=== PATIENT | male | born 1945 | race Caucasian/White ===

== ENCOUNTER → 2016-07-28 | Outpatient (CLI) | payer OTHER, MEDICARE ==
[~2016-07-28] MED LIST: ASPCH81X PO; CLX20 PO; CLX40 PO; INSUINJ4 SQ; ISOS120T5 PO; NTRGSL/4 UT; NVLGI/PEN SQ; OXYC1TAB3 PO; PANT40TA PO; PROP10TA7 PO; PRVC40 PO; RANI300T PO; TOPI100T34 PO
[2016-07-28 14:03] LABS: BLOOD UREA NITROGEN 23 mg/dl (7-18); BUN/CREATININE RATIO 14.1 (10-20)
== END | disposition home or self-care (01) ==
LOC: C.LAB1850 12:08
PROVIDERS: ATTEND Urology
DX: N20.0 Calculus of kidney (principal)

== ENCOUNTER → 2016-08-09 | Outpatient (CLI) | payer OTHER, MEDICARE ==
[~2016-08-09] MED LIST changes: +OPTIRAY 300 IV PRN
--- NOTE | 2016-08-09 14:38 | DIAGNOSTIC IMAGING REPORT ---
IVP CLINICAL HISTORY: Right ureteral calculus. COMPARISON STUDY: CT of the abdomen and pelvis January 16, 2016, IVP February 28, 2016 and KUB June 08, 2016. TECHNIQUE: A production consultant KUB was initially obtained. An IVP was then performed following intravenous injection 100 cc of Optiray 300. FINDINGS: No urinary calculi are identified on the production consultant KUB. There are prostatic calcifications. Both nephrograms are symmetric. There is no hydronephrosis or hydroureter. The left ureter is well-opacified and no abnormalities are identified. The mid to distal right ureter is suboptimally opacified but no upstream dilatation is present. No upper tract filling defects are identified. There is no significant post void residual. IMPRESSION: 1. No urinary calculi identified. 2. No hydronephrosis or hydroureter. 3. Suboptimal opacification of the mid to distal right ureter but no upstream dilatation. Electronically signed by: Barber Finnegan M.D. 08/09/2016 2:36 PM Dictated Date/Time: 08/09/2016 2:33 PM
== END | disposition home or self-care (01) ==
LOC: C.RAD 12:12
PROVIDERS: ATTEND Urology
DX: N20.1 Calculus of ureter (principal)

== ENCOUNTER → 2016-09-19 | Outpatient (CLI) | payer OTHER, MEDICARE ==
[~2016-09-19] MED LIST changes: -OPTIRAY 300 IV PRN
[2016-09-19 10:27] LABS: BASO % 0.4 %; BASO ABS # 0.03 K/uL (0-0.2); COMPLETE YES; EOS % 4.9 %; HEMATOCRIT 46.1 % (42-52); IG% 1.1 %; LYMPH % 19.8 %; LYMPH ABS # 1.49 K/uL (1.2-3.4); MEAN CELL VOLUME 93.1 fL (80-100); MEAN CORPUSCULAR HEMOGLOBIN 32.3 pg (25-34); MEAN CORPUSCULAR HGB CONC 34.7 g/dl (32-36); MEAN PLATELET VOLUME 10.9 fL (7.4-10.4); MONO % 7.6 %; NEUT % 66.2 %; PLATELET COUNT 190 K/uL (130-400); RED BLOOD COUNT 4.95 M/uL (4.7-6.1); WHITE BLOOD COUNT 7.53 K/uL (4.8-10.8)
[2016-09-19 10:39] LABS: ALT/SGPT 26 U/L (12-78); AST/SGOT 12 U/L (15-37); BLOOD UREA NITROGEN 18 mg/dl (7-18); BUN/CREATININE RATIO 11.4 (10-20); CALCIUM 8.7 mg/dl (8.5-10.1); CARBON DIOXIDE 24 mmol/L (21-32); CHLORIDE 108 mmol/L (98-107); CHOLESTEROL 143 mg/dl (0-200); GLUCOSE 150 mg/dl (70-99); SODIUM 140 mmol/L (136-145); TRIGLYCERIDES 170 mg/dl (0-150); VERY LOW DENSITY LIPOPROT CALC 34 mg/dl
[2016-09-19 10:41] LABS: CHOLESTEROL/HDL RATIO 4.2; HDL CHOLESTEROL 34 mg/dl; LDL CHOLESTEROL CALCULATED 75 mg/dl
[2016-09-19 10:44] LABS: ESTIMATED AVERAGE GLUCOSE 151 mg/dl; HA1C FLAG Normal (Normal)
[2016-09-19 11:06] LABS: RATIO 14.2 mcg/mg (0-30.0)
== END | disposition home or self-care (01) ==
LOC: C.LAB1850 09:01
PROVIDERS: ATTEND Internal Medicine
DX: N18.3 Chronic kidney disease, stage 3 (moderate) (principal); E78.5 Hyperlipidemia, unspecified; E11.21 Type 2 diabetes mellitus with diabetic nephropathy

== ENCOUNTER → 2017-01-02 | Outpatient (CLI) | payer OTHER, MEDICARE ==
[2017-01-02 14:52] LABS: ESTIMATED AVERAGE GLUCOSE 157 mg/dl; HA1C FLAG Normal (Normal)
== END | disposition home or self-care (01) ==
LOC: C.LAB1850 13:44
PROVIDERS: ATTEND Nurse Practitioner Adult Health
DX: E11.49 Type 2 diabetes mellitus with other diabetic neurological complication (principal)

== ENCOUNTER → 2017-05-22 | Outpatient (CLI) | payer OTHER, MEDICARE ==
--- NOTE | 2017-05-22 12:05 | DIAGNOSTIC IMAGING REPORT ---
KUB HISTORY: Follow-up study in a patient with history of ureteral calculus N20.1 Ureteral calculus, [id number] COMPARISON: IVP 08/09/2016, KUB 06/08/2017. FINDINGS: The bowel gas pattern is non-obstructive. There is no organomegaly. The renal shadows are partially obscured by bowel gas. No nephrolithiasis or ureteral calculi identified. No pneumoperitoneum or pneumatosis. No fracture. There are degenerative changes of the spine and hips. IMPRESSION: 1. No definite nephrolithiasis or ureteral calculi identified. 2. Nonobstructive bowel gas pattern. Electronically signed by: Adria Pan M.D. 05/22/2017 12:04 PM Dictated Date/Time: 05/22/2017 12:03 PM
[2017-05-22 12:28] LABS: HEMATOCRIT 52.2 % (42-52); MEAN CELL VOLUME 95.3 fL (80-100); MEAN CORPUSCULAR HEMOGLOBIN 32.1 pg (25-34); MEAN CORPUSCULAR HGB CONC 33.7 g/dl (32-36); MEAN PLATELET VOLUME 11.1 fL (7.4-10.4); PLATELET COUNT 205 K/uL (130-400); RED BLOOD COUNT 5.48 M/uL (4.7-6.1); WHITE BLOOD COUNT 7.04 K/uL (4.8-10.8)
[2017-05-22 12:43] LABS: ESTIMATED AVERAGE GLUCOSE 151 mg/dl; HA1C FLAG Normal (Normal)
[2017-05-22 13:51] LABS: ALT/SGPT 35 U/L (12-78); BLOOD UREA NITROGEN 29 mg/dl (7-18); BUN/CREATININE RATIO 17.5 (10-20); CARBON DIOXIDE 24 mmol/L (21-32); CHLORIDE 110 mmol/L (98-107); CHOLESTEROL 142 mg/dl (0-200); CREATININE 1.63 mg/dl (0.60-1.40); GLUCOSE 188 mg/dl (70-99); POTASSIUM 4.3 mmol/L (3.5-5.1); SODIUM 140 mmol/L (136-145)
[2017-05-22 13:57] LABS: ALKALINE PHOSPHATASE 95 U/L (45-117); AST/SGOT 21 U/L (15-37); CHOLESTEROL/HDL RATIO 4.9; HDL CHOLESTEROL 29 mg/dl; LDL CHOLESTEROL CALCULATED 40 mg/dl; TRIGLYCERIDES 364 mg/dl (0-150); VERY LOW DENSITY LIPOPROT CALC 73 mg/dl
== END | disposition home or self-care (01) ==
LOC: C.RAD1850 11:21
PROVIDERS: ATTEND Urology
DX: N20.1 Calculus of ureter (principal); E11.49 Type 2 diabetes mellitus with other diabetic neurological complication; E11.21 Type 2 diabetes mellitus with diabetic nephropathy; N18.3 Chronic kidney disease, stage 3 (moderate); Z79.4 Long term (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

== ENCOUNTER → 2017-10-22 | Outpatient (CLI) | payer OTHER, MEDICARE ==
[2017-10-22 12:08] LABS: HEMATOCRIT 48.4 % (42-52); HEMOGLOBIN 16.9 g/dL (14.0-18.0); MEAN CELL VOLUME 93.3 fL (80-100); MEAN CORPUSCULAR HEMOGLOBIN 32.6 pg (25-34); MEAN CORPUSCULAR HGB CONC 34.9 g/dl (32-36); MEAN PLATELET VOLUME 10.8 fL (7.4-10.4); PLATELET COUNT 205 K/uL (130-400); RED CELL DISTRIBUTION WIDTH CV 13.1 % (11.5-14.5); RED CELL DISTRIBUTION WIDTH SD 44.7 fL (36.4-46.3); WHITE BLOOD COUNT 7.49 K/uL (4.8-10.8)
[2017-10-22 12:30] LABS: AST/SGOT 29 U/L (15-37); BLOOD UREA NITROGEN 20 mg/dl (7-18); CALCIUM 8.7 mg/dl (8.5-10.1); CARBON DIOXIDE 27 mmol/L (21-32); CREATININE 1.64 mg/dl (0.60-1.40); GLUCOSE 159 mg/dl (70-99); SODIUM 142 mmol/L (136-145)
[2017-10-22 12:33] LABS: ALT/SGPT 39 U/L (12-78); CHOLESTEROL 142 mg/dl (0-200); LDL CHOLESTEROL CALCULATED 66 mg/dl
== END | disposition home or self-care (01) ==
LOC: C.LAB1850 11:18
PROVIDERS: ATTEND Internal Medicine
DX: E55.9 Vitamin D deficiency, unspecified (principal); E11.49 Type 2 diabetes mellitus with other diabetic neurological complication; E78.5 Hyperlipidemia, unspecified; N18.3 Chronic kidney disease, stage 3 (moderate)

== ENCOUNTER 2017-12-22 17:32 | Observation (INO) | payer OTHER, MEDICARE ==
[2017-12-22] VITALS (7 sets, daily range): BP systolic 115–145; BP diastolic 60–79; PULSE 57–63; TEMP 36.1–36.3; O2SAT 95–96; Ht 175.3 cm; Wt 87.5 kg
[~2017-12-22] VITALS: Ht 175.3 cm; Wt 87.5 kg
[~2017-12-22 17:32] MED LIST changes: +OXYC-737 PO; -OXYC1TAB3 PO
[2017-12-22] MEDS ORDERED: SODIUM CHLORIDE 0.9% 1000ML 1,000 ML IV SCH (17:45)
[2017-12-22] MEDS ORDERED: ERGO500037 PO (17:57)
[2017-12-22] MEDS ORDERED: INSDGIPEN SC (17:57)
--- NOTE | 2017-12-22 17:58 | DIAGNOSTIC IMAGING REPORT ---
CT SCAN OF THE BRAIN WITHOUT IV CONTRAST CLINICAL HISTORY: Strokelike symptoms. COMPARISON STUDY: CT of the brain dated 03/09/2014. TECHNIQUE: Unenhanced axial CT scan of the brain is performed from the vertex to the skull base. A dose lowering technique was utilized adhering to the principles of ALARA. FINDINGS: Brain parenchyma: There are age-related involutional changes noting mild subcortical and periventricular microangiopathic change. There is no hemorrhage, mass effect, or evidence of acute territorial ischemia by CT criteria. Peraza-white matter is preserved. No extra-axial fluid collection is seen. Ventricles, sulci, cisterns: Prominent secondary to involutional change. Intracranial vasculature: There is atherosclerotic calcification of the cavernous carotid and vertebral arteries. Calvarium: Unremarkable. Sinuses and mastoids: There is evidence of previous paranasal sinus surgery. The visualized paranasal sinuses are clear. The mastoid air cells are well pneumatized. Orbits: The bony orbits are grossly intact. IMPRESSION: There is no hemorrhage, mass effect, or evidence of acute territorial ischemia by CT criteria. Electronically signed by: Jonny Zambrano M.D. 12/22/2017 5:57 PM Dictated Date/Time: 12/22/2017 5:55 PM
[2017-12-22] MEDS ORDERED: OPTIRAY 320 IV PRN (18:00)
[2017-12-22 18:03] LABS: ISTAT CREATININE 1.4 mg/dl (0.6-1.3); ISTAT IONIZED CALCIUM 1.21 mmol/l (1.12-1.32); ISTAT POTASSIUM 4.3 mEq/L (3.3-5.0)
--- NOTE | 2017-12-22 18:15 | DIAGNOSTIC IMAGING REPORT ---
CT ANGIOGRAM OF THE BRAIN; CT ANGIOGRAM OF THE NECK CLINICAL HISTORY: Strokelike symptoms. COMPARISON STUDY: Unenhanced CT of the brain dated 12/22/2017. Carotid artery ultrasound dated 01/07/2008. TECHNIQUE: Following the IV administration of 120 of Optiray 320, CT angiogram of the head and neck was performed from the aortic arch to the vertex. Images are reviewed in the axial, sagittal, and coronal planes. 3-D MIPS images are created and assessed. IV contrast was administered without complication. All measurements were calculated based on NASCET criteria. A dose lowering technique was utilized adhering to the principles of ALARA. FINDINGS: Brain parenchyma: There are age-related involutional changes noting mild subcortical and periventricular microangiopathic disease. There is no hemorrhage, mass effect, or evidence of acute territorial ischemia by CT criteria. There is no evidence of enhancing mass lesion on the angiogram phase images. The ventricles, sulci, and cisterns are prominent second or to involutional change. Peraza-white matter differentiation is preserved. No extra-axial fluid collection is seen. Thoracic aorta: There is mild atherosclerotic calcification of the thoracic aorta. Visualized portions of the thoracic aorta are normal in caliber. The aortic arch demonstrates standard 3-vessel anatomy. Right carotid arterial system: The right common carotid artery is widely patent, as are the right internal and external carotid arteries. Atherosclerotic calcification is noted in the carotid bulb. Left carotid arterial system: The left common carotid artery is widely patent, as are the left internal and external carotid arteries. Mild atherosclerotic calcification is noted in the carotid bulb. Vertebral arteries: The vertebral arteries are widely patent and codominant. Subclavian arteries: Widely patent bilaterally. Intracranial vasculature: There is mild atherosclerotic calcification of the cavernous carotid arteries. The internal carotid arteries are patent at the skull base, as are the anterior and middle cerebral arteries bilaterally. The vertebrobasilar system and posterior cerebral arteries are widely patent. The vertebral arteries are codominant. There is no aneurysm, high-grade stenosis, or focal vessel cut off seen throughout the intracranial circulation. Jugular veins: Patent bilaterally. Dural sinuses: Patent. Lung apices: Costophrenic granulomas are noted in the upper lobes. There are calcified mediastinal and hilar lymph nodes. Soft tissues: The visualized pharyngeal soft tissues are normal in appearance noting angiographic phase technique. The oropharyngeal airway appears widely patent. The salivary and thyroid glands are normal in appearance. No cervical lymphadenopathy is seen. Skeletal structures: The Skeletal structures are osteopenic. The calvarium is normal in appearance. The cervical spine appears intact noting multilevel spondylosis. Orbits: The bony orbits are intact. Orbital contents are normal in appearance. Sinuses and mastoids: There is evidence of previous paranasal sinus surgery. The paranasal sinuses are clear. The mastoid air cells are well pneumatized. IMPRESSION: 1. There is no hemorrhage, mass effect, or evidence of acute territorial ischemia by CT criteria. 2. Unremarkable CT angiogram of the brain. 3. Unremarkable CT angiogram of the neck. Electronically signed by: Jonny Zambrano M.D. 12/22/2017 6:14 PM Dictated Date/Time: 12/22/2017 6:03 PM
[2017-12-22 18:23] LABS: BASO % 0.4 %; BASO ABS # 0.03 K/uL (0-0.2); EOS % 4.1 %; EOS ABS # 0.28 K/uL (0-0.5); HEMATOCRIT 47.2 % (42-52); HEMOGLOBIN 16.3 g/dL (14.0-18.0); IG# 0.09 K/uL (0.00-0.02); LYMPH % 17.2 %; LYMPH ABS # 1.18 K/uL (1.2-3.4); MEAN CELL VOLUME 94.2 fL (80-100); MEAN CORPUSCULAR HEMOGLOBIN 32.5 pg (25-34); MEAN CORPUSCULAR HGB CONC 34.5 g/dl (32-36); MEAN PLATELET VOLUME 11.2 fL (7.4-10.4); MONO % 7.9 %; MONO ABS # 0.54 K/uL (0.11-0.59); NEUT % 69.1 %; NEUT ABS # 4.75 K/uL (1.4-6.5); PLATELET COUNT 190 K/uL (130-400); RED CELL DISTRIBUTION WIDTH CV 13.1 % (11.5-14.5); RED CELL DISTRIBUTION WIDTH SD 44.8 fL (36.4-46.3); WHITE BLOOD COUNT 6.87 K/uL (4.8-10.8)
--- NOTE | 2017-12-22 18:25 | DIAGNOSTIC IMAGING REPORT ---
CT ANGIOGRAM OF THE CHEST COMBO CLINICAL HISTORY: Dizziness. COMPARISON STUDY: Chest x-ray dated 01/19/2016. Chest CT dated 11/11/2010. TECHNIQUE: Before and following the IV administration of 120 cc of Optiray 320, CT angiogram of the chest was performed from the thoracic inlet to the upper abdomen utilizing the dissection protocol. Images are reviewed in the axial, sagittal, and coronal planes. 3-D MIPS images are created and assessed. IV contrast was administered without complication. A dose lowering technique was utilized adhering to the principles of ALARA. The examination is degraded by motion artifact. The examination is also degraded by streak artifact from the arms which could not be elevated above the chest. CT DOSE: 2572.34 mGy.cm FINDINGS: Thyroid: Imaged portions of the thyroid gland are normal in size and attenuation. Thoracic aorta: No intramural hematoma is seen on the unenhanced series. There is mild atherosclerotic calcification of the thoracic aorta, which is normal in caliber and demonstrates standard 3-vessel arch anatomy. No dissection is seen. The arch vessels are widely patent. Pulmonary vasculature: The pulmonary trunk is normal in caliber. There are no filling defects identified in the main, lobar, or segmental pulmonary arteries to indicate pulmonary embolus. Heart: The heart is enlarged and there is trace pericardial fluid. The coronary arteries are densely calcified. Lungs and pleural spaces: Evaluation of lung parenchyma is degraded by motion artifact. No airspace consolidation or pleural effusion is seen. There are numerous scattered calcified granulomas. Dependent atelectasis is observed. The trachea and central airways are clear. There is a 7 mm pulmonary nodule at the left lung base seen on image #216. This is unchanged dating back to 2010 and of doubtful significance. Mediastinum: There is no mediastinal lymphadenopathy. Calcification containing mediastinal nodes are identified. Mariana: There are calcified hilar nodes. No hilar adenopathy is seen. Axillae: There is no axillary lymphadenopathy. Upper abdomen: There is a small hiatal hernia. Numerous calcified splenic granulomas are noted. Calcified hepatic granulomas are also seen. Skeletal structures: The skeletal structures are osteopenic. No lytic or blastic bony lesions are seen. IMPRESSION: 1. Streak and motion compromised examination. 2. There is no aneurysm or dissection identified involving the thoracic aorta. 3. There is no evidence of pulmonary embolus in the main, lobar, or segmental pulmonary arteries. 4. There is no airspace consolidation or pleural effusion. 5. Cardiomegaly. 6. Additional findings as above. Electronically signed by: Jonny Zambrano M.D. 12/22/2017 6:23 PM Dictated Date/Time: 12/22/2017 6:14 PM
[2017-12-22 18:34] LABS: PTT PATIENT 24.5 SECONDS (21.0-31.0)
[2017-12-22 18:40] LABS: BLOOD UREA NITROGEN 20 mg/dl (7-18); CALCIUM 8.3 mg/dl (8.5-10.1); CARBON DIOXIDE 25 mmol/L (21-32); CKMB < 1.0 ng/ml (0.5-3.6); CREATININE 1.53 mg/dl (0.60-1.40); GLUCOSE 156 mg/dl (70-99); POTASSIUM 4.2 mmol/L (3.5-5.1); SODIUM 139 mmol/L (136-145)
[2017-12-22] MEDS ORDERED: PROCHLORPERAZINE 5 MG/ML 2 ML VIAL IV STA (19:06)
[2017-12-22] MEDS ORDERED: DiphenhydrAMINE HCL 50 MG/ML VIAL IV STA (19:06)
[2017-12-22] MEDS ORDERED: PHARMACIST DISCHARGE MED REC CONSULT PRN (19:30)
--- NOTE | 2017-12-22 19:36 | History and Physical ---
History & Physical Date & Time of Service: Dec 22, 2017 at 19:20 Chief Complaint: Dizzy/Lightheaded Primary Care Physician: Fox Moran M.D. History of Present Illness 72 y/o M Hx CAD, CVA, complex migraines, DM II, HTN, HPL, CKD III. He developed acute onset of a headache, L weakness/numbness, and L CP. He states he can develop acute weakness with a migraine. He also states, however, that in 2010 he had similar acute symptoms and was subsequently diagnosed with an IA and a CVA. His L sided weakness is more pronounced in his LLE, numbness to light touch is apparent. CP is focal and limited to the L upper chest. He denies SOB, N/V or diaphoresis. His headache is described as L sided, sharp and severe. CT angiography of the head and neck do not reveal any acute abnormalities. A dissection study was normal, and EKG morphology is unchanged. While we do have documentation of single branch vessel occlusion on a cath in 2009, current imaging does not support a history of a CVA. Past Medical/Surgical History 1) HTN 2) HPL 3) CVA - reported - more likely a TIA in 2009 4) DM II 5) CKD III - baseline creatinine approximately 1.8 6) Complex migraines 7) Colonic polyps 8) GERD 9) CAD - IA 2009 - cath indicated occlusive branch vessel disease, diffuse nonocclusive disease including 50% LAD stenosis. 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 drink Smoking Status: Never Smoker Drug Use: none Marital Status: Housing status: lives with family Occupational Status: retired Immunizations History of Influenza Vaccine: No Influenza Vaccine Date: Apr 17, 2007 History of Tetanus Vaccine?: Unknown Tetanus Immunization Date: November 11, 2008 History of Pneumococcal: Yes Pneumococcal Date: Nov 17, 2011 History of Hepatitis B Vaccine: Unknown Hepatitis Immunization Date: November 12, 2003 Allergies Coded Allergies: Morphine (Verified Adverse Reaction, Severe, "STOPS MY HEART", 12/22/17) Trazodone (Verified Adverse Reaction, Intermediate, GI UPSET, 12/22/17) Diazepam (Verified Adverse Reaction, Mild, HALLUCINATES, 12/22/17) Propoxyphene (Verified Adverse Reaction, Mild, DRUG INTOLERANCE, 12/22/17) Home Medications Scheduled Aspirin (Aspirin Chewable), 81 MG PO 3XWK Citalopram (Citalopram Hydrobromide), 40 MG PO 4XWK Citalopram (Citalopram Hydrobromide), 20 MG PO 3XWK Ergocalciferol (Vitamin D 05430 Unit), 50,000 UNIT PO WK Insulin Aspart (Novolog Flexpen), Unknown Dose SQ BIDM Insulin Glargine (Lantus Solostar), 35 UNITS SC QAM Isosorbide Mononitrate (Imdur Ext Rel), 120 MG PO QAM Nitroglycerin (Nitrostat), 0.4 MG UT PRN Pantoprazole Sodium (Protonix), 40 MG PO QAM Pravastatin Sod (Pravastatin Sodium), 40 MG PO HS Propranolol (Inderal), 10 MG PO BID Ranitidine Hcl (Zantac), 300 MG PO HS Topiramate (Topamax), 100 MG PO BID Review of Systems Constitutional: No fever, No chills, No sweats Eyes: No worsening of vision ENT: No hearing loss, No unusual epistaxis, No nasal symptoms Respiratory: No cough, No wheezing Cardiovascular: + chest pain, No orthopnea, No PND Abdomen: No pain, No nausea, No vomiting Musculoskeletal: No joint pain Genitourinary - Male: No hematuria Neurologic: + weakness (L sided weakness and numbness - more pronounced in LLE - no slurred speech reported), No memory loss Psychiatric: No depression symptoms Endocrine: No fatigue Hematologic / Lymphatic: No abnormal bleeding/bruising Integumentary: No rash Allergic / Immunologic: No environmental allergies Physical Exam Vital Signs Date Time Temp Pulse Resp B/P (MAP) Pulse Ox O2 Delivery O2 Flow Rate FiO2 12/22/17 18:43 58 12 106/69 94 Room Air 12/22/17 18:30 59 12 121/74 97 Room Air 12/22/17 18:17 60 14 128/79 96 12/22/17 18:08 60 12 119/74 94 Room Air 12/22/17 17:50 61 12/22/17 17:47 97 Room Air 12/22/17 17:42 36.4 61 18 115/85 97 Room Air General Appearance: + obese Head: normocephalic Eyes: + pertinent finding (May have mild L ptosis - no significant facial droop ) ENT: normal ENT inspection, hearing grossly normal Neck: supple, no JVD Respiratory/Chest: chest non-tender, lungs clear, normal breath sounds Cardiovascular: regular rate, rhythm, no edema, no gallop Abdomen/GI: normal bowel sounds, non tender, soft Back: normal inspection, no CVA tenderness Extremities/Musculoskelatal: normal inspection, no calf tenderness, normal capillary refill Neurologic/Psych: + pertinent finding (May have mild L ptosis - no significant facial droop - there is a slight L drift and LE strength is significanly impared proximally and distally compared to the R - His coordination on the R is inpaired - both heal/souza, finger/nose - there is numbness to light touch on the L which is more pronounced distally. The pt is fully oriented and his speech is clear. ) Skin: normal color, warm/dry Diagnostics Laboratory Results Results Past 24 Hours Test 12/22/17 17:05 12/22/17 17:42 12/22/17 17:45 12/22/17 18:01 Range/Units White Blood Count 6.87 4.8-10.8 K/uL Red Blood Count 5.01 4.7-6.1 M/uL Hemoglobin 16.3 14.0-18.0 g/dL Hematocrit 47.2 42-52 % Mean Corpuscular Volume 94.2 80-100 fL Mean Corpuscular Hemoglobin 32.5 25-34 pg Mean Corpuscular Hemoglobin Concent 34.5 32-36 g/dl Platelet Count 190 130-400 K/uL Mean Platelet Volume 11.2 7.4-10.4 fL Neutrophils (%) (Auto) 69.1 % Lymphocytes (%) (Auto) 17.2 % Monocytes (%) (Auto) 7.9 % Eosinophils (%) (Auto) 4.1 % Basophils (%) (Auto) 0.4 % Neutrophils # (Auto) 4.75 1.4-6.5 K/uL Lymphocytes # (Auto) 1.18 1.2-3.4 K/uL Monocytes # (Auto) 0.54 0.11-0.59 K/uL Eosinophils # (Auto) 0.28 0-0.5 K/uL Basophils # (Auto) 0.03 0-0.2 K/uL RDW Standard Deviation 44.8 36.4-46.3 fL RDW Coefficient of Variation 13.1 11.5-14.5 % Immature Granulocyte % (Auto) 1.3 % Immature Granulocyte # (Auto) 0.09 0.00-0.02 K/uL Prothrombin Time 10.3 9.0-12.0 SECONDS Prothromb Time International Ratio 1.0 0.9-1.1 Activated Partial Thromboplast Time 24.5 21.0-31.0 SECONDS Partial Thromboplastin Ratio 0.9 Sodium Level 139 136-145 mmol/L Potassium Level 4.2 3.5-5.1 mmol/L Chloride Level 108 98-107 mmol/L Carbon Dioxide Level 25 21-32 mmol/L Anion Gap 6.0 14.0 16-25 mmol/L Blood Urea Nitrogen 20 7-18 mg/dl Creatinine 1.53 0.60-1.40 mg/dl Est Creatinine Clear Calc Drug Dose 51.5 ml/min Estimated GFR () 52.3 Estimated GFR (Non- 45.1 BUN/Creatinine Ratio 13.1 10-20 Random Glucose 156 70-99 mg/dl Calcium Level 8.3 8.5-10.1 mg/dl Magnesium Level 2.2 1.8-2.4 mg/dl Total Creatine Kinase 47 39-308 U/L Creatine Kinase MB < 1.0 0.5-3.6 ng/ml Creatine Kinase MB Ratio 0-3.0 Troponin I < 0.015 0-0.045 ng/ml Bedside Hemoglobin 16.0 14.0-18.0 g/dl Bedside Hematocrit 47 42-52 % Bedside Sodium 140 135-144 mEq/L Bedside Potassium 4.3 3.3-5.0 mEq/L Bedside Chloride 105 101-112 mEq/L Bedside Total CO2 26 24-31 mEq/l Bedside Blood Urea Nitrogen 21 7-18 mg/dl Bedside Creatinine 1.4 0.6-1.3 mg/dl Bedside Glucose (other) 158 70-99 mg/dl Bedside Ionized Calcium (Kellie) 1.21 1.12-1.32 mmol/l Bedside Troponin I < 0.030 0-0.045 ng/ml Ethyl Alcohol mg/dL < 3.0 0-3 mg/dl Test 12/22/17 18:03 Range/Units Bedside Glucose 145 70-99 mg/dl Diagnostic Radiology CT angiography of the head and neck do not reveal any acute abnormalities. A dissection study was normal as well. EKG Sinus, L axis, Inferior Q wvs and inversions which are not new Impression Assessment and Plan 72 y/o M Hx CAD, CVA, complex migraines, DM II, HTN, HPL, CKD III. He developed acute onset of a headache, L weakness/numbness, and L CP. He states he can develop acute weakness with a migraine. He also states, however, that in 2010 he had similar acute symptoms and was subsequently diagnosed with an IA and a CVA. His L sided weakness is more pronounced in his LLE, numbness to light touch is apparent. CP is focal and limited to the L upper chest. He denies SOB, N/V or diaphoresis. His headache is described as L sided, sharp and severe. 1) L deficits which persist - headache which persists - no evidence of evolving CVA or previous CVA on imaging so that this more likely represent a complex migraine. We will treat his pain and will consider steroid administration. He received Benadryl in the ER. He is assigned to telemetry with neurochecks. We have increased his ASA to 325 and increased his Statin dose. A neurology consult is pending as is an MRI for AM. 2) CP, CAD - serial enzymes requested. Cont ASA and a Statin. Will consider full-dose anticoagulation with a trop elevation. There are no acute EKG changes on admission and CP has been focal and persistent. 3) DM II - placed on a SS 4) CKD III - creat is at or below baseline Full code - Heparin prophylaxis Total time for this admit including review of labs, meds, imaging, records - discussion with pt and ER attending - 40 min Resuscitation Status VTE Prophylaxis Will order VTE Prophylaxis: Yes
[2017-12-22] MEDS ORDERED: NITROGLYCERIN 0.4 MG SL PER TAB CHARGE SL PRN (19:45)
[2017-12-22] MEDS ORDERED: ACETAMINOPHEN 325 MG TAB PO PRN (19:45)
[2017-12-22] MEDS ORDERED: MAGNESIUM HYDROXIDE SUSP 30 ML UDC PO PRN (19:45)
[2017-12-22] MEDS ORDERED: ONDANSETRON INJ 2 MG/ML 2 ML VIAL IV PRN (19:45)
[2017-12-22] MEDS ORDERED: ALUMINUM/MAGNESIUM/SIMETH (MAALOX MAX) 30 ML UDC PO PRN (19:45)
[2017-12-22] MEDS ORDERED: POLYETHYLENE (MIRALAX) 17 GM PACK PO PRN (19:45)
[2017-12-22] MEDS ORDERED: TRAMADOL HCL 50 MG TAB PO STA (20:14)
--- NOTE | 2017-12-22 20:22 | EMERGENCY ROOM VISIT NOTE ---
History Report prepared by Ceci: Alfredo Quiroz Under the Supervision of: Dr. Richard Stokes First contact with patient: 17:36 Chief Complaint: DIZZY Stated Complaint: DIZZY/LIGHTHEADED History of Present Illness The patient is a 72 year old male who presents to the Emergency Room with complaints of persistent left sided numbness that began at 1600. The patient states that he was sitting in the yard playing with a puppy around 1600. He reports that he stood up then suddenly became lightheaded and "everything became fuzzy". The patient states he did not fall or lose consciousness. He reports that he managed to walk into the house when he developed left sided chest pain. The patient states that it feels as if someone hit him in the chest. He notes he has been experiencing pain with breathing. The patient states that it feels as if "my head is in a clamp". He states that the whole left side of his body is numb. He denies any headache or lower extremity pain. Per nursing, the patient was given 0.4 mg of Nitroglycerin and 324 mg of Aspirin. Per patient's report, he had similar symptoms in 2006 when he had a complex migraine. The patient reports he was hospitalized for his symptoms due to a stroke and myocardial infarction. The patient reports a history of diabetes. He reports that he does take a blood thinner. The patient denies a current history of alcohol or tobacco use. Source of History: patient Onset: 1600 Position: other (left side of body) Quality: numbness Timing: other (persistent) Modifying Factors (Relieving): other (Nitroglycerin, Aspirin) Associated Symptoms: + chest pain, No LOC, No headache Note: Associated symptoms: "head feels like in a clamp", lightheaded, pain with breathing Denies: lower extremity pain Review of Systems See HPI for pertinent positives and negatives. A total of ten systems were reviewed and were otherwise negative. Past Medical & Surgical Medical Problems: (1) Benign essential hypertension (2) Coronary artery disease (3) Diabetes mellitus type 2 (4) Gastroesophageal reflux disease (5) Migraines, neuralgic (6) Neurological deficit present Family History Diabetes mellitus FH: cancer FH: heart disease Social History Smoking Status: Former Smoker Alcohol Use: occasionally Drug Use: none Marital Status: Occupation Status: retired Current/Historical Medications Scheduled Aspirin (Aspirin Chewable), 81 MG PO 3XWK Citalopram (Citalopram Hydrobromide), 40 MG PO 4XWK Citalopram (Citalopram Hydrobromide), 20 MG PO 3XWK Ergocalciferol (Vitamin D 04723 Unit), 50,000 UNIT PO WK Insulin Aspart (Novolog Flexpen), Unknown Dose SQ BIDM Insulin Glargine (Lantus Solostar), 35 UNITS SC QAM Isosorbide Mononitrate (Imdur Ext Rel), 120 MG PO QAM Nitroglycerin (Nitrostat), 0.4 MG UT PRN Pantoprazole Sodium (Protonix), 40 MG PO QAM Pravastatin Sod (Pravastatin Sodium), 40 MG PO HS Propranolol (Inderal), 10 MG PO BID Ranitidine Hcl (Zantac), 300 MG PO HS Topiramate (Topamax), 100 MG PO BID Allergies Coded Allergies: Morphine (Verified Adverse Reaction, Severe, "STOPS MY HEART", 12/22/17) Trazodone (Verified Adverse Reaction, Intermediate, GI UPSET, 12/22/17) Diazepam (Verified Adverse Reaction, Mild, HALLUCINATES, 12/22/17) Propoxyphene (Verified Adverse Reaction, Mild, DRUG INTOLERANCE, 12/22/17) Physical Exam Vital Signs Date Time Temp Pulse Resp B/P (MAP) Pulse Ox O2 Delivery O2 Flow Rate FiO2 12/22/17 19:53 60 18 116/79 94 Room Air 12/22/17 19:41 61 12/22/17 18:43 58 12 106/69 94 Room Air 12/22/17 18:30 59 12 121/74 97 Room Air 12/22/17 18:17 60 14 128/79 96 12/22/17 18:08 60 12 119/74 94 Room Air 12/22/17 17:50 61 12/22/17 17:47 97 Room Air 12/22/17 17:42 36.4 61 18 115/85 97 Room Air Physical Exam GENERAL: Awake, alert, well appearing, no distress HENT: Normocephalic, atraumatic. TM's normal. Oropharynx unremarkable. EYES: PERRL. EOMI. Normal conjunctiva. Sclera non-icteric. NECK: Supple. No nuchal rigidity. FROM. No bruit. RESPIRATORY: Breath sounds equal. No wheezes. No rhonchi. Normal respiratory effort. CARDIAC: Normal rate. Regular rhythm. Left chest wall tenderness appreciated. No JVD. GI: Soft, non distended. No tenderness to palpation. No rebound or guarding. No masses. RECTAL: Deferred. MUSCULOSKELETAL: Unremarkable. No edema. No discoloration. Gross motor strength symmetric. NEURO: No facial droop. No tongue deviation. Patient did report some left sided entire face numbness compared to the right. Normal sensorium. 4/5 weakness of left lower extremity. Speech normal. No pronator drift. SKIN: No rash or jaundice noted. LYMPH: No adenopathy. Medical Decision & Procedures ER Provider Diagnostic Interpretation: Radiology results as stated below per my review and radiologist interpretation: CT SCAN OF THE BRAIN WITHOUT IV CONTRAST CLINICAL HISTORY: Strokelike symptoms. COMPARISON STUDY: CT of the brain dated 03/09/2014. TECHNIQUE: Unenhanced axial CT scan of the brain is performed from the vertex to the skull base. A dose lowering technique was utilized adhering to the principles of ALARA. FINDINGS: Brain parenchyma: There are age-related involutional changes noting mild subcortical and periventricular microangiopathic change. There is no hemorrhage, mass effect, or evidence of acute territorial ischemia by CT criteria. Peraza-white matter is preserved. No extra-axial fluid collection is seen. Ventricles, sulci, cisterns: Prominent secondary to involutional change. Intracranial vasculature: There is atherosclerotic calcification of the cavernous carotid and vertebral arteries. Calvarium: Unremarkable. Sinuses and mastoids: There is evidence of previous paranasal sinus surgery. The visualized paranasal sinuses are clear. The mastoid air cells are well pneumatized. Orbits: The bony orbits are grossly intact. IMPRESSION: There is no hemorrhage, mass effect, or evidence of acute territorial ischemia by CT criteria. Electronically signed by: Jonny Zambrano M.D. 12/22/2017 5:57 PM Dictated Date/Time: 12/22/2017 5:[address] ANGIOGRAM OF THE CHEST COMBO CLINICAL HISTORY: Dizziness. COMPARISON STUDY: Chest x-ray dated 01/19/2016. Chest CT dated 11/11/2010. TECHNIQUE: Before and following the IV administration of 120 cc of Optiray 320, CT angiogram of the chest was performed from the thoracic inlet to the upper abdomen utilizing the dissection protocol. Images are reviewed in the axial, sagittal, and coronal planes. 3-D MIPS images are created and assessed. IV contrast was administered without complication. A dose lowering technique was utilized adhering to the principles of ALARA. The examination is degraded by motion artifact. The examination is also degraded by streak artifact from the arms which could not be elevated above the chest. CT DOSE: 2572.34 mGy.cm FINDINGS: Thyroid: Imaged portions of the thyroid gland are normal in size and attenuation. Thoracic aorta: No intramural hematoma is seen on the unenhanced series. There is mild atherosclerotic calcification of the thoracic aorta, which is normal in caliber and demonstrates standard 3-vessel arch anatomy. No dissection is seen. The arch vessels are widely patent. Pulmonary vasculature: The pulmonary trunk is normal in caliber. There are no filling defects identified in the main, lobar, or segmental pulmonary arteries to indicate pulmonary embolus. Heart: The heart is enlarged and there is trace pericardial fluid. The coronary arteries are densely calcified. Lungs and pleural spaces: Evaluation of lung parenchyma is degraded by motion artifact. No airspace consolidation or pleural effusion is seen. There are numerous scattered calcified granulomas. Dependent atelectasis is observed. The trachea and central airways are clear. There is a 7 mm pulmonary nodule at the left lung base seen on image #216. This is unchanged dating back to 2011 and of doubtful significance. Mediastinum: There is no mediastinal lymphadenopathy. Calcification containing mediastinal nodes are identified. Mariana: There are calcified hilar nodes. No hilar adenopathy is seen. Axillae: There is no axillary lymphadenopathy. Upper abdomen: There is a small hiatal hernia. Numerous calcified splenic granulomas are noted. Calcified hepatic granulomas are also seen. Skeletal structures: The skeletal structures are osteopenic. No lytic or blastic bony lesions are seen. IMPRESSION: 1. Streak and motion compromised examination. 2. There is no aneurysm or dissection identified involving the thoracic aorta. 3. There is no evidence of pulmonary embolus in the main, lobar, or segmental pulmonary arteries. 4. There is no airspace consolidation or pleural effusion. 5. Cardiomegaly. 6. Additional findings as above. Electronically signed by: Jonny Zambrano M.D. 12/22/2017 6:23 PM Dictated Date/Time: 12/22/2017 6:[address] ANGIOGRAM OF THE BRAIN; CT ANGIOGRAM OF THE NECK CLINICAL HISTORY: Strokelike symptoms. COMPARISON STUDY: Unenhanced CT of the brain dated 12/22/2017. Carotid artery ultrasound dated 01/07/2008. TECHNIQUE: Following the IV administration of 120 of Optiray 320, CT angiogram of the head and neck was performed from the aortic arch to the vertex. Images are reviewed in the axial, sagittal, and coronal planes. 3-D MIPS images are created and assessed. IV contrast was administered without complication. All measurements were calculated based on NASCET criteria. A dose lowering technique was utilized adhering to the principles of ALARA. FINDINGS: Brain parenchyma: There are age-related involutional changes noting mild subcortical and periventricular microangiopathic disease. There is no hemorrhage, mass effect, or evidence of acute territorial ischemia by CT criteria. There is no evidence of enhancing mass lesion on the angiogram phase images. The ventricles, sulci, and cisterns are prominent second or to involutional change. Peraza-white matter differentiation is preserved. No extra-axial fluid collection is seen. Thoracic aorta: There is mild atherosclerotic calcification of the thoracic aorta. Visualized portions of the thoracic aorta are normal in caliber. The aortic arch demonstrates standard 3-vessel anatomy. Right carotid arterial system: The right common carotid artery is widely patent, as are the right internal and external carotid arteries. Atherosclerotic calcification is noted in the carotid bulb. Left carotid arterial system: The left common carotid artery is widely patent, as are the left internal and external carotid arteries. Mild atherosclerotic calcification is noted in the carotid bulb. Vertebral arteries: The vertebral arteries are widely patent and codominant. Subclavian arteries: Widely patent bilaterally. Intracranial vasculature: There is mild atherosclerotic calcification of the cavernous carotid arteries. The internal carotid arteries are patent at the skull base, as are the anterior and middle cerebral arteries bilaterally. The vertebrobasilar system and posterior cerebral arteries are widely patent. The vertebral arteries are codominant. There is no aneurysm, high-grade stenosis, or focal vessel cut off seen throughout the intracranial circulation. Jugular veins: Patent bilaterally. Dural sinuses: Patent. Lung apices: Costophrenic granulomas are noted in the upper lobes. There are calcified mediastinal and hilar lymph nodes. Soft tissues: The visualized pharyngeal soft tissues are normal in appearance noting angiographic phase technique. The oropharyngeal airway appears widely patent. The salivary and thyroid glands are normal in appearance. No cervical lymphadenopathy is seen. Skeletal structures: The Skeletal structures are osteopenic. The calvarium is normal in appearance. The cervical spine appears intact noting multilevel spondylosis. Orbits: The bony orbits are intact. Orbital contents are normal in appearance. Sinuses and mastoids: There is evidence of previous paranasal sinus surgery. The paranasal sinuses are clear. The mastoid air cells are well pneumatized. IMPRESSION: 1. There is no hemorrhage, mass effect, or evidence of acute territorial ischemia by CT criteria. 2. Unremarkable CT angiogram of the brain. 3. Unremarkable CT angiogram of the neck. Electronically signed by: Jonny Zambrano M.D. 12/22/2017 6:14 PM Dictated Date/Time: 12/22/2017 6:[address] ANGIOGRAM OF THE BRAIN; CT ANGIOGRAM OF THE NECK CLINICAL HISTORY: Strokelike symptoms. COMPARISON STUDY: Unenhanced CT of the brain dated 12/22/2017. Carotid artery ultrasound dated 01/07/2008. TECHNIQUE: Following the IV administration of 120 of Optiray 320, CT angiogram of the head and neck was performed from the aortic arch to the vertex. Images are reviewed in the axial, sagittal, and coronal planes. 3-D MIPS images are created and assessed. IV contrast was administered without complication. All measurements were calculated based on NASCET criteria. A dose lowering technique was utilized adhering to the principles of ALARA. FINDINGS: Brain parenchyma: There are age-related involutional changes noting mild subcortical and periventricular microangiopathic disease. There is no hemorrhage, mass effect, or evidence of acute territorial ischemia by CT criteria. There is no evidence of enhancing mass lesion on the angiogram phase images. The ventricles, sulci, and cisterns are prominent second or to involutional change. Peraza-white matter differentiation is preserved. No extra-axial fluid collection is seen. Thoracic aorta: There is mild atherosclerotic calcification of the thoracic aorta. Visualized portions of the thoracic aorta are normal in caliber. The aortic arch demonstrates standard 3-vessel anatomy. Right carotid arterial system: The right common carotid artery is widely patent, as are the right internal and external carotid arteries. Atherosclerotic calcification is noted in the carotid bulb. Left carotid arterial system: The left common carotid artery is widely patent, as are the left internal and external carotid arteries. Mild atherosclerotic calcification is noted in the carotid bulb. Vertebral arteries: The vertebral arteries are widely patent and codominant. Subclavian arteries: Widely patent bilaterally. Intracranial vasculature: There is mild atherosclerotic calcification of the cavernous carotid arteries. The internal carotid arteries are patent at the skull base, as are the anterior and middle cerebral arteries bilaterally. The vertebrobasilar system and posterior cerebral arteries are widely patent. The vertebral arteries are codominant. There is no aneurysm, high-grade stenosis, or focal vessel cut off seen throughout the intracranial circulation. Jugular veins: Patent bilaterally. Dural sinuses: Patent. Lung apices: Costophrenic granulomas are noted in the upper lobes. There are calcified mediastinal and hilar lymph nodes. Soft tissues: The visualized pharyngeal soft tissues are normal in appearance noting angiographic phase technique. The oropharyngeal airway appears widely patent. The salivary and thyroid glands are normal in appearance. No cervical lymphadenopathy is seen. Skeletal structures: The Skeletal structures are osteopenic. The calvarium is normal in appearance. The cervical spine appears intact noting multilevel spondylosis. Orbits: The bony orbits are intact. Orbital contents are normal in appearance. Sinuses and mastoids: There is evidence of previous paranasal sinus surgery. The paranasal sinuses are clear. The mastoid air cells are well pneumatized. IMPRESSION: 1. There is no hemorrhage, mass effect, or evidence of acute territorial ischemia by CT criteria. 2. Unremarkable CT angiogram of the brain. 3. Unremarkable CT angiogram of the neck. Electronically signed by: Jonny Zambrano M.D. 12/22/2017 6:14 PM Dictated Date/Time: 12/22/2017 6:03 PM Laboratory Results 12/22/17 17:05 Red Blood Count 5.01, Mean Corpuscular Volume 94.2, Mean Corpuscular Hemoglobin 32.5, Mean Corpuscular Hemoglobin Concent 34.5, Mean Platelet Volume 11.2, Neutrophils (%) (Auto) 69.1, Lymphocytes (%) (Auto) 17.2, Monocytes (%) (Auto) 7.9, Eosinophils (%) (Auto) 4.1, Basophils (%) (Auto) 0.4, Neutrophils # (Auto) 4.75, Lymphocytes # (Auto) 1.18, Monocytes # (Auto) 0.54, Eosinophils # (Auto) 0.28, Basophils # (Auto) 0.03 7/7/18 17:05 Test 12/22/17 17:05 12/22/17 17:42 12/22/17 17:45 12/22/17 18:01 White Blood Count 6.87 K/uL (4.8-10.8) Red Blood Count 5.01 M/uL (4.7-6.1) Hemoglobin 16.3 g/dL (14.0-18.0) Hematocrit 47.2 % (42-52) Mean Corpuscular Volume 94.2 fL (80-100) Mean Corpuscular Hemoglobin 32.5 pg (25-34) Mean Corpuscular Hemoglobin Concent 34.5 g/dl (32-36) Platelet Count 190 K/uL (130-400) Mean Platelet Volume 11.2 fL (7.4-10.4) Neutrophils (%) (Auto) 69.1 % Lymphocytes (%) (Auto) 17.2 % Monocytes (%) (Auto) 7.9 % Eosinophils (%) (Auto) 4.1 % Basophils (%) (Auto) 0.4 % Neutrophils # (Auto) 4.75 K/uL (1.4-6.5) Lymphocytes # (Auto) 1.18 K/uL (1.2-3.4) Monocytes # (Auto) 0.54 K/uL (0.11-0.59) Eosinophils # (Auto) 0.28 K/uL (0-0.5) Basophils # (Auto) 0.03 K/uL (0-0.2) RDW Standard Deviation 44.8 fL (36.4-46.3) RDW Coefficient of Variation 13.1 % (11.5-14.5) Immature Granulocyte % (Auto) 1.3 % Immature Granulocyte # (Auto) 0.09 K/uL (0.00-0.02) Prothrombin Time 10.3 SECONDS (9.0-12.0) Prothromb Time International Ratio 1.0 (0.9-1.1) Activated Partial Thromboplast Time 24.5 SECONDS (21.0-31.0) Partial Thromboplastin Ratio 0.9 Est Creatinine Clear Calc Drug Dose 51.5 ml/min Estimated GFR () 52.3 Estimated GFR (Non- 45.1 BUN/Creatinine Ratio 13.1 (10-20) Calcium Level 8.3 mg/dl (8.5-10.1) Magnesium Level 2.2 mg/dl (1.8-2.4) Total Creatine Kinase 47 U/L (39-308) Creatine Kinase MB < 1.0 ng/ml (0.5-3.6) Creatine Kinase MB Ratio (0-3.0) Troponin I < 0.015 ng/ml (0-0.045) Bedside Hemoglobin 16.0 g/dl (14.0-18.0) Bedside Hematocrit 47 % (42-52) Bedside Sodium 140 mEq/L (135-144) Bedside Potassium 4.3 mEq/L (3.3-5.0) Bedside Chloride 105 mEq/L (101-112) Bedside Total CO2 26 mEq/l (24-31) Anion Gap 14.0 mmol/L (16-25) Bedside Blood Urea Nitrogen 21 mg/dl (7-18) Bedside Creatinine 1.4 mg/dl (0.6-1.3) Bedside Glucose (other) 158 mg/dl (70-99) Bedside Ionized Calcium (Kellie) 1.21 mmol/l (1.12-1.32) Bedside Troponin I < 0.030 ng/ml (0-0.045) Ethyl Alcohol mg/dL < 3.0 mg/dl (0-3) Test 12/22/17 18:03 Bedside Glucose 145 mg/dl (70-99) Laboratory results reviewed by me Medications Administered Medications (Trade) Dose Ordered Sig/Jocelyn Route Start Time Stop Time Status Last Admin Dose Admin Sodium Chloride 1,000 ml @ 50 mls/hr Q20H IV 12/22/17 17:45 01/21/18 17:44 12/22/17 17:45 50 MLS/HR Prochlorperazine Edisylate (Compazine Inj) 10 mg NOW STAT IV 12/22/17 19:06 12/22/17 19:07 DC 12/22/17 19:35 10 MG Diphenhydramine HCl (Benadryl Inj) 25 mg NOW STAT IV 12/22/17 19:06 12/22/17 19:07 DC 12/22/17 19:36 25 MG ECG Per My Interpretation Indication: chest pain Rate (beats per minute): 60 Rhythm: normal sinus Findings: T-wave inversion (nonspecific in Lead III), left axis deviation, other (No acutes STS elevation) Comparison ECG Date: 01/19/16 Change: no significant change ED Course 1736: The patient was evaluated in room B10. A complete history and physical exam was performed. 1744: Ordered Sodium Chloride 1000 ml @ 50 mls/hr IV. 1814: I reevaluated the patient and he is experiencing similar symptom. Hi is in the room now who reports his symptoms started at 1559. His blood pressure was low. 1857: I discussed the patients case with Dr. Ortega, [facility]. He recommends an MRI and admission. He reports the patient should follow up in the morning. 1902: I updated the patient and on the results and MRI. I discussed the treatment plan, which he agrees to. The patient will be further evaluated. 1904: I discussed the patients case with Dr. Schuster, [facility] Hospitalist. She understands the patients condition and agrees to accept the patient. The patient will be evaluated for further management and care. Medical Decision stroke, TIA, complex migraine, acute coronary syndrome, aortic dissection, chest wall injury, or other possible metabolic or infectious etiologies. EKG and troponin shows no acute ischemic changes. Reproducible with left-sided chest wall tenderness. CT angiogram of the chest did not reveal acute fractures or PE or dissection. No evidence of acute pneumonia. Believe is likely musculoskeletal in nature. Patient does endorse some head pressure symptoms with questionably onset between 3 and 4:00 with some left-sided numbness. Stroke alert. CT and CT angiogram of the head and neck and chest without acute findings. Tele-stroke completed. NIH of 1-2 for some slight left -sided numbness and slight weakness of the left lower leg. Review of records appears he had a similar presentation including with chest pain about 11 years ago and is. Will admit for MRI to exclude occult stroke as he is little bit dizzy and fluid rehydrate him. We will give him comes into Benadryl to see if this helps his head pressure situation and resolve some of the symptoms. Believe also admission for serial troponins is also reasonable given his age and risk factors. He is alert and talking without significant deficits and the time course is somewhat fuzzy as to his last known well, in consultation with neurology do not feel TPA as clinically indicated. Medication Reconcilliation Current Medication List: was personally reviewed by me Blood Pressure Screening Patient's blood pressure: Normal blood pressure Consults Time Called: 1858 Consulting Physician: Dr. Ortega, [facility] Returned Call: 1857 I discussed the patients case with Dr. Ortega, [facility]. He recommends an MRI and admission. He reports the patient should follow up in the morning. Additional Consults: Time Called: 1904 Consulted Physician: Dr. Schuster, [facility] Hospitalist Returned Call: 1904 Additional Comments: 1904: I discussed the patients case with Dr. Schuster, [facility] Hospitalist. She understands the patients condition and agrees to accept the patient. The patient will be evaluated for further management and care. Impression Primary Impression: Complicated migraine Additional Impressions: Left sided numbness Chest pain Scribe Attestation The scribe's documentation has been prepared under my direction and personally reviewed by me in its entirety. I confirm that the note above accurately reflects all work, treatment, procedures, and medical decision making performed by me. Departure Information Dispostion Being Evaluated By Hospitalist Referrals Fox Moran M.D. (PCP) Patient Instructions My [facility] Stroke History Time Last Known Well 15:59 Stroke t-PA Criteria Reviewed Does NOT meet criteria for t-PA Reason t-PA Not Given Treatment not indicated Problem Qualifiers Additional Impressions: Chest pain Chest pain type: unspecified Qualified Codes: R07.9 - Chest pain, unspecified
[2017-12-22] MEDS: PROPRANOLOL HCL 10 MG TAB PO SCH (20:56)
[2017-12-22] MEDS: TOPIRAMATE 100 MG TAB PO SCH (20:56)
[2017-12-22] MEDS: INSULIN ASPART 100 UNITS/ML 3 ML PEN SC SCH (20:57)
[2017-12-22] MEDS ORDERED: ATORVASTATIN 40 MG TAB PO SCH (21:00)
[2017-12-22] MEDS ORDERED: RANITIDINE HCL 150 MG TAB PO SCH (21:00)
[2017-12-22] MEDS: HEPARIN SOD 5000 UNIT/0.5 ML CARP SQ SCH (21:07)
[2017-12-22] MEDS ORDERED: IV FLUIDS COMPLETED PRN (22:45)
[2017-12-23 00:15] VITALS: BP 116/66; PULSE 62; TEMP 36.3; O2SAT 96
[2017-12-23 01:15] VITALS: BP 117/71; PULSE 59; TEMP 36.3; O2SAT 96
[2017-12-23 03:31] VITALS: BP 110/70; PULSE 53; TEMP 36.5; O2SAT 95
[2017-12-23 04:00] VITALS: O2SAT 95
[2017-12-23 05:42] LABS: BASO % 0.5 %; BASO ABS # 0.03 K/uL (0-0.2); EOS % 4.3 %; EOS ABS # 0.24 K/uL (0-0.5); HEMATOCRIT 43.8 % (42-52); HEMOGLOBIN 14.9 g/dL (14.0-18.0); IG# 0.06 K/uL (0.00-0.02); LYMPH ABS # 1.62 K/uL (1.2-3.4); MEAN CELL VOLUME 94.6 fL (80-100); MEAN CORPUSCULAR HEMOGLOBIN 32.2 pg (25-34); MEAN PLATELET VOLUME 10.8 fL (7.4-10.4); MONO % 7.3 %; MONO ABS # 0.41 K/uL (0.11-0.59); NEUT % 57.8 %; NEUT ABS # 3.23 K/uL (1.4-6.5); PLATELET COUNT 137 K/uL (130-400); RED CELL DISTRIBUTION WIDTH CV 13.3 % (11.5-14.5); RED CELL DISTRIBUTION WIDTH SD 45.6 fL (36.4-46.3); WHITE BLOOD COUNT 5.59 K/uL (4.8-10.8)
[2017-12-23] MEDS: HEPARIN SOD 5000 UNIT/0.5 ML CARP SQ SCH (06:02)
[2017-12-23 06:12] LABS: CALCIUM 7.8 mg/dl (8.5-10.1); CREATININE 1.41 mg/dl (0.60-1.40); POTASSIUM 3.8 mmol/L (3.5-5.1)
[2017-12-23] MEDS: INSULIN ASPART 100 UNITS/ML 3 ML PEN SC SCH ×2 (07:00→12:03)
[2017-12-23 08:00] VITALS: BP_SYST 128; BP_SYST 132; BP_DIAS 76; BP_DIAS 77; PULSE 54; PULSE 56; TEMP 36.5; O2SAT 97; O2SAT 98
[2017-12-23] MEDS: TOPIRAMATE 100 MG TAB PO SCH (08:03)
[2017-12-23] MEDS: PROPRANOLOL HCL 10 MG TAB PO SCH (08:04)
[2017-12-23] MEDS ORDERED: INSULIN GLARGINE SOLOSTAR 100 UNITS/ML 3 ML PEN SC SCH (09:00)
[2017-12-23] MEDS ORDERED: ASPIRIN 325 MG ECTAB PO SCH (09:00)
[2017-12-23] MEDS ORDERED: CITALOPRAM 20 MG TAB PO SCH (09:00)
[2017-12-23] MEDS ORDERED: PANTOprazole SOD 40 MG TAB PO SCH (09:00)
--- NOTE | 2017-12-23 09:23 | Neurology Consultation ---
Neurology Consultation Date of Consultation: Dec 23, 2017. Attending Physician: Sarmad Camarillo M.D. Primary Care Physician: Fox Moran M.D. Reason for Consultation: Patient is a 72-year-old, who was asked to see the request of Dr. Camarillo, for neurologic consultation regarding episode of acute onset left-sided weakness and numbness associated with chest pain, headache, and breathing difficulties History of Present Illness Source: patient, caregiver, clinic records, hospital records I 1st saw this patient sometime around 2003, for unusual migraine headaches associated with other symptomatology. Patient has had multiple neurologic testing over the years as far back as 1998 including normal EEGs and MRIs for episodes of weakness, vision problems, gait disturbance, dizziness, and headaches. In 2006 he was hospitalized 5 times for these spells in each time we saw him, EEGs and MRIs were unremarkable. MR angiography of the head neck were unremarkable as well. He was on 81 milligram aspirin tablet and was on propranolol 10 milligrams twice a day for essential tremor which helped. 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 Over the years, he has had a nice response to topiramate, essentially resolving his headaches. He has not had any type of headache or "spell" in probably 4 or 5 years and I have not seen him since November 16, 2014. Patient was sitting playing with puppy around 1600 hours on December 22 feeling well. He stood up immediately was lightheaded and vertiginous with some fuzzy thinking. There was some nausea but no vomiting. He tried to walk back into the house and noticed that his gait was off balance. He said out a noted left chest pain of a sharp nature and pain with breathing. The whole left side of his body was numb and felt weak. This included face arm and leg. He had a significant pressure sensation in his by temporal head region that felt like a clamp. He was thinking fairly well and recalls all events. He arrived in the emergency room on December 22 at 1742 hours with temperature 36.4 , pulse of 61 and regular, respiratory rate 18, blood pressure 115/85, and O2 saturation 97 percent. On exam he was awake and alert. There was subjective left-sided numbness and perhaps some mild left lower extremity weakness. And NIH stroke scale was listed as 1 or 2 and he was not a tPA candidate after consultation with tele stroke [facility] CT scan of the head was unremarkable CT of the chest showed some cardiomegaly but no evidence of pulmonary emboli or other anomaly CT angiography of the head neck were completely normal without significant stenosis or vessel anomaly. CBC was unremarkable Chem profile showed an elevated BUN and creatinine an elevated triglyceride. Urinalysis was unremarkable Overnight, he had no dysrhythmia. He is in sinus rhythm with an occasional PVC. This morning he is much improved and has no headache or dizziness. He has no vision issues. His left hand still feels somewhat cold but he does not have the numbness of the face arm or leg this morning that he did yesterday. He may be a little bit weak in the left leg he wondered but his arm feels good. Past Medical/Surgical History Medical Problems: (1) Chest pain Status: Acute (2) Complicated migraine Status: Acute (3) Left sided numbness Status: Acute History of complicated migraines, refractory to multiple medications but significant relief with topiramate Type 2 diabetes on insulin Hypertension Gastroesophageal reflux disease Essential tremor, controlled on low-dose propranolol Generalized anxiety disorder, currently controlled on citalopram History of renal stones post lithotripsy and a right renal stent Previous lumbar spine surgery Left ankle surgery Right knee surgery Palatopharyngoplasty with diagnosis of mild obstructive sleep apnea History of previous sinus surgery Tonsillectomy Family History Mother had a history of migraine headaches, heart disease, and dementia. Father had a history of diabetes and prostate cancer. Social History Patient quit cigarette smoking 2 years ago. Prior to this he was a pack per day smoker. Patient quit alcohol use 2 years ago was well. He was a social drinker prior to this. He worked for 30 years in a [employer], but retired on disability in the early secondary to toxin exposure Smoking Status: Former smoker Smokeless Tobacco Use: No Alcohol Use: none Drug Use: none Marital Status: Housing Status: lives with family Occupation Status: retired, disabled Allergies Coded Allergies: Morphine (Verified Adverse Reaction, Severe, "STOPS MY HEART", 12/22/17) Trazodone (Verified Adverse Reaction, Intermediate, GI UPSET, 12/22/17) Diazepam (Verified Adverse Reaction, Mild, HALLUCINATES, 12/22/17) Propoxyphene (Verified Adverse Reaction, Mild, DRUG INTOLERANCE, 12/22/17) Current Inpatient Medications Current Inpatient Medications Medications (Trade) Dose Ordered Sig/Jocelyn Route Start Time Stop Time Status Last Admin Dose Admin Ioversol (Optiray 320) 100 ml UD PRN IV 12/22/17 18:00 12/26/17 17:59 Citalopram Hydrobromide (celeXA TAB) 20 mg DAILY PO 12/23/17 09:00 01/22/18 08:59 Insulin Glargine (Lantus Solostar Pen) 35 units QAM SC 12/23/17 09:00 01/22/18 08:59 Pantoprazole Sodium (Protonix Tab) 40 mg QAM PO 12/23/17 09:00 01/22/18 08:59 Propranolol HCl (Inderal Tab) 10 mg BID PO 12/22/17 21:00 01/21/18 20:59 12/22/17 20:56 10 MG Topiramate (Topamax Tab) 100 mg BID PO 12/22/17 21:00 01/21/18 20:59 12/22/17 20:56 100 MG Ranitidine HCl (zANTac TAB) 300 mg HS PO 12/22/17 21:00 01/21/18 20:59 12/22/17 20:57 300 MG Aspirin (Ecotrin Tab) 325 mg QAM PO 12/23/17 09:00 01/22/18 08:59 Atorvastatin Calcium (Lipitor Tab) 40 mg HS PO 12/22/17 21:00 01/21/18 20:59 12/22/17 20:56 40 MG Insulin Aspart (novoLOG ASPART) SLIDING SCALE G... ACHS SC 12/22/17 21:00 01/21/18 20:59 Miscellaneous Information (Pharmacist Discharge Med Rec Consult) 1 ea UD PRN N/A 12/22/17 19:30 01/21/18 19:29 Heparin Sodium (Porcine) (Heparin Sq 5000 Unit/0.5ml) 5,000 unit Q8 SQ 12/22/17 22:00 01/21/18 21:59 12/23/17 06:02 5,000 UNIT Acetaminophen (Tylenol Tab) 650 mg Q4H PRN PO 12/22/17 19:45 01/21/18 19:44 Al Hydrox/Mg Hydrox/Simethicone (Maalox Max Susp) 15 ml Q4H PRN PO 12/22/17 19:45 01/21/18 19:44 Magnesium Hydroxide (Milk Of Magnesia Susp) 30 ml Q12H PRN PO 12/22/17 19:45 01/21/18 19:44 Ondansetron HCl (Zofran Inj) 4 mg Q6H PRN IV 12/22/17 19:45 01/21/18 19:44 Nitroglycerin (Nitrostat Tab) 0.4 mg UD PRN SL 12/22/17 19:45 01/21/18 19:44 Polyethylene (Miralax Powder Packet) 17 gm DAILY PRN PO 12/22/17 19:45 01/21/18 19:44 Miscellaneous (Iv Fluids Completed) 1 ea PRN PRN N/A 12/22/17 22:45 12/22/18 22:44 12/22/17 22:52 1 EA Review of Systems Constitutional: + weakness, + fatigue, No fever Eyes: No worsening of vision, No diplopia ENT: No hearing loss, No trouble swallowing Respiratory: No cough, No shortness of breath Cardiovascular: No chest pain, No palpitations Abdomen: No pain, No nausea Musculoskeletal: No joint pain, No muscle pain Genitourinary - Male: No dysuria, No urinary incontinence Neurologic: + weakness, + numbness/tingling, + balance problems, No memory loss , No vertigo Psychiatric: No depression symptoms, No anxiety Endocrine: + fatigue Hematologic / Lymphatic: No abnormal bleeding/bruising Integumentary: No rash Allergic / Immunologic: No hives Physical Exam Vital Signs (Past 24 Hrs): Date Time Temp Pulse Resp B/P (MAP) Pulse Ox O2 Delivery O2 Flow Rate FiO2 12/23/17 04:00 95 Room Air 12/23/17 03:31 36.5 53 18 110/70 (83) 95 Room Air 12/23/17 01:15 36.3 59 16 117/71 (86) 96 Room Air 12/23/17 00:15 36.3 62 16 116/66 (83) 96 Room Air 12/22/17 23:59 96 Room Air 12/22/17 23:15 36.3 58 16 131/72 (91) 96 Room Air 12/22/17 22:15 36.1 63 18 128/60 (82) 95 Room Air 12/22/17 21:15 36.1 63 18 145/66 (92) 95 Room Air 12/22/17 21:00 36.1 58 18 115/79 (91) 95 Room Air 12/22/17 20:45 36.1 59 18 132/79 (96) 95 Room Air 12/22/17 20:30 36.1 57 18 119/75 (90) 95 Room Air 12/22/17 20:30 36.1 57 18 119/75 95 Room Air 12/22/17 20:25 63 18 109/74 95 12/22/17 19:53 60 18 116/79 94 Room Air 12/22/17 19:41 61 12/22/17 18:43 58 12 106/69 94 Room Air 12/22/17 18:30 59 12 121/74 97 Room Air 12/22/17 18:17 60 14 128/79 96 12/22/17 18:08 60 12 119/74 94 Room Air 12/22/17 17:50 61 12/22/17 17:47 97 Room Air 12/22/17 17:42 36.4 61 18 115/85 97 Room Air Patient is right-handed. The patient is awake and alert. Speech is normal without aphasia or dysarthria. Mentation and thought processes are intact with full orientation and normal fund of knowledge. Mood and affect are normal and appropriate. Appearance and grooming are normal. Long and short-term memory are intact. The discs are sharp with positive venous pulsations. There are no exudates, hemorrhages, or blood vessel changes seen. Pupils are 4mm bilaterally and reactive to light. Extraocular eye muscles are intact without nystagmus. Visual acuity and visual leo seem normal grossly to confrontation. There are no deficits to sensation of the face bilaterally. Corneal reflexes are positive bilaterally. Facial strength and symmetry is normal bilaterally. Hearing seems intact grossly to voice and finger rub. Palate moves well without asymmetry. There is normal sternocleidomastoid and trapezius strength bilaterally. Tongue is midline with good strength bilaterally. Neck is with full range of motion without discomfort. There are no cervical bruits. There are no cranial or ocular bruits. Heart is without murmur. Cervical spine is mildly tender to palpation at the left occipital cervical junction. There is no abnormal mass or palpable lesion. Thoracic and lumbar spine are nontender to palpation. Stance is slightly wide-based and he loses his balance when he put his feet together. It particularly deteriorates with his eyes closed. With his eyes open he can walk some and has a cautious gait. He is not vertiginous. With outstretched arms there is no drift. There are no resting, postural, or action tremors. There is no ataxia with [id number] testing. There is good facility in the hands. There are no abnormal involuntary movements noted. Motor strength is 5/5 diffusely in the arms bilaterally including deltoids, biceps, brachioradialis, wrist flexors and extensors, regional forester, and intrinsic hand muscles. Motor strength is 5/5 diffusely in the legs bilaterally including hip flexors, quadriceps, hamstring, gastrocnemius, tibialis anterior, tibialis posterior, and peroneii muscles bilaterally. He does have some mild giveaway weakness of the left lower extremity but initial strength is quite normal and symmetrical. Toe extensors are normal and there is good bulk in the extensor digitorum brevis muscle bilaterally. The limbs have good tone without rigidity or spasticity, and there is no atrophy noted. Muscle bulk is normal, there is no tenderness, no myotonia noted to percussion, and no fasciculations seen. Sensory examination decreased in the feet bilaterally. Otherwise he has no deficits to sensation in the limbs. Reflexes are 0/4 in the biceps, triceps, brachioradialis, quadriceps, and Achilles tendons bilaterally. Toes are downgoing with plantar stimulation bilaterally. Peripheral pulses are present and of normal quality distally in all four limbs. There is no peripheral edema noted. Laboratory Results Past 24 Hours: 12/23/17 05:21 Red Blood Count 4.63, Mean Corpuscular Volume 94.6, Mean Corpuscular Hemoglobin 32.2, Mean Corpuscular Hemoglobin Concent 34.0, Mean Platelet Volume 10.8, Neutrophils (%) (Auto) 57.8, Lymphocytes (%) (Auto) 29.0, Monocytes (%) (Auto) 7.3, Eosinophils (%) (Auto) 4.3, Basophils (%) (Auto) 0.5, Neutrophils # (Auto) 3.23, Lymphocytes # (Auto) 1.62, Monocytes # (Auto) 0.41, Eosinophils # (Auto) 0.24, Basophils # (Auto) 0.03 12/23/17 05:21 Test 12/22/17 17:05 12/22/17 17:42 12/22/17 18:01 12/22/17 20:52 Prothrombin Time 10.3 SECONDS (9.0-12.0) Prothromb Time International Ratio 1.0 (0.9-1.1) Activated Partial Thromboplast Time 24.5 SECONDS (21.0-31.0) Partial Thromboplastin Ratio 0.9 Magnesium Level 2.2 mg/dl (1.8-2.4) Total Creatine Kinase 47 U/L (39-308) Creatine Kinase MB < 1.0 ng/ml (0.5-3.6) Creatine Kinase MB Ratio (0-3.0) Bedside Hemoglobin 16.0 g/dl (14.0-18.0) Bedside Hematocrit 47 % (42-52) Bedside Sodium 140 mEq/L (135-144) Bedside Potassium 4.3 mEq/L (3.3-5.0) Bedside Chloride 105 mEq/L (101-112) Bedside Total CO2 26 mEq/l (24-31) Bedside Blood Urea Nitrogen 21 mg/dl (7-18) Bedside Creatinine 1.4 mg/dl (0.6-1.3) Bedside Glucose (other) 158 mg/dl (70-99) Bedside Ionized Calcium (Kellie) 1.21 mmol/l (1.12-1.32) Bedside Troponin I < 0.030 ng/ml (0-0.045) Ethyl Alcohol mg/dL < 3.0 mg/dl (0-3) Bedside Glucose 118 mg/dl (70-99) Test 12/22/17 22:20 12/23/17 05:21 Urine Color YELLOW Urine Appearance CLEAR (CLEAR) Urine pH 5.0 (4.5-7.5) Urine Specific [place] 1.041 (1.000-1.030) Urine Protein NEG (NEG) Urine Glucose (UA) NEG (NEG) Urine Ketones NEG (NEG) Urine Occult Blood NEG (NEG) Urine Nitrite NEG (NEG) Urine Bilirubin NEG (NEG) Urine Urobilinogen NEG (NEG) Urine Leukocyte Esterase NEG (NEG) White Blood Count 5.59 K/uL (4.8-10.8) Red Blood Count 4.63 M/uL (4.7-6.1) Hemoglobin 14.9 g/dL (14.0-18.0) Hematocrit 43.8 % (42-52) Mean Corpuscular Volume 94.6 fL (80-100) Mean Corpuscular Hemoglobin 32.2 pg (25-34) Mean Corpuscular Hemoglobin Concent 34.0 g/dl (32-36) Platelet Count 137 K/uL (130-400) Mean Platelet Volume 10.8 fL (7.4-10.4) Neutrophils (%) (Auto) 57.8 % Lymphocytes (%) (Auto) 29.0 % Monocytes (%) (Auto) 7.3 % Eosinophils (%) (Auto) 4.3 % Basophils (%) (Auto) 0.5 % Neutrophils # (Auto) 3.23 K/uL (1.4-6.5) Lymphocytes # (Auto) 1.62 K/uL (1.2-3.4) Monocytes # (Auto) 0.41 K/uL (0.11-0.59) Eosinophils # (Auto) 0.24 K/uL (0-0.5) Basophils # (Auto) 0.03 K/uL (0-0.2) RDW Standard Deviation 45.6 fL (36.4-46.3) RDW Coefficient of Variation 13.3 % (11.5-14.5) Immature Granulocyte % (Auto) 1.1 % Immature Granulocyte # (Auto) 0.06 K/uL (0.00-0.02) Anion Gap 4.0 mmol/L (3-11) Est Creatinine Clear Calc Drug Dose 52.6 ml/min Estimated GFR () 57.7 Estimated GFR (Non- 49.8 BUN/Creatinine Ratio 12.6 (10-20) Calcium Level 7.8 mg/dl (8.5-10.1) Troponin I < 0.015 ng/ml (0-0.045) Triglycerides Level 284 mg/dl (0-150) Cholesterol Level 113 mg/dl (0-200) HDL Cholesterol 23 mg/dl LDL Cholesterol, Calculated 33 mg/dl VLDL Cholesterol, Calculated 57 mg/dl Cholesterol/HDL Ratio 4.[address] ANGIOGRAM OF THE BRAIN; CT ANGIOGRAM OF THE NECK CLINICAL HISTORY: Strokelike symptoms. COMPARISON STUDY: Unenhanced CT of the brain dated 12/22/2017. Carotid artery ultrasound dated 01/07/2008. TECHNIQUE: Following the IV administration of 120 of Optiray 320, CT angiogram of the head and neck was performed from the aortic arch to the vertex. Images are reviewed in the axial, sagittal, and coronal planes. 3-D MIPS images are created and assessed. IV contrast was administered without complication. All measurements were calculated based on NASCET criteria. A dose lowering technique was utilized adhering to the principles of ALARA. FINDINGS: Brain parenchyma: There are age-related involutional changes noting mild subcortical and periventricular microangiopathic disease. There is no hemorrhage, mass effect, or evidence of acute territorial ischemia by CT criteria. There is no evidence of enhancing mass lesion on the angiogram phase images. The ventricles, sulci, and cisterns are prominent second or to involutional change. [place]-white matter differentiation is preserved. No extra-axial fluid collection is seen. Thoracic aorta: There is mild atherosclerotic calcification of the thoracic aorta. Visualized portions of the thoracic aorta are normal in caliber. The aortic arch demonstrates standard 3-vessel anatomy. Right carotid arterial system: The right common carotid artery is widely patent, as are the right internal and external carotid arteries. Atherosclerotic calcification is noted in the carotid bulb. Left carotid arterial system: The left common carotid artery is widely patent, as are the left internal and external carotid arteries. Mild atherosclerotic calcification is noted in the carotid bulb. Vertebral arteries: The vertebral arteries are widely patent and codominant. Subclavian arteries: Widely patent bilaterally. Intracranial vasculature: There is mild atherosclerotic calcification of the cavernous carotid arteries. The internal carotid arteries are patent at the skull base, as are the anterior and middle cerebral arteries bilaterally. The vertebrobasilar system and posterior cerebral arteries are widely patent. The vertebral arteries are codominant. There is no aneurysm, high-grade stenosis, or focal vessel cut off seen throughout the intracranial circulation. Jugular veins: Patent bilaterally. Dural sinuses: Patent. Lung apices: Costophrenic granulomas are noted in the upper lobes. There are calcified mediastinal and hilar lymph nodes. Soft tissues: The visualized pharyngeal soft tissues are normal in appearance noting angiographic phase technique. The oropharyngeal airway appears widely patent. The salivary and thyroid glands are normal in appearance. No cervical lymphadenopathy is seen. Skeletal structures: The Skeletal structures are osteopenic. The calvarium is normal in appearance. The cervical spine appears intact noting multilevel spondylosis. Orbits: The bony orbits are intact. Orbital contents are normal in appearance. Sinuses and mastoids: There is evidence of previous paranasal sinus surgery. The paranasal sinuses are clear. The mastoid air cells are well pneumatized. IMPRESSION: 1. There is no hemorrhage, mass effect, or evidence of acute territorial ischemia by CT criteria. 2. Unremarkable CT angiogram of the brain. 3. Unremarkable CT angiogram of the neck. Electronically signed by: Jonny Zambrano M.D. 12/22/2017 6:14 PM Impression 1. Acute episode December 22 of vertigo, chest pain, left-sided numbness, left- sided weakness, and bilateral pressure pain. His symptoms have essentially resolved this morning and he has no object if neurologic deficits on examination. He has no meningeal signs or encephalopathy. He feels his left leg is a little bit weak but I think this is giveaway weakness and not pathologic. Etiology of this episode is likely a combination of some dehydration as lightheadedness/vertigo with standing followed by some anxiety giving chest pain and perhaps a complicated migraine. I cannot entirely exclude a very small CVA an MRI is pending. Over the years, the patient had multiple episodes like this with extensive evaluations and no pathology. He has been doing very well for the last 4-5 years however. 2. Complicated migraines These have been quite controlled on topiramate. 3. Essential tremor He is on low-dose propranolol which helps his blood pressure is well. He does not have any evidence of essential tremor on examination today. In the past, anxiety with Dr. vizcaino as well. 4. Generalized anxiety disorder He has been doing very well with this over the last several years and his current dose of citalopram helps considerably. 5. Polyneuropathy involving predominantly sensory fibers This polyneuropathy is likely due to diabetes. This results in a gait disturbance from sensory ataxia. 6. Recent history of renal stones. Although topiramate can resulted in "bringing out" renal stones in susceptible patients, it does not cause renal stones. He is doing very well on topiramate and is stable with this problem Plan 1. MRI of the brain is pending. 2. Continue topiramate, 81 milligram aspirin, propranolol, and citalopram at the current doses. Overall, I spent a total of 80 minutes with this case including records review, review of films, direct examination the patient at bedside, and discussion with the patient and his clinical care team, including Dr. Schuster, regarding differential diagnosis and treatment options.
--- NOTE | 2017-12-23 10:28 | DIAGNOSTIC IMAGING REPORT ---
MRI OF THE BRAIN WITHOUT CONTRAST CLINICAL HISTORY: Stroke COMPARISON STUDY: Head CT dated 12/22/2017, MRI the brain dated 04/10/2014 FINDINGS: Sagittal T1, axial diffusion, proton density and T2 weighted axial, coronal FLAIR, and axial T1-weighted images were acquired. No intra or extra-axial mass lesions are visualized Axial diffusion-weighted images reveal no evidence of acute or subacute infarction. There is no evidence of ventricular dilatation. Proton density T2-weighted and FLAIR images reveal scattered foci of increased T2 signal within the white matter, likely on a small vessel basis. There are no abnormal flow voids. IMPRESSION: 1. No significant change from the prior March 2014 study. No acute findings 2. No evidence of intracranial mass 3. No evidence of acute or subacute infarction Electronically signed by: Carlos Salazar M.D. 12/23/2017 10:27 AM Dictated Date/Time: 12/23/2017 10:23 AM
--- NOTE | 2017-12-23 11:35 | Discharge Instructions ---
Discharge Instructions Date of Service Dec 23, 2017. Admission Reason for Admission: Migraines,Neurological Deficit Present Discharge Discharge Diagnosis / Problem: Complex migraine Discharge Goals Goal(s): Improve disease control, Diagnostic testing, Therapeutic intervention Activity Recommendations Activity Limitations: as noted below Exercise/Sports Limitations: gradually increase as tolerated Shower/Bathe: no limitations . Instructions / Follow-Up Instructions / Follow-Up You were admitted for chest pain and left sided weakness/numbness that was all most likely from a complex migraine. You did not have a heart attack or a stroke found on any of your testing. Please follow up with Dr. Bañuelos of Neurology, and with your PCP within 1-2 weeks. Current Hospital Diet Patient's current hospital diet: AHA Diet (Heart Healthy), Diabetes Type 2 Diet Discharge Diet Recommended Diet: AHA Diet (Heart Healthy), Diabetes Type 2 Diet Procedures Procedures Performed: CTA Head and neck CT Head MRI Brain CT Dissection chest Pending Studies Studies pending at discharge: no Laboratory Results Hemoglobin A1c Test 12/22/17 17:05 Range/Units Lipid Panel Test 12/23/17 05:21 Range/Units Triglycerides Level 284 H 0-150 mg/dl Cholesterol Level 113 0-200 mg/dl HDL Cholesterol 23 mg/dl Cholesterol/HDL Ratio 4.9 LDL Cholesterol, Calculated 33 mg/dl Medical Emergencies . Who to Call and When: Medical Emergencies: If at any time you feel your situation is an emergency, please call 911 immediately. . Non-Emergent Contact Non-Emergency issues call your: Primary Care Provider, Neurologist Call Non-Emergent contact if: you have a fever, your pain is not controlled, your pain is worsening, your pain is unusual for you, your pain is concerning you, you have any medication questions . . "Provider Documentation" section prepared by Lillian Schuster. .
--- NOTE | 2017-12-23 11:47 | Discharge Summary ---
Discharge Summary Date of Service Dec 23, 2017. Discharge Summary Admission Date: Dec 22, 2017 at 19:35 Discharge Date: Dec 23, 2017 Discharge Disposition: Home Principal Diagnosis: Complex migraine Problems/Secondary Diagnoses: History of complicated migraines, refractory to multiple medications but significant relief with topiramate Type 2 diabetes on insulin Hypertension Dyslipidemia Gastroesophageal reflux disease Essential tremor, controlled on low-dose propranolol Generalized anxiety disorder, currently controlled on citalopram History of renal stones post lithotripsy and a right renal stent Previous lumbar spine surgery Left ankle surgery Right knee surgery Palatopharyngoplasty with diagnosis of mild obstructive sleep apnea History of previous sinus surgery Tonsillectomy CKD III GERD CAD - [place] 2010 - cath indicated occlusive branch vessel disease, diffuse nonocclusive disease including 50% LAD stenosis. Immunizations: Have You Had Influenza Vaccine: No Influenza Vaccine Date: Apr 17, 2007 History of Tetanus Vaccine?: Unknown Tetanus Immunization Date: November 11, 2008 History of Pneumococcal: Yes Pneumococcal Date: Nov 17, 2011 History of Hepatitis B Vaccine: Unknown Hepatitis Immunization Date: November 12, 2003 Procedures: CTA Head and neck CT Head MRI Brain CT Dissection chest Consultations: Neurology Medication Reconciliation Continued Medications: Aspirin (Aspirin Chewable) 81 Mg Chew 81 MG PO 3XWK, TAB Sunday AM Citalopram (Citalopram Hydrobromide) 40 Mg Tab 40 MG PO 4XWK EVEN DAYS-AM Citalopram (Citalopram Hydrobromide) 20 Mg Tab 20 MG PO 3XWK ODD DAYS-PM Ergocalciferol (Vitamin D 35549 Unit) 50,000 Unit Cap 41875 UNIT PO WK, CAP TAKES ON SUNDAYS. Insulin Aspart (Novolog Flexpen) 100 Units/Ml Inj Unknown Dose SQ BIDM SLIDING SCALE 20-30 UNITS WITH MEALS, TOTAL 60 UNITS DAILY. Insulin Glargine (Lantus Solostar) 100 Unit/Ml Inj 35 UNITS SC QAM, PEN Isosorbide Mononitrate (Imdur Ext Rel) 120 Mg Tab 120 MG PO QAM, TAB Nitroglycerin (Nitrostat) 0.4 Mg Tab 0.4 MG UT PRN, BTL Pantoprazole Sodium (Protonix) 40 Mg Tab 40 MG PO QAM Pravastatin Sod (Pravastatin Sodium) 40 Mg Tab 40 MG PO HS Propranolol (Inderal) 10 Mg Tab 10 MG PO BID Ranitidine Hcl (Zantac) 300 Mg Tab 300 MG PO HS, TAB Topiramate (Topamax) 100 Mg Tab 100 MG PO BID, TAB Discharge Exam Pt feeling completely back to baseline. No headache, no dizziness, no weakness or numbness. No further chest pain, no SOB. Telemetry with SB in the 50s and NSR Review of Systems: Constitutional: No problem reported Eyes: No problem reported ENT: No problem reported Respiratory: No problem reported Cardiovascular: No problem reported Abdomen: No problem reported Musculoskeletal: No problem reported Genitourinary - Male: No problem reported Neurologic: No problem reported Psychiatric: No problem reported Endocrine: No problem reported Hematologic / Lymphatic: No problem reported Integumentary: No problem reported Physical Exam: General Appearance: WD/WN, no apparent distress Eyes: normal inspection, EOMI, sclerae normal ENT: hearing grossly normal, pharynx normal Neck: supple, trachea midline Respiratory/Chest: lungs clear, normal breath sounds, no respiratory distress, no accessory muscle use Cardiovascular: regular rate, rhythm, no edema, no gallop, no JVD, no murmur , normal peripheral pulses Abdomen / GI: normal bowel sounds, non tender, soft, no organomegaly Extremities: normal inspection, no calf tenderness, normal capillary refill , no pedal edema, normal range of motion Neurologic/Psychiatric: 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 He developed acute onset of a headache, L weakness/numbness, and L CP. He states he can develop acute weakness with a migraine. He also states, however, that in 2010 he had similar acute symptoms and was subsequently diagnosed with an KS and a CVA. His L sided weakness is more pronounced in his LLE, numbness to light touch is apparent. CP is focal and limited to the L upper chest. He denies SOB, N/V or diaphoresis. His headache is described as L sided, sharp and severe. 1) Left sided deficits/Headache-all studies negative on neuro and vascular imaging of the head/neck. All symptoms resolved. Seen by Neurology and most likely a complex migraine as per his previous history -continue all same home meds -recommend f/u with Neuro as outpt -continue on Topamax for prophylaxis, continue pravastatin, ASA as before 2) CP, CAD - serial troponins negative x 3. No events on telemetry. There are no acute EKG changes on admission and CP has been focal and persistent. All resolved when headache and neuro deficits resolved. Likely related to migraine vs anxiety as per Neuro Cont ASA and a Statin. 3) DM II -stable, HgbA1C pending at time of dc but was very well controlled 6 months ago as outpt -continue home basal bolus insulin 4) CKD III - creat is at or below baseline at 1.4 -avoid nephrotoxins,renally dose meds 5) Essential tremor-stable -continue propranolol Gastroesophageal reflux [id number] -continue Zantac Generalized anxiety disorder, currently controlled on citalopram Stable for dc to home, PT/OT evals cleared for dc to home Total Time Spent: Greater than 30 minutes This includes examination of the patient, discharge planning, medication reconciliation, and communication with other providers. Discharge Instructions Please refer to the electronic Patient Visit Report (Discharge Instructions) for additional information. Follow-Up with PCP and Neuro within 1-2 weeks Additional Copies To Fox Moran M.D.; Cony Bañuelos M.D.
[2017-12-23 11:49] VITALS: BP 131/72; PULSE 69; TEMP 36.5; O2SAT 96
[2017-12-24 06:16] LABS: HEMOGLOBIN A1C 7.5 % (4.5-5.6)
== END 2017-12-23 12:45 | disposition home or self-care (01) ==
LOC: EDBD 17:32 → C.EDB 17:33 → C.2T 19:35 → ENRESERV 19:53
PROVIDERS: ADMIT Internal Medicine; ATTEND Internal Medicine
DX: G43.809 Other migraine, not intractable, without status migrainosus (principal); E11.9 Type 2 diabetes mellitus without complications; Z79.4 Long term (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; I12.9 Hypertensive chronic kidney disease with stage 1 through stage 4 chronic kidney disease, or unspecified chronic kidney disease; E78.5 Hyperlipidemia, unspecified; K21.9 Gastro-esophageal reflux disease without esophagitis; G25.0 Essential tremor; F41.1 Generalized anxiety disorder; G47.33 Obstructive sleep apnea (adult) (pediatric); N18.3 Chronic kidney disease, stage 3 (moderate); I25.10 Atherosclerotic heart disease of native coronary artery without angina pectoris; I25.2 Old myocardial infarction; Z79.82 Long term (current) use of aspirin; Z79.899 Other long term (current) drug therapy

== ENCOUNTER 2018-01-29 19:54 | Emergency (ER) | payer OTHER, MEDICARE ==
[~2018-01-29] VITALS: Ht 175.3 cm; Wt 100.3 kg
[~2018-01-29 19:54] MED LIST changes: +ERGO500037 PO; +INSDGIPEN SC; -INSUINJ4 SQ; -OXYC-737 PO
[2018-01-29 19:56] VITALS: TEMP 36.7; Ht 175.3 cm; Wt 100.3 kg
[2018-01-29] MEDS ORDERED: LIDOCAINE 1% BUFFERED INJ 20 ML VIAL INFIL STA (20:07)
[2018-01-29] MEDS ORDERED: LIDOCAINE 1% BUFFERED INJ 20 ML VIAL ONE (20:09)
--- NOTE | 2018-01-29 20:37 | EMERGENCY ROOM VISIT NOTE ---
ED Visit Note First contact with patient: 19:59 Chief Complaint: "Left foot and toe pain". History of Present Illness: This patient is a 72-year-old male who presents to the Emergency Department via private vehicle accompanied by for evaluation of their left second toe nail injury, noting that he has a history of poor toenails and this one became stuck in the sock and was ripped upward. He notes that at times he will just rip them off but was recommended by family doctor to come here for evaluation. He notes he is diabetic. He rates the pain currently is a 10/10. He believes his tetanus is not up-to-date. Medications: As noted below Allergies: As noted below PMH: Diabetes SHx: Patient lives locally. ROS: All pertinent positive and negative review of systems are appropriately documented in the History of Present Illness. Physical Exam: VITAL SIGNS - Vital signs and nursing notes were reviewed. Stable. Afebrile. GENERAL -72-year-old male appearing his stated age who is in no acute distress. Communicates well with provider and answers questions appropriately. SKIN -overlying the patient's left second toe there is evidence of a nearly completely unroofed/avulsed toenail that is being held on by the proximalmost portion of the nail. It appears that this nail became detached from most of the nailbed quite some time ago. There is no bleeding. No laceration. The nail is quite thickened, and is dark and yellow. No drainage. No surrounding erythema or edema. Good capillary refill. He is able to move the digit appropriately. ED Course: Patient was seen and evaluated by myself. Patient requested I remove the toenail. I informed him that I could remove the toenail, or try to repair the toenail or remove the toenail and place a synthetic cover over it until it heals. He asks that I simply remove the toenail and put a dressing on the toe. I believe this is reasonable. He has diabetes therefore want to decrease infection risk. Risk versus benefit was discussed. Decision was made to perform a digital block at the base of the left second toe. This was with 3 cc 1% buffered lidocaine without epinephrine. Excellent anesthetization achieved. I then was able to remove with sharp debridement the remainder of the nail at the proximal most aspect. I did leave the cuticle and remaining small portion. I did not disrupt the skin. I will note that the toenail was almost completely removed before I began. I then was able to clean the region with normal saline and Betadine and dressed with a bacitracin bulky dressing. He is to follow with the family doctor for recheck in a few days or return with worsening. He was educated upon risk of infection. We discussed benefit versus risk of initiating antibiotics at this time and decided to refrain and track his clinical course with the family doctor. He was educated upon management, educated upon worrisome symptoms which to return, updated on his tetanus, had questions answered prior to discharge, and was discharged home in good condition. Medication list reviewed. Blood pressure found to be elevated likely secondary to situation. Problem List Medical Problems: (1) Benign essential hypertension Status: Chronic (2) Coronary artery disease Status: Chronic (3) Diabetes mellitus type 2 Status: Chronic (4) Gastroesophageal reflux disease Status: Chronic Current/Historical Medications Scheduled Aspirin (Aspirin Chewable), 81 MG PO 3XWK Citalopram (Citalopram Hydrobromide), 40 MG PO 4XWK Citalopram (Citalopram Hydrobromide), 20 MG PO 3XWK Ergocalciferol (Vitamin D 31275 Unit), 50,000 UNIT PO WK Insulin Aspart (Novolog Flexpen), Unknown Dose SQ BIDM Insulin Glargine (Lantus Solostar), 35 UNITS SC QAM Isosorbide Mononitrate (Imdur Ext Rel), 120 MG PO QAM Nitroglycerin (Nitrostat), 0.4 MG UT PRN Pantoprazole Sodium (Protonix), 40 MG PO QAM Pravastatin Sod (Pravastatin Sodium), 40 MG PO HS Propranolol (Inderal), 10 MG PO BID Ranitidine Hcl (Zantac), 300 MG PO HS Topiramate (Topamax), 100 MG PO BID Allergies Coded Allergies: Morphine (Verified Adverse Reaction, Severe, "STOPS MY HEART", 12/22/17) Trazodone (Verified Adverse Reaction, Intermediate, GI UPSET, 12/22/17) Diazepam (Verified Adverse Reaction, Mild, HALLUCINATES, 12/22/17) Propoxyphene (Verified Adverse Reaction, Mild, DRUG INTOLERANCE, 12/22/17) Vital Signs Date Time Temp Pulse Resp B/P (MAP) Pulse Ox O2 Delivery O2 Flow Rate FiO2 01/29/18 21:00 77 18 112/73 95 Room Air 01/29/18 19:56 36.7 93 20 121/80 95 Room Air Medications Administered Medications (Trade) Dose Ordered Sig/Jocelyn Route Start Time Stop Time Status Last Admin Dose Admin Diphtheria/ Pertussis/Tetanus Vacc (Adacel Inj) 0.5 ml ONCE ONCE IM. 01/29/18 20:45 01/29/18 20:46 DC 01/29/18 20:56 0.5 ML Departure Information Impression Primary Impression: Nail avulsion, toe Dispostion Home / Self-Care Condition GOOD Referrals Pro,Fox Frey M.D. (PCP) Patient Instructions My [facility] Additional Instructions You were seen in the emergency department for an injury to your toenail. Proper wound care is essential for adequate wound healing and infection prevention. You can shower and clean the wound with soap and water. Do not scour over the wound, pat dry with a towel. Do not submerse the wound (i.e. bathe or dish wash) for 7 days. You can use an antibiotic ointment with a dressing over the wound Look for signs of infection of the wound including: increased pain, swelling, foul discharge, streaking, or increased temperature. If any of these are noticed you should return to the Emergency Department for further assessment and treatment. Please follow-up with your family doctor to recheck the wound in a few days to ensure it is healing well or return here if it looks infected as we discussed or any new/concerning symptoms. Return to the emergency department if your symptoms worsen despite treatment course outlined above.
[2018-01-29] MEDS ORDERED: DIPHTHERIA/TETANUS/PERTUSSIS 0.5 ML SYR/VIAL IM. ONE (20:45)
[2018-01-29 21:00] VITALS: BP 112/73; PULSE 77; O2SAT 95
== END 2018-01-29 21:00 | disposition home or self-care (01) ==
LOC: C.EDB 19:55 → C.EDD 21:00
DX: S91.205A Unspecified open wound of left lesser toe(s) with damage to nail, initial encounter (principal); X58.XXXA Exposure to other specified factors, initial encounter; E11.9 Type 2 diabetes mellitus without complications; I25.10 Atherosclerotic heart disease of native coronary artery without angina pectoris; I10 Essential (primary) hypertension; Z79.4 Long term (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; Z79.899 Other long term (current) drug therapy; Z88.8 Allergy status to other drugs, medicaments and biological substances

== ENCOUNTER 2018-10-19 16:34 | Inpatient (IN) ==
[2018-10-19] MEDS ORDERED: ONDANSETRON INJ 2 MG/ML 2 ML VIAL IV STA (16:49)
[2018-10-19] MEDS ORDERED: ACETAMINOPHEN 1,000 MG/100 ML VIAL IV STA (16:49)
[2018-10-19] MEDS ORDERED: SODIUM CHLORIDE 0.9% 500 ML IV SCH (17:00)
--- NOTE | 2018-10-19 17:07 | Emergency Department Note ---
Entered by Damon Bernardo acting as a scribe for Jonny El MD History of Present Illness General Chief complaint: Cardiac Assessment Stated complaint: CHEST PAIN Time Seen by Provider: 10/19/18 16:38 Source: patient and EMS History of Present Illness Onset (ago): hour(s) 2 Location: head and chest Pain Consistency: + other (persistent chest and head pain) Quality: + other (episode of near-syncope followed by chest and head pain) Associated symptoms: + chest pain, + diaphoresis, + shortness of breath and + other (nausea); no syncope Treatments prior to arrival: aspirin The patient is a 73 year old male who presents to the Emergency Room for a car diac assessment. The patient states that two hours ago while lifting bags of grass he developed dizziness, shortness of breath, clamminess, nausea, diaphoresis, and quivering in the legs. He states that he felt like he was going to pass out but did not actually lose consciousness, and he did not have chest pain at that time. Afterward he then developed left-sided pain in the chest, head, neck, and shoulder. Family called the ambulance, and the patient was then given four aspirin but no nitroglycerin. The patient states that he still has the left-sided chest and head pain, but he otherwise feels improvement of his symptoms. He denies abdominal pain. He reports a history of heart attack and angina. He is supposed to take nitro at home, but he ran out several months ago and never refilled his prescription. The patient also has a history of CVA, diabetes, and smoking per EMS. Home Medications Home Medications Medication Instructions Recorded Confirmed Type aspirin 81 mg PO 3XWK 05/17/18 10/19/18 History citalopram 20 mg PO 3XWK 05/17/18 10/19/18 History citalopram 40 mg PO 4XWK 05/17/18 10/19/18 History isosorbide mononitrate 120 mg PO QAM 05/17/18 10/19/18 History pantoprazole 40 mg PO QAM 05/17/18 10/19/18 History pravastatin 40 mg PO QPM 05/17/18 10/19/18 History propranolol 10 mg PO BID 05/17/18 10/19/18 History ranitidine HCl 300 mg PO HS 05/17/18 10/19/18 History topiramate [Topamax] 100 mg PO BID 05/17/18 10/19/18 History Lantus U-100 Insulin 35 unit SUBCUT HS 07/17/18 10/19/18 History insulin lispro [Humalog KwikPen 20 - 30 unit SUBCUT AC 07/17/18 10/19/18 History Insulin] Allergies Allergy/AdvReac Type Severity Reaction Status Date / Time morphine AdvReac Severe "STOPS MY Verified 10/19/18 17:38 HEART" trazodone AdvReac Intermediate GI UPSET Verified 10/19/18 17:38 diazepam AdvReac Mild HALLUCINATE Verified 10/19/18 17:38 S propoxyphene AdvReac Mild DRUG Verified 10/19/18 17:38 INTOLERANCE Past Med/Surg History Medical History Kidney stone on right side (Acute) Migraines, neuralgic Neurological deficit present Diabetes mellitus, type 2 History of colon polyps Hyperlipidemia Hypertension Myocardial Infarction 2004--follows with Dr. Mejia Osteoarthritis Surgical History History of arthroscopy of left knee History of cardiac cath x3-4, last 2014 History of carpal tunnel release of both wrists History of colonoscopy History of heart artery stent x1--1998 History of lithotripsy x2 History of lumbar discectomy x2 History of open reduction and internal fixation (ORIF) procedure left ankle--hardware in place History of right cataract extraction History of tonsillectomy and adenoidectomy Status post uvulopalatopharyngoplasty Family History Father Family history of diabetes mellitus Family hx of colon cancer Other No family history of adverse response to anesthesia Social History Preferred Language: Pashto Communication Ability: Effective Beliefs That Will Affect Care: None marital status: Current Living Situation: Spouse Feels Safe at Home: Yes Smoking Status: Former smoker Second Hand Exposure: No Hx Alcohol Use: No Hx Substance Use: No Review of Systems See HPI for pertinent positives & negatives. and A total of 10 systems reviewed and were otherwise negative Physical Exam Vital Signs Vital Signs - 24 hr 10/19/18 16:36 10/19/18 16:50 10/19/18 17:03 Temperature 36.8 C Temperature Source Oral Sepsis Recent Fever Within 48 Hours No Sepsis Action Taken by Nursing No Action Required Pulse Rate - Lying Pulse Rate - Sitting Pulse Rate - Standing Pulse Rate 76 62 Pulse Rate from SpO2 Sensor 63 Pulse Rhythm Regular Pulse Strength Normal Respiratory Rate 18 12 Respiratory Effort / Characteristics Non-Labored Spontaneous Respiratory Depth Normal Respiratory Pattern Regular Blood Pressure - Lying Blood Pressure - Sitting Blood Pressure- Standing Blood Pressure 103/67 98/67 L Blood Pressure Mean 79 77 Blood Pressure Position Lying Pulse Oximetry 96 96 93 Oxygen Delivery Method Room Air Room Air 10/19/18 17:43 10/19/18 18:01 10/19/18 18:31 Temperature Temperature Source Sepsis Recent Fever Within 48 Hours Sepsis Action Taken by Nursing Pulse Rate - Lying Pulse Rate - Sitting Pulse Rate - Standing Pulse Rate 60 55 L 59 L Pulse Rate from SpO2 Sensor 63 Pulse Rhythm Pulse Strength Respiratory Rate 14 18 17 Respiratory Effort / Characteristics Respiratory Depth Respiratory Pattern Blood Pressure - Lying Blood Pressure - Sitting Blood Pressure- Standing Blood Pressure 97/65 L 104/57 L 100/61 Blood Pressure Mean 75 72 74 Blood Pressure Position Pulse Oximetry 94 Oxygen Delivery Method 10/19/18 19:01 10/19/18 19:36 10/19/18 19:40 Temperature Temperature Source Sepsis Recent Fever Within 48 Hours Sepsis Action Taken by Nursing Pulse Rate - Lying 53 L Pulse Rate - Sitting 56 L Pulse Rate - Standing 62 Pulse Rate 55 L 53 L Pulse Rate from SpO2 Sensor 54 L Pulse Rhythm Pulse Strength Respiratory Rate 16 13 Respiratory Effort / Characteristics Respiratory Depth Respiratory Pattern Blood Pressure - Lying 96/61 L Blood Pressure - Sitting 92/58 L Blood Pressure- Standing 91/57 L Blood Pressure 100/68 91/57 L Blood Pressure Mean 78 68 Blood Pressure Position Pulse Oximetry 95 Oxygen Delivery Method 10/19/18 20:00 10/19/18 20:01 10/19/18 20:31 Temperature Temperature Source Sepsis Recent Fever Within 48 Hours Sepsis Action Taken by Nursing Pulse Rate - Lying Pulse Rate - Sitting Pulse Rate - Standing Pulse Rate 52 L 51 L 52 L Pulse Rate from SpO2 Sensor Pulse Rhythm Pulse Strength Respiratory Rate 16 11 L 18 Respiratory Effort / Characteristics Respiratory Depth Respiratory Pattern Blood Pressure - Lying Blood Pressure - Sitting Blood Pressure- Standing Blood Pressure 106/62 101/65 Blood Pressure Mean 76 77 Blood Pressure Position Pulse Oximetry Oxygen Delivery Method GENERAL: Patient is in no acute distress. HEENT: No acute trauma, normocephalic atraumatic, mucous membranes moist, no nasal congestion, no scleral icterus. NECK: Tenderness along the left posterior neck musculature and left trapezius. No stridor, no adenopathy, no meningismus, trachea is midline. LUNGS: Clear to auscultation bilaterally, no wheeze, no rhonchi, breath sounds equal. HEART: Without murmurs gallops or rubs, regular rate and rhythm. CHEST: Tenderness to the left anterior chest wall, no rash. ABDOMEN: Soft, nontender, bowel sounds positive, no hernias, no peritonitis. EXTREMITIES: No cyanosis or edema, full range of motion of all the joints without pain or difficulty, no signs for acute trauma. NEUROLOGIC: Oriented x 3, no acute motor or sensory deficits, no focal weakness. SKIN: No rash, no jaundice, no diaphoresis. Course 1641: The patient was evaluated in room B12B. A complete history and physical examination were performed. 1832: I updated the patient on results. He states that he is doing well. 1942: Orthostatic vital signs were negative. 1955: I checked on the patient. His blood pressure is still low despite administration of fluids, and he still feels dizzy. The patients blood pressure is not usually low per medical records. 2009: Dr. Damian [facility] Hospitalist was notified of the patient. The patient will be reevaluated for hospitalization. 2100: The hospitalist is currently in the room evaluating the patient. Administered Medications Discontinued Medications Acetaminophen (Ofirmev) 1,000 mg in 100 mls @ 400 mls/hr IV NOW STA Stop: 10/19/18 17:03 Last Infusion: 10/19/18 17:59 Dose: 0 mls/hr Documented by: [id number] Admin: 10/19/18 17:43 Dose: 400 mls/hr Documented by: [id number] Sodium Chloride (Nss) 500 mls @ 999 mls/hr IV .Q31M NIKOLAI Stop: 10/19/18 17:30 Last Infusion: 10/19/18 18:12 Dose: 0 mls/hr Documented by: [id number] Admin: 10/19/18 17:43 Dose: 999 mls/hr Documented by: [id number] Sodium Chloride (Nss 1000ml) 500 mls @ 999 mls/hr IV .Q31M ONE Stop: 10/19/18 18:27 Last Infusion: 10/19/18 18:12 Dose: 0 mls/hr Documented by: [id number] Admin: 10/19/18 17:59 Dose: 999 mls/hr Documented by: [id number] Sodium Chloride (Nss 1000ml) 500 mls @ 999 mls/hr IV .Q31M ONE Stop: 10/19/18 19:05 Last Infusion: 10/19/18 19:21 Dose: 0 mls/hr Documented by: [id number] Admin: 10/19/18 18:46 Dose: 999 mls/hr Documented by: [id number] Ondansetron HCl (Zofran) 4 mg IV NOW STA Stop: 10/19/18 16:50 Last Admin: 10/19/18 17:43 Dose: 4 mg Documented by: [id number] Medical Decision Making Differential Diagnosis Differential diagnosis: angina, NM, dysrhythmia, musculoskeletal pain, orthostasis, over-exertion, anemia, electrolyte imbalance, intracranial bleeding Medical Records Attestation: I reviewed the patient's medical records. Home Medications Current Medication List: was personally reviewed by me Laboratory Data Attestation: I reviewed the patient's lab results. Result diagrams: 10/19/18 17:01 10/19/18 17:01 Lab Results 10/19/18 10/19/18 10/19/18 Range/Units 17:01 17:01 17:06 WBC 7.67 (4.8-10.8) K/uL RBC 4.59 L (4.7-6.1) M/uL Hgb 15.7 (14.0-18.0) g/dL Hct 42.9 (42-52) % MCV 93.5 (80-100) fL MCH 34.2 H (25-34) pg MCHC 36.6 H (32-36) g/dL RDW Std Deviation 43.8 (36.4-46.3) fL RDW Coeff of Gissel 12.9 (11.5-14.5) % Plt Count 171 (130-400) K/uL MPV 10.5 H (7.4-10.4) fL Immature Gran % (Auto) 1.2 % Neut % (Auto) 69.2 % Lymph % (Auto) 17.9 % [place] % (Auto) 8.3 % Eos % (Auto) 2.9 % Baso % (Auto) 0.5 % Immature Gran # (Auto) 0.09 H (0.00-0.02) K/uL Neut # (Auto) 5.31 (1.4-6.5) K/uL Lymph # (Auto) 1.37 (1.2-3.4) K/uL [place] # (Auto) 0.64 H (0.11-0.59) K/uL Eos # (Auto) 0.22 (0-0.5) K/uL Baso # (Auto) 0.04 (0-0.2) K/uL Sodium 139 (136-145) mmol/L Potassium 4.2 (3.5-5.1) mmol/L Chloride 110 H (98-107) mmol/L Carbon Dioxide 25 (21-32) mmol/L Anion Gap 4.0 (3-11) BUN 17 (7-18) mg/dl Creatinine 1.83 H (0.6-1.4) mg/dl Est Cr Clr Drug Dosing 42.4 ml/min Est GFR ( Amer) 41.8 Est GFR (Non-Af Amer) 36.1 BUN/Creatinine Ratio 9.4 L (10-20) Glucose 121 H (70-99) mg/dl Calcium 8.7 (8.5-10.1) mg/dl Magnesium 2.2 (1.8-2.4) mg/dl Total Bilirubin 0.6 (0.2-1) mg/dl AST 34 (15-37) U/L ALT 44 (12-78) U/L Alkaline Phosphatase 77 (45-117) U/L POC Troponin I < 0.03 (0-0.045) ng/ml Total Protein 6.4 (6.4-8.2) gm/dl Albumin 3.3 L (3.4-5.0) gm/dl Globulin 3.1 (2.5-4.0) gm/dl Albumin/Globulin Ratio 1.1 (0.9-2) Lipase 87 (73-393) U/L Urine Color Urine Appearance (Clear) Urine pH (4.5-7.5) Ur Specific [place] (1.000-1.030) Urine Protein (Negative) Urine Glucose (UA) (Negative) Urine Ketones (Negative) Urine Blood (Negative) Urine Nitrite (Negative) Urine Bilirubin (Negative) Urine Urobilinogen (Negative) Ur Leukocyte Esterase (Negative) Urine WBC (Auto) (0-5) /hpf Urine RBC (Auto) (0-4) /hpf U Hyaline Cast (Auto) (0-5) /lpf U Epithel Cells (Auto) (0-5) /lpf Urine Bacteria (Auto) (Negative) Urine Crystals Calcium Oxalate Crystal (None Prsent) 10/19/18 10/19/18 Range/Units 19:10 20:09 WBC (4.8-10.8) K/uL RBC (4.7-6.1) M/uL Hgb (14.0-18.0) g/dL Hct (42-52) % MCV (80-100) fL MCH (25-34) pg MCHC (32-36) g/dL RDW Std Deviation (36.4-46.3) fL RDW Coeff of Gissel (11.5-14.5) % Plt Count (130-400) K/uL MPV (7.4-10.4) fL Immature Gran % (Auto) % Neut % (Auto) % Lymph % (Auto) % [place] % (Auto) % Eos % (Auto) % Baso % (Auto) % Immature Gran # (Auto) (0.00-0.02) K/uL Neut # (Auto) (1.4-6.5) K/uL Lymph # (Auto) (1.2-3.4) K/uL [place] # (Auto) (0.11-0.59) K/uL Eos # (Auto) (0-0.5) K/uL Baso # (Auto) (0-0.2) K/uL Sodium (136-145) mmol/L Potassium (3.5-5.1) mmol/L Chloride (98-107) mmol/L Carbon Dioxide (21-32) mmol/L Anion Gap (3-11) BUN (7-18) mg/dl Creatinine (0.6-1.4) mg/dl Est Cr Clr Drug Dosing ml/min Est GFR ( Amer) Est GFR (Non-Af Amer) BUN/Creatinine Ratio (10-20) Glucose (70-99) mg/dl Calcium (8.5-10.1) mg/dl Magnesium (1.8-2.4) mg/dl Total Bilirubin (0.2-1) mg/dl AST (15-37) U/L ALT (12-78) U/L Alkaline Phosphatase (45-117) U/L POC Troponin I < 0.03 (0-0.045) ng/ml Total Protein (6.4-8.2) gm/dl Albumin (3.4-5.0) gm/dl Globulin (2.5-4.0) gm/dl Albumin/Globulin Ratio (0.9-2) Lipase (73-393) U/L Urine Color Dark Yellow Urine Appearance Cloudy A (Clear) Urine pH 5.0 (4.5-7.5) Ur Specific [place] 1.031 H (1.000-1.030) Urine Protein Trace H (Negative) Urine Glucose (UA) Negative (Negative) Urine Ketones Trace H (Negative) Urine Blood Negative (Negative) Urine Nitrite Negative (Negative) Urine Bilirubin Negative (Negative) Urine Urobilinogen Negative (Negative) Ur Leukocyte Esterase Negative (Negative) Urine WBC (Auto) 1-5 (0-5) /hpf Urine RBC (Auto) 5-10 H (0-4) /hpf U Hyaline Cast (Auto) >30 H (0-5) /lpf U Epithel Cells (Auto) >30 H (0-5) /lpf Urine Bacteria (Auto) 1+ H (Negative) Urine Crystals Not Reportable Calcium Oxalate Crystal Present A (None Prsent) Imaging Data Radiologist's Impression: Radiology results as stated below per my review and the radiologist's interpre tation: XR chest 1V portable CLINICAL HISTORY: Chest Pain COMPARISON STUDY: Chest CT May 17, 2018. FINDINGS: Lung volumes are normal. There is no pneumothorax or pleural effusion. There is no consolidation or evidence for pulmonary edema. Cardiac size is normal. Mediastinal contours are normal. Appearance of the chest is unchanged. IMPRESSION: No acute cardiopulmonary findings. Electronically signed by: Barber Finnegan M.D. 10/19/2018 5:[address] OF THE HEAD WITHOUT CONTRAST CLINICAL HISTORY: Left-sided headache. COMPARISON STUDY: Head CT December 22, 2017. MRI of the brain December 23, 2017. CT DOSE: 614.27 mGy.cm TECHNIQUE: Helical axial images of the head were obtained without IV contrast. Automated exposure control was utilized for the study. A dose lowering technique was utilized adhering to the principles of ALARA. FINDINGS: No acute intracranial hemorrhage, midline shift or mass effect is present. Ventricular system is normal. Basilar cisterns are patent. There are no extra-axial collections. [place]aza-white differentiation is maintained. Mild white matter hypodensity suggests small vessel disease. There are no findings to suggest acute dural sinus thrombosis or acute territorial infarct. The appearance of the brain is unchanged. There are no significant calvarial abnormalities. Postoperative findings within the sinuses are noted. Sinuses are clear. IMPRESSION: No acute intracranial findings. Electronically signed by: Barber Finnegan M.D. 10/19/2018 5:43 PM ECG Data Attestation: I personally reviewed and interpreted this ECG as follows: Indication: chest pain Rate (beats per minute): 59 Rhythm: sinus bradycardia Findings: + other (old inferior and possible old lateral infarcts) and + nonspecific-ST abn Comparison ECG Date: from (05/17/18) Change: no significant change Blood Pressure Blood Pressure Findings: Low blood pressure Blood Pressure Disposition: further management by hospitalist [facility] Narrative There is no leukocytosis or concerning anemia. Renal panel testing does show some acute on chronic renal insufficiency with a creatinine of 1.8. Glucose was 121. No findings of hepatitis or pancreatitis. EKG shows a sinus bradycardia, no acute ischemia. Cardiac enzyme testing x2 is not consistent with acute cardiac injury. Chest film does not show mediastinal widening, pneumonia or pneumothorax. Brain CT shows no acute bleed or mass-effect. Urinalysis result is pending. The patient received IV Tylenol, IV Zofran and IV saline. He received 1.5 L of saline. Orthostatic vital signs were performed. The patient's blood pressure was in the 90s systolic-this was after the saline hydration. He was not truly orthostatic though, his blood pressure remained low in the lying, seated and standing positions. He felt quite dizzy. I reviewed his old records and his blood pressure is not typically this low. At this point, the cause for the hypotension is unclear but I do think this is what caused his near syncopal spell at home. As he is persistently hypotensive despite fluids, I do think a hospital stay is warranted. With regard to the left chest and neck pain, this does seem reproducible and I suspect is likely musculoskeletal. I spoke to the patient and special education case manager. The on-call hospitalist was consulted. Impression & Plan Hypotension, Near syncope, Precordial chest pain, Dizziness, JUANCARLOS (acute kidney injury) Discharge Plan Visit Data Chief Complaint: Cardiac Assessment Stated Complaint: CHEST PAIN ED Provider: Jonny El Discharge Problem: Hypotension, Near syncope, Precordial chest pain, Dizziness, JUANCARLOS (acute kidney injury) Patient Disposition: Being Evaluated by Hospitalist Forms Stand Alone Forms: My [facility] Prescriptions Prescriptions: No Action Lantus U-100 Insulin 100 unit/mL Solution 35 unit SUBCUT HS RF: 0 insulin lispro [Humalog KwikPen Insulin] 100 unit/mL Insulin Pen 20 - 30 unit SUBCUT AC RF: 0 ranitidine HCl 300 mg Tablet 300 mg PO HS RF: 0 topiramate [Topamax] 100 mg Tablet 100 mg PO BID RF: 0 pantoprazole 40 mg Tablet,Delayed Release (Dr/Ec) 40 mg PO QAM RF: 0 isosorbide mononitrate 120 mg Tablet Extended Release 24 Hr 120 mg PO QAM RF: 0 citalopram 20 mg Tablet 20 mg PO 3XWK RF: 0 citalopram 40 mg Tablet 40 mg PO 4XWK RF: 0 pravastatin 40 mg Tablet 40 mg PO QPM RF: 0 aspirin 81 mg Tablet,Chewable 81 mg PO 3XWK RF: 0 propranolol 10 mg Tablet 10 mg PO BID RF: 0 Referrals Referrals: Fox Moran MD [Primary Care Provider] - Discharge Problem: Hypotension Qualifiers: Hypotension type: unspecified hypotension type Qualified Code(s): I95.9 - Hypotension, unspecified The scribe's documentation has been prepared under my direction and personally reviewed by me in its entirety. I confirm that the note above accurately reflects all work, treatment, procedures, and medical decision making performed by me.
[2018-10-19 17:13] LABS: Basophils # (auto) 0.04 K/uL (0-0.2); Basophils % (auto) 0.5 %; Eosinophils # (auto) 0.22 K/uL (0-0.5); Eosinophils % (auto) 2.9 %; Hematocrit (blood only) 42.9 % (42-52); Hemoglobin 15.7 g/dL (14.0-18.0); Immature Granulocytes # (auto) 0.09 K/uL (0.00-0.02); Immature Granulocytes % (auto) 1.2 %; Lymphocytes # (auto) 1.37 K/uL (1.2-3.4); Lymphocytes % (auto) 17.9 %; Mean Corpuscular Hgb Conc 36.6 g/dL (32-36); Mean Corpuscular Volume 93.5 fL (80-100); Mean Platelet Volume 10.5 fL (7.4-10.4); Monocytes # (auto) 0.64 K/uL (0.11-0.59); Monocytes % (auto) 8.3 %; Neutrophils # (auto) 5.31 K/uL (1.4-6.5); Neutrophils % (auto) 69.2 %; Platelet Count 171 K/uL (130-400); RDW Coefficient of Variation 12.9 % (11.5-14.5); RDW Standard Deviation 43.8 fL (36.4-46.3); Red Blood Count 4.59 M/uL (4.7-6.1); White Blood Count 7.67 K/uL (4.8-10.8)
[2018-10-19 17:31] LABS: Albumin Level 3.3 gm/dl (3.4-5.0); BUN Creatinine Ratio 9.4 (10-20); Calcium 8.7 mg/dl (8.5-10.1); Creatinine Clr Calc Pharmacy 42.4 ml/min; Est GFR (African American) 41.8; Est GFR (Non-African American) 36.1; Magnesium 2.2 mg/dl (1.8-2.4); Potassium 4.2 mmol/L (3.5-5.1)
[2018-10-19 17:33] LABS: Albumin Globulin Ratio 1.1 (0.9-2); Bilirubin,Total 0.6 mg/dl (0.2-1); Globulin 3.1 gm/dl (2.5-4.0); Total Protein 6.4 gm/dl (6.4-8.2)
--- NOTE | 2018-10-19 17:36 | XRay Report ---
XR chest 1V portable CLINICAL HISTORY: Chest Pain COMPARISON STUDY: Chest CT May 17, 2018. FINDINGS: Lung volumes are normal. There is no pneumothorax or pleural effusion. There is no consolid ation or evidence for pulmonary edema. Cardiac size is normal. Mediastinal contours are normal. Appea isaiah of the chest is unchanged. IMPRESSION: No acute cardiopulmonary findings. Electronically signed by: Barber Finnegan M.D. 10/19/2018 5:35 PM
--- NOTE | 2018-10-19 17:44 | CT Scan Report ---
CT OF THE HEAD WITHOUT CONTRAST CLINICAL HISTORY: Left-sided headache. COMPARISON STUDY: Head CT December 22, 2017. MRI of the brain December 23, 2017. CT DOSE: 614.27 mGy.cm TECHNIQUE: Helical axial images of the head were obtained without IV contrast. Automated exposure con trol was utilized for the study. A dose lowering technique was utilized adhering to the principles o f ALARA. FINDINGS: No acute intracranial hemorrhage, midline shift or mass effect is present. Ventricular syst em is normal. Basilar cisterns are patent. There are no extra-axial collections. Peraza-white different iation is maintained. Mild white matter hypodensity suggests small vessel disease. There are no findi ngs to suggest acute dural sinus thrombosis or acute territorial infarct. The appearance of the brain is unchanged. There are no significant calvarial abnormalities. Postoperative findings within the si nuses are noted. Sinuses are clear. IMPRESSION: No acute intracranial findings. Electronically signed by: Barber Finnegan M.D. 10/19/2018 5:43 PM
[2018-10-19] MEDS ORDERED: SODIUM CHLORIDE 0.9% 1000ML 500 ML IV ONE ×2 (17:57→18:35)
[2018-10-19 20:28] LABS: Appearance Urine Cloudy (Clear); Blood Urine Negative (Negative); Color Urine Dark Yellow; Epithelial Cell Urine Auto >30 /lpf (0-5); Glucose Urine UA Negative (Negative); Ketones Urine Trace (Negative); Leukocyte Esterase Urine Negative (Negative); Nitrite Urine Negative (Negative); Protein Urine Trace (Negative); Specific Gravity Urine 1.031 (1.000-1.030); Urobilinogen Urine Negative (Negative)
[2018-10-19 20:34] LABS: Bilirubin Urine Negative (Negative); Ictotest Urine Negative (Negative)
[2018-10-19 20:41] LABS: Calcium Oxalate Crystals Urine Present (None Prsent); Cast Urine Automated >30 /lpf (0-5)
[2018-10-19 20:42] LABS: Bacteria Urine Automated 1+ (Negative)
--- NOTE | 2018-10-19 21:54 | History & Physical Report ---
Date of Service October 19, 2018 Assessment & Plan (1) Chest pain: 73-year-old male was admitted on 19 Oct 2018 for chest pain earlier on day of admission. Chest pain: Patient notes crushing, stabbing, pressure-like chest pain beginning around 4 PM on day of admission. Multiple cardiac risk factors including prior SD. Here, says his chest pain improved after IV Tylenol. Pain control options limited by his relative hypotension and JUANCARLOS. TnI negative at 1706 and 1910. Portable chest x-ray noted no acute cardiopulmonary findings. HEART score around 5. Somewhat reassuring he has had this level of pain without EKG or TnI changes thus far. - In the ED patient received IV Tylenol and Zofran. - Will check another TnI and EKG serially. Ordered Lidoderm patch and continued Tylenol prn for pain. - Will check a CT chest non-con to evaluate for other intra-thoracic sources of chest pain given he has not yet chest pain-free. - Consult cardiology. Near-syncope, hypotension: Symptoms began with feeling of near syncope. Never any LOC reported. On arrival had some relative hypotension with systolic in the 90s. EKG with sinus bradycardia, rate 59, with Q waves in lead II. CT of head without contrast noted no acute intracranial findings. - In the ED was treated with two liters NS IVF. - We will continue on some IVF. - Will hold his propranolol and imdur. Acute on chronic renal insufficiency: Admit Cr 1.83, BUN17. Recent comparisons around Cr 1.5. Patient does not note recent V/D or overt volume loss. Does apparently have a history of kidney and prostate issues to include previous kidney stones. Mild left CVA ttp, though patient has chronic back pain as well. UA positive for blood and multiple epithelial cells, negative for WBCs. Urine culture pending. No noted fever or infectious symptoms. - We will hold off on any antibiotics for now. Ongoing medical issues: - Hypertension, hyperlipidemia: Continue home pravastatin, aspirin. --- Held his home propranolol and imdur for hypotension. - Diabetes type 2: At home is on Lantus 35 units nightly plus lispro. Last A1c in record was 8.0 in Jun 2018. --- On insulin sliding scale here. - Diabetic neuropathy: It is unclear if he is also on citalopram for this versus anxiety. - Migraines: Continue home Topamax. - GERD: Continue home pantoprazole and ranitidine. - CVA: Reported previous CVA in 2005, again more recently, both with left-sided weakness. Code status: After discussion with patient as well as /daughter in the room, patient wishes to be DO NOT RESUSCITATE. Diet: Heart healthy, diabetes type 2. N.p.o. at midnight. DVT prophy: Heparin q12h. PT/OT: Deferred. Disbo: Admit to telemetry. (2) Near syncope: (3) Acute on chronic renal insufficiency: (4) Hypotension: (5) Hypertension: (6) Hyperlipidemia: (7) Diabetes: (8) Diabetic neuropathy: (9) Migraines: (10) GERD (gastroesophageal reflux disease): (11) History of CVA (cerebrovascular accident): History of Present Illness Primary Care Provider: Fox Moran MD 73-year-old male presents to the emergency department complaining of initially lightheadedness/presyncope and then later chest pain. - Patient says around 3 PM on day of admission he was lifting bags of grass when he developed dizziness, shortness of breath, nausea, diaphoresis, and "quivering" in his legs. No LOC at that time or subsequently. - Then around 4 PM patient says he developed the acute onset of left-sided chest pressure, stabbing, crushing pain, 10 out of 10 pain scale, that radiated into his neck, left arm, and head. He says he has a previous history of at least 3 MIs and this pain felt like prior MIs. He says normally he would have taken nitroglycerin but that he ran out 2 months ago. EMS was called and patient received 4 baby aspirin. - Presently in the emergency department, patient was noted to have some relative hypotension. He says that this is new for him. He says that after administration of IV Tylenol his chest pain is gone down to a 6 out of 10. He denies any current shortness of breath, nausea, or diaphoresis. Regarding possible morphine use, he says that it once previously "stopped my heart" and thus he has an allergy. - On review of other findings as far in the past medical history, patient says he has a history of migraine headaches. He says his current headache on the left side of his head as well as behind his eye feels like his chronic migraines. He says the current weakness in his left arm and leg is no different than his chronic symptoms since onset of this chest pain. - He says he has a history of his right kidney being "messed up" to include previous kidney stones but he does not elaborate. He says he has seen Dr. Aparicio and Dr. Hobbs for this in the past but details are not clear. He apparently has had lithotripsy and a urinary stent placed previously. At present, he says that he has had some left-sided back pain for about two weeks but just thought it was more like his chronic back pain. He says this does not feel like a previous kidney stone. He also notes about four days of increased urinary frequency, his urine appearing darker than normal, and that it is a lit tle harder to urinate. He denies any dysuria, fevers, vomiting, or general feeling of illness. - Patient says his java jsf developer is Dr. Mejia and was last seen a couple months ago. --- Past medical history includes hypertension, hyperlipidemia, diabetes type 2, diabetic neuropathy, SD in 2004 and subsequently, migraines, right-sided kidney stone, osteoarthritis, CVA x2 with left-sided weakness, potentially prostate issues. --- Past surgical history includes single cardiac stent, left knee arthroscopy, carpal tunnel release, lithotripsy, lumbar discectomy, ORIF left ankle, tonsillectomy and adenoidectomy, UPPP. --- Social history includes having smoked on and off his entire life, quitting most recently 2015, with a perhaps 21-[id number]-veim history. Says that he used to drink alcohol heavily daily but quit about 3 years ago. Presently lives with his at home. Allergies Allergy/AdvReac Type Severity Reaction Status Date / Time morphine AdvReac Severe "STOPS MY Verified 10/19/18 17:38 HEART" trazodone AdvReac Intermediate GI UPSET Verified 10/19/18 17:38 diazepam AdvReac Mild HALLUCINATE Verified 10/19/18 17:38 S propoxyphene AdvReac Mild DRUG Verified 10/19/18 17:38 INTOLERANCE Home Medications Home Medications Medication Instructions Recorded Confirmed Type aspirin 81 mg PO 3XWK 05/17/18 10/19/18 History citalopram 20 mg PO 3XWK 05/17/18 10/19/18 History citalopram 40 mg PO 4XWK 05/17/18 10/19/18 History isosorbide mononitrate 120 mg PO QAM 05/17/18 10/19/18 History pantoprazole 40 mg PO QAM 05/17/18 10/19/18 History pravastatin 40 mg PO QPM 05/17/18 10/19/18 History propranolol 10 mg PO BID 05/17/18 10/19/18 History ranitidine HCl 300 mg PO HS 05/17/18 10/19/18 History topiramate [Topamax] 100 mg PO BID 05/17/18 10/19/18 History Lantus U-100 Insulin 35 unit SUBCUT HS 07/17/18 10/19/18 History insulin lispro [Humalog KwikPen 20 - 30 unit SUBCUT AC 07/17/18 10/19/18 History Insulin] diclofenac sodium [Voltaren] 2 gm TOP QID #100 gm 10/20/18 Rx Past Med/Surg History Medical History Kidney stone on right side (Acute) Migraines, neuralgic Neurological deficit present Diabetes mellitus, type 2 History of colon polyps Hyperlipidemia Hypertension Myocardial Infarction 2004--follows with Dr. Mejia Neuropathy Osteoarthritis Surgical History History of arthroscopy of left knee History of cardiac cath x3-4, last 2014 History of carpal tunnel release of both wrists History of colonoscopy History of heart artery stent x1--1998 History of lithotripsy x2 History of lumbar discectomy x2 History of open reduction and internal fixation (ORIF) procedure left ankle--hardware in place History of right cataract extraction History of tonsillectomy and adenoidectomy Status post uvulopalatopharyngoplasty Family History Father Family history of diabetes mellitus Family hx of colon cancer Other No family history of adverse response to anesthesia Social History Preferred Language: Sinhala Communication Ability: Effective Leasing Associate Required: No Beliefs That Will Affect Care: None marital status: Current Living Situation: Spouse Feels Safe at Home: Yes Safety Concerns: Feels Safe At This Time Smoking Status: Former smoker Do You Dip or Chew Tobacco: No Smoking End Date: 2015 Second Hand Exposure: No Hx Alcohol Use: No Hx Substance Use: No Review of Systems Review of Systems: Constitutional: Denies fevers, chills, focal weakness Eyes: Denies any visual loss or diplopia ENT: Denies any ear/nose/throat pain or difficulty speaking or swallowing Respiratory: Denies any dyspnea, cough, hemoptysis Cardiovascular: Positive chest pain. Denies feeling of edema Gastrointestinal: Denies any abdominal pain, vomiting/diarrhea Musculoskeletal: Denies any acute extremity pains, myalgias. Positive chronic left-sided weakness. Skin: Denies any known acute rashes or lesions Neuro: Positive headache. Denies any acute focal weakness or numbness, or diff iculties with speech or swallow. Psych: Denies any recent depression or anxiety Endocrine: Denies any heat or cold intolerance. Hematologic: Denies any easy bleeding or bruising Physical Exam Physical Exam: GENERAL: Awake, alert, well-appearing, speaking easily in full sentences, in no acute distress HENT: Normocephalic, atraumatic. Oropharynx unremarkable. EYES: Normal conjunctiva. Sclera non-icteric. NECK: Inspection normal. Non-tender. Supple and full ROM. No nuchal rigidity. CARDIAC: +S1S2 regular bradycardia, no murmurs. RESPIRATORY: Clear to auscultation. No wheezes or rales. Normal respiratory effort. GI: +BS, soft, non-distended. No tenderness to palpation. No rebound or guardi ng. EXTREMITIES: No pedal edema or calf tenderness. Moving all extremities naturally and easily. NEURO: Patient states he has decreased but intact sensation throughout his left arm and left leg, unchanged from chronic feeling. Strength 5-/5 in LUE and LLE. Strength 5/5 on right. Results & Data Vital Signs (Past 12 Hours) Vital Signs Temp Pulse Resp BP Pulse Ox 10/19/18 21:31 53 L 17 112/64 95 10/19/18 21:01 53 L 20 94/57 L 10/19/18 20:31 52 L 18 101/65 10/19/18 20:01 51 L 11 L 106/62 10/19/18 20:00 52 L 16 10/19/18 19:40 53 L 13 91/57 L 95 10/19/18 19:01 55 L 16 100/68 10/19/18 18:31 59 L 17 100/61 10/19/18 18:01 55 L 18 104/57 L 10/19/18 17:43 60 14 97/65 L 94 10/19/18 17:03 62 12 98/67 L 93 10/19/18 16:50 96 10/19/18 16:36 36.8 C 76 18 103/67 96 Laboratory Results 10/19/18 10/19/18 10/19/18 Range/Units 20:09 19:10 17:06 WBC (4.8-10.8) K/uL RBC (4.7-6.1) M/uL Hgb (14.0-18.0) g/dL Hct (42-52) % MCV (80-100) fL MCH (25-34) pg MCHC (32-36) g/dL RDW Std Deviation (36.4-46.3) fL RDW Coeff of Gissel (11.5-14.5) % Plt Count (130-400) K/uL MPV (7.4-10.4) fL Immature Gran % (Auto) % Neut % (Auto) % Lymph % (Auto) % Wilcox % (Auto) % Eos % (Auto) % Baso % (Auto) % Immature Gran # (Auto) (0.00-0.02) K/uL Neut # (Auto) (1.4-6.5) K/uL Lymph # (Auto) (1.2-3.4) K/uL Wilcox # (Auto) (0.11-0.59) K/uL Eos # (Auto) (0-0.5) K/uL Baso # (Auto) (0-0.2) K/uL Sodium (136-145) mmol/L Potassium (3.5-5.1) mmol/L Chloride (98-107) mmol/L Carbon Dioxide (21-32) mmol/L Anion Gap (3-11) BUN (7-18) mg/dl Creatinine (0.6-1.4) mg/dl Est Cr Clr Drug Dosing ml/min Est GFR ( Amer) Est GFR (Non-Af Amer) BUN/Creatinine Ratio (10-20) Glucose (70-99) mg/dl Calcium (8.5-10.1) mg/dl Magnesium (1.8-2.4) mg/dl Total Bilirubin (0.2-1) mg/dl AST (15-37) U/L ALT (12-78) U/L Alkaline Phosphatase (45-117) U/L POC Troponin I < 0.03 < 0.03 (0-0.045) ng/ml Total Protein (6.4-8.2) gm/dl Albumin (3.4-5.0) gm/dl Globulin (2.5-4.0) gm/dl Albumin/Globulin Ratio (0.9-2) Lipase (73-393) U/L Urine Color Dark Yellow Urine Appearance Cloudy A (Clear) Urine pH 5.0 (4.5-7.5) Ur Specific Gibbon 1.031 H (1.000-1.030) Urine Protein Trace H (Negative) Urine Glucose (UA) Negative (Negative) Urine Ketones Trace H (Negative) Urine Blood Negative (Negative) Urine Nitrite Negative (Negative) Urine Bilirubin Negative (Negative) Urine Urobilinogen Negative (Negative) Ur Leukocyte Esterase Negative (Negative) Urine WBC (Auto) 1-5 (0-5) /hpf Urine RBC (Auto) 5-10 H (0-4) /hpf U Hyaline Cast (Auto) >30 H (0-5) /lpf U Epithel Cells (Auto) >30 H (0-5) /lpf Urine Bacteria (Auto) 1+ H (Negative) Urine Crystals Not Reportable Calcium Oxalate Crystal Present A (None Prsent) 10/19/18 10/19/18 Range/Units 17:01 17:01 WBC 7.67 (4.8-10.8) K/uL RBC 4.59 L (4.7-6.1) M/uL Hgb 15.7 (14.0-18.0) g/dL Hct 42.9 (42-52) % MCV 93.5 (80-100) fL MCH 34.2 H (25-34) pg MCHC 36.6 H (32-36) g/dL RDW Std Deviation 43.8 (36.4-46.3) fL RDW Coeff of Gissel 12.9 (11.5-14.5) % Plt Count 171 (130-400) K/uL MPV 10.5 H (7.4-10.4) fL Immature Gran % (Auto) 1.2 % Neut % (Auto) 69.2 % Lymph % (Auto) 17.9 % Wilcox % (Auto) 8.3 % Eos % (Auto) 2.9 % Baso % (Auto) 0.5 % Immature Gran # (Auto) 0.09 H (0.00-0.02) K/uL Neut # (Auto) 5.31 (1.4-6.5) K/uL Lymph # (Auto) 1.37 (1.2-3.4) K/uL Wilcox # (Auto) 0.64 H (0.11-0.59) K/uL Eos # (Auto) 0.22 (0-0.5) K/uL Baso # (Auto) 0.04 (0-0.2) K/uL Sodium 139 (136-145) mmol/L Potassium 4.2 (3.5-5.1) mmol/L Chloride 110 H (98-107) mmol/L Carbon Dioxide 25 (21-32) mmol/L Anion Gap 4.0 (3-11) BUN 17 (7-18) mg/dl Creatinine 1.83 H (0.6-1.4) mg/dl Est Cr Clr Drug Dosing 42.4 ml/min Est GFR ( Amer) 41.8 Est GFR (Non-Af Amer) 36.1 BUN/Creatinine Ratio 9.4 L (10-20) Glucose 121 H (70-99) mg/dl Calcium 8.7 (8.5-10.1) mg/dl Magnesium 2.2 (1.8-2.4) mg/dl Total Bilirubin 0.6 (0.2-1) mg/dl AST 34 (15-37) U/L ALT 44 (12-78) U/L Alkaline Phosphatase 77 (45-117) U/L POC Troponin I (0-0.045) ng/ml Total Protein 6.4 (6.4-8.2) gm/dl Albumin 3.3 L (3.4-5.0) gm/dl Globulin 3.1 (2.5-4.0) gm/dl Albumin/Globulin Ratio 1.1 (0.9-2) Lipase 87 (73-393) U/L Urine Color Urine Appearance (Clear) Urine pH (4.5-7.5) Ur Specific Gibbon (1.000-1.030) Urine Protein (Negative) Urine Glucose (UA) (Negative) Urine Ketones (Negative) Urine Blood (Negative) Urine Nitrite (Negative) Urine Bilirubin (Negative) Urine Urobilinogen (Negative) Ur Leukocyte Esterase (Negative) Urine WBC (Auto) (0-5) /hpf Urine RBC (Auto) (0-4) /hpf U Hyaline Cast (Auto) (0-5) /lpf U Epithel Cells (Auto) (0-5) /lpf Urine Bacteria (Auto) (Negative) Urine Crystals Calcium Oxalate Crystal (None Prsent) Medications Administered Discontinued Medications Acetaminophen (Ofirmev) 1,000 mg in 100 mls @ 400 mls/hr IV NOW STA Stop: 10/19/18 17:03 Last Infusion: 10/19/18 17:59 Dose: 0 mls/hr Documented by: [id number] Admin: 10/19/18 17:43 Dose: 400 mls/hr Documented by: [id number] Sodium Chloride (Nss) 500 mls @ 999 mls/hr IV .Q31M NIKOLAI Stop: 10/19/18 17:30 Last Infusion: 10/19/18 18:12 Dose: 0 mls/hr Documented by: [id number] Admin: 10/19/18 17:43 Dose: 999 mls/hr Documented by: [id number] Sodium Chloride (Nss 1000ml) 500 mls @ 999 mls/hr IV .Q31M ONE Stop: 10/19/18 18:27 Last Infusion: 10/19/18 18:12 Dose: 0 mls/hr Documented by: [id number] Admin: 10/19/18 17:59 Dose: 999 mls/hr Documented by: [id number] Sodium Chloride (Nss 1000ml) 500 mls @ 999 mls/hr IV .Q31M ONE Stop: 10/19/18 19:05 Last Infusion: 10/19/18 19:21 Dose: 0 mls/hr Documented by: [id number] Admin: 10/19/18 18:46 Dose: 999 mls/hr Documented by: [id number] Ondansetron HCl (Zofran) 4 mg IV NOW STA Stop: 10/19/18 16:50 Last Admin: 10/19/18 17:43 Dose: 4 mg Documented by: [id number] Code Status & VTE Plan Code Status DO NOT RESUSCITATE VTE Prophylaxis Plan VTE Prophylaxis will be ordered: Yes Supervising Physician Co-Signing Physician Notes Attending addendum: I have physically seen this patient, have supervised the medical residents activities, and agree with the H&P unless as otherwise noted. Assessment and Plan: Chest pain/CAD/history of SD/relative hypotension- The patient will be admitted to telemetry for serial cardiac enzymes, serial EKG's, cardiac rhythm monitoring and a 2-D echocardiogram with Dopplers. Part of his pain is reproducible, and he reports that he has had prior fractures in the past. Will order CT of chest without contrast to further assess. Consult cardiology. Near syncope/transient hypotension- Negative cardiac and neurologic work-up at this point with negative CT head without contrast. Received 2 L normal saline IV fluid thus far in ED. Continue rehydration with normal saline. Hold propranolol and Imdur for now. Acute kidney injury on chronic kidney disease- Creatinine 1.83 upon admission with baseline 1.5. Rehydrate as noted above. Follow urine culture and sensitivity. Repeat laboratories in a.m. Remainder of orders and notations as noted. Resident Activity Tracking Resident Involvement: Resident Care Provided Care Provided: Adult Hospital Medicine (1) Hypotension Hypotension type: unspecified hypotension type Qualified Code(s): I95.9 - Hypotension, unspecified
--- NOTE | 2018-10-19 22:14 | CT Scan Report ---
CT OF THE CHEST WITHOUT IV CONTRAST CLINICAL HISTORY: ongoing CP, eval for vascular source. Has JUNACARLOS. COMPARISON STUDY: Chest CT May 17, 2018. Chest radiograph performed earlier today. CT DOSE: 729.30 mGy.cm TECHNIQUE: Axial images of the chest were obtained without IV contrast. Images were reviewed in the axial, sagittal, and coronal planes. IV contrast was not administered for this examination. Automat ed exposure control was utilized for the study. A dose lowering technique was utilized adhering to [facility] principles of ALARA. FINDINGS: Extensive coronary artery calcification is noted. There is mild cardiomegaly. No pericardi al effusion is noted. No enlarged axillary, mediastinal or hilar lymph nodes are present. There is no pneumomediastinum. Calcified thoracic lymph nodes indicate a previous granulomatous process. Central airways are patent. There are few calcified granulomas within the lungs. There is no consolidation. No pneumothorax or pleural effusion is noted. No acute rib or thoracic spine fracture is identified. There are calcified granulomas within the liver and spleen. There is probable fatty infiltration of [facility] liver. IMPRESSION: 1. No acute findings within the chest on unenhanced exam. 2. Mild cardiomegaly. Extensive coronary artery calcification. Electronically signed by: Barber Finnegan M.D. 10/19/2018 10:12 PM
--- NOTE | 2018-10-19 23:08 | CT Scan Report ---
CT OF THE ABDOMEN AND PELVIS WITHOUT CONTRAST CLINICAL HISTORY: Abdominal pain. COMPARISON STUDY: CT of the abdomen and pelvis May 17, 2018. TECHNIQUE: Axial images of the abdomen and pelvis were obtained without IV contrast. Images were revi ewed in the axial, sagittal, and coronal planes. Automated exposure control was utilized for the juno dy. A dose lowering technique was utilized adhering to the principles of ALARA. FINDINGS: Fatty infiltration of the liver is noted. There is no biliary or pancreatic ductal dilatati on. There is no peripancreatic or pericholecystic infiltration. There are calcified granulomas within the liver and spleen. The adrenal glands are unremarkable. A few punctate bilateral renal calculi ar e noted. There are no ureteral calculi. There is no hydronephrosis or hydroureter. No pneumatosis, fr ee air or portal venous gas is present. There is no evidence for a bowel obstruction. The appendix is unremarkable. There is no ascites or lymphadenopathy. There are fat-containing bilateral inguinal he rnias. No suspicious osseous lesions are noted. IMPRESSION: 1. Punctate bilateral intrarenal calculi. No ureteral calculi or hydronephrosis. 2. No acute process within the abdomen or pelvis on unenhanced exam. 3. Fatty liver. Electronically signed by: Barber Finnegan M.D. 10/19/2018 11:06 PM
[2018-10-19] MEDS ORDERED: CARBOHYDRATES FOR HYPOGLYCEMIA PO PRN (23:19)
[2018-10-19] MEDS ORDERED: ACETAMINOPHEN 1,000 MG/100 ML VIAL IV PRN (23:19)
[2018-10-19] MEDS ORDERED: GLUCAGON FOR INJ 1 MG VIAL SQ PRN (23:19)
[2018-10-19] MEDS ORDERED: ONDANSETRON INJ 2 MG/ML 2 ML VIAL IV PRN (23:19)
[2018-10-19] MEDS ORDERED: GLUCOSE 40% GEL 15 GM TUBE PO PRN (23:19)
[2018-10-19] MEDS ORDERED: DEXTROSE 50% 50 ML SYRINGE IV PRN (23:19)
[2018-10-19] MEDS ORDERED: GLUCOSE 10 TABS/TUBE PO PRN (23:19)
[2018-10-20] MEDS: LACTATED RINGER'S 1,000 ML IV SCH ×2 (00:18→08:06)
[2018-10-20 05:46] LABS: Basophils # (auto) 0.03 K/uL (0-0.2); Basophils % (auto) 0.6 %; Eosinophils # (auto) 0.15 K/uL (0-0.5); Eosinophils % (auto) 2.9 %; Hematocrit (blood only) 41.5 % (42-52); Immature Granulocytes # (auto) 0.04 K/uL (0.00-0.02); Immature Granulocytes % (auto) 0.8 %; Lymphocytes # (auto) 1.43 K/uL (1.2-3.4); Lymphocytes % (auto) 27.7 %; Mean Corpuscular Hgb Conc 36.1 g/dL (32-36); Mean Corpuscular Volume 92.8 fL (80-100); Mean Platelet Volume 10.4 fL (7.4-10.4); Monocytes # (auto) 0.46 K/uL (0.11-0.59); Monocytes % (auto) 8.9 %; Neutrophils # (auto) 3.06 K/uL (1.4-6.5); Neutrophils % (auto) 59.1 %; Platelet Count 127 K/uL (130-400); RDW Coefficient of Variation 13.1 % (11.5-14.5); RDW Standard Deviation 44.6 fL (36.4-46.3); Red Blood Count 4.47 M/uL (4.7-6.1); White Blood Count 5.17 K/uL (4.8-10.8)
[2018-10-20 06:00] LABS: Prothrombin Time 10.5 Seconds (9.0-12.0)
[2018-10-20 06:14] LABS: BUN Creatinine Ratio 13.7 (10-20); Calcium 8.2 mg/dl (8.5-10.1); Creatinine Clr Calc Pharmacy 60.1 ml/min; Est GFR (African American) 63.8; Potassium 4.2 mmol/L (3.5-5.1)
[2018-10-20] MEDS ORDERED: LIDOCAINE 5% 1 PATCH TD SCH ×2 (08:15→09:00)
[2018-10-20] MEDS: INSULIN ASPART 100 UNITS/ML 3 ML PEN SC SCH ×2 (08:17→12:33)
[2018-10-20] MEDS ORDERED: ACETAMINOPHEN 500 MG TAB PO ONE (08:30)
[2018-10-20] MEDS ORDERED: HEPARIN SOD 5,000 UNIT/0.5 ML VIAL SQ SCH (09:00)
[2018-10-20] MEDS ORDERED: PANTOprazole 40 MG TAB PO SCH (09:00)
[2018-10-20] MEDS ORDERED: CITALOPRAM 40 MG TAB PO SCH (09:00)
[2018-10-20] MEDS ORDERED: TOPIRAMATE 100 MG TAB PO SCH (09:00)
--- NOTE | 2018-10-20 13:02 | Discharge Summary ---
Date of Service October 20, 2018 Admission HPI Per Admitting Provider 73-year-old male presents to the emergency department complaining of initially lightheadedness/presyncope and then later chest pain. - Patient says around 3 PM on day of admission he was lifting bags of grass when he developed dizziness, shortness of breath, nausea, diaphoresis, and "quivering" in his legs. No LOC at that time or subsequently. - Then around 4 PM patient says he developed the acute onset of left-sided chest pressure, stabbing, crushing pain, 10 out of 10 pain scale, that radiated into his neck, left arm, and head. He says he has a previous history of at least 3 MIs and this pain felt like prior MIs. He says normally he would have taken nitroglycerin but that he ran out 2 months ago. EMS was called and patient received 4 baby aspirin. - Presently in the emergency department, patient was noted to have some relative hypotension. He says that this is new for him. He says that after administration of IV Tylenol his chest pain is gone down to a 6 out of 10. He denies any current shortness of breath, nausea, or diaphoresis. Regarding possible morphine use, he says that it once previously "stopped my heart" and thus he has an allergy. - On review of other findings as far in the past medical history, patient says he has a history of migraine headaches. He says his current headache on the left side of his head as well as behind his eye feels like his chronic migraines. He says the current weakness in his left arm and leg is no different than his chronic symptoms since onset of this chest pain. - He says he has a history of his right kidney being "messed up" to include previous kidney stones but he does not elaborate. He says he has seen Dr. Aparicio and Dr. Hobbs for this in the past but details are not clear. He apparently has had lithotripsy and a urinary stent placed previously. At present, he says that he has had some left-sided back pain for about two weeks but just thought it was more like his chronic back pain. He says this does not feel like a previous kidney stone. He also notes about four days of increased urinary frequency, his urine appearing darker than normal, and that it is a little harder to urinate. He denies any dysuria, fevers, vomiting, or general feeling of illness. - Patient says his civil designer is Dr. Mejia and was last seen a couple months ago. --- Past medical history includes hypertension, hyperlipidemia, diabetes type 2, diabetic neuropathy, [place] in 2004 and subsequently, migraines, right-sided kidney stone, osteoarthritis, CVA x2 with left-sided weakness, potentially prostate issues. --- Past surgical history includes single cardiac stent, left knee arthroscopy, carpal tunnel release, lithotripsy, lumbar discectomy, ORIF left ankle, tonsillectomy and adenoidectomy, UPPP. --- Social history includes having smoked on and off his entire life, quitting most recently 2015, with a perhaps [id number] history. Says that he used to drink alcohol heavily daily but quit about 3 years ago. Presently lives with his at home. Principal Diagnosis pectoralis muscle spasm, headache, JUANCARLOS prerenal Discharge Exam Vitals noted as above and within normal limits GENERAL: Awake, alert to person, place, and time, nontoxic-appearing, in no distress HENT: Normocephalic, atraumatic. Mucus membranes appear moist. EYES: Normal conjunctiva. Sclera non-icteric. EOMI. NECK: Supple. Full range of motion. No JVD RESPIRATORY: Clear to auscultation. Normal work of breathing. CARDIAC: Regular rate, normal rhythm. Extremities warm and well perfused, 2+ radial pulses bilaterally; 2+ posterior tibialis pulses bilaterally. CHEST: reproducible tenderness to palpation along left 2nd and 3rd rib at about the mid clavicular line. ABDOMEN: Soft, non-distended. No tenderness to palpation in all four quadrants. No rebound or guarding. No masses. Bowel sounds are normal. LOWER EXTREMITIES: Inspection of calves reveal equal size bilaterally. They are non-tender. No edema. No discoloration. NEURO: No focal gross focal motor deficits noted. Sensation in tact. CN II-XII grossly in tact. SKIN: Rash not present. No jaundice noted. Significant lesions not present. PSYCH: Appropriate mood and affect. Cooperative. Exam as done by Miryam Hurtado MD, Director Athletic. Discharge Data Allergies Allergy/AdvReac Type Severity Reaction Status Date / Time morphine AdvReac Severe "STOPS MY Verified 10/19/18 17:38 HEART" trazodone AdvReac Intermediate GI UPSET Verified 10/19/18 17:38 diazepam AdvReac Mild HALLUCINATE Verified 10/19/18 17:38 S propoxyphene AdvReac Mild DRUG Verified 10/19/18 17:38 INTOLERANCE Consultations 10/19/18 20:03 ED Decision to Admit Stat Ordered Studies 10/19/18 CT abd pelvis wo con Routine 10/19/18 16:49 CT head/brain wo con Stat 10/19/18 21:34 CT chest wo con Stat Hospital Course (1) Chest pain: 73-year-old male was admitted on 19 Oct 2018 for chest pain crushing, stabbing, pressure-like chest pain beginning around 4 PM on day of admission. Chest pain secondary to musculoskeletal (pectoralis minor) spasm -with multiple cardiac risk factors including prior [place], work up included cardiopulmonary etiology rule out. Portable chest x-ray and chest CT (w/o con) n oted no acute cardiopulmonary findings. HEART score around 5. No EKG changes. TnI negative x3. NSR on telemetry. -improved with IV Tylenol. -given reproducibility, recent h/o exertion, given stretching exercises for his pectoralis minor muscle as well as voltaren gel (or lido patches if gel too costly) to be used PRN. Near-syncope, hypotension: -On arrival had some relative hypotension with systolic in the 90s. CT of head without contrast noted no acute intracranial findings. -in the setting of JUANCARLOS, likely a prerenal cause, which both kidney function and symptoms improved with IV hydration in the hospital. -held propranolol and imdur while in hospital, to resume on discharge -recommend better hydration at home, at least 60 ounces water per day. Acute on chronic renal insufficiency: -Admit Cr 1.83, BUN17. Recent comparisons around Cr 1.5. - UA positive for blood and multiple epithelial cells, negative for WBCs. Urine culture NGTD. No noted fever or infectious symptoms. 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 Ongoing medical issues: - Hypertension, hyperlipidemia: Continue home pravastatin, aspirin, propranolol and imdur. - Diabetes type 2: At home is on Lantus 35 units nightly plus lispro. Last A1c in record was 8.0 in Jun 2018. - Diabetic neuropathy: It is unclear if he is also on citalopram for this versus anxiety. - Migraines: Continue home Topamax. - GERD: Continue home pantoprazole and ranitidine. - CVA: Reported previous CVA in 2004, again more recently, both with left-sided weakness. (2) Near syncope: (3) Acute on chronic renal insufficiency: (4) Hypotension: (5) Hypertension: (6) Hyperlipidemia: (7) Diabetes: (8) Diabetic neuropathy: (9) Migraines: (10) GERD (gastroesophageal reflux disease): (11) History of CVA (cerebrovascular accident): Total Time Total Time Spent Total Time Spent (In Minutes): < 30 Discharge Plan Discharge Items Patient Disposition: Home - Self-Care Reason For Visit: CHEST PAIN, PRE-SYNCOPE, RENAL INSUFFICIENCY Discharge Diagnosis: CHEST WALL PAIN, H/O LEFT RIB FRACTURE, JUANCARLOS Condition: Good Discharge Goals: Decrease discomfort, Improve function, Improve nutritional status and Learn about illness Activity: Per 'Additional Instructions' section Bathing: No limitations Exercise/Sports: Gradually increase as tolerated Non-emergency contact: Primary Care Provider Call non-emergency contact if: you have any medication questions, your pain is not controlled and your pain is concerning for you Follow-up/Referrals: ProFox MD [Primary Care Provider] - Diet: Carb Consistent or DM2 and Heart Healthy Addtl Provider Instructions: You were admitted due to acute chest pain, that lingered over the left side of your chest. You also had a severe headache. Work up of your condition included imaging (CAT scans) of your head, chest and abdomen and pelvis -- no abnormalities were found, so there is low risk of you having chest pain due to cardiac/pulmonary/kidney or other major organs. You mentioned that you had broken your left sided rib months ago -- your pain is located over this rib, and when I press down on that area, your pain is reproduced/and worsens. Rib pain can take a long time to resolve -- I suspect you've had a small amount of acute inflammation (maybe due to more lifting recently) that has exacerbated this area. Tylenol, transdermal lidocaine patch and heat in this area are good pain control options. Regarding your kidney function, you did have a slight increase in your creatinine. This has improved immensely with just IV fluids, you were likely dehydrated, which could also explain your feeling like you were going to pass out prior to admission -- please be sure to hydrate properly everyday. Based on your weight, please try to drink at least 70-80 ounces of WATER per day (coffee, tea etc do not count). Please follow up with your PCP in 1-2 weeks from discharge so they can monitor your ongoing progress. If your pain returns and is not improved with heat, tylenol or lidocaine patch, please return to the ER, or if you are concerned. Be well A Bryant BARRERA. Prescriptions: New diclofenac sodium [Voltaren] 1 % gel 2 gm TOP QID Qty: 100 RF: 0 Continued Lantus U-100 Insulin 100 unit/mL Solution 35 unit SUBCUT HS RF: 0 insulin lispro [Humalog KwikPen Insulin] 100 unit/mL Insulin Pen 20 - 30 unit SUBCUT AC RF: 0 ranitidine HCl 300 mg Tablet 300 mg PO HS RF: 0 topiramate [Topamax] 100 mg Tablet 100 mg PO BID RF: 0 pantoprazole 40 mg Tablet,Delayed Release (Dr/Ec) 40 mg PO QAM RF: 0 isosorbide mononitrate 120 mg Tablet Extended Release 24 Hr 120 mg PO QAM RF: 0 citalopram 20 mg Tablet 20 mg PO 3XWK RF: 0 citalopram 40 mg Tablet 40 mg PO 4XWK RF: 0 pravastatin 40 mg Tablet 40 mg PO QPM RF: 0 aspirin 81 mg Tablet,Chewable 81 mg PO 3XWK RF: 0 propranolol 10 mg Tablet 10 mg PO BID RF: 0 Stand-Alone Forms: [facility] Discharge Orders: Discharge Order (Routine); Ordered 10/20/18 Ordered By: Miryam Hurtado Admission Data Admit Date/Time: 10/19/18 22:05 Attending Provider: Clifton Alejandre Admit Provider: Adria Samson Primary Care Provider: Fox Moran Other Providers: Bryan Damian Service: Telemetry Other Interventions: Discharge Summary Assessment (RN) Last Done: 10/20/18 16:29 Pending Studies at Discharge: No DC Date/Time DO NOT enter until pt leaves facility: 10/20/18 16:52 Supervising Physician Co-Signing Physician Notes I personally examined the patient and verified all schultz points of history and exam, discussed case, and agree with decision making with Dr Hurtado. Left upper chest pain, worse with movement and highly reproducible. Present for days upon days. Unremitting, never 0. Cardiac enzymes negative. Vitals noted, in general he is pleasant no distress. HEENT normal cephalic atraumatic mucous membranes moist. Breathing is unlabored no accessory muscle use. Musculoskeletal/osteopathic structural exam shows exquisite and quite reproducible tenderness in his left upper chest wall in the region of pectoralis minor. Post isometric relaxation OMT was done for multiple repetitions with improvement in range of motion. Patient tolerated this well, and I instructed the on how to be able to Perform this at home. Chest paingiven the duration of unremitting for days and days with negative cardiac enzymes, it cannot be cardiac ischemia in etiology. Furthermore, it examines highly consistent with musculoskeletal. Most likely it is intercostal/pectoralis minor pain relating indirectly to his rib fractures and probably most proximally to lifting bags of grass. Stable for home. Voltaren gel to the painful area. Somatic dysfunction rib cageOMT as above, taught how to do this at home. Elevated creatinine/low blood pressure/near syncopeall appears to have been volume depletion related. He notes drinking so little that often his urine is quite dark. We encouraged him to drink more fluids throughout the day setting of a goal of 60 ounces, which seems to be significantly more than he normally takes in. Resident Activity Tracking Resident Involvement: Resident Care Provided Care Provided: Adult Hospital Medicine
[2018-10-20] MEDS ORDERED: PRAVASTATIN SOD 40 MG TAB PO SCH (21:00)
[2018-10-21] MEDS ORDERED: ASPIRIN 81 MG CHEW PO SCH (09:00)
[2018-10-21] MEDS ORDERED: CITALOPRAM 20 MG TAB PO SCH (09:00)
== END 2018-10-20 16:52 | disposition home or self-care (01) | DRG 313 ==
LOC: ED 16:34 → 2S 22:05 → SUATTDRO 22:05 → 2S 22:30

== ENCOUNTER 2019-04-21 08:21 | Inpatient (IN) ==
--- NOTE | 2019-04-21 09:58 | XRay Report ---
XR chest 1V portable CLINICAL HISTORY: Atypical chest pain COMPARISON STUDY: 10/30/2018 FINDINGS: The heart is borderline enlarged. There is no failure. There is no focal pulmonary consolid ation. There are no pleural effusions.[ IMPRESSION: No active disease in the chest. Electronically signed by: Carlos Salazar M.D. 04/21/2019 9:56 AM
--- NOTE | 2019-04-21 10:06 | XRay Report ---
XR tibia fibula LT 2V, XR tibia fibula RT 2V HISTORY: 74 years-old Male BLE swelling, cellulitis acute pain and swelling of the bilateral lower e xtremities COMPARISON: Left ankle radiographs 01/14/2019 TECHNIQUE: 2 views of the bilateral tibia and fibula FINDINGS: LEFT: Mild degenerative changes of the knee. No fractures with ORIF changes of the medial and lateral malle siri. No evidence of hardware complication. Marginal spurring with joint space narrowing of the tibiot alar joint. Possible intra-articular loose bodies of the anterior joint recess. No acute fracture or dislocation. Peripheral arterial calcifications are noted. Mild to moderate soft tissue prominence of the lower leg and ankle. No opaque foreign body. RIGHT: Mild to moderate soft tissue prominence of the lower leg and ankle. Degenerative changes of the ankle and knee. Arterial calcifications are noted. There is no acute fracture, dislocation or opaque forei gn body. IMPRESSION: 1. Mild to moderate bilateral soft tissue swelling. 2. No acute fracture or dislocation. The above report was generated using voice recognition software. It may contain grammatical, syntax o r spelling errors. Electronically signed by: Adria Pan M.D. 04/21/2019 10:04 AM
[2019-04-21 10:13] LABS: Basophils # (auto) 0.02 K/uL (0-0.2); Basophils % (auto) 0.4 %; Eosinophils # (auto) 0.09 K/uL (0-0.5); Eosinophils % (auto) 1.7 %; Hematocrit (blood only) 48.6 % (42-52); Hemoglobin 16.5 g/dL (14.0-18.0); Immature Granulocytes # (auto) 0.04 K/uL (0.00-0.02); Immature Granulocytes % (auto) 0.7 %; Lymphocytes # (auto) 0.97 K/uL (1.2-3.4); Lymphocytes % (auto) 18.1 %; Mean Corpuscular Hemoglobin 33.1 pg (25-34); Mean Corpuscular Volume 97.4 fL (80-100); Mean Platelet Volume 10.9 fL (7.4-10.4); Monocytes # (auto) 0.46 K/uL (0.11-0.59); Monocytes % (auto) 8.6 %; Neutrophils # (auto) 3.79 K/uL (1.4-6.5); Neutrophils % (auto) 70.5 %; Platelet Count 178 K/uL (130-400); RDW Coefficient of Variation 13.2 % (11.5-14.5); Red Blood Count 4.99 M/uL (4.7-6.1); White Blood Count 5.37 K/uL (4.8-10.8)
[2019-04-21 10:24] LABS: Partial Thromboplastin Ratio 0.9; Partial Thromboplastin Time 24.2 Seconds (21.0-31.0); Prothrombin Time 10.3 Seconds (9.0-12.0)
[2019-04-21 10:29] LABS: Alanine Aminotransferase 49 U/L (12-78); Albumin Level 3.8 gm/dl (3.4-5.0); Aspartate Aminotransferase 33 U/L (15-37); BUN Creatinine Ratio 14.8 (10-20); Blood Urea Nitrogen 21 mg/dl (7-18); Calcium 9.7 mg/dl (8.5-10.1); Carbon Dioxide 25 mmol/L (21-32); Chloride 108 mmol/L (98-107); Creatinine Clr Calc Pharmacy 53.4 ml/min; Est GFR (African American) 56.4; Est GFR (Non-African American) 48.7; Glucose 149 mg/dl (70-99); Potassium 4.4 mmol/L (3.5-5.1); Sodium 139 mmol/L (136-145)
[2019-04-21 10:34] LABS: Alkaline Phosphatase 92 U/L (45-117); Bilirubin,Total 0.6 mg/dl (0.2-1); Creatine Kinase 145 U/L (39-308); Creatine Kinase MB 3.9 ng/ml (0.5-3.6); Globulin 3.9 gm/dl (2.5-4.0); NT Pro B Type Natriuretic Pept 169 pg/ml (0-900); Total Protein 7.7 gm/dl (6.4-8.2); Troponin I < 0.015 ng/ml (0-0.045)
--- NOTE | 2019-04-21 10:55 | Emergency Department Note ---
ED Visit Note I have seen and examined this patient with Ector Danielle and generally agree with the treatment plan as discussed. Patient presents with a what appears to be a cellulitis. He is going to go for an ultrasound. On my physical examination the patient has bilateral cellulitis. As the patient was receiving his Dalvance he began complaining of chest pain. He was therefore given nitroglycerin which resulted in the chest pain getting worse. He was then given Dilaudid for his pain. This resulted in the patient having a reaction to the Dilaudid. The patient became disoriented and confused. He was therefore given Narcan for the Dilaudid. This resulted in immediate improvement in the patient's symptoms. He was sent for CAT scan of the head and neck and was discussed with the hospitalist service who agreed to admit the patient. .
--- NOTE | 2019-04-21 11:42 | Ultrasound Report ---
BILATERAL LOWER EXTREMITY VENOUS DOPPLER HISTORY: Acute pain and swelling of the bilateral lower extremities BLE swelling COMPARISON STUDY: Duplex venous Doppler study 06/01/2010 FINDINGS: There is normal compressibility, flow, and augmentation within the bilateral lower extremit y deep venous systems. Lower extremity edema noted. IMPRESSION: No DVT within the right or left lower extremity. Electronically signed by: Adria Pan M.D. 04/21/2019 11:41 AM
[2019-04-21] MEDS ORDERED: DALBAVANCIN IV ONE (12:59)
[2019-04-21] MEDS ORDERED: DEXTROSE 5% IV ONE (12:59)
[2019-04-21] MEDS ORDERED: ASPIRIN CHEW 324 MG PO STA (14:23)
[2019-04-21] MEDS ORDERED: NITROGLYCERIN SL 0.4 MG/TAB TAB SL STA (14:23)
[2019-04-21] MEDS ORDERED: NITROGLYCERIN SL 0.4 MG/TAB TAB SL PRN ×2 (14:24→18:49)
[2019-04-21] MEDS ORDERED: HYDROmorphone INJ 0.5 MG/0.5 ML SYR IV STA (14:41)
[2019-04-21] MEDS ORDERED: ONDANSETRON INJ 2 MG/ML 2 ML VIAL IV STA (14:41)
[2019-04-21] MEDS ORDERED: NITROGLYCERIN 2% OINTMENT 30GM TUBE EXT STA (14:44)
[2019-04-21] MEDS ORDERED: FAMOTIDINE 20 MG TAB PO ONE (14:50)
[2019-04-21] MEDS ORDERED: SUCRALFATE 1 GM TAB PO STA (14:50)
[2019-04-21] MEDS ORDERED: GI COCKTAIL ED USE PO ONE ×2 (14:50→17:14)
[2019-04-21] MEDS ORDERED: NALOXONE HCL 0.4 MG/1 ML VIAL/CARP IV STA (15:00)
[2019-04-21] MEDS ORDERED: NALOXONE HCL 0.4 MG/1 ML VIAL/CARP ONE (15:01)
[2019-04-21] MEDS ORDERED: OPTIRAY 320 125ml IV PRN (15:37)
--- NOTE | 2019-04-21 15:43 | CT Scan Report ---
CT head/brain wo con CLINICAL HISTORY: 74 years-old Male with Pt word aphasia. Acute strokelike symptoms TECHNIQUE: Multiple axial CT images of the head were obtained without contrast. A dose lowering tech nique was utilized adhering to the principles of ALARA. COMPARISON: CTA head neck of same day, CT head 10/19/2018. FINDINGS: No acute intracranial hemorrhage, midline shift, intracranial mass, hydrocephalus, territorial ischem ia or abnormal extra-axial collection. Mild age-related involutional changes. Mild patchy white matte r hypodensities suggest chronic microvascular ischemic disease. Cerebral vascular calcifications are noted. The calvarium is intact. Prior bilateral cataract repair. The paranasal sinuses, mastoid air cells, a nd middle ear cavities are clear. IMPRESSION: No acute intracranial abnormality. The above report was generated using voice recognition software. It may contain grammatical, syntax o r spelling errors. Electronically signed by: Adria Pan M.D. 04/21/2019 3:42 PM
--- NOTE | 2019-04-21 15:51 | CT Scan Report ---
CT angio neck with con, CT angio head w con CLINICAL HISTORY: 74 years-old Male with Pt c/o word aphasia. Acute strokelike symptoms COMPARISON STUDY: Head CT of same day, CTA head and neck 12/22/2017 TECHNIQUE: Following the IV administration of 119 mL of Optiray 320, CT angiogram of the head and nec k was performed from the aortic arch to the skull apex. Images are reviewed in the axial, sagittal, a nd coronal planes. 3-D MIPS images are created and assessed. IV contrast was administered without com plication. All measurements were calculated based on NASCET criteria. A dose lowering technique was utilized adhering to the principles of ALARA. CT DOSE: 1272.13 mGy.cm FINDINGS: The imaged pulmonary arterial tree is unremarkable. Three-vessel morphology of the aortic arch. Paten cy of the imaged bilateral subclavian arteries. Bilateral common carotid arteries are also widely pat ent. Mixed plaque of the bilateral carotid bulbs results in less than 50% luminal narrowing bilateral ly. Patent bilateral internal carotid arteries. Calcified plaque of the cavernous and supraclinoid se gments without high-grade stenosis. The bilateral middle and anterior cerebral arteries are patent an d appear unremarkable. Mixed plaque at the origin of the left vertebral artery results in approximate ly 50% luminal narrowing. Vertebral arteries appear to be codominant. The basilar artery is patent an d unremarkable. origin of the right posterior cerebral artery. Bilateral posterior cerebral art eries are widely patent and unremarkable. Cerebral venous sinuses are also patent. Calcified hilar lymph nodes compatible with prior granulomatous disease. No pneumothorax. The lung ap ices are generally clear. Mild bilateral bronchial wall thickening. Soft tissues of the head and neck are within normal limits. There is no abnormal intra-axial enhancement. Degenerative changes of the spine. IMPRESSION:Unremarkable CTA of the head and neck without aneurysm, dissection, high-grade stenosis or proximal branch occlusion. The above report was generated using voice recognition software. It may contain grammatical, syntax o r spelling errors. Electronically signed by: Adria Pan M.D. 04/21/2019 3:50 PM
--- NOTE | 2019-04-21 16:39 | History & Physical Report ---
Date of Service April 21, 2019 Assessment & Plan (1) Chest pain: Patient with severe left sided chest pain, stabbing in nature. Non- exertional, non-pleuritic. It is very reproducible on exam with palpation of the sternum and rib compression. Suspect musculoskeletal etiology. Troponin x 2 negative, EKG with no acute ischemic changes, unchanged from prior study. However, patient with known CAD as well as HTN, DM, HLP and CKD. -Observation to medical floor with telemetry -Troponin q 8 hours x 2 sets -Continue ASA 81mg - will change to daily -Continue Imdur -Continue Pravastatin -Continue Propranolol -Ofirmev PRN -Continue Voltaren gel Present on Admission?: Yes (2) Bilateral cellulitis of lower leg: Patient with cellulitis of RLE, area warm, red and tender with some scabbed lesions. No drainage/crepitus/bullae or lymphangitic streaking. He was administered Dalvance in the ER -Continue to monitor for systemic infection Present on Admission?: Yes (3) CAD in [place] artery: With CP as above, however, do not strongly suspect cardiac etiology at this time. -Continue ASA, Pravastatin, Propranolol, Imdur -Nitro as needed Present on Admission?: Yes (4) Diabetes mellitus, type 2: Blood sugar presently 112. Last A1C in December = 8.4. Patient typically takes 20 - 30 units of glargine in the AM and 50-65 units of glargine in the evening. -Lantus 20u qAM and 30u qHS for now -ISS with CF of 15 and CR of 5. -Adjust insulin as needed, goal blood sugar 100 - 140 -Carb Consistent diet as tolerated Present on Admission?: Yes (5) GERD (gastroesophageal reflux disease): Chronic -Continue Ranitidine, Protonix -Maalox as needed Present on Admission?: Yes (6) Hyperlipidemia: Chronic -Continue Pravastatin Present on Admission?: Yes (7) Hypertension: Blood pressure mildly elevated at present -Continue home medications, Imdur, Propranolol -Continue to monitor Present on Admission?: Yes (8) Migraines: Presently well controlled. No BAILEY -Continue Topamax -Continue to monitor Present on Admission?: Yes (9) Stage III chronic kidney disease: BUN and Cr are near baseline -Avoid nephrotoxic agents -Renal dosing where appropriate -BMP in AM F/E/N - Heplock. Monitor electrolytes and replete as needed. AHA/CC diet as tolerated Ppx - Heparin for DVT ppx Code - DNR per discussion with patient Dispo - Observation to medical floor with telemetry History of Present Illness Chief Complaint: chest pain Primary Care Provider: Fox Moran MD Tian Blanchard is a 74yo C male with multiple medical problems, HTN/HLP/CAD with PA in 2004 s/p stent, CKD presenting with cellulitis. He woke this AM with redness, swelling and inflammation of his bilateral LE, R > L. He called Dr. Moran and was instructed to come into the ER. He was administered Dalvance and was being prepared for discharged home when he acutely developed severe left sided chest pain, stabbing in nature, 10/10 in severity with radiation to his jaw and shoulders, associated diaphoresis and SOB. He was administered Dilaudid then became unresponsive therefore was administered Narcan with improvement. Then he developed numbness and tingling in his legs bilaterally. A CT head and CTA Head/Neck was obtained which was negative. Still complaining of left sided chest discomfort, non-pleuritic, +positional and worse with movement. Leg tingling has resolved. ER course: Sucralfate, Zofran, Nitro, Narcan, Maalox, ASA, Dilaudid, Pepcid, Dalvance Allergies Allergy/AdvReac Type Severity Reaction Status Date / Time morphine AdvReac Severe "STOPS MY Verified 04/21/19 10:08 HEART" hydromorphone [From Dilaudid] AdvReac Intermediate unresponsiv Verified 04/21/19 21:53 eness trazodone AdvReac Intermediate GI UPSET Verified 04/21/19 10:08 diazepam AdvReac Mild HALLUCINATE Verified 04/21/19 10:08 S propoxyphene AdvReac Mild DRUG Verified 04/21/19 10:08 INTOLERANCE Home Medications Home Medications Medication Instructions Recorded Confirmed Type pantoprazole 40 mg PO QAM 05/17/18 04/21/19 History ranitidine HCl 300 mg PO HS 05/17/18 04/21/19 History topiramate [Topamax] 100 mg PO BID 05/17/18 04/21/19 History diclofenac sodium [Voltaren] 2 gm TOP QID #100 gm 10/20/18 04/21/19 Rx pen needle, diabetic 31 gauge x #30 ea 12/03/18 04/21/19 Rx 5/16" isosorbide mononitrate ER 120 mg 120 mg PO QAM #90 tab 01/08/19 04/21/19 Rx tablet,extended release 24 hr aspirin 81 mg chewable tablet 81 mg PO MOWEFR 02/05/19 04/21/19 History blood sugar diagnostic strips #400 ea 02/05/19 04/21/19 Rx citalopram 20 mg tablet 20 mg PO MOWEFR tab 02/05/19 04/21/19 History insulin glargine (U-100) 100 65 units SQ HS #60 ml 02/05/19 04/21/19 Rx unit/mL (3 mL) subcutaneous pen insulin lispro (U- 100) 100 5 - 35 units SUBCUT AC ml 02/05/19 04/21/19 History unit/mL subcutaneous pen nitroglycerin 0.4 mg sublingual 0.4 mg SL Q5M PRN #1 tab 02/05/19 04/21/19 History tablet clindamycin 1 % lotion 1 appln TOP .COMPLEX #60 ml 03/11/19 04/21/19 Rx propranolol 10 mg tablet 10 mg PO BID #180 tab 03/25/19 04/21/19 Rx mupirocin 2 % topical ointment 1 appln TOP BID #22 gm 04/04/19 04/21/19 Rx citalopram 40 mg PO SUTUTHSA 04/21/19 04/21/19 History pravastatin 40 mg PO HS 04/21/19 04/21/19 History Past Med/Surg History Medical History Myocardial Infarction (Resolved) 2004--follows with Dr. Mejia Hyperlipidemia (Chronic) Hypertension (Chronic) Diabetes mellitus, type 2 (Chronic) Osteoarthritis (Chronic) History of colon polyps (Chronic) Neuropathy (Chronic) Esophageal reflux (Chronic) Benign colonic polyp (Chronic) CAD in [place] artery (Chronic) Cognitive disorder (Chronic) Conversion disorder (Resolved) Diabetic peripheral neuropathy (Chronic) History of tobacco use (Resolved) Nephrolithiasis (Resolved) Raynauds phenomenon (Chronic) Stage III chronic kidney disease (Chronic) Tubular adenoma of colon (Resolved) Vitamin D deficiency (Chronic) Migraines, neuralgic (Chronic) Atypical chest pain (Resolved) Controlled type 2 diabetes mellitus with neurologic complication, with long-term current use of insulin (Resolved) Dyslipidemia (Resolved) Kidney stone on right side (Resolved) Neurological deficit present (Resolved) Wound of left foot (Resolved) Surgical History History of cardiac cath (Resolved) x3-4, last 2014 History of heart artery stent (Resolved) x1--1999 History of right cataract extraction (Resolved) Status post uvulopalatopharyngoplasty (Resolved) History of tonsillectomy and adenoidectomy (Resolved) History of colonoscopy (Resolved) History of lithotripsy (Resolved) x2 History of arthroscopy of left knee (Resolved) History of open reduction and internal fixation (ORIF) procedure (Resolved) left ankle--hardware in place History of carpal tunnel release of both wrists (Resolved) History of lumbar discectomy (Resolved) x2 Family History Father Family history of diabetes mellitus Family hx of colon cancer Other No family history of adverse response to anesthesia Social History Preferred Language: Vietnamese Communication Ability: Effective Brake Lining Maker Required: No Beliefs That Will Affect Care: None marital status: Current Living Situation: Spouse Other Information That Helps Us Care for You: No Feels Safe at Home: Yes Safety Concerns: Feels Safe At This Time Smoking Status: Never smoker Second Hand Exposure: No ; Hx Alcohol Use: No Hx Substance Use: No Review of Systems Review of Systems: All systems reviewed & are unremarkable except as noted in HPI & below +SOB +weight loss +fevers/chills last night +cough Denies abdominal pain, nausea/vomiting/diarrhea or constipation Physical Exam Physical Exam: General: patient resting comfortably, NAD, non-toxic in appearance, AA&O x 4 Skin: warm, dry, redness of bilateral LE, R > L with healing lesions on souza, no crepitus/bullae/lymphangitic streaking HEENT: NC/AT, PERRL, EOMI, anicteric sclera, conjunctiva without injection, external ear normal to inspection and nontender, nares patent, moist mucus membranes, dentition intact, no oropharyngeal lesions, neck supple, trachea midline, no LAD, no thyromegaly, no JVD Heart: +S1/S2, regular, no m/r/g, +CW tenderness reproducible Lungs: equal air entry bilaterally, no rales/rhonchi/wheezes Abd: +BS, soft, NT/ND, no masses/organomegaly/ascites Ext: warm, 2+ pulses in UE/LE bilaterally, no clubbing/cyanosis or edema Neuro: nonfocal, patient AA&O x 4, speech intact, no facial droop, moving all extremities on command with equal strength 5/5 Results & Data Vital Signs (Past 12 Hours) Vital Signs Temp Pulse Resp BP BP Pulse Ox 04/21/19 15:00 18 161/91 H 96 04/21/19 10:30 64 23 150/94 H 96 04/21/19 10:21 63 14 145/92 H 98 04/21/19 08:31 36.6 C 74 18 149/83 H 98 Laboratory Results Lab Results 04/21/19 04/21/19 04/21/19 Range/Units 10:00 10:00 10:00 WBC 5.37 (4.8-10.8) K/uL RBC 4.99 (4.7-6.1) M/uL Hgb 16.5 (14.0-18.0) g/dL Hct 48.6 (42-52) % MCV 97.4 (80-100) fL MCH 33.1 (25-34) pg MCHC 34.0 (32-36) g/dL RDW Std Deviation 47.0 H (36.4-46.3) fL RDW Coeff of Gissel 13.2 (11.5-14.5) % Plt Count 178 (130-400) K/uL MPV 10.9 H (7.4-10.4) fL Immature Gran % (Auto) 0.7 % Neut % (Auto) 70.5 % Lymph % (Auto) 18.1 % [place] % (Auto) 8.6 % Eos % (Auto) 1.7 % Baso % (Auto) 0.4 % Immature Gran # (Auto) 0.04 H (0.00-0.02) K/uL Neut # (Auto) 3.79 (1.4-6.5) K/uL Lymph # (Auto) 0.97 L (1.2-3.4) K/uL [place] # (Auto) 0.46 (0.11-0.59) K/uL Eos # (Auto) 0.09 (0-0.5) K/uL Baso # (Auto) 0.02 (0-0.2) K/uL ESR 21 H (0-14) mm/hr PT (9.0-12.0) Seconds INR (0.9-1.1) APTT (21.0-31.0) Seconds PTT Ratio Sodium 139 (136-145) mmol/L Potassium 4.4 (3.5-5.1) mmol/L Chloride 108 H (98-107) mmol/L Carbon Dioxide 25 (21-32) mmol/L Anion Gap 5.0 (3-11) BUN 21 H (7-18) mg/dl Creatinine 1.42 H (0.6-1.4) mg/dl Est Cr Clr Drug Dosing 53.4 ml/min Est GFR ( Amer) 56.4 Est GFR (Non-Af Amer) 48.7 BUN/Creatinine Ratio 14.8 (10-20) Glucose 149 H (70-99) mg/dl POC Glucose (70-99) POC Lactic Acid Kavon (0.90-1.70) mmol/L Calcium 9.7 (8.5-10.1) mg/dl Total Bilirubin 0.6 (0.2-1) mg/dl AST 33 (15-37) U/L ALT 49 (12-78) U/L Alkaline Phosphatase 92 (45-117) U/L Total Creatine Kinase 145 (39-308) U/L CK-MB (CK-2) 3.9 H (0.5-3.6) ng/ml CK/CKMB % Calc 2.7 (0-3.0) Troponin I < 0.015 (0-0.045) ng/ml NT-Pro-B Natriuret Pep 169 (0-900) pg/ml Total Protein 7.7 (6.4-8.2) gm/dl Albumin 3.8 (3.4-5.0) gm/dl Globulin 3.9 (2.5-4.0) gm/dl Albumin/Globulin Ratio 1.0 (0.9-2) 04/21/19 04/21/19 04/21/19 Range/Units 10:00 10:05 14:11 WBC (4.8-10.8) K/uL RBC (4.7-6.1) M/uL Hgb (14.0-18.0) g/dL Hct (42-52) % MCV (80-100) fL MCH (25-34) pg MCHC (32-36) g/dL RDW Std Deviation (36.4-46.3) fL RDW Coeff of Gissel (11.5-14.5) % Plt Count (130-400) K/uL MPV (7.4-10.4) fL Immature Gran % (Auto) % Neut % (Auto) % Lymph % (Auto) % [place] % (Auto) % Eos % (Auto) % Baso % (Auto) % Immature Gran # (Auto) (0.00-0.02) K/uL Neut # (Auto) (1.4-6.5) K/uL Lymph # (Auto) (1.2-3.4) K/uL [place] # (Auto) (0.11-0.59) K/uL Eos # (Auto) (0-0.5) K/uL Baso # (Auto) (0-0.2) K/uL ESR (0-14) mm/hr PT 10.3 (9.0-12.0) Seconds INR 1.0 (0.9-1.1) APTT 24.2 (21.0-31.0) Seconds PTT Ratio 0.9 Sodium (136-145) mmol/L Potassium (3.5-5.1) mmol/L Chloride (98-107) mmol/L Carbon Dioxide (21-32) mmol/L Anion Gap (3-11) BUN (7-18) mg/dl Creatinine (0.6-1.4) mg/dl Est Cr Clr Drug Dosing ml/min Est GFR ( Amer) Est GFR (Non-Af Amer) BUN/Creatinine Ratio (10-20) Glucose (70-99) mg/dl POC Glucose (70-99) POC Lactic Acid Kavon 1.64 (0.90-1.70) mmol/L Calcium (8.5-10.1) mg/dl Total Bilirubin (0.2-1) mg/dl AST (15-37) U/L ALT (12-78) U/L Alkaline Phosphatase (45-117) U/L Total Creatine Kinase (39-308) U/L CK-MB (CK-2) (0.5-3.6) ng/ml CK/CKMB % Calc (0-3.0) Troponin I < 0.015 (0-0.045) ng/ml NT-Pro-B Natriuret Pep (0-900) pg/ml Total Protein (6.4-8.2) gm/dl Albumin (3.4-5.0) gm/dl Globulin (2.5-4.0) gm/dl Albumin/Globulin Ratio (0.9-2) 04/21/19 04/21/19 04/21/19 Range/Units 15:59 19:04 20:19 WBC (4.8-10.8) K/uL RBC (4.7-6.1) M/uL Hgb (14.0-18.0) g/dL Hct (42-52) % MCV (80-100) fL MCH (25-34) pg MCHC (32-36) g/dL RDW Std Deviation (36.4-46.3) fL RDW Coeff of Gissel (11.5-14.5) % Plt Count (130-400) K/uL MPV (7.4-10.4) fL Immature Gran % (Auto) % Neut % (Auto) % Lymph % (Auto) % [place] % (Auto) % Eos % (Auto) % Baso % (Auto) % Immature Gran # (Auto) (0.00-0.02) K/uL Neut # (Auto) (1.4-6.5) K/uL Lymph # (Auto) (1.2-3.4) K/uL [place] # (Auto) (0.11-0.59) K/uL Eos # (Auto) (0-0.5) K/uL Baso # (Auto) (0-0.2) K/uL ESR (0-14) mm/hr PT (9.0-12.0) Seconds INR (0.9-1.1) APTT (21.0-31.0) Seconds PTT Ratio Sodium (136-145) mmol/L Potassium (3.5-5.1) mmol/L Chloride (98-107) mmol/L Carbon Dioxide (21-32) mmol/L Anion Gap (3-11) BUN (7-18) mg/dl Creatinine (0.6-1.4) mg/dl Est Cr Clr Drug Dosing ml/min Est GFR ( Amer) Est GFR (Non-Af Amer) BUN/Creatinine Ratio (10-20) Glucose (70-99) mg/dl POC Glucose 112 H 126 H 155 H (70-99) POC Lactic Acid Kavon (0.90-1.70) mmol/L Calcium (8.5-10.1) mg/dl Total Bilirubin (0.2-1) mg/dl AST (15-37) U/L ALT (12-78) U/L Alkaline Phosphatase (45-117) U/L Total Creatine Kinase (39-308) U/L CK-MB (CK-2) (0.5-3.6) ng/ml CK/CKMB % Calc (0-3.0) Troponin I (0-0.045) ng/ml NT-Pro-B Natriuret Pep (0-900) pg/ml Total Protein (6.4-8.2) gm/dl Albumin (3.4-5.0) gm/dl Globulin (2.5-4.0) gm/dl Albumin/Globulin Ratio (0.9-2) Diagnostic Findings See formal reports under diagnostic imaging. In summary: Head/Neck CTA - Unremarkable CTA of head and neck without aneurysm, dissection, high-grade stenosis or proximal branch occlusion CT head - no acute intracranial abnormality Venous doppler - no DVT in right or left lower extremity Tibia/Fibula - mild to moderate bilateral soft tissue swelling, no fracture or dislocation CXR - NAD ECG Additional Comments: The study shows NSR at 61bpm, left axis deviation, RK=712, QRS=84, RPq=610, old ischemic changes suggestive of inferior infarct, no acute ischemic changes Code Status & VTE Plan Code Status DNR PG Care Time/CCT Total # of Minutes Spent Total Time Spent with Patient: Total time spent is greater than 50% in coordination of care (as documented) at patient's floor/unit and/or counseling patient: (1) Diabetes mellitus, type 2 Diabetes mellitus complication detail: with polyneuropathy Diabetes mellitus complication status: with neurologic complications Diabetes mellitus [place] insulin use: with [facility] use Qualified Code(s): E11.42 - Type 2 diabetes mellitus with diabetic polyneuropathy; Z79.4 - [facility] (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 (2) Hyperlipidemia Hyperlipidemia type: unspecified Qualified Code(s): E78.5 - Hyperlipidemia, unspecified (3) GERD (gastroesophageal reflux disease) Esophagitis presence: esophagitis presence not specified Qualified Code(s): K21.9 - Gastro-esophageal reflux disease without esophagitis (4) Chest pain Chest pain type: other chest pain Qualified Code(s): R07.89 - Other chest pain; R07.8 - Other chest pain (5) Hypertension Hypertension type: essential hypertension Qualified Code(s): I10 - Essential (primary) hypertension
--- NOTE | 2019-04-21 16:59 | Emergency Department Note ---
History of Present Illness General Chief complaint: Foot Injury/Pain Stated complaint: BOTH FEET INFLAMED Time Seen by Provider: 04/21/19 08:52 History of Present Illness Maximum Pain Intensity: 10 74-year-old male who presents to emergency department with complaint of bilateral leg and foot swelling, and redness of the leg. The patient is concerned that he has cellulitis. The patient reports that he did have a fever last night, and reports that the leg started to swell 2 to 3 days ago, and turned red this morning. The patient reports that he did recently fall and injured his legs. He denied any significant pain with ambulation. The patient is diabetic. He denies any prior history of leg wounds that required referral to a wound clinic. The patient rates his leg discomfort a 3 out of 10. Home Medications Home Medications Medication Instructions Recorded Confirmed Type pantoprazole 40 mg PO QAM 05/17/18 04/21/19 History ranitidine HCl 300 mg PO HS 05/17/18 04/21/19 History topiramate [Topamax] 100 mg PO BID 05/17/18 04/21/19 History diclofenac sodium [Voltaren] 2 gm TOP QID #100 gm 10/20/18 04/21/19 Rx pen needle, diabetic 31 gauge x #30 ea 12/03/18 04/21/19 Rx 5/16" isosorbide mononitrate ER 120 mg 120 mg PO QAM #90 tab 01/08/19 04/21/19 Rx tablet,extended release 24 hr aspirin 81 mg chewable tablet 81 mg PO MOWEFR 02/05/19 04/21/19 History blood sugar diagnostic strips #400 ea 02/05/19 04/21/19 Rx citalopram 20 mg tablet 20 mg PO MOWEFR tab 02/05/19 04/21/19 History insulin glargine (U-100) 100 65 units SQ HS #60 ml 02/05/19 04/21/19 Rx unit/mL (3 mL) subcutaneous pen insulin lispro (U- 100) 100 5 - 35 units SUBCUT AC ml 02/05/19 04/21/19 History unit/mL subcutaneous pen nitroglycerin 0.4 mg sublingual 0.4 mg SL Q5M PRN #1 tab 02/05/19 04/21/19 History tablet clindamycin 1 % lotion 1 appln TOP .COMPLEX #60 ml 03/11/19 04/21/19 Rx propranolol 10 mg tablet 10 mg PO BID #180 tab 03/25/19 04/21/19 Rx mupirocin 2 % topical ointment 1 appln TOP BID #22 gm 04/04/19 04/21/19 Rx citalopram 40 mg PO SUTUTHSA 04/21/19 04/21/19 History pravastatin 40 mg PO HS 04/21/19 04/21/19 History Allergies Allergy/AdvReac Type Severity Reaction Status Date / Time morphine AdvReac Severe "STOPS MY Verified 04/21/19 10:08 HEART" trazodone AdvReac Intermediate GI UPSET Verified 04/21/19 10:08 diazepam AdvReac Mild HALLUCINATE Verified 04/21/19 10:08 S propoxyphene AdvReac Mild DRUG Verified 04/21/19 10:08 INTOLERANCE Past Med/Surg History Medical History Myocardial Infarction (Resolved) 2004--follows with Dr. Mejia Hyperlipidemia (Chronic) Hypertension (Chronic) Diabetes mellitus, type 2 (Chronic) Osteoarthritis (Chronic) History of colon polyps (Chronic) Neuropathy (Chronic) Esophageal reflux (Chronic) Benign colonic polyp (Chronic) CAD in [place] artery (Chronic) Cognitive disorder (Chronic) Conversion disorder (Resolved) Diabetic peripheral neuropathy (Chronic) History of tobacco use (Resolved) Nephrolithiasis (Resolved) Raynauds phenomenon (Chronic) Stage III chronic kidney disease (Chronic) Tubular adenoma of colon (Resolved) Vitamin D deficiency (Chronic) Migraines, neuralgic (Chronic) Atypical chest pain (Resolved) Controlled type 2 diabetes mellitus with neurologic complication, with long-term current use of insulin (Resolved) Dyslipidemia (Resolved) Kidney stone on right side (Resolved) Neurological deficit present (Resolved) Wound of left foot (Resolved) Surgical History History of cardiac cath (Resolved) x3-4, last 2014 History of heart artery stent (Resolved) x1--1998 History of right cataract extraction (Resolved) Status post uvulopalatopharyngoplasty (Resolved) History of tonsillectomy and adenoidectomy (Resolved) History of colonoscopy (Resolved) History of lithotripsy (Resolved) x2 History of arthroscopy of left knee (Resolved) History of open reduction and internal fixation (ORIF) procedure (Resolved) left ankle--hardware in place History of carpal tunnel release of both wrists (Resolved) History of lumbar discectomy (Resolved) x2 Family History Father Family history of diabetes mellitus Family hx of colon cancer Other No family history of adverse response to anesthesia Social History Preferred Language: Lebanese 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 Beliefs That Will Affect Care: None marital status: Current Living Situation: Spouse Other Information That Helps Us Care for You: No Feels Safe at Home: Yes Safety Concerns: Feels Safe At This Time Smoking Status: Never smoker Second Hand Exposure: No ; Hx Alcohol Use: No Hx Substance Use: No Review of Systems 10 system review was performed and was negative except for pertinent positives and negatives as indicated in history of present illness Physical Exam Vital Signs Vital Signs - 24 hr 04/21/19 08:31 04/21/19 10:21 04/21/19 10:30 Temperature 36.6 C Temperature Source Oral Sepsis Recent Fever Within 48 Hours No Sepsis New/Unexplained Change in Mental Status No Sepsis Action Taken by Nursing No Action Required Pulse Rate 74 63 64 Pulse Rate from SpO2 Sensor 63 64 Respiratory Rate 18 14 23 Respiratory Effort / Characteristics Non-Labored Respiratory Depth Normal Respiratory Pattern Blood Pressure 149/83 H 145/92 H 150/94 H Blood Pressure [Right Arm] Blood Pressure Mean 105 109 112 Blood Pressure Mean [Right Arm] Blood Pressure Position [Right Arm] Pulse Oximetry 98 98 96 Oxygen Delivery Method Room Air 04/21/19 11:16 04/21/19 11:30 04/21/19 12:00 Temperature Temperature Source Sepsis Recent Fever Within 48 Hours Sepsis New/Unexplained Change in Mental Status Sepsis Action Taken by Nursing Pulse Rate 63 63 66 Pulse Rate from SpO2 Sensor 62 63 65 Respiratory Rate 24 17 14 Respiratory Effort / Characteristics Respiratory Depth Respiratory Pattern Blood Pressure 152/95 H 152/88 H 140/89 Blood Pressure [Right Arm] Blood Pressure Mean 114 109 106 Blood Pressure Mean [Right Arm] Blood Pressure Position [Right Arm] Pulse Oximetry 98 95 97 Oxygen Delivery Method 04/21/19 12:30 04/21/19 12:31 04/21/19 13:00 Temperature Temperature Source Sepsis Recent Fever Within 48 Hours Sepsis New/Unexplained Change in Mental Status Sepsis Action Taken by Nursing Pulse Rate 68 70 70 Pulse Rate from SpO2 Sensor 68 70 71 Respiratory Rate 18 18 23 Respiratory Effort / Characteristics Respiratory Depth Respiratory Pattern Blood Pressure 155/100 H 161/100 H Blood Pressure [Right Arm] Blood Pressure Mean 118 120 Blood Pressure Mean [Right Arm] Blood Pressure Position [Right Arm] Pulse Oximetry 97 97 98 Oxygen Delivery Method 04/21/19 13:01 04/21/19 13:30 04/21/19 13:31 Temperature Temperature Source Sepsis Recent Fever Within 48 Hours Sepsis New/Unexplained Change in Mental Status Sepsis Action Taken by Nursing Pulse Rate 70 64 64 Pulse Rate from SpO2 Sensor 69 65 63 Respiratory Rate 24 18 22 Respiratory Effort / Characteristics Respiratory Depth Respiratory Pattern Blood Pressure 146/83 H Blood Pressure [Right Arm] Blood Pressure Mean 104 Blood Pressure Mean [Right Arm] Blood Pressure Position [Right Arm] Pulse Oximetry 98 98 99 Oxygen Delivery Method 04/21/19 13:56 04/21/19 14:00 04/21/19 14:30 Temperature Temperature Source Sepsis Recent Fever Within 48 Hours Sepsis New/Unexplained Change in Mental Status Sepsis Action Taken by Nursing Pulse Rate 63 66 62 Pulse Rate from SpO2 Sensor 67 65 62 Respiratory Rate 17 15 13 Respiratory Effort / Characteristics Respiratory Depth Respiratory Pattern Blood Pressure 146/83 H 158/107 H 158/98 H Blood Pressure [Right Arm] Blood Pressure Mean 104 124 118 Blood Pressure Mean [Right Arm] Blood Pressure Position [Right Arm] Pulse Oximetry 98 99 98 Oxygen Delivery Method 04/21/19 14:40 04/21/19 14:50 04/21/19 15:00 Temperature Temperature Source Sepsis Recent Fever Within 48 Hours Sepsis New/Unexplained Change in Mental Status Sepsis Action Taken by Nursing Pulse Rate 65 71 72 Pulse Rate from SpO2 Sensor 65 72 71 Respiratory Rate 17 17 19 Respiratory Effort / Characteristics Non-Labored Spontaneous Respiratory Depth Normal Respiratory Pattern Regular Blood Pressure 149/94 H 141/93 H 162/101 H Blood Pressure [Right Arm] 161/91 H Blood Pressure Mean 112 109 121 Blood Pressure Mean [Right Arm] 114 Blood Pressure Position [Right Arm] Lying Pulse Oximetry 95 95 96 Oxygen Delivery Method Room Air 04/21/19 15:03 04/21/19 15:39 04/21/19 15:55 Temperature Temperature Source Sepsis Recent Fever Within 48 Hours Sepsis New/Unexplained Change in Mental Status Sepsis Action Taken by Nursing Pulse Rate 74 70 63 Pulse Rate from SpO2 Sensor 76 70 64 Respiratory Rate 29 H 20 16 Respiratory Effort / Characteristics Respiratory Depth Respiratory Pattern Blood Pressure 161/91 H 137/87 Blood Pressure [Right Arm] Blood Pressure Mean 114 103 Blood Pressure Mean [Right Arm] Blood Pressure Position [Right Arm] Pulse Oximetry 94 98 98 Oxygen Delivery Method 04/21/19 15:59 04/21/19 16:00 04/21/19 16:30 Temperature Temperature Source Sepsis Recent Fever Within 48 Hours Sepsis New/Unexplained Change in Mental Status Sepsis Action Taken by Nursing Pulse Rate 65 64 73 Pulse Rate from SpO2 Sensor 65 64 70 Respiratory Rate 22 16 15 Respiratory Effort / Characteristics Respiratory Depth Respiratory Pattern Blood Pressure 147/91 H 144/85 H 149/97 H Blood Pressure [Right Arm] Blood Pressure Mean 109 104 114 Blood Pressure Mean [Right Arm] Blood Pressure Position [Right Arm] Pulse Oximetry 97 98 95 Oxygen Delivery Method CONSTITUTIONAL: Healthy and well nourished. Alert and oriented X 3. Patient does not appear in any acute distress. HEENT: Normocephalic, atraumatic. Pupils equal, round and reactive. NECK: Full active range of motion without discomfort. LYMPHATICS: No cervical chain adenopathy. RESPIRATORY: Clear to auscultation bilaterally with no wheezing, crackles, rhonchi or stridor. CARDIOVASCULAR: Regular rate and rhythm with no murmurs, rubs or gallops. GASTROINTESTINAL: Bowel sounds present in all quadrants. Soft and nontender to palpation. MUSCULOSKELETAL: Examination shows bilateral lower extremity edema and shiny skin. 2+ pitting edema is appreciated bilaterally. The patient has evidence for abrasions to both anterior legs with surrounding erythema that extends onto the remainder of the anterior leg. Pedal pulses are intact.. INTEGUMENTARY: No rash or other significant dermatologic conditions noted. HEMATOLOGIC: No ecchymosis or petechiae. PSYCHIATRIC: Positive affect. NEUROLOGIC: No focal neurologic deficits noted. Lower extremities are grossly sensory intact. Course Patient history and physical exam were performed. Nurse's notes were reviewed. Vital signs initially were reviewed. Patient is afebrile. He is mildly hypertensive. Given the patient's significant prior medical history, I did recommend establishing an IV and checking some lab work. I also recommended x- rays and ultrasound studies of the lower extremities as well. The patient was in agreement. IV access was established, and labs were drawn. The patient refused any analgesics on initial exam. Labs were reviewed to show no white count, but bandemia and left shift are noted. CMP was otherwise grossly normal with a mildly elevated creatinine of 1.42. He is noted that the patient has historically mildly elevated. Creatinine clearance was normal. X-rays of bilateral lower extremities were normal. Venous ultrasound of the bilateral lower extremities did not show any DVTs. The case was further discussed with Dr. Gee, ED attending physician, who also evaluated the patient, and agrees that the patient would be a candidate for dalbavancin IV antibiotics, and return to the emergency department 48 hours for recheck. In order was placed for dalbavancin. Shortly after antibiotic was started, the patient started to complain of chest discomfort. I was busy with another patient, therefore the nurse contacted Dr. Gee for further reevaluation. The patient was ordered p.o. aspirin and nitroglycerin. An in itial ECG was performed on his initial presentation, showing a normal sinus rhythm. Repeat ECG at the time of his onset of chest discomfort did not show any acute changes from the prior ECG. With progressively worsening pain, the patient was ordered IV Dilaudid by Dr. Gee. The patient then became hypoxic. The patient was then administered IV Narcan. The patient was also administered a GI cocktail, Pepcid and sucralfate as well. Dr. Gee did discuss the case further with Dr. Amisha Ramos, [facility] hospitalist for further reevaluation. Please see her dictation for further treatment and final disposition. Administered Medications Discontinued Medications Al Hydrox/Mg Hydrox/Simethicone () 1 dose PO ONE ONE Stop: 04/21/19 14:51 Last Admin: 04/21/19 17:18 Dose: 1 dose Documented by: [id number] Al Hydrox/Mg Hydrox/Simethicone () Confirm Administered Dose 1 dose PO .STK-MED ONE Stop: 04/21/19 17:15 Last Admin: 04/21/19 17:25 Dose: Not Given Documented by: [id number] Aspirin (Aspirin) 324 mg PO NOW STA Stop: 04/21/19 14:24 Last Admin: 04/21/19 14:34 Dose: 324 mg Documented by: [id number] Famotidine (Pepcid) 20 mg PO NOW ONE Stop: 04/21/19 14:51 Last Admin: 04/21/19 17:17 Dose: 20 mg Documented by: [id number] Famotidine (Pepcid) Confirm Administered Dose 20 mg .ROUTE .STK-MED ONE Stop: 04/21/19 17:15 Last Admin: 04/21/19 17:25 Dose: Not Given Documented by: [id number] Hydromorphone HCl (Dilaudid) 0.5 mg IV NOW STA Stop: 04/21/19 14:42 Last Admin: 04/21/19 14:45 Dose: 0.5 mg Documented by: [id number] Dalbavancin 1,500 mg/ Dextrose 325 mls @ 650 mls/hr IV NOW ONE Stop: 04/21/19 13:28 Last Infusion: 04/21/19 14:35 Dose: 0 mls/hr Documented by: [id number] Admin: 04/21/19 14:11 Dose: 650 mls/hr Documented by: [id number] Ioversol (Optiray 320 125ml) 119 ml IV ONCE PRN PRN Reason: Interaction Checking Stop: 04/25/19 15:36 Last Admin: 04/21/19 15:37 Dose: 119 ml Documented by: [id number] Naloxone HCl (Narcan) 0.4 mg IV NOW STA Stop: 04/21/19 15:01 Last Admin: 04/21/19 15:05 Dose: 0.4 mg Documented by: [id number] Naloxone HCl (Narcan) Confirm Administered Dose 0.4 mg .ROUTE .STK-MED ONE Stop: 04/21/19 15:02 Last Admin: 04/21/19 17:24 Dose: Not Given Documented by: [id number] Nitroglycerin (Nitrostat) 0.4 mg SL NOW STA Stop: 04/21/19 14:24 Last Admin: 04/21/19 14:34 Dose: 0.4 mg Documented by: [id number] Nitroglycerin (Nitrostat) 0.4 mg SL PRN PRN PRN Reason: Chest Pain Stop: 05/21/19 14:23 Last Admin: 04/21/19 14:42 Dose: 0.4 mg Documented by: [id number] Nitroglycerin (Nitro-Bid 2%) 1 inch EXT NOW STA Stop: 04/21/19 14:45 Last Admin: 04/21/19 17:18 Dose: 1 inch Documented by: [id number] Nitroglycerin (Nitro-Bid 2%) Confirm Administered Dose 18 inch .ROUTE .STK-MED ONE Stop: 04/21/19 17:16 Last Admin: 04/21/19 17:25 Dose: Not Given Documented by: [id number] Ondansetron HCl (Zofran) 4 mg IV NOW STA Stop: 04/21/19 14:42 Last Admin: 04/21/19 17:18 Dose: 4 mg Documented by: [id number] Ondansetron HCl (Zofran) Confirm Administered Dose 4 mg .ROUTE .STK-MED ONE Stop: 04/21/19 17:15 Last Admin: 04/21/19 17:25 Dose: Not Given Documented by: [id number] Sucralfate (Carafate Tab) 1 gm PO NOW STA Stop: 04/21/19 14:51 Last Admin: 04/21/19 17:18 Dose: 1 gm Documented by: [id number] Sucralfate (Carafate Tab) Confirm Administered Dose 1 gm .ROUTE .STK-MED ONE Stop: 04/21/19 17:15 Last Admin: 04/21/19 17:24 Dose: Not Given Documented by: [id number] Medical Decision Making Medical Records Attestation: I reviewed the patient's medical records. Home Medications Current Medication List: was personally reviewed by me Laboratory Data Attestation: I reviewed the patient's lab results. Result diagrams: 04/21/19 10:00 04/21/19 10:00 Lab Results 04/21/19 04/21/19 04/21/19 Range/Units 10:00 10:00 10:00 WBC 5.37 (4.8-10.8) K/uL RBC 4.99 (4.7-6.1) M/uL Hgb 16.5 (14.0-18.0) g/dL Hct 48.6 (42-52) % MCV 97.4 (80-100) fL MCH 33.1 (25-34) pg MCHC 34.0 (32-36) g/dL RDW Std Deviation 47.0 H (36.4-46.3) fL RDW Coeff of Gissel 13.2 (11.5-14.5) % Plt Count 178 (130-400) K/uL MPV 10.9 H (7.4-10.4) fL Immature Gran % (Auto) 0.7 % Neut % (Auto) 70.5 % Lymph % (Auto) 18.1 % [place] % (Auto) 8.6 % Eos % (Auto) 1.7 % Baso % (Auto) 0.4 % Immature Gran # (Auto) 0.04 H (0.00-0.02) K/uL Neut # (Auto) 3.79 (1.4-6.5) K/uL Lymph # (Auto) 0.97 L (1.2-3.4) K/uL [place] # (Auto) 0.46 (0.11-0.59) K/uL Eos # (Auto) 0.09 (0-0.5) K/uL Baso # (Auto) 0.02 (0-0.2) K/uL ESR 21 H (0-14) mm/hr PT (9.0-12.0) Seconds INR (0.9-1.1) APTT (21.0-31.0) Seconds PTT Ratio Sodium 139 (136-145) mmol/L Potassium 4.4 (3.5-5.1) mmol/L Chloride 108 H (98-107) mmol/L Carbon Dioxide 25 (21-32) mmol/L Anion Gap 5.0 (3-11) BUN 21 H (7-18) mg/dl Creatinine 1.42 H (0.6-1.4) mg/dl Est Cr Clr Drug Dosing 53.4 ml/min Est GFR ( Amer) 56.4 Est GFR (Non-Af Amer) 48.7 BUN/Creatinine Ratio 14.8 (10-20) Glucose 149 H (70-99) mg/dl POC Glucose (70-99) POC Lactic Acid Kavon (0.90-1.70) mmol/L Calcium 9.7 (8.5-10.1) mg/dl Total Bilirubin 0.6 (0.2-1) mg/dl AST 33 (15-37) U/L ALT 49 (12-78) U/L Alkaline Phosphatase 92 (45-117) U/L Total Creatine Kinase 145 (39-308) U/L CK-MB (CK-2) 3.9 H (0.5-3.6) ng/ml CK/CKMB % Calc 2.7 (0-3.0) Troponin I < 0.015 (0-0.045) ng/ml NT-Pro-B Natriuret Pep 169 (0-900) pg/ml Total Protein 7.7 (6.4-8.2) gm/dl Albumin 3.8 (3.4-5.0) gm/dl Globulin 3.9 (2.5-4.0) gm/dl Albumin/Globulin Ratio 1.0 (0.9-2) 04/21/19 04/21/19 04/21/19 Range/Units 10:00 10:05 14:11 WBC (4.8-10.8) K/uL RBC (4.7-6.1) M/uL Hgb (14.0-18.0) g/dL Hct (42-52) % MCV (80-100) fL MCH (25-34) pg MCHC (32-36) g/dL RDW Std Deviation (36.4-46.3) fL RDW Coeff of Gissel (11.5-14.5) % Plt Count (130-400) K/uL MPV (7.4-10.4) fL Immature Gran % (Auto) % Neut % (Auto) % Lymph % (Auto) % [place] % (Auto) % Eos % (Auto) % Baso % (Auto) % Immature Gran # (Auto) (0.00-0.02) K/uL Neut # (Auto) (1.4-6.5) K/uL Lymph # (Auto) (1.2-3.4) K/uL [place] # (Auto) (0.11-0.59) K/uL Eos # (Auto) (0-0.5) K/uL Baso # (Auto) (0-0.2) K/uL ESR (0-14) mm/hr PT 10.3 (9.0-12.0) Seconds INR 1.0 (0.9-1.1) APTT 24.2 (21.0-31.0) Seconds PTT Ratio 0.9 Sodium (136-145) mmol/L Potassium (3.5-5.1) mmol/L Chloride (98-107) mmol/L Carbon Dioxide (21-32) mmol/L Anion Gap (3-11) BUN (7-18) mg/dl Creatinine (0.6-1.4) mg/dl Est Cr Clr Drug Dosing ml/min Est GFR ( Amer) Est GFR (Non-Af Amer) BUN/Creatinine Ratio (10-20) Glucose (70-99) mg/dl POC Glucose (70-99) POC Lactic Acid Kavon 1.64 (0.90-1.70) mmol/L Calcium (8.5-10.1) mg/dl Total Bilirubin (0.2-1) mg/dl AST (15-37) U/L ALT (12-78) U/L Alkaline Phosphatase (45-117) U/L Total Creatine Kinase (39-308) U/L CK-MB (CK-2) (0.5-3.6) ng/ml CK/CKMB % Calc (0-3.0) Troponin I < 0.015 (0-0.045) ng/ml NT-Pro-B Natriuret Pep (0-900) pg/ml Total Protein (6.4-8.2) gm/dl Albumin (3.4-5.0) gm/dl Globulin (2.5-4.0) gm/dl Albumin/Globulin Ratio (0.9-2) 04/21/19 Range/Units 15:59 WBC (4.8-10.8) K/uL RBC (4.7-6.1) M/uL Hgb (14.0-18.0) g/dL Hct (42-52) % MCV (80-100) fL MCH (25-34) pg MCHC (32-36) g/dL RDW Std Deviation (36.4-46.3) fL RDW Coeff of Gissel (11.5-14.5) % Plt Count (130-400) K/uL MPV (7.4-10.4) fL Immature Gran % (Auto) % Neut % (Auto) % Lymph % (Auto) % [place] % (Auto) % Eos % (Auto) % Baso % (Auto) % Immature Gran # (Auto) (0.00-0.02) K/uL Neut # (Auto) (1.4-6.5) K/uL Lymph # (Auto) (1.2-3.4) K/uL [place] # (Auto) (0.11-0.59) K/uL Eos # (Auto) (0-0.5) K/uL Baso # (Auto) (0-0.2) K/uL ESR (0-14) mm/hr PT (9.0-12.0) Seconds INR (0.9-1.1) APTT (21.0-31.0) Seconds PTT Ratio Sodium (136-145) mmol/L Potassium (3.5-5.1) mmol/L Chloride (98-107) mmol/L Carbon Dioxide (21-32) mmol/L Anion Gap (3-11) BUN (7-18) mg/dl Creatinine (0.6-1.4) mg/dl Est Cr Clr Drug Dosing ml/min Est GFR ( Amer) Est GFR (Non-Af Amer) BUN/Creatinine Ratio (10-20) Glucose (70-99) mg/dl POC Glucose 112 H (70-99) POC Lactic Acid Kavon (0.90-1.70) mmol/L Calcium (8.5-10.1) mg/dl Total Bilirubin (0.2-1) mg/dl AST (15-37) U/L ALT (12-78) U/L Alkaline Phosphatase (45-117) U/L Total Creatine Kinase (39-308) U/L CK-MB (CK-2) (0.5-3.6) ng/ml CK/CKMB % Calc (0-3.0) Troponin I (0-0.045) ng/ml NT-Pro-B Natriuret Pep (0-900) pg/ml Total Protein (6.4-8.2) gm/dl Albumin (3.4-5.0) gm/dl Globulin (2.5-4.0) gm/dl Albumin/Globulin Ratio (0.9-2) Imaging Data Attestation: I personally reviewed and interpreted this imaging study as follows: My Impression: My interpretation of bilateral leg x-rays does not show any obvious fractures, bony lesions/lysis or radiopaque foreign bodies. Venous ultrasound of bilateral lower extremities are negative for deep vein thrombosis. A portable chest x-ray on initial evaluation did not show any consolidations, pneumothorax or cardiac prominence. Radiologist reports were reviewed. Radiologist's Impression: XR tibia fibula LT 2V, XR tibia fibula RT 2V HISTORY: 74 years-old Male BLE swelling, cellulitis acute pain and swelling of the bilateral lower extremities COMPARISON: Left ankle radiographs 01/14/2019 TECHNIQUE: 2 views of the bilateral tibia and fibula FINDINGS: LEFT: Mild degenerative changes of the knee. No fractures with ORIF changes of the medial and lateral malleoli. No evidence of hardware complication. Marginal spurring with joint space narrowing of the tibiotalar joint. Possible intra- articular loose bodies of the anterior joint recess. No acute fracture or dislocation. Peripheral arterial calcifications are noted. Mild to moderate soft tissue prominence of the lower leg and ankle. No opaque foreign body. RIGHT: Mild to moderate soft tissue prominence of the lower leg and ankle. Degenerative changes of the ankle and knee. Arterial calcifications are noted. There is no acute fracture, dislocation or opaque foreign body. IMPRESSION: 1. Mild to moderate bilateral soft tissue swelling. 2. No acute fracture or dislocation. BILATERAL LOWER EXTREMITY VENOUS DOPPLER HISTORY: Acute pain and swelling of the bilateral lower extremities BLE swelling COMPARISON STUDY: Duplex venous Doppler study 06/01/2010 FINDINGS: There is normal compressibility, flow, and augmentation within the bilateral lower extremity deep venous systems. Lower extremity edema noted. IMPRESSION: No DVT within the right or left lower extremity. XR chest 1V portable CLINICAL HISTORY: Atypical chest pain COMPARISON STUDY: 10/30/2018 FINDINGS: The heart is borderline enlarged. There is no failure. There is no focal pulmonary consolidation. There are no pleural effusions.[ IMPRESSION: No active disease in the chest. ECG Data Attestation: I personally reviewed and interpreted this ECG as follows: Indication: other (Bilateral lower extremity edema) Rate (beats per minute): 61 Rhythm: normal sinus Findings: + left axis deviation Comparison ECG Date: from (10/20/2018) Change: no significant change Additional Comments: Initial ECG did not show any ST elevation or other significant conduction abnormalities. Repeat ECG after onset of chest discomfort again showed a normal sinus rhythm of [address] elevations, Q waves, PVCs or other conduction abnormalities. Blood Pressure Blood Pressure Findings: Elevated blood pressure Blood Pressure Disposition: further management by hospitalist CALEB Blunt Patient presents to emergency department with history and clinical exam findings concerning for bilateral lower extremity cellulitis. Imaging of the lower extremities did not show evidence for DVTs or other bony abnormalities. The patient was being administered IV dalbavancin to hopefully avoid admission, when the patient started to experience chest discomfort. Dyspepsia was consider ed, however given the patient's prior history of myocardial infarction and coronary artery disease, it was felt that the patient warranted further observation for serial ECG and cardiac isoenzymes. I do not suspect sepsis. The patient is normotensive and afebrile. The patient's initial ECG was un remarkable, and a portable chest x-ray did not show evidence for heart failure or consolidations. 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
[2019-04-21] MEDS ORDERED: FAMOTIDINE 20 MG TAB ONE (17:14)
[2019-04-21] MEDS ORDERED: ONDANSETRON INJ 2 MG/ML 2 ML VIAL ONE (17:14)
[2019-04-21] MEDS ORDERED: SUCRALFATE 1 GM TAB ONE (17:14)
[2019-04-21] MEDS ORDERED: NITROGLYCERIN 2% OINTMENT 30GM TUBE ONE (17:15)
[2019-04-21] MEDS ORDERED: GLUCAGON FOR INJ 1 MG VIAL SQ PRN (18:49)
[2019-04-21] MEDS ORDERED: CARBOHYDRATES FOR HYPOGLYCEMIA PO PRN (18:49)
[2019-04-21] MEDS ORDERED: ALUMINUM/MAGNESIUM SUSP 30 ML UDC PO PRN (18:49)
[2019-04-21] MEDS ORDERED: GLUCOSE 10 TABS/TUBE PO PRN (18:49)
[2019-04-21] MEDS ORDERED: ACETAMINOPHEN 1,000 MG/100 ML VIAL IV PRN (18:49)
[2019-04-21] MEDS ORDERED: GLUCOSE 40% GEL 15 GM TUBE PO PRN (18:49)
[2019-04-21] MEDS ORDERED: DEXTROSE 50% 50 ML SYRINGE IV PRN (18:49)
[2019-04-21] MEDS: INSULIN ASPART 100 UNITS/ML 3 ML PEN SC SCH ×2 (19:30→20:40)
[2019-04-21] MEDS: PROPRANOLOL HCL 10 MG TAB PO SCH (20:19)
[2019-04-21] MEDS: PRAVASTATIN SOD 40 MG TAB PO SCH (20:20)
[2019-04-21] MEDS: INSULIN GLARGINE SOLOSTAR 100 UNITS/ML 3 ML PEN SQ SCH (20:28)
[2019-04-21] MEDS: HEPARIN SOD 5,000 UNIT/0.5 ML VIAL SQ SCH (20:29)
[2019-04-21] MEDS: DICLOFENAC SOD 1% GEL 100 GM TUBE EXT SCH (20:29)
[2019-04-21] MEDS: MUPIROCIN 2% OINT 22 GM TUBE TOP SCH (20:30)
[2019-04-21] MEDS: TOPIRAMATE 100 MG TAB PO SCH (21:40)
[2019-04-21 22:43] LABS: Magnesium 2.1 mg/dl (1.8-2.4); Troponin I < 0.015 ng/ml (0-0.045)
[2019-04-22] MEDS: HEPARIN SOD 5,000 UNIT/0.5 ML VIAL SQ SCH ×3 (06:03→20:30)
[2019-04-22 07:02] LABS: Basophils # (auto) 0.01 K/uL (0-0.2); Basophils % (auto) 0.2 %; Eosinophils # (auto) 0.12 K/uL (0-0.5); Eosinophils % (auto) 2.4 %; Hematocrit (blood only) 44.3 % (42-52); Hemoglobin 14.9 g/dL (14.0-18.0); Immature Granulocytes # (auto) 0.03 K/uL (0.00-0.02); Immature Granulocytes % (auto) 0.6 %; Lymphocytes # (auto) 0.91 K/uL (1.2-3.4); Lymphocytes % (auto) 18.5 %; Mean Corpuscular Hemoglobin 32.5 pg (25-34); Mean Corpuscular Hgb Conc 33.6 g/dL (32-36); Mean Corpuscular Volume 96.7 fL (80-100); Mean Platelet Volume 10.7 fL (7.4-10.4); Monocytes # (auto) 0.41 K/uL (0.11-0.59); Monocytes % (auto) 8.4 %; Neutrophils # (auto) 3.43 K/uL (1.4-6.5); Neutrophils % (auto) 69.9 %; Platelet Count 178 K/uL (130-400); RDW Coefficient of Variation 13.1 % (11.5-14.5); RDW Standard Deviation 46.7 fL (36.4-46.3); Red Blood Count 4.58 M/uL (4.7-6.1); White Blood Count 4.91 K/uL (4.8-10.8)
[2019-04-22 07:33] LABS: BUN Creatinine Ratio 12.8 (10-20); Blood Urea Nitrogen 18 mg/dl (7-18); Calcium 8.7 mg/dl (8.5-10.1); Carbon Dioxide 23 mmol/L (21-32); Chloride 108 mmol/L (98-107); Est GFR (African American) 58.4; Est GFR (Non-African American) 50.4; Glucose 136 mg/dl (70-99); Potassium 3.8 mmol/L (3.5-5.1); Sodium 137 mmol/L (136-145)
[2019-04-22 07:37] LABS: Troponin I < 0.015 ng/ml (0-0.045)
[2019-04-22] MEDS: TOPIRAMATE 100 MG TAB PO SCH ×2 (07:41→20:25)
[2019-04-22] MEDS: ISOSORBIDE MONO EXTENDED REL 60 MG TABCR PO SCH (07:41)
[2019-04-22] MEDS: PANTOprazole 40 MG TAB PO SCH (07:41)
[2019-04-22] MEDS: PROPRANOLOL HCL 10 MG TAB PO SCH ×2 (07:41→20:26)
[2019-04-22] MEDS: ASPIRIN 81 MG CHEW PO SCH (07:41)
[2019-04-22] MEDS: MUPIROCIN 2% OINT 22 GM TUBE TOP SCH ×2 (07:42→20:29)
[2019-04-22] MEDS: DICLOFENAC SOD 1% GEL 100 GM TUBE EXT SCH ×4 (07:42→20:29)
[2019-04-22] MEDS: INSULIN ASPART 100 UNITS/ML 3 ML PEN SC SCH ×4 (07:45→20:29)
[2019-04-22] MEDS: INSULIN GLARGINE SOLOSTAR 100 UNITS/ML 3 ML PEN SC SCH (07:45)
[2019-04-22] MEDS ORDERED: CITALOPRAM 40 MG TAB PO SCH (09:00)
[2019-04-22] MEDS ORDERED: OPTIRAY 320 125ml IV PRN (10:13)
--- NOTE | 2019-04-22 10:46 | CT Scan Report ---
CT angio chest PE protocol CLINICAL HISTORY: 74 years-old Male presenting with chest pain and shortness of breath, clinical conc soco for pulmonary embolus. TECHNIQUE: Multidetector CT angiography of the chest was performed after administration of intravenou s contrast. 3-D volumetric and/or maximum intensity projection (MIP) images were subsequently reconst ructed for review. IV contrast: 120 mL of Optiray 320. One or more dose lowering techniques were used consistent with the principles of ALARA (as low as reasonably achievable), including automatic expos ure control, mA or kV adjustment to individual patient size, and/or use of iterative reconstruction. COMPARISON: Noncontrast CT chest from 10/19/2018. CT DOSE (mGy.cm): The estimated cumulative dose is 523.94 mGycm. FINDINGS: R D Manager topogram: Unremarkable. Pulmonary vasculature: The study is adequate for assessment of the pulmonary vascular tree. No filling defect within the pul monary arteries to suggest embolus. Main pulmonary artery is not enlarged. No flattening of the inter ventricular septum. No intracardiac filling defect. No reflux of contrast into the hepatic veins. Remaining chest: Soft tissues: Normal thyroid and thoracic inlet. Gynecomastia. No axillary, supraclavicular, mediasti nal, or hilar lymphadenopathy. Atherosclerosis of the aorta. Tortuosity of the branch vessels may sug gest chronic hypertension. Normal heart size. Coronary artery and aortic valve calcification. No bessie cardial or pleural effusion. Small pleural nodule, which is partially calcified and may contain fat n oted at the paramediastinal right posterior costophrenic sulcus, possibly old fat necrosis. Punctate calcifications in the splenic parenchyma suggesting history of granulomatous disease. Trace sliding t ype hiatal hernia. Lungs and airways: No pneumothorax. Central airways patent. Pulmonary arteries are mildly enlarged re lative to adjacent bronchi. Trace interlobular septal thickening. Minimal dependent changes likely at electasis. Musculoskeletal: Degenerative changes of the spine. IMPRESSION: 1. No evidence of pulmonary embolus. 2. Mild volume overload may be present. No jonathan pulmonary edema. No focal infiltrate to suggest pne umonia. Electronically signed by: David Kwong M.D. 04/22/2019 10:45 AM
[2019-04-22] MEDS ORDERED: ACETAMINOPHEN 500 MG TAB PO PRN (15:52)
--- NOTE | 2019-04-22 15:54 | Hospitalist Progress Note ---
Date of Service April 22, 2019 Assessment & Plan (1) Chest pain: Patient with severe left sided chest pain, stabbing in nature. Non- exertional, non-pleuritic. It is very reproducible on exam with palpation. 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 No drainage/crepitus/bullae or lymphangitic streaking. 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 Patient typically takes 20 - 30 units of glargine in the AM and 50-65 units of glargine in the evening. -Lantus 20u qAM and 30u qHS for now -ISS with CF of 15 and CR of 5. -Adjust insulin as needed, goal blood sugar 100 - 140 -Carb Consistent diet as tolerated (5) GERD (gastroesophageal reflux disease): Chronic, with trace sliding hiatal hernia noted on chest CT -Continue Ranitidine, Protonix -Maalox as needed (6) Hyperlipidemia: Chronic -Continue Pravastatin (7) Hypertension: Blood pressure controlled -Continue home medications, Imdur, Propranolol -Continue to monitor (8) Migraines: Presently well controlled. No BAILEY but does have a history of complex migraines -Continue Topamax for prophylaxis -Continue to monitor (9) Stage III chronic kidney disease: BUN and Cr are near baseline -Avoid nephrotoxic agents -Renal dosing where appropriate -BMP in AM (10) Abdominal pain, left upper quadrant: As above (11) Nephrolithiasis: Noted incidentally on the left but nonobstructing (12) Asymptomatic cholelithiasis: Noted on CT scan but not causing symptoms -Consider elective cholecystectomy as an outpatient (13) DVT prophylaxis: Ppx - Heparin for DVT ppx Code - DNR per discussion with patient Dispo -continued stay for continued chest pain management and treatment and observation for cellulitis of the leg Subjective Patient reports continued constant but waxing and waning stabbing pains in the left chest wall that radiated up to the left neck and all the way down into the left upper quadrant. No position makes it better or worse, he has not had any associated shortness of breath or cough. No change in bowel habits. He reports occasional bright red blood per rectum but had a colonoscopy earlier this year that showed hemorrhoids. He reports a 15 pound weight loss in the last 2 weeks despite eating his usual amount. He has had issues with an eczematous dermatitis as per dermatology records with multiple lesions all over his body that he scratches at. He has been treated with antibiotics topically for this. Review of the record also shows a long history of recurrent left-sided chest pain along at times with weakness on the left side thought to be secondary to complex migraines. Telemetry with dermal sinus rhythm with rates in the 60s to 80s Remains afebrile Review of Systems Review of Systems: All systems reviewed & are unremarkable except as noted in HPI & below Physical Exam Constitutional: WD/WN, vitals as above Eyes: + anicteric sclerae and EOM intact bilaterally ENMT: external ear and nose normal, oropharynx normal Neck: trachea midline, no thyromegaly Respiratory: normal respiratory effort, lungs clear to auscultation Cardiovascular: RRR, no murmur, no edema Chest (Breasts): normal inspection/palpation of breasts Chest: normal inspection of chest Breast: + abnormal palpation of breast (Exquisite tenderness to palpation over the left-sided chest wall, no masses or skin findings) Gastrointestinal (Abdomen): Inspection/Auscultation: abdomen normal to inspection and normal bowel sounds; abdomen not distended Percussion/Palpation: + abdomen tender (Positive tenderness to palpation with minimal palpation in the left upper quadrant, no masses) and abdomen soft; no guarding, abdomen not rigid and no hepatosplenomegaly Musculoskeletal: Extremities: extremities normal to inspection; no cyanosis and no clubbing Skin: + lesion (Multiple small some open less than 1 cm superficial wounds wit h no drainage or surrounding erythema) and + wound (Bilateral lower extremities with large scabs on anterior tibia with surrounding erythema and pitting edema especially on the right leg which apparently is improved from previous) Neurologic: moves all extremities and awake; no focal motor deficits Psychiatric: A+Ox3, euthymic affect Genitourinary: no testicular masses, no penis abnormality Results & Data Vital Signs (Past 12 Hours) Vital Signs Temp Pulse Pulse Resp BP Pulse Ox 04/22/19 15:34 59 L 04/22/19 14:59 36.6 C 68 20 106/67 97 04/22/19 11:08 36.6 C 63 18 104/62 96 04/22/19 08:00 67 04/22/19 06:54 36.3 C L 65 20 133/80 97 Laboratory Results 04/22/19 04/22/19 04/22/19 Range/Units 20:12 16:10 11:17 WBC (4.8-10.8) K/uL RBC (4.7-6.1) M/uL Hgb (14.0-18.0) g/dL Hct (42-52) % MCV (80-100) fL MCH (25-34) pg MCHC (32-36) g/dL RDW Std Deviation (36.4-46.3) fL RDW Coeff of Gissel (11.5-14.5) % Plt Count (130-400) K/uL MPV (7.4-10.4) fL Immature Gran % (Auto) % Neut % (Auto) % Lymph % (Auto) % [place] % (Auto) % Eos % (Auto) % Baso % (Auto) % Immature Gran # (Auto) (0.00-0.02) K/uL Neut # (Auto) (1.4-6.5) K/uL Lymph # (Auto) (1.2-3.4) K/uL [place] # (Auto) (0.11-0.59) K/uL Eos # (Auto) (0-0.5) K/uL Baso # (Auto) (0-0.2) K/uL Sodium (136-145) mmol/L Potassium (3.5-5.1) mmol/L Chloride (98-107) mmol/L Carbon Dioxide (21-32) mmol/L Anion Gap (3-11) BUN (7-18) mg/dl Creatinine (0.6-1.4) mg/dl Est Cr Clr Drug Dosing ml/min Est GFR ( Amer) Est GFR (Non-Af Amer) BUN/Creatinine Ratio (10-20) Glucose (70-99) mg/dl POC Glucose 140 H 95 142 H (70-99) Calcium (8.5-10.1) mg/dl Troponin I (0-0.045) ng/ml 04/22/19 04/22/19 04/22/19 Range/Units 07:20 06:26 06:26 WBC 4.91 (4.8-10.8) K/uL RBC 4.58 L (4.7-6.1) M/uL Hgb 14.9 (14.0-18.0) g/dL Hct 44.3 (42-52) % MCV 96.7 (80-100) fL MCH 32.5 (25-34) pg MCHC 33.6 (32-36) g/dL RDW Std Deviation 46.7 H (36.4-46.3) fL RDW Coeff of Gissel 13.1 (11.5-14.5) % Plt Count 178 (130-400) K/uL MPV 10.7 H (7.4-10.4) fL Immature Gran % (Auto) 0.6 % Neut % (Auto) 69.9 % Lymph % (Auto) 18.5 % [place] % (Auto) 8.4 % Eos % (Auto) 2.4 % Baso % (Auto) 0.2 % Immature Gran # (Auto) 0.03 H (0.00-0.02) K/uL Neut # (Auto) 3.43 (1.4-6.5) K/uL Lymph # (Auto) 0.91 L (1.2-3.4) K/uL [place] # (Auto) 0.41 (0.11-0.59) K/uL Eos # (Auto) 0.12 (0-0.5) K/uL Baso # (Auto) 0.01 (0-0.2) K/uL Sodium 137 (136-145) mmol/L Potassium 3.8 (3.5-5.1) mmol/L Chloride 108 H (98-107) mmol/L Carbon Dioxide 23 (21-32) mmol/L Anion Gap 6.0 (3-11) BUN 18 (7-18) mg/dl Creatinine 1.38 (0.6-1.4) mg/dl Est Cr Clr Drug Dosing 55.0 ml/min Est GFR ( Amer) 58.4 Est GFR (Non-Af Amer) 50.4 BUN/Creatinine Ratio 12.8 (10-20) Glucose 136 H (70-99) mg/dl POC Glucose 122 H (70-99) Calcium 8.7 (8.5-10.1) mg/dl Troponin I < 0.015 (0-0.045) ng/ml Diagnostic Findings IMPRESSION: Sliding hiatal hernia 1. No evidence of pulmonary embolus. 2. Mild volume overload may be present. No jonathan pulmonary edema. No focal infiltrate to suggest pneumonia. CT abdomen/pelvis: IMPRESSION: 1. There are no acute infectious or inflammatory findings in the abdomen or pelvis. 2. Left-sided nephrolithiasis. 3. Suspect cholelithiasis. PG Care Time/CCT Total # of Minutes Spent Total Time Spent with Patient: Total time spent is greater than 50% in coordination of care (as documented) at patient's floor/unit and/or counseling patient: (1) Diabetes mellitus, type 2 Diabetes mellitus complication detail: with polyneuropathy Diabetes mellitus complication status: with neurologic complications Diabetes mellitus oil heaterman insulin use: with senior living use Qualified Code(s): E11.42 - Type 2 diabetes mellitus with diabetic polyneuropathy; Z79.4 - USP (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 (2) Hyperlipidemia Hyperlipidemia type: unspecified Qualified Code(s): E78.5 - Hyperlipidemia, unspecified (3) GERD (gastroesophageal reflux disease) Esophagitis presence: esophagitis presence not specified Qualified Code(s): K21.9 - Gastro-esophageal reflux disease without esophagitis (4) Chest pain Chest pain type: other chest pain Qualified Code(s): R07.89 - Other chest pain; R07.8 - Other chest pain (5) Hypertension Hypertension type: essential hypertension Qualified Code(s): I10 - Essential (primary) hypertension
[2019-04-22] MEDS: LIDOCAINE 5% 1 PATCH TD SCH (17:03)
[2019-04-22] MEDS ORDERED: IOVERSOL 100ml IV PRN (18:55)
--- NOTE | 2019-04-22 20:12 | CT Scan Report ---
CT SCAN OF THE ABDOMEN AND PELVIS WITH IV CONTRAST CLINICAL HISTORY: Left upper quadrant abdominal pain. Weight loss. COMPARISON STUDY: Abdominal CT dated 10/19/2018. TECHNIQUE: Following the IV administration of 94 cc of Optiray 320, CT scan of the abdomen and pelvi s is performed from the lung bases to the proximal femora. Images are reviewed in the axial, sagittal , and coronal planes. IV contrast was administered without complication. A dose lowering technique wa s utilized adhering to the principles of ALARA. CT DOSE: 1248.49 mGy.cm FINDINGS: Lung bases: The heart is top normal in size and without pericardial effusion. The coronary arteries a re densely calcified. A 9 mm peripherally calcified nodule at the right lung base is unchanged. There is dependent atelectasis. No airspace consolidation or pleural effusion is identified. There is a sm all hiatal hernia. Liver: The contrast-enhanced liver is normal in size, contour, and attenuation. There is no intrahepa tic biliary ductal dilatation. The hepatic veins and portal veins are patent. There are scattered scott cified hepatic granulomas. Gallbladder: Small gallstones are suspected. There is no CT evidence of cholecystitis. Spleen: Normal in size and attenuation. There are calcified splenic granulomas. Pancreas: Moderately atrophic and grossly unremarkable. Adrenal glands: Unremarkable. Kidneys: The contrast enhanced kidneys demonstrate cortical atrophy and are without hydronephrosis. T he kidneys enhance symmetrically. Excreted contrast is present within the renal collecting system greg aterally. There is a 3 mm nonobstructing left renal calculus. Abdominal vasculature: The abdominal aorta is normal in course and caliber noting moderate atheroscle rotic calcification. Bowel: There is no bowel obstruction. Enteric contrast reaches the distal small bowel. There are scat tered colonic diverticula without CT evidence of acute diverticulitis. The appendix is well-visualiz ed and normal. Peritoneum: There is no intraperitoneal free air or abdominal ascites. There is a fat-containing umbi lical hernia. Lymphadenopathy: None. Pelvic viscera: The prostate gland is mildly enlarged and heterogeneous. There is median lobe hypertr ophy. The bladder wall is thickened and trabeculated indicating chronic outlet obstruction. The bladd er is filled with excreted IV contrast. Skeletal structures: The skeletal structures are osteopenic. There is mild lumbosacral spondylosis. N o lytic or blastic lesions are seen. IMPRESSION: 1. There are no acute infectious or inflammatory findings in the abdomen or pelvis. 2. Left-sided nephrolithiasis. 3. Suspect cholelithiasis. 4. Additional findings as above. Electronically signed by: Jonny Zambrano M.D. 04/22/2019 8:10 PM
[2019-04-22] MEDS: PRAVASTATIN SOD 40 MG TAB PO SCH (20:25)
[2019-04-22] MEDS: INSULIN GLARGINE SOLOSTAR 100 UNITS/ML 3 ML PEN SQ SCH (20:29)
[2019-04-23] MEDS: HEPARIN SOD 5,000 UNIT/0.5 ML VIAL SQ SCH ×2 (05:47→12:47)
[2019-04-23] MEDS: PANTOprazole 40 MG TAB PO SCH (08:17)
[2019-04-23] MEDS: ISOSORBIDE MONO EXTENDED REL 60 MG TABCR PO SCH (08:17)
[2019-04-23] MEDS: PROPRANOLOL HCL 10 MG TAB PO SCH (08:17)
[2019-04-23] MEDS: TOPIRAMATE 100 MG TAB PO SCH (08:17)
[2019-04-23] MEDS: ASPIRIN 81 MG CHEW PO SCH (08:18)
[2019-04-23] MEDS: DICLOFENAC SOD 1% GEL 100 GM TUBE EXT SCH ×2 (08:19→12:46)
[2019-04-23] MEDS: LIDOCAINE 5% 1 PATCH TD SCH (08:19)
[2019-04-23] MEDS: MUPIROCIN 2% OINT 22 GM TUBE TOP SCH (08:22)
[2019-04-23] MEDS: INSULIN GLARGINE SOLOSTAR 100 UNITS/ML 3 ML PEN SC SCH (08:24)
[2019-04-23] MEDS: INSULIN ASPART 100 UNITS/ML 3 ML PEN SC SCH ×2 (08:25→12:48)
[2019-04-23] MEDS ORDERED: CITALOPRAM 20 MG TAB PO SCH (09:00)
--- NOTE | 2019-04-23 15:21 | Discharge Summary ---
Date of Service April 23, 2019 Admission HPI Per Admitting Provider Tian Blanchard is a 74yo C male with multiple medical problems, HTN/HLP/CAD with DC in 2005 s/p stent, CKD presenting with cellulitis. He woke this AM with redness, swelling and inflammation of his bilateral LE, R > L. He called Dr. Moran and was instructed to come into the ER. He was administered Dalvance and was being prepared for discharged home when he acutely developed severe left sided chest pain, stabbing in nature, 10/10 in severity with radiation to his jaw and shoulders, associated diaphoresis and SOB. He was administered Dilaudid then became unresponsive therefore was administered Narcan with improvement. Then he developed numbness and tingling in his legs bilaterally. A CT head and CTA Head/Neck was obtained which was negative. Still complaining of left sided chest discomfort, non-pleuritic, +positional and worse with movement. Leg tingling has resolved. ER course: Sucralfate, Zofran, Nitro, Narcan, Maalox, ASA, Dilaudid, Pepcid, Dalvance Discharge Exam Constitutional WD/WN, vitals as above Eyes + anicteric sclerae and EOM intact bilaterally ENMT external ear and nose normal, oropharynx normal Neck trachea midline, no thyromegaly Respiratory normal respiratory effort, lungs clear to auscultation Cardiovascular RRR, no murmur, no edema Chest (Breasts) normal inspection/palpation of breasts Chest: normal inspection of chest Breast: + abnormal palpation of breast (Exquisite tenderness to palpation over the left-sided chest wall, no masses or skin findings) Gastrointestinal (Abdomen) Inspection/Auscultation: abdomen normal to inspection and normal bowel sounds; abdomen not distended Percussion/Palpation: + abdomen tender (Positive tenderness to palpation with minimal palpation in the left upper quadrant, no masses) and abdomen soft; no guarding, abdomen not rigid and no hepatosplenomegaly Musculoskeletal Extremities: extremities normal to inspection; no cyanosis and no clubbing Skin + lesion (Multiple small some open less than 1 cm superficial wounds with no drainage or surrounding erythema) and + wound (Bilateral lower extremities with large scabs on anterior tibia with surrounding erythema and pitting edema especially on the right leg which apparently is improved from previous) Neurologic moves all extremities and awake; no focal motor deficits Psychiatric A+Ox3, euthymic affect Genitourinary no testicular masses, no penis abnormality Discharge Data Allergies Allergy/AdvReac Type Severity Reaction Status Date / Time morphine AdvReac Severe "STOPS MY Verified 04/21/19 10:08 HEART" hydromorphone [From Dilaudid] AdvReac Intermediate unresponsiv Verified 04/21/19 21:53 eness trazodone AdvReac Intermediate GI UPSET Verified 04/21/19 10:08 diazepam AdvReac Mild HALLUCINATE Verified 04/21/19 10:08 S propoxyphene AdvReac Mild DRUG Verified 04/21/19 10:08 INTOLERANCE Consultations 04/21/19 14:30 ED Decision to Admit Stat Ordered Studies 04/21/19 09:32 US venous doppler LE BI Stat 04/21/19 15:07 CT angio head w con Stat CT angio neck with con Stat CT head/brain wo con Stat 04/22/19 09:07 CT angio chest PE protocol Urgent 04/22/19 15:53 CT abd pelvis oral and IV con Routine Hospital Course (1) Chest pain: Patient with severe left sided chest pain, stabbing in nature. Non- exertional, non-pleuritic. It is very reproducible on exam with palpation. 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 No drainage/crepitus/bullae or lymphangitic streaking. 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 Patient typically takes 20 - 30 units of glargine in the AM and 50-65 units of glargine in the evening. -Lantus 20u qAM and 30u qHS for now -ISS with CF of 15 and CR of 5. -Adjust insulin as needed, goal blood sugar 100 - 140 -Carb Consistent diet as tolerated (5) GERD (gastroesophageal reflux disease): Chronic, with trace sliding hiatal hernia noted on chest CT -Continue Ranitidine, Protonix -Maalox as needed (6) Hyperlipidemia: Chronic -Continue Pravastatin (7) Hypertension: Blood pressure controlled -Continue home medications, Imdur, Propranolol -Continue to monitor (8) Migraines: Presently well controlled. No BAILEY but does have a history of complex migraines -Continue Topamax for prophylaxis -Continue to monitor (9) Stage III chronic kidney disease: BUN and Cr are near baseline -Avoid nephrotoxic agents -Renal dosing where appropriate -BMP in AM (10) Abdominal pain, left upper quadrant: As above (11) Nephrolithiasis: Noted incidentally on the left but nonobstructing (12) Asymptomatic cholelithiasis: Noted on CT scan but not causing symptoms -Consider elective cholecystectomy as an outpatient (13) DVT prophylaxis: Ppx - Heparin for DVT ppx Code - DNR per discussion with patient Dispo -continued stay for continued chest pain management and treatment and observation for cellulitis of the leg Discharge Plan Discharge Items Patient Disposition: Home - Self-Care Reason For Visit: CHEST PAIN Discharge Diagnosis: Musculoskeletal chest pain, leg cellulitis Condition on Discharge: Good Goals: You have been hospitalized for an acute medical problem. During your stay at [facility], we have made an effort to correct the problem that brought you to the hospital while keeping you as comfortable as possible. Medications were used to bring your condition under control and your discharge instructions will include directions for any medications you should take after leaving the hospital. Please make sure you see your Primary Care Provider as part of your follow up plan. Activity: As commented below Lifting: Gradually increase as tolerated Bathing: No limitations Exercise/Sports: Gradually increase as tolerated Non-emergency contact: Primary Care Provider Call non-emergency contact if: you have any medication questions, your symptoms worsen, your pain is not controlled, your pain is worsening, your pain is unusual for you, your pain is concerning for you, you have a fever, your temperature is above 101, your wound has increased redness, your wound has increased drainage and your wound pain has increased Follow-up/Referrals: Fox Moran MD [Primary Care Provider] - 04/28/19 11:00 am (Please, follow up at Dr. Moran's office with his associate, Heather CARTWRIGHT, on SundayApril 28 at 11:00 am. *If you need to change this appointment, call the office at [phone].) Diet: Carb Consistent or DM2 and Heart Healthy Addtl Attending Provider Instructions: Please finish out the course of antibiotics as prescribed--> start taking the keflex on 04/24/19. You can use the lidocaine patch on the left chest for pain as needed. You can also take tylenol as needed for pain. Your weight loss may be coming from being on Topamax and some of it is fluid/water loss now that your legs aren't swollen as much. We will get you an appointment with Dr. Bartholomew to discuss whether or not you need an upper endoscopy (EGD) to look at your stomach. You already received some of your insulin this morning, so please ONLY TAKE Lantus 40 UNITS tonight, then START YOUR USUAL DOSE of 65 UNITS starting tomorrow evening. Please follow up with your PCP on Sunday as scheduled for you. Pending Studies at Discharge: Yes (Final blood culture result-no growth to date) Stand-Alone Forms: My [facility] Medications and DC Order Prescriptions: New acetaminophen [Tylenol Extra Strength] 500 mg Tablet 1,000 mg PO Q8H PRN (Reason: pain) Qty: 30 RF: 0 lidocaine 5 % Adhesive Patch,Medicated 1 patch transdermal QAM Qty: 15 RF: 0 cephalexin [Keflex] 500 mg capsule 500 mg PO TID 7 Days Qty: 21 RF: 0 Continued isosorbide mononitrate 120 mg tablet extended release 24 hr 120 mg PO QAM Qty: 90 RF: 3 propranolol 10 mg tablet 10 mg PO BID Qty: 180 RF: 2 clindamycin phosphate 1 % lotion 1 appln TOP .COMPLEX Qty: 60 RF: 1 mupirocin 2 % ointment 1 appln TOP BID Qty: 22 RF: 0 pen needle, diabetic [BD Ultra-Fine Short Pen Needle] 31 gauge x 5/16" needle .ROUTE .MEDSUPPLY Qty: 30 RF: 0 insulin lispro [Humalog KwikPen Insulin] 100 unit/mL insulin pen 5 - 35 units SUBCUT AC RF: 0 Lantus Solostar U-100 Insulin 100 unit/mL (3 mL) insulin pen 65 units SQ HS Qty: 60 RF: 3 OneTouch Ultra Blue Test Strip strip .ROUTE .MEDSUPPLY Qty: 400 RF: 3 nitroglycerin 0.4 mg tablet, sublingual 0.4 mg SL Q5M PRN (Reason: chest pain) Qty: 1 RF: 0 ranitidine HCl 300 mg Tablet 300 mg PO HS RF: 0 topiramate [Topamax] 100 mg Tablet 100 mg PO BID RF: 0 pantoprazole 40 mg Tablet,Delayed Release (Dr/Ec) 40 mg PO QAM RF: 0 aspirin 81 mg tablet,chewable 81 mg PO MOWEFR RF: 0 citalopram 20 mg tablet 20 mg PO MOWEFR RF: 0 diclofenac sodium [Voltaren] 1 % gel 2 gm TOP QID Qty: 100 RF: 0 citalopram 40 mg tablet 40 mg PO SUTUTHSA RF: 0 pravastatin 40 mg tablet 40 mg PO HS RF: 0 Discharge Orders: Discharge Order (Routine); Ordered 04/23/19 Ordered By: Lillian Schuster Admission Data Admit Date/Time: 04/22/19 15:45 Attending Provider: Lillian Schuster Admit Provider: Amisha Ramos Primary Care Provider: oFx Moran Other Providers: Amisha Ramos
== END 2019-04-23 16:25 | disposition home or self-care (01) | DRG 603 ==
LOC: 2W 08:21 → ED 08:21 → SUATTDRO 16:34 → 2W 18:53

== ENCOUNTER 2019-05-14 12:12 | Inpatient (IN) ==
[2019-05-14] MEDS ORDERED: ACETAMINOPHEN 1,000 MG/100 ML VIAL IV STA (12:36)
[2019-05-14] MEDS ORDERED: SODIUM CHLORIDE 0.9% 500 ML IV ONE (12:36)
[2019-05-14] MEDS ORDERED: PROCHLORPERAZINE 1 ML IV ONE (12:36)
[2019-05-14 13:28] LABS: Partial Thromboplastin Ratio 0.9; Partial Thromboplastin Time 23.9 Seconds (21.0-31.0); Prothrombin Time 10.4 Seconds (9.0-12.0)
[2019-05-14 13:33] LABS: Alanine Aminotransferase 28 U/L (12-78); Albumin Level 3.1 gm/dl (3.4-5.0); Aspartate Aminotransferase 22 U/L (15-37); BUN Creatinine Ratio 16.3 (10-20); Bilirubin Direct 0.1 mg/dl (0-0.2); Blood Urea Nitrogen 25 mg/dl (7-18); Calcium 8.9 mg/dl (8.5-10.1); Carbon Dioxide 21 mmol/L (21-32); Chloride 111 mmol/L (98-107); Creatinine Clr Calc Pharmacy 50.9 ml/min; Est GFR (African American) 51.5; Est GFR (Non-African American) 44.5; Glucose 63 mg/dl (70-99); Magnesium 2.1 mg/dl (1.8-2.4); Potassium 3.7 mmol/L (3.5-5.1); Sodium 142 mmol/L (136-145)
[2019-05-14 13:38] LABS: Albumin Globulin Ratio 0.9 (0.9-2); Alkaline Phosphatase 89 U/L (45-117); Bilirubin,Total 0.3 mg/dl (0.2-1); Globulin 3.5 gm/dl (2.5-4.0); NT Pro B Type Natriuretic Pept 103 pg/ml (0-900); Phosphorus 3.3 mg/dl (2.5-4.9); Total Protein 6.6 gm/dl (6.4-8.2); Troponin I < 0.015 ng/ml (0-0.045)
--- NOTE | 2019-05-14 13:38 | XRay Report ---
XR chest 1V portable CLINICAL HISTORY: 74 years-old Male presenting with Sepsis. TECHNIQUE: Portable upright AP view of the chest was obtained. COMPARISON: 04/21/[address] chest from 05/10/2019. FINDINGS: Atherosclerosis of the aortic arch. Cardiac silhouette top normal in size. Mildly low lung volumes wi th hypoventilatory changes. No focal opacity. No large effusion or pneumothorax. Degenerative changes of the thoracic spine. Upper abdomen normal. IMPRESSION: 1. Mildly low lung volumes with hypoventilatory changes. No convincing evidence of acute cardiac pul monary disease. Electronically signed by: David Kwong M.D. 05/14/2019 1:36 PM
[2019-05-14 13:40] LABS: Basophils # (auto) 0.02 K/uL (0-0.2); Basophils % (auto) 0.3 %; Eosinophils # (auto) 0.14 K/uL (0-0.5); Eosinophils % (auto) 2.2 %; Hemoglobin 13.9 g/dL (14.0-18.0); Immature Granulocytes # (auto) 0.04 K/uL (0.00-0.02); Immature Granulocytes % (auto) 0.6 %; Lymphocytes # (auto) 1.29 K/uL (1.2-3.4); Mean Corpuscular Hemoglobin 32.9 pg (25-34); Mean Corpuscular Hgb Conc 33.9 g/dL (32-36); Mean Corpuscular Volume 97.2 fL (80-100); Mean Platelet Volume 10.4 fL (7.4-10.4); Monocytes # (auto) 0.58 K/uL (0.11-0.59); Neutrophils # (auto) 4.37 K/uL (1.4-6.5); Neutrophils % (auto) 67.9 %; Platelet Count 203 K/uL (130-400); RDW Coefficient of Variation 13.4 % (11.5-14.5); RDW Standard Deviation 47.4 fL (36.4-46.3); Red Blood Count 4.22 M/uL (4.7-6.1); White Blood Count 6.44 K/uL (4.8-10.8)
--- NOTE | 2019-05-14 13:44 | CT Scan Report ---
CT head/brain wo con CLINICAL HISTORY: 74 years-old Male presenting with Headache double vision, dizziness. TECHNIQUE: Multidetector CT imaging of the head was performed without the use of intravenous contrast . IV contrast: None. One or more dose lowering techniques were used consistent with the principles of ALARA (as low as reasonably achievable), including automatic exposure control, mA or kV adjustment t o individual patient size, and/or use of iterative reconstruction. COMPARISON: 05/10/2019. CT DOSE (mGy.cm): The estimated cumulative dose is 614.27 mGy.cm. FINDINGS: Standard Machine Stitcher topogram: Unremarkable. Ventricles and sulci normal in size. No hemorrhage. Brain parenchyma normal in appearance with preser carlos wilkinson-white differentiation. No acute territorial infarct. No mass effect or midline shift. No ext ra-axial fluid collection. Paranasal sinuses and mastoid air cells clear. Calvarium intact. Intracran ial atherosclerosis noted. IMPRESSION: 1. No acute intracranial abnormality. Electronically signed by: David Kwong M.D. 05/14/2019 1:43 PM
[2019-05-14 14:10] LABS: Lyme Ab IgG w/WB Rflx Negative (Negative)
--- NOTE | 2019-05-14 14:10 | Ultrasound Report ---
US venous doppler LE bilateral CLINICAL HISTORY: BLE swelling COMPARISON STUDY: 04/21/2019 FINDINGS: Real-time and color flow Doppler imaging were performed. Flow was seen within the femoral, popliteal and calf veins with no intraluminal thrombus demonstrated. The saphenous vein is patent. IMPRESSION: No evidence of lower extremity DVT. Electronically signed by: Carlos Salazar M.D. 05/14/2019 2:09 PM
[2019-05-14 14:13] LABS: Lyme Ab IgM w/WB Rflx Negative (Negative)
[2019-05-14 15:06] LABS: Appearance Urine Clear (Clear); Bilirubin Urine Negative (Negative); Blood Urine Negative (Negative); Color Urine Yellow; Glucose Urine UA Negative (Negative); Ketones Urine Negative (Negative); Leukocyte Esterase Urine Negative (Negative); Nitrite Urine Negative (Negative); Protein Urine Negative (Negative); Specific Gravity Urine 1.021 (1.000-1.030); Urobilinogen Urine Negative (Negative)
--- NOTE | 2019-05-14 18:49 | History & Physical Report ---
Date of Service May 14, 2019 Assessment & Plan (1) Generalized weakness: - This may be multifactorial between orthopedic issues/glucose issues/migraine - Seems to have RLE weakness which he states is new - is known to have complex migraines which this likely favors - however given the new prevalence of these will R/O CVA as he does report a CVA in the past - Full neurological assessment difficult as LUE in cast and his orthopedic issues - Stroke R/O - Head CT negative - obtain MRI - Stroke scale; PT/OT - Again likely this is recurrence of his complex migraines - If MRI would suggest new CVA then would consult neurology - but likely could benefit from outpatient F/U if no CVA is found to address complex migraines (2) Headache, migraine: - It appears this is likely the underlying culprit; in addition it seems this may be the cause of the CP - Was well controlled previously but migraines becoming more prevalent - possible triggers are his labile sugars as he states he has been in the 300s then down in the 60s vs other causes - Continue Topamax 100 mg BID; he was previously on a triptan which he says this worked and it might be worth prescribing this until he F/U with neurology - Tylenol PRN (3) Chest pain: - Reports sternal/L sided CP that is worse with inspiration and stabbing- like but also feels pressure "bear-hugging" sensation - states this is how is normal angina feels but states this is happening more frequently and avoids his NTG due to headaches -- Per a previous note it appears that this CP sometimes correlates with his migraines - which have been more prevalent as well - Monitor on telemetry and trend serial enzymes - Will obtain echocardiogram to assess EF/wall motion abnormalities - may be playing a role in his lower extremity edema vs this simply being venous insufficiency (4) Cellulitis: - Continue Keflex - it appears he had coag-neg staph on previous cultures and F/U with Dermatology - No leukocytosis/fever - likely this is more venous insufficiency/swelling related - Can use Rocephin daily while in the hospital to see if any changes are obvious but may benefit from maybe a couple days of Lasix vs Compression stockings (5) Coronary artery disease with hx of myocardial infarct w/o hx of CABG: - Follows with Dr. Mejia - Continue ASA 81 mg MWF, Imdur 120 mg daily, Pravastatin 40 mg daily, Propranolol 10 mg BID (more for tremor and some BP control) (6) Hypertension: - Treatment as above (7) Diabetes mellitus, type 2: - A1c in AM - was 8.4 in January - Reports glucose of 300+ at home but was 63 in the ED - Will use Lantus 20 units daily and SSI until BSGs can be trended (8) Stage III chronic kidney disease: - At baseline - Avoid nephrotoxins/renal dosing as appropriate History of Present Illness Chief Complaint: Chest Pain; Headache/Blurry Vision Primary Care Provider: Fox Moran MD Mr. Blanchard is a 74 y/o male with PMHx of CAD/VT, T2DM, HLD, GERD, HTN, CKD III, and Recurrent Skin Infection/Cellulitis who presents to the ED from his PCP for chest pain, headache/blurred vision, and worsening redness of legs. Patient reports he has a H/O complex migraines that have been controlled for many years and followed with Dr. Bañuelos. He has noticed these are becoming more prevalent. He does report a headache that started today with associated blurred vision. The headache is improving but the blurred vision remains but is not worsening. He has his L arm in a cast and has chronic lower extremity orthopedic issues so full neurological assessment is difficult. Does appear to have some weakness of the RLE in comparison to the LLE. Patient reports this is not normal for him and agrees that it feels weaker. He also has had difficulty getting some of his words out but denies abnormal speech. However, during my assessment a few words would come out wrong and his daughter would correct him. He also reports having worsening CP that is similar to his angina but reports this is becoming more prevalent. He states his common angina is a sharp pain in the mid-chest and normally deep inspiration exacerbates this. He states he does not take his NTG typically as it causes such severe headaches for him. Pain is rather atypical and happens randomly regardless of activity. Per a previous note, it appears that it may be related to his complex migraines. In regards to his legs, he has been on Keflex for a suspected cellulitis. He reports his legs have been improving on Keflex but over the past couple days it has been worsening. It appears his legs are more edematous then baseline but does have scabs and mild redness. I discussed with the patient this supports more of a venous insufficiency/fluid issue rather than infection. He does state he does have swelling when he is on his feet and it improves with elevation. 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 He states he was on diuretics in the past but does not take them currently. He is afebrile and without leukocytosis. He also reports multiple falls recently. This seems likely due to his orthopedic issues and reports this is improving with injections and outpatient PT. Reports his knees buckling intermittently and follows with orthopedics. Did sustain a fall approx. 3 weeks ago resulting in L wrist fx. Allergies Allergy/AdvReac Type Severity Reaction Status Date / Time morphine AdvReac Severe "STOPS MY Verified 05/14/19 13:24 HEART" hydromorphone [From Dilaudid] AdvReac Intermediate unresponsiv Verified 05/14/19 13:24 eness trazodone AdvReac Intermediate GI UPSET Verified 05/14/19 13:24 diazepam AdvReac Mild HALLUCINATE Verified 05/14/19 13:24 S propoxyphene AdvReac Mild DRUG Verified 05/14/19 13:24 INTOLERANCE Home Medications Home Medications Medication Instructions Recorded Confirmed Type topiramate [Topamax] 100 mg PO BID 05/17/18 05/14/19 History diclofenac sodium [Voltaren] 2 gm TOP QID #100 gm 10/20/18 05/14/19 Rx pen needle, diabetic 31 gauge x #30 ea 12/03/18 05/14/19 Rx /" isosorbide mononitrate 120 mg 120 mg PO QAM #90 tab 01/08/19 05/14/19 Rx tablet,extended release 24 hr aspirin 81 mg chewable tablet 81 mg PO MOWEFR 02/05/19 05/14/19 History citalopram 20 mg tablet 20 mg PO MOWEFR tab 02/05/19 05/14/19 History insulin glargine 100 unit/mL (3 65 units SQ HS #60 ml 02/05/19 05/14/19 Rx mL) subcutaneous pen insulin lispro 100) 100 unit/mL 5 - 35 units SUBCUT AC ml 02/05/19 05/14/19 History subcutaneous pen nitroglycerin 0.4 mg sublingual 0.4 mg SL Q5M PRN #1 tab 02/05/19 05/14/19 History tablet clindamycin phosphate 1 % lotion 1 appln TOP .COMPLEX #60 ml 03/11/19 05/14/19 Rx propranolol 10 mg tablet 10 mg PO BID #180 tab 03/25/19 05/14/19 Rx citalopram 40 mg PO SUTUTHSA 04/21/19 05/14/19 History pravastatin 40 mg PO HS 04/21/19 05/14/19 History acetaminophen [Tylenol Extra 1,000 mg PO Q8H PRN #30 tab 04/23/19 05/14/19 Rx Strength] pantoprazole 40 mg tablet,delayed 40 mg PO QAM #90 tab 04/25/19 05/14/19 Rx release mupirocin 2 % topical ointment 1 appln TOP BID #22 gm 05/01/19 05/14/19 Rx cephalexin 500 mg capsule 500 mg PO TID #90 cap 05/07/19 05/14/19 Rx erythromycin 1 applic OPB HS 05/10/19 05/14/19 History ranitidine HCl 300 mg tablet 300 mg PO HS #90 tab 05/12/19 05/14/19 Rx Past Med/Surg History Medical History Atypical chest pain (Resolved) Benign colonic polyp (Chronic) CAD in [place] artery (Chronic) Cellulitis Chronic kidney disease (CKD) (Acute) Cognitive disorder (Chronic) Controlled type 2 diabetes mellitus with neurologic complication, with long-term current use of insulin (Resolved) Conversion disorder (Resolved) Diabetes mellitus, type 2 (Chronic) Diabetic peripheral neuropathy (Chronic) Dyslipidemia (Resolved) Esophageal reflux (Chronic) History of colon polyps (Chronic) History of tobacco use (Resolved) Hyperlipidemia (Chronic) Hypertension (Chronic) Kidney stone on right side (Resolved) Migraines, neuralgic (Chronic) Myocardial Infarction (Resolved) 2004--follows with Dr. Mejia Nephrolithiasis (Resolved) Neurological deficit present (Resolved) Neuropathy (Chronic) Osteoarthritis (Chronic) Raynauds phenomenon (Chronic) Stage III chronic kidney disease (Chronic) Tubular adenoma of colon (Resolved) Vitamin D deficiency (Chronic) Wound of left foot (Resolved) Surgical History History of arthroscopy of left knee (Resolved) History of cardiac cath (Resolved) x3-4, last 2014 History of carpal tunnel release of both wrists (Resolved) History of colonoscopy (Resolved) History of heart artery stent (Resolved) x1--1999 History of lithotripsy (Resolved) x2 History of lumbar discectomy (Resolved) x2 History of open reduction and internal fixation (ORIF) procedure (Resolved) left ankle--hardware in place History of right cataract extraction (Resolved) History of tonsillectomy and adenoidectomy (Resolved) Status post uvulopalatopharyngoplasty (Resolved) Family History Father Family history of diabetes mellitus Family hx of colon cancer Other No family history of adverse response to anesthesia Social History Preferred Language: Cuban Communication Ability: Effective Rn Registry Required: No Beliefs That Will Affect Care: None marital status: Current Living Situation: Spouse Feels Safe at Home: Yes Safety Concerns: Feels Safe At This Time Smoking Status: Former smoker Second Hand Exposure: No ; Hx Alcohol Use: No Hx Substance Use: No Review of Systems Constitutional: + fatigue; no fever and no chills Eyes: + diplopia Ear, Nose, Mouth, Throat: no nasal congestion, no sore throat and no hoarseness Respiratory: + pain on inspiration and + wheezing; no cough and no dyspnea Cardiovascular: + chest pain, + chest pain at rest and + edema; no palpitations and no lightheadedness Gastrointestinal: no abdominal pain, no nausea, no vomiting, no constipation and no diarrhea/loose stools Genitourinary: no dysuria Integumentary: + rash (chronic; intermittent) Neurologic: + falls, + localized weakness (RLE), + headache(s) and + abnormal speech (difficulty getting some words out) Physical Exam Constitutional: WD/WN, vitals as above Eyes: + anicteric sclerae; no conjunctival abnormality ENMT: Ears: no hearing impairment Neck: trachea midline Respiratory: normal respiratory effort, lungs clear to auscultation Cardiovascular: Rate/Rhythm: regular rate and regular rhythm Heart Sounds: no murmur Vessels: no JVD Extremities: + edema (b/l lower extremities - 1- 2+) Gastrointestinal (Abdomen): Inspection/Auscultation: normal bowel sounds Percussion/Palpation: abdomen soft; abdomen nontender Musculoskeletal: Head/Neck/Chest: normocephalic and head atraumatic Skin: scattered small petechial-like rash with some that are more scab-like; some smyth/venous changes of b/l lower extremities. mild pink coloration to legs with 2+ edema Neurologic: Speech / Cognition: normal speech (largely normal but occassion wrong words would come out during speech) Cranial Nerves: PERRL, tongue midline and normal hearing due to casting of RUE and orthopedics issues it is tough to do a full exam; does appear to have more weakness of RLE compared to LLE which patient reports is new and not typical of his orthopedic issues Psychiatric: A+Ox3, euthymic affect Results & Data Vital Signs (Past 12 Hours) Vital Signs Temp Pulse Resp BP Pulse Ox 05/14/19 18:00 56 L 14 140/80 99 05/14/19 17:30 64 19 98 05/14/19 17:00 67 27 H 132/76 99 05/14/19 16:38 60 18 133/75 98 05/14/19 16:37 61 19 05/14/19 16:00 63 14 120/82 05/14/19 15:31 67 17 05/14/19 15:30 69 20 132/83 05/14/19 15:01 73 19 05/14/19 15:00 67 17 133/74 05/14/19 14:31 68 15 98 05/14/19 14:30 68 15 131/72 98 05/14/19 14:12 74 20 115/70 97 05/14/19 13:09 96 05/14/19 13:00 67 26 H 97 05/14/19 12:30 69 17 05/14/19 12:29 37.7 C H 76 20 132/71 97 05/14/19 12:21 72 22 98 05/14/19 12:15 71 19 132/71 98 Supervising Physician Co-Signing Physician Notes Patient seen and examined with Marisa DICKSON. I agree with their exam findings, review of systems, assessment and plan. I personally reviewed the lab work and imaging as well. patient presenting with several complaints, specifically headache, weakness, chest pain. - Chest pain: will observe on telemetry, cycle troponin, check echocardiogram to rule out ACS - Headache: most likely complex migraine, on Propranolol for prophylaxis, topamax BID - Cellulitis: convert Keflex to Rocephin for time being for full details see the full H&P PG Care Time/CCT Total # of Minutes Spent Total Time Spent with Patient: Total time spent is greater than 50% in coordination of care (as documented) at patient's floor/unit and/or counseling patient: (1) Diabetes mellitus, type 2 Diabetes mellitus complication detail: with polyneuropathy Diabetes mellitus complication status: with neurologic complications Diabetes mellitus long term care social worker insulin use: with long term care social worker use Qualified Code(s): E11.42 - Type 2 diabetes mellitus with diabetic polyneuropathy; Z79.4 - long term acute care registered nurse (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 (2) Headache, migraine Intractability: not intractable Migraine type: unspecified Status migrainosus presence: without status migrainosus Qualified Code(s): G43.909 - Migraine, unspecified, not intractable, without status migrainosus (3) Chest pain Chest pain type: unspecified Qualified Code(s): R07.9 - Chest pain, un specified
[2019-05-14] MEDS ORDERED: DEXTROSE 50% 50 ML SYRINGE IV PRN (19:15)
[2019-05-14] MEDS ORDERED: GLUCOSE 10 TABS/TUBE PO PRN (19:15)
[2019-05-14] MEDS ORDERED: CARBOHYDRATES FOR HYPOGLYCEMIA PO PRN (19:15)
[2019-05-14] MEDS ORDERED: GLUCAGON FOR INJ 1 MG VIAL SQ PRN (19:15)
[2019-05-14] MEDS ORDERED: PHARMACIST DISCHARGE MED REC CONSULT PRN (19:15)
[2019-05-14] MEDS ORDERED: NON-FORMULARY MEDICATION (Clindamycin Phosphate 1 APPLN) TOP SCH (19:15)
[2019-05-14] MEDS ORDERED: POLYETHYLENE (MIRALAX) 17 GM PACK PO PRN (19:15)
[2019-05-14] MEDS ORDERED: GLUCOSE 40% GEL 15 GM TUBE PO PRN (19:15)
[2019-05-14] MEDS ORDERED: MAGNESIUM HYDROXIDE SUSP 30 ML UDC PO PRN (19:15)
[2019-05-14] MEDS ORDERED: ALUMINUM/MAGNESIUM SUSP 30 ML UDC PO PRN (19:15)
[2019-05-14] MEDS ORDERED: cefTRIAXone SODIUM 1,000 MG in DEXTROSE 5% 50 ML IV SCH (20:00)
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
[2019-05-14] MEDS: cefTRIAXone SODIUM 2,000 MG in DEXTROSE 5% 50 ML IV SCH (20:56)
[2019-05-14] MEDS: MUPIROCIN 2% OINT 22 GM TUBE EXT SCH (20:57)
[2019-05-14] MEDS: ERYTHROMYCIN OP OINT 5 MG/GM 3.5 GM TUBE OPB SCH (20:57)
[2019-05-14] MEDS: PROPRANOLOL HCL 10 MG TAB PO SCH (20:58)
[2019-05-14] MEDS: PRAVASTATIN SOD 40 MG TAB PO SCH (20:59)
[2019-05-14] MEDS: TOPIRAMATE 100 MG TAB PO SCH (20:59)
[2019-05-14] MEDS: DICLOFENAC SOD 1% GEL 100 GM TUBE EXT SCH (21:00)
[2019-05-14] MEDS ORDERED: cephALEXin 500 MG CAP PO SCH (21:00)
[2019-05-14] MEDS: INSULIN ASPART 100 UNITS/ML 3 ML PEN SC SCH (22:39)
[2019-05-15] MEDS: ACETAMINOPHEN 500 MG TAB PO PRN (06:05)
[2019-05-15 07:04] LABS: Basophils # (auto) 0.03 K/uL (0-0.2); Basophils % (auto) 0.5 %; Eosinophils # (auto) 0.09 K/uL (0-0.5); Eosinophils % (auto) 1.6 %; Hematocrit (blood only) 43.2 % (42-52); Hemoglobin 14.6 g/dL (14.0-18.0); Immature Granulocytes # (auto) 0.02 K/uL (0.00-0.02); Immature Granulocytes % (auto) 0.4 %; Lymphocytes # (auto) 0.99 K/uL (1.2-3.4); Lymphocytes % (auto) 18.1 %; Mean Corpuscular Hemoglobin 32.7 pg (25-34); Mean Corpuscular Hgb Conc 33.8 g/dL (32-36); Mean Corpuscular Volume 96.9 fL (80-100); Mean Platelet Volume 10.3 fL (7.4-10.4); Monocytes # (auto) 0.48 K/uL (0.11-0.59); Monocytes % (auto) 8.8 %; Neutrophils # (auto) 3.86 K/uL (1.4-6.5); Neutrophils % (auto) 70.6 %; Platelet Count 165 K/uL (130-400); RDW Coefficient of Variation 13.3 % (11.5-14.5); RDW Standard Deviation 46.8 fL (36.4-46.3); Red Blood Count 4.46 M/uL (4.7-6.1); White Blood Count 5.47 K/uL (4.8-10.8)
[2019-05-15 07:51] LABS: BUN Creatinine Ratio 14.8 (10-20); Calcium 8.8 mg/dl (8.5-10.1); Creatinine Clr Calc Pharmacy 60.3 ml/min; Est GFR (African American) 65.8; Est GFR (Non-African American) 56.8
[2019-05-15] MEDS: DICLOFENAC SOD 1% GEL 100 GM TUBE EXT SCH ×4 (08:45→20:51)
[2019-05-15] MEDS: MUPIROCIN 2% OINT 22 GM TUBE EXT SCH ×2 (08:46→20:51)
[2019-05-15] MEDS: ISOSORBIDE MONO EXTENDED REL 60 MG TABCR PO SCH (08:46)
[2019-05-15] MEDS: TOPIRAMATE 100 MG TAB PO SCH ×2 (08:46→20:53)
[2019-05-15] MEDS: PANTOprazole 40 MG TAB PO SCH (08:46)
[2019-05-15] MEDS: PROPRANOLOL HCL 10 MG TAB PO SCH ×2 (08:46→20:52)
[2019-05-15] MEDS: CITALOPRAM 40 MG TAB PO SCH (08:47)
[2019-05-15] MEDS: INSULIN GLARGINE SOLOSTAR 100 UNITS/ML 3 ML PEN SC SCH (08:47)
[2019-05-15] MEDS: INSULIN ASPART 100 UNITS/ML 3 ML PEN SC SCH ×4 (08:48→20:54)
[2019-05-15] MEDS ORDERED: PERFLUTREN LIPID MICROSPHERE (DEFINITY) IV ONE (09:10)
--- NOTE | 2019-05-15 11:30 | Hospitalist Progress Note ---
Date of Service May 15, 2019 Assessment & Plan (1) Headache, migraine: - May be contributing to chest pain and weakness. - Migraines are more prevalent over the last few weeks. - Continue Topamax 100 mg BID; also previously on Triptan. (2) Chest pain: - C/o 9/10 chest pain, has been occurring for the last few weeks but increased over the last few days. - In SR 70's on monitor; Trop negative x 2. - Echo showed mild LVH, otherwise negative for acute changes. - Will consult cardiology due to h/o CAD and symptoms c/w angina. (3) Cellulitis: - Previous culture +coag neg Staph; on Keflex as outpatient. - Continue Ceftriaxone as inpatient -- has had improvement in LE erythema. - VIPUL hose for compression -- edema also improving. (4) Coronary artery disease with hx of myocardial infarct w/o hx of CABG: - Follows with Dr. Mejia; consulting cardiology as noted above. - Continue ASA 81 mg MWF, Imdur 120 mg daily, Pravastatin 40 mg daily, Propranol ol 10 mg BID (for tremor and BP control) (5) Hypertension: - Continue Imdur & Propanolol as prescribed. (6) Diabetes mellitus, type 2: - Hgb A1C is pending. - BG was +300 at home, now improved. - Continue Lantus 20 units daily with SSI coverage. (7) Stage III chronic kidney disease: - Renally dose all meds. - Creatinine was above baseline on admission, now improving. - Trend BMP daily. Dispo: PCU/tele for evaluation of chest pain and rule out CVA. Discharge pending cardiology evaluation and completion of MRI. Subjective Pt. c/o chest pain this morning, rated as a 9/10. Pain is constant, located in sternal area. He states chest pain has been intermittent over the last few days, mostly with exertion. Chest pain is now present at rest. Radiates to left shoulder and jaw. Has associated SOB, denies nausea/vomiting. He has a headache -- has been a constant issue over the last few weeks. Follows with neurology for migraines. Has lower extremity weakness that led to fall -- MRI pending to rule out stroke. Will consult cardiology for evaluation. Review of Systems Review of Systems: All systems reviewed & are unremarkable except as noted in HPI & below Constitutional: + fatigue, + weakness and + anorexia; no fever and no chills Respiratory: + dyspnea and + dyspnea on exertion; no cough and no wheezing Cardiovascular: + chest pain, + chest pain at rest, + chest pain with activity and + radiating jaw, neck or arm pain; no palpitations and no edema Gastrointestinal: no abdominal pain, no nausea and no constipation Genitourinary: no difficulty urinating Musculoskeletal: no back pain and no joint pain Integumentary: no non-healing lesions Neurologic: + unsteadiness, + falls and + generalized weakness Physical Exam Physical Exam: General: Resting comfortably HEENT: NC/AT; PERRLA with EOMI; [place] conjunctiva, MMM. No erythema of posterior pharynx Neck: Supple and nontender Cardiac: RRR Lungs: CTA bilaterally Abdomen: Bowel normoactive X 4; Nontender to palpation Extremities: Warm. No edema present Neuro: No focal weakness Skin: No erythema, edema or open wounds noted on bilat LE. Results & Data Vital Signs (Past 12 Hours) Vital Signs Temp Pulse Resp BP Pulse Ox 05/15/19 11:15 36.4 C L 65 18 153/97 H 97 05/15/19 07:21 36.5 C 75 19 147/86 H 97 05/15/19 03:52 36.5 C 67 19 140/88 96 05/14/19 23:35 36.5 C 84 19 157/86 H 96 Laboratory Results 05/15/19 05/15/19 05/15/19 Range/Units 09:56 07:19 06:46 WBC (4.8-10.8) K/uL RBC (4.7-6.1) M/uL Hgb (14.0-18.0) g/dL Hct (42-52) % MCV (80-100) fL MCH (25-34) pg MCHC (32-36) g/dL RDW Std Deviation (36.4-46.3) fL RDW Coeff of Gissel (11.5-14.5) % Plt Count (130-400) K/uL MPV (7.4-10.4) fL Immature Gran % (Auto) % Neut % (Auto) % Lymph % (Auto) % [place] % (Auto) % Eos % (Auto) % Baso % (Auto) % Immature Gran # (Auto) (0.00-0.02) K/uL Neut # (Auto) (1.4-6.5) K/uL Lymph # (Auto) (1.2-3.4) K/uL [place] # (Auto) (0.11-0.59) K/uL Eos # (Auto) (0-0.5) K/uL Baso # (Auto) (0-0.2) K/uL PT (9.0-12.0) Seconds INR (0.9-1.1) APTT (21.0-31.0) Seconds PTT Ratio Sodium (136-145) mmol/L Potassium 3.9 (3.5-5.1) mmol/L Chloride (98-107) mmol/L Carbon Dioxide (21-32) mmol/L Anion Gap (3-11) BUN (7-18) mg/dl Creatinine (0.6-1.4) mg/dl Est Cr Clr Drug Dosing ml/min Est GFR ( Amer) Est GFR (Non-Af Amer) BUN/Creatinine Ratio (10-20) Glucose (70-99) mg/dl POC Glucose 119 H (70-99) Estimat Average Glucose Hemoglobin A1c Lactate (0.4-2.0) mmol/L Calcium (8.5-10.1) mg/dl Phosphorus (2.5-4.9) mg/dl Magnesium (1.8-2.4) mg/dl Total Bilirubin (0.2-1) mg/dl Direct Bilirubin (0-0.2) mg/dl AST (15-37) U/L ALT (12-78) U/L Alkaline Phosphatase (45-117) U/L Troponin I < 0.015 (0-0.045) ng/ml NT-Pro-B Natriuret Pep (0-900) pg/ml Total Protein (6.4-8.2) gm/dl Albumin (3.4-5.0) gm/dl Globulin (2.5-4.0) gm/dl Albumin/Globulin Ratio (0.9-2) Triglycerides (0-150) mg/dl Cholesterol (0-200) mg/dl LDL Cholesterol, Calc mg/dl VLDL Cholesterol, Calc mg/dl HDL Cholesterol mg/dl Cholesterol/HDL Ratio Urine Color Urine Appearance (Clear) Urine pH (4.5-7.5) Ur Specific [place] (1.000-1.030) Urine Protein (Negative) Urine Glucose (UA) (Negative) Urine Ketones (Negative) Urine Blood (Negative) Urine Nitrite (Negative) Urine Bilirubin (Negative) Urine Urobilinogen (Negative) Ur Leukocyte Esterase (Negative) Anaplasma Smear A. phagocytophilum DNA Lyme Disease IgG Ab (Negative) Lyme Disease IgM Ab (Negative) Rickettsia IgG Ab Rickettsia IgM Ab 05/15/19 05/15/19 05/15/19 Range/Units 06:46 06:46 06:46 WBC 5.47 (4.8-10.8) K/uL RBC 4.46 L (4.7-6.1) M/uL Hgb 14.6 (14.0-18.0) g/dL Hct 43.2 (42-52) % MCV 96.9 (80-100) fL MCH 32.7 (25-34) pg MCHC 33.8 (32-36) g/dL RDW Std Deviation 46.8 H (36.4-46.3) fL RDW Coeff of Gissel 13.3 (11.5-14.5) % Plt Count 165 (130-400) K/uL MPV 10.3 (7.4-10.4) fL Immature Gran % (Auto) 0.4 % Neut % (Auto) 70.6 % Lymph % (Auto) 18.1 % [place] % (Auto) 8.8 % Eos % (Auto) 1.6 % Baso % (Auto) 0.5 % Immature Gran # (Auto) 0.02 (0.00-0.02) K/uL Neut # (Auto) 3.86 (1.4-6.5) K/uL Lymph # (Auto) 0.99 L (1.2-3.4) K/uL [place] # (Auto) 0.48 (0.11-0.59) K/uL Eos # (Auto) 0.09 (0-0.5) K/uL Baso # (Auto) 0.03 (0-0.2) K/uL PT (9.0-12.0) Seconds INR (0.9-1.1) APTT (21.0-31.0) Seconds PTT Ratio Sodium 138 (136-145) mmol/L Potassium (3.5-5.1) mmol/L Chloride 110 H (98-107) mmol/L Carbon Dioxide 21 (21-32) mmol/L Anion Gap 7.0 (3-11) BUN 19 H (7-18) mg/dl Creatinine 1.25 (0.6-1.4) mg/dl Est Cr Clr Drug Dosing 60.3 ml/min Est GFR ( Amer) 65.8 Est GFR (Non-Af Amer) 56.8 BUN/Creatinine Ratio 14.8 (10-20) Glucose 124 H (70-99) mg/dl POC Glucose (70-99) Estimat Average Glucose Pending Hemoglobin A1c Pending Lactate (0.4-2.0) mmol/L Calcium 8.8 (8.5-10.1) mg/dl Phosphorus (2.5-4.9) mg/dl Magnesium (1.8-2.4) mg/dl Total Bilirubin (0.2-1) mg/dl Direct Bilirubin (0-0.2) mg/dl AST (15-37) U/L ALT (12-78) U/L Alkaline Phosphatase (45-117) U/L Troponin I (0-0.045) ng/ml NT-Pro-B Natriuret Pep (0-900) pg/ml Total Protein (6.4-8.2) gm/dl Albumin (3.4-5.0) gm/dl Globulin (2.5-4.0) gm/dl Albumin/Globulin Ratio (0.9-2) Triglycerides 146 (0-150) mg/dl Cholesterol 161 (0-200) mg/dl LDL Cholesterol, Calc 89 mg/dl VLDL Cholesterol, Calc 29 mg/dl HDL Cholesterol 43 mg/dl Cholesterol/HDL Ratio 4 Urine Color Urine Appearance (Clear) Urine pH (4.5-7.5) Ur Specific [place] (1.000-1.030) Urine Protein (Negative) Urine Glucose (UA) (Negative) Urine Ketones (Negative) Urine Blood (Negative) Urine Nitrite (Negative) Urine Bilirubin (Negative) Urine Urobilinogen (Negative) Ur Leukocyte Esterase (Negative) Anaplasma Smear A. phagocytophilum DNA Lyme Disease IgG Ab (Negative) Lyme Disease IgM Ab (Negative) Rickettsia IgG Ab Rickettsia IgM Ab 05/14/19 05/14/19 05/14/19 Range/Units 20:51 14:47 13:17 WBC (4.8-10.8) K/uL RBC (4.7-6.1) M/uL Hgb (14.0-18.0) g/dL Hct (42-52) % MCV (80-100) fL MCH (25-34) pg MCHC (32-36) g/dL RDW Std Deviation (36.4-46.3) fL RDW Coeff of Gissel (11.5-14.5) % Plt Count (130-400) K/uL MPV (7.4-10.4) fL Immature Gran % (Auto) % Neut % (Auto) % Lymph % (Auto) % [place] % (Auto) % Eos % (Auto) % Baso % (Auto) % Immature Gran # (Auto) (0.00-0.02) K/uL Neut # (Auto) (1.4-6.5) K/uL Lymph # (Auto) (1.2-3.4) K/uL [place] # (Auto) (0.11-0.59) K/uL Eos # (Auto) (0-0.5) K/uL Baso # (Auto) (0-0.2) K/uL PT (9.0-12.0) Seconds INR (0.9-1.1) APTT (21.0-31.0) Seconds PTT Ratio Sodium (136-145) mmol/L Potassium (3.5-5.1) mmol/L Chloride (98-107) mmol/L Carbon Dioxide (21-32) mmol/L Anion Gap (3-11) BUN (7-18) mg/dl Creatinine (0.6-1.4) mg/dl Est Cr Clr Drug Dosing ml/min Est GFR ( Amer) Est GFR (Non-Af Amer) BUN/Creatinine Ratio (10-20) Glucose (70-99) mg/dl POC Glucose 89 (70-99) Estimat Average Glucose Hemoglobin A1c Lactate 1.4 (0.4-2.0) mmol/L Calcium (8.5-10.1) mg/dl Phosphorus (2.5-4.9) mg/dl Magnesium (1.8-2.4) mg/dl Total Bilirubin (0.2-1) mg/dl Direct Bilirubin (0-0.2) mg/dl AST (15-37) U/L ALT (12-78) U/L Alkaline Phosphatase (45-117) U/L Troponin I (0-0.045) ng/ml NT-Pro-B Natriuret Pep (0-900) pg/ml Total Protein (6.4-8.2) gm/dl Albumin (3.4-5.0) gm/dl Globulin (2.5-4.0) gm/dl Albumin/Globulin Ratio (0.9-2) Triglycerides (0-150) mg/dl Cholesterol (0-200) mg/dl LDL Cholesterol, Calc mg/dl VLDL Cholesterol, Calc mg/dl HDL Cholesterol mg/dl Cholesterol/HDL Ratio Urine Color Yellow Urine Appearance Clear (Clear) Urine pH 7.0 (4.5-7.5) Ur Specific [place] 1.021 (1.000-1.030) Urine Protein Negative (Negative) Urine Glucose (UA) Negative (Negative) Urine Ketones Negative (Negative) Urine Blood Negative (Negative) Urine Nitrite Negative (Negative) Urine Bilirubin Negative (Negative) Urine Urobilinogen Negative (Negative) Ur Leukocyte Esterase Negative (Negative) Anaplasma Smear A. phagocytophilum DNA Lyme Disease IgG Ab (Negative) Lyme Disease IgM Ab (Negative) Rickettsia IgG Ab Rickettsia IgM Ab 05/14/19 05/14/19 05/14/19 Range/Units 13:00 13:00 13:00 WBC (4.8-10.8) K/uL RBC (4.7-6.1) M/uL Hgb (14.0-18.0) g/dL Hct (42-52) % MCV (80-100) fL MCH (25-34) pg MCHC (32-36) g/dL RDW Std Deviation (36.4-46.3) fL RDW Coeff of Gissel (11.5-14.5) % Plt Count (130-400) K/uL MPV (7.4-10.4) fL Immature Gran % (Auto) % Neut % (Auto) % Lymph % (Auto) % [place] % (Auto) % Eos % (Auto) % Baso % (Auto) % Immature Gran # (Auto) (0.00-0.02) K/uL Neut # (Auto) (1.4-6.5) K/uL Lymph # (Auto) (1.2-3.4) K/uL [place] # (Auto) (0.11-0.59) K/uL Eos # (Auto) (0-0.5) K/uL Baso # (Auto) (0-0.2) K/uL PT 10.4 (9.0-12.0) Seconds INR 1.0 (0.9-1.1) APTT 23.9 (21.0-31.0) Seconds PTT Ratio 0.9 Sodium 142 (136-145) mmol/L Potassium 3.7 (3.5-5.1) mmol/L Chloride 111 H (98-107) mmol/L Carbon Dioxide 21 (21-32) mmol/L Anion Gap 10.0 (3-11) BUN 25 H (7-18) mg/dl Creatinine 1.53 H (0.6-1.4) mg/dl Est Cr Clr Drug Dosing 50.9 ml/min Est GFR ( Amer) 51.5 Est GFR (Non-Af Amer) 44.5 BUN/Creatinine Ratio 16.3 (10-20) Glucose 63 L (70-99) mg/dl POC Glucose (70-99) Estimat Average Glucose Hemoglobin A1c Lactate (0.4-2.0) mmol/L Calcium 8.9 (8.5-10.1) mg/dl Phosphorus 3.3 (2.5-4.9) mg/dl Magnesium 2.1 (1.8-2.4) mg/dl Total Bilirubin 0.3 (0.2-1) mg/dl Direct Bilirubin 0.1 (0-0.2) mg/dl AST 22 (15-37) U/L ALT 28 (12-78) U/L Alkaline Phosphatase 89 (45-117) U/L Troponin I < 0.015 (0-0.045) ng/ml NT-Pro-B Natriuret Pep 103 (0-900) pg/ml Total Protein 6.6 (6.4-8.2) gm/dl Albumin 3.1 L (3.4-5.0) gm/dl Globulin 3.5 (2.5-4.0) gm/dl Albumin/Globulin Ratio 0.9 (0.9-2) Triglycerides (0-150) mg/dl Cholesterol (0-200) mg/dl LDL Cholesterol, Calc mg/dl VLDL Cholesterol, Calc mg/dl HDL Cholesterol mg/dl Cholesterol/HDL Ratio Urine Color Urine Appearance (Clear) Urine pH (4.5-7.5) Ur Specific [place] (1.000-1.030) Urine Protein (Negative) Urine Glucose (UA) (Negative) Urine Ketones (Negative) Urine Blood (Negative) Urine Nitrite (Negative) Urine Bilirubin (Negative) Urine Urobilinogen (Negative) Ur Leukocyte Esterase (Negative) Anaplasma Smear A. phagocytophilum DNA Lyme Disease IgG Ab Negative (Negative) Lyme Disease IgM Ab Negative (Negative) Rickettsia IgG Ab Rickettsia IgM Ab 05/14/19 05/14/19 Range/Units 13:00 13:00 WBC 6.44 (4.8-10.8) K/uL RBC 4.22 L (4.7-6.1) M/uL Hgb 13.9 L (14.0-18.0) g/dL Hct 41.0 L (42-52) % MCV 97.2 (80-100) fL MCH 32.9 (25-34) pg MCHC 33.9 (32-36) g/dL RDW Std Deviation 47.4 H (36.4-46.3) fL RDW Coeff of Gissel 13.4 (11.5-14.5) % Plt Count 203 (130-400) K/uL MPV 10.4 (7.4-10.4) fL Immature Gran % (Auto) 0.6 % Neut % (Auto) 67.9 % Lymph % (Auto) 20.0 % [place] % (Auto) 9.0 % Eos % (Auto) 2.2 % Baso % (Auto) 0.3 % Immature Gran # (Auto) 0.04 H (0.00-0.02) K/uL Neut # (Auto) 4.37 (1.4-6.5) K/uL Lymph # (Auto) 1.29 (1.2-3.4) K/uL [place] # (Auto) 0.58 (0.11-0.59) K/uL Eos # (Auto) 0.14 (0-0.5) K/uL Baso # (Auto) 0.02 (0-0.2) K/uL PT (9.0-12.0) Seconds INR (0.9-1.1) APTT (21.0-31.0) Seconds PTT Ratio Sodium (136-145) mmol/L Potassium (3.5-5.1) mmol/L Chloride (98-107) mmol/L Carbon Dioxide (21-32) mmol/L Anion Gap (3-11) BUN (7-18) mg/dl Creatinine (0.6-1.4) mg/dl Est Cr Clr Drug Dosing ml/min Est GFR ( Amer) Est GFR (Non-Af Amer) BUN/Creatinine Ratio (10-20) Glucose (70-99) mg/dl POC Glucose (70-99) Estimat Average Glucose Hemoglobin A1c Lactate (0.4-2.0) mmol/L Calcium (8.5-10.1) mg/dl Phosphorus (2.5-4.9) mg/dl Magnesium (1.8-2.4) mg/dl Total Bilirubin (0.2-1) mg/dl Direct Bilirubin (0-0.2) mg/dl AST (15-37) U/L ALT (12-78) U/L Alkaline Phosphatase (45-117) U/L Troponin I (0-0.045) ng/ml NT-Pro-B Natriuret Pep (0-900) pg/ml Total Protein (6.4-8.2) gm/dl Albumin (3.4-5.0) gm/dl Globulin (2.5-4.0) gm/dl Albumin/Globulin Ratio (0.9-2) Triglycerides (0-150) mg/dl Cholesterol (0-200) mg/dl LDL Cholesterol, Calc mg/dl VLDL Cholesterol, Calc mg/dl HDL Cholesterol mg/dl Cholesterol/HDL Ratio Urine Color Urine Appearance (Clear) Urine pH (4.5-7.5) Ur Specific [place] (1.000-1.030) Urine Protein (Negative) Urine Glucose (UA) (Negative) Urine Ketones (Negative) Urine Blood (Negative) Urine Nitrite (Negative) Urine Bilirubin (Negative) Urine Urobilinogen (Negative) Ur Leukocyte Esterase (Negative) Anaplasma Smear See Comment A. phagocytophilum DNA Pending Lyme Disease IgG Ab (Negative) Lyme Disease IgM Ab (Negative) Rickettsia IgG Ab Pending Rickettsia IgM Ab Pending PG Care Time/CCT Total # of Minutes Spent Total Time Spent with Patient: Total time spent is greater than 50% in coordination of care (as documented) at patient's floor/unit and/or counseling patient: (1) Diabetes mellitus, type 2 Diabetes mellitus complication detail: with polyneuropathy Diabetes mellitus complication status: with neurologic complications Diabetes mellitus intermediate project manager insulin use: with intermediate project manager use Qualified Code(s): E11.42 - Type 2 diabetes mellitus with diabetic polyneuropathy; 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
--- NOTE | 2019-05-15 16:28 | XRay Report ---
XR orbits for MRI CLINICAL HISTORY: 74 years-old Male presenting with For MRI, possible metal in eyes.. TECHNIQUE: 3 views of the orbits were obtained. COMPARISON: CT head from 05/14/2019. FINDINGS: No radiopaque intraorbital foreign body. Bony orbits grossly intact. Paranasal sinuses grossly clear. Visualized portion of the calvarium intact. IMPRESSION: No intraorbital metallic foreign body to preclude MRI exam. Electronically signed by: David Kwong M.D. 05/15/2019 4:27 PM
[2019-05-15] MEDS ORDERED: GADOBUTROL 30ML VIAL IV PRN (16:59)
--- NOTE | 2019-05-15 17:28 | Magnetic Resonance Report ---
MR brain wo/w con CLINICAL HISTORY: 74 years-old Male presenting with headache, dizziness, double vision, history of [facility] ro[facility] and heart attack. TECHNIQUE: Multisequence, multiplanar MR imaging of the brain was performed before and after the admi nistration of intravenous contrast. IV contrast: 9.5 mL of Gadavist. COMPARISON: 12/23/[address] head from the previous day. FINDINGS: Localizer images: Unremarkable. Bone marrow signal intensity within the calvarium within normal limits. Normal midline sagittal structures. Proportional ventricular and sulcal prominence, likely age-relate d parenchymal volume loss. No mass effect or midline shift. No restricted diffusion or hemorrhage. Mi ld T-2/flair hyperintensity within the periventricular and subcortical white matter likely age-relate d change or early chronic small vessel ischemic change. No abnormal parenchymal enhancement. No extra-axial fluid collection. T2 skull base flow voids preserved. Bilateral [place] lenses are abse nt. IMPRESSION: 1. No acute intracranial pathology. No abnormal enhancement. Electronically signed by: David Kwong M.D. 05/15/2019 5:26 PM
[2019-05-15] MEDS: ERYTHROMYCIN OP OINT 5 MG/GM 3.5 GM TUBE OPB SCH (20:51)
[2019-05-15] MEDS: HEPARIN SOD 5,000 UNIT/0.5 ML VIAL SQ SCH (20:53)
[2019-05-15] MEDS: PRAVASTATIN SOD 40 MG TAB PO SCH (20:54)
[2019-05-15] MEDS: cefTRIAXone SODIUM 2,000 MG in DEXTROSE 5% 50 ML IV SCH (21:05)
[2019-05-16 06:23] LABS: Basophils # (auto) 0.02 K/uL (0-0.2); Basophils % (auto) 0.3 %; Eosinophils # (auto) 0.19 K/uL (0-0.5); Eosinophils % (auto) 2.4 %; Hematocrit (blood only) 50.4 % (42-52); Hemoglobin 17.3 g/dL (14.0-18.0); Immature Granulocytes # (auto) 0.05 K/uL (0.00-0.02); Immature Granulocytes % (auto) 0.6 %; Lymphocytes % (auto) 17.9 %; Mean Corpuscular Hemoglobin 33.3 pg (25-34); Mean Corpuscular Hgb Conc 34.3 g/dL (32-36); Mean Corpuscular Volume 96.9 fL (80-100); Monocytes # (auto) 0.57 K/uL (0.11-0.59); Monocytes % (auto) 7.3 %; Neutrophils # (auto) 5.58 K/uL (1.4-6.5); Neutrophils % (auto) 71.5 %; Platelet Count 247 K/uL (130-400); RDW Coefficient of Variation 13.4 % (11.5-14.5); RDW Standard Deviation 47.1 fL (36.4-46.3); White Blood Count 7.81 K/uL (4.8-10.8)
[2019-05-16 06:55] LABS: BUN Creatinine Ratio 11.8 (10-20); Calcium 9.4 mg/dl (8.5-10.1); Creatinine Clr Calc Pharmacy 50.4 ml/min; Est GFR (African American) 53.6; Est GFR (Non-African American) 46.3; Potassium 3.9 mmol/L (3.5-5.1)
[2019-05-16 07:28] LABS: Estimated Average Glucose 140 mg/dl; Hemoglobin A1C 6.5 % (4.5-5.6)
[2019-05-16] MEDS: INSULIN ASPART 100 UNITS/ML 3 ML PEN SC SCH ×4 (07:56→20:30)
[2019-05-16] MEDS: ASPIRIN 81 MG CHEW PO SCH (07:57)
[2019-05-16] MEDS: MUPIROCIN 2% OINT 22 GM TUBE EXT SCH ×2 (07:57→20:33)
[2019-05-16] MEDS: CITALOPRAM 20 MG TAB PO SCH (07:58)
[2019-05-16] MEDS: HEPARIN SOD 5,000 UNIT/0.5 ML VIAL SQ SCH ×2 (07:58→20:32)
[2019-05-16] MEDS: ISOSORBIDE MONO EXTENDED REL 60 MG TABCR PO SCH (08:00)
[2019-05-16] MEDS: PROPRANOLOL HCL 10 MG TAB PO SCH ×2 (08:00→20:32)
[2019-05-16] MEDS: TOPIRAMATE 100 MG TAB PO SCH ×2 (08:01→20:32)
[2019-05-16] MEDS: DICLOFENAC SOD 1% GEL 100 GM TUBE EXT SCH ×4 (08:01→20:33)
[2019-05-16] MEDS: PANTOprazole 40 MG TAB PO SCH (08:01)
[2019-05-16] MEDS: INSULIN GLARGINE SOLOSTAR 100 UNITS/ML 3 ML PEN SC SCH (08:45)
[2019-05-16] MEDS ORDERED: OPTIRAY 320 125ml IV PRN (10:15)
--- NOTE | 2019-05-16 10:26 | CT Scan Report ---
CT ANGIOGRAM OF THE CHEST CLINICAL HISTORY: Dyspnea. COMPARISON STUDY: Chest CT scans dated 05/10/2019 and 11/11/2010. TECHNIQUE: Following the IV administration of 118 cc of Optiray 320, CT angiogram of the chest was pe rformed from the upper abdomen to the thoracic inlet utilizing the pulmonary embolus protocol. Images are reviewed in the axial, sagittal, and coronal planes. 3-D MIPS images are created and assessed. I V contrast was administered without complication. A dose lowering technique was utilized adhering to the principles of ALARA. The examination is degraded by motion artifact. CT DOSE: 812.89 mGy.cm FINDINGS: Thyroid: Imaged portions of the thyroid gland are normal in size and attenuation. Thoracic aorta: There is mild atherosclerotic calcification of the thoracic aorta, which is normal in caliber and demonstrates standard 3-vessel arch anatomy. No dissection is seen. Pulmonary vasculature: The pulmonary trunk is normal in caliber. There are no filling defects identif ied in main, lobar, or proximal segmental pulmonary branches to suggest pulmonary embolus. Evaluation of the peripheral branches is degraded by motion artifact. Heart: The heart is large and without pericardial effusion. The coronary arteries are densely calcifi ed. Lungs and pleural spaces: Evaluation of the lung parenchyma is degraded by motion artifact. There is no airspace consolidation, pleural effusion, or pneumothorax. Mild atelectasis is noted at the lung b ases. The trachea and central airways are clear. Scattered calcified granulomas are observed. A 10 mm peripherally calcified nodule at the right lung base seen on image #86 has been present dating back to 2011 and is of doubtful significance. Mediastinum: There is no mediastinal lymphadenopathy. [place]: There are calcified hilar nodes. No hilar adenopathy is seen. Axillae: There is no axillary lymphadenopathy. Upper abdomen: There is a small hiatal hernia. Numerous calcified granulomas are present in the splee n. There are small calcified gallstones. Skeletal structures: The skeletal structures are osteopenic. The bony thorax is intact. Mild degenera tive changes noted in the thoracic spine. No lytic or blastic lesions are identified. IMPRESSION: 1. There is no evidence of pulmonary embolus in the main, lobar, or segmental pulmonary arteries. 2. Cardiomegaly. 3. There is no airspace consolidation or pleural effusion. 4. Cholelithiasis. Electronically signed by: Jonny Zambrano M.D. 05/16/2019 10:25 AM
[2019-05-16] MEDS: SODIUM CHLORIDE 0.9% 1000ML 1,000 ML IV SCH ×2 (10:33→17:40)
--- NOTE | 2019-05-16 11:42 | Cardiology Consultation ---
Date of Consultation May 16, 2019 Assessment & Plan (1) Left-sided chest pain: He is describing 2 types of chest discomfort. He has a sharp left-sided stabbing momentary discomfort which sounds pleuritic, that is being evaluated and he just had his CT scan with results pending. That could demonstrate for me and does not sound cardiac. He has another type of chest discomfort which is long-standing, exertional and sounds more cardiac in nature. This is described as a heaviness in his chest which resolves with rest. It occurred with minimal activity today suggesting that this may be crescendo angina. I discussed possible catheterization with him. As noted below I do not think I would do a stress test, however catheterization may be reasonable. We probably should not do another dye load immediately and I have tentatively planned this for May 19. (2) Coronary artery disease with hx of myocardial infarct w/o hx of CABG: He has known coronary artery disease, it did not require intervention or surgery in the past but that was 9 years ago. He now describes exertional chest discomfort which may be crescendo (unstable) and occurred with minimal activity today. We could do a stress test to evaluate it, however his stress test in the past has been abnormal and that may not be helpful. Since we know he has coronary artery disease I think it would be reasonable to consider catheterization in the setting of possible unstable angina, but he has not had an infarction (his enzymes are negative). His electrocardiogram is little unusual for not having a significant wall motion abnormality but it has not changed. (3) Edema of both legs: He has pretibial pitting edema, he tells me that this is much better than before. He was currently receiving IV hydration for his CAT scan dye, he may need a little more diuresis but he may also need another dye load for catheterization. I have not altered his fluids or diuretic. History of Present Illness Reason for Consultation: Chest discomfort Attending Physician: Suresh Kimbrough, DO History of Present Illness This is a 74-year-old gentleman who follows in the office with Dr. Mejia. He has a history of hyperlipidemia, prior smoking, diabetes mellitus, hypertension, chronic kidney disease and coronary artery disease but also has noncardiac chest discomfort. He has been maintained on statin therapy (although not high dose but with good cholesterol control) and aspirin, I believe his last catheterization was in 2009 where he had second diagonal stenosis with some collateralization but no other occlusive disease. He has had several presentat ions for chest discomfort which has been felt to be noncardiac. He does however have chronic stable exertional angina and higher levels of activity. He has been in the emergency room over the last several months for multiple different things, he presented May 14, 2019 with complaints of generalized weakness and headache, and also atypical chest discomfort. Echocardiography shows no left ventricular dysfunction or wall motion abnormalities, electrocardiography is not normal with a suggestion of an old inferior and a lateral myocardial infarction however this is not a recent finding and troponins have been negative this admission, as they were April 21 and April 22, October 20 all this year and December 2017. I do not see a recent stress test, there was a nuclear stress test done in February 2010 which was abnormal. The chest discomfort he presented with sounds pleuritic, he describes a sharp left-sided anterior chest discomfort which occurs with taking a breath, when I examined him he had this discomfort when taking a breath and he could also demonstrate it by taking a breath. It is momentary and does not sound cardiac. He was however taken for a gentle walk by physical therapy and they noted that he had some substernal chest heaviness with this amount of exertion, which was minimal. He describes that to me as well. That could potentially be ischemic. He notes that he still has peripheral edema although it is improving. He has no other complaints at the moment. Allergies Allergy/AdvReac Type Severity Reaction Status Date / Time morphine AdvReac Severe "STOPS MY Verified 05/14/19 13:24 HEART" hydromorphone [From Dilaudid] AdvReac Intermediate unresponsiv Verified 05/14/19 13:24 eness trazodone AdvReac Intermediate GI UPSET Verified 05/14/19 13:24 diazepam AdvReac Mild HALLUCINATE Verified 05/14/19 13:24 S propoxyphene AdvReac Mild DRUG Verified 05/14/19 13:24 INTOLERANCE Home Medications Home Medications Medication Instructions Recorded Confirmed Type topiramate [Topamax] 100 mg PO BID 05/17/18 05/14/19 History diclofenac sodium [Voltaren] 2 gm TOP QID #100 gm 10/20/18 05/14/19 Rx pen needle, diabetic 31 gauge x #30 ea 12/03/18 05/14/19 Rx 5/16" isosorbide mononitrate 120 mg 120 mg PO QAM #90 tab 01/08/19 05/14/19 Rx tablet,extended release 24 hr aspirin 81 mg chewable tablet 81 mg PO MOWEFR 02/05/19 05/14/19 History citalopram 20 mg tablet 20 mg PO MOWEFR tab 02/05/19 05/14/19 History insulin glargine 100 unit/mL (3 65 units SQ HS #60 ml 02/05/19 05/14/19 Rx mL) subcutaneous pen insulin lispro 100) 100 unit/mL 5 - 35 units SUBCUT AC ml 02/05/19 05/14/19 History subcutaneous pen nitroglycerin 0.4 mg sublingual 0.4 mg SL Q5M PRN #1 tab 02/05/19 05/14/19 History tablet clindamycin phosphate 1 % lotion 1 appln TOP .COMPLEX #60 ml 03/11/19 05/14/19 Rx propranolol 10 mg tablet 10 mg PO BID #180 tab 03/25/19 05/14/19 Rx citalopram 40 mg PO SUTUTHSA 04/21/19 05/14/19 History pravastatin 40 mg PO HS 04/21/19 05/14/19 History acetaminophen [Tylenol Extra 1,000 mg PO Q8H PRN #30 tab 04/23/19 05/14/19 Rx Strength] pantoprazole 40 mg tablet,delayed 40 mg PO QAM #90 tab 04/25/19 05/14/19 Rx release mupirocin 2 % topical ointment 1 appln TOP BID #22 gm 05/01/19 05/14/19 Rx cephalexin 500 mg capsule 500 mg PO TID #90 cap 05/07/19 05/14/19 Rx erythromycin 1 applic OPB HS 05/10/19 05/14/19 History ranitidine HCl 300 mg tablet 300 mg PO HS #90 tab 05/12/19 05/14/19 Rx Patient History Medical History Atypical chest pain (Resolved) Benign colonic polyp (Chronic) CAD in [place] artery (Chronic) Cellulitis Chronic kidney disease (CKD) (Acute) Cognitive disorder (Chronic) Controlled type 2 diabetes mellitus with neurologic complication, with long-term current use of insulin (Resolved) Conversion disorder (Resolved) Diabetes mellitus, type 2 (Chronic) Diabetic peripheral neuropathy (Chronic) Dyslipidemia (Resolved) Esophageal reflux (Chronic) History of colon polyps (Chronic) History of tobacco use (Resolved) Hyperlipidemia (Chronic) Hypertension (Chronic) Kidney stone on right side (Resolved) Migraines, neuralgic (Chronic) Myocardial Infarction (Resolved) 2004--follows with Dr. Mejia Nephrolithiasis (Resolved) Neurological deficit present (Resolved) Neuropathy (Chronic) Osteoarthritis (Chronic) Raynauds phenomenon (Chronic) Stage III chronic kidney disease (Chronic) Tubular adenoma of colon (Resolved) Vitamin D deficiency (Chronic) Wound of left foot (Resolved) Surgical History History of arthroscopy of left knee (Resolved) History of cardiac cath (Resolved) x3-4, last 2014 History of carpal tunnel release of both wrists (Resolved) History of colonoscopy (Resolved) History of heart artery stent (Resolved) x1--1998 History of lithotripsy (Resolved) x2 History of lumbar discectomy (Resolved) x2 History of open reduction and internal fixation (ORIF) procedure (Resolved) left ankle--hardware in place History of right cataract extraction (Resolved) History of tonsillectomy and adenoidectomy (Resolved) Status post uvulopalatopharyngoplasty (Resolved) Family History Father Family history of diabetes mellitus Family hx of colon cancer Other No family history of adverse response to anesthesia Social History Preferred Language: [place]ian Communication Ability: Effective Rn Allergy Required: No Beliefs That Will Affect Care: None marital status: Current Living Situation: Spouse Feels Safe at Home: Yes Safety Concerns: Feels Safe At This Time Smoking Status: Former smoker Second Hand Exposure: No ; Hx Alcohol Use: No Hx Substance Use: No Review of Systems Review of Systems: All systems reviewed & are unremarkable except as noted in HPI & below Physical Exam Physical Exam: Constitutional: Alert, cooperative and in no distress. HEENT: Unremarkable Neck: No jugular venous distention, carotid pulses are normal and equal bilaterally without bruits. Pulmonary: Clear to auscultation bilaterally. He does seem to get sharp left- sided chest discomfort with deep inspiration. Cardiac: Regular rhythm with no murmur, gallop or rub. Abdomen: Soft, nontender with normal bowel sounds. Extremities: +1 bilateral pretibial pitting edema. Distal pulses intact. Neurologic: No focal findings. Gait is steady. Skin: No rash, ecchymoses or petechiae. Results & Data Vital Signs (Past 12 Hours) Vital Signs Temp Pulse Resp BP Pulse Ox 05/16/19 11:24 36.4 C L 66 20 138/87 98 05/16/19 07:54 36.4 C L 75 18 139/99 97 05/16/19 02:59 36.5 C 75 16 139/89 96 Laboratory Results Abnormal lab results 05/15/19 05/15/19 05/15/19 Range/Units 06:46 17:24 20:31 RDW Std Deviation (36.4-46.3) fL MPV (7.4-10.4) fL Immature Gran # (Auto) (0.00-0.02) K/uL Chloride (98-107) mmol/L Carbon Dioxide (21-32) mmol/L Creatinine (0.6-1.4) mg/dl Glucose (70-99) mg/dl POC Glucose 125 H 184 H (70-99) Hemoglobin A1c 6.5 H (4.5-5.6) % 05/16/19 05/16/19 05/16/19 Range/Units 05:57 05:57 11:25 RDW Std Deviation 47.1 H (36.4-46.3) fL MPV 11.0 H (7.4-10.4) fL Immature Gran # (Auto) 0.05 H (0.00-0.02) K/uL Chloride 108 H (98-107) mmol/L Carbon Dioxide 20 L (21-32) mmol/L Creatinine 1.48 H (0.6-1.4) mg/dl Glucose 192 H (70-99) mg/dl POC Glucose 152 H (70-99) Hemoglobin A1c (4.5-5.6) % Diagnostic Findings ECG: Several electrocardiograms are available for review, these show a probable old inferior and a probable old lateral infarction, although these are not seen on his echocardiogram. They are unchanged from prior electrocardiograms. Telemetry: Sinus rhythm, no significant arrhythmia. PG Care Time/CCT Total # of Minutes Spent Total Time Spent with Patient: Total time spent is greater than 50% in coordination of care (as documented) at patient's floor/unit and/or counseling patient:
--- NOTE | 2019-05-16 13:14 | Hospitalist Progress Note ---
Date of Service May 16, 2019 Assessment & Plan (1) Chest pain: - C/o left sided chest pain with radiation to left shoulder/jaw, has been occurring for the last few weeks but increased prior to admission. - Pt. reported a h/o PE in 1988 and DVT in 1989 and 1998; he describes left sided pleuritic pain -- CT PE was negative. - Also has chronic anginal symptoms over the last few weeks concerning for cardiac source in setting of CAD. - Sinus rhythm on monitor; Trop negative x 2. - Echo showed mild LVH, otherwise negative for acute changes. - Consulted cardiology, stress test would not be beneficial and is not available during the holiday weekend. He will need to remain inpatient over weekend, plan for cardiac cath on SundayMay 19. (2) Cellulitis: - Previous culture +coag neg Staph; on Keflex as outpatient. - Continue Ceftriaxone as inpatient -- LE erythema is now improving, can likely d/c IV abx after 5 day course due to recent Keflex. - Currently receiving IV fluids @ 150 cc/hr due to IV contrast for CT scan, monitor for increased edema -- may require diuresis. (3) Headache, migraine: - May be contributing to chest pain and weakness. - Migraines are more prevalent over the last few weeks. - Continue Topamax 100 mg BID; also previously on Triptan. - Head MRI was negative during this admission; f/u with neurology for management. (4) Coronary artery disease with hx of myocardial infarct w/o hx of CABG: - Follows with Dr. Mejia; consulting cardiology, plan for cardiac cath on SundayMay 19. - Continue ASA 81 mg MWF, Imdur 120 mg daily, Pravastatin 40 mg daily, Propranolol 10 mg BID (for tremor and BP control) (5) Hypertension: - Continue Imdur & Propanolol as prescribed. (6) Diabetes mellitus, type 2: - Hgb A1C is 6.5. - BG was +300 at home, now well controlled. - Continue Lantus 20 units daily (received 1/2 dose this AM due to NPO status) with SSI coverage. (7) Stage III chronic kidney disease: - Renally dose all meds. - Creatinine is at baseline ~1.4-1.5. - Receiving IV fluids to avoid contrast induced JUANCARLOS - monitor renal function closely over next 48 hours. Will also need hydration prior to cardiac cath on Sunday. Dispo: Plan for cardiac cath on SundayMay 19. Downgrade to med/surg with tele over the weekend. Subjective Pt. c/o left sided pleuritic chest pain, increased with inspiration. He also has chronic persistent left sided chest pain with radiation to left shoulder. Trop neg x 2, EKG with no significant changes. Stress test cannot be completed today due to holiday. CT PE was negative. Per cardiology, stress test would not be beneficial and he will require cardiac cath on Sunday. Plan to remain inpatient over weekend with procedure on May 19. Review of Systems Review of Systems: All systems reviewed & are unremarkable except as noted in HPI & below Constitutional: no fever, no chills, no fatigue, no weakness and no anorexia Respiratory: + dyspnea and + dyspnea on exertion; no cough and no wheezing Cardiovascular: + chest pain, + chest pain at rest, + chest pain with activity, + radiating jaw, neck or arm pain and + edema; no palpitations Gastrointestinal: no abdominal pain, no nausea and no constipation Genitourinary: no difficulty urinating Musculoskeletal: no back pain and no joint pain Integumentary: no non-healing lesions Physical Exam Physical Exam: General: Resting comfortably, no acute distress HEENT: NC/AT; PERRLA with EOMI; Vandiver conjunctiva, MMM. No erythema of posterior pharynx Neck: Supple and nontender Cardiac: RRR Lungs: on room air; CTA bilaterally. Does have significant left sided chest pain with breathing during auscultation. Abdomen: Bowel normoactive X 4; Nontender to palpation Extremities: Warm. No edema present Neuro: No focal weakness Skin: No erythema, edema or open wounds on bilat LE. Results & Data Vital Signs (Past 12 Hours) Vital Signs Temp Pulse Resp BP Pulse Ox 05/16/19 11:24 36.4 C L 66 20 138/87 98 05/16/19 07:54 36.4 C L 75 18 139/99 97 05/16/19 02:59 36.5 C 75 16 139/89 96 Laboratory Results 05/16/19 05/16/19 05/16/19 Range/Units 11:25 05:57 05:57 WBC 7.81 (4.8-10.8) K/uL RBC 5.20 (4.7-6.1) M/uL Hgb 17.3 (14.0-18.0) g/dL Hct 50.4 (42-52) % MCV 96.9 (80-100) fL MCH 33.3 (25-34) pg MCHC 34.3 (32-36) g/dL RDW Std Deviation 47.1 H (36.4-46.3) fL RDW Coeff of Gissel 13.4 (11.5-14.5) % Plt Count 247 (130-400) K/uL MPV 11.0 H (7.4-10.4) fL Immature Gran % (Auto) 0.6 % Neut % (Auto) 71.5 % Lymph % (Auto) 17.9 % Potter % (Auto) 7.3 % Eos % (Auto) 2.4 % Baso % (Auto) 0.3 % Immature Gran # (Auto) 0.05 H (0.00-0.02) K/uL Neut # (Auto) 5.58 (1.4-6.5) K/uL Lymph # (Auto) 1.40 (1.2-3.4) K/uL Potter # (Auto) 0.57 (0.11-0.59) K/uL Eos # (Auto) 0.19 (0-0.5) K/uL Baso # (Auto) 0.02 (0-0.2) K/uL Sodium 137 (136-145) mmol/L Potassium 3.9 (3.5-5.1) mmol/L Chloride 108 H (98-107) mmol/L Carbon Dioxide 20 L (21-32) mmol/L Anion Gap 9.0 (3-11) BUN 18 (7-18) mg/dl Creatinine 1.48 H (0.6-1.4) mg/dl Est Cr Clr Drug Dosing 50.4 ml/min Est GFR ( Amer) 53.6 Est GFR (Non-Af Amer) 46.3 BUN/Creatinine Ratio 11.8 (10-20) Glucose 192 H (70-99) mg/dl POC Glucose 152 H (70-99) Estimat Average Glucose mg/dl Hemoglobin A1c (4.5-5.6) % Calcium 9.4 (8.5-10.1) mg/dl 05/15/19 05/15/19 05/15/19 Range/Units 20:31 17:24 06:46 WBC (4.8-10.8) K/uL RBC (4.7-6.1) M/uL Hgb (14.0-18.0) g/dL Hct (42-52) % MCV (80-100) fL MCH (25-34) pg MCHC (32-36) g/dL RDW Std Deviation (36.4-46.3) fL RDW Coeff of Gissel (11.5-14.5) % Plt Count (130-400) K/uL MPV (7.4-10.4) fL Immature Gran % (Auto) % Neut % (Auto) % Lymph % (Auto) % Potter % (Auto) % Eos % (Auto) % Baso % (Auto) % Immature Gran # (Auto) (0.00-0.02) K/uL Neut # (Auto) (1.4-6.5) K/uL Lymph # (Auto) (1.2-3.4) K/uL Potter # (Auto) (0.11-0.59) K/uL Eos # (Auto) (0-0.5) K/uL Baso # (Auto) (0-0.2) K/uL Sodium (136-145) mmol/L Potassium (3.5-5.1) mmol/L Chloride (98-107) mmol/L Carbon Dioxide (21-32) mmol/L Anion Gap (3-11) BUN (7-18) mg/dl Creatinine (0.6-1.4) mg/dl Est Cr Clr Drug Dosing ml/min Est GFR ( Amer) Est GFR (Non-Af Amer) BUN/Creatinine Ratio (10-20) Glucose (70-99) mg/dl POC Glucose 184 H 125 H (70-99) Estimat Average Glucose 140 mg/dl Hemoglobin A1c 6.5 H (4.5-5.6) % Calcium (8.5-10.1) mg/dl PG Care Time/CCT Total # of Minutes Spent Total Time Spent with Patient: Total time spent is greater than 50% in coordination of care (as documented) at patient's floor/unit and/or counseling patient: (1) Diabetes mellitus, type 2 Diabetes mellitus complication detail: with polyneuropathy Diabetes mellitus complication status: with neurologic complications 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
[2019-05-16] MEDS: ACETAMINOPHEN 500 MG TAB PO PRN (17:58)
[2019-05-16] MEDS: cefTRIAXone SODIUM 2,000 MG in DEXTROSE 5% 50 ML IV SCH (20:29)
[2019-05-16] MEDS: ERYTHROMYCIN OP OINT 5 MG/GM 3.5 GM TUBE OPB SCH (20:31)
[2019-05-16] MEDS: PRAVASTATIN SOD 40 MG TAB PO SCH (20:33)
[2019-05-17] MEDS: ACETAMINOPHEN 500 MG TAB PO PRN (03:21)
[2019-05-17 05:58] LABS: Basophils # (auto) 0.03 K/uL (0-0.2); Basophils % (auto) 0.6 %; Eosinophils # (auto) 0.12 K/uL (0-0.5); Eosinophils % (auto) 2.5 %; Hematocrit (blood only) 45.1 % (42-52); Hemoglobin 15.2 g/dL (14.0-18.0); Immature Granulocytes # (auto) 0.03 K/uL (0.00-0.02); Immature Granulocytes % (auto) 0.6 %; Lymphocytes # (auto) 0.96 K/uL (1.2-3.4); Lymphocytes % (auto) 19.7 %; Mean Corpuscular Hemoglobin 32.6 pg (25-34); Mean Corpuscular Hgb Conc 33.7 g/dL (32-36); Mean Corpuscular Volume 96.8 fL (80-100); Mean Platelet Volume 10.6 fL (7.4-10.4); Monocytes # (auto) 0.43 K/uL (0.11-0.59); Monocytes % (auto) 8.8 %; Neutrophils % (auto) 67.8 %; Platelet Count 164 K/uL (130-400); RDW Coefficient of Variation 13.3 % (11.5-14.5); RDW Standard Deviation 46.9 fL (36.4-46.3); Red Blood Count 4.66 M/uL (4.7-6.1); White Blood Count 4.87 K/uL (4.8-10.8)
[2019-05-17 06:34] LABS: BUN Creatinine Ratio 14.5 (10-20); Calcium 8.9 mg/dl (8.5-10.1); Creatinine Clr Calc Pharmacy 55.5 ml/min; Est GFR (African American) 60.5; Est GFR (Non-African American) 52.2
[2019-05-17] MEDS: PROPRANOLOL HCL 10 MG TAB PO SCH ×2 (08:04→20:21)
[2019-05-17] MEDS: ISOSORBIDE MONO EXTENDED REL 60 MG TABCR PO SCH (08:05)
[2019-05-17] MEDS: CITALOPRAM 40 MG TAB PO SCH (08:05)
[2019-05-17] MEDS: TOPIRAMATE 100 MG TAB PO SCH ×2 (08:05→20:22)
[2019-05-17] MEDS: INSULIN GLARGINE SOLOSTAR 100 UNITS/ML 3 ML PEN SC SCH (08:06)
[2019-05-17] MEDS: PANTOprazole 40 MG TAB PO SCH (08:06)
[2019-05-17] MEDS: HEPARIN SOD 5,000 UNIT/0.5 ML VIAL SQ SCH ×2 (08:07→20:23)
[2019-05-17] MEDS: MUPIROCIN 2% OINT 22 GM TUBE EXT SCH ×2 (08:08→20:20)
[2019-05-17] MEDS: DICLOFENAC SOD 1% GEL 100 GM TUBE EXT SCH ×4 (08:12→20:25)
[2019-05-17] MEDS: INSULIN ASPART 100 UNITS/ML 3 ML PEN SC SCH ×4 (08:12→20:24)
--- NOTE | 2019-05-17 14:49 | Hospitalist Progress Note ---
Date of Service May 17, 2019 Assessment & Plan (1) Chest pain: - C/O L sided chest pain with radiation to left shoulder/jaw, has been occurring for the last few weeks but increased prior to admission; has chronic anginal symptoms over the last few weeks concerning for cardiac source in setting on known CAD -- Also experiencing CP with deep inspiration/pleuritic pain - Pt. reported a H/O PE in 1988 and DVT in 1989 and 1998; he describes left sided pleuritic pain -- CT PE was negative. - Sinus rhythm on monitor; Trop negative x 2. - Echo showed mild LVH, otherwise negative for acute changes. - Cardiology consulted - planning on cardiac cath on Sunday (2) Cellulitis: - Previous culture +coag neg Staph; on Keflex as outpatient. - Continue Ceftriaxone as inpatient -- LE erythema is now improving, can likely d/c IV abx after 5 day course due to recent Keflex. - Given fluids initially due to IV contrast for CT scan, monitor for increased edema but at this time seems to be improving (3) Headache, migraine: - May be contributing to chest pain and weakness. - Migraines are more prevalent over the last few weeks. - Continue Topamax 100 mg BID; also previously on Triptan - will await cath before adding this medication for PRN use - Head MRI was negative during this admission; F/U with neurology as outpatient for management. (4) Coronary artery disease with hx of myocardial infarct w/o hx of CABG: - Follows with Dr. Mejia; Plan for cardiac cath on SundayMay 19. - Continue ASA 81 mg MWF, Imdur 120 mg daily, Pravastatin 40 mg daily, Propranolol 10 mg BID (for tremor and BP control) (5) Hypertension: - Continue Imdur & Propanolol as prescribed (6) Diabetes mellitus, type 2: - Hgb A1C is 6.5. - BG was +300 at home, now well controlled. - Continue Lantus 20 units daily with SSI coverage. (7) Stage III chronic kidney disease: - Creatinine is at baseline ~1.4-1.5; renally dose all meds - Received IV fluids to avoid contrast induced JUANCARLOS - monitor renal function closely over next 24 hours. Will also need hydration prior to cardiac cath on Sunday. Dispo: Plan for cardiac cath on SundayMay 19 Subjective Reports doing overall well. Still has inspiratory chest pain intermittently. Awaiting heart catheterization on Sunday. Reports his legs are less painful/swollen/red today. Still with intermittent headaches but no neurological symptoms with it. Tolerating diet without issue. Sinus on monitor. Verbalizes no new complaints Review of Systems Constitutional: no fever and no chills Eyes: no diplopia Respiratory: + pain on inspiration; no cough, no dyspnea and no wheezing Cardiovascular: + chest pain, + chest pain at rest, + chest pain with activity, + radiating jaw, neck or arm pain and + edema (improving in b/l lower legs); no palpitations Gastrointestinal: no abdominal pain, no nausea, no vomiting, no constipation and no diarrhea/loose stools Genitourinary: no dysuria Integumentary: no rash Physical Exam Constitutional: WD/WN, vitals as above Eyes: + anicteric sclerae; no conjunctival abnormality ENMT: Ears: no hearing impairment Neck: trachea midline Respiratory: normal respiratory effort, lungs clear to auscultation Cardiovascular: Rate/Rhythm: regular rate and regular rhythm Heart Sounds: no murmur Vessels: no JVD Extremities: + edema (trace) Gastrointestinal (Abdomen): Inspection/Auscultation: normal bowel sounds Percussion/Palpation: abdomen soft; abdomen nontender Musculoskeletal: Head/Neck/Chest: normocephalic and head atraumatic Skin: scattered scabbed lesions on legs; mild chronic sm[place]th of b/l lower extremities Neurologic: Speech / Cognition: normal speech Cranial Nerves: normal hearing Psychiatric: A+Ox3, euthymic affect Results & Data Vital Signs (Past 12 Hours) Vital Signs Temp Pulse Pulse Resp BP Pulse Ox 05/17/19 07:24 70 05/17/19 07:12 36.7 C 67 18 160/90 H 96 05/17/19 03:18 36.6 C 65 15 150/83 H 97 PG Care Time/CCT Total # of Minutes Spent Total Time Spent with Patient: Total time spent is greater than 50% in coordination of care (as documented) at patient's floor/unit and/or counseling patient: (1) Chest pain Chest pain type: unspecified Qualified Code(s): R07.9 - Chest pain, unspecified (2) Headache, migraine Intractability: not intractable Migraine type: unspecified Status migrainosus presence: without status migrainosus Qualified Code(s): G43.909 - Migraine, unspecified, not intractable, without status migrainosus (3) Diabetes mellitus, type 2 Diabetes mellitus alf insulin use: with terminal worker use Diabetes mellitus complication status: with neurologic complications Diabetes mellitus complication detail: with polyneuropathy Qualified Code(s): E11.42 - Type 2 diabetes mellitus with diabetic polyneuropathy; 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
[2019-05-17] MEDS: NITROGLYCERIN SL 0.4 MG/TAB TAB SL PRN (19:12)
[2019-05-17] MEDS: cefTRIAXone SODIUM 2,000 MG in DEXTROSE 5% 50 ML IV SCH (20:17)
[2019-05-17] MEDS: ERYTHROMYCIN OP OINT 5 MG/GM 3.5 GM TUBE OPB SCH (20:19)
[2019-05-17] MEDS: PRAVASTATIN SOD 40 MG TAB PO SCH (20:22)
[2019-05-18] MEDS: ACETAMINOPHEN 500 MG TAB PO PRN (01:00)
[2019-05-18] MEDS ORDERED: CALAMINE/PRAMOXINE LOTION 180 APPLN/180 ML BTL EXT PRN (02:44)
[2019-05-18] MEDS: PROPRANOLOL HCL 10 MG TAB PO SCH ×2 (07:53→20:13)
[2019-05-18] MEDS: CITALOPRAM 40 MG TAB PO SCH (07:53)
[2019-05-18] MEDS: PANTOprazole 40 MG TAB PO SCH (07:53)
[2019-05-18] MEDS: ISOSORBIDE MONO EXTENDED REL 60 MG TABCR PO SCH (07:54)
[2019-05-18] MEDS: TOPIRAMATE 100 MG TAB PO SCH ×2 (07:54→20:13)
[2019-05-18] MEDS: INSULIN GLARGINE SOLOSTAR 100 UNITS/ML 3 ML PEN SC SCH (07:55)
[2019-05-18] MEDS: HEPARIN SOD 5,000 UNIT/0.5 ML VIAL SQ SCH ×2 (07:56→20:13)
[2019-05-18] MEDS: MUPIROCIN 2% OINT 22 GM TUBE EXT SCH ×2 (07:56→20:10)
[2019-05-18] MEDS: INSULIN ASPART 100 UNITS/ML 3 ML PEN SC SCH ×4 (07:57→20:13)
[2019-05-18] MEDS: DICLOFENAC SOD 1% GEL 100 GM TUBE EXT SCH ×4 (07:57→20:10)
--- NOTE | 2019-05-18 12:36 | Cardiology Progress Note ---
Date of Service May 18, 2019 Assessment & Plan (1) Left-sided chest pain: He is describing 2 types of chest discomfort. He has a sharp left-sided stabbing momentary discomfort which sounds pleuritic, this seems to have resolved here in the hospital. That he could demonstrate for me when he first came in and does not sound cardiac. He has another type of chest discomfort which is long-standing, exertional and sounds more cardiac in nature. This is described as a heaviness in his chest which resolves with rest. It occurred with minimal activity several days ago while walking in the hallway suggesting that this may be crescendo angina. I discussed possible catheterization with him. As noted below I do not think I would do a stress test, however catheterization may be reasonable. I have tentatively planned this for May 19. (2) Coronary artery disease with hx of myocardial infarct w/o hx of CABG: He has known coronary artery disease, it did not require intervention or surgery in the past but that was 9 years ago. He now describes exertional chest discomfort which may be crescendo (unstable) and occurred with minimal activity during ambulation in the hallway. We could do a stress test to evaluate it, however his stress test in the past has been abnormal and that may not be helpful as well as potentially being dangerous if this is unstable angina. Since we know he has coronary artery disease I think it would be reasonable to do a cardiac catheterization in the setting of possible unstable angina, but he has not had an infarction (his enzymes are negative). His electrocardiogram suggesting inferior and lateral myocardial infarctions is little unusual for not having a significant wall motion abnormality on echocardiography but it has not changed. (3) Edema of both legs: He has pretibial edema, however it is significantly improved this admission and he has lost weight which is probably from fluid. Right now he has a little edema but not a lot. Subjective He is feeling well, he has had no further chest discomfort of any type. Physical Exam Physical Exam: Constitutional: Alert, cooperative and in no distress. Pulmonary: Clear to auscultation bilaterally. Cardiac: Regular rhythm with no murmur, gallop or rub. Abdomen: Soft, nontender with normal bowel sounds. Extremities: +1 bilateral pretibial edema. Skin: No rash, ecchymoses or petechiae. Results & Data Vital Signs (Past 12 Hours) Vital Signs Temp Pulse Pulse Resp BP Pulse Ox 05/18/19 11:49 36.7 C 80 18 151/93 H 94 05/18/19 07:24 69 05/18/19 07:09 36.5 C 76 18 156/90 H 95 05/18/19 03:11 37 C 71 18 154/89 H 97 Laboratory Results Abnormal lab results 05/17/19 05/17/19 05/18/19 Range/Units 16:08 20:01 07:42 POC Glucose 131 H 157 H 150 H (70-99) 05/18/19 Range/Units 11:34 POC Glucose 175 H (70-99) Diagnostic Findings Telemetry: Sinus rhythm, rate 6070 with PVCs. PG Care Time/CCT Total # of Minutes Spent Total Time Spent with Patient: Total time spent is greater than 50% in coordination of care (as documented) at patient's floor/unit and/or counseling patient:
[2019-05-18] MEDS ORDERED: SODIUM CHLORIDE 0.9% 1000ML 1,000 ML IV SCH (13:00)
--- NOTE | 2019-05-18 13:22 | Hospitalist Progress Note ---
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 - Sinus rhythm on monitor; Trop negative x 2. - Echo showed mild LVH, otherwise negative for acute changes. 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 -Not truly convinced this was an ongoing cellulitis but did improve with IV Rocephin -at the same time, edema on admission is now improved and likely the cause of the mild redness -Intermittently uses topical creams and tea tree oil which seems to help the lesions per his report -Patient also has chronic issues with intermittent pustule-like lesions that rupture and scab over -he reports they prominently affect his face and neck as well as the upper chest and the back --It is hard to say if he is scratching at these lesions or if they are simply rupturing and scabbing/plaquing over -He gives a unique explanation of the cause of his skin condition -reports it is related to chemical exposures from a previous job -However, given the appearance and his other symptoms I am curious about possible autoimmune skin lesions -they seem rather superficial which may support a pemphigus foliaceus but does intermittently describe some irritation in the eyes which may fit with pemphigus vulgaris however this is typically more involved than the superficial skin; no other mucous membranes seem to be affected and no visible issues with the eyes so I do question possible foliaceus? These types of skin eruptions do tend to be idiopathic versus drug- induced which cephalosporins may be contributing to it -given afebrile, no leukocytosis, and resolution of redness of bilateral extremities will hold further Rocephin at this time -Check ESR and CRP in the morning; more specific testing may be best decided upon if referral to rheumatology is warranted which can be obtained as an outpatient -Given his ongoing issues with inflammation, pleuritic pains, etc. an autoimmune component may be contributing? (3) Headache, migraine: - May be contributing to chest pain and weakness. - Migraines are more prevalent over the last few weeks. - Continue Topamax 100 mg BID; also previously on Triptan -given his cardiac history avoidance of triptan's might be the best - Head MRI was negative during this admission; F/U with neurology as outpatient for management. (4) Coronary artery disease with hx of myocardial infarct w/o hx of CABG: - Follows with Dr. Mejia; Plan for cardiac cath on SundayMay 19. - Continue ASA 81 mg MWF, Imdur 120 mg daily, Pravastatin 40 mg daily, Propranolol 10 mg BID (for tremor and BP control) (5) Hypertension: - Continue Imdur & Propanolol as prescribed (6) Diabetes mellitus, type 2: - Hgb A1C is 6.5. - BG was +300 at home, now well controlled. - Continue Lantus 20 units daily with SSI coverage. (7) Stage III chronic kidney disease: - Creatinine is at baseline ~1.4-1.5; renally dose all meds - Received IV fluids to avoid contrast induced JUANCARLOS - monitor renal function closely over next 24 hours. Will also need hydration prior to cardiac cath on Sunday. Dispo: Plan for cardiac cath on SundayMay 19; consider rheumatology referral as outpatient; should have neurology follow-up for better migraine management Subjective Patient reports overall feeling well today. However he notices more eruptions of his chronic skin lesions today. His explanation for these issues are unique but may be better explained by autoimmune conditions. He states he was exposed to chemicals during his job in the past. However given his pleuritic chest pain and what seems to be a pro-inflammatory issue, inflammatory conditions may be a culprit. 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 Patient also notes that his eruptions seem to have worsened overnight. It is uncertain, however question possible autoimmune condition such as pemphigus foliaceus which his lesions can give a similar appearance. It appears these events can be triggered by medication such as cephalosporins. Will check ESR/CRP however for more thorough testing may need a referral to rheumatology. Review of Systems Constitutional: no fever and no chills Eyes: no worsening vision Respiratory: + pain on inspiration; no cough, no dyspnea and no wheezing Cardiovascular: + chest pain (Intermittent -more prevalent is pleuritic pain instead of pressure-like pain) and + edema (improving in b/l lower legs); no palpitations Gastrointestinal: no abdominal pain, no nausea, no vomiting, no constipation and no diarrhea/loose stools Genitourinary: no dysuria Integumentary: + sores Neurologic: + unsteadiness, + falls and + generalized weakness Physical Exam Constitutional: WD/WN, vitals as above Eyes: + anicteric sclerae; no conjunctival abnormality ENMT: Ears: no hearing impairment Neck: trachea midline Respiratory: normal respiratory effort, lungs clear to auscultation Cardiovascular: Rate/Rhythm: regular rate and regular rhythm Heart Sounds: no murmur Vessels: no JVD Extremities: + edema (trace) Gastrointestinal (Abdomen): Inspection/Auscultation: normal bowel sounds Percussion/Palpation: abdomen soft; abdomen nontender Musculoskeletal: Head/Neck/Chest: normocephalic and head atraumatic Neurologic: Speech / Cognition: normal speech Cranial Nerves: normal hearing Psychiatric: A+Ox3, euthymic affect Results & Data Vital Signs (Past 12 Hours) Vital Signs Temp Pulse Pulse Resp BP Pulse Ox 05/18/19 11:49 36.7 C 80 18 151/93 H 94 05/18/19 07:24 69 05/18/19 07:09 36.5 C 76 18 156/90 H 95 05/18/19 03:11 37 C 71 18 154/89 H 97 PG Care Time/CCT Total # of Minutes Spent Total Time Spent with Patient: Total time spent is greater than 50% in coordination of care (as documented) at patient's floor/unit and/or counseling patient: (1) Diabetes mellitus, type 2 Diabetes mellitus complication detail: with polyneuropathy Diabetes mellitus complication status: with neurologic complications Diabetes mellitus 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
[2019-05-18] MEDS: ERYTHROMYCIN OP OINT 5 MG/GM 3.5 GM TUBE OPB SCH (20:12)
[2019-05-18] MEDS: PRAVASTATIN SOD 40 MG TAB PO SCH (20:12)
[2019-05-19] MEDS: SODIUM CHLORIDE 0.9% 1000ML 1,000 ML IV SCH ×2 (00:05→12:49)
[2019-05-19] MEDS ORDERED: Nursing to Pharmacy Communication ONE ×2 (05:05→15:06)
[2019-05-19] MEDS: INSULIN ASPART 100 UNITS/ML 3 ML PEN SC SCH ×2 (05:52→13:41)
[2019-05-19 07:45] LABS: Hematocrit (blood only) 47.4 % (42-52); Hemoglobin 16.3 g/dL (14.0-18.0); Mean Corpuscular Hemoglobin 33.6 pg (25-34); Mean Corpuscular Hgb Conc 34.4 g/dL (32-36); Mean Corpuscular Volume 97.7 fL (80-100); Mean Platelet Volume 10.9 fL (7.4-10.4); Platelet Count 177 K/uL (130-400); RDW Coefficient of Variation 13.2 % (11.5-14.5); RDW Standard Deviation 47.1 fL (36.4-46.3); Red Blood Count 4.85 M/uL (4.7-6.1); White Blood Count 5.37 K/uL (4.8-10.8)
[2019-05-19 08:19] LABS: BUN Creatinine Ratio 17.5 (10-20); C Reactive Protein 0.34 mg/dl (0-0.29); Calcium 9.2 mg/dl (8.5-10.1); Creatinine Clr Calc Pharmacy 51.3 ml/min; Est GFR (African American) 55.4; Est GFR (Non-African American) 47.8; Potassium 3.9 mmol/L (3.5-5.1)
[2019-05-19] MEDS: CITALOPRAM 20 MG TAB PO SCH (09:28)
[2019-05-19] MEDS: ASPIRIN 81 MG CHEW PO SCH (09:28)
[2019-05-19] MEDS: ISOSORBIDE MONO EXTENDED REL 60 MG TABCR PO SCH (09:29)
[2019-05-19] MEDS: PROPRANOLOL HCL 10 MG TAB PO SCH (09:30)
[2019-05-19] MEDS: TOPIRAMATE 100 MG TAB PO SCH (09:31)
[2019-05-19] MEDS: PANTOprazole 40 MG TAB PO SCH (09:31)
[2019-05-19] MEDS: HEPARIN SOD 5,000 UNIT/0.5 ML VIAL SQ SCH (09:35)
[2019-05-19] MEDS ORDERED: NiCARDipine HCL INJ 2.5 MG/ML 10 ML AMP ONE (10:00)
[2019-05-19] MEDS ORDERED: HEPARIN (PORCINE) 1000 UNIT/ML 10 ML (CATH LAB USE ONLY) ONE (10:00)
[2019-05-19] MEDS ORDERED: MIDAZOLAM HCL 1 MG/ML 2ML VIAL ONE (10:01)
[2019-05-19] MEDS ORDERED: fentaNYL citrate 100 MCG/2 ML VIAL ONE (10:01)
[2019-05-19] MEDS ORDERED: NITROGLYCERIN/D5W 100MCG/ML 20ML SYR ONE (10:02)
--- NOTE | 2019-05-19 10:17 | Pre Anesthesia Assessment ---
Date of Service May 19, 2019 Pre Sedation Assessment Vital Signs Temp Pulse Pulse Resp BP Pulse Ox 05/19/19 07:08 36.6 C 73 74 14 150/95 H 96 05/19/19 03:02 36.8 C 70 18 129/80 97 05/19/19 00:00 79 05/18/19 23:22 36.9 C 76 18 129/84 96 05/18/19 19:29 36.8 C 95 H 20 137/81 94 05/18/19 16:31 91 H 05/18/19 15:01 36.8 C 90 18 136/82 95 05/18/19 11:49 36.7 C 80 18 151/93 H 94 Cardiovascular + regular rate Respiratory + respiratory effort normal Pre-Sedation Airway Assessment Smoking Status: Former smoker Hx Sleep Apnea: No Hx Difficult Intubation: No Short, Thick Neck: No Thyromental Distance: > or= 3.5 Finger Breadths Oral Cavity: + WNL Mallampati Class: I ASA: ASA3 NPO Status Date of Last Intake of Fluids: 05/18/19 Time of Last Intake of Fluids: 19:00 Date of Last Intake of Solid Food: 05/18/19 Time of Last Intake of Solid Foods: 19:00 Procedure Planning Contraindications for Sedation: none Current Medications Reviewed: Yes Notes The planned sedation has been discussed with the patient. Informed Consent was obtained. I have identified the patient, determined the appropriateness of sedation and have assessed the patient immediately prior to the procedure. All medicine(s) and interventions are by my order.
[2019-05-19] MEDS: DICLOFENAC SOD 1% GEL 100 GM TUBE EXT SCH ×2 (10:38→13:41)
--- NOTE | 2019-05-19 10:57 | Post Anesthesia Assessment ---
Date of Service May 19, 2019 Post Sedation Assessment Vital Signs Temp Pulse Pulse Resp BP BP Pulse Ox 05/19/19 10:49 36.3 C L 83 20 139/69 97 05/19/19 07:08 36.6 C 73 74 14 150/95 H 96 05/19/19 03:02 36.8 C 70 18 129/80 97 05/19/19 00:00 79 05/18/19 23:22 36.9 C 76 18 129/84 96 05/18/19 19:29 36.8 C 95 H 20 137/81 94 05/18/19 16:31 91 H 05/18/19 15:01 36.8 C 90 18 136/82 95 05/18/19 11:49 36.7 C 80 18 151/93 H 94 Recovery Score Activity: Moves 4 extremities Respiration: Deep Breath/Cough Circulation: +/-20% PreAnes Value Consciousness: Fully Awake Oxygen Saturation: > 92% On Room Air Discharge Sedation Level of Care: Fast Track Phase II Post Sedation Plan On clinical assessment, the patient appears to have tolerated the sedation without complications. Patient is recovering as anticipated. Patient will continue to be monitored by nursing and may be discharged when sedation discharge criteria are met per below protocol. Upon Completions of procedure up to 15 minutes continue every 5 minute vital signs and the P.A.R. score; then discharge to a Phase I or Fast Track to Phase II per the following guidelines: * Discharge Patient to appropriate Phase II area if PAR is 8 or greater or return to pre- procedure baseline. The post - procedure orders will be as directed. * If PAR score is less than 8 or not return to pre-procedure baseline then patient will follow Phase I monitoring till PAR is reached for Phase II. The Phase I may be done in procedure room or may call to secure a Phase I area. * If naloxone or flumazenil are used for reversal, hold in Phase I for continued monitoring from when last reversal dose was given for a minimum of 60 minutes or longer pending the nurse and/or physician discretion of patient condition before discharge to Phase II. Please call the Sedation Physician to re-evaluate and complete post-note for discharge to Phase II area. Do NOT discharge from procedure sedation or Phase 1 until post- sedation evaluation note is complete by procedure /sedation MD Sedation Discharge Instructions to be given to the patient at discharge to home.
--- NOTE | 2019-05-19 10:57 | Post Operative Brief Note ---
Cardiology Brief Post Op Date of Surgery May 19, 2019 Pre & Post Diagnosis Operation Date: 05/19/19 12:00 <No data on this case meets the specified criteria> Procedure LHC, coronaries Manager Mall Wai Gill MD Marking Devices Assembler none Estimated Blood Loss 7 Findings See Below Diffuse disease with significant mid-LAD, diagonal, OM1 and RCA stenosis. Normal LVEDP Complications none Disposition Accompanied Patient To Recovery: No Disposition: PCU Overlapping Procedure I was immediately available: during the entire case.
[2019-05-19] MEDS ORDERED: SODIUM CHLORIDE 0.9% 1000ML 1,000 ML IV SCH (11:00)
[2019-05-19] MEDS: MUPIROCIN 2% OINT 22 GM TUBE EXT SCH (12:27)
[2019-05-19] MEDS: INSULIN GLARGINE SOLOSTAR 100 UNITS/ML 3 ML PEN SC SCH (12:30)
[2019-05-19] MEDS: NITROGLYCERIN SL 0.4 MG/TAB TAB SL PRN (13:50)
--- NOTE | 2019-05-19 15:46 | Discharge Summary ---
Date of Service date of admission - May 14, 2019 date of discharge - May 19, 2019 Admission HPI Per Admitting Provider Mr. Blanchard is a 74 y/o male with PMHx of CAD/AL in 1998, T2DM, HLD, GERD, HTN, CKD III, and Recurrent Skin Infection/Cellulitis who presents to the ED from his PCP for chest pain, headache/blurred vision, and worsening redness of legs. Patient reports he has a H/O complex migraines that have been controlled for many years and followed with Dr. Bañuelos. He has noticed these are becoming more prevalent. He does report a headache that started today with associated blurred vision. The headache is improving but the blurred vision remains but is not worsening. He has his L arm in a cast and has chronic lower extremity orthopedic issues so full neurological assessment is difficult. Does appear to have some weakness of the RLE in comparison to the LLE. Patient reports this is not normal for him and agrees that it feels weaker. He also has had difficulty getting some of his words out but denies abnormal speech. However, during my assessment a few words would come out wrong and his daughter would correct him. He also reports having worsening CP that is similar to his angina but reports this is becoming more prevalent. He states his common angina is a sharp pain in the mid-chest and normally deep inspiration exacerbates this. He states he does not take his NTG typically as it causes such severe headaches for him. Pain is rather atypical and happens randomly regardless of activity. Per a previous note, it appears that it may be related to his complex migraines. In regards to his legs, he has been on Keflex for a suspected cellulitis. He reports his legs have been improving on Keflex but over the past couple days it has been worsening. It appears his legs are more edematous then baseline but does have scabs and mild redness. I discussed with the patient this supports more of a venous insufficiency/fluid issue rather than infection. He does state he does have swelling when he is on his feet and it improves with elevation. 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 He states he was on diuretics in the past but does not take them currently. He is afebrile and without leukocytosis. He also reports multiple falls recently. This seems likely due to his orthopedic issues and reports this is improving with injections and outpatient PT. Reports his knees buckling intermittently and follows with orthopedics. Did sustain a fall approx. 3 weeks ago resulting in L wrist fx. This was treated nonoperatively. Principal Diagnosis chest pain, 2nd to stable angina; s/p cardiac catheterization with triple-vessel CAD discovered Discharge Exam Constitutional well developed, well nourished and average body habitus; no acute distress ENMT external ear and nose normal, oropharynx normal Respiratory normal respiratory effort, lungs clear to auscultation Cardiovascular Rate/Rhythm: regular rate and regular rhythm Heart Sounds: normal S1, normal S2 and + murmur (1/6 LLSB) Vessels: posterior tibial pulses present and dorsalis pedis pulses present; no JVD Extremities: + edema (trace b/l ) Gastrointestinal (Abdomen) normal bowel sounds, soft, nontender, no hepatosplenomegaly Musculoskeletal left arm in splint; cap refill < 2 sec all fingers Skin right wrist - no hematoma; radial pulse 2+; multiple open ulcerations on legs, 1 on face, etc Psychiatric A+Ox3, euthymic affect Discharge Data Allergies Allergy/AdvReac Type Severity Reaction Status Date / Time morphine AdvReac Severe "STOPS MY Verified 05/14/19 13:24 HEART" hydromorphone [From Dilaudid] AdvReac Intermediate unresponsiv Verified 05/14/19 13:24 eness trazodone AdvReac Intermediate GI UPSET Verified 05/14/19 13:24 diazepam AdvReac Mild HALLUCINATE Verified 05/14/19 13:24 S propoxyphene AdvReac Mild DRUG Verified 05/14/19 13:24 INTOLERANCE Consultations cardiology - [facility] (Pastor Gill MD) Procedures Performed Operation Date: 05/19/19 12:00 Actual Procedures p Cath, Left with Cors and Vent - Tyshawn Gill MD s Cineradiography w/Routine Exam - Tyshawn Gill MD Official report pending but prelim report with -- 70% RCA lesion; 70% mid-LAD lesion; 90% OM1 lesion; 70-80% 2nd diagonal. Ordered Studies 1. dopplers b/l legs negative for DVT. 2. CT head negative. 3. MRI brain - negative. 4. CTA chest - IMPRESSION: 1. There is no evidence of pulmonary embolus in the main, lobar, or segmental pulmonary arteries. 2. Cardiomegaly. 3. There is no airspace consolidation or pleural effusion. 4. Cholelithiasis. 5. echocardiogram - * mild LVH * mild MR * grade 1 diastolic dysfunction * EF 50-55% * no wall motion abnormalities Hospital Course (1) Chest pain: Chest pain was felt to be cardiac in nature. Fortunately he did rule out for AL with negative serial troponins. Telemetry was stable while here. 2D echocardiogram showed low-normal EF but otherwise was normal. Underwent elective heart catheterization on 05/19/[address] Wai Gill revealing triple-vessel CAD. CT surgery was contacted at [facility] for consideration of operative intervention of the discovered triple-vessel CAD. Dr Julián Marrero graciously accepted the patient in transfer for ongoing care. (2) Coronary artery disease with hx of myocardial infarct w/o hx of CABG: See "chest pain" above. Had acute AL in 1998 s/p angioplasty at that time. Remains on ASA 81 mg daily, Imdur 120 mg daily, Pravastatin 40 mg daily, Propranolol 10 mg BID (for tremor and BP control). LDL was 89 on lipid profile. (3) Cellulitis: Remains on keflex for chronic issues with intermittent pustule-like lesions that rupture and scab over -he reports they prominently affect his face and neck as well as the upper chest and the back along with legs. 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 He had stable ulcerative/pustule like lesions on his legs while here. (4) Headache, migraine: Continue Topamax 100 mg BID for prophylaxis. He had been having multiple headaches each week leading up to this admission thus had CT head and MRI brain - both negative. (5) Hypertension: Continue Imdur & Propanolol (6) Diabetes mellitus, type 2: Hgb A1C is 6.5. Continue Lantus and novolog (7) Stage III chronic kidney disease: Creatinine is at baseline ~1.4-1.5 Total Time Total Time Spent Total Time Spent (In Minutes): 35 Total Time Includes: Examination of the Patient, Discharge Planning, Medication Reconciliation and Communication With Other Providers Discharge Plan Discharge Items Patient Disposition: Transfer Acute Care Hospital Reason For Visit: CHEST PAIN Discharge Diagnosis: Chest pain due to stable angina. Troponins negative. s/p cardiac catheterization with triple-vessel coronary disease. Activity: Per Instructions section Non-emergency contact: Primary Care Provider, Surgeon and Cloth Printer Call non-emergency contact if: you have any medication questions and your symptoms worsen Follow-up/Referrals: Fox Moran MD [Primary Care Provider] - 05/21/19 2:30 pm (Please, follow up at Dr. Moran's office with his associate, Allison Gonzalez PA-C, on SundayMay 21 at 2:30 pm. *If you need to change this appointment, call the office at [phone].) Diet: Carb Consistent or DM2 and Heart Healthy Addtl Attending Provider Instructions: Post-heart cath instructions: ACTIVITY RECOMMENDATIONS: It is common to feel weak and fatigue for a few days. * Do not drive or operate any motorized equipment for the next three days. * Limit stair usage (2 or 3 trips a day only) for the next three days. * Do not lift anything heavier than 10 pounds for the next three days with the RIGHT arm/hand. * Do not engage in vigorous exercise or any sports for the next five days. * You may shower the day after your procedure, but do not immerse the area for three days. Cleanse the site gently with soap and water. SPECIAL CARE INSTRUCTIONS: * You may replace the pressure dressing or band-aid the morning after the procedure. * After your procedure, it is normal to have a small bruise or small lump at the site. Examine your site daily for any change in the bruise or lump, redness, swelling, drainage or numbness. Notify your doctor if any change. BLEEDING: * If there is a small amount of bleeding at the site, lie down and apply firm pressure with a clean cloth for ten minutes. When the bleeding stops, lie quietly keeping the procedure limb straight for six hours. Notify your doctor as soon as possible. * If the bleeding does not stop after ten minutes or if there is a large amount of bleeding or spurting, call 911 immediately. Continue to lie down and hold firm pressure until help arrives. SKIN IRRITATION: * You may experience some redness and/or swelling in the area where radiation was administered. If any skin irritation occurs, please contact your family physician. Pending Studies at Discharge: No Stand-Alone Forms: My [facility] Skilled Items Patient informed of condition?: Yes DNR: No Discharge Level of Care: Other Communicable Disease: No Discharge Prognosis: Stable Lines: Peripheral IV Urinary Catheter: No Medications and DC Order Prescriptions: Continued isosorbide mononitrate 120 mg tablet extended release 24 hr 120 mg PO QAM Qty: 90 RF: 3 propranolol 10 mg tablet 10 mg PO BID Qty: 180 RF: 2 pantoprazole 40 mg tablet,delayed release (DR/EC) 40 mg PO QAM Qty: 90 RF: 1 mupirocin 2 % ointment 1 appln TOP BID Qty: 22 RF: 0 ranitidine HCl 300 mg tablet 300 mg PO HS Qty: 90 RF: 3 clindamycin phosphate 1 % lotion 1 appln TOP .COMPLEX Qty: 60 RF: 1 (DME) pen needle, diabetic [BD Ultra-Fine Short Pen Needle] 31 gauge x 5/16" needle See Dose Instructions .ROUTE .MEDSUPPLY Qty: 30 RF: 0 cephalexin [Keflex] 500 mg capsule 500 mg PO TID Qty: 90 RF: 0 insulin lispro [Humalog KwikPen Insulin] 100 unit/mL insulin pen 5 - 35 units SUBCUT AC RF: 0 Lantus Solostar U-100 Insulin 100 unit/mL (3 mL) insulin pen 65 units SQ HS Qty: 60 RF: 3 nitroglycerin 0.4 mg tablet, sublingual 0.4 mg SL Q5M PRN (Reason: chest pain) Qty: 1 RF: 0 topiramate [Topamax] 100 mg Tablet 100 mg PO BID RF: 0 citalopram 20 mg tablet 20 mg PO MOWEFR RF: 0 diclofenac sodium [Voltaren] 1 % gel 2 gm TOP QID Qty: 100 RF: 0 citalopram 40 mg tablet 40 mg PO SUTUTHSA RF: 0 pravastatin 40 mg tablet 40 mg PO HS RF: 0 acetaminophen [Tylenol Extra Strength] 500 mg Tablet 1,000 mg PO Q8H PRN (Reason: pain) Qty: 30 RF: 0 erythromycin 5 mg/gram (0.5 %) ointment 1 applic OPB HS RF: 0 Changed aspirin 81 mg tablet,chewable 81 mg PO DAILY Qty: 0 RF: 0 Discharge Orders: Discharge Order (Routine); Ordered 05/19/19 Ordered By: Wil Arreola Admission Data Admit Date/Time: 05/14/19 17:48 Attending Provider: Wil Arreola Admit Provider: Suresh Kimbrough Primary Care Provider: Fox Moran. Other Providers: Chuck Garnett ; Julián Rivera
--- NOTE | 2019-05-19 16:29 | Cardiac Catheterization ---
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 Cardiac Status Clinical evaluation leading to the procedure CAD Presenation: Unstable angina Diagnostic Physicians Name: Wai Gill MD Closure Device Recommendations: CABG Cardiac Cath Procedure Full Procedure Date May 19, 2019 Pre-Procedure Diagnosis Pre-Procedure Diagnosis: Angina AUC Score AUC Score: 7 Post-Procedure Diagnosis Post-Procedure Diagnosis: Severe CAD Procedure(s) Performed Procedure(s) Performed: Coronary Angiography and Left Heart Cath Primary Care Physician Wai Gill MD Timber Supervisor(s) None Estimated Blood Loss Estimated Blood Loss: 7cc Medication(s) Medication(s): Fentanyl, Heparin, Lidocaine 1%, Nicardipine, Nitroglycerin and Versed Summary of Findings Equipment used: 5 Korean Picher 4, 5 Korean JL 3.5 Coronary angiography: Left main: The left main coronary artery was normal in size and caliber. It bifurcated normally into the left anterior descending left circumflex arteries. No significant disease in this vessel Left anterior descending: Left anterior descending was a calcified vessel in its proximal portion. It produced a very small high OM/ramus intermedius branch, another small diagonal branch and a medium sized third diagonal branch. The third diagonal branch had a approximately 90% stenosis at its ostium. There was several additional diminutive diagonal branches prior to the transapical portion of the vessel. There were luminal irregularities throughout the remainder of the vessel. Left circumflex: Left circumflex was a nondominant vessel. It produced a large first OM system with a 80% lesion in its midportion. The ongoing AV groove vessel produced a smaller second OM branch with a long 70% stenosis in its proximal portion. Right coronary artery: The right coronary artery was a dominant vessel. It had luminal irregularities throughout its course. There is a complex stenotic lesion in its midportion prior to the takeoff of the PDA and PL branches. This lesion had a semi-acute appearance and in some views appear to compromise lumen approximately 70%. The ongoing PDA and PL branches had nonobstructive disease. Hemodynamics Rest Ao:: 89/51 mmHg Final Ao: 111/65 mmHg LV: 106/2 mmHg with left ventricular end-diastolic pressure of 7 mmHg Recommendations Recommendations: CABG Radiation Exposure (mGy) q Contrast (mls) 60 cc Procedural Complication(s) None Disposition PCU I attest to the content of the Intraoperative Record and any orders documented therein. Any exceptions are noted below. [facility] Card Cath Procedure Codes Cardiac Catheterization Procedure 1: Cardiovascular Cath Procedures: 41780 Coronaries and LHC (+/-LV) PG Care Time/CCT Total # of Minutes Spent Total Time Spent with Patient: Total time spent is greater than 50% in coordination of care (as documented) at patient's floor/unit and/or counseling patient:
[2019-05-19] MEDS ORDERED: INSULIN ASPART 100 UNITS/ML 3 ML PEN SC SCH (16:30)
[2019-05-21 09:30] LABS: RMSF IgG Ab Not Detected; RMSF IgM Ab Not Detected
== END 2019-05-19 16:32 | disposition short-term general hospital (02) | DRG 287 ==
LOC: ED 12:12 → 2E 17:48 → SUATTDRO 17:48 → 2E 18:30 → 2N 05-16 13:26 → 1E 05-19 11:52

== ENCOUNTER 2019-06-05 10:28 | Inpatient (IN) ==
[2019-06-05 11:37] LABS: Basophils # (auto) 0.01 K/uL (0-0.2); Basophils % (auto) 0.2 %; Eosinophils # (auto) 0.24 K/uL (0-0.5); Eosinophils % (auto) 3.6 %; Hematocrit (blood only) 32.8 % (42-52); Hemoglobin 10.8 g/dL (14.0-18.0); Immature Granulocytes % (auto) 1.5 %; Lymphocytes # (auto) 0.26 K/uL (1.2-3.4); Lymphocytes % (auto) 3.9 %; Mean Corpuscular Hemoglobin 32.3 pg (25-34); Mean Corpuscular Hgb Conc 32.9 g/dL (32-36); Mean Corpuscular Volume 98.2 fL (80-100); Mean Platelet Volume 9.3 fL (7.4-10.4); Monocytes # (auto) 0.54 K/uL (0.11-0.59); Monocytes % (auto) 8.1 %; Neutrophils # (auto) 5.51 K/uL (1.4-6.5); Neutrophils % (auto) 82.7 %; Platelet Count 266 K/uL (130-400); RDW Coefficient of Variation 14.4 % (11.5-14.5); RDW Standard Deviation 50.9 fL (36.4-46.3); Red Blood Count 3.34 M/uL (4.7-6.1); White Blood Count 6.66 K/uL (4.8-10.8)
--- NOTE | 2019-06-05 11:42 | XRay Report ---
XR chest 1V portable HISTORY: 74 years-old Male SOB acute shortness of breath COMPARISON: Chest radiograph 05/30/2019 TECHNIQUE: Portable AP view of the chest FINDINGS: Cardiac silhouette is enlarged, unchanged. Prior median sternotomy with findings suggestive of CABG. Small left pleural effusion with persistent ill-defined left lung base airspace opacities, slightly i mproved from comparison. No pneumothorax or overt pulmonary edema. The right lung is clear. Degenerat cristopher changes of the shoulders and spine. IMPRESSION: 1. Cardiomegaly without overt pulmonary edema. 2. Small left pleural effusion with persistent left lung base opacities, slightly improved from og rison. Findings are suggestive of atelectasis or pneumonia. ACT 112: Negative or not required by law. The above report was generated using voice recognition software. It may contain grammatical, syntax o r spelling errors. Electronically signed by: Adria Pan M.D. 06/05/2019 11:41 AM
[2019-06-05 11:50] LABS: INR 1.1 (0.9-1.1); Partial Thromboplastin Time 27.6 Seconds (21.0-31.0); Prothrombin Time 11.4 Seconds (9.0-12.0)
[2019-06-05 11:54] LABS: Albumin Level 3.2 gm/dl (3.4-5.0); BUN Creatinine Ratio 17.1 (10-20); Creatinine Clr Calc Pharmacy 44.3 ml/min; Est GFR (Non-African American) 39.7; Magnesium 2.3 mg/dl (1.8-2.4); Potassium 4.6 mmol/L (3.5-5.1)
[2019-06-05 11:59] LABS: Albumin Globulin Ratio 0.9 (0.9-2); Bilirubin,Total 0.5 mg/dl (0.2-1); Globulin 3.7 gm/dl (2.5-4.0); Total Protein 6.9 gm/dl (6.4-8.2); Troponin I 0.017 ng/ml (0-0.045)
--- NOTE | 2019-06-05 13:15 | Ultrasound Report ---
BILATERAL LOWER EXTREMITY VENOUS DOPPLER HISTORY: Acute pain and swelling of the bilateral lower extremities swelling COMPARISON STUDY: Doppler study 05/30/2019 FINDINGS: There is normal compressibility, flow, and augmentation within the bilateral lower extremit y deep venous systems. Superficial venous thrombosis of the left greater saphenous vein is redemonstr ated extending within 1.0 cm to the saphenofemoral junction. The superficial venous thrombosis is yessi g segment and occlusive extending for a length of greater than 5 cm within the thigh. Mild subcutaneo us edema of the lower extremities, left greater than right. IMPRESSION: 1. No sonographic evidence of deep venous thrombosis. 2. Long segment occlusive superficial venous thrombosis of the left greater saphenous vein appears un changed. ACT 112: Negative or not required by law. Electronically signed by: Adria Pan M.D. 06/05/2019 1:14 PM
[2019-06-05] MEDS ORDERED: FUROSEMIDE 40 MG/4 ML VIAL IV STA (14:09)
--- NOTE | 2019-06-05 14:36 | Emergency Department Note ---
Entered by Wyatt Liao acting as a scribe for History of Present Illness General Chief complaint: Cough Stated complaint: SWELLING, OBTAINING FLUID, REF BY Time Seen by Provider: 06/05/19 11:11 Source: patient History of Present Illness Provider complaint: Cough Onset (ago): day(s) (Couple of days) Location: chest Pain Consistency: + constant Maximum Pain Intensity: 8 Current Pain Intensity: 8 Relieved By: + none Associated symptoms: + chest pain and + shortness of breath The patient is a 74 year old male who presents to the Emergency Room with complaints of a constant productive cough that started a couple of days ago. The patient states he has been coughing up a yellow colored mucous. He adds that he has been short of breath as well. With the cough and breathing difficulty, he has some pleuritic chest pain that he rates an 8/10. The patient reports that he had a quadruple bypass done on 05/23 in [place] and was hospitalized for a week. The patient notes that he was seen by his PCP today and was sent here for bloody rhinorrhea, however the nursing note states that the PCP is concerned for fluid overload. The patient states that he is on a water pill. Per the patient's , for the past couple of days the patient has been having trouble remembering things such as people's names. He also has had intermittent speech impairments. Additionally, the patient is on antibiotics for a recent cellulitis of the left distal leg. The patient also has a cast on his left forearm from a recent fall. The patient adds that he has a post-op follow up appointment tomorrow in [place]. The patient has no history of DVT but has had two strokes. Home Medications Home Medications Medication Instructions Recorded Confirmed Type diclofenac sodium [Voltaren] 2 gm TOP QID #100 gm 10/20/18 06/05/19 Rx pen needle, diabetic 31 gauge x #30 ea 12/03/18 06/04/19 Rx /16" aspirin 81 mg chewable tablet 81 mg PO Q OTHER DAY 02/05/19 06/05/19 History citalopram 20 mg tablet 20 mg PO MOWEFR tab 02/05/19 06/05/19 History nitroglycerin 0.4 mg sublingual 0.4 mg SL Q5M PRN #1 tab 02/05/19 06/05/19 History tablet citalopram [Celexa] 40 mg PO SUTUTHSA 04/21/19 06/05/19 History ranitidine HCl 300 mg tablet 300 mg PO HS #90 tab 05/12/19 06/05/19 Rx furosemide 20 mg tablet 20 mg PO BID #30 tab 05/30/19 06/05/19 Rx melatonin 5 mg PO HS PRN 05/30/19 06/05/19 History metoprolol tartrate 75 mg tablet 75 mg PO BID #60 tab 05/30/19 06/05/19 Rx acetaminophen [Tylenol Extra 1,000 mg PO Q8H PRN 06/05/19 06/05/19 History Strength] atorvastatin [Lipitor] 80 mg PO QAM 06/05/19 06/05/19 History insulin glargine 100 unit/mL (3 40 - 65 units SQ HS ml MDD 65 06/05/19 06/05/19 History mL) subcutaneous pen units insulin lispro 100) 100 unit/mL 20 - 40 units SUBCUT AC ml 06/05/19 06/05/19 History subcutaneous pen isosorbide mononitrate 120 mg PO DAILY 06/05/19 06/05/19 History mupirocin [Centany] 1 appln TOP BID 06/05/19 06/05/19 History pantoprazole [Protonix] 40 mg PO QAM 06/05/19 06/05/19 History polyethylene glycol 3350 [Miralax] 17 gm PO QAM 06/05/19 06/05/19 History potassium chloride [K-Tab] 20 meq PO QAM 06/05/19 06/05/19 History sennosides-docusate sodium [Senna 1 tab PO QAM 06/05/19 06/05/19 History with Docusate Sodium] topiramate [Topamax] 100 mg PO BID 06/05/19 06/05/19 History tramadol [Ultram] 50 mg PO Q6H PRN 06/05/19 06/05/19 History Allergies Allergy/AdvReac Type Severity Reaction Status Date / Time morphine AdvReac Severe "STOPS MY Verified 06/05/19 12:16 HEART" hydromorphone [From Dilaudid] AdvReac Intermediate unresponsiv Verified 06/05/19 12:16 eness trazodone AdvReac Intermediate GI UPSET Verified 06/05/19 12:16 diazepam AdvReac Mild HALLUCINATE Verified 06/05/19 12:16 S propoxyphene AdvReac Mild DRUG Verified 06/05/19 12:16 INTOLERANCE Past Med/Surg History Medical History Atypical chest pain (Resolved) Benign colonic polyp (Chronic) CAD in [place] artery (Chronic) Cellulitis Chronic kidney disease (CKD) (Acute) Cognitive disorder (Chronic) Controlled type 2 diabetes mellitus with neurologic complication, with long-term current use of insulin (Resolved) Conversion disorder (Resolved) Diabetes mellitus, type 2 Diabetic peripheral neuropathy (Chronic) Dyslipidemia (Resolved) Esophageal reflux (Chronic) History of colon polyps (Chronic) History of tobacco use (Resolved) Hyperlipidemia (Chronic) Hypertension (Chronic) Kidney stone on right side (Resolved) Migraines, neuralgic (Chronic) Myocardial Infarction (Resolved) 2004--follows with Dr. Mejia Nephrolithiasis (Resolved) Neurological deficit present (Resolved) Neuropathy (Chronic) Osteoarthritis (Chronic) Raynauds phenomenon (Chronic) Stage III chronic kidney disease Tubular adenoma of colon (Resolved) Vitamin D deficiency (Chronic) Wound of left foot (Resolved) Surgical History History of arthroscopy of left knee (Resolved) History of cardiac cath (Resolved) x3-4, last 2014 History of carpal tunnel release of both wrists (Resolved) History of colonoscopy (Resolved) History of heart artery stent (Resolved) x1--1998 History of lithotripsy (Resolved) x2 History of lumbar discectomy (Resolved) x2 History of open reduction and internal fixation (ORIF) procedure (Resolved) left ankle--hardware in place History of right cataract extraction (Resolved) History of tonsillectomy and adenoidectomy (Resolved) Status post uvulopalatopharyngoplasty (Resolved) Family History Father Family history of diabetes mellitus Family hx of colon cancer Other No family history of adverse response to anesthesia Social History Preferred Language: Chinese Communication Ability: Effective Histology Technologist Required: No Beliefs That Will Affect Care: None marital status: Current Living Situation: Spouse Feels Safe at Home: Yes Smoking Status: Former smoker Second Hand Exposure: No ; Hx Alcohol Use: No Hx Substance Use: No Review of Systems See HPI for pertinent positives & negatives. and A total of 10 systems reviewed and were otherwise negative Physical Exam Vital Signs Vital Signs - 24 hr 06/05/19 10:39 06/05/19 11:00 06/05/19 11:46 Temperature 36.7 C Temperature Source Oral Pulse Rate 78 72 Pulse Rate [Apical] 78 Pulse Rate from SpO2 Sensor Pulse Rhythm Regular Pulse Rhythm [Apical] Regular Pulse Strength [Apical] Normal Respiratory Rate 16 18 18 Respiratory Effort / Characteristics Non-Labored Spontaneous Respiratory Depth Normal Respiratory Pattern Regular Blood Pressure 100/61 Blood Pressure [Left Arm] 105/56 L Blood Pressure Mean 74 Blood Pressure Mean [Left Arm] 72 Blood Pressure Position [Left Arm] Lying Pulse Oximetry 99 99 99 Oxygen Delivery Method Room Air Room Air Room Air Sepsis Recent Fever Within 48 Hours No Sepsis New/Unexplained Change in Mental Status No Sepsis Action Taken by Nursing No Action Required 06/05/19 12:56 06/05/19 12:57 06/05/19 12:58 Temperature Temperature Source Pulse Rate 71 71 Pulse Rate [Apical] 71 Pulse Rate from SpO2 Sensor 71 72 Pulse Rhythm Pulse Rhythm [Apical] Regular Pulse Strength [Apical] Normal Respiratory Rate 22 18 18 Respiratory Effort / Characteristics Non-Labored Spontaneous Respiratory Depth Normal Respiratory Pattern Regular Blood Pressure 107/62 Blood Pressure [Left Arm] 107/62 Blood Pressure Mean 71 Blood Pressure Mean [Left Arm] 77 Blood Pressure Position [Left Arm] Lying Pulse Oximetry 97 98 97 Oxygen Delivery Method Room Air Sepsis Recent Fever Within 48 Hours Sepsis New/Unexplained Change in Mental Status Sepsis Action Taken by Nursing 06/05/19 13:00 06/05/19 13:01 06/05/19 13:15 Temperature Temperature Source Pulse Rate 72 73 73 Pulse Rate [Apical] Pulse Rate from SpO2 Sensor 72 73 73 Pulse Rhythm Pulse Rhythm [Apical] Pulse Strength [Apical] Respiratory Rate 23 19 19 Respiratory Effort / Characteristics Respiratory Depth Respiratory Pattern Blood Pressure 100/60 Blood Pressure [Left Arm] Blood Pressure Mean 77 Blood Pressure Mean [Left Arm] Blood Pressure Position [Left Arm] Pulse Oximetry 95 96 96 Oxygen Delivery Method Sepsis Recent Fever Within 48 Hours Sepsis New/Unexplained Change in Mental Status Sepsis Action Taken by Nursing 06/05/19 13:30 06/05/19 13:31 06/05/19 13:45 Temperature Temperature Source Pulse Rate 74 74 77 Pulse Rate [Apical] Pulse Rate from SpO2 Sensor 74 74 76 Pulse Rhythm Pulse Rhythm [Apical] Pulse Strength [Apical] Respiratory Rate 22 18 19 Respiratory Effort / Characteristics Respiratory Depth Respiratory Pattern Blood Pressure 113/64 Blood Pressure [Left Arm] Blood Pressure Mean 78 Blood Pressure Mean [Left Arm] Blood Pressure Position [Left Arm] Pulse Oximetry 98 97 99 Oxygen Delivery Method Sepsis Recent Fever Within 48 Hours Sepsis New/Unexplained Change in Mental Status Sepsis Action Taken by Nursing 06/05/19 14:00 06/05/19 14:01 06/05/19 14:15 Temperature Temperature Source Pulse Rate 73 74 73 Pulse Rate [Apical] Pulse Rate from SpO2 Sensor 72 74 73 Pulse Rhythm Pulse Rhythm [Apical] Pulse Strength [Apical] Respiratory Rate 19 18 19 Respiratory Effort / Characteristics Respiratory Depth Respiratory Pattern Blood Pressure 99/59 L Blood Pressure [Left Arm] Blood Pressure Mean 73 Blood Pressure Mean [Left Arm] Blood Pressure Position [Left Arm] Pulse Oximetry 100 98 99 Oxygen Delivery Method Sepsis Recent Fever Within 48 Hours Sepsis New/Unexplained Change in Mental Status Sepsis Action Taken by Nursing 06/05/19 14:17 06/05/19 14:30 Temperature Temperature Source Pulse Rate 74 Pulse Rate [Apical] Pulse Rate from SpO2 Sensor 75 78 Pulse Rhythm Pulse Rhythm [Apical] Pulse Strength [Apical] Respiratory Rate 20 20 Respiratory Effort / Characteristics Respiratory Depth Respiratory Pattern Blood Pressure 96/58 L Blood Pressure [Left Arm] Blood Pressure Mean 66 Blood Pressure Mean [Left Arm] Blood Pressure Position [Left Arm] Pulse Oximetry 99 95 Oxygen Delivery Method Sepsis Recent Fever Within 48 Hours Sepsis New/Unexplained Change in Mental Status Sepsis Action Taken by Nursing GENERAL: Patient is in no acute distress. HEENT: No acute trauma, normocephalic atraumatic, mucous membranes moist, no n valerio congestion, no scleral icterus. NECK: No stridor, no adenopathy, no meningismus, trachea is midline. LUNGS: Clear to auscultation bilaterally, no wheeze, no rhonchi, breath sounds equal. HEART: Without murmurs gallops or rubs, regular rate and rhythm. ABDOMEN: Soft, nontender, bowel sounds positive, no hernias, no peritonitis. EXTREMITIES: Moderate edema to the bilateral lower extremities. Subtle erythema to the left lower extremity near the ankle. Healing surgical wounds to the left leg consistent with recent bypass surgery. Bruising to the left leg noted. Cast noted on left wrist. NEUROLOGIC: Oriented x 3, no acute motor or sensory deficits, no focal weakness. SKIN: No rash, no jaundice, no diaphoresis. Course Course 1112: Past medical records reviewed. The patient was evaluated in room A11B, and a complete history and physical examination were performed. 1355: I spoke to Dr. Nicole Frost Cardiology about the patient's case. He stated the patient can either get a dose of diuretic here and follow up tomorrow or he can be admitted and receive the diuretic overnight. 1358: I reevaluated the patient and updated him on results. We also discussed the treatment plan and he would like to stay. 1408: I spoke to Dr. Tamir Frost [facility] Hospitalist about the patient's case and she agreed to accept the patient for further evaluation. Consultations Consultation #1: I spoke to Dr. Nicole Manrique about the patient's case. He stated the patient can either get a dose of diuretic here and follow up tomorrow or he can be admitted and receive the diuretic overnight. Time: 13:55 Consultation #2: I spoke to Dr. Tamir Frost [facility] Hospitalist about the patient's c ase and she agreed to accept the patient for further evaluation. Time: 14:08 Administered Medications Discontinued Medications Furosemide (Lasix) 40 mg IV NOW STA Stop: 06/05/19 14:10 Last Admin: 06/05/19 14:16 Dose: 40 mg Documented by: [id number] Medical Decision Making Differential Diagnosis Differential Diagnosis includes: CHF, fluid build up, pulmonary edema, DVT, pneumonia, bronchitis, anemia, and electrolyte imbalance, amongst others. Medical Records Attestation: I reviewed the patient's medical records. Home Medications Current Medication List: was personally reviewed by me Laboratory Data Attestation: I reviewed the patient's lab results. Result diagrams: 06/05/19 11:24 06/05/19 11:24 Lab Results 06/05/19 06/05/19 06/05/19 Range/Units 11:24 11:24 11:24 WBC 6.66 (4.8-10.8) K/uL RBC 3.34 L (4.7-6.1) M/uL Hgb 10.8 L (14.0-18.0) g/dL Hct 32.8 L (42-52) % MCV 98.2 (80-100) fL MCH 32.3 (25-34) pg MCHC 32.9 (32-36) g/dL RDW Std Deviation 50.9 H (36.4-46.3) fL RDW Coeff of Gissel 14.4 (11.5-14.5) % Plt Count 266 (130-400) K/uL MPV 9.3 (7.4-10.4) fL Immature Gran % (Auto) 1.5 % Neut % (Auto) 82.7 % Lymph % (Auto) 3.9 % Leslie % (Auto) 8.1 % Eos % (Auto) 3.6 % Baso % (Auto) 0.2 % Immature Gran # (Auto) 0.10 H (0.00-0.02) K/uL Neut # (Auto) 5.51 (1.4-6.5) K/uL Lymph # (Auto) 0.26 L (1.2-3.4) K/uL Leslie # (Auto) 0.54 (0.11-0.59) K/uL Eos # (Auto) 0.24 (0-0.5) K/uL Baso # (Auto) 0.01 (0-0.2) K/uL PT 11.4 (9.0-12.0) Seconds INR 1.1 (0.9-1.1) APTT 27.6 (21.0-31.0) Seconds PTT Ratio 1.0 Sodium 137 (136-145) mmol/L Potassium 4.6 (3.5-5.1) mmol/L Chloride 109 H (98-107) mmol/L Carbon Dioxide 21 (21-32) mmol/L Anion Gap 7.0 (3-11) BUN 29 H (7-18) mg/dl Creatinine 1.68 H (0.6-1.4) mg/dl Est Cr Clr Drug Dosing 44.3 ml/min Est GFR ( Amer) 46.0 Est GFR (Non-Af Amer) 39.7 BUN/Creatinine Ratio 17.1 (10-20) Glucose 121 H (70-99) mg/dl Calcium 9.0 (8.5-10.1) mg/dl Magnesium 2.3 (1.8-2.4) mg/dl Total Bilirubin 0.5 (0.2-1) mg/dl AST 24 (15-37) U/L ALT 38 (12-78) U/L Alkaline Phosphatase 139 H (45-117) U/L Troponin I 0.017 (0-0.045) ng/ml NT-Pro-B Natriuret Pep 1741 H (0-900) pg/ml Total Protein 6.9 (6.4-8.2) gm/dl Albumin 3.2 L (3.4-5.0) gm/dl Globulin 3.7 (2.5-4.0) gm/dl Albumin/Globulin Ratio 0.9 (0.9-2) Imaging Data Radiologist's Impression: Radiology results as stated below per my review and the radiologist's interpretation: XR chest 1V portable HISTORY: 74 years-old Male SOB acute shortness of breath COMPARISON: Chest radiograph 05/30/2019 TECHNIQUE: Portable AP view of the chest FINDINGS: Cardiac silhouette is enlarged, unchanged. Prior median sternotomy with findings suggestive of CABG. Small left pleural effusion with persistent ill-defined left lung base airspace opacities, slightly improved from comparison. No pneumothorax or overt pulmonary edema. The right lung is clear. Degenerative changes of the shoulders and spine. IMPRESSION: 1. Cardiomegaly without overt pulmonary edema. 2. Small left pleural effusion with persistent left lung base opacities, slightly improved from comparison. Findings are suggestive of atelectasis or pneumonia. ACT 112: Negative or not required by law. The above report was generated using voice recognition software. It may contain grammatical, syntax or spelling errors. Electronically signed by: Adria Pan M.D. 06/05/2019 11:41 AM BILATERAL LOWER EXTREMITY VENOUS DOPPLER HISTORY: Acute pain and swelling of the bilateral lower extremities swelling COMPARISON STUDY: Doppler study 05/30/2019 FINDINGS: There is normal compressibility, flow, and augmentation within the bilateral lower extremity deep venous systems. Superficial venous thrombosis of the left greater saphenous vein is redemonstrated extending within 1.0 cm to the saphenofemoral junction. The superficial venous thrombosis is long segment and occlusive extending for a length of greater than 5 cm within the thigh. Mild subcutaneous edema of the lower extremities, left greater than right. IMPRESSION: 1. No sonographic evidence of deep venous thrombosis. 2. Long segment occlusive superficial venous thrombosis of the left greater saphenous vein appears unchanged. ACT 112: Negative or not required by law. Electronically signed by: Adria Pan M.D. 06/05/2019 1:14 PM ECG Data Attestation: I personally reviewed and interpreted this ECG as follows: Indication: + SOB/dyspnea Rate (beats per minute): 72 Rhythm: + normal sinus ECG Intervals/blocks: + Normal QT-c (462) ECG ST segments: no ST elevation ECG Findings: + Other (Old inferior infarct); no PVCs Blood Pressure Blood Pressure Findings: Low blood pressure Blood Pressure Disposition: further management by hospitalist MDM Narrative There is no leukocytosis. The patient is somewhat anemic, he has been anemic lately. No significant electrolyte abnormality. There is some renal insufficiency but this appears baseline looking back at previous testing. No coagulopathy. No worrisome liver enzyme elevation. EKG shows a sinus rhythm, no acute ischemia. Cardiac enzyme testing x1 does not show any evidence for acute cardiac injury. BNP is elevated consistent with fluid overload. Chest film does not show pneumonia or concerning CHF. Bilateral lower extremity ultrasound does not show any evidence for acute DVT, a left saphenous vein clot was seen which was felt stable. The patient was given IV Lasix 40 mg. I spoke to the patient, I did speak with the patient's cardiology service. The patient is going to be hospitalized for diuresis. His BNP is higher than it was the last time he was here, he is more fluid overloaded, he is coughing and short of breath. He just had CABG surgery x4 about 2 weeks ago. I did speak to the patient at length, I spoke with case management. The on-call hospitalist was consulted. Impression & Plan SOB (shortness of breath), Cough, Fluid overload, Pedal edema, Status post coronary artery bypass graft Discharge Plan Visit Data Chief Complaint: Cough Stated Complaint: SWELLING, OBTAINING FLUID, REF BY DR ISSA Provider: Jonny El Discharge Problem: SOB (shortness of breath), Cough, Fluid overload, Pedal edema, Status post coronary artery bypass graft Patient Disposition: Being Evaluated by Hospitalist Forms Stand Alone Forms: My [facility] Communication Science Prescriptions Prescriptions: No Action ranitidine HCl 300 mg tablet 300 mg PO HS Qty: 90 RF: 3 insulin lispro [Humalog KwikPen Insulin] 100 unit/mL insulin pen 20 - 40 units SUBCUT AC RF: 0 Lanminda Solitarioostar U-100 Insulin 100 unit/mL (3 mL) insulin pen 40 - 65 units SQ HS MDD 65 units RF: 0 metoprolol tartrate 75 mg tablet 75 mg PO BID Qty: 60 RF: 2 furosemide [Lasix] 20 mg tablet 20 mg PO BID Qty: 30 RF: 2 (DME) pen needle, diabetic [BD Ultra-Fine Short Pen Needle] 31 gauge x 5/16" needle See Dose Instructions .ROUTE .MEDSUPPLY Qty: 30 RF: 0 nitroglycerin [Nitrostat] 0.4 mg tablet, sublingual 0.4 mg SL Q5M PRN (Reason: Chest Pain) Qty: 1 RF: 0 aspirin 81 mg tablet,chewable 81 mg PO Q OTHER DAY RF: 0 citalopram [Celexa] 20 mg tablet 20 mg PO MOWEFR RF: 0 diclofenac sodium [Voltaren] 1 % gel 2 gm TOP QID Qty: 100 RF: 0 melatonin 5 mg capsule 5 mg PO HS PRN (Reason: Insomnia) RF: 0 citalopram [Celexa] 40 mg tablet 40 mg PO SUTUTHSA RF: 0 atorvastatin [Lipitor] 80 mg tablet 80 mg PO QAM RF: 0 sennosides-docusate sodium [Senna with Docusate Sodium] 8.6-50 mg tablet 1 tab PO QAM RF: 0 tramadol [Ultram] 50 mg tablet 50 mg PO Q6H PRN (Reason: pain) RF: 0 acetaminophen [Tylenol Extra Strength] 500 mg tablet 1,000 mg PO Q8H PRN (Reason: Pain) RF: 0 pantoprazole [Protonix] 40 mg tablet,delayed release (DR/EC) 40 mg PO QAM RF: 0 mupirocin [Centany] 2 % ointment 1 appln TOP BID RF: 0 polyethylene glycol 3350 [Miralax] 17 gram/dose powder 17 gm PO QAM RF: 0 topiramate [Topamax] 100 mg tablet 100 mg PO BID RF: 0 potassium chloride [K-Tab] 20 mEq tablet extended release 20 meq PO QAM RF: 0 isosorbide mononitrate 120 mg tablet extended release 24 hr 120 mg PO DAILY RF: 0 Referrals Referrals: Fox Moran MD [Primary Care Provider] - Discharge Problem: Fluid overload Qualifiers: Hypervolemia type: unspecified Qualified Code(s): E87.70 - Fluid overload, unspecified The scribe's documentation has been prepared under my direction and personally reviewed by me in its entirety. I confirm that the note above accurately reflects all work, treatment, procedures, and medical decision making performed by me.
[2019-06-05] MEDS ORDERED: POLYETHYLENE (MIRALAX) 17 GM PACK PO PRN (16:57)
[2019-06-05] MEDS ORDERED: MAGNESIUM HYDROXIDE SUSP 30 ML UDC PO PRN (16:57)
[2019-06-05] MEDS ORDERED: GLUCOSE 10 TABS/TUBE PO PRN (16:57)
[2019-06-05] MEDS ORDERED: NON-FORMULARY MEDICATION (Melatonin 5 MG) PO PRN (16:57)
[2019-06-05] MEDS ORDERED: NITROGLYCERIN SL 0.4 MG/TAB TAB SL PRN (16:57)
[2019-06-05] MEDS ORDERED: GLUCOSE 40% GEL 15 GM TUBE PO PRN (16:57)
[2019-06-05] MEDS ORDERED: GLUCAGON FOR INJ 1 MG VIAL SQ PRN (16:57)
[2019-06-05] MEDS ORDERED: TRAMADOL HCL 50 MG TABLET PO PRN (16:57)
[2019-06-05] MEDS ORDERED: CARBOHYDRATES FOR HYPOGLYCEMIA PO PRN (16:57)
[2019-06-05] MEDS ORDERED: ALUMINUM/MAGNESIUM SUSP 30 ML UDC PO PRN (16:57)
[2019-06-05] MEDS ORDERED: DEXTROSE 50% 50 ML SYRINGE IV PRN (16:57)
[2019-06-05] MEDS ORDERED: ACETAMINOPHEN 325 MG TAB PO PRN (16:57)
[2019-06-05] MEDS ORDERED: ONDANSETRON INJ 2 MG/ML 2 ML VIAL IV PRN (16:57)
[2019-06-05] MEDS ORDERED: PHARMACY GLYCEMIC MGMT CONSULT PRN (17:23)
--- NOTE | 2019-06-05 18:03 | History & Physical Report ---
Date of Service June 05, 2019 Assessment & Plan (1) Acute congestive heart failure: Admit to PCU on telemetry Vital signs every 4 hours Daily weight, strict in and out Low-sodium diet, free p.o. fluid restriction to 1200 mils daily Furosemide 20 mg IV twice daily Replenish electrolytes PRN DVT prophylaxis Heparin 5000 units every 12 hours Patient is a full code (2) Pneumonia: Empirically started ceftriaxone 2 g IV daily and doxycycline 100 mg IVtwice daily to cover for possible pneumonia. Procalcitonin pending. If procalcitonin normal would discontinue antibiotics. Sputum culture pending. Present on Admission?: Yes (3) Status post coronary artery bypass graft: Continue observing. Inform [facility] that patient is hospitalized and cannot attend the appointment tomorrow. No issues at this time. Present on Admission?: Yes (4) Distal radius fracture, left: Continue sling . No issues to address at this time. Follow-up with his Ortho. Present on Admission?: Yes (5) Chronic kidney disease (CKD): Avoid nephrotoxic agents. Monitor closely creatinine and GFR. Pantoprazole on hold due to possible nephrotoxicity Present on Admission?: Yes (6) Diabetes mellitus: Glycemic control per pharmacy. Accu-Cheks before meals and at bedtime. Give only two thirds of home dose of insulin since patient is in the hospital and prone to hypoglycemia. Present on Admission?: Yes (7) GERD (gastroesophageal reflux disease): Famotidine 20 mg IV daily. Present on Admission?: Yes (8) Hyperlipidemia: Continue home dose of atorvastatin 80 mg p.o. every morning. Lipid panel pending. Present on Admission?: Yes (9) Hypertension: Blood pressure is at the lower side. Continue potassium chloride 20 mg p.o. every morning, metoprolol tartrate 75 mg p.o. twice daily, aspirin 81 mg p.o. daily. Hold isosorbide mononitrate 120 mg p.o. daily while patient blood pressure is below 120/80. Present on Admission?: Yes History of Present Illness Chief Complaint: Swelling of the lower extremities Primary Care Provider: Fox Moran MD Patient is a 74 years old male with past medical history chronic renal insufficiency stage III, hypertension, hyperlipidemia, diabetes mellitus type 2, diabetic neuropathy, GERD, Raynaud's phenomenon, cognitive disorder, myocardial infarction, who presents to do emergency room s/p a quadruple bypass done in his left lower extremities on May 23 at [facility] where he was hospitalized for 1 week. Patient went to see his PCP and for nosebleed however his PCP was concerned about fluid overload and swelling of his lower extremities. Patient reports that he is short of breath and cough up greenish sputum. Recently patient was on antibiotics for cellulitis of the left distal extremity. Patient has a cast on his left arm from a recent fall. Patient reports that his follow-up appointment at [facility] is tomorrow. Patient does not have history of DVT but had 2 strokes. Labs are reviewed: WBC 6.66, hemoglobin 10.8, hematocrit 32.8, platelets 266, PT 11.4, INR 1.1, APTT 27.6. Sodium 137, potassium 4.6, chloride 109, BUN 29, creatinine 1.68, GFR 39.7, magnesium 2.3, AST 24, ALT 38, troponin elevated 0.0 49, the second troponin 0 0.017, BNP 1741, albumin 3.2. TSH pending. Venous Doppler negative for deep venous thrombosis. Long segment of occlusive superficial venous thrombosis of the left greater saphenous vein appears unchanged. Patient is not on blood thinner for superficial thrombosis. Chest x-rays: Cardiomegaly without overt pulmonary edema, small left pleural effusion with posterior left lung base opacities. Slightly improved from comparison. Findings are suggestive of atelectasis or pneumonia. Decision was made to admit patient to PCU on telemetry for acute CHF exacerbation, elevated troponin, rule out possible pneumonia. Procalcitonin pending. Allergies Allergy/AdvReac Type Severity Reaction Status Date / Time morphine AdvReac Severe "STOPS MY Verified 06/05/19 12:16 HEART" hydromorphone [From Dilaudid] AdvReac Intermediate unresponsiv Verified 06/05/19 12:16 eness trazodone AdvReac Intermediate GI UPSET Verified 06/05/19 12:16 diazepam AdvReac Mild HALLUCINATE Verified 06/05/19 12:16 S propoxyphene AdvReac Mild DRUG Verified 06/05/19 12:16 INTOLERANCE Home Medications Home Medications Medication Instructions Recorded Confirmed Type diclofenac sodium [Voltaren] 2 gm TOP QID #100 gm 10/20/18 06/05/19 Rx pen needle, diabetic 31 gauge x #30 ea 12/03/18 06/04/19 Rx 5/16" aspirin 81 mg chewable tablet 81 mg PO Q OTHER DAY 02/05/19 06/05/19 History citalopram 20 mg tablet 20 mg PO MOWEFR tab 02/05/19 06/05/19 History nitroglycerin 0.4 mg sublingual 0.4 mg SL Q5M PRN #1 tab 02/05/19 06/05/19 His tory tablet citalopram [Celexa] 40 mg PO SUTUTHSA 04/21/19 06/05/19 History ranitidine HCl 300 mg tablet 300 mg PO HS #90 tab 05/12/19 06/05/19 Rx furosemide 20 mg tablet 20 mg PO BID #30 tab 05/30/19 06/05/19 Rx melatonin 5 mg PO HS PRN 05/30/19 06/05/19 History metoprolol tartrate 75 mg tablet 75 mg PO BID #60 tab 05/30/19 06/05/19 Rx acetaminophen [Tylenol Extra 1,000 mg PO Q8H PRN 06/05/19 06/05/19 History Strength] atorvastatin [Lipitor] 80 mg PO QAM 06/05/19 06/05/19 History insulin glargine 100 unit/mL (3 40 - 65 units SQ HS ml MDD 65 06/05/19 06/05/19 History mL) subcutaneous pen units insulin lispro 100) 100 unit/mL 20 - 40 units SUBCUT AC ml 06/05/19 06/05/19 History subcutaneous pen isosorbide mononitrate 120 mg PO DAILY 06/05/19 06/05/19 History mupirocin [Centany] 1 appln TOP BID 06/05/19 06/05/19 History pantoprazole [Protonix] 40 mg PO QAM 06/05/19 06/05/19 History polyethylene glycol 3350 [Miralax] 17 gm PO QAM 06/05/19 06/05/19 History potassium chloride [K-Tab] 20 meq PO QAM 06/05/19 06/05/19 History sennosides-docusate sodium [Senna 1 tab PO QAM 06/05/19 06/05/19 History with Docusate Sodium] topiramate [Topamax] 100 mg PO BID 06/05/19 06/05/19 History tramadol [Ultram] 50 mg PO Q6H PRN 06/05/19 06/05/19 History Past Med/Surg History Medical History Atypical chest pain (Resolved) Benign colonic polyp (Chronic) CAD in [place] artery (Chronic) Cellulitis Chronic kidney disease (CKD) (Acute) Cognitive disorder (Chronic) Controlled type 2 diabetes mellitus with neurologic complication, with long-term current use of insulin (Resolved) Conversion disorder (Resolved) Diabetes mellitus, type 2 Diabetic peripheral neuropathy (Chronic) Dyslipidemia (Resolved) Esophageal reflux (Chronic) History of colon polyps (Chronic) History of tobacco use (Resolved) Hyperlipidemia (Chronic) Hypertension (Chronic) Kidney stone on right side (Resolved) Migraines, neuralgic (Chronic) Myocardial Infarction (Resolved) 2004--follows with Dr. Mejia Nephrolithiasis (Resolved) Neurological deficit present (Resolved) Neuropathy (Chronic) Osteoarthritis (Chronic) Raynauds phenomenon (Chronic) Stage III chronic kidney disease Tubular adenoma of colon (Resolved) Vitamin D deficiency (Chronic) Wound of left foot (Resolved) Surgical History History of arthroscopy of left knee (Resolved) History of cardiac cath (Resolved) x3-4, last 2014 History of carpal tunnel release of both wrists (Resolved) History of colonoscopy (Resolved) History of heart artery stent (Resolved) x1--1999 History of lithotripsy (Resolved) x2 History of lumbar discectomy (Resolved) x2 History of open reduction and internal fixation (ORIF) procedure (Resolved) left ankle--hardware in place History of right cataract extraction (Resolved) History of tonsillectomy and adenoidectomy (Resolved) Status post uvulopalatopharyngoplasty (Resolved) Family History Father Family history of diabetes mellitus Family hx of colon cancer Other No family history of adverse response to anesthesia Social History Preferred Language: American Communication Ability: Effective Lottery Clerk Required: No Beliefs That Will Affect Care: None marital status: Current Living Situation: Spouse Other Information That Helps Us Care for You: No Feels Safe at Home: Yes Safety Concerns: Feels Safe At This Time Smoking Status: Former smoker Second Hand Exposure: No ; Hx Alcohol Use: No Hx Substance Use: No Review of Systems Review of Systems: All systems reviewed & are unremarkable except as noted in HPI & below Physical Exam Constitutional: WD/WN, vitals as above well developed and + obese Eyes: PERRL, conjunctivae normal, anicteric sclerae ENMT: external ear and nose normal, oropharynx normal Neck: trachea midline, no thyromegaly Respiratory: Auscultation: + crackles and + wheezes Cardiovascular: Rate/Rhythm: regular rate and regular rhythm Heart Sounds: normal S1, normal S2 and + murmur Palpation: + palpable S3 Vessels: + JVD and dorsalis pedis pulses present Extremities: + pedal edema Gastrointestinal (Abdomen): normal bowel sounds, soft, nontender, no hepatosplenomegaly Musculoskeletal: no cyanosis or clubbing, extremities motor strength 5/5 Skin: no rashes, warm and dry Neurologic: patellar DTR's 2+ bilat, sensation intact Psychiatric: A+Ox3, euthymic affect Lymphatic: no cervical or axillary lymphadenopathy Results & Data Vital Signs (Past 12 Hours) Vital Signs Temp Pulse Pulse Pulse Resp BP BP 06/05/19 17:29 36.5 C 80 120 H 20 06/05/19 16:00 78 18 111/61 06/05/19 15:30 77 24 134/66 06/05/19 15:02 77 19 104/61 06/05/19 14:30 20 06/05/19 14:17 74 20 96/58 L 06/05/19 14:15 73 19 06/05/19 14:01 74 18 06/05/19 14:00 73 19 99/59 L 06/05/19 13:45 77 19 06/05/19 13:31 74 18 06/05/19 13:30 74 22 113/64 06/05/19 13:15 73 19 06/05/19 13:01 73 19 06/05/19 13:00 72 23 100/60 06/05/19 12:58 71 18 06/05/19 12:57 71 18 107/62 06/05/19 12:56 71 22 107/62 06/05/19 11:46 78 18 105/56 L 06/05/19 11:00 72 18 06/05/19 10:39 36.7 C 78 16 100/61 BP Pulse Ox 06/05/19 17:29 120/68 97 06/05/19 16:00 99 06/05/19 15:30 98 06/05/19 15:02 97 06/05/19 14:30 95 06/05/19 14:17 99 06/05/19 14:15 99 06/05/19 14:01 98 06/05/19 14:00 100 06/05/19 13:45 99 06/05/19 13:31 97 06/05/19 13:30 98 06/05/19 13:15 96 06/05/19 13:01 96 06/05/19 13:00 95 06/05/19 12:58 97 06/05/19 12:57 98 06/05/19 12:56 97 06/05/19 11:46 99 06/05/19 11:00 99 06/05/19 10:39 99 Code Status & VTE Plan Code Status Full code VTE Prophylaxis Plan VTE Prophylaxis will be ordered: Yes PG Care Time/CCT Total # of Minutes Spent Total Time Spent with Patient: Total time spent is greater than 50% in coordination of care (as documented) at patient's floor/unit and/or counseling patient: (1) GERD (gastroesophageal reflux disease) Esophagitis presence: esophagitis presence not specified Qualified Code(s): K21.9 - Gastro-esophageal reflux disease without esophagitis
[2019-06-05] MEDS: FUROSEMIDE 20 MG in SYRINGE 0 ML IV SCH (18:25)
[2019-06-05] MEDS: cefTRIAXone SODIUM 2,000 MG in DEXTROSE 5% 50 ML IV SCH (18:25)
[2019-06-05] MEDS: DICLOFENAC SOD 1% GEL 100 GM TUBE EXT SCH ×2 (18:26→20:38)
[2019-06-05] MEDS: INSULIN ASPART 100 UNITS/ML 3 ML PEN SC SCH ×2 (18:28→20:37)
[2019-06-05] MEDS: DOXYCYCLINE HYCLATE 100 MG in DEXTROSE 5% 100 ML IV SCH (19:51)
[2019-06-05] MEDS: MUPIROCIN 2% OINT 22 GM TUBE TOP SCH (20:36)
[2019-06-05] MEDS: INSULIN GLARGINE SOLOSTAR 100 UNITS/ML 3 ML PEN SC SCH (20:36)
[2019-06-05] MEDS: HEPARIN SOD 5,000 UNIT/0.5 ML VIAL SQ SCH (20:36)
[2019-06-05] MEDS: METOPROLOL TARTRATE 25 MG TAB PO SCH (20:37)
[2019-06-05] MEDS: TOPIRAMATE 100 MG TAB PO SCH (20:37)
[2019-06-06 06:27] LABS: Basophils # (auto) 0.01 K/uL (0-0.2); Basophils % (auto) 0.1 %; Eosinophils % (auto) 4.4 %; Hemoglobin 12.1 g/dL (14.0-18.0); Immature Granulocytes # (auto) 0.08 K/uL (0.00-0.02); Immature Granulocytes % (auto) 1.2 %; Lymphocytes # (auto) 0.28 K/uL (1.2-3.4); Lymphocytes % (auto) 4.1 %; Mean Corpuscular Hemoglobin 32.4 pg (25-34); Mean Corpuscular Hgb Conc 32.7 g/dL (32-36); Mean Corpuscular Volume 98.9 fL (80-100); Mean Platelet Volume 10.1 fL (7.4-10.4); Monocytes # (auto) 0.53 K/uL (0.11-0.59); Monocytes % (auto) 7.8 %; Neutrophils # (auto) 5.63 K/uL (1.4-6.5); Neutrophils % (auto) 82.4 %; Platelet Count 333 K/uL (130-400); RDW Coefficient of Variation 14.3 % (11.5-14.5); RDW Standard Deviation 50.7 fL (36.4-46.3); Red Blood Count 3.74 M/uL (4.7-6.1); White Blood Count 6.83 K/uL (4.8-10.8)
[2019-06-06 06:50] LABS: Albumin Level 3.3 gm/dl (3.4-5.0); BUN Creatinine Ratio 15.2 (10-20); Calcium 8.9 mg/dl (8.5-10.1); Creatinine Clr Calc Pharmacy 39.4 ml/min; Est GFR (African American) 40.7; Est GFR (Non-African American) 35.1; Potassium 4.1 mmol/L (3.5-5.1)
[2019-06-06 06:54] LABS: Albumin Globulin Ratio 0.8 (0.9-2); Bilirubin,Total 0.6 mg/dl (0.2-1); Globulin 4.2 gm/dl (2.5-4.0); Total Protein 7.5 gm/dl (6.4-8.2)
[2019-06-06] MEDS: DOXYCYCLINE HYCLATE 100 MG in DEXTROSE 5% 100 ML IV SCH ×2 (07:32→20:22)
[2019-06-06] MEDS: ATORVASTATIN 40 MG TAB PO SCH (08:02)
[2019-06-06] MEDS: METOPROLOL TARTRATE 25 MG TAB PO SCH ×2 (08:02→20:21)
[2019-06-06] MEDS: DOCUSATE SODIUM/SENNA 50/8.6MG TAB PO SCH (08:02)
[2019-06-06] MEDS: MUPIROCIN 2% OINT 22 GM TUBE TOP SCH ×2 (08:02→20:22)
[2019-06-06] MEDS: ASPIRIN 81 MG ECTAB PO SCH (08:03)
[2019-06-06] MEDS: HEPARIN SOD 5,000 UNIT/0.5 ML VIAL SQ SCH ×2 (08:03→20:22)
[2019-06-06] MEDS: CITALOPRAM 20 MG TAB PO SCH (08:03)
[2019-06-06] MEDS: FUROSEMIDE 20 MG in SYRINGE 0 ML IV SCH ×2 (08:03→16:48)
[2019-06-06] MEDS: POTASSIUM CHLORIDE 20 MEQ TABCR PO SCH (08:03)
[2019-06-06] MEDS: TOPIRAMATE 100 MG TAB PO SCH ×2 (08:04→20:22)
[2019-06-06] MEDS: DICLOFENAC SOD 1% GEL 100 GM TUBE EXT SCH ×4 (08:04→20:22)
[2019-06-06] MEDS: POLYETHYLENE (MIRALAX) 17 GM PACK PO SCH (08:04)
[2019-06-06] MEDS: INSULIN ASPART 100 UNITS/ML 3 ML PEN SC SCH ×4 (08:16→20:24)
--- NOTE | 2019-06-06 08:28 | Pharmacy Report ---
Pharmacy Glycemic Short Note 2 - Date of Service June 06, 2019 - Glycemic Short BSG Results (Last 24 hours): 06/05/19 06/05/19 06/05/19 11:24 17:53 20:13 Glucose 121 H POC Glucose 153 H 211 H 06/06/19 06/06/19 06:00 07:33 Glucose 158 H POC Glucose 152 H OUTPATIENT ANTIDIABETIC REGIMEN (per patient report): * Lantus 40-65 units Q HS * Novolog 10-15 units with meals * A1c = 6.5% 05/15/19 ASSESSMENT: * Type 2 diabetic admitted for ADHF * Patient was recently admitted to [facility] late last month, BSGs and insulin doses from that admission reviewed * Patient was only requiring ~20 units of Lantus per day with minimal Novolog at mealtimes and this led to BSGs mostly less than 200. Pt reported eating well during that hospitalization. * Upon questioning the patient about his home regimen, it sounds as though he often has hypoglycemic episodes in the night. Will give less Lantus inpatient vs outpt * Novolog doses will also be scaled back as his total daily insulin requirements are likely 40-50 units/day vs reported outpt regimen which provides closer to 100+ units per day PLAN FOR INPATIENT GLYCEMIC CONTROL: * Basal insulin * Lantus SQ HS * 20 units if BSG less than 140 * 30 units if BSG 140 or greater * Bolus insulin * NovoLog per scale ACHS or Q6hrs while NPO * Goal Range: Low 120 mg/dL - High 160 mg/dL * Correction Factor: 30 mg/dL/unit * Nutritional / Prandial insulin per carb ratio of 1 unit per 10 grams CHO consumed PLAN FOR DISCHARGE: * out-pt regimen may be too aggressive given pt's reports of hypoglycemic episodes in the night and erratic BSG pattern (frequent highs and lows). this will require close f/u with PCP (Dr Moran) for insulin regimen adjustment. it sounds as though his basal dose should be reduced on discharge.
[2019-06-06] MEDS ORDERED: FAMOTIDINE 20 MG in SYRINGE 3 ML IV SCH (09:00)
--- NOTE | 2019-06-06 11:25 | Cardiology Consultation ---
Date of Consultation June 06, 2019 Assessment & Plan (1) Fluid overload: Patient presented with lower extremity edema, shortness of breath, and productive cough. His Pro-BNP is elevated >2,000, and he does have lower extremity edema on examination today, although no appreciable JVD. CXR showed small left pleural effusion with left lung opacities, but no jonathan pulmonary edema. He is currently being treated with antibiotic therapy for pneumonia as well as IV Lasix for volume overload. He is down about 1 L since admission, and he has noted symptomatic improvement overall. Recommend continuing IV diuretic therapy, and continuing to monitor renal function closely as his creatinine is trending upward. It may also be prudent to have Nephrology get involved as well given his chronic kidney disease. Will also obtain an echocardiogram to further evaluate his LV systolic function and rule out a pericardial effusion. (2) CAD in [place] artery: He recently underwent CABG x3 on 05/24/19. His mild troponin elevation on 05/30/19 appears to be a normal post-op finding, and fortunately, his troponin is now trending downward. ECGs have showed no acute ischemic changes, and patient is not experiencing angina. Continue current therapy including aspirin and high intensity statin. Echo ordered as noted above. (3) Hyperlipidemia: Continue high intensity statin therapy. Patient discussed with Dr. Rivera who will also be in to see the patient later today. Supervising Physician Co-Signing Physician Notes Patient seen and examined. Agree with Desirae. He is feeling better today after initial diuresis but still has some fluid and still has a productive cough. Review of his echocardiogram myself shows no significant effusion and good left ventricular function, formal report pending. I would recommend continued diuresis, if his renal function worsens I would involve nephrology as he does need to have ongoing diuresis. History of Present Illness History of Present Illness Mr. Blanchard is a 74-year-old male with a past medical history significant for insulin dependent diabetes mellitus, dyslipidemia, hypertension, chronic kidney disease, esophageal reflux, migraine headaches, and coronary artery disease s/p CABG x3 (KAUR-LAD, SVG-OM, SVG-PDA) on 05/24/19 at [facility] who was admitted yesterday with lower extremity edema, shortness of breath, and productive cough. Patient's recent course has been complicated. He was admitted to [facility] in late April with chest pain, generalized weakness, and headache. He was found to have multivessel CAD and was subsequently transferred to [facility] [place] revascularization. He underwent CABG x3 by Dr. Raphael and was admitted in [place] for a total of 6 days. The day after discharge, he presented to the ED at [facility] with left lower extremity swelling and warmth. Venous duplex showed no DVT. No further intervention was recommended at that time as he was already taking Keflex. He was then evaluated in the ED at [facility] for the same complaint, and it was felt that there could possibly be an infection of his vein harvest site, and it was recommended by CT surgery that his Keflex be switched to Bactrim. 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 He has also been seen by orthopedics for care of a left distal radius fracture for which he has a cast in place. More recently, he was seen in his PCP's office yesterday and at that time admitted to shortness of breath, productive cough, and edema. Due to concern for fluid retention, he was referred to the ED. He states that the shortness of breath began around the time that he underwent bypass surgery. He noted shortness of breath even while at rest, but it was worsened with lying flat and ambulating. He also developed a cough with white sputum production. He has continued to note swelling of his left lower extremity. He has been treated with antibiotic therapy for pneumonia as well as IV Lasix for fluid retention. With these interventions, he has noted an improvement in his breathing. He reports musculoskeletal discomfort around the area of his sternotomy incision. He denies angina. He reports chronic orthostatic lightheadedness symptoms. He denies any recent syncope or presyncope. He reports episodes of tachy-palpitations lasting 10-15 minutes, which occur 2-3x daily. This has been an ongoing complaint over the last several years and his symptoms do not appear to have ever been correlated with an arrhythmia. Allergies Allergy/AdvReac Type Severity Reaction Status Date / Time morphine AdvReac Severe "STOPS MY Verified 06/05/19 12:16 HEART" hydromorphone [From Dilaudid] AdvReac Intermediate unresponsiv Verified 06/05/19 12:16 eness trazodone AdvReac Intermediate GI UPSET Verified 06/05/19 12:16 diazepam AdvReac Mild HALLUCINATE Verified 06/05/19 12:16 S propoxyphene AdvReac Mild DRUG Verified 06/05/19 12:16 INTOLERANCE Home Medications Home Medications Medication Instructions Recorded Confirmed Type diclofenac sodium [Voltaren] 2 gm TOP QID #100 gm 10/20/18 06/05/19 Rx pen needle, diabetic 31 gauge x #30 ea 12/03/18 06/04/19 Rx /" aspirin 81 mg chewable tablet 81 mg PO Q OTHER DAY 02/05/19 06/05/19 History citalopram 20 mg tablet 20 mg PO MOWEFR tab 02/05/19 06/05/19 History nitroglycerin 0.4 mg sublingual 0.4 mg SL Q5M PRN #1 tab 02/05/19 06/05/19 History tablet citalopram [Celexa] 40 mg PO SUTUTHSA 04/21/19 06/05/19 History ranitidine HCl 300 mg tablet 300 mg PO HS #90 tab 05/12/19 06/05/19 Rx furosemide 20 mg tablet 20 mg PO BID #30 tab 05/30/19 06/05/19 Rx melatonin 5 mg PO HS PRN 05/30/19 06/05/19 History metoprolol tartrate 75 mg tablet 75 mg PO BID #60 tab 05/30/19 06/05/19 Rx acetaminophen [Tylenol Extra 1,000 mg PO Q8H PRN 06/05/19 06/05/19 History Strength] atorvastatin [Lipitor] 80 mg PO QAM 06/05/19 06/05/19 History insulin glargine 100 unit/mL (3 40 - 65 units SQ HS ml MDD 65 06/05/19 06/05/19 History mL) subcutaneous pen units insulin lispro 100) 100 unit/mL 20 - 40 units SUBCUT AC ml 06/05/19 06/05/19 History subcutaneous pen isosorbide mononitrate 120 mg PO DAILY 06/05/19 06/05/19 History mupirocin [Centany] 1 appln TOP BID 06/05/19 06/05/19 History pantoprazole [Protonix] 40 mg PO QAM 06/05/19 06/05/19 History polyethylene glycol 3350 [Miralax] 17 gm PO QAM 06/05/19 06/05/19 History potassium chloride [K-Tab] 20 meq PO QAM 06/05/19 06/05/19 History sennosides-docusate sodium [Senna 1 tab PO QAM 06/05/19 06/05/19 History with Docusate Sodium] topiramate [Topamax] 100 mg PO BID 06/05/19 06/05/19 History tramadol [Ultram] 50 mg PO Q6H PRN 06/05/19 06/05/19 History Patient History Medical History Atypical chest pain (Resolved) Benign colonic polyp (Chronic) CAD in [place] artery (Chronic) Cellulitis Chronic kidney disease (CKD) (Acute) Cognitive disorder (Chronic) Controlled type 2 diabetes mellitus with neurologic complication, with long-term current use of insulin (Resolved) Conversion disorder (Resolved) Diabetes mellitus, type 2 Diabetic peripheral neuropathy (Chronic) Dyslipidemia (Resolved) Esophageal reflux (Chronic) History of colon polyps (Chronic) History of tobacco use (Resolved) Hyperlipidemia (Chronic) Hypertension (Chronic) Kidney stone on right side (Resolved) Migraines, neuralgic (Chronic) Myocardial Infarction (Resolved) 2004--follows with Dr. Mejia Nephrolithiasis (Resolved) Neurological deficit present (Resolved) Neuropathy (Chronic) Osteoarthritis (Chronic) Raynauds phenomenon (Chronic) Stage III chronic kidney disease Tubular adenoma of colon (Resolved) Vitamin D deficiency (Chronic) Wound of left foot (Resolved) Surgical History History of arthroscopy of left knee (Resolved) History of cardiac cath (Resolved) x3-4, last 2014 History of carpal tunnel release of both wrists (Resolved) History of colonoscopy (Resolved) History of heart artery stent (Resolved) x1--1998 History of lithotripsy (Resolved) x2 History of lumbar discectomy (Resolved) x2 History of open reduction and internal fixation (ORIF) procedure (Resolved) left ankle--hardware in place History of right cataract extraction (Resolved) History of tonsillectomy and adenoidectomy (Resolved) Status post uvulopalatopharyngoplasty (Resolved) Family History Father Family history of diabetes mellitus Family hx of colon cancer Other No family history of adverse response to anesthesia Social History Preferred Language: Sammarinese Communication Ability: Effective Interventional Radiology Tech Required: No Beliefs That Will Affect Care: None marital status: Current Living Situation: Spouse Other Information That Helps Us Care for You: No Feels Safe at Home: Yes Safety Concerns: Feels Safe At This Time Smoking Status: Former smoker Second Hand Exposure: No ; Hx Alcohol Use: No Hx Substance Use: No Physical Exam Physical Exam: Constitutional: Alert, oriented, in no acute distress HEENT: Head is atraumatic and normocephalic. EOMs intact. Sclera non-icteric. Face is symmetric. No perioral cyanosis. Mucous membranes moist Neck: Supple, no JVD Chest: Well healing sternotomy incision Pulmonary: Normal respiratory effort, clear to auscultation throughout Cardiac: Regular rate and rhythm, normal S1 and S2, no gallops, no rubs, no murmurs Extremities: 1-2+ lower extremity edema, L>R. No clubbing or cyanosis. Pulses intact Abdomen: Normal bowel sounds, soft, non-tender, no abdominal masses palpated Skin: Chronic venous stasis skin changes of lower extremities. Scattered scabbed lesions on legs. Ecchymosis of the left thigh. Well healing vein harvest incisions of left leg Neurological: Oriented to person, place, and time Results & Data Vital Signs (Past 12 Hours) Vital Signs Temp Pulse Pulse Resp BP BP Pulse Ox 06/06/19 08:00 96 H 06/06/19 06:42 98.8 F 81 22 98/61 L 97 06/06/19 04:53 98.1 F 75 20 111/66 96 06/06/19 00:52 96 H 06/05/19 23:57 99.0 F 94 H 24 123/69 97 Laboratory Results Laboratory Results WBC 6.83 K/uL (4.8-10.8) 06/06/19 06:00 RBC 3.74 M/uL (4.7-6.1) L 06/06/19 06:00 Hgb 12.1 g/dL (14.0-18.0) L 06/06/19 06:00 Hct 37.0 % (42-52) L 06/06/19 06:00 MCV 98.9 fL (80-100) 06/06/19 06:00 MCH 32.4 pg (25-34) 06/06/19 06:00 MCHC 32.7 g/dL (32-36) 06/06/19 06:00 RDW Std Deviation 50.7 fL (36.4-46.3) H 06/06/19 06:00 RDW Coeff of Gissel 14.3 % (11.5-14.5) 06/06/19 06:00 Plt Count 333 K/uL (130-400) 06/06/19 06:00 MPV 10.1 fL (7.4-10.4) 06/06/19 06:00 Immature Gran % (Auto) 1.2 % 06/06/19 06:00 Neut % (Auto) 82.4 % 06/06/19 06:00 Lymph % (Auto) 4.1 % 06/06/19 06:00 Hood % (Auto) 7.8 % 06/06/19 06:00 Eos % (Auto) 4.4 % 06/06/19 06:00 Baso % (Auto) 0.1 % 06/06/19 06:00 Immature Gran # (Auto) 0.08 K/uL (0.00-0.02) H 06/06/19 06:00 Neut # (Auto) 5.63 K/uL (1.4-6.5) 06/06/19 06:00 Lymph # (Auto) 0.28 K/uL (1.2-3.4) L 06/06/19 06:00 Hood # (Auto) 0.53 K/uL (0.11-0.59) 06/06/19 06:00 Eos # (Auto) 0.30 K/uL (0-0.5) 06/06/19 06:00 Baso # (Auto) 0.01 K/uL (0-0.2) 06/06/19 06:00 PT 11.4 Seconds (9.0-12.0) 06/05/19 11:24 INR 1.1 (0.9-1.1) 06/05/19 11:24 APTT 27.6 Seconds (21.0-31.0) 06/05/19 11:24 PTT Ratio 1.0 06/05/19 11:24 Sodium 135 mmol/L (136-145) L 06/06/19 06:00 Potassium 4.1 mmol/L (3.5-5.1) 06/06/19 06:00 Chloride 106 mmol/L (98-107) 06/06/19 06:00 Carbon Dioxide 22 mmol/L (21-32) 06/06/19 06:00 Anion Gap 7.0 (3-11) 06/06/19 06:00 BUN 28 mg/dl (7-18) H 06/06/19 06:00 Creatinine 1.86 mg/dl (0.6-1.4) H 06/06/19 06:00 Est Cr Clr Drug Dosing 39.4 ml/min 06/06/19 06:00 Est GFR ( Amer) 40.7 06/06/19 06:00 Est GFR (Non-Af Amer) 35.1 06/06/19 06:00 BUN/Creatinine Ratio 15.2 (10-20) 06/06/19 06:00 Glucose 158 mg/dl (70-99) H 06/06/19 06:00 POC Glucose 155 (70-99) H 06/06/19 11:21 Calcium 8.9 mg/dl (8.5-10.1) 06/06/19 06:00 Magnesium 2.3 mg/dl (1.8-2.4) 06/05/19 11:24 Total Bilirubin 0.6 mg/dl (0.2-1) 06/06/19 06:00 AST 22 U/L (15-37) 06/06/19 06:00 ALT 35 U/L (12-78) 06/06/19 06:00 Alkaline Phosphatase 146 U/L (45-117) H 06/06/19 06:00 Troponin I 0.017 ng/ml (0-0.045) 06/05/19 11:24 NT-Pro-B Natriuret Pep 2490 pg/ml (0-900) H 06/06/19 06:00 Total Protein 7.5 gm/dl (6.4-8.2) 06/06/19 06:00 Albumin 3.3 gm/dl (3.4-5.0) L 06/06/19 06:00 Globulin 4.2 gm/dl (2.5-4.0) H 06/06/19 06:00 Albumin/Globulin Ratio 0.8 (0.9-2) L 06/06/19 06:00 Triglycerides 98 mg/dl (0-150) 06/06/19 06:00 Cholesterol 96 mg/dl (0-200) 06/06/19 06:00 LDL Cholesterol, Calc 36 mg/dl 06/06/19 06:00 VLDL Cholesterol, Calc 20 mg/dl 06/06/19 06:00 HDL Cholesterol 40 mg/dl 06/06/19 06:00 Cholesterol/HDL Ratio 2 06/06/19 06:00 Procalcitonin 0.28 ng/ml (0-0.5) 06/05/19 18:42 TSH 1.030 uIu/ml (0.300-4.500) 06/05/19 11:24 Diagnostic Findings ECGs: Normal sinus rhythm. Left axis deviation. Inferior infarct. No acute ST-T wave abnormality. CXR: 1. Cardiomegaly without overt pulmonary edema. 2. Small left pleural effusion with persistent left lung base opacities, slightly improved from comparison. Findings are suggestive of atelectasis or pneumonia. PG Care Time/CCT Total # of Minutes Spent Total Time Spent with Patient: Total time spent is greater than 50% in coordination of care (as documented) at patient's floor/unit and/or counseling patient: (1) Fluid overload Hypervolemia type: unspecified Qualified Code(s): E87.70 - Fluid overload, unspecified
--- NOTE | 2019-06-06 14:14 | XRay Report ---
XR chest 2V PA/lateral CLINICAL HISTORY: ?pneumonia vs CHF COMPARISON STUDY: Chest CT May 16, 2019 and chest radiograph June 05, 2019. FINDINGS: Median sternotomy wires are noted as well as mediastinal surgical clips. Moderate cardiomeg estephanie is unchanged. Interstitial thickening and left basilar opacities have slightly improved although this could be due to differences in technique. There is a small left pleural effusion. There is no pn eumothorax. IMPRESSION: 1. Interval improvement in left basilar opacities and resolution of interstitial thickening. 2. Small left pleural effusion. ACT 112: Negative or not required by law. Electronically signed by: Barber Finnegan M.D. 06/06/2019 2:13 PM
[2019-06-06] MEDS: cefTRIAXone SODIUM 2,000 MG in DEXTROSE 5% 50 ML IV SCH (17:42)
[2019-06-06] MEDS: INSULIN GLARGINE SOLOSTAR 100 UNITS/ML 3 ML PEN SC SCH (20:23)
--- NOTE | 2019-06-06 20:52 | Hospitalist Progress Note ---
Date of Service June 06, 2019 Assessment & Plan (1) Acute congestive heart failure: Patient feels better today following diuresis. Echo with preserved EF thus likely acute diastolic CHF. Cont diuresis with lasix 20mg BID. Repeat labs in am. Plan to recheck cxr today to assess infiltrates; if they are improved overnight this would argue for CHF rather than pneumonia. (2) Pneumonia: Question of. Cont ceftriaxone 2 g IV daily and doxycycline 100 mg BID. Repeat cxr today. Depending on results could consider d/c of abx. (3) Status post coronary artery bypass graft: 4-vessel at [facility] within the last few weeks. Cont BB, asa, statin, etc. No ischemic symptoms at this time. Echo w/o wall motion abnormalities. (4) Distal radius fracture, left: Continue splint. Ortho f/u post-d/c. (5) Chronic kidney disease (CKD): stage 3 BMP in am for stability (6) Diabetes mellitus: Pharmacy managing - appreciate their assistance control very satisfactory (7) GERD (gastroesophageal reflux disease): Famotidine 20 mg daily convert to PO formulation today (8) Hyperlipidemia: Continue home dose of atorvastatin 80 mg p.o. every morning. (9) Hypertension: BPs mildly low at times. Imdur is on hold. If BPs are stable overnight consider resuming the imdur. (10) DVT prophylaxis: heparin BID Subjective patient feeling better today. states he was developing chest congestion, cough, dyspnea, and sputum production just prior to discharge from [place] following his CABG. Then, 2 nights ago on Sunday, his breathing got much worse. +orthopnea +PND cough is productive of purulent sputum. tele overnight wnl. Review of Systems Constitutional: no fever, no chills and no anorexia Respiratory: + cough, + chest congestion and + dyspnea on exertion; no hemoptysis and no wheezing Cardiovascular: + chest pain (mild soreness over midline sternal scar ) Gastrointestinal: no abdominal pain, no nausea, no vomiting, no constipation and no diarrhea/loose stools Physical Exam Constitutional: well developed and well nourished; no acute distress ENMT: external ear and nose normal, oropharynx normal Respiratory: normal respiratory effort, lungs clear to auscultation Auscultation: no crackles and no wheezes Cardiovascular: Rate/Rhythm: regular rate and regular rhythm Heart Sounds: normal S1 and normal S2; no murmur Vessels: posterior tibial pulses present and dorsalis pedis pulses present; no JVD Extremities: + edema (left leg - 1/2+; right leg - trace-1+) Gastrointestinal (Abdomen): normal bowel sounds, soft, nontender, no hepatosplenomegaly Musculoskeletal: left arm in splint Skin: ecchymoses proximal left thigh; generalized edema entire left leg; vein harvest sites with heeling scabs; hyperpigmentation of distal left leg and ankle; no cellulitis present midline sternal scar present - well healed Psychiatric: A+Ox3, euthymic affect Results & Data Vital Signs (Past 12 Hours) Vital Signs Temp Pulse Pulse Resp BP Pulse Ox 06/06/19 19:13 36.4 C L 81 18 135/71 100 06/06/19 15:11 36.8 C 73 18 100/60 99 06/06/19 11:25 36.9 C 70 19 117/72 100 Laboratory Results Laboratory Results - last 24 hr 06/06/19 06/06/19 06/06/19 06:00 06:00 07:33 WBC 6.83 RBC 3.74 L Hgb 12.1 L Hct 37.0 L MCV 98.9 MCH 32.4 MCHC 32.7 RDW Std Deviation 50.7 H RDW Coeff of Gissel 14.3 Plt Count 333 MPV 10.1 Immature Gran % (Auto) 1.2 Neut % (Auto) 82.4 Lymph % (Auto) 4.1 Dickson % (Auto) 7.8 Eos % (Auto) 4.4 Baso % (Auto) 0.1 Immature Gran # (Auto) 0.08 H Neut # (Auto) 5.63 Lymph # (Auto) 0.28 L Dickson # (Auto) 0.53 Eos # (Auto) 0.30 Baso # (Auto) 0.01 Sodium 135 L Potassium 4.1 Chloride 106 Carbon Dioxide 22 Anion Gap 7.0 BUN 28 H Creatinine 1.86 H Est Cr Clr Drug Dosing 39.4 Est GFR ( Amer) 40.7 Est GFR (Non-Af Amer) 35.1 BUN/Creatinine Ratio 15.2 Glucose 158 H POC Glucose 152 H Calcium 8.9 Total Bilirubin 0.6 AST 22 ALT 35 Alkaline Phosphatase 146 H NT-Pro-B Natriuret Pep 2490 H Total Protein 7.5 Albumin 3.3 L Globulin 4.2 H Albumin/Globulin Ratio 0.8 L Triglycerides 98 Cholesterol 96 LDL Cholesterol, Calc 36 VLDL Cholesterol, Calc 20 HDL Cholesterol 40 Cholesterol/HDL Ratio 2 06/06/19 06/06/19 06/06/19 11:21 16:15 20:22 WBC RBC Hgb Hct MCV MCH MCHC RDW Std Deviation RDW Coeff of Gissel Plt Count MPV Immature Gran % (Auto) Neut % (Auto) Lymph % (Auto) Dickson % (Auto) Eos % (Auto) Baso % (Auto) Immature Gran # (Auto) Neut # (Auto) Lymph # (Auto) Dickson # (Auto) Eos # (Auto) Baso # (Auto) Sodium Potassium Chloride Carbon Dioxide Anion Gap BUN Creatinine Est Cr Clr Drug Dosing Est GFR ( Amer) Est GFR (Non-Af Amer) BUN/Creatinine Ratio Glucose POC Glucose 155 H 172 H 154 H Calcium Total Bilirubin AST ALT Alkaline Phosphatase NT-Pro-B Natriuret Pep Total Protein Albumin Globulin Albumin/Globulin Ratio Triglycerides Cholesterol LDL Cholesterol, Calc VLDL Cholesterol, Calc HDL Cholesterol Cholesterol/HDL Ratio PG Care Time/CCT Total # of Minutes Spent Total Time Spent with Patient: Total time spent is greater than 50% in coordination of care (as documented) at patient's floor/unit and/or counseling p atient: (1) Acute congestive heart failure Heart failure type: diastolic Qualified Code(s): I50.31 - Acute diastolic (congestive) heart failure (2) Pneumonia Pneumonia type: due to unspecified organism (3) GERD (gastroesophageal reflux disease) Esophagitis presence: esophagitis presence not specified Qualified Code(s): K21.9 - Gastro-esophageal reflux disease without esophagitis
[2019-06-07 07:56] LABS: BUN Creatinine Ratio 22.4 (10-20); Calcium 8.5 mg/dl (8.5-10.1); Creatinine Clr Calc Pharmacy 50.1 ml/min; Est GFR (African American) 54.5
[2019-06-07] MEDS: INSULIN ASPART 100 UNITS/ML 3 ML PEN SC SCH ×5 (08:06→20:57)
[2019-06-07] MEDS: HEPARIN SOD 5,000 UNIT/0.5 ML VIAL SQ SCH ×2 (08:07→20:17)
[2019-06-07] MEDS: TOPIRAMATE 100 MG TAB PO SCH ×2 (08:10→20:19)
[2019-06-07] MEDS: ATORVASTATIN 40 MG TAB PO SCH (08:10)
[2019-06-07] MEDS: METOPROLOL TARTRATE 25 MG TAB PO SCH ×2 (08:10→20:15)
[2019-06-07] MEDS: CITALOPRAM 40 MG TAB PO SCH (08:10)
[2019-06-07] MEDS: FAMOTIDINE 20 MG TAB PO SCH (08:11)
[2019-06-07] MEDS: DOCUSATE SODIUM/SENNA 50/8.6MG TAB PO SCH (08:11)
[2019-06-07] MEDS: POTASSIUM CHLORIDE 20 MEQ TABCR PO SCH (08:11)
[2019-06-07] MEDS: DICLOFENAC SOD 1% GEL 100 GM TUBE EXT SCH ×4 (08:12→20:17)
[2019-06-07] MEDS: POLYETHYLENE (MIRALAX) 17 GM PACK PO SCH (08:12)
[2019-06-07] MEDS: FUROSEMIDE 20 MG in SYRINGE 0 ML IV SCH ×2 (08:12→17:26)
[2019-06-07] MEDS: MUPIROCIN 2% OINT 22 GM TUBE TOP SCH ×2 (08:13→20:18)
[2019-06-07] MEDS: DOXYCYCLINE HYCLATE 100 MG in DEXTROSE 5% 100 ML IV SCH (08:31)
[2019-06-07] MEDS ORDERED: SODIUM CHLORIDE 0.65% NA SOLN 45 ML (OCEAN) PRN (12:35)
--- NOTE | 2019-06-07 12:35 | Hospitalist Progress Note ---
Date of Service June 07, 2019 Assessment & Plan (1) Acute congestive heart failure: Improving. BUN/Cr stable. Exam stable/improved. Cont lasix 20mg IV BID. Repeat labs am. Echo with preserved EF thus likely acute diastolic CHF. (2) Pneumonia: Question of. Suspect that his presenting pulmonary symptoms were most c/w CHF/volume overload rather than pneumonia. Could have bronchitis. STOP rocephin. STOP IV doxy. Change to PO doxy. Complete 7 days in total. (3) Status post coronary artery bypass [place] [facility] [place] Cont BB, asa, statin, etc. No ischemic symptoms at this time. Echo w/o wall motion abnormalities. (4) Distal radius fracture, left: Continue splint. Ortho f/u post-d/c. (5) Chronic kidney disease (CKD): stage 3 BMP continues to remain stable (6) Diabetes mellitus: Pharmacy managing - appreciate their assistance control adequate (7) GERD (gastroesophageal reflux disease): cont Famotidine 20 mg daily (8) Hyperlipidemia: Continue atorvastatin 80 mg daily (9) Hypertension: BPs stable resume imdur albeit at lower dose (10) Epistaxis: due to dry air, use of aspirin, etc bactroban ointment to both nares BID nasal saline drops prn (11) Rash: drug reaction? due to chronic skin condition for which he sees gypsum roofer? (but this rash does not look like eczema) he believes that the rash is his chronic rash he has previously received prednisone in past for his rashes will give prednisone 30mg x 1 and re-eval tomorrow (12) DVT prophylaxis: heparin BID nosebleed is very mild thus continue heparin PT, OT evals progressing Subjective patient sitting in chair by bedside. just finished eating lunch; ate 100% of breakfast AND lunch. continues with cough with sputum production. continues to blame this on "chemical exposure" years ago from occupational exposure. he had a nose bleed this am from both nostrils. bleeding has stopped. tele overnight wnl. he now has a new rash. this started overnight. not pruritic. covers the neck and chest only. he attributes it to his chemical exposure from years ago. does not think it is drug reaction to his antibiotics. his legs/arms are not affected by this new rash. 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 Review of Systems Constitutional: + fatigue; no fever, no chills and no anorexia Respiratory: + cough and + sputum production; no dyspnea and no hemoptysis Cardiovascular: no chest pain and no orthopnea Gastrointestinal: no abdominal pain, no nausea and no vomiting Physical Exam Constitutional: well developed and well nourished; no acute distress ENMT: Nose: + nare abnormality (dried blood (scant) b/l); no external nose ab normality Mouth: no oral mucosal abnormality and oral mucous membranes not dry Respiratory: normal respiratory effort, lungs clear to auscultation Auscultation: no crackles and no wheezes Cardiovascular: Rate/Rhythm: regular rate and regular rhythm Heart Sounds: normal S1 and normal S2; no murmur Vessels: posterior tibial pulses present and dorsalis pedis pulses present; no JVD Extremities: + edema (none on right; 1+ left) Gastrointestinal (Abdomen): normal bowel sounds, soft, nontender, no hepatosplenomegaly Skin: erythematous macularpapular rash on lower neck and chest; other areas spared; a few ulcerative skin lesions on neck and legs Psychiatric: A+Ox3, euthymic affect Results & Data Vital Signs (Past 12 Hours) Vital Signs Temp Pulse Resp BP Pulse Ox 06/07/19 06:53 36.6 C 79 22 114/72 96 06/07/19 03:32 36.8 C 76 22 116/69 97 Laboratory Results Laboratory Results - last 24 hr 06/06/19 06/06/19 06/07/19 16:15 20:22 07:00 Sodium 135 L Potassium 4.0 Chloride 105 Carbon Dioxide 22 Anion Gap 8.0 BUN 33 H Creatinine 1.46 H D Est Cr Clr Drug Dosing 50.1 Est GFR ( Amer) 54.5 Est GFR (Non-Af Amer) 47.0 BUN/Creatinine Ratio 22.4 H Glucose 133 H POC Glucose 172 H 154 H Calcium 8.5 Specimen Hemolysis 06/07/19 06/07/19 07:43 11:32 Sodium Potassium Chloride Carbon Dioxide Anion Gap BUN Creatinine Est Cr Clr Drug Dosing Est GFR ( Amer) Est GFR (Non-Af Amer) BUN/Creatinine Ratio Glucose POC Glucose 147 H 162 H Calcium Specimen Hemolysis PG Care Time/CCT Total # of Minutes Spent Total Time Spent with Patient: Total time spent is greater than 50% in coordination of care (as documented) at patient's floor/unit and/or counseling patient: (1) Acute congestive heart failure Heart failure type: diastolic Qualified Code(s): I50.31 - Acute diastolic (congestive) heart failure (2) GERD (gastroesophageal reflux disease) Esophagitis presence: esophagitis presence not specified Qualified Code(s): K21.9 - Gastro-esophageal reflux disease without esophagitis (3) Pneumonia Pneumonia type: due to unspecified organism
[2019-06-07] MEDS: MUPIROCIN 2% OINT 22 GM TUBE EXT SCH ×2 (15:15→20:18)
[2019-06-07] MEDS ORDERED: predniSONE 10 MG TABLET PO ONE (18:56)
[2019-06-07] MEDS ORDERED: INSULIN GLARGINE SOLOSTAR 100 UNITS/ML 3 ML PEN SC ONE (19:15)
[2019-06-07] MEDS: guaiFENesin 600 MG TABCR PO SCH (20:16)
[2019-06-07] MEDS: DOXYCYCLINE HYCLATE 100 MG CAP PO SCH (20:17)
[2019-06-08] MEDS: INSULIN ASPART 100 UNITS/ML 3 ML PEN SC SCH ×6 (00:42→21:37)
[2019-06-08 06:22] LABS: BUN Creatinine Ratio 24.7 (10-20); Calcium 9.2 mg/dl (8.5-10.1); Creatinine Clr Calc Pharmacy 53.4 ml/min; Est GFR (African American) 58.9; Est GFR (Non-African American) 50.8; Potassium 4.5 mmol/L (3.5-5.1)
[2019-06-08] MEDS: HEPARIN SOD 5,000 UNIT/0.5 ML VIAL SQ SCH ×2 (08:24→21:38)
[2019-06-08] MEDS: DOXYCYCLINE HYCLATE 100 MG CAP PO SCH ×2 (08:30→21:36)
[2019-06-08] MEDS: POTASSIUM CHLORIDE 20 MEQ TABCR PO SCH (08:31)
[2019-06-08] MEDS: FAMOTIDINE 20 MG TAB PO SCH (08:31)
[2019-06-08] MEDS: TOPIRAMATE 100 MG TAB PO SCH ×2 (08:31→21:36)
[2019-06-08] MEDS: ASPIRIN 81 MG ECTAB PO SCH (08:31)
[2019-06-08] MEDS: ATORVASTATIN 40 MG TAB PO SCH (08:32)
[2019-06-08] MEDS: DOCUSATE SODIUM/SENNA 50/8.6MG TAB PO SCH (08:32)
[2019-06-08] MEDS: METOPROLOL TARTRATE 25 MG TAB PO SCH ×2 (08:32→21:35)
[2019-06-08] MEDS: CITALOPRAM 40 MG TAB PO SCH (08:32)
[2019-06-08] MEDS: POLYETHYLENE (MIRALAX) 17 GM PACK PO SCH (08:33)
[2019-06-08] MEDS: MUPIROCIN 2% OINT 22 GM TUBE TOP SCH ×2 (08:33→21:38)
[2019-06-08] MEDS: DICLOFENAC SOD 1% GEL 100 GM TUBE EXT SCH ×4 (08:33→21:38)
[2019-06-08] MEDS: guaiFENesin 600 MG TABCR PO SCH ×2 (08:33→21:35)
[2019-06-08] MEDS: FUROSEMIDE 20 MG in SYRINGE 0 ML IV SCH ×2 (08:33→17:07)
[2019-06-08] MEDS: MUPIROCIN 2% OINT 22 GM TUBE EXT SCH ×2 (08:34→21:38)
--- NOTE | 2019-06-08 14:57 | Pharmacy Report ---
Glycemic Control Progress Note - Date of Service June 08, 2019 - Scope Glycemic Pharmacist consulted for glycemic control to write orders per [facility] inpatient glycemic control protocol. - Objective Accuchecks BSG(last 24 hours):: 06/07/19 06/07/19 06/08/19 16:21 20:23 00:10 Glucose POC Glucose 114 H 141 H 192 H 06/08/19 06/08/19 06/08/19 04:02 05:33 07:37 Glucose 178 H POC Glucose 175 H 187 H 06/08/19 11:12 Glucose POC Glucose 178 H - Recent Pertinent Medications The patient is currently receiving: * Basal insulin: Lantus 50 units X 1 * Correctional Insulin: Novolog Correction per scale ACHS Goal Range: Low 120 mg/dL - High 160 mg/dL Correction Factor: 30 mg/dL/unit * Prandial insulin: Per carb ratio of 1 unit per 10 grams CHO consumed - Outpatient Anti-Diabetic Meds Lantus 40-65 units HS plus Humalog 10-15 units AC - Assessment & Plan ASSESSMENT: * See progress note from 06/06/19 for more background info, in short: * Pt receiving SQ basal bolus insulin regimen for hyperglycemia secondary to baseline DM (outpatient regimen on hold). Received one dose of 30 mg of prednisone yesterday evening. * Patient is currently receiving an average of 68 units of insulin per day * 50 units of basal insulin * 18 units of prandial/correctional insulin * BSGs ranging 114 - 192 mg/dl over the past 24hrs * Changes needed to insulin regimen: * AM Fasting BSG = 187 mg/dl. This is above goal range for patient based on inpatient targets and co-morbidities. Fasting blood sugar is a little higher since patient received steroids yesterday. Continue previous regimen as expect effects from prednisone to wear off. * Post-prandial BSGs are in range therefore no changes needed to CF/CR. * Total daily dose = ~50 units. PLAN FOR INPATIENT GLYCEMIC CONTROL: * Continuing Lantus 30 units SQ HS (20 units if blood sugar under 140 mg/dL) * Continuing correction factor to of 30 mg/dl/unit * Continuing carb ratio of 1 unit per 10 grams CHO consumed * Continuing goal range of Low 110 mg/dL - High 140 mg/dL RECOMMENDATIONS FOR DISCHARGE: * Patient has experienced low blood sugars at home. Recommend reducing dosing * Consider Lantus 30 units nightly with Novolog 5 units at meals. * Please note that the plan above was derived based on current level of insulin resistance and hospital stress. These recommendations are appropriate for in patient admission only. Plan of care upon discharge will need to be reassessed to avoid potential outpatient hypo/hyperglycemia. Thank you.
--- NOTE | 2019-06-08 16:47 | Hospitalist Progress Note ---
Date of Service June 08, 2019 Assessment & Plan (1) Acute congestive heart failure: Improving. Suspect we are near euvolemia. will give IV lasix again later this afternoon then can likely go to PO lasix in am. BUN/Cr stable. Exam stable/improved. Repeat labs am. Echo with preserved EF thus likely acute diastolic CHF. (2) Pneumonia: Question of. Suspect that his presenting pulmonary symptoms were most c/w CHF/volume overload rather than pneumonia. Could have bronchitis. CXR was not entirely c/w pneumonia. Remains on PO doxy. Complete 7 days in total. Today is day #4 of abx. (3) Status post coronary artery bypass graft: 4-vessel at [facility] [place] within the last few weeks. Cont BB, asa, statin, etc. No ischemic symptoms at this time. Chest "pressure" complaint today has been present for many years per patient and is more consistent with musculoskeletal chest wall pain (was reproducible on exam). Echo w/o wall motion abnormalities. (4) Distal radius fracture, left: Continue splint. Ortho f/u post-d/c. (5) Chronic kidney disease (CKD): stage 3 BMP shows ongoing improved Cr each day BMP in am (6) Diabetes mellitus: Pharmacy managing - appreciate their assistance control is excellent (7) GERD (gastroesophageal reflux disease): cont Famotidine 20 mg daily (8) Hyperlipidemia: Continue atorvastatin 80 mg daily (9) Hypertension: BPs stable/controlled resume imdur today at 1/2 his previous dose since BPs have been low-normal (10) Epistaxis: due to dry air, use of aspirin, etc bactroban ointment to both nares BID nasal saline drops prn has not recurred (11) Rash: improved today s/p prednisone x 1 on 06/07 etiology uncertain. patient convinced the rash was due to "prior chemical castillo" however, the rash was not present earlier this week could have been drug reaction but uncertain follows with dermatology; their notes suggest he has a chronic eczema condition either way the rash is improved today follow (12) DVT prophylaxis: heparin BID PT, OT evals completed - cleared for home anticipate d/c home on 06/09 Subjective patient w/o any new complaints. rash on upper chest is improved. still coughing but during my bedside rounds he had no significant cough. no further nose bleeding. no dyspnea. reports a chest pressure on the left chest that has been present "for years." denies substernal chest pain. LE edema is improved. did well with PT today. tele stable overnight. eating well. Review of Systems Constitutional: no fever, no chills, no fatigue and no anorexia Respiratory: + cough and + sputum production; no dyspnea, no dyspnea on exertion and no hemoptysis Cardiovascular: as per Subjective / HPI and + edema; no radiating jaw, neck or arm pain Gastrointestinal: no abdominal pain Physical Exam Constitutional: well developed and well nourished; no acute distress ENMT: external ear and nose normal, oropharynx normal Nose: no external nose abnormality Respiratory: normal respiratory effort, lungs clear to auscultation Auscultation: no crackles and no wheezes Cardiovascular: Rate/Rhythm: regular rate and regular rhythm Heart Sounds: normal S1 and normal S2; no murmur Vessels: posterior tibial pulses present and dorsalis pedis pulses present; no JVD Extremities: + edema (trace right; 1+ left) Gastrointestinal (Abdomen): normal bowel sounds, soft, nontender, no hepatosplenomegaly Skin: venous stasis changes left leg from midcalf down to ankle/foot; ecchymoses left anterior thigh evolving; prior vein harvest sites on left leg clean; no cellulitis LLE any location; diffuse erythematous rash previously seen on upper chest is now resolved; sternal scar in midline is clean and w/o cellulitis. Psychiatric: A+Ox3, euthymic affect Results & Data Vital Signs (Past 12 Hours) Vital Signs Temp Pulse Pulse Pulse Resp BP Pulse Ox 06/08/19 15:24 36.3 C L 72 18 112/69 99 06/08/19 11:13 36.8 C 69 22 120/77 100 06/08/19 08:00 72 06/08/19 06:48 36.4 C L 80 22 125/73 98 Laboratory Results Laboratory Results - last 24 hr 06/07/19 06/08/19 06/08/19 20:23 00:10 04:02 Sodium Potassium Chloride Carbon Dioxide Anion Gap BUN Creatinine Est Cr Clr Drug Dosing Est GFR ( Amer) Est GFR (Non-Af Amer) BUN/Creatinine Ratio Glucose POC Glucose 141 H 192 H 175 H Calcium 06/08/19 06/08/19 06/08/19 05:33 07:37 11:12 Sodium 135 L Potassium 4.5 Chloride 106 Carbon Dioxide 19 L Anion Gap 10.0 BUN 34 H Creatinine 1.37 Est Cr Clr Drug Dosing 53.4 Est GFR ( Amer) 58.9 Est GFR (Non-Af Amer) 50.8 BUN/Creatinine Ratio 24.7 H Glucose 178 H POC Glucose 187 H 178 H Calcium 9.2 06/08/19 16:16 Sodium Potassium Chloride Carbon Dioxide Anion Gap BUN Creatinine Est Cr Clr Drug Dosing Est GFR ( Amer) Est GFR (Non-Af Amer) BUN/Creatinine Ratio Glucose POC Glucose 146 H Calcium PG Care Time/CCT Total # of Minutes Spent Total Time Spent with Patient: Total time spent is greater than 50% in coordination of care (as documented) at patient's floor/unit and/or counseling patient: (1) Acute congestive heart failure Heart failure type: diastolic Qualified Code(s): I50.31 - Acute diastolic (congestive) heart failure (2) Pneumonia Pneumonia type: due to unspecified organism Laterality: unspecified laterality Lung location: unspecified part of lung Qualified Code(s): J18.9 - Pneumonia, unspecified organism (3) Distal radius fracture, left Encounter type: subsequent encounter Fracture type: closed Fracture morphology: other fracture Fracture healing: with routine healing Qualified Code(s): S52.592D - Other fractures of lower end of left radius, subsequent encounter for closed fracture with routine healing (4) Chronic kidney disease (CKD) Chronic kidney disease stage: stage 3 (moderate) Qualified Code(s): N18.3 - Chronic kidney disease, stage 3 (moderate) (5) Diabetes mellitus Diabetes mellitus type: type 2 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 Diabetes mellitus complication status: with kidney complications Chronic kidney disease stage: stage 3 (moderate) Diabetes mellitus complication detail: with chronic kidney disease Qualified Code(s): E11.22 - Type 2 diabetes mellitus with diabetic chronic kidney disease; N18.3 - Chronic kidney disease, stage 3 (moderate); Z79.4 - 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
[2019-06-08] MEDS: ISOSORBIDE MONO EXTENDED REL 60 MG TABCR PO SCH (17:18)
[2019-06-08] MEDS: INSULIN GLARGINE SOLOSTAR 100 UNITS/ML 3 ML PEN SC SCH (21:37)
[2019-06-09] MEDS: INSULIN ASPART 100 UNITS/ML 3 ML PEN SC SCH ×4 (07:48→20:49)
[2019-06-09] MEDS: HEPARIN SOD 5,000 UNIT/0.5 ML VIAL SQ SCH ×2 (07:50→20:31)
[2019-06-09] MEDS: FUROSEMIDE 20 MG in SYRINGE 0 ML IV SCH ×2 (08:26→17:10)
[2019-06-09] MEDS: TOPIRAMATE 100 MG TAB PO SCH ×2 (08:27→20:30)
[2019-06-09] MEDS: ATORVASTATIN 40 MG TAB PO SCH (08:27)
[2019-06-09] MEDS: POTASSIUM CHLORIDE 20 MEQ TABCR PO SCH (08:27)
[2019-06-09] MEDS: FAMOTIDINE 20 MG TAB PO SCH (08:28)
[2019-06-09] MEDS: CITALOPRAM 20 MG TAB PO SCH (08:28)
[2019-06-09] MEDS: ISOSORBIDE MONO EXTENDED REL 60 MG TABCR PO SCH (08:28)
[2019-06-09] MEDS: DOXYCYCLINE HYCLATE 100 MG CAP PO SCH ×2 (08:28→20:30)
[2019-06-09] MEDS: METOPROLOL TARTRATE 25 MG TAB PO SCH ×2 (08:29→20:29)
[2019-06-09] MEDS: guaiFENesin 600 MG TABCR PO SCH ×2 (08:29→20:28)
[2019-06-09] MEDS: POLYETHYLENE (MIRALAX) 17 GM PACK PO SCH (08:29)
[2019-06-09] MEDS: DOCUSATE SODIUM/SENNA 50/8.6MG TAB PO SCH (08:29)
[2019-06-09] MEDS: MUPIROCIN 2% OINT 22 GM TUBE TOP SCH ×2 (08:30→20:31)
[2019-06-09] MEDS: DICLOFENAC SOD 1% GEL 100 GM TUBE EXT SCH ×4 (08:30→20:32)
[2019-06-09] MEDS: MUPIROCIN 2% OINT 22 GM TUBE EXT SCH ×2 (08:30→20:31)
--- NOTE | 2019-06-09 10:49 | Cardiology Progress Note ---
Date of Service June 09, 2019 Assessment & Plan (1) Fluid overload: He presented with evidence of fluid overload since surgery. That has improved substantially with diuresis. His weight is down somewhere around 5 kg which is consistent with him feeling much better. His kidney function has improved, normalizing as of yesterday. I believe from my standpoint that he is stable for discharge. (2) CAD in [place] artery: He recently underwent CABG x3 on 05/24/19. There is no evidence of this being an ischemic event, his echocardiogram June 06, 2019 showed good left ventricular function and no pericardial effusion. I would not pursue further ischemic evaluation. (3) Hyperlipidemia: He should remain on statin therapy for his coronary artery disease, preferably the maximal tolerated dose, he seems to be doing well on atorvastatin 80 mg daily and should continue it. Subjective He tells me he is feeling well today and he is not having any trouble with shortness of breath and feels that his peripheral edema has improved substantially. He still talks about his prior chemical exposure many many years ago which he blames on his current medical condition. Physical Exam Physical Exam: Constitutional: Alert, cooperative and in no distress. Pulmonary: Clear to auscultation bilaterally. Cardiac: Regular rhythm with no murmur, gallop or rub. Abdomen: Soft, nontender with normal bowel sounds. Extremities: Trace bilateral pretibial edema. Skin: No rash, ecchymoses or petechiae. Results & Data Vital Signs (Past 12 Hours) Vital Signs Temp Pulse Resp BP BP Pulse Ox 06/09/19 07:52 36.7 C 84 22 110/65 96 06/09/19 05:02 37 C 71 22 104/62 97 06/08/19 23:11 36.4 C L 75 18 105/59 L 98 Laboratory Results Intake and Output 06/08/19 06/09/19 06/09/19 22:59 06:59 14:59 Intake Total 600 / 1160 Output Total 550 / 550 Balance 600 / 610 -550 / 610 Intake: Oral 600 / 1160 Output: Urine 550 / 550 Other: Weight 89.2 kg Diagnostic Findings Telemetry: Sinus rhythm rate 70-80, no significant arrhythmia PG Care Time/CCT Total # of Minutes Spent Total Time Spent with Patient: Total time spent is greater than 50% in coordination of care (as documented) at patient's floor/unit and/or counseling patient: (1) Fluid overload Hypervolemia type: unspecified Qualified Code(s): E87.70 - Fluid overload, unspecified (2) Hyperlipidemia Hyperlipidemia type: mixed hyperlipidemia Qualified Code(s): E78.2 - Mixed h yperlipidemia
--- NOTE | 2019-06-09 14:46 | Psychiatric Consultation ---
Date of Consultation June 09, 2019 Impression / Recommendations Impression 74-year-old male admitted medically on 06/05/19 after presenting to the ED with multiple stated medical concerns: productive cough, SOB, chest pain, epistaxis, and concern for fluid overload. Pt has been treated medically for CHF exacerbation. Psychiatric consultation was requested to evaluate patient for "paranoid, delusional thoughts." Case discussed with consulting hospitalist. Collateral was also obtained from patient's , who states the patient has been preoccupied with the belief that he had chemical exposure which is manifesting as sores all over his body, seeping out his hair follicles, and causing his cough. Pt is A&Ox4, though does open verbalize concern that his chemical exposure will eventually lead to his demise if a "water quality analyst" is not able to meet with him. At this point, based on available information, would diagnose patient with delusional disorder, though etiology remains uncertain. Pt has no reported history of similar behaviors, and these beliefs are suspected to have begun 2 months ago. It is reported that patient does not have a history of other psychiatric treatment. He is reportedly taking citalopram as prescribed by his post tensioning ironworker and has been on this medication for several years. As etiology of delusional disorder is unknown, it is not clearly indicated that antipsychotic medications be initiated - therefore no scheduled medication recommendations to provide at this time. Even so, patient is adamantly denying willingness to begin any new medications. Would certainly recommend further psychiatric evaluation/follow-up on an outpatient basis, though patient has also made it clear he is not interested in these services either. As patient is not reporting any SI or other acute safety concerns, an involuntary inpatient psychiatric admission is not indicated. We will provide with outline of recommendations above, as well as offer her information regarding crisis services should concern arise for patient's safety outside of the hospital setting. Dr. Caitlin Robles was directly involved in review and discussion of the patient's case and participated in medical decision making regarding treatment recommendations. Psych History Identifying Data 74-year-old male admitted medically on 06/05/19 after presenting to the ED with various medical concerns: SOB, chest pain, productive cough, epistaxis, and concern for fluid overload. Pt is being treated medically for CHF, pneumonia, and treatment s/p coronary artery bypass graft. Psychiatric consultation was requested to evaluate patient for "paranoid, delusional thoughts" - believing chemical exposure is to blame for numerous medical complaints. Patient is being treated medically for acute CHF. Patient was actually being considered for discharge today; however, had verbalized concern with taking patient home due to what she believes to be delusional beliefs the patient has been verb alizing. Psychiatric consultation was requested to evaluate patient for "paranoid, delusional thoughts". Patient is cooperative with psychiatric evaluation, and this provider is accompanied by psychiatric nurse liaison. Patient informs us that he was admitted due to concerns for cellulitis of his leg, after grafts were use to complete a quadruple bypass the beginning of May. Shortly after patient explained the reason for his admission, he began to verbalize concern over various sores and rashes. Patient states "I got into some chemical quite a few years ago. It was Juan David, that developed chemical on his workers. Patient verbalizes several different chemicals, which he believes he was exposed to, and that it is now leaving his body, causing his current medical issues. Patient states the rashes are related to the chemical seeping out of his pores. He also believes the chemical is seeping through hair follicles, making his hair grow more quickly. Patient states that this chemical exposure occurred prior to 2004, when he states he retired. Patient's concern is increased, as he states his brother 1.5 years ago due to exposure to agent orange. Patient denies any significant mood concerns, and denies history of anxiety and depression. He does admit to having difficulty falling asleep and maintaining sleep. Patient states "I am good if I get an hour." He denies change in appetite; however, states that he is losing 4 pounds a day for the past month. When asked about the presence of auditory or visual hallucinations, patient does admit to seeing "7 angels" as he falls asleep. Patient states that the visions of angels have been occurring for the past 6 months, and only occur in the evening. Patient believes that the presence of the angels is related to the fact that he "was already in [facility]." The patient states that in 1998 he had on the operation table, and for "2-1/2 hours I watched people operate on me. I watched the people tell my family that I had . I even went to [facility]." Patient continues to share his experience, stating that he spoke with his father while in [facility], who told him "Tian, you cannot stay. Go back and tell the story." Patient states he is also been to [place]. But could not stay there, as "the devil told me 'you'll steal all of my girlfriends'." Patient denies paranoia, and any safety concerns. He does admit to increased frustration with his and daughter, stating "they are the crazy ones, they are the depressed once." For the duration of the evaluation, patient continues to verbalize frustrations with "psychiatrists and things like that." Patient denies willingness to consider medications to assist with sleep or thoughts, as he does not believe that there are any current issues. Patient denies suicidal ideation, stating "the Lord has got me, he can take me when it is time." Patient does admit to a history of excessive alcohol use for several decades. He states that for several years he had been consuming 1/5 of whiskey and a case of beer each day. Patient states that he has not consumed that amount in over 3 years, seemingly implying that he has been sober for that time. Patient states that his citalopram was prescribed by a post tensioning ironworker, but he is unclear of the reason for this. He continues to deny any needs or concerns at this time, aside from finding a water quality analyst to speak to about his chemical exposures. Chief Complaint "Well, I had the cellulitis of my leg here. They did a quadruple bypass on May 24, then my leg swelled up and now I have the cellulitis." History of Present Illness Tian Blanchard is a 74-year-old male admitted medically on 06/05/19 after presenting to the ED with various medical complains. Past Psychiatric History Previous Psych History: Psychiatric history is unclear, as patient and deny significant history of depression, anxiety, or thought disorder. It is reported patient was prescribed citalopram several years ago by his post tensioning ironworker. Previous Psych Admissions: Denies History of Previous Suicide Attempt: No Allergies Allergy/AdvReac Type Severity Reaction Status Date / Time morphine AdvReac Severe "STOPS MY Verified 06/05/19 12:16 HEART" hydromorphone [From Dilaudid] AdvReac Intermediate unresponsiv Verified 06/05/19 12:16 eness trazodone AdvReac Intermediate GI UPSET Verified 06/05/19 12:16 diazepam AdvReac Mild HALLUCINATE Verified 06/05/19 12:16 S propoxyphene AdvReac Mild DRUG Verified 06/05/19 12:16 INTOLERANCE Home Medications Home Medications Medication Instructions Recorded Confirmed Type diclofenac sodium [Voltaren] 2 gm TOP QID #100 gm 10/20/18 06/05/19 Rx pen needle, diabetic 31 gauge x #30 ea 12/03/18 06/04/19 Rx 5/" aspirin 81 mg chewable tablet 81 mg PO Q OTHER DAY 02/05/19 06/05/19 History citalopram 20 mg tablet 20 mg PO MOWEFR tab 02/05/19 06/05/19 History nitroglycerin 0.4 mg sublingual 0.4 mg SL Q5M PRN #1 tab 02/05/19 06/05/19 History tablet citalopram [Celexa] 40 mg PO SUTUTHSA 04/21/19 06/05/19 History ranitidine HCl 300 mg tablet 300 mg PO HS #90 tab 05/12/19 06/05/19 Rx furosemide 20 mg tablet 20 mg PO BID #30 tab 05/30/19 06/05/19 Rx melatonin 5 mg PO HS PRN 05/30/19 06/05/19 History metoprolol tartrate 75 mg tablet 75 mg PO BID #60 tab 05/30/19 06/05/19 Rx acetaminophen [Tylenol Extra 1,000 mg PO Q8H PRN 06/05/19 06/05/19 History Strength] atorvastatin [Lipitor] 80 mg PO QAM 06/05/19 06/05/19 History insulin glargine 100 unit/mL (3 40 - 65 units SQ HS ml MDD 65 06/05/19 06/05/19 History mL) subcutaneous pen units insulin lispro 100) 100 unit/mL 20 - 40 units SUBCUT AC ml 06/05/19 06/05/19 History subcutaneous pen isosorbide mononitrate 120 mg PO DAILY 06/05/19 06/05/19 History mupirocin [Centany] 1 appln TOP BID 06/05/19 06/05/19 History pantoprazole [Protonix] 40 mg PO QAM 06/05/19 06/05/19 History polyethylene glycol 3350 [Miralax] 17 gm PO QAM 06/05/19 06/05/19 History potassium chloride [K-Tab] 20 meq PO QAM 06/05/19 06/05/19 History sennosides-docusate sodium [Senna 1 tab PO QAM 06/05/19 06/05/19 History with Docusate Sodium] topiramate [Topamax] 100 mg PO BID 06/05/19 06/05/19 History tramadol [Ultram] 50 mg PO Q6H PRN 06/05/19 06/05/19 History Family History Pt denies known family history of psychiatric conditions Substance Abuse History Denies significant alcohol use in the past 3 years. Reports previous consumption of a 5th of whiskey and a case of beer daily. Pt denies history of formal substance abuse treatment. Personal History Living Arrangements: Home (with ) Patient History Medical History Atypical chest pain (Resolved) Benign colonic polyp (Chronic) CAD in [place] artery (Chronic) Cellulitis Chronic kidney disease (CKD) (Acute) Cognitive disorder (Chronic) Controlled type 2 diabetes mellitus with neurologic complication, with long-term current use of insulin (Resolved) Conversion disorder (Resolved) Diabetes mellitus, type 2 Diabetic peripheral neuropathy (Chronic) Dyslipidemia (Resolved) Esophageal reflux (Chronic) History of colon polyps (Chronic) History of tobacco use (Resolved) Hyperlipidemia (Chronic) Hypertension (Chronic) Kidney stone on right side (Resolved) Migraines, neuralgic (Chronic) Myocardial Infarction (Resolved) 2004--follows with Dr. Mejia Nephrolithiasis (Resolved) Neurological deficit present (Resolved) Neuropathy (Chronic) Osteoarthritis (Chronic) Raynauds phenomenon (Chronic) Stage III chronic kidney disease Tubular adenoma of colon (Resolved) Vitamin D deficiency (Chronic) Wound of left foot (Resolved) Surgical History History of arthroscopy of left knee (Resolved) History of cardiac cath (Resolved) x3-4, last 2014 History of carpal tunnel release of both wrists (Resolved) History of colonoscopy (Resolved) History of heart artery stent (Resolved) x1--1999 History of lithotripsy (Resolved) x2 History of lumbar discectomy (Resolved) x2 History of open reduction and internal fixation (ORIF) procedure (Resolved) left ankle--hardware in place History of right cataract extraction (Resolved) History of tonsillectomy and adenoidectomy (Resolved) Status post uvulopalatopharyngoplasty (Resolved) Family History Father Family history of diabetes mellitus Family hx of colon cancer Other No family history of adverse response to anesthesia Social History Preferred Language: Belarusian Communication Ability: Effective Bandsaw Operator Required: No marital status: Current Living Situation: Spouse Feels Safe at Home: Yes Smoking Status: Former smoker Second Hand Exposure: No ; Hx Alcohol Use: No Hx Substance Use: No Physical Exam Psychiatric: Orientation: alert, oriented x 3 and cooperative (though demonstrates generalized irritability at times) Apperance: appropriately dressed, appropriately groomed and appeared stated age Eye Contact: good eye contact Motor Behavior: no abnormal motor movements (observed while sitting upright in bedside chair) Speech: normal rate/rhythm/volume of speech (irritable tone, expressive speech though not pressured/rapid) Affect: + irritable affect (intermittently, related to times he is verbalizing frustrations ) and mood congruent with affect Mood: no depressed mood and no anxious mood "I'm still think sharply and I'm not depressed" Thought Process: goal directed thought process and + circumstantial thought process; + thought process not linear or logical Thought Content: + preoccupation (with reports of chemical exposure ) and + delusions (reporting previous chemical exposure causing current medical concerns); no hopelessness Suicidal Thoughts: denies suicidal thoughts and denies suicidal intent Homicidal Thoughts: denies homicidal thoughts Hallucinations: no auditory hallucinations and no visual hallucinations Pt does verbalize seeing "seven angels coming for me" when he is sleeping at night - unclear if related to dream state, hypnagogic hallucinations, or true visual hallucinations Cognition: attention grossly intact and language grossly intact Insight: + impaired insight Judgement: + impaired judgement Vital Signs (Past 24 Hours): Last Vital Signs Temp 36.6 C 06/09/19 11:30 Pulse 72 06/09/19 11:30 Resp 18 06/09/19 11:30 BP 151/68 H 06/09/19 11:30 Pulse Ox 99 06/09/19 11:30 Review of Systems Constitutional: reports generalized pain Cardiovascular: reports chest pain Respiratory: reports shortness of breath Gastrointestinal: denied Neurological: denied Psychiatric: denies symptoms other than stated above Total of at least 10 systems reviewed, pertinent positives as above and in HPI. Results & Data Medications Administered Acetaminophen (Tylenol) 650 mg PO Q4H PRN PRN Reason: Pain or Fever Stop: 07/05/19 16:56 Last Admin: 06/05/19 20:49 Dose: 650 mg Documented by: [id number] Aspirin (Ecotrin Ectab) 81 mg PO Q2D [facility] Stop: 07/06/19 08:59 Last Admin: 06/08/19 08:31 Dose: 81 mg Documented by: [id number] Admin: 06/06/19 08:03 Dose: 81 mg Documented by: [id number] Atorvastatin Calcium (Lipitor) 80 mg PO QAM [facility] Stop: 07/06/19 08:59 Last Admin: 06/09/19 08:27 Dose: 80 mg Documented by: [id number] Admin: 06/08/19 08:32 Dose: 80 mg Documented by: [id number] Admin: 06/07/19 08:10 Dose: 80 mg Documented by: [id number] Admin: 06/06/19 08:02 Dose: 80 mg Documented by: [id number] Citalopram Hydrobromide (Celexa) 20 mg PO MoWeFr@0900 [facility] Stop: 07/06/19 08:59 Last Admin: 06/09/19 08:28 Dose: 20 mg Documented by: [id number] Admin: 06/06/19 08:03 Dose: 20 mg Documented by: [id number] Citalopram Hydrobromide (Celexa) 40 mg PO SuTuThSa@0900 [facility] Stop: 07/07/19 08:59 Last Admin: 06/08/19 08:32 Dose: 40 mg Documented by: [id number] Admin: 06/07/19 08:10 Dose: 40 mg Documented by: [id number] Diclofenac Sodium (Voltaren 1% Top) 2 gm EXT QID [facility] Stop: 07/05/19 16:59 Last Admin: 06/09/19 14:06 Dose: Not Given Documented by: [id number] Admin: 06/09/19 08:30 Dose: 2 gm Documented by: [id number] Admin: 06/08/19 21:38 Dose: Not Given Documented by: [id number] Admin: 06/08/19 17:11 Dose: Not Given Documented by: [id number] Admin: 06/08/19 12:00 Dose: Not Given Documented by: [id number] Admin: 06/08/19 08:33 Dose: 2 gm Documented by: [id number] Admin: 06/07/19 20:17 Dose: 2 gm Documented by: [id number] Admin: 06/07/19 17:26 Dose: 2 gm Documented by: [id number] Admin: 06/07/19 12:07 Dose: Not Given Documented by: [id number] Admin: 06/07/19 08:12 Dose: 2 gm Documented by: [id number] Admin: 06/06/19 20:22 Dose: 2 gm Documented by: [id number] Admin: 06/06/19 16:49 Dose: Not Given Documented by: [id number] Admin: 06/06/19 11:46 Dose: Not Given Documented by: [id number] Admin: 06/06/19 08:04 Dose: 2 gm Documented by: [id number] Admin: 06/05/19 20:38 Dose: 2 gm Documented by: [id number] Admin: 06/05/19 18:26 Dose: 2 gm Documented by: [id number] Doxycycline Hyclate (Vibramycin) 100 mg PO BID [facility] Stop: 06/12/19 20:59 Last Admin: 06/09/19 08:28 Dose: 100 mg Documented by: [id number] Admin: 06/08/19 21:36 Dose: 100 mg Documented by: [id number] Admin: 06/08/19 08:30 Dose: 100 mg Documented by: [id number] Admin: 06/07/19 20:17 Dose: 100 mg Documented by: [id number] Famotidine (Pepcid) 20 mg PO QAM [facility] Stop: 07/07/19 08:59 Last Admin: 06/09/19 08:28 Dose: 20 mg Documented by: [id number] Admin: 06/08/19 08:31 Dose: 20 mg Documented by: [id number] Admin: 06/07/19 08:11 Dose: 20 mg Documented by: [id number] Guaifenesin (Mucinex) 1,200 mg PO Q12 [facility] Stop: 07/07/19 20:59 Last Admin: 06/09/19 08:29 Dose: 1,200 mg Documented by: [id number] Admin: 06/08/19 21:35 Dose: 1,200 mg Documented by: [id number] Admin: 06/08/19 08:33 Dose: 1,200 mg Documented by: [id number] Admin: 06/07/19 20:16 Dose: 1,200 mg Documented by: [id number] Heparin Sodium (Porcine) (Heparin Sodium (Porcine)) 5,000 units SQ Q12 [facility] Stop: 07/05/19 20:59 Last Admin: 06/09/19 07:50 Dose: 5,000 units Documented by: [id number] Cosigned by: [id number] Admin: 06/08/19 21:38 Dose: 5,000 units Documented by: [id number] Cosigned by: [id number] Admin: 06/08/19 08:24 Dose: 5,000 units Documented by: [id number] Cosigned by: [id number] Admin: 06/07/19 20:17 Dose: 5,000 units Documented by: [id number] Cosigned by: [id number] Admin: 06/07/19 08:07 Dose: 5,000 units Documented by: [id number] Cosigned by: [id number] Admin: 06/06/19 20:22 Dose: 5,000 units Documented by: [id number] Cosigned by: [id number] Admin: 06/06/19 08:03 Dose: 5,000 units Documented by: [id number] Cosigned by: [id number] Admin: 06/05/19 20:36 Dose: 5,000 units Documented by: [id number] Cosigned by: [id number] Furosemide 20 mg/ Syringe 2 mls @ 4 mls/min IV BID17 [facility] Stop: 07/05/19 18:29 Last Admin: 06/09/19 08:26 Dose: 4 mls/min Documented by: [id number] Admin: 06/08/19 17:07 Dose: 4 mls/min Documented by: [id number] Admin: 06/08/19 08:33 Dose: 4 mls/min Documented by: [id number] Admin: 06/07/19 17:26 Dose: 4 mls/min Documented by: [id number] Admin: 06/07/19 08:12 Dose: 4 mls/min Documented by: [id number] Admin: 06/06/19 16:48 Dose: 4 mls/min Documented by: [id number] Admin: 06/06/19 08:03 Dose: 4 mls/min Documented by: [id number] Admin: 06/05/19 18:25 Dose: 4 mls/min Documented by: [id number] Insulin Aspart (Novolog Flexpen) 0 units SC ACHS [facility] Stop: 07/05/19 17:44 Last Admin: 06/09/19 11:43 Dose: 7 units Documented by: [id number] Cosigned by: [id number] Admin: 06/09/19 07:48 Dose: 6 units Documented by: [id number] Cosigned by: [id number] Admin: 06/08/19 21:37 Dose: 2 units Documented by: [id number] Cosigned by: [id number] Admin: 06/08/19 17:07 Dose: 7 units Documented by: [id number] Cosigned by: [id number] Admin: 06/08/19 11:57 Dose: 9 units Documented by: [id number] Cosigned by: [id number] Admin: 06/08/19 08:24 Dose: 7 units Documented by: [id number] Cosigned by: [id number] Admin: 06/07/19 20:57 Dose: Not Given Documented by: [id number] Cosigned by: [id number] Admin: 06/07/19 17:25 Dose: 6 units Documented by: [id number] Cosigned by: [id number] Admin: 06/07/19 12:03 Dose: 6 units Documented by: [id number] Cosigned by: [id number] Admin: 06/07/19 08:06 Dose: 5 units Documented by: [id number] Cosigned by: [id number] Admin: 06/06/19 20:24 Dose: 2 units Documented by: [id number] Cosigned by: [id number] Admin: 06/06/19 16:48 Dose: 5 units Documented by: [id number] Cosigned by: [id number] Admin: 06/06/19 11:47 Dose: 4 units Documented by: [id number] Cosigned by: [id number] Admin: 06/06/19 08:16 Dose: 11 units Documented by: [id number] Cosigned by: [id number] Admin: 06/05/19 20:37 Dose: 3 units Documented by: [id number] Cosigned by: [id number] Admin: 06/05/19 18:28 Dose: 3 units Documented by: [id number] Cosigned by: [id number] Insulin Glargine (Lantus Solostar Pen) 0 units SC HS [facility]; Protocol Stop: 07/05/19 20:59 Last Admin: 06/08/19 21:37 Dose: 30 units Documented by: [id number] Cosigned by: [id number] Admin: 06/06/19 20:23 Dose: 30 units Documented by: [id number] Cosigned by: [id number] Admin: 06/05/19 20:36 Dose: 40 units Documented by: [id number] Cosigned by: [id number] Isosorbide Mononitrate (Imdur Extended Rel) 60 mg PO QAM [facility] Stop: 07/08/19 16:59 Last Admin: 06/09/19 08:28 Dose: 60 mg Documented by: [id number] Admin: 06/08/19 17:18 Dose: 60 mg Documented by: [id number] Metoprolol Tartrate (Lopressor) 75 mg PO BID [facility] Stop: 07/05/19 20:59 Last Admin: 06/09/19 08:29 Dose: 75 mg Documented by: [id number] Admin: 06/08/19 21:35 Dose: 75 mg Documented by: [id number] Admin: 06/08/19 08:32 Dose: 75 mg Documented by: [id number] Admin: 06/07/19 20:15 Dose: 75 mg Documented by: [id number] Admin: 06/07/19 08:10 Dose: 75 mg Documented by: [id number] Admin: 06/06/19 20:21 Dose: 75 mg Documented by: [id number] Admin: 06/06/19 08:02 Dose: 75 mg Documented by: [id number] Admin: 06/05/19 20:37 Dose: 75 mg Documented by: [id number] Mupirocin (Bactroban 2%) 1 appln TOP BID [facility] Stop: 07/05/19 20:59 Last Admin: 06/09/19 08:30 Dose: 1 appln Documented by: [id number] Admin: 06/08/19 21:38 Dose: 1 appln Documented by: [id number] Admin: 06/08/19 08:33 Dose: 1 appln Documented by: [id number] Admin: 06/07/19 20:18 Dose: 1 appln Documented by: [id number] Admin: 06/07/19 08:13 Dose: 1 appln Documented by: [id number] Admin: 06/06/19 20:22 Dose: 1 appln Documented by: [id number] Admin: 06/06/19 08:02 Dose: 1 appln Documented by: [id number] Admin: 06/05/19 20:36 Dose: 1 appln Documented by: [id number] Mupirocin (Bactroban 2%) 1 appln EXT BID [facility] Stop: 07/07/19 12:44 Last Admin: 06/09/19 08:30 Dose: 1 appln Documented by: [id number] Admin: 06/08/19 21:38 Dose: 1 appln Documented by: [id number] Admin: 06/08/19 08:34 Dose: 1 appln Documented by: [id number] Admin: 06/07/19 20:18 Dose: 1 appln Documented by: [id number] Admin: 06/07/19 15:15 Dose: 1 appln Documented by: [id number] Polyethylene Glycol (Miralax Powder Packet) 17 gm PO QAM [facility] Stop: 07/06/19 08:59 Last Admin: 06/09/19 08:29 Dose: Not Given Documented by: [id number] Admin: 06/08/19 08:33 Dose: Not Given Documented by: [id number] Admin: 06/07/19 08:12 Dose: Not Given Documented by: [id number] Admin: 06/06/19 08:04 Dose: 17 gm Documented by: [id number] Potassium Chloride (Klor-Con M20) 20 meq PO QAM [facility] Stop: 07/06/19 08:59 Last Admin: 06/09/19 08:27 Dose: 20 meq Documented by: [id number] Admin: 06/08/19 08:31 Dose: 20 meq Documented by: [id number] Admin: 06/07/19 08:11 Dose: 20 meq Documented by: [id number] Admin: 06/06/19 08:03 Dose: 20 meq Documented by: [id number] Senna/Docusate Sodium (Senokot S) 1 tab PO QAM [facility] Stop: 07/06/19 08:59 Last Admin: 06/09/19 08:29 Dose: 1 tab Documented by: [id number] Admin: 06/08/19 08:32 Dose: 1 tab Documented by: [id number] Admin: 06/07/19 08:11 Dose: 1 tab Documented by: [id number] Admin: 06/06/19 08:02 Dose: 1 tab Documented by: [id number] Sodium Chloride ([place] Nasal) 2 sprays NA Q1H PRN PRN Reason: nasal dryness Stop: 07/07/19 12:34 Last Admin: 06/07/19 15:17 Dose: 2 sprays Documented by: [id number] Topiramate (Topamax) 100 mg PO BID [facility] Stop: 07/05/19 20:59 Last Admin: 06/09/19 08:27 Dose: 100 mg Documented by: [id number] Admin: 06/08/19 21:36 Dose: 100 mg Documented by: [id number] Admin: 06/08/19 08:31 Dose: 100 mg Documented by: [id number] Admin: 06/07/19 20:19 Dose: 100 mg Documented by: [id number] Admin: 06/07/19 08:10 Dose: 100 mg Documented by: [id number] Admin: 06/06/19 20:22 Dose: 100 mg Documented by: [id number] Admin: 06/06/19 08:04 Dose: 100 mg Documented by: [id number] Admin: 06/05/19 20:37 Dose: 100 mg Documented by: [id number] Coding Level of Care Code 12227 U Intl Hosp Care Lvl 3
--- NOTE | 2019-06-09 16:12 | Hospitalist Progress Note ---
Date of Service June 09, 2019 Assessment & Plan (1) Acute congestive heart failure: Acute component RESOLVED will change back to Lasix 20mg PO BID starting tomorrow morning has follow up arranged with CHF clinic with Shaina DICKSON BUN/Cr stable. Exam stable/improved. Weight down 10-11 lbs Echo with preserved EF thus likely acute diastolic CHF. 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 Suspect that his presenting pulmonary symptoms were most c/w CHF/volume overload rather than pneumonia. Could have bronchitis. CXR was not entirely c/w pneumonia. Remains on PO doxy. Complete 7 days in total. Today is day #5 of abx. will need a few more doses on discharge tomorrow (4) Status post coronary artery bypass graft: 4-vessel at [facility] within the last few weeks. Cont BB, asa, statin, etc. No ischemic symptoms at this time. Chest "pressure" complaint has been present for many years per patient and is more consistent with musculoskeletal chest wall pain (was reproducible on exam). Echo w/o wall motion abnormalities. (5) Distal radius fracture, left: Continue splint. Ortho f/u post-d/c. (6) Chronic kidney disease (CKD): stage 3 BMP shows Cr is stable (7) Diabetes mellitus: Pharmacy managing - appreciate their assistance control is excellent (8) GERD (gastroesophageal reflux disease): cont Famotidine 20 mg daily (9) Hyperlipidemia: Continue atorvastatin 80 mg daily (10) Hypertension: BPs stable/controlled resume imdur today at 1/2 his previous dose since BPs have been low-normal (11) Epistaxis: due to dry air, use of aspirin, etc bactroban ointment to both nares BID nasal saline drops prn has not recurred (12) Rash: improved today s/p prednisone x 1 on 06/07 etiology uncertain. patient convinced the rash was due to "prior chemical castillo" however, the rash was not present earlier this week could have been drug reaction but uncertain follows with dermatology; their notes suggest he has a chronic eczema condition either way the rash is improved for two days follow (13) DVT prophylaxis: heparin BID PT, OT evals completed - cleared for home anticipate d/c home on 06/10 Subjective patient is breathing well today, diuresed about 10 lbs of fluid off, heart failure resolved discussed with Dr. Rivera and Shaina Kumar PA, okay with discharge from their perspective discussed with his , she has concerns about his mental status the prior 4 weeks she said it started prior to his CABG 3 weeks ago he is fixated, obsessed with the idea that chemicals are causing him problems on my visit all he wanted to discuss was exposure to chemicals for 30 years working for [employer] he says that the chemicals are killing him he feels them coming out of his skin, they are in his lungs, in his stool discussed that he has not worked for many years so he would not have any chemicals in his system he said that he wants to see a "chemical doctor" while here, explained that we do not have toxicologists he described a lesion on his neck that is leaking chemicals his says that he will shave his neck hair and have her get a magnifying glass to look for chemicals and hairs growing back he is exhibiting paranoid, delusional thoughts, obsessed with this, cannot focus on true issue which is his heart will ask psychiatry to see the patient to see if they can offer any medication recommendations, further treatment? appreciate psychiatry consult, patient likely has delusional disorder, however, no indication for treatment and patient unwilling to take new medications will try to discharge tomorrow Review of Systems Review of Systems: All systems reviewed & are unremarkable except as noted in HPI & below Respiratory: no cough, no dyspnea and no dyspnea on exertion Cardiovascular: no chest pain and no edema Gastrointestinal: no abdominal pain, no nausea, no vomiting, no constipation and no diarrhea/loose stools Psychiatric: + irritability, + anxiety, + difficulty concentrating and + paranoia; no hallucinations and no substance abuse Physical Exam Constitutional: WD/WN, vitals as above Eyes: PERRL, conjunctivae normal, anicteric sclerae ENMT: external ear and nose normal, oropharynx normal Neck: trachea midline, no thyromegaly Respiratory: normal respiratory effort, lungs clear to auscultation Cardiovascular: RRR, no murmur, no edema Gastrointestinal (Abdomen): normal bowel sounds, soft, nontender, no hepatosplenomegaly Musculoskeletal: no cyanosis or clubbing, extremities motor strength 5/5 Skin: no rashes, warm and dry Neurologic: patellar DTR's 2+ bilat, sensation intact and PERRL, EOMI, accommodation nl, no face palsy, no dysarthria Psychiatric: Orientation: alert and oriented x 3 Apperance: appropriately dressed Eye Contact: good eye contact Motor Behavior: steady gait and station Affect: + labile affect Mood: + irritable mood Thought Content: + obsessions (obsessed with chemicals), + paranoid (convinced chemicals are killing him, conspiracy) and + delusions Hallucinations: no auditory hallucinations and no visual hallucinations Lymphatic: no cervical or axillary lymphadenopathy Results & Data Vital Signs (Past 12 Hours) Vital Signs Temp Pulse Pulse Resp BP BP Pulse Ox 06/09/19 15:39 36.9 C 74 18 122/68 97 06/09/19 11:30 36.6 C 72 18 151/68 H 99 06/09/19 07:52 36.7 C 84 22 110/65 96 06/09/19 07:00 76 06/09/19 05:02 37 C 71 22 104/62 97 Laboratory Results Laboratory Results - last 24 hr 06/08/19 06/08/19 06/09/19 16:16 20:40 07:35 POC Glucose 146 H 194 H 146 H 06/09/19 11:24 POC Glucose 130 H Medications Administered Current Inpatient Medications Acetaminophen (Tylenol) 650 mg PO Q4H PRN PRN Reason: Pain or Fever Stop: 07/05/19 16:56 Last Admin: 06/05/19 20:49 Dose: 650 mg Documented by: Al Hydrox/Mg Hydrox/Simethicone (Maalox) 15 ml PO Q4H PRN PRN Reason: Dyspepsia Stop: 07/05/19 16:56 Aspirin (Ecotrin Ectab) 81 mg PO Q2D [facility] Stop: 07/06/19 08:59 Last Admin: 06/08/19 08:31 Dose: 81 mg Documented by: Atorvastatin Calcium (Lipitor) 80 mg PO QAM [facility] Stop: 07/06/19 08:59 Last Admin: 06/09/19 08:27 Dose: 80 mg Documented by: Citalopram Hydrobromide (Celexa) 20 mg PO MoWeFr@0900 [facility] Stop: 07/06/19 08:59 Last Admin: 06/09/19 08:28 Dose: 20 mg Documented by: Citalopram Hydrobromide (Celexa) 40 mg PO SuTuThSa@0900 [facility] Stop: 07/07/19 08:59 Last Admin: 06/08/19 08:32 Dose: 40 mg Documented by: Dextrose (Dextrose 50%) 25 - 50 ml IV UD PRN; Protocol PRN Reason: Hypoglycemia Protocol Stop: 07/05/19 16:56 Diclofenac Sodium (Voltaren 1% Top) 2 gm EXT QID [facility] Stop: 07/05/19 16:59 Last Admin: 06/09/19 14:06 Dose: Not Given Documented by: Doxycycline Hyclate (Vibramycin) 100 mg PO BID [facility] Stop: 06/12/19 20:59 Last Admin: 06/09/19 08:28 Dose: 100 mg Documented by: Famotidine (Pepcid) 20 mg PO QAM [facility] Stop: 07/07/19 08:59 Last Admin: 06/09/19 08:28 Dose: 20 mg Documented by: Glucagon (Glucagen) 1 mg SQ UD PRN; Protocol PRN Reason: Hypoglycemia Protocol Stop: 07/05/19 16:56 Glucose (Dex4 Glucose) 4 - 8 tabs PO UD PRN; Protocol PRN Reason: Hypoglycemia Protocol Stop: 07/05/19 16:56 Glucose (Glucose 40%) 15 - 30 gm PO UD PRN; Protocol PRN Reason: Hypoglycemia Protocol Stop: 07/05/19 16:56 Guaifenesin (Mucinex) 1,200 mg PO Q12 [facility] Stop: 07/07/19 20:59 Last Admin: 06/09/19 08:29 Dose: 1,200 mg Documented by: Heparin Sodium (Porcine) (Heparin Sodium (Porcine)) 5,000 units SQ Q12 [facility] Stop: 07/05/19 20:59 Last Admin: 06/09/19 07:50 Dose: 5,000 units Documented by: Furosemide 20 mg/ Syringe 2 mls @ 4 mls/min IV BID17 [facility] Stop: 07/05/19 18:29 Last Admin: 06/09/19 08:26 Dose: 4 mls/min Documented by: Insulin Aspart (Novolog Flexpen) 0 units SC ACHS [facility] Stop: 07/05/19 17:44 Last Admin: 06/09/19 11:43 Dose: 7 units Documented by: Insulin Glargine (Lantus Solostar Pen) 0 units SC HS [facility]; Protocol Stop: 07/05/19 20:59 Last Admin: 06/08/19 21:37 Dose: 30 units Documented by: Isosorbide Mononitrate (Imdur Extended Rel) 60 mg PO QAM [facility] Stop: 07/08/19 16:59 Last Admin: 06/09/19 08:28 Dose: 60 mg Documented by: Magnesium Hydroxide (Milk Of Magnesia) 30 ml PO Q12H PRN PRN Reason: Constipation Stop: 07/05/19 16:56 Metoprolol Tartrate (Lopressor) 75 mg PO BID [facility] Stop: 07/05/19 20:59 Last Admin: 06/09/19 08:29 Dose: 75 mg Documented by: Miscellaneous (Carbohydrates For Hypoglycemia) 15 - 30 gm PO UD PRN PRN Reason: Hypoglycemia Protocol Stop: 07/05/19 16:56 Miscellaneous Information (Consult Glycemic Management Pharmacy) 1 ea N/A UD PRN; Protocol PRN Reason: Consult Stop: 07/05/19 17:22 Mupirocin (Bactroban 2%) 1 appln TOP BID [facility] Stop: 07/05/19 20:59 Last Admin: 06/09/19 08:30 Dose: 1 appln Documented by: Mupirocin (Bactroban 2%) 1 appln EXT BID [facility] Stop: 07/07/19 12:44 Last Admin: 06/09/19 08:30 Dose: 1 appln Documented by: Nitroglycerin (Nitrostat) 0.4 mg SL Q5M PRN PRN Reason: Chest Pain Stop: 01/18/20 16:56 Ondansetron HCl (Zofran) 4 mg IV Q6H PRN PRN Reason: Nausea Stop: 07/05/19 16:56 Polyethylene Glycol (Miralax Powder Packet) 17 gm PO QAM [facility] Stop: 07/06/19 08:59 Last Admin: 06/09/19 08:29 Dose: Not Given Documented by: Polyethylene Glycol (Miralax Powder Packet) 17 gm PO DAILY PRN PRN Reason: Constipation Stop: 07/05/19 16:56 Potassium Chloride (Klor-Con M20) 20 meq PO QAM [facility] Stop: 07/06/19 08:59 Last Admin: 06/09/19 08:27 Dose: 20 meq Documented by: Senna/Docusate Sodium (Senokot S) 1 tab PO QAM [facility] Stop: 07/06/19 08:59 Last Admin: 06/09/19 08:29 Dose: 1 tab Documented by: Sodium Chloride ([place] Nasal) 2 sprays NA Q1H PRN PRN Reason: nasal dryness Stop: 07/07/19 12:34 Last Admin: 06/07/19 15:17 Dose: 2 sprays Documented by: Topiramate (Topamax) 100 mg PO BID [facility] Stop: 07/05/19 20:59 Last Admin: 06/09/19 08:27 Dose: 100 mg Documented by: Tramadol HCl (Ultram) 50 mg PO Q6H PRN PRN Reason: pain Stop: 07/05/19 16:56 PG Care Time/CCT Total # of Minutes Spent Total Time Spent with Patient: Total time spent is greater than 50% in coordination of care (as documented) at patient's floor/unit and/or counseling patient: (1) Diabetes mellitus Chronic kidney disease stage: stage 3 (moderate) Diabetes mellitus complication detail: with chronic kidney disease Diabetes mellitus complication status: with kidney complications Diabetes mellitus rn long term care insulin use: with assisted use Diabetes mellitus type: type 2 Qualified Code(s): E11.22 - Type 2 diabetes mellitus with diabetic chronic kidney disease; N18.3 - Chronic kidney disease, stage 3 (moderate); 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 (2) Acute congestive heart failure Heart failure type: diastolic Qualified Code(s): I50.31 - Acute diastolic (congestive) heart failure (3) Distal radius fracture, left Encounter type: subsequent encounter Fracture healing: with routine healing Fracture morphology: other fracture Fracture type: closed Qualified Code(s): S52.592D - Other fractures of lower end of left radius, subsequent encounter for closed fracture with routine healing (4) Hyperlipidemia Hyperlipidemia type: mixed hyperlipidemia Qualified Code(s): E78.2 - Mixed hyperlipidemia (5) Chronic kidney disease (CKD) Chronic kidney disease stage: stage 3 (moderate) Qualified Code(s): N18.3 - Chronic kidney disease, stage 3 (moderate) (6) GERD (gastroesophageal reflux disease) Esophagitis presence: esophagitis presence not specified Qualified Code(s): K21.9 - Gastro-esophageal reflux disease without esophagitis (7) Hypertension Hypertension type: essential hypertension Qualified Code(s): I10 - Essential (primary) hypertension (8) Pneumonia Laterality: unspecified laterality Lung location: unspecified part of lung Pneumonia type: due to unspecified organism Qualified Code(s): J18.9 - Pneumonia, unspecified organism
[2019-06-09] MEDS: INSULIN GLARGINE SOLOSTAR 100 UNITS/ML 3 ML PEN SC SCH (20:47)
[2019-06-10] MEDS: METOPROLOL TARTRATE 25 MG TAB PO SCH (08:06)
[2019-06-10] MEDS: MUPIROCIN 2% OINT 22 GM TUBE EXT SCH (08:06)
[2019-06-10] MEDS: MUPIROCIN 2% OINT 22 GM TUBE TOP SCH (08:06)
[2019-06-10] MEDS: FAMOTIDINE 20 MG TAB PO SCH (08:06)
[2019-06-10] MEDS: POLYETHYLENE (MIRALAX) 17 GM PACK PO SCH (08:07)
[2019-06-10] MEDS: POTASSIUM CHLORIDE 20 MEQ TABCR PO SCH (08:07)
[2019-06-10] MEDS: DOCUSATE SODIUM/SENNA 50/8.6MG TAB PO SCH (08:07)
[2019-06-10] MEDS: DOXYCYCLINE HYCLATE 100 MG CAP PO SCH (08:07)
[2019-06-10] MEDS: guaiFENesin 600 MG TABCR PO SCH (08:07)
[2019-06-10] MEDS: CITALOPRAM 40 MG TAB PO SCH (08:07)
[2019-06-10] MEDS: TOPIRAMATE 100 MG TAB PO SCH (08:07)
[2019-06-10] MEDS: ATORVASTATIN 40 MG TAB PO SCH (08:07)
[2019-06-10] MEDS: ASPIRIN 81 MG ECTAB PO SCH (08:07)
[2019-06-10] MEDS: HEPARIN SOD 5,000 UNIT/0.5 ML VIAL SQ SCH (08:08)
[2019-06-10] MEDS: ISOSORBIDE MONO EXTENDED REL 60 MG TABCR PO SCH (08:08)
[2019-06-10] MEDS: DICLOFENAC SOD 1% GEL 100 GM TUBE EXT SCH ×2 (08:08→14:31)
[2019-06-10] MEDS: INSULIN ASPART 100 UNITS/ML 3 ML PEN SC SCH ×2 (08:08→12:46)
[2019-06-10] MEDS ORDERED: FUROSEMIDE 20 MG TAB PO SCH (09:00)
--- NOTE | 2019-06-15 21:30 | Discharge Summary ---
Date of Service June 10, 2019 Admission HPI Per Admitting Provider Tian Blanchard is a 74-year-old male admitted medically on 06/05/19 after presenting to the ED with various medical complains. Principal Diagnosis Acute CHF Discharge Exam Constitutional: WD/WN, vitals as above, no acute distress, cooperative Eyes: EOM intact bilaterally; no conjunctival abnormality ENMT: external ear and nose normal, oropharynx normal Neck: trachea midline, no thyromegaly + abnormal visual inspection (Wound on posterior neck) Respiratory: normal respiratory effort, lungs clear to auscultation no respiratory distress Cardiovascular: Rate/Rhythm: regular rhythm and + tachycardic Heart Sounds: normal S1 and normal S2 Extremities: + edema (1+ up to knee) Gastrointestinal (Abdomen): Inspection/Auscultation: abdomen normal to inspection; abdomen not distended Musculoskeletal: no cyanosis or clubbing, extremities motor strength 5/5 Skin: no rashes, warm and dry Neurologic: moves all extremities and awake Psychiatric: Orientation: alert, oriented to person and cooperative Discharge Data Allergies Allergy/AdvReac Type Severity Reaction Status Date / Time morphine AdvReac Severe "STOPS MY Verified 06/14/19 08:08 HEART" hydromorphone [From Dilaudid] AdvReac Intermediate unresponsiv Verified 06/14/19 08:08 eness trazodone AdvReac Intermediate GI UPSET Verified 06/14/19 08:08 diazepam AdvReac Mild HALLUCINATE Verified 06/14/19 08:08 S propoxyphene AdvReac Mild DRUG Verified 06/14/19 08:08 INTOLERANCE Consultations 06/05/19 14:09 ED Decision to Admit Stat 06/05/19 16:57 Consult Cardiology Routine 06/09/19 11:42 Consult Psychiatry Routine Ordered Studies 06/05/19 11:19 US venous doppler LE BI Stat Hospital Course (1) Acute congestive heart failure: Acute component RESOLVED will change back to Lasix 20mg PO BID at discarge has follow up arranged with CHF clinic with Shaina DICKSON BUN/Cr stable. Exam stable/improved. Weight down 10-11 lbs Echo with preserved EF thus likely acute diastolic CHF. 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 speaks of various people he knows who have from cancer related to the chemicals paranoid, says that the companies know, it is a conspiracy he says he is filled with the chemicals, leaking out of wound in his neck, they are in his lungs, stool discussed with him that we do not have any type of landcare facilitator, rare specialty that he would need to seek out at tertiary care appreciate psychiatric consultation, has delusional disorder no indication that he is a harm to himself or others, no indication for scheduled anti-psychotics at this time also, patient unwilling to take new medications and also unlikely to follow up with outpatient psychiatry his was updated over phone (3) Pneumonia: Question of. Suspect that his presenting pulmonary symptoms were most c/w CHF/volume overload rather than pneumonia. Could have bronchitis. CXR was not entirely c/w pneumonia. Remains on PO doxy. Complete 7 days in total. Today is day #5 of abx. will need a few more doses on discharge (4) Status post coronary artery bypass graft: 4-vessel at [facility] within the last few weeks. Cont BB, asa, statin, etc. No ischemic symptoms at this time. Chest "pressure" complaint has been present for many years per patient and is more consistent with musculoskeletal chest wall pain (was reproducible on exam). Echo w/o wall motion abnormalities. (5) Distal radius fracture, left: Continue splint. Ortho f/u post-d/c. (6) Chronic kidney disease (CKD): stage 3 BMP shows Cr is stable (7) Diabetes mellitus: Pharmacy managing - appreciate their assistance control is excellent (8) GERD (gastroesophageal reflux disease): cont Famotidine 20 mg daily (9) Hyperlipidemia: Continue atorvastatin 80 mg daily (10) Hypertension: BPs stable/controlled resume imdur today at 1/2 his previous dose since BPs have been low-normal (11) Epistaxis: due to dry air, use of aspirin, etc bactroban ointment to both nares BID nasal saline drops prn has not recurred (12) Rash: improved today s/p prednisone x 1 on 06/07 etiology uncertain. patient convinced the rash was due to "prior chemical castillo" however, the rash was not present earlier this week could have been drug reaction but uncertain follows with dermatology; their notes suggest he has a chronic eczema condition either way the rash is improved for two days follow (13) DVT prophylaxis: heparin BID PT, OT evals completed - cleared for home Total Time Total Time Spent Total Time Spent (In Minutes): 35 Total Time Includes: Examination of the Patient, Discharge Planning and Medication Reconciliation Discharge Plan Discharge Items Patient Disposition: Home - Home Health Services Reason For Visit: ACUTE CHF EXACERBATION,ELEVATED TROPONIN Discharge Diagnosis: Acute CHF exacerbation, elevated troponin Activity: Resume your previous activity Non-emergency contact: Primary Care Provider Call non-emergency contact if: you have any medication questions Follow-up/Referrals: Fox Moran MD [Primary Care Provider] - 06/16/19 2:30 pm (Please, follow up at Dr. Moran's office with his associate, Allison Gonzalez PA-C, on SundayJune 16 at 2:30 pm. *If you need to change this appointment, call the office at [phone].) Shaina Kumar PA-C [Physician Information Systems Analyst] - 06/19/19 10:30 am (Congestive Heart Failure Program Appointment Information Early follow up is essential to managing your heart failure. An appointment has been scheduled for you with the [facility] Heart Failure Program within 7 days of discharge. Anticipate this visit to be 30-60 minutes long. Please expect a tire service supervisor phone call from one of our nurses approximately 48 hours from discharge. They will also be placing an order for lab work to be completed 1-2 days prior to your heart failure follow up appointment. Please be sure to have this done so we can go over the results when you come in. Office Location The cardiology office building is located in front of the hospital at [address] Bring the following with you to your follow-up doctor appointments: Please bring your daily weight log any discharge paperwork all of your medication bottles with you to this visit. ) Diet: Carb Consistent or DM2, Heart Healthy and Low Sodium (2gm) Fluids: 1200ml (5 cups) Addtl Attending Provider Instructions: You have been hospitalized for an acute medical problem. During your stay at [facility], we have made an effort to correct the problem that brought you to the hospital while keeping you as comfortable as possible. Medications were used to bring your condition under control and your discharge instructions will include directions for any medications you should take after leaving the hospital. Please make sure you see your Primary Care Provider as part of your follow up plan. Addtl Package Wrapper Provider Instructions: Call your Primary Care doctor if any of the following symptoms or problems start or get worse: * Shortness of breath or difficulty breathing * Wake up at night short of breath * Chest pain * Cough * Swelling of your hands, feet, or legs * More fatigued or tired with your normal activity * Palpitations - sudden fast heart beats WEIGHT * Weigh yourself every morning after using the bathroom. * Use the same scale. * Wear the same amount of clothing. * Write your weight down on a chart. * Call your Primary Care doctor if you gain more than 2-3 pounds in 1-2 days. MEDICATIONS * Use this discharge instruction sheet for medication instructions. * Take your medications at the time your doctor ordered. * Do not skip a dose of your medicines. * If you miss a dose of medicine, take it as soon as possible, but DO NOT DOUBLE A DOSE. * Read your medicine information when you get home. * Know all of the side effects of your medicine. If in doubt, ask your pharmacist * Call your Primary Care doctor's office if you have any side effects. * Be sure all of your doctors know what medicine and herbs you take (including cold, flu, and herbal medicine). Take the following with you to your follow-up doctor appointments: * Weight Chart * Medication List * List of questions Do not drink excessive alcohol, beer or wine. Pending Studies at Discharge: No Stand-Alone Forms: My [facility] [employer], Smoking Cessation Medications and DC Order Prescriptions: Continued ranitidine HCl 300 mg tablet 300 mg PO HS Qty: 90 RF: 3 insulin lispro [Humalog KwikPen Insulin] 100 unit/mL insulin pen 20 - 40 units SUBCUT AC RF: 0 Lantus Solostar U-100 Insulin 100 unit/mL (3 mL) insulin pen 40 - 65 units SQ HS MDD 65 units RF: 0 metoprolol tartrate 75 mg tablet 75 mg PO BID Qty: 60 RF: 2 (DME) pen needle, diabetic [BD Ultra-Fine Short Pen Needle] 31 gauge x 5/16" needle See Dose Instructions .ROUTE .MEDSUPPLY Qty: 30 RF: 0 nitroglycerin [Nitrostat] 0.4 mg tablet, sublingual 0.4 mg SL Q5M PRN (Reason: Chest Pain) Qty: 1 RF: 0 aspirin 81 mg tablet,chewable 81 mg PO Q OTHER DAY RF: 0 citalopram [Celexa] 20 mg tablet 20 mg PO MOWEFR RF: 0 diclofenac sodium [Voltaren] 1 % gel 2 gm TOP QID Qty: 100 RF: 0 melatonin 5 mg capsule 5 mg PO HS PRN (Reason: Insomnia) RF: 0 sennosides-docusate sodium [Senna with Docusate Sodium] 8.6-50 mg tablet 1 tab PO QAM RF: 0 tramadol [Ultram] 50 mg tablet 50 mg PO Q6H PRN (Reason: pain) RF: 0 acetaminophen [Tylenol Extra Strength] 500 mg tablet 1,000 mg PO Q8H PRN (Reason: Pain) RF: 0 pantoprazole [Protonix] 40 mg tablet,delayed release (DR/EC) 40 mg PO QAM RF: 0 mupirocin [Centany] 2 % ointment 1 appln TOP BID RF: 0 polyethylene glycol 3350 [Miralax] 17 gram/dose powder 17 gm PO QAM RF: 0 topiramate [Topamax] 100 mg tablet 100 mg PO BID RF: 0 Discontinued isosorbide mononitrate 120 mg tablet extended release 24 hr 120 mg PO DAILY RF: 0 No Action isosorbide mononitrate 60 mg tablet extended release 24 hr 60 mg PO QAM Qty: 90 RF: 3 atorvastatin [Lipitor] 80 mg tablet 80 mg PO QAM Qty: 90 RF: 3 citalopram [Celexa] 40 mg tablet 40 mg PO SUTUTHSA Qty: 90 RF: 3 furosemide [Lasix] 20 mg tablet 20 mg PO BID Qty: 90 RF: 3 potassium chloride [K-Tab] 20 mEq tablet extended release 20 meq PO QAM Qty: 90 RF: 3 pantoprazole 40 mg Tablet,Delayed Release (Dr/Ec) 40 mg PO DAILY RF: 0 Discharge Orders: Discharge Order (Routine); Ordered 06/10/19 Ordered By: Sid Ruiz/Other Patient Handouts: Heart Failure, Diabetes Heart Disease, Heart Failure Warning Signs, Diabetes Healthy Meals Admission Data Admit Date/Time: 06/05/19 15:40 Attending Provider: Sid No Admit Provider: Chuck Garnett Primary Care Provider: Fox Moran Other Providers: Chuck Garnett ; Julián Rivera ; [facility],Home [facility] ; Caitlin Robles Other Interventions: Discharge Summary Assessment (RN) Last Done: 06/10/19 17:02 DC Date/Time DO NOT enter until pt leaves facility: 06/10/19 17:44
== END 2019-06-10 17:44 | disposition home health service (06) | DRG 291 ==
LOC: ED 10:28 → SUATTDRO 15:40 → 2S 15:40

== ENCOUNTER 2019-06-14 07:36 | Inpatient (IN) ==
[2019-06-14] MEDS ORDERED: ASPIRIN CHEW 324 MG PO STA (07:51)
--- NOTE | 2019-06-14 08:23 | XRay Report ---
XR chest 1V portable CLINICAL HISTORY: Chest Pain COMPARISON STUDY: Chest CT May 16, 2019. Chest radiograph June 06, 2019. FINDINGS: Median sternotomy wires and clips from bypass grafting are noted. There is moderate cardiom egaly without evidence for pulmonary edema. Minimal left basilar opacity favors atelectasis. There is no consolidation to suggest pneumonia. Patient is mildly rotated. IMPRESSION: No acute cardiopulmonary findings. ACT 112: Negative or not required by law. Electronically signed by: Barber Finnegan M.D. 06/14/2019 8:21 AM
[2019-06-14 08:36] LABS: Basophils # (auto) 0.01 K/uL (0-0.2); Basophils % (auto) 0.1 %; Eosinophils # (auto) 0.05 K/uL (0-0.5); Eosinophils % (auto) 0.7 %; Hematocrit (blood only) 35.8 % (42-52); Hemoglobin 11.9 g/dL (14.0-18.0); Immature Granulocytes # (auto) 0.07 K/uL (0.00-0.02); Lymphocytes # (auto) 0.15 K/uL (1.2-3.4); Lymphocytes % (auto) 2.1 %; Mean Corpuscular Hemoglobin 32.2 pg (25-34); Mean Corpuscular Hgb Conc 33.2 g/dL (32-36); Mean Corpuscular Volume 96.8 fL (80-100); Monocytes # (auto) 0.18 K/uL (0.11-0.59); Monocytes % (auto) 2.5 %; Neutrophils # (auto) 6.78 K/uL (1.4-6.5); Neutrophils % (auto) 93.6 %; Platelet Count 202 K/uL (130-400); RDW Coefficient of Variation 14.4 % (11.5-14.5); RDW Standard Deviation 50.8 fL (36.4-46.3); White Blood Count 7.24 K/uL (4.8-10.8)
[2019-06-14 08:47] LABS: INR 1.1 (0.9-1.1); Partial Thromboplastin Ratio 0.9; Partial Thromboplastin Time 23.1 Seconds (21.0-31.0); Prothrombin Time 10.9 Seconds (9.0-12.0)
[2019-06-14 08:54] LABS: Alanine Aminotransferase 44 U/L (12-78); Albumin Level 3.2 gm/dl (3.4-5.0); Aspartate Aminotransferase 26 U/L (15-37); BUN Creatinine Ratio 16.4 (10-20); Blood Urea Nitrogen 24 mg/dl (7-18); Calcium 8.7 mg/dl (8.5-10.1); Carbon Dioxide 20 mmol/L (21-32); Chloride 106 mmol/L (98-107); Creatinine Clr Calc Pharmacy 50.8 ml/min; Est GFR (African American) 54.1; Est GFR (Non-African American) 46.7; Glucose 194 mg/dl (70-99); Lipase 120 U/L (73-393); Potassium 3.9 mmol/L (3.5-5.1); Sodium 136 mmol/L (136-145)
--- NOTE | 2019-06-14 08:55 | CT Scan Report ---
CT OF THE HEAD WITHOUT CONTRAST CLINICAL HISTORY: Headache. COMPARISON STUDY: Head CT T May 14, 2019. MRI of the brain May 15, 2019. CT DOSE: 537.48 mGy.cm TECHNIQUE: Helical axial images of the head were obtained without IV contrast. Automated exposure con trol was utilized for the study. A dose lowering technique was utilized adhering to the principles o f ALARA. FINDINGS: No acute intracranial hemorrhage, midline shift or mass effect is present. The ventricular system is unremarkable. The basilar cisterns are patent. No extra-axial collections are present. Ther e are no findings to suggest acute dural sinus thrombosis or acute territorial infarct. No significan t calvarial abnormalities are present. Postoperative findings within the sinuses are noted. There is no evidence for sinusitis by CT. IMPRESSION: No acute intracranial findings. ACT 112: Negative or not required by law. Electronically signed by: Barber Finnegan M.D. 06/14/2019 8:53 AM
[2019-06-14 08:59] LABS: Albumin Globulin Ratio 0.9 (0.9-2); Alkaline Phosphatase 150 U/L (45-117); Bilirubin,Total 0.9 mg/dl (0.2-1); Globulin 3.6 gm/dl (2.5-4.0); Total Protein 6.8 gm/dl (6.4-8.2); Troponin I < 0.015 ng/ml (0-0.045)
[2019-06-14] MEDS ORDERED: SODIUM CHLORIDE 0.9% 1000ML 500 ML IV ONE (09:07)
[2019-06-14] MEDS ORDERED: cefTRIAXone SODIUM 1,000 MG/50 ML BAG IV STA (09:16)
[2019-06-14 09:40] LABS: Appearance Urine Clear (Clear); Bilirubin Urine Negative (Negative); Blood Urine Negative (Negative); Color Urine Yellow; Glucose Urine UA Negative (Negative); Ketones Urine Negative (Negative); Leukocyte Esterase Urine Negative (Negative); Nitrite Urine Negative (Negative); Protein Urine Negative (Negative); Specific Gravity Urine 1.018 (1.000-1.030); Urobilinogen Urine Negative (Negative)
[2019-06-14] MEDS ORDERED: GLUCAGON FOR INJ 1 MG VIAL SQ PRN (11:21)
[2019-06-14] MEDS ORDERED: ONDANSETRON INJ 2 MG/ML 2 ML VIAL IV PRN (11:21)
[2019-06-14] MEDS ORDERED: CARBOHYDRATES FOR HYPOGLYCEMIA PO PRN (11:21)
[2019-06-14] MEDS ORDERED: DEXTROSE 50% 50 ML SYRINGE IV PRN (11:21)
[2019-06-14] MEDS ORDERED: GLUCOSE 10 TABS/TUBE PO PRN (11:21)
[2019-06-14] MEDS ORDERED: GLUCOSE 40% GEL 15 GM TUBE PO PRN (11:21)
[2019-06-14] MEDS ORDERED: PHARMACY GLYCEMIC MGMT CONSULT PRN (12:02)
[2019-06-14] MEDS: CITALOPRAM 40 MG TAB PO SCH (12:27)
--- NOTE | 2019-06-14 13:25 | Emergency Department Note ---
Entered by Antoinette Adler acting as a scribe for History of Present Illness General Chief complaint: Headache Stated complaint: Head caving in, Bugs coming out lungs Time Seen by Provider: 06/14/19 07:38 Source: patient History of Present Illness Onset (ago): hour(s) 5 Location: head Severity: similar to prior episodes Pain Consistency: + other (persistent) Quality: + other (feels like his "whole head is caving in") Associated symptoms: + chest pain, + cough, + shortness of breath and + other (positive feels like "lungs are caving in"; positive feels like "head is shrinking"; positive "coughing up bugs") The patient is a 74 year old male who presents to the Emergency Room with complaints of a persistent headache that began at 0300 this morning, approximately 5 hours prior to arrival. The patient states that he feels like his "whole head is caving in" and states that it feels as though his "head is shrinking". The patient reports chest pain and shortness of breath during this time. He states that it feels like his "lungs are caving in". The patient states that he "got into chemicals" and since that time has been "coughing stuff out" of his lungs that "is alive and looks like bugs". The patient states that his chest pain and shortness of breath are similar to his prior heart attack. The patient denies abdominal pain and urinary symptoms. The patient states that he was just seen in the ED 4 days ago for left leg cellulitis. He reports that he had a quadruple bypass approximately 3 weeks ago. Home Medications Home Medications Medication Instructions Recorded Confirmed Type diclofenac sodium [Voltaren] 2 gm TOP QID #100 gm 10/20/18 06/14/19 Rx pen needle, diabetic 31 gauge x #30 ea 12/03/18 06/14/19 Rx 5/16" aspirin 81 mg chewable tablet 81 mg PO Q OTHER DAY 02/05/19 06/14/19 History citalopram 20 mg tablet 20 mg PO MOWEFR tab 02/05/19 06/14/19 History nitroglycerin 0.4 mg sublingual 0.4 mg SL Q5M PRN #1 tab 02/05/19 06/14/19 History tablet ranitidine HCl 300 mg tablet 300 mg PO HS #90 tab 05/12/19 06/14/19 Rx melatonin 5 mg PO HS PRN 05/30/19 06/14/19 History metoprolol tartrate 75 mg tablet 75 mg PO BID #60 tab 05/30/19 06/14/19 Rx acetaminophen [Tylenol Extra 1,000 mg PO Q8H PRN 06/05/19 06/14/19 History Strength] insulin glargine 100 unit/mL (3 40 - 65 units SQ HS ml MDD 65 06/05/19 06/14/19 History mL) subcutaneous pen units insulin lispro 100) 100 unit/mL 20 - 40 units SUBCUT AC ml 06/05/19 06/14/19 History subcutaneous pen mupirocin [Centany] 1 appln TOP BID 06/05/19 06/14/19 History pantoprazole [Protonix] 40 mg PO QAM 06/05/19 06/14/19 History polyethylene glycol 3350 [Miralax] 17 gm PO QAM 06/05/19 06/14/19 History sennosides-docusate sodium [Senna 1 tab PO QAM 06/05/19 06/14/19 History with Docusate Sodium] topiramate [Topamax] 100 mg PO BID 06/05/19 06/14/19 History tramadol [Ultram] 50 mg PO Q6H PRN 06/05/19 06/14/19 History atorvastatin 80 mg tablet 80 mg PO QAM #90 tab 06/12/19 06/14/19 Rx citalopram 40 mg tablet 40 mg PO SUTUTHSA #90 tab 06/12/19 06/14/19 Rx furosemide 20 mg tablet 20 mg PO BID #90 tab 06/12/19 06/14/19 Rx isosorbide mononitrate 60 mg 60 mg PO QAM #90 tab 06/12/19 06/14/19 Rx tablet,extended release 24 hr potassium chloride 20 mEq 20 meq PO QAM #90 tab 06/12/19 06/14/19 Rx tablet,extended release pantoprazole 40 mg PO DAILY 06/14/19 06/14/19 History Allergies Allergy/AdvReac Type Severity Reaction Status Date / Time morphine AdvReac Severe "STOPS MY Verified 06/14/19 08:08 HEART" hydromorphone [From Dilaudid] AdvReac Intermediate unresponsiv Verified 06/14/19 08:08 eness trazodone AdvReac Intermediate GI UPSET Verified 06/14/19 08:08 diazepam AdvReac Mild HALLUCINATE Verified 06/14/19 08:08 S propoxyphene AdvReac Mild DRUG Verified 06/14/19 08:08 INTOLERANCE Past Med/Surg History Medical History Atypical chest pain (Resolved) Benign colonic polyp (Chronic) CAD in [place] artery (Chronic) Cellulitis Chronic kidney disease (CKD) (Acute) Cognitive disorder (Chronic) Controlled type 2 diabetes mellitus with neurologic complication, with long-term current use of insulin (Resolved) Conversion disorder (Resolved) Diabetes mellitus, type 2 Diabetic peripheral neuropathy (Chronic) Dyslipidemia (Resolved) Esophageal reflux (Chronic) History of colon polyps (Chronic) History of tobacco use (Resolved) Hyperlipidemia (Chronic) Hypertension (Chronic) Kidney stone on right side (Resolved) Migraines, neuralgic (Chronic) Myocardial Infarction (Resolved) 2004--follows with Dr. Mejia Nephrolithiasis (Resolved) Neurological deficit present (Resolved) Neuropathy (Chronic) Osteoarthritis (Chronic) Raynauds phenomenon (Chronic) Stage III chronic kidney disease Tubular adenoma of colon (Resolved) Vitamin D deficiency (Chronic) Wound of left foot (Resolved) Surgical History History of arthroscopy of left knee (Resolved) History of cardiac cath (Resolved) x3-4, last 2014 History of carpal tunnel release of both wrists (Resolved) History of colonoscopy (Resolved) History of heart artery stent (Resolved) x1--1999 History of lithotripsy (Resolved) x2 History of lumbar discectomy (Resolved) x2 History of open reduction and internal fixation (ORIF) procedure (Resolved) left ankle--hardware in place History of right cataract extraction (Resolved) History of tonsillectomy and adenoidectomy (Resolved) Status post uvulopalatopharyngoplasty (Resolved) Family History Father Family history of diabetes mellitus Family hx of colon cancer Other No family history of adverse response to anesthesia Social History Preferred Language: Korean Communication Ability: Effective Communication Ability Comment: 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 ; Do You Dip or Chew Tobacco: No ; Smoking End Date: 3 years ago (3 PPD prior to that). ; Second Hand Exposure: No ; Tobacco Cessation Education Requested by Patient: No Hx Alcohol Use: Yes Alcohol type: other Hx Substance Use: No Review of Systems See HPI for pertinent positives & negatives. and A total of 10 systems reviewed and were otherwise negative Physical Exam Vital Signs Vital Signs - 24 hr 06/14/19 07:40 06/14/19 07:56 06/14/19 09:00 Temperature 37.0 C Temperature Source Oral Pulse Rate 117 H Pulse Rate from SpO2 Sensor 134 H Respiratory Rate 20 Respiratory Effort / Characteristics Non-Labored Respiratory Depth Normal Blood Pressure 115/67 Blood Pressure Mean 83 Blood Pressure Position Sitting Pulse Oximetry 97 97 97 Oxygen Delivery Method Room Air Room Air Oxygen Flow Rate 0 Sepsis Recent Fever Within 48 Hours No Sepsis New/Unexplained Change in Mental Status No Sepsis Action Taken by Nursing No Action Required 06/14/19 09:05 06/14/19 09:30 06/14/19 10:00 Temperature Temperature Source Pulse Rate 135 H 136 H 135 H Pulse Rate from SpO2 Sensor 136 H 135 H Respiratory Rate 26 H 26 H 22 Respiratory Effort / Characteristics Respiratory Depth Blood Pressure 113/70 104/66 124/68 Blood Pressure Mean 75 68 85 Blood Pressure Position Pulse Oximetry 98 99 Oxygen Delivery Method Oxygen Flow Rate Sepsis Recent Fever Within 48 Hours Sepsis New/Unexplained Change in Mental Status Sepsis Action Taken by Nursing GENERAL: Sitting up in bed, delusional but answering questions appropriately, no n-toxic. EYE EXAM: normal conjunctiva OROPHARYNX: no exudate, no erythema, lips, buccal mucosa, and tongue normal and mucous membranes are moist NECK: supple, no nuchal rigidity, no adenopathy, non-tender CHEST: Midline incision well healed with 2 scabs over incision in subxiphoid LUNGS: Clear to auscultation. Normal chest wall mechanics HEART: no murmurs, S1 normal and S2 normal ABDOMEN: abdomen soft, non-tender, normo-active bowel sounds, no masses, no rebound or guarding. BACK: Back is symmetrical on inspection and there is no deformity, no midline tenderness, no CVA tenderness. SKIN: no rashes and no bruising UPPER EXTREMITIES: Upper extremities are grossly normal, with the exception of a forearm cast in place on the right upper extremity. LOWER EXTREMITIES: Redness and tenderness tracking up the left lower extremity. Bilateral edema to the lower extremities. NEURO EXAM: Oriented to person, place, and time, cranial nerves II-XII grossly intact, normal speech, no gross weakness of arms, no gross weakness of legs. PSYCH: Oriented but delusional and believes he is coughing up bugs. Denies SI and HI. Course Course ED COURSE: Vital signs were reviewed and showed tachycardia. The patients medical record was reviewed The above diagnostic studies were performed and reviewed. ED treatments and interventions as stated above. 0746: The patient was evaluated in room A11B. A complete history and physical examination was performed. 0843: I updated the patient. His has not arrived yet. 0853: I discussed the case with the patient's . She states that she does not believe she can take care of the patient anymore at home. She states that she believes he is a danger to himself and to her. The patient's states that the patient called EMS this morning because he felt as though his head was caving in and had chest pain. 0921: Upon reevaluation, the patient is resting comfortably. I discussed my findings with the patient and his family and they understand and agree with the treatment plan. Based on the patients age, coexisting illnesses, exam and lab findings the decision to treat as an inpatient was made. The patient remained stable while under my care. 0925: The patient will be evaluated for further management. I discussed the case with Dr. Aparicio[facility] Hospitalist who accepts the patient for further evaluation. Administered Medications Citalopram Hydrobromide (Celexa) 40 mg PO Raquel@0900 [facility] Stop: 07/14/19 11:20 Last Admin: 06/14/19 12:27 Dose: 40 mg Documented by: [id number] Discontinued Medications Aspirin (Aspirin) 324 mg PO NOW STA Stop: 06/14/19 07:52 Last Admin: 06/14/19 09:04 Dose: 324 mg Documented by: [id number] Sodium Chloride (Nss 1000ml) 500 mls @ 999 mls/hr IV .Q31M ONE Stop: 06/14/19 09:37 Last Infusion: 06/14/19 09:41 Dose: 0 mls/hr Documented by: [id number] Admin: 06/14/19 09:10 Dose: 999 mls/hr Documented by: [id number] Ceftriaxone Sodium (Rocephin) 1,000 mg in 50 mls @ 100 mls/hr IV NOW STA Stop: 06/14/19 09:45 Last Infusion: 06/14/19 10:00 Dose: 0 mls/hr Documented by: [id number] Admin: 06/14/19 09:30 Dose: 100 mls/hr Documented by: [id number] Medical Decision Making Differential Diagnosis Differential Diagnosis includes but is not limited to headache, tension headache, cluster headache, migraine, subarachnoid hemorrhage, meningitis, mass, central venous thrombus, concussion, trauma and epidural/subdural hemorrhage, acute coronary syndrome, myocardial infarction, pericarditis, pulmonary embolus, aortic dissection, pneumonia, pneumothorax, musculoskeletal, shingles, esophageal. Medical Records Attestation: I reviewed the patient's medical records. Home Medications Current Medication List: was personally reviewed by me Laboratory Data Attestation: I reviewed the patient's lab results. Result diagrams: 06/14/19 08:19 06/14/19 08:19 Lab Results 06/14/19 06/14/19 06/14/19 Range/Units 08:19 08:19 08:19 WBC 7.24 (4.8-10.8) K/uL RBC 3.70 L (4.7-6.1) M/uL Hgb 11.9 L (14.0-18.0) g/dL Hct 35.8 L (42-52) % MCV 96.8 (80-100) fL MCH 32.2 (25-34) pg MCHC 33.2 (32-36) g/dL RDW Std Deviation 50.8 H (36.4-46.3) fL RDW Coeff of [place]iss[place] 14.4 (11.5-14.5) % Plt Count 202 (130-400) K/uL MPV 10.0 (7.4-10.4) fL Immature Gran % (Auto) 1.0 % Neut % (Auto) 93.6 % Lymph % (Auto) 2.1 % [place] % (Auto) 2.5 % Eos % (Auto) 0.7 % Baso % (Auto) 0.1 % Immature Gran # (Auto) 0.07 H (0.00-0.02) K/uL Neut # (Auto) 6.78 H (1.4-6.5) K/uL Lymph # (Auto) 0.15 L (1.2-3.4) K/uL [place] # (Auto) 0.18 (0.11-0.59) K/uL Eos # (Auto) 0.05 (0-0.5) K/uL Baso # (Auto) 0.01 (0-0.2) K/uL PT 10.9 (9.0-12.0) Seconds INR 1.1 (0.9-1.1) APTT 23.1 (21.0-31.0) Seconds PTT Ratio 0.9 Sodium 136 (136-145) mmol/L Potassium 3.9 (3.5-5.1) mmol/L Chloride 106 (98-107) mmol/L Carbon Dioxide 20 L (21-32) mmol/L Anion Gap 10.0 (3-11) BUN 24 H (7-18) mg/dl Creatinine 1.47 H (0.6-1.4) mg/dl Est Cr Clr Drug Dosing 50.8 ml/min Est GFR ( Amer) 54.1 Est GFR (Non-Af Amer) 46.7 BUN/Creatinine Ratio 16.4 (10-20) Glucose 194 H (70-99) mg/dl Calcium 8.7 (8.5-10.1) mg/dl Total Bilirubin 0.9 (0.2-1) mg/dl AST 26 (15-37) U/L ALT 44 (12-78) U/L Alkaline Phosphatase 150 H (45-117) U/L Troponin I < 0.015 (0-0.045) ng/ml Total Protein 6.8 (6.4-8.2) gm/dl Albumin 3.2 L (3.4-5.0) gm/dl Globulin 3.6 (2.5-4.0) gm/dl Albumin/Globulin Ratio 0.9 (0.9-2) Lipase 120 (73-393) U/L Urine Color Urine Appearance (Clear) Urine pH (4.5-7.5) Ur Specific [place] (1.000-1.030) Urine Protein (Negative) Urine Glucose (UA) (Negative) Urine Ketones (Negative) Urine Blood (Negative) Urine Nitrite (Negative) Urine Bilirubin (Negative) Urine Urobilinogen (Negative) Ur Leukocyte Esterase (Negative) Hepatitis C Ab Screen (Neg) 06/14/19 06/14/19 Range/Units 08:19 09:30 WBC (4.8-10.8) K/uL RBC (4.7-6.1) M/uL Hgb (14.0-18.0) g/dL Hct (42-52) % MCV (80-100) fL MCH (25-34) pg MCHC (32-36) g/dL RDW Std Deviation (36.4-46.3) fL RDW Coeff of [place]iss[place] (11.5-14.5) % Plt Count (130-400) K/uL MPV (7.4-10.4) fL Immature Gran % (Auto) % Neut % (Auto) % Lymph % (Auto) % [place] % (Auto) % Eos % (Auto) % Baso % (Auto) % Immature Gran # (Auto) (0.00-0.02) K/uL Neut # (Auto) (1.4-6.5) K/uL Lymph # (Auto) (1.2-3.4) K/uL [place] # (Auto) (0.11-0.59) K/uL Eos # (Auto) (0-0.5) K/uL Baso # (Auto) (0-0.2) K/uL PT (9.0-12.0) Seconds INR (0.9-1.1) APTT (21.0-31.0) Seconds PTT Ratio Sodium (136-145) mmol/L Potassium (3.5-5.1) mmol/L Chloride (98-107) mmol/L Carbon Dioxide (21-32) mmol/L Anion Gap (3-11) BUN (7-18) mg/dl Creatinine (0.6-1.4) mg/dl Est Cr Clr Drug Dosing ml/min Est GFR ( Amer) Est GFR (Non-Af Amer) BUN/Creatinine Ratio (10-20) Glucose (70-99) mg/dl Calcium (8.5-10.1) mg/dl Total Bilirubin (0.2-1) mg/dl AST (15-37) U/L ALT (12-78) U/L Alkaline Phosphatase (45-117) U/L Troponin I (0-0.045) ng/ml Total Protein (6.4-8.2) gm/dl Albumin (3.4-5.0) gm/dl Globulin (2.5-4.0) gm/dl Albumin/Globulin Ratio (0.9-2) Lipase (73-393) U/L Urine Color Yellow Urine Appearance Clear (Clear) Urine pH 5.0 (4.5-7.5) Ur Specific [place] 1.018 (1.000-1.030) Urine Protein Negative (Negative) Urine Glucose (UA) Negative (Negative) Urine Ketones Negative (Negative) Urine Blood Negative (Negative) Urine Nitrite Negative (Negative) Urine Bilirubin Negative (Negative) Urine Urobilinogen Negative (Negative) Ur Leukocyte Esterase Negative (Negative) Hepatitis C Ab Screen Neg (Neg) Imaging Data Radiologist's Impression: Radiology results as stated below per my review and the radiologist's interpretation: XR chest 1V portable CLINICAL HISTORY: Chest Pain COMPARISON STUDY: Chest CT May 16, 2019. Chest radiograph June 06, 2019. FINDINGS: Median sternotomy wires and clips from bypass grafting are noted. There is moderate cardiomegaly without evidence for pulmonary edema. Minimal left basilar opacity favors atelectasis. There is no consolidation to suggest pneumonia. Patient is mildly rotated. IMPRESSION: No acute cardiopulmonary findings. ACT 112: Negative or not required by law. Electronically signed by: Barber Finnegan M.D. 06/14/2019 8:[address] OF THE HEAD WITHOUT CONTRAST CLINICAL HISTORY: Headache. COMPARISON STUDY: Head CT T May 14, 2019. MRI of the brain May 15, 2019. CT DOSE: 537.48 mGy.cm TECHNIQUE: Helical axial images of the head were obtained without IV contrast. Automated exposure control was utilized for the study. A dose lowering technique was utilized adhering to the principles of ALARA. FINDINGS: No acute intracranial hemorrhage, midline shift or mass effect is present. The ventricular system is unremarkable. The basilar cisterns are patent. No extra-axial collections are present. There are no findings to suggest acute dural sinus thrombosis or acute territorial infarct. No significant calvarial abnormalities are present. Postoperative findings within the sinuses are noted. There is no evidence for sinusitis by CT. IMPRESSION: No acute intracranial findings. ACT 112: Negative or not required by law. Electronically signed by: Barber Finnegan M.D. 06/14/2019 8:53 AM ECG Data Attestation: I personally reviewed and interpreted this ECG as follows: Indication: + chest pain Rate (beats per minute): 115 Rhythm: + sinus tachycardia ECG Intervals/blocks: + Right Bundle branch block ECG [place]: + Left axis deviation ECG ST segments: + T-wave inversions (septal) ECG Findings: + Q waves (inferior) Comparison ECG Date: from (06/06/19) Change: the following changes noted (RBBB and T wave inversion new; inferior Q waves and left axis deviation old) Blood Pressure Blood Pressure Findings: Normal blood pressure MDM Narrative Patient is a 74-year-old male who presents the ER from home who was recently admitted and discharged around [place]. Patient also had a CABG x3 in early May per review of the chart. He is oriented to person place or time but is clearly delusional. He is complaining of a headache and chest pain. who did not want to go in the room notes that she can no longer take care of him at home as he has become more more aggressive. IV was established blood work was obtained. Labs show no significant leukocytosis but a mild anemia at 11.9 thousand. INR was unremarkable. BMP with a creatinine 1.47. Glucose was slightly elevated. LFTs bilirubin and troponin lipase were unremarkable. UA was negative. He notes his chest pain is similar to his previous heart attack although it was clearly reproducible on exam. He was slightly tachycardic. He was given a small bolus of IV fluids. Heart rate did trend down. He did have erythema of the left lower extremity which was tender. Do question if this tachycardia is persistent secondary to an infectious process versus mild d ehydration due to the recent diuresis. Family was updated and patient was updated. Discussed with the hospitalist for observation. Impression & Plan Chest pain, Delusional disorder, Headache, Tachycardia, Cellulitis Discharge Plan Visit Data *Final* Discharge Date/Time: 06/14/19 10:58 Chief Complaint: Headache Stated Complaint: Head caving in, Bugs coming out lungs ED Provider: Clifton Ho Discharge Problem: Chest pain, Delusional disorder, Headache, Tachycardia, Cellulitis Patient Disposition: Admitted As Inpatient Discharge Instructions Interventions: ED Discharge Assessment Last Done: 06/14/19 10:58 Discharge Problem: Chest pain Qualifiers: Chest pain type: unspecified Qualified Code(s): R07.9 - Chest pain, unspecified Headache Qualifiers: Headache type: unspecified Headache chronicity pattern: acute headache Intractability: not intractable Qualified Code(s): R51 - Headache Cellulitis Qualifiers: Site of cellulitis: unspecified site Qualified Code(s): L03.90 - Cellulitis, un specified The scribe's documentation has been prepared under my direction and personally reviewed by me in its entirety. I confirm that the note above accurately reflects all work, treatment, procedures, and medical decision making performed by me.
[2019-06-14] MEDS: ACETAMINOPHEN 325 MG TAB PO PRN ×2 (13:49→22:08)
--- NOTE | 2019-06-14 13:49 | Ultrasound Report ---
BILATERAL LOWER EXTREMITY VENOUS DOPPLER CLINICAL HISTORY: LE swelling; prior SVT; tachycardia COMPARISON STUDY: Bilateral lower extremity venous Doppler ultrasound June 05, 2019. TECHNIQUE: Sonography of the deep venous system of the bilateral lower extremities was performed. Co mpression and augmentation were evaluated. FINDINGS: The bilateral common femoral, superficial femoral and popliteal veins were compressible. A ugmentation was normal. Flow was shown within the deep calf vessels. Long segment occlusive superfici al thrombus within the left greater saphenous vein is unchanged since prior exam of June 05, 2019 . IMPRESSION: 1. No evidence of deep venous thrombus within the bilateral lower extremities. 2. No change in long segment occlusive superficial thrombus within the left greater saphenous vein si nce prior ultrasound. ACT 112: Negative or not required by law. Electronically signed by: Barber Finnegan M.D. 06/14/2019 1:48 PM
--- NOTE | 2019-06-14 13:49 | History & Physical Report ---
Date of Service June 14, 2019 Assessment & Plan (1) Tachycardia: EKG shows sinus tachycardia. Ddx includes agitation (very concerned about this chemical exposure), dehydration (per family, urine is dark), infection, and PE. Other causes such as hyperthyroid have been checked recently. Chance this is a sinus re-entry arrythmia given the recent CABG. - Reassurance for agitation - Psych consult - Given 500 mL of IV fluids in the ED. Holding diuretic at present. - BNP - Blood culture; hold abx for no source of infection at this time. - Dopplers for LE DVTs; consider CTA. (2) Diastolic CHF: Recently admitted for diastolic CHF exacerbation. Echo on 06/06/2019 was difficult study, but showed EF 65-70% with normal valves. - Volume status hard to determine -> LE edema; however, no rales on exam, no JVD, and CXR looks clear. - Cardiology consulted - Hold fluids & diuretic at this time. (3) Delusional disorder: As per HPI, has been ongoing and worsening since February. - Will get MRI brain if we are able. - Psych reconsulted - Patient's does not feel safe at home with him at this time. (4) CAD in [place] artery: S/p CABG at [facility] on 05/23/2019. - Continue ASA, statin, Imdur, beta-beto (5) Hypertension: BP stable at 120/75. - Continue beta-beto as above (6) Diabetes: A1c was 6.5% in 04/2019. High insulin resistance with high doses of long- acting and short-acting insulins. - Glycemic pharmacists to assist (7) Chronic kidney disease (CKD): Baseline Cr ranges from 1.4 - 1.8. - Presently at baseline with Cr of 1.5. - Monitor Cr (8) Migraines, neuralgic: Reported a headache to the ED provider, but to me he just says his head "is shrinking." Head CT on 06/14 was without significant findings. - Continue topiramate presumably for migraines (9) DVT prophylaxis: Heparin 5000 units SQ Q12h History of Present Illness Primary Care Provider: Fox Moran MD 74yo M w/ hx of CAD s/p CABG on 05/23/2019 at [facility] who presents with delusional disorder. He was admitted to the hospital from 06/05/2019 to 06/09/20 19 with CHF exacerbation. His family reports that he has been taking his Lasix as prescribed; however, he has had less and less urine output per his family. As importantly, they report that he has had increasing delusions since February of this year. Per family, this has never been an issue. In , he was holding down a job and was totally functional. In March, they started noting delusions, and they report it has been getting worse since that time. In the ED, his reported that she no longer feels safe at home. He perseverates on these delusions and if he feels she is contradicting him in any fashion, he will snap at her. This is the main reason they have brought him to the Emergency Department. They deny any inciting event such as a car accident, concussion, emotional trauma, or other event that could have triggered this issue. Allergies Allergy/AdvReac Type Severity Reaction Status Date / Time morphine AdvReac Severe "STOPS MY Verified 06/14/19 08:08 HEART" hydromorphone [From Dilaudid] AdvReac Intermediate unresponsiv Verified 06/14/19 08:08 eness trazodone AdvReac Intermediate GI UPSET Verified 06/14/19 08:08 diazepam AdvReac Mild HALLUCINATE Verified 06/14/19 08:08 S propoxyphene AdvReac Mild DRUG Verified 06/14/19 08:08 INTOLERANCE Home Medications Home Medications Medication Instructions Recorded Confirmed Type diclofenac sodium [Voltaren] 2 gm TOP QID #100 gm 10/20/18 06/14/19 Rx pen needle, diabetic 31 gauge x #30 ea 12/03/18 06/14/19 Rx 5/16" aspirin 81 mg chewable tablet 81 mg PO Q OTHER DAY 02/05/19 06/14/19 History citalopram 20 mg tablet 20 mg PO MOWEFR tab 02/05/19 06/14/19 History nitroglycerin 0.4 mg sublingual 0.4 mg SL Q5M PRN #1 tab 02/05/19 06/14/19 History tablet ranitidine HCl 300 mg tablet 300 mg PO HS #90 tab 05/12/19 06/14/19 Rx melatonin 5 mg PO HS PRN 05/30/19 06/14/19 History metoprolol tartrate 75 mg tablet 75 mg PO BID #60 tab 05/30/19 06/14/19 Rx acetaminophen [Tylenol Extra 1,000 mg PO Q8H PRN 06/05/19 06/14/19 History Strength] insulin glargine 100 unit/mL (3 40 - 65 units SQ HS ml MDD 65 06/05/19 06/14/19 History mL) subcutaneous pen units insulin lispro 100) 100 unit/mL 20 - 40 units SUBCUT AC ml 06/05/19 06/14/19 History subcutaneous pen mupirocin [Centany] 1 appln TOP BID 06/05/19 06/14/19 History pantoprazole [Protonix] 40 mg PO QAM 06/05/19 06/14/19 History polyethylene glycol 3350 [Miralax] 17 gm PO QAM 06/05/19 06/14/19 History sennosides-docusate sodium [Senna 1 tab PO QAM 06/05/19 06/14/19 History with Docusate Sodium] topiramate [Topamax] 100 mg PO BID 06/05/19 06/14/19 History tramadol [Ultram] 50 mg PO Q6H PRN 06/05/19 06/14/19 History atorvastatin 80 mg tablet 80 mg PO QAM #90 tab 06/12/19 06/14/19 Rx citalopram 40 mg tablet 40 mg PO SUTUTHSA #90 tab 06/12/19 06/14/19 Rx furosemide 20 mg tablet 20 mg PO BID #90 tab 06/12/19 06/14/19 Rx isosorbide mononitrate 60 mg 60 mg PO QAM #90 tab 06/12/19 06/14/19 Rx tablet,extended release 24 hr potassium chloride 20 mEq 20 meq PO QAM #90 tab 06/12/19 06/14/19 Rx tablet,extended release pantoprazole 40 mg PO DAILY 06/14/19 06/14/19 History Past Med/Surg History Medical History Atypical chest pain (Resolved) Benign colonic polyp (Chronic) CAD in [place] artery (Chronic) Cellulitis Chronic kidney disease (CKD) (Acute) Cognitive disorder (Chronic) Controlled type 2 diabetes mellitus with neurologic complication, with long-term current use of insulin (Resolved) Conversion disorder (Resolved) Diabetes mellitus, type 2 Diabetic peripheral neuropathy (Chronic) Dyslipidemia (Resolved) Esophageal reflux (Chronic) History of colon polyps (Chronic) History of tobacco use (Resolved) Hyperlipidemia (Chronic) Hypertension (Chronic) Kidney stone on right side (Resolved) Migraines, neuralgic (Chronic) Myocardial Infarction (Resolved) 2004--follows with Dr. Mejia Nephrolithiasis (Resolved) Neurological deficit present (Resolved) Neuropathy (Chronic) Osteoarthritis (Chronic) Raynauds phenomenon (Chronic) Stage III chronic kidney disease Tubular adenoma of colon (Resolved) Vitamin D deficiency (Chronic) Wound of left foot (Resolved) Surgical History History of arthroscopy of left knee (Resolved) History of cardiac cath (Resolved) x3-4, last 2014 History of carpal tunnel release of both wrists (Resolved) History of colonoscopy (Resolved) History of heart artery stent (Resolved) x1--1999 History of lithotripsy (Resolved) x2 History of lumbar discectomy (Resolved) x2 History of open reduction and internal fixation (ORIF) procedure (Resolved) left ankle--hardware in place History of right cataract extraction (Resolved) History of tonsillectomy and adenoidectomy (Resolved) Status post uvulopalatopharyngoplasty (Resolved) Family History Father Family history of diabetes mellitus Family hx of colon cancer Other No family history of adverse response to anesthesia Social History Preferred Language: Egyptian Communication Ability: Effective Communication Ability Comment: Patient with confusion. Book Sewer Required: No Beliefs That Will Affect Care: None marital status: Current Living Situation: Spouse Other Information That Helps Us Care for You: No Feels Safe at Home: Yes Safety Concerns: Feels Safe At This Time Smoking Status: Current every day smoker Tobacco Type: cigarettes and cigars ; Cigarettes Per Day: [place] since 7 years old. ; Do You Dip or Chew Tobacco: No ; Smoking End Date: 3 years ago (3 PPD prior to that). ; Second Hand Exposure: No ; Tobacco Cessation Education Requested by Patient: No Hx Alcohol Use: Yes Alcohol type: other Hx Substance Use: No Review of Systems Review of Systems: All systems reviewed & are unremarkable except as noted in HPI & below Physical Exam Constitutional: WD/WN, vitals as above + acute distress and cooperative Eyes: EOM intact bilaterally; no conjunctival abnormality ENMT: external ear and nose normal, oropharynx normal Neck: trachea midline, no thyromegaly + abnormal visual inspection (Wound on posterior neck) Respiratory: normal respiratory effort, lungs clear to auscultation no respiratory distress Cardiovascular: Rate/Rhythm: regular rhythm and + tachycardic Heart Sounds: normal S1 and normal S2 Extremities: + edema (1+ up to knee) Gastrointestinal (Abdomen): Inspection/Auscultation: abdomen normal to inspection; abdomen not distended Musculoskeletal: no cyanosis or clubbing, extremities motor strength 5/5 Skin: no rashes, warm and dry Neurologic: moves all extremities and awake Psychiatric: Orientation: alert, oriented to person and cooperative Results & Data Vital Signs (Past 12 Hours) Vital Signs Temp Pulse Pulse Resp BP BP Pulse Ox 06/14/19 13:02 119 H 06/14/19 11:24 37.2 C 117 H 20 116/74 99 06/14/19 10:30 135 H 23 109/67 98 06/14/19 10:00 135 H 22 124/68 99 06/14/19 09:30 136 H 26 H 104/66 06/14/19 09:05 135 H 26 H 113/70 98 06/14/19 09:00 97 06/14/19 07:56 97 06/14/19 07:40 37.0 C 117 H 20 115/67 97 Code Status & VTE Plan VTE Prophylaxis Plan VTE Prophylaxis will be ordered: Yes PG Care Time/CCT Total # of Minutes Spent Total Time Spent with Patient: Total time spent is greater than 50% in coordination of care (as documented) at patient's floor/unit and/or counseling patient: (1) Hypertension Hypertension type: essential hypertension Qualified Code(s): I10 - Essential (primary) hypertension (2) Chronic kidney disease (CKD) Chronic kidney disease stage: stage 3 (moderate) Qualified Code(s): N18.3 - Chronic kidney disease, stage 3 (moderate)
--- NOTE | 2019-06-14 13:52 | Pharmacy Report ---
Pharmacy Glycemic Short Note 2 - Date of Service June 14, 2019 - Glycemic Short BSG Results (Last 24 hours): 06/14/19 06/14/19 08:19 11:24 Glucose 194 H POC Glucose 146 H OUTPATIENT ANTIDIABETIC REGIMEN: * Lantus 40-65 units SQ qHS * Novolog 20-40 units with meals * A1c = 6.5% 05/15/19 ASSESSMENT: * 74 yr old T2DM male known to the glycemic service from admission earlier this month. During previous stay he required 52-68 units per day. * BSG of 146 mg/dL at this time of consultation. Patient last took home insulin on 06/13. * No significant obvious risk factors for insulin resistance such as infection or steroid use, therefore I will base doses on what worked in the recent past. PLAN FOR INPATIENT GLYCEMIC CONTROL: * Basal insulin * Lantus 35-40 units SQ qHS * 35 units for BSG < 180, 40 units for BSG of 180 or more * Bolus insulin * NovoLog per scale ACHS or Q6hrs while NPO * Goal Range: Low 110 mg/dL - High 140 mg/dL * Correction Factor: 30 mg/dL/unit * Nutritional / Prandial insulin per carb ratio of 1 unit per 10 grams CHO consumed PLAN FOR DISCHARGE: *
[2019-06-14] MEDS: INSULIN ASPART 100 UNITS/ML 3 ML PEN SC SCH ×3 (14:04→22:11)
[2019-06-14] MEDS ORDERED: NORMOSOL-R 500 ML IV ONE (15:17)
[2019-06-14] MEDS ORDERED: PIPERACILL/TAZOBAC CONSULT ACTIVE PRN (15:21)
[2019-06-14] MEDS ORDERED: VANCOMYCIN CONSULT ACTIVE PRN (15:21)
[2019-06-14] MEDS ORDERED: PIPERACILLIN/TAZOBACTAM 4.5 GM in DEXTROSE 5% 100 ML IV ONE (16:00)
[2019-06-14] MEDS ORDERED: VANCOMYCIN HCL 2,500 MG in SODIUM CHLORIDE 0.9% 500 ML IV SCH (16:00)
--- NOTE | 2019-06-14 16:05 | Pharmacy Report ---
Pharmacy Abx Initial Consult - Date of Service June 14, 2019 - Pharmacy Dosing Scope Date of Consult: 06/14/19 Consultation requested by: Dr. Apaircio Pharmacy is consulted to initiate VANCOMYCIN/ZOSYN IV dosing therapy, order appropriate labs and adjust drug dose/frequency. - Subjective The patient is a 74 year old M admitted on 06/14/19 10:16. - Objective Height: 5 ft 9 in Weight: 97.2 kg Vital Signs (Past 12hrs): Vital Signs Temp Pulse Pulse Resp BP BP Pulse Ox 06/14/19 15:38 37.1 C 106 H 18 102/64 93 06/14/19 15:13 37.7 C H 06/14/19 13:49 38.4 C H 06/14/19 13:02 119 H 06/14/19 11:24 37.2 C 117 H 20 116/74 99 06/14/19 10:30 135 H 23 109/67 98 06/14/19 10:00 135 H 22 124/68 99 06/14/19 09:30 136 H 26 H 104/66 06/14/19 09:05 135 H 26 H 113/70 98 06/14/19 09:00 97 06/14/19 07:56 97 06/14/19 07:40 37.0 C 117 H 20 115/67 97 Lab Results (24hrs): Laboratory Tests (24 Hours) 06/14/19 06/14/19 08:19 08:19 WBC 7.24 Neut # (Auto) 6.78 H Creatinine 1.47 H Est Cr Clr Drug Dosing 50.8 Micro Results: 06/14/19 14:32 Aerobic Blood Culture - Pending Blood Anaerobic Blood Culture - Pending 06/14/19 14:17 Aerobic Blood Culture - Pending Blood Anaerobic Blood Culture - Pending - Risk Factors for Resistance * Hospitalization for 48 hours or more within the past 90 days (06/05-06/09) - Assessment & Plan Assessment 74 year old M ordered VANCOMYCIN/ZOSYN empirically. Initially, abx therapy was not warranted, however patient then spiked a consistent fever, so VANC/ZOSYN now ordered empirically. Plan Vancomycin IV * Estimated PK Parameters: Vd 0.7 L/kg, J Carlos 0.046 hr-1, t1/2 ~15 hr * Loading dose: 2500mg (25 mg/kg) * Maintenance dose: 1500mg IV (15 mg/kg) every 18 hours * Goal trough level for empiric therapy : 15 to 18 mcg/mL * Trough level will be ordered if therapy is continued past 48 hours. Piperacillin/tazobactam * 4.5g bolus administered over 30 minutes, then 3.375g IV extended infusion every 8 hours for CrCl greater than 20 mL/min. Pharmacy will continue to follow and will adjust dose/frequency as necessary. Thank you.
[2019-06-14 16:10] LABS: Influenza A virus by PCR Neg for Influ A (Neg); Influenza B virus by PCR Neg for Influ B (Neg)
[2019-06-14 21:54] LABS: Appearance Urine Clear (Clear); Bilirubin Urine Negative (Negative); Blood Urine Negative (Negative); Color Urine Yellow; Glucose Urine UA Negative (Negative); Ketones Urine Negative (Negative); Leukocyte Esterase Urine Negative (Negative); Nitrite Urine Negative (Negative); Protein Urine Negative (Negative); Urobilinogen Urine Negative (Negative); pH Urine 5.5 (4.5-7.5)
[2019-06-14] MEDS: TOPIRAMATE 100 MG TAB PO SCH (22:08)
[2019-06-14] MEDS: METOPROLOL TARTRATE 25 MG TAB PO SCH (22:09)
[2019-06-14] MEDS: INSULIN GLARGINE SOLOSTAR 100 UNITS/ML 3 ML PEN SC SCH (22:10)
--- NOTE | 2019-06-14 22:11 | Magnetic Resonance Report ---
MRI OF THE BRAIN WITHOUT CONTRAST CLINICAL HISTORY: Altered mental status. COMPARISON STUDY: MRI of the brain May 15, 2019. Head CT performed earlier today. TECHNIQUE: Utilizing a 1.5 Katlyn magnet and dedicated coil, multiplanar, multiecho imaging of the bra in was performed without IV contrast. FINDINGS: There is a punctate focus of increased signal intensity within the periventricular right pa rietal lobe on axial image 16 of 48. This is not hypointense on the ADC map. A corresponding 3 mm foc us is noted on the T2-weighted sequences which is new since MRI of May 15, 2019. The ventricular system is stable. Basilar cisterns are patent. There is moderate atrophy. Mild white matter T2 hyper intense foci suggest small vessel disease. There is no extra axial collection. The basilar cisterns a re patent. No acute intracranial hemorrhage, midline shift or mass effect is present. Calvarial signa l is normal. IMPRESSION: 1. Punctate 3 mm periventricular T2 hyperintense focus within the right parietal lobe. This is new si nce MRI of May 15, 2019. This suggests a tiny subacute infarct. No mass effect. No hemorrhage. 2. Otherwise, unchanged appearance of the brain with moderate atrophy and mild small vessel disease. ACT 112: Negative or not required by law. Electronically signed by: Barber Finnegan M.D. 06/14/2019 10:10 PM
[2019-06-14] MEDS: PIPERACILLIN/TAZOBACTAM 3.375 GM in DEXTROSE 5% 100 ML IV SCH (22:12)
[2019-06-14] MEDS: HEPARIN SOD 5,000 UNIT/0.5 ML VIAL SQ SCH (22:15)
[2019-06-15] MEDS: PIPERACILLIN/TAZOBACTAM 3.375 GM in DEXTROSE 5% 100 ML IV SCH ×3 (05:51→22:22)
[2019-06-15 07:33] LABS: Hematocrit (blood only) 32.3 % (42-52); Hemoglobin 10.3 g/dL (14.0-18.0); Mean Corpuscular Hgb Conc 31.9 g/dL (32-36); Mean Corpuscular Volume 100.3 fL (80-100); Mean Platelet Volume 9.8 fL (7.4-10.4); Platelet Count 168 K/uL (130-400); RDW Coefficient of Variation 14.4 % (11.5-14.5); RDW Standard Deviation 52.6 fL (36.4-46.3); Red Blood Count 3.22 M/uL (4.7-6.1); White Blood Count 4.78 K/uL (4.8-10.8)
[2019-06-15 07:49] LABS: BUN Creatinine Ratio 14.9 (10-20); Calcium 8.1 mg/dl (8.5-10.1); Creatinine Clr Calc Pharmacy 51.8 ml/min; Est GFR (African American) 56.4; Est GFR (Non-African American) 48.7; Phosphorus 2.8 mg/dl (2.5-4.9); Potassium 3.8 mmol/L (3.5-5.1)
[2019-06-15] MEDS: INSULIN ASPART 100 UNITS/ML 3 ML PEN SC SCH ×4 (08:08→21:45)
[2019-06-15] MEDS: HEPARIN SOD 5,000 UNIT/0.5 ML VIAL SQ SCH ×2 (08:09→21:44)
[2019-06-15] MEDS: CITALOPRAM 40 MG TAB PO SCH (08:10)
[2019-06-15] MEDS: ASPIRIN 81 MG ECTAB PO SCH (08:10)
[2019-06-15] MEDS: PANTOprazole 40 MG TAB PO SCH (08:10)
[2019-06-15] MEDS: METOPROLOL TARTRATE 25 MG TAB PO SCH ×2 (08:10→22:23)
[2019-06-15] MEDS: TOPIRAMATE 100 MG TAB PO SCH ×2 (08:10→21:43)
[2019-06-15] MEDS: ATORVASTATIN 40 MG TAB PO SCH (08:11)
[2019-06-15] MEDS: ISOSORBIDE MONO EXTENDED REL 60 MG TABCR PO SCH (08:11)
[2019-06-15] MEDS: TRAMADOL HCL 50 MG TABLET PO PRN (08:21)
--- NOTE | 2019-06-15 08:21 | Cardiology Progress Note ---
Date of Service June 15, 2019 Assessment & Plan (1) Fluid overload: He presented initially to the office and then to the hospital with evidence of fluid overload following surgery. That had improved substantially with diuresis. His weight is now up somewhat and I believe he needs diuresis. (2) CAD in [place] artery: He recently underwent CABG x3 on 05/24/19. There is no evidence of this being an ischemic event, his echocardiogram June 06, 2019 showed good left ventricular function and no pericardial effusion. I would not pursue further ischemic evaluation. (3) Hyperlipidemia: He should remain on statin therapy for his coronary artery disease, preferably the maximal tolerated dose, he seems to be doing well on atorvastatin 80 mg daily and should continue it. (4) Tachycardia: He was tachycardic on arrival, it appears to be sinus tachycardia and it has gradually improved and now his heart rate is in the 70s to 80s. I believe it is a sinus tachycardia, probably from anxiety. I do not believe he is an abnormal rhythm. Subjective Patient does not make a lot of sense, he continues to be delusional. His history is therefore suspect. At the moment he is not having cardiovascular complaints. Physical Exam Physical Exam: Constitutional: Alert, cooperative and in no distress. Pulmonary: Clear to auscultation bilaterally. Cardiac: Regular rhythm with no murmur, gallop or rub. Abdomen: Soft, nontender with normal bowel sounds. Extremities: +1 bilateral pretibial edema. Skin: No rash, ecchymoses or petechiae. Results & Data Vital Signs (Past 12 Hours) Vital Signs Temp Pulse Pulse Resp BP BP Pulse Ox 06/15/19 07:58 73 06/15/19 06:58 36.6 C 82 19 116/71 98 06/15/19 03:58 37.1 C 76 20 99/63 L 98 06/15/19 00:08 37.2 C 86 18 93/57 L 96 06/15/19 00:00 121 H Diagnostic Findings Cardiac Enzymes 06/14/19 Range/Units 08: AST 26 (15-37) U/L Troponin I < 0.015 (0-0.045) ng/ml Coagulation 06/14/19 Range/Units 08:19 PT 10.9 (9.0-12.0) Seconds APTT 23.1 (21.0-31.0) Seconds CBC 06/14/19 06/15/19 Range/Units 08:19 07:08 WBC 7.24 4.78 L (4.8-10.8) K/uL RBC 3.70 L 3.22 L (4.7-6.1) M/uL Hgb 11.9 L 10.3 L (14.0-18.0) g/dL Hct 35.8 L 32.3 L (42-52) % Plt Count 202 168 (130-400) K/uL Neut # (Auto) 6.78 H (1.4-6.5) K/uL Lymph # (Auto) 0.15 L (1.2-3.4) K/uL [place] # (Auto) 0.18 (0.11-0.59) K/uL Eos # (Auto) 0.05 (0-0.5) K/uL Baso # (Auto) 0.01 (0-0.2) K/uL Comprehensive Metabolic Panel 06/14/19 06/15/19 Range/Units 08:19 07:08 Sodium 136 140 (136-145) mmol/L Potassium 3.9 3.8 (3.5-5.1) mmol/L Chloride 106 109 H (98-107) mmol/L Carbon Dioxide 20 L 25 (21-32) mmol/L BUN 24 H 21 H (7-18) mg/dl Creatinine 1.47 H 1.42 H (0.6-1.4) mg/dl Glucose 194 H 132 H (70-99) mg/dl Calcium 8.7 8.1 L (8.5-10.1) mg/dl AST 26 (15-37) U/L ALT 44 (12-78) U/L Alkaline Phosphatase 150 H (45-117) U/L Total Protein 6.8 (6.4-8.2) gm/dl Albumin 3.2 L (3.4-5.0) gm/dl Intake and Output 06/14/19 06/15/19 06/15/19 22:59 06:59 14:59 Intake Total 1410 / 2415 215 / 2415 Output Total 400 / 1400 1000 / 1400 Balance 1010 / 1015 -785 / 1015 Intake: IV 1170 / 1835 115 / 1835 Normosol-R 500 ml @ 500 mls/hr 500 / 500 IV .Q1H ONE Rx#:[id number] Zosyn 3.375 gm In D5 100 ml @ 115 / 115 28.75 mls/hr IV Q8H NIKOLAI Rx#: [id number] Zosyn 4.5 gm In D5 100 ml @ 200 120 / 120 mls/hr IV 1600 ONE Rx#: [id number] Vancomycin HCl 2,500 mg In Nss 550 / 550 500 ml @ 200 mls/hr IV 1600 NIKOLAI Rx#:[id number] Oral 240 / 480 Tube Feeding 100 / 100 Output: Urine 400 / 1400 1000 / 1400 Other: Weight 91.7 kg PG Care Time/CCT Total # of Minutes Spent Total Time Spent with Patient: Total time spent is greater than 50% in coordination of care (as documented) at patient's floor/unit and/or counseling patient: (1) Fluid overload Hypervolemia type: unspecified Qualified Code(s): E87.70 - Fluid overload, unspecified (2) Hyperlipidemia Hyperlipidemia type: mixed hyperlipidemia Qualified Code(s): E78.2 - Mixed hyperlipidemia
[2019-06-15] MEDS: VANCOMYCIN HCL 1,500 MG in SODIUM CHLORIDE 0.9% 500 ML IV SCH (10:03)
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
[2019-06-15 13:53] LABS: Folate (Folic Acid) 4.16 ng/ml (>5.38)
[2019-06-15 15:03] LABS: Lyme Ab IgG w/WB Rflx Negative (Negative); Lyme Ab IgM w/WB Rflx Negative (Negative)
--- NOTE | 2019-06-15 15:36 | Hospitalist Progress Note ---
Date of Service June 15, 2019 Assessment & Plan (1) Delusional disorder: As per HPI, began abruptly in late February and worsening since. MRI brain on 06/14 shows new punctate lesion on the left parietal lobe. - Psych reconsulted - Would like to start risperidone - Had long discussion with [facility] (Julián Evans) with several thoughts: 1) This could be from his right parietal lobe infarct. He felt parietal lobe infarcts can cause complex somatic issues like this. 2) Could be complex partial seizures. Will get EEG. Mostly likely this area will not be seen on EEG, but if there are spikes from this area, it would point strongly to seizures contributing. Topamax will lessen the utility, but I do not want to hold a chronic medication. 3) Will get lumbar puncture given he had a fever on presentation. 4) Starting tomorrow, will start risperidone. Holding tonight for EEG tomorrow. (2) Sepsis: On presentation, he seemed to be in sepsis. He had tachycardia and fever. Started on abx and given gentle fluids. Source is unclear. He has diffuse redness on his skin, but he also has a history of eczematous dermatitis and is followed by dermatology. He has undergone multiple rounds of antibiotics with waxing and waning course. In the ED, he was told it was cellulitis, but I am not sure I agree with this. However, the legs do appear less red and warm today. CXR was clear. Urinalysis was clean. - Will get lumbar puncture tomorrow as above. Patient and family in agreement with this. - Continue abx for 48 hours (there is an auto-dropoff on the abx) - Monitor blood cultures from 06/14 (3) Diastolic CHF: Recently admitted for diastolic CHF exacerbation. Echo on 06/06/2019 was difficult study, but showed EF 65-70% with normal valves. - Volume status hard to determine -> LE edema; however, no rales on exam, no JVD, and CXR looks clear. - Cardiology consulted - Feel he needs diuresis. - Started gentle diuresis on 06/15 (4) CAD in [place] artery: S/p CABG at [facility] on 05/23/2019. - Continue ASA, statin, Imdur, beta-beto (5) Hypertension: BP stable at 120/75. - Continue beta-beto as above (6) Diabetes: A1c was 6.5% in 04/2019. High insulin resistance with high doses of long- acting and short-acting insulins. - Glycemic pharmacists to assist (7) Chronic kidney disease (CKD): Baseline Cr ranges from 1.4 - 1.8. - Presently at baseline with Cr of 1.4. - Monitor Cr (8) Migraines, neuralgic: Reported a headache to the ED provider, but to me he just says his head "is shrinking." Head CT on 06/14 was without significant findings. - Continue topiramate presumably for migraines (9) DVT prophylaxis: Heparin 5000 units SQ Q12h Subjective Reports continued parasites coming out of his body. Reports he is coughing them up and they fight. Cannot really comment on other symptoms. Review of Systems Review of Systems: Unobtainable due to mental health condition Physical Exam Constitutional: WD/WN, vitals as above + acute distress and cooperative Eyes: EOM intact bilaterally; no conjunctival abnormality ENMT: external ear and nose normal, oropharynx normal Neck: trachea midline, no thyromegaly + abnormal visual inspection (Wound on posterior neck) Respiratory: normal respiratory effort, lungs clear to auscultation no respiratory distress Cardiovascular: Rate/Rhythm: regular rhythm and + tachycardic Heart Sounds: normal S1 and normal S2 Extremities: + edema (1+ up to knee) Gastrointestinal (Abdomen): Inspection/Auscultation: abdomen normal to inspection; abdomen not distended Musculoskeletal: no cyanosis or clubbing, extremities motor strength 5/5 Skin: no rashes, warm and dry Neurologic: moves all extremities and awake Psychiatric: Orientation: alert, oriented to person and cooperative Speech: + pressured speech Affect: + anxious affect and + irritable affect Mood: + anxious mood Thought Process: + tangential thought process and + perseveration Results & Data Vital Signs (Past 12 Hours) Vital Signs Temp Pulse Pulse Resp BP BP Pulse Ox 06/15/19 15:15 75 06/15/19 11:44 36.2 C L 71 20 100/64 06/15/19 07:58 73 06/15/19 06:58 36.6 C 82 19 116/71 98 06/15/19 03:58 37.1 C 76 20 99/63 L 98 PG Care Time/CCT Total # of Minutes Spent Total Time Spent with Patient: Total time spent is greater than 50% in coordination of care (as documented) at patient's floor/unit and/or counseling patient: (1) Chronic kidney disease (CKD) Chronic kidney disease stage: stage 3 (moderate) Qualified Code(s): N18.3 - Chronic kidney disease, stage 3 (moderate) (2) Hypertension Hypertension type: essential hypertension Qualified Code(s): I10 - Essential (primary) hypertension
--- NOTE | 2019-06-15 16:11 | Ultrasound Report ---
US carotid doppler BI CLINICAL HISTORY: 74 years-old Male with Stroke. Acute strokelike symptoms COMPARISON: Brain MRI 06/14/2019 TECHNIQUE: Multiple real time sonographic images of the carotid bifurcations were obtained assessing wilkinson scale, color Doppler and spectral wave form appearance FINDINGS: Blood pressure on the right measures 100/64 and on the left measures 93/57. RIGHT CAROTID: The peak systolic velocity within the right ICA [id number] cm/sec. The end diasto lic velocity measured 38.1 cm/sec. The ICA to CCA ratio measured 1.2 which correlates with a stenosi s of 0-50%. LEFT CAROTID: The peak systolic velocity within the left ICA [id number] cm/sec. The end diastoli c velocity measured 33.3 cm/sec. The ICA to CCA ratio measured 1.3 which correlates with a stenosis o f 50-69%. There is normal antegrade vertebral flow bilaterally. Moderate mixed plaque of the bilateral carotid bulbs. IMPRESSION: 1. Moderate mixed plaque of the bilateral carotid bulbs with mildly elevated peak systolic velocitie s within the left ICA correlating with 50-69% stenosis. 2. Normal antegrade vertebral flow bilaterally. ACT 112: Negative or not required by law. The above report was generated using voice recognition software. It may contain grammatical, syntax o r spelling errors. Electronically signed by: Adria Pan M.D. 06/15/2019 4:10 PM
[2019-06-15] MEDS: FUROSEMIDE 20 MG in SYRINGE 0 ML IV SCH (17:05)
[2019-06-15] MEDS: CYANOCOBALAMIN 500 MCG TABLET (VITAMIN B-12) PO SCH (17:05)
[2019-06-15] MEDS: FOLIC ACID 1 MG TAB PO SCH (17:06)
[2019-06-15] MEDS ORDERED: risperiDONE 0.5 MG TABLET PO SCH (21:00)
[2019-06-15] MEDS: INSULIN GLARGINE SOLOSTAR 100 UNITS/ML 3 ML PEN SC SCH (21:43)
[2019-06-16] MEDS: VANCOMYCIN HCL 1,500 MG in SODIUM CHLORIDE 0.9% 500 ML IV SCH (04:24)
[2019-06-16] MEDS: PIPERACILLIN/TAZOBACTAM 3.375 GM in DEXTROSE 5% 100 ML IV SCH ×2 (06:10→13:56)
[2019-06-16 07:25] LABS: Hematocrit (blood only) 29.8 % (42-52); Hemoglobin 9.7 g/dL (14.0-18.0); Mean Corpuscular Hemoglobin 31.9 pg (25-34); Mean Corpuscular Hgb Conc 32.6 g/dL (32-36); Platelet Count 159 K/uL (130-400); RDW Coefficient of Variation 14.4 % (11.5-14.5); RDW Standard Deviation 51.5 fL (36.4-46.3); Red Blood Count 3.04 M/uL (4.7-6.1); White Blood Count 3.65 K/uL (4.8-10.8)
[2019-06-16 07:59] LABS: BUN Creatinine Ratio 14.6 (10-20); Calcium 8.1 mg/dl (8.5-10.1); Creatinine Clr Calc Pharmacy 53.9 ml/min; Est GFR (African American) 56.9; Est GFR (Non-African American) 49.1; Potassium 3.6 mmol/L (3.5-5.1)
[2019-06-16] MEDS: HEPARIN SOD 5,000 UNIT/0.5 ML VIAL SQ SCH ×2 (08:02→20:42)
[2019-06-16] MEDS: ASPIRIN 81 MG ECTAB PO SCH (08:03)
[2019-06-16] MEDS: INSULIN ASPART 100 UNITS/ML 3 ML PEN SC SCH ×4 (08:38→20:45)
[2019-06-16] MEDS: ISOSORBIDE MONO EXTENDED REL 60 MG TABCR PO SCH (08:39)
[2019-06-16] MEDS: ATORVASTATIN 40 MG TAB PO SCH (08:39)
[2019-06-16] MEDS: CITALOPRAM 20 MG TAB PO SCH (08:39)
[2019-06-16] MEDS: METOPROLOL TARTRATE 25 MG TAB PO SCH ×2 (08:39→20:44)
[2019-06-16] MEDS: PANTOprazole 40 MG TAB PO SCH (08:40)
[2019-06-16] MEDS: CYANOCOBALAMIN 500 MCG TABLET (VITAMIN B-12) PO SCH (08:40)
[2019-06-16] MEDS: FUROSEMIDE 20 MG in SYRINGE 0 ML IV SCH (08:40)
[2019-06-16] MEDS: TOPIRAMATE 100 MG TAB PO SCH ×2 (08:40→20:45)
[2019-06-16] MEDS: FOLIC ACID 1 MG TAB PO SCH (08:41)
[2019-06-16] MEDS: TRAMADOL HCL 50 MG TABLET PO PRN (08:46)
--- NOTE | 2019-06-16 08:53 | Electroencephalogram ---
EEG Procedure Note Date of Service June 16, 2019 Start / End Times Start Time: 751 End Time: [address] Aparicio History 74-year-old with history of acute delusions and confusion as well as a history of stroke, question seizure activity Home Medication List Home Medications Medication Instructions Recorded Confirmed Type diclofenac sodium [Voltaren] 2 gm TOP QID #100 gm 10/20/18 06/14/19 Rx pen needle, diabetic 31 gauge x #30 ea 12/03/18 06/14/19 Rx 5/16" aspirin 81 mg chewable tablet 81 mg PO Q OTHER DAY 02/05/19 06/14/19 History citalopram 20 mg tablet 20 mg PO MOWEFR tab 02/05/19 06/14/19 History nitroglycerin 0.4 mg sublingual 0.4 mg SL Q5M PRN #1 tab 02/05/19 06/14/19 History tablet ranitidine HCl 300 mg tablet 300 mg PO HS #90 tab 05/12/19 06/14/19 Rx melatonin 5 mg PO HS PRN 05/30/19 06/14/19 History metoprolol tartrate 75 mg tablet 75 mg PO BID #60 tab 05/30/19 06/14/19 Rx acetaminophen [Tylenol Extra 1,000 mg PO Q8H PRN 06/05/19 06/14/19 History Strength] insulin glargine 100 unit/mL (3 40 - 65 units SQ HS ml MDD 65 06/05/19 06/14/19 History mL) subcutaneous pen units insulin lispro 100) 100 unit/mL 20 - 40 units SUBCUT AC ml 06/05/19 06/14/19 History subcutaneous pen mupirocin [Centany] 1 appln TOP BID 06/05/19 06/14/19 History pantoprazole [Protonix] 40 mg PO QAM 06/05/19 06/14/19 History polyethylene glycol 3350 [Miralax] 17 gm PO QAM 06/05/19 06/14/19 History sennosides-docusate sodium [Senna 1 tab PO QAM 06/05/19 06/14/19 History with Docusate Sodium] topiramate [Topamax] 100 mg PO BID 06/05/19 06/14/19 History tramadol [Ultram] 50 mg PO Q6H PRN 06/05/19 06/14/19 History atorvastatin 80 mg tablet 80 mg PO QAM #90 tab 06/12/19 06/14/19 Rx citalopram 40 mg tablet 40 mg PO SUTUTHSA #90 tab 06/12/19 06/14/19 Rx furosemide 20 mg tablet 20 mg PO BID #90 tab 06/12/19 06/14/19 Rx isosorbide mononitrate 60 mg 60 mg PO QAM #90 tab 06/12/19 06/14/19 Rx tablet,extended release 24 hr potassium chloride 20 mEq 20 meq PO QAM #90 tab 06/12/19 06/14/19 Rx tablet,extended release pantoprazole 40 mg PO DAILY 06/14/19 06/14/19 History Inpatient Medication List Acetaminophen (Tylenol) 650 mg PO Q4H PRN PRN Reason: pain/fever Stop: 07/14/19 11:20 Last Admin: 06/14/19 22:08 Dose: 650 mg Documented by: [id number] Admin: 06/14/19 13:49 Dose: 650 mg Documented by: [id number] Aspirin (Ecotrin Ectab) 81 mg PO DAILY [facility] Stop: 07/15/19 08:59 Last Admin: 06/16/19 08:03 Dose: Not Given Documented by: [id number] Admin: 06/15/19 08:10 Dose: 81 mg Documented by: [id number] Atorvastatin [facility] Stop: 07/15/19 08:59 Last Admin: 06/16/19 08:39 Dose: 80 mg Documented by: [id number] Admin: 06/15/19 08:11 Dose: 80 mg Documented by: [id number] Citalopram Hydrobromide (Celexa) [facility] Stop: 07/16/19 08:59 Last Admin: 06/16/19 08:39 Dose: 20 mg Documented by: [id number] Cyanocobalamin (Vitamin B-12) 500 mcg PO QAM [facility] Stop: 07/15/19 16:59 Last Admin: 06/16/19 08:40 Dose: 500 mcg Documented by: [id number] Admin: 06/15/19 17:05 Dose: 500 mcg Documented by: [id number] Folic Acid (Folvite) 1 mg PO QAM [facility] Stop: 01/28/20 16:59 Last Admin: 06/16/19 08:41 Dose: 1 mg Documented by: [id number] Admin: 06/15/19 17:06 Dose: 1 mg Documented by: [id number] Heparin Sodium (Porcine) (Heparin Sodium (Porcine)) 5,000 units SQ Q12 [facility]IKOLAI Stop: 07/14/19 20:59 Last Admin: 06/16/19 08:02 Dose: Not Given Documented by: [id number] Admin: 06/15/19 21:44 Dose: 5,000 units Documented by: [id number] Cosigned by: [id number] Admin: 06/15/19 08:09 Dose: 5,000 units Documented by: [id number] Cosigned by: [id number] Admin: 06/14/19 22:15 Dose: 5,000 units Documented by: [id number] Cosigned by: [id number] Piperacillin Sod/Tazobactam (Sod 3.375 gm/ Dextrose) 115 mls @ 28.75 mls/hr IV Q8H NIKOLAI; Protocol Stop: 06/16/19 21:59 Last Admin: 06/16/19 06:10 Dose: 28.8 mls/hr Documented by: [id number] Infusion: 06/16/19 03:37 Dose: 0 mls/hr Documented by: [id number] Admin: 06/15/19 22:22 Dose: 28.8 mls/hr Documented by: [id number] Infusion: 06/15/19 17:42 Dose: 0 mls/hr Documented by: [id number] Admin: 06/15/19 13:17 Dose: 28.8 mls/hr Documented by: [id number] Infusion: 06/15/19 09:55 Dose: 0 mls/hr Documented by: [id number] Admin: 06/15/19 05:51 Dose: 28.8 mls/hr Documented by: [id number] Infusion: 06/15/19 02:16 Dose: 0 mls/hr Documented by: [id number] Admin: 06/14/19 22:12 Dose: 28.8 mls/hr Documented by: [id number] Vancomycin HCl 1,500 mg/ (Sodium Chloride) 530 mls @ 200 mls/hr IV Q18H NIKOLAI Stop: 06/16/19 15:59 Last Infusion: 06/16/19 07:08 Dose: 0 mls/hr Documented by: [id number] Admin: 06/16/19 04:24 Dose: 200 mls/hr Documented by: [id number] Infusion: 06/15/19 12:45 Dose: 0 mls/hr Documented by: [id number] Admin: 06/15/19 10:03 Dose: 200 mls/hr Documented by: [id number] Furosemide 20 mg/ Syringe 2 mls @ 4 mls/min IV DAILY [facility] Stop: 07/15/19 16:59 Last Admin: 06/16/19 08:40 Dose: 4 mls/min Documented by: [id number] Admin: 06/15/19 17:05 Dose: 4 mls/min Documented by: [id number] Insulin Aspart (Novolog Flexpen) 0 units SC ACHS NIKOLAI Stop: 07/14/19 12:59 Last Admin: 06/16/19 08:38 Dose: 7 units Documented by: [id number] Cosigned by: [id number] Admin: 06/15/19 21:45 Dose: Not Given Documented by: [id number] Cosigned by: [id number] Admin: 06/15/19 17:04 Dose: 9 units Documented by: [id number] Cosigned by: [id number] Admin: 06/15/19 11:45 Dose: 8 units Documented by: [id number] Cosigned by: [id number] Admin: 06/15/19 08:08 Dose: 7 units Documented by: [id number] Cosigned by: [id number] Admin: 06/14/19 22:11 Dose: 2 units Documented by: [id number] Cosigned by: [id number] Admin: 06/14/19 17:11 Dose: 5 units Documented by: [id number] Cosigned by: [id number] Admin: 06/14/19 14:04 Dose: 4 units Documented by: [id number] Cosigned by: [id number] Insulin Glargine (Lantus Solostar Pen) 0 units SC HS NIKOLAI; Protocol Stop: 07/14/19 20:59 Last Admin: 06/15/19 21:43 Dose: 35 units Documented by: [id number] Cosigned by: [id number] Admin: 06/14/19 22:10 Dose: 35 units Documented by: [id number] Cosigned by: [id number] Isosorbide Mononitrate (Imdur Extended Rel) 60 mg PO QAM NIKOLAI Stop: 07/15/19 08:59 Last Admin: 06/16/19 08:39 Dose: 60 mg Documented by: [id number] Admin: 06/15/19 08:11 Dose: 60 mg Documented by: [id number] Metoprolol Tartrate (Lopressor) 75 mg PO BID [facility] Stop: 07/14/19 20:59 Last Admin: 06/16/19 08:39 Dose: 75 mg Documented by: [id number] Admin: 06/15/19 22:23 Dose: Not Given Documented by: [id number] Admin: 06/15/19 08:10 Dose: 75 mg Documented by: [id number] Admin: 06/14/19 22:09 Dose: 75 mg Documented by: [id number] Pantoprazole Sodium (Protonix) 40 mg PO QAM NIKOLAI Stop: 07/15/19 08:59 Last Admin: 06/16/19 08:40 Dose: 40 mg Documented by: [id number] Admin: 06/15/19 08:10 Dose: 40 mg Documented by: [id number] Topiramate (Topamax) 100 mg PO BID [facility] Stop: 07/14/19 20:59 Last Admin: 06/16/19 08:40 Dose: 100 mg Documented by: [id number] Admin: 06/15/19 21:43 Dose: 100 mg Documented by: [id number] Admin: 06/15/19 08:10 Dose: 100 mg Documented by: [id number] Admin: 06/14/19 22:08 Dose: 100 mg Documented by: [id number] Tramadol HCl (Ultram) 50 mg PO Q6H PRN PRN Reason: pain Stop: 07/14/19 11:20 Last Admin: 06/15/19 08:21 Dose: 50 mg Documented by: [id number] Discontinued Medications Aspirin (Aspirin) 324 mg PO NOW STA Stop: 06/14/19 07:52 Last Admin: 06/14/19 09:04 Dose: 324 mg Documented by: [id number] Citalopram Hydrobromide (Celexa) 40 mg PO [id number]@0900 [facility] Stop: 07/14/19 11:20 Last Admin: 06/15/19 08:10 Dose: 40 mg Documented by: [id number] Admin: 06/14/19 12:27 Dose: 40 mg Documented by: [id number] Sodium Chloride (Nss 1000ml) 500 mls @ 999 mls/hr IV .Q31M ONE Stop: 06/14/19 09:37 Last Infusion: 06/14/19 09:41 Dose: 0 mls/hr Documented by: [id number] Admin: 06/14/19 09:10 Dose: 999 mls/hr Documented by: [id number] Ceftriaxone Sodium (Rocephin) 1,000 mg in 50 mls @ 100 mls/hr IV NOW STA Stop: 06/14/19 09:45 Last Infusion: 06/14/19 10:00 Dose: 0 mls/hr Documented by: [id number] Admin: 06/14/19 09:30 Dose: 100 mls/hr Documented by: [id number] Parenteral Electrolytes (Normosol-R) 500 mls @ 500 mls/hr IV .Q1H ONE Stop: 06/14/19 16:16 Last Infusion: 06/14/19 17:32 Dose: 0 mls/hr Documented by: [id number] Admin: 06/14/19 16:26 Dose: 500 mls/hr Documented by: [id number] Piperacillin Sod/Tazobactam (Sod 4.5 gm/ Dextrose) 120 mls @ 200 mls/hr IV 1600 ONE; Protocol Stop: 06/14/19 16:35 Last Infusion: 06/14/19 17:07 Dose: 0 mls/hr Documented by: [id number] Admin: 06/14/19 16:25 Dose: 200 mls/hr Documented by: [id number] Vancomycin HCl 2,500 mg/ (Sodium Chloride) 550 mls @ 200 mls/hr IV 1600 NIKOLAI Stop: 06/14/19 18:44 Last Infusion: 06/14/19 21:33 Dose: 0 mls/hr Documented by: [id number] Admin: 06/14/19 16:26 Dose: 200 mls/hr Documented by: [id number] Description This is a 21 electrode EEG with a single channel dedicated to limited EKG. The electrodes were placed in accordance with the International 10-20 system. Interpretation The predominant background activity consists of an irregular 9 Hz activity, of up to 40 mV in amplitude,seen symmetrically distributed over the posterior head regions bilaterally. This activity attenuates with eye-opening and other alerting procedures. Photic stimulation was performed and elicited no change in the background activity and no abnormal responses were seen. Hyperventilation was not performed. A significant amount of muscle and movement/eye blink artifact activity contaminated the recording , hindering interpretation from time to time. Patient was really not cooperative and kept his eyes open the majority of the recording. Throughout the recording, no focal abnormalities, abnormal slow activity, or potentially epileptogenic discharges are seen. The patient did not entered the drowsy state or deeper sleep stages. In summary, this EEG was unremarkable during wakefulness, however, he was not cooperative and this was a suboptimal study due to his inability to keep his eyes closed. No focal abnormalities, potentially epileptogenic discharges, or abnormal slow activity otherwise was seen. Clinical Correlation The abscence of potentially epileptogenic activity does not exclude a seizure disorder, since interictally, EEGs can be normal. Clinical correlation is required. [facility] EEG Procedure Codes Indication for Procedure (1) Delusional disorder: (2) Cognitive disorder: (3) Seizure-like activity: Neurology Neurology: [id number] EEG include record awake & drowsy
[2019-06-16] MEDS ORDERED: CITALOPRAM 20 MG TAB PO SCH (09:00)
--- NOTE | 2019-06-16 09:28 | Pharmacy Report ---
Pharmacy Glycemic Short Note 2 - Date of Service June 16, 2019 - Glycemic Short BSG Results (Last 24 hours): 06/15/19 06/15/19 06/15/19 11:41 16:24 20:15 Glucose POC Glucose 173 H 128 H 128 H 06/16/19 06/16/19 06:51 07:30 Glucose 95 POC Glucose 104 H OUTPATIENT ANTIDIABETIC REGIMEN: * Lantus 40-65 units SQ qHS * Novolog 20-40 units with meals * A1c = 6.5% 05/15/19 ASSESSMENT: * BSGs over the previous 24hrs have been reasonable: [phone]/dL. He requires 45-60 units while admitted. Vanco/Zosyn continue. Diet continue. Risperdal is a new start, although not as disruptive to the endocrine system as clozapine/olanzapine, it still can confer insulin resistance. PLAN FOR INPATIENT GLYCEMIC CONTROL: * Basal insulin - greatly reduced dose as compared to outpt Rx * Lantus 35-40 units SQ qHS * 35 units for BSG < 180, 40 units for BSG of 180 or more * Bolus insulin * NovoLog per scale ACHS or Q6hrs while NPO * Goal Range: Low 110 mg/dL - High 140 mg/dL * Correction Factor: 30 mg/dL/unit * Nutritional / Prandial insulin per carb ratio of 1 unit per 8 grams CHO consumed
--- NOTE | 2019-06-16 10:47 | Fluoroscopy Report ---
FLUOROSCOPIC GUIDED LUMBAR PUNCTURE ATTEMPT CLINICAL HISTORY: Fever. Change in mental status. PROCEDURE: The risks, benefits, and alternatives to the procedure were discussed with the patient who voiced understanding. Written informed consent was obtained. The patient was placed prone on the flu oroscopy table. The lower back was prepped and draped in the usual sterile fashion. 1% lidocaine was used for local anesthesia. Fluoroscopic-guided lumbar puncture was attempted at the L3-L4, L4-L5, an d L5-S1 interlaminar spaces utilizing both 20 and 22-gauge needles. The lumbar puncture attempt was u nsuccessful, and discontinued at the patient's request. A single spot image was saved. The patient to lerated the procedure well. There were no immediate complications. The [facility] was [facility] for further observation. Fluoroscopy time: 1.1 minutes. IMPRESSION: Fluoroscopic guided lumbar puncture was attempted and unsuccessful. There were no immedia te complications. ACT 112: Negative or not required by law. Electronically signed by: Jonny Zambrano M.D. 06/16/2019 10:45 AM
--- NOTE | 2019-06-16 18:04 | Hospitalist Progress Note ---
Date of Service June 16, 2019 Assessment & Plan (1) Delusional disorder: As per HPI, began abruptly in late February and worsening since. MRI brain on 06/14 shows new punctate lesion on the left parietal lobe. Appreciate psych consultation, patient is now on risperidone at night. Will have to monitor for improvement in patient's delusional behavior. (2) Sepsis: On presentation, he seemed to be in sepsis. He had tachycardia and fever. Started on abx and given gentle fluids. Source is unclear. He has diffuse redness on his skin, but he also has a history of eczematous dermatitis and is followed by dermatology. He has undergone multiple rounds of antibiotics with waxing and waning course. In the ED, he was told it was cellulitis, but I am not sure I agree with this. However, the legs do appear less red and warm today. CXR was clear. Urinalysis was clean. -Patient has been afebrile. As they could not identify possible source of infection, the antibiotics were discontinued. Patient is remained afebrile. Of note, LP was attempted multiple times but they were not able to obtain CSF. EEG was also performed which was essentially unremarkable. (3) Diastolic CHF: Recently admitted for diastolic CHF exacerbation. Echo on 06/06/2019 was difficult study, but showed EF 65-70% with normal valves. - Volume status hard to determine -> LE edema; however, no rales on exam, no JVD, and CXR looks clear. - Cardiology consulted - Feel he needs diuresis. - Started gentle diuresis on 06/15, on Lasix 20 mg IV daily. Positive fluid balance, will increase to 40 mg daily. (4) CAD in [place] artery: S/p CABG at [place] on 05/23/2019. - Continue ASA, statin, Imdur, beta-beto (5) Hypertension: BP stable at 120/75. - Continue beta-beto as above (6) Diabetes: A1c was 6.5% in 04/2019. High insulin resistance with high doses of long- acting and short-acting insulins. - Glycemic pharmacists to assist (7) Chronic kidney disease (CKD): Baseline Cr ranges from 1.4 - 1.8. - Presently at baseline with Cr of 1.4. - Monitor Cr while on diuresis (8) Migraines, neuralgic: Reported a headache to the ED provider, but to me he just says his head "is shrinking." Head CT on 06/14 was without significant findings. - Continue topiramate presumably for migraines (9) DVT prophylaxis: Heparin 5000 units SQ Q12h Subjective Patient seen and examined. He seems to be alert and oriented. However, we did have a somewhat bizarre conversation as he feels that he is "covered in worms". He asked me to wear gloves when I entered the room so I would not get the worms on me. Physical Exam Constitutional: cooperative; no acute distress Neck: trachea midline, no thyromegaly Respiratory: normal respiratory effort Auscultation: lungs clear to auscultation bilaterally; no crackles, no rales, no rhonchi and no wheezes Cardiovascular: Rate/Rhythm: regular rate and regular rhythm Heart Sounds: normal S1, normal S2 and + murmur Gastrointestinal (Abdomen): Inspection/Auscultation: abdomen normal to inspection Percussion/Palpation: abdomen soft; abdomen nontender, no guarding, abdomen not rigid and no hepatosplenomegaly Skin: Mild erythema of the bilateral lower extremities, more consistent with chronic venous stasis. No erythema. No open areas. Patient did identify wound on his right great toe that he also felt was infested, it appeared to be clean with a Band-Aid in place which I did not disturb. Results & Data Vital Signs (Past 12 Hours) Vital Signs Temp Pulse Pulse Resp BP Pulse Ox 06/16/19 16:00 36.8 C 90 18 121/68 95 06/16/19 15:07 69 06/16/19 11:37 37.0 C 89 16 111/69 98 06/16/19 07:54 36.8 C 84 18 122/62 96 06/16/19 07:29 79 PG Care Time/CCT Total # of Minutes Spent Total Time Spent with Patient: Total time spent is greater than 50% in coordination of care (as documented) at patient's floor/unit and/or counseling patient: (1) Hypertension Hypertension type: essential hypertension Qualified Code(s): I10 - Essential (primary) hypertension (2) Chronic kidney disease (CKD) Chronic kidney disease stage: stage 3 (moderate) Qualified Code(s): N18.3 - Chronic kidney disease, stage 3 (moderate)
[2019-06-16] MEDS: INSULIN GLARGINE SOLOSTAR 100 UNITS/ML 3 ML PEN SC SCH (20:43)
[2019-06-16] MEDS ORDERED: risperiDONE 0.5 MG TABLET PO SCH (21:00)
[2019-06-16 23:11] LABS: Rapid Plasma Reagin Nonreactive (Nonreactive)
[2019-06-17 07:44] LABS: Basophils # (auto) 0.02 K/uL (0-0.2); Basophils % (auto) 0.6 %; Eosinophils # (auto) 0.23 K/uL (0-0.5); Eosinophils % (auto) 6.7 %; Hemoglobin 10.4 g/dL (14.0-18.0); Immature Granulocytes # (auto) 0.03 K/uL (0.00-0.02); Immature Granulocytes % (auto) 0.9 %; Lymphocytes # (auto) 0.56 K/uL (1.2-3.4); Lymphocytes % (auto) 16.3 %; Mean Corpuscular Hemoglobin 31.2 pg (25-34); Mean Corpuscular Hgb Conc 31.5 g/dL (32-36); Mean Corpuscular Volume 99.1 fL (80-100); Mean Platelet Volume 9.5 fL (7.4-10.4); Monocytes # (auto) 0.33 K/uL (0.11-0.59); Monocytes % (auto) 9.6 %; Neutrophils # (auto) 2.26 K/uL (1.4-6.5); Neutrophils % (auto) 65.9 %; Platelet Count 168 K/uL (130-400); RDW Coefficient of Variation 14.2 % (11.5-14.5); RDW Standard Deviation 51.7 fL (36.4-46.3); Red Blood Count 3.33 M/uL (4.7-6.1); White Blood Count 3.43 K/uL (4.8-10.8)
[2019-06-17] MEDS: INSULIN ASPART 100 UNITS/ML 3 ML PEN SC SCH ×4 (08:20→21:20)
[2019-06-17] MEDS: FUROSEMIDE 40 MG in SYRINGE 0 ML IV SCH (08:21)
[2019-06-17] MEDS: FOLIC ACID 1 MG TAB PO SCH (08:21)
[2019-06-17] MEDS: ASPIRIN 81 MG ECTAB PO SCH (08:22)
[2019-06-17] MEDS: CITALOPRAM 20 MG TAB PO SCH (08:22)
[2019-06-17] MEDS: METOPROLOL TARTRATE 25 MG TAB PO SCH ×2 (08:22→21:20)
[2019-06-17] MEDS: PANTOprazole 40 MG TAB PO SCH (08:22)
[2019-06-17] MEDS: CYANOCOBALAMIN 500 MCG TABLET (VITAMIN B-12) PO SCH (08:22)
[2019-06-17] MEDS: ISOSORBIDE MONO EXTENDED REL 60 MG TABCR PO SCH (08:22)
[2019-06-17] MEDS: ATORVASTATIN 40 MG TAB PO SCH (08:22)
[2019-06-17] MEDS: HEPARIN SOD 5,000 UNIT/0.5 ML VIAL SQ SCH ×2 (08:22→21:18)
[2019-06-17] MEDS: TOPIRAMATE 100 MG TAB PO SCH ×2 (08:22→21:19)
--- NOTE | 2019-06-17 08:45 | Pharmacy Report ---
Pharmacy Glycemic Short Note 2 - Date of Service June 17, 2019 - Glycemic Short BSG Results (Last 24 hours): 06/16/19 06/16/19 06/16/19 11:25 16:26 20:17 POC Glucose 181 H 125 H 211 H 06/17/19 07:40 POC Glucose 95 OUTPATIENT ANTIDIABETIC REGIMEN: * Lantus 40-65 units SQ qHS * Novolog 20-40 units with meals * A1c = 6.5% 05/15/19 ASSESSMENT: * BSGs over the previous 24hrs have been reasonable: 416-700-488-211-95mg/dL. He requires 45-65u/D units while admitted, basal heavy. Vanco/Zosyn d/c'd yesterday after discussion w/ attending. Diet continues. Risperdal is a new start, although not as disruptive to the endocrine system as clozapine/olanzapine, it still can confer insulin resistance. PLAN FOR INPATIENT GLYCEMIC CONTROL: * Basal insulin - reduced dose as compared to outpt Rx * Lantus 35-40 units SQ qHS * 35 units for BSG < 180, 40 units for BSG of 180 or more * Bolus insulin * NovoLog per scale ACHS or Q6hrs while NPO * Goal Range: Low 110 mg/dL - High 140 mg/dL * Correction Factor: 30 mg/dL/unit * Nutritional / Prandial insulin per carb ratio of 1 unit per 8 grams CHO consumed
[2019-06-17 09:13] LABS: BUN Creatinine Ratio 15.9 (10-20); Calcium 8.3 mg/dl (8.5-10.1); Creatinine Clr Calc Pharmacy 61.8 ml/min; Est GFR (African American) 67.1; Est GFR (Non-African American) 57.9; Magnesium 2.3 mg/dl (1.8-2.4); Potassium 3.7 mmol/L (3.5-5.1)
--- NOTE | 2019-06-17 09:46 | Cardiology Progress Note ---
Date of Service June 17, 2019 Assessment & Plan (1) Hallucination: He seems to have visual hallucinations with descriptions of worms and bugs coming out of his skin. 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 I therefore did not draw a lead level although if he has never had one that might be something worth doing, I doubt that relates to this however. (2) Fluid overload: He presented initially to the office and then to the hospital with evidence of fluid overload following surgery. That had improved substantially with diuresis. His weight is now up, his creatinine is down but I am worried that he may go back into heart failure if we leave him fluid overloaded. I would err on the side of keeping him a little bit leather drier than he currently is but I will leave that up to the primary service. (3) CAD in [place] artery: He recently underwent CABG x3 on 05/24/19. There is no evidence of this being an ischemic event, his echocardiogram June 06, 2019 showed good left ventricular function and no pericardial effusion. I would not pursue further ischemic evaluation. (4) Hyperlipidemia: He should remain on statin therapy for his coronary artery disease, preferably the maximal tolerated dose, he seems to be doing well on atorvastatin 80 mg daily and should continue it. (5) Tachycardia: He was tachycardic on arrival, it appears to be sinus tachycardia and it has gradually improved and now his heart rate is generally well controlled. I believe it was a sinus tachycardia, probably from anxiety. I do not believe he has had an abnormal rhythm here. Subjective He is in good spirits, he continues to have a delusion/hallucination about bugs and worms and his prior exposure to toxins. No cardiovascular symptoms. Physical Exam Physical Exam: Constitutional: Alert, cooperative and in no distress. Pulmonary: Clear to auscultation bilaterally. Cardiac: Regular rhythm with no murmur, gallop or rub. Abdomen: Soft, nontender with normal bowel sounds. Extremities: +1 bilateral pretibial edema. Skin: No rash, ecchymoses or petechiae. Results & Data Vital Signs (Past 12 Hours) Vital Signs Temp Pulse Pulse Resp BP BP Pulse Ox 06/17/19 08:00 36.5 C 66 22 110/62 96 06/17/19 07:48 67 06/17/19 05:21 36.5 C 66 108/63 99 06/17/19 00:14 36.5 C 63 16 101/63 98 06/17/19 00:00 61 Laboratory Results CBC 06/17/19 Range/Units 07:29 WBC 3.43 L (4.8-10.8) K/uL RBC 3.33 L (4.7-6.1) M/uL Hgb 10.4 L (14.0-18.0) g/dL Hct 33.0 L (42-52) % Plt Count 168 (130-400) K/uL Neut # (Auto) 2.26 (1.4-6.5) K/uL Lymph # (Auto) 0.56 L (1.2-3.4) K/uL Young # (Auto) 0.33 (0.11-0.59) K/uL Eos # (Auto) 0.23 (0-0.5) K/uL Baso # (Auto) 0.02 (0-0.2) K/uL Comprehensive Metabolic Panel 06/17/19 Range/Units 07:29 Sodium 139 (136-145) mmol/L Potassium 3.7 (3.5-5.1) mmol/L Chloride 111 H (98-107) mmol/L Carbon Dioxide 22 (21-32) mmol/L BUN 20 H (7-18) mg/dl Creatinine 1.23 (0.6-1.4) mg/dl Glucose 93 (70-99) mg/dl Calcium 8.3 L (8.5-10.1) mg/dl Intake and Output 06/16/19 06/17/19 06/17/19 22:59 06:59 14:59 Intake Total 402.72 / 1397.72 Output Total 600 / 1600 1000 / 1600 Balance -197.28 / -202.28 -1000 / -202.28 Intake: IV 102.72 / 747.72 Zosyn 3.375 gm In D5 100 ml @ 102.72 / 217.72 28.75 mls/hr IV Q8H [facility] Rx#: [id number] Oral 300 / 650 Output: Urine 600 / 1600 1000 / 1600 Other: Weight 98.1 kg Diagnostic Findings Telemetry: Sinus rhythm, no significant arrhythmia PG Care Time/CCT Total # of Minutes Spent Total Time Spent with Patient: Total time spent is greater than 50% in coordination of care (as documented) at patient's floor/unit and/or counseling patient: (1) Fluid overload Hypervolemia type: unspecified Qualified Code(s): E87.70 - Fluid overload, unspecified (2) Hyperlipidemia Hyperlipidemia type: mixed hyperlipidemia Qualified Code(s): E78.2 - Mixed hyperlipidemia
[2019-06-17] MEDS: CYANOCOBALAMIN 1000 MCG/ML VIAL IM SCH (11:53)
--- NOTE | 2019-06-17 12:02 | Psychiatric Progress Note ---
Date of Service June 17, 2019 Impression / Recommendations Impression Per initial psychiatric consultation (06/15/19) - This is an interesting gentleman with recent onset of delusions primarily somatic (parasitosis) as well as some paranoid ideation. This occurs in the setting of multiple medical morbidities including recent quad bypass and evidence of cerebrovascular disease and history of stroke. He also has a history of heavy longstanding alcohol use but not active. At this time he appears to be demonstrating symptoms of a delusional disorder, primarily somatic type. This can present at any age however may also be related to underlying brain pathology such as progression of cerebrovascular disease. Most recent neuroimaging reviewed as per HPI suggests progression of disease burden of cerebrovascular disease. Consider possibility of historical chemical/heavy metal exposure and work-up for such. B vitamin levels pending. Thyroid normal earlier this month. He does not appear delirious. Unfortunately delusional disorders can sometimes be fairly refractory to pharmacotherapy and often take weeks to months to improve rather than days to weeks once antipsychotic treatment is initiated. In the absence of an obvious acute safety concern I am not certain that inpatient hospitalization would provide much additional benefit however we will continue to expand database and consider his recent behavior at home with his before making an ultimate determination about disposition. He does sound to have an underlying longstanding temper which may predispose him to behavioral dyscontrol and again he did appear somewhat disinhibited on interview today. (1) Delusional disorder: 06/15 -For somatic delusions of parasitosis, will initiate Risperdal 0.5 mg p.o. nightly. Atypical antipsychotic treatment accepted by patient following discussion of common risks and benefits for help with his concerning somatic complaint of parasites being extruded from his body. He demonstrated limited to absent insight about the illogical nature of this however he can appreciate that the experience is upsetting and asks for treatment -Patient does have a prior diagnosis of both diabetes and dyslipidemia and he is obese. He will require ongoing metabolic monitoring on the antipsychotic -For first instance of delusional disorder I would recommend treatment with antipsychotic to remission of symptoms and then maintain the antipsychotic for 6 months to 1 year before attempting to withdraw to reduce risk for relapse. If he does well with the Risperdal this ultimately should be tapered back off if his symptoms come to full remission -In effort to reduce level of activation, will reduce Celexa from alternating dose of 40 mg and 20mg to simply 20mg daily. Watch mood trend on reduced ssri. Alternative antidepressant treatment options could certainly be considered in the setting of advanced age and cardiac disease however this would be more appropriately addressed in the outpatient setting -I do recommend outpatient psychiatric follow-up and we will attempt to facilitate referral if not already done -As above, I presently do not appreciate suicidal or homicidal ideation or other acute safety concern based on available information that would necessitate psychiatric hospitalization for safety however we will defer the ultimate decision about disposition pending discussion with patient's with whom he lives. 06/17 - Pt continues to verbalize delusional thought content - feeling that there are worms crawling out of him, and that his skin is disintegrating from history of chemical exposure. He continues to lack insight as to the reality of his situation, and continues to request a toxicology consultation. 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 Consider neurology consultation if behavior continues to be unchanged - As delusional beliefs are ongoing, and patient is denying concerns related to initiation of risperidone, would suggest titration of risperidone to 1mg qHS starting this evening. Can consideration further titration based on response and tolerance but would trial this dose for several days and observe for response. - Will continue to follow, family receiving updates on our involvement as requested Risk Factors Assessment Male: Yes : Yes Health Problems: Yes Substance Use Disorders: No Previous Attempt: No Previous Psychiatric Hospitalization: No Hopelessness: No Smoker: No Protective Factors Assessment : Yes Responsible for Young Children: No Interval History Chief Complaint "I'd feel a lot better if these gosh lopez worms would stay out of me." Review of Systems Notes Constitutional: continues to believe worms are crawling out of his skin, causing skin sores Cardiovascular: denied Respiratory: denied Gastrointestinal: reports he was "throwing up worms" early this morning Neurological: denied Psychiatric: denies symptoms other than stated above Total of at least 10 systems reviewed, pertinent positives as above and in HPI. Subjective Subjective Patient's case was reviewed and discussed during morning report with psychiatric nurse liaison and supervising psychiatrist. Patient was seen initially on psychiatric consult service on 06/15/2019, and low-dose risperidone was recommended to begin at 0.5 mg nightly. Initiation of this medication was held according to primary team, as patient was scheduled for additional testing and there was question of medication initiation skewing results. Patient did receive his first dose of the medication last evening, and is therefore seen for follow-up today. Patient continues to experience the presence of worms crawling out of his skin. He verbalizes to this provider "I do feel a lot better if these gosh lopez worms would stay out of me." Patient informs this provider that he was "throwing these warms up" early this morning, patient reports around 01:00. He continues to point out to this provider a long arm hair, and a particular spot on the back of his neck where hair is growing more quickly. Patient continues to believe that all of these concerns are related to a history of chemical exposure in the past. He continues to verbalize desire to talk to a gaming host for appropriate treatment. Patient is now stating that the chemicals are "disintegrating my skin, the only thing that causes that is cancer. I want to talk to a cancer doctor to." Patient was asked about his comfort here in the hospital, and he denies significant increase in anxiety or any muscle stiffness. Patient is not verbalizing any concerns that seem to be related to initiation of risperidone. Patient does state that he has a history of difficulty sleeping, but did not experience any significant concerns last evening. Patient was informed we will continue to follow along with his treatment and make recommendations while he is here in the hospital. Patient states "I need these worms gone before discharge, I will and even think about going home until they are not here anymore." Physical Exam Psychiatric Orientation: alert, oriented x 3 and cooperative Apperance: appropriately dressed (in hospital gown) and + disheveled (wilkinson hair appearing clean, but unkempt today) cast applied to left forearm Eye Contact: good eye contact Motor Behavior: no abnormal motor movements (observed while sitting in bedside chair) Speech: normal rate/rhythm/volume of speech (loud volume, speech is not pressured but pt is somewhat hyperverbal) Affect: + labile affect (somewhat-appearing euthymic at times, but also visible frustrated at times) Mood: no depressed mood Thought Process: goal directed thought process and + perseveration (on somatic/delusional complaints "worms on my body" and chemical exposure) Thought Content: + paranoid and + delusions Suicidal Thoughts: denies suicidal thoughts and denies suicidal intent Homicidal Thoughts: denies homicidal thoughts Hallucinations: + visual hallucinations and + tactile hallucinations; no auditory hallucinations Pt stating he can both see and feel the worms crawling on his skin. Cognition: attention grossly intact and language grossly intact Insight: + impaired insight Judgement: + limited judgement Vital Signs (Past 24 Hours) Last Vital Signs Temp 36.5 C 06/17/19 08:00 Pulse 66 06/17/19 08:00 Resp 22 06/17/19 08:00 BP 110/62 06/17/19 08:00 Pulse Ox 96 06/17/19 08:00 Results & Data Laboratory Results Laboratory Results - last 24 hr 06/15/19 06/16/19 06/16/19 12:51 16:26 20:17 WBC RBC Hgb Hct MCV MCH MCHC RDW Std Deviation RDW Coeff of Gissel Plt Count MPV Immature Gran % (Auto) Neut % (Auto) Lymph % (Auto) Hancock % (Auto) Eos % (Auto) Baso % (Auto) Immature Gran # (Auto) Neut # (Auto) Lymph # (Auto) Hancock # (Auto) Eos # (Auto) Baso # (Auto) Sodium Potassium Chloride Carbon Dioxide Anion Gap BUN Creatinine Est Cr Clr Drug Dosing Est GFR ( Amer) Est GFR (Non-Af Amer) BUN/Creatinine Ratio Glucose POC Glucose 125 H 211 H Calcium Magnesium RPR Nonreactive 06/17/19 06/17/19 06/17/19 07:29 07:29 07:40 WBC 3.43 L RBC 3.33 L Hgb 10.4 L Hct 33.0 L MCV 99.1 MCH 31.2 MCHC 31.5 L RDW Std Deviation 51.7 H RDW Coeff of Gissel 14.2 Plt Count 168 MPV 9.5 Immature Gran % (Auto) 0.9 Neut % (Auto) 65.9 Lymph % (Auto) 16.3 Hancock % (Auto) 9.6 Eos % (Auto) 6.7 Baso % (Auto) 0.6 Immature Gran # (Auto) 0.03 H Neut # (Auto) 2.26 Lymph # (Auto) 0.56 L Hancock # (Auto) 0.33 Eos # (Auto) 0.23 Baso # (Auto) 0.02 Sodium 139 Potassium 3.7 Chloride 111 H Carbon Dioxide 22 Anion Gap 6.0 BUN 20 H Creatinine 1.23 Est Cr Clr Drug Dosing 61.8 Est GFR ( Amer) 67.1 Est GFR (Non-Af Amer) 57.9 BUN/Creatinine Ratio 15.9 Glucose 93 POC Glucose 95 Calcium 8.3 L Magnesium 2.3 RPR 06/17/19 11:30 WBC RBC Hgb Hct MCV MCH MCHC RDW Std Deviation RDW Coeff of Gissel Plt Count MPV Immature Gran % (Auto) Neut % (Auto) Lymph % (Auto) Hancock % (Auto) Eos % (Auto) Baso % (Auto) Immature Gran # (Auto) Neut # (Auto) Lymph # (Auto) Hancock # (Auto) Eos # (Auto) Baso # (Auto) Sodium Potassium Chloride Carbon Dioxide Anion Gap BUN Creatinine Est Cr Clr Drug Dosing Est GFR ( Amer) Est GFR (Non-Af Amer) BUN/Creatinine Ratio Glucose POC Glucose 115 H Calcium Magnesium RPR Current Inpatient Medications Current Inpatient Medications: Current Inpatient Medications Acetaminophen (Tylenol) 650 mg PO Q4H PRN PRN Reason: pain/fever Stop: 07/14/19 11:20 Last Admin: 06/14/19 22:08 Dose: 650 mg Documented by: Aspirin (Ecotrin Ectab) 81 mg PO DAILY [facility] Stop: 07/15/19 08:59 Last Admin: 06/17/19 08:22 Dose: 81 mg Documented by: Atorvastatin Calcium (Lipitor) 80 mg PO QAM [facility] Stop: 07/15/19 08:59 Last Admin: 06/17/19 08:22 Dose: 80 mg Documented by: Citalopram Hydrobromide (Celexa) 20 mg PO QAM [facility] Stop: 07/16/19 08:59 Last Admin: 06/17/19 08:22 Dose: 20 mg Documented by: Cyanocobalamin (Vitamin B-12) 1,000 mcg IM DAILY [facility] Stop: 07/17/19 09:59 Last Admin: 06/17/19 11:53 Dose: 1,000 mcg Documented by: Dextrose (Dextrose 50%) 25 - 50 ml IV UD PRN; Protocol PRN Reason: Hypoglycemia Protocol Stop: 07/14/19 11:20 Folic Acid (Folvite) 1 mg PO QAM [facility] Stop: 07/15/19 16:59 Last Admin: 06/17/19 08:21 Dose: 1 mg Documented by: Glucagon (Glucagen) 1 mg SQ UD PRN; Protocol PRN Reason: Hypoglycemia Protocol Stop: 07/14/19 11:20 Glucose (Dex4 Glucose) 4 - 8 tabs PO UD PRN; Protocol PRN Reason: Hypoglycemia Protocol Stop: 07/14/19 11:20 Glucose (Glucose 40%) 15 - 30 gm PO UD PRN; Protocol PRN Reason: Hypoglycemia Protocol Stop: 07/14/19 11:20 Heparin Sodium (Porcine) (Heparin Sodium (Porcine)) 5,000 units SQ Q12 [facility] Stop: 07/14/19 20:59 Last Admin: 06/17/19 08:22 Dose: 5,000 units Documented by: Furosemide 40 mg/ Syringe 4 mls @ 4 mls/min IV DAILY [facility] Stop: 07/17/19 08:59 Last Admin: 06/17/19 08:21 Dose: 4 mls/min Documented by: Insulin Aspart (Novolog Flexpen) 0 units SC ACHS [facility] Stop: 07/14/19 12:59 Last Admin: 06/17/19 11:54 Dose: 4 units Documented by: Insulin Glargine (Lantus Solostar Pen) 0 units SC HS [facility]; Protocol Stop: 07/14/19 20:59 Last Admin: 06/16/19 20:43 Dose: 40 units Documented by: Isosorbide [facility]onitrate (Imdur Extended Rel) [facility]: 07/15/19 08:59 Last Admin: 06/17/19 08:22 Dose: 60 mg Documented by: Metoprolol Tartrate (Lopressor) 75 mg PO BID [facility] Stop: 07/14/19 20:59 Last Admin: 06/17/19 08:22 Dose: 75 mg Documented by: Miscellaneous (Carbohydrates For Hypoglycemia) 15 - 30 gm PO UD PRN PRN Reason: Hypoglycemia Protocol Stop: 07/14/19 11:20 Miscellaneous Information (Consult Glycemic Management Pharmacy) 1 ea N/A UD PRN; Protocol PRN Reason: Consult Stop: 07/14/19 12:01 Ondansetron HCl (Zofran) 4 mg IV Q4H PRN PRN Reason: Nausea Stop: 07/14/19 11:20 Pantoprazole Sodium (Protonix) 40 mg PO QAM [facility] Stop: 07/15/19 08:59 Last Admin: 06/17/19 08:22 Dose: 40 mg Documented by: Risperidone (Risperdal) 0.5 mg PO HS [facility] Stop: 07/16/19 20:59 Last Admin: 06/16/19 20:45 Dose: 0.5 mg Documented by: Topiramate (Topamax) 100 mg PO BID [facility] Stop: 07/14/19 20:59 Last Admin: 06/17/19 08:22 Dose: 100 mg Documented by: Tramadol HCl (Ultram) 50 mg PO Q6H PRN PRN Reason: pain Stop: 07/14/19 11:20 Last Admin: 06/16/19 08:46 Dose: 50 mg Documented by:
[2019-06-17 12:17] LABS: Anti Nuclear Antibody Screen NEGATIVE (NEGATIVE)
--- NOTE | 2019-06-17 17:40 | CT Scan Report ---
CT head/brain wo con CLINICAL HISTORY: 74 years-old Male with can't move any extremity/weakness. Acute strokelike symptom s TECHNIQUE: Multiple axial CT images of the head were obtained without contrast. A dose lowering tech nique was utilized adhering to the principles of ALARA. CT DOSE: 1142.05 mGy.cm COMPARISON: Head CT and brain MRI 06/14/2019. FINDINGS: Motion degraded exam No acute intracranial hemorrhage, midline shift, intracranial mass, hydrocephalu s, territorial ischemia or abnormal extra-axial collection. Age-related involutional changes. Mild pa tchy white matter hypodensities suggest chronic microvascular ischemic disease. Cerebral vascular scott cifications are noted. The calvarium is intact. Thinning of the bilateral optic lenses. The paranasal sinuses, mastoid air c ells, and middle ear cavities are clear. IMPRESSION: Motion degraded exam without acute intracranial abnormality identified. ACT 112: Negative or not required by law. The above report was generated using voice recognition software. It may contain grammatical, syntax o r spelling errors. Electronically signed by: Adria Pan M.D. 06/17/2019 5:39 PM
--- NOTE | 2019-06-17 17:52 | CT Scan Report ---
CT cervical spine wo con CLINICAL HISTORY: 74 years-old Male with can't move arms or legs; eval fracture,etc. acute neck inju ry COMPARISON: Head CT of same day, CT cervical spine 05/10/2019 TECHNIQUE: Multiple axial CT images of the cervical spine were obtained without contrast. A dose low ering technique was utilized adhering to the principles of ALARA. FINDINGS: Demineralized appearance of the bones. Convex left curvature of the cervical spine. Severe multilevel facet arthrosis with mostly mild multilevel disc space narrowing, spondylitic spurring and posterior disc osteophyte complex formations, most pronounced at C3-C4. Evaluation of the central canal and ne uroforamina is better evaluated by MRI. Multilevel foraminal narrowing is noted. No definite high-gra de central canal stenosis. No acute cervical spine fracture or subluxation identified. Lung apices are clear. No pneumothorax. There is no prevertebral soft tissue swelling identified. Andrey cified plaque of the carotid bulbs. Soft tissues are unremarkable. Mastoid air cells and middle ear c avities are clear. IMPRESSION: No acute cervical spine fracture or subluxation. ACT 112: Negative or not required by law. The above report was generated using voice recognition software. It may contain grammatical, syntax o r spelling errors. Electronically signed by: Adria Pan M.D. 06/17/2019 5:50 PM
--- NOTE | 2019-06-17 17:53 | XRay Report ---
XR chest 1V portable HISTORY: 74 years-old Male stroke alert; eval for acute process acute strokelike symptoms COMPARISON: Chest radiograph 06/06/2019 TECHNIQUE: Portable AP view of the chest FINDINGS: Cardiac silhouette is enlarged, unchanged. Prior median sternotomy and CABG. Mild bibasilar opacities , left greater than right with mild blunting of the left costophrenic angle. Findings are suggestive of probable atelectasis. No pneumothorax, large pleural effusion or overt pulmonary edema. Mild hypoi nflation. Degenerative changes of the shoulders and spine. IMPRESSION: Cardiomegaly without acute process. ACT 112: Negative or not required by law. The above report was generated using voice recognition software. It may contain grammatical, syntax o r spelling errors. Electronically signed by: Adria Pan M.D. 06/17/2019 5:51 PM
[2019-06-17 18:07] LABS: Hematocrit (blood only) 36.2 % (42-52); Hemoglobin 11.8 g/dL (14.0-18.0); Mean Corpuscular Hemoglobin 32.3 pg (25-34); Mean Corpuscular Hgb Conc 32.6 g/dL (32-36); Mean Corpuscular Volume 99.2 fL (80-100); Mean Platelet Volume 9.3 fL (7.4-10.4); Platelet Count 207 K/uL (130-400); RDW Coefficient of Variation 14.1 % (11.5-14.5); RDW Standard Deviation 50.9 fL (36.4-46.3); Red Blood Count 3.65 M/uL (4.7-6.1); White Blood Count 4.15 K/uL (4.8-10.8)
[2019-06-17 18:16] LABS: INR 1.1 (0.9-1.1); Prothrombin Time 10.8 Seconds (9.0-12.0)
[2019-06-17 18:23] LABS: BUN Creatinine Ratio 16.5 (10-20); Blood Urea Nitrogen 22 mg/dl (7-18); Calcium 8.7 mg/dl (8.5-10.1); Carbon Dioxide 23 mmol/L (21-32); Chloride 107 mmol/L (98-107); Est GFR (African American) 62.2; Est GFR (Non-African American) 53.6; Glucose 109 mg/dl (70-99); Potassium 3.9 mmol/L (3.5-5.1); Sodium 140 mmol/L (136-145)
[2019-06-17 18:34] LABS: Troponin I < 0.015 ng/ml (0-0.045)
--- NOTE | 2019-06-17 19:47 | Hospitalist Progress Note ---
Date of Service June 17, 2019 Assessment & Plan (1) Spell of generalized weakness: this afternoon's spell lasted about 1 hour. he was flaccid in all 4 extremities. no facial droop. speech was clear. STAT head CT w/o ICH or stroke. CT cervical spine without cord lesion. I spoke with telestroke at [place] - acute stroke event highly unlikely. Would need to have a "locked in" syndrome stroke event or bihemispheric cerebral event - both of which are not common. About 60 minutes into the event the symptoms fully resolved. There was nothing to suggest seizure activity. Checked prolactin level - was normal. Other labs and EKG were wnl. Would not characterize this as TIA. 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 To be complete will check CTA head/neck. If negative would not pursue additional work-up. (2) Acute on chronic diastolic (congestive) heart failure: cont IV diuresis. weights are very confusing. during his recent pre-[facility] stay he was down to 88kg. now he is at 98.1kg. he does not look like he has 20 additional pounds of fluid retention. O2 sats are wnl. continue diuresis until BUN and Cr rise. (3) Delusional disorder: appreciate psych consult/recs. spoke with and son- both confirm that he had told the stories of his occupational chemical exposure for many years but this became more prominent in Feb/Mar. he now has sever visual hallucinations with bugs/worms. cont risperdal. in some circumstances vit B12 def can cause psychosis/mental status changes. thus, replace IM while here and change to PO at d/c. awaiting B1 level - has h/o alcoholism (quit 3 years ago) - thiamine 200mg IV BID in meantime. 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 (4) CAD in [place] artery: s/p 4-vessel CABG [facility] [place] 05/2019. cont asa, statin, BB, imdur, lasix. no ischemic symptoms. (5) Diabetes mellitus: control excellent cont current meds (6) GERD (gastroesophageal reflux disease): cont PPI (7) Hyperlipidemia: cont statin (8) Hypertension: controlled cont current meds (9) Fever: had fever at time of admission blood cx's neg attempts at LP were not successful recent Lyme's and anaplasmosis testing were negative cxr w/o pneumonia has no cellulitis on exam etiology?? 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 Subjective multiple visits to pt's bedside today. first - shortly after lunch. pt sitting in chair comfortably. had no complaints. talked incessantly about bugs and worms "crawling out of his skin." he asked me if I could see them on the floor. reported severe pruritis. then, about 5pm, nursing staff called me that patient stated he couldn't move his arms or legs b/l. upon my arrival he was sitting in the chair by the bedside. speech was clear. his eyes were closed. he stated over and over "I just can't move them" (his arms/legs). apparently his installation supervisor had visited him ~430pm and at the conclusion of that visit his son showed up for a visit. apparently Mr Blanchard and his son had not seen each other in 4 years. when the son arrived Mr Blanchard started crying and then told his son "I don't think I'm going to make it - I'm dying." he then told his son he couldn't move his arms/legs. during this 5pm visit I could not get the patient to move any arm or leg. he talked during most of the visit then stopped talking and wouldn't follow any commands. vitals were stable. BSG was normal (>70). patient taken for STAT head CT and cervical spine CT. both negative for acute findings. I spoke with the stroke neurologist at [facility]. Video conferencing was deferred since an exam could not be performed. Shortly after hanging up phone with Mary I went back to the pt's bedside. He was now moving all 4 limbs. He then woke up and started crying saying "it was the Lord that just saved me!" Review of Systems Constitutional: no fever, no chills and no body aches Respiratory: + cough and + sputum production; no dyspnea Cardiovascular: no chest pain, no orthopnea and no paroxysmal nocturnal dyspnea Gastrointestinal: no abdominal pain and no nausea Physical Exam Constitutional: no acute distress and no altered mental status (a/o to person, place, time and recent events ) documented exam was from first visit earlier today ENMT: external ear and nose normal, oropharynx normal Respiratory: normal respiratory effort, lungs clear to auscultation Auscultation: + diminished lung sounds (bases) Cardiovascular: Rate/Rhythm: regular rate and regular rhythm Heart Sounds: normal S1 and normal S2; no murmur Vessels: posterior tibial pulses present and dorsalis pedis pulses present; no JVD Extremities: + edema (trace right; 1-2+ on left) Gastrointestinal (Abdomen): normal bowel sounds, soft, nontender, no hepatosplenomegaly Skin: resolving ecchymoses left thigh; previous vein harvest sites on left leg clean; stasis changes b/l legs (worse Left) Neurologic: exam from first visit -- strength 5/5 x 4 exts; no facial droop; speech clear Psychiatric: Orientation: alert and oriented x 3 Thought Content: + delusions Results & Data Vital Signs (Past 12 Hours) Vital Signs Temp Pulse Pulse Resp BP Pulse Ox 06/17/19 14:58 36.6 C 62 18 106/62 97 06/17/19 12:00 36.9 C 72 20 121/69 95 06/17/19 08:00 36.5 C 66 22 110/62 96 06/17/19 07:48 67 Laboratory Results Laboratory Results - last 24 hr 06/15/19 06/15/19 06/16/19 12:51 12:51 20:17 WBC RBC Hgb Hct MCV MCH MCHC RDW Std Deviation RDW Coeff of Gissel Plt Count MPV Immature Gran % (Auto) Neut % (Auto) Lymph % (Auto) [place] % (Auto) Eos % (Auto) Baso % (Auto) Immature Gran # (Auto) Neut # (Auto) Lymph # (Auto) [place] # (Auto) Eos # (Auto) Baso # (Auto) PT INR Sodium Potassium Chloride Carbon Dioxide Anion Gap BUN Creatinine Est Cr Clr Drug Dosing Est GFR ( Amer) Est GFR (Non-Af Amer) BUN/Creatinine Ratio Glucose POC Glucose 211 H Calcium Phosphorus Magnesium Troponin I Prolactin RAÚL Screen NEGATIVE RPR Nonreactive 06/17/19 06/17/19 06/17/19 07:29 07:29 07:40 WBC 3.43 L RBC 3.33 L Hgb 10.4 L Hct 33.0 L MCV 99.1 MCH 31.2 MCHC 31.5 L RDW Std Deviation 51.7 H RDW Coeff of Gissel 14.2 Plt Count 168 MPV 9.5 Immature Gran % (Auto) 0.9 Neut % (Auto) 65.9 Lymph % (Auto) 16.3 [place] % (Auto) 9.6 Eos % (Auto) 6.7 Baso % (Auto) 0.6 Immature Gran # (Auto) 0.03 H Neut # (Auto) 2.26 Lymph # (Auto) 0.56 L [place] # (Auto) 0.33 Eos # (Auto) 0.23 Baso # (Auto) 0.02 PT INR Sodium 139 Potassium 3.7 Chloride 111 H Carbon Dioxide 22 Anion Gap 6.0 BUN 20 H Creatinine 1.23 Est Cr Clr Drug Dosing 61.8 Est GFR ( Amer) 67.1 Est GFR (Non-Af Amer) 57.9 BUN/Creatinine Ratio 15.9 Glucose 93 POC Glucose 95 Calcium 8.3 L Phosphorus Magnesium 2.3 Troponin I Prolactin RAÚL Screen RPR 06/17/19 06/17/19 06/17/19 11:30 16:28 17:36 WBC RBC Hgb Hct MCV MCH MCHC RDW Std Deviation RDW Coeff of Gissel Plt Count MPV Immature Gran % (Auto) Neut % (Auto) Lymph % (Auto) [place] % (Auto) Eos % (Auto) Baso % (Auto) Immature Gran # (Auto) Neut # (Auto) Lymph # (Auto) [place] # (Auto) Eos # (Auto) Baso # (Auto) PT INR Sodium Potassium Chloride Carbon Dioxide Anion Gap BUN Creatinine Est Cr Clr Drug Dosing Est GFR ( Amer) Est GFR (Non-Af Amer) BUN/Creatinine Ratio Glucose POC Glucose 115 H 98 107 H Calcium Phosphorus Magnesium Troponin I Prolactin RAÚL Screen RPR 06/17/19 06/17/19 06/17/19 18:00 18:01 18:01 WBC 4.15 L RBC 3.65 L Hgb 11.8 L Hct 36.2 L MCV 99.2 MCH 32.3 MCHC 32.6 RDW Std Deviation 50.9 H RDW Coeff of Gissel 14.1 Plt Count 207 MPV 9.3 Immature Gran % (Auto) Neut % (Auto) Lymph % (Auto) [place] % (Auto) Eos % (Auto) Baso % (Auto) Immature Gran # (Auto) Neut # (Auto) Lymph # (Auto) [place] # (Auto) Eos # (Auto) Baso # (Auto) PT 10.8 INR 1.1 Sodium Potassium Chloride Carbon Dioxide Anion Gap BUN Creatinine Est Cr Clr Drug Dosing Est GFR ( Amer) Est GFR (Non-Af Amer) BUN/Creatinine Ratio Glucose POC Glucose Calcium Phosphorus Magnesium Troponin I Prolactin 11.33 RAÚL Screen RPR 06/17/19 18:01 WBC RBC Hgb Hct MCV MCH MCHC RDW Std Deviation RDW Coeff of Gissel Plt Count MPV Immature Gran % (Auto) Neut % (Auto) Lymph % (Auto) [place] % (Auto) Eos % (Auto) Baso % (Auto) Immature Gran # (Auto) Neut # (Auto) Lymph # (Auto) [place] # (Auto) Eos # (Auto) Baso # (Auto) PT INR Sodium 140 Potassium 3.9 Chloride 107 Carbon Dioxide 23 Anion Gap 10.0 BUN 22 H Creatinine 1.31 Est Cr Clr Drug Dosing 58.0 Est GFR ( Amer) 62.2 Est GFR (Non-Af Amer) 53.6 BUN/Creatinine Ratio 16.5 Glucose 109 H POC Glucose Calcium 8.7 Phosphorus 4.0 Magnesium Troponin I < 0.015 Prolactin RAÚL Screen RPR PG Care Time/CCT Total # of Minutes Spent Total Time Spent with Patient: Total time spent is greater than 50% in coordination of care (as documented) at patient's floor/unit and/or counseling patient: Prolonged Care Time Prolonged Care Time: Yes 120 minutes modifier #25 -- first hour, prolonged service. modifier #25 -- each additional hour. (1) Diabetes mellitus Chronic kidney disease stage: stage 3 (moderate) Diabetes mellitus complication detail: with chronic kidney disease Diabetes mellitus complication status: with kidney complications Diabetes mellitus termite control representative insulin use: with long-term use Diabetes mellitus type: type 2 Qualified Code(s): E11.22 - Type 2 diabetes mellitus with diabetic chronic kidney disease; N18.3 - Chronic kidney disease, stage 3 (moderate); Z79.4 - FDC (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 (2) GERD (gastroesophageal reflux disease) Esophagitis presence: esophagitis presence not specified Qualified Code(s): K21.9 - Gastro-esophageal reflux disease without esophagitis (3) Hyperlipidemia Hyperlipidemia type: mixed hyperlipidemia Qualified Code(s): E78.2 - Mixed hyperlipidemia (4) Hypertension Hypertension type: essential hypertension Qualified Code(s): I10 - Essential (primary) hypertension (5) Fever Fever type: due to other condition Qualified Code(s): R50.81 - Fever presenting with conditions classified elsewhere
[2019-06-17] MEDS: INSULIN GLARGINE SOLOSTAR 100 UNITS/ML 3 ML PEN SC SCH (21:21)
[2019-06-17] MEDS: THIAMINE HCL 200 MG in SODIUM CHLORIDE 0.9% 50 ML IV SCH (21:51)
[2019-06-17] MEDS: risperiDONE 1 MG TABLET PO SCH (21:51)
[2019-06-18] MEDS ORDERED: OPTIRAY 320 125ml IV PRN (00:27)
[2019-06-18 07:26] LABS: BUN Creatinine Ratio 18.6 (10-20); Calcium 8.6 mg/dl (8.5-10.1); Est GFR (African American) 63.3; Est GFR (Non-African American) 54.6
--- NOTE | 2019-06-18 07:41 | CT Scan Report ---
CT ANGIOGRAM OF THE BRAIN; CT ANGIOGRAM OF THE NECK CLINICAL HISTORY: Stroke. COMPARISON STUDY: CT angiogram of the head and neck dated 04/21/2019. CT of the brain dated 9. MRI of the brain dated 06/14/2019. TECHNIQUE: Following the IV administration of 117 of Optiray 320, CT angiogram of the head and neck w as performed from the aortic arch to the vertex. Images are reviewed in the axial, sagittal, and aria nal planes. 3-D MIPS images are created and assessed. IV contrast was administered without complicati on. All measurements were calculated based on NASCET criteria. A dose lowering technique was utilize d adhering to the principles of ALARA. CT DOSE: 587.26 mGy.cm FINDINGS: Brain parenchyma: There is mild age-related involutional change. There is no hemorrhage, mass effect, or evidence of acute territorial ischemia by CT criteria. There is no evidence of enhancing mass les ion on the angiogram phase images. The ventricles, sulci, and cisterns are prominent secondary to inv olutional change. [place]-white matter differentiation is preserved. No extra-axial fluid collection is seen. Thoracic aorta: There is mild atherosclerotic calcification of the thoracic aorta. Visualized portion s of the thoracic aorta are normal in caliber. The aortic arch demonstrates standard 3-vessel anatomy . Right carotid arterial system: The right common carotid artery is widely patent, as are the right int ernal and external carotid arteries. Mild plaque is noted in the carotid bulb. Left carotid arterial system: The left common carotid artery is widely patent, as are the left sales management intern al and external carotid arteries. Mild plaque is noted in the carotid bulb. Vertebral arteries: Subclavian arteries: Widely patent bilaterally. Intracranial vasculature: There is origin of the right posterior cerebral artery. Atherosclerot ic calcification is noted in the carotid bulbs. The internal carotid arteries are patent at the skull base, as are the anterior and middle cerebral arteries bilaterally. The vertebrobasilar system and p osterior cerebral arteries are widely patent. The vertebral arteries are codominant. There is no aneu rysm, high-grade stenosis, or focal vessel cut off seen throughout the intracranial circulation. Jugular veins: Widely patent bilaterally. Dural sinuses: Patent. Lung apices: The patient is status post midline sternotomy. A calcified granuloma is noted at the lef t apex. There is a small left pleural effusion. The visualized upper lobe lung parenchyma is otherwis e clear. Soft tissues: The visualized pharyngeal soft tissues are normal in appearance noting angiographic pha se technique. The oropharyngeal airway appears widely patent. The salivary and thyroid glands are nor mal in appearance. No cervical lymphadenopathy is seen. Skeletal structures: The skeletal structures are osteopenic. The calvarium appears intact. The cervic al spine is maintained noting multilevel spondylosis. No lytic or blastic lesion is seen. Orbits: The bony orbits are intact. Orbital contents are normal in appearance noting bilateral ocular lens implants. Sinuses and mastoids: The paranasal sinuses are clear. The mastoid air cells are well pneumatized. IMPRESSION: 1. There is no hemorrhage, mass effect, or evidence of acute territorial ischemia by CT criteria noti ng angiographic phase technique. 2. Unremarkable CT angiogram of the brain. No significant change from 04/21/2019. 3. Unremarkable CT angiogram of the neck. No significant change from 04/21/2019. 4. Small left pleural effusion. ACT 112: Negative or not required by law. Electronically signed by: Jonny Zambrano M.D. 06/18/2019 7:39 AM
[2019-06-18] MEDS: ASPIRIN 81 MG ECTAB PO SCH (08:17)
[2019-06-18] MEDS: ISOSORBIDE MONO EXTENDED REL 60 MG TABCR PO SCH (08:17)
[2019-06-18] MEDS: CITALOPRAM 20 MG TAB PO SCH (08:17)
[2019-06-18] MEDS: METOPROLOL TARTRATE 25 MG TAB PO SCH ×2 (08:17→20:02)
[2019-06-18] MEDS: PANTOprazole 40 MG TAB PO SCH (08:17)
[2019-06-18] MEDS: ATORVASTATIN 40 MG TAB PO SCH (08:17)
[2019-06-18] MEDS: TOPIRAMATE 100 MG TAB PO SCH ×2 (08:17→20:01)
[2019-06-18] MEDS: FUROSEMIDE 40 MG in SYRINGE 0 ML IV SCH (08:18)
[2019-06-18] MEDS: HEPARIN SOD 5,000 UNIT/0.5 ML VIAL SQ SCH ×2 (08:18→20:02)
[2019-06-18] MEDS: FOLIC ACID 1 MG TAB PO SCH (08:18)
[2019-06-18] MEDS: INSULIN ASPART 100 UNITS/ML 3 ML PEN SC SCH ×4 (08:20→20:04)
[2019-06-18] MEDS: CYANOCOBALAMIN 1000 MCG/ML VIAL IM SCH (08:35)
[2019-06-18] MEDS: THIAMINE HCL 200 MG in SODIUM CHLORIDE 0.9% 50 ML IV SCH ×2 (08:35→20:14)
--- NOTE | 2019-06-18 14:47 | Hospitalist Progress Note ---
Date of Service June 18, 2019 Assessment & Plan (1) Spell of generalized weakness: The afternoon's spell lasted about 1 hour. he was flaccid in all 4 extremities. no facial droop. speech was clear. STAT head CT w/o ICH or stroke. CT cervical spine without cord lesion. - CTA normal; unchanged from 04/2019. - No further episodes. (2) Acute on chronic diastolic (congestive) heart failure: cont IV diuresis. weights are very confusing. during his recent pre-[place] stay he was down to 88kg. now he is at 98.1kg. he does not look like he has 20 additional pounds of fluid retention. O2 sats are wnl. continue diuresis until BUN and Cr rise. - Stable today. (3) Delusional disorder: appreciate psych consult/recs. spoke with and son- both confirm that he had told the stories of his occupa tional chemical exposure for many years but this became more prominent in Feb/Mar. he now has sever visual hallucinations with bugs/worms. cont risperdal. in some circumstances vit B12 def can cause psychosis/mental status changes. thus, replace IM while here and change to PO at d/c. awaiting B1 level - has h/o alcoholism (quit 3 years ago) - thiamine 200mg IV BID in meantime. 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 = No change today. (4) CAD in [place] artery: s/p 4-vessel CABG [facility] [place] 05/2019. cont asa, statin, BB, imdur, lasix. no ischemic symptoms. (5) Diabetes mellitus: control excellent cont current meds (6) GERD (gastroesophageal reflux disease): cont PPI (7) Hyperlipidemia: cont statin (8) Hypertension: controlled cont current meds (9) Fever: had fever at time of admission blood cx's neg attempts at LP were not successful recent Lyme's and anaplasmosis testing were negative cxr w/o pneumonia has no cellulitis on exam etiology?? 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 The patient perseverates on his toxic exposures, and the worms coming out of his skin. He asks me to wear a glove on my hand before shaking his hand due to the worms. Review of Systems Review of Systems: Unobtainable due to mental health condition Physical Exam Constitutional: WD/WN, vitals as above + acute distress and cooperative Eyes: EOM intact bilaterally; no conjunctival abnormality ENMT: external ear and nose normal, oropharynx normal Neck: trachea midline, no thyromegaly + abnormal visual inspection (Wound on posterior neck) Respiratory: normal respiratory effort, lungs clear to auscultation no respiratory distress Cardiovascular: Rate/Rhythm: regular rhythm and + tachycardic Heart Sounds: normal S1 and normal S2 Extremities: + edema (1+ up to knee) Gastrointestinal (Abdomen): Inspection/Auscultation: abdomen normal to inspection; abdomen not distended Musculoskeletal: no cyanosis or clubbing, extremities motor strength 5/5 Skin: no rashes, warm and dry Neurologic: moves all extremities and awake Psychiatric: Orientation: alert, oriented to person and cooperative Speech: + pressured speech Affect: + anxious affect and + irritable affect Mood: + anxious mood Thought Process: + tangential thought process and + perseveration Results & Data Vital Signs (Past 12 Hours) Vital Signs Temp Pulse Resp BP Pulse Ox 06/18/19 11:31 36.4 C L 74 18 111/66 98 06/18/19 07:39 36.7 C 68 18 113/68 97 06/18/19 03:59 36.6 C 65 106/67 97 PG Care Time/CCT Total # of Minutes Spent Total Time Spent with Patient: Total time spent is greater than 50% in coordination of care (as documented) at patient's floor/unit and/or counseling patient: (1) Diabetes mellitus Chronic kidney disease stage: stage 3 (moderate) Diabetes mellitus compl ication detail: with chronic kidney disease Diabetes mellitus complication status: with kidney complications Diabetes mellitus chcf insulin use: with chcf use Diabetes mellitus type: type 2 Qualified Code(s): E11.22 - Type 2 diabetes mellitus with diabetic chronic kidney disease; N18.3 - Chronic kidney disease, stage 3 (moderate); Z79.4 - long term care pharmacist (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 (2) GERD (gastroesophageal reflux disease) Esophagitis presence: esophagitis presence not specified Qualified Code(s): K21.9 - Gastro-esophageal reflux disease without esophagitis (3) Hyperlipidemia Hyperlipidemia type: mixed hyperlipidemia Qualified Code(s): E78.2 - Mixed hyperlipidemia (4) Hypertension Hypertension type: essential hypertension Qualified Code(s): I10 - Essential (primary) hypertension (5) Fever Fever type: due to other condition Qualified Code(s): R50.81 - Fever presenting with conditions classified elsewhere
[2019-06-18] MEDS: risperiDONE 1 MG TABLET PO SCH (20:01)
[2019-06-18] MEDS: INSULIN GLARGINE SOLOSTAR 100 UNITS/ML 3 ML PEN SC SCH (20:02)
--- NOTE | 2019-06-19 07:56 | Pharmacy Report ---
Pharmacy Glycemic Short Note 2 - Date of Service June 19, 2019 - Glycemic Short BSG Results (Last 24 hours): 06/18/19 06/18/19 06/18/19 11:44 16:45 20:00 POC Glucose 164 H 121 H 162 H 06/19/19 07:40 POC Glucose 111 H OUTPATIENT ANTIDIABETIC REGIMEN: * Lantus 40-65 units SQ qHS - reports having low blood sugars on these doses at home * Novolog 10-15 units with meals * A1c = 6.5% 05/15/19 ASSESSMENT: 06/19/18 * Patient is currently receiving an average of 57 units of insulin per day * 35 units of basal insulin * 22 units of prandial/correctional insulin * BSGs ranging 111- 164 over the past 24hrs * No upcoming anticipating changes, no changes needed in inpatient regimen at this time 06/17/19 * BSGs over the previous 24hrs have been reasonable: [phone]/dL. He requires 45-65u/D units while admitted, basal heavy. Vanco/Zosyn d/c'd yesterday after discussion w/ attending. Diet continues. Risperdal is a new start, although not as disruptive to the endocrine system as clozapine/ olanzapine, it still can confer insulin resistance. PLAN FOR INPATIENT GLYCEMIC CONTROL: * Basal insulin - reduced dose as compared to outpt Rx * Lantus 35-40 units SQ qHS * 35 units for BSG < 180, 40 units for BSG of 180 or more * Bolus insulin * NovoLog per scale ACHS or Q6hrs while NPO * Goal Range: Low 110 mg/dL - High 140 mg/dL * Correction Factor: 30 mg/dL/unit * Nutritional / Prandial insulin per carb ratio of 1 unit per 8 grams CHO consumed DISCHARGE RECOMMENDATIONS: * A1c 6.5%, but patient reports hypoglycemia on home dose of Lantus * Recommend changing Lantus to 35 units HS on discharge, continue Novolog as directed
[2019-06-19 07:59] LABS: Hematocrit (blood only) 35.3 % (42-52); Hemoglobin 11.3 g/dL (14.0-18.0); Mean Corpuscular Hemoglobin 31.8 pg (25-34); Mean Corpuscular Volume 99.4 fL (80-100); Mean Platelet Volume 9.8 fL (7.4-10.4); Platelet Count 167 K/uL (130-400); RDW Coefficient of Variation 14.2 % (11.5-14.5); RDW Standard Deviation 50.8 fL (36.4-46.3); Red Blood Count 3.55 M/uL (4.7-6.1); White Blood Count 3.36 K/uL (4.8-10.8)
[2019-06-19 08:28] LABS: BUN Creatinine Ratio 17.8 (10-20); Calcium 8.5 mg/dl (8.5-10.1); Creatinine Clr Calc Pharmacy 55.2 ml/min; Est GFR (African American) 61.6; Est GFR (Non-African American) 53.1; Magnesium 2.3 mg/dl (1.8-2.4); Potassium 3.8 mmol/L (3.5-5.1)
[2019-06-19 08:37] LABS: Phosphorus 3.4 mg/dl (2.5-4.9)
[2019-06-19] MEDS: ISOSORBIDE MONO EXTENDED REL 60 MG TABCR PO SCH (09:06)
[2019-06-19] MEDS: FUROSEMIDE 40 MG in SYRINGE 0 ML IV SCH (09:06)
[2019-06-19] MEDS: ATORVASTATIN 40 MG TAB PO SCH (09:06)
[2019-06-19] MEDS: METOPROLOL TARTRATE 25 MG TAB PO SCH ×2 (09:06→21:16)
[2019-06-19] MEDS: PANTOprazole 40 MG TAB PO SCH (09:07)
[2019-06-19] MEDS: CITALOPRAM 20 MG TAB PO SCH (09:07)
[2019-06-19] MEDS: FOLIC ACID 1 MG TAB PO SCH (09:07)
[2019-06-19] MEDS: HEPARIN SOD 5,000 UNIT/0.5 ML VIAL SQ SCH ×2 (09:07→21:10)
[2019-06-19] MEDS: TOPIRAMATE 100 MG TAB PO SCH ×2 (09:07→21:50)
[2019-06-19] MEDS: ASPIRIN 81 MG ECTAB PO SCH (09:07)
[2019-06-19] MEDS: CYANOCOBALAMIN 1000 MCG/ML VIAL IM SCH (09:08)
[2019-06-19] MEDS: INSULIN ASPART 100 UNITS/ML 3 ML PEN SC SCH ×4 (09:09→21:09)
[2019-06-19] MEDS: THIAMINE HCL 200 MG in SODIUM CHLORIDE 0.9% 50 ML IV SCH ×2 (09:19→21:09)
[2019-06-19] MEDS: INSULIN GLARGINE SOLOSTAR 100 UNITS/ML 3 ML PEN SC SCH (21:10)
[2019-06-19] MEDS: LIDOCAINE 5% 1 PATCH TD SCH (21:14)
[2019-06-19] MEDS: ACETAMINOPHEN 500 MG TAB PO SCH (21:15)
[2019-06-19] MEDS: risperiDONE 1 MG TABLET PO SCH (21:16)
--- NOTE | 2019-06-19 21:44 | Hospitalist Progress Note ---
Date of Service June 19, 2019 Assessment & Plan (1) Chest pain: atypical. constant in nature. repeat EKG today w/o ischemic changes. muscle? due to sternal incision? try lidoderm patches with k-pad heat. check sed rate / crp in am -- but doubt pericarditis. recent echo w/o pericardial effusion. will check troponin with am labs. if this persists -- consider CTA chest as he is at risk of VTE. (2) Spell of generalized weakness: flaccid weakness of all 4 limbs several days ago. lasted 1 hour then resolved on own. CTA head/neck and CT head all negative. prolactin normal (doubt seizure). doubt syncope (was speaking during the event). this event happened in midst of stressful conversations with and his son. conversion reaction suspected. no events since. (3) Acute on chronic diastolic (congestive) heart failure: cont IV diuresis. BMP wnl today. continue diuresis until BUN and Cr rise. (4) Delusional disorder: appreciate psych consult/recs. ongoing issue. spoke with and son- both confirm that he had told the stories of his occupational chemical exposure for many years but this became more prominent in Sep/Mar. he now has sever visual hallucinations with bugs/worms. cont risperdal but will add AM dose of 0.5mg tomorrow AM. in some circumstances vit B12 def can cause psychosis/mental status changes. thus, replace IM while here and change to PO at d/c. awaiting B1 level - has h/o alcoholism (quit 3 years ago) - thiamine 200mg IV BID in meantime. 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 Repeat head CT 2 days ago wnl. (5) CAD in [place] artery: [place] 4[place] [facility] [place] cont asa, statin, BB, imdur, lasix. see "chest pain" above. (6) Diabetes mellitus: control excellent cont current meds (7) GERD (gastroesophageal reflux disease): cont PPI (8) Hyperlipidemia: cont statin (9) Hypertension: controlled cont current meds (10) Fever: had fever at time of admission blood cx's neg attempts at LP were not successful recent Lyme's and anaplasmosis testing were negative cxr w/o pneumonia has no cellulitis on exam resolved w/o intervention cont to monitor for recurrence (11) B12 deficiency: replace parenterally while hospitalized then revert to PO at d/c also w/ folate def - replace 1mg po daily x 30 days (12) History of alcoholism: heavy - case beer each day up until 3 years ago replace B1 while awaiting level 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 pruritis (chronic complaint). skin lesion on right neck "where the worms came out." worried his "sternal incision is gonna get infected with worms." also complains of "constant" chest discomfort on left. not worsened by laying down. not worse w/ activity. ?pleuritic. tele stable overnight; NSR. Review of Systems Constitutional: no fever and no chills Respiratory: + cough; no dyspnea and no dyspnea on exertion Cardiovascular: as per Subjective / HPI and + edema; no orthopnea and no paroxysmal nocturnal dyspnea Gastrointestinal: no abdominal pain, no nausea, no vomiting, no constipation and no diarrhea/loose stools Physical Exam Constitutional: no acute distress and no altered mental status (a/o to person, place, time and recent events ) ENMT: external ear and nose normal, oropharynx normal Respiratory: normal respiratory effort, lungs clear to auscultation Auscultation: + diminished lung sounds (bases) Cardiovascular: Rate/Rhythm: regular rate and regular rhythm Heart Sounds: normal S1 and normal S2; no murmur Vessels: posterior tibial pulses present and dorsalis pedis pulses present; no JVD Extremities: + edema (trace right; 1+ on left) Gastrointestinal (Abdomen): normal bowel sounds, soft, nontender, no hepatosplenomegaly Skin: ulcerated skin lesion right neck - acute/chronic Psychiatric: Orientation: alert and oriented x 3 Thought Content: + delusions Results & Data Vital Signs (Past 12 Hours) Vital Signs Temp Pulse Pulse Resp BP Pulse Ox 06/19/19 20:00 36.8 C 79 20 124/74 98 06/19/19 15:30 74 06/19/19 15:04 37.0 C 70 20 119/74 97 06/19/19 13:14 65 06/19/19 12:00 36.8 C 74 18 95/59 L 93 Laboratory Results Laboratory Results - last 24 hr 06/19/19 06/19/19 06/19/19 07:40 07:41 07:41 WBC 3.36 L RBC 3.55 L Hgb 11.3 L Hct 35.3 L MCV 99.4 MCH 31.8 MCHC 32.0 RDW Std Deviation 50.8 H RDW Coeff of Gissel 14.2 Plt Count 167 MPV 9.8 Sodium 141 Potassium 3.8 Chloride 112 H Carbon Dioxide 22 Anion Gap 7.0 BUN 24 H Creatinine 1.32 Est Cr Clr Drug Dosing 55.2 Est GFR ( Amer) 61.6 Est GFR (Non-Af Amer) 53.1 BUN/Creatinine Ratio 17.8 Glucose 107 H POC Glucose 111 H Calcium 8.5 Phosphorus 3.4 Magnesium 2.3 06/19/19 06/19/19 06/19/19 11:21 16:19 20:24 WBC RBC Hgb Hct MCV MCH MCHC RDW Std Deviation RDW Coeff of Gissel Plt Count MPV Sodium Potassium Chloride Carbon Dioxide Anion Gap BUN Creatinine Est Cr Clr Drug Dosing Est GFR ( Amer) Est GFR (Non-Af Amer) BUN/Creatinine Ratio Glucose POC Glucose 186 H 131 H 139 H Calcium Phosphorus Magnesium PG Care Time/CCT Total # of Minutes Spent Total Time Spent with Patient: Total time spent is greater than 50% in coordination of care (as documented) at patient's floor/unit and/or counseling patient: (1) Fever Fever type: due to other condition Qualified Code(s): R50.81 - Fever presenting with conditions classified elsewhere (2) Diabetes mellitus Chronic kidney disease stage: stage 3 (moderate) Diabetes mellitus complicat ion detail: with chronic kidney disease Diabetes mellitus complication status: with kidney complications Diabetes mellitus exterminator helper insulin use: with [facility] use Diabetes mellitus type: type 2 Qualified Code(s): E11.22 - Type 2 diabetes mellitus with diabetic chronic kidney disease; N18.3 - Chronic kidney disease, stage 3 (moderate); Z79.4 - exterminator helper (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 (3) Hyperlipidemia Hyperlipidemia type: mixed hyperlipidemia Qualified Code(s): E78.2 - Mixed hyperlipidemia (4) GERD (gastroesophageal reflux disease) Esophagitis presence: esophagitis presence not specified Qualified Code(s): K21.9 - Gastro-esophageal reflux disease without esophagitis (5) Hypertension Hypertension type: essential hypertension Qualified Code(s): I10 - Essential (primary) hypertension (6) Chest pain Chest pain type: unspecified Qualified Code(s): R07.9 - Chest pain, unspecified
[2019-06-20 07:17] LABS: BUN Creatinine Ratio 19.8 (10-20); Calcium 8.5 mg/dl (8.5-10.1); Creatinine Clr Calc Pharmacy 52.3 ml/min; Est GFR (African American) 58.9; Est GFR (Non-African American) 50.8; Potassium 3.8 mmol/L (3.5-5.1)
[2019-06-20 07:18] LABS: C Reactive Protein 0.74 mg/dl (0-0.29)
[2019-06-20] MEDS: ATORVASTATIN 40 MG TAB PO SCH (07:55)
[2019-06-20] MEDS: ASPIRIN 81 MG ECTAB PO SCH (07:55)
[2019-06-20] MEDS: FUROSEMIDE 40 MG in SYRINGE 0 ML IV SCH (07:55)
[2019-06-20] MEDS: TOPIRAMATE 100 MG TAB PO SCH ×2 (07:55→20:48)
[2019-06-20] MEDS: FOLIC ACID 1 MG TAB PO SCH (07:55)
[2019-06-20] MEDS: PANTOprazole 40 MG TAB PO SCH (07:55)
[2019-06-20] MEDS: ISOSORBIDE MONO EXTENDED REL 60 MG TABCR PO SCH (07:56)
[2019-06-20] MEDS: HEPARIN SOD 5,000 UNIT/0.5 ML VIAL SQ SCH ×2 (07:56→20:43)
[2019-06-20] MEDS: METOPROLOL TARTRATE 25 MG TAB PO SCH ×2 (07:56→20:47)
[2019-06-20] MEDS: CITALOPRAM 20 MG TAB PO SCH (07:56)
[2019-06-20] MEDS: CYANOCOBALAMIN 1000 MCG/ML VIAL IM SCH (07:57)
[2019-06-20] MEDS: ACETAMINOPHEN 500 MG TAB PO SCH ×3 (08:02→20:49)
[2019-06-20] MEDS: INSULIN ASPART 100 UNITS/ML 3 ML PEN SC SCH ×4 (08:05→20:41)
--- NOTE | 2019-06-20 08:14 | Electrocardiogram Report ---
Test Reason : Blood Pressure : / mmHG Vent. Rate : 066 BPM Atrial Rate : 066 BPM P-R Int : 172 ms QRS Dur : 086 ms QT Int : 406 ms P-R-T Axes : 048 -35 016 degrees QTc Int : 425 ms Normal sinus rhythm Left axis deviation Inferior infarct (cited on or before 19-JAN-2016) Abnormal ECG When compared with ECG of 17-JUN-2019 17:41, ST no longer elevated in Inferior leads Confirmed by Wai Gill ([id number]) on 06/19/2019 5:41:58 PM Referred By: REFERRED SELF Confirmed By:Jaydon Gill
[2019-06-20] MEDS: THIAMINE HCL 200 MG in SODIUM CHLORIDE 0.9% 50 ML IV SCH (09:07)
[2019-06-20] MEDS: risperiDONE ODT 0.5 MG SOLTAB PO SCH (09:07)
[2019-06-20] MEDS: INSULIN GLARGINE SOLOSTAR 100 UNITS/ML 3 ML PEN SC SCH (20:42)
[2019-06-20] MEDS: FEXOFENADINE 60 MG TAB PO SCH (20:45)
[2019-06-20] MEDS: THIAMINE HCL 100 MG TAB PO SCH (20:45)
[2019-06-20] MEDS: TRIAMCINOLONE ACET 0.1% OINT 15 GM TUBE EXT SCH (20:46)
[2019-06-20] MEDS: LIDOCAINE 5% 1 PATCH TD SCH (20:46)
[2019-06-20] MEDS: risperiDONE 1 MG TABLET PO SCH (20:49)
--- NOTE | 2019-06-20 22:41 | Hospitalist Progress Note ---
Date of Service June 20, 2019 Assessment & Plan (1) Chest pain: has c/o chest discomfort - usually it is constant - multiple times this admission. numerous troponins and EKGS checked - wnl. troponin 0 today. echo this admission wnl. suspect musculoskeletal - perhaps from sternal scar?? treat symptoms. (2) Delusional disorder: appreciate psych consult/recs. ongoing issue. spoke with and son- both confirm that he had told the stories of his occupational chemical exposure for many years but this became more prominent in Feb/Mar. he now has sever visual hallucinations with bugs/worms. cont risperdal -- 1mg HS; adding 0.5mg qam today; titrate as needed. in some circumstances vit B12 def can cause psychosis/mental status changes. thus, replace IM while here and change to PO after tomorrow's dose (tomorrow is 5th dose of parenteral B12). awaiting B1 level - has h/o alcoholism (quit 3 years ago) - thiamine 200mg BID in meantime. change to PO today. 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 Repeat head CT 3 days ago wnl. (3) Spell of generalized weakness: flaccid weakness of all 4 limbs several days ago. lasted 1 hour then resolved on own. CTA head/neck and CT head all negative. CT c-spine negative. prolactin normal (doubt seizure). doubt syncope (was speaking during the event). this event happened in midst of stressful conversations with and his son. conversion reaction suspected. no events since. family states he had similar episode at home just prior to admission. was crying during the spell much like here. (4) Acute on chronic diastolic (congestive) heart failure: cont IV diuresis. BMP wnl today. appears to be near euvolemia. would stop IV lasix after tomorrow AM's dose. (5) CAD in [place] artery: s/p 4-vessel CABG [facility] [place]. cont asa, statin, BB, imdur, lasix. see "chest pain" above. (6) Diabetes mellitus: control excellent with current meds (7) GERD (gastroesophageal reflux disease): cont PPI (8) Hyperlipidemia: cont statin (9) Hypertension: controlled no change in meds (10) Fever: had fever at time of admission blood cx's neg attempts at LP were not successful even under Fluro guidance recent Lyme's and anaplasmosis testing were negative cxr w/o pneumonia has no cellulitis on exam resolved w/o intervention no fevers since (11) B12 deficiency: replace parenterally 1 more day then change to PO also w/ folate def - replace 1mg po daily x 30 days (12) History of alcoholism: heavy - case beer each day up until 3 years ago replace B1 while awaiting level 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 we discussed current issues and that the main problem now is the visual hallucinations/delusions. went over plausible causes. family does want him home but they are concerned about angry outbursts, etc. we discussed options including assisted living level of care post-d/c. during bedside rounds pt's only complaint is that of ongoing pruritic rash and "worms come out of my skin." he continues to "pick them off" and throw them in the garbage. tele stable overnight. Review of Systems Constitutional: no fever, no chills and no anorexia Respiratory: + cough; no dyspnea and no dyspnea on exertion Cardiovascular: no orthopnea, no paroxysmal nocturnal dyspnea and no edema Gastrointestinal: no abdominal pain, no nausea, no vomiting, no constipation and no diarrhea/loose stools Physical Exam Constitutional: well developed and well nourished; no acute distress and no altered mental status ENMT: external ear and nose normal, oropharynx normal Respiratory: normal respiratory effort, lungs clear to auscultation Cardiovascular: Rate/Rhythm: regular rate and regular rhythm Heart Sounds: normal S1, normal S2 and + murmur (1/6 LLSB) Vessels: posterior tibial pulses present and dorsalis pedis pulses present; no JVD Extremities: + edema (none right; < 1+ on left) Gastrointestinal (Abdomen): normal bowel sounds, soft, nontender, no hepatosplenomegaly Skin: scattered areas of erythematous rash in various locations; occasional ulceration (one behind right ear, etc) Psychiatric: Orientation: alert and oriented x 3 Thought Content: + delusions Results & Data Vital Signs (Past 12 Hours) Vital Signs Temp Pulse Pulse Resp BP Pulse Ox 06/20/19 19:00 36.6 C 77 18 111/70 98 06/20/19 16:00 73 06/20/19 15:59 36.9 C 80 18 124/76 96 06/20/19 12:00 36.3 C L 66 18 110/68 98 Laboratory Results Laboratory Results - last 24 hr 06/20/19 06/20/19 06/20/19 06:25 06:25 06:25 ESR 39 H Sodium 140 Potassium 3.8 Chloride 112 H Carbon Dioxide 22 Anion Gap 6.0 BUN 27 H Creatinine 1.37 Est Cr Clr Drug Dosing 52.3 Est GFR ( Amer) 58.9 Est GFR (Non-Af Amer) 50.8 BUN/Creatinine Ratio 19.8 Glucose 117 H POC Glucose Calcium 8.5 Troponin I < 0.015 C-Reactive Protein 0.74 H 06/20/19 06/20/19 06/20/19 07:14 11:19 16:09 ESR Sodium Potassium Chloride Carbon Dioxide Anion Gap BUN Creatinine Est Cr Clr Drug Dosing Est GFR ( Amer) Est GFR (Non-Af Amer) BUN/Creatinine Ratio Glucose POC Glucose 114 H 107 H 117 H Calcium Troponin I C-Reactive Protein 06/20/19 20:35 ESR Sodium Potassium Chloride Carbon Dioxide Anion Gap BUN Creatinine Est Cr Clr Drug Dosing Est GFR ( Amer) Est GFR (Non-Af Amer) BUN/Creatinine Ratio Glucose POC Glucose 153 H Calcium Troponin I C-Reactive Protein PG Care Time/CCT Total # of Minutes Spent Total Time Spent with Patient: Total time spent is greater than 50% in coordination of care (as documented) at patient's floor/unit and/or counseling patient: (1) Chest pain Chest pain type: unspecified Qualified Code(s): R07.9 - Chest pain, unspecified (2) Diabetes mellitus Chronic kidney disease stage: stage 3 (moderate) Diabetes mellitus complication detail: with chronic kidney disease Diabetes mellitus complication status: with kidney complications Diabetes mellitus fdc 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 Diabetes mellitus type: type 2 Qualified Code(s): E11.22 - Type 2 diabetes mellitus with diabetic chronic kidney disease; N18.3 - Chronic kidney disease, stage 3 (moderate); Z79.4 - correction (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 (3) GERD (gastroesophageal reflux disease) Esophagitis presence: esophagitis presence not specified Qualified Code(s): K21.9 - Gastro-esophageal reflux disease without esophagitis (4) Hyperlipidemia Hyperlipidemia type: mixed hyperlipidemia Qualified Code(s): E78.2 - Mixed hyperlipidemia (5) Hypertension Hypertension type: essential hypertension Qualified Code(s): I10 - Essential (primary) hypertension (6) Fever Fever type: due to other condition Qualified Code(s): R50.81 - Fever presenting with conditions classified elsewhere
[2019-06-21 07:08] LABS: BUN Creatinine Ratio 22.4 (10-20); Calcium 8.8 mg/dl (8.5-10.1); Creatinine Clr Calc Pharmacy 56.5 ml/min; Est GFR (African American) 64.5; Est GFR (Non-African American) 55.7; Potassium 3.9 mmol/L (3.5-5.1)
--- NOTE | 2019-06-21 07:20 | Electrocardiogram Report ---
Test Reason : Blood Pressure : / mmHG Vent. Rate : 075 BPM Atrial Rate : 075 BPM P-R Int : 156 ms QRS Dur : 088 ms QT Int : 412 ms P-R-T Axes : 045 -40 024 degrees QTc Int : 460 ms Normal sinus rhythm Left axis deviation Inferior infarct (cited on or before 19-JAN-2016) Poor R wave progression, consider anterior OK vs. lead placement vs. LVH Abnormal ECG Confirmed by Wai Gill ([id number]) on 06/21/2019 7:20:03 AM Referred By: REFERRED SELF Confirmed By:Jaydon Gill
[2019-06-21] MEDS: PANTOprazole 40 MG TAB PO SCH (08:47)
[2019-06-21] MEDS: THIAMINE HCL 100 MG TAB PO SCH ×2 (08:47→20:16)
[2019-06-21] MEDS: ACETAMINOPHEN 500 MG TAB PO SCH ×3 (08:47→20:19)
[2019-06-21] MEDS: risperiDONE ODT 0.5 MG SOLTAB PO SCH (08:47)
[2019-06-21] MEDS: ASPIRIN 81 MG ECTAB PO SCH (08:48)
[2019-06-21] MEDS: METOPROLOL TARTRATE 25 MG TAB PO SCH ×2 (08:48→20:15)
[2019-06-21] MEDS: ATORVASTATIN 40 MG TAB PO SCH (08:48)
[2019-06-21] MEDS: ISOSORBIDE MONO EXTENDED REL 60 MG TABCR PO SCH (08:48)
[2019-06-21] MEDS: FOLIC ACID 1 MG TAB PO SCH (08:48)
[2019-06-21] MEDS: CITALOPRAM 20 MG TAB PO SCH (08:48)
[2019-06-21] MEDS: TRIAMCINOLONE ACET 0.1% OINT 15 GM TUBE EXT SCH ×3 (08:48→20:21)
[2019-06-21] MEDS: FEXOFENADINE 60 MG TAB PO SCH ×2 (08:48→20:17)
[2019-06-21] MEDS: HEPARIN SOD 5,000 UNIT/0.5 ML VIAL SQ SCH ×2 (08:49→20:20)
[2019-06-21] MEDS: INSULIN ASPART 100 UNITS/ML 3 ML PEN SC SCH ×4 (08:49→20:23)
[2019-06-21] MEDS: TOPIRAMATE 100 MG TAB PO SCH ×2 (08:50→20:17)
[2019-06-21] MEDS: CYANOCOBALAMIN 1000 MCG/ML VIAL IM SCH (08:51)
[2019-06-21] MEDS: FUROSEMIDE 40 MG in SYRINGE 0 ML IV SCH (08:57)
--- NOTE | 2019-06-21 12:04 | Pharmacy Report ---
Pharmacy Glycemic Short Note 2 - Date of Service June 21, 2019 - Glycemic Short BSG Results (Last 24 hours): 06/20/19 06/20/19 06/21/19 16:09 20:35 06:15 Glucose 105 H POC Glucose 117 H 153 H 06/21/19 06/21/19 07:01 11:39 Glucose POC Glucose 98 141 H OUTPATIENT ANTIDIABETIC REGIMEN: * Lantus 40-65 units SQ qHS - reports having low blood sugars on these doses at home * Novolog 10-15 units with meals * A1c = 6.5% 05/15/19 ASSESSMENT: 06/19/18 * Patient is currently receiving an average of 55 units of insulin per day * 35 units of basal insulin * 20 units of prandial/correctional insulin * BSGs ranging 98- 153 over the past 24hrs * Anticipating insulin regimen will need decreased for the next 24hrs d/t : * AM Fasting BSG = 98 mg/dl, this is slightly below goal for inpatient targe ts, will decrease basal insulin slightly. * Total daily dose = basal heavy, need to evenly re-distribute regimen 50%:50% basal:prandial to prevent hypo/hyperglycemia * Post-prandial BSGs are in range, no changes needed to CF/CR PLAN FOR INPATIENT GLYCEMIC CONTROL: * Basal insulin - reduced dose as compared to outpt Rx. Reduce further for this evening * Lantus 30-35 units SQ qHS * BSG below 140 mg/dl --> give 30 units * BSG 140 mg/dl or above --> give 35 units * Bolus insulin: no changes * NovoLog per scale ACHS or Q6hrs while NPO * Goal Range: Low 110 mg/dL - High 140 mg/dL * Correction Factor: 30 mg/dL/unit * Nutritional / Prandial insulin per carb ratio of 1 unit per 8 grams CHO consumed DISCHARGE RECOMMENDATIONS: * A1c 6.5%, A1c appears to be excellent, but patient reports hypoglycemia on home dose of Lantus * Recommend changing Lantus to 30-35 units HS on discharge, continue Novolog as directed
--- NOTE | 2019-06-21 12:11 | Psychiatric Progress Note ---
Date of Service June 21, 2019 Impression / Recommendations Impression as per initial consult but would add that in addition to his ongoing parasitosis/chemical exposure delusion he appears to be manic with hyperverbal, flirted with me, affect inappropriate to situation, ongoing delusions, some response to Risperdal. Would benefit from inpatient hospitalization for likely bipolar disorder as contributing factor, certainly can't exclude personality change due to frontotemporal dementia. Likely self-medicated for years. Patient is agreeable to sign a 201 and I explained locked unit/procedure. Liaison to notify family to ensure supportive when medically cleared. Risperdal increased yesterday per Kailey. Risk Factors Assessment Male: Yes : Yes Health Problems: Yes Substance Use Disorders: No Previous Attempt: No Previous Psychiatric Hospitalization: No Hopelessness: No Smoker: No Protective Factors Assessment : Yes Responsible for Young Children: No Interval History Chief Complaint "You're an jocelyn, the halo is above and you gotta help me with these worms". Review of Systems Notes unable to obtain due to short attention span and expansiveness Subjective Subjective Patient was seen & assessed and interval progress reviewed with nursing and Dr. Bonner. Patient has a history of ETOH use in past and at least 1 inpatient hospitalization for for a nonspecific ?manic or psychotic episode following a medical hospitalization (though can't exclude withdraw). He is tolerating Risperdal well but family reportedly concerned about managing him at home given ongoing preoccupation with worms. Physical Exam Psychiatric Orientation: alert and oriented to place overly bright, expansive Eye Contact: good eye contact Motor Behavior: no abnormal motor movements Speech: + pressured speech Affect: + elated affect Mood: + anxious mood Thought Process: + circumstantial thought process Thought Content: + delusions (parasitosis) Suicidal Thoughts: denies suicidal thoughts Homicidal Thoughts: denies homicidal thoughts Hallucinations: + tactile hallucinations; no auditory hallucinations and no visual hallucinations showed me 2 small pieces of his dressing that he were convinced were bugs that "worked their way out" Cognition: language grossly intact; + remote memory not intact Insight: + poor insight Judgement: + poor judgement Vital Signs (Past 24 Hours) Last Vital Signs Temp 36.5 C 06/21/19 06:56 Pulse 69 06/21/19 06:56 Resp 20 06/21/19 06:56 BP 125/81 06/21/19 06:56 Pulse Ox 98 06/21/19 06:56 Results & Data Laboratory Results Laboratory Results - last 24 hr 06/15/19 06/20/19 06/20/19 07:08 16:09 20:35 Sodium Potassium Chloride Carbon Dioxide Anion Gap BUN Creatinine Est Cr Clr Drug Dosing Est GFR ( Amer) Est GFR (Non-Af Amer) BUN/Creatinine Ratio Glucose POC Glucose 117 H 153 H Calcium Vitamin B1 6 L 06/21/19 06/21/19 06/21/19 06:15 07:01 11:39 Sodium 140 Potassium 3.9 Chloride 113 H Carbon Dioxide 21 Anion Gap 6.0 BUN 29 H Creatinine 1.27 Est Cr Clr Drug Dosing 56.5 Est GFR ( Amer) 64.5 Est GFR (Non-Af Amer) 55.7 BUN/Creatinine Ratio 22.4 H Glucose 105 H POC Glucose 98 141 H Calcium 8.8 Vitamin B1 Current Inpatient Medications Current Inpatient Medications: Current Inpatient Medications Acetaminophen (Tylenol) 1,000 mg PO TID [facility] Stop: 07/19/19 20:59 Last Admin: 06/21/19 08:47 Dose: 1,000 mg Documented by: Aspirin (Ecotrin Ectab) 81 mg PO DAILY [facility] Stop: 07/15/19 08:59 Last Admin: 06/21/19 08:48 Dose: 81 mg Documented by: Atorvastatin Calcium (Lipitor) 80 mg PO QAM [facility] Stop: 07/15/19 08:59 Last Admin: 06/21/19 08:48 Dose: 80 mg Documented by: Citalopram Hydrobromide (Celexa) 20 mg PO QAM [facility] Stop: 07/16/19 08:59 Last Admin: 06/21/19 08:48 Dose: 20 mg Documented by: Cyanocobalamin (Vitamin B-12) 1,000 mcg IM DAILY [facility] Stop: 07/17/19 09:59 Last Admin: 06/21/19 08:51 Dose: 1,000 mcg Documented by: Dextrose (Dextrose 50%) 25 - 50 ml IV UD PRN; Protocol PRN Reason: Hypoglycemia Protocol Stop: 07/14/19 11:20 Fexofenadine HCl (Nikky) 60 mg PO BID [facility] Stop: 07/20/19 20:59 Last Admin: 06/21/19 08:48 Dose: 60 mg Documented by: Folic Acid (Folvite) 1 mg PO QAM [facility] Stop: 07/15/19 16:59 Last Admin: 06/21/19 08:48 Dose: 1 mg Documented by: Glucagon (Glucagen) 1 mg SQ UD PRN; Protocol PRN Reason: Hypoglycemia Protocol Stop: 07/14/19 11:20 Glucose (Dex4 Glucose) 4 - 8 tabs PO UD PRN; Protocol PRN Reason: Hypoglycemia Protocol Stop: 07/14/19 11:20 Glucose (Glucose 40%) 15 - 30 gm PO UD PRN; Protocol PRN Reason: Hypoglycemia Protocol Stop: 07/14/19 11:20 Heparin Sodium (Porcine) (Heparin Sodium (Porcine)) 5,000 units SQ Q12 [facility] Stop: 07/14/19 20:59 Last Admin: 06/21/19 08:49 Dose: 5,000 units Documented by: Furosemide 40 mg/ Syringe 4 mls @ 4 mls/min IV DAILY [facility] Stop: 07/17/19 08:59 Last Admin: 06/21/19 08:57 Dose: 4 mls/min Documented by: Insulin Aspart (Novolog Flexpen) 0 units SC ACHS [facility] Stop: 07/14/19 12:59 Last Admin: 06/21/19 11:59 Dose: 6 units Documented by: Insulin Glargine (Lantus Solostar Pen) 0 units SC HS [facility]; Protocol Stop: 07/14/19 20:59 Last Admin: 06/20/19 20:42 Dose: 35 units Documented by: Ioversol (Optiray 320 125ml) 117 ml IV ONCE PRN PRN Reason: Interaction Checking Stop: 06/22/19 00:26 Last Admin: 06/18/19 00:28 Dose: 117 ml Documented by: Isosorbide Mononitrate (Imdur Extended Rel) 60 mg PO QAM [facility] Stop: 07/15/19 08:59 Last Admin: 06/21/19 08:48 Dose: 60 mg Documented by: Lidocaine (Lidoderm 5%) 3 patch TD QPM [facility] Stop: 07/19/19 18:59 Last Admin: 06/20/19 20:46 Dose: 3 patch Documented by: Metoprolol Tartrate (Lopressor) 75 mg PO BID [facility] Stop: 07/14/19 20:59 Last Admin: 06/21/19 08:48 Dose: 75 mg Documented by: Miscellaneous (Carbohydrates For Hypoglycemia) 15 - 30 gm PO UD PRN PRN Reason: Hypoglycemia Protocol Stop: 07/14/19 11:20 Miscellaneous (Remove Lidoderm Patch) 1 ea N/A DAILY@0900 [facility] Stop: 07/20/19 08:59 Last Admin: 06/21/19 08:50 Dose: 1 ea Documented by: Miscellaneous Information (Consult Glycemic Management Pharmacy) 1 ea N/A UD PRN; Protocol PRN Reason: Consult Stop: 07/14/19 12:01 Ondansetron HCl (Zofran) 4 mg IV Q4H PRN PRN Reason: Nausea Stop: 07/14/19 11:20 Pantoprazole Sodium (Protonix) 40 mg PO QAM [facility] Stop: 07/15/19 08:59 Last Admin: 06/21/19 08:47 Dose: 40 mg Documented by: Risperidone (Risperdal) 1 mg PO HS [facility] Stop: 07/17/19 20:59 Last Admin: 06/20/19 20:49 Dose: 1 mg Documented by: Risperidone (Risperdal M) 0.5 mg PO QAM [facility] Stop: 07/20/19 08:59 Last Admin: 06/21/19 08:47 Dose: 0.5 mg Documented by: Thiamine HCl (Vitamin B-1) 200 mg PO BID [facility] Stop: 07/20/19 20:59 Last Admin: 06/21/19 08:47 Dose: 200 mg Documented by: Topiramate (Topamax) 100 mg PO BID [facility] Stop: 07/14/19 20:59 Last Admin: 06/21/19 08:50 Dose: 100 mg Documented by: Tramadol HCl (Ultram) 50 mg PO Q6H PRN PRN Reason: pain Stop: 07/14/19 11:20 Last Admin: 06/16/19 08:46 Dose: 50 mg Documented by: Triamcinolone Acetonide (Kenalog 0.1%) 1 appln EXT TID [facility] Stop: 07/20/19 20:59 Last Admin: 06/21/19 08:48 Dose: 1 appln Documented by:
--- NOTE | 2019-06-21 18:05 | Discharge Summary ---
Date of Service date of admission - June 14, 2019 date of discharge - June 21, 2019 Admission HPI Per Admitting Provider 74yo M w/ hx of CAD s/p CABG on 05/23/2019 at [facility] who presents with delusional disorder. He was admitted to the hospital from 06/05/2019 to 06/09/2019 with CHF exacerbation. His family reports that he has been taking his Lasix as prescribed; however, he has had less and less urine output per his family. As importantly, they report that he has had increasing delusions since February of this year. Per family, this has never been an issue. In , he was holding down a job and was totally functional. In March, they started noting delusions, and they report it has been getting worse since that time. In the ED, his reported that she no longer feels safe at home. He perseverates on these delusions and if he feels she is contradicting him in any fashion, he will snap at her. This is the main reason they have brought him to the Emergency Department. They deny any inciting event such as a car accident, concussion, emotional trauma, or other event that could have triggered this issue. Principal Diagnosis delusions/hallucinations; psychotic disorder Discharge Exam Constitutional well developed and well nourished; no acute distress and no altered mental status ENMT external ear and nose normal, oropharynx normal Respiratory normal respiratory effort, lungs clear to auscultation Auscultation: + diminished lung sounds (bases) Cardiovascular Rate/Rhythm: regular rate and regular rhythm Heart Sounds: normal S1, normal S2 and + murmur (1/6 LLSB) Vessels: posterior tibial pulses present and dorsalis pedis pulses present; no JVD Extremities: + edema (trace b/l) Gastrointestinal (Abdomen) normal bowel sounds, soft, nontender, no hepatosplenomegaly Psychiatric Orientation: alert and oriented x 3 Thought Content: + delusions Hallucinations: + visual hallucinations and + tactile hallucinations Discharge Data Allergies Allergy/AdvReac Type Severity Reaction Status Date / Time morphine AdvReac Severe "STOPS MY Verified 06/14/19 08:08 HEART" hydromorphone [From Dilaudid] AdvReac Intermediate unresponsiv Verified 06/14/19 08:08 eness trazodone AdvReac Intermediate GI UPSET Verified 06/14/19 08:08 diazepam AdvReac Mild HALLUCINATE Verified 06/14/19 08:08 S propoxyphene AdvReac Mild DRUG Verified 06/14/19 08:08 INTOLERANCE Consultations Cardiology Psychiatry PT, OT Ordered Studies 06/14/19 07:51 CT head/brain wo con Stat 06/14/19 11:21 US venous doppler LE BI Stat 06/14/19 20:54 MR brain wo con Stat 06/15/19 12:36 US carotid doppler BI Routine 06/16/19 11:00 FL lumbar puncture diagnostic Routine 06/17/19 17:01 CT cervical spine wo con Stat CT head/brain wo con Stat 06/17/19 19:54 CT angio head w con Routine CT angio neck with con Routine EEG - no seizure activity Hospital Course (1) Chest pain: The patient complained of chest discomfort multiple times throughout this hospital stay. He reported that it was usually constant and that the "worms" were inside his lungs causing such. Numerous troponins were checked and all were negative. Numerous EKGS were checked and were found to be unchanged from prior tracings. Sed rate and crp were normal making pericarditis highly unlikely. He had normal O2 sats and no complaints of dyspnea making PE unlikely. Echo on 06/06/19 showed preserved EF with normal wall motion. Suspect musculoskeletal etiology -- perhaps from sternal scar from recent CABG? (2) Delusional disorder: This was a persistent problem the entire hospitalization. Independent conversations with his and son both confirmed that the stories of his occupational chemical exposure years ago is true but his preoccupation with those events became more prominent in Feb/Mar of 2018. Further, he now has severe visual and tactile hallucinations with bugs/worms on his skin, coming out from his nose and lungs/sputum, seeing the bugs/worms on the floor, etc. He was seen in consult by psychiatry who initiated risperdal. This was titrated to 1mg HS and 0.5mg qam. Work-up for these psychotic symptoms included MRI brain, labs, etc. 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 B12 level was low. B1 level was sent but was pending at time of discharge. In some circumstances vitamin B12 def can cause psychosis/mental status changes. Thus, he received 5 doses of parenteral B12 during this hospital stay and will transition to 1000mcg of oral B12 upon transfer to [facility]. We were awaiting B1 level. Has h/o alcoholism (quit 3 years ago) and thus we provided thiamine 200mg BID IV initially then changed to PO formulation. He should continue on thiamine upon transfer to mental health. Since the patient's psychosis did not improve with risperdal, and given the severity of his symptoms, psychiatry felt he should be hospitalized in the mental health unit after medical clearance. Thus, on 06/21/2019, he transferred to the mental health unit at [facility] for ongoing psychiatric treatment. (3) Spell of generalized weakness: On 06/17/19 the patient developed flaccid weakness of all 4 limbs while sitting in the chair next to his bed. Symptoms lasted 1 hour then resolved on own. This event occurred in the setting of a stressful conversation with his breastfeeding peer counselor and subsequently his son. In fact, the flaccid limbs started when his son walked into his room. Apparently Mr Blanchard and his son had not seen each other in 4+ years. CTA head/neck and CT head all negative. CT c-spine also negative. prolactin was normal (doubt seizure). doubt syncope (he was speaking during the first portion of the event - he kept saying "I can't move my legs or arms"). At the conclusion of the event the patient randomly began to move his arms/legs again. As his strength normalized he began to cry stating "Brendon helped me!" Some form of conversion reaction was suspected. No additional events occurred for the remainder of his medical stay. Family states he had a similar episode at home just prior to admission. The family remembers that he was crying during the spell at home much like the one witnessed here. (4) Acute on chronic diastolic (congestive) heart failure: Received IV diuresis for most of his stay. BUN and Cr remained stable during diuresis. He was euvolemic at discharge. While in the mental health unit recommend daily weights, 1800cc of fluid restriction, salt restriction, and lasix 40mg daily. The lasix dose can be adjusted based on labs and clinical/volume status. (5) CAD in [place] artery: s/p 4-vessel CABG [facility] 05/2019. cont asa, statin, BB, imdur, lasix. see "chest pain" above. (6) Diabetes mellitus: control excellent with basal-bolus insulin regimen while hospitalized (7) GERD (gastroesophageal reflux disease): cont PPI (8) Hyperlipidemia: cont statin (9) Hypertension: controlled no change in meds while here (10) Fever: had fever at time of admission blood cx's were negative attempts at LP were not successful even under Fluro guidance recent Lyme's and anaplasmosis testing were negative cxr w/o pneumonia had no cellulitis on exam resolved w/o intervention no fevers since the early part of his stay the exact etiology of the fever was uncertain (11) B12 deficiency: B12 level was 219. In light of psychiatric symptoms he was replaced parenterally for 5 days while here. At discharge to mental [facility] recommend 1000mcg PO daily of B12. He should take this for about 12 months. He was also found to have folate deficiency - replace 1mg po daily x 30 days. (12) History of alcoholism: heavy - drank case beer each day up until 3 years ago. placed on vitamin B1 supplementation while awaiting level. 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 (13) Chronic kidney disease, stage 3a: Cr stable/baseline while here discharge Cr was 1.27 (14) DVT prophylaxis: heparin SC while hospitalized (15) Chronic pruritic rash in adult: Patient has seen dermatology as outpatient - records indicate his rash is likely an eczema-type rash. Patient is certain it is due to prior occupational chemical exposure but highly unlikely. He has received anti-histamines and topical steroids for the rash(es). Total Time Total Time Spent Total Time Spent (In Minutes): 45 Total Time Includes: Examination of the Patient, Discharge Planning, Medication Reconciliation and Communication With Other Providers Discharge Plan Discharge Items Patient Disposition: Transfer Behavioral Health Fac Reason For Visit: TACHYCARDIA,DELUSIONS,ACUTE/CHRONIC CHF Discharge Diagnosis: 1. delusions/hallucinations 2. acute/chronic diastolic CHF Activity: Resume your previous activity Non-emergency contact: Primary Care Provider and Substance Abuse Therapist Call non-emergency contact if: you have any medication questions, your symptoms worsen and you have a fever Follow-up/Referrals: Fox Moran MD [Primary Care Provider] - Diet: Carb Consistent or DM2 and Heart Healthy Fluids: 1800ml (7 cups) Addtl Attending Provider Instructions: 1. While in mental health unit - check blood sugars before meals and at bedtime. 2. AM of 06/22/2019 - check BMP. Pending Studies at Discharge: No Stand-Alone Forms: My [facility] Medications and DC Order Prescriptions: New fexofenadine 60 mg Tablet 60 mg PO BID Qty: 60 RF: 0 thiamine HCl (vitamin B1) [Vitamin B-1] 100 mg Tablet 200 mg PO BID Qty: 120 RF: 0 aspirin [Ecotrin Low Strength] 81 mg Tablet,Delayed Release (Dr/Ec) 81 mg PO DAILY Qty: 30 RF: 0 triamcinolone acetonide 0.1 % Ointment 1 applic EXT TID 7 Days Qty: 30 RF: 0 folic acid 1 mg Tablet 1 mg PO QAM Qty: 30 RF: 0 cyanocobalamin (vitamin B-12) 1,000 mcg capsule 1,000 mcg PO DAILY Qty: 30 RF: 11 Continued isosorbide mononitrate 60 mg tablet extended release 24 hr 60 mg PO QAM Qty: 90 RF: 3 atorvastatin [Lipitor] 80 mg tablet 80 mg PO QAM Qty: 90 RF: 3 potassium chloride [K-Tab] 20 mEq tablet extended release 20 meq PO QAM Qty: 90 RF: 3 metoprolol tartrate 75 mg tablet 75 mg PO BID Qty: 60 RF: 2 (DME) pen needle, diabetic [BD Ultra-Fine Short Pen Needle] 31 gauge x 5/16" needle See Dose Instructions .ROUTE .MEDSUPPLY Qty: 30 RF: 0 nitroglycerin [Nitrostat] 0.4 mg tablet, sublingual 0.4 mg SL Q5M PRN (Reason: Chest Pain) Qty: 1 RF: 0 sennosides-docusate sodium [Senna with Docusate Sodium] 8.6-50 mg tablet 1 tab PO QAM RF: 0 tramadol [Ultram] 50 mg tablet 50 mg PO Q6H PRN (Reason: pain) RF: 0 acetaminophen [Tylenol Extra Strength] 500 mg tablet 1,000 mg PO Q8H PRN (Reason: Pain) RF: 0 polyethylene glycol 3350 [Miralax] 17 gram/dose powder 17 gm PO QAM RF: 0 topiramate [Topamax] 100 mg tablet 100 mg PO BID RF: 0 pantoprazole 40 mg Tablet,Delayed Release (Dr/Ec) 40 mg PO DAILY RF: 0 Discontinued insulin lispro [Humalog KwikPen Insulin] 100 unit/mL insulin pen 20 - 40 units SUBCUT AC RF: 0 Lantus Solostar U-100 Insulin 100 unit/mL (3 mL) insulin pen 40 - 65 units SQ HS MDD 65 units RF: 0 citalopram [Celexa] 40 mg tablet 40 mg PO SUTUTHSA Qty: 90 RF: 3 furosemide [Lasix] 20 mg tablet 20 mg PO BID Qty: 90 RF: 3 aspirin 81 mg tablet,chewable 81 mg PO Q OTHER DAY RF: 0 citalopram [Celexa] 20 mg tablet 20 mg PO MOWEFR RF: 0 diclofenac sodium [Voltaren] 1 % gel 2 gm TOP QID Qty: 100 RF: 0 mupirocin [Centany] 2 % ointment 1 appln TOP BID RF: 0 No Action famotidine 40 mg Tablet 40 mg PO QAM 1 Days Qty: 1 RF: 0 risperidone 1 mg Tablet,Disintegrating 1 mg PO BID Qty: 1 RF: 0 Lantus Solostar U-100 Insulin 100 unit/mL (3 mL) Insulin Pen 0 unit subcut HS 1 Days Qty: 1 RF: 0 Discharge Orders: Discharge Order (Routine); Ordered 06/21/19 Ordered By: Wil Arreola Admission Data Admit Date/Time: 06/14/19 10:16 Attending Provider: Wil Arreola Admit Provider: Xavier Aparicio Primary Care Provider: Fox Moran Other Providers: Xavier Aparicio ; Julián Rivera ; Caitlin Robles ; [facility] ; Casandra Jackson [facility] ; [place] Other Interventions: Discharge Summary Assessment (RN) Last Done: 06/21/19 21:25 DC Date/Time DO NOT enter until pt leaves facility: 06/21/19 21:50
[2019-06-21] MEDS: risperiDONE 1 MG TABLET PO SCH (20:16)
[2019-06-21] MEDS: LIDOCAINE 5% 1 PATCH TD SCH (20:21)
[2019-06-21] MEDS: INSULIN GLARGINE SOLOSTAR 100 UNITS/ML 3 ML PEN SC SCH (20:22)
--- NOTE | 2019-06-26 12:38 | Coding Query ---
SEPSIS To promote full compliance with coding requirements relating to patient care, physician participation is requested in all cases of production assembly supervisor uncertainty. Please assist us with the question(s) below: In responding to this query, please exercise your independent professional judgement. The fact that a question is asked does not imply that any particular answer is desired or expected. We appreciate your clarification on this issue. Throughout the medical record, you have clearly documented a localized infection and your patient has clinical evidence of a generalized sepsis or severe sepsis. The term urosepsis is a nonspecific entity and is coded as an UTI. If the patient has sepsis, severe sepsis, from an urinary source or some other source, please clarify in your response below. The medical record reflects the following clinical findings: 06/16 progress note " at present seems to be in tachycardia and fever. Started on IV antibiotis and fluids. Source unclear". Thanks for your help!!! Antoni Almonte [facility] ____ ( )Bacteremia (Nonspecific laboratory finding of bacteria in the blood) Specify Organism ( ) Present on Admission ( ) Not present on admission ( ) Unable to clinically determine ( ) Septicemia (Systemic disease associated with the presence of pathogenic microorganisms in the blood): Specify Organism ( ) Present on Admission ( ) Not present on admission ( ) Unable to clinically determine ( ) Sepsis Specify Organism Specify Associated Condition/Diagnosis ( ) Present on Admission ( ) Not present on admission ( ) Unable to clinically determine ( ) Severe Sepsis (Sepsis associated with acute organ dysfunction) Specify Organism Specify Associated Condition/Diagnosis ( ) Present on Admission ( Not present on admission ( ) Unable to clinically determine ( ) Septic Shock (Severe sepsis with acute circulatory failure, unexplained by other causes) ( ) Present on Admission ( ) Not present on admission ( ) Unable to clinically determine (xx ) Other, patient has: SIRS (systemic inflammatory response syndrome) -- cause of SIRS was never found. AMANDA
== END 2019-06-21 21:50 | DRG 308 ==
LOC: ED 07:36 → 2S 10:16 → SUATTDRO 10:16 → 2S 10:58

== ENCOUNTER 2019-06-21 20:10 | Inpatient (IN) ==
[2019-06-21] MEDS ORDERED: ACETAMINOPHEN 325 MG TAB PO PRN (21:05)
[2019-06-21] MEDS ORDERED: BISMUTH SUBSALICYLATE PER ML OMNICELL CHARGE PO PRN (21:05)
[2019-06-21] MEDS ORDERED: MAGNESIUM HYDROXIDE SUSP 30 ML UDC PO PRN (21:05)
[2019-06-21] MEDS ORDERED: SODIUM CHLORIDE 0.65% NA SOLN 45 ML (OCEAN) PRN (21:05)
[2019-06-21] MEDS ORDERED: ALUMINUM/MAGNESIUM SUSP 30 ML UDC PO PRN (21:05)
[2019-06-21] MEDS ORDERED: NON-FORMULARY MEDICATION (Melatonin 5 MG) PO PRN (21:07)
[2019-06-21] MEDS ORDERED: ACETAMINOPHEN 500 MG TAB PO PRN (21:07)
[2019-06-21] MEDS ORDERED: NITROGLYCERIN SL 0.4 MG/TAB TAB SL PRN (21:07)
[2019-06-21] MEDS ORDERED: TRAMADOL HCL 50 MG TABLET PO PRN (21:13)
[2019-06-21] MEDS ORDERED: [UNRECOGNIZED DRUG - OTHER] SCH (21:15)
[2019-06-21] MEDS ORDERED: ASPIRIN 81 MG CHEW PO SCH (21:15)
[2019-06-21] MEDS ORDERED: PATIENT'S HEIGHT AND/OR WEIGHT NEEDED SCH (21:45)
[2019-06-21] MEDS ORDERED: PHARMACY GLYCEMIC MGMT CONSULT PRN (21:59)
[2019-06-21] MEDS ORDERED: risperiDONE 1 MG TABLET PO SCH (22:00)
[2019-06-21] MEDS ORDERED: INSULIN GLARGINE SOLOSTAR 100 UNITS/ML 3 ML PEN SQ SCH (22:00)
[2019-06-22] MEDS ORDERED: GLUCOSE 40% GEL 15 GM TUBE PO PRN (00:15)
[2019-06-22] MEDS ORDERED: DEXTROSE 50% 50 ML SYRINGE IV PRN (00:15)
[2019-06-22] MEDS ORDERED: GLUCOSE 10 TABS/TUBE PO PRN (00:15)
[2019-06-22] MEDS ORDERED: GLUCAGON FOR INJ 1 MG VIAL IM PRN (00:15)
[2019-06-22] MEDS ORDERED: CARBOHYDRATES FOR HYPOGLYCEMIA PO PRN (00:15)
[2019-06-22 06:46] VITALS: TEMP 98.6
[2019-06-22] MEDS: FEXOFENADINE 60 MG TAB PO SCH ×2 (08:31→21:08)
[2019-06-22] MEDS: ISOSORBIDE MONO EXTENDED REL 60 MG TABCR PO SCH (08:32)
[2019-06-22] MEDS: FOLIC ACID 1 MG TAB PO SCH (08:32)
[2019-06-22] MEDS: ASPIRIN 81 MG ECTAB PO SCH (08:32)
[2019-06-22] MEDS: POTASSIUM CHLORIDE 20 MEQ TABCR PO SCH (08:33)
[2019-06-22] MEDS: METOPROLOL TARTRATE 25 MG TAB PO SCH ×2 (08:34→21:04)
[2019-06-22] MEDS: ATORVASTATIN 40 MG TAB PO SCH (08:34)
[2019-06-22] MEDS: PANTOprazole 40 MG TAB PO SCH (08:35)
[2019-06-22] MEDS: FAMOTIDINE 40 MG TABLET PO SCH (08:35)
[2019-06-22] MEDS: DOCUSATE SODIUM/SENNA 50/8.6MG TAB PO SCH (08:36)
[2019-06-22] MEDS: TOPIRAMATE 100 MG TAB PO SCH ×2 (08:37→21:10)
[2019-06-22] MEDS: CYANOCOBALAMIN 500 MCG TABLET (VITAMIN B-12) PO SCH (08:37)
[2019-06-22] MEDS: THIAMINE HCL 100 MG TAB PO SCH ×2 (08:37→21:10)
[2019-06-22] MEDS: POLYETHYLENE (MIRALAX) 17 GM PACK PO SCH (08:38)
[2019-06-22] MEDS: TRIAMCINOLONE ACET 0.1% OINT 15 GM TUBE EXT SCH ×3 (08:45→21:08)
[2019-06-22] MEDS: INSULIN ASPART 100 UNITS/ML 3 ML PEN SQ SCH ×4 (08:49→21:51)
[2019-06-22] MEDS ORDERED: risperiDONE ODT 0.5 MG SOLTAB PO SCH (09:00)
[2019-06-22] MEDS ORDERED: DICLOFENAC SOD 1% GEL 100 GM TUBE EXT SCH (09:00)
[2019-06-22] MEDS ORDERED: MUPIROCIN 2% OINT 22 GM TUBE TOP SCH (09:00)
[2019-06-22] MEDS ORDERED: FUROSEMIDE 20 MG TAB PO SCH (09:00)
[2019-06-22] MEDS ORDERED: FUROSEMIDE 40 MG TAB PO SCH (09:00)
--- NOTE | 2019-06-22 10:19 | Pharmacy Report ---
Pharmacy Glycemic Short Note 2 - Date of Service June 22, 2019 - Glycemic Short BSG Results (Last 24 hours): 06/22/19 08:21 POC Glucose 112 H OUTPATIENT ANTIDIABETIC REGIMEN: * Lantus 40-65 units SQ qHS - reports having low blood sugars on these doses at home * Novolog 10-15 units with meals * A1c = 6.5% 05/15/19 ASSESSMENT: 06/19/19 - 06/20/19: Pt received ~55 units of insulin * BSGs ranging 107 - 186 mg/dl * 35 units of basal insulin {Lantus} * ~20 units of bolus insulin {NovoLog} * No changes made to regimen on these days 06/21/19: Pt received 48 units of insulin * BSGs ranging 98 - 144 mg/dl * 30 units of basal insulin {Lantus} * 18 units of bolus insulin {NovoLog} * Basal insulin decreased this day for "low" {for inpatient targets} AM fasting BSG of 98 mg/dl. 06/22/19: Pt transferred from medical to [facility]. Pharmacy consult continued. * AM fasting BSG in goal range at 112 mg/dl this morning with reduced basal insulin dosing from 06/21/19 * Post-prandial BSGs in goal range. No change needed to CF/CR * No changes needed to regimen today. PLAN FOR INPATIENT GLYCEMIC CONTROL: * Basal insulin - reduced dose as compared to outpt Rx. Continue current inpatient dosing * Lantus 25-30 units SQ qHS * BSG below 140 mg/dl --> give 25 units * BSG 140 mg/dl or above --> give 30 units * Bolus insulin: no changes * NovoLog per scale ACHS or Q6hrs while NPO * Goal Range: Low 110 mg/dL - High 140 mg/dL * Correction Factor: 30 mg/dL/unit * Nutritional / Prandial insulin per carb ratio of 1 unit per 8 grams CHO consumed DISCHARGE RECOMMENDATIONS: * A1c 6.5%, A1c appears to be excellent, but patient reports hypoglycemia on home dose of Lantus * Recommend changing Lantus to 25-30 units HS on discharge, continue Novolog as directed
[2019-06-22] MEDS ORDERED: risperiDONE ODT 0.5 MG SOLTAB PO ONE (10:58)
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
--- NOTE | 2019-06-22 17:58 | Consultation ---
Date of Consultation June 22, 2019 Assessment & Plan (1) Psychotic disorder: Now admitted to MHU. On risperdal; management per psychiatry. Uncertain if B12 / B1 deficiency could be contributing to symptoms. Replace with 1000mcg B12 orally and thiamine 200mg BID. Previous RPR negative. Previous TSH wnl. (2) CAD in [place] artery: s/p CABG 05/2019 - [facility]. Continue asa, statin, lasix, imdur, beta beto. (3) Status post coronary artery bypass graft: (4) Chest pain: Patient has frequent complaints of left-sided chest discomfort. It is often constant. No pleuritic component to it. During previous admission to medical floor he had multiple troponins, echo, EKGs, etc -- all stable/normal. He blames the pain on the "worm" infestation he has. Could be pain related to his sternal incision. Follow carefully. (5) Stage III chronic kidney disease: Baseline Cr 1.2-1.3. BMP in am. (6) Hyperlipidemia: cont statin (7) Hypertension: controlled cont home meds (8) Chronic diastolic CHF (congestive heart failure): compensated cont beta beto cont lasix 40mg qam daily weights AHA diet (9) History of CVA (cerebrovascular accident): cont asa for secondary prevention during previous admission had MRI showing punctate stroke in the left parietal region it was not felt to be contributing to his psychosis (10) Esophageal reflux: cont protonix daily (11) Vitamin B12 deficiency: s/p 5 doses of IM B12 during prior medical admission. now on 1000mcg daily of oral B12. (12) Thiamine deficiency: B1 level very low. thiamine 200mg BID x 1 month. (13) Nose irritation: nasal saline spray prn Thank you for this consult. The medical team will follow with you. History of Present Illness Requesting Physician: Dr Leigh Vaz Reason for Consultation: medical management of CAD, other chronic medical problems Attending Physician: Leigh Vaz MD History of Present Illness 74yo male - well known to me from multiple medical admissions - with CAD s/p 4-vessel CABG at [facility] in early May, T2DM, prior h/o heavy tobacco and alcohol use up until 3 years ago, CKD stage 3, and chronic diastolic CHF -- who was transferred to the MHU yesterday for ongoing delusions & hallucinations. He was hospitalized from 06/14 to 06/21 for acute/chronic diastolic CHF as well as worsening hallucinations. During an earlier stay in May the patient had consistently told a story of occupational chemical exposure years ago which is now triggering skin rashes. His family has confirmed that indeed he had this exposure years ago. However, over the last month, he has become focused on the presence of worms and bugs on his skin, in his lungs, and also seeing them on the floor/metzger/etc. He was started on risperdal for these psychotic symptoms during the previous medical admission however the delusions/hallucinations persisted and thus he was admitted to the MHU yesterday. Of note - during the previous stay vitamin B12 deficiency and folate deficiency were found. He received 5 days of parenteral B12. Today his vitamin B1 level returned and he is also deficient on such. Allergies Allergy/AdvReac Type Severity Reaction Status Date / Time morphine AdvReac Severe "STOPS MY Verified 06/14/19 08:08 HEART" hydromorphone [From Dilaudid] AdvReac Intermediate unresponsiv Verified 06/14/19 08:08 eness trazodone AdvReac Intermediate GI UPSET Verified 06/14/19 08:08 diazepam AdvReac Mild HALLUCINATE Verified 06/14/19 08:08 S propoxyphene AdvReac Mild DRUG Verified 06/14/19 08:08 INTOLERANCE Home Medications Home Medications Medication Instructions Recorded Confirmed Type pen needle, diabetic 31 gauge x #30 ea 12/03/18 06/14/19 Rx 5/16" nitroglycerin 0.4 mg sublingual 0.4 mg SL Q5M PRN #1 tab 02/05/19 06/14/19 History tablet ranitidine HCl 300 mg tablet 300 mg PO HS #90 tab 05/12/19 06/14/19 Rx melatonin 5 mg PO HS PRN 05/30/19 06/14/19 History metoprolol tartrate 75 mg tablet 75 mg PO BID #60 tab 05/30/19 06/14/19 Rx acetaminophen [Tylenol Extra 1,000 mg PO Q8H PRN 06/05/19 06/14/19 History Strength] pantoprazole [Protonix] 40 mg PO QAM 06/05/19 06/14/19 History polyethylene glycol 3350 [Miralax] 17 gm PO QAM 06/05/19 06/14/19 History sennosides-docusate sodium [Senna 1 tab PO QAM 06/05/19 06/14/19 History with Docusate Sodium] topiramate [Topamax] 100 mg PO BID 06/05/19 06/14/19 History tramadol [Ultram] 50 mg PO Q6H PRN 06/05/19 06/14/19 History atorvastatin 80 mg tablet 80 mg PO QAM #90 tab 06/12/19 06/14/19 Rx isosorbide mononitrate 60 mg 60 mg PO QAM #90 tab 06/12/19 06/14/19 Rx tablet,extended release 24 hr potassium chloride 20 mEq 20 meq PO QAM #90 tab 06/12/19 06/14/19 Rx tablet,extended release pantoprazole 40 mg PO DAILY 06/14/19 06/14/19 History Lantus Solostar U-100 Insulin 35 units SQ HS #0 ml MDD 65 units 06/21/19 06/14/19 Rx aspirin [Ecotrin Low Strength] 81 mg PO DAILY #30 tab 06/21/19 Rx citalopram [Celexa] 20 mg PO QAM #0 tab 06/21/19 06/14/19 Rx cyanocobalamin (vitamin B-12) 1,000 mcg PO DAILY #30 cap 06/21/19 Rx fexofenadine 60 mg PO BID #60 tab 06/21/19 Rx folic acid 1 mg PO QAM #30 tab 06/21/19 Rx furosemide [Lasix] 40 mg PO QAM #90 tab 06/21/19 06/14/19 Rx insulin lispro [Humalog KwikPen 1 units SUBCUT ACHS #5 pen 06/21/19 06/14/19 Rx Insulin] risperidone 0.5 mg PO QAM 30 Days #30 tab 06/21/19 Rx risperidone 1 mg PO HS #30 tab 06/21/19 Rx thiamine HCl (vitamin B1) [Vitamin 200 mg PO BID #120 tab 06/21/19 Rx B-1] triamcinolone acetonide 1 applic EXT TID 7 Days #30 gm 06/21/19 Rx Patient History Medical History Atypical chest pain (Resolved) Benign colonic polyp (Chronic) CAD in [place] artery Cellulitis Cognitive disorder (Chronic) Controlled type 2 diabetes mellitus with neurologic complication, with long-term current use of insulin (Resolved) Conversion disorder (Resolved) Diabetes mellitus, type 2 Diabetic peripheral neuropathy (Chronic) Dyslipidemia (Resolved) Esophageal reflux (Chronic) History of colon polyps (Chronic) History of tobacco use (Resolved) Hyperlipidemia (Chronic) Hypertension Kidney stone on right side (Resolved) Migraines, neuralgic Myocardial Infarction (Resolved) 2004--follows with Dr. Mejia Nephrolithiasis (Resolved) Neurological deficit present (Resolved) Neuropathy (Chronic) Osteoarthritis (Chronic) Raynauds phenomenon (Chronic) Stage III chronic kidney disease Tubular adenoma of colon (Resolved) Vitamin D deficiency (Chronic) Wound of left foot (Resolved) Surgical History History of arthroscopy of left knee (Resolved) History of cardiac cath (Resolved) x3-4, last 2014 History of carpal tunnel release of both wrists (Resolved) History of colonoscopy (Resolved) History of heart artery stent (Resolved) x1--1999 History of lithotripsy (Resolved) x2 History of lumbar discectomy (Resolved) x2 History of open reduction and internal fixation (ORIF) procedure (Resolved) left ankle--hardware in place History of right cataract extraction (Resolved) History of tonsillectomy and adenoidectomy (Resolved) 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[facility] - 05/2019 Status post uvulopalatopharyngoplasty (Resolved) Family History Father Family history of diabetes mellitus Family hx of colon cancer Other No family history of adverse response to anesthesia Social History (Updated 06/22/19 @ 19:23 by Wil Arreola) Preferred Language: Serbian Communication Ability: Effective Visual Impairment: No Limitations Torch Straightener Required: No Beliefs That Will Affect Care: None marital status: marital status details: 3 children Current Living Situation: Spouse current occupational status: retired other: worked -[employer]); 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 ; Second Hand Exposure: No ; Hx Alcohol Use: Yes Alcohol type: beer Alcohol type Comment: heavy use until age 71; case beer/day at times Hx Substance Use: No Review of Systems Constitutional: no fever, no chills, no fatigue and no anorexia Ear, Nose, Mouth, Throat: + epistaxis (mild) Respiratory: + cough; no dyspnea on exertion and no wheezing Cardiovascular: Additional Comments: patient always c/o "chest pain" / tightness over the left breast he has complained about this for many days work-ups have been negative despite such he walked 36 laps around the MHU today (1 mile) Gastrointestinal: no abdominal pain, no nausea, no vomiting, no constipation and no diarrhea/loose stools Genitourinary: no difficulty urinating Musculoskeletal: no joint pain Integumentary: + rash and + non-healing lesions Neurologic: no localized weakness Psychiatric: as per Subjective / HPI Endocrine: no fatigue, no polydipsia, no polyphagia and no polyuria Physical Exam Constitutional: well developed and well nourished; no acute distress and no altered mental status Eyes: PERRL ENMT: Nose: + nare abnormality (old, dried blood present) Mouth: no oral mucosal abnormality Neck: trachea midline, no thyromegaly Respiratory: normal respiratory effort, lungs clear to auscultation Cardiovascular: Rate/Rhythm: regular rate and regular rhythm Heart Sounds: normal S1, normal S2 and + murmur (1/6 LSB) Vessels: posterior tibial pulses present and dorsalis pedis pulses present; no JVD Extremities: + edema (trace b/l ) Gastrointestinal (Abdomen): normal bowel sounds, soft, nontender, no hepatosplenomegaly Skin: scattered ulcers - 1 behind right ear; another on left leg; erythematous papule/scab forehead Neurologic: patellar DTR's 2+ bilat, sensation intact moves all extremities; no focal motor deficits Psychiatric: Orientation: alert and oriented x 3 Eye Contact: good eye contact Thought Process: + thought process not linear or logical Thought Content: + preoccupation and + delusions Lymphatic: no cervical lymphadenopathy Results & Data Vital Signs (Past 12 Hours) Vital Signs Temp Pulse Resp BP 06/22/19 06:45 93 H 101/69 06/22/19 06:44 37 C 91 H 20 116/77 Laboratory Results Laboratory Results - last 24 hr 06/22/19 06/22/19 06/22/19 08:21 12:30 17:21 POC Glucose 112 H 143 H 118 H Diagnostic Findings vitamin B1 level - 6 (low) PG Care Time/CCT Total # of Minutes Spent Total Time Spent with Patient: Total time spent is greater than 50% in coordination of care (as documented) at patient's floor/unit and/or counseling patient: (1) Hyperlipidemia Hyperlipidemia type: unspecified Qualified Code(s): E78.5 - Hyperlipidemia, unspecified (2) Psychotic disorder Psychosis type: other Qualified Code(s): F28 - Other psychotic disorder not due to a substance or known physiological condition (3) Esophageal reflux Esophagitis presence: esophagitis presence not specified Qualified Code(s): K21.9 - Gastro-esophageal reflux disease without esophagitis (4) Chest pain Chest pain type: unspecified Qualified Code(s): R07.9 - Chest pain, unspecified (5) Hypertension Hypertension type: essential hypertension Qualified Code(s): I10 - Essential (primary) hypertension
[2019-06-22] MEDS: RISPERIDONE ODT 1MG PO SCH (21:11)
[2019-06-22] MEDS ORDERED: INSULIN GLARGINE SOLOSTAR 100 UNITS/ML 3 ML PEN SQ SCH (22:00)
[2019-06-23 08:05] LABS: Calcium 9.1 mg/dl (8.5-10.1); Creatinine Clr Calc Pharmacy 43.7 ml/min; Est GFR (Non-African American) 40.6
[2019-06-23] MEDS: POLYETHYLENE (MIRALAX) 17 GM PACK PO SCH (09:00)
[2019-06-23] MEDS: POTASSIUM CHLORIDE 20 MEQ TABCR PO SCH (09:00)
[2019-06-23] MEDS: ATORVASTATIN 40 MG TAB PO SCH (09:00)
[2019-06-23] MEDS: ISOSORBIDE MONO EXTENDED REL 60 MG TABCR PO SCH (09:00)
[2019-06-23] MEDS: METOPROLOL TARTRATE 25 MG TAB PO SCH (09:00)
[2019-06-23] MEDS: FOLIC ACID 1 MG TAB PO SCH (09:00)
[2019-06-23] MEDS: CYANOCOBALAMIN 500 MCG TABLET (VITAMIN B-12) PO SCH (09:01)
[2019-06-23] MEDS: THIAMINE HCL 100 MG TAB PO SCH (09:02)
[2019-06-23] MEDS: FAMOTIDINE 40 MG TABLET PO SCH (09:02)
[2019-06-23] MEDS: TOPIRAMATE 100 MG TAB PO SCH (09:02)
[2019-06-23] MEDS: RISPERIDONE ODT 1MG PO SCH (09:03)
[2019-06-23] MEDS: ASPIRIN 81 MG ECTAB PO SCH (09:03)
[2019-06-23] MEDS: PANTOprazole 40 MG TAB PO SCH (09:03)
[2019-06-23] MEDS: FEXOFENADINE 60 MG TAB PO SCH (09:03)
[2019-06-23] MEDS: DOCUSATE SODIUM/SENNA 50/8.6MG TAB PO SCH (09:03)
[2019-06-23] MEDS: TRIAMCINOLONE ACET 0.1% OINT 15 GM TUBE EXT SCH (09:04)
[2019-06-23] MEDS: INSULIN ASPART 100 UNITS/ML 3 ML PEN SQ SCH (09:07)
[2019-06-23 09:15] LABS: Basophils # (auto) 0.09 K/uL (0-0.2); Basophils % (auto) 1.2 %; Eosinophils # (auto) 0.14 K/uL (0-0.5); Eosinophils % (auto) 1.8 %; Hematocrit (blood only) 43.2 % (42-52); Hemoglobin 13.8 g/dL (14.0-18.0); Immature Granulocytes % (auto) 1.3 %; Lymphocytes # (auto) 1.45 K/uL (1.2-3.4); Lymphocytes % (auto) 18.6 %; Mean Corpuscular Hemoglobin 32.3 pg (25-34); Mean Corpuscular Hgb Conc 31.9 g/dL (32-36); Mean Corpuscular Volume 101.2 fL (80-100); Mean Platelet Volume 10.6 fL (7.4-10.4); Monocytes # (auto) 0.74 K/uL (0.11-0.59); Monocytes % (auto) 9.5 %; Neutrophils # (auto) 5.28 K/uL (1.4-6.5); Neutrophils % (auto) 67.6 %; Platelet Count 258 K/uL (130-400); RDW Coefficient of Variation 14.6 % (11.5-14.5); RDW Standard Deviation 53.1 fL (36.4-46.3); Red Blood Count 4.27 M/uL (4.7-6.1)
--- NOTE | 2019-06-23 10:50 | Psychiatric Progress Note ---
Date of Service June 23, 2019 Impression / Recommendations Impression 74 yo male with a history extensive ETOH use until 3 years ago, presented with delusional parasitosis but on further monitoring disorganized thoughts/grandiosity. He has 1 prior hospitalization that sounds consistent with a psychotic episode, likely self medicated periods of ho with EToh vs now additional cognitive issues related to cardiac status and prior EToh use. He appears less manic since last dose of Celexa 06/21. His psychosis is most likely related to an underlying bipolar disorder and he has had partial response to Risperdal. (1) Psychotic disorder: 06/22--The patient was admitted to the [facility] ([facility] health unit) on q15 min checks (behavioral with suicide precautions) for safety. The patient will participate in group, recreational, and milieu therapies and will be offered additional individual and family sessions as clinically appropriate. Risks/benefits/alternatives reviewed re: Risperdal and risks in elderly. He is currently pleased with the medication and agrees to increase to 1 mg BID. Confirmed that metabolic labs were drawn during medical admit 06/06/10 so UTD. 06/23--ongoing improvement, more redirectible around delusions, ho appears to be resolving, main concern is ability to tolerate family involvement in care as he is currently stating he won't return home. SW exploring options for personal care. (2) Status post coronary artery bypass graft: medicine consult with Dr. Bonner (3) Diabetic neuropathy: pharmacy consult for glycemic control, qac/hs blood checks (4) Code status needs review: patient was DNR/DNI on the medical floor. He voices that he continues to want this. I do believe he understands despite his psychosis. It is well documented during other admissions that he is DNR/DNI. He is not suicidal and staff will confirm his wishes as well during family meeting. (5) Congestive heart failure (CHF): 06/23--labs this am per Dr. Bonner, faith mendez, daily weights Inventory Assets Strengths: supportive family Needs: ongoing mood stabilization and reality focus Risk Factors Assessment Male: Yes : Yes Do You Have Access To A Gun?: No (patient not reliable, will confirm with family) Health Problems: Yes Substance Use Disorders: No Previous Attempt: No Previous Psychiatric Hospitalization: No Protective Factors Assessment : Yes Employed: No Supportive Family: Yes Interval History Chief Complaint "I don't know why my won't talk about the bugs". Review of Systems Sleep Information Total Hours of Sleep: 4.25 Sleep Comments: pt on q-15 minute checks Meal Information Percent Meal Consumed - Breakfast: 100 Percent Meal Consumed - Dinner: 100 Subjective Subjective Patient was seen & assessed and interval progress reviewed with treatment team. Has been religiously preoccupied in group and poor insight into appropriateness of some of his marital comments in the group setting. No agitation and perseverations have been redirectible. He continues to tell staff he has bugs and is pulling them out of his body but there is no evidence that he is picking at his healing excoriations. Very talkative but less pressured in interactions and cooperative with medications/labs. Dr. Bonner following. Physical Exam Psychiatric Orientation: alert Apperance: appropriately groomed Eye Contact: good eye contact Motor Behavior: steady gait and station and no abnormal motor movements Speech: normal rate/rhythm/volume of speech Affect: euthymic affect Mood: + anxious mood Thought Process: + perseveration Thought Content: + delusions; not paranoid Suicidal Thoughts: denies suicidal thoughts Homicidal Thoughts: denies homicidal thoughts Hallucinations: + visual hallucinations; no auditory hallucinations Cognition: attention grossly intact and language grossly intact Estimated Intelligence: consistent with education level Insight: + poor insight Judgement: + poor judgement Vital Signs (Past 24 Hours) Last Vital Signs Temp 37 C 06/23/19 06:59 Pulse 96 H 06/23/19 07:00 Resp 20 06/23/19 06:59 BP 89/59 L 06/23/19 07:00 A physical exam was performed on the medical floor by Dr. Bonner for the purposes of medical clearance. I accept that physical as correct and adequate for the purposes of the inpatient physical exam. Results & Data Laboratory Results Laboratory Results - last 24 hr 06/22/19 06/22/19 06/22/19 12:30 17:21 21:00 WBC RBC Hgb Hct MCV MCH MCHC RDW Std Deviation RDW Coeff of Gissel Plt Count MPV Immature Gran % (Auto) Neut % (Auto) Lymph % (Auto) [facility] % (Auto) Eos % (Auto) Baso % (Auto) Immature Gran # (Auto) Neut # (Auto) Lymph # (Auto) [facility] # (Auto) Eos # (Auto) Baso # (Auto) Sodium Potassium Chloride Carbon Dioxide Anion Gap BUN Creatinine Est Cr Clr Drug Dosing Est GFR ( Amer) Est GFR (Non-Af Amer) BUN/Creatinine Ratio Glucose POC Glucose 143 H 118 H 184 H Calcium 06/23/19 06/23/19 06/23/19 07:17 07:18 08:29 WBC 7.80 RBC 4.27 L Hgb 13.8 L Hct 43.2 MCV 101.2 H MCH 32.3 MCHC 31.9 L RDW Std Deviation 53.1 H RDW Coeff of Gissel 14.6 H Plt Count 258 MPV 10.6 H Immature Gran % (Auto) 1.3 Neut % (Auto) 67.6 Lymph % (Auto) 18.6 [facility] % (Auto) 9.5 Eos % (Auto) 1.8 Baso % (Auto) 1.2 Immature Gran # (Auto) 0.10 H Neut # (Auto) 5.28 Lymph # (Auto) 1.45 [facility] # (Auto) 0.74 H Eos # (Auto) 0.14 Baso # (Auto) 0.09 Sodium 138 Potassium 4.0 Chloride 108 H Carbon Dioxide 22 Anion Gap 8.0 BUN 38 H Creatinine 1.65 H Est Cr Clr Drug Dosing 43.7 Est GFR ( Amer) 47.0 Est GFR (Non-Af Amer) 40.6 BUN/Creatinine Ratio 23.0 H Glucose 168 H POC Glucose 160 H Calcium 9.1 Current Inpatient Medications Current Inpatient Medications: Current Inpatient Medications Acetaminophen (Tylenol) 1,000 mg PO Q8H PRN PRN Reason: Pain Stop: 07/21/19 21:06 Al Hydrox/Mg Hydrox/Simethicone (Maalox) 30 ml PO Q4H PRN PRN Reason: GI Upset Stop: 07/21/19 21:04 Aspirin (Ecotrin Ectab) 81 mg PO DAILY [facility] Stop: 07/22/19 08:59 Last Admin: 06/23/19 09:03 Dose: 81 mg Documented by: Atorvastatin Calcium (Lipitor) 80 mg PO QAM [facility] Stop: 07/22/19 08:59 Last Admin: 06/23/19 09:00 Dose: 80 mg Documented by: Bismuth Subsalicylate (Kaopectate) 15 ml PO PRN PRN PRN Reason: Loose Stool Stop: 07/21/19 21:04 Cyanocobalamin (Vitamin B-12) 1,000 mcg PO DAILY [facility] Stop: 07/22/19 08:59 Last Admin: 06/23/19 09:01 Dose: 1,000 mcg Documented by: Dextrose (Dextrose 50%) 25 - 50 ml IV UD PRN; Protocol PRN Reason: Hypoglycemia Protocol Stop: 07/22/19 00:14 Famotidine (Pepcid) 40 mg PO [facility] Stop: 07/22/19 08:59 Last Admin: 06/23/19 09:02 Dose: 40 mg Documented by: Fexofenadine HCl (Nikky) 60 mg PO BID [facility] Stop: 07/22/19 08:59 Last Admin: 06/23/19 09:03 Dose: 60 mg Documented by: Folic Acid (Folvite) 1 mg PO [facility] Stop: 07/22/19 08:59 Last Admin: 06/23/19 09:00 Dose: 1 mg Documented by: Furosemide (Lasix) 40 mg PO [facility] Stop: 07/22/19 08:59 Last Admin: 06/22/19 08:34 Dose: 40 mg Documented by: Glucagon (Glucagen) 1 mg IM UD PRN; Protocol PRN Reason: Hypoglycemia Protocol Stop: 07/22/19 00:14 Glucose (Glucose 40%) 15 - 30 gm PO UD PRN; Protocol PRN Reason: Hypoglycemia Protocol Stop: 07/22/19 00:14 Glucose (Dex4 Glucose) 4 - 8 tabs PO UD PRN; Protocol PRN Reason: Hypoglycemia Protocol Stop: 07/22/19 00:14 Insulin Aspart (Novolog Flexpen) 0 units SQ ACHS [facility]; Protocol Stop: 07/22/19 07:59 Last Admin: 06/23/19 09:07 Dose: 11 units Documented by: Insulin Glargine (Lantus Solostar Pen) 0 units SQ HS [facility]; Protocol Stop: 07/21/19 21:59 Last Admin: 06/22/19 21:47 Dose: 30 units Documented by: Isosorbide Mononitrate (Imdur Extended Rel) 60 mg PO [facility] Stop: 07/22/19 08:59 Last Admin: 06/23/19 09:00 Dose: 60 mg Documented by: Magnesium Hydroxide (Milk Of Magnesia) 30 ml PO DAILY PRN PRN Reason: Constipation Stop: 07/21/19 21:04 Metoprolol Tartrate (Lopressor) 75 mg PO BID [facility] Stop: 07/22/19 08:59 Last Admin: 06/23/19 09:00 Dose: 75 mg Documented by: Miscellaneous (Carbohydrates For Hypoglycemia) 15 - 30 gm PO UD PRN PRN Reason: Hypoglycemia Treatment Stop: 07/22/19 00:14 Miscellaneous Information (Consult Glycemic Management Pharmacy) 1 ea N/A UD PRN PRN Reason: Consult Stop: 07/21/19 21:58 Nitroglycerin (Nitrostat) 0.4 mg SL Q5M PRN PRN Reason: Chest Pain Stop: 07/21/19 21:06 Pantoprazole Sodium (Protonix) 40 mg PO DAILY [facility] Stop: 07/22/19 08:59 Last Admin: 06/23/19 09:03 Dose: 40 mg Documented by: Polyethylene Glycol (Miralax Powder Packet) 17 gm PO QAM [facility] Stop: 07/22/19 08:59 Last Admin: 06/23/19 09:00 Dose: 17 gm Documented by: Potassium Chloride (Klor-Con M20) 20 meq PO QAM [facility] Stop: 07/22/19 08:59 Last Admin: 06/23/19 09:00 Dose: 20 meq Documented by: Risperidone (Risperdal M) 1 mg PO BID [facility] Stop: 07/22/19 20:59 Last Admin: 06/23/19 09:03 Dose: 1 mg Documented by: Senna/Docusate Sodium (Senokot S) 1 tab PO QAM [facility] Stop: 07/22/19 08:59 Last Admin: 06/23/19 09:03 Dose: 1 tab Documented by: Sodium Chloride (Blairs Nasal) 1 - 2 sprays NA PRN PRN PRN Reason: Nasal Dryness/Congestion Stop: 07/21/19 21:04 Thiamine HCl (Vitamin B-1) 200 mg PO BID [facility] Stop: 07/22/19 08:59 Last Admin: 06/23/19 09:02 Dose: 200 mg Documented by: Topiramate (Topamax) 100 mg PO BID [facility] Stop: 07/22/19 08:59 Last Admin: 06/23/19 09:02 Dose: 100 mg Documented by: Tramadol HCl (Ultram) 50 mg PO Q6H PRN PRN Reason: pain Stop: 07/21/19 21:12 Triamcinolone Acetonide (Kenalog 0.1%) 1 appln EXT TID NIKOLAI Stop: 07/22/19 08:59 Last Admin: 06/23/19 09:04 Dose: 1 appln Documented by: Post Discharge Appointments Primary Care Physician Name Of Family Doctor: DOUG Perez (1) Psychotic disorder Psychosis type: other Qualified Code(s): F28 - Other psychotic disorder not due to a substance or known physiological condition
[2019-06-23] MEDS ORDERED: LACTATED RINGER'S 1,000 ML IV ONE (12:42)
[2019-06-23 13:05] LABS: Basophils # (auto) 0.02 K/uL (0-0.2); Basophils % (auto) 0.4 %; Eosinophils # (auto) 0.05 K/uL (0-0.5); Eosinophils % (auto) 1.1 %; Hematocrit (blood only) 35.1 % (42-52); Hemoglobin 11.4 g/dL (14.0-18.0); Immature Granulocytes # (auto) 0.04 K/uL (0.00-0.02); Immature Granulocytes % (auto) 0.8 %; Lymphocytes # (auto) 0.89 K/uL (1.2-3.4); Lymphocytes % (auto) 18.7 %; Mean Corpuscular Hemoglobin 31.6 pg (25-34); Mean Corpuscular Volume 97.2 fL (80-100); Mean Platelet Volume 9.8 fL (7.4-10.4); Monocytes # (auto) 0.54 K/uL (0.11-0.59); Monocytes % (auto) 11.3 %; Neutrophils # (auto) 3.22 K/uL (1.4-6.5); Neutrophils % (auto) 67.7 %; Platelet Count 186 K/uL (130-400); RDW Coefficient of Variation 14.5 % (11.5-14.5); RDW Standard Deviation 51.4 fL (36.4-46.3); Red Blood Count 3.61 M/uL (4.7-6.1); White Blood Count 4.76 K/uL (4.8-10.8)
[2019-06-23 13:07] LABS: Mean Corpuscular Hgb Conc 32.5 g/dL (32-36)
[2019-06-23 13:10] VITALS: BP 101/63; PULSE 79
[2019-06-23 13:22] LABS: BUN Creatinine Ratio 26.7 (10-20); Blood Urea Nitrogen 41 mg/dl (7-18); Calcium 8.9 mg/dl (8.5-10.1); Carbon Dioxide 22 mmol/L (21-32); Chloride 111 mmol/L (98-107); Creatinine Clr Calc Pharmacy 46.9 ml/min; Est GFR (African American) 51.1; Est GFR (Non-African American) 44.1; Glucose 79 mg/dl (70-99); Potassium 4.4 mmol/L (3.5-5.1); Sodium 138 mmol/L (136-145)
[2019-06-23 13:27] LABS: Alanine Aminotransferase 37 U/L (12-78); Albumin Globulin Ratio 0.8 (0.9-2); Alkaline Phosphatase 111 U/L (45-117); Aspartate Aminotransferase 23 U/L (15-37); Bilirubin,Total 0.4 mg/dl (0.2-1); Globulin 3.6 gm/dl (2.5-4.0); Total Protein 6.6 gm/dl (6.4-8.2); Troponin I < 0.015 ng/ml (0-0.045)
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
== END 2019-06-23 13:40 | disposition short-term general hospital (02) | DRG 885 ==
LOC: 3S 21:50

== ENCOUNTER 2019-06-23 13:10 | Inpatient (IN) ==
[2019-06-23] MEDS ORDERED: ACETAMINOPHEN 325 MG TAB PO PRN (13:55)
[2019-06-23] MEDS ORDERED: MULTI-VITAMIN INFUSION 10 ML, THIAMINE HCL 100 MG, FOLIC ACID 1 MG in SODIUM CHLORIDE 0... IV ONE (14:30)
--- NOTE | 2019-06-23 15:50 | Magnetic Resonance Report ---
MR cervical spine wo con HISTORY: Peripheral neuropathy. Pain. left side numbness TECHNIQUE: Multiplanar multisequence MRI of the cervical spine was performed without the use of contr ast. COMPARISON STUDY: 01/08/2008 FINDINGS: Normal signal characteristics of the vertebral bodies. Mild degenerative disc changes throu ghout. Normal signal characteristics of the cervical cord. C2-C3: Minimal osteophytic narrowing left neural foramina. No evidence of disc herniation. C3-C4: Mild broad-based bulging disc. This is slightly diminished in prominence of the prior study. C 4-C5: Mild osteophytic narrowing of the neural foramina unchanged. Moderate osteophytic narrowing of the right and to a lesser extent left neural foramina. This is similar as compared to the prior study . C5-C6: Osteophytic narrowing of the right and to a lesser extent left neural foramina slightly progre ssive from the prior study. C6-C7: Significant osteophytic narrowing of the left and to a lesser extent right neural foramina. Th is is minimally progressive from the prior study. C7-T1: Mild central disc herniation. This is in contact with but showed no significant deformity of t he cervical cord. This is mildly progressive from the prior study. IMPRESSION: 1. Moderate to rather significant osteophytic narrowing of the bulk of the neural foramina bilaterall y. 2. All findings are slightly progressive and/or stable compared to the prior exam. 3. Interval development of a mild broad-based disc herniation C6-C7 showing contact with but no defor mity of the cervical cord. ACT 112: Negative or not required by law. The above report was generated using voice recognition software. It may contain grammatical, syntax or spelling errors. Electronically signed by: Davy Hamm M.D. 06/23/2019 3:48 PM
--- NOTE | 2019-06-23 16:00 | CT Scan Report ---
CT abd pelvis wo con CT DOSE: 833.85 mGy.cm HISTORY: Flank pain left flank pain TECHNIQUE: Multiaxial CT images of the abdomen and pelvis were performed without contrast. A dose lo wering technique was utilized adhering to the principles of ALARA. COMPARISON STUDY: None. FINDINGS: Lung bases are grossly clear. Interval development of small pericardial effusion. Maximum t hickness is 1.1 cm. Liver spleen and pancreas appear unremarkable. Kidneys negative for hydronephrosis. Small nonobstruct ing left renal cortical calcification. Bowel pattern overall is again is unremarkable. There is a moderate amount of fecal material througho ut the colon as well as rectum. There are no obstructive characteristics. Bladder is midline. IMPRESSION: 1. No acute process in the abdomen or pelvis. 2. Nonobstructive urinary tract. 3. Moderate increase in colonic fecal load suggesting a component of fecal stasis. 4. Small pericardial effusion ACT 112: Negative or not required by law. The above report was generated using voice recognition software. It may contain grammatical, syntax or spelling errors. Electronically signed by: Davy Hamm M.D. 06/23/2019 3:59 PM
[2019-06-23] MEDS ORDERED: CARBOHYDRATES FOR HYPOGLYCEMIA PO PRN (17:45)
[2019-06-23] MEDS ORDERED: DEXTROSE 50% 50 ML SYRINGE IV PRN (17:45)
[2019-06-23] MEDS ORDERED: GLUCOSE 10 TABS/TUBE PO PRN (17:45)
[2019-06-23] MEDS ORDERED: GLUCOSE 40% GEL 15 GM TUBE PO PRN (17:45)
[2019-06-23] MEDS ORDERED: GLUCAGON FOR INJ 1 MG VIAL IM PRN (17:45)
--- NOTE | 2019-06-23 19:04 | History & Physical Report ---
Date of Service June 23, 2019 Assessment & Plan (1) Conversion disorder: Likely cause for fainting episode / Similar episode during previous admission with loss of control over all four limbs that resolved in about an hour. CTA head and neck, CT head all negative, CT spine was negative for acute. MRI brain 06/14 with Punctate 3 mm periventricular T2 hyperintense focus within the right parietal lobe indicating a tiny subacute infarct - unlikely to have been a factor. Patient does have some foraminal narrowing and a bulging disk on MRI cervical spine without deformity of spine - will consult ortho Ammonia was wnl, troponin was wnl - will recheck EKG unremarkable Consulted neurology - no further workup beyond MRI of C spine Psych consulted (2) Psychotic disorder: Management per psychiatry (3) Chronic diastolic CHF (congestive heart failure): Held furosemide for JUANCARLOS today - resume tomorrow if resolved held isosorbide for hypotension Continue metoprolol (4) Vitamin B12 deficiency: Continue supplementation (5) Stage III chronic kidney disease: avoid nephrotoxins where possible CMP am (6) CAD in [place] artery: Continue ASA, isosorbide held for hyptotension, continue statin, metoprolol (7) Thiamine deficiency: Continue supplementation (8) Hyperlipidemia: Continue statin (9) Diabetic peripheral neuropathy: (10) Hypertension: Isosorbide held for hypotension, continue metoprolol (11) JUANCARLOS (acute kidney injury): Improving from this morning - Creat 1.6 Hypotensive, labs with apparent dehydration Held furosemide - 1L LR bolus and then banana bag Careful with fluid balance he does not become overloaded (12) Diabetes mellitus, type 2: consult glycemic pharmacist (13) Alcohol abuse: thiamine supplementation Last drink was prior to last admission so out of window for withdrawal DVT proph: SCD History of Present Illness Per H&P 06/14 - 74yo M w/ hx of CAD s/p CABG on 05/23/2019 at [facility] who presents with delusional disorder. He was admitted to the hospital from 06/05/2019 to 06/09/2019 with CHF exacerbation. His family reports that he has been taking his Lasix as prescribed; however, he has had less and less urine output per his family. As importantly, they report that he has had increasing delusions since February of this year. Per family, this has never been an issue. In , he was holding down a job and was totally functional. In March, they started noting delusions, and they report it has been getting worse since that time. In the ED, his reported that she no longer feels safe at home. He perseverates on these delusions and if he feels she is contradicting him in any fashion, he will snap at her. This is the main reason they have brought him to the Emergency Department. They deny any inciting event such as a car accident, concussion, emotional trauma, or other event that could have triggered this issue. Today 06/23 patient was seen in consult on BHU. He began to complain of left side numbness. He felt he was having a stroke. He also complained of left chest pain, left flank pain, and loss of vision left side. As we talked his reports of his symptoms became increasingly more acute until he said he was unable to move at all including to lay down. His eyes then rolled back and he fell over on the bed. A code purple was called. Patient maintained a SR and pulse. He had normal BP and VS during this episode. No loss of control of bowel or bladder. He was then transferred to PCU and readmitted to the hospital. Upon reassessment later in the afternoon he was awake and alert, reporting that he had had a stroke and went to [facility]. He was in no distress but continued to complain of left sided numbness and that his "kidney hurt" on the left side. Primary Care Provider: Fox Moran MD Allergies Allergy/AdvReac Type Severity Reaction Status Date / Time morphine AdvReac Severe "STOPS MY Verified 06/14/19 08:08 HEART" hydromorphone [From Dilaudid] AdvReac Intermediate unresponsiv Verified 06/14/19 08:08 eness trazodone AdvReac Intermediate GI UPSET Verified 06/14/19 08:08 diazepam AdvReac Mild HALLUCINATE Verified 06/14/19 08:08 S propoxyphene AdvReac Mild DRUG Verified 06/14/19 08:08 INTOLERANCE Home Medications Home Medications Medication Instructions Recorded Confirmed Type pen needle, diabetic 31 gauge x #30 ea 12/03/18 06/14/19 Rx 5/16" nitroglycerin 0.4 mg sublingual 0.4 mg SL Q5M PRN #1 tab 02/05/19 06/23/19 History tablet metoprolol tartrate 75 mg tablet 75 mg PO BID #60 tab 05/30/19 06/23/19 Rx acetaminophen [Tylenol Extra 1,000 mg PO Q8H PRN 06/05/19 06/23/19 History Strength] polyethylene glycol 3350 [Miralax] 17 gm PO QAM 06/05/19 06/23/19 History sennosides-docusate sodium [Senna 1 tab PO QAM 06/05/19 06/23/19 History with Docusate Sodium] topiramate [Topamax] 100 mg PO BID 06/05/19 06/23/19 History tramadol [Ultram] 50 mg PO Q6H PRN 06/05/19 06/23/19 History atorvastatin 80 mg tablet 80 mg PO QAM #90 tab 06/12/19 06/23/19 Rx isosorbide mononitrate 60 mg 60 mg PO QAM #90 tab 06/12/19 06/23/19 Rx tablet,extended release 24 hr potassium chloride 20 mEq 20 meq PO QAM #90 tab 06/12/19 06/23/19 Rx tablet,extended release pantoprazole 40 mg PO DAILY 06/14/19 06/23/19 History aspirin [Ecotrin Low Strength] 81 mg PO DAILY #30 tab 06/21/19 06/23/19 Rx cyanocobalamin (vitamin B-12) 1,000 mcg PO DAILY #30 cap 06/21/19 06/23/19 Rx fexofenadine 60 mg PO BID #60 tab 06/21/19 06/23/19 Rx folic acid 1 mg PO QAM #30 tab 06/21/19 06/23/19 Rx thiamine HCl (vitamin B1) [Vitamin 200 mg PO BID #120 tab 06/21/19 06/23/19 Rx B-1] triamcinolone acetonide 1 applic EXT TID 7 Days #30 gm 06/21/19 06/23/19 Rx famotidine 40 mg PO QAM 1 Days #1 tab 06/23/19 06/23/19 Rx insulin glargine [Lantus Solostar 0 unit SUBCUT HS 1 Days #1 ml 06/23/19 06/23/19 Rx U-100 Insulin] risperidone 1 mg PO BID #1 tab 06/23/19 06/23/19 Rx Past Med/Surg History Medical History Atypical chest pain (Resolved) Benign colonic polyp (Chronic) CAD in [place] artery Cellulitis Cognitive disorder (Chronic) Controlled type 2 diabetes mellitus with neurologic complication, with long-term current use of insulin (Resolved) Conversion disorder (Resolved) Diabetes mellitus, type 2 Diabetic peripheral neuropathy (Chronic) Dyslipidemia (Resolved) Esophageal reflux (Chronic) History of colon polyps (Chronic) History of tobacco use (Resolved) Hyperlipidemia (Chronic) Hypertension Kidney stone on right side (Resolved) Migraines, neuralgic Myocardial Infarction (Resolved) 2004--follows with Dr. Mejia Nephrolithiasis (Resolved) Neurological deficit present (Resolved) Neuropathy (Chronic) Osteoarthritis (Chronic) Raynauds phenomenon (Chronic) Stage III chronic kidney disease Tubular adenoma of colon (Resolved) Vitamin D deficiency (Chronic) Wound of left foot (Resolved) Surgical History History of arthroscopy of left knee (Resolved) History of cardiac cath (Resolved) x3-4, last 2014 History of carpal tunnel release of both wrists (Resolved) History of colonoscopy (Resolved) History of heart artery stent (Resolved) x1--1999 History of lithotripsy (Resolved) x2 History of lumbar discectomy (Resolved) x2 History of open reduction and internal fixation (ORIF) procedure (Resolved) left ankle--hardware in place History of right cataract extraction (Resolved) History of tonsillectomy and adenoidectomy (Resolved) 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[facility] - 05/2019 Status post uvulopalatopharyngoplasty (Resolved) Social History Preferred Language: [place] Korean Communication Ability: Effective Visual Impairment: No Limitations Patient Ombudsperson Required: No Beliefs That Will Affect Care: None marital status: marital status details: 3 children Current Living Situation: Spouse current occupational status: retired Other Information That Helps Us Care for You: No other: 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 ; Smoking End Date: 2016 ; Second Hand Exposure: No ; Hx Alcohol Use: No Hx Substance Use: No Physical Exam Physical Exam: General: no distress Eyes: normal inspection, PERLL Respiratory: chest non tender, clear to auscultation, normal breath sounds, no respiratory distress, no accessory muscle use Cardiac: regular rate and rhythm, no rub or gallop, no murmur, no edema, no jvd, chest pain reproducible to palpation GI/: active bowel sounds, no abd pain or tenderness, soft, non distended Extremities: normal range of motion, normal strength, non tender Neuro: CN II - XII intact, no loss of control over speech during fainting episode, Psych: alert and oriented x 3, complaining of worms Skin: normal color, dry Results & Data Vital Signs (Past 12 Hours) Vital Signs Temp Pulse Pulse Resp BP Pulse Ox 06/23/19 16:32 36.4 C L 68 19 106/56 L 98 06/23/19 14:00 36.3 C L 71 71 16 108/65 98 PG Care Time/CCT Total # of Minutes Spent Total Time Spent with Patient: Total time spent is greater than 50% in coordination of care (as documented) at patient's floor/unit and/or counseling patient: (1) Psychotic disorder Psychosis type: other Qualified Code(s): F28 - Other psychotic disorder not due to a substance or known physiological condition (2) Hyperlipidemia Hyperlipidemia type: unspecified Qualified Code(s): E78.5 - Hyperlipidemia, unspecified (3) Hypertension Hypertension type: essential hypertension Qualified Code(s): I10 - Essential (primary) hypertension (4) Diabetes mellitus, type 2 Diabetes mellitus residential insulin use: with residential use Diabetes mellitus complication status: with neurologic complications Diabetes mellitus complication detail: with polyneuropathy Qualified Code(s): E11.42 - Type 2 diabetes mellitus with diabetic polyneuropathy; Z79.4 - skilled nursing (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
[2019-06-23] MEDS ORDERED: ACETAMINOPHEN 500 MG TAB PO PRN (19:13)
[2019-06-23] MEDS ORDERED: TRAMADOL HCL 50 MG TABLET PO PRN (19:13)
[2019-06-23] MEDS ORDERED: NITROGLYCERIN SL 0.4 MG/TAB TAB SL PRN (19:13)
[2019-06-23] MEDS ORDERED: PHARMACY GLYCEMIC MGMT CONSULT PRN (19:50)
--- NOTE | 2019-06-23 20:37 | Neurology Consultation ---
Date of Consultation June 23, 2019 Assessment & Plan (1) Alcohol abuse: (2) Diabetes mellitus, type 2: (3) Thiamine deficiency: (4) Vitamin B12 deficiency: (5) Stage III chronic kidney disease: (6) Psychotic disorder: (7) Conversion disorder: Tian Blanchard is a 74 yo man w/ PMH of DM c/b neuropathy, CHF, CABG, B12 deficiency, CKD III, thiamine deficiency, folate deficiency, psychosis NOS, HLD, h/o alcohol abuse and suspected conversion disorder whom neurology is consulted on for episode of loss of sensation/movement in all 4 extremities followed by syncope/LoC that occurred on 06/23/19. # Transient episode of quadriplegia with LoC: given previously negative workup with CT/CTA/MRI brain, and recurrent similar episode with relatively unremarkable workup, suspect that he may have some underlying neuropathy and radiculopathy that causes him pain/symptoms, and that given his current psychosis, he may have additional embellishment of his symptoms (possible conversion disorder vs Wernicke-Korsakoff given h/o alcohol abuse and multiple B vitamin deficiencies). There are no signs of basilar artery stenosis or ectasia on prior examination less than a week ago that could cause such symptoms. Events do not sound like seizures in semiology. He also had a recent EEG on 06/16/19 that was unremarkable. - no further neurological workup needed at this time - his MRI C-spine results suggest that he would benefit from PT eval and likely ongoing PT - prn treatment of pain to ensure compliance with PT - continue behavioral treatment plan as per psych - would ensure that he has received IM B12 injection, as well as continue thiamine/folate/MV indefinitely Thank you for this interesting consult. Please call or text with questions. We will sign off at this time. History of Present Illness Attending Physician: Xavier Aparicio MD History of Present Illness Tian Blanchard is a 74 yo man w/ PMH of DM c/b neuropathy, CHF, CABG, B12 deficiency, CKD III, thiamine deficiency, folate deficiency, psychosis NOS, HLD, h/o alcohol abuse and suspected conversion disorder whom neurology is consulted on for episode of loss of sensation/movement in all 4 extremities followed by syncope/LoC that occurred on 06/23/19. Per record review, he had started to c/o L-sided numbness this morning and was c/f possible stroke. He also c/o left chest pain, left flank pain and loss of vision in the left eye. He was talking to the medicine PA at the time and reported that his symptoms were progressing until the point where he couldn't move any of his extremities. His eyes rolled back and he fell over on the bed. A code purple was called where he was noted to be in NSR with normal HR, BP and vitals. There was no loss of bowel/bladder, tongue biting or convulsive movements observed. He was seen later in the day by staff whom he reported to them that he had had a stroke and gone to [facility]. Labwork around the time of his event was notable for glucose 76-79 (baseline appears to be in the 110s or higher), Cr 1.54, troponin negative, NH3 22.1 (WNL). He had a recent workup for his vague neurological complaitns that was notable for B12 219 (low), thiamine <6, folate 4.16 (low), RAÚL negative, RPR negative, negative Lyme/HCV/HIV. He had an MRI brain on 06/14/19 in the setting of AMS that on independent review showed a punctuate area of restricted diffusion along the right lateral ventricle with no clear ADC correlate; no significant SVID was noted at that time. He had a LP on 06/06/19 that was unsuccessful and discontinued at the patient's request. CT of the cervical spine on 06/17/19 in the setting of similar event at that time showed mild multilevel degenerative changes with multilevel neuroforaminal narrowing noted; no high grade spinal stenosis noted. CTA head and neck on that date was notable for no high grade stenosis, LVO or aneurysm, mild atherosclerosis of bilateral carotid bifurcations and no CVST. MRI of the C-spine on 06/23/19 (independent review) showed multilevel degenerative changes with mild cervical stenosis at C6/C7 and multilevel moderate bilateral neuroforaminal stenosis. CT A/P was notable for moderate stool burden, small pericardial effusion and unremarkable kidney/liver/spleen. On examination today, he reports that he has ongoing left sided numbness and significant pain whenever he moves his arms, especially in his shoulders. There was a significant component of embellishment on exam as noted below in the exam section. He could not describe in any detail what had happened earlier today and towards the end of evaluation, began to be tangential talking about things that happened many years ago and that he has worms coming out of his body that he needs to wash himself to get rid of. Allergies Allergy/AdvReac Type Severity Reaction Status Date / Time morphine AdvReac Severe "STOPS MY Verified 06/14/19 08:08 HEART" hydromorphone [From Dilaudid] AdvReac Intermediate unresponsiv Verified 06/14/19 08:08 eness trazodone AdvReac Intermediate GI UPSET Verified 06/14/19 08:08 diazepam AdvReac Mild HALLUCINATE Verified 06/14/19 08:08 S propoxyphene AdvReac Mild DRUG Verified 06/14/19 08:08 INTOLERANCE Home Medications Home Medications Medication Instructions Recorded Confirmed Type pen needle, diabetic 31 gauge x #30 ea 12/03/18 06/14/19 Rx 5/16" nitroglycerin 0.4 mg sublingual 0.4 mg SL Q5M PRN #1 tab 02/05/19 06/23/19 History tablet metoprolol tartrate 75 mg tablet 75 mg PO BID #60 tab 05/30/19 06/23/19 Rx acetaminophen [Tylenol Extra 1,000 mg PO Q8H PRN 06/05/19 06/23/19 History Strength] polyethylene glycol 3350 [Miralax] 17 gm PO QAM 06/05/19 06/23/19 History sennosides-docusate sodium [Senna 1 tab PO QAM 06/05/19 06/23/19 History with Docusate Sodium] topiramate [Topamax] 100 mg PO BID 06/05/19 06/23/19 History tramadol [Ultram] 50 mg PO Q6H PRN 06/05/19 06/23/19 History atorvastatin 80 mg tablet 80 mg PO QAM #90 tab 06/12/19 06/23/19 Rx isosorbide mononitrate 60 mg 60 mg PO QAM #90 tab 06/12/19 06/23/19 Rx tablet,extended release 24 hr potassium chloride 20 mEq 20 meq PO QAM #90 tab 06/12/19 06/23/19 Rx tablet,extended release pantoprazole 40 mg PO DAILY 06/14/19 06/23/19 History aspirin [Ecotrin Low Strength] 81 mg PO DAILY #30 tab 06/21/19 06/23/19 Rx cyanocobalamin (vitamin B-12) 1,000 mcg PO DAILY #30 cap 06/21/19 06/23/19 Rx fexofenadine 60 mg PO BID #60 tab 06/21/19 06/23/19 Rx folic acid 1 mg PO QAM #30 tab 06/21/19 06/23/19 Rx thiamine HCl (vitamin B1) [Vitamin 200 mg PO BID #120 tab 06/21/19 06/23/19 Rx B-1] triamcinolone acetonide 1 applic EXT TID 7 Days #30 gm 06/21/19 06/23/19 Rx famotidine 40 mg PO QAM 1 Days #1 tab 06/23/19 06/23/19 Rx insulin glargine [Lantus Solostar 0 unit SUBCUT HS 1 Days #1 ml 06/23/19 06/23/19 Rx U-100 Insulin] risperidone 1 mg PO BID #1 tab 06/23/19 06/23/19 Rx Patient History Medical History (Updated 06/23/19 @ 18:59 by GABBIE Arce) Atypical chest pain (Resolved) Benign colonic polyp (Chronic) CAD in [place] artery Cellulitis Cognitive disorder (Chronic) Controlled type 2 diabetes mellitus with neurologic complication, with long-term current use of insulin (Resolved) Conversion disorder (Resolved) Diabetes mellitus, type 2 Diabetic peripheral neuropathy (Chronic) Dyslipidemia (Resolved) Esophageal reflux (Chronic) History of colon polyps (Chronic) History of tobacco use (Resolved) Hyperlipidemia (Chronic) Hypertension Kidney stone on right side (Resolved) Migraines, neuralgic Myocardial Infarction (Resolved) 2004--follows with Dr. Mejia Nephrolithiasis (Resolved) Neurological deficit present (Resolved) Neuropathy (Chronic) Osteoarthritis (Chronic) Raynauds phenomenon (Chronic) Stage III chronic kidney disease Tubular adenoma of colon (Resolved) Vitamin D deficiency (Chronic) Wound of left foot (Resolved) Surgical History History of arthroscopy of left knee (Resolved) History of cardiac cath (Resolved) x3-4, last 2014 History of carpal tunnel release of both wrists (Resolved) History of colonoscopy (Resolved) History of heart artery stent (Resolved) x1--1999 History of lithotripsy (Resolved) x2 History of lumbar discectomy (Resolved) x2 History of open reduction and internal fixation (ORIF) procedure (Resolved) left ankle--hardware in place History of right cataract extraction (Resolved) History of tonsillectomy and adenoidectomy (Resolved) 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 ; Smoking End Date: 2016 ; Second Hand Exposure: No ; Hx Alcohol Use: No Hx Substance Use: No Review of Systems Review of Systems: 14 point review of systems completed and negative except as in HPI. Physical Exam Physical Exam: General Exam: GEN: NAD, sitting in bed. HEENT: No conjunctival injection, no rhinorrhea. CV: RRR, no peripheral edema PULM: Nonlabored respirations on room air. Neuro Exam: MS: Awake and Alert. Oriented to person, place, and date. Speech fluent and appropriate without dysarthria or paraphasic errors. Language intact including naming, comprehension, repetition. Cognition and memory grossly intact. Slightly inattentive. No neglect. CN: +Blink to threat bilaterally despite reporting no vision in left eye. No optic disc edema on fundoscopic exam. PERRLA OU. EOMI without nystagmus. Facial sensation intact to LT though reports diminished in left face. Facial muscles full and symmetric. Hearing intact to conversation. Uvula midline with symmetric palatal elevation. Shoulder shrug normal though reported severe pain on testing. Tongue midline. MOTOR: Normal bulk and tone. No pronator drift. Moved RUE/RLE antigravity without drift in all muscle groups tested. In LUE/LLE, strength was 5-/5 in all muscle groups tested with giveaway weakness noted, as well as leg would drift to the bed without touching his other leg when asked to hold it up. Additionally, he was able to hold his left leg off of bed for >10 seconds but reported that he was weak in that limb. REFLEXES: 1+ at biceps, triceps, brachioradialis, patella and absent Achilles bilaterally. Flexor plantar responses bilaterally. SENSORY: Intact to LT without extinction to double simultaneous stimuli but reported decreased in LUE/LLE. Vibration and temperature intact throughout with no reported difference between sides. COORDINATION: No dysmetria or ataxia on [id number] bilaterally. Normal Bryson bilaterally. GAIT: Deferred given physical status/fall risk. Results & Data Vital Signs (Past 12 Hours) Vital Signs Temp Pulse Pulse Resp BP Pulse Ox 06/23/19 19:34 36.4 C L 73 17 114/65 100 06/23/19 16:32 36.4 C L 68 19 106/56 L 98 06/23/19 14:00 36.3 C L 71 71 16 108/65 98 PG Care Time/CCT Total # of Minutes Spent Total Time Spent with Patient: Total time spent is greater than 50% in coordination of care (as documented) at patient's floor/unit and/or counseling patient: (1) Diabetes mellitus, type 2 Diabetes mellitus detention insulin use: with exterminator helper use Diabetes mellitus complication status: with neurologic complications Diabetes mellitus complication detail: with polyneuropathy Qualified Code(s): E11.42 - Type 2 diabetes mellitus with diabetic polyneuropathy; 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
[2019-06-23] MEDS: INSULIN ASPART 100 UNITS/ML 3 ML PEN SC SCH (21:38)
[2019-06-23] MEDS: INSULIN GLARGINE SOLOSTAR 100 UNITS/ML 3 ML PEN SC SCH (21:39)
[2019-06-23] MEDS: METOPROLOL TARTRATE 25 MG TAB PO SCH (21:41)
[2019-06-23] MEDS: TRIAMCINOLONE ACET 0.1% OINT 15 GM TUBE EXT SCH (21:44)
[2019-06-23] MEDS: RISPERIDONE ODT 1MG PO SCH (21:44)
[2019-06-23] MEDS: TOPIRAMATE 100 MG TAB PO SCH (21:45)
[2019-06-23] MEDS: FEXOFENADINE 60 MG TAB PO SCH (21:45)
[2019-06-23] MEDS: THIAMINE HCL 100 MG TAB PO SCH (21:46)
[2019-06-24] MEDS: INSULIN ASPART 100 UNITS/ML 3 ML PEN SC SCH ×6 (00:15→20:28)
[2019-06-24 06:37] LABS: Hematocrit (blood only) 33.7 % (42-52); Hemoglobin 10.9 g/dL (14.0-18.0); Mean Corpuscular Hemoglobin 31.4 pg (25-34); Mean Corpuscular Hgb Conc 32.3 g/dL (32-36); Mean Corpuscular Volume 97.1 fL (80-100); Mean Platelet Volume 10.3 fL (7.4-10.4); Platelet Count 164 K/uL (130-400); RDW Coefficient of Variation 14.6 % (11.5-14.5); RDW Standard Deviation 51.8 fL (36.4-46.3); Red Blood Count 3.47 M/uL (4.7-6.1); White Blood Count 3.94 K/uL (4.8-10.8)
[2019-06-24 07:04] LABS: Albumin Level 2.8 gm/dl (3.4-5.0); BUN Creatinine Ratio 23.2 (10-20); Calcium 8.8 mg/dl (8.5-10.1); Creatinine Clr Calc Pharmacy 61.2 ml/min; Est GFR (African American) 70.5; Est GFR (Non-African American) 60.9; Potassium 4.1 mmol/L (3.5-5.1)
[2019-06-24 07:08] LABS: Albumin Globulin Ratio 0.9 (0.9-2); Bilirubin,Total 0.4 mg/dl (0.2-1); Globulin 3.2 gm/dl (2.5-4.0)
[2019-06-24] MEDS: DOCUSATE SODIUM/SENNA 50/8.6MG TAB PO SCH (08:27)
[2019-06-24] MEDS: THIAMINE HCL 100 MG TAB PO SCH ×2 (08:27→20:27)
[2019-06-24] MEDS: ASPIRIN 81 MG ECTAB PO SCH (08:28)
[2019-06-24] MEDS: FEXOFENADINE 60 MG TAB PO SCH ×2 (08:28→20:27)
[2019-06-24] MEDS: FOLIC ACID 1 MG TAB PO SCH (08:28)
[2019-06-24] MEDS: PANTOprazole 40 MG TAB PO SCH (08:28)
[2019-06-24] MEDS: FAMOTIDINE 40 MG TABLET PO SCH (08:28)
[2019-06-24] MEDS: TOPIRAMATE 100 MG TAB PO SCH ×2 (08:28→20:27)
[2019-06-24] MEDS: RISPERIDONE ODT 1MG PO SCH ×3 (08:28→20:27)
[2019-06-24] MEDS: CYANOCOBALAMIN 500 MCG TABLET (VITAMIN B-12) PO SCH (08:28)
[2019-06-24] MEDS: ATORVASTATIN 40 MG TAB PO SCH (08:29)
[2019-06-24] MEDS: POTASSIUM CHLORIDE 20 MEQ TABCR PO SCH (08:29)
[2019-06-24] MEDS: POLYETHYLENE (MIRALAX) 17 GM PACK PO SCH (08:29)
[2019-06-24] MEDS: METOPROLOL TARTRATE 25 MG TAB PO SCH ×2 (08:29→20:27)
[2019-06-24] MEDS: TRIAMCINOLONE ACET 0.1% OINT 15 GM TUBE EXT SCH ×3 (08:34→20:28)
[2019-06-24] MEDS ORDERED: FUROSEMIDE 20 MG TAB PO SCH (09:00)
[2019-06-24] MEDS ORDERED: ISOSORBIDE MONO EXTENDED REL 60 MG TABCR PO SCH (09:00)
--- NOTE | 2019-06-24 09:36 | Electrocardiogram Report ---
Test Reason : Blood Pressure : / mmHG Vent. Rate : 072 BPM Atrial Rate : 072 BPM P-R Int : 162 ms QRS Dur : 094 ms QT Int : 404 ms P-R-T Axes : 049 -41 044 degrees QTc Int : 442 ms Normal sinus rhythm Left axis deviation Inferior infarct (cited on or before 19-JAN-2016) Possible Anterolateral infarct (cited on or before 17-MAY-2018) Abnormal ECG When compared with ECG of 19-JUN-2019 16:51, No significant change was found Confirmed by Fox Lombardo ([id number]) on 06/24/2019 9:36:19 AM Referred By: REFERRED SELF Confirmed By:Fox Lombardo
--- NOTE | 2019-06-24 10:18 | Psychiatric Consultation ---
Date of Consultation June 24, 2019 Impression / Recommendations Impression 74-year-old male admitted medically on 06/23/2019 after being transferred to the medical floor from the mental health unit. He was initially admitted medically from 06/05/19 - 06/10/19 and was seen on psychiatric consult service at that time for delusional thinking - believing skin irritation was a result of exposure to harmful chemicals, and believing worms were crawling out of his skin. Pt was unwilling to consider medications to assist with clearing his thought process, and as he was not at acute risk of , serious injury, or debilitation - he was discharge home, as he did not meet inpatient psychiatric criteria, was refusing voluntary admission, and had support of family at home. Pt represented on 06/14/19 with similar concerns and our service was consulted for ongoing evaluation and recommendations. Pt was agreeable during this hospitalization to begin risperidone which was titrated to a dose of 0.5mg qAM and 1mg qHS during this admission. As patient was medically cleared, and family verbalized feeling uncomfortable with taking patient home, he was admitted voluntarily for inpatient psychiatric treatment. Additional history was able to be obtained at that time, suggesting the possibility of previous psychotic and/or manic episodes. During psychiatric admission, patient's reduced dose of citalopram was held which seemed to improve his hyperverbal presentation. His dose of risperidone was also titrated to 1 mg twice daily. Shortly after transfer to the psychiatric unit, patient had reportedly fainted while on the unit, causing a code purple to be called. Transfer to the medical floor was completed, as patient was complaining of left-sided numbness/weakness and required additional medical work-up. Patient was seen on psychiatric consult service, to continue to monitor response to changes in psychiatric medications. Although patient seems to be less pressured in speech, he continues to verbalize ongoing delusional believes related to history of chemical exposure and bugs crawling out of his skin. He points out several balls of lint, calling them "worms". Patient has not yet of the mindset that he is able to engage in reality testing, and becomes quite ups et if "someone calls me a liar." Given persistent disorganized thought process, preoccupation with the presence of these worms, tactile hallucinations, and visual distortions it is recommended that risperidone be titrated to 1 mg 3 times daily to continue to target the symptoms. This was reviewed with the patient, who verbalized willingness to increase the medication at this time. We will continue to follow the patient during his medical admission, and make additional recommendations as indicated. Patient continues to demonstrate limited desire to pursue outpatient psychiatric services after discharge. We will continue to address this, added as it is a strong recommendation from our service that he be seen by a psychiatric prescriber after discharge. We will attempt to coordinate care with hospitalist team, as timing of medical work-up and clearance is uncertain at this time. If patient is agreeable with inpatient psychiatric admission, it would seem appropriate for him to return to treatment once medically cleared. It remains uncertain that he would meet criteria for involuntary commitment, as other than verbalizing these delusions, it is believed he is demonstrating ability to care for his needs and does not pose an acute risk of , serious injury, or debilitation to himself or others. It is recommended that conversations regarding discharge planning be initiated during his medical admission, as it is unclear if recommendation would be for physical rehab after discharge or if from a medical perspective the patient is appropriate to return home. Would encourage involvement of and daughter in these conversations. Dr. Caitlin Robles was directly involved in review and discussion of the patient's case and participated in medical decision making regarding treatment recommendations. RECOMMENDATIONS: 06/24/2019 - Titrating risperidone to 1mg TID to further target delusions and disorganized thought process - Suggest initiating discharge planning conversations with case management - would suggest recommendations from primary team/case management regarding discharge recommendations. Discharge planning with be an important component of safety planning, even if patient does return to the behavioral health unit after medical clearance - At this time, patient verbalizes willingness to return to the behavioral health unit if it is recommended. It is not clear that he would meet criteria for involuntary commitment should be change his mind during his medical admission. Will continue to discuss discharge timeline with primary team to further review discharge recommendations Psych History Identifying Data 74-year-old male admitted medically on 06/23/2019 upon transfer from the mental health unit. Pt has been hospitalized multiple times on the medical floor, initially on 06/05/19 for numerous physical complaints. [facility] over the course of two medical admissions between 06/05/19 and 06/21/2019. He was ultimately willing for inpatient psychiatric admission to continue treatment for delusions and disorganized thought process. He was transferred back to the medical floor on 06/23/2019 after a code purple was called, patient having had a reported fainting episode. Psychiatric consultation was requested to continue psychiatric medication management for ongoing delusions, believing worms are coming out of his skin and other body sources. Chief Complaint "These worms are still coming out of me. They are giving me the heebie manuelebie botchy watchy bogies." History of Present Illness Tian Blanchard is a 74-year-old male admitted medically on 06/23/2019 upon transfer from the mental health unit after a code purple was called to evaluate for fainting spell. Pt was transferred to the medical floor and psychiatric consultation was requested to continue medication management for delusional disorder. Pt was seen today to continue to evaluate progress over the course of his hospitalization. He had a brief stay on the behavioral health unit, but was transferred back for medical admission after a fainting episode had occurred last evening. Patient states he does not recall specifics related to the event. He denies feeling dizzy or noticing a headache prior to his fall. Other than admitting to generalized weakness, patient is unable to recall anything remarkable related to this event. On the medical floor, he is continued to report numbness and tingling of his left side. He states that overall he is feeling somewhat better. Psychiatric symptoms were reviewed today. He was seen by catalino AGUILAR along with Cristela Cooper PA-C - a psychiatric provider onboarding with our department. Pt was agreeable with continuing conversation with an observer present. He admits that he is continuing to see worms coming out of his skin, and continues to believe that they are making up a large portion of his stools, while also packed into other body organs. Today, patient does point to specific objects, identifying them as "worms." For example, patient has a dirty tissue on his lap, pointing out specific solid material and stating that he pulled them out of body surfaces. Patient also states that he pulled a ball of lint from the bed sheets, but believes that this lint is a warm. Patient states "did you see that just move when I pointed to it?" The ball of lint, in fact attached itself to patient's finger and was raised up in the air for a period of time. Attempts were made by psychiatric nurse liaison to reality test earlier this morning, and were not successful as they actually induced increased irritability. This provider gently asked the patient what made him feel as though the object was not a ball of lint, especially since he admits he pulled it from a piece of sarbjit en. He demonstrates some increased irritability, as he states "you know what, I really hate when people call me a liar." Patient was reassured that this provider does believe that he is experiencing the situation, and that we are motivated to continue to help him feel more comfortable. Patient continues the conversation by repeating multiple statements from prior evaluations. Patient continues to be upset that there is not a saxophone teacher on staff here at the hospital, he also states that people are trying to be "too secretive" about his symptoms. Patient believes "really, I should be on quarantine." Patient does state that he enjoyed his time on the mental health unit, and states he would be willing to return if that was recommended after medical clearance. He continues to deny SI/HI or onset of new psychiatric concerns. Allergies Allergy/AdvReac Type Severity Reaction Status Date / Time morphine AdvReac Severe "STOPS MY Verified 06/14/19 08:08 HEART" hydromorphone [From Dilaudid] AdvReac Intermediate unresponsiv Verified 06/14/19 08:08 eness trazodone AdvReac Intermediate GI UPSET Verified 06/14/19 08:08 diazepam AdvReac Mild HALLUCINATE Verified 06/14/19 08:08 S propoxyphene AdvReac Mild DRUG Verified 06/14/19 08:08 INTOLERANCE Home Medications Home Medications Medication Instructions Recorded Confirmed Type pen needle, diabetic 31 gauge x #30 ea 12/03/18 06/14/19 Rx 5/16" nitroglycerin 0.4 mg sublingual 0.4 mg SL Q5M PRN #1 tab 02/05/19 06/23/19 History tablet metoprolol tartrate 75 mg tablet 75 mg PO BID #60 tab 05/30/19 06/23/19 Rx acetaminophen [Tylenol Extra 1,000 mg PO Q8H PRN 06/05/19 06/23/19 History Strength] polyethylene glycol 3350 [Miralax] 17 gm PO QAM 06/05/19 06/23/19 History sennosides-docusate sodium [Senna 1 tab PO QAM 06/05/19 06/23/19 History with Docusate Sodium] topiramate [Topamax] 100 mg PO BID 06/05/19 06/23/19 History tramadol [Ultram] 50 mg PO Q6H PRN 06/05/19 06/23/19 History atorvastatin 80 mg tablet 80 mg PO QAM #90 tab 06/12/19 06/23/19 Rx isosorbide mononitrate 60 mg 60 mg PO QAM #90 tab 06/12/19 06/23/19 Rx tablet,extended release 24 hr potassium chloride 20 mEq 20 meq PO QAM #90 tab 06/12/19 06/23/19 Rx tablet,extended release pantoprazole 40 mg PO DAILY 06/14/19 06/23/19 History aspirin [Ecotrin Low Strength] 81 mg PO DAILY #30 tab 06/21/19 06/23/19 Rx cyanocobalamin (vitamin B-12) 1,000 mcg PO DAILY #30 cap 06/21/19 06/23/19 Rx fexofenadine 60 mg PO BID #60 tab 06/21/19 06/23/19 Rx folic acid 1 mg PO QAM #30 tab 06/21/19 06/23/19 Rx thiamine HCl (vitamin B1) [Vitamin 200 mg PO BID #120 tab 06/21/19 06/23/19 Rx B-1] triamcinolone acetonide 1 applic EXT TID 7 Days #30 gm 06/21/19 06/23/19 Rx famotidine 40 mg PO QAM 1 Days #1 tab 06/23/19 06/23/19 Rx insulin glargine [Lantus Solostar 0 unit SUBCUT HS 1 Days #1 ml 06/23/19 06/23/19 Rx U-100 Insulin] risperidone 1 mg PO BID #1 tab 06/23/19 06/23/19 Rx Personal History Beliefs That Will Affect Care: None Patient History Medical History Atypical chest pain (Resolved) Benign colonic polyp (Chronic) CAD in [place] artery Cellulitis Cognitive disorder (Chronic) Controlled type 2 diabetes mellitus with neurologic complication, with long-term current use of insulin (Resolved) Conversion disorder (Resolved) Diabetes mellitus, type 2 Diabetic peripheral neuropathy (Chronic) Dyslipidemia (Resolved) Esophageal reflux (Chronic) History of colon polyps (Chronic) History of tobacco use (Resolved) Hyperlipidemia (Chronic) Hypertension Kidney stone on right side (Resolved) Migraines, neuralgic Myocardial Infarction (Resolved) 2004--follows with Dr. Mejia Nephrolithiasis (Resolved) Neurological deficit present (Resolved) Neuropathy (Chronic) Osteoarthritis (Chronic) Raynauds phenomenon (Chronic) Stage III chronic kidney disease Tubular adenoma of colon (Resolved) Vitamin D deficiency (Chronic) Wound of left foot (Resolved) Surgical History History of arthroscopy of left knee (Resolved) History of cardiac cath (Resolved) x3-4, last 2014 History of carpal tunnel release of both wrists (Resolved) History of colonoscopy (Resolved) History of heart artery stent (Resolved) x1--1998 History of lithotripsy (Resolved) x2 History of lumbar discectomy (Resolved) x2 History of open reduction and internal fixation (ORIF) procedure (Resolved) left ankle--hardware in place History of right cataract extraction (Resolved) History of tonsillectomy and adenoidectomy (Resolved) 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 Status post uvulopalatopharyngoplasty (Resolved) Family History Father Family history of diabetes mellitus Family hx of colon cancer Other No family history of adverse response to anesthesia Social History Preferred Language: [place] Communication Ability: Impaired Visual Impairment: No Limitations Purchasing Officer Required: No Beliefs That Will Affect Care: None marital status: marital status details: 3 children Current Living Situation: Spouse current occupational status: retired Other Information That Helps Us Care for You: No other: 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 ; Smoking End Date: 2016 ; Second Hand Exposure: No ; Hx Alcohol Use: No Hx Substance Use: No Physical Exam Psychiatric: Orientation: alert, oriented x 3 and cooperative (And pleasant, though direct and assertive) Apperance: appropriately dressed, appropriately groomed and appeared stated age Overweight appearing male, laying i n bed and appearing to be in mild discomfort. Patient is appropriately dressed for setting, wearing a hospital gown. Grooming and hygiene appear adequate for setting. He shows several areas of excoriation to his skin, likely a result of picking. Eye Contact: good eye contact Motor Behavior: no abnormal motor movements (Observed while laying in bed) Speech: normal rate/rhythm/volume of speech (Speech remains loud, but is far less pressured) Affect: euthymic affect (Patient is direct/assertive, which could be seen as irritability ) and + irritable affect (briefly demonstrating frustration at "being called a liar") Mood: no depressed mood and no anxious mood Thought Process: + perseveration; + thought process not linear or logical Thought Content: + preoccupation (wi th presence of worm in his body, coming out of skin ), + delusions and + hopelessness ("I don't think I'm make it out of this alive.") Suicidal Thoughts: denies suicidal thoughts and denies suicidal intent Homicidal Thoughts: denies homicidal thoughts Hallucinations: + visual hallucinations (visual distortions, believes pieces of lint are "worms") and + tactile hallucinations; no auditory hallucinations Cognition: attention grossly intact and language grossly intact Insight: + impaired insight Judgement: + impaired judgement Vital Signs (Past 24 Hours): Last Vital Signs Temp 36.7 C 06/24/19 07:56 Pulse 86 06/24/19 08:30 Resp 18 06/24/19 07:56 BP 107/66 06/24/19 08:30 Pulse Ox 97 06/24/19 07:56 Review of Systems Constitutional: denied Cardiovascular: denied Respiratory: denied Gastrointestinal: denied Neurological: denied Musculoskeletal: reporting bilateral back pain, "left kidney pain" Psychiatric: denies symptoms other than stated above Total of at least 10 systems reviewed, pertinent positives as above and in HPI. Results & Data Medications Administered Aspirin (Ecotrin Ectab) 81 mg PO DAILY [facility] Stop: 07/24/19 08:59 Last Admin: 06/24/19 08:28 Dose: 81 mg Documented by: [id number] Atorvastatin Calcium (Lipitor) [facility] Stop: 07/24/19 08:59 Last Admin: 06/24/19 08:29 Dose: 80 mg Documented by: [id number] Cyanocobalamin (Vitamin B-12) 1,000 mcg PO DAILY [facility] Stop: 07/24/19 08:59 Last Admin: 06/24/19 08:28 Dose: 1,000 mcg Documented by: [id number] Famotidine (Pepcid) 40 mg PO [facility] Stop: 07/24/19 08:59 Last Admin: 06/24/19 08:28 Dose: 40 mg Documented by: [id number] Fexofenadine HCl (Nikky) 60 mg PO BID [facility] Stop: 07/23/19 20:59 Last Admin: 06/24/19 08:28 Dose: 60 mg Documented by: [id number] Admin: 06/23/19 21:45 Dose: 60 mg Documented by: [id number] Folic Acid (Folvite) 1 [facility] Stop: 07/24/19 08:59 Last Admin: 06/24/19 08:28 Dose: 1 mg Documented by: [id number] Insulin Aspart (Novolog Flexpen) 0 units [facility] Stop: 07/23/19 20:59 Last Admin: 06/24/19 08:34 Dose: 9 units Documented by: [id number] Cosigned by: [id number] Admin: 06/23/19 21:38 Dose: 2 units Documented by: [id number] Cosigned by: [id number] Insulin Glargine (Lantus Solostar Pen) 0 units SC [facility]; Protocol Stop: 07/23/19 20:59 Last Admin: 06/23/19 21:39 Dose: 30 units Documented by: [id number] Cosigned by: [id number] Metoprolol Tartrate (Lopressor) 75 mg PO BID [facility] Stop: 07/23/19 20:59 Last Admin: 06/24/19 08:29 Dose: 75 mg Documented by: [id number] Admin: 06/23/19 21:41 Dose: 75 mg Documented by: [id number] Miscellaneous (Carbohydrates For Hypoglycemia) 15 - 30 gm PO UD PRN PRN Reason: Hypoglycemia Treatment Stop: 07/23/19 17:44 Last Admin: 06/23/19 14:22 Dose: 15 gm Documented by: [id number] Pantoprazole Sodium (Protonix) 40 mg PO DAILY [facility] Stop: 07/24/19 08:59 Last Admin: 06/24/19 08:28 Dose: 40 mg Documented by: [id number] Polyethylene Glycol (Miralax Powder Packet) 17 gm PO QAM [facility] Stop: 07/24/19 08:59 Last Admin: 06/24/19 08:29 Dose: 17 gm Documented by: [id number] Potassium Chloride (Klor-Con M20) 20 meq PO QAM [facility] Stop: 07/24/19 08:59 Last Admin: 06/24/19 08:29 Dose: 20 meq Documented by: [id number] Risperidone (Risperdal M) 1 mg PO BID [facility] Stop: 07/23/19 20:59 Last Admin: 06/24/19 08:28 Dose: 1 mg Documented by: [id number] Admin: 06/23/19 21:44 Dose: 1 mg Documented by: [id number] Senna/Docusate Sodium (Senokot S) 1 tab PO QAM [facility] Stop: 07/24/19 08:59 Last Admin: 06/24/19 08:27 Dose: 1 tab Documented by: [id number] Thiamine HCl (Vitamin B-1) 200 mg PO BID [facility] Stop: 07/23/19 20:59 Last Admin: 06/24/19 08:27 Dose: 200 mg Documented by: [id number] Admin: 06/23/19 21:46 Dose: 200 mg Documented by: [id number] Topiramate (Topamax) 100 mg PO BID [facility] Stop: 07/23/19 20:59 Last Admin: 06/24/19 08:28 Dose: 100 mg Documented by: [id number] Admin: 06/23/19 21:45 Dose: 100 mg Documented by: [id number] Triamcinolone Acetonide (Kenalog 0.1%) 1 appln EXT TID [facility] Stop: 07/23/19 20:59 Last Admin: 06/24/19 08:34 Dose: 1 appln Documented by: [id number] Admin: 06/23/19 21:44 Dose: 1 appln Documented by: [id number] Coding Level of Care Code 65352 [facility] Int[facility] Hosp Care Lvl 2
--- NOTE | 2019-06-24 12:19 | Pharmacy Report ---
Glycemic Control Progress Note - Date of Service June 24, 2019 - Scope Glycemic Pharmacist consulted for glycemic control to write orders per [facility], [facility] inpatient glycemic control protocol. Original consult was from U admission. This is a follow-up. - Objective Accuchecks BSG(last 24 hours):: 06/23/19 06/23/19 06/23/19 14:21 14:22 14:44 Glucose POC Glucose 68 L* 68 L* 76 06/23/19 06/23/19 06/23/19 16:28 20:16 23:44 Glucose POC Glucose 137 H 200 H 115 H 06/24/19 06/24/19 06/24/19 04:01 05:50 07:23 Glucose 104 H POC Glucose 116 H 106 H 06/24/19 11:12 Glucose POC Glucose 146 H - Recent Pertinent Medications The patient is currently receiving: * Basal insulin: Lantus 25-30 units every 24 hours * Correctional Insulin: Novolog Correction per scale ACHS Goal Range: Low 110 mg/dL - High 140 mg/dL Correction Factor: 30 mg/dL/unit * Prandial insulin: Per carb ratio of 1 unit per 8 grams CHO consumed - Outpatient Anti-Diabetic Meds Lantus 40-60 units HS Humalog 10-15 units prior to meals - Assessment & Plan ASSESSMENT: * See progress note from 06/06/19 for more background info, in short: * Pt receiving SQ basal bolus insulin regimen for hyperglycemia secondary to baseline DM (outpatient regimen on hold). Patient transferred from mental health unit yesterday due to "black out." * Patient is currently receiving an average of ~50 units of insulin per day * 30 units of basal insulin * 20 units of prandial/correctional insulin * BSGs ranging 103 - 200 mg/dl over the past 24hrs * Changes needed to insulin regimen: * AM Fasting BSG = 106 mg/dl. This is in goal range for patient based on inpatient targets and co-morbidities. Therefore Basal insulin will be continued. May be fixed at a dose of 28 units nightly - determine this tomorrow. * Post-prandial BSGs were trending upwards. Tightened carbohydrate ratio to 8. * Total daily dose = ~50 units. PLAN FOR INPATIENT GLYCEMIC CONTROL: * Continuing Lantus 25-30 units SQ HS * Continuing correction factor of 30 mg/dl/unit * TIGHTENING carb ratio to 1 unit per 8 grams CHO consumed * Continuing goal range of Low 110 mg/dL - High 140 mg/dL * Please note that the plan above was derived based on current level of insulin resistance and hospital stress. These recommendations are appropriate for inpatient admission only. Plan of care upon discharge will need to be reassessed to avoid potential outpatient hypo/hyperglycemia. Thank you.
--- NOTE | 2019-06-24 17:53 | Hospitalist Progress Note ---
Date of Service June 24, 2019 Assessment & Plan (1) Conversion disorder: Likely cause for fainting episode 06/23 Similar episode during previous admission with loss of control over all four limbs that resolved in about an hour. CTA head and neck, CT head all negative, CT spine was negative for acute. MRI brain 06/14 with Punctate 3 mm periventricular T2 hyperintense focus within the right parietal lobe indicating a tiny subacute infarct - unlikely to have been a factor. Patient does have some foraminal narrowing and a bulging disk on MRI cervical spine without deformity of spine - will consult ortho Ammonia was wnl, troponin was wnl - will recheck EKG unremarkable Consulted neurology - no further workup beyond MRI of C spine MRI spine with osteophytic narrowing of the bulk of the neural foramina bilaterally and interaval development of a mild broad based disk herniation at C 6-C7 without deformity of the cord. - ortho consulted CT abd/pelvis for flank pain complaints - no acute process, no obstruction of the urinary tract, moderate increase in colonic fecal load, small pericardial effusion - will follow effusion up with limited echo PT/OT Psych consulted (2) Psychotic disorder: Management per psychiatry (3) Chronic diastolic CHF (congestive heart failure): Held furosemide for JUANCARLOS 06/23 - resolved - will resume tomorrow if pressures are no longer hypotensive held isosorbide for hypotension Continue metoprolol (4) Vitamin B12 deficiency: Continue supplementation (5) Stage III chronic kidney disease: avoid nephrotoxins where possible CMP am (6) CAD in [place] artery: Continue ASA, isosorbide held for hyptotension, continue statin, metoprolol (7) Thiamine deficiency: Continue supplementation (8) Hyperlipidemia: Continue statin (9) Diabetic peripheral neuropathy: (10) Hypertension: Isosorbide held for hypotension, continue metoprolol (11) JUANCARLOS (acute kidney injury): Resolved with IVF and holding furosemide - will resume furosemide at reduced dose of 20 mg tomorrow (12) Diabetes mellitus, type 2: consult glycemic pharmacist (13) Alcohol abuse: thiamine supplementation Last drink was prior to last admission so out of window for withdrawal DVT proph: SCD Dispo: transfer to med surg - hopefully can return to behavioral health unit tomorrow Subjective Mr. Blanchard continues to be convinced there are bugs in his lungs and GI tract. He continues to have left arm and leg weakness and reduced vision in his left eye. He has pain in his left chest that is reproducible to palpation ROS Constitutional: no chills, aches, sweats or fever Respiratory: no sob,cough, sputum, or wheezing Cardiac: no chest pain, palpitations, edema, orthopnea or lightheadedness GI: no abdominal pain, nausea, vomiting, diarrhea or constipation : no dysuria or hesitancy Extremities: no joint pain or weakness Skin: no rash All other systems reviewed and negative Physical Exam Physical Exam: General: no distress Eyes: normal inspection, PERLL Respiratory: chest non tender, clear to auscultation, normal breath sounds, no respiratory distress, no accessory muscle use Cardiac: regular rate and rhythm, no rub or gallop, no murmur, no edema, no jvd GI/: active bowel sounds, no abd pain or tenderness, soft, non distended Extremities: normal range of motion, normal strength, non tender Neuro/Psych: alert and oriented x 3, normal mood and affect Skin: normal color, dry Results & Data Vital Signs (Past 12 Hours) Vital Signs Temp Pulse Pulse Pulse Resp BP Pulse Ox 06/24/19 16:21 36.7 C 70 18 116/72 99 06/24/19 16:02 67 06/24/19 11:39 36.5 C 63 19 102/63 98 06/24/19 08:30 86 107/66 06/24/19 08:00 68 06/24/19 07:56 36.7 C 70 18 98/58 L 97 PG Care Time/CCT Total # of Minutes Spent Total Time Spent with Patient: Total time spent is greater than 50% in coordination of care (as documented) at patient's floor/unit and/or counseling patient: (1) Diabetes mellitus, type 2 Diabetes mellitus complication detail: with polyneuropathy Diabetes mellitus complication status: with neurologic complications Diabetes mellitus intermediate teacher insulin use: with intermediate teacher use Qualified Code(s): E11.42 - Type 2 diabetes mellitus with diabetic polyneuropathy; 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
[2019-06-24] MEDS: INSULIN GLARGINE SOLOSTAR 100 UNITS/ML 3 ML PEN SC SCH (20:29)
[2019-06-25 07:50] LABS: Hematocrit (blood only) 35.8 % (42-52); Hemoglobin 11.3 g/dL (14.0-18.0); Mean Corpuscular Hemoglobin 31.4 pg (25-34); Mean Corpuscular Hgb Conc 31.6 g/dL (32-36); Mean Corpuscular Volume 99.4 fL (80-100); Mean Platelet Volume 9.9 fL (7.4-10.4); Platelet Count 161 K/uL (130-400); RDW Coefficient of Variation 14.5 % (11.5-14.5); RDW Standard Deviation 52.2 fL (36.4-46.3); White Blood Count 4.57 K/uL (4.8-10.8)
[2019-06-25] MEDS: POLYETHYLENE (MIRALAX) 17 GM PACK PO SCH (07:51)
[2019-06-25] MEDS: CYANOCOBALAMIN 500 MCG TABLET (VITAMIN B-12) PO SCH (07:52)
[2019-06-25] MEDS: THIAMINE HCL 100 MG TAB PO SCH (07:52)
[2019-06-25] MEDS: DOCUSATE SODIUM/SENNA 50/8.6MG TAB PO SCH (07:52)
[2019-06-25] MEDS: FAMOTIDINE 40 MG TABLET PO SCH (07:53)
[2019-06-25] MEDS: RISPERIDONE ODT 1MG PO SCH (07:53)
[2019-06-25] MEDS: PANTOprazole 40 MG TAB PO SCH (07:53)
[2019-06-25] MEDS: ATORVASTATIN 40 MG TAB PO SCH (07:53)
[2019-06-25] MEDS: METOPROLOL TARTRATE 25 MG TAB PO SCH (07:53)
[2019-06-25] MEDS: ASPIRIN 81 MG ECTAB PO SCH (07:54)
[2019-06-25] MEDS: FEXOFENADINE 60 MG TAB PO SCH (07:54)
[2019-06-25] MEDS: POTASSIUM CHLORIDE 20 MEQ TABCR PO SCH (07:54)
[2019-06-25] MEDS: FOLIC ACID 1 MG TAB PO SCH (07:54)
[2019-06-25] MEDS: TOPIRAMATE 100 MG TAB PO SCH (07:55)
[2019-06-25] MEDS: TRIAMCINOLONE ACET 0.1% OINT 15 GM TUBE EXT SCH (07:55)
[2019-06-25] MEDS: INSULIN ASPART 100 UNITS/ML 3 ML PEN SC SCH ×2 (07:57→12:42)
--- NOTE | 2019-06-25 08:24 | Orthopedic Consultation ---
Date of Consultation June 25, 2019 Assessment & Plan (1) Cervical radiculopathy: Assessment: I feel this is more of a global upper extremity weakness and lower extremity weakness. I do not see there is any cervical nerve root findings although possible. His MRI was relatively clear of significant pathology In summary I would recommend conservative care all the way of course. Would benefit from outside physical therapy when he is discharged. At this point time there is no need for further work-up History of Present Illness Reason for Consultation: Chief complaint: Left upper extremity weakness. History: Is pleasant gentleman I am seeing me in consultation for his left upper extremity weakness and left lower extremity weakness. Evidently there was a presumptive diagnosis that the problem was positive from his spine. He has multiple other comorbidities associated with his admission Attending Physician: Xavier Aparicio MD Allergies Allergy/AdvReac Type Severity Reaction Status Date / Time morphine AdvReac Severe "STOPS MY Verified 06/14/19 08:08 HEART" hydromorphone [From Dilaudid] AdvReac Intermediate unresponsiv Verified 06/14/19 08:08 eness trazodone AdvReac Intermediate GI UPSET Verified 06/14/19 08:08 diazepam AdvReac Mild HALLUCINATE Verified 06/14/19 08:08 S propoxyphene AdvReac Mild DRUG Verified 06/14/19 08:08 INTOLERANCE Home Medications Home Medications Medication Instructions Recorded Confirmed Type pen needle, diabetic 31 gauge x #30 ea 12/03/18 06/14/19 Rx 5/16" nitroglycerin 0.4 mg sublingual 0.4 mg SL Q5M PRN #1 tab 02/05/19 06/23/19 History tablet metoprolol tartrate 75 mg tablet 75 mg PO BID #60 tab 05/30/19 06/23/19 Rx acetaminophen [Tylenol Extra 1,000 mg PO Q8H PRN 06/05/19 06/23/19 History Strength] polyethylene glycol 3350 [Miralax] 17 gm PO QAM 06/05/19 06/23/19 History sennosides-docusate sodium [Senna 1 tab PO QAM 06/05/19 06/23/19 History with Docusate Sodium] topiramate [Topamax] 100 mg PO BID 06/05/19 06/23/19 History tramadol [Ultram] 50 mg PO Q6H PRN 06/05/19 06/23/19 History atorvastatin 80 mg tablet 80 mg PO QAM #90 tab 06/12/19 06/23/19 Rx isosorbide mononitrate 60 mg 60 mg PO QAM #90 tab 06/12/19 06/23/19 Rx tablet,extended release 24 hr potassium chloride 20 mEq 20 meq PO QAM #90 tab 06/12/19 06/23/19 Rx tablet,extended release pantoprazole 40 mg PO DAILY 06/14/19 06/23/19 History aspirin [Ecotrin Low Strength] 81 mg PO DAILY #30 tab 06/21/19 06/23/19 Rx cyanocobalamin (vitamin B-12) 1,000 mcg PO DAILY #30 cap 06/21/19 06/23/19 Rx fexofenadine 60 mg PO BID #60 tab 06/21/19 06/23/19 Rx folic acid 1 mg PO QAM #30 tab 06/21/19 06/23/19 Rx thiamine HCl (vitamin B1) [Vitamin 200 mg PO BID #120 tab 06/21/19 06/23/19 Rx B-1] triamcinolone acetonide 1 applic EXT TID 7 Days #30 gm 06/21/19 06/23/19 Rx famotidine 40 mg PO QAM 1 Days #1 tab 06/23/19 06/23/19 Rx insulin glargine [Lantus Solostar 0 unit SUBCUT HS 1 Days #1 ml 06/23/19 06/23/19 Rx U-100 Insulin] risperidone 1 mg PO BID #1 tab 06/23/19 06/23/19 Rx Patient History Medical History Atypical chest pain (Resolved) Benign colonic polyp (Chronic) CAD in [place] artery Cellulitis Cognitive disorder (Chronic) Controlled type 2 diabetes mellitus with neurologic complication, with long-term current use of insulin (Resolved) Conversion disorder (Resolved) Diabetes mellitus, type 2 Diabetic peripheral neuropathy (Chronic) Dyslipidemia (Resolved) Esophageal reflux (Chronic) History of colon polyps (Chronic) History of tobacco use (Resolved) Hyperlipidemia (Chronic) Hypertension Kidney stone on right side (Resolved) Migraines, neuralgic Myocardial Infarction (Resolved) 2004--follows with Dr. Mejia Nephrolithiasis (Resolved) Neurological deficit present (Resolved) Neuropathy (Chronic) Osteoarthritis (Chronic) Raynauds phenomenon (Chronic) Stage III chronic kidney disease Tubular adenoma of colon (Resolved) Vitamin D deficiency (Chronic) Wound of left foot (Resolved) Surgical History History of arthroscopy of left knee (Resolved) History of cardiac cath (Resolved) x3-4, last 2014 History of carpal tunnel release of both wrists (Resolved) History of colonoscopy (Resolved) History of heart artery stent (Resolved) x1--1999 History of lithotripsy (Resolved) x2 History of lumbar discectomy (Resolved) x2 History of open reduction and internal fixation (ORIF) procedure (Resolved) left ankle--hardware in place History of right cataract extraction (Resolved) History of tonsillectomy and adenoidectomy (Resolved) 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[facility] - 05/2019 Status post uvulopalatopharyngoplasty (Resolved) Family History Father Family history of diabetes mellitus Family hx of colon cancer Other No family history of adverse response to anesthesia Social History Preferred Language: Kazakh Communication Ability: Impaired Visual Impairment: No Limitations 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 ; Smoking End Date: 2016 ; Second Hand Exposure: No ; Hx Alcohol Use: No Hx Substance Use: No Review of Systems Review of Systems: Denies currently with me any fever sweats chills No chest pain shortness of breath No nausea vomiting or bowel bladder issues. Positive review for left upper extremity difficulty on the left-hand side. Physical Exam Physical Exam: Vital signs stable HEENT examination normal. He is conversant speaks normally. Minimal complaints of pain Cardiac regular rate rhythm about 80 bpm Lungs clear Extremity examination he has some global weakness of his deltoid biceps function and triceps function. He is in a cast to his left upper extremity. He has no neck pain or Spurling maneuver Results & Data Vital Signs (Past 12 Hours) Vital Signs Temp Pulse Resp BP Pulse Ox 06/25/19 07:32 36.5 C 73 20 102/69 06/25/19 04:37 36.4 C L 68 16 115/70 97 06/25/19 03:51 36.7 C 72 20 106/70 97 06/24/19 23:00 36.4 C L 73 20 121/74 96 PG Care Time/CCT Total # of Minutes Spent Total Time Spent with Patient: Total time spent is greater than 50% in coordination of care (as documented) at patient's floor/unit and/or counseling patient:
[2019-06-25] MEDS ORDERED: FUROSEMIDE 20 MG TAB PO SCH (09:00)
--- NOTE | 2019-06-25 12:37 | Discharge Summary ---
Date of Service June 25, 2019 Admission HPI Per Admitting Provider Tian Blanchard is a 74-year-old male admitted medically on 06/23/2019 upon transfer from the mental health unit after a code purple was called to evaluate for fainting spell. Pt was transferred to the medical floor and psychiatric consultation was requested to continue medication management for delusional disorder. Pt was seen today to continue to evaluate progress over the course of his hospitalization. He had a brief stay on the behavioral health unit, but was transferred back for medical admission after a fainting episode had occurred last evening. Patient states he does not recall specifics related to the event. He denies feeling dizzy or noticing a headache prior to his fall. Other than admitting to generalized weakness, patient is unable to recall anything remarkable related to this event. On the medical floor, he is continued to report numbness and tingling of his left side. He states that overall he is feeling somewhat better. Psychiatric symptoms were reviewed today. He was seen by catalino AGUILAR along with Cristela Cooper PA-C - a psychiatric provider onboarding with our department. Pt was agreeable with continuing conversation with an observer present. He admits that he is continuing to see worms coming out of his skin, and continues to believe that they are making up a large portion of his stools, while also packed into other body organs. Today, patient does point to specific objects, identifying them as "worms." For example, patient has a dirty tissue on his lap, pointing out specific solid material and stating that he pulled them out of body surfaces. Patient also states that he pulled a ball of lint from the bed sheets, but believes that this lint is a warm. Patient states "did you see that just move when I pointed to it?" The ball of lint, in fact attached itself to patient's finger and was raised up in the air for a period of time. Attempts were made by psychiatric nurse liaison to reality test earlier this morning, and were not successful as they actually induced increased irritability. This provider gently asked the patient what made him feel as though the object was not a ball of lint, especially since he admits he pulled it from a piece of linen. He demonstrates some increased irritability, as he states "you know what, I really hate when people call me a liar." Patient was reassured that this provider does believe that he is experiencing the situation, and that we are motivated to continue to help him feel more comfortable. Patient continues the conversation by repeating multiple statements from prior evaluations. Patient continues to be upset that there is not a machine stitcher on staff here at the hospital, he also states that people are trying to be "too secretive" about his symptoms. Patient believes "really, I should be on quarantine." Patient does state that he enjoyed his time on the mental health unit, and states he would be willing to return if that was recommended after medical clearance. He continues to deny SI/HI or onset of new psychiatric concerns. Principal Diagnosis conversion disorder Discharge Exam Constitutional WD/WN, vitals as above Respiratory normal respiratory effort, lungs clear to auscultation Cardiovascular RRR, no murmur, no edema Gastrointestinal (Abdomen) Inspection/Auscultation: abdomen normal to inspection and normal bowel sounds; abdomen not distended Percussion/Palpation: abdomen soft; abdomen nontender Musculoskeletal no cyanosis or clubbing, extremities motor strength 5/5 Skin no rashes, warm and dry Neurologic moves all extremities and awake Psychiatric A+Ox3, euthymic affect Continues to complain of worms in his lungs, gi tract and skin Discharge Data Allergies Allergy/AdvReac Type Severity Reaction Status Date / Time morphine AdvReac Severe "STOPS MY Verified 06/14/19 08:08 HEART" hydromorphone [From Dilaudid] AdvReac Intermediate unresponsiv Verified 06/14/19 08:08 eness trazodone AdvReac Intermediate GI UPSET Verified 06/14/19 08:08 diazepam AdvReac Mild HALLUCINATE Verified 06/14/19 08:08 S propoxyphene AdvReac Mild DRUG Verified 06/14/19 08:08 INTOLERANCE Consultations 06/23/19 13:55 Consult Neurology Routine 06/23/19 13:59 Consult Case Management - Discharge Planning Routine 06/23/19 19:04 Consult Orthopedic Surgery Routine 06/23/19 19:10 Consult Psychiatry Routine Ordered Studies 06/23/19 14:00 MR cervical spine wo con Routine 06/23/19 14:18 CT abd pelvis wo con Routine Hospital Course (1) Conversion disorder: Likely cause for fainting episode 06/23 - resolved in about an hour Similar episode during previous admission with loss of control over all four limbs that resolved in about an hour. CTA head and neck, CT head all negative, CT spine was negative for acute. MRI brain 06/14 with Punctate 3 mm periventricular T2 hyperintense focus within the right parietal lobe indicating a tiny subacute infarct - unlikely to have been a factor. Patient does have some foraminal narrowing and a bulging disk on MRI cervical spine without deformity of spine - consulted ortho - recommend PT, no surgical intervention Ammonia was wnl, troponin was wnl - will recheck EKG unremarkable Consulted neurology - no further workup beyond MRI of C spine - maintain thiamine, b12, folate supplementation CT abd/pelvis for flank pain complaints - no acute process, no obstruction of the urinary tract, moderate increase in colonic fecal load, small pericardial effusion - no effusion on follow up echo (2) Chronic diastolic CHF (congestive heart failure): Held furosemide for UJANCARLOS 06/23 - resolved - resume today at reduced dose 20 mg po instead of 40 mg held isosorbide for hypotension Continue metoprolol (3) Vitamin B12 deficiency: Continue supplementation (4) Stage III chronic kidney disease: avoid nephrotoxins where possible CMP am (5) CAD in [place] artery: Continue ASA, isosorbide held for hyptotension, continue statin, metoprolol (6) Thiamine deficiency: Continue supplementation (7) Hyperlipidemia: Continue statin (8) Diabetic peripheral neuropathy: (9) Hypertension: Isosorbide held for hypotension, continue metoprolol (10) JUANCARLOS (acute kidney injury): Resolved with IVF and holding furosemide - will resume furosemide at reduced dose of 20 mg tomorrow (11) Diabetes mellitus, type 2: consult glycemic pharmacist (12) Alcohol abuse: thiamine supplementation Last drink was prior to last admission so out of window for withdrawal DVT proph: SCD Dispo: U Total Time Total Time Spent Total Time Spent (In Minutes): greater than 30 minutes Discharge Plan Discharge Items Patient Disposition: Transfer Behavioral Health Fac Reason For Visit: ALTERED MENTAL STATUS Discharge Diagnosis: Conversion disorder Activity: Resume your previous activity Non-emergency contact: Primary Care Provider Call non-emergency contact if: you have any medication questions Follow-up/Referrals: ProFox MD [Primary Care Provider] - Diet: Carb Consistent or DM2 and Heart Healthy Addtl Attending Provider Instructions: (1) Conversion disorder: Likely cause for fainting episode /6 - resolved in about an hour Similar episode during previous admission with loss of control over all four limbs that resolved in about an hour. CTA head and neck, CT head all negative, CT spine was negative for acute. MRI brain 06/14 with Punctate 3 mm periventricular T2 hyperintense focus within the right parietal lobe indicating a tiny subacute infarct - unlikely to have been a factor. Patient does have some foraminal narrowing and a bulging disk on MRI cervical spine without deformity of spine - consulted ortho - recommend PT, no surgical intervention Ammonia was wnl, troponin was wnl - will recheck EKG unremarkable Consulted neurology - no further workup beyond MRI of C spine - maintain thiamine, b12, folate supplementation CT abd/pelvis for flank pain complaints - no acute process, no obstruction of the urinary tract, moderate increase in colonic fecal load, small pericardial effusion - no effusion on follow up Echo (2) Psychotic disorder: Management per psychiatry (3) Chronic diastolic CHF (congestive heart failure): Held furosemide for JUANCARLOS now resumed at decrease dose held isosorbide for hypotension - this can be resumed Continue metoprolol (4) Vitamin B12 deficiency: Continue supplementation as above (5) Stage III chronic kidney disease: avoid nephrotoxins where possible (6) CAD in [place] artery: Continue ASA, isosorbide, statin, metoprolol (7) Thiamine deficiency: Continue supplementation (8) Hyperlipidemia: Continue statin (9) Diabetic peripheral neuropathy: (10) Hypertension: Isosorbide, metoprolol (11) JUANCARLOS (acute kidney injury): Resolved (12) Diabetes mellitus, type 2: consulted glycemic pharmacist as patient was somewhat hypoglycemic upon arrival to hospital floor. Would re-consult when admitted to [facility] (13) Alcohol abuse: Continue thiamine supplementation Last drink was prior to last admission so out of window for withdrawal Pending Studies at Discharge: No Stand-Alone Forms: My [facility] Medications and DC Order Prescriptions: New furosemide 20 mg Tablet 20 mg PO QAM Qty: 30 RF: 0 Continued isosorbide mononitrate 60 mg tablet extended release 24 hr 60 mg PO QAM Qty: 90 RF: 3 atorvastatin [Lipitor] 80 mg tablet 80 mg PO QAM Qty: 90 RF: 3 potassium chloride [K-Tab] 20 mEq tablet extended release 20 meq PO QAM Qty: 90 RF: 3 metoprolol tartrate 75 mg tablet 75 mg PO BID Qty: 60 RF: 2 (DME) pen needle, diabetic [BD Ultra-Fine Short Pen Needle] 31 gauge x 5/16" needle See Dose Instructions .ROUTE .MEDSUPPLY Qty: 30 RF: 0 nitroglycerin [Nitrostat] 0.4 mg tablet, sublingual 0.4 mg SL Q5M PRN (Reason: Chest Pain) Qty: 1 RF: 0 famotidine 40 mg Tablet 40 mg PO QAM 1 Days Qty: 1 RF: 0 sennosides-docusate sodium [Senna with Docusate Sodium] 8.6-50 mg tablet 1 tab PO QAM RF: 0 tramadol [Ultram] 50 mg tablet 50 mg PO Q6H PRN (Reason: pain) RF: 0 acetaminophen [Tylenol Extra Strength] 500 mg tablet 1,000 mg PO Q8H PRN (Reason: Pain) RF: 0 polyethylene glycol 3350 [Miralax] 17 gram/dose powder 17 gm PO QAM RF: 0 topiramate [Topamax] 100 mg tablet 100 mg PO BID RF: 0 pantoprazole 40 mg Tablet,Delayed Release (Dr/Ec) 40 mg PO DAILY RF: 0 fexofenadine 60 mg Tablet 60 mg PO BID Qty: 60 RF: 0 thiamine HCl (vitamin B1) [Vitamin B-1] 100 mg Tablet 200 mg PO BID Qty: 120 RF: 0 aspirin [Ecotrin Low Strength] 81 mg Tablet,Delayed Release (Dr/Ec) 81 mg PO DAILY Qty: 30 RF: 0 triamcinolone acetonide 0.1 % Ointment 1 applic EXT TID 7 Days Qty: 30 RF: 0 folic acid 1 mg Tablet 1 mg PO QAM Qty: 30 RF: 0 cyanocobalamin (vitamin B-12) 1,000 mcg capsule 1,000 mcg PO DAILY Qty: 30 RF: 11 No Action risperidone 1 mg tablet,disintegrating 1 mg PO TID RF: 0 Lantus Solostar U-100 Insulin 100 unit/mL (3 mL) insulin pen 30 unit subcut HS RF: 0 Discharge Orders: Discharge Order (Routine); Ordered 06/25/19 Ordered By: Jasmyne Ulrich Admission Data Admit Date/Time: 06/23/19 13:47 Attending Provider: Xavier Aparicio Admit Provider: Xavier Aparicio Primary Care Provider: Fox Moran Other Providers: Yina Stokes ; Raffy John ; Leigh Vaz Other Interventions: Discharge Summary Assessment (RN) Last Done: 06/25/19 12:46 DC Date/Time DO NOT enter until pt leaves facility: 06/25/19 13:45 Supervising Physician Co-Signing Physician Notes I supervised Jasmyne Ulrich NP on this patient's care. I examined the patient today independently of her. I discussed the plan of care with her with the plan being as written in her note except for any following changes/exceptions: None. Unfortunately still with delusions and now often mentioning his "spells" where he reports he cannot move his body (but still converses) and also reports he speaks with angels. He will return to psychiatry where hopefully he will improv e.
--- NOTE | 2019-06-25 13:02 | Psychiatric Progress Note ---
Date of Service June 25, 2019 Impression / Recommendations Impression And agreed to voluntary psychiatric hospitalization; [facility] to [facility] (1) Conversion disorder: Likely cause for fainting episode 06/23 - resolved in about an hour Similar episode during previous admission with loss of control over all four limbs that resolved in about an hour. CTA head and neck, CT head all negative, CT spine was negative for acute. MRI brain 06/14 with Punctate 3 mm periventricular T2 hyperintense focus within the right parietal lobe indicating a tiny subacute infarct - unlikely to have been a factor. Patient does have some foraminal narrowing and a bulging disk on MRI cervical spine without deformity of spine - consulted ortho - recommend PT, no surgical intervention Ammonia was wnl, troponin was wnl - will recheck EKG unremarkable Consulted neurology - no further workup beyond MRI of C spine - maintain thiamine, b12, folate supplementation MRI spine with osteophytic narrowing of the bulk of the neural foramina bilaterally and interval development of a mild broad based disk herniation at C6-C7 without deformity of the cord. CT abd/pelvis for flank pain complaints - no acute process, no obstruction of the urinary tract, moderate increase in colonic fecal load, small pericardial effusion - will follow effusion up with limited echo PT/OT (2) Psychotic disorder: 06/24/2019 - Titrating risperidone to 1mg TID to further target delusions and disorganized thought process - Suggest initiating discharge planning conversations with case management - would suggest recommendations from primary team/case management regarding discharge recommendations. Discharge planning with be an important component of safety planning, even if patient does return to the behavioral health unit after medical clearance - At this time, patient verbalizes willingness to return to the behavioral health unit if it is recommended. It is not clear that he would meet criteria for involuntary commitment should be change his mind during his medical admission. Will continue to discuss discharge timeline with primary team to further review discharge recommendations 06/25 -Transferred to the [facility] for ongoing treatment. See admission note for details. Interval History Chief Complaint " Better than this morning". Subjective Subjective Patient was seen & assessed and interval progress reviewed with nurse and the primary team. His medical work-up of unresponsive spells has been negative and most likely diagnosis is thought to be conversion disorder. He had negative CTAs of the head and neck, head CT, and spine CT, brain MRI showed punctate 3 mm periventricular T2 hyperintense focus within the right parietal lobe indicating a small subacute infarct, which was thought to be unlikely to be playing a role in his symptoms. As he had foraminal narrowing and a bulging disc on cervical spine MRI, orthopedics was consulted, and felt that his weakness was global and recommended conservative care with outpatient physical therapy. Neurology was also consulted and thought his symptoms were likely due to conversion disorder, Wernicke-Korsakoff syndrome, or multiple vitamin B deficiencies. He had an EEG that was unremarkable. They recommended physical therapy and thiamine, folate, and multivitamin. He had a CT of the abdomen and pelvis due to complaints of flank pain, which showed moderate increase in colonic fecal load and a small pericardial effusion. He had a limited echo today which was negative for effusion. Furosemide was held due to acute kidney injury, which has since resolved. He continues to report leg weakness but has been able to ambulate to the toilet with minimal assistance. He continues to report that there are bugs crawling out of his skin. This morning, he reported that one arm and leg were becoming paralyzed, and that the left side of his head was "caving in." He was able to respond to directions, and although he reported that he had lost sensation, he was able to feel tactile stimuli. He initially stated he could not move his fingers, but then was able to move his fingers in response to commands. He said "here it comes," and then became unresponsive. His vital signs were normal, and BSG 150. He did not respond to sternal rub, but did pull his arm away when pressure was applied to the nailbed. The episode lasted approximately 15 minutes. On my assessment, he is seated at the bedside eating lunch. He states all of the symptoms from this morning's episode have fully resolved, and he was just able to ambulate to the bathroom and do his usual grooming activities without difficulty. He states mood is "really good," but continues to state he does not want to return home and live with his , and wants to go to supportive living in [place]. He states he has started the process and has talked to "Michael," but is not sure what needs to happen next to make the transition. He states he continues to deal with "bugs," and is willing to return to the [facility] to complete his treatment. Physical Exam Vital Signs (Past 24 Hours) Last Vital Signs Temp 36.5 C 06/25/19 07:32 Pulse 73 06/25/19 07:32 Resp 20 06/25/19 07:32 BP 102/69 06/25/19 07:32 Pulse Ox 97 06/25/19 04:37 Results & Data Laboratory Results Laboratory Results - last 24 hr 06/24/19 06/24/19 06/25/19 16:18 20:21 04:22 WBC RBC Hgb Hct MCV MCH MCHC RDW Std Deviation RDW Coeff of Gissel Plt Count MPV POC Glucose 108 H 147 H 150 H 06/25/19 06/25/19 06/25/19 07:31 07:46 11:35 WBC 4.57 L RBC 3.60 L Hgb 11.3 L Hct 35.8 L MCV 99.4 MCH 31.4 MCHC 31.6 L RDW Std Deviation 52.2 H RDW Coeff of Gissel 14.5 Plt Count 161 MPV 9.9 POC Glucose 141 H 194 H Current Inpatient Medications Current Inpatient Medications: Current Inpatient Medications Acetaminophen (Tylenol) 650 mg PO Q4H PRN PRN Reason: Pain or Fever Stop: 07/23/19 13:54 Acetaminophen (Tylenol) 1,000 mg PO Q8H PRN PRN Reason: Pain Stop: 07/23/19 19:12 Aspirin (Ecotrin Ectab) 81 mg PO DAILY [facility] Stop: 07/24/19 08:59 Last Admin: 06/25/19 07:54 Dose: 81 mg Documented by: Atorvastatin Calcium (Lipitor) 80 mg PO QAM [facility] Stop: 07/24/19 08:59 Last Admin: 06/25/19 07:53 Dose: 80 mg Documented by: Cyanocobalamin (Vitamin B-12) 1,000 mcg PO DAILY [facility] Stop: 07/24/19 08:59 Last Admin: 06/25/19 07:52 Dose: 1,000 mcg Documented by: Dextrose (Dextrose 50%) 25 - 50 ml IV UD PRN; Protocol PRN Reason: Hypoglycemia Protocol Stop: 07/23/19 17:44 Famotidine (Pepcid) 40 mg PO QAM [facility] Stop: 07/24/19 08:59 Last Admin: 06/25/19 07:53 Dose: 40 mg Documented by: Fexofenadine HCl (Nikky) 60 mg PO BID [facility] Stop: 07/23/19 20:59 Last Admin: 06/25/19 07:54 Dose: 60 mg Documented by: Folic Acid (Folvite) [facility] [place] Stop: 07/24/19 08:59 Last Admin: 06/25/19 07:54 Dose: 1 mg Documented by: Furosemide (Lasix) 20 mg PO QAM [facility] Stop: 07/25/19 08:59 Last Admin: 06/25/19 07:54 Dose: 20 mg Documented by: Glucagon (Glucagen) 1 mg IM UD PRN; Protocol PRN Reason: Hypoglycemia Protocol Stop: 07/23/19 17:44 Glucose (Glucose 40%) 15 - 30 gm PO UD PRN; Protocol PRN Reason: Hypoglycemia Protocol Stop: 07/23/19 17:44 Glucose (Dex4 Glucose) 4 - 8 tabs PO UD PRN; Protocol PRN Reason: Hypoglycemia Protocol Stop: 07/23/19 17:44 Insulin Aspart (Novolog Flexpen) 0 units SC [facility] Stop: 07/23/19 20:59 Last Admin: 06/25/19 12:42 Dose: 9 units Documented by: Insulin Glargine (Lantus Solostar Pen) 0 units SC [facility]; Protocol Stop: 07/23/19 20:59 Last Admin: 06/24/19 20:29 Dose: 30 units Documented by: Isosorbide Mononitrate (Imdur Extended Rel) 60 mg PO [facility] Stop: 07/24/19 08:59 Metoprolol Tartrate (Lopressor) 75 mg PO BID [facility] Stop: 07/23/19 20:59 Last Admin: 06/25/19 07:53 Dose: 75 mg Documented by: Miscellaneous (Carbohydrates For Hypoglycemia) 15 - 30 gm PO UD PRN PRN Reason: Hypoglycemia Treatment Stop: 07/23/19 17:44 Last Admin: 06/23/19 14:22 Dose: 15 gm Documented by: Miscellaneous Information (Consult Glycemic Management Pharmacy) 1 ea N/A UD PRN PRN Reason: Consult Stop: 07/23/19 19:49 Nitroglycerin (Nitrostat) 0.4 mg SL Q5M PRN PRN Reason: Chest Pain Stop: 07/23/19 19:12 Pantoprazole Sodium (Protonix) 40 mg PO DAILY [facility] Stop: 07/24/19 08:59 Last Admin: 06/25/19 07:53 Dose: 40 mg Documented by: Polyethylene Glycol (Miralax Powder Packet) 17 gm PO QAM [facility] Stop: 07/24/19 08:59 Last Admin: 06/25/19 07:51 Dose: 17 gm Documented by: Potassium Chloride (Klor-Con M20) 20 meq PO QAM [facility] Stop: 07/24/19 08:59 Last Admin: 06/25/19 07:54 Dose: 20 meq Documented by: Risperidone (Risperdal M) 1 mg PO TID [facility] Stop: 07/24/19 13:59 Last Admin: 06/25/19 07:53 Dose: 1 mg Documented by: Senna/Docusate Sodium (Senokot S) 1 tab PO QAM [facility] Stop: 07/24/19 08:59 Last Admin: 06/25/19 07:52 Dose: 1 tab Documented by: Thiamine HCl (Vitamin B-1) 200 mg PO BID [facility] Stop: 07/23/19 20:59 Last Admin: 06/25/19 07:52 Dose: 200 mg Documented by: Topiramate (Topamax) 100 mg PO BID [facility] Stop: 07/23/19 20:59 Last Admin: 06/25/19 07:55 Dose: 100 mg Documented by: Tramadol HCl (Ultram) 50 mg PO Q6H PRN PRN Reason: pain Stop: 07/23/19 19:12 Last Admin: 06/25/19 03:26 Dose: 50 mg Documented by: Triamcinolone Acetonide (Kenalog 0.1%) 1 appln EXT TID [facility] Stop: 07/23/19 20:59 Last Admin: 06/25/19 07:55 Dose: 1 appln Documented by: (1) Psychotic disorder Psychosis type: other Qualified Code(s): F28 - Other psychotic disorder not due to a substance or known physiological condition
== END 2019-06-25 13:45 | DRG 880 ==
LOC: 2S 13:47 → 2N 06-24 13:33

== ENCOUNTER 2019-06-25 13:14 | Inpatient (IN) ==
[2019-06-25] MEDS ORDERED: ALUMINUM/MAGNESIUM SUSP 30 ML UDC PO PRN (14:03)
[2019-06-25] MEDS ORDERED: SODIUM CHLORIDE 0.65% NA SOLN 45 ML (OCEAN) PRN (14:03)
[2019-06-25] MEDS ORDERED: MAGNESIUM HYDROXIDE SUSP 30 ML UDC PO PRN (14:03)
[2019-06-25] MEDS ORDERED: BISMUTH SUBSALICYLATE PER ML OMNICELL CHARGE PO PRN (14:03)
[2019-06-25] MEDS ORDERED: NITROGLYCERIN SL 0.4 MG/TAB TAB SL PRN (14:16)
[2019-06-25] MEDS ORDERED: ACETAMINOPHEN 500 MG TAB PO PRN (14:16)
--- NOTE | 2019-06-25 14:33 | History & Physical ---
Date of Service June 25, 2019 Impression / Recommendations Impression 74-year-old male with a history of coronary artery disease status post CABG 1 month ago at [place] who presented with delusional disorder. He was hospitalized on the medical service first for CHF, then for multiple medical problems, and was seen by the psychiatry consult service on both hospitalizations. His family reports that he has been increasingly focused on delusions since February 2019, perseverating on them to the point that he was unable to function and his no longer feels safe at home with him. He had been prescribed citalopram for unclear reasons, and it has now been discontinued as he had some manic symptoms. He has been started on risperidone which was titrated to 1 mg 3 times daily, and appears to be having a good response. He has had a fairly extensive medical work-up, and will add lead levels due to his history of running a still and possibility of heavy metal contamination contributing to psychotic symptoms. He has also been having episodes of unresponsiveness best described as conversion reactions. we will need to expand the database and get collateral information from his family, and work on a discharge plan. He is stating unwillingness to return home to live with his , and would like [facility] [place]. Inpatient treatment is medically necessary due to the severity of symptoms and safety concerns of discharge. (1) Delusional disorder, somatic type: 06/25 -continue risperidone 1 mg 3 times daily. FLP from 06/06/2019 was within normal limits. Fasting glucose 158. -Extensive medical work-up of psychosis and neurological symptoms including: Head CT, brain MRI, EEG, prolactin, PTH, cortisol, RAÚL, RPR, Lyme IgG and IgM, HIV, hepatitis C, Neurology and orthopedic consultations. -Differential includes mood disorder (has displayed manic symptoms) and frontotemporal dementia. -Patient unable to reality test. Continue to offer support and strategies for distress tolerance. -Obtain collateral information and involve family as able. -Encourage patient to attend to participate in groups and therapy. Work on healthy coping skills and discharge safety plan. Present on Admission?: Yes (2) Conversion disorder: 06/25 -address psychosocial stressors, identify healthy coping skills, and provide reassurance and support. -Discussed with Dr. Aparicio, and patient has future unresponsive events, recommended vital signs, blood glucose, and if parameters are normal, contacting the hospitalist to evaluate the patient. -He was seen by orthopedics today, who recommended physical therapy for global weakness. PT consult ordered. Present on Admission?: Yes (3) Hypertension: Continue furosemide 20 mg daily and metoprolol 75 mg twice daily. Continue home dose of Imdur. -Follow-up with poultry eviscerator as an outpatient. Hypertension type: essential hypertension Qualified Code(s): I10 - Essential (primary) hypertension Present on Admission?: Yes (4) Alcohol abuse: History of alcohol abuse, no significant use in the past 3 years. Present on Admission?: Yes (5) Vitamin B12 deficiency: Vitamin B12 from 06/15/2019 was 219. Folate 4.16. Vitamin B 1 6. Continue vitamin B12 1000 mcg daily, folic acid 1 mg daily, and thiamine 200 mg twice daily. Present on Admission?: Yes (6) Diabetes mellitus, type 2: 06/25 -continue heart healthy, carb consistent diabetic diet, and insulin regimen per diabetic pharmacist. Diabetes mellitus longterm insulin use: with longterm use Diabetes mellitus complication status: with neurologic complications Diabetes mellitus complication detail: with polyneuropathy Qualified Code(s): E11.42 - Type 2 diabetes mellitus with diabetic polyneuropathy; Z79.4 - nursing home (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 Present on Admission?: Yes (7) Stage III chronic kidney disease: Present on Admission?: Yes (8) Code status needs review: Patient was DNR/DNI on the medical floor. He voices that he continues to want this. He expresses understanding of this, despite his psychosis. It was documented during other admissions that he was DNR/DNI. He has not been suicidal. Present on Admission?: Yes Risk Factors Assessment Male: Yes : Yes Do You Have Access To A Gun?: No Health Problems: Yes Mental Health Diagnoses: Yes Substance Use Disorders: Yes Previous Psychiatric Hospitalization: Yes Hopelessness: No Smoker: No Protective Factors Assessment : Yes Responsible for Young Children: No Employed: No Stable Relationships: No Psychiatric History Identifying Data EMANUEL GRANT is a 74-year-old M who currently lives in [place] with his , has a history of delusional parasitosis and conversion disorder, and was admitted on 06/25/19 13:47 on a 201 voluntary commitment for delusional parasitosis. He was initially admitted to the hospitalist service 06/14/2019 - 06/21/2019, was transferred to the [facility], but then transferred back to the hospitalist service 06/23/2019 after an episode of unresponsiveness. He has had a negative medical work-up and has been medically cleared and transferred back to the behavioral health unit today. Chief Complaint " Right on". History of Present Illness Patient has had a complicated hospital course; he was hospitalized 06/05/2019 - 06/10/2019 for CHF, during which time he was seen on the psychiatric consult service for delusional thoughts, but refused treatment. He was discharged home but returned to the ER 4 days later with a complaint of his head shrinking, caving in, and that he was coughing up bugs. He was again admitted to the hospitalist service, and seen on the psychiatry consult service the following day and diagnosed with delusional disorder. He had been reporting concerns that he had been exposed to damaging chemicals which were causing health problems, and had been focused on this off and on for the past 40 years, but an increase in his preoccupation over the past few months. He reported that his surgical scar was the point of entry for the bugs. 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 He was ultimately medically cleared 06/21/2019, and transferred to the behavioral health unit, and risperidone was increased to 1 mg twice daily due to ongoing delusional parasitosis. Citalopram was decreased and then discontinued as he appeared manic. He was hyperverbal, pressured, expansive, rotations with female staff, and inappropriate in groups. He was preoccupied with his delusions of infestation, picking at crumbs or lint and insisting that they were bugs. He expressed a desire to be discharged to a personal chcf following discharge. The following day, he had an episode of unresponsiveness, code purple was activated, and he was transferred back to the medical floor for additional work-up. His medical work-up of unresponsive spells has been negative and most likely diagnosis is thought to be conversion disorder. He had negative CTAs of the head and neck, head CT, and spine CT; brain MRI showed punctate 3 mm periventricular T2 hyperintense focus within the right parietal lobe indicating a small subacute infarct, which was thought to be unlikely to be playing a role in his symptoms. As he had foraminal narrowing and a bulging disc on cervical spine MRI, orthopedics was consulted, and felt that his weakness was global and recommended conservative care with outpatient physical therapy. Neurology was also consulted and thought his symptoms were likely due to conversion disorder, Wernicke-Korsakoff syndrome, or multiple vitamin B deficiencies. He had an EEG that was unremarkable. They recommended physical therapy and thiamine, folate, and multivitamin. He had a CT of the abdomen and pelvis due to complaints of flank pain, which showed moderate increase in colonic fecal load and a small pericardial effusion. He had a limited echo today which was negative for effusion. Furosemide was held due to acute kidney injury, which has since resolved. He continues to report leg weakness but has been able to ambulate to the toilet with minimal assistance. He continues to report that there are bugs crawling out of his skin. This morning, he reported that one arm and leg were becoming paralyzed, and that the left side of his head was "caving in." He was able to respond to directions, and although he reported that he had lost sensation, he was able to feel tactile stimuli. He initially stated he could not move his fingers, but then was able to move his fingers in response to commands. He said "here it comes," and then became unresponsive. His vital signs were normal, and BSG 150. He did not respond to sternal rub, but did pull his arm away when pressure was applied to the nailbed. The episode lasted approximately 15 minutes. On my assessment, he is seated at the bedside eating lunch. He states all of the symptoms from this morning's episode have fully resolved, and he was just able to ambulate to the bathroom and do his usual grooming activities without difficulty. He states mood is "really good," but continues to state he does not want to return home and live with his , "she's a nut, she don't want to talk to me, and I don't want to go home with her," and wants to go to [facility] in [place]. He states he has started the process and has talked to "Michael," but is not sure what needs to happen next to make the transition. He states he continues to deal with "bugs," and is convinced that he is infested. He states "I have warms, if I got any on the furniture, my would have a fit!" He makes several statements that his "cannot be trusted," but is unable to elaborate. He reports 5 separate episodes since April where he "felt paralyzed," several of which occurred during his current hospitalization. He denies feeling emotional or upset when these episodes occur, but per records, reported that his son whom he had not seen for 4 years, was visiting just prior to 1 of the episodes, and it was upsetting him. He reports a prodrome where "my head starts shrinking, caving in on me, I just go numb all over." He says he then "blacks out, and I can't move or talk." They last approximately 15 minutes, and symptoms then resolved. Past Psychiatric History Current Psychiatric Diagnosis: Unspecified psychotic disorder Outpatient Services: None Previous Psych Admissions: [facility] ? 15 to 20 years ago for psychosis. On this unit for 2 days over the weekend before being transferred to the hospitalist service after an episode of unresponsiveness. Do You Have Access To A Gun?: No History of Previous Suicide Attempt: No Past Medication Trials: Citalopram Past Head Trauma/Neuro History History of Concussion/Seizure: No Allergies Allergy/AdvReac Type Severity Reaction Status Date / Time morphine AdvReac Severe "STOPS MY Verified 06/14/19 08:08 HEART" hydromorphone [From Dilaudid] AdvReac Intermediate unresponsiv Verified 06/14/19 08:08 eness trazodone AdvReac Intermediate GI UPSET Verified 06/14/19 08:08 diazepam AdvReac Mild HALLUCINATE Verified 06/14/19 08:08 S propoxyphene AdvReac Mild DRUG Verified 06/14/19 08:08 INTOLERANCE Home Medications Home Medications Medication Instructions Recorded Confirmed Type pen needle, diabetic 31 gauge x #30 ea 12/03/18 06/14/19 Rx 5/16" nitroglycerin 0.4 mg sublingual 0.4 mg SL Q5M PRN #1 tab 02/05/19 06/25/19 History tablet metoprolol tartrate 75 mg tablet 75 mg PO BID #60 tab 05/30/19 06/25/19 Rx acetaminophen [Tylenol Extra 1,000 mg PO Q8H PRN 06/05/19 06/25/19 History Strength] polyethylene glycol 3350 [Miralax] 17 gm PO QAM 12/19/19 01/08/20 History sennosides-docusate sodium [Senna 1 tab PO QAM 06/05/19 06/25/19 History with Docusate Sodium] topiramate [Topamax] 100 mg PO BID 06/05/19 06/25/19 History tramadol [Ultram] 50 mg PO Q6H PRN 06/05/19 06/25/19 History atorvastatin 80 mg tablet 80 mg PO QAM #90 tab 06/12/19 06/25/19 Rx isosorbide mononitrate 60 mg 60 mg PO QAM #90 tab 06/12/19 06/25/19 Rx tablet,extended release 24 hr potassium chloride 20 mEq 20 meq PO QAM #90 tab 06/12/19 06/25/19 Rx tablet,extended release pantoprazole 40 mg PO DAILY 06/14/19 06/25/19 History aspirin [Ecotrin Low Strength] 81 mg PO DAILY #30 tab 06/21/19 06/25/19 Rx cyanocobalamin (vitamin B-12) 1,000 mcg PO DAILY #30 cap 06/21/19 06/25/19 Rx fexofenadine 60 mg PO BID #60 tab 06/21/19 06/25/19 Rx folic acid 1 mg PO QAM #30 tab 06/21/19 06/25/19 Rx thiamine HCl (vitamin B1) [Vitamin 200 mg PO BID #120 tab 06/21/19 06/25/19 Rx B-1] triamcinolone acetonide 1 applic EXT TID 7 Days #30 gm 06/21/19 06/25/19 Rx famotidine 40 mg PO QAM 1 Days #1 tab 06/23/19 06/25/19 Rx Lantus Solostar U-100 Insulin 30 unit SUBCUT HS 06/25/19 06/25/19 History furosemide 20 mg PO QAM #30 tab 06/25/19 06/25/19 Rx risperidone 1 mg PO TID 06/25/19 06/25/19 History Family History Family History of: Alcoholism/Drug Abuse ("Uncles were all alcoholics") Alcohol History Hx of Alcohol Use Over the Past 12 Months: No Denies significant alcohol use in the past 3 years. Reports previous consumption of a 5th of whiskey and a case of beer daily as well as longstanding excessive alcohol intake including moonshine from young age as per HPI.. Pt denies history of formal substance abuse treatment. Smoking Use Have You Smoked or Used Tobacco Products in the Last 30 Days: No tobacco type: cigarettes and cigars Smoking Status: Former smoker Substance History Hx of Prescription Med Misuse Over the Past 12 Months: No Hx of Over the Counter Med Misuse Over the Past 12 Months: No Hx of Inhalent Misuse Over the Past 12 Months: No Hx of Organic Substance Use Over the Past 12 Months: No Hx of Illegal Substances/Street Drug Use Over Past 12 Months: No Personal History Living Arrangements: Home Living Arrangements Comments: With in [place] Childhood: 4 siblings, 2 brothers and 2 sisters. He is the middle child. Highest Grade Completed: G.E.D. Highest Grade Completed Comment: Quit school in 10th grade. Got GED 12 years later. Employment Status: Retired Marital Status: Number Of Children: 3 Beliefs That Will Affect Care: None Current Legal Problems: No Hx Traumatic Life Events: No Patient History Social History Preferred Language: [place] Communication Ability: Effective Visual Impairment: No Limitations Potato Chip Fryer Required: No Beliefs That Will Affect Care: None marital status: marital status details: 3 children Current Living Situation: Spouse current occupational status: retired other: worked -[employer] ([employer]); 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 ; Second Hand Exposure: No ; Hx Alcohol Use: No Hx Substance Use: No Review of Systems Review of Systems: All systems reviewed & are unremarkable except as noted in HPI & below Physical Exam Psychiatric: Orientation: alert and cooperative Apperance: appropriately dressed, appropriately groomed and appeared stated age Wearing a hospital gown, hair is neatly combed, good hygiene. Seated in no acute distress, eating lunch. Eye Contact: good eye contact Motor Behavior: steady gait and station and no abnormal motor movements Speech: normal rate/rhythm/volume of speech Expansive "Great!" Mildly loose Thought Content: + delusions (Of insect infestation) Suicidal Thoughts: denies suicidal thoughts Homicidal Thoughts: denies homicidal thoughts Hallucinations: + visual hallucinations (Identifies lint and crumbs as bugs); no auditory hallucinations Cognition: attention grossly intact and language grossly intact Insight: + impaired insight Judgement: + impaired judgement Results & Data Current Inpatient Medications Current Inpatient Medications: Current Inpatient Medications Acetaminophen (Tylenol) 650 mg PO Q4H PRN PRN Reason: Headache or Minor Fever Stop: 07/25/19 14:02 Acetaminophen (Tylenol) 1,000 mg PO Q8H PRN PRN Reason: Pain Stop: 07/25/19 14:15 Al Hydrox/Mg Hydrox/Simethicone (Maalox) 30 ml PO Q4H PRN PRN Reason: GI Upset Stop: 07/25/19 14:02 Aspirin (Ecotrin Ectab) 81 mg PO DAILY [facility] Stop: 07/26/19 08:59 Atorvastatin Calcium (Lipitor) 80 mg PO QAM [facility] Stop: 07/26/19 08:59 Bismuth Subsalicylate (Kaopectate) 15 ml PO PRN PRN PRN Reason: Loose Stool Stop: 07/25/19 14:02 Famotidine (Pepcid) 40 mg PO QAM [facility] Stop: 07/26/19 08:59 Fexofenadine HCl (Nikky) 60 mg PO BID [facility] Stop: 07/25/19 20:59 Folic Acid (Folvite) 1 mg PO QAM [facility] Stop: 07/26/19 08:59 Furosemide (Lasix) 20 mg PO QAM [facility] Stop: 07/26/19 08:59 Hydroxyzine HCl (Vistaril) 50 mg PO HSZ PRN PRN Reason: Insomnia Stop: 07/25/19 14:02 Hydroxyzine HCl (Vistaril) 25 mg PO Q4H PRN PRN Reason: Anxiety Stop: 07/25/19 14:02 Insulin Glargine (Lantus Solostar Pen) 30 units SQ HS [facility] Stop: 07/25/19 21:59 Isosorbide Mononitrate (Imdur Extended Rel) 60 mg PO QAM [facility] Stop: 07/26/19 08:59 Magnesium Hydroxide (Milk Of Magnesia) 30 ml PO DAILY PRN PRN Reason: Constipation Stop: 07/25/19 14:02 Metoprolol Tartrate (Lopressor) 75 mg PO BID [facility] Stop: 07/25/19 20:59 Nitroglycerin (Nitrostat) 0.4 mg SL Q5M PRN PRN Reason: Chest Pain Stop: 07/25/19 14:15 Non-Formulary Medication (Cyanocobalamin (Vitamin B-12)) 1,000 mcg PO DAILY [facility] Stop: 07/26/19 08:59 Pantoprazole Sodium (Protonix) 40 mg PO DAILY NIKOLAI Stop: 07/26/19 08:59 Polyethylene Glycol (Miralax Powder Packet) 17 gm PO QAM [facility] Stop: 07/26/19 08:59 Potassium Chloride (Klor-Con M20) 20 meq PO QAM [facility] Stop: 07/26/19 08:59 Risperidone (Risperdal M) 1 mg PO TID [facility] Stop: 07/25/19 20:59 Senna/Docusate Sodium (Senokot S) 1 tab PO QAM [facility] Stop: 07/26/19 08:59 Sodium Chloride ([place] Nasal) 1 - 2 sprays NA PRN PRN PRN Reason: Nasal Dryness/Congestion Stop: 07/25/19 14:02 Thiamine HCl (Vitamin B-1) 200 mg PO BID [facility] Stop: 07/25/19 20:59 Topiramate (Topamax) 100 mg PO BID [facility] Stop: 07/25/19 20:59 Tramadol HCl (Ultram) 50 mg PO Q6H PRN PRN Reason: pain Stop: 07/25/19 14:15 Triamcinolone Acetonide (Kenalog 0.1%) 1 appln EXT TID [facility] Stop: 07/25/19 20:59
[2019-06-25] MEDS ORDERED: GLUCAGON FOR INJ 1 MG VIAL IM PRN (14:45)
[2019-06-25] MEDS ORDERED: GLUCOSE 10 TABS/TUBE PO PRN (14:45)
[2019-06-25] MEDS ORDERED: CARBOHYDRATES FOR HYPOGLYCEMIA PO PRN (14:45)
[2019-06-25] MEDS ORDERED: DEXTROSE 50% 50 ML SYRINGE IV PRN (14:45)
[2019-06-25] MEDS ORDERED: GLUCOSE 40% GEL 15 GM TUBE PO PRN (14:45)
[2019-06-25] MEDS: INSULIN ASPART 100 UNITS/ML 3 ML PEN SC SCH ×2 (18:28→21:54)
[2019-06-25] MEDS: FEXOFENADINE 60 MG TAB PO SCH (21:39)
[2019-06-25] MEDS: METOPROLOL TARTRATE 25 MG TAB PO SCH (21:40)
[2019-06-25] MEDS: TOPIRAMATE 100 MG TAB PO SCH (21:41)
[2019-06-25] MEDS: RISPERIDONE ODT 1MG PO SCH (21:41)
[2019-06-25] MEDS: THIAMINE HCL 100 MG TAB PO SCH (21:42)
[2019-06-25] MEDS: TRIAMCINOLONE ACET 0.1% OINT 15 GM TUBE EXT SCH (21:44)
[2019-06-25] MEDS: INSULIN GLARGINE SOLOSTAR 100 UNITS/ML 3 ML PEN SQ SCH (21:45)
[2019-06-26] MEDS ORDERED: PHARMACY GLYCEMIC MGMT CONSULT PRN (09:11)
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
[2019-06-26] MEDS: INSULIN ASPART 100 UNITS/ML 3 ML PEN SC SCH ×4 (09:27→21:40)
[2019-06-26] MEDS: ASPIRIN 81 MG ECTAB PO SCH (09:28)
[2019-06-26] MEDS: FEXOFENADINE 60 MG TAB PO SCH ×2 (09:28→21:32)
[2019-06-26] MEDS: ISOSORBIDE MONO EXTENDED REL 60 MG TABCR PO SCH (09:29)
[2019-06-26] MEDS: FOLIC ACID 1 MG TAB PO SCH (09:29)
[2019-06-26] MEDS: TRIAMCINOLONE ACET 0.1% OINT 15 GM TUBE EXT SCH ×3 (09:30→21:36)
[2019-06-26] MEDS: POTASSIUM CHLORIDE 20 MEQ TABCR PO SCH (09:31)
[2019-06-26] MEDS: ATORVASTATIN 40 MG TAB PO SCH (09:31)
[2019-06-26] MEDS: FUROSEMIDE 20 MG TAB PO SCH (09:31)
[2019-06-26] MEDS: FAMOTIDINE 40 MG TABLET PO SCH (09:32)
[2019-06-26] MEDS: POLYETHYLENE (MIRALAX) 17 GM PACK PO SCH (09:32)
[2019-06-26] MEDS: METOPROLOL TARTRATE 25 MG TAB PO SCH ×2 (09:32→21:33)
[2019-06-26] MEDS: PANTOprazole 40 MG TAB PO SCH (09:33)
[2019-06-26] MEDS: RISPERIDONE ODT 1MG PO SCH (09:33)
[2019-06-26] MEDS: THIAMINE HCL 100 MG TAB PO SCH ×2 (09:34→21:35)
[2019-06-26] MEDS: TOPIRAMATE 100 MG TAB PO SCH ×2 (09:34→21:34)
[2019-06-26] MEDS: DOCUSATE SODIUM/SENNA 50/8.6MG TAB PO SCH (09:34)
[2019-06-26] MEDS: CYANOCOBALAMIN 500 MCG TABLET (VITAMIN B-12) PO SCH (09:35)
[2019-06-26] MEDS ORDERED: EUCERIN CR 120 GM JAR EXT PRN (10:34)
--- NOTE | 2019-06-26 15:06 | Pharmacy Report ---
Pharmacy Glycemic Short Note 2 - Date of Service June 26, 2019 - Glycemic Short BSG Results (Last 24 hours): 06/25/19 06/26/19 06/26/19 16:58 08:51 12:52 POC Glucose 167 H 212 H 169 H OUTPATIENT ANTIDIABETIC REGIMEN: * Lantus 40-60 units HS * Humalog 10-15 units prior to meals ASSESSMENT: * Patient received total 53 units of insulin yesterday of which 30 units was basal and 23 units bolus. * Fasting BSG was elevated at 212 today. Novolog correction factor and carb ratio were tightened further today. * Will continue with same dose of basal insulin for now. PLAN FOR INPATIENT GLYCEMIC CONTROL: * Basal insulin: continue * Lantus 25 or 30 units SQ HS based on scale. * Bolus insulin: tightened * NovoLog per scale ACHS or Q6hrs while NPO * Goal Range: Low 110 mg/dL - High 140 mg/dL * Correction Factor: 25 mg/dL/unit * Nutritional / Prandial insulin per carb ratio of 1 unit per 7 grams CHO consumed PLAN FOR DISCHARGE: * HbA1c = 6.5% on 05/15/19 * Goal A1c less than 7%. * Home dose of Lantus was reportedly causing hypoglycemia for patient. Recommend decreasing Lantus dose to 25 units daily at bedtime and use Humalog before meals on a sliding scale based on BSGs.
[2019-06-26] MEDS: INSULIN GLARGINE SOLOSTAR 100 UNITS/ML 3 ML PEN SQ SCH (21:39)
[2019-06-26] MEDS ORDERED: risperiDONE 2 MG TABLET PO SCH (22:00)
[2019-06-27] MEDS ORDERED: risperiDONE 1 MG TABLET PO SCH (09:00)
[2019-06-27] MEDS: FEXOFENADINE 60 MG TAB PO SCH ×2 (09:48→21:22)
[2019-06-27] MEDS: POTASSIUM CHLORIDE 20 MEQ TABCR PO SCH (09:48)
[2019-06-27] MEDS: ATORVASTATIN 40 MG TAB PO SCH (09:48)
[2019-06-27] MEDS: FUROSEMIDE 20 MG TAB PO SCH (09:48)
[2019-06-27] MEDS: FOLIC ACID 1 MG TAB PO SCH (09:48)
[2019-06-27] MEDS: TRIAMCINOLONE ACET 0.1% OINT 15 GM TUBE EXT SCH ×3 (09:48→21:33)
[2019-06-27] MEDS: ISOSORBIDE MONO EXTENDED REL 60 MG TABCR PO SCH (09:48)
[2019-06-27] MEDS: ASPIRIN 81 MG ECTAB PO SCH (09:48)
[2019-06-27] MEDS: DOCUSATE SODIUM/SENNA 50/8.6MG TAB PO SCH (09:49)
[2019-06-27] MEDS: POLYETHYLENE (MIRALAX) 17 GM PACK PO SCH (09:49)
[2019-06-27] MEDS: PANTOprazole 40 MG TAB PO SCH (09:49)
[2019-06-27] MEDS: TOPIRAMATE 100 MG TAB PO SCH ×2 (09:49→21:22)
[2019-06-27] MEDS: CYANOCOBALAMIN 500 MCG TABLET (VITAMIN B-12) PO SCH (09:49)
[2019-06-27] MEDS: METOPROLOL TARTRATE 25 MG TAB PO SCH ×2 (09:49→21:20)
[2019-06-27] MEDS: FAMOTIDINE 40 MG TABLET PO SCH (09:49)
[2019-06-27] MEDS: THIAMINE HCL 100 MG TAB PO SCH ×2 (09:49→21:21)
[2019-06-27] MEDS: INSULIN ASPART 100 UNITS/ML 3 ML PEN SC SCH ×5 (09:52→21:25)
[2019-06-27] MEDS ORDERED: HALOPERIDOL LACTATE 5 MG/ML 1 ML VIAL IM STA (10:29)
[2019-06-27] MEDS ORDERED: LORazepam 2 MG/ML VIAL (IM USE) IM STA (10:30)
[2019-06-27] MEDS ORDERED: LORazepam 2 MG/ML VIAL (IM USE) ONE (10:33)
[2019-06-27] MEDS ORDERED: HALOPERIDOL LACTATE 5 MG/ML 1 ML VIAL ONE (10:33)
[2019-06-27] MEDS ORDERED: HALOPERIDOL LACTATE 5 MG/ML 1 ML VIAL IM PRN (14:45)
[2019-06-27] MEDS ORDERED: LORazepam 2 MG/ML VIAL (IM USE) IM PRN (14:46)
[2019-06-27] MEDS ORDERED: haloperidoL 5 MG TAB PO PRN (14:47)
[2019-06-27] MEDS ORDERED: LORazepam 1 MG TAB PO PRN (14:48)
[2019-06-27 15:50] LABS: Sample Type VENOUS
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
--- NOTE | 2019-06-27 16:37 | Psychiatric Progress Note ---
Date of Service June 27, 2019 Impression / Recommendations Impression 74-year-old male with a history of coronary artery disease status post CABG 1 month ago at [place] who presented with delusional disorder. He was hospitalized on the medical service first for CHF, then for multiple medical problems, and was seen by the psychiatry consult service on both hospitalizations. His family reports that he has been increasingly focused on delusions since February 2019, perseverating on them to the point that he was unable to function and his no longer feels safe at home with him. He had been prescribed citalopram for unclear reasons, and it has now been discontinued as he had some manic symptoms. He has been started on risperidone which was titrated to 1 mg 3 times daily, and appears to be having a good response. He has had a fairly extensive medical work-up, and will add lead levels due to his history of running a still and possibility of heavy metal contamination contributing to psychotic symptoms. He has also been having episodes of unresponsiveness best described as conversion reactions. we will need to expand the database and get collateral information from his family, and work on a discharge plan. He is stating unwillingness to return home to live with his , and would like to go to [facility] in [place]. Inpatient treatment remains medically necessary due to the severity of symptoms and safety concerns of discharge. Although the patient's condition seems to have been responding favorably to risperidone 3 mg daily in divided dosages, on 06/27/2019 he escalated to the point that he began screaming, cursing, and threatening to seriously physically harm staff and destroy property on the unit and "burn" the hospital. He responded favorably to treatment with stat Haldol and lorazepam. However, the patient remains delusional. 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 However, given the patient's current emotional lability, we are reluctant to use these medications at this point because they may be reactive. He slept suboptimally on the night of , and because of his persistent psychotic symptoms and emotional lability we are increasing his dose of risperidone to 1 mg twice a day and 3 mg at bedtime. (1) Delusional disorder, somatic type: 06/25 -continue risperidone 1 mg 3 times daily. FLP from 06/06/2019 was within normal limits. Fasting glucose 158. -Extensive medical work-up of psychosis and neurological symptoms including: Head CT, brain MRI, EEG, prolactin, PTH, cortisol, RAÚL, RPR, Lyme IgG and IgM, HIV, hepatitis C, Neurology and orthopedic consultations. -Differential includes mood disorder (has displayed manic symptoms) and frontotemporal dementia. -Patient unable to reality test. Continue to offer support and strategies for distress tolerance. -Obtain collateral information and involve family as able. -Encourage patient to attend to participate in groups and therapy. Work on healthy coping skills and discharge safety plan. 06/26 - continue risperidone and consolidate to 1mg qam and 2mg hs (which may also help with sleep). -Patient very poorly responsive to attempts to reframe his concerns as being influenced by psychological distress, and absolutely unable to reality test. -Recommend family meeting with his and daughter once he is able to tolerate it. is reportedly currently medically ill and quite stressed, and is he has been threatening her, we will postpone this for now. -Refer for outpatient case management services and explore housing options, as he is requesting supportive living referral. 06/27 -The patient continues to harbor somatic delusions, namely delusional parasitosis. It is recognized that this disorder, like all delusional disorders, tend to respond poorly to treatment. In this case, it will be important to avoid persistent reality testing, and the treatment team and I have discussed the fact that while we can and should provide reality testing when the patient ASCUS, we should not subsequently engage in any form of what might be considered a debate or attempt to convince. (2) Conversion disorder: 06/25 -address psychosocial stressors, identify healthy coping skills, and provide reassurance and support. -Discussed with Dr. Aparicio, and patient has future unresponsive events, recommended vital signs, blood glucose, and if parameters are normal, contacting the hospitalist to evaluate the patient. -He was seen by orthopedics today, who recommended physical therapy for global weakness. PT consult ordered. 06/27 -The patient tells us that he feels that he is having transient ischemic attacks, and refers to his periods of paralysis and confusion by that name. -In addition to a conversion disorder, it is possible that the patient is experiencing prolonged adverse effects associated with general anesthesia or, as the patient suggests, brief transient ischemic attacks, although as described, these episodes are not typically consistent with TIAs. (3) Eczematous dermatitis: 06/26 -reviewed dermatology note from 06/04/[address] Mac; patient had last been seen in 03/2019, reported multiple episodes of itching, burning, irritated areas of skin, which had previously responded to IM Kenalog. He received another injection of IM Kenalog, was diagnosed with eczematous dermatitis, and appropriate bathing practices were reviewed. Daily moisturization with Cetaphil cream was recommended, and avoidance of applying anything else to the skin. -Patient has been receiving triamcinolone topically once daily here. Will add Eucerin cream as skin appears dry and irritated. No signs of infection or parasites, although he has multiple areas of excoriation on his lower and upper extremities, face, and neck. 06/27 -As previously noted, the patient tends to draw our attention to patches of irritated skin and eczematous dermatitis, and refer to the associated skin "flaking" as constituting worms or "bugs" that he believes is crawling from his skin. He also experiences tingling and paresthesias that also seem to be contributing to his belief that he is contaminated with parasites. This is not a typical in cases of delusional parasitosis. -Treating the patient's current condition is important within the context of his associated psychiatric complaints. (4) Fracture of left distal radius: 06/26 -appreciate orthopedic recommendations; cast remains in place, but patient asking to have it removed. (5) Hypertension: Continue furosemide 20 mg daily and metoprolol 75 mg twice daily. Continue home dose of Imdur. -Follow-up with [facility] as an outpatient. (6) Alcohol abuse: History of alcohol abuse, no significant use in the past 3 years. (7) Vitamin B12 deficiency: Vitamin B12 from 06/15/2019 was 219. Folate 4.16. Vitamin B 1 6. Continue vitamin B12 1000 mcg daily, folic acid 1 mg daily, and thiamine 200 mg twice daily. (8) Diabetes mellitus, type 2: 06/25 -continue heart healthy, carb consistent diabetic diet, and insulin regimen per diabetic pharmacist. (9) Stage III chronic kidney disease: (10) Code status needs review: Patient was DNR/DNI on the medical floor. He voices that he continues to want this. He expresses understanding of this, despite his psychosis. It was documented during other admissions that he was DNR/DNI. He has not been suicidal. Risk Factors Assessment Male: Yes : Yes Do You Have Access To A Gun?: No Health Problems: Yes Mental Health Diagnoses: Yes Substance Use Disorders: Yes Previous Psychiatric Hospitalization: Yes Hopelessness: No Smoker: No Protective Factors Assessment : Yes Responsible for Young Children: No Employed: No Stable Relationships: No Interval History Identifying Information EMANUEL GRANT is a 74-year-old M who currently lives in [place] with his , has a history of delusional parasitosis and conversion disorder, and was admitted on 06/25/19 13:47 on a 201 voluntary commitment for delusional parasitosis. He was initially admitted to the hospitalist service 06/14/2019 - 06/21/2019, was transferred to the U, but then transferred back to the hospitalist service 06/23/2019 after an episode of unresponsiveness. He had a negative medical work-up and was been medically cleared and transferred back to the behavioral health unit 06/25/2019. Chief Complaint " I got worms crawling out of my skin. Worms. Bugs. Just look under my cast you will see them. The other doctor saw them!". Review of Systems Sleep Information Total Hours of Sleep: 5 Meal Information Percent Meal Consumed - Breakfast: 100 Percent Meal Consumed - Lunch: 0 Percent Meal Consumed - Dinner: 100 Subjective Subjective Patient was seen & assessed and interval progress reviewed with treatment team. I met with the patient individually several times today in order to assess his current mental status, evaluate his response to treatment, discussed any necessary changes in his treatment regimen with the patient, and address issues, questions and concerns that may arise. During my first encounter with the patient today he was extremely agitated and threatening. He was upset because he firmly believes that he has been infested with worms and bugs that he believes crawl out of his skin. Within this context, the patient was showing various staff members what he considers to be "proof" of the worms, and when the staff said that they could not see what he was talking about and felt that he may be misinterpreting symptoms of dry skin and dermal flaking with "bugs" and "worms," he became progressively more paranoid, accused staff of conspiring against him and attempting to "Make [him] think [he is] crazy." At one point, when I began to discuss various treatment options with the patient he began screaming "Fuck YOU!" Later, I was able to help him regain composure by talking to him about his admiration for the late country Vidiowiki jackson, Cristofer Fang, and his late , Susanna Lynn. The patient insists that he knew both famous people and saying with Cristofer Fang. I turned the patient's radio to a [employer] station, and he remained quite emotionally labile, but was able to be redirected. Initially the Coming up is his anger towards his of 55 years. However, when redirected to talk about "the good times" when "the kids were little," he was able to smile and talk about how happy he had been at one time with his young family. Because of the patient's florid psychosis and psychotic agitation he was treated with intramuscular injections of haloperidol 5 mg and lorazepam 1 mg. He initially objected, but after the reasons for the medications were explained to him several times, he voluntarily rolled over on his left side and allowed the nurse to give him the intramuscular injection without him struggling, and without any need for restraint. Later in the day, I met with the patient to debrief him and to reassess his condition following the above referenced event and clinical intervention. He acknowledges that he was still upset that he seems not to be believed by staff when it comes to his complaints of parasitosis, but he also was able to say that he regretted making threats and also was able to say that he understands that staff has his best interest at heart. We talked about the various treatment interventions that may be helpful. He does appear to be responsive to haloperidol, in terms of ef fectively treating his paranoid delusional beliefs. The patient also was able to tell me that he enjoys participating in group and activity therapies and ask if he could be permitted to participate again, despite the outburst earlier in the day. We agreed that his condition had improved to the degree that he would be able to do so, and the patient was observed participating fairly appropriately and the next available group. Physical Exam Psychiatric Orientation: alert and oriented x 3 Apperance: + disheveled Eye Contact: + poor eye contact Motor Behavior: + psychomotor agitation Speech: + loud speech Affect: + labile affect Mood: + angry mood Thought Process: + concrete thought process Thought Content: + delusions (As described above) Suicidal Thoughts: denies suicidal thoughts The patient reported homicidal thoughts today. Specifically, he threatened to The patient does not appear to be experiencing hallucinations, but, are assumption is that because of his skin condition he experiences tactile illusions that are being interpreted as parasitosis Cognition: recent memory grossly intact and remote memory grossly intact Estimated Intelligence: + below average estimated intelligence Insight: + poor insight Judgement: + poor judgement Vital Signs (Past 24 Hours) Last Vital Signs Temp 36.7 C 06/27/19 06:45 Pulse 96 H 06/27/19 10:13 Resp 18 06/27/19 06:45 BP 112/69 06/27/19 10:13 Pulse Ox 97 06/26/19 21:30 Results & Data Laboratory Results Laboratory Results - last 24 hr 06/26/19 06/26/19 06/26/19 08:56 17:03 20:59 POC Glucose 143 H 131 H Lead Sample Type VENOUS Lead 2 06/27/19 06/27/19 06/27/19 08:40 13:08 14:37 POC Glucose 163 H 154 H 139 H Lead Sample Type Lead Current Inpatient Medications Current Inpatient Medications: Current Inpatient Medications Acetaminophen (Tylenol) 650 mg PO Q4H PRN PRN Reason: Headache or Minor Fever Stop: 07/25/19 14:02 Al Hydrox/Mg Hydrox/Simethicone (Maalox) 30 ml PO Q4H PRN PRN Reason: GI Upset Stop: 07/25/19 14:02 Aspirin (Ecotrin Ectab) 81 mg PO DAILY [facility] Stop: 07/26/19 08:59 Last Admin: 06/27/19 09:48 Dose: 81 mg Documented by: Atorvastatin Calcium (Lipitor) 80 mg PO QAM NIKOL[facility] Stop: 07/26/19 08:59 Last Admin: 06/27/19 09:48 Dose: 80 mg Documented by: Bismuth Subsalicylate (Kaopectate) 15 ml PO PRN PRN PRN Reason: Loose Stool Stop: 07/25/19 14:02 Cyanocobalamin (Vitamin B-12) 1,000 mcg PO DAILY [facility] Stop: 07/26/19 08:59 Last Admin: 06/27/19 09:49 Dose: 1,000 mcg Documented by: Dextrose (Dextrose 50%) 25 - 50 ml IV UD PRN; Protocol PRN Reason: Hypoglycemia Protocol Stop: 07/25/19 14:44 [facility]ot[facility] ([facility]cid) [facility] [place]: 07/26/19 08:59 Last Admin: 06/27/19 09:49 Dose: 40 mg Documented by: Fexofenadine HCl (Nikky) 60 mg PO BID [facility] Stop: 07/25/19 20:59 Last Admin: 06/27/19 09:48 Dose: 60 mg Documented by: Folic Acid (Folvite) 1 mg PO [facility] Stop: 07/26/19 08:59 Last Admin: 06/27/19 09:48 Dose: 1 mg Documented by: Furosemide (Lasix) 20 mg PO [facility] Stop: 07/26/19 08:59 Last Admin: 06/27/19 09:48 Dose: 20 mg Documented by: Glucagon (Glucagen) 1 mg IM UD PRN; Protocol PRN Reason: Hypoglycemia Protocol Stop: 07/25/19 14:44 Glucose (Glucose 40%) 15 - 30 gm PO UD PRN; Protocol PRN Reason: Hypoglycemia Protocol Stop: 07/25/19 14:44 Glucose (Dex4 Glucose) 4 - 8 tabs PO UD PRN; Protocol PRN Reason: Hypoglycemia Protocol Stop: 07/25/19 14:44 Haloperidol (Haldol) 2.5 mg PO Q4H PRN PRN Reason: Agitation Stop: 07/27/19 14:46 Haloperidol Lactate (Haldol) 5 mg IM Q6H PRN PRN Reason: Agitation Stop: 07/27/19 14:44 Hydroxyzine HCl (Vistaril) 50 mg PO HSZ PRN PRN Reason: Insomnia Stop: 07/25/19 14:02 Hydroxyzine HCl (Vistaril) 25 mg PO Q4H PRN PRN Reason: Anxiety Stop: 07/25/19 14:02 Insulin Aspart (Novolog Flexpen) 0 units SC [facility] Stop: 07/25/19 17:14 Last Admin: 06/27/19 15:38 Dose: 8 units Documented by: Insulin Glargine (Lantus Solostar Pen) 0 units SQ [facility]; Protocol Stop: 07/25/19 21:59 Last Admin: 06/26/19 21:39 Dose: 25 units Documented by: Isosorbide Mononitrate (Imdur Extended Rel) 60 mg [facility] [place] Stop: 07/26/19 08:59 Last Admin: 06/27/19 09:48 Dose: 60 mg Documented by: Lorazepam (Ativan) 1 mg IM Q6H PRN PRN Reason: Agitation Stop: 07/27/19 14:59 Lorazepam (Ativan) 1 mg PO Q6H PRN PRN Reason: Agitation Stop: 07/27/19 14:47 Magnesium Hydroxide (Milk Of Magnesia) 30 ml PO DAILY PRN PRN Reason: Constipation Stop: 07/25/19 14:02 Metoprolol Tartrate (Lopressor) 75 mg PO BID [facility] Stop: 07/25/19 20:59 Last Admin: 06/27/19 09:49 Dose: 75 mg Documented by: Miscellaneous (Carbohydrates For Hypoglycemia) 15 - 30 gm PO UD PRN PRN Reason: Hypoglycemia Treatment Stop: 07/25/19 14:44 Miscellaneous Information (Consult Glycemic Management Pharmacy) 1 ea N/A UD PRN PRN Reason: Consult Stop: 07/26/19 09:10 Multi-Ingredient Cream (Hydrocerin) 1 appln EXT Q8H PRN PRN Reason: dry skin Stop: 07/26/19 10:33 Nitroglycerin (Nitrostat) 0.4 mg SL Q5M PRN PRN Reason: Chest Pain Stop: 07/25/19 14:15 Pantoprazole Sodium (Protonix) 40 mg PO DAILY [facility] Stop: 07/26/19 08:59 Last Admin: 06/27/19 09:49 Dose: 40 mg Documented by: Polyethylene Glycol (Miralax Powder Packet) 17 gm PO [facility] Stop: 07/26/19 08:59 Last Admin: 06/27/19 09:49 Dose: 17 gm Documented by: Potassium Chloride (Klor-Con M20) 20 meq PO QAM [facility] Stop: 07/26/19 08:59 Last Admin: 06/27/19 09:48 Dose: 20 meq Documented by: Risperidone (Risperdal) 1 mg PO [facility] Stop: 07/27/19 08:59 Last Admin: 06/27/19 09:49 Dose: 1 mg Documented by: Risperidone (Risperdal) 2 mg PO HS [facility] Stop: 07/26/19 21:59 Last Admin: 06/26/19 21:35 Dose: 2 mg Documented by: Senna/Docusate Sodium (Senokot S) 1 tab PO QAM [facility] Stop: 07/26/19 08:59 Last Admin: 06/27/19 09:49 Dose: 1 tab Documented by: Sodium Chloride (Perkins Nasal) 1 - 2 sprays NA PRN PRN PRN Reason: Nasal Dryness/Congestion Stop: 07/25/19 14:02 Thiamine HCl (Vitamin B-1) 200 mg PO BID [facility] Stop: 07/25/19 20:59 Last Admin: 06/27/19 09:49 Dose: 200 mg Documented by: Topiramate (Topamax) 100 mg PO BID [facility] Stop: 07/25/19 20:59 Last Admin: 06/27/19 09:49 Dose: 100 mg Documented by: Tramadol HCl (Ultram) 50 mg PO Q6H PRN PRN Reason: pain Stop: 07/25/19 14:15 Triamcinolone Acetonide (Kenalog 0.1%) 1 appln EXT TID [facility] Stop: 07/25/19 20:59 Last Admin: 06/27/19 14:18 Dose: Not Given Documented by: Mental Health & Subst Abuse Tx Therapist Name of Therapist: denies Oil Tanker Captain Name of Oil Tanker Captain: denies Post Discharge Appointments Primary Care Physician Name Of Family Doctor: Fox Moran Contact Information Discharge Discharge Address: [address] [place] [address] (1) Diabetes mellitus, type 2 Diabetes mellitus complication detail: with polyneuropathy Diabetes mellitus complication status: with neurologic complications Diabetes mellitus senior living insulin use: with emt intermediate use Qualified Code(s): E11.42 - Type 2 diabetes mellitus with diabetic polyneuropathy; 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
--- NOTE | 2019-06-27 17:49 | Orthopedic Consultation ---
Date of Consultation Tian is a 74 year old male who was seen today for cast removal post left distal radius fracture suffered in mid April 2019. Patient is excited to have his cast removed today. He has not experienced any pain while in the cast. He denies any numbness or tingling in his left hand. He has no other complaints today. June 27, 2019 Assessment & Plan (1) Fracture of left distal radius: Patient's cast was removed today. We recommended patient to apply lotion on his left hand to help moisture his skin to eliminate his post cast skin sloughing. We ordered AP and lateral X-rays of his left wrist today to evaluate his fracture healing. We also ordered patient Physical Therapy to work on ROM and strengthening of his left wrist. He can follow up in the office on an as needed basis. History of Present Illness Attending Physician: Caitlin Robles MD Allergies Allergy/AdvReac Type Severity Reaction Status Date / Time morphine AdvReac Severe "STOPS MY Verified 06/14/19 08:08 HEART" hydromorphone [From Dilaudid] AdvReac Intermediate unresponsiv Verified 06/14/19 08:08 eness trazodone AdvReac Intermediate GI UPSET Verified 06/14/19 08:08 diazepam AdvReac Mild HALLUCINATE Verified 06/14/19 08:08 S propoxyphene AdvReac Mild DRUG Verified 06/14/19 08:08 INTOLERANCE Home Medications Home Medications Medication Instructions Recorded Confirmed Type pen needle, diabetic 31 gauge x #30 ea 12/03/18 06/14/19 Rx 5/16" nitroglycerin 0.4 mg sublingual 0.4 mg SL Q5M PRN #1 tab 02/05/19 06/25/19 History tablet metoprolol tartrate 75 mg tablet 75 mg PO BID #60 tab 05/30/19 06/25/19 Rx acetaminophen [Tylenol Extra 1,000 mg PO Q8H PRN 06/05/19 06/25/19 History Strength] polyethylene glycol 3350 [Miralax] 17 gm PO QAM 06/05/19 06/25/19 History sennosides-docusate sodium [Senna 1 tab PO QAM 06/05/19 06/25/19 History with Docusate Sodium] topiramate [Topamax] 100 mg PO BID 06/05/19 06/25/19 History tramadol [Ultram] 50 mg PO Q6H PRN 06/05/19 06/25/19 History atorvastatin 80 mg tablet 80 mg PO QAM #90 tab 06/12/19 06/25/19 Rx isosorbide mononitrate 60 mg 60 mg PO QAM #90 tab 06/12/19 06/25/19 Rx tablet,extended release 24 hr potassium chloride 20 mEq 20 meq PO QAM #90 tab 06/12/19 06/25/19 Rx tablet,extended release pantoprazole 40 mg PO DAILY 06/14/19 06/25/19 History aspirin [Ecotrin Low Strength] 81 mg PO DAILY #30 tab 06/21/19 06/25/19 Rx cyanocobalamin (vitamin B-12) 1,000 mcg PO DAILY #30 cap 06/21/19 06/25/19 Rx fexofenadine 60 mg PO BID #60 tab 06/21/19 06/25/19 Rx folic acid 1 mg PO QAM #30 tab 06/21/19 06/25/19 Rx thiamine HCl (vitamin B1) [Vitamin 200 mg PO BID #120 tab 06/21/19 06/25/19 Rx B-1] triamcinolone acetonide 1 applic EXT TID 7 Days #30 gm 06/21/19 06/25/19 Rx famotidine 40 mg PO QAM 1 Days #1 tab 06/23/19 06/25/19 Rx Lantus Solostar U-100 Insulin 30 unit SUBCUT HS 06/25/19 06/25/19 History furosemide 20 mg PO QAM #30 tab 06/25/19 06/25/19 Rx risperidone 1 mg PO TID 06/25/19 06/25/19 History Patient History Medical History Atypical chest pain (Resolved) Benign colonic polyp (Chronic) 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 Cellulitis Cognitive disorder (Chronic) Controlled type 2 diabetes mellitus with neurologic complication, with long-term current use of insulin (Resolved) Conversion disorder (Resolved) Delusional disorder, somatic type Diabetes mellitus, type 2 Diabetic peripheral neuropathy (Chronic) Dyslipidemia (Resolved) Eczematous dermatitis Esophageal reflux (Chronic) Fracture of left distal radius History of colon polyps (Chronic) History of tobacco use (Resolved) Hyperlipidemia (Chronic) Hypertension Kidney stone on right side (Resolved) Migraines, neuralgic Myocardial Infarction (Resolved) 2004--follows with Dr. Mejia Nephrolithiasis (Resolved) Neurological deficit present (Resolved) Neuropathy (Chronic) Osteoarthritis (Chronic) Raynauds phenomenon (Chronic) Stage III chronic kidney disease Tubular adenoma of colon (Resolved) Vitamin D deficiency (Chronic) Wound of left foot (Resolved) Surgical History History of arthroscopy of left knee (Resolved) History of cardiac cath (Resolved) x3-4, last 2014 History of carpal tunnel release of both wrists (Resolved) History of colonoscopy (Resolved) History of heart artery stent (Resolved) x1--1998 History of lithotripsy (Resolved) x2 History of lumbar discectomy (Resolved) x2 History of open reduction and internal fixation (ORIF) procedure (Resolved) left ankle--hardware in place History of right cataract extraction (Resolved) History of tonsillectomy and adenoidectomy (Resolved) 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 Status post uvulopalatopharyngoplasty (Resolved) Family History Father Family history of diabetes mellitus Family hx of colon cancer Other No family history of adverse response to anesthesia Social History Preferred Language: Danish Communication Ability: Effective Visual Impairment: No Limitations Facility Environmental Technician Required: No Beliefs That Will Affect Care: None marital status: marital status details: 3 children Current Living Situation: Spouse current occupational status: retired other: worked -[employer]); 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 ; Second Hand Exposure: No ; Hx Alcohol Use: No Hx Substance Use: No Review of Systems Constitutional: no fever, no chills and no problem reported Eyes: as per Subjective / HPI; no problem reported Ear, Nose, Mouth, Throat: as per Subjective / HPI; no problem reported Respiratory: as per Subjective / HPI; no problem reported Cardiovascular: no edema and no problem reported Gastrointestinal: no nausea, no vomiting and no problem reported Genitourinary: no problem reported Musculoskeletal: as per Subjective / HPI Integumentary: as per Subjective / HPI; no problem reported Neurologic: no tingling, no paresthesia and no problem reported Psychiatric: no problem reported Endocrine: as per Subjective / HPI Hematologic / Lymphatic: as per Subjective / HPI Allergy / Immunological: no problem reported Physical Exam Musculoskeletal: Patient was alert and sitting comfortably in his bed. We removed cast with a cast saw today. He did have some skin sloughing on his left hand as a result of wearing the cast. Left wrist: Limited ROM with flexion, extension, eversion, and inversion. Mild pain with full supination and pronation. No evidence of ecchymosis, erythema, or inflammation. Neurovascularly intact. Mild pain with palpation over distal radius. Right wrist: Full active ROM with flexion, extension, inversion, and eversion. No evidence of ecchymosis, erythema, or inflammation. Neurovascularly intact. 5/5 strength in all planes. Results & Data Vital Signs (Past 12 Hours) Vital Signs Temp Pulse Pulse Resp BP BP 06/27/19 10:13 96 H 112/69 06/27/19 06:47 96 H 100/62 06/27/19 06:45 36.7 C 91 H 18 97/66 L PG Care Time/CCT Total # of Minutes Spent Total Time Spent with Patient: Total time spent is greater than 50% in coordination of care (as documented) at patient's floor/unit and/or counseling patient: Coding Level of Care Code 92371 Inpt Consult Level 1 Diagnoses Fracture of left distal radius S52.502A
--- NOTE | 2019-06-27 18:51 | XRay Report ---
XR wrist LT min 3V routine CLINICAL HISTORY: Cast removed DISTAL RADIAL FRACTURE COMPARISON: 04/27/2019 DISCUSSION: There is a comminuted intra-articular fracture of the distal radius with 33 degrees dorsa l tilt of the radial articular surface. The fracture line is still visualized with subtle sclerotic f racture margins. There are advanced osteoarthritic changes the level of the first carpal metacarpal j oint. IMPRESSION: Incomplete healing of the previously identified comminuted intra-articular fracture of di stal radius. There is 33 degrees dorsal tilt of the radial articular surface ACT 112: Negative or not required by law. Electronically signed by: Carlos Salazar M.D. 06/27/2019 6:49 PM
[2019-06-27] MEDS: risperiDONE 3 MG TABLET PO SCH (21:21)
[2019-06-27] MEDS: INSULIN GLARGINE SOLOSTAR 100 UNITS/ML 3 ML PEN SQ SCH (21:25)
[2019-06-28] MEDS: TRAMADOL HCL 50 MG TABLET PO PRN (01:35)
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
[2019-06-28] MEDS: METOPROLOL TARTRATE 25 MG TAB PO SCH ×2 (08:13→21:31)
[2019-06-28] MEDS: FEXOFENADINE 60 MG TAB PO SCH ×2 (08:13→21:31)
[2019-06-28] MEDS: ASPIRIN 81 MG ECTAB PO SCH (08:13)
[2019-06-28] MEDS: FOLIC ACID 1 MG TAB PO SCH (08:15)
[2019-06-28] MEDS: POTASSIUM CHLORIDE 20 MEQ TABCR PO SCH (08:16)
[2019-06-28] MEDS: ISOSORBIDE MONO EXTENDED REL 60 MG TABCR PO SCH (08:16)
[2019-06-28] MEDS: TRIAMCINOLONE ACET 0.1% OINT 15 GM TUBE EXT SCH ×3 (08:16→21:44)
[2019-06-28] MEDS: ATORVASTATIN 40 MG TAB PO SCH (08:17)
[2019-06-28] MEDS: FUROSEMIDE 20 MG TAB PO SCH (08:17)
[2019-06-28] MEDS: FAMOTIDINE 40 MG TABLET PO SCH (08:18)
[2019-06-28] MEDS: POLYETHYLENE (MIRALAX) 17 GM PACK PO SCH (08:18)
[2019-06-28] MEDS: PANTOprazole 40 MG TAB PO SCH (08:19)
[2019-06-28] MEDS: risperiDONE 1 MG TABLET PO SCH ×2 (08:19→13:55)
[2019-06-28] MEDS: THIAMINE HCL 100 MG TAB PO SCH ×2 (08:20→21:31)
[2019-06-28] MEDS: CYANOCOBALAMIN 500 MCG TABLET (VITAMIN B-12) PO SCH (08:20)
[2019-06-28] MEDS: TOPIRAMATE 100 MG TAB PO SCH ×2 (08:20→21:31)
[2019-06-28] MEDS: DOCUSATE SODIUM/SENNA 50/8.6MG TAB PO SCH (08:20)
[2019-06-28] MEDS: INSULIN ASPART 100 UNITS/ML 3 ML PEN SC SCH ×4 (08:44→21:34)
--- NOTE | 2019-06-28 15:04 | Pharmacy Report ---
Pharmacy Glycemic Short Note 2 - Date of Service June 28, 2019 - Glycemic Short BSG Results (Last 24 hours): 06/27/19 06/27/19 06/28/19 17:21 21:10 05:33 POC Glucose 162 H 149 H 181 H 06/28/19 08:35 POC Glucose 193 H OUTPATIENT ANTIDIABETIC REGIMEN: * Lantus 40-60 units HS * Humalog 10-15 units prior to meals ASSESSMENT: 06/27 * BSGs up slightly today (fasting 181 mg/dL) but I suspect this is from reduced dose of basal given 2 nights ago * Will change Lantus to set dose of 30 units * In the meantime, will tighten CF to provide additional correctional coverage 06/26 * Patient received total 53 units of insulin yesterday of which 30 units was basal and 23 units bolus. * Fasting BSG was elevated at 212 today. Novolog correction factor and carb ratio were tightened further today. * Will continue with same dose of basal insulin for now. PLAN FOR INPATIENT GLYCEMIC CONTROL: * Basal insulin: change to set dose * Lantus 30 units qHS * Bolus insulin: tighten CF, can likely loosen tomorrow once BSGs improved * NovoLog per scale ACHS or Q6hrs while NPO * Goal Range: Low 110 mg/dL - High 140 mg/dL * Correction Factor: 20 mg/dL/unit * Nutritional / Prandial insulin per carb ratio of 1 unit per 7 grams CHO consumed PLAN FOR DISCHARGE: * HbA1c = 6.5% on 05/15/19 * Goal A1c less than 7%. * Home dose of Lantus was reportedly causing hypoglycemia for patient. Recommend decreasing Lantus dose to 25 units daily at bedtime and use Humalog before meals on a sliding scale based on BSGs.
[2019-06-28 18:48] LABS: Prothrombin Time 10.3 Seconds (9.0-12.0)
[2019-06-28 19:00] LABS: Alanine Aminotransferase 31 U/L (12-78); Albumin Level 3.1 gm/dl (3.4-5.0); Alkaline Phosphatase 127 U/L (45-117); Aspartate Aminotransferase 19 U/L (15-37); Bilirubin Direct < 0.1 mg/dl (0-0.2); Bilirubin,Total 0.3 mg/dl (0.2-1); Cholesterol 90 mg/dl (0-200); Iron 35 mcg/dl (35-175); Total Iron Binding Capacity 308 mcg/dl (250-450); Total Protein 6.6 gm/dl (6.4-8.2); Transferrin 236 mg/dl (200-360)
[2019-06-28] MEDS: DIVALPROEX EXTENDED RELEASE 250 MG TABCR PO SCH (21:31)
[2019-06-28] MEDS: risperiDONE 3 MG TABLET PO SCH (21:32)
[2019-06-28] MEDS: INSULIN GLARGINE SOLOSTAR 100 UNITS/ML 3 ML PEN SQ SCH (21:32)
[2019-06-29] MEDS: TRAMADOL HCL 50 MG TABLET PO PRN ×2 (01:01→23:45)
[2019-06-29] MEDS: POLYETHYLENE (MIRALAX) 17 GM PACK PO SCH (08:16)
[2019-06-29] MEDS: FEXOFENADINE 60 MG TAB PO SCH ×2 (08:20→21:19)
[2019-06-29] MEDS: ISOSORBIDE MONO EXTENDED REL 60 MG TABCR PO SCH (08:21)
[2019-06-29] MEDS: FOLIC ACID 1 MG TAB PO SCH (08:21)
[2019-06-29] MEDS: ASPIRIN 81 MG ECTAB PO SCH (08:21)
[2019-06-29] MEDS: TRIAMCINOLONE ACET 0.1% OINT 15 GM TUBE EXT SCH ×3 (08:21→21:35)
[2019-06-29] MEDS: ATORVASTATIN 40 MG TAB PO SCH (08:22)
[2019-06-29] MEDS: FUROSEMIDE 20 MG TAB PO SCH (08:22)
[2019-06-29] MEDS: METOPROLOL TARTRATE 25 MG TAB PO SCH ×2 (08:22→21:19)
[2019-06-29] MEDS: POTASSIUM CHLORIDE 20 MEQ TABCR PO SCH (08:22)
[2019-06-29] MEDS: FAMOTIDINE 40 MG TABLET PO SCH (08:23)
[2019-06-29] MEDS: PANTOprazole 40 MG TAB PO SCH (08:23)
[2019-06-29] MEDS: TOPIRAMATE 100 MG TAB PO SCH ×2 (08:24→21:19)
[2019-06-29] MEDS: risperiDONE 1 MG TABLET PO SCH ×2 (08:24→14:01)
[2019-06-29] MEDS: DOCUSATE SODIUM/SENNA 50/8.6MG TAB PO SCH (08:24)
[2019-06-29] MEDS: CYANOCOBALAMIN 500 MCG TABLET (VITAMIN B-12) PO SCH (08:25)
[2019-06-29] MEDS: THIAMINE HCL 100 MG TAB PO SCH ×2 (08:25→21:20)
[2019-06-29] MEDS: INSULIN ASPART 100 UNITS/ML 3 ML PEN SC SCH ×4 (09:14→21:25)
--- NOTE | 2019-06-29 10:23 | Pharmacy Report ---
Pharmacy Glycemic Short Note 2 - Date of Service June 29, 2019 - Glycemic Short BSG Results (Last 24 hours): 06/28/19 06/28/19 06/28/19 12:27 17:23 20:47 POC Glucose 146 H 197 H 207 H 06/29/19 08:03 POC Glucose 118 H OUTPATIENT ANTIDIABETIC REGIMEN: * Lantus 40-60 units HS * Humalog 10-15 units prior to meals ASSESSMENT: 06/29 * Patient is currently receiving an average of 70 units of insulin per day * 30 units of basal insulin * 43 units of prandial/correctional insulin * BSGs ranging 118-207 over the past 24hrs * Risk factors for insulin resistance are constant over the past 24hrs * Fasting BSG improved today (118 mg/dL) so will continue with same basal dose * Postprandials elevated yesterday for unknown reason, although could have been due to lower basal on 06/26. Will hold off on tightening bolus insulin parameters until a consistent trend is seen. * Pre-lunch BSG significantly elevated today. When I spoke with the nurse, she noted that patient has a history of snacking. Lunch Novolog was administered late so she rechecked BSG prior to administering and BSG had fallen from 241 - > 131 without insulin. This is likely from AM Novolog that was administered later this AM. 06/28 * BSGs up slightly today (fasting 181 mg/dL) but I suspect this is from reduced dose of basal given 2 nights ago * Will change Lantus to set dose of 30 units * In the meantime, will tighten CF to provide additional correctional coverage 06/26 * Patient received total 53 units of insulin yesterday of which 30 units was basal and 23 units bolus. * Fasting BSG was elevated at 212 today. Novolog correction factor and carb ratio were tightened further today. * Will continue with same dose of basal insulin for now. PLAN FOR INPATIENT GLYCEMIC CONTROL: * Basal insulin: no change * Lantus 30 units qHS * Bolus insulin: no change * NovoLog per scale ACHS or Q6hrs while NPO * Goal Range: Low 110 mg/dL - High 140 mg/dL * Correction Factor: 20 mg/dL/unit * Nutritional / Prandial insulin per carb ratio of 1 unit per 7 grams CHO consumed PLAN FOR DISCHARGE: * HbA1c = 6.5% on 05/15/19 * Goal A1c less than 7%. * Home dose of Lantus was reportedly causing hypoglycemia for patient. Recommend decreasing Lantus dose to 25 units daily at bedtime and use Humalog before meals on a sliding scale based on BSGs.
--- NOTE | 2019-06-29 10:48 | Psychiatric Progress Note ---
Date of Service June 29, 2019 Impression / Recommendations Impression 74-year-old male with a history of coronary artery disease status post CABG 1 month ago at [place] who presented with delusional disorder. He was hospitalized on the medical service first for CHF, then for multiple medical problems, and was seen by the psychiatry consult service on both hospitalizations. He has also been having episodes of unresponsiveness best described as conversion reactions. His family reports that he has been increasingly focused on delusions since February 2019, perseverating on them to the point that he was unable to function, and has been threatening and aggressive to the point that his no longer feels safe at home with him. He had been prescribed citalopram for unclear reasons, and it has now been discontinued as he had some manic symptoms. He has been started on risperidone which was titrated to 1 mg twice daily and 3 mg at bedtime, and Depakote was added to target irritability, mood lability, and aggression. He is labile, with episodes of agitation and threatening staff here, to the extent that he had to be given IM medications and be placed on an involuntary commitment on 06/27/2019. He is stating unwillingness to return home to live with his , and would like to go to supportive living in [place], but does not apparently have the financial resources to do this. The family meeting scheduled with his and daughter had to be canceled due to his aggressive behavior, and will need to be rescheduled next week. His sleep remains suboptimal, and we will schedule Depakote at bedtime to try to help with that. He has made repeated threats towards a specific staff member here after they informed him they could not see the worms he believes are infesting him, and has not responded to attempts to redirect him. Inpatient treatment remains medically necessary due to the severity of symptoms and safety concerns of discharge. (1) Delusional disorder, somatic type: 06/25 -continue risperidone 1 mg 3 times daily. FLP from 06/06/2019 was within normal limits. Fasting glucose 158. -Extensive medical work-up of psychosis and neurological symptoms including: Head CT, brain MRI, EEG, prolactin, PTH, cortisol, RAÚL, RPR, Lyme IgG and IgM, HIV, hepatitis C, Neurology and orthopedic consultations. -Differential includes mood disorder (has displayed manic symptoms) and frontotemporal dementia. -Patient unable to reality test. Continue to offer support and strategies for distress tolerance. -Obtain collateral information and involve family as able. -Encourage patient to attend to participate in groups and therapy. Work on healthy coping skills and discharge safety plan. 06/26 - continue risperidone and consolidate to 1mg qam and 2mg hs (which may also help with sleep). -Patient very poorly responsive to attempts to reframe his concerns as being influenced by psychological distress, and absolutely unable to reality test. -Recommend family meeting with his and daughter once he is able to tolerate it. is reportedly currently medically ill and quite stressed, and is he has been threatening her, we will postpone this for now. -Refer for outpatient case management services and explore housing options, as he is requesting supportive living referral. 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 It is recognized that this disorder, like all delusional disorders, tend to respond poorly to treatment. In this case, it will be important to avoid persistent reality testing, and the treatment team and I have discussed the fact that while we can and should provide reality testing when the patient escalates, we should not subsequently engage in any form of what might be considered a debate or attempt to convince. 06/28 - Lead level is low (2). - Now on a 302 involuntary commitment after episode of agitation and threatening staff yesterday, related to his delusions. - Delusions continue, risperidone just increased to total of 5mg daily in divided dosing. Start trial of low-dose Depakote for irritability/anger outbursts/agitation -250 mg at bedtime. - Family meeting canceled due to agitation. Will reschedule once he is in better behavioral control. - Continue private room due to agitation and psychosis. 06/29 -continue private room, as patient continues to have episodes of agitation, and has been making threats towards staff. He is unpredictable and does not respond well to attempts to redirect him. -Check heavy metal screen given his reports of past toxin exposure. -Increase risperidone to 1 mg 3 times daily and 3 mg at bedtime to target ongoing delusions. Present on Admission?: Yes (2) Intermittent explosive disorder: 06/29 -patient has a long history of anger problems, with rapid and unpredictable mood changes, and aggressive and threatening behavior. He does not have sufficient mood symptoms to support a bipolar diagnosis, and IED may be the most appropriate diagnosis. He was started on Depakote XR 250 mg at bedtime yesterday, and we will titrate as tolerated. Present on Admission?: Yes (3) Conversion disorder: 06/25 -address psychosocial stressors, identify healthy coping skills, and provide reassurance and support. -Discussed with Dr. Aparicio, and patient has future unresponsive events, recommended vital signs, blood glucose, and if parameters are normal, contacting the hospitalist to evaluate the patient. -He was seen by orthopedics today, who recommended physical therapy for global weakness. PT consult ordered. 06/27 -The patient tells us that he feels that he is having transient ischemic attacks, and refers to his periods of paralysis and confusion by that name. -In addition to a conversion disorder, it is possible that the patient is experiencing prolonged adverse effects associated with general anesthesia or, as the patient suggests, brief transient ischemic attacks, although as described, these episodes are not typically consistent with TIAs. Present on Admission?: Yes (4) Eczematous dermatitis: 06/26 -reviewed dermatology note from 06/04/[address] Mac; patient had last been seen in 03/2019, reported multiple episodes of itching, burning, irritated areas of skin, which had previously responded to IM Kenalog. He received another injection of IM Kenalog, was diagnosed with eczematous dermatitis, and appropriate bathing practices were reviewed. Daily moisturization with Cetaphil cream was recommended, and avoidance of applying anything else to the skin. -Patient has been receiving triamcinolone topically once daily here. Will add Eucerin cream as skin appears dry and irritated. No signs of infection or parasites, although he has multiple areas of excoriation on his lower and upper extremities, face, and neck. 06/27 -As previously noted, the patient tends to draw our attention to patches of irritated skin and eczematous dermatitis, and refer to the associated skin "flaking" as constituting worms or "bugs" that he believes is crawling from his skin. He also experiences tingling and paresthesias that also seem to be contributing to his belief that he is contaminated with parasites. This is not atypical in cases of delusional parasitosis. -Treating the patient's current condition is important within the context of his associated psychiatric complaints. Present on Admission?: Yes (5) Fracture of left distal radius: 06/26 -appreciate orthopedic recommendations; cast remains in place, but patient asking to have it removed. 06/29 -cast removed, continue brace. Laboratory work-up for poor healing per Ortho: Iron, TIBC, transferrin all within normal limits. LFTs show alkaline phosphatase 127 (was 96 on admission). Total protein normal, albumin 3.1. Alpha-1 antitrypsin, ceruloplasmin, and RAÚL screen pending. Cholesterol 90. Present on Admission?: Yes (6) Hypertension: Continue furosemide 20 mg daily and metoprolol 75 mg twice daily. Continue home dose of Imdur. -Follow-up with machine buffer as an outpatient. Present on Admission?: Yes (7) Alcohol abuse: History of alcohol abuse, no significant use in the past 3 years. Present on Admission?: Yes (8) Vitamin B12 deficiency: Vitamin B12 from 06/15/2019 was 219. Folate 4.16. Vitamin B 1 6. Continue vitamin B12 1000 mcg daily, folic acid 1 mg daily, and thiamine 200 mg twice daily. Present on Admission?: Yes (9) Diabetes mellitus, type 2: 06/25 -continue heart healthy, carb consistent diabetic diet, and insulin regimen per diabetic pharmacist. Present on Admission?: Yes (10) Stage III chronic kidney disease: 06/19 -creatinine returned to baseline as of 06/24/2019 (1.18); was as high as 1.65 on 06/23/2019. Present on Admission?: Yes (11) Code status needs review: Patient was DNR/DNI on the medical floor. He voices that he continues to want this. He expresses understanding of this, despite his psychosis. It was documented during other admissions that he was DNR/DNI. He has not been suicidal. (12) Coronary artery disease: 06/29 -reporting chest pain today, difficult to tell how much of his reported symptoms are influenced by psychosis -ordered EKG, vital sign recheck, and blood glucose. -Consulted the hospitalist service, and spoke with Dr. Cunningham. Appreciate assistance and recommendations. Present on Admission?: Yes Risk Factors Assessment Male: Yes : Yes Do You Have Access To A Gun?: No Health Problems: Yes Mental Health Diagnoses: Yes Substance Use Disorders: Yes Previous Attempt: No Previous Psychiatric Hospitalization: Yes Hopelessness: No Smoker: No Protective Factors Assessment Mandaen Beliefs: No : Yes Responsible for Young Children: No Employed: No Stable Relationships: No Supportive Family: Yes Interval History Identifying Information EMANUEL GRANT is a 74-year-old M who currently lives in [place] with his , has a history of delusional parasitosis and conversion disorder, and was admitted on 06/25/19 13:47 on a 201 voluntary commitment for delusional parasitosis. He was initially admitted to the hospitalist service 06/14/2019 - 06/21/2019, was transferred to the [facility], but then transferred back to the hospitalist service 06/23/2019 after an episode of unresponsiveness. He had a negative medical work-up and was been medically cleared and transferred back to the behavioral health unit 06/25/2019. Chief Complaint "Very well". Review of Systems Notes 10 systems reviewed, negative except as stated above and: intermittent numbness in LE, "head caving in," anger Sleep Information Total Hours of Sleep: 4.75 Meal Information Percent Meal Consumed - Breakfast: 100 Percent Meal Consumed - Lunch: 100 Percent Meal Consumed - Dinner: 100 Subjective Subjective Patient was seen & assessed and interval progress reviewed with nursing. Staff report he has been eating well, jovial with peers, although often is unable to follow the conversation and responds with unrelated information. He had a visit from his son and [id number] which appeared to go well. Although he was in good behavioral control for much of the day yesterday and was able to tolerate groups, he became angry at times and made multiple verbal threats toward a specific staff. He did not respond to attempts to redirect him, stating that he did not care if security called or if he was arrested, as he knew he was going to anyway. On my assessment, he reports he had chest pain overnight, and it recurred this morning, "it's in my lungs." It is in his upper chest, exacerbated by cough, productive and says he is "coughing up these worms." He reports pain "all down my left side," but was able to walk several laps around the unit this am. He is eating well, ate all of his breakfast and just had some crackers. Denies SOB, headache, but says "my head feels like it's shrinking." He then pulls a paper towel out of his pocket and says there's "one of those bugs that come out of my skin," pointing to a pink dot on the paper towel that appears to be a crumb of food. He says "don't touch it whatever you do, it'll jump!" He warns "don't call me a liar, whatever you do." He says he saw one of the bugs that "came out of my skin" turn into a butterfly and fly off in the hospital when he was on the medical floor. Physical Exam Psychiatric Orientation: alert Apperance: appropriately dressed and appeared stated age; + inappropriately groomed Front of sweater covered in cracker crumbs Eye Contact: + fair eye contact Motor Behavior: steady gait and station and no abnormal motor movements Speech: normal rate/rhythm/volume of speech Affect: + labile affect switched rapidly from euthymic and jovial to irritable "Very well" Thought Process: + perseveration (on delusions of infestation) Thought Content: + delusions Suicidal Thoughts: denies suicidal thoughts Homicidal Thoughts: denies homicidal thoughts Hallucinations: + visual hallucinations; no auditory hallucinations thinks that crumbs are bugs, says he can see them moving, and saw one turn into a butterfly and fly away Cognition: recent memory grossly intact, attention grossly intact and language grossly intact Insight: + severely impaired insight Judgement: + severely impaired judgement Vital Signs (Past 24 Hours) Last Vital Signs Temp 36.3 C L 06/29/19 08:10 Pulse 98 H 06/29/19 08:10 Resp 18 06/28/19 06:41 BP 117/74 06/29/19 08:10 Pulse Ox 97 06/26/19 21:30 Results & Data Laboratory Results Laboratory Results - last 24 hr 06/28/19 06/28/19 06/28/19 12:27 17:23 18:24 PT 10.3 INR 1.0 POC Glucose 146 H 197 H Iron TIBC Transferrin Total Bilirubin Direct Bilirubin AST ALT Alkaline Phosphatase Total Protein Albumin Avgnd-5-Gvftionxwaj Ceruloplasmin Cholesterol Acetaminophen RAÚL Screen 06/28/19 06/28/19 06/28/19 18:24 18:24 18:24 PT INR POC Glucose Iron 35 TIBC 308 Transferrin 236 Total Bilirubin 0.3 Direct Bilirubin < 0.1 AST 19 ALT 31 Alkaline Phosphatase 127 H Total Protein 6.6 Albumin 3.1 L Jogal-4-Umooxubqnvn Pending Ceruloplasmin Pending Cholesterol 90 Acetaminophen < 2 L RAÚL Screen Pending 06/28/19 06/29/19 20:47 08:03 PT INR POC Glucose 207 H 118 H Iron TIBC Transferrin Total Bilirubin Direct Bilirubin AST ALT Alkaline Phosphatase Total Protein Albumin Vildk-4-Cmpwmruenrv Ceruloplasmin Cholesterol Acetaminophen RAÚL Screen Current Inpatient Medications Current Inpatient Medications: Current Inpatient Medications Acetaminophen (Tylenol) 650 mg PO Q4H PRN PRN Reason: Headache or Minor Fever Stop: 07/25/19 14:02 Al Hydrox/Mg Hydrox/Simethicone (Maalox) 30 ml PO Q4H PRN PRN Reason: GI Upset Stop: 07/25/19 14:02 Aspirin (Ecotrin Ectab) 81 mg PO DAILY NIKOLAI Stop: 07/26/19 08:59 Last Admin: 06/29/19 08:21 Dose: 81 mg Documented by: Atorvastatin Calcium (Lipitor) 80 mg PO QAM NIKOLAI Stop: 07/26/19 08:59 Last Admin: 06/29/19 08:22 Dose: 80 mg Documented by: Bismuth Subsalicylate (Kaopectate) 15 ml PO PRN PRN PRN Reason: Loose Stool Stop: 07/25/19 14:02 Cyanocobalamin (Vitamin B-12) 1,000 mcg PO DAILY NIKOLAI Stop: 07/26/19 08:59 Last Admin: 06/29/19 08:25 Dose: 1,000 mcg Documented by: Dextrose (Dextrose 50%) 25 - 50 ml IV UD PRN; Protocol PRN Reason: Hypoglycemia Protocol Stop: 07/25/19 14:44 Divalproex Sodium (Depakote Extended Release) 250 mg PO HS NIKOLAI Stop: 07/28/19 21:59 Last Admin: 06/28/19 21:31 Dose: 250 mg Documented by: Famotidine (Pepcid) 40 mg PO QAM NIKOLAI Stop: 07/26/19 08:59 Last Admin: 06/29/19 08:23 Dose: 40 mg Documented by: Fexofenadine HCl (Nikky) 60 mg PO BID NIKOLAI Stop: 07/25/19 20:59 Last Admin: 06/29/19 08:20 Dose: 60 mg Documented by: [facility]olic Acid ([facility]vite) [facility] Stop: 07/26/19 08:59 Last Admin: 06/29/19 08:21 Dose: 1 mg Documented by: [facility]urosemide (Lasix) [facility] Stop: 07/26/19 08:59 Last Admin: 06/29/19 08:22 Dose: 20 mg Documented by: Glucagon (Glucagen) 1 mg IM UD PRN; Protocol PRN Reason: Hypoglycemia Protocol Stop: 07/25/19 14:44 Glucose (Glucose 40%) 15 - 30 gm PO UD PRN; Protocol PRN Reason: Hypoglycemia Protocol Stop: 07/25/19 14:44 Glucose (Dex4 Glucose) 4 - 8 tabs PO UD PRN; Protocol PRN Reason: Hypoglycemia Protocol Stop: 07/25/19 14:44 Haloperidol (Haldol) 2.5 mg PO Q4H PRN PRN Reason: Agitation Stop: 07/27/19 14:46 Haloperidol Lactate (Haldol) 5 mg IM Q6H PRN PRN Reason: Agitation Stop: 07/27/19 14:44 Hydroxyzine HCl (Vistaril) 50 mg PO HSZ PRN PRN Reason: Insomnia Stop: 07/25/19 14:02 Hydroxyzine HCl (Vistaril) 25 mg PO Q4H PRN PRN Reason: Anxiety Stop: 07/25/19 14:02 Last Admin: 06/28/19 01:35 Dose: 25 mg Documented by: Insulin Aspart (Novolog Flexpen) 0 units SC [facility] Stop: 07/25/19 17:14 Last Admin: 06/29/19 09:14 Dose: 11 units Documented by: Insulin Glargine (Lantus Solostar Pen) 30 units SQ [facility] Stop: 07/28/19 21:59 Last Admin: 06/28/19 21:32 Dose: 30 units Documented by: Isosorbide Mononitrate (Imdur Extended Rel) 60 mg PO [facility] Stop: 07/26/19 08:59 Last Admin: 06/29/19 08:21 Dose: 60 mg Documented by: Lorazepam (Ativan) 1 mg IM Q6H PRN PRN Reason: Agitation Stop: 07/27/19 14:59 Lorazepam (Ativan) 1 mg PO Q6H PRN PRN Reason: Agitation Stop: 07/27/19 14:47 Magnesium Hydroxide (Milk Of Magnesia) 30 ml PO DAILY PRN PRN Reason: Constipation Stop: 07/25/19 14:02 Metoprolol Tartrate (Lopressor) 75 mg PO BID [facility] Stop: 07/25/19 20:59 Last Admin: 06/29/19 08:22 Dose: 75 mg Documented by: Miscellaneous (Carbohydrates For Hypoglycemia) 15 - 30 gm PO UD PRN PRN Reason: Hypoglycemia Treatment Stop: 07/25/19 14:44 Miscellaneous Information (Consult Glycemic Management Pharmacy) 1 ea N/A UD PRN PRN Reason: Consult Stop: 07/26/19 09:10 Multi-Ingredient Cream (Hydrocerin) 1 appln EXT Q8H PRN PRN Reason: dry skin Stop: 07/26/19 10:33 Nitroglycerin (Nitrostat) 0.4 mg SL Q5M PRN PRN Reason: Chest Pain Stop: 07/25/19 14:15 Pantoprazole Sodium (Protonix) 40 mg PO DAILY [facility] Stop: 07/26/19 08:59 Last Admin: 06/29/19 08:23 Dose: 40 mg Documented by: Polyethylene Glycol (Miralax Powder Packet) 17 gm PO QAM [facility] Stop: 07/26/19 08:59 Last Admin: 06/29/19 08:16 Dose: 17 gm Documented by: Potassium Chloride (Klor-Con M20) 20 meq PO QAM [facility] Stop: 07/26/19 08:59 Last Admin: 06/29/19 08:22 Dose: 20 meq Documented by: Risperidone (Risperdal) 1 mg PO 0900,1400 [facility] Stop: 07/28/19 08:59 Last Admin: 06/29/19 08:24 Dose: 1 mg Documented by: Risperidone (Risperdal) 3 mg PO HS [facility] Stop: 07/27/19 21:59 Last Admin: 06/28/19 21:32 Dose: 3 mg Documented by: Senna/Docusate Sodium (Senokot S) 1 tab PO QAM [facility] Stop: 07/26/19 08:59 Last Admin: 06/29/19 08:24 Dose: 1 tab Documented by: Sodium Chloride (Chaves Nasal) 1 - 2 sprays NA PRN PRN PRN Reason: Nasal Dryness/Congestion Stop: 07/25/19 14:02 Thiamine HCl (Vitamin B-1) 200 mg PO BID [facility] Stop: 07/25/19 20:59 Last Admin: 06/29/19 08:25 Dose: 200 mg Documented by: Topiramate (Topamax) 100 mg PO BID [facility] Stop: 07/25/19 20:59 Last Admin: 06/29/19 08:24 Dose: 100 mg Documented by: Tramadol HCl (Ultram) 50 mg PO Q6H PRN PRN Reason: pain Stop: 07/25/19 14:15 Last Admin: 06/29/19 01:01 Dose: 50 mg Documented by: Triamcinolone Acetonide (Kenalog 0.1%) 1 appln EXT TID [facility] Stop: 07/25/19 20:59 Last Admin: 06/29/19 08:21 Dose: Not Given Documented by: Mental Health & Subst Abuse Tx Therapist Name of Therapist: denies Cnc Lathe Machine Operator Name of Cnc Lathe Machine Operator: denies Post Discharge Appointments Primary Care Physician Name Of Family Doctor: Fox Moran Contact Information Discharge Discharge Address: [address] [place] [id number] (1) Diabetes mellitus, type 2 Diabetes mellitus complication detail: with polyneuropathy Diabetes mellitus complication status: with neurologic complications Diabetes mellitus fpc insulin use: with terminal superintendent use Qualified Code(s): E11.42 - Type 2 diabetes mellitus with diabetic polyneuropathy; Z79.4 - terminal system operator (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
[2019-06-29 13:28] LABS: BUN Creatinine Ratio 21.4 (10-20); Blood Urea Nitrogen 26 mg/dl (7-18); Calcium 8.7 mg/dl (8.5-10.1); Carbon Dioxide 26 mmol/L (21-32); Chloride 109 mmol/L (98-107); Creatinine Clr Calc Pharmacy 60.4 ml/min; Est GFR (African American) 67.7; Est GFR (Non-African American) 58.5; Glucose 147 mg/dl (70-99); Potassium 4.1 mmol/L (3.5-5.1); Sodium 142 mmol/L (136-145)
[2019-06-29 13:32] LABS: NT Pro B Type Natriuretic Pept 393 pg/ml (0-900); Troponin I < 0.015 ng/ml (0-0.045)
[2019-06-29 15:16] LABS: Appearance Urine Cloudy (Clear); Bacteria Urine Automated Negative (Negative); Bilirubin Urine Negative (Negative); Blood Urine Negative (Negative); Color Urine Yellow; Epithelial Cell Urine Auto 0-5 /lpf (0-5); Glucose Urine UA Negative (Negative); Ketones Urine Negative (Negative); Leukocyte Esterase Urine Negative (Negative); Nitrite Urine Negative (Negative); Protein Urine Negative (Negative); RBC Urine Automated 0-4 /hpf (0-4); Specific Gravity Urine 1.014 (1.000-1.030); Urobilinogen Urine Negative (Negative)
--- NOTE | 2019-06-29 16:27 | Ultrasound Report ---
US venous doppler LE LT CLINICAL HISTORY: Left lower extremity pain COMPARISON STUDY: 06/14/2019 FINDINGS: No thrombus is visualized within the common femoral, superficial femoral, or popliteal vein . There is normal color flow within the visualized trifurcation veins of the calf. There is a persist ent greater saphenous vein thrombus extending from the mid calf to the proximal thigh, greater than 5 cm from the common femoral vein junction. IMPRESSION: 1. No evidence of left lower extremity DVT 2. Persistent long segment greater saphenous vein superficial thrombus. ACT 112: Negative or not required by law. Electronically signed by: Carlos Salazar M.D. 06/29/2019 4:25 PM
--- NOTE | 2019-06-29 16:29 | XRay Report ---
XR chest 2V PA/lateral CLINICAL HISTORY: Cough and chest tightness COMPARISON STUDY: 06/17/2019 FINDINGS: The heart is the upper limits of normal in size. There are postsurgical changes of a midlin e sternotomy. There is no failure. There is no focal pulmonary consolidation. There are no pleural ef fusions. Indistinctness of the left heart border is felt to be secondary to a prominent fat-pad.[ IMPRESSION: No active disease in the chest. ACT 112: Negative or not required by law. Electronically signed by: Carlos Salazar M.D. 06/29/2019 4:27 PM
--- NOTE | 2019-06-29 18:35 | Hospitalist Progress Note ---
Date of Service June 29, 2019 Assessment & Plan (1) Chest pain: EKG did not show ischemic findings, troponin was negative Chest x-ray without any significant findings Lower extremity venous Doppler without DVT, making venous thromboembolic disease quite unlikely Vital signs stable Exam reassuring (Dr. Fajardo did note hearing bibasilar rales when she saw him earlier, but in follow-up he essentially has clear lungs/may be the faintest of rales base leftsuggesting (especially combined with a reassuring chest x-ray) that he may have had a bit of basilar atelectasis when she examined him earlier). Appears medically stablewould continue current plan and observation. Given his myriad of somatic complaints, the medical team will be more than happy to continue to follow as needed in trying to help tease apart what symptoms may truly be organic versus which are more psychogenicat least in terms of being able to initiate appropriate diagnostic work-ups when necessary. Subjective I personally examined the patient and verified all schultz points of history and exam, discussed case, and agree with decision making with Dr Fajardo. Patient seen personally after diagnostics were completed. Eating dinner and sitting at a table in no distress. Earlier whenever I come to see him he was taking a shower. When I asked how he is feeling he notes that he feels numb all over. He makes no mention of the chest pain that he seemed to be complaining of earlier. After I examined him he starts to note that his left kidney is hurting him. Full HPI and review of systems are obviously quite difficult to ascertain Review of Systems Review of Systems: Unobtainable due to mental health condition Physical Exam Physical Exam: In general he is awake and alert appears in absolutely no distress, sitting closed in street clothes at a table eating pot roast and carrots. He shows no difficulty eating and no distress while he is eating. HEENT normocephalic atraumatic mucous membranes are moist. Lungs are clear to auscultation bilaterally no rales rhonchi or wheezeshe did maybe have a very faint questionable rale base left but it seemed to be less the more he breathed. No accessory muscle use good effort. Skin shows no rashes no pallor or icterus. Shows no focal neurologic deficits-cranial nerves II through XII are grossly intact gross motor and sensory are intact as he is sitting and eating. Results & Data Vital Signs (Past 12 Hours) Vital Signs Temp Pulse BP Pulse Ox 06/29/19 12:06 95 06/29/19 11:40 76 104/69 06/29/19 08:10 97.3 F L 98 H 117/74 PG Care Time/CCT Total # of Minutes Spent Total Time Spent with Patient: Total time spent is greater than 50% in coordination of care (as documented) at patient's floor/unit and/or counseling patient: (1) Chest pain Chest pain type: unspecified Qualified Code(s): R07.9 - Chest pain, unspecified
[2019-06-29] MEDS: DIVALPROEX EXTENDED RELEASE 250 MG TABCR PO SCH (21:21)
[2019-06-29] MEDS: risperiDONE 3 MG TABLET PO SCH (21:21)
[2019-06-29] MEDS: INSULIN GLARGINE SOLOSTAR 100 UNITS/ML 3 ML PEN SQ SCH (21:22)
--- NOTE | 2019-06-29 22:15 | Electrocardiogram Report ---
Test Reason : Blood Pressure : / mmHG Vent. Rate : 077 BPM Atrial Rate : 077 BPM P-R Int : 186 ms QRS Dur : 082 ms QT Int : 366 ms P-R-T Axes : 078 -37 057 degrees QTc Int : 414 ms Sinus rhythm with Premature atrial complexes Left axis deviation Inferior infarct Possible Anterior infarct Abnormal ECG When compared with ECG of 23-JUN-2019 12:38, Premature atrial complexes are now Present Confirmed by Kain Pop ([id number]) on 06/29/2019 10:15:14 PM Referred By: REFERRED SELF Confirmed By:Kain Pop
--- NOTE | 2019-06-30 08:52 | Psychiatric Progress Note ---
Date of Service June 30, 2019 Impression / Recommendations Impression 74-year-old male with a history of coronary artery disease status post CABG 1 month ago at [place] who presented with delusional disorder. He was hospitalized on the medical service first for CHF, then for multiple medical problems, and was seen by the psychiatry consult service on both hospitalizations. He has also been having episodes of unresponsiveness best described as conversion reactions. His family reports that he has been increasingly focused on delusions since February 2019, perseverating on them to the point that he was unable to function, and has been threatening and aggressive to the point that his no longer feels safe at home with him. He had been prescribed citalopram for unclear reasons, and it has now been discontinued as he had some manic symptoms. He has been started on risperidone which has been titrated to 1 mg twice daily and 3 mg at bedtime, and Depakote was added to target irritability, mood lability, and aggression. He is labile, with episodes of agitation and threatening staff here, to the extent that he had to be given IM medications and be placed on an involuntary commitment on 06/27/2019. He is stating unwillingness to return home to live with his , and would like to go to supportive living in [place], but does not apparently have the financial resources to do this. The family meeting scheduled with his and daughter had to be canceled due to his aggressive behavior, and will need to be rescheduled next week. His sleep remains suboptimal, and we will schedule Depakote at bedtime to try to help with that. He has made repeated t hreats towards a specific staff member here after they informed him they could not see the worms he believes are infesting him, and has not responded to attempts to redirect him. Inpatient treatment remains medically necessary due to the severity of symptoms and safety concerns of discharge. (1) Delusional disorder, somatic type: 06/25 -continue risperidone 1 mg 3 times daily. FLP from 06/06/2019 was within normal limits. Fasting glucose 158. -Extensive medical work-up of psychosis and neurological symptoms including: Head CT, brain MRI, EEG, prolactin, PTH, cortisol, RAÚL, RPR, Lyme IgG and IgM, HIV, hepatitis C, Neurology and orthopedic consultations. -Differential includes mood disorder (has displayed manic symptoms) and frontotemporal dementia. -Patient unable to reality test. Continue to offer support and strategies for distress tolerance. -Obtain collateral information and involve family as able. -Encourage patient to attend to participate in groups and therapy. Work on healthy coping skills and discharge safety plan. 06/26 - Continue risperidone and consolidate to 1mg qam and 2mg hs (which may also help with sleep). - Patient very poorly responsive to attempts to reframe his concerns as being influenced by psychological distress, and absolutely unable to reality test. - Recommend family meeting with his and daughter once he is able to tolerate it. is reportedly currently medically ill and quite stressed, and is he has been threatening her, we will postpone this for now. - Refer for outpatient case management services and explore housing options, as he is requesting supportive living referral. 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 It is recognized that this disorder, like all delusional disorders, tend to respond poorly to treatment. In this case, it will be important to avoid persistent reality testing, and the treatment team and I have discussed the fact that while we can and should provide reality testing when the patient escalates, we should not subsequently engage in any form of what might be considered a debate or attempt to convince. 06/28 - Lead level is low (2). - Now on a 302 involuntary commitment after episode of agitation and threatening staff yesterday, related to his delusions. - Delusions continue, risperidone just increased to total of 5mg daily in divided dosing. Start trial of low-dose Depakote for irritability/anger outbursts/agitation -250 mg at bedtime. - Family meeting canceled due to agitation. Will reschedule once he is in better behavioral control. - Continue private room due to agitation and psychosis. 06/29 - Continue private room, as patient continues to have episodes of agitation, and has been making threats towards staff. He is unpredictable and does not respond well to attempts to redirect him. - Check heavy metal screen given his reports of past toxin exposure. - Increase risperidone to 1 mg 3 times daily and 3 mg at bedtime to target ongoing delusions. EKG today showed QTC 414. 06/30 - Patient remains delusional and unable to reality test. He continues to threaten harm to staff, and called his and threatened her. There are still guns in the home, although is working on getting them removed. - File for 303 involuntary commitment due to ongoing psychosis with threats to harm others. - Family meeting scheduled with his daughter and this afternoon. - SW to follow up on [facility] referral. (2) Intermittent explosive disorder: 06/29 - patient has a long history of anger problems, with rapid and unpredictable mood changes, and aggressive and threatening behavior. He does not have sufficient mood symptoms to support a bipolar diagnosis, and IED may be the most appropriate diagnosis. He was started on Depakote XR 250 mg at bedtime yesterday, and we will titrate as tolerated. (3) Conversion disorder: 06/25 - address psychosocial stressors, identify healthy coping skills, and provide reassurance and support. - Discussed with Dr. Aparicio, and patient has future unresponsive events, recommended vital signs, blood glucose, and if parameters are normal, contacting the hospitalist to evaluate the patient. - He was seen by orthopedics today, who recommended physical therapy for global weakness. PT consult ordered. 06/27 - The patient tells us that he feels that he is having transient ischemic attacks, and refers to his periods of paralysis and confusion by that name. - In addition to a conversion disorder, it is possible that the patient is experiencing prolonged adverse effects associated with general anesthesia or, as the patient suggests, brief transient ischemic attacks, although as described, these episodes are not typically consistent with TIAs. (4) Eczematous dermatitis: 06/26 - reviewed dermatology note from 06/04/[address] Mac; patient had last been seen in 03/2019, reported multiple episodes of itching, burning, irritated areas of skin, which had previously responded to IM Kenalog. He received another injection of IM Kenalog, was diagnosed with eczematous dermatitis, and appropriate bathing practices were reviewed. Daily moisturization with Cetaphil cream was recommended, and avoidance of applying anything else to the skin. -Patient has been receiving triamcinolone topically once daily here. Will add Eucerin cream as skin appears dry and irritated. No signs of infection or parasites, although he has multiple areas of excoriation on his lower and upper extremities, face, and neck. 06/27 - As previously noted, the patient tends to draw our attention to patches of irritated skin and eczematous dermatitis, and refer to the associated skin "flaking" as constituting worms or "bugs" that he believes is crawling from his skin. He also experiences tingling and paresthesias that also seem to be contributing to his belief that he is contaminated with parasites. This is not atypical in cases of delusional parasitosis. - Treating the patient's current condition is important within the context of his associated psychiatric complaints. (5) Fracture of left distal radius: 06/26 - appreciate orthopedic recommendations; cast remains in place, but patient asking to have it removed. 06/29 - cast removed, continue brace. Laboratory work-up for poor healing per Ortho: Iron, TIBC, transferrin all within normal limits. LFTs show alkaline phosphatase 127 (was 96 on admission). Total protein normal, albumin 3.1. Alpha-1 antitrypsin, ceruloplasmin, and RAÚL screen pending. Cholesterol 90. 06/30 - PT consult requested but they have not seen him yet. -Orthopedics is recommending outpatient follow-up in 4 weeks. (6) Hypertension: Continue furosemide 20 mg daily and metoprolol 75 mg twice daily. Continue home dose of Imdur. -Follow-up with medicaid nurse as an outpatient. (7) Alcohol abuse: History of alcohol abuse, no significant use in the past 3 years. (8) Vitamin B12 deficiency: Vitamin B12 from 06/15/2019 was 219. Folate 4.16. Vitamin B 1 6. Continue vitamin B12 1000 mcg daily, folic acid 1 mg daily, and thiamine 200 mg twice daily. (9) Diabetes mellitus, type 2: 06/25 -continue heart healthy, carb consistent diabetic diet, and insulin regimen per diabetic pharmacist. (10) Stage III chronic kidney disease: 06/19 -creatinine returned to baseline as of 06/24/2019 (1.18); was as high as 1.65 on 06/23/2019. (11) Code status needs review: Patient was DNR/DNI on the medical floor. He voices that he continues to want this. He expresses understanding of this, despite his psychosis. It was documented during other admissions that he was DNR/DNI. He has not been suicidal. (12) Coronary artery disease: 06/29 -reporting chest pain today, difficult to tell how much of his reported symptoms are influenced by psychosis -ordered EKG, vital sign recheck, and blood glucose. -Consulted the hospitalist service, and spoke with Dr. Cunningham. Appreciate assistance and recommendations. 06/30 - Appreciate recommendations from Drs. Fajardo and Pili: Monitor weight, and if trending up, contact them for follow-up. (13) Cognitive disorder: 06/30 - cognitively impaired, with a 15/30 on the MoCA today. Unclear if he has been diagnosed with a neurocognitive disorder in the past. 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 He also has a history of alcohol abuse which could be contributing to cognitive dysfunction. We will continue to monitor as his psychosis hopefully improves. -Prior to discharge, we will need to discuss recommendations regarding not driving until he is fully stabilized and is cleared by his physician. He is not yet ready to tolerate this discussion. Present on Admission?: Yes Risk Factors Assessment Male: Yes : Yes Do You Have Access To A Gun?: Yes (Multiple guns in the home) Health Problems: Yes Mental Health Diagnoses: Yes Substance Use Disorders: Yes Previous Attempt: No Previous Psychiatric Hospitalization: Yes Hopelessness: No Smoker: No Protective Factors Assessment Episcopal Beliefs: No : Yes (But states he is going to file for divorce) Responsible for Young Children: No Employed: No Stable Relationships: No Supportive Family: Yes Interval History Identifying Information TIAN GRANT is a 74-year-old M who currently lives in [place] with his , has a history of delusional parasitosis and conversion disorder, and was admitted on 06/25/19 13:47 on a 201 voluntary commitment for delusional parasitosis. He was initially admitted to the hospitalist service 06/14/2019 - 06/21/2019, was transferred to the [facility], but then transferred back to the hospitalist service 06/23/2019 after an episode of unresponsiveness. He had a negative medical work-up and was been medically cleared and transferred back to the behavioral health unit 06/25/2019. Chief Complaint " Swell, can't complain". Review of Systems Notes Episode of urinary incontinence overnight, states this is never been a problem before. Denies frequency, urgency, dysuria. Denies constipation and diarrhea, nausea and vomiting. Chest pain has resolved. Left hand swelling (brace intact) Sleep Information Total Hours of Sleep: 5.5 Sleep Comments: Tian slept through the night and was incontinent of urine. Meal Information Percent Meal Consumed - Breakfast: 100 Percent Meal Consumed - Lunch: 100 Percent Meal Consumed - Dinner: 100 Subjective Subjective Patient was seen & assessed and interval progress reviewed with nursing and social work. Staff report he continues to threaten a particular staff member who had attempted to engage him in reality testing, stating that he was going to harm her and did not care if security came or he went to long term. He at times made inappropriate, threatening statements in group. He remains focused on his belief that he is infested with bugs which was caused by chemical exposure, and says that his goal of treatment is to "get rid of the chemicals." He had a good visit with a friend last evening. His called to inform staff this morning that she is afraid of him, and that he called her 4 days ago and threatened to come home, get the guns, and said "it will be a bloodbath." He has a meeting scheduled with his daughter in person and by phone for this afternoon. He was seen by the hospitalist yesterday after he reported chest pain, and had bibasilar crackles in his lower lung bases, tympanic and distended abdomen, and tight dry tender skin to the left lower extremity. He reported ongoing chest tightness and shortness of breath, and had gained 8 pounds in the past 6 days. They were concerned for CHF exacerbation and DVT, and he had a lower extremity ultrasound that was negative for DVT. Chest x-ray was negative for fluid buildup or infectious process, and NT-proBNP was negative. On my assessment, he states his mood is "great, #10, high like an three affiliated." He is aware there is a family meeting scheduled for this afternoon, and says he is glad his is not attending as "I can't take anymore of her bullcrap. I am filing for divorce, she doesn't know that yet." He continues to say he can go live at his cousin's personal group home in [place], saying he spoke to his cousin who told him "he'll play the magic game" to get him in, and believes his insurance will cover all of the costs. If that does not work out, he says he can go stay with a friend in [place]. He continues to endorse anger outbursts, but blames others, stating "the only time I feel angry is when someone called me a liar like that lady did the other day." He says that he knows staff wanted to hurt him as "they ganged up on me, security in them." He denies thoughts of harming himself or anyone else today. He endorses memory problems, stating he has been told in the past by doctors that he had "short memory." Physical Exam Psychiatric Orientation: alert, oriented to person, oriented to place, oriented to time and cooperative Apperance: appropriately dressed, appropriately groomed and appeared stated age Brace on left wrist. Seated in no acute distress. Eye Contact: good eye contact Motor Behavior: steady gait and station and no abnormal motor movements Takes an extended period of time to eat and drink. Speech: normal rate/rhythm/volume of speech Hyperverbal. Affect: euthymic affect and mood congruent with affect "Great" Thought Process: + tangential thought process and + perseveration Thought Content: + delusions (Of insect infestation and chemical exposure) Suicidal Thoughts: denies suicidal thoughts Homicidal Thoughts: denies homicidal thoughts Hallucinations: + visual hallucinations (Thinks that pieces of lint, paper, and crumbs are bugs coming out of his skin); no auditory hallucinations Cognition: language grossly intact; + recent memory not intact and + attention not intact MoCA: , missing 1 for visuospatial/executive (cube), 5 for attention, 2 for language, 2 for abstraction, and 5 for delayed recall. Insight: + severely impaired insight Judgement: + severely impaired judgement Vital Signs (Past 24 Hours) Last Vital Signs Temp 36.5 C 06/30/19 06:00 Pulse 93 H 06/30/19 06:00 Resp 18 06/30/19 06:00 BP 107/69 06/30/19 06:00 Pulse Ox 95 06/29/19 12:06 Results & Data Laboratory Results Laboratory Results - last 24 hr 06/29/19 06/29/19 06/29/19 11:08 11:27 12:36 Sodium 142 Potassium 4.1 Chloride 109 H Carbon Dioxide 26 Anion Gap 7.0 BUN 26 H Creatinine 1.22 Est Cr Clr Drug Dosing 60.4 Est GFR ( Amer) 67.7 Est GFR (Non-Af Amer) 58.5 BUN/Creatinine Ratio 21.4 H Glucose 147 H POC Glucose 241 H Calcium 8.7 Troponin I < 0.015 NT-Pro-B Natriuret Pep 393 Urine Color Urine Appearance Urine pH Ur Specific Patterson Urine Protein Urine Glucose (UA) Urine Ketones Urine Blood Urine Nitrite Urine Bilirubin Urine Urobilinogen Ur Leukocyte Esterase Urine WBC (Auto) Urine RBC (Auto) U Hyaline Cast (Auto) U Epithel Cells (Auto) Urine Bacteria (Auto) Heavy Metal Source Pending Arsenic Pending Lead Pending Mercury Pending 06/29/19 06/29/19 06/29/19 13:21 14:58 17:14 Sodium Potassium Chloride Carbon Dioxide Anion Gap BUN Creatinine Est Cr Clr Drug Dosing Est GFR ( Amer) Est GFR (Non-Af Amer) BUN/Creatinine Ratio Glucose POC Glucose 131 H 158 H Calcium Troponin I NT-Pro-B Natriuret Pep Urine Color Yellow Urine Appearance Cloudy A Urine pH 5.0 Ur Specific Patterson 1.014 Urine Protein Negative Urine Glucose (UA) Negative Urine Ketones Negative Urine Blood Negative Urine Nitrite Negative Urine Bilirubin Negative Urine Urobilinogen Negative Ur Leukocyte Esterase Negative Urine WBC (Auto) 1-5 Urine RBC (Auto) 0-4 U Hyaline Cast (Auto) 1-5 U Epithel Cells (Auto) 0-5 Urine Bacteria (Auto) Negative Heavy Metal Source Arsenic Lead Mercury 06/29/19 06/30/19 20:43 07:51 Sodium Potassium Chloride Carbon Dioxide Anion Gap BUN Creatinine Est Cr Clr Drug Dosing Est GFR ( Amer) Est GFR (Non-Af Amer) BUN/Creatinine Ratio Glucose POC Glucose 226 H 168 H Calcium Troponin I NT-Pro-B Natriuret Pep Urine Color Urine Appearance Urine pH Ur Specific Patterson Urine Protein Urine Glucose (UA) Urine Ketones Urine Blood Urine Nitrite Urine Bilirubin Urine Urobilinogen Ur Leukocyte Esterase Urine WBC (Auto) Urine RBC (Auto) U Hyaline Cast (Auto) U Epithel Cells (Auto) Urine Bacteria (Auto) Heavy Metal Source Arsenic Lead Mercury Current Inpatient Medications Current Inpatient Medications: Current Inpatient Medications Acetaminophen (Tylenol) 650 mg PO Q4H PRN PRN Reason: Headache or Minor Fever Stop: 07/25/19 14:02 Al Hydrox/Mg Hydrox/Simethicone (Maalox) 30 ml PO Q4H PRN PRN Reason: GI Upset Stop: 07/25/19 14:02 Aspirin (Ecotrin Ectab) 81 mg PO DAILY [facility] Stop: 07/26/19 08:59 Last Admin: 06/29/19 08:21 Dose: 81 mg Documented by: Atorvastatin Calcium (Lipitor) 80 mg PO QAM [facility] Stop: 07/26/19 08:59 Last Admin: 06/29/19 08:22 Dose: 80 mg Documented by: Bismuth Subsalicylate (Kaopectate) 15 ml PO PRN PRN PRN Reason: Loose Stool Stop: 07/25/19 14:02 Cyanocobalamin (Vitamin B-12) 1,000 mcg PO DAILY [facility] Stop: 07/26/19 08:59 Last Admin: 06/29/19 08:25 Dose: 1,000 mcg Documented by: Dextrose (Dextrose 50%) 25 - 50 ml IV UD PRN; Protocol PRN Reason: Hypoglycemia Protocol Stop: 07/25/19 14:44 Divalproex Sodium (Depakote Extended Release) 250 mg PO [facility] Stop: 07/28/19 21:59 Last Admin: 06/29/19 21:21 Dose: 250 mg Documented by: [facility]ot[facility] ([facility]epcid) [facility] Stop: 07/26/19 08:59 Last Admin: 06/29/19 08:23 Dose: 40 mg Documented by: Fexofenadine HCl (Nikky) 60 mg PO BID [facility] Stop: 07/25/19 20:59 Last Admin: 06/29/19 21:19 Dose: 60 mg Documented by: Folic Acid (Folvite) [facility] Stop: 07/26/19 08:59 Last Admin: 06/29/19 08:21 Dose: 1 mg Documented by: [facility]urosemide (Lasix) [facility] Stop: 07/26/19 08:59 Last Admin: 06/29/19 08:22 Dose: 20 mg Documented by: Glucagon (Glucagen) 1 mg IM UD PRN; Protocol PRN Reason: Hypoglycemia Protocol Stop: 07/25/19 14:44 Glucose (Glucose 40%) 15 - 30 gm PO UD PRN; Protocol PRN Reason: Hypoglycemia Protocol Stop: 07/25/19 14:44 Glucose (Dex4 Glucose) 4 - 8 tabs PO UD PRN; Protocol PRN Reason: Hypoglycemia Protocol Stop: 07/25/19 14:44 Haloperidol (Haldol) 2.5 mg PO Q4H PRN PRN Reason: Agitation Stop: 07/27/19 14:46 Haloperidol Lactate (Haldol) 5 mg IM Q6H PRN PRN Reason: Agitation Stop: 07/27/19 14:44 Hydroxyzine HCl (Vistaril) 50 mg PO HSZ PRN PRN Reason: Insomnia Stop: 07/25/19 14:02 Hydroxyzine HCl (Vistaril) 25 mg PO Q4H PRN PRN Reason: Anxiety Stop: 07/25/19 14:02 Last Admin: 06/28/19 01:35 Dose: 25 mg Documented by: Insulin Aspart (Novolog Flexpen) 0 units SC ACHS [facility] Stop: 07/25/19 17:14 Last Admin: 06/29/19 21:25 Dose: 7 units Documented by: Insulin Glargine (Lantus Solostar Pen) 30 units SQ HS [facility] Stop: 07/28/19 21:59 Last Admin: 06/29/19 21:22 Dose: 30 units Documented by: Isosorbide Mononitrate (Imdur Extended Rel) 60 mg PO QAM [facility] Stop: 07/26/19 08:59 Last Admin: 06/29/19 08:21 Dose: 60 mg Documented by: Lorazepam (Ativan) 1 mg IM Q6H PRN PRN Reason: Agitation Stop: 07/27/19 14:59 Lorazepam (Ativan) 1 mg PO Q6H PRN PRN Reason: Agitation Stop: 07/27/19 14:47 Magnesium Hydroxide (Milk Of Magnesia) 30 ml PO DAILY PRN PRN Reason: Constipation Stop: 07/25/19 14:02 Metoprolol Tartrate (Lopressor) 75 mg PO BID [facility] Stop: 07/25/19 20:59 Last Admin: 06/29/19 21:19 Dose: 75 mg Documented by: Miscellaneous (Carbohydrates For Hypoglycemia) 15 - 30 gm PO UD PRN PRN Reason: Hypoglycemia Treatment Stop: 07/25/19 14:44 Miscellaneous Information (Consult Glycemic Management Pharmacy) 1 ea N/A UD PRN PRN Reason: Consult Stop: 07/26/19 09:10 Multi-Ingredient Cream (Hydrocerin) 1 appln EXT Q8H PRN PRN Reason: dry skin Stop: 07/26/19 10:33 Nitroglycerin (Nitrostat) 0.4 mg SL Q5M PRN PRN Reason: Chest Pain Stop: 07/25/19 14:15 Pantoprazole Sodium (Protonix) 40 mg PO DAILY [facility] Stop: 07/26/19 08:59 Last Admin: 06/29/19 08:23 Dose: 40 mg Documented by: Polyethylene Glycol (Miralax Powder Packet) 17 gm PO QAM [facility] Stop: 07/26/19 08:59 Last Admin: 06/29/19 08:16 Dose: 17 gm Documented by: Potassium Chloride (Klor-Con M20) 20 meq PO QAM [facility] Stop: 07/26/19 08:59 Last Admin: 06/29/19 08:22 Dose: 20 meq Documented by: Risperidone (Risperdal) 1 mg PO 0900,1400 [facility] Stop: 07/28/19 08:59 Last Admin: 06/29/19 14:01 Dose: 1 mg Documented by: Risperidone (Risperdal) 3 mg PO HS [facility] Stop: 07/27/19 21:59 Last Admin: 06/29/19 21:21 Dose: 3 mg Documented by: Senna/Docusate Sodium (Senokot S) 1 tab PO QAM [facility] Stop: 07/26/19 08:59 Last Admin: 06/29/19 08:24 Dose: 1 tab Documented by: Sodium Chloride ([place] Nasal) 1 - 2 sprays NA PRN PRN PRN Reason: Nasal Dryness/Congestion Stop: 07/25/19 14:02 Thiamine HCl (Vitamin B-1) 200 mg PO BID [facility] Stop: 07/25/19 20:59 Last Admin: 06/29/19 21:20 Dose: 200 mg Documented by: Topiramate (Topamax) 100 mg PO BID [facility] Stop: 07/25/19 20:59 Last Admin: 06/29/19 21:19 Dose: 100 mg Documented by: Tramadol HCl (Ultram) 50 mg PO Q6H PRN PRN Reason: pain Stop: 07/25/19 14:15 Last Admin: 06/29/19 23:45 Dose: 50 mg Documented by: Triamcinolone Acetonide (Kenalog 0.1%) 1 appln EXT TID [facility] Stop: 07/25/19 20:59 Last Admin: 06/29/19 21:35 Dose: Not Given Documented by: Mental Health & Subst Abuse Tx Therapist Name of Therapist: denies Distribution Field Engineer Name of Distribution Field Engineer: denies Post Discharge Appointments Primary Care Physician Name Of Family Doctor: Fox Moran Contact Information Discharge Discharge Address: [address] [place] [id number] (1) Diabetes mellitus, type 2 Diabetes mellitus complication detail: with polyneuropathy Diabetes mellitus complication status: with neurologic complications Diabetes mellitus hydrogeologist insulin use: with hydrogeologist use Qualified Code(s): E11.42 - Type 2 diabetes mellitus with diabetic polyneuropathy; 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
[2019-06-30] MEDS: FEXOFENADINE 60 MG TAB PO SCH ×2 (08:59→22:06)
[2019-06-30] MEDS: ASPIRIN 81 MG ECTAB PO SCH (08:59)
[2019-06-30] MEDS: FOLIC ACID 1 MG TAB PO SCH (09:00)
[2019-06-30] MEDS: POTASSIUM CHLORIDE 20 MEQ TABCR PO SCH (09:01)
[2019-06-30] MEDS: FUROSEMIDE 20 MG TAB PO SCH (09:01)
[2019-06-30] MEDS: FAMOTIDINE 40 MG TABLET PO SCH (09:02)
[2019-06-30] MEDS: ATORVASTATIN 40 MG TAB PO SCH (09:02)
[2019-06-30] MEDS: THIAMINE HCL 100 MG TAB PO SCH ×2 (09:03→22:08)
[2019-06-30] MEDS: DOCUSATE SODIUM/SENNA 50/8.6MG TAB PO SCH (09:03)
[2019-06-30] MEDS: risperiDONE 1 MG TABLET PO SCH ×3 (09:03→16:37)
[2019-06-30] MEDS: TOPIRAMATE 100 MG TAB PO SCH ×2 (09:03→22:07)
[2019-06-30] MEDS: PANTOprazole 40 MG TAB PO SCH (09:03)
[2019-06-30] MEDS: CYANOCOBALAMIN 500 MCG TABLET (VITAMIN B-12) PO SCH (09:04)
[2019-06-30] MEDS: TRIAMCINOLONE ACET 0.1% OINT 15 GM TUBE EXT SCH ×3 (09:11→22:06)
[2019-06-30] MEDS: INSULIN ASPART 100 UNITS/ML 3 ML PEN SC SCH ×4 (09:24→22:29)
[2019-06-30] MEDS: POLYETHYLENE (MIRALAX) 17 GM PACK PO SCH (09:26)
[2019-06-30] MEDS: ISOSORBIDE MONO EXTENDED REL 60 MG TABCR PO SCH (09:26)
[2019-06-30] MEDS: METOPROLOL TARTRATE 25 MG TAB PO SCH ×2 (09:27→22:06)
--- NOTE | 2019-06-30 10:11 | Pharmacy Report ---
Pharmacy Glycemic Short Note 2 - Date of Service June 30, 2019 - Glycemic Short BSG Results (Last 24 hours): 06/29/19 06/29/19 06/29/19 11:27 12:36 13:21 Glucose 147 H POC Glucose 241 H 131 H 06/29/19 06/29/19 06/30/19 17:14 20:43 07:51 Glucose POC Glucose 158 H 226 H 168 H OUTPATIENT ANTIDIABETIC REGIMEN: * Lantus 40-60 units HS * Humalog 10-15 units prior to meals ASSESSMENT: Pt's BSGs elevated at times: [phone]/dL. Possible etiology includes snacking between meals. FBS today is reasonable. No acute change in insulin requirements are currently anticipated. We will continue with insulin as ordered: PLAN FOR INPATIENT GLYCEMIC CONTROL: * Basal insulin: * Lantus 30 units qHS * Bolus insulin: * NovoLog per scale ACHS or Q6hrs while NPO * Goal Range: Low 110 mg/dL - High 140 mg/dL * Correction Factor: 20 mg/dL/unit * Nutritional / Prandial insulin per carb ratio of 1 unit per 7 grams CHO consumed PLAN FOR DISCHARGE: * HbA1c = 6.5% on 05/15/19 * Goal A1c less than 7%. * Home dose of Lantus was reportedly causing hypoglycemia for patient. Recommend decreasing Lantus dose to 25 units daily at bedtime and use Humalog before meals on a sliding scale based on BSGs.
--- NOTE | 2019-06-30 15:31 | Family Medicine Consultation ---
Date of Consultation June 30, 2019 Assessment & Plan (1) Congestive heart failure (CHF): NT-Pro BNP negative on 06/29; CXR from 06/29 without signs of pulmonary edema. Patient euvolemic on exam 06/29. Should monitor daily weight and to call with weight changes >2 pounds within one day. Restrict fluid intake to 1.5L History of Present Illness Attending Physician: Caitlin Robles MD History of Present Illness Patient was discussed over the phone today with Dr. Robles, who expressed concerns regarding CHF exacerbation, as patient has PMHx of CHF with frequent exace rbations. Allergies Allergy/AdvReac Type Severity Reaction Status Date / Time morphine AdvReac Severe "STOPS MY Verified 06/14/19 08:08 HEART" hydromorphone [From Dilaudid] AdvReac Intermediate unresponsiv Verified 06/14/19 08:08 eness trazodone AdvReac Intermediate GI UPSET Verified 06/14/19 08:08 diazepam AdvReac Mild HALLUCINATE Verified 06/14/19 08:08 S propoxyphene AdvReac Mild DRUG Verified 06/14/19 08:08 INTOLERANCE Home Medications Home Medications Medication Instructions Recorded Confirmed Type pen needle, diabetic 31 gauge x #30 ea 12/03/18 06/14/19 Rx 5/16" nitroglycerin 0.4 mg sublingual 0.4 mg SL Q5M PRN #1 tab 02/05/19 06/25/19 History tablet metoprolol tartrate 75 mg tablet 75 mg PO BID #60 tab 05/30/19 06/25/19 Rx acetaminophen [Tylenol Extra 1,000 mg PO Q8H PRN 06/05/19 06/25/19 History Strength] polyethylene glycol 3350 [Miralax] 17 gm PO QAM 06/05/19 06/25/19 History sennosides-docusate sodium [Senna 1 tab PO QAM 06/05/19 06/25/19 History with Docusate Sodium] topiramate [Topamax] 100 mg PO BID 06/05/19 06/25/19 History tramadol [Ultram] 50 mg PO Q6H PRN 06/05/19 06/25/19 History atorvastatin 80 mg tablet 80 mg PO QAM #90 tab 06/12/19 06/25/19 Rx isosorbide mononitrate 60 mg 60 mg PO QAM #90 tab 06/12/19 06/25/19 Rx tablet,extended release 24 hr potassium chloride 20 mEq 20 meq PO QAM #90 tab 06/12/19 06/25/19 Rx tablet,extended release pantoprazole 40 mg PO DAILY 06/14/19 06/25/19 History aspirin [Ecotrin Low Strength] 81 mg PO DAILY #30 tab 06/21/19 06/25/19 Rx cyanocobalamin (vitamin B-12) 1,000 mcg PO DAILY #30 cap 06/21/19 06/25/19 Rx fexofenadine 60 mg PO BID #60 tab 06/21/19 06/25/19 Rx folic acid 1 mg PO QAM #30 tab 06/21/19 06/25/19 Rx thiamine HCl (vitamin B1) [Vitamin 200 mg PO BID #120 tab 06/21/19 06/25/19 Rx B-1] triamcinolone acetonide 1 applic EXT TID 7 Days #30 gm 06/21/19 06/25/19 Rx famotidine 40 mg PO QAM 1 Days #1 tab 06/23/19 06/25/19 Rx Lantus Solostar U-100 Insulin 30 unit SUBCUT HS 06/25/19 06/25/19 History furosemide 20 mg PO QAM #30 tab 06/25/19 06/25/19 Rx risperidone 1 mg PO TID 06/25/19 06/25/19 History Patient History Medical History (Updated 06/30/19 @ 22:04 by Mehul Short, DO) Atypical chest pain (Resolved) Benign colonic polyp (Chronic) CAD in [place] artery Cellulitis Cognitive disorder (Chronic) Controlled type 2 diabetes mellitus with neurologic complication, with long-term current use of insulin (Resolved) Conversion disorder (Resolved) Coronary artery disease Delusional disorder, somatic type Diabetes mellitus, type 2 Diabetic peripheral neuropathy (Chronic) Dyslipidemia (Resolved) Eczematous dermatitis Esophageal reflux (Chronic) Fracture of left distal radius History of colon polyps (Chronic) History of tobacco use (Resolved) Hyperlipidemia (Chronic) Hypertension Intermittent explosive disorder Kidney stone on right side (Resolved) Migraines, neuralgic Myocardial Infarction (Resolved) 2004--follows with Dr. Mejia Nephrolithiasis (Resolved) Neurological deficit present (Resolved) Neuropathy (Chronic) Osteoarthritis (Chronic) Raynauds phenomenon (Chronic) Stage III chronic kidney disease Tubular adenoma of colon (Resolved) Vitamin D deficiency (Chronic) Wound of left foot (Resolved) Surgical History History of arthroscopy of left knee (Resolved) History of cardiac cath (Resolved) x3-4, last 2014 History of carpal tunnel release of both wrists (Resolved) History of colonoscopy (Resolved) History of heart artery stent (Resolved) x1--1999 History of lithotripsy (Resolved) x2 History of lumbar discectomy (Resolved) x2 History of open reduction and internal fixation (ORIF) procedure (Resolved) left ankle--hardware in place History of right cataract extraction (Resolved) History of tonsillectomy and adenoidectomy (Resolved) 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 ; Second Hand Exposure: No ; Hx Alcohol Use: No Hx Substance Use: No Physical Exam Physical Exam: Patient not examined today, 06/30 Results & Data Vital Signs (Past 12 Hours) Vital Signs Temp Pulse Pulse Resp BP BP 06/30/19 09:19 93 H 16 109/68 06/30/19 06:00 36.5 C 96 H 93 H 18 92/57 L 107/69 Resident Activity Tracking Resident Involvement: Resident Care Provided Care Provided: Adult Hospital Medicine
[2019-06-30] MEDS: DIVALPROEX EXTENDED RELEASE 250 MG TABCR PO SCH (22:07)
[2019-06-30] MEDS: risperiDONE 3 MG TABLET PO SCH (22:08)
[2019-06-30] MEDS: INSULIN GLARGINE SOLOSTAR 100 UNITS/ML 3 ML PEN SQ SCH (22:09)
--- NOTE | 2019-06-30 22:09 | Hospitalist Consultation ---
Date of Consultation June 30, 2019 Assessment & Plan (1) Cellulitis: S- Pt seen for consult given staff concerns of increased L LE swelling and redness. Upon interview, pt notes same concerns. States swelling worse today. Associated calf tenderness. Otherwise denies any CP, SOB, skin d/c, fevers, chills, sweats. O- b/l LE swelling with L LE erythema below knee. 2+ b/l LE edema. Mildly TTP. Neg Joseph's. LTAB. RRR. A/P: Pt with neg L LE dopplers on 06/29. Given concern for increased swelling and to r/o new acute DVT, will order another U/S study. Swelling likely 2/2 fluid accumulation from CHF, which is being tx for. Low concern for L LE cellulitis, but will tx empirically with PO Keflex for 7 days and monitor. History of Present Illness Attending Physician: Caitlin Robles MD Allergies Allergy/AdvReac Type Severity Reaction Status Date / Time morphine AdvReac Severe "STOPS MY Verified 06/14/19 08:08 HEART" hydromorphone [From Dilaudid] AdvReac Intermediate unresponsiv Verified 06/14/19 08:08 eness trazodone AdvReac Intermediate GI UPSET Verified 06/14/19 08:08 diazepam AdvReac Mild HALLUCINATE Verified 06/14/19 08:08 S propoxyphene AdvReac Mild DRUG Verified 06/14/19 08:08 INTOLERANCE Home Medications Home Medications Medication Instructions Recorded Confirmed Type pen needle, diabetic 31 gauge x #30 ea 12/03/18 06/14/19 Rx /16" nitroglycerin 0.4 mg sublingual 0.4 mg SL Q5M PRN #1 tab 02/05/19 06/25/19 History tablet metoprolol tartrate 75 mg tablet 75 mg PO BID #60 tab 05/30/19 06/25/19 Rx acetaminophen [Tylenol Extra 1,000 mg PO Q8H PRN 06/05/19 06/25/19 History Strength] polyethylene glycol 3350 [Miralax] 17 gm PO QAM 06/05/19 06/25/19 History sennosides-docusate sodium [Senna 1 tab PO QAM 06/05/19 06/25/19 History with Docusate Sodium] topiramate [Topamax] 100 mg PO BID 06/05/19 06/25/19 History tramadol [Ultram] 50 mg PO Q6H PRN 06/05/19 06/25/19 History atorvastatin 80 mg tablet 80 mg PO QAM #90 tab 06/12/19 06/25/19 Rx isosorbide mononitrate 60 mg 60 mg PO QAM #90 tab 06/12/19 06/25/19 Rx tablet,extended release 24 hr potassium chloride 20 mEq 20 meq PO QAM #90 tab 06/12/19 06/25/19 Rx tablet,extended release pantoprazole 40 mg PO DAILY 06/14/19 06/25/19 History aspirin [Ecotrin Low Strength] 81 mg PO DAILY #30 tab 06/21/19 06/25/19 Rx cyanocobalamin (vitamin B-12) 1,000 mcg PO DAILY #30 cap 06/21/19 06/25/19 Rx fexofenadine 60 mg PO BID #60 tab 06/21/19 06/25/19 Rx folic acid 1 mg PO QAM #30 tab 06/21/19 06/25/19 Rx thiamine HCl (vitamin B1) [Vitamin 200 mg PO BID #120 tab 06/21/19 06/25/19 Rx B-1] triamcinolone acetonide 1 applic EXT TID 7 Days #30 gm 06/21/19 06/25/19 Rx famotidine 40 mg PO QAM 1 Days #1 tab 06/23/19 06/25/19 Rx Lantus Solostar U-100 Insulin 30 unit SUBCUT HS 06/25/19 06/25/19 History furosemide 20 mg PO QAM #30 tab 06/25/19 06/25/19 Rx risperidone 1 mg PO TID 06/25/19 06/25/19 History Patient History Medical History (Updated 06/30/19 @ 22:04 by Mehul Short, ) Atypical chest pain (Resolved) Benign colonic polyp (Chronic) CAD in [place] artery Cellulitis Cognitive disorder (Chronic) Controlled type 2 diabetes mellitus with neurologic complication, with long-term current use of insulin (Resolved) Conversion disorder (Resolved) Coronary artery disease Delusional disorder, somatic type Diabetes mellitus, type 2 Diabetic peripheral neuropathy (Chronic) Dyslipidemia (Resolved) Eczematous dermatitis Esophageal reflux (Chronic) Fracture of left distal radius History of colon polyps (Chronic) History of tobacco use (Resolved) Hyperlipidemia (Chronic) Hypertension Intermittent explosive disorder Kidney stone on right side (Resolved) Migraines, neuralgic Myocardial Infarction (Resolved) 2004--follows with Dr. Mejia Nephrolithiasis (Resolved) Neurological deficit present (Resolved) Neuropathy (Chronic) Osteoarthritis (Chronic) Raynauds phenomenon (Chronic) Stage III chronic kidney disease Tubular adenoma of colon (Resolved) Vitamin D deficiency (Chronic) Wound of left foot (Resolved) Surgical History History of arthroscopy of left knee (Resolved) History of cardiac cath (Resolved) x3-4, last 2014 History of carpal tunnel release of both wrists (Resolved) History of colonoscopy (Resolved) History of heart artery stent (Resolved) x1--1998 History of lithotripsy (Resolved) x2 History of lumbar discectomy (Resolved) x2 History of open reduction and internal fixation (ORIF) procedure (Resolved) left ankle--hardware in place History of right cataract extraction (Resolved) History of tonsillectomy and adenoidectomy (Resolved) 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[facility] - 05/2019 Status post uvulopalatopharyngoplasty (Resolved) Family History Father Family history of diabetes mellitus Family hx of colon cancer Other No family history of adverse response to anesthesia Social History Preferred Language: Malay Communication Ability: Effective Visual Impairment: No Limitations 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 ; Second Hand Exposure: No ; Hx Alcohol Use: No Hx Substance Use: No Resident Activity Tracking Resident Involvement: Resident Care Provided Care Provided: Adult Hospital Medicine
[2019-06-30] MEDS: cephALEXin 500 MG CAP PO SCH (22:46)
--- NOTE | 2019-07-01 06:50 | Ultrasound Report ---
US venous doppler LE LT CLINICAL HISTORY: 74 years-old Male presenting with superficial venous thrombosis of the left lower e xtremity, concern for DVT. TECHNIQUE: Real-time grayscale and color and spectral Doppler ultrasound imaging of the veins of the left lower extremity was performed. Compression and augmentation were also utilized. COMPARISON: 06/29/2019. FINDINGS: LEFT: Common femoral vein: Patent. Greater saphenous vein (superficial): Redemonstration of nonocclusive thrombus extensively in the gre ater saphenous vein extending to within 1.5 cm of the confluence at the common femoral vein. Deep femoral vein: Patent. Femoral vein: Patent. Popliteal vein: Patent. Calf veins: Patent. Other: Subcutaneous edema noted. IMPRESSION: 1. No evidence of deep venous thrombosis. 2. Extensive superficial venous thrombosis in the greater saphenous vein extending to within 1.5 cm of the saphenofemoral junction, which is increased from prior. ACT 112: Negative or not required by law. Electronically signed by: David Kwong M.D. 07/01/2019 6:48 AM
[2019-07-01] MEDS: FEXOFENADINE 60 MG TAB PO SCH ×2 (07:37→22:08)
[2019-07-01] MEDS: FOLIC ACID 1 MG TAB PO SCH (07:37)
[2019-07-01] MEDS: ASPIRIN 81 MG ECTAB PO SCH (07:37)
[2019-07-01] MEDS: cephALEXin 500 MG CAP PO SCH ×2 (07:38→22:08)
[2019-07-01] MEDS: ISOSORBIDE MONO EXTENDED REL 60 MG TABCR PO SCH (07:38)
[2019-07-01] MEDS: POTASSIUM CHLORIDE 20 MEQ TABCR PO SCH (07:38)
[2019-07-01] MEDS: TRIAMCINOLONE ACET 0.1% OINT 15 GM TUBE EXT SCH ×3 (07:38→22:33)
[2019-07-01] MEDS: FUROSEMIDE 20 MG TAB PO SCH (07:39)
[2019-07-01] MEDS: ATORVASTATIN 40 MG TAB PO SCH (07:40)
[2019-07-01] MEDS: METOPROLOL TARTRATE 25 MG TAB PO SCH ×2 (07:41→22:09)
[2019-07-01] MEDS: POLYETHYLENE (MIRALAX) 17 GM PACK PO SCH (07:42)
[2019-07-01] MEDS: FAMOTIDINE 40 MG TABLET PO SCH (07:42)
[2019-07-01] MEDS: PANTOprazole 40 MG TAB PO SCH (07:42)
[2019-07-01] MEDS: risperiDONE 1 MG TABLET PO SCH ×3 (07:43→16:47)
[2019-07-01] MEDS: DOCUSATE SODIUM/SENNA 50/8.6MG TAB PO SCH (07:43)
[2019-07-01] MEDS: TOPIRAMATE 100 MG TAB PO SCH ×2 (07:43→22:10)
[2019-07-01] MEDS: THIAMINE HCL 100 MG TAB PO SCH ×2 (07:44→22:11)
[2019-07-01] MEDS: CYANOCOBALAMIN 500 MCG TABLET (VITAMIN B-12) PO SCH (07:44)
--- NOTE | 2019-07-01 08:51 | Psychiatric Progress Note ---
Date of Service July 01, 2019 Impression / Recommendations Impression 74-year-old male with a history of coronary artery disease status post CABG 1 month ago at [facility] who presented with delusional disorder. He was hospitalized on the medical service first for CHF, then for multiple medical problems, and was seen by the psychiatry consult service on both hospitalizations. He has also been having episodes of unresponsiveness best described as conversion reactions. His family reports that he has been increasingly focused on delusions since February 2019, perseverating on them to the point that he was unable to function, and has been threatening and aggressive to the point that his no longer feels safe at home with him. He had been prescribed citalopram for unclear reasons, and it has now been discontinued as he had some manic symptoms. He has been started on risperidone which has been titrated to 1 mg twice daily and 3 mg at bedtime, and Depakote was added to target irritability, mood lability, and aggression. He is labile, with episodes of agitation and threatening staff here, to the extent that he had to be given IM medications and be placed on an involuntary commitment on 06/27/2019. He is stating unwillingness to return home to live with his , and would like to go to supportive living in [place], but does not apparently have the financial resources to do this. Family meeting was scheduled with his and daughter, and patient maintained more appropriate behavioral control. He was, however, unable to participate fully in decisions related to discharge. His sleep remains suboptimal, and we will schedule Depakote at bedtime to try to help with that. Pt has been mildly less preoccupied with the specific staff member he threatened earlier in his stay; and admits that his reaction was inappropriate - but is still unable to participate in reality-testing regarding the presence of bugs. Inpatient treatment remains medically necessary due to the severity of symptoms and safety concerns of discharge. (1) Delusional disorder, somatic type: 06/25 -continue risperidone 1 mg 3 times daily. FLP from 06/06/2019 was within normal limits. Fasting glucose 158. -Extensive medical work-up of psychosis and neurological symptoms including: Head CT, brain MRI, EEG, prolactin, PTH, cortisol, RAÚL, RPR, Lyme IgG and IgM, HIV, hepatitis C, Neurology and orthopedic consultations. -Differential includes mood disorder (has displayed manic symptoms) and frontotemporal dementia. -Patient unable to reality test. Continue to offer support and strategies for distress tolerance. -Obtain collateral information and involve family as able. -Encourage patient to attend to participate in groups and therapy. Work on healthy coping skills and discharge safety plan. 06/26 - Continue risperidone and consolidate to 1mg qam and 2mg hs (which may also help with sleep). - Patient very poorly responsive to attempts to reframe his concerns as being influenced by psychological distress, and absolutely unable to reality test. - Recommend family meeting with his and daughter once he is able to tolerate it. is reportedly currently medically ill and quite stressed, and is he has been threatening her, we will postpone this for now. - Refer for outpatient case management services and explore housing options, as he is requesting supportive living referral. 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 It is recognized that this disorder, like all delusional disorders, tend to respond poorly to treatment. In this case, it will be important to avoid persistent reality testing, and the treatment team and I have discussed the fact that while we can and should provide reality testing when the patient escalates, we should not subsequently engage in any form of what might be considered a debate or attempt to convince. 06/28 - Lead level is low (2). - Now on a 302 involuntary commitment after episode of agitation and threatening staff yesterday, related to his delusions. - Delusions continue, risperidone just increased to total of 5mg daily in divided dosing. Start trial of low-dose Depakote for irritability/anger outbursts/agitation -250 mg at bedtime. - Family meeting canceled due to agitation. Will reschedule once he is in better behavioral control. - Continue private room due to agitation and psychosis. 06/29 - Continue private room, as patient continues to have episodes of agitation, and has been making threats towards staff. He is unpredictable and does not respond well to attempts to redirect him. - Check heavy metal screen given his reports of past toxin exposure. - Increase risperidone to 1 mg 3 times daily and 3 mg at bedtime to target ongoing delusions. EKG today showed QTC 414. 06/30 - Patient remains delusional and unable to reality test. He continues to threaten harm to staff, and called his and threatened her. There are still guns in the home, although is working on getting them removed. - File for 303 involuntary commitment due to ongoing psychosis with threats to harm others. - Family meeting scheduled with his daughter and this afternoon. - SW to follow up on BCM referral. 07/01 - Continue current medication regimen presently - patient appears more slowed with mild improvement in insight demonstrated today. He continues to demonstrate delusional thinking, but is far less preoccupied with the presence of bugs during assessment - 303 hearing is scheduled for 07/02 - Pt will require coordination of outpatient services, recommendation is for a BCM referral (2) Intermittent explosive disorder: 06/29 - patient has a long history of anger problems, with rapid and unpredictable mood changes, and aggressive and threatening behavior. He does not have sufficient mood symptoms to support a bipolar diagnosis, and IED may be the most appropriate diagnosis. He was started on Depakote XR 250 mg at bedtime yesterday, and we will titrate as tolerated. (3) Conversion disorder: 06/25 - address psychosocial stressors, identify healthy coping skills, and provide reassurance and support. - Discussed with Dr. Aparicio, and patient has future unresponsive events, recommended vital signs, blood glucose, and if parameters are normal, contacting the hospitalist to evaluate the patient. - He was seen by orthopedics today, who recommended physical therapy for global weakness. PT consult ordered. 06/27 - The patient tells us that he feels that he is having transient ischemic attacks, and refers to his periods of paralysis and confusion by that name. - In addition to a conversion disorder, it is possible that the patient is experiencing prolonged adverse effects associated with general anesthesia or, as the patient suggests, brief transient ischemic attacks, although as described, these episodes are not typically consistent with TIAs. (4) Eczematous dermatitis: 06/26 - reviewed dermatology note from 06/04/[address] Mac; patient had last been seen in 03/2019, reported multiple episodes of itching, burning, irritated areas of skin, which had previously responded to IM Kenalog. He received another injection of IM Kenalog, was diagnosed with eczematous dermatitis, and appropriate bathing practices were reviewed. Daily moisturization with Cetaphil cream was recommended, and avoidance of applying anything else to the skin. -Patient has been receiving triamcinolone topically once daily here. Will add Eucerin cream as skin appears dry and irritated. No signs of infection or parasites, although he has multiple areas of excoriation on his lower and upper extremities, face, and neck. 06/27 - As previously noted, the patient tends to draw our attention to patches of irritated skin and eczematous dermatitis, and refer to the associated skin "flaking" as constituting worms or "bugs" that he believes is crawling from his skin. He also experiences tingling and paresthesias that also seem to be contributing to his belief that he is contaminated with parasites. This is not atypical in cases of delusional parasitosis. - Treating the patient's current condition is important within the context of his associated psychiatric complaints. 07/01 - Pt initiated on Keflex 500mg BID for 7 days (5) Fracture of left distal radius: 06/26 - appreciate orthopedic recommendations; cast remains in place, but patient asking to have it removed. 06/29 - cast removed, continue brace. Laboratory work-up for poor healing per Ortho: Iron, TIBC, transferrin all within normal limits. LFTs show alkaline phosphatase 127 (was 96 on admission). Total protein normal, albumin 3.1. Alpha-1 antitrypsin, ceruloplasmin, and RÚAL screen pending. Cholesterol 90. 06/30 - PT consult requested but they have not seen him yet. -Orthopedics is recommending outpatient follow-up in 4 weeks. (6) Hypertension: Continue furosemide 20 mg daily and metoprolol 75 mg twice daily. Continue home dose of Imdur. -Follow-up with keymodule assembly machine tender as an outpatient. (7) Alcohol abuse: History of alcohol abuse, no significant use in the past 3 years. (8) Vitamin B12 deficiency: Vitamin B12 from 06/15/2019 was 219. Folate 4.16. Vitamin B 1 6. Continue vitamin B12 1000 mcg daily, folic acid 1 mg daily, and thiamine 200 mg twice daily. (9) Diabetes mellitus, type 2: 06/25 -continue heart healthy, carb consistent diabetic diet, and insulin regimen per diabetic pharmacist. (10) Stage III chronic kidney disease: 06/19 -creatinine returned to baseline as of 06/24/2019 (1.18); was as high as 1.65 on 06/23/2019. (11) Code status needs review: Patient was DNR/DNI on the medical floor. He voices that he continues to want this. He expresses understanding of this, despite his psychosis. It was documented during other admissions that he was DNR/DNI. He has not been suicidal . (12) Coronary artery disease: 06/29 -reporting chest pain today, difficult to tell how much of his reported symptoms are influenced by psychosis -ordered EKG, vital sign recheck, and blood glucose. -Consulted the hospitalist service, and spoke with Dr. Cunningham. Appreciate assistance and recommendations. 06/30 - Appreciate recommendations from Drs. Fajardo and Pili: Monitor weight, and if trending up, contact them for follow-up. 07/01 - Lasix increased to 40mg daily; I&O's ordered along with daily weights - Pt initiated on Lovenox today, with recommendation to transition to Xarelto 10mg daily for 45 days due to superficial venous thrombosis with evidence of increased blockage - Appreciate recommendations and continued input from hospitalist team (13) Cognitive disorder: 06/30 - cognitively impaired, with a 15/30 on the MoCA today. Unclear if he has been diagnosed with a neurocognitive disorder in the past. 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 He also has a history of alcohol abuse which could be contributing to cognitive dysfunction. We will continue to monitor as his psychosis hopefully improves. -Prior to discharge, we will need to discuss recommendations regarding not driving until he is fully stabilized and is cleared by his physician. He is not yet ready to tolerate this discussion. 07/01 - Will need to discuss driving recommendations at time of discharge, given ongoing psychiatric symptoms and cognitive impairment as above - He did indicate that his keymodule assembly machine tender had already advised him not to drive for 10-weeks after his operation on 05/23/2019 - therefore already aware he is not to be driving for a period of time - Will need to follow-up with a more thorough conversation when it seems patient can better tolerate this Risk Factors Assessment Male: Yes : Yes Do You Have Access To A Gun?: Yes (Multiple guns in the home) Health Problems: Yes Mental Health Diagnoses: Yes Substance Use Disorders: Yes Previous Attempt: No Previous Psychiatric Hospitalization: Yes Hopelessness: No Smoker: No Protective Factors Assessment Sikhism Beliefs: No : Yes (But states he is going to file for divorce) Responsible for Young Children: No Employed: No Stable Relationships: No Supportive Family: Yes Interval History Identifying Information TIAN GRANT is a 74-year-old M who currently lives in [place] with his , has a history of delusional parasitosis and conversion disorder, and was admitted on 06/25/19 13:47 on a 201 voluntary commitment for delusional pa rasitosis. He was initially admitted to the hospitalist service 06/14/2019 - 06/21/2019, was transferred to the [facility], but then transferred back to the hospitalist service 06/23/2019 after an episode of unresponsiveness. He had a negative medical work-up and was been medically cleared and transferred back to the behavioral health unit 06/25/2019. Chief Complaint "I'm doing pretty good. The best I know how." Review of Systems Notes Constitutional: denied Cardiovascular: denied Respiratory: denied Gastrointestinal: denied Neurological: denied Psychiatric: denies symptoms other than stated above Total of at least 10 systems reviewed, pertinent positives as above and in HPI. Sleep Information Total Hours of Sleep: 3 Sleep Comments: Tian slept through the night and was incontinent of urine. Meal Information Percent Meal Consumed - Breakfast: 100 Percent Meal Consumed - Lunch: 100 Percent Meal Consumed - Dinner: 100 Subjective Subjective Patient was seen & assessed and interval progress reviewed with nursing and so cial work. Staff reports the patient had an episode last evening, in which she complained of leg numbness. Patient had admitted the symptoms resolved before he was given a as needed medication for anxiety. He had continued throughout the evening to make threats regarding a specific staff member, whom several days ago was in a situation where they had to challenge his delusional thoughts. Patient is scheduled for a 303 hearing tomorrow morning. Patient was seen today to assess progress since admission. Patient gives verbal consent to allow Cristela Cooper PA-C to observe today's encounter. Patient states that he is "doing pretty good" today. Patient states that he has spent some time reflecting on his "episode" the other day, in which he was rather agitated and threatened a specific staff member. Patient states "I know I should not have did it. But she was making me mad, calling me a liar." Patient was able to acknowledge that he was already irritated prior to this exchange, as "I just talk with my on the phone before that argument, and she had already had me irritated." Patient states that he is aware of his 303 hearing scheduled for tomorrow, and already spoke with his heating element repairer this morning. Patient states he is aware that a public service representative will represent him; however, he is not planning to contest. Patient does not verbalize any specific complaints related to the presence of bugs or worms; however, reality testing of these events was not explored today. Patient denied suicidal and homicidal ideation. He states "I do not hurt anyone." However, staff states that patient continues to verbalize threats about the specific staff member during group programming. At random, patient does share that he is prepared to not drive for a period of time, stating it was recommended by his keymodule assembly machine tender that he not drive for 10 weeks after his coronary bypass procedure. Patient denies specific needs or concerns from staff at this time. Physical Exam Psychiatric Orientation: alert and cooperative (superficially) Apperance: appropriately dressed, appropriately groomed (recently showered ) and appeared stated age Eye Contact: good eye contact Motor Behavior: steady gait and station and no abnormal motor movements Speech: normal rate/rhythm/volume of speech (far less pressured and rapid, but remains hyperverbal in conversation) Affect: euthymic affect (appearing more subdued compared to admission, but brightens appropriately ) Mood: no depressed mood ("I'm doing pretty good. The best I know how.") Thought Process: + circumstantial thought process (somewhat able to better maintain topic today) and + perseveration Thought Content: + preoccupation and + delusions Suicidal Thoughts: denies suicidal thoughts Homicidal Thoughts: denies homicidal thoughts Hallucinations: + visual hallucinations (visual disturbances ongoing, mistaking fuzz and lint for "bugs and worms"); no auditory hallucinations Cognition: attention grossly intact and language grossly intact Insight: + impaired insight Judgement: + impaired judgement Vital Signs (Past 24 Hours) Last Vital Signs Temp 36.7 C 07/01/19 06:36 Pulse 102 H 07/01/19 06:37 Resp 18 07/01/19 06:36 BP 127/72 07/01/19 06:37 Pulse Ox 95 06/29/19 12:06 Results & Data Laboratory Results Laboratory Results - last 24 hr 06/30/19 06/30/19 07/01/19 17:23 21:31 07:59 POC Glucose 124 H 168 H 156 H Current Inpatient Medications Current Inpatient Medications: Current Inpatient Medications Acetaminophen (Tylenol) 650 mg PO Q4H PRN PRN Reason: Headache or Minor Fever Stop: 07/25/19 14:02 Al Hydrox/Mg Hydrox/Simethicone (Maalox) 30 ml PO Q4H PRN PRN Reason: GI Upset Stop: 07/25/19 14:02 Aspirin (Ecotrin Ectab) 81 mg PO DAILY NIKOLAI Stop: 07/26/19 08:59 Last Admin: 07/01/19 07:37 Dose: 81 mg Documented by: Atorvastatin Calcium (Lipitor) 80 mg PO QAM NIKOLAI Stop: 07/26/19 08:59 Last Admin: 07/01/19 07:40 Dose: 80 mg Documented by: Bismuth Subsalicylate (Kaopectate) 15 ml PO PRN PRN PRN Reason: Loose Stool Stop: 07/25/19 14:02 Cephalexin HCl (Keflex) 500 mg PO BID [facility] Stop: 07/10/19 22:14 Last Admin: 07/01/19 07:38 Dose: 500 mg Documented by: Cyanocobalamin (Vitamin B-12) 1,000 mcg PO DAILY NIKOLAI Stop: 07/26/19 08:59 Last Admin: 07/01/19 07:44 Dose: 1,000 mcg Documented by: Dextrose (Dextrose 50%) 25 - 50 ml IV UD PRN; Protocol PRN Reason: Hypoglycemia Protocol Stop: 07/25/19 14:44 Divalproex Sodium (Depakote Extended Release) 250 mg PO HS [facility] Stop: 07/28/19 21:59 Last Admin: 06/30/19 22:07 Dose: 250 mg Documented by: Famotidine (Pepcid) 40 mg PO QAM NIKOLAI Stop: 07/26/19 08:59 Last Admin: 07/01/19 07:42 Dose: 40 mg Documented by: Fexofenadine HCl (Nikky) 60 mg PO BID NIKOLAI Stop: 07/25/19 20:59 Last Admin: 07/01/19 07:37 Dose: 60 mg Documented by: Folic Acid (Folvite) 1 mg PO QAM NIKOLAI Stop: 07/26/19 08:59 Last Admin: 07/01/19 07:37 Dose: 1 mg Documented by: Furosemide (Lasix) 20 mg PO QAM NIKOLAI Stop: 07/26/19 08:59 Last Admin: 07/01/19 07:39 Dose: 20 mg Documented by: Glucagon (Glucagen) 1 mg IM UD PRN; Protocol PRN Reason: Hypoglycemia Protocol Stop: 07/25/19 14:44 Glucose (Glucose 40%) 15 - 30 gm PO UD PRN; Protocol PRN Reason: Hypoglycemia Protocol Stop: 07/25/19 14:44 Glucose (Dex4 Glucose) 4 - 8 tabs PO UD PRN; Protocol PRN Reason: Hypoglycemia Protocol Stop: 07/25/19 14:44 Haloperidol (Haldol) 2.5 mg PO Q4H PRN PRN Reason: Agitation Stop: 07/27/19 14:46 Haloperidol Lactate (Haldol) 5 mg IM Q6H PRN PRN Reason: Agitation Stop: 07/27/19 14:44 Hydroxyzine HCl (Vistaril) 50 mg PO HSZ PRN PRN Reason: Insomnia Stop: 07/25/19 14:02 Hydroxyzine HCl (Vistaril) 25 mg PO Q4H PRN PRN Reason: Anxiety Stop: 07/25/19 14:02 Last Admin: 07/01/19 05:24 Dose: 25 mg Documented by: Insulin Aspart (Novolog Flexpen) 0 units SC [facility] Stop: 07/25/19 17:14 Last Admin: 06/30/19 22:29 Dose: 5 units Documented by: Insulin Glargine (Lantus Solostar Pen) 30 units SQ HS [facility] Stop: 07/28/19 21:59 Last Admin: 06/30/19 22:09 Dose: 30 units Documented by: Isosorbide Mononitrate (Imdur Extended Rel) 60 mg PO [facility] Stop: 07/26/19 08:59 Last Admin: 07/01/19 07:38 Dose: 60 mg Documented by: Lorazepam (Ativan) 1 mg IM Q6H PRN PRN Reason: Agitation Stop: 07/27/19 14:59 Lorazepam (Ativan) 1 mg PO Q6H PRN PRN Reason: Agitation Stop: 07/27/19 14:47 Magnesium Hydroxide (Milk Of Magnesia) 30 ml PO DAILY PRN PRN Reason: Constipation Stop: 07/25/19 14:02 Metoprolol Tartrate (Lopressor) 75 mg PO BID [facility] Stop: 07/25/19 20:59 Last Admin: 07/01/19 07:41 Dose: 75 mg Documented by: Miscellaneous (Carbohydrates For Hypoglycemia) 15 - 30 gm PO UD PRN PRN Reason: Hypoglycemia Treatment Stop: 07/25/19 14:44 Miscellaneous Information (Consult Glycemic Management Pharmacy) 1 ea N/A UD PRN PRN Reason: Consult Stop: 07/26/19 09:10 Multi-Ingredient Cream (Hydrocerin) 1 appln EXT Q8H PRN PRN Reason: dry skin Stop: 07/26/19 10:33 Nitroglycerin (Nitrostat) 0.4 mg SL Q5M PRN PRN Reason: Chest Pain Stop: 07/25/19 14:15 Pantoprazole Sodium (Protonix) 40 mg PO DAILY [facility] Stop: 07/26/19 08:59 Last Admin: 07/01/19 07:42 Dose: 40 mg Documented by: Polyethylene Glycol (Miralax Powder Packet) 17 gm PO QAM [facility] Stop: 07/26/19 08:59 Last Admin: 07/01/19 07:42 Dose: 17 gm Documented by: Potassium Chloride (Klor-Con M20) 20 meq PO QAM [facility] Stop: 07/26/19 08:59 Last Admin: 07/01/19 07:38 Dose: 20 meq Documented by: Risperidone (Risperdal) 3 mg PO HS [facility] Stop: 07/27/19 21:59 Last Admin: 06/30/19 22:08 Dose: 3 mg Documented by: Risperidone (Risperdal) 1 mg PO TID@0900,1300,1600 [facility] Stop: 07/30/19 12:59 Last Admin: 07/01/19 07:43 Dose: 1 mg Documented by: Senna/Docusate Sodium (Senokot S) 1 tab PO QAM [facility] Stop: 07/26/19 08:59 Last Admin: 07/01/19 07:43 Dose: 1 tab Documented by: Sodium Chloride (Chaves Nasal) 1 - 2 sprays NA PRN PRN PRN Reason: Nasal Dryness/Congestion Stop: 07/25/19 14:02 Thiamine HCl (Vitamin B-1) 200 mg PO BID [facility] Stop: 07/25/19 20:59 Last Admin: 01/14/20 07:44 Dose: 200 mg Documented by: Topiramate (Topamax) 100 mg PO BID [facility] Stop: 07/25/19 20:59 Last Admin: 07/01/19 07:43 Dose: 100 mg Documented by: Tramadol HCl (Ultram) 50 mg PO Q6H PRN PRN Reason: pain Stop: 07/25/19 14:15 Last Admin: 06/29/19 23:45 Dose: 50 mg Documented by: Triamcinolone Acetonide (Kenalog 0.1%) 1 appln EXT TID NIKOLAI Stop: 07/25/19 20:59 Last Admin: 07/01/19 07:38 Dose: Not Given Documented by: Mental Health & Subst Abuse Tx Therapist Name of Therapist: [facility]anaies Closing Specialist Name of Closing Specialist: dayanaies Post Discharge Appointments Primary Care Physician Name Of Family Doctor: Fox Moran Contact Information Discharge Discharge Address: [address] [place] [address] (1) Diabetes mellitus, type 2 Diabetes mellitus complication detail: with polyneuropathy Diabetes mellitus complication status: with neurologic complications Diabetes mellitus care home insulin use: with superintendent container terminal use Qualified Code(s): E11.42 - Type 2 diabetes mellitus with diabetic polyneuropathy; Z79.4 - superintendent container terminal (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
[2019-07-01] MEDS: INSULIN ASPART 100 UNITS/ML 3 ML PEN SC SCH ×4 (09:57→22:15)
[2019-07-01] MEDS ORDERED: ENOXAPARIN 150 MG/ML SYR SC SCH (12:30)
--- NOTE | 2019-07-01 14:29 | Pharmacy Report ---
Pharmacy Glycemic Short Note 2 - Date of Service July 01, 2019 - Glycemic Short BSG Results (Last 24 hours): 06/30/19 06/30/19 07/01/19 17:23 21:31 07:59 POC Glucose 124 H 168 H 156 H 07/01/19 13:00 POC Glucose 185 H OUTPATIENT ANTIDIABETIC REGIMEN: * Lantus 40-60 units HS * Humalog 10-15 units prior to meals ASSESSMENT: 07/01: * Patient has started on Keflex for cellulitis * Majority of BSGs remain > 140 mg/dL. Some of this could be related to snacking but since most are above goal and patient requiring correctional throughout the day, will increase basal dose by ~15% 06/30: Pt's BSGs elevated at times: [phone]/dL. Possible etiology includes snacking between meals. FBS today is reasonable. No acute change in insulin requirements are currently anticipated. We will continue with insulin as ordered: PLAN FOR INPATIENT GLYCEMIC CONTROL: * Basal insulin: increase * Lantus 35 units qHS * Bolus insulin: no change * NovoLog per scale ACHS or Q6hrs while NPO * Goal Range: Low 110 mg/dL - High 140 mg/dL * Correction Factor: 20 mg/dL/unit * Nutritional / Prandial insulin per carb ratio of 1 unit per 7 grams CHO consumed PLAN FOR DISCHARGE: * HbA1c = 6.5% on 05/15/19 * Goal A1c less than 7%. * Home dose of Lantus was reportedly causing hypoglycemia for patient. Recommend decreasing Lantus dose to 30 units daily at bedtime and use Humalog before meals on a sliding scale based on BSGs.
--- NOTE | 2019-07-01 15:06 | Family Medicine Consultation ---
Date of Consultation July 01, 2019 Assessment & Plan (1) Lower extremity edema: 74 yo medically complicated male admitted to psychiatric unit with worsening of L lower extremity edema and erythema, found to have superficial venous thromboembolism. Superficial venous thrombosis - Venous duplex 07/01 with following impression: extensive superficial venous thrombosis in the greater saphenous vein extending to within 1.5 cm of the saphenofemoral junction, which is increased from prior. - given proximity to saphenofemoral junction (<5 cm), patient requires anticoagulation - we will administer therapeutic dose of Lovenox 07/01, with plans to transition to Xarelto 10mg, daily for 45 days. Pharmacy consulted and noted no major contraindications/ interactions with patient's current medication regimen. Case management looking into insurance coverage of Xarelto - albumin mildly low at 3.1 Lower extremity edema -edema may be multifactorial (ie superficial venous thrombosis, venous insufficiency, fluid overload from CHF) - Increase lasix to 40mgs daily. creatinine 1.2, BUN 26. - stockings. advised to keep legs propped up when sitting. Chronic CHF - NT-Pro BNP negative on 06/29; CXR from 06/29 without signs of pulmonary edema. While patient is not in florid fluid overload, does have +3 pitting edema in b/l lower extremities - daily weights and I/Os ordered - lasix as above - b/l compression stockings ordered; fluid restrict to 2L; salt restriction diet Cellulitis of LE - erythema and warmth on exam concerning for cellulitis - Keflex 500mg, PO, BID for 7 days - address LE edema - continue to monitor Bilateral Flank pain - patient does have history of kidney stones - no urinary sxs at present - UA on 06/29 without blood; will repeat today 07/01, if positive for blood will consider a/p CT to assess for stones CAD s/p recent CABG - Continue aspirin, atorvastatin, metoprolol DM - continue current regimen Code status: DNR/DNI DVT ppx: On therapeutic Lovenox FEN/GI: Heart Healthy, DM2 diet with sodium and fluid restriction Dispo: Psych unit (2) Cellulitis: Supervising Physician Co-Signing Physician Notes Resident Physician Supervision Note: I independently interviewed and examined the patient and verified the schultz history and physical, reviewed labs and image studies, discussed the case with the resident Dr. Real and agree with the findings and care plan. History of Present Illness Reason for Consultation: Left LE edema Attending Physician: Caitlin Robles MD History of Present Illness In psychiatric unit; night resident was paged for evaluation of L LE edema and redness. Mr. Blanchard reports that his edema is worse than baseline. He did have a recent CABG procedure at [facility], which required venous stripping of L LE. He does mention b/l flank pain unable to gather much history due to him getting distracted by his psychosis Allergies Allergy/AdvReac Type Severity Reaction Status Date / Time morphine AdvReac Severe "STOPS MY Verified 06/14/19 08:08 HEART" hydromorphone [From Dilaudid] AdvReac Intermediate unresponsiv Verified 06/14/19 08:08 eness trazodone AdvReac Intermediate GI UPSET Verified 06/14/19 08:08 diazepam AdvReac Mild HALLUCINATE Verified 06/14/19 08:08 S propoxyphene AdvReac Mild DRUG Verified 06/14/19 08:08 INTOLERANCE Home Medications Home Medications Medication Instructions Recorded Confirmed Type pen needle, diabetic 31 gauge x #30 ea 12/03/18 06/14/19 Rx 5/16" nitroglycerin 0.4 mg sublingual 0.4 mg SL Q5M PRN #1 tab 02/05/19 06/25/19 History tablet metoprolol tartrate 75 mg tablet 75 mg PO BID #60 tab 05/30/19 06/25/19 Rx acetaminophen [Tylenol Extra 1,000 mg PO Q8H PRN 06/05/19 06/25/19 History Strength] polyethylene glycol 3350 [Miralax] 17 gm PO QAM 06/05/19 06/25/19 History sennosides-docusate sodium [Senna 1 tab PO QAM 06/05/19 06/25/19 History with Docusate Sodium] topiramate [Topamax] 100 mg PO BID 06/05/19 06/25/19 History tramadol [Ultram] 50 mg PO Q6H PRN 06/05/19 06/25/19 History atorvastatin 80 mg tablet 80 mg PO QAM #90 tab 06/12/19 06/25/19 Rx isosorbide mononitrate 60 mg 60 mg PO QAM #90 tab 06/12/19 06/25/19 Rx tablet,extended release 24 hr potassium chloride 20 mEq 20 meq PO QAM #90 tab 06/12/19 06/25/19 Rx tablet,extended release pantoprazole 40 mg PO DAILY 06/14/19 06/25/19 History aspirin [Ecotrin Low Strength] 81 mg PO DAILY #30 tab 06/21/19 06/25/19 Rx cyanocobalamin (vitamin B-12) 1,000 mcg PO DAILY #30 cap 06/21/19 06/25/19 Rx fexofenadine 60 mg PO BID #60 tab 06/21/19 06/25/19 Rx folic acid 1 mg PO QAM #30 tab 06/21/19 06/25/19 Rx thiamine HCl (vitamin B1) [Vitamin 200 mg PO BID #120 tab 06/21/19 06/25/19 Rx B-1] triamcinolone acetonide 1 applic EXT TID 7 Days #30 gm 06/21/19 06/25/19 Rx famotidine 40 mg PO QAM 1 Days #1 tab 06/23/19 06/25/19 Rx Lantus Solostar U-100 Insulin 30 unit SUBCUT HS 06/25/19 06/25/19 History furosemide 20 mg PO QAM #30 tab 06/25/19 06/25/19 Rx risperidone 1 mg PO TID 06/25/19 06/25/19 History Patient History Medical History (Updated 07/01/19 @ 15:13 by Krystle Real MD) Atypical chest pain (Resolved) Benign colonic polyp (Chronic) CAD in [place] artery Cellulitis Cognitive disorder (Chronic) Controlled type 2 diabetes mellitus with neurologic complication, with long-term current use of insulin (Resolved) Conversion disorder (Resolved) Coronary artery disease Delusional disorder, somatic type Diabetes mellitus, type 2 Diabetic peripheral neuropathy (Chronic) Dyslipidemia (Resolved) Eczematous dermatitis Esophageal reflux (Chronic) Fracture of left distal radius History of colon polyps (Chronic) History of tobacco use (Resolved) Hyperlipidemia (Chronic) Hypertension Intermittent explosive disorder Kidney stone on right side (Resolved) Migraines, neuralgic Myocardial Infarction (Resolved) 2004--follows with Dr. Mejia Nephrolithiasis (Resolved) Neurological deficit present (Resolved) Neuropathy (Chronic) Osteoarthritis (Chronic) Raynauds phenomenon (Chronic) Stage III chronic kidney disease Tubular adenoma of colon (Resolved) Vitamin D deficiency (Chronic) Wound of left foot (Resolved) Surgical History History of arthroscopy of left knee (Resolved) History of cardiac cath (Resolved) x3-4, last 2014 History of carpal tunnel release of both wrists (Resolved) History of colonoscopy (Resolved) History of heart artery stent (Resolved) x1--1999 History of lithotripsy (Resolved) x2 History of lumbar discectomy (Resolved) x2 History of open reduction and internal fixation (ORIF) procedure (Resolved) left ankle--hardware in place History of right cataract extraction (Resolved) History of tonsillectomy and adenoidectomy (Resolved) 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[facility] - 05/2019 Status post uvulopalatopharyngoplasty (Resolved) Family History Father Family history of diabetes mellitus Family hx of colon cancer Other No family history of adverse response to anesthesia Social History Preferred Language: Romanian Communication Ability: Effective Visual Impairment: No Limitations Poultry Killer Required: No Beliefs That Will Affect Care: None marital status: marital status details: 3 children Current Living Situation: Spouse current occupational status: retired other: worked -[employer] ([employer]); 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 ; Second Hand Exposure: No ; Hx Alcohol Use: No Hx Substance Use: No Review of Systems Constitutional: no fever, no chills, no sweats and no malaise Cardiovascular: + edema (worse from baseline); no chest pain, no dyspnea and no calf pain Genitourinary: + flank pain (b/l); no dysuria, no difficulty urinating and no urinary frequency Physical Exam Constitutional: WD/WN, vitals as above Eyes: PERRL, conjunctivae normal, anicteric sclerae ENMT: external ear and nose normal, oropharynx normal Neck: normal visual inspection and trachea midline Respiratory: normal respiratory effort, lungs clear to auscultation Cardiovascular: RRR, no murmur, no edema Heart Sounds: normal S1 and normal S2 Extremities: + pedal edema (+3 bilaterally ) Gastrointestinal (Abdomen): normal bowel sounds, soft, nontender, no hepatosplenomegaly Skin: Erythema (although faint) present on L LE; mildly warm to the touch Psychiatric: A+Ox3, euthymic affect Thought Content: + delusions (believes there is begs crawling on his bed and in his GI tract) Results & Data Vital Signs (Past 12 Hours) Vital Signs Temp Pulse Resp BP 07/01/19 06:37 102 H 127/72 07/01/19 06:36 36.7 C 98 H 18 113/74 Resident Activity Tracking Resident Involvement: Resident Care Provided Care Provided: Adult Hospital Medicine
[2019-07-01] MEDS ORDERED: FUROSEMIDE 20 MG TAB PO STA (15:31)
[2019-07-01 16:24] LABS: Appearance Urine Clear (Clear); Bilirubin Urine Negative (Negative); Blood Urine Negative (Negative); Color Urine Yellow; Glucose Urine UA Negative (Negative); Ketones Urine Negative (Negative); Leukocyte Esterase Urine Negative (Negative); Nitrite Urine Negative (Negative); Protein Urine Negative (Negative); Specific Gravity Urine 1.012 (1.000-1.030); Urobilinogen Urine Negative (Negative)
[2019-07-01 17:14] LABS: Alpha 1 Antitrypsin 187 mg/dL (83-199); Anti Nuclear Antibody Screen NEGATIVE (NEGATIVE); Ceruloplasmin 32 mg/dL (18-36)
[2019-07-01] MEDS: DIVALPROEX EXTENDED RELEASE 250 MG TABCR PO SCH (22:11)
[2019-07-01] MEDS: risperiDONE 3 MG TABLET PO SCH (22:11)
[2019-07-01] MEDS: INSULIN GLARGINE SOLOSTAR 100 UNITS/ML 3 ML PEN SQ SCH (22:27)
[2019-07-02] MEDS: FEXOFENADINE 60 MG TAB PO SCH ×2 (08:01→21:20)
[2019-07-02] MEDS: ASPIRIN 81 MG ECTAB PO SCH (08:01)
[2019-07-02] MEDS: ISOSORBIDE MONO EXTENDED REL 60 MG TABCR PO SCH (08:02)
[2019-07-02] MEDS: FOLIC ACID 1 MG TAB PO SCH (08:02)
[2019-07-02] MEDS: TRIAMCINOLONE ACET 0.1% OINT 15 GM TUBE EXT SCH ×3 (08:03→21:21)
[2019-07-02] MEDS: cephALEXin 500 MG CAP PO SCH ×2 (08:03→21:20)
[2019-07-02] MEDS: FUROSEMIDE 40 MG TAB PO SCH (08:04)
[2019-07-02] MEDS: POTASSIUM CHLORIDE 20 MEQ TABCR PO SCH (08:04)
[2019-07-02] MEDS: ATORVASTATIN 40 MG TAB PO SCH (08:06)
[2019-07-02] MEDS: METOPROLOL TARTRATE 25 MG TAB PO SCH ×2 (08:06→21:20)
[2019-07-02] MEDS: POLYETHYLENE (MIRALAX) 17 GM PACK PO SCH (08:07)
[2019-07-02] MEDS: PANTOprazole 40 MG TAB PO SCH (08:07)
[2019-07-02] MEDS: CYANOCOBALAMIN 500 MCG TABLET (VITAMIN B-12) PO SCH (08:08)
[2019-07-02] MEDS: DOCUSATE SODIUM/SENNA 50/8.6MG TAB PO SCH (08:08)
[2019-07-02] MEDS: TOPIRAMATE 100 MG TAB PO SCH ×2 (08:08→21:21)
[2019-07-02] MEDS: risperiDONE 1 MG TABLET PO SCH ×3 (08:08→16:44)
[2019-07-02] MEDS: FAMOTIDINE 40 MG TABLET PO SCH (08:08)
[2019-07-02] MEDS: THIAMINE HCL 100 MG TAB PO SCH ×2 (08:08→21:21)
[2019-07-02 08:19] LABS: Hematocrit (blood only) 36.9 % (42-52); Hemoglobin 12.2 g/dL (14.0-18.0)
--- NOTE | 2019-07-02 08:31 | Psychiatric Progress Note ---
Date of Service July 02, 2019 Impression / Recommendations Impression 74-year-old male with a history of coronary artery disease status post CABG in 05/2019 at [facility] who presented with delusional disorder. He was hospitalized on the medical service first for CHF, then for multiple medical problems, and was seen by the psychiatry consult service on both hospitalizations. He has also been having episodes of unresponsiveness best described as conversion reactions. His family reports that he has been increasingly focused on delusions since February 2019, perseverating on them to the point that he was unable to function, and has been threatening and ag gressive to the point that his no longer feels safe at home with him. He had been prescribed citalopram for unclear reasons, and it has now been discontinued as he had some manic symptoms. He has been started on risperidone which has been titrated to 6 mg daily in divided doses, and Depakote for irritability, mood lability, and aggression. He has made threats to both staff and his while here, and at one point became agitated to the extent that he had to be given IM medications and be placed on an involuntary commitment on 06/27/2019. He is on an 303 involuntary commitment as of 07/02/2019. He initially stated unwillingness to return home to live with his , and wanted to go to supportive living in [place], but we have confirmed this is not an option, and he is now considering returning home. A family meeting was held with his by phone and daughter in person, and he will need another meeting with his . She reported that he called last week and threatened to kill her, and she has been fearful of him due to episodes of aggression and threats in the past. He is improving as he has been less preoccupied with delusions and agitation has decreased. Inpatient treatment remains medically necessary due to the severity of symptoms and risk of harm to both himself and others if discharged prematurely. Although he still lacks insight into his condition, he is taking medication and stating willingness for outpatient treatment and mental health services. (1) Delusional disorder, somatic type: 06/25 -continue risperidone 1 mg 3 times daily. FLP from 06/06/2019 was within normal limits. Fasting glucose 158. -Extensive medical work-up of psychosis and neurological symptoms including: Head CT, brain MRI, EEG, prolactin, PTH, cortisol, RAÚL, RPR, Lyme IgG and IgM, HIV, hepatitis C, Neurology and orthopedic consultations. -Differential includes mood disorder (has displayed manic symptoms) and frontotemporal dementia. -Patient unable to reality test. Continue to offer support and strategies for distress tolerance. -Obtain collateral information and involve family as able. -Encourage patient to attend to participate in groups and therapy. Work on healthy coping skills and discharge safety plan. 06/26 - Continue risperidone and consolidate to 1mg qam and 2mg hs (which may also help with sleep). - Patient very poorly responsive to attempts to reframe his concerns as being influenced by psychological distress, and absolutely unable to reality test. - Recommend family meeting with his and daughter once he is able to tolerate it. is reportedly currently medically ill and quite stressed, and is he has been threatening her, we will postpone this for now. - Refer for outpatient case management services and explore housing options, as he is requesting supportive living referral. 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 It is recognized that this disorder, like all delusional disorders, tend to respond poorly to treatment. In this case, it will be important to avoid persistent reality testing, and the treatment team and I have discussed the fact that while we can and should provide reality testing when the patient escalates, we should not subsequently engage in any form of what might be considered a debate or attempt to convince. 06/28 - Lead level is low (2). - Now on a 302 involuntary commitment after episode of agitation and threatening staff yesterday, related to his delusions. - Delusions continue, risperidone just increased to total of 5mg daily in divided dosing. Start trial of low-dose Depakote for irritability/anger outbursts/agitation -250 mg at bedtime. - Family meeting canceled due to agitation. Will reschedule once he is in better behavioral control. - Continue private room due to agitation and psychosis. 06/29 - Continue private room, as patient continues to have episodes of agitation, and has been making threats towards staff. He is unpredictable and does not respond well to attempts to redirect him. - Check heavy metal screen given his reports of past toxin exposure. - Increase risperidone to 1 mg 3 times daily and 3 mg at bedtime to target ongoing delusions. EKG today showed QTC 414. 06/30 - Patient remains delusional and unable to reality test. He continues to threaten harm to staff, and called his and threatened her. There are still guns in the home, although is working on getting them removed. - File for 303 involuntary commitment due to ongoing psychosis with threats to harm others. - Family meeting scheduled with his daughter and this afternoon. - SW to follow up on BCM referral. 07/01 - Continue current medication regimen presently - patient appears more slowed with mild improvement in insight demonstrated today. He continues to demonstrate delusional thinking, but is far less preoccupied with the presence of bugs during assessment - 303 hearing is scheduled for 07/02 - Pt will require coordination of outpatient services, recommendation is for a BCM referral 07/02 -303 commitment granted. -Refer for BCM and outpatient psychiatric care. -Willing to work on relationship with and attempt to reconcile so that he can return to home at discharge. They will need a family meeting with the social psychologist. (2) Intermittent explosive disorder: 06/29 - patient has a long history of anger problems, with rapid and unpredictable mood changes, and aggressive and threatening behavior. He does not have sufficient mood symptoms to support a bipolar diagnosis, and IED may be the most appropriate diagnosis. He was started on Depakote XR 250 mg at bedtime yesterday, and we will titrate as tolerated. 07/02 -order Depakote trough level for tomorrow a.m. Patient has been in better behavioral control. Continue to assist him in identifying coping strategies (3) Conversion disorder: 06/25 - address psychosocial stressors, identify healthy coping skills, and provide reassurance and support. - Discussed with Dr. Aparicio, and patient has future unresponsive events, recommended vital signs, blood glucose, and if parameters are normal, contacting the hospitalist to evaluate the patient. - He was seen by orthopedics today, who recommended physical therapy for global weakness. PT consult ordered. 06/27 - The patient tells us that he feels that he is having transient ischemic attacks, and refers to his periods of paralysis and confusion by that name. - In addition to a conversion disorder, it is possible that the patient is experiencing prolonged adverse effects associated with general anesthesia or, as the patient suggests, brief transient ischemic attacks, although as described, these episodes are not typically consistent with TIAs. (4) Eczematous dermatitis: 06/26 - reviewed dermatology note from 06/04/[address] Mac; patient had last been seen in 03/2019, reported multiple episodes of itching, burning, irritated areas of skin, which had previously responded to IM Kenalog. He received another injection of IM Kenalog, was diagnosed with eczematous dermatitis, and appropriate bathing practices were reviewed. Daily moisturization with Cetaphil cream was recommended, and avoidance of applying anything else to the skin. -Patient has been receiving triamcinolone topically once daily here. Will add Eucerin cream as skin appears dry and irritated. No signs of infection or parasites, although he has multiple areas of excoriation on his lower and upper extremities, face, and neck. 06/27 - As previously noted, the patient tends to draw our attention to patches of irritated skin and eczematous dermatitis, and refer to the associated skin "flaking" as constituting worms or "bugs" that he believes is crawling from his skin. He also experiences tingling and paresthesias that also seem to be contributing to his belief that he is contaminated with parasites. This is not atypical in cases of delusional parasitosis. - Treating the patient's current condition is important within the context of his associated psychiatric complaints. 07/01 - Pt initiated on Keflex 500mg BID for 7 days (5) Fracture of left distal radius: 06/26 - appreciate orthopedic recommendations; cast remains in place, but patient asking to have it removed. 06/29 - cast removed, continue brace. Laboratory work-up for poor healing per Ortho: Iron, TIBC, transferrin all within normal limits. LFTs show alkaline phosphatase 127 (was 96 on admission). Total protein normal, albumin 3.1. Alpha-1 antitrypsin, ceruloplasmin, and RAÚL screen pending. Cholesterol 90. 06/30 - PT consult requested but they have not seen him yet. -Orthopedics is recommending outpatient follow-up in 4 weeks. (6) Hypertension: Continue furosemide 20 mg daily and metoprolol 75 mg twice daily. Continue home dose of Imdur. -Follow-up with carbon printer as an outpatient. Her hospitalist discharge summary, he was instructed to follow-up at the [facility] within a week of discharge. (7) Alcohol abuse: History of alcohol abuse, no significant use in the past 3 years. (8) Vitamin B12 deficiency: Vitamin B12 from 06/15/2019 was 219. Folate 4.16. Vitamin B 1 6. Continue vitamin B12 1000 mcg daily, folic acid 1 mg daily, and thiamine 200 mg twice daily. (9) Diabetes mellitus, type 2: 06/25 -continue heart healthy, carb consistent diabetic diet, and insulin regimen per diabetic pharmacist. (10) Stage III chronic kidney disease: 06/19 -creatinine returned to baseline as of 06/24/2019 (1.18); was as high as 1.65 on 06/23/2019. (11) Code status needs review: Patient was DNR/DNI on the medical floor. He voices that he continues to want this. He expresses understanding of this, despite his psychosis. It was documented during other admissions that he was DNR/DNI. He has not been suicidal. (12) Coronary artery disease: 06/29 -reporting chest pain today, difficult to tell how much of his reported symptoms are influenced by psychosis -ordered EKG, vital sign recheck, and blood glucose. -Consulted the hospitalist service, and spoke with Dr. Cunningham. Appreciate assistance and recommendations. 06/30 - Appreciate recommendations from Drs. Fajardo and Pili: Monitor weight, and if trending up, contact them for follow-up. 07/01 - Lasix increased to 40mg daily; I&O's ordered along with daily weights - Pt initiated on Lovenox today, with recommendation to transition to Xarelto 10mg daily for 45 days due to superficial venous thrombosis with evidence of increased blockage - Appreciate recommendations and continued input from hospitalist team 07/02 - Care coordinated with Drs. Frey, Addie, and Bryant. Appreciate their assistance in managing his multiple medical conditions. Xarelto co-pays $45 a month, which patient indicated is affordable. (13) Cognitive disorder: 06/30 - cognitively impaired, with a 15/30 on the MoCA today. Unclear if he has been diagnosed with a neurocognitive disorder in the past. 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 He also has a history of alcohol abuse which could be contributing to cognitive dysfunction. We will continue to monitor as his psychosis hopefully improves. -Prior to discharge, we will need to discuss recommendations regarding not driving until he is fully stabilized and is cleared by his physician. He is not yet ready to tolerate this discussion. 07/01 - Will need to discuss driving recommendations at time of discharge, given ongoing psychiatric symptoms and cognitive impairment as above - He did indicate that his carbon printer had already advised him not to drive for 10-weeks after his operation on 05/23/2019 - therefore already aware he is not to be driving for a period of time - Will need to follow-up with a more thorough conversation when it seems patient can better tolerate this Risk Factors Assessment Male: Yes : Yes Do You Have Access To A Gun?: Yes (Multiple guns in the home) Health Problems: Yes Mental Health Diagnoses: Yes Substance Use Disorders: Yes Previous Attempt: No Previous Psychiatric Hospitalization: Yes Hopelessness: No Smoker: No Protective Factors Assessment Jain Beliefs: No : Yes (But states he is going to file for divorce) Responsible for Young Children: No Employed: No Stable Relationships: No Supportive Family: Yes Interval History Identifying Information EMANUEL GRANT is a 74-year-old M who currently lives in [place] with his , has a history of delusional parasitosis and conversion disorder, and was admitted on 06/25/19 13:47 on a 201 voluntary commitment for delusional parasitosis. He was initially admitted to the hospitalist service 06/14/2019 - 06/21/2019, was transferred to the U, but then transferred back to the hospitalist service 06/23/2019 after an episode of unresponsiveness. He had a negative medical work-up and was been medically cleared and transferred back to the behavioral health unit 06/25/2019. Chief Complaint " Well, not too bad". Review of Systems Notes 10 systems reviewed; negative except as stated above and continue complaints of worms "boring holes straight through me." Sleep Information Total Hours of Sleep: 4.5 Meal Information Percent Meal Consumed - Breakfast: 100 Percent Meal Consumed - Lunch: 100 Percent Meal Consumed - Dinner: 100 Subjective Subjective Patient was seen & assessed and interval progress reviewed with treatment team. Staff report he has been in better behavioral control, although still making comments about doing something to retaliate against a particular nurse for "calling me a liar." Staff have discussed this with him at length, and he has indicated understanding of the concerns about him threatening other people, and denies intent to harm anyone else. print finishing worker spoke with [facility], where the patient stated he was going to live, and staff there reported he had called there numerous times, but that he is not appropriate for that facility. He could only be considered for [facility], due to his mental health condition, but there is currently no openings. She acknowledged that he is a distant relation of her , and that his has been the main provider and monomer recovery operator in their relationship. Staff at [facility] reported that they were in the process of arranging in-home services for him, including home health nursing, PT, OT, and social work, but he was not out of the hospital long enough to start services. He told staff that he suspects his has dementia, and that he might go live in [place], or might move back home. He continues to express belief that he is infested with bugs, but has not been as focused on this. He is attending and participating in groups. He showered independently, is taking medication as prescribed, and is eating well. On my assessment today, he reports that his mood is "great," and thinks that treatment here is helping. He remains convinced he is infested with bugs, showing me his red and swollen left lower extremity (being treated for superficial thrombosis by the hospitalist service), and stating "the bugs did that." He also wipes his fingers across the skin on his face and then holds out his hands to show me bugs he believes are coming out of his skin, although nothing is visible on his fingers. He does think the skin lotion has been helpful. He denies picking any areas of skin open. He denies thoughts of harming himself or others, and states he is willing to try to work things out with his "if she wants to work things out, but she's got to straighten herself out, she acts like a 4 year old." He attended his 303 hearing and did not contest it, testifying that he likes it here except for "the michael nurse called me a liar, and I ain't a damn liar!" Physical Exam Psychiatric Orientation: alert, oriented x 3 and cooperative Apperance: appropriately dressed, appropriately groomed and appeared stated age Eye Contact: + fair eye contact Motor Behavior: steady gait and station and no abnormal motor movements Speech: normal rate/rhythm/volume of speech Affect: euthymic affect and mood congruent with affect "Great!" Thought Process: goal directed thought process Thought Content: + delusions (Of infestation with bugs) Suicidal Thoughts: denies suicidal thoughts Homicidal Thoughts: denies homicidal thoughts Still angry at and hospital staff, but less focused on this and no overt threats. Hallucinations: + visual hallucinations (Of bugs) Cognition: language grossly intact; + recent memory not intact Insight: + severely impaired insight Judgement: + impaired judgement Vital Signs (Past 24 Hours) Last Vital Signs Temp 36.5 C 07/02/19 07:01 Pulse 103 H 07/02/19 07:02 Resp 18 07/02/19 07:01 BP 103/68 07/02/19 07:02 Pulse Ox 95 06/29/19 12:06 Results & Data Laboratory Results Laboratory Results - last 24 hr 06/28/19 07/01/19 07/01/19 18:24 13:00 16:15 Hgb Hct Sodium Potassium Chloride Carbon Dioxide Anion Gap BUN Creatinine Est Cr Clr Drug Dosing Est GFR ( Amer) Est GFR (Non-Af Amer) BUN/Creatinine Ratio Glucose POC Glucose 185 H Calcium Plomz-0-[id number] 187 Ceruloplasmin 32 Urine Color Yellow Urine Appearance Clear Urine pH 6.0 Ur Specific Union 1.012 Urine Protein Negative Urine Glucose (UA) Negative Urine Ketones Negative Urine Blood Negative Urine Nitrite Negative Urine Bilirubin Negative Urine Urobilinogen Negative Ur Leukocyte Esterase Negative RAÚL Screen NEGATIVE 07/01/19 07/01/19 07/01/19 16:26 17:23 20:45 Hgb Hct Sodium Potassium Chloride Carbon Dioxide Anion Gap BUN Creatinine Est Cr Clr Drug Dosing Est GFR ( Amer) Est GFR (Non-Af Amer) BUN/Creatinine Ratio Glucose POC Glucose 132 H 128 H 159 H Calcium Uxqec-2-Uoyfrmajrdv Ceruloplasmin Urine Color Urine Appearance Urine pH Ur Specific Union Urine Protein Urine Glucose (UA) Urine Ketones Urine Blood Urine Nitrite Urine Bilirubin Urine Urobilinogen Ur Leukocyte Esterase RAÚL Screen 07/02/19 07/02/19 07/02/19 07:44 08:10 08:10 Hgb 12.2 L Hct 36.9 L Sodium Pending Potassium Pending Chloride Pending Carbon Dioxide Pending Anion Gap Pending BUN Pending Creatinine Pending Est Cr Clr Drug Dosing Pending Est GFR ( Amer) Pending Est GFR (Non-Af Amer) Pending BUN/Creatinine Ratio Pending Glucose Pending POC Glucose 165 H Calcium Pending Aohwt-5-Agttxygbrgr Ceruloplasmin Urine Color Urine Appearance Urine pH Ur Specific Union Urine Protein Urine Glucose (UA) Urine Ketones Urine Blood Urine Nitrite Urine Bilirubin Urine Urobilinogen Ur Leukocyte Esterase RAÚL Screen Current Inpatient Medications Current Inpatient Medications: Current Inpatient Medications Acetaminophen (Tylenol) 650 mg PO Q4H PRN PRN Reason: Headache or Minor Fever Stop: 07/25/19 14:02 Al Hydrox/Mg Hydrox/Simethicone (Maalox) 30 ml PO Q4H PRN PRN Reason: GI Upset Stop: 07/25/19 14:02 Aspirin (Ecotrin Ectab) 81 mg PO DAILY [facility] Stop: 07/26/19 08:59 Last Admin: 07/02/19 08:01 Dose: 81 mg Documented by: Atorvastatin Calcium (Lipitor) 80 mg PO QAM NIKOLAI Stop: 07/26/19 08:59 Last Admin: 07/02/19 08:06 Dose: 80 mg Documented by: Bismuth Subsalicylate (Kaopectate) 15 ml PO PRN PRN PRN Reason: Loose Stool Stop: 07/25/19 14:02 Cephalexin HCl (Keflex) 500 mg PO BID [facility] Stop: 07/10/19 22:14 Last Admin: 07/02/19 08:03 Dose: 500 mg Documented by: Cyanocobalamin (Vitamin B-12) 1,000 mcg PO DAILY NIKOLAI Stop: 07/26/19 08:59 Last Admin: 07/02/19 08:08 Dose: 1,000 mcg Documented by: Dextrose (Dextrose 50%) 25 - 50 ml IV UD PRN; Protocol PRN Reason: Hypoglycemia Protocol Stop: 07/25/19 14:44 Divalproex Sodium (Depakote Extended Release) 250 mg PO HS [facility] Stop: 07/28/19 21:59 Last Admin: 07/01/19 22:11 Dose: 250 mg Documented by: Famotidine (Pepcid) 40 mg PO QAM NIKOLAI Stop: 07/26/19 08:59 Last Admin: 07/02/19 08:08 Dose: 40 mg Documented by: Fexofenadine HCl (Nikky) 60 mg PO BID NIKOLAI Stop: 07/25/19 20:59 Last Admin: 07/02/19 08:01 Dose: 60 mg Documented by: Folic [facility] ([facility]olvite) [facility] Stop: 07/26/19 08:59 Last Admin: 07/02/19 08:02 Dose: 1 mg Documented by: [facility]urosemide (Lasix) [facility] Stop: 07/26/19 08:59 Last Admin: 07/01/19 07:39 Dose: 20 mg Documented by: Furosemide (Lasix) 40 mg PO [facility] Stop: 08/01/19 08:59 Last Admin: 07/02/19 08:04 Dose: 40 mg Documented by: Glucagon (Glucagen) 1 mg IM UD PRN; Protocol PRN Reason: Hypoglycemia Protocol Stop: 07/25/19 14:44 Glucose (Glucose 40%) 15 - 30 gm PO UD PRN; Protocol PRN Reason: Hypoglycemia Protocol Stop: 07/25/19 14:44 Glucose (Dex4 Glucose) 4 - 8 tabs PO UD PRN; Protocol PRN Reason: Hypoglycemia Protocol Stop: 07/25/19 14:44 Haloperidol (Haldol) 2.5 mg PO Q4H PRN PRN Reason: Agitation Stop: 07/27/19 14:46 Haloperidol Lactate (Haldol) 5 mg IM Q6H PRN PRN Reason: Agitation Stop: 07/27/19 14:44 Hydroxyzine HCl (Vistaril) 50 mg PO HSZ PRN PRN Reason: Insomnia Stop: 07/25/19 14:02 Hydroxyzine HCl (Vistaril) 25 mg PO Q4H PRN PRN Reason: Anxiety Stop: 07/25/19 14:02 Last Admin: 07/01/19 05:24 Dose: 25 mg Documented by: Insulin Aspart (Novolog Flexpen) 0 units SC [facility] Stop: 07/25/19 17:14 Last Admin: 07/01/19 22:15 Dose: 3 units Documented by: Insulin Glargine (Lantus Solostar Pen) 35 units SQ [facility]; Protocol Stop: 07/31/19 21:59 Last Admin: 07/01/19 22:27 Dose: 35 units Documented by: Isosorbide Mononitrate (Imdur Extended Rel) 60 mg PO [facility] Stop: 07/26/19 08:59 Last Admin: 07/02/19 08:02 Dose: 60 mg Documented by: Lorazepam (Ativan) 1 mg IM Q6H PRN PRN Reason: Agitation Stop: 07/27/19 14:59 Lorazepam (Ativan) 1 mg PO Q6H PRN PRN Reason: Agitation Stop: 07/27/19 14:47 Magnesium Hydroxide (Milk Of Magnesia) 30 ml PO DAILY PRN PRN Reason: Constipation Stop: 07/25/19 14:02 Metoprolol Tartrate (Lopressor) 75 mg PO BID NIKOLAI Stop: 07/25/19 20:59 Last Admin: 07/02/19 08:06 Dose: 75 mg Documented by: Miscellaneous (Carbohydrates For Hypoglycemia) 15 - 30 gm PO UD PRN PRN Reason: Hypoglycemia Treatment Stop: 07/25/19 14:44 Miscellaneous Information (Consult Glycemic Management Pharmacy) 1 ea N/A UD PRN PRN Reason: Consult Stop: 07/26/19 09:10 Multi-Ingredient Cream (Hydrocerin) 1 appln EXT Q8H PRN PRN Reason: dry skin Stop: 07/26/19 10:33 Nitroglycerin (Nitrostat) 0.4 mg SL Q5M PRN PRN Reason: Chest Pain Stop: 07/25/19 14:15 Pantoprazole Sodium (Protonix) 40 mg PO DAILY [facility] Stop: 07/26/19 08:59 Last Admin: 07/02/19 08:07 Dose: 40 mg Documented by: Polyethylene Glycol (Miralax Powder Packet) 17 gm PO QAM [facility] Stop: 07/26/19 08:59 Last Admin: 07/02/19 08:07 Dose: 17 gm Documented by: Potassium Chloride (Klor-Con M20) 20 meq PO QAM [facility] Stop: 07/26/19 08:59 Last Admin: 07/02/19 08:04 Dose: 20 meq Documented by: Risperidone (Risperdal) 3 mg PO HS [facility] Stop: 07/27/19 21:59 Last Admin: 07/01/19 22:11 Dose: 3 mg Documented by: Risperidone (Risperdal) 1 mg PO TID@0900,1300,1600 [facility] Stop: 07/30/19 12:59 Last Admin: 07/02/19 08:08 Dose: 1 mg Documented by: Rivaroxaban (Xarelto) 10 mg PO DAILY@1300 [facility] Stop: 08/01/19 12:59 Senna/Docusate Sodium (Senokot S) 1 tab PO QAM [facility] Stop: 07/26/19 08:59 Last Admin: 07/02/19 08:08 Dose: 1 tab Documented by: Sodium Chloride (Cidra Nasal) 1 - 2 sprays NA PRN PRN PRN Reason: Nasal Dryness/Congestion Stop: 07/25/19 14:02 Thiamine HCl (Vitamin B-1) 200 mg PO BID [facility] Stop: 07/25/19 20:59 Last Admin: 07/02/19 08:08 Dose: 200 mg Documented by: Topiramate (Topamax) 100 mg PO BID [facility] Stop: 07/25/19 20:59 Last Admin: 07/02/19 08:08 Dose: 100 mg Documented by: Tramadol HCl (Ultram) 50 mg PO Q6H PRN PRN Reason: pain Stop: 07/25/19 14:15 Last Admin: 06/29/19 23:45 Dose: 50 mg Documented by: Triamcinolone Acetonide (Kenalog 0.1%) 1 appln EXT TID [facility] Stop: 07/25/19 20:59 Last Admin: 07/02/19 08:03 Dose: 1 appln Documented by: Mental Health & Subst Abuse Tx Therapist Name of Therapist: denies Slot Supervisor Name of Slot Supervisor: denies Post Discharge Appointments Primary Care Physician Name Of Family Doctor: Fox Moran Contact Information Discharge Discharge Address: [address] [place] [id number] (1) Diabetes mellitus, type 2 Diabetes mellitus complication detail: with polyneuropathy Diabetes mellitus complication status: with neurologic complications 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
[2019-07-02 08:49] LABS: Calcium 9.1 mg/dl (8.5-10.1); Creatinine Clr Calc Pharmacy 59.6 ml/min; Est GFR (African American) 67.1; Est GFR (Non-African American) 57.9
[2019-07-02] MEDS: INSULIN ASPART 100 UNITS/ML 3 ML PEN SC SCH ×4 (09:38→21:35)
[2019-07-02] MEDS: TRAMADOL HCL 50 MG TABLET PO PRN (10:37)
[2019-07-02] MEDS: RIVAROXABAN 10 MG TABLET PO SCH (13:20)
--- NOTE | 2019-07-02 17:49 | Hospitalist Progress Note ---
Date of Service July 02, 2019 Assessment & Plan (1) Lower extremity edema: 74 yo medically complicated male admitted to psychiatric unit with worsening of L lower extremity edema and erythema, found to have superficial venous thromboembolism. Superficial venous thrombosis - Venous duplex 07/01 with following impression: extensive superficial venous thrombosis in the greater saphenous vein extending to within 1.5 cm of the saphenofemoral junction, which is increased from prior. - given proximity to saphenofemoral junction (<5 cm), patient requires anticoagulation - Xarelto 10mg, daily for 45 days. Pharmacy consulted and noted no major contraindications/ interactions with patient's current medication regimen. Case management reports cost of $45 per month; patient confirms this is affordable Lower extremity edema - edema may be multifactorial (ie superficial venous thrombosis, venous insufficiency, fluid overload from CHF) - Increased lasix to 40mgs daily. creatinine 1.2, BUN 26; monitor with daily BMP - stockings not permitted on psych unit due to ligature risk; advised to keep legs propped up when sitting. - albumin mildly low at 3.1 Chronic CHF - NT-Pro BNP negative on 06/29; CXR from 06/29 without signs of pulmonary edema. While patient is not in florid fluid overload, does have +3 pitting edema in b/l lower extremities - daily weights and I/Os ordered - lasix as above - BUN/Creatinine stable. - fluid restrict to 2L; salt restriction diet Cellulitis of LE - erythema and warmth on exam concerning for cellulitis - Keflex 500mg, PO, BID for 7 days - address LE edema - continue to monitor Bilateral Flank pain - patient does have history of kidney stones - no urinary sxs at present - UA on 06/29 without blood; UA from 07/01 neg for blood - pain likely musculoskeletal in origin; Tylenol ordered PRN - urinary incontinence last night- likely secondary to increase in diuretic dose (the additional dieretic dose was also given late afternoon on 07/01). CAD s/p recent CABG - Continue aspirin, atorvastatin, metoprolol DM - continue current regimen Code status: DNR/DNI DVT ppx: On therapeutic Lovenox FEN/GI: Heart Healthy, DM2 diet with sodium and fluid restriction Dispo: Psych unit (2) Cellulitis: Supervising Physician Co-Signing Physician Notes Resident Physician Supervision Note: I independently interviewed and examined the patient and verified the schultz history and physical, reviewed labs and image studies, discussed the case with the resident Dr. Real and agree with the findings and care plan. Subjective No acute events overnight. Did report wetting the bed last night. Bilateral flank pain persistent. LE edema same as yesterday. Eating and ambulating well. Propping his legs up often throughout day. Review of Systems Cardiovascular: + edema (worse from baseline); no chest pain, no dyspnea and no calf pain Genitourinary: + flank pain (b/l); no dysuria, no difficulty urinating and no urinary frequency Physical Exam Constitutional: WD/WN, vitals as above Eyes: PERRL, conjunctivae normal, anicteric sclerae ENMT: external ear and nose normal, oropharynx normal Neck: normal visual inspection and trachea midline Respiratory: normal respiratory effort, lungs clear to auscultation Cardiovascular: RRR, no murmur, no edema Heart Sounds: normal S1 and normal S2 Extremities: + pedal edema (+3 bilaterally ) Gastrointestinal (Abdomen): normal bowel sounds, soft, nontender, no hepatosplenomegaly No CVA tenderness b/l Musculoskeletal: + bilateral paraspinal muscle tenderness in lumbar region Neurologic: Full strength in b/l lower extremities. No saddle anesthesia Psychiatric: A+Ox3, euthymic affect Thought Content: + delusions (believes there is begs crawling on his bed and in his GI tract) Results & Data Vital Signs (Past 12 Hours) Vital Signs Temp Pulse Pulse Resp BP Pulse Ox 07/02/19 10:23 99 07/02/19 07:02 103 H 103/68 07/02/19 07:01 36.5 C 96 H 96 H 18 105/66 Resident Activity Tracking Resident Involvement: Resident Care Provided Care Provided: Adult Hospital Medicine
[2019-07-02 17:58] LABS: Arsenic Blood 34 mcg/L (<23); Collection Sample Venous; Lead Blood 2 mcg/dL (<5); Mercury, blood <4 mcg/L (<=10)
[2019-07-02] MEDS: DIVALPROEX EXTENDED RELEASE 250 MG TABCR PO SCH (21:21)
[2019-07-02] MEDS: risperiDONE 3 MG TABLET PO SCH (21:21)
[2019-07-02] MEDS: INSULIN GLARGINE SOLOSTAR 100 UNITS/ML 3 ML PEN SQ SCH (21:24)
[2019-07-03 08:03] LABS: BUN Creatinine Ratio 25.2 (10-20); Creatinine Clr Calc Pharmacy 59.4 ml/min; Est GFR (African American) 65.8; Est GFR (Non-African American) 56.8; Potassium 4.1 mmol/L (3.5-5.1)
[2019-07-03] MEDS: cephALEXin 500 MG CAP PO SCH ×2 (09:00→21:14)
[2019-07-03] MEDS: ASPIRIN 81 MG ECTAB PO SCH (09:00)
[2019-07-03] MEDS: ATORVASTATIN 40 MG TAB PO SCH (09:00)
[2019-07-03] MEDS: FEXOFENADINE 60 MG TAB PO SCH ×2 (09:00→21:14)
[2019-07-03] MEDS: PANTOprazole 40 MG TAB PO SCH (09:03)
[2019-07-03] MEDS: CYANOCOBALAMIN 500 MCG TABLET (VITAMIN B-12) PO SCH (09:03)
[2019-07-03] MEDS: DOCUSATE SODIUM/SENNA 50/8.6MG TAB PO SCH (09:03)
[2019-07-03] MEDS: POTASSIUM CHLORIDE 20 MEQ TABCR PO SCH (09:04)
[2019-07-03] MEDS: FUROSEMIDE 40 MG TAB PO SCH (09:04)
[2019-07-03] MEDS: risperiDONE 1 MG TABLET PO SCH ×3 (09:04→15:49)
[2019-07-03] MEDS: THIAMINE HCL 100 MG TAB PO SCH ×2 (09:04→21:15)
[2019-07-03] MEDS: FAMOTIDINE 40 MG TABLET PO SCH (09:04)
[2019-07-03] MEDS: TOPIRAMATE 100 MG TAB PO SCH ×2 (09:05→21:15)
[2019-07-03] MEDS: FOLIC ACID 1 MG TAB PO SCH (09:05)
[2019-07-03] MEDS: POLYETHYLENE (MIRALAX) 17 GM PACK PO SCH (09:05)
[2019-07-03] MEDS: INSULIN ASPART 100 UNITS/ML 3 ML PEN SC SCH ×4 (09:15→21:18)
--- NOTE | 2019-07-03 09:53 | Psychiatric Progress Note ---
Date of Service July 03, 2019 Impression / Recommendations Impression 74-year-old male with a history of coronary artery disease status post CABG in 05/2019 at [facility] who presented with delusional disorder. He was hospitalized on the medical service first for CHF, then for multiple medical problems, and was seen by the psychiatry consult service on both hospitalizations. He has also been having episodes of unresponsiveness best described as conversion reactions. His family reports that he has been increasingly focused on delusions since February 2019, perseverating on them to the point that he was unable to function, and has been threatening and ag gressive to the point that his no longer feels safe at home with him. He had been prescribed citalopram for unclear reasons, and it has now been discontinued as he had some manic symptoms. He has been started on risperidone which has been titrated to 6 mg daily in divided doses, and Depakote for irritability, mood lability, and aggression. He has made threats to both staff and his while here, and at one point became agitated to the extent that he had to be given IM medications and be placed on an involuntary commitment on 06/27/2019. He is on an 303 involuntary commitment as of 07/02/2019. He initially stated unwillingness to return home to live with his , and wanted to go to supportive living in [place], but we have confirmed this is not an option, and he is now considering returning home. A family meeting was held with his by phone and daughter in person, and he will need another meeting with his . A brief, but successful visit occurred last evening - in which patient interacted with and demonstrated appropriate behavioral control. We will encourage additional visits during his hospitalization. He is improving as he has been less preoccupied with delusions and agitation has decreased. Inpatient treatment remains medically necessary due to the severity of symptoms and risk of harm to both himself and others if discharged prematurely. Although he still lacks insight into his condition, he is taking medication and stating willingness for outpatient treatment and mental health services. (1) Delusional disorder, somatic type: 06/25 -continue risperidone 1 mg 3 times daily. FLP from 06/06/2019 was within normal limits. Fasting glucose 158. -Extensive medical work-up of psychosis and neurological symptoms including: Head CT, brain MRI, EEG, prolactin, PTH, cortisol, RAÚL, RPR, Lyme IgG and IgM, HIV, hepatitis C, Neurology and orthopedic consultations. -Differential includes mood disorder (has displayed manic symptoms) and frontotemporal dementia. -Patient unable to reality test. Continue to offer support and strategies for distress tolerance. -Obtain collateral information and involve family as able. -Encourage patient to attend to participate in groups and therapy. Work on healthy coping skills and discharge safety plan. 06/26 - Continue risperidone and consolidate to 1mg qam and 2mg hs (which may also help with sleep). - Patient very poorly responsive to attempts to reframe his concerns as being influenced by psychological distress, and absolutely unable to reality test. - Recommend family meeting with his and daughter once he is able to tolerate it. is reportedly currently medically ill and quite stressed, and is he has been threatening her, we will postpone this for now. - Refer for outpatient case management services and explore housing options, as he is requesting supportive living referral. 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 It is recognized that this disorder, like all delusional disorders, tend to respond poorly to treatment. In this case, it will be important to avoid persistent reality testing, and the treatment team and I have discussed the fact that while we can and should provide reality testing when the patient escalates, we should not subsequently engage in any form of what might be considered a debate or attempt to convince. 06/28 - Lead level is low (2). - Now on a 302 involuntary commitment after episode of agitation and threatening staff yesterday, related to his delusions. - Delusions continue, risperidone just increased to total of 5mg daily in divided dosing. Start trial of low-dose Depakote for irritability/anger outbursts/agitation -250 mg at bedtime. - Family meeting canceled due to agitation. Will reschedule once he is in better behavioral control. - Continue private room due to agitation and psychosis. 06/29 - Continue private room, as patient continues to have episodes of agitation, and has been making threats towards staff. He is unpredictable and does not respond well to attempts to redirect him. - Check heavy metal screen given his reports of past toxin exposure. - Increase risperidone to 1 mg 3 times daily and 3 mg at bedtime to target ongoing delusions. EKG today showed QTC 414. 06/30 - Patient remains delusional and unable to reality test. He continues to threaten harm to staff, and called his and threatened her. There are still guns in the home, although is working on getting them removed. - File for 303 involuntary commitment due to ongoing psychosis with threats to harm others. - Family meeting scheduled with his daughter and this afternoon. - SW to follow up on BCM referral. 07/01 - Continue current medication regimen presently - patient appears more slowed with mild improvement in insight demonstrated today. He continues to demonstrate delusional thinking, but is far less preoccupied with the presence of bugs during assessment - 303 hearing is scheduled for 07/02 - Pt will require coordination of outpatient services, recommendation is for a BCM referral 07/02 -303 commitment granted. -Refer for BCM and outpatient psychiatric care. -Willing to work on relationship with and attempt to reconcile so that he can return to home at discharge. They will need a family meeting with the manager social. 07/03 - Continue current medication regimen - Valproic acid ordered - subtherapeutic at 24mcg/mL - behavior is more appropriate, less agitated - Tolerated visit from last evening. Continue visits and schedule in- person meeting when appropriate - Will need to continue discussion regarding discharge plans (2) Intermittent explosive disorder: 06/29 - patient has a long history of anger problems, with rapid and unpredictable mood changes, and aggressive and threatening behavior. He does not have sufficient mood symptoms to support a bipolar diagnosis, and IED may be the most appropriate diagnosis. He was started on Depakote XR 250 mg at bedtime yesterday, and we will titrate as tolerated. 07/02 -order Depakote trough level for tomorrow a.m. Patient has been in better behavioral control. Continue to assist him in identifying coping strategies 07/03 - Valproic acid subtherapeutic at 24mcg/mL - behavior remains improved, less agitated (3) Conversion disorder: 06/25 - address psychosocial stressors, identify healthy coping skills, and provide reassurance and support. - Discussed with Dr. Aparicio, and patient has future unresponsive events, recommended vital signs, blood glucose, and if parameters are normal, contacting the hospitalist to evaluate the patient. - He was seen by orthopedics today, who recommended physical therapy for global weakness. PT consult ordered. 06/27 - The patient tells us that he feels that he is having transient ischemic attacks, and refers to his periods of paralysis and confusion by that name. - In addition to a conversion disorder, it is possible that the patient is experiencing prolonged adverse effects associated with general anesthesia or, as the patient suggests, brief transient ischemic attacks, although as described, these episodes are not typically consistent with TIAs. 07/03 - Additional history obtained, suggesting patient was diagnosed with conversion disorder in 2006; had followed routinely with neurology on an outpatient basis - Recommending continued neurologic follow-up after discharge - Recommending long-term psychiatric intervention - meeting with consistent therapist and psychiatric prescriber to appropriately manage contributing factors - No mention of continued events of numbness or unresponsiveness in several days (4) Eczematous dermatitis: 06/26 - reviewed dermatology note from 06/04/[address] Mac; patient had last been seen in 03/2019, reported multiple episodes of itching, burning, irritated areas of skin, which had previously responded to IM Kenalog. He received another injection of IM Kenalog, was diagnosed with eczematous dermatitis, and appropriate bathing practices were reviewed. Daily moisturization with Cetaphil cream was recommended, and avoidance of applying anything else to the skin. -Patient has been receiving triamcinolone topically once daily here. Will add Eucerin cream as skin appears dry and irritated. No signs of infection or parasites, although he has multiple areas of excoriation on his lower and upper extremities, face, and neck. 06/27 - As previously noted, the patient tends to draw our attention to patches of irritated skin and eczematous dermatitis, and refer to the associated skin "flaking" as constituting worms or "bugs" that he believes is crawling from his skin. He also experiences tingling and paresthesias that also seem to be contributing to his belief that he is contaminated with parasites. This is not atypical in cases of delusional parasitosis. - Treating the patient's current condition is important within the context of his associated psychiatric complaints. 07/01 - Pt initiated on Keflex 500mg BID for 7 days (5) Fracture of left distal radius: 06/26 - appreciate orthopedic recommendations; cast remains in place, but patient asking to have it removed. 06/29 - cast removed, continue brace. Laboratory work-up for poor healing per Ortho: Iron, TIBC, transferrin all within normal limits. LFTs show alkaline phosphatase 127 (was 96 on admission). Total protein normal, albumin 3.1. Alpha-1 antitrypsin, ceruloplasmin, and RAÚL screen pending. Cholesterol 90. 06/30 - PT consult requested but they have not seen him yet. -Orthopedics is recommending outpatient follow-up in 4 weeks. (6) Hypertension: Continue furosemide 20 mg daily and metoprolol 75 mg twice daily. Continue home dose of Imdur. -Follow-up with prepared foods service team member as an outpatient. Her hospitalist discharge summary, he was instructed to follow-up at the [facility] within a week of discharge. (7) Alcohol abuse: History of alcohol abuse, no significant use in the past 3 years. (8) Vitamin B12 deficiency: Vitamin B12 from 06/15/2019 was 219. Folate 4.16. Vitamin B 1 6. Continue vitamin B12 1000 mcg daily, folic acid 1 mg daily, and thiamine 200 mg twice daily. (9) Diabetes mellitus, type 2: 06/25 -continue heart healthy, carb consistent diabetic diet, and insulin regimen per diabetic pharmacist. (10) Stage III chronic kidney disease: 06/19 -creatinine returned to baseline as of 06/24/2019 (1.18); was as high as 1.65 on 06/23/2019. 07/03 - BMP rechecked today: Creatinine remains wnl at 1.25; however BUN remains elevated increased from 26 (07/02/2019) to 32 (07/03/2019) (11) Code status needs review: Patient was DNR/DNI on the medical floor. He voices that he continues to want this. He expresses understanding of this, despite his psychosis. It was documented during other admissions that he was DNR/DNI. He has not been suicidal. (12) Coronary artery disease: 06/29 -reporting chest pain today, difficult to tell how much of his reported symptoms are influenced by psychosis -ordered EKG, vital sign recheck, and blood glucose. -Consulted the hospitalist service, and spoke with Dr. Cunningham. Appreciate assistance and recommendations. 06/30 - Appreciate recommendations from Drs. Fajardo and Pili: Monitor weight, and if trending up, contact them for follow-up. 07/01 - Lasix increased to 40mg daily; I&O's ordered along with daily weights - Pt initiated on Lovenox today, with recommendation to transition to Xarelto 10mg daily for 45 days due to superficial venous thrombosis with evidence of increased blockage - Appreciate recommendations and continued input from hospitalist team 07/02 - Care coordinated with Drs. Frey, Addie, and Bryant. Appreciate their assistance in managing his multiple medical conditions. Xarelto co-pays $45 a month, which patient indicated is affordable. 07/03 - Appreciate ongoing recommendations from hospitalist team - Continue daily I&O's and weights - Additional recommendations per hospitalist team as indicated (13) Cognitive disorder: 06/30 - cognitively impaired, with a 15/30 on the [facility] today. Unclear if he has been diagnosed with a neurocognitive disorder in the past. 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 He also has a history of alcohol abuse which could be contributing to cognitive dysfunction. We will continue to monitor as his psychosis hopefully improves. -Prior to discharge, we will need to discuss recommendations regarding not driving until he is fully stabilized and is cleared by his physician. He is not yet ready to tolerate this discussion. 07/01 - Will need to discuss driving recommendations at time of discharge, given ongoing psychiatric symptoms and cognitive impairment as above - He did indicate that his prepared foods service team member had already advised him not to drive for 10-weeks after his operation on 05/23/2019 - therefore already aware he is not to be driving for a period of time - Will need to follow-up with a more thorough conversation when it seems patient can better tolerate this Risk Factors Assessment Male: Yes : Yes Do You Have Access To A Gun?: Yes (Multiple guns in the home) Health Problems: Yes Mental Health Diagnoses: Yes Substance Use Disorders: Yes Previous Attempt: No Previous Psychiatric Hospitalization: Yes Hopelessness: No Smoker: No Protective Factors Assessment Worship Beliefs: No : Yes (But states he is going to file for divorce) Responsible for Young Children: No Employed: No Stable Relationships: No Supportive Family: Yes Interval History Identifying Information EMANUEL GRANT is a 74-year-old M who currently lives in [place] with his , has a history of delusional parasitosis and conversion disorder, and was admitted on 06/25/19 13:47 on a 201 voluntary commitment for delusional parasitosis. He was initially admitted to the hospitalist service 06/14/2019 - 06/21/2019, was transferred to the U, but then transferred back to the hospitalist service 06/23/2019 after an episode of unresponsiveness. He had a negative medical work-up and was been medically cleared and transferred back to the behavioral health unit 06/25/2019. Chief Complaint "Oh, I'm doing dandy. All is going pretty good, thanks." Review of Systems Notes Constitutional: reports disrupted sleep due to coughing spell Cardiovascular: denied Respiratory: denied Gastrointestinal: denied Neurological: denied Psychiatric: denies symptoms other than stated above Total of at least 10 systems reviewed, pertinent positives as above and in HPI. Sleep Information Total Hours of Sleep: 4.75 Sleep Comments: pt incontinent of urine this am and required his bed linens to be changed. pt pleasant and cooperative. pt awoke @0430 and thereafter. pt on q-15 minute checks Meal Information Percent Meal Consumed - Breakfast: 100 Percent Meal Consumed - Lunch: 100 Percent Meal Consumed - Dinner: 100 Subjective Subjective Patient was seen & assessed and interval progress reviewed with nursing and social work. Staff report the patient has been attending groups, though is at times off topic with subject matter and requires redirection. He did tolerate visits from his and daughter yesterday - reportedly in appropriate behavioral control for both visits. Pt was seen today to assess progress since admission. Pt states that he is "just dandy" today, and that "all is going pretty good." When asked about his mood, the patient states it is "very, very, very good." He does admit to interrupted sleep last evening due to "a coughing fit." He admits his and daughter visited, separately, last evening. Pt states the visit with his was "good, we talked about needing to get the guns out of the house. I know the rafal was after me, the neighbor said I was at a [facility] in [place], so they'll be looking." Pt verbalizes understanding of the need to secure guns in the home, stating "they told me I made statements about starting a war or blowing people up. I don't remember saying that, but I guess people here did. Anyway, it's not safe to [guns] them laying around the house." Pt states that he was able to talk with the staff member he claims "called me a damn liar", and apologized for his behavior. He continues to state that he handled the situation inappropriately, but also continues to believe that bugs continue to be eroding his body. He states, "they've actually gotten worse." Attempts were made to encourage patient, by stating he seems to be less preoccupied with the topic, and it has been nice to have him speak about other subjects - he states the bugs are even more bothersome, and that he remains uncomfortable with their presence. He denies other needs or concerns today. Physical Exam Psychiatric Orientation: alert and cooperative Apperance: appropriately dressed, appropriately groomed and appeared stated age Eye Contact: good eye contact Motor Behavior: no abnormal motor movements (observed while sitting in chair in day area) Speech: + loud speech and normal rate/rhythm/volume of speech (continues to ramble at times, but less pressured/rapid in nature) Affect: euthymic affect and mood congruent with affect Mood: no depressed mood ("Dandy" and "very, very, very, very good") Thought Process: goal directed thought process Thought Content: + delusions (continues to report bug infestation - less preoccuped with these thoughts); no hopelessness Suicidal Thoughts: denies suicidal thoughts Homicidal Thoughts: denies homicidal thoughts Hallucinations: + visual hallucinations (continues to see bugs; believing they are crawling out of his skin); no auditory hallucinations Cognition: attention grossly intact and language grossly intact Insight: + severely impaired insight Judgement: + impaired judgement Vital Signs (Past 24 Hours) Last Vital Signs Temp 36.7 C 07/03/19 06:48 Pulse 90 07/03/19 06:50 Resp 18 07/03/19 06:48 BP 91/80 L 07/03/19 06:50 Pulse Ox 97 07/03/19 06:48 Results & Data Laboratory Results Laboratory Results - last 24 hr 06/29/19 07/02/19 07/02/19 11:08 12:12 17:05 Sodium Potassium Chloride Carbon Dioxide Anion Gap BUN Creatinine Est Cr Clr Drug Dosing Est GFR ( Amer) Est GFR (Non-Af Amer) BUN/Creatinine Ratio Glucose POC Glucose 186 H 158 H Calcium Valproic Acid Heavy Metal Source Venous Arsenic 34 H Lead 2 Mercury <4 07/02/19 07/03/19 07/03/19 20:39 07:21 07:22 Sodium 139 Potassium 4.1 Chloride 109 H Carbon Dioxide 23 Anion Gap 7.0 BUN 32 H Creatinine 1.25 Est Cr Clr Drug Dosing 59.4 Est GFR ( Amer) 65.8 Est GFR (Non-Af Amer) 56.8 BUN/Creatinine Ratio 25.2 H Glucose 185 H POC Glucose 229 H Calcium 9.0 Valproic Acid 24 L Heavy Metal Source Arsenic Lead Mercury 07/03/19 08:07 Sodium Potassium Chloride Carbon Dioxide Anion Gap BUN Creatinine Est Cr Clr Drug Dosing Est GFR ( Amer) Est GFR (Non-Af Amer) BUN/Creatinine Ratio Glucose POC Glucose 152 H Calcium Valproic Acid Heavy Metal Source Arsenic Lead Mercury Current Inpatient Medications Current Inpatient Medications: Current Inpatient Medications Acetaminophen (Tylenol) 650 mg PO Q4H PRN PRN Reason: Headache or Minor Fever Stop: 07/25/19 14:02 Al Hydrox/Mg Hydrox/Simethicone (Maalox) 30 ml PO Q4H PRN PRN Reason: GI Upset Stop: 07/25/19 14:02 Aspirin (Ecotrin Ectab) 81 mg PO DAILY [facility] Stop: 07/26/19 08:59 Last Admin: 07/03/19 09:00 Dose: 81 mg Documented by: Atorvastatin Calcium (Lipitor) 80 mg PO QAM [facility] Stop: 07/26/19 08:59 Last Admin: 07/03/19 09:00 Dose: 80 mg Documented by: Bismuth Subsalicylate (Kaopectate) 15 ml PO PRN PRN PRN Reason: Loose Stool Stop: 07/25/19 14:02 Cephalexin HCl (Keflex) 500 mg PO BID [facility] Stop: 07/10/19 22:14 Last Admin: 07/03/19 09:00 Dose: 500 mg Documented by: Cyanocobalamin (Vitamin B-12) 1,000 mcg PO DAILY [facility] Stop: 07/26/19 08:59 Last Admin: 07/03/19 09:03 Dose: 1,000 mcg Documented by: Dextrose (Dextrose 50%) 25 - 50 ml IV UD PRN; Protocol PRN Reason: Hypoglycemia Protocol Stop: 07/25/19 14:44 Divalproex Sodium (Depakote Extended Release) 250 mg PO HS [facility] Stop: 07/28/19 21:59 Last Admin: 07/02/19 21:21 Dose: 250 mg Documented by: Famotidine (Pepcid) 40 mg PO [facility] Stop: 07/26/19 08:59 Last Admin: 07/03/19 09:04 Dose: 40 mg Documented by: Fexofenadine HCl (Nikky) 60 mg PO BID [facility] Stop: 07/25/19 20:59 Last Admin: 07/03/19 09:00 Dose: 60 mg Documented by: Folic Acid (Folvite) 1 mg PO [facility] Stop: 07/26/19 08:59 Last Admin: 07/03/19 09:05 Dose: 1 mg Documented by: Furosemide (Lasix) 20 mg PO [facility] Stop: 07/26/19 08:59 Last Admin: 07/01/19 07:39 Dose: 20 mg Documented by: Furosemide (Lasix) 40 mg PO [facility] Stop: 08/01/19 08:59 Last Admin: 07/03/19 09:04 Dose: 40 mg Documented by: Glucagon (Glucagen) 1 mg IM UD PRN; Protocol PRN Reason: Hypoglycemia Protocol Stop: 07/25/19 14:44 Glucose (Glucose 40%) 15 - 30 gm PO UD PRN; Protocol PRN Reason: Hypoglycemia Protocol Stop: 07/25/19 14:44 Glucose (Dex4 Glucose) 4 - 8 tabs PO UD PRN; Protocol PRN Reason: Hypoglycemia Protocol Stop: 07/25/19 14:44 Haloperidol (Haldol) 2.5 mg PO Q4H PRN PRN Reason: Agitation Stop: 07/27/19 14:46 Haloperidol Lactate (Haldol) 5 mg IM Q6H PRN PRN Reason: Agitation Stop: 07/27/19 14:44 Hydroxyzine HCl (Vistaril) 50 mg PO HSZ PRN PRN Reason: Insomnia Stop: 07/25/19 14:02 Hydroxyzine HCl (Vistaril) 25 mg PO Q4H PRN PRN Reason: Anxiety Stop: 07/25/19 14:02 Last Admin: 07/01/19 05:24 Dose: 25 mg Documented by: Insulin Aspart (Novolog Flexpen) 0 units SC [facility] Stop: 07/25/19 17:14 Last Admin: 07/03/19 09:15 Dose: 9 units Documented by: Insulin Glargine (Lantus Solostar Pen) 35 units SQ HS [facility]; Protocol Stop: 07/31/19 21:59 Last Admin: 07/02/19 21:24 Dose: 35 units Documented by: Isosorbide Mononitrate (Imdur Extended Rel) 60 mg PO QAM [facility] Stop: 07/26/19 08:59 Last Admin: 07/02/19 08:02 Dose: 60 mg Documented by: Lidocaine (Lidoderm 5%) 1 patch TD DAILY PRN PRN Reason: pain Stop: 08/01/19 18:13 Lorazepam (Ativan) 1 mg IM Q6H PRN PRN Reason: Agitation Stop: 07/27/19 14:59 Lorazepam (Ativan) 1 mg PO Q6H PRN PRN Reason: Agitation Stop: 07/27/19 14:47 Magnesium Hydroxide (Milk Of Magnesia) 30 ml PO DAILY PRN PRN Reason: Constipation Stop: 07/25/19 14:02 Metoprolol Tartrate (Lopressor) 75 mg PO BID [facility] Stop: 07/25/19 20:59 Last Admin: 07/02/19 21:20 Dose: 75 mg Documented by: Miscellaneous (Carbohydrates For Hypoglycemia) 15 - 30 gm PO UD PRN PRN Reason: Hypoglycemia Treatment Stop: 07/25/19 14:44 Miscellaneous (Remove Lidoderm Patch) 1 ea N/A DAILY@2100 [facility] Stop: 08/02/19 20:59 Miscellaneous Information (Consult Glycemic Management Pharmacy) 1 ea N/A UD PRN PRN Reason: Consult Stop: 07/26/19 09:10 Multi-Ingredient Cream (Hydrocerin) 1 appln EXT Q8H PRN PRN Reason: dry skin Stop: 07/26/19 10:33 Nitroglycerin (Nitrostat) 0.4 mg SL Q5M PRN PRN Reason: Chest Pain Stop: 07/25/19 14:15 Pantoprazole Sodium (Protonix) 40 mg PO DAILY [facility] [facility] Stop: 07/26/19 08:59 Last Admin: 07/03/19 09:03 Dose: 40 mg Documented by: Polyethylene Glycol (Miralax Powder Packet) 17 gm PO QAM [facility] Stop: 07/26/19 08:59 Last Admin: 07/03/19 09:05 Dose: 17 gm Documented by: Potassium Chloride (Klor-Con M20) 20 meq PO QAM [facility] Stop: 07/26/19 08:59 Last Admin: 07/03/19 09:04 Dose: 20 meq Documented by: Risperidone (Risperdal) 3 mg PO HS [facility] Stop: 07/27/19 21:59 Last Admin: 07/02/19 21:21 Dose: 3 mg Documented by: Risperidone (Risperdal) 1 mg PO TID@0900,1300,1600 [facility] Stop: 07/30/19 12:59 Last Admin: 07/03/19 09:04 Dose: 1 mg Documented by: Rivaroxaban (Xarelto) 10 mg PO DAILY@1300 [facility] Stop: 08/01/19 12:59 Last Admin: 07/02/19 13:20 Dose: 10 mg Documented by: Senna/Docusate Sodium (Senokot S) 1 tab PO QAM [facility] Stop: 07/26/19 08:59 Last Admin: 07/03/19 09:03 Dose: 1 tab Documented by: Sodium Chloride (Reeves Nasal) 1 - 2 sprays NA PRN PRN PRN Reason: Nasal Dryness/Congestion Stop: 07/25/19 14:02 Thiamine HCl (Vitamin B-1) 200 mg PO BID [facility] Stop: 07/25/19 20:59 Last Admin: 07/03/19 09:04 Dose: 200 mg Documented by: Topiramate (Topamax) 100 mg PO BID [facility] Stop: 07/25/19 20:59 Last Admin: 07/03/19 09:05 Dose: 100 mg Documented by: Tramadol HCl (Ultram) 50 mg PO Q6H PRN PRN Reason: pain Stop: 07/25/19 14:15 Last Admin: 07/02/19 10:37 Dose: 50 mg Documented by: Triamcinolone Acetonide (Kenalog 0.1%) 1 appln EXT TID [facility] Stop: 07/25/19 20:59 Last Admin: 07/02/19 21:21 Dose: Not Given Documented by: Mental Health & Subst Abuse Tx Therapist Name of Therapist: denies Mannequin Mounter Name of Mannequin Mounter: denies Post Discharge Appointments Primary Care Physician Name Of Family Doctor: DOUG Moran Primary Care Provider Appointment Comment: [address] [place] [address] Home Health Services Home Health Services:: banking services officer, Physical Therapy and Occupational Therapy Home Health Agency: [facility] Home Health Neurologist Name of Neurologist: DOUG Bañuelos Neurologist's Neurology Appointment Comment: [address], [address], [place] [address] Contact Information Discharge Discharge Address: [address] [place] [address] (1) Diabetes mellitus, type 2 Diabetes mellitus complication detail: with polyneuropathy Diabetes mellitus complication status: with neurologic complications Diabetes mellitus nursing home insulin use: with termite inspector use Qualified Code(s): E11.42 - Type 2 diabetes mellitus with diabetic polyneuropathy; Z79.4 - half-way (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
[2019-07-03] MEDS: LIDOCAINE 5% 1 PATCH TD PRN (10:19)
[2019-07-03] MEDS: ISOSORBIDE MONO EXTENDED REL 60 MG TABCR PO SCH (10:19)
[2019-07-03] MEDS: METOPROLOL TARTRATE 25 MG TAB PO SCH ×2 (10:19→21:15)
[2019-07-03] MEDS: TRIAMCINOLONE ACET 0.1% OINT 15 GM TUBE EXT SCH ×3 (10:20→21:28)
[2019-07-03] MEDS: ACETAMINOPHEN 325 MG TAB PO PRN (10:20)
--- NOTE | 2019-07-03 10:51 | Pharmacy Report ---
Pharmacy Glycemic Short Note 2 - Date of Service July 03, 2019 - Glycemic Short BSG Results (Last 24 hours): 07/02/19 07/02/19 07/02/19 12:12 17:05 20:39 Glucose POC Glucose 186 H 158 H 229 H 07/03/19 07/03/19 07:21 08:07 Glucose 185 H POC Glucose 152 H OUTPATIENT ANTIDIABETIC REGIMEN: * Lantus 40-60 units HS * Humalog 10-15 units prior to meals ASSESSMENT: 07/03: * Patient is currently receiving an average of 80 units of insulin per day * 35 units of basal insulin - dose increased 2 days ago * 40 units of prandial/correctional insulin * BSGs ranging 152-229 over the past 24hrs * Risk factors for insulin resistance are constant over the past 24hrs * Infection is being adequately treated/Pt status improving * Anticipating insulin regimen will need increased for the next 24hrs d/t : * AM Fasting BSG = 152; therefore Basal insulin needs increased further * Post-prandial BSGs are elevated/BSGs rise throughout the day therefore Tighten CF/CR 07/01: * Patient has started on Keflex for cellulitis * Majority of BSGs remain > 140 mg/dL. Some of this could be related to snacking but since most are above goal and patient requiring correctional throughout the day, will increase basal dose by ~15% 06/30: Pt's BSGs elevated at times: [phone]/dL. Possible etiology includes snacking between meals. FBS today is reasonable. No acute change in insulin requirements are currently anticipated. We will continue with insulin as ordered: PLAN FOR INPATIENT GLYCEMIC CONTROL: * Basal insulin: increase by 15% * Lantus 40 units qHS * Bolus insulin: tighten CF/CR, can likely loosen CF once more basal on board * NovoLog per scale ACHS or Q6hrs while NPO * Goal Range: Low 110 mg/dL - High 140 mg/dL * Correction Factor: 15 mg/dL/unit * Nutritional / Prandial insulin per carb ratio of 1 unit per 6 grams CHO consumed PLAN FOR DISCHARGE: * HbA1c = 6.5% on 05/15/19 * Goal A1c less than 7%. * Home dose of Lantus was reportedly causing hypoglycemia for patient. Recommend decreasing Lantus dose to 30 units daily at bedtime and use Humalog before meals on a sliding scale based on BSGs.
[2019-07-03] MEDS: RIVAROXABAN 10 MG TABLET PO SCH (13:39)
--- NOTE | 2019-07-03 15:27 | Hospitalist Progress Note ---
Date of Service July 03, 2019 Assessment & Plan (1) Lower extremity edema: 74 yo medically complicated male admitted to psychiatric unit with worsening of L lower extremity edema and erythema, found to have superficial venous thromboembolism. Superficial venous thrombosis - Venous duplex 07/01 with following impression: extensive superficial venous thrombosis in the greater saphenous vein extending to within 1.5 cm of the saphenofemoral junction, which is increased from prior. - given proximity to saphenofemoral junction (<5 cm), patient requires anticoagulation - Xarelto 10mg, daily for 45 days. Pharmacy consulted and noted no major contraindications/ interactions with patient's current medication regimen. Case management reports cost of $45 per month; patient confirms this is affordable Lower extremity edema - worse; seems to be dependent from venous stasis, as increase dose in lasix did not result in improvement - albumin mildly low at 3.1 (unlikely to be related to lack of oncotic pressure) - Etiology may be leaky veins vs. increase in hydrostatic pressure (ie obstruction). Last echo from 06/25/2019- normal right ventricle function - increase in lasix dose from 20mg to 40mg resulted in bump in kidney function: creatinine 1.25, BUN 40. will hold lasix for tomorrow 07/04 given elevation in BUN. - stockings not permitted on psych unit due to ligature risk; advised to keep legs propped up when sitting. unit looking into getting daytime use of compression stockings approved - we have requested unit increase activity (ie walk on unit treadmill); mild intensity level preferred in setting of recent CABG Chronic CHF - NT-Pro BNP negative on 06/29; CXR from 06/29 without signs of pulmonary edema. While patient is not in florid fluid overload, does have +3 pitting edema in b/l lower extremities - weight increased 2 kg from 07/02). I/Os show no diuresis thus far - daily weights and I/Os ordered - holding lasix for 07/04 in light of elevated kidney function as above - fluid restrict to 2L; salt restriction diet Cellulitis of LE - erythema (now bilateral) and warmth on exam concerning for cellulitis - Keflex 500mg, PO, BID for 7 days - address LE edema - continue to monitor Bilateral Flank pain - patient does have history of kidney stones - no urinary sxs at present - UA on 06/29 without blood; UA from 07/01 neg for blood - pain likely musculoskeletal in origin; Tylenol ordered PRN; lidoderm patch ordered CAD s/p recent CABG - Continue aspirin, atorvastatin, metoprolol DM - continue current regimen Code status: DNR/DNI DVT ppx: on Xarelto FEN/GI: Heart Healthy, DM2 diet with sodium and fluid restriction Dispo: Psych unit (2) Cellulitis: Supervising Physician Co-Signing Physician Notes Resident Physician Supervision Note: I independently interviewed and examined the patient and verified the schultz h istory and physical, reviewed labs and image studies, discussed the case with the resident Dr. Real and agree with the findings and care plan. Subjective No acute events overnight. LE edema worse today: he reports R LE is as bad as L now. Eating and ambulating well. Propping his legs up often throughout day. Low back pain still present Review of Systems Cardiovascular: + edema (worse from baseline); no chest pain, no dyspnea and no calf pain Genitourinary: no dysuria, no difficulty urinating and no urinary frequency Physical Exam Constitutional: WD/WN, vitals as above Eyes: PERRL, conjunctivae normal, anicteric sclerae ENMT: external ear and nose normal, oropharynx normal Neck: normal visual inspection and trachea midline Respiratory: normal respiratory effort, lungs clear to auscultation Cardiovascular: RRR, no murmur, no edema Heart Sounds: normal S1 and normal S2 Extremities: + pedal edema (tense pitting edema; now symmetric b/l) Gastrointestinal (Abdomen): normal bowel sounds, soft, nontender, no hepatosplenomegaly Skin: +patchy erythema on b/l anterior shins Psychiatric: A+Ox3, euthymic affect Thought Content: + delusions (believes there is begs crawling on his bed and in his GI tract) Results & Data Vital Signs (Past 12 Hours) Vital Signs Temp Pulse Resp BP Pulse Ox 07/03/19 10:22 101 H 118/72 07/03/19 06:50 90 91/80 L 07/03/19 06:48 36.7 C 90 18 113/80 97 Resident Activity Tracking Resident Involvement: Resident Care Provided Care Provided: Adult Hospital Medicine
[2019-07-03] MEDS: DIVALPROEX EXTENDED RELEASE 250 MG TABCR PO SCH (21:15)
[2019-07-03] MEDS: INSULIN GLARGINE SOLOSTAR 100 UNITS/ML 3 ML PEN SQ SCH (21:16)
[2019-07-03] MEDS: risperiDONE 3 MG TABLET PO SCH (21:16)
[2019-07-04 07:43] LABS: BUN Creatinine Ratio 23.9 (10-20); Calcium 8.9 mg/dl (8.5-10.1); Creatinine Clr Calc Pharmacy 52.3 ml/min; Est GFR (African American) 56.4; Est GFR (Non-African American) 48.7
[2019-07-04] MEDS: ISOSORBIDE MONO EXTENDED REL 60 MG TABCR PO SCH ×2 (08:47→10:31)
[2019-07-04] MEDS: FOLIC ACID 1 MG TAB PO SCH ×2 (08:47→10:29)
[2019-07-04] MEDS: ASPIRIN 81 MG ECTAB PO SCH ×2 (08:47→10:29)
[2019-07-04] MEDS: FEXOFENADINE 60 MG TAB PO SCH ×3 (08:47→21:15)
[2019-07-04] MEDS: cephALEXin 500 MG CAP PO SCH ×3 (08:48→21:15)
[2019-07-04] MEDS: ATORVASTATIN 40 MG TAB PO SCH ×2 (08:48→10:29)
[2019-07-04] MEDS: PANTOprazole 40 MG TAB PO SCH ×2 (08:49→10:30)
[2019-07-04] MEDS: FAMOTIDINE 40 MG TABLET PO SCH ×2 (08:49→10:30)
[2019-07-04] MEDS: FUROSEMIDE 40 MG TAB PO SCH ×2 (08:49→11:36)
[2019-07-04] MEDS: POTASSIUM CHLORIDE 20 MEQ TABCR PO SCH ×2 (08:49→10:29)
[2019-07-04] MEDS: risperiDONE 1 MG TABLET PO SCH ×2 (08:49→10:33)
[2019-07-04] MEDS: METOPROLOL TARTRATE 25 MG TAB PO SCH ×3 (08:49→21:26)
[2019-07-04] MEDS: THIAMINE HCL 100 MG TAB PO SCH ×3 (08:50→21:16)
[2019-07-04] MEDS: POLYETHYLENE (MIRALAX) 17 GM PACK PO SCH ×2 (08:50→10:31)
[2019-07-04] MEDS: DOCUSATE SODIUM/SENNA 50/8.6MG TAB PO SCH ×2 (08:50→10:29)
[2019-07-04] MEDS: CYANOCOBALAMIN 500 MCG TABLET (VITAMIN B-12) PO SCH ×2 (08:50→10:29)
[2019-07-04] MEDS: TOPIRAMATE 100 MG TAB PO SCH ×3 (08:50→21:16)
[2019-07-04] MEDS: TRIAMCINOLONE ACET 0.1% OINT 15 GM TUBE EXT SCH ×3 (08:50→21:26)
[2019-07-04 09:55] LABS: Hematocrit (blood only) 35.3 % (42-52); Hemoglobin 11.7 g/dL (14.0-18.0); Mean Corpuscular Hemoglobin 31.7 pg (25-34); Mean Corpuscular Volume 95.7 fL (80-100); Mean Platelet Volume 10.1 fL (7.4-10.4); Platelet Count 193 K/uL (130-400); RDW Coefficient of Variation 13.9 % (11.5-14.5); RDW Standard Deviation 48.5 fL (36.4-46.3); Red Blood Count 3.69 M/uL (4.7-6.1); White Blood Count 6.55 K/uL (4.8-10.8)
[2019-07-04 09:56] LABS: Mean Corpuscular Hgb Conc 33.1 g/dL (32-36)
--- NOTE | 2019-07-04 10:02 | CT Scan Report ---
CT SCAN OF THE BRAIN WITHOUT IV CONTRAST CLINICAL HISTORY: Change in mental status. COMPARISON STUDY: CT of the brain dated 06/17/2019. TECHNIQUE: Unenhanced axial CT scan of the brain is performed from the vertex to the skull base. A do se lowering technique was utilized adhering to the principles of ALARA. CT DOSE: 614.27 mGy.cm FINDINGS: Brain parenchyma: There are age-related involutional changes noting mild subcortical and periventric ular microangiopathic change. There is no hemorrhage, mass effect, or evidence of acute territorial i schemia by CT criteria. Peraza-white matter differentiation is preserved. No extra-axial fluid collecti on is seen. Ventricles, sulci, cisterns: Prominent secondary to involutional change. Intracranial vasculature: There is atherosclerotic calcification of the cavernous carotid and vertebr al arteries. Calvarium: Unremarkable. Sinuses and mastoids: There is evidence of previous paranasal sinus surgery. Trace mucosal thickening is seen in the left maxillary antrum. The remaining visualized paranasal sinuses are clear. The mast oid air cells are well pneumatized. Orbits: The bony orbits are grossly intact. There are bilateral ocular lens implants. IMPRESSION: There is no hemorrhage, mass effect, or evidence of acute territorial ischemia by CT crit tomeka. ACT 112: Negative or not required by law. Electronically signed by: Jonny Zambrano M.D. 07/04/2019 10:01 AM
[2019-07-04 10:11] LABS: Basophils # (auto) 0.01 K/uL (0-0.2); Basophils % (auto) 0.2 %; Eosinophils # (auto) 0.11 K/uL (0-0.5); Eosinophils % (auto) 1.7 %; Immature Granulocytes # (auto) 0.02 K/uL (0.00-0.02); Immature Granulocytes % (auto) 0.3 %; Lymphocytes # (auto) 0.57 K/uL (1.2-3.4); Lymphocytes % (auto) 8.7 %; Monocytes # (auto) 0.53 K/uL (0.11-0.59); Monocytes % (auto) 8.1 %; Neutrophils # (auto) 5.31 K/uL (1.4-6.5)
--- NOTE | 2019-07-04 10:12 | XRay Report ---
XR chest 1V portable CLINICAL HISTORY: change in mental status COMPARISON STUDY: 06/29/2019 FINDINGS: Prior median sternotomy. Diaphragms are smooth. Lungs are clear. IMPRESSION: No acute process. No change from the prior exam. ACT 112: Negative or not required by law. The above report was generated using voice recognition software. It may contain grammatical, syntax or spelling errors. Electronically signed by: Davy Hamm M.D. 07/04/2019 10:11 AM
[2019-07-04] MEDS: INSULIN ASPART 100 UNITS/ML 3 ML PEN SC SCH ×4 (10:42→21:38)
--- NOTE | 2019-07-04 11:51 | Hospitalist Progress Note ---
Date of Service July 04, 2019 Assessment & Plan (1) Lower extremity edema: 74 yo medically complicated male admitted to psychiatric unit with worsening of L lower extremity edema and erythema, found to have superficial venous thromboembolism. Acute change in mental status - patient drowsy but arousable on exam early today; No focal deficit - respirdal dosing changed from 3mg at night to 1mg TID on 07/03 - patient only received 1mg dose on evening of 07/03. - Head CT negative - EKG with sinus tach at 102 bpm and fusion complexes; no acute ST segment changes - troponin undetectable - CBC with normal white count and mild anemia (hgb 11.7) - CXR WNL - blood cultures obtained; follow - valproate level low at 24 on 07/03 - returned to baseline in afternoon Superficial venous thrombosis - Venous duplex 07/01 with following impression: extensive superficial venous thrombosis in the greater saphenous vein extending to within 1.5 cm of the saphenofemoral junction, which is increased from prior. - given proximity to saphenofemoral junction (<5 cm), patient requires anticoagulation - Xarelto 10mg, daily for 45 days. Pharmacy consulted and noted no major contraindications/ interactions with patient's current medication regimen. Case management reports cost of $45 per month; patient confirms this is affordable Lower extremity edema - seems to be dependent from venous stasis, as increase dose in lasix did not result in improvement - albumin mildly low at 3.1 (unlikely to be related to lack of oncotic pressure) - Etiology may be leaky veins vs. increase in hydrostatic pressure (ie obstruction). Last echo from 06/25/2019- normal right ventricle function - creatinine at 1.42, BUN at 32; lasix held today - stockings not permitted on psych unit due to ligature risk; advised to keep legs propped up when sitting. unit looking into getting daytime use of compression stockings approved - we have requested unit increase activity (ie walk on unit treadmill); mild intensity level preferred in setting of recent CABG Chronic CHF - NT-Pro BNP negative on 06/29; CXR from 06/29 without signs of pulmonary edema. While patient is not in florid fluid overload, does have +3 pitting edema in b/l lower extremities - weight increased 2 kg from 07/02. I/Os show no diuresis thus far - daily weights and I/Os ordered - holding lasix for 07/05 in light of elevated kidney function as above - fluid restrict to 2L; salt restriction diet Cellulitis of LE - erythema (now bilateral) and warmth on exam concerning for cellulitis - Keflex 500mg, PO, BID for 7 days - WBC normal - address LE edema - continue to monitor Bilateral Flank pain - patient does have history of kidney stones - no urinary sxs at present - UA on 06/29 without blood; UA from 07/01 neg for blood - pain likely musculoskeletal in origin; Tylenol ordered PRN; lidoderm patch ordered CAD s/p recent CABG - Continue aspirin, atorvastatin, metoprolol DM - continue current regimen Code status: DNR/DNI DVT ppx: on Xarelto FEN/GI: Heart Healthy, DM2 diet with sodium and fluid restriction Dispo: Psych unit (2) Cellulitis: Supervising Physician Co-Signing Physician Notes Resident Physician Supervision Note: I independently interviewed and examined the patient and verified the schultz history and physical, reviewed labs and image studies, discussed the case with the resident Dr. Real and agree with the findings and care plan. seen this am when called by nursing - concerned that usually patient is not so drowsy in the morning and plans to call code purple. no change in meds. received lower dose of risperdal 07/03 o/e - vitals noted mental status - easily arousable and speaks few words and then goes back to sleep. moving all extremities equally. heart- regular rate, rhythm. LE edema bilateral. lungs- CTA, bl abd - no tenderness illicited. lethargy/?acute change in mental status - CT head, ekg, troponin. check cbc. check ammonia level. recent valprotate level normal reviewed bmp results from this am - seems volume contracted - hold lasix. give metoprolol 50mgs (instead of 75mgs daily dose) hold imdur. hold am risperdal reviewed plan with primary team. spent 35 min of critical care time. Subjective No acute events overnight, although nursing staff expresses concern that Mr. Blanchard is "not himself." Typically he wakes up at 7am every morning, but today has been extremely drowsy and had not yet gotten out of bed past 9am. Nurses report history of conversion episodes where Mr. Blanchard becomes totally unresponsive - these episodes have historically resolved within 45 minutes. When asked, Mr. Blanchard reports he is not feeling well but cannot articulate why. On recheck at noon, nurse reports he has returned to baseline Physical Exam Constitutional: WD/WN, vitals as above Eyes: PERRL, conjunctivae normal, anicteric sclerae ENMT: external ear and nose normal, oropharynx normal Neck: normal visual inspection and trachea midline Respiratory: normal respiratory effort, lungs clear to auscultation Cardiovascular: RRR, no murmur, no edema Heart Sounds: normal S1 and normal S2 Extremities: + pedal edema (tense pitting edema; improved on R compared to yesterday) Gastrointestinal (Abdomen): normal bowel sounds, soft, nontender, no hepatosplenomegaly Neurologic: Drowsy but arousable to voice. Pupils are equal. Able to follow commands, but falls asleep throughout encounter Psychiatric: A+Ox3, euthymic affect Thought Content: + delusions (believes there is begs crawling on his bed and in his GI tract) Results & Data Vital Signs (Past 12 Hours) Vital Signs Temp Pulse Pulse Resp BP BP 07/04/19 08:50 108 H 16 111/75 07/04/19 06:24 36.8 C 112 H 18 121/74 Resident Activity Tracking Resident Involvement: Resident Care Provided Care Provided: Adult Hospital Medicine
--- NOTE | 2019-07-04 12:12 | Electrocardiogram Report ---
Test Reason : Blood Pressure : / mmHG Vent. 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 lead placement vs. LVH Abnormal ECG When compared with ECG of 29-JUN-2019 11:21, Fusion complexes are now Present Premature atrial complexes are no longer Present Confirmed by Crispin Mejia ([id number]) on 07/04/2019 12:12:06 PM Referred By: REFERRED SELF Confirmed By:Crispin Mejia
[2019-07-04] MEDS: RIVAROXABAN 10 MG TABLET PO SCH (13:30)
--- NOTE | 2019-07-04 15:19 | Psychiatric Progress Note ---
Date of Service July 04, 2019 Impression / Recommendations Impression 74-year-old male with a history of coronary artery disease status post CABG in 05/[address] [facility] who presented with delusional disorder. He was hospitalized on the medical service first for CHF, then for multiple medical problems, and was seen by the psychiatry consult service on both hospitalizations. He has also been having episodes of unresponsiveness best described as conversion reactions. His family reports that he has been increasingly focused on delusions since February 2019, perseverating on them to the point that he was unable to function, and has been threatening and ag gressive to the point that his no longer feels safe at home with him. He had been prescribed citalopram for unclear reasons, and it has now been discontinued as he had some manic symptoms. He has been started on risperidone which has been titrated to 6 mg daily in divided doses, and Depakote for irritability, mood lability, and aggression. He has made threats to both staff and his while here, and at one point became agitated to the extent that he had to be given IM medications and be placed on an involuntary commitment on 06/27/2019. He is on an 303 involuntary commitment as of 07/02/2019. He initially stated unwillingness to return home to live with his , and wanted to go to supportive living in [place], but we have confirmed this is not an option, and he is now considering returning home. He has continued to respond favorably to treatment. We had continued risperidone 1 mg 3 times daily with risperidone 3 mg at bedtime. This seems to have been effective in stabilizing the patient's mood and treating his emotional lability. However, there is also some indication that he may be overly sedated at this dose, and a decision was made to reduce the dose of risperidone to 0.5 mg twice a day and 3 mg at bedtime. We are also in the process of titrating the patient's Depakote, within the context of a recent subtherapeutic Depakote level. In addition, we are continuing to develop an adequate aftercare plan in order to assure a sustained reintegration into the community. (1) Delusional disorder, somatic type: 06/25 -continue risperidone 1 mg 3 times daily. FLP from 06/06/2019 was within normal limits. Fasting glucose 158. -Extensive medical work-up of psychosis and neurological symptoms including: Head CT, brain MRI, EEG, prolactin, PTH, cortisol, RAÚL, RPR, Lyme IgG and IgM, HIV, hepatitis C, Neurology and orthopedic consultations. -Differential includes mood disorder (has displayed manic symptoms) and front otemporal dementia. -Patient unable to reality test. Continue to offer support and strategies for distress tolerance. -Obtain collateral information and involve family as able. -Encourage patient to attend to participate in groups and therapy. Work on healthy coping skills and discharge safety plan. 06/26 - Continue risperidone and consolidate to 1mg qam and 2mg hs (which may also help with sleep). - Patient very poorly responsive to attempts to reframe his concerns as being influenced by psychological distress, and absolutely unable to reality test. - Recommend family meeting with his and daughter once he is able to tolerate it. is reportedly currently medically ill and quite stressed, and is he has been threatening her, we will postpone this for now. - Refer for outpatient case management services and explore housing options, as he is requesting supportive living referral. 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 It is recognized that this disorder, like all delusional disorders, tend to respond poorly to treatment. In this case, it will be important to avoid persistent reality testing, and the treatment team and I have discussed the fact that while we can and should provide reality testing when the patient escalates, we should not subsequently engage in any form of what might be considered a debate or attempt to convince. 06/28 - Lead level is low (2). - Now on a 302 involuntary commitment after episode of agitation and threatening staff yesterday, related to his delusions. - Delusions continue, risperidone just increased to total of 5mg daily in divided dosing. Start trial of low-dose Depakote for irritability/anger outbursts/agitation -250 mg at bedtime. - Family meeting canceled due to agitation. Will reschedule once he is in better behavioral control. - Continue private room due to agitation and psychosis. 06/29 - Continue private room, as patient continues to have episodes of agitation, and has been making threats towards staff. He is unpredictable and does not respond well to attempts to redirect him. - Check heavy metal screen given his reports of past toxin exposure. - Increase risperidone to 1 mg 3 times daily and 3 mg at bedtime to target ongoing delusions. EKG today showed QTC 414. 06/30 - Patient remains delusional and unable to reality test. He continues to threaten harm to staff, and called his and threatened her. There are still guns in the home, although is working on getting them removed. - File for 303 involuntary commitment due to ongoing psychosis with threats to harm others. - Family meeting scheduled with his daughter and this afternoon. - SW to follow up on BCM referral. 07/01 - Continue current medication regimen presently - patient appears more slowed with mild improvement in insight demonstrated today. He continues to demonstrate delusional thinking, but is far less preoccupied with the presence of bugs during assessment - 303 hearing is scheduled for 07/02 - Pt will require coordination of outpatient services, recommendation is for a BCM referral 07/02 -303 commitment granted. -Refer for BCM and outpatient psychiatric care. -Willing to work on relationship with and attempt to reconcile so that he can return to home at discharge. They will need a family meeting with the social psychologist. 07/03 - Continue current medication regimen - Valproic acid ordered - subtherapeutic at 24mcg/mL - behavior is more appropriate, less agitated - Tolerated visit from last evening. Continue visits and schedule in- person meeting when appropriate - Will need to continue discussion regarding discharge plans 07/04 -The patient continues to episodically mention his belief that his skin is infected by parasites. However, he is able to hear us when we explained to him that his symptoms of which she complains are related to a combination of dry skin and pruritus. He generally does not bring up the issue of parasites, and when we do explained that we believe that the best explanation is something other than "bugs" he responds by shaking his head no, but otherwise does not object. (2) Intermittent explosive disorder: 06/29 - patient has a long history of anger problems, with rapid and unpredictable mood changes, and aggressive and threatening behavior. He does not have sufficient mood symptoms to support a bipolar diagnosis, and IED may be the most appropriate diagnosis. He was started on Depakote XR 250 mg at bedtime yesterday, and we will titrate as tolerated. 07/02 -order Depakote trough level for tomorrow a.m. Patient has been in better behavioral control. Continue to assist him in identifying coping strategies 07/03 - Valproic acid subtherapeutic at 24mcg/mL - behavior remains improved, less agitated 07/04 -The patient's emotional lability continues to be much better. On several occasions he has begun to escalate, but is able to either catch himself or be easily redirected. His tendency seems to be too make a report that his exaggerated, but reality based, and then with each successive retelling (within the same conversation) the report becomes progressively more expansive. (3) Conversion disorder: 06/25 - address psychosocial stressors, identify healthy coping skills, and provide reassurance and support. - Discussed with Dr. Aparicio, and patient has future unresponsive events, recommended vital signs, blood glucose, and if parameters are normal, contacting the hospitalist to evaluate the patient. - He was seen by orthopedics today, who recommended physical therapy for global weakness. PT consult ordered. 06/27 - The patient tells us that he feels that he is having transient ischemic attacks, and refers to his periods of paralysis and confusion by that name. - In addition to a conversion disorder, it is possible that the patient is experiencing prolonged adverse effects associated with general anesthesia or, as the patient suggests, brief transient ischemic attacks, although as described, these episodes are not typically consistent with TIAs. 07/03 - Additional history obtained, suggesting patient was diagnosed with conversion disorder in 2006; had followed routinely with neurology on an outpatient basis - Recommending continued neurologic follow-up after discharge - Recommending long-term psychiatric intervention - meeting with consistent therapist and psychiatric prescriber to appropriately manage contributing factors - No mention of continued events of numbness or unresponsiveness in several days 07/04 -It is occurred to us that the patient's report of 2 episodes of enuresis, combined with his assertion that "this is never happened to me before!" may be suggestive of conversion symptoms. However, the timing of these episodes, and the fact that they are combined with what appears to be medication induced sedation when appear to be a better explanation. His medications have been adjusted accordingly. (4) Eczematous dermatitis: 06/26 - reviewed dermatology note from 06/04/[address] Mac; patient had last been seen in 03/2019, reported multiple episodes of itching, burning, irritated areas of skin, which had previously responded to IM Kenalog. He received another injection of IM Kenalog, was diagnosed with eczematous dermatitis, and appropriate bathing practices were reviewed. Daily moisturization with Cetaphil cream was recommended, and avoidance of applying anything else to the skin. -Patient has been receiving triamcinolone topically once daily here. Will add Eucerin cream as skin appears dry and irritated. No signs of infection or parasites, although he has multiple areas of excoriation on his lower and upper extremities, face, and neck. 06/27 - As previously noted, the patient tends to draw our attention to patches of irritated skin and eczematous dermatitis, and refer to the associated skin "flaking" as constituting worms or "bugs" that he believes is crawling from his skin. He also experiences tingling and paresthesias that also seem to be contributing to his belief that he is contaminated with parasites. This is not atypical in cases of delusional parasitosis. - Treating the patient's current condition is important within the context of his associated psychiatric complaints. 07/01 - Pt initiated on Keflex 500mg BID for 7 days (5) Fracture of left distal radius: 06/26 - appreciate orthopedic recommendations; cast remains in place, but patient asking to have it removed. 06/29 - cast removed, continue brace. Laboratory work-up for poor healing per Ortho: Iron, TIBC, transferrin all within normal limits. LFTs show alkaline phosphatase 127 (was 96 on admission). Total protein normal, albumin 3.1. Alpha-1 antitrypsin, ceruloplasmin, and RAÚL screen pending. Cholesterol 90. 06/30 - PT consult requested but they have not seen him yet. -Orthopedics is recommending outpatient follow-up in 4 weeks. (6) Hypertension: Continue furosemide 20 mg daily and metoprolol 75 mg twice daily. C ontinue home dose of Imdur. -Follow-up with paper pattern folder as an outpatient. Her hospitalist discharge summary, he was instructed to follow-up at the [facility] within a week of discharge. (7) Alcohol abuse: History of alcohol abuse, no significant use in the past 3 years. 07/04/19 -The patient tells me today that his has been a sober support for him for many years and he indicates that although she sometimes annoys him with her insistence that he not use alcohol, he also notes that he is grateful to her for her help. (8) Vitamin B12 deficiency: Vitamin B12 from 06/15/2019 was 219. Folate 4.16. Vitamin B 1 6. Continue vitamin B12 1000 mcg daily, folic acid 1 mg daily, and thiamine 200 mg twice daily. (9) Diabetes mellitus, type 2: 06/25 -continue heart healthy, carb consistent diabetic diet, and insulin regimen per diabetic pharmacist. 07/04 -Patient acknowledges that he has difficulty making healthy choices consistent with his diabetic diet. At the same time, he was also able to tell us which foods are not consistent with his diet and is able to enumerate the complications associated with diabetes. (10) Stage III chronic kidney disease: 06/19 -creatinine returned to baseline as of 06/24/2019 (1.18); was as high as 1.65 on 06/23/2019. 07/03 - BMP rechecked today: Creatinine remains wnl at 1.25; however BUN remains elevated increased from 26 (07/02/2019) to 32 (07/03/2019) (11) Code status needs review: Patient was DNR/DNI on the medical floor. He voices that he continues to want this. He expresses understanding of this, despite his psychosis. It was documented during other admissions that he was DNR/DNI. He has not been suicidal. (12) Coronary artery disease: 06/29 -reporting chest pain today, difficult to tell how much of his reported symptoms are influenced by psychosis -ordered EKG, vital sign recheck, and blood glucose. -Consulted the hospitalist service, and spoke with Dr. Cunningham. Appreciate assistance and recommendations. 06/30 - Appreciate recommendations from Drs. Fajardo and Pili: Monitor weight, and if trending up, contact them for follow-up. 07/01 - Lasix increased to 40mg daily; I&O's ordered along with daily weights - Pt initiated on Lovenox today, with recommendation to transition to Xarelto 10mg daily for 45 days due to superficial venous thrombosis with evidence of increased blockage - Appreciate recommendations and continued input from hospitalist team 07/02 - Care coordinated with Drs. Frey, Addie, and Bryant. Appreciate their assistance in managing his multiple medical conditions. Xarelto co-pays $45 a month, which patient indicated is affordable. 1/16 - Appreciate ongoing recommendations from hospitalist team - Continue daily I&O's and weights - Additional recommendations per hospitalist team as indicated (13) Cognitive disorder: 06/30 - cognitively impaired, with a 15/30 on the MoCA today. Unclear if he has been diagnosed with a neurocognitive disorder in the past. 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 He also has a history of alcohol abuse which could be contributing to cognitive dysfunction. We will continue to monitor as his psychosis hopefully improves. -Prior to discharge, we will need to discuss recommendations regarding not driving until he is fully stabilized and is cleared by his physician. He is not yet ready to tolerate this discussion. 07/01 - Will need to discuss driving recommendations at time of discharge, given ongoing psychiatric symptoms and cognitive impairment as above - He did indicate that his paper pattern folder had already advised him not to drive for 10-weeks after his operation on 05/23/2019 - therefore already aware he is not to be driving for a period of time - Will need to follow-up with a more thorough conversation when it seems patient can better tolerate this 07/04 -Today, the patient is able to specifically recall her most recent previous encounterseach of which occurred 7 days ago. Within this context, he recalls some of the things we talked about. He is able to correctly identify his medications and the purposes of each. Risk Factors Assessment Male: Yes : Yes Do You Have Access To A Gun?: Yes (Multiple guns in the home) Health Problems: Yes Mental Health Diagnoses: Yes Substance Use Disorders: Yes Previous Attempt: No Previous Psychiatric Hospitalization: Yes Hopelessness: No Smoker: No Protective Factors Assessment Muslim Beliefs: No : Yes (But states he is going to file for divorce) Responsible for Young Children: No Employed: No Stable Relationships: No Supportive Family: Yes Interval History Identifying Information EMANUEL GRANT is a 74-year-old M who currently lives in [place] with his , has a history of delusional parasitosis and conversion disorder, and was admitted on 06/25/19 13:47 on a 201 voluntary commitment for delusional parasitosis. He was initially admitted to the hospitalist service 06/14/2019 - 06/21/2019, was transferred to the [facility], but then transferred back to the hospitalist service 06/23/2019 after an episode of unresponsiveness. He had a negative medical work-up and was been medically cleared and transferred back to the behavioral health unit 06/25/2019. Chief Complaint "I'm doing better". Review of Systems Sleep Information Total Hours of Sleep: 3 Sleep Comments: pt incontinent of urine this am and required his bed linens to be changed. pt pleasant and cooperative. pt awoke @0430 and thereafter. pt on q-15 minute checks Meal Information Percent Meal Consumed - Breakfast: 100 Percent Meal Consumed - Lunch: 100 Percent Meal Consumed - Dinner: 100 Subjective Subjective Patient was seen & assessed and interval progress reviewed with treatment team. I met with the patient individually in order to assess his current mental status, evaluate his response to treatment, coordinate any changes in the patient's treatment regimen with the patient, and address issues, concerns and questions that may arise. The patient spontaneously recalled the fact that he and I had met last week for the first time, and on that day his behavior had been such that a "code wilkinson" was called. He told me that he is embarrassed by the memory of his behavior on the day in question, and reiterates that he believed that a nurse was "calling [him] a liar" within the context of his report of having parasitosis. The patient embellish the situation and told me that "the whole time" the nurse had stood in front of him and repeatedly shouted, "you are a damn liar!" He also claimed that the chief security and safety officer in attendance had shouted at the nurse, "go back and your hole!" I reminded the patient that I had been present for most of the entire episode and my memory was that the nursing question had not been present and had not been shouting at them. He seemed to accept that and was willing to agree with me when I said "it is in the past now. Lets look at the future." He quickly was able to redirect his attention to his level of singing, and at my suggestion sang several stances of the song, "How Great Thou Art" in a beautiful, base voice. When I mention to the patient that the staff had enjoyed meeting his and had had a favorable impression however, the patient replied, "Yes, she is a good woman. She has put up with me all of these years!" Patient notes that he has been incontinent of urine on 2 recent occasion, and notes that this had not previously been a problem. Staff also note that the patient has appeared somewhat overly sedated. I discussed with the patient the option of lowering his dose of risperidone, but also advised him that we would recommend an increase in his dose of Depakote because his most recent level was in the subtherapeutic range. The patient indicated understanding and agreement. Physical Exam Psychiatric Orientation: alert, oriented x 3 and cooperative Apperance: appropriately dressed and appropriately groomed Eye Contact: good eye contact Motor Behavior: steady gait and station Speech: normal rate/rhythm/volume of speech Affect: euthymic affect "Good mood. I like it here." Thought Process: goal directed thought process Thought Content: reality based without delusions Patient continues to voice the belief that various individuals are "basically evil" and "like to stir up a lot of trouble." However, while seeming to filter much of his life experiences through a somewhat paranoid lens, his current presentation is not consistent with persecutory delusions. Suicidal Thoughts: denies suicidal thoughts Homicidal Thoughts: denies homicidal thoughts Hallucinations: no auditory hallucinations Cognition: recent memory grossly intact, remote memory grossly intact, attention grossly intact and language grossly intact Estimated Intelligence: average estimated intelligence Insight: + limited insight Judgement: + fair judgement Vital Signs (Past 24 Hours) Last Vital Signs Temp 36.8 C 07/04/19 06:24 Pulse 108 H 07/04/19 08:50 Resp 16 07/04/19 08:50 BP 111/75 07/04/19 08:50 Pulse Ox 97 07/03/19 06:48 Results & Data Laboratory Results Laboratory Results - last 24 hr 07/03/19 07/03/19 07/04/19 17:32 20:59 03:45 WBC RBC Hgb Hct MCV MCH MCHC RDW Std Deviation RDW Coeff of Gissel Plt Count MPV Immature Gran % (Auto) Neut % (Auto) Lymph % (Auto) [place] % (Auto) Eos % (Auto) Baso % (Auto) Immature Gran # (Auto) Neut # (Auto) Lymph # (Auto) [place] # (Auto) Eos # (Auto) Baso # (Auto) Sodium Potassium Chloride Carbon Dioxide Anion Gap BUN Creatinine Est Cr Clr Drug Dosing Est GFR ( Amer) Est GFR (Non-Af Amer) BUN/Creatinine Ratio Glucose POC Glucose 118 H 135 H 184 H Calcium Ammonia Troponin I 07/04/19 07/04/19 07/04/19 07:00 08:28 09:44 WBC 6.55 RBC 3.69 L Hgb 11.7 L Hct 35.3 L MCV 95.7 MCH 31.7 MCHC 33.1 RDW Std Deviation 48.5 H RDW Coeff of Gissel 13.9 Plt Count 193 MPV 10.1 Immature Gran % (Auto) 0.3 Neut % (Auto) 81.0 Lymph % (Auto) 8.7 [place] % (Auto) 8.1 Eos % (Auto) 1.7 Baso % (Auto) 0.2 Immature Gran # (Auto) 0.02 Neut # (Auto) 5.31 Lymph # (Auto) 0.57 L [place] # (Auto) 0.53 Eos # (Auto) 0.11 Baso # (Auto) 0.01 Sodium 139 Potassium 4.0 Chloride 109 H Carbon Dioxide 23 Anion Gap 6.0 BUN 34 H Creatinine 1.42 H Est Cr Clr Drug Dosing 52.3 Est GFR ( Amer) 56.4 Est GFR (Non-Af Amer) 48.7 BUN/Creatinine Ratio 23.9 H Glucose 162 H POC Glucose 151 H Calcium 8.9 Ammonia Troponin I 07/04/19 07/04/19 07/04/19 09:44 09:44 10:25 WBC RBC Hgb Hct MCV MCH MCHC RDW Std Deviation RDW Coeff of Gissel Plt Count MPV Immature Gran % (Auto) Neut % (Auto) Lymph % (Auto) [place] % (Auto) Eos % (Auto) Baso % (Auto) Immature Gran # (Auto) Neut # (Auto) Lymph # (Auto) [place] # (Auto) Eos # (Auto) Baso # (Auto) Sodium Potassium Chloride Carbon Dioxide Anion Gap BUN Creatinine Est Cr Clr Drug Dosing Est GFR ( Amer) Est GFR (Non-Af Amer) BUN/Creatinine Ratio Glucose POC Glucose 137 H Calcium Ammonia 21.9 Troponin I < 0.015 07/04/19 13:17 WBC RBC Hgb Hct MCV MCH MCHC RDW Std Deviation RDW Coeff of Gissel Plt Count MPV Immature Gran % (Auto) Neut % (Auto) Lymph % (Auto) [place] % (Auto) Eos % (Auto) Baso % (Auto) Immature Gran # (Auto) Neut # (Auto) Lymph # (Auto) [place] # (Auto) Eos # (Auto) Baso # (Auto) Sodium Potassium Chloride Carbon Dioxide Anion Gap BUN Creatinine Est Cr Clr Drug Dosing Est GFR ( Amer) Est GFR (Non-Af Amer) BUN/Creatinine Ratio Glucose POC Glucose 210 H Calcium Ammonia Troponin I Current Inpatient Medications Current Inpatient Medications: Current Inpatient Medications Acetaminophen (Tylenol) 650 mg PO Q4H PRN PRN Reason: Headache or Minor Fever Stop: 07/25/19 14:02 Last Admin: 07/03/19 10:20 Dose: 650 mg Documented by: Al Hydrox/Mg Hydrox/Simethicone (Maalox) 30 ml PO Q4H PRN PRN Reason: GI Upset Stop: 07/25/19 14:02 Aspirin (Ecotrin Ectab) 81 mg PO DAILY [facility] Stop: 07/26/19 08:59 Last Admin: 07/04/19 10:29 Dose: 81 mg Documented by: Atorvastatin Calcium ([facility]itor) [facility] [place] Stop: 07/26/19 08:59 Last Admin: 07/04/19 10:29 Dose: 80 mg Documented by: Bismuth Subsalicylate (Kaopectate) 15 ml PO PRN PRN PRN Reason: Loose Stool Stop: 07/25/19 14:02 Cephalexin HCl (Keflex) 500 mg PO BID [facility] Stop: 07/10/19 22:14 Last Admin: 07/04/19 10:30 Dose: 500 mg Documented by: Cyanocobalamin (Vitamin B-12) 1,000 mcg PO DAILY [facility] Stop: 07/26/19 08:59 Last Admin: 07/04/19 10:29 Dose: 1,000 mcg Documented by: Dextrose (Dextrose 50%) 25 - 50 ml IV UD PRN; Protocol PRN Reason: Hypoglycemia Protocol Stop: 07/25/19 14:44 Divalproex Sodium (Depakote Extended Release) 500 mg PO HS [facility] Stop: 08/03/19 21:59 Famotidine (Pepcid) 40 mg PO QAM [facility] Stop: 07/26/19 08:59 Last Admin: 07/04/19 10:30 Dose: 40 mg Documented by: Fexofenadine HCl (Nikky) 60 mg PO BID [facility] Stop: 07/25/19 20:59 Last Admin: 07/04/19 10:27 Dose: 60 mg Documented by: Folic Acid (Folvite) 1 mg PO [facility] Stop: 07/26/19 08:59 Last Admin: 07/04/19 10:29 Dose: 1 mg Documented by: Furosemide (Lasix) 20 mg PO [facility] Stop: 07/26/19 08:59 Last Admin: 07/01/19 07:39 Dose: 20 mg Documented by: Furosemide (Lasix) 40 mg PO [facility] Stop: 08/01/19 08:59 Last Admin: 07/04/19 11:36 Dose: Not Given Documented by: Glucagon (Glucagen) 1 mg IM UD PRN; Protocol PRN Reason: Hypoglycemia Protocol Stop: 07/25/19 14:44 Glucose (Glucose 40%) 15 - 30 gm PO UD PRN; Protocol PRN Reason: Hypoglycemia Protocol Stop: 07/25/19 14:44 Glucose (Dex4 Glucose) 4 - 8 tabs PO UD PRN; Protocol PRN Reason: Hypoglycemia Protocol Stop: 07/25/19 14:44 Haloperidol (Haldol) 2.5 mg PO Q4H PRN PRN Reason: Agitation Stop: 07/27/19 14:46 Haloperidol Lactate (Haldol) 5 mg IM Q6H PRN PRN Reason: Agitation Stop: 07/27/19 14:44 Hydroxyzine HCl (Vistaril) 50 mg PO HSZ PRN PRN Reason: Insomnia Stop: 07/25/19 14:02 Hydroxyzine HCl (Vistaril) 25 mg PO Q4H PRN PRN Reason: Anxiety Stop: 07/25/19 14:02 Last Admin: 07/01/19 05:24 Dose: 25 mg Documented by: Insulin Aspart (Novolog Flexpen) 0 units SC [facility] Stop: 07/25/19 17:14 Last Admin: 07/04/19 13:27 Dose: 13 units Documented by: Insulin Glargine (Lantus Solostar Pen) 40 units SQ [facility]; Protocol Stop: 08/02/19 21:59 Last Admin: 07/03/19 21:16 Dose: 40 units Documented by: Isosorbide Mononitrate (Imdur Extended Rel) 60 mg PO [facility] Stop: 07/26/19 08:59 Last Admin: 07/04/19 10:31 Dose: Not Given Documented by: Lidocaine (Lidoderm 5%) 1 patch TD DAILY PRN PRN Reason: pain Stop: 08/01/19 18:13 Last Admin: 07/03/19 10:19 Dose: 1 patch Documented by: Lorazepam (Ativan) 1 mg IM Q6H PRN PRN Reason: Agitation Stop: 07/27/19 14:59 Lorazepam (Ativan) 1 mg PO Q6H PRN PRN Reason: Agitation Stop: 07/27/19 14:47 Magnesium Hydroxide (Milk Of Magnesia) 30 ml PO DAILY PRN PRN Reason: Constipation Stop: 07/25/19 14:02 Metoprolol Tartrate (Lopressor) 75 mg PO BID [facility] Stop: 07/25/19 20:59 Last Admin: 07/04/19 10:27 Dose: 50 mg Documented by: Miscellaneous (Carbohydrates For Hypoglycemia) 15 - 30 gm PO UD PRN PRN Reason: Hypoglycemia Treatment Stop: 07/25/19 14:44 Miscellaneous (Remove Lidoderm Patch) 1 ea N/A DAILY@2100 [facility] Stop: 08/02/19 20:59 Last Admin: 07/03/19 21:29 Dose: 1 ea Documented by: Miscellaneous Information (Consult Glycemic Management Pharmacy) 1 ea N/A UD PRN PRN Reason: Consult Stop: 07/26/19 09:10 Multi-Ingredient Cream (Hydrocerin) 1 appln EXT Q8H PRN PRN Reason: dry skin Stop: 07/26/19 10:33 Nitroglycerin (Nitrostat) 0.4 mg SL Q5M PRN PRN Reason: Chest Pain Stop: 07/25/19 14:15 Pantoprazole Sodium (Protonix) 40 mg PO DAILY [facility] Stop: 07/26/19 08:59 Last Admin: 07/04/19 10:30 Dose: 40 mg Documented by: Polyethylene Glycol (Miralax Powder Packet) 17 gm PO QAM [facility] Stop: 07/26/19 08:59 Last Admin: 07/04/19 10:31 Dose: 17 gm Documented by: Potassium Chloride (Klor-Con M20) 20 meq PO QAM [facility] Stop: 07/26/19 08:59 Last Admin: 07/04/19 10:29 Dose: 20 meq Documented by: Risperidone (Risperdal) 3 mg PO HS [facility] Stop: 07/27/19 21:59 Last Admin: 07/03/19 21:16 Dose: 3 mg Documented by: Risperidone (Risperdal) 0.5 mg PO [id number] [facility] Stop: 08/04/19 06:59 Rivaroxaban (Xarelto) 10 mg PO DAILY@1300 [facility] Stop: 08/01/19 12:59 Last Admin: 07/04/19 13:30 Dose: 10 mg Documented by: Senna/Docusate Sodium (Senokot S) 1 tab PO QAM [facility] Stop: 07/26/19 08:59 Last Admin: 07/04/19 10:29 Dose: 1 tab Documented by: Sodium Chloride ([place] Nasal) 1 - 2 sprays NA PRN PRN PRN Reason: Nasal Dryness/Congestion Stop: 07/25/19 14:02 Thiamine HCl (Vitamin B-1) 200 mg PO BID [facility] Stop: 07/25/19 20:59 Last Admin: 07/04/19 10:26 Dose: 200 mg Documented by: Topiramate (Topamax) 100 mg PO BID [facility] Stop: 07/25/19 20:59 Last Admin: 07/04/19 10:30 Dose: 100 mg Documented by: Tramadol HCl (Ultram) 50 mg PO Q6H PRN PRN Reason: pain Stop: 07/25/19 14:15 Last Admin: 07/02/19 10:37 Dose: 50 mg Documented by: Triamcinolone Acetonide (Kenalog 0.1%) 1 appln EXT TID [facility] Stop: 07/25/19 20:59 Last Admin: 07/04/19 13:31 Dose: Not Given Documented by: Mental Health & Subst Abuse Tx Therapist Name of Therapist: denies Alumni Coordinator Name of Alumni Coordinator: [employer] - Pam Fuentes Phone Number for Alumni Coordinator: [phone] Date of Appointment with Alumni Coordinator: 07/08/19 Time of Appointment with Alumni Coordinator: 10:30 a.m. Case Management Appointment Comment: Will meet you at your home Post Discharge Appointments Primary Care Physician Name Of Family Doctor: DOUG [facility] Date of Appointment with PCP: 07/08/19 Time of Appointment with PCP: 2:30 pm Provider Appointment Comment: [id number] [place] [address] Home Health Services Home Health Services:: director of food and beverage services, Physical Therapy and Occupational Therapy Home Health Agency: [facility] Home Health Neurologist Name of Neurologist: DOUG Bañuelos Neurologist's Date of Appointment with Neurologist: 07/31/19 Time of Appointment with Neurologist: 9:00 a.m. Neurology Appointment Comment: [address] [facility], [address], [place] [address] Contact Information Discharge Discharge Address: [address] [place] [id number] (1) Diabetes mellitus, type 2 Diabetes mellitus complication detail: with polyneuropathy Diabetes mellitus complication status: with neurologic complications Diabetes mellitus fdc insulin use: with rn long term care use Qualified Code(s): E11.42 - Type 2 diabetes mellitus with diabetic polyneuropathy; Z79.4 - FPC (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
[2019-07-04] MEDS: DIVALPROEX EXTENDED RELEASE 500 MG TAB PO SCH (21:18)
[2019-07-04] MEDS: risperiDONE 3 MG TABLET PO SCH (21:19)
[2019-07-04] MEDS: INSULIN GLARGINE SOLOSTAR 100 UNITS/ML 3 ML PEN SQ SCH (21:42)
[2019-07-04] MEDS: ACETAMINOPHEN 325 MG TAB PO PRN (21:58)
[2019-07-05] MEDS: risperiDONE 0.5 MG TABLET PO SCH ×2 (06:33→13:24)
--- NOTE | 2019-07-05 09:10 | Hospitalist Progress Note ---
Date of Service July 05, 2019 Assessment & Plan (1) Lower extremity edema: 74 yo medically complicated male admitted to psychiatric unit on involuntary admission (303) with L lower extremity edema and erythema, found to have superficial venous thromboembolism. Now improved from yesterday with regard to mental status and edema. Lower extremity edema - seems to be likely due to venous stasis as swelling is improving with compression stockings and was not made better by increases in Lasix dose. - Echo from 06/25/2019 - normal right ventricular function. - creatinine yesterday 1.42, BUN at 32; continue to hold lasix until repeat BMP and mag level tomorrow AM, then resume Lasix at home dose of 20mg PO daily. - continued mild activity and compression stockings. Acute change in mental status: - Resolved. ? sec to oversedation - patient drowsy but arousable on exam yesterday; returned to baseline in afternoon. - risperidone dosing decreased from 6mg daily to 4mg. - Head CT negative. - EKG with sinus tach at 102 bpm and fusion complexes; no acute ST segment changes . - troponin undetectable. - CBC with normal white count and mild anemia (hgb 11.7). - CXR WNL. - blood cultures obtained and will follow. Possible cellulitis of lower extremities continuing Keflex for total of 5 days. - valproate level low at 24 on 07/03; repeat 07/07. Superficial venous thrombosis: - Venous duplex 07/01 with following impression: extensive superficial venous thrombosis in the greater saphenous vein extending to within 1.5 cm of the saphenofemoral junction, which is increased from prior. - given proximity to saphenofemoral junction (<5 cm), patient requires anticoagulation. - Xarelto 10mg daily for 45 days. Pharmacy consulted and noted no major contraindications/ interactions with patient's current medication regimen. Case management reports cost of $45 per month; patient confirms this is affordable. Chronic CHF: - daily weights and I/Os ordered - holding lasix until 07/06; fluid restrict to 2L; salt restriction diet. - resume metoprolol at home dose of 75mg BID given tachycardia. Continue isosorbide mononitrate. Cellulitis of LE: - not convinced pt's bilateral redness and swelling is due to cellulitis. More likely due to venous stasis and profound swelling over his hospital course. - However cannot rule out cellulitis, will continue Keflex 500mg PO BID q5 days; reassess tomorrow for improvement. - WBC normal yesterday. Bilateral Flank pain - patient does have history of kidney stones, no urinary sxs and pt's back pain alleviated with lido patch. - UA on 06/29 without blood; UA from 07/01 neg for blood. - pain likely musculoskeletal in origin; continue tylenol and lidocaine patches. CAD s/p recent CABG - Continue aspirin, atorvastatin, metoprolol now at 75mg BID. DM - continue current regimen. Code status: DNR/DNI DVT ppx: on Xarelto FEN/GI: Heart Healthy, DM2 diet with sodium and fluid restriction Dispo: Psych unit, for home 07/07/2019 (2) Cellulitis: Supervising Physician Co-Signing Physician Notes Resident Physician Supervision Note: I independently interviewed and examined the patient and verified the schultz history and physical, reviewed labs and image studies, discussed the case with the resident Dr. Isaac and agree with the findings and care plan. Subjective No acute events overnight. Nursing reports pt is back to baseline, conversational, friendly. Pt himself is feeling more well today; looking forward to going home on Sunday. No shortness of breath or chest pain. Feels much better after starting the compression stockings this morning. Feels that his legs are skinnier now than they were yesterday and skinnier than they were earlier this AM. Pt afebrile, normotensive overnight. Slightly tachycardic to low 100s; yesterday received toal dose of 125mg metoprolol (home dose is 150mg). Review of Systems Constitutional: no fever, no chills and no malaise Respiratory: no cough and no dyspnea Cardiovascular: + edema (feels it is better since compression stockings added, "they are a miracle".); no chest pain and no palpitations Gastrointestinal: no abdominal pain, no constipation and no diarrhea/loose stools Physical Exam Constitutional: WD/WN, vitals as above Respiratory: normal respiratory effort, lungs clear to auscultation Cardiovascular: Rate/Rhythm: regular rate and regular rhythm Heart Sounds: no murmur Extremities: + edema (1-2+ pitting edema, exam performed w/ Dr. Frey and improved from yesterday) Gastrointestinal (Abdomen): normal bowel sounds, soft, nontender, no hepatosplenomegaly Skin: venous stasis changes to bilateral lower extremities. Some weeping from legs into compression stockings. No increase in warmth. No purulent drainage. Psychiatric: A+Ox3, euthymic affect Results & Data Vital Signs (Past 12 Hours) Vital Signs Temp Pulse Resp BP 07/05/19 06:35 99 H 104/73 07/05/19 06:34 36.6 C 101 H 20 113/78 07/04/19 22:11 36.5 C 105 H 18 136/81 Resident Activity Tracking Resident Involvement: Resident Care Provided Care Provided: Adult Hospital Medicine
[2019-07-05] MEDS: FOLIC ACID 1 MG TAB PO SCH (09:15)
[2019-07-05] MEDS: ASPIRIN 81 MG ECTAB PO SCH (09:15)
[2019-07-05] MEDS: FEXOFENADINE 60 MG TAB PO SCH ×2 (09:15→20:54)
[2019-07-05] MEDS: TRIAMCINOLONE ACET 0.1% OINT 15 GM TUBE EXT SCH ×3 (09:16→20:59)
[2019-07-05] MEDS: ISOSORBIDE MONO EXTENDED REL 60 MG TABCR PO SCH (09:16)
[2019-07-05] MEDS: cephALEXin 500 MG CAP PO SCH ×2 (09:16→20:54)
[2019-07-05] MEDS: ATORVASTATIN 40 MG TAB PO SCH (09:17)
[2019-07-05] MEDS: METOPROLOL TARTRATE 25 MG TAB PO SCH ×2 (09:17→20:53)
[2019-07-05] MEDS: FAMOTIDINE 40 MG TABLET PO SCH (09:18)
[2019-07-05] MEDS: PANTOprazole 40 MG TAB PO SCH (09:18)
[2019-07-05] MEDS: POLYETHYLENE (MIRALAX) 17 GM PACK PO SCH (09:18)
--- NOTE | 2019-07-05 09:18 | Psychiatric Progress Note ---
Date of Service July 05, 2019 Impression / Recommendations Impression 74-year-old male with a history of coronary artery disease status post CABG in 05/[address] [facility] who presented with delusional disorder. He was hospitalized on the medical service first for CHF, then for multiple medical problems, and was seen by the psychiatry consult service on both hospitalizations. He has also been having episodes of unresponsiveness best described as conversion reactions. His family reports that he has been increasingly focused on delusions since February 2019, perseverating on them to the point that he was unable to function, and has been threatening and ag gressive to the point that his no longer feels safe at home with him. He had been prescribed citalopram for unclear reasons, and it has now been discontinued as he had some manic symptoms. He has been started on risperidone which has been titrated to 6 mg daily in divided doses, and Depakote for irritability, mood lability, and aggression. He has made threats to both staff and his while here, and at one point became agitated to the extent that he had to be given IM medications and be placed on an involuntary commitment on 06/27/2019. He is on an 303 involuntary commitment as of 07/02/2019. He initially stated unwillingness to return home to live with his , and wanted to go to supportive living in [place], but we have confirmed this is not an option, and he is now considering returning home. Risperdal decreased 07/04 due to somnolence. (1) Delusional disorder, somatic type: 06/25 -continue risperidone 1 mg 3 times daily. FLP from 06/06/2019 was within normal limits. Fasting glucose 158. -Extensive medical work-up of psychosis and neurological symptoms including: Head CT, brain MRI, EEG, prolactin, PTH, cortisol, RAÚL, RPR, Lyme IgG and IgM, HIV, hepatitis C, Neurology and orthopedic consultations. -Differential includes mood disorder (has displayed manic symptoms) and frontotemporal dementia. -Patient unable to reality test. Continue to offer support and strategies for distress tolerance. -Obtain collateral information and involve family as able. -Encourage patient to attend to participate in groups and therapy. Work on healthy coping skills and discharge safety plan. 06/26 - Continue risperidone and consolidate to 1mg qam and 2mg hs (which may also help with sleep). - Patient very poorly responsive to attempts to reframe his concerns as being influenced by psychological distress, and absolutely unable to reality test. - Recommend family meeting with his and daughter once he is able to tolerate it. is reportedly currently medically ill and quite stressed, and is he has been threatening her, we will postpone this for now. - Refer for outpatient case management services and explore housing options, as he is requesting supportive living referral. 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 It is recognized that this disorder, like all delusional disorders, tend to respond poorly to treatment. In this case, it will be important to avoid persistent reality testing, and the treatment team and I have discussed the fact that while we can and should provide reality testing when the patient escalates, we should not subsequently engage in any form of what might be considered a debate or attempt to convince. 06/28 - Lead level is low (2). - Now on a 302 involuntary commitment after episode of agitation and threatening staff yesterday, related to his delusions. - Delusions continue, risperidone just increased to total of 5mg daily in divide d dosing. Start trial of low-dose Depakote for irritability/anger outbursts/agitation -250 mg at bedtime. - Family meeting canceled due to agitation. Will reschedule once he is in better behavioral control. - Continue private room due to agitation and psychosis. 06/29 - Continue private room, as patient continues to have episodes of agitation, and has been making threats towards staff. He is unpredictable and does not respond well to attempts to redirect him. - Check heavy metal screen given his reports of past toxin exposure. - Increase risperidone to 1 mg 3 times daily and 3 mg at bedtime to target ongoing delusions. EKG today showed QTC 414. 06/30 - Patient remains delusional and unable to reality test. He continues to threaten harm to staff, and called his and threatened her. There are still guns in the home, although is working on getting them removed. - File for 303 involuntary commitment due to ongoing psychosis with threats to harm others. - Family meeting scheduled with his daughter and this afternoon. - SW to follow up on [facility] referral. 07/01 - Continue current medication regimen presently - patient appears more slowed with mild improvement in insight demonstrated today. He continues to demonstrate delusional thinking, but is far less preoccupied with the presence of bugs during assessment - 303 hearing is scheduled for 07/02 - Pt will require coordination of outpatient services, recommendation is for a BCM referral 07/02 -303 commitment granted. -Refer for BCM and outpatient psychiatric care. -Willing to work on relationship with and attempt to reconcile so that he can return to home at discharge. They will need a family meeting with the social work professor. 07/03 - Continue current medication regimen - Valproic acid ordered - subtherapeutic at 24mcg/mL - behavior is more appropriate, less agitated - Tolerated visit from last evening. Continue visits and schedule in- person meeting when appropriate - Will need to continue discussion regarding discharge plans 07/04 -The patient continues to episodically mention his belief that his skin is infected by parasites. However, he is able to hear us when we explained to him that his symptoms of which she complains are related to a combination of dry skin and pruritus. He generally does not bring up the issue of parasites, and when we do explained that we believe that the best explanation is something other than "bugs" he responds by shaking his head no, but otherwise does not object. (2) Intermittent explosive disorder: 06/29 - patient has a long history of anger problems, with rapid and unpredictable mood changes, and aggressive and threatening behavior. He does not have sufficient mood symptoms to support a bipolar diagnosis, and IED may be the most appropriate diagnosis. He was started on Depakote XR 250 mg at bedtime yesterday, and we will titrate as tolerated. 07/02 -order Depakote trough level for tomorrow a.m. Patient has been in better behavioral control. Continue to assist him in identifying coping strategies 07/03 - Valproic acid subtherapeutic at 24mcg/mL - behavior remains improved, less agitated 07/04 -The patient's emotional lability continues to be much better. On several occasions he has begun to escalate, but is able to either catch himself or be easily redirected. His tendency seems to be too make a report that his exaggerated, but reality based, and then with each successive retelling (within the same conversation) the report becomes progressively more expansive. (3) Conversion disorder: 06/25 - address psychosocial stressors, identify healthy coping skills, and provide reassurance and support. - Discussed with Dr. Aparicio, and patient has future unresponsive events, recommended vital signs, blood glucose, and if parameters are normal, contacting the hospitalist to evaluate the patient. - He was seen by orthopedics today, who recommended physical therapy for global weakness. PT consult ordered. 06/27 - The patient tells us that he feels that he is having transient ischemic attacks, and refers to his periods of paralysis and confusion by that name. - In addition to a conversion disorder, it is possible that the patient is experiencing prolonged adverse effects associated with general anesthesia or, as the patient suggests, brief transient ischemic attacks, although as described, these episodes are not typically consistent with TIAs. 07/03 - Additional history obtained, suggesting patient was diagnosed with conversion disorder in 2006; had followed routinely with neurology on an outpatient basis - Recommending continued neurologic follow-up after discharge - Recommending long-term psychiatric intervention - meeting with consistent therapist and psychiatric prescriber to appropriately manage contributing factors - No mention of continued events of numbness or unresponsiveness in several days 07/04 -It is occurred to us that the patient's report of 2 episodes of enuresis, combined with his assertion that "this is never happened to me before!" may be suggestive of conversion symptoms. However, the timing of these episodes, and the fact that they are combined with what appears to be medication induced sedation when appear to be a better explanation. His medications have been adjusted accordingly. (4) Eczematous dermatitis: 06/26 - reviewed dermatology note from 06/04/[address] Mac; patient had last been seen in 03/2019, reported multiple episodes of itching, burning, irritated areas of skin, which had previously responded to IM Kenalog. He received another injection of IM Kenalog, was diagnosed with eczematous dermatitis, and appropriate bathing practices were reviewed. Daily moisturization with Cetaphil cream was recommended, and avoidance of applying anything else to the skin. -Patient has been receiving triamcinolone topically once daily here. Will add Eucerin cream as skin appears dry and irritated. No signs of infection or parasites, although he has multiple areas of excoriation on his lower and upper extremities, face, and neck. 06/27 - As previously noted, the patient tends to draw our attention to patches of irritated skin and eczematous dermatitis, and refer to the associated skin "flaking" as constituting worms or "bugs" that he believes is crawling from his skin. He also experiences tingling and paresthesias that also seem to be contributing to his belief that he is contaminated with parasites. This is not atypical in cases of delusional parasitosis. - Treating the patient's current condition is important within the context of his associated psychiatric complaints. 07/01 - Pt initiated on Keflex 500mg BID for 7 days (5) Fracture of left distal radius: 06/26 - appreciate orthopedic recommendations; cast remains in place, but patient asking to have it removed. 06/29 - cast removed, continue brace. Laboratory work-up for poor healing per Ortho: Iron, TIBC, transferrin all within normal limits. LFTs show alkaline phosphatase 127 (was 96 on admission). Total protein normal, albumin 3.1. Alpha-1 antitrypsin, ceruloplasmin, and RAÚL screen pending. Cholesterol 90. 06/30 - PT consult requested but they have not seen him yet. -Orthopedics is recommending outpatient follow-up in 4 weeks. (6) Hypertension: Continue furosemide 20 mg daily and metoprolol 75 mg twice daily. Continue home dose of Imdur. -Follow-up with product marketing specialist as an outpatient. Her hospitalist discharge summary, he was instructed to follow-up at the [facility] within a week of discharge. (7) Alcohol abuse: History of alcohol abuse, no significant use in the past 3 years. 07/04/19 -The patient tells me today that his has been a sober support for him for many years and he indicates that although she sometimes annoys him with her insistence that he not use alcohol, he also notes that he is grateful to her for her help. (8) Vitamin B12 deficiency: Vitamin B12 from 06/15/2019 was 219. Folate 4.16. Vitamin B 1 6. Continue vitamin B12 1000 mcg daily, folic acid 1 mg daily, and thiamine 200 mg twice daily. (9) Diabetes mellitus, type 2: 06/25 -continue heart healthy, carb consistent diabetic diet, and insulin regimen per diabetic pharmacist. 07/04 -Patient acknowledges that he has difficulty making healthy choices consistent with his diabetic diet. At the same time, he was also able to tell us which foods are not consistent with his diet and is able to enumerate the complications associated with diabetes. (10) Stage III chronic kidney disease: 06/19 -creatinine returned to baseline as of 06/24/2019 (1.18); was as high as 1.65 on 06/23/2019. 07/03 - BMP rechecked today: Creatinine remains wnl at 1.25; however BUN remains elevated increased from 26 (07/02/2019) to 32 (07/03/2019) (11) Code status needs review: Patient was DNR/DNI on the medical floor. He voices that he continues to want this. He expresses understanding of this, despite his psychosis. It was documented during other admissions that he was DNR/DNI. He has not been suicidal. (12) Coronary artery disease: 06/29 -reporting chest pain today, difficult to tell how much of his reported symptoms are influenced by psychosis -ordered EKG, vital sign recheck, and blood glucose. -Consulted the hospitalist service, and spoke with Dr. Cunningham. Appreciate assistance and recommendations. 06/30 - Appreciate recommendations from Drs. Fajardo and Pili: Monitor weight, and if trending up, contact them for follow-up. 07/01 - Lasix increased to 40mg daily; I&O's ordered along with daily weights - Pt initiated on Lovenox today, with recommendation to transition to Xarelto 10mg daily for 45 days due to superficial venous thrombosis with evidence of increased blockage - Appreciate recommendations and continued input from hospitalist team 07/02 - Care coordinated with Drs. Frey, Addie, and Bryant. Appreciate their assistance in managing his multiple medical conditions. Xarelto co-pays $45 a month, which patient indicated is affordable. 07/03 - Appreciate ongoing recommendations from hospitalist team - Continue daily I&O's and weights - Additional recommendations per hospitalist team as indicated (13) Cognitive disorder: 06/30 - cognitively impaired, with a 15/30 on the MoCA today. Unclear if he has been diagnosed with a neurocognitive disorder in the past. 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 He also has a history of alcohol abuse which could be contributing to cognitive dysfunction. We will continue to monitor as his psychosis hopefully improves. -Prior to discharge, we will need to discuss recommendations regarding not driving until he is fully stabilized and is cleared by his physician. He is not yet ready to tolerate this discussion. 07/01 - Will need to discuss driving recommendations at time of discharge, given ongoing psychiatric symptoms and cognitive impairment as above - He did indicate that his product marketing specialist had already advised him not to drive for 10-weeks after his operation on 05/23/2019 - therefore already aware he is not to be driving for a period of time - Will need to follow-up with a more thorough conversation when it seems patient can better tolerate this 07/04 -Today, the patient is able to specifically recall her most recent previous encounterseach of which occurred 7 days ago. Within this context, he recalls some of the things we talked about. He is able to correctly identify his med ications and the purposes of each. Risk Factors Assessment Male: Yes : Yes Do You Have Access To A Gun?: Yes (Multiple guns in the home) Health Problems: Yes Mental Health Diagnoses: Yes Substance Use Disorders: Yes Previous Attempt: No Previous Psychiatric Hospitalization: Yes Hopelessness: No Smoker: No Protective Factors Assessment Sabianism Beliefs: No : Yes (But states he is going to file for divorce) Responsible for Young Children: No Employed: No Stable Relationships: No Supportive Family: Yes Interval History Identifying Information EMANUEL GRANT is a 74-year-old M who currently lives in [place] with his , has a history of delusional parasitosis and conversion disorder, and was admitted on 06/25/19 13:47 on a 201 voluntary commitment for delusional parasitosis. He was initially admitted to the hospitalist service 06/14/2019 - 06/21/2019, was transferred to the U, but then transferred back to the hospitalist service 06/23/2019 after an episode of unresponsiveness. He had a negative medical work-up and was been medically cleared and transferred back to the behavioral health unit 06/25/2019. Chief Complaint "my kidney hurts". Review of Systems Sleep Information Total Hours of Sleep: 3.75 Sleep Comments: pt incontinent of urine this am and required his bed linens to be changed. pt pleasant and cooperative. pt awoke @0430 and thereafter. pt on q-15 minute checks Meal Information Percent Meal Consumed - Breakfast: 100 Percent Meal Consumed - Lunch: 100 Percent Meal Consumed - Dinner: 100 Subjective Subjective Patient was seen & assessed and interval progress reviewed with nursing and social work. Patient reports muscle spasm in left upper back, lidoderm patch to be applied. No acute issues over night, still believes his condition is result of chemical exposure and describes describes combing out bugs this am. He is cooperative and redirectible, less expansive. Accepting of plan for discharge home with early next week. Incontinence improving with descrease in Risperdal. Physical Exam Psychiatric Orientation: alert and cooperative Apperance: appropriately dressed and appropriately groomed Eye Contact: good eye contact Motor Behavior: steady gait and station Speech: normal rate/rhythm/volume of speech Affect: euthymic affect pleasant mood Thought Process: + perseveration Thought Content: + preoccupation Suicidal Thoughts: denies suicidal thoughts Homicidal Thoughts: denies homicidal thoughts Hallucinations: no auditory hallucinations and no visual hallucinations Cognition: attention grossly intact Estimated Intelligence: consistent with education level Insight: + limited insight Judgement: + limited judgement Vital Signs (Past 24 Hours) Last Vital Signs Temp 36.6 C 07/05/19 06:34 Pulse 99 H 07/05/19 06:35 Resp 20 07/05/19 06:34 BP 104/73 07/05/19 06:35 Pulse Ox 97 07/03/19 06:48 Results & Data Laboratory Results Laboratory Results - last 24 hr 07/04/19 07/04/19 07/04/19 09:44 09:44 09:44 WBC 6.55 RBC 3.69 L Hgb 11.7 L Hct 35.3 L MCV 95.7 MCH 31.7 MCHC 33.1 RDW Std Deviation 48.5 H RDW Coeff of Gissel 13.9 Plt Count 193 MPV 10.1 Immature Gran % (Auto) 0.3 Neut % (Auto) 81.0 Lymph % (Auto) 8.7 [place] % (Auto) 8.1 Eos % (Auto) 1.7 Baso % (Auto) 0.2 Immature Gran # (Auto) 0.02 Neut # (Auto) 5.31 Lymph # (Auto) 0.57 L [place] # (Auto) 0.53 Eos # (Auto) 0.11 Baso # (Auto) 0.01 POC Glucose Ammonia 21.9 Troponin I < 0.015 07/04/19 07/04/19 07/04/19 10:25 13:17 17:32 WBC RBC Hgb Hct MCV MCH MCHC RDW Std Deviation RDW Coeff of Gissel Plt Count MPV Immature Gran % (Auto) Neut % (Auto) Lymph % (Auto) [place] % (Auto) Eos % (Auto) Baso % (Auto) Immature Gran # (Auto) Neut # (Auto) Lymph # (Auto) [place] # (Auto) Eos # (Auto) Baso # (Auto) POC Glucose 137 H 210 H 140 H Ammonia Troponin I 07/04/19 21:09 WBC RBC Hgb Hct MCV MCH MCHC RDW Std Deviation RDW Coeff of Gissel Plt Count MPV Immature Gran % (Auto) Neut % (Auto) Lymph % (Auto) [place] % (Auto) Eos % (Auto) Baso % (Auto) Immature Gran # (Auto) Neut # (Auto) Lymph # (Auto) [place] # (Auto) Eos # (Auto) Baso # (Auto) POC Glucose 287 H Ammonia Troponin I Current Inpatient Medications Current Inpatient Medications: Current Inpatient Medications Acetaminophen (Tylenol) 650 mg PO Q4H PRN PRN Reason: Headache or Minor Fever Stop: 07/25/19 14:02 Last Admin: 07/04/19 21:58 Dose: 650 mg Documented by: Al Hydrox/Mg Hydrox/Simethicone (Maalox) 30 ml PO Q4H PRN PRN Reason: GI Upset Stop: 07/25/19 14:02 Aspirin (Ecotrin Ectab) 81 mg PO DAILY [facility] Stop: 07/26/19 08:59 Last Admin: 07/04/19 10:29 Dose: 81 mg Documented by: Atorvastatin Calcium (Lipitor) 80 mg PO QAM [facility] Stop: 07/26/19 08:59 Last Admin: 07/04/19 10:29 Dose: 80 mg Documented by: Bismuth Subsalicylate (Kaopectate) 15 ml PO PRN PRN PRN Reason: Loose Stool Stop: 07/25/19 14:02 Cephalexin HCl (Keflex) 500 mg PO BID [facility] Stop: 07/10/19 22:14 Last Admin: 07/04/19 21:15 Dose: 500 mg Documented by: Cyanocobalamin (Vitamin B-12) 1,000 mcg PO DAILY [facility] Stop: 07/26/19 08:59 Last Admin: 07/04/19 10:29 Dose: 1,000 mcg Documented by: Dextrose (Dextrose 50%) 25 - 50 ml IV UD PRN; Protocol PRN Reason: Hypoglycemia Protocol Stop: 07/25/19 14:44 Divalproex Sodium (Depakote Extended Release) 500 mg PO HS [facility] Stop: 08/03/19 21:59 Last Admin: 07/04/19 21:18 Dose: 500 mg Documented by: [facility]amotidine (Pepcid) [facility] Stop: 07/26/19 08:59 Last Admin: 07/04/19 10:30 Dose: 40 mg Documented by: Fexofenadine HCl (Nikky) 60 mg PO BID [facility] Stop: 07/25/19 20:59 Last Admin: 07/04/19 21:15 Dose: 60 mg Documented by: Folic Acid (Folvite) 1 mg PO [facility] Stop: 07/26/19 08:59 Last Admin: 07/04/19 10:29 Dose: 1 mg Documented by: Furosemide (Lasix) 20 mg PO [facility] Stop: 07/26/19 08:59 Last Admin: 07/01/19 07:39 Dose: 20 mg Documented by: Furosemide (Lasix) 40 mg PO [facility] Stop: 08/01/19 08:59 Last Admin: 07/04/19 11:36 Dose: Not Given Documented by: Glucagon (Glucagen) 1 mg IM UD PRN; Protocol PRN Reason: Hypoglycemia Protocol Stop: 07/25/19 14:44 Glucose (Glucose 40%) 15 - 30 gm PO UD PRN; Protocol PRN Reason: Hypoglycemia Protocol Stop: 07/25/19 14:44 Glucose (Dex4 Glucose) 4 - 8 tabs PO UD PRN; Protocol PRN Reason: Hypoglycemia Protocol Stop: 07/25/19 14:44 Haloperidol (Haldol) 2.5 mg PO Q4H PRN PRN Reason: Agitation Stop: 07/27/19 14:46 Haloperidol Lactate (Haldol) 5 mg IM Q6H PRN PRN Reason: Agitation Stop: 07/27/19 14:44 Hydroxyzine HCl (Vistaril) 50 mg PO HSZ PRN PRN Reason: Insomnia Stop: 07/25/19 14:02 Hydroxyzine HCl (Vistaril) 25 mg PO Q4H PRN PRN Reason: Anxiety Stop: 07/25/19 14:02 Last Admin: 07/01/19 05:24 Dose: 25 mg Documented by: Insulin Aspart (Novolog Flexpen) 0 units SC ACHS [facility] Stop: 07/25/19 17:14 Last Admin: 07/04/19 21:38 Dose: 15 units Documented by: Insulin Glargine (Lantus Solostar Pen) 40 units SQ HS [facility]; Protocol Stop: 08/02/19 21:59 Last Admin: 07/04/19 21:42 Dose: 40 units Documented by: Isosorbide Mononitrate (Imdur Extended Rel) 60 mg PO QAM [facility] Stop: 07/26/19 08:59 Last Admin: 07/04/19 10:31 Dose: Not Given Documented by: Lidocaine (Lidoderm 5%) 1 patch TD DAILY PRN PRN Reason: pain Stop: 08/01/19 18:13 Last Admin: 07/03/19 10:19 Dose: 1 patch Documented by: Lorazepam (Ativan) 1 mg IM Q6H PRN PRN Reason: Agitation Stop: 07/27/19 14:59 Lorazepam (Ativan) 1 mg PO Q6H PRN PRN Reason: Agitation Stop: 07/27/19 14:47 Magnesium Hydroxide (Milk Of Magnesia) 30 ml PO DAILY PRN PRN Reason: Constipation Stop: 07/25/19 14:02 Metoprolol Tartrate (Lopressor) 75 mg PO BID [facility] Stop: 07/25/19 20:59 Last Admin: 07/04/19 21:26 Dose: 75 mg Documented by: Miscellaneous (Carbohydrates For Hypoglycemia) 15 - 30 gm PO UD PRN PRN Reason: Hypoglycemia Treatment Stop: 07/25/19 14:44 Miscellaneous (Remove Lidoderm Patch) 1 ea N/A DAILY@2100 [facility] Stop: 08/02/19 20:59 Last Admin: 07/04/19 23:04 Dose: Not Given Documented by: Miscellaneous Information (Consult Glycemic Management Pharmacy) 1 ea N/A UD PRN PRN Reason: Consult Stop: 07/26/19 09:10 Multi-Ingredient Cream (Hydrocerin) 1 appln EXT Q8H PRN PRN Reason: dry skin Stop: 07/26/19 10:33 Nitroglycerin (Nitrostat) 0.4 mg SL Q5M PRN PRN Reason: Chest Pain Stop: 02/07/20 14:15 Pantoprazole Sodium (Protonix) 40 mg PO DAILY [facility] Stop: 07/26/19 08:59 Last Admin: 07/04/19 10:30 Dose: 40 mg Documented by: Polyethylene Glycol (Miralax Powder Packet) 17 gm PO QAM [facility] Stop: 07/26/19 08:59 Last Admin: 07/04/19 10:31 Dose: 17 gm Documented by: Potassium Chloride (Klor-Con M20) 20 meq PO QAM [facility] Stop: 07/26/19 08:59 Last Admin: 07/04/19 10:29 Dose: 20 meq Documented by: Risperidone (Risperdal) 3 mg PO HS [facility] Stop: 07/27/19 21:59 Last Admin: 07/04/19 21:19 Dose: 3 mg Documented by: Risperidone (Risperdal) 0.5 mg PO [id number] [facility] Stop: 08/04/19 06:59 Last Admin: 07/05/19 06:33 Dose: 0.5 mg Documented by: Rivaroxaban (Xarelto) 10 mg PO DAILY@1300 [facility] Stop: 08/01/19 12:59 Last Admin: 07/04/19 13:30 Dose: 10 mg Documented by: Senna/Docusate Sodium (Senokot S) 1 tab PO QAM [facility] Stop: 07/26/19 08:59 Last Admin: 07/04/19 10:29 Dose: 1 tab Documented by: Sodium Chloride ([place] Nasal) 1 - 2 sprays NA PRN PRN PRN Reason: Nasal Dryness/Congestion Stop: 07/25/19 14:02 Thiamine HCl (Vitamin B-1) 200 mg PO BID [facility] Stop: 07/25/19 20:59 Last Admin: 07/04/19 21:16 Dose: 200 mg Documented by: Topiramate (Topamax) 100 mg PO BID [facility] Stop: 07/25/19 20:59 Last Admin: 07/04/19 21:16 Dose: 100 mg Documented by: Tramadol HCl (Ultram) 50 mg PO Q6H PRN PRN Reason: pain Stop: 07/25/19 14:15 Last Admin: 07/02/19 10:37 Dose: 50 mg Documented by: Triamcinolone Acetonide (Kenalog 0.1%) 1 appln EXT TID [facility] Stop: 07/25/19 20:59 Last Admin: 07/04/19 21:26 Dose: Not Given Documented by: Mental Health & Subst Abuse Tx Therapist Name of Therapist: sherley Bottling Room Worker Name of Bottling Room Worker: [facility] - Pam Gina Phone Number for Bottling Room Worker: [phone] Date of Appointment with Bottling Room Worker: 07/08/19 Time of Appointment with Bottling Room Worker: 10:30 a.m. Case Management Appointment Comment: Will meet you at your home Post Discharge Appointments Primary Care Physician Name Of Family Doctor: DOUG Moran Primary Care Date of Appointment with PCP: 07/08/19 Time of Appointment with PCP: 2:30 pm Provider Appointment Comment: [facility] [place] [address] Home Health Services Home Health Services:: youth services librarian, Physical Therapy and Occupational Therapy Home Health Agency: [facility] Home Health Neurologist Name of Neurologist: DOUG Bañuelos Neurologist's Date of Appointment with Neurologist: 07/31/19 Time of Appointment with Neurologist: 9:00 a.m. Neurology Appointment Comment: [address] [facility], [address], [place] [address] Contact Information Discharge Discharge Address: [address] [place] [id number] (1) Hypertension Hypertension type: essential hypertension Qualified Code(s): I10 - Essential (primary) hypertension (2) Diabetes mellitus, type 2 Diabetes mellitus fpc insulin use: with fpc use Diabetes mellitus complication status: with neurologic complications Diabetes mellitus complication detail: with polyneuropathy Qualified Code(s): E11.42 - Type 2 diabetes mellitus with diabetic polyneuropathy; Z79.4 - extermination supervisor (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
[2019-07-05] MEDS: TOPIRAMATE 100 MG TAB PO SCH ×2 (09:19→20:53)
[2019-07-05] MEDS: DOCUSATE SODIUM/SENNA 50/8.6MG TAB PO SCH (09:19)
[2019-07-05] MEDS: THIAMINE HCL 100 MG TAB PO SCH ×2 (09:20→20:52)
[2019-07-05] MEDS: CYANOCOBALAMIN 500 MCG TABLET (VITAMIN B-12) PO SCH (09:20)
[2019-07-05] MEDS: POTASSIUM CHLORIDE 20 MEQ TABCR PO SCH (09:20)
[2019-07-05] MEDS: INSULIN ASPART 100 UNITS/ML 3 ML PEN SC SCH ×4 (09:25→22:11)
--- NOTE | 2019-07-05 09:25 | Pharmacy Report ---
Pharmacy Glycemic Short Note 2 - Date of Service July 05, 2019 - Glycemic Short BSG Results (Last 24 hours): 07/04/19 07/04/19 07/04/19 10:25 13:17 17:32 POC Glucose 137 H 210 H 140 H 07/04/19 07/05/19 21:09 09:05 POC Glucose 287 H 127 H OUTPATIENT ANTIDIABETIC REGIMEN: * Lantus 40-60 units HS * Humalog 10-15 units prior to meals ASSESSMENT: 07/05: * Patient received total of 92 units of insulin yesterday, of which 40 were basal insulin * Fasting this am w/in range at 127 mg/dl - no change in basal necessary * BSGs yesterday slightly elevated throughout the day, had previously tightened CF/CR day prior - will continue same but monitor PLAN FOR INPATIENT GLYCEMIC CONTROL: * Basal insulin: continue same * Lantus 40 units qHS * Bolus insulin: continue same * NovoLog per scale ACHS or Q6hrs while NPO * Goal Range: Low 110 mg/dL - High 140 mg/dL * Correction Factor: 15 mg/dL/unit * Nutritional / Prandial insulin per carb ratio of 1 unit per 6 grams CHO consumed
[2019-07-05] MEDS: LIDOCAINE 5% 1 PATCH TD PRN (11:17)
[2019-07-05] MEDS: RIVAROXABAN 10 MG TABLET PO SCH (13:24)
[2019-07-05] MEDS: risperiDONE 3 MG TABLET PO SCH (20:51)
[2019-07-05] MEDS: DIVALPROEX EXTENDED RELEASE 500 MG TAB PO SCH (20:52)
[2019-07-05] MEDS: INSULIN GLARGINE SOLOSTAR 100 UNITS/ML 3 ML PEN SQ SCH (22:09)
[2019-07-06] MEDS: ACETAMINOPHEN 325 MG TAB PO PRN (05:23)
[2019-07-06] MEDS: risperiDONE 0.5 MG TABLET PO SCH ×2 (06:53→13:25)
[2019-07-06] MEDS: ASPIRIN 81 MG ECTAB PO SCH (08:02)
[2019-07-06] MEDS: FEXOFENADINE 60 MG TAB PO SCH ×2 (08:02→21:30)
[2019-07-06] MEDS: cephALEXin 500 MG CAP PO SCH ×2 (08:03→21:24)
[2019-07-06] MEDS: FOLIC ACID 1 MG TAB PO SCH (08:04)
[2019-07-06] MEDS: PANTOprazole 40 MG TAB PO SCH (08:04)
[2019-07-06] MEDS: FAMOTIDINE 40 MG TABLET PO SCH (08:04)
[2019-07-06] MEDS: ATORVASTATIN 40 MG TAB PO SCH (08:04)
[2019-07-06] MEDS: CYANOCOBALAMIN 500 MCG TABLET (VITAMIN B-12) PO SCH (08:05)
[2019-07-06] MEDS: THIAMINE HCL 100 MG TAB PO SCH ×2 (08:05→21:26)
[2019-07-06] MEDS: TOPIRAMATE 100 MG TAB PO SCH ×2 (08:05→21:25)
[2019-07-06 08:07] LABS: BUN Creatinine Ratio 28.1 (10-20); Calcium 8.6 mg/dl (8.5-10.1); Creatinine Clr Calc Pharmacy 64.4 ml/min; Est GFR (African American) 72.8; Est GFR (Non-African American) 62.8; Magnesium 2.3 mg/dl (1.8-2.4); Potassium 4.2 mmol/L (3.5-5.1)
[2019-07-06] MEDS: DOCUSATE SODIUM/SENNA 50/8.6MG TAB PO SCH (08:09)
[2019-07-06] MEDS: ISOSORBIDE MONO EXTENDED REL 60 MG TABCR PO SCH (08:09)
[2019-07-06] MEDS: METOPROLOL TARTRATE 25 MG TAB PO SCH ×2 (08:09→21:24)
[2019-07-06] MEDS: POLYETHYLENE (MIRALAX) 17 GM PACK PO SCH (08:10)
[2019-07-06] MEDS: TRIAMCINOLONE ACET 0.1% OINT 15 GM TUBE EXT SCH ×3 (08:10→21:22)
[2019-07-06] MEDS: POTASSIUM CHLORIDE 20 MEQ TABCR PO SCH (08:12)
[2019-07-06] MEDS: INSULIN ASPART 100 UNITS/ML 3 ML PEN SC SCH ×4 (09:00→21:35)
[2019-07-06] MEDS: FUROSEMIDE 20 MG TAB PO SCH (09:33)
--- NOTE | 2019-07-06 10:23 | Psychiatric Progress Note ---
Date of Service July 06, 2019 Impression / Recommendations Impression 74-year-old male with a history of coronary artery disease status post CABG in 05/[address] [facility] who presented with delusional disorder. He was hospitalized on the medical service first for CHF, then for multiple medical problems, and was seen by the psychiatry consult service on both hospitalizations. He has also been having episodes of unresponsiveness best described as conversion reactions. His family reports that he has been increasingly focused on delusions since February 2019, perseverating on them to the point that he was unable to function, and has been threatening and ag gressive to the point that his no longer feels safe at home with him. He had been prescribed citalopram for unclear reasons, and it has now been discontinued as he had some manic symptoms. He has been started on risperidone which has been titrated to 6 mg daily in divided doses, and Depakote for irritability, mood lability, and aggression. He has made threats to both staff and his while here, and at one point became agitated to the extent that he had to be given IM medications and be placed on an involuntary commitment on 06/27/2019. He is on an 303 involuntary commitment as of 07/02/2019. He initially stated unwillingness to return home to live with his , and wanted to go to supportive living in [place], but we have confirmed this is not an option, and he is now considering returning home. Risperdal decreased 07/04 due to somnolence. Plan: VPA level in am, anticipated d/c 07/07 Risk Factors Assessment Male: Yes : Yes Do You Have Access To A Gun?: Yes (Multiple guns in the home) Health Problems: Yes Mental Health Diagnoses: Yes Substance Use Disorders: Yes Previous Attempt: No Previous Psychiatric Hospitalization: Yes Hopelessness: No Smoker: No Protective Factors Assessment Yarsani Beliefs: No : Yes (But states he is going to file for divorce) Responsible for Young Children: No Employed: No Stable Relationships: No Supportive Family: Yes Interval History Identifying Information EMANUEL GRANT is a 74-year-old M who currently lives in [place] with his , has a history of delusional parasitosis and conversion disorder, and was admitted on 06/25/19 13:47 on a 201 voluntary commitment for delusional parasitosis. He was initially admitted to the hospitalist service 06/14/2019 - 06/21/2019, was transferred to the U, but then transferred back to the hospitalist service 06/23/2019 after an episode of unresponsiveness. He had a negative medical work-up and was been medically cleared and transferred back to the behavioral health unit 06/25/2019. Chief Complaint "You have a halo today". Review of Systems Sleep Information Total Hours of Sleep: 4 Sleep Comments: pt incontinent of urine this am and required his bed linens to be changed. pt pleasant and cooperative. pt awoke @0430 and thereafter. pt on q-15 minute checks Meal Information Percent Meal Consumed - Breakfast: 100 Percent Meal Consumed - Lunch: 100 Percent Meal Consumed - Dinner: 100 Subjective Subjective Patient was seen & assessed and interval progress reviewed with nursing. Thankful for care provided, when makes more expansive statements he is more clearly joking than religiously preoccupied. He did attempt to hug a co-patient yesterday. He did find a "bug" on a male staff and accepted it was hair gel. Family still working to secure guns. Physical Exam Psychiatric The patient presented as alert and cooperative. The patient was casually dressed and groomed. Eye contact was fair. No psychomotor restlessness or agitation was noted. Speech was normal in rate, rhythm, and volume. Affect was mood congruent. The patients mood appeared euthymic. Thought processes were clear, coherent and goal directed without evidence of loose associations or flight of ideas. Thought content/perception was reality based without delusions. The patient denied suicidal and homicidal ideation. The patient denied hallucinations and did not appear to be responding to internal stimuli. Cognition was grossly intact with orientation to person, place and time. Fund of Knowledge/Intelligence were consistent with level of education. Insight and Judgement were improved. Vital Signs (Past 24 Hours) Last Vital Signs Temp 36.8 C 07/06/19 06:40 Pulse 88 07/06/19 08:08 Resp 20 07/06/19 06:40 BP 113/70 07/06/19 08:08 Pulse Ox 97 07/03/19 06:48 Results & Data Laboratory Results Laboratory Results - last 24 hr 07/05/19 07/05/19 07/05/19 12:12 17:35 20:47 Sodium Potassium Chloride Carbon Dioxide Anion Gap BUN Creatinine Est Cr Clr Drug Dosing Est GFR ( Amer) Est GFR (Non-Af Amer) BUN/Creatinine Ratio Glucose POC Glucose 180 H 111 H 167 H Calcium Magnesium 07/06/19 07/06/19 07:25 08:18 Sodium 142 Potassium 4.2 Chloride 112 H Carbon Dioxide 25 Anion Gap 5.0 BUN 32 H Creatinine 1.15 Est Cr Clr Drug Dosing 64.4 Est GFR ( Amer) 72.8 Est GFR (Non-Af Amer) 62.8 BUN/Creatinine Ratio 28.1 H Glucose 83 POC Glucose 89 Calcium 8.6 Magnesium 2.3 Current Inpatient Medications Current Inpatient Medications: Current Inpatient Medications Acetaminophen (Tylenol) 650 mg PO Q4H PRN PRN Reason: Headache or Minor Fever Stop: 07/25/19 14:02 Last Admin: 07/06/19 05:23 Dose: 650 mg Documented by: Al Hydrox/Mg Hydrox/Simethicone (Maalox) 30 ml PO Q4H PRN PRN Reason: GI Upset Stop: 07/25/19 14:02 Aspirin (Ecotrin Ectab) 81 mg PO DAILY [facility] Stop: 07/26/19 08:59 Last Admin: 07/06/19 08:02 Dose: 81 mg Documented by: Atorvastatin Calcium (Lipitor) 80 mg PO QAM [facility] Stop: 07/26/19 08:59 Last Admin: 07/06/19 08:04 Dose: 80 mg Documented by: Bismuth Subsalicylate (Kaopectate) 15 ml PO PRN PRN PRN Reason: Loose Stool Stop: 07/25/19 14:02 Cephalexin HCl (Keflex) 500 mg PO BID [facility] Stop: 07/10/19 22:14 Last Admin: 07/06/19 08:03 Dose: 500 mg Documented by: Cyanocobalamin (Vitamin B-12) 1,000 mcg PO DAILY [facility] Stop: 07/26/19 08:59 Last Admin: 07/06/19 08:05 Dose: 1,000 mcg Documented by: Dextrose (Dextrose 50%) 25 - 50 ml IV UD PRN; Protocol PRN Reason: Hypoglycemia Protocol Stop: 07/25/19 14:44 Divalproex Sodium (Depakote Extended Release) 500 mg PO HS [facility] Stop: 08/03/19 21:59 Last Admin: 07/05/19 20:52 Dose: 500 mg Documented by: Famotidine (Pepcid) 40 mg PO QAM [facility] Stop: 07/26/19 08:59 Last Admin: 07/06/19 08:04 Dose: 40 mg Documented by: Fexofenadine HCl (Nikky) 60 mg PO BID [facility] Stop: 07/25/19 20:59 Last Admin: 07/06/19 08:02 Dose: 60 mg Documented by: Folic Acid (Folvite) [facility] [place] Stop: 07/26/19 08:59 Last Admin: 07/06/19 08:04 Dose: 1 mg Documented by: Furosemide (Lasix) [facility] [place] Stop: 07/26/19 08:59 Last Admin: 07/06/19 09:33 Dose: 20 mg Documented by: Furosemide (Lasix) 40 [facility] [place] Stop: 08/01/19 08:59 Last Admin: 07/04/19 11:36 Dose: Not Given Documented by: Glucagon (Glucagen) 1 mg IM UD PRN; Protocol PRN Reason: Hypoglycemia Protocol Stop: 07/25/19 14:44 Glucose (Glucose 40%) 15 - 30 gm PO UD PRN; Protocol PRN Reason: Hypoglycemia Protocol Stop: 07/25/19 14:44 Glucose (Dex4 Glucose) 4 - 8 tabs PO UD PRN; Protocol PRN Reason: Hypoglycemia Protocol Stop: 07/25/19 14:44 Haloperidol (Haldol) 2.5 mg PO Q4H PRN PRN Reason: Agitation Stop: 07/27/19 14:46 Haloperidol Lactate (Haldol) 5 mg IM Q6H PRN PRN Reason: Agitation Stop: 07/27/19 14:44 Hydroxyzine HCl (Vistaril) 50 mg PO HSZ PRN PRN Reason: Insomnia Stop: 07/25/19 14:02 Hydroxyzine HCl (Vistaril) 25 mg PO Q4H PRN PRN Reason: Anxiety Stop: 07/25/19 14:02 Last Admin: 07/01/19 05:24 Dose: 25 mg Documented by: Insulin Aspart (Novolog Flexpen) 0 units SC [facility] Stop: 07/25/19 17:14 Last Admin: 07/06/19 09:00 Dose: 10 units Documented by: Insulin Glargine (Lantus Solostar Pen) 40 units SQ [facility]; Protocol Stop: 08/02/19 21:59 Last Admin: 07/05/19 22:09 Dose: 40 units Documented by: Isosorbide Mononitrate (Imdur Extended Rel) 60 mg PO QAM [facility] Stop: 07/26/19 08:59 Last Admin: 07/06/19 08:09 Dose: 60 mg Documented by: Lidocaine (Lidoderm 5%) 1 patch TD DAILY PRN PRN Reason: pain Stop: 08/01/19 18:13 Last Admin: 07/05/19 11:17 Dose: 1 patch Documented by: Lorazepam (Ativan) 1 mg IM Q6H PRN PRN Reason: Agitation Stop: 07/27/19 14:59 Lorazepam (Ativan) 1 mg PO Q6H PRN PRN Reason: Agitation Stop: 07/27/19 14:47 Magnesium Hydroxide (Milk Of Magnesia) 30 ml PO DAILY PRN PRN Reason: Constipation Stop: 07/25/19 14:02 Metoprolol Tartrate (Lopressor) 75 mg PO BID [facility] Stop: 07/25/19 20:59 Last Admin: 07/06/19 08:09 Dose: 75 mg Documented by: Miscellaneous (Carbohydrates For Hypoglycemia) 15 - 30 gm PO UD PRN PRN Reason: Hypoglycemia Treatment Stop: 07/25/19 14:44 Miscellaneous (Remove Lidoderm Patch) 1 ea N/A DAILY@2100 [facility] Stop: 08/02/19 20:59 Last Admin: 07/05/19 20:58 Dose: 1 ea Documented by: Miscellaneous Information (Consult Glycemic Management Pharmacy) 1 ea N/A UD PRN PRN Reason: Consult Stop: 07/26/19 09:10 Multi-Ingredient Cream (Hydrocerin) 1 appln EXT Q8H PRN PRN Reason: dry skin Stop: 07/26/19 10:33 Nitroglycerin (Nitrostat) 0.4 mg SL Q5M PRN PRN Reason: Chest Pain Stop: 07/25/19 14:15 Pantoprazole Sodium (Protonix) 40 mg PO DAILY [facility] Stop: 07/26/19 08:59 Last Admin: 07/06/19 08:04 Dose: 40 mg Documented by: Polyethylene Glycol (Miralax Powder Packet) 17 gm PO QAM [facility] Stop: 07/26/19 08:59 Last Admin: 07/06/19 08:10 Dose: 17 gm Documented by: Potassium Chloride (Klor-Con M20) 20 meq PO QAM [facility] Stop: 07/26/19 08:59 Last Admin: 07/06/19 08:12 Dose: 20 meq Documented by: Risperidone (Risperdal) 3 mg PO HS [facility] Stop: 07/27/19 21:59 Last Admin: 07/05/19 20:51 Dose: 3 mg Documented by: Risperidone (Risperdal) 0.5 mg PO [id number] [facility] Stop: 08/04/19 06:59 Last Admin: 07/06/19 06:53 Dose: 0.5 mg Documented by: Rivaroxaban (Xarelto) 10 mg PO DAILY@1300 [facility] Stop: 08/01/19 12:59 Last Admin: 07/05/19 13:24 Dose: 10 mg Documented by: Senna/Docusate Sodium (Senokot S) 1 tab PO QAM [facility] Stop: 07/26/19 08:59 Last Admin: 07/06/19 08:09 Dose: 1 tab Documented by: Sodium Chloride ([place] Nasal) 1 - 2 sprays NA PRN PRN PRN Reason: Nasal Dryness/Congestion Stop: 07/25/19 14:02 Thiamine HCl (Vitamin B-1) 200 mg PO BID [facility] Stop: 07/25/19 20:59 Last Admin: 07/06/19 08:05 Dose: 200 mg Documented by: Topiramate (Topamax) 100 mg PO BID [facility] Stop: 07/25/19 20:59 Last Admin: 07/06/19 08:05 Dose: 100 mg Documented by: Tramadol HCl (Ultram) 50 mg PO Q6H PRN PRN Reason: pain Stop: 07/25/19 14:15 Last Admin: 07/02/19 10:37 Dose: 50 mg Documented by: Triamcinolone Acetonide (Kenalog 0.1%) 1 appln EXT TID [facility] Stop: 07/25/19 20:59 Last Admin: 07/06/19 08:10 Dose: Not Given Documented by: Mental Health & Subst Abuse Tx Therapist Name of Therapist: denies Model Maker Plastic Name of Model Maker Plastic: [facility] - Pam Fuentes Phone Number for Model Maker Plastic: [phone] Date of Appointment with Model Maker Plastic: 07/08/19 Time of Appointment with Model Maker Plastic: 10:30 a.m. Case Management Appointment Comment: Will meet you at your home Post Discharge Appointments Primary Care Physician Name Of Family Doctor: DOUG Moran Primary Care Date of Appointment with PCP: 07/08/19 Time of Appointment with PCP: 2:30 pm Provider Appointment Comment: [address] [place] [address] Home Health Services Home Health Services:: student services counselor, Physical Therapy and Occupational Therapy Home Health Agency: [facility] Health Phone Number of Home Services Agency: [phone] Neurologist Name of Neurologist: DOUG Bañuelos Neurologist's Date of Appointment with Neurologist: 07/31/19 Time of Appointment with Neurologist: 9:00 a.m. Neurology Appointment Comment: [address] [facility] [facility], [address], [place] [address] Contact Information Discharge Discharge Address: [address] [place] [address]
[2019-07-06] MEDS ORDERED: FUROSEMIDE 20 MG TAB PO ONE (13:00)
[2019-07-06] MEDS: RIVAROXABAN 10 MG TABLET PO SCH (13:25)
--- NOTE | 2019-07-06 13:33 | Hospitalist Progress Note ---
Date of Service July 06, 2019 Assessment & Plan (1) Lower extremity edema: 74 yo medically complicated male admitted to psychiatric unit on involuntary admission (303) with L lower extremity edema and erythema, found to have superficial venous thromboembolism. With continued improvement of leg edema and back to baseline mental status. Lower extremity edema - seems to be likely due to venous stasis as swelling is improving with compression stockings and was not made better by increases in Lasix dose. - Echo from 06/25/2019 - normal right ventricular function. - creatinine today 1.15; resume lasix 20mg PO daily. - continued mild activity and compression stockings. - BMP AM. Superficial venous thrombosis: - Venous duplex 07/01 with following impression: extensive superficial venous thrombosis in the greater saphenous vein extending to within 1.5 cm of the saphenofemoral junction, which is increased from prior. - Given proximity to saphenofemoral junction (<5 cm), patient requires anticoagulation. - Xarelto 10mg daily for 45 days. Pharmacy consulted and noted no major contraindications/ interactions with patient's current medication regimen. Case management reports cost of $45 per month; patient confirms this is affordable. Chronic CHF: - daily weights and I/Os ordered. - Resuming lasix today in the setting of resolution of his JUANCARLOS. - Continue metoprolol 75mg BID and isosorbide mononitrate. Cellulitis of LE: - not convinced pt's bilateral redness and swelling is due to cellulitis. More likely due to venous stasis and profound swelling over his hospital course. - However cannot rule out cellulitis, completed 7 day course of Keflex 500 BID. Bilateral Flank pain: - patient does have history of kidney stones, no urinary sxs and pt's back pain alleviated with lido patch. - UAs this admission negative for blood. - pain likely musculoskeletal in origin; continue tylenol and lidocaine patches. CAD s/p recent CABG - Continue aspirin, atorvastatin, metoprolol. DM - continue current regimen. Acute change in mental status: - This admission had episode of catatonia and AMS; extensive workup as below was negative and determined to be a conversion disorder state which the pt recovered from shortly following the episode. - risperidone dosing decreased from 6mg daily to 4mg. - Head CT negative. - EKG with sinus tach at 102 bpm and fusion complexes; no acute ST segment changes . - troponin undetectable. - CBC with normal white count and mild anemia (hgb 11.7). - CXR WNL. - blood cultures obtained and negative to date. Possible cellulitis of lower extremities continuing Keflex for total of 5 days. - valproate level low at 24 on 07/03; repeat 07/07. Code status: DNR/DNI DVT ppx: on Xarelto FEN/GI: Heart Healthy, DM2 diet with sodium and fluid restriction Dispo: Psych unit, for home 07/07/2019 (2) Cellulitis: Subjective No acute events overnight. Feels that his leg swelling is better today. No shortness of breath, chest pain, fevers or chills, nausea or vomiting. Some continued bilateral lower back pain relieved with lidocaine patches. Ready to go home tomorrow. Review of Systems Review of Systems: Constitutional: denies fever, chills, sweats, headache Respiratory: denies SOB, difficulty breathing Cardiac: denies CP, chest palpitations, chest pressure Breast: denies breast pain : denies dysuria Physical Exam Constitutional: WD/WN, vitals as above Respiratory: normal respiratory effort, lungs clear to auscultation Cardiovascular: Rate/Rhythm: regular rate and regular rhythm Heart Sounds: no murmur Extremities: + edema (1+ pitting edema bilateral LE) Gastrointestinal (Abdomen): normal bowel sounds, soft, nontender, no hepatosplenomegaly Skin: venous stasis changes to bilateral lower extremities. Some weeping from legs into compression stockings. No increase in warmth. No purulent drainage. Psychiatric: A+Ox3, euthymic affect Results & Data Vital Signs (Past 12 Hours) Vital Signs Temp Pulse Pulse Resp BP BP 07/06/19 08:08 88 113/70 07/06/19 06:41 94 H 92/57 L 07/06/19 06:40 36.8 C 91 H 20 101/67 Laboratory Results Laboratory Results - last 24 hr 07/05/19 07/05/19 07/06/19 17:35 20:47 07:25 Sodium 142 Potassium 4.2 Chloride 112 H Carbon Dioxide 25 Anion Gap 5.0 BUN 32 H Creatinine 1.15 Est Cr Clr Drug Dosing 64.4 Est GFR ( Amer) 72.8 Est GFR (Non-Af Amer) 62.8 BUN/Creatinine Ratio 28.1 H Glucose 83 POC Glucose 111 H 167 H Calcium 8.6 Magnesium 2.3 07/06/19 07/06/19 08:18 13:04 Sodium Potassium Chloride Carbon Dioxide Anion Gap BUN Creatinine Est Cr Clr Drug Dosing Est GFR ( Amer) Est GFR (Non-Af Amer) BUN/Creatinine Ratio Glucose POC Glucose 89 93 Calcium Magnesium Resident Activity Tracking Resident Involvement: Resident Care Provided Care Provided: Adult Hospital Medicine
--- NOTE | 2019-07-06 13:37 | Pharmacy Report ---
Pharmacy Glycemic Short Note 2 - Date of Service July 06, 2019 - Glycemic Short BSG Results (Last 24 hours): 07/05/19 07/05/19 07/06/19 17:35 20:47 07:25 Glucose 83 POC Glucose 111 H 167 H 07/06/19 07/06/19 08:18 13:04 Glucose POC Glucose 89 93 OUTPATIENT ANTIDIABETIC REGIMEN: * Lantus 40-60 units HS * Humalog 10-15 units prior to meals ASSESSMENT: 07/06: * Patient received total of 80 units of insulin yesterday, of which 40 were basal insulin * Fasting BSG 83 mg/dL - appears to be trending down each day with change to Lantus 40 units * Will decrease back to Lantus 35 units at HS * Lunchtime BSG remains on lower end of goal - will slightly loosen CR 07/05: * Patient received total of 92 units of insulin yesterday, of which 40 were basal insulin * Fasting this am w/in range at 127 mg/dl - no change in basal necessary * BSGs yesterday slightly elevated throughout the day, had previously tightened CF/CR day prior - will continue same but monitor PLAN FOR INPATIENT GLYCEMIC CONTROL: * Basal insulin: decrease * Lantus 35 units qHS * Bolus insulin: loosen * NovoLog per scale ACHS or Q6hrs while NPO * Goal Range: Low 110 mg/dL - High 140 mg/dL * Correction Factor: 15 mg/dL/unit * Nutritional / Prandial insulin per carb ratio of 1 unit per 7 grams CHO consumed
[2019-07-06] MEDS: DIVALPROEX EXTENDED RELEASE 500 MG TAB PO SCH (21:27)
[2019-07-06] MEDS: risperiDONE 3 MG TABLET PO SCH (21:28)
[2019-07-06] MEDS ORDERED: INSULIN GLARGINE SOLOSTAR 100 UNITS/ML 3 ML PEN SQ SCH ×2 (22:00)
[2019-07-07] MEDS: risperiDONE 0.5 MG TABLET PO SCH (06:34)
[2019-07-07] MEDS: ACETAMINOPHEN 325 MG TAB PO PRN (06:41)
[2019-07-07 07:43] LABS: BUN Creatinine Ratio 24.8 (10-20); Calcium 8.9 mg/dl (8.5-10.1); Creatinine Clr Calc Pharmacy 65.4 ml/min; Est GFR (African American) 74.3; Est GFR (Non-African American) 64.1; Potassium 3.9 mmol/L (3.5-5.1)
[2019-07-07] MEDS: CYANOCOBALAMIN 500 MCG TABLET (VITAMIN B-12) PO SCH (07:52)
[2019-07-07] MEDS: THIAMINE HCL 100 MG TAB PO SCH (07:52)
[2019-07-07] MEDS: TOPIRAMATE 100 MG TAB PO SCH (07:53)
[2019-07-07] MEDS: PANTOprazole 40 MG TAB PO SCH (07:53)
[2019-07-07] MEDS: FAMOTIDINE 40 MG TABLET PO SCH (07:54)
[2019-07-07] MEDS: METOPROLOL TARTRATE 25 MG TAB PO SCH (07:55)
[2019-07-07] MEDS: DOCUSATE SODIUM/SENNA 50/8.6MG TAB PO SCH (07:55)
[2019-07-07] MEDS: ATORVASTATIN 40 MG TAB PO SCH (07:56)
[2019-07-07] MEDS: POTASSIUM CHLORIDE 20 MEQ TABCR PO SCH (07:57)
[2019-07-07] MEDS: FOLIC ACID 1 MG TAB PO SCH (07:58)
[2019-07-07] MEDS: cephALEXin 500 MG CAP PO SCH (07:58)
[2019-07-07] MEDS: ASPIRIN 81 MG ECTAB PO SCH (07:58)
[2019-07-07] MEDS: ISOSORBIDE MONO EXTENDED REL 60 MG TABCR PO SCH (07:59)
[2019-07-07] MEDS: FEXOFENADINE 60 MG TAB PO SCH (07:59)
[2019-07-07] MEDS: POLYETHYLENE (MIRALAX) 17 GM PACK PO SCH (08:00)
[2019-07-07] MEDS: TRIAMCINOLONE ACET 0.1% OINT 15 GM TUBE EXT SCH (08:04)
[2019-07-07] MEDS ORDERED: FUROSEMIDE 40 MG TAB PO SCH (09:00)
[2019-07-07] MEDS ORDERED: FUROSEMIDE 20 MG TAB PO SCH (09:00)
[2019-07-07] MEDS: INSULIN ASPART 100 UNITS/ML 3 ML PEN SC SCH (09:03)
--- NOTE | 2019-07-07 10:25 | Discharge Summary ---
Date of Service July 07, 2019 History of Present Illness Patient has had a complicated hospital course; he was hospitalized 06/05/2019 - 06/10/2019 for CHF, during which time he was seen on the psychiatric consult service for delusional thoughts, but refused treatment. He was discharged home but returned to the ER 4 days later with a complaint of his head shrinking, caving in, and that he was coughing up bugs. He was again admitted to the hospitalist service, and seen on the psychiatry consult service the following day and diagnosed with delusional disorder. He had been reporting concerns that he had been exposed to damaging chemicals which were causing health problems, and had been focused on this off and on for the past 40 years, but an increase in his preoccupation over the past few months. He reported that his surgical scar was the point of entry for the bugs. 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 He was ultimately medically cleared 06/21/2019, and transferred to the behavioral health unit, and risperidone was increased to 1 mg twice daily due to ongoing delusional parasitosis. Citalopram was decreased and then discontinued as he appeared manic. He was hyperverbal, pressured, expansive, ro tations with female staff, and inappropriate in groups. He was preoccupied with his delusions of infestation, picking at crumbs or lint and insisting that they were bugs. He expressed a desire to be discharged to a personal penit[facility] following discharge. The following day, he had an episode of unresponsiveness, code purple was activated, and he was transferred back to the medical floor for additional work-up. His medical work-up of unresponsive spells has been negative and most likely diagnosis is thought to be conversion disorder. He had negative CTAs of the head and neck, head CT, and spine CT; brain MRI showed punctate 3 mm periventricular T2 hyperintense focus within the right parietal lobe indicating a small subacute infarct, which was thought to be unlikely to be playing a role in his symptoms. As he had foraminal narrowing and a bulging disc on cervical spine MRI, orthopedics was consulted, and felt that his weakness was global and recommended conservative care with outpatient physical therapy. Neurology was also consulted and thought his symptoms were likely due to conversion disorder, Wernicke-Korsakoff syndrome, or multiple vitamin B deficiencies. He had an EEG that was unremarkable. They recommended physical therapy and thiamine, folate, and multivitamin. He had a CT of the abdomen and pelvis due to complaints of flank pain, which showed moderate increase in colonic fecal load and a small pericardial effusion. He had a limited echo today which was negative for effusion. Furosemide was held due to acute kidney injury, which has since resolved. He continues to report leg weakness but has been able to ambulate to the toilet with minimal assistance. He continues to report that there are bugs crawling out of his skin. This morning, he reported that one arm and leg were becoming paralyzed, and that the left side of his head was "caving in." He was able to respond to directions, and although he reported that he had lost sensation, he was able to feel tactile stimuli. He initially stated he could not move his fingers, but then was able to move his fingers in response to commands. He said "here it comes," and then became unresponsive. His vital signs were normal, and BSG 150. He did not respond to sternal rub, but did pull his arm away when pressure was applied to the nailbed. The episode lasted approximately 15 minutes. On my assessment, he is seated at the bedside eating lunch. He states all of the symptoms from this morning's episode have fully resolved, and he was just able to ambulate to the bathroom and do his usual grooming activities without difficulty. He states mood is "really good," but continues to state he does not want to return home and live with his , "she's a nut, she don't want to talk to me, and I don't want to go home with her," and wants to go to [facility] living in [place]. He states he has started the process and has talked to "Michael," but is not sure what needs to happen next to make the transition. He states he continues to deal with "bugs," and is convinced that he is infested. He states "I have warms, if I got any on the furniture, my would have a fit!" He makes several statements that his "cannot be trusted," but is unable to elaborate. He reports 5 separate episodes since April where he "felt paralyzed," several of which occurred during his current hospitalization. He denies feeling emotional or upset when these episodes occur, but per records, reported that his son whom he had not seen for 4 years, was visiting just prior to 1 of the episodes, and it was up setting him. He reports a prodrome where "my head starts shrinking, caving in on me, I just go numb all over." He says he then "blacks out, and I can't move or talk." They last approximately 15 minutes, and symptoms then resolved. Physical Exam Psychiatric Orientation: alert and cooperative Apperance: appropriately dressed and appeared stated age Casually dressed, fair grooming. Missing teeth. Eye Contact: good eye contact Motor Behavior: steady gait and station and no abnormal motor movements Speech: normal rate/rhythm/volume of speech Affect: euthymic affect and mood congruent with affect "Great!" Thought Process: goal directed thought process mild circumstantiality, talkative, not pressured. Thought Content: + delusions (Of insect infestation, and that dry skin/eczema is a result of chemical castillo.) Suicidal Thoughts: denies suicidal thoughts Homicidal Thoughts: denies homicidal thoughts Hallucinations: + visual hallucinations (Reports he continues to find bugs crawling out of his skin.); no auditory hallucinations Cognition: attention grossly intact and language grossly intact Estimated Intelligence: average estimated intelligence Insight: + impaired insight Judgement: + impaired judgement Vital Signs (Past 24 Hours) Last Vital Signs Temp 36.2 C L 07/07/19 06:39 Pulse 97 H 07/07/19 06:40 Resp 18 07/07/19 06:39 BP 129/83 07/07/19 06:40 Pulse Ox 97 07/03/19 06:48 Principal Diagnosis Delusional disorder, somatic type. Intermittent explosive disorder. Conversion disorder. Psychiatric Data The patient was hospitalized for a total of 23 days. He had a complex course, as he initially presented 06/14/2019 and was admitted to the hospitalist service, and transferred to the behavioral health unit on 06/21/2019. 2 days later, he was transferred back to the hospitalist service after an episode of unresponsiveness. He was on the medical floor /01/2020, and then jones sferred back to the [facility], where he remained for the next 12 days. Please see previous discharge summary from 06/23/2023 information about his first hospitalization on the behavioral health unit. Upon return to our unit 06/25/2019, he initially signed in voluntarily, although he did not believe he had a mental illness, he stated he liked the [facility] and the people there so was willing to return. He was continued on risperidone 1 mg 3 times daily, which had been started earlier in his series of hospitalizations. He has extensive medical work-up was reviewed, and heavy metal levels were added. Lead and mercury levels were below threshold, but arsenic was 34. He reported a history of elevated arsenic levels in the past, as well as a history of moonshining, although he denied drinking any alcohol in 3 years. He demonstrated an inability to engage in reality testing or to tolerate any challenging of his delusions of infestation, becoming enraged when he would show bits of lint to staff, insisting they were worms, and staff indicated they did not see any worms. He was placed on an involuntary commitment on 06/27/2019 after he had an interaction with staff wherein he insisted that worms were crawling out of his skin, and became aggressive and threatening when feedback was given. He threatened to "tear up" the inpatient psychiatric unit, to burn down the hospital, and to punch staff in the mouth. Security responded, and he also threatened them with violence. He became progressively more psychotic and paranoid, stating that everyone was "calling [him] a liar," and ultimately received Haldol 5 mg and Ativan 1 mg IM. A family meeting had been scheduled with his and daughter, but had to be postponed due to his agitation. Over the next several days, he continued to have episodes of agitation and threats towards staff, often triggered by discussion of his belief that he was infested with worms as a result of chemical exposure in the past, and perception that people were referring to him as "a liar" when they did not share his belief. Collateral information was obtained from his daughter, who reported that he had always had problems with anger and impulsivity, but had been more aggressive with frequent outbursts over the past year. He had been threatening towards his , and cognitively impaired, more confused and forgetful. He stated that he had had poor interactions with his over the phone, and insisted that he would not be returning home to live with her, but would be going to a supportive living facility in [place], despite reports from his daughter that this was not truly an option. A 303 commitment hearing was held and granted on 07/02/2019. His risperidone was titrated to a total of 6 mg daily in divided doses, which was later decreased to a total of 4 mg daily due to to somnolence. Depakote was added for intermittent explosive disorder, and titrated to 500 mg at bedtime, which he tolerated well. A trough level obtained on the day of discharge was 26. His irritability and anger outbursts resolved, and he became less focused on his delusions of infestation. He took medications as prescribed and reported they were helpful. He was referred to the base service unit for case management services, and psychiatry and therapy were recommended as well. He also had numerous medical specialty appointments, and follow-up was scheduled with his neurologist. He demonstrated evidence of cognitive impairment on the unit, and scored 15/30 on the MoCA. He was advised of recommendations not to drive until he has been assessed by his outpatient physicians (including cardiology and neurology), and indicated understanding. His emotional lability and focus on somatic delusions improved throughout his stay, and by the end of his hospitalization, he was actively participating in groups and therapy, interacting appropriately with staff and peers, with a consistent, euthymic affect. Although he still reported a belief that he was infested with bugs and that this was related to his history of chemical exposure, he was not as focused on this and did not bring it up spontaneously. He was able to tolerate visits from his , and stated willingness to try to work things out with her. He initially had a family meeting with the social studies teacher and his daughter on 06/30/2019, with participating briefly by phone, due to his recent aggressive and threatening behavior toward her. He became noticeably more agitated when his joined the meeting by phone, stating he did not want to return home due to his anger with his . His stated that she would like him to return home, but that he would need to be stable. He externalized blame for his situation and behavior onto others. Concerns about his aggressive and threatening behavior were discussed, including his threats to his , stating he would come home, get the guidance and "there would be bloodshed." His agreed to remove all firearms prior to discharge, and confirmed that that was done on the day of discharge. Over his last few days on the unit, he demonstrated ability to interact with his without anger/threats, as she visited regularly. She reported she felt comfortable with him coming home. Excoriated areas of his skin were healing, and he did not appear to be picking or otherwise causing skin damage. Orthopedic saw him while on the unit for cast removal due to his recent left distal radius fracture. Radiographs showed evidence of potential nonunion, so he was given a brace. The hospitalist/family practice service was consulted after he reported chest pain, and also saw him for assessment of lower extremity edema. He was diagnosed with superficial venous thromboembolism, and started on Xarelto for 45 days. He also completed a 7-day course of Keflex due to concerns for cellulitis. Day of Discharge Assessment Staff report the patient has been attending and participating in groups, social and pleasant with staff and peers. His visited daily over the weekend, and reported to staff that the visits went well, the patient did not appear paranoid, threatening, or angry. He is not bringing up his concerns regarding infestation as often, and does not focused on it when the topic does come up. On my assessment, he states that he is feeling "great," and thinks that being here has been very helpful for him. He continues to report a belief that he is infested with bugs as a result of chemical exposure, but says he understands that other people do not share this belief, and does not focus on it, as "I have other things to think about." He denies picking at his skin or otherwise doing anything to try to extract bugs. He does think that using Eucerin cream has been helpful for his skin. He was informed of the results of his elevated arsenic levels, and reports that he has been told he had arsenic in his blood in the past. He thinks that the last time this was discussed, he was drinking moonshine, but denies that he has drank any alcohol in 3 years. He reports having city water at his home, but states there is a mine site nearby. He is taking medication as prescribed and reports it has been helpful, and states willingness to follow-up with outpatient treatment. He denies thoughts of harming himself or anyone else, and states that he feels calmer and ready to go home, although states he is "going to miss the people here." He has been advised repeatedly of recommendations that he not drive until he has stabilized and been cleared by his outpatient physician, and expresses understanding. Transition of Care Transition Of Care Record: was reviewed with the patient Advance Directives Advance Directives Information Provided: Yes Advance Directives: No Mental Health Advance Directive: No Advance Directives on File: No Living Will: No Power of Signal Maintainer Helper: Yes Power of Signal Maintainer Helper Name: Carline Blanchard/Julienne Mullins (/Daughter) Advance Directives Reason:: Declines as Mental Health Visit. Risk Factors Assessment Risk factors were mitigated by admission to the inpatient unit, use of medications to target psychotic and mood/anger symptoms, involvement in groups and therapy, working on healthy coping skills and discharge safety plan, review of recommendations not to drive until stabilized and cleared by a physician, coordination of care with multiple other clinicians/specialist, elisabeth mcghee to address multiple medical problems, involvement of family (daughter and ), referring him for outpatient mental health treatment (to the [facility] for a [facility] to make further referrals for psychiatry and therapy), and ensuring that guns were removed from the home prior to discharge. He has demonstrated improvement in mood symptoms, irritability, anger outbursts, and delusions, is consistently denying thoughts of harming himself or others, and is interacting appropriately with staff and peers. He is taking medications as prescribed and stating willingness to follow-up with outpatient treatment. He has been able to tolerate visits from his over the past few days, and she states willingness for him to return home. He is no longer at acute risk of harm to himself or others, so can be discharged and managed as an outpatient at this time. He is at chronic elevated risk of harm to others given his history of violence, anger outbursts, and cognitive decline/disinhibition. His remaining risk factors are unlikely to respond to further inpatient treatment at this time. Male: Yes : Yes Do You Have Access To A Gun?: No ( confirmed that all guns have been removed. ) Health Problems: Yes Mental Health Diagnoses: Yes Substance Use Disorders: Yes Previous Attempt: No Previous Psychiatric Hospitalization: Yes Hopelessness: No Smoker: No Protective Factors Assessment Islam Beliefs: No : Yes (But states he is going to file for divorce) Responsible for Young Children: No Employed: No Stable Relationships: No Supportive Family: Yes Tobacco Cessation at Discharge Tobacco Cessation Medication Prescribed at Discharge: Not Applicable/Non-Smoker Total Time Total Time Spent: Greater Than 30 Minutes Total Time Includes: Examination of the patient, Discharge Planning and Medication Reconciliation Discharge Data Consultations 06/29/19 11:12 Consult Hospitalist Routine 06/29/19 11:31 Consult Hospitalist Stat Lab Results 06/25/19 06/26/19 06/26/19 16:58 08:51 08:56 WBC RBC Hgb Hct MCV MCH MCHC RDW Std Deviation RDW Coeff of Gissel Plt Count MPV Immature Gran % (Auto) Neut % (Auto) Lymph % (Auto) [place] % (Auto) Eos % (Auto) Baso % (Auto) Immature Gran # (Auto) Neut # (Auto) Lymph # (Auto) [place] # (Auto) Eos # (Auto) Baso # (Auto) PT INR Sodium Potassium Chloride Carbon Dioxide Anion Gap BUN Creatinine Est Cr Clr Drug Dosing Est GFR ( Amer) Est GFR (Non-Af Amer) BUN/Creatinine Ratio Glucose POC Glucose 167 H 212 H Calcium Magnesium Iron TIBC Transferrin Total Bilirubin Direct Bilirubin AST ALT Alkaline Phosphatase Ammonia Troponin I NT-Pro-B Natriuret Pep Total Protein Albumin Pcrgx-2-Grvidyiagmt Ceruloplasmin Cholesterol Urine Color Urine Appearance Urine pH Ur Specific [place] Urine Protein Urine Glucose (UA) Urine Ketones Urine Blood Urine Nitrite Urine Bilirubin Urine Urobilinogen Ur Leukocyte Esterase Urine WBC (Auto) Urine RBC (Auto) U Hyaline Cast (Auto) U Epithel Cells (Auto) Urine Bacteria (Auto) Acetaminophen Valproic Acid Heavy Metal Source Arsenic Lead Sample Type VENOUS Lead 2 Mercury RAÚL Screen 06/26/19 06/26/19 06/26/19 12:52 17:03 20:59 WBC RBC Hgb Hct MCV MCH MCHC RDW Std Deviation RDW Coeff of Gissel Plt Count MPV Immature Gran % (Auto) Neut % (Auto) Lymph % (Auto) [place] % (Auto) Eos % (Auto) Baso % (Auto) Immature Gran # (Auto) Neut # (Auto) Lymph # (Auto) [place] # (Auto) Eos # (Auto) Baso # (Auto) PT INR Sodium Potassium Chloride Carbon Dioxide Anion Gap BUN Creatinine Est Cr Clr Drug Dosing Est GFR ( Amer) Est GFR (Non-Af Amer) BUN/Creatinine Ratio Glucose POC Glucose 169 H 143 H 131 H Calcium Magnesium Iron TIBC Transferrin Total Bilirubin Direct Bilirubin AST ALT Alkaline Phosphatase Ammonia Troponin I NT-Pro-B Natriuret Pep Total Protein Albumin Iwzuj-6-Iwxbfnapqgz Ceruloplasmin Cholesterol Urine Color Urine Appearance Urine pH Ur Specific [place] Urine Protein Urine Glucose (UA) Urine Ketones Urine Blood Urine Nitrite Urine Bilirubin Urine Urobilinogen Ur Leukocyte Esterase Urine WBC (Auto) Urine RBC (Auto) U Hyaline Cast (Auto) U Epithel Cells (Auto) Urine Bacteria (Auto) Acetaminophen Valproic Acid Heavy Metal Source Arsenic Lead Sample Type Lead Mercury RAÚL Screen 06/27/19 06/27/19 06/27/19 08:40 13:08 14:37 WBC RBC Hgb Hct MCV MCH MCHC RDW Std Deviation RDW Coeff of Gissel Plt Count MPV Immature Gran % (Auto) Neut % (Auto) Lymph % (Auto) [place] % (Auto) Eos % (Auto) Baso % (Auto) Immature Gran # (Auto) Neut # (Auto) Lymph # (Auto) [place] # (Auto) Eos # (Auto) Baso # (Auto) PT INR Sodium Potassium Chloride Carbon Dioxide Anion Gap BUN Creatinine Est Cr Clr Drug Dosing Est GFR ( Amer) Est GFR (Non-Af Amer) BUN/Creatinine Ratio Glucose POC Glucose 163 H 154 H 139 H Calcium Magnesium Iron TIBC Transferrin Total Bilirubin Direct Bilirubin AST ALT Alkaline Phosphatase Ammonia Troponin I NT-Pro-B Natriuret Pep Total Protein Albumin Gcuvv-6-Zzqibkawbmp Ceruloplasmin Cholesterol Urine Color Urine Appearance Urine pH Ur Specific [place] Urine Protein Urine Glucose (UA) Urine Ketones Urine Blood Urine Nitrite Urine Bilirubin Urine Urobilinogen Ur Leukocyte Esterase Urine WBC (Auto) Urine RBC (Auto) U Hyaline Cast (Auto) U Epithel Cells (Auto) Urine Bacteria (Auto) Acetaminophen Valproic Acid Heavy Metal Source Arsenic Lead Sample Type Lead Mercury RAÚL Screen 06/27/19 06/27/19 06/28/19 17:21 21:10 05:33 WBC RBC Hgb Hct MCV MCH MCHC RDW Std Deviation RDW Coeff of Gissel Plt Count MPV Immature Gran % (Auto) Neut % (Auto) Lymph % (Auto) [place] % (Auto) Eos % (Auto) Baso % (Auto) Immature Gran # (Auto) Neut # (Auto) Lymph # (Auto) [place] # (Auto) Eos # (Auto) Baso # (Auto) PT INR Sodium Potassium Chloride Carbon Dioxide Anion Gap BUN Creatinine Est Cr Clr Drug Dosing Est GFR ( Amer) Est GFR (Non-Af Amer) BUN/Creatinine Ratio Glucose POC Glucose 162 H 149 H 181 H Calcium Magnesium Iron TIBC Transferrin Total Bilirubin Direct Bilirubin AST ALT Alkaline Phosphatase Ammonia Troponin I NT-Pro-B Natriuret Pep Total Protein Albumin Almzd-5-Qbfuudmenji Ceruloplasmin Cholesterol Urine Color Urine Appearance Urine pH Ur Specific [place] Urine Protein Urine Glucose (UA) Urine Ketones Urine Blood Urine Nitrite Urine Bilirubin Urine Urobilinogen Ur Leukocyte Esterase Urine WBC (Auto) Urine RBC (Auto) U Hyaline Cast (Auto) U Epithel Cells (Auto) Urine Bacteria (Auto) Acetaminophen Valproic Acid Heavy Metal Source Arsenic Lead Sample Type Lead Mercury RAÚL Screen 06/28/19 06/28/19 06/28/19 08:35 12:27 17:23 WBC RBC Hgb Hct MCV MCH MCHC RDW Std Deviation RDW Coeff of Gissel Plt Count MPV Immature Gran % (Auto) Neut % (Auto) Lymph % (Auto) [place] % (Auto) Eos % (Auto) Baso % (Auto) Immature Gran # (Auto) Neut # (Auto) Lymph # (Auto) [place] # (Auto) Eos # (Auto) Baso # (Auto) PT INR Sodium Potassium Chloride Carbon Dioxide Anion Gap BUN Creatinine Est Cr Clr Drug Dosing Est GFR ( Amer) Est GFR (Non-Af Amer) BUN/Creatinine Ratio Glucose POC Glucose 193 H 146 H 197 H Calcium Magnesium Iron TIBC Transferrin Total Bilirubin Direct Bilirubin AST ALT Alkaline Phosphatase Ammonia Troponin I NT-Pro-B Natriuret Pep Total Protein Albumin Aakls-1-Zvrueoefyxk Ceruloplasmin Cholesterol Urine Color Urine Appearance Urine pH Ur Specific [place] Urine Protein Urine Glucose (UA) Urine Ketones Urine Blood Urine Nitrite Urine Bilirubin Urine Urobilinogen Ur Leukocyte Esterase Urine WBC (Auto) Urine RBC (Auto) U Hyaline Cast (Auto) U Epithel Cells (Auto) Urine Bacteria (Auto) Acetaminophen Valproic Acid Heavy Metal Source Arsenic Lead Sample Type Lead Mercury RAÚL Screen 06/28/19 06/28/19 06/28/19 18:24 18:24 18:24 WBC RBC Hgb Hct MCV MCH MCHC RDW Std Deviation RDW Coeff of Gissel Plt Count MPV Immature Gran % (Auto) Neut % (Auto) Lymph % (Auto) [place] % (Auto) Eos % (Auto) Baso % (Auto) Immature Gran # (Auto) Neut # (Auto) Lymph # (Auto) [place] # (Auto) Eos # (Auto) Baso # (Auto) PT 10.3 INR 1.0 Sodium Potassium Chloride Carbon Dioxide Anion Gap BUN Creatinine Est Cr Clr Drug Dosing Est GFR ( Amer) Est GFR (Non-Af Amer) BUN/Creatinine Ratio Glucose POC Glucose Calcium Magnesium Iron 35 TIBC 308 Transferrin 236 Total Bilirubin 0.3 Direct Bilirubin < 0.1 AST 19 ALT 31 Alkaline Phosphatase 127 H Ammonia Troponin I NT-Pro-B Natriuret Pep Total Protein 6.6 Albumin 3.1 L Ineih-7-Pdlavzkmica Ceruloplasmin Cholesterol 90 Urine Color Urine Appearance Urine pH Ur Specific [place] Urine Protein Urine Glucose (UA) Urine Ketones Urine Blood Urine Nitrite Urine Bilirubin Urine Urobilinogen Ur Leukocyte Esterase Urine WBC (Auto) Urine RBC (Auto) U Hyaline Cast (Auto) U Epithel Cells (Auto) Urine Bacteria (Auto) Acetaminophen < 2 L Valproic Acid Heavy Metal Source Arsenic Lead Sample Type Lead Mercury RAÚL Screen 06/28/19 06/28/19 06/29/19 18:24 20:47 08:03 WBC RBC Hgb Hct MCV MCH MCHC RDW Std Deviation RDW Coeff of Gissel Plt Count MPV Immature Gran % (Auto) Neut % (Auto) Lymph % (Auto) [place] % (Auto) Eos % (Auto) Baso % (Auto) Immature Gran # (Auto) Neut # (Auto) Lymph # (Auto) [place] # (Auto) Eos # (Auto) Baso # (Auto) PT INR Sodium Potassium Chloride Carbon Dioxide Anion Gap BUN Creatinine Est Cr Clr Drug Dosing Est GFR ( Amer) Est GFR (Non-Af Amer) BUN/Creatinine Ratio Glucose POC Glucose 207 H 118 H Calcium Magnesium Iron TIBC Transferrin Total Bilirubin Direct Bilirubin AST ALT Alkaline Phosphatase Ammonia Troponin I NT-Pro-B Natriuret Pep Total Protein Albumin Htmbc-4-Cizwcbtflii 187 Ceruloplasmin 32 Cholesterol Urine Color Urine Appearance Urine pH Ur Specific [place] Urine Protein Urine Glucose (UA) Urine Ketones Urine Blood Urine Nitrite Urine Bilirubin Urine Urobilinogen Ur Leukocyte Esterase Urine WBC (Auto) Urine RBC (Auto) U Hyaline Cast (Auto) U Epithel Cells (Auto) Urine Bacteria (Auto) Acetaminophen Valproic Acid Heavy Metal Source Arsenic Lead Sample Type Lead Mercury RAÚL Screen NEGATIVE 06/29/19 06/29/19 06/29/19 11:08 11:27 12:36 WBC RBC Hgb Hct MCV MCH MCHC RDW Std Deviation RDW Coeff of Gissel Plt Count MPV Immature Gran % (Auto) Neut % (Auto) Lymph % (Auto) [place] % (Auto) Eos % (Auto) Baso % (Auto) Immature Gran # (Auto) Neut # (Auto) Lymph # (Auto) [place] # (Auto) Eos # (Auto) Baso # (Auto) PT INR Sodium 142 Potassium 4.1 Chloride 109 H Carbon Dioxide 26 Anion Gap 7.0 BUN 26 H Creatinine 1.22 Est Cr Clr Drug Dosing 60.4 Est GFR ( Amer) 67.7 Est GFR (Non-Af Amer) 58.5 BUN/Creatinine Ratio 21.4 H Glucose 147 H POC Glucose 241 H Calcium 8.7 Magnesium Iron TIBC Transferrin Total Bilirubin Direct Bilirubin AST ALT Alkaline Phosphatase Ammonia Troponin I < 0.015 NT-Pro-B Natriuret Pep 393 Total Protein Albumin Muxhy-1-Mrycoguiplq Ceruloplasmin Cholesterol Urine Color Urine Appearance Urine pH Ur Specific [place] Urine Protein Urine Glucose (UA) Urine Ketones Urine Blood Urine Nitrite Urine Bilirubin Urine Urobilinogen Ur Leukocyte Esterase Urine WBC (Auto) Urine RBC (Auto) U Hyaline Cast (Auto) U Epithel Cells (Auto) Urine Bacteria (Auto) Acetaminophen Valproic Acid Heavy Metal Source Venous Arsenic 34 H Lead Sample Type Lead 2 Mercury <4 RAÚL Screen 06/29/19 06/29/19 06/29/19 13:21 14:58 17:14 WBC RBC Hgb Hct MCV MCH MCHC RDW Std Deviation RDW Coeff of Gissel Plt Count MPV Immature Gran % (Auto) Neut % (Auto) Lymph % (Auto) [place] % (Auto) Eos % (Auto) Baso % (Auto) Immature Gran # (Auto) Neut # (Auto) Lymph # (Auto) [place] # (Auto) Eos # (Auto) Baso # (Auto) PT INR Sodium Potassium Chloride Carbon Dioxide Anion Gap BUN Creatinine Est Cr Clr Drug Dosing Est GFR ( Amer) Est GFR (Non-Af Amer) BUN/Creatinine Ratio Glucose POC Glucose 131 H 158 H Calcium Magnesium Iron TIBC Transferrin Total Bilirubin Direct Bilirubin AST ALT Alkaline Phosphatase Ammonia Troponin I NT-Pro-B Natriuret Pep Total Protein Albumin Dzafc-2-Ommtapzoqhv Ceruloplasmin Cholesterol Urine Color Yellow Urine Appearance Cloudy A Urine pH 5.0 Ur Specific [place] 1.014 Urine Protein Negative Urine Glucose (UA) Negative Urine Ketones Negative Urine Blood Negative Urine Nitrite Negative Urine Bilirubin Negative Urine Urobilinogen Negative Ur Leukocyte Esterase Negative Urine WBC (Auto) 1-5 Urine RBC (Auto) 0-4 U Hyaline Cast (Auto) 1-5 U Epithel Cells (Auto) 0-5 Urine Bacteria (Auto) Negative Acetaminophen Valproic Acid Heavy Metal Source Arsenic Lead Sample Type Lead Mercury RAÚL Screen 06/29/19 06/30/19 06/30/19 20:43 07:51 17:23 WBC RBC Hgb Hct MCV MCH MCHC RDW Std Deviation RDW Coeff of Gissel Plt Count MPV Immature Gran % (Auto) Neut % (Auto) Lymph % (Auto) [place] % (Auto) Eos % (Auto) Baso % (Auto) Immature Gran # (Auto) Neut # (Auto) Lymph # (Auto) [place] # (Auto) Eos # (Auto) Baso # (Auto) PT INR Sodium Potassium Chloride Carbon Dioxide Anion Gap BUN Creatinine Est Cr Clr Drug Dosing Est GFR ( Amer) Est GFR (Non-Af Amer) BUN/Creatinine Ratio Glucose POC Glucose 226 H 168 H 124 H Calcium Magnesium Iron TIBC Transferrin Total Bilirubin Direct Bilirubin AST ALT Alkaline Phosphatase Ammonia Troponin I NT-Pro-B Natriuret Pep Total Protein Albumin Xtsnl-3-Tttzntmkxwy Ceruloplasmin Cholesterol Urine Color Urine Appearance Urine pH Ur Specific [place] Urine Protein Urine Glucose (UA) Urine Ketones Urine Blood Urine Nitrite Urine Bilirubin Urine Urobilinogen Ur Leukocyte Esterase Urine WBC (Auto) Urine RBC (Auto) U Hyaline Cast (Auto) U Epithel Cells (Auto) Urine Bacteria (Auto) Acetaminophen Valproic Acid Heavy Metal Source Arsenic Lead Sample Type Lead Mercury RAÚL Screen 06/30/19 07/01/19 07/01/19 21:31 07:59 13:00 WBC RBC Hgb Hct MCV MCH MCHC RDW Std Deviation RDW Coeff of Gissel Plt Count MPV Immature Gran % (Auto) Neut % (Auto) Lymph % (Auto) [place] % (Auto) Eos % (Auto) Baso % (Auto) Immature Gran # (Auto) Neut # (Auto) Lymph # (Auto) [place] # (Auto) Eos # (Auto) Baso # (Auto) PT INR Sodium Potassium Chloride Carbon Dioxide Anion Gap BUN Creatinine Est Cr Clr Drug Dosing Est GFR ( Amer) Est GFR (Non-Af Amer) BUN/Creatinine Ratio Glucose POC Glucose 168 H 156 H 185 H Calcium Magnesium Iron TIBC Transferrin Total Bilirubin Direct Bilirubin AST ALT Alkaline Phosphatase Ammonia Troponin I NT-Pro-B Natriuret Pep Total Protein Albumin Qmlnt-9-Arorfidqcqp Ceruloplasmin Cholesterol Urine Color Urine Appearance Urine pH Ur Specific [place] Urine Protein Urine Glucose (UA) Urine Ketones Urine Blood Urine Nitrite Urine Bilirubin Urine Urobilinogen Ur Leukocyte Esterase Urine WBC (Auto) Urine RBC (Auto) U Hyaline Cast (Auto) U Epithel Cells (Auto) Urine Bacteria (Auto) Acetaminophen Valproic Acid Heavy Metal Source Arsenic Lead Sample Type Lead Mercury RAÚL Screen 07/01/19 07/01/19 07/01/19 16:15 16:26 17:23 WBC RBC Hgb Hct MCV MCH MCHC RDW Std Deviation RDW Coeff of Gissel Plt Count MPV Immature Gran % (Auto) Neut % (Auto) Lymph % (Auto) [place] % (Auto) Eos % (Auto) Baso % (Auto) Immature Gran # (Auto) Neut # (Auto) Lymph # (Auto) [place] # (Auto) Eos # (Auto) Baso # (Auto) PT INR Sodium Potassium Chloride Carbon Dioxide Anion Gap BUN Creatinine Est Cr Clr Drug Dosing Est GFR ( Amer) Est GFR (Non-Af Amer) BUN/Creatinine Ratio Glucose POC Glucose 132 H 128 H Calcium Magnesium Iron TIBC Transferrin Total Bilirubin Direct Bilirubin AST ALT Alkaline Phosphatase Ammonia Troponin I NT-Pro-B Natriuret Pep Total Protein Albumin Megct-7-Fitzfppmtij Ceruloplasmin Cholesterol Urine Color Yellow Urine Appearance Clear Urine pH 6.0 Ur Specific [place] 1.012 Urine Protein Negative Urine Glucose (UA) Negative Urine Ketones Negative Urine Blood Negative Urine Nitrite Negative Urine Bilirubin Negative Urine Urobilinogen Negative Ur Leukocyte Esterase Negative Urine WBC (Auto) Urine RBC (Auto) U Hyaline Cast (Auto) U Epithel Cells (Auto) Urine Bacteria (Auto) Acetaminophen Valproic Acid Heavy Metal Source Arsenic Lead Sample Type Lead Mercury RAÚL Screen 07/01/19 07/02/19 07/02/19 20:45 07:44 08:10 WBC RBC Hgb 12.2 L Hct 36.9 L MCV MCH MCHC RDW Std Deviation RDW Coeff of Gissel Plt Count MPV Immature Gran % (Auto) Neut % (Auto) Lymph % (Auto) [place] % (Auto) Eos % (Auto) Baso % (Auto) Immature Gran # (Auto) Neut # (Auto) Lymph # (Auto) [place] # (Auto) Eos # (Auto) Baso # (Auto) PT INR Sodium Potassium Chloride Carbon Dioxide Anion Gap BUN Creatinine Est Cr Clr Drug Dosing Est GFR ( Amer) Est GFR (Non-Af Amer) BUN/Creatinine Ratio Glucose POC Glucose 159 H 165 H Calcium Magnesium Iron TIBC Transferrin Total Bilirubin Direct Bilirubin AST ALT Alkaline Phosphatase Ammonia Troponin I NT-Pro-B Natriuret Pep Total Protein Albumin Lfvqt-5-Ozodfkvhygc Ceruloplasmin Cholesterol Urine Color Urine Appearance Urine pH Ur Specific [place] Urine Protein Urine Glucose (UA) Urine Ketones Urine Blood Urine Nitrite Urine Bilirubin Urine Urobilinogen Ur Leukocyte Esterase Urine WBC (Auto) Urine RBC (Auto) U Hyaline Cast (Auto) U Epithel Cells (Auto) Urine Bacteria (Auto) Acetaminophen Valproic Acid Heavy Metal Source Arsenic Lead Sample Type Lead Mercury RAÚL Screen 07/02/19 07/02/19 07/02/19 08:10 12:12 17:05 WBC RBC Hgb Hct MCV MCH MCHC RDW Std Deviation RDW Coeff of Gissel Plt Count MPV Immature Gran % (Auto) Neut % (Auto) Lymph % (Auto) [place] % (Auto) Eos % (Auto) Baso % (Auto) Immature Gran # (Auto) Neut # (Auto) Lymph # (Auto) [place] # (Auto) Eos # (Auto) Baso # (Auto) PT INR Sodium 140 Potassium 4.0 Chloride 110 H Carbon Dioxide 24 Anion Gap 5.0 BUN 26 H Creatinine 1.23 Est Cr Clr Drug Dosing 59.6 Est GFR ( Amer) 67.1 Est GFR (Non-Af Amer) 57.9 BUN/Creatinine Ratio 21.0 H Glucose 158 H POC Glucose 186 H 158 H Calcium 9.1 Magnesium Iron TIBC Transferrin Total Bilirubin Direct Bilirubin AST ALT Alkaline Phosphatase Ammonia Troponin I NT-Pro-B Natriuret Pep Total Protein Albumin Xovjj-3-Shjtdoyggld Ceruloplasmin Cholesterol Urine Color Urine Appearance Urine pH Ur Specific [place] Urine Protein Urine Glucose (UA) Urine Ketones Urine Blood Urine Nitrite Urine Bilirubin Urine Urobilinogen Ur Leukocyte Esterase Urine WBC (Auto) Urine RBC (Auto) U Hyaline Cast (Auto) U Epithel Cells (Auto) Urine Bacteria (Auto) Acetaminophen Valproic Acid Heavy Metal Source Arsenic Lead Sample Type Lead Mercury RAÚL Screen 07/02/19 07/03/19 07/03/19 20:39 07:21 07:22 WBC RBC Hgb Hct MCV MCH MCHC RDW Std Deviation RDW Coeff of Gissel Plt Count MPV Immature Gran % (Auto) Neut % (Auto) Lymph % (Auto) [place] % (Auto) Eos % (Auto) Baso % (Auto) Immature Gran # (Auto) Neut # (Auto) Lymph # (Auto) [place] # (Auto) Eos # (Auto) Baso # (Auto) PT INR Sodium 139 Potassium 4.1 Chloride 109 H Carbon Dioxide 23 Anion Gap 7.0 BUN 32 H Creatinine 1.25 Est Cr Clr Drug Dosing 59.4 Est GFR ( Amer) 65.8 Est GFR (Non-Af Amer) 56.8 BUN/Creatinine Ratio 25.2 H Glucose 185 H POC Glucose 229 H Calcium 9.0 Magnesium Iron TIBC Transferrin Total Bilirubin Direct Bilirubin AST ALT Alkaline Phosphatase Ammonia Troponin I NT-Pro-B Natriuret Pep Total Protein Albumin Dgbkn-1-Rvfevqrihur Ceruloplasmin Cholesterol Urine Color Urine Appearance Urine pH Ur Specific [place] Urine Protein Urine Glucose (UA) Urine Ketones Urine Blood Urine Nitrite Urine Bilirubin Urine Urobilinogen Ur Leukocyte Esterase Urine WBC (Auto) Urine RBC (Auto) U Hyaline Cast (Auto) U Epithel Cells (Auto) Urine Bacteria (Auto) Acetaminophen Valproic Acid 24 L Heavy Metal Source Arsenic Lead Sample Type Lead Mercury RAÚL Screen 07/03/19 07/03/19 07/03/19 08:07 12:19 17:32 WBC RBC Hgb Hct MCV MCH MCHC RDW Std Deviation RDW Coeff of Gissel Plt Count MPV Immature Gran % (Auto) Neut % (Auto) Lymph % (Auto) [place] % (Auto) Eos % (Auto) Baso % (Auto) Immature Gran # (Auto) Neut # (Auto) Lymph # (Auto) [place] # (Auto) Eos # (Auto) Baso # (Auto) PT INR Sodium Potassium Chloride Carbon Dioxide Anion Gap BUN Creatinine Est Cr Clr Drug Dosing Est GFR ( Amer) Est GFR (Non-Af Amer) BUN/Creatinine Ratio Glucose POC Glucose 152 H 134 H 118 H Calcium Magnesium Iron TIBC Transferrin Total Bilirubin Direct Bilirubin AST ALT Alkaline Phosphatase Ammonia Troponin I NT-Pro-B Natriuret Pep Total Protein Albumin Fftvm-2-Mivelkpqipq Ceruloplasmin Cholesterol Urine Color Urine Appearance Urine pH Ur Specific [place] Urine Protein Urine Glucose (UA) Urine Ketones Urine Blood Urine Nitrite Urine Bilirubin Urine Urobilinogen Ur Leukocyte Esterase Urine WBC (Auto) Urine RBC (Auto) U Hyaline Cast (Auto) U Epithel Cells (Auto) Urine Bacteria (Auto) Acetaminophen Valproic Acid Heavy Metal Source Arsenic Lead Sample Type Lead Mercury RAÚL Screen 07/03/19 07/04/19 07/04/19 20:59 03:45 07:00 WBC RBC Hgb Hct MCV MCH MCHC RDW Std Deviation RDW Coeff of Gsisel Plt Count MPV Immature Gran % (Auto) Neut % (Auto) Lymph % (Auto) [place] % (Auto) Eos % (Auto) Baso % (Auto) Immature Gran # (Auto) Neut # (Auto) Lymph # (Auto) [place] # (Auto) Eos # (Auto) Baso # (Auto) PT INR Sodium 139 Potassium 4.0 Chloride 109 H Carbon Dioxide 23 Anion Gap 6.0 BUN 34 H Creatinine 1.42 H Est Cr Clr Drug Dosing 52.3 Est GFR ( Amer) 56.4 Est GFR (Non-Af Amer) 48.7 BUN/Creatinine Ratio 23.9 H Glucose 162 H POC Glucose 135 H 184 H Calcium 8.9 Magnesium Iron TIBC Transferrin Total Bilirubin Direct Bilirubin AST ALT Alkaline Phosphatase Ammonia Troponin I NT-Pro-B Natriuret Pep Total Protein Albumin Elkry-2-Qxmdtwyubob Ceruloplasmin Cholesterol Urine Color Urine Appearance Urine pH Ur Specific [place] Urine Protein Urine Glucose (UA) Urine Ketones Urine Blood Urine Nitrite Urine Bilirubin Urine Urobilinogen Ur Leukocyte Esterase Urine WBC (Auto) Urine RBC (Auto) U Hyaline Cast (Auto) U Epithel Cells (Auto) Urine Bacteria (Auto) Acetaminophen Valproic Acid Heavy Metal Source Arsenic Lead Sample Type Lead Mercury RAÚL Screen 07/04/19 07/04/19 07/04/19 08:28 09:44 09:44 WBC 6.55 RBC 3.69 L Hgb 11.7 L Hct 35.3 L MCV 95.7 MCH 31.7 MCHC 33.1 RDW Std Deviation 48.5 H RDW Coeff of Gissel 13.9 Plt Count 193 MPV 10.1 Immature Gran % (Auto) 0.3 Neut % (Auto) 81.0 Lymph % (Auto) 8.7 [place] % (Auto) 8.1 Eos % (Auto) 1.7 Baso % (Auto) 0.2 Immature Gran # (Auto) 0.02 Neut # (Auto) 5.31 Lymph # (Auto) 0.57 L [place] # (Auto) 0.53 Eos # (Auto) 0.11 Baso # (Auto) 0.01 PT INR Sodium Potassium Chloride Carbon Dioxide Anion Gap BUN Creatinine Est Cr Clr Drug Dosing Est GFR ( Amer) Est GFR (Non-Af Amer) BUN/Creatinine Ratio Glucose POC Glucose 151 H Calcium Magnesium Iron TIBC Transferrin Total Bilirubin Direct Bilirubin AST ALT Alkaline Phosphatase Ammonia 21.9 Troponin I NT-Pro-B Natriuret Pep Total Protein Albumin Paafv-3-Bwbtyddmfxk Ceruloplasmin Cholesterol Urine Color Urine Appearance Urine pH Ur Specific [place] Urine Protein Urine Glucose (UA) Urine Ketones Urine Blood Urine Nitrite Urine Bilirubin Urine Urobilinogen Ur Leukocyte Esterase Urine WBC (Auto) Urine RBC (Auto) U Hyaline Cast (Auto) U Epithel Cells (Auto) Urine Bacteria (Auto) Acetaminophen Valproic Acid Heavy Metal Source Arsenic Lead Sample Type Lead Mercury RAÚL Screen 07/04/19 07/04/19 07/04/19 09:44 10:25 13:17 WBC RBC Hgb Hct MCV MCH MCHC RDW Std Deviation RDW Coeff of Gissel Plt Count MPV Immature Gran % (Auto) Neut % (Auto) Lymph % (Auto) [place] % (Auto) Eos % (Auto) Baso % (Auto) Immature Gran # (Auto) Neut # (Auto) Lymph # (Auto) [place] # (Auto) Eos # (Auto) Baso # (Auto) PT INR Sodium Potassium Chloride Carbon Dioxide Anion Gap BUN Creatinine Est Cr Clr Drug Dosing Est GFR ( Amer) Est GFR (Non-Af Amer) BUN/Creatinine Ratio Glucose POC Glucose 137 H 210 H Calcium Magnesium Iron TIBC Transferrin Total Bilirubin Direct Bilirubin AST ALT Alkaline Phosphatase Ammonia Troponin I < 0.015 NT-Pro-B Natriuret Pep Total Protein Albumin Ywiqd-2-Bnzyhiblgrm Ceruloplasmin Cholesterol Urine Color Urine Appearance Urine pH Ur Specific [place] Urine Protein Urine Glucose (UA) Urine Ketones Urine Blood Urine Nitrite Urine Bilirubin Urine Urobilinogen Ur Leukocyte Esterase Urine WBC (Auto) Urine RBC (Auto) U Hyaline Cast (Auto) U Epithel Cells (Auto) Urine Bacteria (Auto) Acetaminophen Valproic Acid Heavy Metal Source Arsenic Lead Sample Type Lead Mercury RAÚL Screen 07/04/19 07/04/19 07/05/19 17:32 21:09 09:05 WBC RBC Hgb Hct MCV MCH MCHC RDW Std Deviation RDW Coeff of Gissel Plt Count MPV Immature Gran % (Auto) Neut % (Auto) Lymph % (Auto) [place] % (Auto) Eos % (Auto) Baso % (Auto) Immature Gran # (Auto) Neut # (Auto) Lymph # (Auto) [place] # (Auto) Eos # (Auto) Baso # (Auto) PT INR Sodium Potassium Chloride Carbon Dioxide Anion Gap BUN Creatinine Est Cr Clr Drug Dosing Est GFR ( Amer) Est GFR (Non-Af Amer) BUN/Creatinine Ratio Glucose POC Glucose 140 H 287 H 127 H Calcium Magnesium Iron TIBC Transferrin Total Bilirubin Direct Bilirubin AST ALT Alkaline Phosphatase Ammonia Troponin I NT-Pro-B Natriuret Pep Total Protein Albumin Prtlb-1-Xyzblwdrouf Ceruloplasmin Cholesterol Urine Color Urine Appearance Urine pH Ur Specific [place] Urine Protein Urine Glucose (UA) Urine Ketones Urine Blood Urine Nitrite Urine Bilirubin Urine Urobilinogen Ur Leukocyte Esterase Urine WBC (Auto) Urine RBC (Auto) U Hyaline Cast (Auto) U Epithel Cells (Auto) Urine Bacteria (Auto) Acetaminophen Valproic Acid Heavy Metal Source Arsenic Lead Sample Type Lead Mercury RAÚL Screen 07/05/19 07/05/19 07/05/19 12:12 17:35 20:47 WBC RBC Hgb Hct MCV MCH MCHC RDW Std Deviation RDW Coeff of Gissel Plt Count MPV Immature Gran % (Auto) Neut % (Auto) Lymph % (Auto) [place] % (Auto) Eos % (Auto) Baso % (Auto) Immature Gran # (Auto) Neut # (Auto) Lymph # (Auto) [place] # (Auto) Eos # (Auto) Baso # (Auto) PT INR Sodium Potassium Chloride Carbon Dioxide Anion Gap BUN Creatinine Est Cr Clr Drug Dosing Est GFR ( Amer) Est GFR (Non-Af Amer) BUN/Creatinine Ratio Glucose POC Glucose 180 H 111 H 167 H Calcium Magnesium Iron TIBC Transferrin Total Bilirubin Direct Bilirubin AST ALT Alkaline Phosphatase Ammonia Troponin I NT-Pro-B Natriuret Pep Total Protein Albumin Urutm-5-Wqntmmgtqwo Ceruloplasmin Cholesterol Urine Color Urine Appearance Urine pH Ur Specific [place] Urine Protein Urine Glucose (UA) Urine Ketones Urine Blood Urine Nitrite Urine Bilirubin Urine Urobilinogen Ur Leukocyte Esterase Urine WBC (Auto) Urine RBC (Auto) U Hyaline Cast (Auto) U Epithel Cells (Auto) Urine Bacteria (Auto) Acetaminophen Valproic Acid Heavy Metal Source Arsenic Lead Sample Type Lead Mercury RAÚL Screen 07/06/19 07/06/19 07/06/19 07:25 08:18 13:04 WBC RBC Hgb Hct MCV MCH MCHC RDW Std Deviation RDW Coeff of Gissel Plt Count MPV Immature Gran % (Auto) Neut % (Auto) Lymph % (Auto) [place] % (Auto) Eos % (Auto) Baso % (Auto) Immature Gran # (Auto) Neut # (Auto) Lymph # (Auto) [place] # (Auto) Eos # (Auto) Baso # (Auto) PT INR Sodium 142 Potassium 4.2 Chloride 112 H Carbon Dioxide 25 Anion Gap 5.0 BUN 32 H Creatinine 1.15 Est Cr Clr Drug Dosing 64.4 Est GFR ( Amer) 72.8 Est GFR (Non-Af Amer) 62.8 BUN/Creatinine Ratio 28.1 H Glucose 83 POC Glucose 89 93 Calcium 8.6 Magnesium 2.3 Iron TIBC Transferrin Total Bilirubin Direct Bilirubin AST ALT Alkaline Phosphatase Ammonia Troponin I NT-Pro-B Natriuret Pep Total Protein Albumin Agyqc-9-Gywcpzruphq Ceruloplasmin Cholesterol Urine Color Urine Appearance Urine pH Ur Specific [place] Urine Protein Urine Glucose (UA) Urine Ketones Urine Blood Urine Nitrite Urine Bilirubin Urine Urobilinogen Ur Leukocyte Esterase Urine WBC (Auto) Urine RBC (Auto) U Hyaline Cast (Auto) U Epithel Cells (Auto) Urine Bacteria (Auto) Acetaminophen Valproic Acid Heavy Metal Source Arsenic Lead Sample Type Lead Mercury RAÚL Screen 07/06/19 07/06/19 07/07/19 17:20 20:36 06:48 WBC RBC Hgb Hct MCV MCH MCHC RDW Std Deviation RDW Coeff of Gissel Plt Count MPV Immature Gran % (Auto) Neut % (Auto) Lymph % (Auto) [place] % (Auto) Eos % (Auto) Baso % (Auto) Immature Gran # (Auto) Neut # (Auto) Lymph # (Auto) [place] # (Auto) Eos # (Auto) Baso # (Auto) PT INR Sodium Potassium Chloride Carbon Dioxide Anion Gap BUN Creatinine Est Cr Clr Drug Dosing Est GFR ( Amer) Est GFR (Non-Af Amer) BUN/Creatinine Ratio Glucose POC Glucose 119 H 146 H Calcium Magnesium Iron TIBC Transferrin Total Bilirubin Direct Bilirubin AST ALT Alkaline Phosphatase Ammonia Troponin I NT-Pro-B Natriuret Pep Total Protein Albumin Grqol-7-Pqmdhioynyp Ceruloplasmin Cholesterol Urine Color Urine Appearance Urine pH Ur Specific [place] Urine Protein Urine Glucose (UA) Urine Ketones Urine Blood Urine Nitrite Urine Bilirubin Urine Urobilinogen Ur Leukocyte Esterase Urine WBC (Auto) Urine RBC (Auto) U Hyaline Cast (Auto) U Epithel Cells (Auto) Urine Bacteria (Auto) Acetaminophen Valproic Acid 26 L Heavy Metal Source Arsenic Lead Sample Type Lead Mercury RAÚL Screen 07/07/19 06:48 WBC RBC Hgb Hct MCV MCH MCHC RDW Std Deviation RDW Coeff of Gissel Plt Count MPV Immature Gran % (Auto) Neut % (Auto) Lymph % (Auto) [place] % (Auto) Eos % (Auto) Baso % (Auto) Immature Gran # (Auto) Neut # (Auto) Lymph # (Auto) [place] # (Auto) Eos # (Auto) Baso # (Auto) PT INR Sodium 142 Potassium 3.9 Chloride 112 H Carbon Dioxide 23 Anion Gap 7.0 BUN 28 H Creatinine 1.13 Est Cr Clr Drug Dosing 65.4 Est GFR ( Amer) 74.3 Est GFR (Non-Af Amer) 64.1 BUN/Creatinine Ratio 24.8 H Glucose 83 POC Glucose Calcium 8.9 Magnesium Iron TIBC Transferrin Total Bilirubin Direct Bilirubin AST ALT Alkaline Phosphatase Ammonia Troponin I NT-Pro-B Natriuret Pep Total Protein Albumin Hdusc-6-Ynghvaeyvnb Ceruloplasmin Cholesterol Urine Color Urine Appearance Urine pH Ur Specific [place] Urine Protein Urine Glucose (UA) Urine Ketones Urine Blood Urine Nitrite Urine Bilirubin Urine Urobilinogen Ur Leukocyte Esterase Urine WBC (Auto) Urine RBC (Auto) U Hyaline Cast (Auto) U Epithel Cells (Auto) Urine Bacteria (Auto) Acetaminophen Valproic Acid Heavy Metal Source Arsenic Lead Sample Type Lead Mercury RAÚL Screen Hospital Course (1) Delusional disorder, somatic type: 06/25 -continue risperidone 1 mg 3 times daily. FLP from 06/06/2019 was within normal limits. Fasting glucose 158. -Extensive medical work-up of psychosis and neurological symptoms including: Head CT, brain MRI, EEG, prolactin, PTH, cortisol, RAÚL, RPR, Lyme IgG and IgM, HIV, hepatitis C, Neurology and orthopedic consultations. -Differential includes mood disorder (has displayed manic symptoms) and frontotemporal dementia. -Patient unable to reality test. Continue to offer support and strategies for distress tolerance. -Obtain collateral information and involve family as able. -Encourage patient to attend to participate in groups and therapy. Work on healthy coping skills and discharge safety plan. 06/26 - Continue risperidone and consolidate to 1mg qam and 2mg hs (which may also help with sleep). - Patient very poorly responsive to attempts to reframe his concerns as being influenced by psychological distress, and absolutely unable to reality test. - Recommend family meeting with his and daughter once he is able to tolerate it. is reportedly currently medically ill and quite stressed, and is he has been threatening her, we will postpone this for now. - Refer for outpatient case management services and explore housing options, as he is requesting supportive living referral. 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 It is recognized that this disorder, like all delusional disorders, tend to respond poorly to treatment. In this case, it will be i mportant to avoid persistent reality testing, and the treatment team and I have discussed the fact that while we can and should provide reality testing when the patient escalates, we should not subsequently engage in any form of what might be considered a debate or attempt to convince. 06/28 - Lead level is low (2). - Now on a 302 involuntary commitment after episode of agitation and threatening staff yesterday, related to his delusions. - Delusions continue, risperidone just increased to total of 5mg daily in divided dosing. Start trial of low-dose Depakote for irritability/anger outbursts/agitation -250 mg at bedtime. - Family meeting canceled due to agitation. Will reschedule once he is in better behavioral control. - Continue private room due to agitation and psychosis. 06/29 - Continue private room, as patient continues to have episodes of agitation, and has been making threats towards staff. He is unpredictable and does not respond well to attempts to redirect him. - Check heavy metal screen given his reports of past toxin exposure. - Increase risperidone to 1 mg 3 times daily and 3 mg at bedtime to target ongoing delusions. EKG today showed QTC 414. 06/30 - Patient remains delusional and unable to reality test. He continues to threaten harm to staff, and called his and threatened her. There are still guns in the home, although is working on getting them removed. - File for 303 involuntary commitment due to ongoing psychosis with threats to harm others. - Family meeting scheduled with his daughter and this afternoon. - SW to follow up on BCM referral. 07/01 - Continue current medication regimen presently - patient appears more slowed with mild improvement in insight demonstrated today. He continues to demonstrate delusional thinking, but is far less preoccupied with the presence of bugs during assessment - 303 hearing is scheduled for 07/02 - Pt will require coordination of outpatient services, recommendation is for a BCM referral 07/02 -303 commitment granted. -Refer for BCM and outpatient psychiatric care. -Willing to work on relationship with and attempt to reconcile so that he can return to home at discharge. They will need a family meeting with the social studies teacher. 07/03 - Continue current medication regimen - Valproic acid ordered - subtherapeutic at 24mcg/mL - behavior is more appropriate, less agitated - Tolerated visit from last evening. Continue visits and schedule in- person meeting when appropriate - Will need to continue discussion regarding discharge plans 07/04 -The patient continues to episodically mention his belief that his skin is infected by parasites. However, he is able to hear us when we explained to him that his symptoms of which she complains are related to a combination of dry skin and pruritus. He generally does not bring up the issue of parasites, and when we do explained that we believe that the best explanation is something other than "bugs" he responds by shaking his head no, but otherwise does not object. 07/07 -delusions persist, but patient is much less focused on them. He has not been engaging in self-injurious behavior as a result of his belief of infestation. He is tolerating medication well, and 30-day prescription issued for risperidone 0.5 mg twice daily and 3 mg at bedtime. -Referred to the [facility] for a blended correctional casework specialist, to make referrals for psychiatrist and therapist. (2) Intermittent explosive disorder: 06/29 - patient has a long history of anger problems, with rapid and unpredictable mood changes, and aggressive and threatening behavior. He does not have sufficient mood symptoms to support a bipolar diagnosis, and IED may be the most appropriate diagnosis. He was started on Depakote XR 250 mg at bed time yesterday, and we will titrate as tolerated. 07/02 -order Depakote trough level for tomorrow a.m. Patient has been in better behavioral control. Continue to assist him in identifying coping strategies 07/03 - Valproic acid subtherapeutic at 24mcg/mL - behavior remains improved, less agitated 07/04 -The patient's emotional lability continues to be much better. On several occasions he has begun to escalate, but is able to either catch himself or be easily redirected. His tendency seems to be too make a report that his exaggerated, but reality based, and then with each successive retelling (within the same conversation) the report becomes progressively more expansive. 07/07 -Tolerating Depakote well, trough level today 26. Continue 500 mg at bedtime, prescription for 30-day supply issued. (3) Conversion disorder: 06/25 - address psychosocial stressors, identify healthy coping skills, and provide reassurance and support. - Discussed with Dr. Aparicio, and patient has future unresponsive events, recommended vital signs, blood glucose, and if parameters are normal, contacting the hospitalist to evaluate the patient. - He was seen by orthopedics today, who recommended physical therapy for global weakness. PT consult ordered. 06/27 - The patient tells us that he feels that he is having transient ischemic attacks, and refers to his periods of paralysis and confusion by that name. - In addition to a conversion disorder, it is possible that the patient is experiencing prolonged adverse effects associated with general anesthesia or, as the patient suggests, brief transient ischemic attacks, although as described, these episodes are not typically consistent with TIAs. 07/03 - Additional history obtained, suggesting patient was diagnosed with conversion disorder in 2006; had followed routinely with neurology on an outpatient basis - Recommending continued neurologic follow-up after discharge - Recommending long-term psychiatric intervention - meeting with consistent therapist and psychiatric prescriber to appropriately manage contributing factors - No mention of continued events of numbness or unresponsiveness in several days 07/04 -It is occurred to us that the patient's report of 2 episodes of enuresis, combined with his assertion that "this is never happened to me before!" may be suggestive of conversion symptoms. However, the timing of these episodes, and the fact that they are combined with what appears to be medication induced sedation when appear to be a better explanation. His medications have been a djusted accordingly. (4) Cognitive disorder: 06/30 - cognitively impaired, with a 15/30 on the MoCA today. Unclear if he has been diagnosed with a neurocognitive disorder in the past. 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 He also has a history of alcohol abuse which could be contributing to cognitive dysfunction. We will continue to monitor as his psychosis hopefully improves. -Prior to discharge, we will need to discuss recommendations regarding not driving until he is fully stabilized and is cleared by his physician. He is not yet ready to tolerate this discussion. 07/01 - Will need to discuss driving recommendations at time of discharge, given ongoing psychiatric symptoms and cognitive impairment as above - He did indicate that his software design manager had already advised him not to drive for 10-weeks after his operation on 05/23/2019 - therefore already aware he is not to be driving for a period of time - Will need to follow-up with a more thorough conversation when it seems patient can better tolerate this 07/04 -Today, the patient is able to specifically recall her most recent previous encounterseach of which occurred 7 days ago. Within this context, he recalls some of the things we talked about. He is able to correctly identify his medications and the purposes of each. 07/07 -Follow-up with neurology as scheduled. -Patient and family informed that he is not medically cleared to drive until he has fully stabilized and been assessed and cleared by his outpatient physicians. (5) Arsenic poisonin/20 -arsenic level 34; lead level 2, and mercury <4. Reviewed family medicine consult team, who recommended no further intervention. Reviewed with patient, who states that he has had elevated arsenic levels in the past from unclear etiology. He does report a history of moonshining, but states his last drink was > 3 years ago. He has city water, and reports there is a mine near his home. This could be a cause or contributing factor to his paresthesias. -Follow-up with PCP with appointment tomorrow. (6) Eczematous dermatitis: 06/26 - reviewed dermatology note from 06/04/[address] Mac; patient had last been seen in 03/2019, reported multiple episodes of itching, burning, irritated areas of skin, which had previously responded to IM Kenalog. He received another injection of IM Kenalog, was diagnosed with eczematous dermatitis, and appropriate bathing practices were reviewed. Daily moisturization with Cetaphil cream was recommended, and avoidance of applying anything else to the skin. -Patient has been receiving triamcinolone topically once daily here. Will add Eucerin cream as skin appears dry and irritated. No signs of infection or parasites, although he has multiple areas of excoriation on his lower and upper extremities, face, and neck. 06/27 - As previously noted, the patient tends to draw our attention to patches of irritated skin and eczematous dermatitis, and refer to the associated skin "flaking" as constituting worms or "bugs" that he believes is crawling from his skin. He also experiences tingling and paresthesias that also seem to be contributing to his belief that he is contaminated with parasites. This is not atypical in cases of delusional parasitosis. - Treating the patient's current condition is important within the context of his associated psychiatric complaints. 07/01 - Pt initiated on Keflex 500mg BID for 7 days (7) Fracture of left distal radius: 06/26 - appreciate orthopedic recommendations; cast remains in place, but patient asking to have it removed. 06/29 - cast removed, continue brace. Laboratory work-up for poor healing per Ortho: Iron, TIBC, transferrin all within normal limits. LFTs show alkaline phosphatase 127 (was 96 on admission). Total protein normal, albumin 3.1. Alpha-1 antitrypsin, ceruloplasmin, and RAÚL screen pending. Cholesterol 90. 06/30 - PT consult requested but they have not seen him yet. -Orthopedics is recommending outpatient follow-up in 4 weeks. (8) Hypertension: Continue furosemide 20 mg daily and metoprolol 75 mg twice daily. Continue home dose of Imdur. -Follow-up with software design manager as an outpatient. Her hospitalist discharge summary, he was instructed to follow-up at the [facility] within a week of discharge. (9) Alcohol abuse: History of alcohol abuse, no significant use in the past 3 years. 07/04/19 -The patient tells me today that his has been a sober support for him fo r many years and he indicates that although she sometimes annoys him with her insistence that he not use alcohol, he also notes that he is grateful to her for her help. (10) Vitamin B12 deficiency: Vitamin B12 from 06/15/2019 was 219. Folate 4.16. Vitamin B 1 6. Continue vitamin B12 1000 mcg daily, folic acid 1 mg daily, and thiamine 200 mg twice daily. (11) Diabetes mellitus, type 2: 06/25 -continue heart healthy, carb consistent diabetic diet, and insulin regimen per diabetic pharmacist. 07/04 -Patient acknowledges that he has difficulty making healthy choices consistent with his diabetic diet. At the same time, he was also able to tell us which foods are not consistent with his diet and is able to enumerate the complications associated with diabetes. (12) Stage III chronic kidney disease: 06/19 -creatinine returned to baseline as of 06/24/2019 (1.18); was as high as 1.65 on 06/23/2019. 07/03 - BMP rechecked today: Creatinine remains wnl at 1.25; however BUN remains elevated increased from 26 (07/02/2019) to 32 (07/03/2019) (13) Code status needs review: Patient was DNR/DNI on the medical floor. He voices that he continues to want this. He expresses understanding of this, despite his psychosis. It was documented during other admissions that he was DNR/DNI. He has not been suicidal. (14) Coronary artery disease: 06/29 -reporting chest pain today, difficult to tell how much of his reported symptoms are influenced by psychosis -ordered EKG, vital sign recheck, and blood glucose. -Consulted the hospitalist service, and spoke with Dr. Cunningham. Appreciate assistance and recommendations. 06/30 - Appreciate recommendations from Drs. Fajardo and Pili: Monitor weight, and if trending up, contact them for follow-up. 07/01 - Lasix increased to 40mg daily; I&O's ordered along with daily weights - Pt initiated on Lovenox today, with recommendation to transition to Xarelto 10mg daily for 45 days due to superficial venous thrombosis with evidence of increased blockage - Appreciate recommendations and continued input from hospitalist team 07/02 - Care coordinated with Drs. Frey, Addie, and Bryant. Appreciate their assistance in managing his multiple medical conditions. Andra co-pays $45 a month, which patient indicated is affordable. 07/03 - Appreciate ongoing recommendations from hospitalist team - Continue daily I&O's and weights - Additional recommendations per hospitalist team as indicated Mental Health & Subst Abuse Tx Therapist Name of Therapist: sherley Sharemilker Name of Sharemilker: [facility] Phone Number for Sharemilker: [phone] Date of Appointment with Sharemilker: 07/08/19 Time of Appointment with Sharemilker: 10:30 a.m. Case Management Appointment Comment: Will meet you at your home Post Discharge Appointments Primary Care Physician Name Of Family Doctor: DOUG Moran [facility] Date of Appointment with PCP: 07/08/19 Time of Appointment with PCP: 2:30 pm Provider Appointment Comment: [facility] [place] [address] Home Health Services Home Health Services:: [facility] women services, Physical Therapy and Occupational Therapy Home Health Agency: [facility] Home Health Phone Number of Home Services Agency: [phone] Neurologist Name of Neurologist: DOUG Bañuelos Neurologist's Date of Appointment with Neurologist: 07/31/19 Time of Appointment with Neurologist: 9:00 a.m. Neurology Appointment Comment: [address], [address], [place] [address] Specialist Name of Specialist: DOUG Cardiology Santosh Mejia Phone Number for Specialist: [phone] Time of Appointment with Specialist: They will call you to schedule an appointment for follow-up Specialty Appointment Comment: [facility] office Smoking Cessation Counseling Tobacco Cessation Medication Prescribed at Discharge: Not Applicable/Non-Smoker Contact Information Discharge Discharge Address: [address] [place] [id number] Discharge Plan Discharge Items Patient Disposition: Home - Self-Care Reason For Visit: DELUSIONAL DISORDER NOS Discharge Diagnosis: Delusional disorder, somatic type Intermittent Explosive Disorder Activity: Per Instructions section Driving/Machine Use: No driving until cleared by your physician. Non-emergency contact: Primary Care Provider, Wrap Turner, Neurologist, Psychiatrist, Therapist and Senior Commissary Agent Call non-emergency contact if: you have any medication questions and your symptoms worsen Follow-up/Referrals: ProFox MD [Primary Care Provider] - Diet: Carb Consistent or DM2, Heart Healthy and Low Sodium (2gm) Addtl Attending Provider Instructions: SPECIAL CARE INSTRUCTIONS: 1. Follow through with your scheduled aftercare appointments. If unable to keep an appointment, please call to reschedule. 2. Take your medication only as prescribed. Medication should not be changed or stopped without the approval of your doctor. In the event of worsening symptoms or concerns about side effects, contact your doctor immediately. 3. Utilize new healthy coping skills, anger management skills, and stress management skills learned during your hospitalization. Journal feelings and process them with a support person. Identify stressors or situations that may result in relapse, deterioration or inappropriate behaviors and develop a plan to deal with those issues. 4. If your coping skills are ineffective and you are in crisis, contact your outpatient providers for direction. If unable to reach your providers, please call the CAN HELP LINE AT or go to the closest Emergency Room. 5. Avoid alcohol and un-prescribed drugs. NO DRIVING until you are cleared by your physician. 6. You have been provided with the Mental Health Advance Directives Pamphlet for your review. AFTERCARE APPOINTMENTS: * Please call your insurance company prior to your scheduled appointment to confirm your aftercare providers are covered. Take your insurance information to your appointments. WHO TO CALL AND WHEN: Medical Emergencies: For questions or emergencies related to your hospital stay, please contact the Inpatient Behavioral Health Unit at [phone]. A caustic cresylate shift superintendent is on-call 08/01 for the Behavioral Health Unit for emergencies At any time you feel your situation is an emergency, you may also call 911 immediately. Your Doctors Instructions noted above were prepared by provider Caitlin Robles MD. Superficial Venous Thromboembolism A small blood clot was identified in a superficial vein of your L left leg. Because of the clots proximity to a deep vein, we recommend you take a blood thinner known as Xarelto, 10mg, daily for an additional 38 days. the Xarelto was called into the [facility] pharmacy. Leg Swelling Your legs were periodically swollen throughout your hospital stay. We believe the swelling is from leaky veins in your legs. You were treated with a medication known as "lasix" to help reduce the swelling, as well as compression stockings. Upon discharge, please continue to take Lasix, 20 mg, 1 tab, daily. Please continue to wear your compression stockings during the day. Pending Studies at Discharge: No Stand-Alone Forms: My [facility], Smoking Cessation Medications and DC Order Prescriptions: New risperidone 3 mg Tablet 3 mg PO HS Qty: 30 RF: 0 divalproex 500 mg Tablet Extended Release 24 Hr 500 mg PO HS Qty: 30 RF: 0 risperidone 0.5 mg Tablet 0.5 mg PO [id number] Qty: 60 RF: 0 Xarelto 10 mg Tablet 10 mg PO DAILY@1300 Qty: 38 RF: 0 Continued isosorbide mononitrate 60 mg tablet extended release 24 hr 60 mg PO QAM Qty: 90 RF: 3 atorvastatin [Lipitor] 80 mg tablet 80 mg PO QAM Qty: 90 RF: 3 potassium chloride [K-Tab] 20 mEq tablet extended release 20 meq PO QAM Qty: 90 RF: 3 metoprolol tartrate 75 mg tablet 75 mg PO BID Qty: 60 RF: 2 nitroglycerin [Nitrostat] 0.4 mg tablet, sublingual 0.4 mg SL Q5M PRN (Reason: Chest Pain) Qty: 1 RF: 0 famotidine 40 mg Tablet 40 mg PO QAM 1 Days Qty: 1 RF: 0 Lantus Solostar U-100 Insulin 100 unit/mL (3 mL) insulin pen 30 unit subcut HS RF: 0 sennosides-docusate sodium [Senna with Docusate Sodium] 8.6-50 mg tablet 1 tab PO QAM RF: 0 tramadol [Ultram] 50 mg tablet 50 mg PO Q6H PRN (Reason: pain) RF: 0 acetaminophen [Tylenol Extra Strength] 500 mg tablet 1,000 mg PO Q8H PRN (Reason: Pain) RF: 0 polyethylene glycol 3350 [Miralax] 17 gram/dose powder 17 gm PO QAM RF: 0 topiramate [Topamax] 100 mg tablet 100 mg PO BID RF: 0 pantoprazole 40 mg Tablet,Delayed Release (Dr/Ec) 40 mg PO DAILY RF: 0 fexofenadine 60 mg Tablet 60 mg PO BID Qty: 60 RF: 0 thiamine HCl (vitamin B1) [Vitamin B-1] 100 mg Tablet 200 mg PO BID Qty: 120 RF: 0 aspirin [Ecotrin Low Strength] 81 mg Tablet,Delayed Release (Dr/Ec) 81 mg PO DAILY Qty: 30 RF: 0 triamcinolone acetonide 0.1 % Ointment 1 applic EXT TID 7 Days Qty: 30 RF: 0 folic acid 1 mg Tablet 1 mg PO QAM Qty: 30 RF: 0 cyanocobalamin (vitamin B-12) 1,000 mcg capsule 1,000 mcg PO DAILY Qty: 30 RF: 11 furosemide 20 mg Tablet 20 mg PO QAM Qty: 30 RF: 0 Discontinued risperidone 1 mg tablet,disintegrating 1 mg PO TID RF: 0 No Action (DME) pen needle, diabetic [BD Ultra-Fine Short Pen Needle] 31 gauge x 5/16" needle See Dose Instructions .ROUTE .MEDSUPPLY Qty: 30 RF: 0 Discharge Orders: Discharge Order (Routine); Ordered 07/07/19 Ordered By: Caitlin Rboles Admission Data Admit Date/Time: 06/25/19 13:47 Attending Provider: Caitlin Robles Admit Provider: Caitlin Robles Primary Care Provider: Fox Moran Other Providers: Wil Cunningham ; Zeny Frey Other Interventions: Discharge Summary Assessment (RN) Last Done: 07/07/19 10:34 PSY Interdisciplinary Discharge Planning Last Done: 07/07/19 10:13 DC Date/Time DO NOT enter until pt leaves facility: 07/07/19 11:15 Coding Level of Care Code 33748 D/C day mgmt > 30 min Diagnoses Delusional disorder, somatic type F22 Intermittent explosive disorder F63.81 Conversion disorder F44.9 Cognitive disorder F09 Arsenic poisoning T57.0X1A Eczematous dermatitis L30.9 Fracture of left distal radius S52.502A Hypertension I10 Hypertension type: essential hypertension Alcohol abuse F10.10 Vitamin B12 deficiency E53.8 Diabetes mellitus, type 2 E11.42; Z79.4 Diabetes mellitus complication detail: with polyneuropathy Diabetes mellitus complication status: with neurologic complications Diabetes mellitus termite control representative insulin use: with retirement use Stage III chronic kidney disease N18.3 Code status needs review Coronary artery disease I25.10
--- NOTE | 2019-07-07 10:41 | Discharge Summary ---
Date of Service July 07, 2019 Admission HPI Per Admitting Provider Per H&P 06/14 - 74yo M w/ hx of CAD s/p CABG on 05/23/2019 at [place] who presents with delusional disorder. He was admitted to the hospital from 06/05/2019 to 06/09/2019 with CHF exacerbation. His family reports that he has been taking his Lasix as prescribed; however, he has had less and less urine output per his family. As importantly, they report that he has had increasing delusions since February of this year. Per family, this has never been an issue. In , he was holding down a job and was totally functional. In March, they started noting delusions, and they report it has been getting worse since that time. In the ED, his reported that she no longer feels safe at home. He perseverates on these delusions and if he feels she is contradicting him in any fashion, he will snap at her. This is the main reason they have brought him to the Emergency Department. They deny any inciting event such as a car accident, concussion, emotional trauma, or other event that could have triggered this issue. Today 06/23 patient was seen in consult on BHU. He began to complain of left side numbness. He felt he was having a stroke. He also complained of left chest pain, left flank pain, and loss of vision left side. As we talked his reports of his symptoms became increasingly more acute until he said he was unable to move at all including to lay down. His eyes then rolled back and he fell over on the bed. A code purple was called. Patient maintained a SR and pulse. He had normal BP and VS during this episode. No loss of control of bowel or bladder. He was then transferred to PCU and readmitted to the hospital. Upon reassessment later in the afternoon he was awake and alert, reporting that he had had a stroke and went to [facility]. He was in no distress but continued to complain of left sided numbness and that his "kidney hurt" on the left side. Principal Diagnosis Superficial Venous Thromboembolism Discharge Exam Constitutional WD/WN, vitals as above Eyes PERRL, conjunctivae normal, anicteric sclerae ENMT external ear and nose normal, oropharynx normal Neck normal visual inspection and trachea midline Respiratory normal respiratory effort, lungs clear to auscultation Cardiovascular RRR, no murmur, no edema Heart Sounds: normal S1 and normal S2 Extremities: + pedal edema (tense pitting edema; improved on R compared to yesterday) Gastrointestinal (Abdomen) normal bowel sounds, soft, nontender, no hepatosplenomegaly Psychiatric A+Ox3, euthymic affect Thought Content: + delusions (believes there is begs crawling on his bed and in his GI tract) Discharge Data Allergies Allergy/AdvReac Type Severity Reaction Status Date / Time morphine AdvReac Severe "STOPS MY Verified 06/14/19 08:08 HEART" hydromorphone [From Dilaudid] AdvReac Intermediate unresponsiv Verified 06/14/19 08:08 eness trazodone AdvReac Intermediate GI UPSET Verified 06/14/19 08:08 diazepam AdvReac Mild HALLUCINATE Verified 06/14/19 08:08 S propoxyphene AdvReac Mild DRUG Verified 06/14/19 08:08 INTOLERANCE Consultations 06/29/19 11:12 Consult Hospitalist Routine 06/29/19 11:31 Consult Hospitalist Stat Ordered Studies 06/29/19 12:14 US venous doppler LE LT Urgent 06/30/19 22:01 US venous doppler LE LT Urgent 07/04/19 09:23 CT head/brain wo con Stat Hospital Course (1) Lower extremity edema: 74 yo medically complicated male admitted to psychiatric unit on involuntary admission (303) with L lower extremity edema and erythema, found to have superficial venous thromboembolism. With continued improvement of leg edema and back to baseline mental status. Lower extremity edema - seems to be likely due to venous stasis as swelling is improving with compression stockings and was not made better by increases in Lasix dose. - Echo from 06/25/2019 - normal right ventricular function. - creatinine today 1.15; resume lasix 20mg PO daily. - continued mild activity and compression stockings. - BMP AM. Superficial venous thrombosis: - Venous duplex 07/01 with following impression: extensive superficial venous thrombosis in the greater saphenous vein extending to within 1.5 cm of the saphenofemoral junction, which is increased from prior. - Given proximity to saphenofemoral junction (<5 cm), patient requires anticoagulation. - Xarelto 10mg daily for 45 days. Pharmacy consulted and noted no major contraindications/ interactions with patient's current medication regimen. Case management reports cost of $45 per month; patient confirms this is affordable. Chronic CHF: - daily weights and I/Os ordered. - Resuming lasix today in the setting of resolution of his JUANCARLOS. - Continue metoprolol 75mg BID and isosorbide mononitrate. Cellulitis of LE: - not convinced pt's bilateral redness and swelling is due to cellulitis. More likely due to venous stasis and profound swelling over his hospital course. - However cannot rule out cellulitis, completed 7 day course of Keflex 500 BID. Bilateral Flank pain: - patient does have history of kidney stones, no urinary sxs and pt's back pain alleviated with lido patch. - UAs this admission negative for blood. - pain likely musculoskeletal in origin; continue tylenol and lidocaine patches. CAD s/p recent CABG - Continue aspirin, atorvastatin, metoprolol. DM - continue current regimen. Acute change in mental status: - This admission had episode of catatonia and AMS; extensive workup as below was negative and determined to be a conversion disorder state which the pt recovered from shortly following the episode. - risperidone dosing decreased from 6mg daily to 4mg. - Head CT negative. - EKG with sinus tach at 102 bpm and fusion complexes; no acute ST segment changes . - troponin undetectable. - CBC with normal white count and mild anemia (hgb 11.7). - CXR WNL. - blood cultures obtained and negative to date. Possible cellulitis of lower extremities continuing Keflex for total of 5 days. - valproate level low at 24 on 07/03; repeat 07/07. Code status: DNR/DNI DVT ppx: on Xarelto FEN/GI: Heart Healthy, DM2 diet with sodium and fluid restriction Dispo: Psych unit, for home 07/07/2019 (2) Cellulitis: Discharge Plan Discharge Items Patient Disposition: Home - Self-Care Reason For Visit: DELUSIONAL DISORDER NOS Discharge Diagnosis: Delusional disorder, somatic type Intermittent Explosive Disorder Activity: Per Instructions section Driving/Machine Use: No driving until cleared by your physician. Non-emergency contact: Primary Care Provider, School Plant Consultant, Neurologist, Psychiatrist, Therapist and Flute Polisher Call non-emergency contact if: you have any medication questions and your symptoms worsen Follow-up/Referrals: ProoFx MD [Primary Care Provider] - Diet: Carb Consistent or DM2, Heart Healthy and Low Sodium (2gm) Addtl Attending Provider Instructions: SPECIAL CARE INSTRUCTIONS: 1. Follow through with your scheduled aftercare appointments. If unable to keep an appointment, please call to reschedule. 2. Take your medication only as prescribed. Medication should not be changed or stopped without the approval of your doctor. In the event of worsening symptoms or concerns about side effects, contact your doctor immediately. 3. Utilize new healthy coping skills, anger management skills, and stress management skills learned during your hospitalization. Journal feelings and process them with a support person. Identify stressors or situations that may result in relapse, deterioration or inappropriate behaviors and develop a plan to deal with those issues. 4. If your coping skills are ineffective and you are in crisis, contact your outpatient providers for direction. If unable to reach your providers, please call the CAN HELP LINE AT or go to the closest Emergency Room. 5. Avoid alcohol and un-prescribed drugs. NO DRIVING until you are cleared by your physician. 6. You have been provided with the Mental Health Advance Directives Pamphlet for your review. AFTERCARE APPOINTMENTS: * Please call your insurance company prior to your scheduled appointment to confirm your aftercare providers are covered. Take your insurance information to your appointments. WHO TO CALL AND WHEN: Medical Emergencies: For questions or emergencies related to your hospital stay, please contact the Inpatient Behavioral Health Unit at [phone]. A press box custodian is on-call 08/01 for the Behavioral Health Unit for emergencies At any time you feel your situation is an emergency, you may also call 911 immediately. Your Doctors Instructions noted above were prepared by provider Caitlin Rboles MD. Superficial Venous Thromboembolism A small blood clot was identified in a superficial vein of your L left leg. Because of the clots proximity to a deep vein, we recommend you take a blood thinner known as Xarelto, 10mg, daily for an additional 38 days. the Xarelto was called into the [facility] pharmacy. Leg Swelling Your legs were periodically swollen throughout your hospital stay. We believe the swelling is from leaky veins in your legs. You were treated with a me dication known as "lasix" to help reduce the swelling, as well as compression stockings. Upon discharge, please continue to take Lasix, 20 mg, 1 tab, daily. Please continue to wear your compression stockings during the day. Pending Studies at Discharge: No Stand-Alone Forms: My [facility], Smoking Cessation Medications and DC Order Prescriptions: New risperidone 3 mg Tablet 3 mg PO HS Qty: 30 RF: 0 divalproex 500 mg Tablet Extended Release 24 Hr 500 mg PO HS Qty: 30 RF: 0 risperidone 0.5 mg Tablet 0.5 mg PO [id number] Qty: 60 RF: 0 Xarelto 10 mg Tablet 10 mg PO DAILY@1300 Qty: 38 RF: 0 Continued isosorbide mononitrate 60 mg tablet extended release 24 hr 60 mg PO QAM Qty: 90 RF: 3 atorvastatin [Lipitor] 80 mg tablet 80 mg PO QAM Qty: 90 RF: 3 potassium chloride [K-Tab] 20 mEq tablet extended release 20 meq PO QAM Qty: 90 RF: 3 metoprolol tartrate 75 mg tablet 75 mg PO BID Qty: 60 RF: 2 nitroglycerin [Nitrostat] 0.4 mg tablet, sublingual 0.4 mg SL Q5M PRN (Reason: Chest Pain) Qty: 1 RF: 0 famotidine 40 mg Tablet 40 mg PO QAM 1 Days Qty: 1 RF: 0 Lantus Solostar U-100 Insulin 100 unit/mL (3 mL) insulin pen 30 unit subcut HS RF: 0 sennosides-docusate sodium [Senna with Docusate Sodium] 8.6-50 mg tablet 1 tab PO QAM RF: 0 tramadol [Ultram] 50 mg tablet 50 mg PO Q6H PRN (Reason: pain) RF: 0 acetaminophen [Tylenol Extra Strength] 500 mg tablet 1,000 mg PO Q8H PRN (Reason: Pain) RF: 0 polyethylene glycol 3350 [Miralax] 17 gram/dose powder 17 gm PO QAM RF: 0 topiramate [Topamax] 100 mg tablet 100 mg PO BID RF: 0 pantoprazole 40 mg Tablet,Delayed Release (Dr/Ec) 40 mg PO DAILY RF: 0 fexofenadine 60 mg Tablet 60 mg PO BID Qty: 60 RF: 0 thiamine HCl (vitamin B1) [Vitamin B-1] 100 mg Tablet 200 mg PO BID Qty: 120 RF: 0 aspirin [Ecotrin Low Strength] 81 mg Tablet,Delayed Release (Dr/Ec) 81 mg PO DAILY Qty: 30 RF: 0 triamcinolone acetonide 0.1 % Ointment 1 applic EXT TID 7 Days Qty: 30 RF: 0 folic acid 1 mg Tablet 1 mg PO QAM Qty: 30 RF: 0 cyanocobalamin (vitamin B-12) 1,000 mcg capsule 1,000 mcg PO DAILY Qty: 30 RF: 11 furosemide 20 mg Tablet 20 mg PO QAM Qty: 30 RF: 0 Discontinued risperidone 1 mg tablet,disintegrating 1 mg PO TID RF: 0 No Action (DME) pen needle, diabetic [BD Ultra-Fine Short Pen Needle] 31 gauge x 5/16" needle See Dose Instructions .ROUTE .MEDSUPPLY Qty: 30 RF: 0 Discharge Orders: Discharge Order (Routine); Ordered 07/07/19 Ordered By: Caitlin Robles Admission Data Admit Date/Time: 06/25/19 13:47 Attending Provider: Caitlin Robles Admit Provider: Caitlin Robles Primary Care Provider: Fox Moran Other Providers: Wil Cunningham ; Zeny Frey Other Interventions: Discharge Summary Assessment (RN) Last Done: 07/07/19 10:34 PSY Interdisciplinary Discharge Planning Last Done: 07/07/19 10:13
--- NOTE | 2019-07-07 10:59 | Hospitalist Progress Note ---
Date of Service July 07, 2019 Assessment & Plan (1) Lower extremity edema: 74 yo medically complicated male admitted to psychiatric unit with worsening of L lower extremity edema and erythema, found to have superficial venous thromboembolism. Superficial venous thrombosis - Venous duplex 07/01 with following impression: extensive superficial venous thrombosis in the greater saphenous vein extending to within 1.5 cm of the saphenofemoral junction, which is increased from prior. - given proximity to saphenofemoral junction (<5 cm), patient requires anticoagulation - Xarelto 10mg, daily for total of 45 days (patient currently on day 7 of therapy, will continue for additional 38 days) Lower extremity edema - seems to be dependent from venous stasis, as increase dose in lasix did not result in improvement - albumin mildly low at 3.1 (unlikely to be related to lack of oncotic pressure) - Etiology may be leaky veins vs. increase in hydrostatic pressure (ie obstruction). Last echo from 06/25/2019- normal right ventricle function - compression stockings approved for daytime use in psych unit; advised patient to continue to wear at home during day - creatinine returned to baseline at 1.13 and BUN at 35; restart home lasix dose Chronic CHF - NT-Pro BNP negative on 06/29; CXR from 06/29 without signs of pulmonary edema. While patient is not in florid fluid overload, does have +3 pitting edema in b/l lower extremities - restart home lasix dose as kidney function returned to baseline - fluid restrict to 2L; salt restriction diet Cellulitis of LE - erythema (now bilateral) and warmth on exam concerning for cellulitis - patient completed 7 day course of Keflex Bilateral Flank pain - patient does have history of kidney stones - no urinary sxs at present - UA on 06/29 without blood; UA from 07/01 neg for blood - pain likely musculoskeletal in origin; Tylenol and lidoderm patches prn CAD s/p recent CABG - Continue aspirin, atorvastatin, metoprolol DM - continue current regimen Code status: DNR/DNI DVT ppx: on Xarelto FEN/GI: Heart Healthy, DM2 diet with sodium and fluid restriction Dispo: Psych unit, being discharged home today, 07/07/19 (2) Cellulitis: Supervising Physician Co-Signing Physician Notes case d/w Dr Real, chart reviewed, agree w input and plan. pt was discharged prior to my seeing him, but agree with above. Subjective No acute events overnight. Feeling well. Continue to complain of flank pain; LE edema improved Review of Systems Cardiovascular: + edema Gastrointestinal: Bilateral flank pain Physical Exam Constitutional: WD/WN, vitals as above Eyes: PERRL, conjunctivae normal, anicteric sclerae ENMT: external ear and nose normal, oropharynx normal Neck: normal visual inspection and trachea midline Respiratory: normal respiratory effort, lungs clear to auscultation no cough Auscultation: no crackles, no rales, no rhonchi and no wheezes Cardiovascular: RRR, no murmur, no edema Heart Sounds: normal S1 and normal S2 Extremities: + pedal edema (tense pitting edema b/l; L improved, R worse with overlying erythema) Gastrointestinal (Abdomen): normal bowel sounds, soft, nontender, no hepatosplenomegaly Skin: no rashes, warm and dry Psychiatric: A+Ox3, euthymic affect Thought Content: + delusions (believes there are bugs crawling in his GI tract) Results & Data Vital Signs (Past 12 Hours) Vital Signs Temp Pulse Pulse Pulse Resp BP BP 07/07/19 10:34 36.2 C L 97 H 103 H 94 H 18 129/83 100/62 07/07/19 06:40 97 H 129/83 07/07/19 06:39 36.2 C L 90 18 118/77 BP Pulse Ox 07/07/19 10:34 92/57 L 97 07/07/19 06:40 07/07/19 06:39 Resident Activity Tracking Resident Involvement: Resident Care Provided Care Provided: Adult Hospital Medicine
== END 2019-07-07 11:15 | disposition home or self-care (01) | DRG 885 ==
LOC: 3S 13:47

== ENCOUNTER 2020-05-09 10:16 | Inpatient (IN) ==
[2020-05-09] MEDS ORDERED: CEFEPIME 2,000 MG/20 ML VIAL IV STA (11:04)
--- NOTE | 2020-05-09 11:11 | Emergency Department Note ---
Impression & Plan Weakness, Cellulitis, Failure of outpatient treatment, Left leg pain ED Provider Note NAME: EMANUEL GRANT AGE: 75 SEX: M : 1945 ARRIVES VIA: Walk-In INFORMANT: [Patient] ED PROVIDER(S): [Jonny El MD] CHIEF COMPLAINT: Infection HISTORY OF PRESENT ILLNESS: The patient is a 75-year-old male who states about 5 days ago he awoke with some bleeding from his left lower leg. The area then became erythematous. He went to the wound center 2 days ago and was placed on doxycycline empirically. Wound cultures were done but the results are still pending. Patient states that in the last 24 hours, things have worsened. He has a headache, he has had chills. The redness has worsened and new blisters have opened. He was told by his doctors office today to report to the ED as he might need hospitalization, he is not improving with outpatient care. The patient has had cellulitis before. He states that he was hospitalized at that time. The patient has not had cough, cold or congestion. No Covid exposures. He is not short of breath. No vomiting or diarrhea, no urinary complaints. REVIEW OF SYSTEMS: See HPI for pertinent positives and negatives. A total of ten systems were reviewed and were otherwise negative. PMHx/PSHx: See Below SOCIAL HISTORY: See Below. PHYSICAL EXAM: GENERAL: Patient is in no acute distress. HEENT: No acute trauma, normocephalic atraumatic, mucous membranes moist, no nasal congestion, no scleral icterus. NECK: No stridor, no adenopathy, no meningismus, trachea is midline. LUNGS: Clear to auscultation bilaterally, no wheeze, no rhonchi, breath sounds equal. HEART: Without murmurs gallops or rubs, regular rate and rhythm. ABDOMEN: Soft, nontender, bowel sounds positive, no hernias, no peritonitis. EXTREMITIES: No cyanosis or edema. The patient has some open areas along the left lower extremity anteriorly. No active drainage. There is surrounding erythema and warmth and the area is quite sore to touch. Patient has some open areas to the right lower extremity, there is really no erythema here and no warmth. NEUROLOGIC: Oriented x 3, no acute motor or sensory deficits, no focal weakness. SKIN: No jaundice, no diaphoresis. DIFFERENTIAL DIAGNOSIS: Sepsis, UTI, pneumonia, metabolic, electrolyte abnormalities, cellulitis, failed outpatient treatment, cardiac sources, intracerebral event, toxicologic, neurologic, as well as other pathologies. EMERGENCY DEPARTMENT COURSE/PROCEDURES: ECG: Indication was weakness. The ECG shows a sinus bradycardia with a rate of 56. The QTc is 426. There is a right bundle branch block. 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 Compared to an ECG from 06 February 2020, the findings of potential old lateral infarct are more noticeable. Continuous Cardiac Monitoring: An order was placed for continuous cardiac monitoring. The monitor shows a rate of 55 with sinus bradycardia MEDICAL DECISION MAKING: There is no leukocytosis, in fact, the white count was slightly low at 3.9. There was a normal hemoglobin and platelet count. No coagulopathy. No significant electrolyte abnormality or kidney failure. Lactic acid level was slightly elevated consistent with infection/dehydration. No concerning liver enzyme elevation. Procalcitonin level was not elevated. ECG shows a sinus bradycardia, no acute ischemia. Cardiac enzyme testing x1 is not consistent with acute cardiac injury. Urinalysis does not show infection. Coronavirus testing was negative. Chest film does not show pneumonia or CHF. On exam, the patient had a left lower extremity cellulitis. He was not toxic in appearance. The patient received IV cefepime as empiric antibiotic coverage. He was given oral Tylenol and IV Toradol. He received 1 L of IV saline. The patient has a left lower extremity cellulitis. He now has a headache and is weak. He is not doing well on his oral doxycycline. He is failing outpatient treatment. Patient will be hospitalized for this infection. I did speak to the patient and case management. The on-call hospitalist was consulted. 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 Mejia Nephrolithiasis Neurological deficit present Neuropathy Noninfected skin tear of left lower extremity Osteoarthritis Osteopenia determined by x-ray Raynauds phenomenon Stage III chronic kidney disease Thyroid disorder screening Tubular adenoma of colon Venous (peripheral) insufficiency Vitamin D deficiency Wound of left foot Surgical History History of ankle surgery History of arthroscopy of left knee History of cardiac cath x3-4, last 2014 History of carpal tunnel release of both wrists History of colonoscopy History of heart artery stent (1998) History of lithotripsy x2 History of lumbar discectomy x2 History of open reduction and internal fixation (ORIF) procedure left ankle--hardware in place History of right cataract extraction History of tonsillectomy and adenoidectomy 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) [facility] S/P sinus surgery Status post uvulopalatopharyngoplasty Family History Father Diabetes Prostate cancer Colorectal cancer Brother Prostate cancer Uncle Colorectal cancer Father Myocardial infarction Mother Myocardial infarction Other Dementia No family history of adverse response to anesthesia Denies family history of Ovarian cancer Breast cancer Social History Smoking Status: Former smoker Tobacco Type: Cigarettes Age Quit Using Tobacco: 71; packs per day: 3; Cigarettes Per Day: Camels since 7 years old.; Second Hand Exposure: No; Hx Alcohol Use: Yes (Has not had drink for 3 years) Alcohol type: beer Alcohol type Comment: heavy use until age 71; case beer/day at times Hx Substance Use: No Preferred Language: Telugu Communication Ability: Effective Visual Impairment: No 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 Beliefs That Will Affect Care: None marital status: marital status details: 3 children Current Living Situation: Spouse current occupational status: retired How many Children do You have: 2 other: worked -[employer] ([email or web address]); chemical exposure Feels Safe at Home: Yes Safety Concerns: Feels Safe At This Time Seatbelt Use: always Assistive Devices: Cane and Glasses Allergies Allergies Allergy/AdvReac Type Severity Reaction Status Date / Time morphine AdvReac Severe "STOPS MY Verified 05/09/20 11:17 HEART" hydromorphone [From Dilaudid] AdvReac Intermediate unresponsiv Verified 05/09/20 11:17 eness trazodone AdvReac Intermediate GI UPSET Verified 05/09/20 11:17 diazepam AdvReac Mild HALLUCINATE Verified 05/09/20 11:17 S propoxyphene AdvReac Mild DRUG Verified 05/09/20 11:17 INTOLERANCE Home Meds Home Medications Medication Instructions Recorded Confirmed acetaminophen [Tylenol Extra 1,000 mg PO Q8H PRN 06/05/19 05/09/20 Strength] polyethylene glycol 3350 17 17 gm PO QAM PRN 07/16/19 05/09/20 gram/dose oral powder insulin glargine 100 unit/mL (3 15 - 30 units SUBCUT HS ml 10/23/19 05/09/20 mL) subcutaneous pen insulin lispro 100 unit/mL 5 - 15 units SQ TID ml 10/23/19 05/09/20 subcutaneous pen pimavanserin 34 mg capsule 34 mg PO PM 02/17/20 05/09/20 calcium carbonate-vitamin D3 1 cap PO QAM 03/14/20 05/09/20 triamcinolone acetonide 1 appln TOP BID PRN 03/14/20 05/09/20 clopidogrel 75 mg PO QAM 05/09/20 05/09/20 cyanocobalamin (vitamin B-12) 1,000 mcg PO QAM 05/09/20 05/09/20 [Vitamin B-12] donepezil 10 mg PO QAM 05/09/20 05/09/20 doxycycline hyclate 100 mg PO BID 05/09/20 05/09/20 furosemide 20 mg PO QAM 05/09/20 05/09/20 metoprolol succinate 25 mg PO QAM 05/09/20 05/09/20 olanzapine 5 mg PO HS 05/09/20 05/09/20 pantoprazole 40 mg PO QAM 05/09/20 05/09/20 pentoxifylline 400 mg PO BID 05/09/20 05/09/20 Previous Rx's Medication Instructions Recorded blood-glucose meter #1 ea 10/15/19 lancets #204 ea 10/15/19 potassium chloride 20 mEq 20 meq PO QAM #90 tab 04/29/20 tablet,extended release memantine 10 mg tablet 10 mg PO QPM #90 tab 11/24/19 memantine 5 mg tablet 5 mg PO QAM #90 tab 11/24/19 atorvastatin 40 mg tablet 40 mg PO QAM #90 tab 12/02/19 pen needle, diabetic 31 gauge x #30 ea 02/11/2010/31" blood sugar diagnostic #100 ea 02/18/20 Results & Data (ED) Vital Signs Vital Signs - 24 hr 05/09/20 10:35 05/09/20 11:30 05/09/20 11:39 Temperature 36.9 C Temperature Source Oral Pulse Rate 65 Pulse Rate [Left Finger] 70 Respiratory Rate 24 18 Respiratory Effort / Characteristics Non-Labored Spontaneous Respiratory Depth Normal Respiratory Pattern Regular Blood Pressure 151/81 H Blood Pressure [Left Arm] 146/76 H Blood Pressure Mean 104 Blood Pressure Mean [Left Arm] 99 Blood Pressure Position Sitting Pulse Oximetry 97 96 97 Oxygen Delivery Method Room Air Room Air Room Air Sepsis Recent Fever Within 48 Hours No Sepsis New/Unexplained Change in Mental Status N/A Sepsis Action Taken by Nursing No Action Required 05/09/20 12:47 Temperature Temperature Source Pulse Rate Pulse Rate [Left Finger] 58 L Respiratory Rate 20 Respiratory Effort / Characteristics Respiratory Depth Respiratory Pattern Blood Pressure Blood Pressure [Left Arm] 144/75 H Blood Pressure Mean Blood Pressure Mean [Left Arm] 98 Blood Pressure Position Pulse Oximetry 99 Oxygen Delivery Method Room Air Sepsis Recent Fever Within 48 Hours Sepsis New/Unexplained Change in Mental Status Sepsis Action Taken by Alf Medications Current Medication List: was personally reviewed by me Laboratory Data Attestation: I reviewed the patient's lab results. Result diagrams: 05/09/20 11:20 05/09/20 11:20 Lab Results 05/09/20 05/09/20 05/09/20 Range/Units 11: 11:20 11:20 WBC 3.93 L (4.8-10.8) K/uL RBC 4.65 L (4.7-6.1) M/uL Hgb 14.6 (14.0-18.0) g/dL Hct 43.3 (42-52) % MCV 93.1 (80-100) fL MCH 31.4 (25-34) pg MCHC 33.7 (32-36) g/dL RDW Std Deviation 43.1 (36.4-46.3) fL RDW Coeff of Gissel 12.8 (11.5-14.5) % Plt Count 162 (130-400) K/uL MPV 10.9 H (7.4-10.4) fL Immature Gran % (Auto) 0.3 % Neut % (Auto) 65.6 % Lymph % (Auto) 22.6 % [place] % (Auto) 8.1 % Eos % (Auto) 3.1 % Baso % (Auto) 0.3 % Neut # (Auto) 2.58 (1.4-6.5) K/uL Lymph # (Auto) 0.89 L (1.2-3.4) K/uL [place] # (Auto) 0.32 (0.11-0.59) K/uL Eos # (Auto) 0.12 (0-0.5) K/uL Baso # (Auto) 0.01 (0-0.2) K/uL Immature Gran # (Auto) 0.01 (0.00-0.02) K/uL PT 11.0 (9.0-12.0) Seconds INR 1.0 (0.9-1.1) APTT 26.6 (21.0-31.0) Seconds PTT Ratio 1.0 Sodium (136-145) mmol/L Potassium (3.5-5.1) mmol/L Chloride (98-107) mmol/L Carbon Dioxide (21-32) mmol/L Anion Gap (3-11) BUN (7-18) mg/dl Creatinine (0.6-1.4) mg/dl Est Cr Clr Drug Dosing ml/min Est GFR ( Amer) Est GFR (Non-Af Amer) BUN/Creatinine Ratio (10-20) Glucose (70-99) mg/dl Lactate (0.4-2.0) mmol/L Calcium (8.5-10.1) mg/dl Magnesium (1.8-2.4) mg/dl Total Bilirubin (0.2-1) mg/dl AST (15-37) U/L ALT (12-78) U/L Alkaline Phosphatase (45-117) U/L Troponin I (0-0.045) ng/ml Total Protein (6.4-8.2) gm/dl Albumin (3.4-5.0) gm/dl Globulin (2.5-4.0) gm/dl Albumin/Globulin Ratio (0.9-2) Procalcitonin < 0.05 (0-0.5) ng/ml Urine Color Urine Appearance (Clear) Urine pH (4.5-7.5) Ur Specific [place] (1.000-1.030) Urine Protein (Negative) Urine Glucose (UA) (Negative) Urine Ketones (Negative) Urine Blood (Negative) Urine Nitrite (Negative) Urine Bilirubin (Negative) Urine Urobilinogen (Negative) Ur Leukocyte Esterase (Negative) 05/09/20 05/09/20 05/09/20 Range/Units 11:20 11: 11:50 WBC (4.8-10.8) K/uL RBC (4.7-6.1) M/uL Hgb (14.0-18.0) g/dL Hct (42-52) % MCV (80-100) fL MCH (25-34) pg MCHC (32-36) g/dL RDW Std Deviation (36.4-46.3) fL RDW Coeff of Gissel (11.5-14.5) % Plt Count (130-400) K/uL MPV (7.4-10.4) fL Immature Gran % (Auto) % Neut % (Auto) % Lymph % (Auto) % [place] % (Auto) % Eos % (Auto) % Baso % (Auto) % Neut # (Auto) (1.4-6.5) K/uL Lymph # (Auto) (1.2-3.4) K/uL [place] # (Auto) (0.11-0.59) K/uL Eos # (Auto) (0-0.5) K/uL Baso # (Auto) (0-0.2) K/uL Immature Gran # (Auto) (0.00-0.02) K/uL PT (9.0-12.0) Seconds INR (0.9-1.1) APTT (21.0-31.0) Seconds PTT Ratio Sodium 138 (136-145) mmol/L Potassium 4.1 (3.5-5.1) mmol/L Chloride 106 (98-107) mmol/L Carbon Dioxide 26 (21-32) mmol/L Anion Gap 7.0 (3-11) BUN 19 H (7-18) mg/dl Creatinine 1.17 (0.6-1.4) mg/dl Est Cr Clr Drug Dosing 61.8 ml/min Est GFR ( Amer) 70.8 Est GFR (Non-Af Amer) 61.1 BUN/Creatinine Ratio 16.4 (10-20) Glucose 196 H (70-99) mg/dl Lactate 2.5 H* (0.4-2.0) mmol/L Calcium 8.8 (8.5-10.1) mg/dl Magnesium 1.8 (1.8-2.4) mg/dl Total Bilirubin 0.5 (0.2-1) mg/dl AST 15 (15-37) U/L ALT 18 (12-78) U/L Alkaline Phosphatase 87 (45-117) U/L Troponin I < 0.015 (0-0.045) ng/ml Total Protein 6.6 (6.4-8.2) gm/dl Albumin 3.4 (3.4-5.0) gm/dl Globulin 3.2 (2.5-4.0) gm/dl Albumin/Globulin Ratio 1.1 (0.9-2) Procalcitonin (0-0.5) ng/ml Urine Color Yellow Urine Appearance Clear (Clear) Urine pH 5.0 (4.5-7.5) Ur Specific [place] 1.013 (1.000-1.030) Urine Protein Negative (Negative) Urine Glucose (UA) Negative (Negative) Urine Ketones Negative (Negative) Urine Blood Negative (Negative) Urine Nitrite Negative (Negative) Urine Bilirubin Negative (Negative) Urine Urobilinogen Negative (Negative) Ur Leukocyte Esterase Negative (Negative) Administered Medications Cefazolin Sodium (Ancef 2000mg) 2,000 mg in 15 mls @ 3.75 mls/min IV Q8H NIKOLAI; Protocol Stop: 05/16/20 17:59 Last Admin: 05/09/20 17:55 Dose: 3.75 mls/min Documented by: [id number] Insulin Aspart (Insulin Aspart 100 Units/Ml 3 Ml Pen) 0 units SC ACHS NIKOLAI Stop: 06/08/20 16:29 Last Admin: 05/09/20 17:35 Dose: 3 units Documented by: [id number] Cosigned by: [id number] Tramadol HCl (Tramadol Hcl 50 Mg Tablet) 50 mg PO Q4H PRN PRN Reason: Pain Stop: 06/08/20 14:24 Last Admin: 05/09/20 14:53 Dose: 50 mg Documented by: [id number] Discontinued Medications Acetaminophen (Acetaminophen 500 Mg Tab) 1,000 mg PO NOW STA Stop: 05/09/20 12:10 Last Admin: 05/09/20 12:21 Dose: 1,000 mg Documented by: [id number] Sodium Chloride (Nss 1000ml) 1,000 mls @ 999 mls/hr IV .Q1H1M NIKOLAI Stop: 05/09/20 12:15 Last Infusion: 05/09/20 12:39 Dose: 0 mls/hr Documented by: [id number] Admin: 05/09/20 11:35 Dose: 999 mls/hr Documented by: [id number] Cefepime HCl (Maxipime) 2,000 mg in 20 mls @ 5 mls/min IV NOW STA; Protocol Stop: 05/09/20 11:07 Last Admin: 05/09/20 11:35 Dose: 5 mls/min Documented by: [id number] Vancomycin HCl 2,000 mg/ (Sodium Chloride) 540 mls @ 200 mls/hr IV TODAY@1500 NIKOLAI Stop: 05/09/20 17:41 Last Infusion: 05/09/20 17:53 Dose: 0 mls/hr Documented by: [id number] Admin: 05/09/20 15:12 Dose: 200 mls/hr Documented by: [id number] Ketorolac Tromethamine (Ketorolac Tromethamine 15 Mg/Ml Vial) 15 mg IV NOW STA Stop: 05/09/20 12:10 Last Admin: 05/09/20 12:21 Dose: 15 mg Documented by: [id number] Imaging Data Radiologist's Impression: XR chest 1V portable CLINICAL HISTORY: SEPSIS COMPARISON STUDY: 02/06/2020 FINDINGS: The cardiac and mediastinal contours remain stable. There are postsurgical changes of a midline sternotomy. There is no failure. There is no lobar consolidation. There are no pleural effusions. There is a calcified left upper lobe granuloma. An equivocal 12 mm left perihilar nodule, likely represents a vascular summation. There was no corresponding parenchymal mass on a CT scan performed one year prior. IMPRESSION: 1. 12 mm left perihilar opacity, likely representing a summation 2. No evidence of failure. No evidence of acute parenchymal consolidation Discharge Plan Visit Data Chief Complaint: Infection Stated Complaint: BLISTERS ON LEGS ED Provider: Jonny El Discharge Problem: Weakness, Cellulitis, Failure of outpatient treatment, Left leg pain Patient Disposition: Admitted As Inpatient Condition: Good Discharge Instructions Interventions: ED Discharge Assessment Last Done: 05/09/20 13:59 Discharge Problem: Cellulitis Qualifiers: Site of cellulitis: extremity Site of cellulitis of extremity: lower extremity Laterality: left Qualified Code(s): L03.116 - Cellulitis of left lower limb
[2020-05-09] MEDS ORDERED: SODIUM CHLORIDE 0.9% 1000ML 1,000 ML IV SCH (11:15)
--- NOTE | 2020-05-09 11:39 | XRay Report ---
XR chest 1V portable CLINICAL HISTORY: SEPSIS COMPARISON STUDY: 02/06/2020 FINDINGS: The cardiac and mediastinal contours remain stable. There are postsurgical changes of a mid line sternotomy. There is no failure. There is no lobar consolidation. There are no pleural effusions . There is a calcified left upper lobe granuloma. An equivocal 12 mm left perihilar nodule, likely re presents a vascular summation. There was no corresponding parenchymal mass on a CT scan performed one year prior. IMPRESSION: 1. 12 mm left perihilar opacity, likely representing a summation 2. No evidence of failure. No evidence of acute parenchymal consolidation ACT 112: Negative or not required by law. Electronically signed by: Carlos Salazar M.D. 05/09/2020 11:38 AM
[2020-05-09 11:40] LABS: Basophils # (auto) 0.01 K/uL (0-0.2); Basophils % (auto) 0.3 %; Eosinophils # (auto) 0.12 K/uL (0-0.5); Eosinophils % (auto) 3.1 %; Hematocrit (blood only) 43.3 % (42-52); Hemoglobin 14.6 g/dL (14.0-18.0); Immature Granulocytes # (auto) 0.01 K/uL (0.00-0.02); Immature Granulocytes % (auto) 0.3 %; Lymphocytes # (auto) 0.89 K/uL (1.2-3.4); Lymphocytes % (auto) 22.6 %; Mean Corpuscular Hemoglobin 31.4 pg (25-34); Mean Corpuscular Hgb Conc 33.7 g/dL (32-36); Mean Corpuscular Volume 93.1 fL (80-100); Mean Platelet Volume 10.9 fL (7.4-10.4); Monocytes # (auto) 0.32 K/uL (0.11-0.59); Monocytes % (auto) 8.1 %; Neutrophils # (auto) 2.58 K/uL (1.4-6.5); Neutrophils % (auto) 65.6 %; Platelet Count 162 K/uL (130-400); RDW Coefficient of Variation 12.8 % (11.5-14.5); RDW Standard Deviation 43.1 fL (36.4-46.3); Red Blood Count 4.65 M/uL (4.7-6.1); White Blood Count 3.93 K/uL (4.8-10.8)
[2020-05-09 11:56] LABS: Alanine Aminotransferase 18 U/L (12-78); Albumin Level 3.4 gm/dl (3.4-5.0); Aspartate Aminotransferase 15 U/L (15-37); BUN Creatinine Ratio 16.4 (10-20); Blood Urea Nitrogen 19 mg/dl (7-18); Calcium 8.8 mg/dl (8.5-10.1); Carbon Dioxide 26 mmol/L (21-32); Chloride 106 mmol/L (98-107); Creatinine Clr Calc Pharmacy 61.8 ml/min; Est GFR (African American) 70.8; Est GFR (Non-African American) 61.1; Glucose 196 mg/dl (70-99); Magnesium 1.8 mg/dl (1.8-2.4); Potassium 4.1 mmol/L (3.5-5.1); Sodium 138 mmol/L (136-145)
[2020-05-09 11:57] LABS: Partial Thromboplastin Time 26.6 Seconds (21.0-31.0)
[2020-05-09 12:01] LABS: Albumin Globulin Ratio 1.1 (0.9-2); Alkaline Phosphatase 87 U/L (45-117); Bilirubin,Total 0.5 mg/dl (0.2-1); Globulin 3.2 gm/dl (2.5-4.0); Total Protein 6.6 gm/dl (6.4-8.2); Troponin I < 0.015 ng/ml (0-0.045)
[2020-05-09 12:07] LABS: Appearance Urine Clear (Clear); Bilirubin Urine Negative (Negative); Blood Urine Negative (Negative); Color Urine Yellow; Glucose Urine UA Negative (Negative); Ketones Urine Negative (Negative); Leukocyte Esterase Urine Negative (Negative); Nitrite Urine Negative (Negative); Protein Urine Negative (Negative); Specific Gravity Urine 1.013 (1.000-1.030); Urobilinogen Urine Negative (Negative)
[2020-05-09] MEDS ORDERED: KETOROLAC TROMETHAMINE 15 MG/ML VIAL IV STA (12:09)
[2020-05-09] MEDS ORDERED: ACETAMINOPHEN 500 MG TAB PO STA (12:09)
--- NOTE | 2020-05-09 13:30 | History & Physical Report ---
Date of Service May 09, 2020 Assessment & Plan (1) Cellulitis: Mild area of redness around de-roofed blisters on the left leg. - Continue vanc/cefazolin - Monitor wound culture done in office on 05/07 - Area outlined with marker in the ED - Monitor site - Wound care recs already in the chart; will defer repeat consult (2) Venous stasis ulcers of both lower extremities: Ongoing issues since his CABG in 04/2019. - Wound care as above - Continue pentoxifylline (3) Diabetes mellitus, type 2: A1c was 6.0% in 02/2020. Not on home oral agents. - Using lower home glargine dose at 15 units HS for smaller hospital meals. - Sliding scale insulin (4) CAD in resighini artery: CABG in 04/2019 at [place]. - Continue Plavix, statin (5) Chronic diastolic CHF (congestive heart failure): Follows with [facility] with [facility]. - Continue home Lasix as he appears euvolemic on admission. (6) Hypertension: BP was 145/75 in the ED. - Continue home beta-beto and Lasix (7) Delusional disorder, somatic type: Had a recent 2-month stay in [place] for psychiatric issues, including delusions and threatening behavior. Appears to be doing well at this point in regards to mental health. - Continue home donepezil, memantine, and olanzapine. - Will have to hold home pimavanserin unless someone brings it in for him - Monitor mental status (8) Stage III chronic kidney disease: Baseline Cr ~1.1-1.2, CrCl ~60. - At baseline on presentation. - Monitor Cr, avoid nephrotoxic medications as able (9) History of CVA (cerebrovascular accident): Some confusion here. He reports he had one, and this is mentioned in the PCP's note from 04/30 as possibly having one late in 2019. However, MRI brain w/o contrast from 10/02/2019 shows no prior large vessel infarction. It does show tiny focal areas of old hemorrhage in the left thalamus and right occipital lobes. - Continue Plavix, statin as above (10) DVT prophylaxis: Heparin 5,000 units SQ Q12h History of Present Illness Primary Care Provider: Fox Moran MD 75yo M w/ hx of CAD s/p CABG in 04/2019, CVA, DM, and Parkinsonism who presents with left leg cellulitis. He has had ongoing issues with CHF and chronic venous stasis ulcers. He reports that new blisters broke out on his legs bilaterally. [facility] and on 05/07/2020, he was started on doxycycline and some cultures were taken from the left leg. He reports that the left leg cellulitis area has gotten somewhat larger and that he has had some subjective fevers and chills as well. He called the [facility] and was told to come to the ER for evaluation. He reports circumferential left and right leg pain, though the left is worse since the development of the cellulitis. Otherwise, no major areas of pain. Allergies Allergy/AdvReac Type Severity Reaction Status Date / Time morphine AdvReac Severe "STOPS MY Verified 05/09/20 11:17 HEART" hydromorphone [From Dilaudid] AdvReac Intermediate unresponsiv Verified 05/09/20 11:17 eness trazodone AdvReac Intermediate GI UPSET Verified 05/09/20 11:17 diazepam AdvReac Mild HALLUCINATE Verified 05/09/20 11:17 S propoxyphene AdvReac Mild DRUG Verified 05/09/20 11:17 INTOLERANCE Home Medications Medication Instructions Recorded Confirmed Type acetaminophen [Tylenol Extra 1,000 mg PO Q8H PRN 06/05/19 05/09/20 History Strength] polyethylene glycol 3350 17 17 gm PO QAM PRN 07/16/19 05/09/20 History gram/dose oral powder blood-glucose meter #1 ea 10/15/19 04/30/20 Rx lancets #204 ea 10/15/19 04/30/20 Rx potassium chloride 20 mEq 20 meq PO QAM #90 tab 10/15/19 05/09/20 Rx tablet,extended release insulin glargine 100 unit/mL (3 15 - 30 units SUBCUT HS ml 10/23/19 05/09/20 History mL) subcutaneous pen insulin lispro 100 unit/mL 5 - 15 units SQ TID ml 10/23/19 05/09/20 History subcutaneous pen memantine 10 mg tablet 10 mg PO QPM #90 tab 11/24/19 05/09/20 Rx memantine 5 mg tablet 5 mg PO QAM #90 tab 11/24/19 05/09/20 Rx atorvastatin 40 mg tablet 40 mg PO QAM #90 tab 12/02/19 05/09/20 Rx pen needle, diabetic 31 gauge x #30 ea 02/11/20 04/30/20 Rx 10/31" pimavanserin 34 mg capsule 34 mg PO PM 02/17/20 05/09/20 History blood sugar diagnostic #100 ea 02/18/20 04/30/20 Rx calcium carbonate-vitamin D3 1 cap PO QAM 03/14/20 05/09/20 History triamcinolone acetonide 1 appln TOP BID PRN 03/14/20 05/09/20 History clopidogrel 75 mg PO QAM 05/09/20 05/09/20 History cyanocobalamin (vitamin B-12) 1,000 mcg PO QAM 05/09/20 05/09/20 History [Vitamin B-12] donepezil 10 mg PO QAM 05/09/20 05/09/20 History doxycycline hyclate 100 mg PO BID 05/09/20 05/09/20 History furosemide 20 mg PO QAM 05/09/20 05/09/20 History metoprolol succinate 25 mg PO QAM 05/09/20 05/09/20 History olanzapine 5 mg PO HS 05/09/20 05/09/20 History pantoprazole 40 mg PO QAM 05/09/20 05/09/20 History pentoxifylline 400 mg PO BID 05/09/20 05/09/20 History Past Med/Surg History Medical History (Updated 05/09/20 @ 13:26 by Xavier Aparicio MD) Acute diastolic (congestive) heart failure (06/2019) Arsenic poisoning Asymptomatic cholelithiasis Atypical chest pain Benign colonic polyp CAD in resighini artery Cellulitis Cellulitis of both lower extremities Cognitive disorder Controlled type 2 diabetes mellitus with neurologic complication, with long-term current use of insulin Conversion disorder Delusional disorder, somatic type Diabetes mellitus, type 2 Diabetic peripheral neuropathy Dyslipidemia Eczematous dermatitis Esophageal reflux Fracture of distal end of radius with malunion History of tobacco use Hyperlipidemia Hypertension Intermittent explosive disorder Kidney stone on right side Left wrist fracture Leg edema, right Migraines, neuralgic Myocardial Infarction 2004--follows with Dr. Mejia Nephrolithiasis Neurological deficit present Neuropathy Noninfected skin tear of left lower extremity Osteoarthritis Osteopenia determined by x-ray Raynauds phenomenon Stage III chronic kidney disease Thyroid disorder screening Tubular adenoma of colon Venous (peripheral) insufficiency Vitamin D deficiency Wound of left foot Surgical History History of ankle surgery History of arthroscopy of left knee History of cardiac cath x3-4, last 2014 History of carpal tunnel release of both wrists History of colonoscopy History of heart artery stent (1998) History of lithotripsy x2 History of lumbar discectomy x2 History of open reduction and internal fixation (ORIF) procedure left ankle--hardware in place History of right cataract extraction History of tonsillectomy and adenoidectomy 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) [facility] S/P sinus surgery Status post uvulopalatopharyngoplasty Family History Father Diabetes Prostate cancer Colorectal cancer Brother Prostate cancer Uncle Colorectal cancer Father Myocardial infarction Mother Myocardial infarction Other Dementia No family history of adverse response to anesthesia Denies family history of Ovarian cancer Breast cancer Social History Smoking Status: Former smoker Tobacco Type: Cigarettes Age Quit Using Tobacco: 71; packs per day: 3; Cigarettes Per Day: Camels since 7 years old.; Second Hand Exposure: No; Hx Alcohol Use: Yes (Has not had drink for 3 years) Alcohol type: beer Alcohol type Comment: heavy use until age 71; case beer/day at times Hx Substance Use: No Preferred Language: Albanian Communication Ability: Effective Visual Impairment: No Limitations Fire Tender Required: No Beliefs That Will Affect Care: None marital status: marital status details: 3 children Current Living Situation: Spouse current occupational status: retired How many Children do You have: 2 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: 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); 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 exposure Feels Safe at Home: Yes Safety Concerns: Feels Safe At This Time Seatbelt Use: always Assistive Devices: Cane and Glasses Review of Systems Review of Systems: All systems reviewed & are unremarkable except as noted in HPI & below Physical Exam Constitutional: WD/WN, vitals as above Eyes: EOM intact bilaterally; no conjunctival abnormality ENMT: external ear and nose normal, oropharynx normal Neck: trachea midline, no thyromegaly normal visual inspection Respiratory: normal respiratory effort, lungs clear to auscultation no respiratory distress Cardiovascular: RRR, no murmur, no edema Gastrointestinal (Abdomen): Inspection/Auscultation: abdomen normal to inspection; abdomen not distended Musculoskeletal: no cyanosis or clubbing, extremities motor strength 5/5 Skin: + rash (Cellulitis) and + wound (Bilateral wounds) Neurologic: moves all extremities and awake Psychiatric: Orientation: alert, oriented to person and cooperative Results & Data Results & Data ([facility]) Vital Signs (Past 12 Hours) Vital Signs Temp Pulse Pulse Resp BP BP Pulse Ox 05/09/20 12:47 58 L 20 144/75 H 99 05/09/20 11:39 70 18 146/76 H 97 05/09/20 11:30 96 05/09/20 10:35 36.9 C 65 24 151/81 H 97 Code Status & VTE Plan VTE Prophylaxis Plan VTE Prophylaxis will be ordered: Yes PG Care Time/CCT Total # of Minutes Spent Total Time Spent with Patient: Total time spent is greater than 50% in coordination of care (as documented) at patient's floor/unit and/or counseling patient: Coding Level of Care Code 92657 Initial Inpt Care Lvl 3 Diagnoses Cellulitis L03.90 Venous stasis ulcers of both lower extremities I83.019; I83.029; L97.919; L97.929 Diabetes mellitus, type 2 E11.42; Z79.4 Diabetes mellitus fpc insulin use: with intermediate manager use Diabetes mellitus complication status: with neurologic complications Diabetes mellitus complication detail: with polyneuropathy CAD in resighini artery I25.10 Chronic diastolic CHF (congestive heart failure) I50.32 Hypertension I10 Hypertension type: essential hypertension Delusional disorder, somatic type F22 Stage III chronic kidney disease N18.3 History of CVA (cerebrovascular accident) Z86.73 DVT prophylaxis Z29.9 (1) Hypertension Hypertension type: essential hypertension Qualified Code(s): I10 - Essential (primary) hypertension (2) Diabetes mellitus, type 2 Diabetes mellitus intermediate manager insulin use: with fpc use Diabetes mellitus complication status: with neurologic complications Diabetes mellitus complication detail: with polyneuropathy Qualified Code(s): E11.42 - Type 2 diabetes mellitus with diabetic polyneuropathy; Z79.4 - shelter (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
[2020-05-09] MEDS ORDERED: VANCOMYCIN CONSULT ACTIVE PRN (14:25)
[2020-05-09] MEDS ORDERED: ONDANSETRON INJ 2 MG/ML 2 ML VIAL IV PRN (14:25)
[2020-05-09] MEDS ORDERED: GLUCOSE 10 TABS/TUBE PO PRN (14:25)
[2020-05-09] MEDS ORDERED: DEXTROSE 50% 50 ML SYRINGE IV PRN (14:25)
[2020-05-09] MEDS ORDERED: GLUCOSE 40% GEL 15 GM TUBE PO PRN (14:25)
[2020-05-09] MEDS ORDERED: GLUCAGON FOR INJ 1 MG VIAL SQ PRN (14:25)
[2020-05-09] MEDS ORDERED: ACETAMINOPHEN 325 MG TAB PO PRN (14:25)
[2020-05-09] MEDS ORDERED: CARBOHYDRATES FOR HYPOGLYCEMIA PO PRN (14:25)
[2020-05-09] MEDS ORDERED: POLYETHYLENE (MIRALAX) 17 GM PACK PO PRN (14:25)
[2020-05-09] MEDS: traMADol HCL 50 MG TABLET PO PRN (14:53)
[2020-05-09] MEDS ORDERED: VANCOMYCIN HCL 2,000 MG in SODIUM CHLORIDE 0.9% 500 ML IV SCH (15:00)
--- NOTE | 2020-05-09 15:06 | Pharmacy Report ---
Pharmacy Abx Initial Consult - Date of Service May 09, 2020 - Pharmacy Dosing Scope Date of Consult: 05/09/20 Consultation requested by: Dr. Aparicio Pharmacy is consulted to initiate vancomycin IV dosing therapy, order appropriate labs and adjust drug dose/frequency. - Subjective The patient is a 75 year old M admitted on 05/09/20 13:06. - Objective Height: 5 ft 9 in Weight: 91 kg Vital Signs (Past 12hrs): Vital Signs Temp Pulse Pulse Resp BP BP Pulse Ox 05/09/20 14:20 36.9 C 56 L 16 143/85 H 96 05/09/20 13:49 59 L 16 130/75 98 05/09/20 12:47 58 L 20 144/75 H 99 05/09/20 11:39 70 18 146/76 H 97 05/09/20 11:30 96 05/09/20 10:35 36.9 C 65 24 151/81 H 97 Lab Results (24hrs): Laboratory Tests (24 Hours) 05/09/20 05/09/20 05/09/20 11:20 11:20 11:20 WBC 3.93 L Neut # (Auto) 2.58 Creatinine 1.17 Est Cr Clr Drug Dosing 61.8 Procalcitonin < 0.05 Micro Results: 05/09/20 11:25 Aerobic Blood Culture - Pending Blood Anaerobic Blood Culture - Pending 05/09/20 11:20 Aerobic Blood Culture - Pending Blood Anaerobic Blood Culture - Pending - Assessment & Plan Assessment * 75 year old M receiving vanc + Ancef for cellulitis * Placed on doxy as outpatient a few days ago by [facility] * Wound culture taken 05/07 growing corynebacterium * Blood cultures pending. * Continue broad spectrum abx for 24-48 hours per provider. * CKD Stage III. Patient baseline upon presentation to [facility] Plan Vancomycin IV * Estimated PK Parameters: Vd 0.6 L/kg, J Carlos 0.05 hr-1, t1/2 14 hr * Loading dose: 2000mg (21.9 mg/kg) * Maintenance dose: 1250 mg IV (13.7 mg/kg) every 18 hours * Goal trough level: 10-20 mcg/mL * Trough level ordered for 05/12/20 @1430 * A less than traditional dose and/or extended dosing interval have been selected due to likelihood of drug accumulation in obese patient/patient with CKD Ancef * 2g IV q8h Pharmacy will continue to follow and will adjust dose/frequency as necessary. Thank you.
[2020-05-09] MEDS: INSULIN ASPART 100 UNITS/ML 3 ML PEN SC SCH ×2 (17:35→20:47)
[2020-05-09] MEDS: ceFAZolin 2000MG 2,000 MG/15 ML SYR IV SCH (17:55)
[2020-05-09] MEDS: PENTOXIFYLLINE 400MG EXT REL TAB PO SCH (20:48)
[2020-05-09] MEDS: INSULIN GLARGINE SOLOSTAR 100 UNITS/ML 3 ML PEN SQ SCH (20:48)
[2020-05-09] MEDS: MEMANTINE HCL 10 MG TAB PO SCH (20:48)
[2020-05-09] MEDS: HEPARIN SOD 5,000 UNIT/0.5 ML VIAL SQ SCH (20:48)
[2020-05-09] MEDS ORDERED: OLANZapine 5 MG TABLET PO SCH (21:00)
--- NOTE | 2020-05-09 22:25 | Electrocardiogram Report ---
Test Reason : Blood Pressure : / mmHG Vent. Rate : 056 BPM Atrial Rate : 056 BPM P-R Int : 156 ms QRS Dur : 118 ms QT Int : 442 ms P-R-T Axes : 033 -51 044 degrees QTc Int : 426 ms Sinus bradycardia Left axis deviation Right bundle branch block Inferior infarct Possible Anterolateral infarct Abnormal ECG When compared with ECG of 06-FEB-2020 14:22, QT has shortened Confirmed by Kain Pop ([id number]) on 05/09/2020 10:25:44 PM Referred By: Fox Moran Confirmed By:Kain Pop
[2020-05-10] MEDS: ceFAZolin 2000MG 2,000 MG/15 ML SYR IV SCH ×3 (01:21→18:04)
[2020-05-10] MEDS: traMADol HCL 50 MG TABLET PO PRN ×2 (01:24→15:31)
[2020-05-10 06:54] LABS: Hemoglobin 13.4 g/dL (14.0-18.0); Mean Corpuscular Hemoglobin 30.8 pg (25-34); Mean Corpuscular Hgb Conc 33.5 g/dL (32-36); Platelet Count 141 K/uL (130-400); RDW Coefficient of Variation 12.7 % (11.5-14.5); Red Blood Count 4.35 M/uL (4.7-6.1); White Blood Count 4.05 K/uL (4.8-10.8)
[2020-05-10 07:27] LABS: BUN Creatinine Ratio 13.4 (10-20); Creatinine Clr Calc Pharmacy 56.9 ml/min; Est GFR (African American) 64.1; Est GFR (Non-African American) 55.3; Magnesium 1.9 mg/dl (1.8-2.4); Potassium 3.8 mmol/L (3.5-5.1)
[2020-05-10] MEDS: CLOPIDOGREL BISULFATE 75 MG TAB PO SCH (08:57)
[2020-05-10] MEDS: ATORVASTATIN 40 MG TAB PO SCH (08:57)
[2020-05-10] MEDS: PENTOXIFYLLINE 400MG EXT REL TAB PO SCH ×2 (08:57→20:27)
[2020-05-10] MEDS: MEMANTINE HCL 5 MG TAB PO SCH (08:58)
[2020-05-10] MEDS: METOPROLOL SUCC 25MG EXT REL TAB PO SCH (08:58)
[2020-05-10] MEDS: PANTOprazole 40 MG TAB PO SCH (08:58)
[2020-05-10] MEDS: POTASSIUM CHLORIDE CRTAB 20 MEQ TABCR PO SCH (08:58)
[2020-05-10] MEDS: DONEPEZIL HCL 10 MG TAB PO SCH (08:58)
[2020-05-10] MEDS: FUROSEMIDE 20 MG TAB PO SCH (08:58)
[2020-05-10] MEDS: HEPARIN SOD 5,000 UNIT/0.5 ML VIAL SQ SCH ×2 (08:59→20:28)
[2020-05-10] MEDS: INSULIN ASPART 100 UNITS/ML 3 ML PEN SC SCH ×4 (09:02→20:28)
[2020-05-10] MEDS: VANCOMYCIN HCL 1,250 MG in SODIUM CHLORIDE 0.9% 250 ML IV SCH (09:05)
--- NOTE | 2020-05-10 14:32 | Hospitalist Progress Note ---
Date of Service May 10, 2020 Assessment & Plan (1) Cellulitis: Mild area of redness around de-roofed blisters on the left leg. - Continue vanc/cefazolin - Monitor wound culture done in office on 05/07 - Area outlined with marker in the ED - Site is definitely improving. - Wound care recs already in the chart; will defer repeat consult (2) Venous stasis ulcers of both lower extremities: Ongoing issues since his CABG in 04/2019. Open Bilateral lower leg Venous stasis ulcers causing Cellulitis treated with WOCN consult and IV antibiotics. - Wound care as above - Continue pentoxifylline (3) Diabetes mellitus, type 2: A1c was 6.0% in 02/2020. Not on home oral agents. - Using lower home glargine dose at 15 units HS for smaller hospital meals. - Sliding scale insulin - Sugars 80 - 105. (4) CAD in [place] artery: CABG in 04/2019 at [place]. - Continue Plavix, statin (5) Chronic diastolic CHF (congestive heart failure): Follows with Shaina Kumar with [facility]. - Continue home Lasix as he appears euvolemic on admission. (6) Hypertension: BP was 145/75 in the ED. - Continue home beta-beto and Lasix (7) Delusional disorder, somatic type: Had a recent 2-month stay in [place] for psychiatric issues, including delusions and threatening behavior. Appears to be doing well at this point in regards to mental health. - Continue home donepezil, memantine, and olanzapine. - Will have to hold home pimavanserin unless someone brings it in for him - Monitor mental status (8) Stage III chronic kidney disease: Baseline Cr ~1.1-1.2, CrCl ~60. - At baseline on presentation. - Monitor Cr, avoid nephrotoxic medications as able - Stable. (9) History of CVA (cerebrovascular accident): Some confusion here. He reports he had one, and this is mentioned in the PCP's note from 04/30 as possibly having one late in 2019. However, MRI brain w/o contrast from 10/02/2019 shows no prior large vessel infarction. It does show tiny focal areas of old hemorrhage in the left thalamus and right occipital lobes. - Continue Plavix, statin as above (10) DVT prophylaxis: Heparin 5,000 units SQ Q12h Admission and Anticipated Discharge Date Admission Date: May 09, 2020 Subjective Reports continued pain in the legs bilaterally in a stocking pattern. Reports no fevers/chills, chest pain, shortness of breath, abdominal pain, nausea, or vomiting. Physical Exam Constitutional: WD/WN, vitals as above Eyes: EOM intact bilaterally; no conjunctival abnormality ENMT: external ear and nose normal, oropharynx normal Neck: trachea midline, no thyromegaly normal visual inspection Respiratory: normal respiratory effort, lungs clear to auscultation no respiratory distress Cardiovascular: RRR, no murmur, no edema Gastrointestinal (Abdomen): Inspection/Auscultation: abdomen normal to inspection; abdomen not distended Musculoskeletal: no cyanosis or clubbing, extremities motor strength 5/5 Skin: + rash (Cellulitis) and + wound (Bilateral wounds) Neurologic: moves all extremities and awake Psychiatric: Orientation: alert, oriented to person and cooperative Results & Data Results & Data ([facility]) Vital Signs (Past 12 Hours) Vital Signs Temp Pulse Resp BP Pulse Ox 05/10/20 07:03 36.6 C 62 19 118/79 97 PG Care Time/CCT Total # of Minutes Spent Total Time Spent with Patient: Total time spent is greater than 50% in coordination of care (as documented) at patient's floor/unit and/or counseling patient: Coding Level of Care Code 48277 Subseq Hosp Care Lvl 2 Diagnoses Cellulitis L03.90 Venous stasis ulcers of both lower extremities I83.019; I83.029; L97.919; L97.929 Diabetes mellitus, type 2 E11.42; Z79.4 Diabetes mellitus chcf insulin use: with fly worker use Diabetes mellitus complication status: with neurologic complications Diabetes mellitus complication detail: with polyneuropathy CAD in [place] artery I25.10 Chronic diastolic CHF (congestive heart failure) I50.32 Hypertension I10 Hypertension type: essential hypertension Delusional disorder, somatic type F22 Stage III chronic kidney disease N18.3 History of CVA (cerebrovascular accident) Z86.73 DVT prophylaxis Z29.9 (1) Diabetes mellitus, type 2 Diabetes mellitus chcf insulin use: with fly worker use Diabetes mellitus complication status: with neurologic complications Diabetes mellitus complication detail: with polyneuropathy Qualified Code(s): E11.42 - Type 2 diabetes mellitus with diabetic polyneuropathy; Z79.4 - snf (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
[2020-05-10] MEDS: MEMANTINE HCL 10 MG TAB PO SCH (20:27)
[2020-05-10] MEDS: INSULIN GLARGINE SOLOSTAR 100 UNITS/ML 3 ML PEN SQ SCH ×2 (20:29→20:34)
[2020-05-10] MEDS ORDERED: OLANZAPINE 2.5 MG TAB PO SCH (21:00)
[2020-05-10] MEDS ORDERED: PIMAVANSERIN TARTRATE PO SCH (21:00)
[2020-05-11] MEDS: traMADol HCL 50 MG TABLET PO PRN ×2 (00:31→08:55)
[2020-05-11] MEDS: VANCOMYCIN HCL 1,250 MG in SODIUM CHLORIDE 0.9% 250 ML IV SCH (02:38)
[2020-05-11] MEDS: ceFAZolin 2000MG 2,000 MG/15 ML SYR IV SCH ×2 (02:38→09:01)
[2020-05-11 08:28] LABS: Hematocrit (blood only) 41.7 % (42-52); Mean Corpuscular Hemoglobin 30.7 pg (25-34); Mean Corpuscular Hgb Conc 33.6 g/dL (32-36); Mean Corpuscular Volume 91.4 fL (80-100); Mean Platelet Volume 10.8 fL (7.4-10.4); Platelet Count 141 K/uL (130-400); RDW Coefficient of Variation 12.9 % (11.5-14.5); RDW Standard Deviation 43.2 fL (36.4-46.3); Red Blood Count 4.56 M/uL (4.7-6.1); White Blood Count 4.04 K/uL (4.8-10.8)
[2020-05-11] MEDS: HEPARIN SOD 5,000 UNIT/0.5 ML VIAL SQ SCH (08:45)
[2020-05-11] MEDS: PANTOprazole 40 MG TAB PO SCH (08:45)
[2020-05-11] MEDS: PENTOXIFYLLINE 400MG EXT REL TAB PO SCH (08:45)
[2020-05-11] MEDS: CLOPIDOGREL BISULFATE 75 MG TAB PO SCH (08:46)
[2020-05-11] MEDS: METOPROLOL SUCC 25MG EXT REL TAB PO SCH (08:46)
[2020-05-11] MEDS: ATORVASTATIN 40 MG TAB PO SCH (08:46)
[2020-05-11] MEDS: MEMANTINE HCL 5 MG TAB PO SCH (08:46)
[2020-05-11] MEDS: FUROSEMIDE 20 MG TAB PO SCH (08:46)
[2020-05-11] MEDS: POTASSIUM CHLORIDE CRTAB 20 MEQ TABCR PO SCH (08:46)
[2020-05-11] MEDS: DONEPEZIL HCL 10 MG TAB PO SCH (08:46)
[2020-05-11] MEDS: INSULIN ASPART 100 UNITS/ML 3 ML PEN SC SCH ×2 (08:49→12:51)
[2020-05-11 08:56] LABS: BUN Creatinine Ratio 16.4 (10-20); Calcium 8.8 mg/dl (8.5-10.1); Creatinine Clr Calc Pharmacy 60.7 ml/min; Est GFR (African American) 69.3; Est GFR (Non-African American) 59.8; Magnesium 2.1 mg/dl (1.8-2.4); Potassium 4.1 mmol/L (3.5-5.1)
--- NOTE | 2020-05-11 18:04 | Discharge Summary ---
Date of Service May 11, 2020 Admission HPI Per Admitting Provider 75yo M w/ hx of CAD s/p CABG in 04/2019, CVA, DM, and Parkinsonism who presents with left leg cellulitis. He has had ongoing issues with CHF and chronic venous stasis ulcers. He reports that new blisters broke out on his legs bilaterally. [facility] and on 05/07/2020, he was started on doxycycline and some cultures were taken from the left leg. He reports that the left leg cellulitis area has gotten somewhat larger and that he has had some subjective fevers and chills as well. He called the [facility] and was told to come to the ER for evaluation. He reports circumferential left and right leg pain, though the left is worse since the development of the cellulitis. Otherwise, no major areas of pain. Principal Diagnosis Cellulitis Discharge Exam Constitutional WD/WN, vitals as above Eyes EOM intact bilaterally; no conjunctival abnormality ENMT external ear and nose normal, oropharynx normal Neck trachea midline, no thyromegaly normal visual inspection Respiratory normal respiratory effort, lungs clear to auscultation no respiratory distress Cardiovascular RRR, no murmur, no edema Gastrointestinal (Abdomen) Inspection/Auscultation: abdomen normal to inspection; abdomen not distended Musculoskeletal no cyanosis or clubbing, extremities motor strength 5/5 Skin + rash (Cellulitis) and + wound (Bilateral wounds) Neurologic moves all extremities and awake Psychiatric Orientation: alert, oriented to person and cooperative Discharge Data Allergies Allergy/AdvReac Type Severity Reaction Status Date / Time morphine AdvReac Severe "STOPS MY Verified 05/09/20 11:17 HEART" hydromorphone [From Dilaudid] AdvReac Intermediate unresponsiv Verified 05/09/20 11:17 eness trazodone AdvReac Intermediate GI UPSET Verified 05/09/20 11:17 diazepam AdvReac Mild HALLUCINATE Verified 05/09/20 11:17 S propoxyphene AdvReac Mild DRUG Verified 05/09/20 11:17 INTOLERANCE Consultations 05/09/20 12:11 ED Decision to Admit Stat Hospital Course (1) Cellulitis: Mild area of redness around de-roofed blisters on the left leg. - Continue vanc/cefazolin - Monitor wound culture done in office on 05/07 - Area outlined with marker in the ED - Site is definitely improving. - Wound care recs already in the chart; will defer repeat consult - Discharged on doxycycline (which should work well for corynebacterium per my literature review) and Keflex for Strep spc that maybe wouldn't have been caught. Will see [facility] tomorrow. - The one thing I am wondering is if this is really venous insufficiency vs. an autoimmune issue. He had a large amount of circumferential pain on both legs despite a fairly small area of cellulitis. Would consider venous reflux testing as well as possibly a dermatology referral to see if there is anything else to be done about the blistering. (2) Venous stasis ulcers of both lower extremities: Ongoing issues since his CABG in 04/2019. Open Bilateral lower leg Venous stasis ulcers causing Cellulitis treated with WOCN consult and IV antibiotics. - Wound care as above - Continue pentoxifylline (3) Diabetes mellitus, type 2: A1c was 6.0% in 02/2020. Not on home oral agents. - Using lower home glargine dose at 15 units HS for smaller hospital meals. - Sliding scale insulin - Sugars 80 - 105. (4) CAD in [place] artery: CABG in 04/2019 at [place]. - Continue Plavix, statin (5) Chronic diastolic CHF (congestive heart failure): Follows with [facility] with [facility]. - Continue home Lasix as he appears euvolemic on admission. (6) Hypertension: BP was 145/75 in the ED. - Continue home beta-beto and Lasix (7) Delusional disorder, somatic type: Had a recent 2-month stay in [place] for psychiatric issues, including delusions and threatening behavior. Appears to be doing well at this point in regards to mental health. - Continue home donepezil, memantine, and olanzapine. - Will have to hold home pimavanserin unless someone brings it in for him - Monitor mental status (8) Stage III chronic kidney disease: Baseline Cr ~1.1-1.2, CrCl ~60. - At baseline on presentation. - Monitor Cr, avoid nephrotoxic medications as able - Stable. (9) History of CVA (cerebrovascular accident): Some confusion here. He reports he had one, and this is mentioned in the PCP's note from 04/30 as possibly having one late in 2019. However, MRI brain w/o contrast from 10/02/2019 shows no prior large vessel infarction. It does show tiny focal areas of old hemorrhage in the left thalamus and right occipital lobes. - Continue Plavix, statin as above (10) DVT prophylaxis: Heparin 5,000 units SQ Q12h Total Time Total Time Spent Total Time Spent (In Minutes): 35 Discharge Plan Discharge Items Patient Disposition: Home - Home Health Services Reason For Visit: cellulitis Discharge Diagnosis: Cellulitis Condition on Discharge: Good Activity: Resume your previous activity Non-emergency contact: Primary Care Provider Call non-emergency contact if: your symptoms worsen and your temperature is above 101 Follow-up/Referrals: Fox Moran MD [Primary Care Provider] - 05/18/20 2:15 pm Diet: Heart Healthy Addtl Attending Provider Instructions: Mr. Blanchard, You were admitted to the hospital with an infection of your left souza where you had some blisters form. The blisters are a recurring problem. I have reached out to Dr. Moran and Ms. Kumar to see if we need further investigation into the reason the blisters form. Two thoughts are that this may be venous in nature and that you may need some scans of the veins in your legs to see if they are working properly. The other thought is that this may be an autoimmune issue as you have significant pain with the forming of the blisters. You may need to see a steam table worker to assess this as well. We treated you with IV antibiotics while you were here in the hospital, and the infection improved significantly. We are sending you out on one additional antibiotic. Please follow up with the wound care team tomorrow to closely follow your leg wounds to be sure they do not start to get worse. Please follow up with Dr. Moran in the next few weeks to see if you need further testing. Pending Studies at Discharge: No Stand-Alone Forms: My [employer], Smoking Cessation Medications and DC Order Prescriptions: New cephalexin [Keflex] 500 mg capsule 500 mg PO Q6H 7 Days Qty: 28 RF: 0 Continued memantine 5 mg tablet 5 mg PO QAM Qty: 90 RF: 3 memantine 10 mg tablet 10 mg PO QPM Qty: 90 RF: 3 atorvastatin 40 mg tablet 40 mg PO QAM Qty: 90 RF: 3 (DME) pen needle, diabetic [BD Ultra-Fine Short Pen Needle] 31 gauge x 5/16" needle See Dose Instructions .ROUTE .MEDSUPPLY Qty: 30 RF: 5 (DME) blood sugar diagnostic [OneTouch Ultra Blue Test Strip] Strip See Rx Instructions .ROUTE .MEDSUPPLY Qty: 100 RF: 3 insulin lispro [Humalog KwikPen Insulin] 100 unit/mL insulin pen 5 - 15 units SQ TID RF: 0 potassium chloride [K-Tab] 20 mEq tablet extended release 20 meq PO QAM Qty: 90 RF: 3 (DME) lancets [OneTouch UltraSoft Lancets] Misc See Rx Instructions .ROUTE .MEDSUPPLY Qty: 204 RF: 3 (DME) blood-glucose meter [OneTouch Ultra2 Meter] Kit See Rx Instructions .ROUTE .MEDSUPPLY Qty: 1 RF: 0 Nuplazid 34 mg capsule 34 mg PO PM RF: 0 Lantus Solostar U-100 Insulin 100 unit/mL (3 mL) insulin pen 15 - 30 units subcut HS RF: 0 acetaminophen [Tylenol Extra Strength] 500 mg tablet 1,000 mg PO Q8H PRN (Reason: Pain) RF: 0 polyethylene glycol 3350 [Miralax] 17 gram/dose powder 17 gm PO QAM PRN (Reason: constipation) RF: 0 triamcinolone acetonide 0.5 % cream 1 appln TOP BID PRN (Reason: FLARE UPS) RF: 0 calcium carbonate-vitamin D3 600 mg (1,500 mg)-2,500 unit capsule 1 cap PO QAM RF: 0 olanzapine 5 mg tablet 2.5 mg PO HS RF: 0 cyanocobalamin (vitamin B-12) [Vitamin B-12] 1,000 mcg Tablet 1,000 mcg PO QAM RF: 0 pentoxifylline 400 mg tablet extended release 400 mg PO BID RF: 0 donepezil 10 mg tablet 10 mg PO QAM RF: 0 clopidogrel 75 mg tablet 75 mg PO QAM RF: 0 pantoprazole 40 mg tablet,delayed release (DR/EC) 40 mg PO QAM RF: 0 furosemide 20 mg tablet 20 mg PO QAM RF: 0 metoprolol succinate 25 mg tablet extended release 24 hr 25 mg PO QAM RF: 0 doxycycline hyclate 100 mg tablet 100 mg PO BID RF: 0 Discharge Orders: Discharge Order (Routine); Ordered 05/11/20 Ordered By: Xavier Aparicio Admission Data Admit Date/Time: 05/09/20 13:06 Attending Provider: Xavier Aparicio Admit Provider: Xavier Aparicio Primary Care Provider: Fox Moran Other Providers: Xavier Aparicio ; [facility] Other Interventions: Discharge Summary Assessment (RN) Last Done: 05/11/20 13:10 Coding Level of Care Code D/C Day Management >30 mins Diagnoses Cellulitis L03.90 Venous stasis ulcers of both lower extremities I83.019; I83.029; L97.919; L97.929 Diabetes mellitus, type 2 E11.42; Z79.4 Diabetes mellitus penitentiary insulin use: with penitentiary use Diabetes mellitus complication status: with neurologic complications Diabetes mellitus complication detail: with polyneuropathy CAD in [place] artery I25.10 Chronic diastolic CHF (congestive heart failure) I50.32 Hypertension I10 Hypertension type: essential hypertension Delusional disorder, somatic type F22 Stage III chronic kidney disease N18.3 History of CVA (cerebrovascular accident) Z86.73 DVT prophylaxis Z29.9
[2020-05-12] MEDS ORDERED: VANCOMYCIN TROUGH ONE (14:30)
== END 2020-05-11 14:41 | disposition home health service (06) | DRG 603 ==
LOC: ED 10:16 → 3W 13:06

== ENCOUNTER 2020-08-01 02:14 | Observation (INO) ==
[2020-08-01] MEDS ORDERED: NITROGLYCERIN SL 0.4 MG/TAB TAB SL STA (02:31)
[2020-08-01] MEDS ORDERED: NITROGLYCERIN SL 0.4 MG/TAB TAB SL PRN (02:31)
--- NOTE | 2020-08-01 02:33 | Emergency Department Note ---
Impression & Plan Left-sided chest pain, Headache ED Provider Note Name: EMANUEL GRANT Age: 75 Sex: M Arrives Via: Ambulance Informant: Patient, EMS ED Provider: Best Messina MD Chief Complaint: chest pain Impression: Left sided chest pain headache Medical Decision Makin yr old male with history CABG amongst many other medical comorbidities arrives with a few hours left chest pain with radiation to left shoulder and jaw. Also having a headache which has been ongoing for the last few months without neuro deficits, falls, nor previous evaluation. EKG without ischemia. Looking more comfortable with nitro though headache worse thus iv fentanyl. CXR OK and labs unremarkable including trop. Already had ASA en route by EMS. With negative work-up thus far will hold off on heparin. Headache unclear etiology though no acute findings on CT and he is neuro intact. Prior Medical Record and Triage/Nursing Notes reviewed by Me Additional history obtained from chart Differentials:Cardiac ischemia, aortic dissection, pulmonary embolism, pneumothorax, pneumonia, pericarditis, myocarditis, esophageal rupture, GERD, cholecystitis, pancreatitis, musculoskeletal, as well as other pathologies. Vital Signs: reviewed and remarkable for no significant abnormalities Interventions: snltg, fentanyl iv Labs:Reviewed and remarkable for no significant abnormalities Imaging:X ray results are stated below per my interpretation: Chest: 1 view: No infiltrate, no effusion, normal cardiac border. EKG:Per My Interpretation: Indication Chest Pain Left: NSR 66 bpm, qtc 452 with a RBBB and no ischemia. Compared to EKG 05/09/20, no significant changes. Cardiac/Tele Monitoring: Cardiac Monitoring: An Order was placed for continuous cardiac monitoring. The monitor shows a rate of 60 with a normal sinus rhythm. Consults:Dr Richard FLORES Hospitalist Plan: Disposition:Hospitalization. Condition: Good Prescriptions:none History of Present Illness:75 yr old male arrives for evaluation of chest pain. Patient notes he was feeling well the last few days. This evening a few hours ago he developed substernal chest pressure. Radiates to left shoulder and jaw. Nothing makes better nor worse. No inciting event. Denies trauma, injuries, falls. Denies shob, cough, fevers, chills nausea, vomiting, back pain, abdominal pain, weakness, leg swelling, calf pain, rashes, syncope, nor other symptoms. He does admit a constant headache for the last 2 to 3 months which is worse at night. No neuro deficits nor trauma to head/neck recently. No previous work-up for headache. Denies a history of headaches. EMS gave patient ASA 324mg PO. Patient with extensive cardiac history and previous CABG at [place] May 2019. States that this chest pain is similar to [place] he has had in the past. ROS: See above HPI for pertinent positives & negatives. A total of 10 systems reviewed and were otherwise negative. Past Medical History:See Below Past Surgical History:See Below Family History:See Below Social History:See Below Home Medications:See Below Allergies:morphine, Dilaudid, trazodone, diazepam, propoxyphene Vitals:Blood Pressure: 112/60, Pulse 59, RR 16, T 36.4C, O2 95% on RA Physical Exam: GENERAL: Patient is anxious appearing and in mild distress. EYES: No scleral icterus, unremarkable pupils. ENT: Mucous membranes moist, no nasal congestion. NECK: No masses appreciated, nomeningismus, trachea is midline. RESPIRATORY: No dyspnea. Clear to auscultation and equal bilaterally. No wheeze, no rhonchi. CARDIOVASCULAR: Regular rate and rhythm.No murmurs, rubs, gallops appreciated. GASTROINTESTINAL: Abdomen soft, non-tender, no peritonitis.Bowel sounds positive.No masses appreciated. BACK: No midline tenderness, no CVA tenderness EXTREMITIES: Normal motion all extremities, no cyanosis, no edema. NEUROLOGIC: Alert and oriented, no acute motor or sensory deficits, no focal weakness, cranial nerves grossly intact. SKIN: No rash, no jaundice, no diaphoresis. PSYCH: Appropriate GCS: 15 ED Course: Times/Reassessments: gradually improving chest pain and headache. 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 Mejia Nephrolithiasis Neurological deficit present Neuropathy Noninfected skin tear of left lower extremity Osteoarthritis Osteopenia determined by x-ray Raynauds phenomenon Stage III chronic kidney disease Thyroid disorder screening Tubular adenoma of colon Venous (peripheral) insufficiency Vitamin D deficiency Wound of left foot Surgical History History of ankle surgery History of arthroscopy of left knee History of cardiac cath x3-4, last 2014 History of carpal tunnel release of both wrists History of colonoscopy History of heart artery stent (1998) History of lithotripsy x2 History of lumbar discectomy x2 History of open reduction and internal fixation (ORIF) procedure left ankle--hardware in place History of right cataract extraction History of tonsillectomy and adenoidectomy 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) [facility] S/P sinus surgery Status post uvulopalatopharyngoplasty Family History Father Diabetes Prostate cancer Colorectal cancer Brother Prostate cancer Uncle Colorectal cancer Father Myocardial infarction Mother Myocardial infarction Other Dementia No family history of adverse response to anesthesia Denies family history of Ovarian cancer Breast cancer Social History Smoking Status: Former smoker Tobacco Type: Cigarettes Age Quit Using Tobacco: 71; packs per day: 3; Cigarettes Per Day: Camels since 7 years old.; Second Hand Exposure: No; Hx Alcohol Use: Yes (Has not had drink for 3 years) Alcohol type: beer Alcohol type Comment: heavy use until age 71; case beer/day at times Hx Substance Use: No Preferred Language: Burkinan Communication Ability: Effective Visual Impairment: No Limitations Port Surveyor Required: No Beliefs That Will Affect Care: None marital status: marital status details: 3 children Current Living Situation: Spouse current occupational status: retired How many Children do You have: 2 other: worked -[employer]); chemical exposure Feels Safe at Home: Yes Seatbelt Use: always Assistive Devices: Cane Allergies Allergies Allergy/AdvReac Type Severity Reaction Status Date / Time morphine AdvReac Severe "STOPS MY Verified 08/01/20 03:00 HEART" hydromorphone [From Dilaudid] AdvReac Intermediate unresponsiv Verified 08/01/20 03:00 eness trazodone AdvReac Intermediate GI UPSET Verified 08/01/20 03:00 diazepam AdvReac Mild HALLUCINATE Verified 08/01/20 03:00 S propoxyphene AdvReac Mild DRUG Verified 08/01/20 03:00 INTOLERANCE Home Meds Home Medications Medication Instructions Recorded Confirmed acetaminophen [Tylenol Extra 1,000 mg PO Q8H PRN 06/05/19 08/01/20 Strength] polyethylene glycol 3350 17 17 gm PO QAM 07/16/19 08/01/20 gram/dose oral powder calcium carbonate-vitamin D3 1 cap PO QAM 03/14/20 08/01/20 clopidogrel 75 mg PO QAM 05/09/20 08/01/20 cyanocobalamin (vitamin B-12) 1,000 mcg PO QAM 05/09/20 08/01/20 [Vitamin B-12] donepezil 10 mg PO QAM 05/09/20 08/01/20 metoprolol succinate 25 mg PO QAM 05/09/20 08/01/20 olanzapine 2.5 mg PO HS 05/09/20 08/01/20 pantoprazole 40 mg PO QAM 05/09/20 08/01/20 pentoxifylline 400 mg PO BID 05/09/20 08/01/20 furosemide 20 mg tablet 20 mg PO QAM tab 05/31/20 08/01/20 insulin lispro 100 unit/mL 10 - 20 unit SQ TID ml 07/01/20 08/01/20 subcutaneous pen Previous Rx's Medication Instructions Recorded blood-glucose meter #1 ea 10/15/19 lancets #204 ea 10/15/19 potassium chloride 20 mEq 20 meq PO QAM #90 tab 10/15/19 tablet,extended release memantine 10 mg tablet 10 mg PO QPM #90 tab 11/24/19 memantine 5 mg tablet 5 mg PO QAM #90 tab 11/24/19 atorvastatin 40 mg tablet 40 mg PO QAM #90 tab 12/02/19 pen needle, diabetic 31 gauge x #30 ea 02/11/2010/31" insulin glargine 100 unit/mL (3 45 unit SUBCUT HS #45 ml 06/30/20 mL) subcutaneous pen blood sugar diagnostic #100 ea 07/05/20 pimavanserin 34 mg capsule 34 mg PO PM 30 Days #30 cap 07/21/20 Results & Data (ED) Vital Signs Vital Signs - 24 hr 08/01/20 02:18 08/01/20 02:30 08/01/20 02:45 Temperature 36.4 C L Temperature Source Oral Pulse Rate 61 62 66 Pulse Rate [Apical] Pulse Rhythm Regular Pulse Rhythm [Apical] Pulse Strength Normal Pulse Strength [Apical] Respiratory Rate 22 16 20 Respiratory Effort / Characteristics Non-Labored Respiratory Depth Normal Respiratory Pattern Regular Blood Pressure 139/76 150/81 H 120/67 Blood Pressure [Right Arm] Blood Pressure Mean 97 104 84 Blood Pressure Mean [Right Arm] Blood Pressure Position Lying Blood Pressure Position [Right Arm] Pulse Oximetry 97 95 91 Oxygen Delivery Method Room Air Sepsis Recent Fever Within 48 Hours No Sepsis New/Unexplained Change in Mental Status N/A Sepsis Action Taken by Nursing No Action Required 08/01/20 03:00 08/01/20 03:24 08/01/20 03:25 Temperature Temperature Source Pulse Rate 65 63 Pulse Rate [Apical] 64 Pulse Rhythm Pulse Rhythm [Apical] Regular Pulse Strength Pulse Strength [Apical] Normal Respiratory Rate 20 16 16 Respiratory Effort / Characteristics Non-Labored Respiratory Depth Normal Respiratory Pattern Regular Blood Pressure 116/72 114/68 Blood Pressure [Right Arm] 114/68 Blood Pressure Mean 86 83 Blood Pressure Mean [Right Arm] 83 Blood Pressure Position Blood Pressure Position [Right Arm] Lying Pulse Oximetry 93 94 95 Oxygen Delivery Method Room Air Sepsis Recent Fever Within 48 Hours Sepsis New/Unexplained Change in Mental Status Sepsis Action Taken by Nursing 08/01/20 04:00 08/01/20 05:00 08/01/20 05:30 Temperature Temperature Source Pulse Rate 72 68 59 L Pulse Rate [Apical] Pulse Rhythm Pulse Rhythm [Apical] Pulse Strength Pulse Strength [Apical] Respiratory Rate 16 20 16 Respiratory Effort / Characteristics Respiratory Depth Respiratory Pattern Blood Pressure 127/63 118/70 112/60 Blood Pressure [Right Arm] Blood Pressure Mean 84 86 77 Blood Pressure Mean [Right Arm] Blood Pressure Position Blood Pressure Position [Right Arm] Pulse Oximetry 94 94 95 Oxygen Delivery Method Sepsis Recent Fever Within 48 Hours Sepsis New/Unexplained Change in Mental Status Sepsis Action Taken by Nursing Laboratory Data Result diagrams: 08/01/20 02:25 08/01/20 02:25 Lab Results 08/01/20 08/01/20 08/01/20 Range/Units 02:25 02:25 02:25 WBC 4.69 L (4.8-10.8) K/uL RBC 4.39 L (4.7-6.1) M/uL Hgb 13.6 L (14.0-18.0) g/dL Hct 39.6 L (42-52) % MCV 90.2 (80-100) fL MCH 31.0 (25-34) pg MCHC 34.3 (32-36) g/dL RDW Std Deviation 45.0 (36.4-46.3) fL RDW Coeff of Gissel 13.6 (11.5-14.5) % Plt Count 200 (130-400) K/uL MPV 10.2 (7.4-10.4) fL Immature Gran % (Auto) 1.1 % Neut % (Auto) 62.9 % Lymph % (Auto) 23.2 % [place] % (Auto) 9.8 % Eos % (Auto) 2.8 % Baso % (Auto) 0.2 % Neut # (Auto) 2.95 (1.4-6.5) K/uL Lymph # (Auto) 1.09 L (1.2-3.4) K/uL [place] # (Auto) 0.46 (0.11-0.59) K/uL Eos # (Auto) 0.13 (0-0.5) K/uL Baso # (Auto) 0.01 (0-0.2) K/uL Immature Gran # (Auto) 0.05 H (0.00-0.02) K/uL PT 10.1 (9.0-12.0) Seconds INR 1.0 (0.9-1.1) Sodium 141 (136-145) mmol/L Potassium 4.0 (3.5-5.1) mmol/L Chloride 109 H (98-107) mmol/L Carbon Dioxide 26 (21-32) mmol/L Anion Gap 6.0 (3-11) BUN 18 (7-18) mg/dl Creatinine 1.19 (0.6-1.4) mg/dl Est Cr Clr Drug Dosing 61.8 ml/min Est GFR ( Amer) 69.3 Est GFR (Non-Af Amer) 59.8 BUN/Creatinine Ratio 15.2 (10-20) Glucose 85 (70-99) mg/dl Calcium 8.5 (8.5-10.1) mg/dl Magnesium 2.2 (1.8-2.4) mg/dl Total Bilirubin 0.4 (0.2-1) mg/dl Direct Bilirubin 0.1 (0-0.2) mg/dl AST 31 (15-37) U/L ALT 32 (12-78) U/L Alkaline Phosphatase 97 (45-117) U/L Troponin I < 0.015 (0-0.045) ng/ml Total Protein 6.7 (6.4-8.2) gm/dl Albumin 3.1 L (3.4-5.0) gm/dl Lipase 114 (73-393) U/L Urine Color Urine Appearance (Clear) Urine pH (4.5-7.5) Ur Specific [place] (1.000-1.030) Urine Protein (Negative) Urine Glucose (UA) (Negative) Urine Ketones (Negative) Urine Blood (Negative) Urine Nitrite (Negative) Urine Bilirubin (Negative) Urine Urobilinogen (Negative) Ur Leukocyte Esterase (Negative) COVID-19 Eval Order SARS-CoV-2, RNA, NAAT (NEGATIVE) 08/01/20 08/01/20 08/01/20 Range/Units 02:30 02:30 04:45 WBC (4.8-10.8) K/uL RBC (4.7-6.1) M/uL Hgb (14.0-18.0) g/dL Hct (42-52) % MCV (80-100) fL MCH (25-34) pg MCHC (32-36) g/dL RDW Std Deviation (36.4-46.3) fL RDW Coeff of Gissel (11.5-14.5) % Plt Count (130-400) K/uL MPV (7.4-10.4) fL Immature Gran % (Auto) % Neut % (Auto) % Lymph % (Auto) % [place] % (Auto) % Eos % (Auto) % Baso % (Auto) % Neut # (Auto) (1.4-6.5) K/uL Lymph # (Auto) (1.2-3.4) K/uL [place] # (Auto) (0.11-0.59) K/uL Eos # (Auto) (0-0.5) K/uL Baso # (Auto) (0-0.2) K/uL Immature Gran # (Auto) (0.00-0.02) K/uL PT (9.0-12.0) Seconds INR (0.9-1.1) Sodium (136-145) mmol/L Potassium (3.5-5.1) mmol/L Chloride (98-107) mmol/L Carbon Dioxide (21-32) mmol/L Anion Gap (3-11) BUN (7-18) mg/dl Creatinine (0.6-1.4) mg/dl Est Cr Clr Drug Dosing ml/min Est GFR ( Amer) Est GFR (Non-Af Amer) BUN/Creatinine Ratio (10-20) Glucose (70-99) mg/dl Calcium (8.5-10.1) mg/dl Magnesium (1.8-2.4) mg/dl Total Bilirubin (0.2-1) mg/dl Direct Bilirubin (0-0.2) mg/dl AST (15-37) U/L ALT (12-78) U/L Alkaline Phosphatase (45-117) U/L Troponin I (0-0.045) ng/ml Total Protein (6.4-8.2) gm/dl Albumin (3.4-5.0) gm/dl Lipase (73-393) U/L Urine Color Yellow Urine Appearance Clear (Clear) Urine pH 5.0 (4.5-7.5) Ur Specific [place] 1.019 (1.000-1.030) Urine Protein Negative (Negative) Urine Glucose (UA) Negative (Negative) Urine Ketones Negative (Negative) Urine Blood Negative (Negative) Urine Nitrite Negative (Negative) Urine Bilirubin Negative (Negative) Urine Urobilinogen Negative (Negative) Ur Leukocyte Esterase Negative (Negative) COVID-19 Eval Order Covid19 [facility]Now [facility] SARS-CoV-2, RNA, NAAT NEGATIVE (NEGATIVE) Administered Medications Discontinued Medications Fentanyl Citrate (Fentanyl Citrate 100 Mcg/2 Ml Vial) 75 mcg IV NOW STA Stop: 08/01/20 04:06 Last Admin: 08/01/20 04:51 Dose: 75 mcg Documented by: [id number] Cosigned by: [id number] Nitroglycerin (Nitroglycerin Sl 0.4 Mg/Tab Tab) 0.4 mg SL NOW STA Stop: 08/01/20 02:32 Last Admin: 08/01/20 02:39 Dose: 0.4 mg Documented by: [id number] Cosigned by: [id number] Discharge Plan Visit Data Chief Complaint: Chest Pain Stated Complaint: CHEST PAIN/HEAD PAIN/ ALL OVER NUMBNESS ED Provider: Best Messina Discharge Problem: Left-sided chest pain, Headache Forms Stand Alone Forms: [facility] [place] [facility] Prescriptions Prescriptions: No Action memantine 5 mg tablet 5 mg PO QAM Qty: 90 RF: 3 memantine 10 mg tablet 10 mg PO QPM Qty: 90 RF: 3 atorvastatin 40 mg tablet 40 mg PO QAM Qty: 90 RF: 3 (DME) pen needle, diabetic [BD Ultra-Fine Short Pen Needle] 31 gauge x 5/16" needle See Dose Instructions .ROUTE .MEDSUPPLY Qty: 30 RF: 5 furosemide 20 mg tablet 20 mg PO QAM RF: 0 Lantus Solostar U-100 Insulin 100 unit/mL (3 mL) insulin pen 45 unit subcut HS Qty: 45 RF: 3 (DME) OneTouch Ultra Blue Test Strip Strip See Rx Instructions .ROUTE .MEDSUPPLY Qty: 100 RF: 3 Nuplazid 34 mg capsule 34 mg PO PM 30 Days Qty: 30 RF: 2 insulin lispro [Humalog KwikPen Insulin] 100 unit/mL insulin pen 10 - 20 unit SQ TID RF: 0 potassium chloride [K-Tab] 20 mEq tablet extended release 20 meq PO QAM Qty: 90 RF: 3 (DME) lancets [OneTouch UltraSoft Lancets] Misc See Rx Instructions .ROUTE .MEDSUPPLY Qty: 204 RF: 3 (DME) blood-glucose meter [OneTouch Ultra2 Meter] Kit See Rx Instructions .ROUTE .MEDSUPPLY Qty: 1 RF: 0 acetaminophen [Tylenol Extra Strength] 500 mg tablet 1,000 mg PO Q8H PRN (Reason: Pain) RF: 0 polyethylene glycol 3350 [Miralax] 17 gram/dose powder 17 gm PO QAM RF: 0 calcium carbonate-vitamin D3 600 mg (1,500 mg)-2,500 unit capsule 1 cap PO QAM RF: 0 olanzapine 5 mg tablet 2.5 mg PO HS RF: 0 cyanocobalamin (vitamin B-12) [Vitamin B-12] 1,000 mcg Tablet 1,000 mcg PO QAM RF: 0 pentoxifylline 400 mg tablet extended release 400 mg PO BID RF: 0 donepezil 10 mg tablet 10 mg PO QAM RF: 0 clopidogrel 75 mg tablet 75 mg PO QAM RF: 0 pantoprazole 40 mg tablet,delayed release (DR/EC) 40 mg PO QAM RF: 0 metoprolol succinate 25 mg tablet extended release 24 hr 25 mg PO QAM RF: 0 Discharge Problem: Headache Qualifiers: Headache type: unspecified Headache chronicity pattern: unspecified pattern Intractability: not intractable Qualified Code(s): R51.9 - Headache, unspecified
[2020-08-01 02:40] LABS: Basophils # (auto) 0.01 K/uL (0-0.2); Basophils % (auto) 0.2 %; Eosinophils # (auto) 0.13 K/uL (0-0.5); Eosinophils % (auto) 2.8 %; Hematocrit (blood only) 39.6 % (42-52); Hemoglobin 13.6 g/dL (14.0-18.0); Immature Granulocytes # (auto) 0.05 K/uL (0.00-0.02); Immature Granulocytes % (auto) 1.1 %; Lymphocytes # (auto) 1.09 K/uL (1.2-3.4); Lymphocytes % (auto) 23.2 %; Mean Corpuscular Hgb Conc 34.3 g/dL (32-36); Mean Corpuscular Volume 90.2 fL (80-100); Mean Platelet Volume 10.2 fL (7.4-10.4); Monocytes # (auto) 0.46 K/uL (0.11-0.59); Monocytes % (auto) 9.8 %; Neutrophils # (auto) 2.95 K/uL (1.4-6.5); Neutrophils % (auto) 62.9 %; Platelet Count 200 K/uL (130-400); RDW Coefficient of Variation 13.6 % (11.5-14.5); Red Blood Count 4.39 M/uL (4.7-6.1); White Blood Count 4.69 K/uL (4.8-10.8)
[2020-08-01 02:51] LABS: Prothrombin Time 10.1 Seconds (9.0-12.0)
[2020-08-01 02:56] LABS: Alanine Aminotransferase 32 U/L (12-78); Albumin Level 3.1 gm/dl (3.4-5.0); Aspartate Aminotransferase 31 U/L (15-37); BUN Creatinine Ratio 15.2 (10-20); Bilirubin Direct 0.1 mg/dl (0-0.2); Blood Urea Nitrogen 18 mg/dl (7-18); Calcium 8.5 mg/dl (8.5-10.1); Carbon Dioxide 26 mmol/L (21-32); Chloride 109 mmol/L (98-107); Creatinine Clr Calc Pharmacy 61.8 ml/min; Est GFR (African American) 69.3; Est GFR (Non-African American) 59.8; Glucose 85 mg/dl (70-99); Lipase 114 U/L (73-393); Magnesium 2.2 mg/dl (1.8-2.4); Sodium 141 mmol/L (136-145)
[2020-08-01 03:01] LABS: Alkaline Phosphatase 97 U/L (45-117); Bilirubin,Total 0.4 mg/dl (0.2-1); Total Protein 6.7 gm/dl (6.4-8.2); Troponin I < 0.015 ng/ml (0-0.045)
[2020-08-01] MEDS ORDERED: fentaNYL citrate 100 MCG/2 ML VIAL IV STA (04:05)
[2020-08-01 05:19] LABS: Appearance Urine Clear (Clear); Bilirubin Urine Negative (Negative); Blood Urine Negative (Negative); Color Urine Yellow; Glucose Urine UA Negative (Negative); Ketones Urine Negative (Negative); Leukocyte Esterase Urine Negative (Negative); Nitrite Urine Negative (Negative); Protein Urine Negative (Negative); Specific Gravity Urine 1.019 (1.000-1.030); Urobilinogen Urine Negative (Negative)
--- NOTE | 2020-08-01 06:18 | History & Physical Report ---
Date of Service August 01, 2020 Assessment & Plan (1) Chest pain: h/o CABG, states pain is similar to previous cardiac pain. There is a component of reproducible pain. -Telemetry monitoring -Trend troponin -Continue Home meds - Plavix, Metoprolol, Atorvastatin -Cardiology consultation Present on Admission?: Yes (2) Diabetes mellitus, type 2: Well controlled at present -Lantus and ISS Present on Admission?: Yes (3) Esophageal reflux: Chronic -Continue Protonix Present on Admission?: Yes (4) History of CVA (cerebrovascular accident): Stable -Continue Plavix, Atorvastatin Present on Admission?: Yes (5) Hyperlipidemia: Chronic -Continue Atorvastatin Present on Admission?: Yes (6) Hypertension: Stable -Continue Metoprolol Present on Admission?: Yes (7) Stage III chronic kidney disease: Chronic. Stable -Continue to monitor renal function Present on Admission?: Yes (8) Cognitive disorder: ?Dementia -Continue Memantine and Aricept -Olanzapine 2.5mgpo qHS F/E/N - NSS x 1 liter, monitor electrolytes, AHA diet Ppx - Lovenox Code -DNR per discussion with patient Dispo -Obs medical tele History of Present Illness Chief Complaint: chest pain Primary Care Provider: Fox Moran MD Tian Blanchard is a 75yo C male with history of CAD s/p CABG x 3V performed in May 2019 at [facility] [place] (KAUR-LAD, SVG-OM, SVG-PDA). Patient follows routinely with Cardiology. Last seen in June. He presents with chest pain that began abruptly the evening of 07/31/20 at 22:00 while the patient was laying in bed. Pain is central in location with radiation to his neck and shoulders. Constant, 10/10 in severity. Possibly worse with deep breaths and exertion. No relieving factors. He also has been having palpitations, dizziness, near syncope and blurry vision. He got some relief with Nitro - pain decreased to 9/10. . He states that this current pain is very much like the pain he experienced when he had his [place] in 2019. Denies diaphoresis, nausea, vomiting Allergies Allergy/AdvReac Type Severity Reaction Status Date / Time morphine AdvReac Severe "STOPS MY Verified 08/01/20 03:00 HEART" hydromorphone [From Dilaudid] AdvReac Intermediate unresponsiv Verified 08/01/20 03:00 eness trazodone AdvReac Intermediate GI UPSET Verified 08/01/20 03:00 diazepam AdvReac Mild HALLUCINATE Verified 08/01/20 03:00 S propoxyphene AdvReac Mild DRUG Verified 08/01/20 03:00 INTOLERANCE Home Medications Medication Instructions Recorded Confirmed Type acetaminophen [Tylenol Extra 1,000 mg PO Q8H PRN 06/05/19 08/01/20 History Strength] polyethylene glycol 3350 17 17 gm PO QAM 07/16/19 08/01/20 History gram/dose oral powder blood-glucose meter #1 ea 10/15/19 06/24/20 Rx lancets #204 ea 10/15/19 06/24/20 Rx potassium chloride 20 mEq 20 meq PO QAM #90 tab 10/15/19 08/01/20 Rx tablet,extended release memantine 10 mg tablet 10 mg PO QPM #90 tab 11/24/19 08/01/20 Rx memantine 5 mg tablet 5 mg PO QAM #90 tab 11/24/19 08/01/20 Rx atorvastatin 40 mg tablet 40 mg PO QAM #90 tab 12/02/19 08/01/20 Rx pen needle, diabetic 31 gauge x #30 ea 02/11/20 06/24/20 Rx /" calcium carbonate-vitamin D3 1 cap PO QAM 03/14/20 08/01/20 History clopidogrel 75 mg PO QAM 05/09/20 08/01/20 History cyanocobalamin (vitamin B-12) 1,000 mcg PO QAM 05/09/20 08/01/20 History [Vitamin B-12] donepezil 10 mg PO QAM 05/09/20 08/01/20 History metoprolol succinate 25 mg PO QAM 05/09/20 08/01/20 History olanzapine 2.5 mg PO HS 05/09/20 08/01/20 History pantoprazole 40 mg PO QAM 05/09/20 08/01/20 History pentoxifylline 400 mg PO BID 05/09/20 08/01/20 History furosemide 20 mg tablet 20 mg PO QAM tab 05/31/20 08/01/20 History insulin glargine 100 unit/mL (3 45 unit SUBCUT HS #45 ml 06/30/20 08/01/20 Rx mL) subcutaneous pen insulin lispro 100 unit/mL 10 - 20 unit SQ TID ml 07/01/20 08/01/20 History subcutaneous pen blood sugar diagnostic #100 ea 07/05/20 Rx pimavanserin 34 mg capsule 34 mg PO PM 30 Days #30 cap 07/21/20 08/01/20 Rx Past Med/Surg History Medical History (Updated 08/01/20 @ 06:12 by Amisha Ramos DO) Acute diastolic (congestive) heart failure (06/2019) Arsenic poisoning Asymptomatic cholelithiasis Atypical chest pain Benign colonic polyp CAD in [place] artery Cellulitis Cognitive disorder Controlled type 2 diabetes mellitus with neurologic complication, with long-term current use of insulin Conversion disorder Delusional disorder, somatic type Diabetes mellitus, type 2 Diabetic peripheral neuropathy Dyslipidemia Eczematous dermatitis Esophageal reflux Fracture of distal end of radius with malunion History of tobacco use Hyperlipidemia Hypertension Intermittent explosive disorder Kidney stone on right side Left wrist fracture Leg edema, right Migraines, neuralgic Myocardial Infarction 2004--follows with Dr. Mejia Nephrolithiasis Neurological deficit present Neuropathy Noninfected skin tear of left lower extremity Osteoarthritis Osteopenia determined by x-ray Raynauds phenomenon Stage III chronic kidney disease Thyroid disorder screening Tubular adenoma of colon Venous (peripheral) insufficiency Vitamin D deficiency Wound of left foot Surgical History History of ankle surgery History of arthroscopy of left knee History of cardiac cath x3-4, last 2014 History of carpal tunnel release of both wrists History of colonoscopy History of heart artery stent (1998) History of lithotripsy x2 History of lumbar discectomy x2 History of open reduction and internal fixation (ORIF) procedure left ankle--hardware in place History of right cataract extraction History of tonsillectomy and adenoidectomy 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) [facility] S/P sinus surgery Status post uvulopalatopharyngoplasty Family History Father Diabetes Prostate cancer Colorectal cancer Brother Prostate cancer Uncle Colorectal cancer Father Myocardial infarction Mother Myocardial infarction Other Dementia No family history of adverse response to anesthesia Denies family history of Ovarian cancer Breast cancer Social History Smoking Status: Former smoker Tobacco Type: Cigarettes Age Quit Using Tobacco: 71; packs per day: 3; Cigarettes Per Day: Camels since 7 years old.; Second Hand Exposure: No; Hx Alcohol Use: Yes (Has not had drink for 3 years) Alcohol type: beer Alcohol type Comment: heavy use until age 71; case beer/day at times Hx Substance Use: No Preferred Language: Yi Communication Ability: Effective Visual Impairment: No Limitations 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 Selling Required: No Beliefs That Will Affect Care: None marital status: marital status details: 3 children Current Living Situation: Spouse current occupational status: retired How many Children do You have: 2 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); chemical exposure Feels Safe at Home: Yes Seatbelt Use: always Assistive Devices: Cane Review of Systems Review of Systems: All systems reviewed & are unremarkable except as noted in HPI & below +numbness in legs Physical Exam Physical Exam: General: patient resting comfortably, NAD, non-toxic in appearance, AA&O x 4 Skin: warm, dry, intact, no rashes or lesions HEENT: NC/AT, PERRL, EOMI, anicteric sclera, conjunctiva without injection, external ear normal to inspection and nontender, nares patent, moist mucus membranes, dentition intact, no oropharyngeal lesions, neck supple, trachea midline, no LAD, no thyromegaly, no JVD Heart: +S1/S2, regular, bradycardic with occasional ectopy, no m/r/g, +CW pain Lungs: equal air entry bilaterally, no rales/rhonchi/wheezes Abd: +BS, soft, NT/ND, no masses/organomegaly/ascites Ext: warm, 2+ pulses in UE/LE bilaterally, no clubbing/cyanosis or edema Neuro: nonfocal, patient AA&O x 4, speech intact, no facial droop, moving all extremities on command with equal strength 5/5 Results & Data Results & Data ([facility]) Vital Signs (Past 12 Hours) Vital Signs Temp Pulse Pulse Resp BP BP Pulse Ox 08/01/20 05:30 59 L 16 112/60 95 08/01/20 05:00 68 20 118/70 94 08/01/20 04:00 72 16 127/63 94 08/01/20 03:25 63 16 114/68 95 08/01/20 03:24 64 16 114/68 94 08/01/20 03:00 65 20 116/72 93 08/01/20 02:45 66 20 120/67 91 08/01/20 02:30 62 16 150/81 H 95 08/01/20 02:18 36.4 C L 61 22 139/76 97 Laboratory Results Lab Results 08/01/20 08/01/20 08/01/20 Range/Units 02:25 02:25 02:25 WBC 4.69 L (4.8-10.8) K/uL RBC 4.39 L (4.7-6.1) M/uL Hgb 13.6 L (14.0-18.0) g/dL Hct 39.6 L (42-52) % MCV 90.2 (80-100) fL MCH 31.0 (25-34) pg MCHC 34.3 (32-36) g/dL RDW Std Deviation 45.0 (36.4-46.3) fL RDW Coeff of Gissel 13.6 (11.5-14.5) % Plt Count 200 (130-400) K/uL MPV 10.2 (7.4-10.4) fL Immature Gran % (Auto) 1.1 % Neut % (Auto) 62.9 % Lymph % (Auto) 23.2 % Holt % (Auto) 9.8 % Eos % (Auto) 2.8 % Baso % (Auto) 0.2 % Neut # (Auto) 2.95 (1.4-6.5) K/uL Lymph # (Auto) 1.09 L (1.2-3.4) K/uL Holt # (Auto) 0.46 (0.11-0.59) K/uL Eos # (Auto) 0.13 (0-0.5) K/uL Baso # (Auto) 0.01 (0-0.2) K/uL Immature Gran # (Auto) 0.05 H (0.00-0.02) K/uL PT 10.1 (9.0-12.0) Seconds INR 1.0 (0.9-1.1) Sodium 141 (136-145) mmol/L Potassium 4.0 (3.5-5.1) mmol/L Chloride 109 H (98-107) mmol/L Carbon Dioxide 26 (21-32) mmol/L Anion Gap 6.0 (3-11) BUN 18 (7-18) mg/dl Creatinine 1.19 (0.6-1.4) mg/dl Est Cr Clr Drug Dosing 61.8 ml/min Est GFR ( Amer) 69.3 Est GFR (Non-Af Amer) 59.8 BUN/Creatinine Ratio 15.2 (10-20) Glucose 85 (70-99) mg/dl Calcium 8.5 (8.5-10.1) mg/dl Magnesium 2.2 (1.8-2.4) mg/dl Total Bilirubin 0.4 (0.2-1) mg/dl Direct Bilirubin 0.1 (0-0.2) mg/dl AST 31 (15-37) U/L ALT 32 (12-78) U/L Alkaline Phosphatase 97 (45-117) U/L Troponin I < 0.015 (0-0.045) ng/ml Total Protein 6.7 (6.4-8.2) gm/dl Albumin 3.1 L (3.4-5.0) gm/dl Lipase 114 (73-393) U/L Urine Color Urine Appearance (Clear) Urine pH (4.5-7.5) Ur Specific Flushing (1.000-1.030) Urine Protein (Negative) Urine Glucose (UA) (Negative) Urine Ketones (Negative) Urine Blood (Negative) Urine Nitrite (Negative) Urine Bilirubin (Negative) Urine Urobilinogen (Negative) Ur Leukocyte Esterase (Negative) COVID-19 Eval Order SARS-CoV-2, RNA, NAAT (NEGATIVE) 08/01/20 08/01/20 08/01/20 Range/Units 02:30 02:30 04:45 WBC (4.8-10.8) K/uL RBC (4.7-6.1) M/uL Hgb (14.0-18.0) g/dL Hct (42-52) % MCV (80-100) fL MCH (25-34) pg MCHC (32-36) g/dL RDW Std Deviation (36.4-46.3) fL RDW Coeff of Gissel (11.5-14.5) % Plt Count (130-400) K/uL MPV (7.4-10.4) fL Immature Gran % (Auto) % Neut % (Auto) % Lymph % (Auto) % Holt % (Auto) % Eos % (Auto) % Baso % (Auto) % Neut # (Auto) (1.4-6.5) K/uL Lymph # (Auto) (1.2-3.4) K/uL Holt # (Auto) (0.11-0.59) K/uL Eos # (Auto) (0-0.5) K/uL Baso # (Auto) (0-0.2) K/uL Immature Gran # (Auto) (0.00-0.02) K/uL PT (9.0-12.0) Seconds INR (0.9-1.1) Sodium (136-145) mmol/L Potassium (3.5-5.1) mmol/L Chloride (98-107) mmol/L Carbon Dioxide (21-32) mmol/L Anion Gap (3-11) BUN (7-18) mg/dl Creatinine (0.6-1.4) mg/dl Est Cr Clr Drug Dosing ml/min Est GFR ( Amer) Est GFR (Non-Af Amer) BUN/Creatinine Ratio (10-20) Glucose (70-99) mg/dl Calcium (8.5-10.1) mg/dl Magnesium (1.8-2.4) mg/dl Total Bilirubin (0.2-1) mg/dl Direct Bilirubin (0-0.2) mg/dl AST (15-37) U/L ALT (12-78) U/L Alkaline Phosphatase (45-117) U/L Troponin I (0-0.045) ng/ml Total Protein (6.4-8.2) gm/dl Albumin (3.4-5.0) gm/dl Lipase (73-393) U/L Urine Color Yellow Urine Appearance Clear (Clear) Urine pH 5.0 (4.5-7.5) Ur Specific Flushing 1.019 (1.000-1.030) Urine Protein Negative (Negative) Urine Glucose (UA) Negative (Negative) Urine Ketones Negative (Negative) Urine Blood Negative (Negative) Urine Nitrite Negative (Negative) Urine Bilirubin Negative (Negative) Urine Urobilinogen Negative (Negative) Ur Leukocyte Esterase Negative (Negative) COVID-19 Eval Order Covid19 [facility] SARS-CoV-2, RNA, NAAT NEGATIVE (NEGATIVE) ECG Additional Comments: SR wtih PACs, rate of 66, no acute ischemic changers, RBBB PG Care Time/CCT Total # of Minutes Spent Total Time Spent with Patient: Total time spent is greater than 50% in coordination of care (as documented) at patient's floor/unit and/or counseling patient: Coding Level of Care Code 42614 OBS Care - Level 3 Diagnoses Chest pain R07.9 Chest pain type: unspecified Diabetes mellitus, type 2 E11.42; Z79.4 Diabetes mellitus long goods drier insulin use: with snf use Diabetes mellitus complication status: with neurologic complications Diabetes mellitus complication detail: with polyneuropathy Esophageal reflux K21.9 Esophagitis presence: esophagitis presence not specified History of CVA (cerebrovascular accident) Z86.73 Hyperlipidemia E78.5 Hyperlipidemia type: unspecified Hypertension I10 Hypertension type: essential hypertension Stage III chronic kidney disease N18.3 Cognitive disorder F09 (1) Diabetes mellitus, type 2 Diabetes mellitus long goods drier insulin use: with long goods drier use Diabetes mellitus complication status: with neurologic complications Diabetes mellitus complication detail: with polyneuropathy Qualified Code(s): E11.42 - Type 2 diabetes mellitus with diabetic polyneuropathy; Z79.4 - residential (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 (2) Esophageal reflux Esophagitis presence: esophagitis presence not specified Qualified Code(s): K21.9 - Gastro-esophageal reflux disease without esophagitis (3) Hyperlipidemia Hyperlipidemia type: unspecified Qualified Code(s): E78.5 - Hyperlipidemia, unspecified (4) Hypertension Hypertension type: essential hypertension Qualified Code(s): I10 - Essential (primary) hypertension (5) Chest pain Chest pain type: unspecified Qualified Code(s): R07.9 - Chest pain, unspecified
--- NOTE | 2020-08-01 07:15 | CT Scan Report ---
CT head/brain wo con CLINICAL HISTORY: persistent headache x 2 months COMPARISON STUDY: 07/04/2019 TECHNIQUE: Axial CT of the brain is performed from the vertex to the skull base. IV contrast was not administered for this examination. A dose lowering technique was utilized adhering to the principles of ALARA. CT DOSE: 614.27 mGy.cm FINDINGS: No intra or extra-axial mass lesions are visualized. There is no CT evidence of acute cortical infarc tion. There is no evidence of midline shift. There is no acute hemorrhage. No calvarial fractures ar e visualized. There are patchy white matter hypodensities likely on a small vessel basis. There is no evidence of pathologic ventricular dilatation. There is no evidence of acute sinusitis. Postsurgical changes within the sinuses are evident. IMPRESSION: No acute intracranial findings ACT 112: Negative or not required by law. Electronically signed by: Carlos Salazar M.D. 08/01/2020 7:14 AM
[2020-08-01] MEDS ORDERED: GLUCOSE 40% GEL 15 GM TUBE PO PRN (07:22)
[2020-08-01] MEDS ORDERED: GLUCOSE 10 TABS/TUBE PO PRN (07:22)
[2020-08-01] MEDS ORDERED: CARBOHYDRATES FOR HYPOGLYCEMIA PO PRN (07:22)
[2020-08-01] MEDS ORDERED: SODIUM CHLORIDE 0.9% 1000ML 1,000 ML IV SCH (07:22)
[2020-08-01] MEDS ORDERED: GLUCAGON FOR INJ 1 MG VIAL SQ PRN (07:22)
[2020-08-01] MEDS ORDERED: DEXTROSE 50% 50 ML SYRINGE IV PRN (07:22)
[2020-08-01] MEDS ORDERED: ACETAMINOPHEN 325 MG TAB PO PRN (07:22)
[2020-08-01] MEDS ORDERED: ONDANSETRON INJ 2 MG/ML 2 ML VIAL IV PRN (07:22)
[2020-08-01] MEDS ORDERED: ACETAMINOPHEN HOME PACK 500 MG TABLET PO PRN (07:22)
--- NOTE | 2020-08-01 07:31 | XRay Report ---
XR chest 1V portable CLINICAL HISTORY: Atypical chest pain COMPARISON STUDY: 05/09/2020 FINDINGS: The heart is mildly enlarged. There are postsurgical changes of midline sternotomy. There i s no failure. There is no focal pulmonary consolidation. There are no pleural effusions. Increased ma rkings at the left lung base likely represent a combination of fat pad and atelectatic change[ IMPRESSION: No active disease in the chest. ACT 112: Negative or not required by law. Electronically signed by: Carlos Salazar M.D. 08/01/2020 7:30 AM
[2020-08-01] MEDS: DONEPEZIL HCL 10 MG TAB PO SCH (08:14)
[2020-08-01] MEDS: ENOXAPARIN INJ 40 MG/0.4 ML SYR SQ SCH (08:14)
[2020-08-01] MEDS: CLOPIDOGREL BISULFATE 75 MG TAB PO SCH (08:14)
[2020-08-01] MEDS: PANTOprazole 40 MG TAB PO SCH (08:14)
[2020-08-01] MEDS: CYANOCOBALAMIN 500 MCG TABLET (VITAMIN B-12) PO SCH (08:15)
[2020-08-01] MEDS: ATORVASTATIN 40 MG TAB PO SCH (08:15)
[2020-08-01] MEDS: MEMANTINE HCL 5 MG TAB PO SCH (08:15)
[2020-08-01] MEDS: METOPROLOL SUCC 25MG EXT REL TAB PO SCH (08:16)
[2020-08-01] MEDS: PENTOXIFYLLINE 400MG EXT REL TAB PO SCH ×2 (08:16→20:46)
[2020-08-01] MEDS: POLYETHYLENE (MIRALAX) 17 GM PACK PO SCH (08:16)
[2020-08-01] MEDS: INSULIN GLARGINE SOLOSTAR 100 UNITS/ML 3 ML PEN SC SCH ×2 (08:16→20:44)
[2020-08-01] MEDS: INSULIN ASPART 100 UNITS/ML 3 ML PEN SC SCH ×4 (08:19→20:44)
[2020-08-01] MEDS ORDERED: POTASSIUM CHLORIDE CRTAB 20 MEQ TABCR PO SCH (09:00)
[2020-08-01] MEDS ORDERED: FUROSEMIDE 20 MG TAB PO SCH (09:00)
[2020-08-01] MEDS: NITROGLYCERIN SL 0.4 MG/TAB TAB SL PRN ×3 (10:11→11:03)
--- NOTE | 2020-08-01 12:03 | Cardiology Consultation ---
Date of Consultation August 01, 2020 Assessment & Plan (1) Chest pain: (2) CAD in [place] artery: (3) S/P CABG (coronary artery bypass graft): (4) Headache: (5) Hypertension: ASSESSMENT/PLAN: 1. Chest pain: Atypical. Constant chest pain for > 13 hours, and ongoing with negative troponin levels and unremarkable ECG. Echocardiogram ordered. Cycle 1 more troponin level for a full rule out. Repeat ECG. There is a reproducible component. This may be musculoskeletal. Consider evaluation for pulmonary embolism (Dr. Schuster plans on evaluating for PE). His daughter also mention that he has a history of complaining about chest pain and sometimes questions his actual symptom. 2. CAD s/p CABG x 3: Chest pain appears to be atypical and not likely ischemic in origin, especially if next troponin is negative with constant symptoms of over 13 hours. Continue anti-platelet therapy, high-intensity statin therapy, and beta-beto. 3. Hypertension: Blood pressure has been well controlled. Continue home regimen. 4. Headache: His daughter was most concerned about headache and he or his called the on-call PCP last night for near fall in the setting of the headache and weak legs. Will defer this to primary hospitalist, Dr. Schuster. He underwent head CT already in the ER. Dr. Schuster was made aware of daughters main concern. 5. Psychiatric disorder: Daughter is concerned that his mood is changing now that he is off of his mood stabilizer. Discussed with Dr. Schuster. 6. Disposition: Patient care discussed with Dr. Schuster of the primary hospitalist service. Please call with any other questions or concerns. Follow- up with Dr. Mejia on discharge. Thank you for allowing me to participate in the care of your patient. Please call for any other questions or concerns. Sincerely, Jaren Pop M.D. History of Present Illness Reason for Consultation: Chest pain. History of CAD and CABG. Requesting Physician: Amisha Ramos DO Attending Physician: Dr. Delonte Schuster History of Present Illness Mr. Blanchard is a very pleasant 75-year-old gentleman with a history significant for CAD s/p CABG x 3 (KAUR to LAD, SVG to OM, SVG to PDA in May of 2019), hypertension, dyslipidemia, stroke, type 2 diabetes. He also has a history of psychiatric disorder. His primary acute care nursing assistant is Dr. Mejia. Cardiology was consulted for chest discomfort. Overnight, he or his called the on-call physician for his PCP as he fell after getting up to use the restroom. He states that he felt his legs giving out on him and fell against the door, striking his head. There was concern about stroke and therefore he was sent to the emergency department. While here, he gave a history of chest pain. He states that the chest pain began at approximately 10:00 p.m. and was as bad as 10. The chest pain apparently started before he walked to the restroom and did not worsen with exertion. The chest pain was described as a pressure that would radiate to his left neck and left shoulder. The chest pain is in the left upper chest. He describes it feeling like prior myocardial infarction. There is no associated shortness of breath or diaphoresis. Symptoms can worsen with deep inspiration. Nitroglycerin offer some relief but the pain has been constant for 13 hours and continues to be present. His blood pressure has been well controlled throughout this hospital stay. He denies shortness of breath, syncope, near-syncope, palpitations, or bleeding. He had swelling in his lower extremities April and May of 2020 and [facility] He was noted have venous insufficiency on Doppler studies. He uses air boots daily which has improved his swelling. He reports having a fever of 101 F 3 days ago. His daughter and primary contact, Julienne Mullins, was notified via telephone of our meeting today, in order to give her an update on his cardiology care. She expressed some of her concerns. Her biggest concern was his headaches. He has been experiencing headaches every day or every other day for the past several weeks and they can last several hours or all day. He also had been taking olanzapine, but was recently discontinued for concerns of parkinsonism. She believes that his mood is getting worse again but that this medication did significantly improve his psychiatric issues that he was experiencing in the past. Review of systems: As above. He also reports neuropathy of his lower extremities. Review of systems otherwise negative/unremarkable. Family history: Father and mother with CAD. Social history: Quit smoking in 2018. He had smoked up to 3 packs per day and started smoking as a child. Quit alcohol in 2018. He lives at home with his , Carline. He has 3 children. He was unaccompanied in his hospital room. Allergies Allergy/AdvReac Type Severity Reaction Status Date / Time morphine AdvReac Severe "STOPS MY Verified 08/01/20 03:00 HEART" hydromorphone [From Dilaudid] AdvReac Intermediate unresponsiv Verified 08/01/20 03:00 eness trazodone AdvReac Intermediate GI UPSET Verified 08/01/20 03:00 diazepam AdvReac Mild HALLUCINATE Verified 08/01/20 03:00 S propoxyphene AdvReac Mild DRUG Verified 08/01/20 03:00 INTOLERANCE Home Medications Medication Instructions Recorded Confirmed Type acetaminophen [Tylenol Extra 1,000 mg PO Q8H PRN 06/05/19 08/01/20 History Strength] polyethylene glycol 3350 17 17 gm PO QAM 07/16/19 08/01/20 History gram/dose oral powder blood-glucose meter #1 ea 10/15/19 06/24/20 Rx lancets #204 ea 10/15/19 06/24/20 Rx potassium chloride 20 mEq 20 meq PO QAM #90 tab 10/15/19 08/01/20 Rx tablet,extended release memantine 10 mg tablet 10 mg PO QPM #90 tab 11/24/19 08/01/20 Rx memantine 5 mg tablet 5 mg PO QAM #90 tab 11/24/19 08/01/20 Rx atorvastatin 40 mg tablet 40 mg PO QAM #90 tab 12/02/19 08/01/20 Rx pen needle, diabetic 31 gauge x #30 ea 02/11/20 06/24/20 Rx /" calcium carbonate-vitamin D3 1 cap PO QAM 03/14/20 08/01/20 History clopidogrel 75 mg PO QAM 05/09/20 08/01/20 History cyanocobalamin (vitamin B-12) 1,000 mcg PO QAM 05/09/20 08/01/20 History [Vitamin B-12] donepezil 10 mg PO QAM 05/09/20 08/01/20 History metoprolol succinate 25 mg PO QAM 05/09/20 08/01/20 History olanzapine 2.5 mg PO HS 05/09/20 08/01/20 History pantoprazole 40 mg PO QAM 05/09/20 08/01/20 History pentoxifylline 400 mg PO BID 05/09/20 08/01/20 History furosemide 20 mg tablet 20 mg PO QAM tab 05/31/20 08/01/20 History insulin glargine 100 unit/mL (3 45 unit SUBCUT HS #45 ml 06/30/20 08/01/20 Rx mL) subcutaneous pen insulin lispro 100 unit/mL 10 - 20 unit SQ TID ml 07/01/20 08/01/20 History subcutaneous pen blood sugar diagnostic #100 ea 07/05/20 Rx pimavanserin 34 mg capsule 34 mg PO PM 30 Days #30 cap 07/21/20 08/01/20 Rx Patient History Medical History (Updated 08/01/20 @ 06:29 by Best Messina MD) Acute diastolic (congestive) heart failure (06/2019) Arsenic poisoning Asymptomatic cholelithiasis Atypical chest pain Benign colonic polyp CAD in [place] artery Cellulitis Cognitive disorder Controlled type 2 diabetes mellitus with neurologic complication, with long-term current use of insulin Conversion disorder Delusional disorder, somatic type Diabetes mellitus, type 2 Diabetic peripheral neuropathy Dyslipidemia Eczematous dermatitis Esophageal reflux Fracture of distal end of radius with malunion History of tobacco use Hyperlipidemia Hypertension Intermittent explosive disorder Kidney stone on right side Left wrist fracture Leg edema, right Migraines, neuralgic Myocardial Infarction 2004--follows with Dr. Mejia Nephrolithiasis Neurological deficit present Neuropathy Noninfected skin tear of left lower extremity Osteoarthritis Osteopenia determined by x-ray Raynauds phenomenon Stage III chronic kidney disease Thyroid disorder screening Tubular adenoma of colon Venous (peripheral) insufficiency Vitamin D deficiency Wound of left foot Surgical History (Updated 08/01/20 @ 12:36 by Kain Pop MD) History of ankle surgery History of arthroscopy of left knee History of cardiac cath x3-4, last 2014 History of carpal tunnel release of both wrists History of colonoscopy History of heart artery stent (1998) History of lithotripsy x2 History of lumbar discectomy x2 History of open reduction and internal fixation (ORIF) procedure left ankle--hardware in place History of right cataract extraction History of tonsillectomy and adenoidectomy S/P CABG (coronary artery bypass graft) S/P sinus surgery Status post uvulopalatopharyngoplasty Family History Father Diabetes Prostate cancer Colorectal cancer Brother Prostate cancer Uncle Colorectal cancer Father Myocardial infarction Mother Myocardial infarction Other Dementia No family history of adverse response to anesthesia Denies family history of Ovarian cancer Breast cancer Social History Smoking Status: Former smoker Tobacco Type: Cigarettes Age Quit Using Tobacco: 71; packs per day: 3; Cigarettes Per Day: Camels since 7 years old.; Second Hand Exposure: No; Hx Alcohol Use: No Hx Substance Use: No Preferred Language: [place] Communication Ability: Effective Visual Impairment: No Limitations Doughnut Dough Mixer Required: No Beliefs That Will Affect Care: None marital status: marital status details: 3 children Current Living Situation: Spouse current occupational status: retired How many Children do You have: 2 other: 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 Alert. HEENT: Anicteric sclera. Neck: No JVD. No bruits. Normal carotid upstrokes bilaterally. Cardiac: PMI was nonpalpable. No ventricular heave. Regular. Normal S1-S2. No murmurs, rubs, or gallops. Pulmonary: Clear to auscultation bilaterally without wheezes, rales, or rhonchi. Abdomen: Soft, nontender, nondistended, with normoactive bowel sounds. No bruits noted. Extremities: 2+ radial pulses bilaterally. 1+ posterior tibialis pulses bilaterally. Trace bilateral lower extremity edema. No cyanosis. Psychiatric: Affect appears appropriate. Chest: Tender to palpation in the left chest, approximately fourth intercostal space in the midclavicular line, reproducing his chest discomfort described in the HPI. No palpable mass in that area. No rash. Results & Data ([facility]) Vital Signs (Past 12 Hours) Vital Signs Temp Pulse Pulse Pulse Resp BP BP 08/01/20 11:07 72 18 102/64 08/01/20 11:01 70 18 102/64 08/01/20 10:45 36.6 C 71 18 126/75 08/01/20 10:20 70 18 115/72 08/01/20 10:11 72 18 127/79 08/01/20 08:00 62 08/01/20 07:23 36.3 C L 62 16 08/01/20 06:30 68 16 118/65 08/01/20 06:00 57 L 16 109/57 L 08/01/20 05:30 59 L 16 112/60 08/01/20 05:00 68 20 118/70 08/01/20 04:00 72 16 127/63 08/01/20 03:25 63 16 114/68 08/01/20 03:24 64 16 08/01/20 03:00 65 20 116/72 08/01/20 02:45 66 20 120/67 08/01/20 02:30 62 16 150/81 H 08/01/20 02:18 36.4 C L 61 22 139/76 BP Pulse Ox 08/01/20 11:07 92 08/01/20 11:01 97 08/01/20 10:45 95 08/01/20 10:20 96 08/01/20 10:11 08/01/20 08:00 08/01/20 07:23 137/78 96 08/01/20 06:30 97 08/01/20 06:00 94 08/01/20 05:30 95 08/01/20 05:00 94 08/01/20 04:00 94 08/01/20 03:25 95 08/01/20 03:24 114/68 94 08/01/20 03:00 93 08/01/20 02:45 91 08/01/20 02:30 95 08/01/20 02:18 97 Laboratory Results Laboratory Results - last 24 hr 08/01/20 08/01/20 08/01/20 02:25 02:25 02:25 WBC 4.69 L RBC 4.39 L Hgb 13.6 L Hct 39.6 L MCV 90.2 MCH 31.0 MCHC 34.3 RDW Std Deviation 45.0 RDW Coeff of Gissel 13.6 Plt Count 200 MPV 10.2 Immature Gran % (Auto) 1.1 Neut % (Auto) 62.9 Lymph % (Auto) 23.2 [place] % (Auto) 9.8 Eos % (Auto) 2.8 Baso % (Auto) 0.2 Neut # (Auto) 2.95 Lymph # (Auto) 1.09 L [place] # (Auto) 0.46 Eos # (Auto) 0.13 Baso # (Auto) 0.01 Immature Gran # (Auto) 0.05 H PT 10.1 INR 1.0 Sodium 141 Potassium 4.0 Chloride 109 H Carbon Dioxide 26 Anion Gap 6.0 BUN 18 Creatinine 1.19 Est Cr Clr Drug Dosing 61.8 Est GFR ( Amer) 69.3 Est GFR (Non-Af Amer) 59.8 BUN/Creatinine Ratio 15.2 Glucose 85 POC Glucose Calcium 8.5 Magnesium 2.2 Total Bilirubin 0.4 Direct Bilirubin 0.1 AST 31 ALT 32 Alkaline Phosphatase 97 Troponin I < 0.015 Total Protein 6.7 Albumin 3.1 L Lipase 114 Urine Color Urine Appearance Urine pH Ur Specific [place] Urine Protein Urine Glucose (UA) Urine Ketones Urine Blood Urine Nitrite Urine Bilirubin Urine Urobilinogen Ur Leukocyte Esterase COVID-19 Eval Order SARS-CoV-2, RNA, NAAT 08/01/20 08/01/20 08/01/20 02:30 02:30 04:45 WBC RBC Hgb Hct MCV MCH MCHC RDW Std Deviation RDW Coeff of Gissel Plt Count MPV Immature Gran % (Auto) Neut % (Auto) Lymph % (Auto) [place] % (Auto) Eos % (Auto) Baso % (Auto) Neut # (Auto) Lymph # (Auto) [place] # (Auto) Eos # (Auto) Baso # (Auto) Immature Gran # (Auto) PT INR Sodium Potassium Chloride Carbon Dioxide Anion Gap BUN Creatinine Est Cr Clr Drug Dosing Est GFR ( Amer) Est GFR (Non-Af Amer) BUN/Creatinine Ratio Glucose POC Glucose Calcium Magnesium Total Bilirubin Direct Bilirubin AST ALT Alkaline Phosphatase Troponin I Total Protein Albumin Lipase Urine Color Yellow Urine Appearance Clear Urine pH 5.0 Ur Specific [place] 1.019 Urine Protein Negative Urine Glucose (UA) Negative Urine Ketones Negative Urine Blood Negative Urine Nitrite Negative Urine Bilirubin Negative Urine Urobilinogen Negative Ur Leukocyte Esterase Negative COVID-19 Eval [facility] SARS-CoV-2, RNA, NAAT NEGATIVE 08/01/20 08/01/20 08/01/20 07:32 07:50 11:21 WBC RBC Hgb Hct MCV MCH MCHC RDW Std Deviation RDW Coeff of Gissel Plt Count MPV Immature Gran % (Auto) Neut % (Auto) Lymph % (Auto) [place] % (Auto) Eos % (Auto) Baso % (Auto) Neut # (Auto) Lymph # (Auto) [place] # (Auto) Eos # (Auto) Baso # (Auto) Immature Gran # (Auto) PT INR Sodium Potassium Chloride Carbon Dioxide Anion Gap BUN Creatinine Est Cr Clr Drug Dosing Est GFR ( Amer) Est GFR (Non-Af Amer) BUN/Creatinine Ratio Glucose POC Glucose 92 130 H Calcium Magnesium Total Bilirubin Direct Bilirubin AST ALT Alkaline Phosphatase Troponin I < 0.015 Total Protein Albumin Lipase Urine Color Urine Appearance Urine pH Ur Specific [place] Urine Protein Urine Glucose (UA) Urine Ketones Urine Blood Urine Nitrite Urine Bilirubin Urine Urobilinogen Ur Leukocyte Esterase COVID-19 Eval Order SARS-CoV-2, RNA, NAAT Diagnostic Findings Chest x-ray from 08/01/2020 personally reviewed: No infiltrate. Radiology reports no active disease in the chest. Head CT 08/01/2020: No acute intracranial findings. Telemetry personally reviewed: Sinus rhythm. No significant arrhythmia. ECG personally reviewed: ECG 08/01/2020: Sinus rhythm with PACs at 66 beats per minute. RBBB. Inferior infarct. The the Medications Administered Current Inpatient Medications Acetaminophen (Acetaminophen 325 Mg Tab) 650 mg PO Q4H PRN PRN Reason: pain/fever Stop: 08/31/20 07:21 Atorvastatin Calcium (Atorvastatin 40 Mg Tab) [facility] [place] Stop: 08/31/20 08:59 Last Admin: 08/01/20 08:15 Dose: 40 mg Documented by: Clopidogrel Bisulfate (Clopidogrel Bisulfate 75 Mg Tab) 75 mg PO QAM COUNT INCLUDES THE [facility] Stop: 08/31/20 08:59 Last Admin: 08/01/20 08:14 Dose: 75 mg Documented by: Cyanocobalamin (Cyanocobalamin 500 Mcg Tablet (Vitamin B-12)) 1,000 mcg PO QAM NIKOLAI Stop: 08/31/20 08:59 Last Admin: 08/01/20 08:15 Dose: 1,000 mcg Documented by: Dextrose (Dextrose 50% 50 Ml Syringe) 25 - 50 ml IV UD PRN; Protocol PRN Reason: Hypoglycemia Protocol Stop: 08/31/20 07:21 Donepezil HCl (Donepezil Hcl 10 Mg Tab) 10 mg PO QAM NIKOLAI Stop: 08/31/20 08:59 Last Admin: 08/01/20 08:14 Dose: 10 mg Documented by: Enoxaparin Sodium (Enoxaparin Inj 40 Mg/0.4 Ml Syr) 40 mg SQ QAM COUNT INCLUDES THE [facility] Stop: 08/31/20 08:59 Last Admin: 08/01/20 08:14 Dose: 40 mg Documented by: Furosemide (Furosemide 20 Mg Tab) 20 mg PO QAM COUNT INCLUDES THE [facility] Stop: 08/31/20 08:59 Last Admin: 08/01/20 08:15 Dose: 20 mg Documented by: Glucagon (Glucagon For Inj 1 Mg Vial) 1 mg SQ UD PRN; Protocol PRN Reason: Hypoglycemia Protocol Stop: 08/31/20 07:21 Glucose (Glucose 10 Tabs/Tube) 4 - 8 tabs PO UD PRN; Protocol PRN Reason: Hypoglycemia Protocol Stop: 08/31/20 07:21 Glucose (Glucose 40% Gel 15 Gm Tube) 15 - 30 gm PO UD PRN; Protocol PRN Reason: Hypoglycemia Protocol Stop: 08/31/20 07:21 Sodium Chloride (Nss 1000ml) 1,000 mls @ 125 mls/hr IV .Q8H COUNT INCLUDES THE [facility] Stop: 08/01/20 15:21 Last Admin: 08/01/20 08:22 Dose: 125 mls/hr Documented by: Insulin Aspart (Insulin Aspart 100 Units/Ml 3 Ml Pen) 0 units SC ACHS COUNT INCLUDES THE [facility] Stop: 08/31/20 07:29 Last Admin: 08/01/20 11:53 Dose: 8 units Documented by: Insulin Glargine (Insulin Glargine Solostar 100 Units/Ml 3 Ml Pen) 18 units SC BID COUNT INCLUDES THE [facility] Stop: 08/31/20 08:59 Last Admin: 08/01/20 08:16 Dose: 18 units Documented by: Memantine (Memantine Hcl 10 Mg Tab) 10 mg PO QPM COUNT INCLUDES THE [facility] Stop: 08/31/20 20:59 Memantine (Memantine Hcl 5 Mg Tab) 5 mg PO QAM COUNT INCLUDES THE [facility] Stop: 08/31/20 08:59 Last Admin: 08/01/20 08:15 Dose: 5 mg Documented by: Metoprolol Succinate (Metoprolol Succ 25mg Ext Rel Tab) 25 mg PO QAM COUNT INCLUDES THE [facility] Stop: 08/31/20 08:59 Last Admin: 08/01/20 08:16 Dose: 25 mg Documented by: Miscellaneous (*Pimavanserin*Order Awaiting Action) 1 ea N/A QS COUNT INCLUDES THE [facility] Stop: 08/31/20 07:59 Last Admin: 08/01/20 08:22 Dose: Not Given Documented by: Miscellaneous (Carbohydrates For Hypoglycemia ) 15 - 30 gm PO UD PRN PRN Reason: Hypoglycemia Protocol Stop: 08/31/20 07:21 Nitroglycerin (Nitroglycerin Sl 0.4 Mg/Tab Tab) 0.4 mg SL PRN PRN PRN Reason: Chest Pain Stop: 08/31/20 07:21 Last Admin: 08/01/20 11:03 Dose: 0.4 mg Documented by: Olanzapine (Olanzapine 2.5 Mg Tab) 2.5 mg PO HS COUNT INCLUDES THE [facility] Stop: 08/31/20 20:59 Ondansetron HCl (Ondansetron Inj 2 Mg/Ml 2 Ml Vial) 4 mg IV Q6H PRN PRN Reason: Nausea Stop: 08/31/20 07:21 Pantoprazole Sodium (Pantoprazole 40 Mg Tab) 40 mg PO QAM COUNT INCLUDES THE [facility] Stop: 08/31/20 08:59 Last Admin: 08/01/20 08:14 Dose: 40 mg Documented by: Pentoxifylline (Pentoxifylline 400mg Ext Rel Tab) 400 mg PO BID COUNT INCLUDES THE [facility] Stop: 08/31/20 08:59 Last Admin: 08/01/20 08:16 Dose: 400 mg Documented by: Polyethylene Glycol (Polyethylene (Miralax) 17 Gm Pack) 17 gm PO QAM COUNT INCLUDES THE [facility] Stop: 08/31/20 08:59 Last Admin: 08/01/20 08:16 Dose: 17 gm Documented by: Potassium Chloride (Potassium Chloride Crtab 20 Meq Tabcr) 20 meq PO QAM COUNT INCLUDES THE [facility] Stop: 08/31/20 08:59 Last Admin: 08/01/20 08:14 Dose: 20 meq Documented by: PG Care Time/CCT Total # of Minutes Spent Total Time Spent with Patient: Total time spent is greater than 50% in coordination of care (as documented) at patient's floor/unit and/or counseling patient: Coding Level of Care Code 26716 OBS Care - Level 2 Diagnoses Chest pain R07.9 Chest pain type: unspecified CAD in [place] artery I25.10 S/P CABG (coronary artery bypass graft) Z95.1 Headache R51.9 Headache chronicity pattern: unspecified pattern Headache type: unspecified Intractability: not intractable Hypertension I10 Hypertension type: essential hypertension (1) Headache Headache chronicity pattern: unspecified pattern Headache type: unspecified Intractability: not intractable Qualified Code(s): R51.9 - Headache, uns pecified (2) Chest pain Chest pain type: unspecified Qualified Code(s): R07.9 - Chest pain, unspecified (3) Hypertension Hypertension type: essential hypertension Qualified Code(s): I10 - Essential (primary) hypertension
[2020-08-01 13:40] LABS: D Dimer 590 ug/L FEU (0-500)
[2020-08-01] MEDS ORDERED: OPTIRAY 320 125ml IV ONE (13:59)
--- NOTE | 2020-08-01 14:41 | CT Scan Report ---
CT ANGIOGRAM OF THE CHEST CLINICAL HISTORY: Atypical chest pain. Possible pulmonary embolism. COMPARISON STUDY: Chest x-ray dated 08/01/2020, CT scan dated 05/16/2019 TECHNIQUE: Following the IV administration of 118 mL of Optiray-320, CT angiogram of the thorax was p erformed from the thoracic inlet to the lung bases utilizing the pulmonary embolus protocol. Images a re reviewed in the axial, sagittal, and coronal planes. IV contrast was administered without complica tion. MIP imaging was performed. A dose lowering technique was utilized adhering to the principles o f ALARA. CT DOSE: 685.29 mGy.cm FINDINGS: No pathologically enlarged axillary mediastinal or hilar lymph nodes were visualized. There is mild ectasia of descending thoracic aorta which measures 38 mm There were no pulmonary artery filling defects to indicate acute pulmonary embolism. There is a trace left pleural effusion. There is no pneumothorax. There is mild basilar atelectasis. There are coronary artery calcifications. IMPRESSION: 1. No evidence of acute pulmonary embolism 2. Trace left pleural effusion 3. Minor basilar atelectasis ACT 112: Negative or not required by law. Electronically signed by: Carlos Salazar M.D. 08/01/2020 2:40 PM
[2020-08-01] MEDS: DICLOFENAC SOD 1% GEL 100 GM TUBE EXT SCH ×2 (17:01→20:47)
--- NOTE | 2020-08-01 18:56 | History & Physical Bridge Note ---
Date of Service August 01, 2020 History & Physical Bridge Note I have examined the patient, reviewed the History & Physical and in the interval since the performance of the History & Physical I have noted the following changes of clinical significance: Patient was discussed with Dr. Pop of cardiology today. The patient reports that he has had continuous left-sided chest wall pain since 10 PM last night and initially was convinced that it was from his heart. I reviewed with him all of the results of today being normal for the heart including serially negative troponin x3, echocardiogram without wall motion abnormalities and preserved EF, EKGs without acute ischemia, and CT angiogram of the chest negative. He is directly tender to palpation over the left chest wall and reports that he has been doing a lot of snow shoveling and using the snowblower lately. Voltaren gel was ordered to be applied to the left chest wall 4 times a day and he is excepting that this is most likely musculoskeletal chest pain. Patient also reports that he got out of bed at 130 this morning and as he was walking towards the bathroom he felt lightheaded and weak all over like he was going to pass out. He then fell forward and hit his left forehead into the door. That is when his called for the ambulance. He reports he has had episodes of lightheadedness with standing in the past as well. He does wear compression stockings during the day but always takes them off at nighttime. He is taking Lasix daily. Review of recent cardiology visit shows that he was complaining of orthostasis symptoms at that time as well and was recommended to not take Lasix daily if continuing to have the symptoms. Patient also reports that he has been having significant return of his headaches over the last 2 months. Review of neurology notes shows that he was taken off of his Topamax sometime last year due to cognitive deficits. He had been on Topamax for history of migraine headaches. He also has a history of diabetic peripheral neuropathy. Vitals reviewed Gen: AAOx3, NAD HEENT: Anicteric sclerae, EOMI, PERRLA, no hematoma over left forehead but mild tenderness to palpation at the site where he has had hit the door CV: RRR no mgr nl S1S2, positive tenderness palpation over left pectoralis muscle at site of pain Pulm: CTAB no wcr Abd: +BS soft NT ND no masses or hernias Ext: No edema Skin: No rashes, warm/dry Neuro: Full strength throughout, cranial nerves II through XII intact, sensation decreased to light touch in lower extremities to the knees Laboratory values from admission reviewed, D-dimer mildly elevated CT angiogram the chest negative for PE, dissection, or pneumonia ECGs reviewed 75-year-old male with history of CAD, DM 2, GERD, CVA, hyperlipidemia, HTN, CKD stage III, mild cognitive impairment, and drug-induced parkinsonism, here with orthostasis leading to fall as well as left-sided chest pain that is atypical. Chest pain-definitely tender to palpation on exam and reproducible, troponin negative x3, echo with moderate MR and no wall motion abnormalities, preserved EF. ECG is without acute ischemia Appreciate cardiology consultation Plan to apply Voltaren gel 4 times daily Continue home cardiac medications Orthostasis in the setting of diabetic peripheral neuropathy leading to fall and mild head trauma at home -Recommend VIPUL hose at nighttime at home and reviewed how to squeeze his muscles in the legs before he gets up from a lying down position -Discontinue p.o. Lasix and p.o. potassium from home He received IV fluids upon admission -Check orthostatics again in the morning PT/OT consultation Recurrent daily migraines-we will consult neurology to see him while he is here given migraines and fall to see if he should be back on prophylactic medication Psychiatric/mood disorder-review of psychiatry and neurology notes show that he has been tried on multiple medications in the past. His daughter reports that since he was weaned off olanzapine 2 to 3 months ago, his mood has worsened he has become quite irritable. He is not on olanzapine-this was ordered for tonight but I have discontinued it as he is not taking it at home due to suspected drug-induced parkinsonism. Follow-up as an outpatient with psychiatry Discussed all care with his daughter on the phone Can likely be discharged home tomorrow if improved. Ruled out for acute coronary syndrome. Check orthostatics in the morning. Monitor on telemetry overnight on observation PT/OT consults tomorrow Neurology consult tomorrow
[2020-08-01] MEDS ORDERED: MEMANTINE HCL 10 MG TAB PO SCH (21:00)
[2020-08-01] MEDS ORDERED: PIMAVANSERIN TARTRATE PO SCH (21:00)
[2020-08-01] MEDS ORDERED: OLANZAPINE 2.5 MG TAB PO SCH (21:00)
--- NOTE | 2020-08-02 05:33 | Electrocardiogram Report ---
Test Reason : Blood Pressure : / mmHG Vent. Rate : 066 BPM Atrial Rate : 066 BPM P-R Int : 158 ms QRS Dur : 124 ms QT Int : 432 ms P-R-T Axes : 037 -49 012 degrees QTc Int : 452 ms Sinus rhythm with Premature atrial complexes Left axis deviation Right bundle branch block Inferior infarct (cited on or before 19-JAN-2016) Abnormal ECG When compared with ECG of 09-MAY-2020 11:25, Premature atrial complexes are now Present Confirmed by Kain Pop ([id number]) on 08/02/2020 5:32:46 AM Referred By: REFERRED SELF Confirmed By:Kain Pop
--- NOTE | 2020-08-02 05:43 | Electrocardiogram Report ---
Test Reason : Blood Pressure : / mmHG Vent. Rate : 065 BPM Atrial Rate : 065 BPM P-R Int : 144 ms QRS Dur : 122 ms QT Int : 412 ms P-R-T Axes : 035 109 061 degrees QTc Int : 428 ms Normal sinus rhythm Right bundle branch block Lateral infarct , age undetermined Abnormal ECG When compared with ECG of 01-AUG-2020 02:18, Premature atrial complexes are no longer Present QRS axis Shifted right Lateral infarct is now Present Criteria for Inferior infarct are no longer Present Confirmed by Kain Pop ([id number]) on 08/02/2020 5:43:29 AM Referred By: REFERRED SELF Confirmed By:Kain Pop
[2020-08-02 07:01] LABS: Basophils # (auto) 0.01 K/uL (0-0.2); Basophils % (auto) 0.3 %; Eosinophils # (auto) 0.08 K/uL (0-0.5); Eosinophils % (auto) 2.2 %; Hematocrit (blood only) 40.2 % (42-52); Hemoglobin 13.7 g/dL (14.0-18.0); Immature Granulocytes # (auto) 0.01 K/uL (0.00-0.02); Immature Granulocytes % (auto) 0.3 %; Lymphocytes # (auto) 1.03 K/uL (1.2-3.4); Lymphocytes % (auto) 28.7 %; Mean Corpuscular Hemoglobin 30.8 pg (25-34); Mean Corpuscular Hgb Conc 34.1 g/dL (32-36); Mean Corpuscular Volume 90.3 fL (80-100); Mean Platelet Volume 10.4 fL (7.4-10.4); Monocytes # (auto) 0.27 K/uL (0.11-0.59); Monocytes % (auto) 7.5 %; Neutrophils # (auto) 2.19 K/uL (1.4-6.5); Platelet Count 201 K/uL (130-400); RDW Coefficient of Variation 13.6 % (11.5-14.5); RDW Standard Deviation 45.3 fL (36.4-46.3); Red Blood Count 4.45 M/uL (4.7-6.1); White Blood Count 3.59 K/uL (4.8-10.8)
[2020-08-02 07:30] LABS: BUN Creatinine Ratio 12.6 (10-20); Calcium 8.7 mg/dl (8.5-10.1); Creatinine Clr Calc Pharmacy 58.4 ml/min; Est GFR (Non-African American) 56.9; Potassium 4.3 mmol/L (3.5-5.1)
--- NOTE | 2020-08-02 07:50 | XCELERA ---
[id number]
[2020-08-02] MEDS: PENTOXIFYLLINE 400MG EXT REL TAB PO SCH (07:53)
[2020-08-02] MEDS: METOPROLOL SUCC 25MG EXT REL TAB PO SCH (07:53)
[2020-08-02] MEDS: PANTOprazole 40 MG TAB PO SCH (07:54)
[2020-08-02] MEDS: ATORVASTATIN 40 MG TAB PO SCH (07:54)
[2020-08-02] MEDS: CYANOCOBALAMIN 500 MCG TABLET (VITAMIN B-12) PO SCH (07:54)
[2020-08-02] MEDS: CLOPIDOGREL BISULFATE 75 MG TAB PO SCH (07:54)
[2020-08-02] MEDS: DONEPEZIL HCL 10 MG TAB PO SCH (07:54)
[2020-08-02] MEDS: MEMANTINE HCL 5 MG TAB PO SCH (07:55)
[2020-08-02] MEDS: ENOXAPARIN INJ 40 MG/0.4 ML SYR SQ SCH (07:55)
[2020-08-02] MEDS: POLYETHYLENE (MIRALAX) 17 GM PACK PO SCH (07:55)
[2020-08-02] MEDS: DICLOFENAC SOD 1% GEL 100 GM TUBE EXT SCH ×2 (07:59→12:23)
[2020-08-02] MEDS: INSULIN GLARGINE SOLOSTAR 100 UNITS/ML 3 ML PEN SC SCH (08:02)
[2020-08-02] MEDS: INSULIN ASPART 100 UNITS/ML 3 ML PEN SC SCH ×2 (08:02→12:22)
--- NOTE | 2020-08-02 10:57 | Neurology Consultation ---
Date of Consultation August 02, 2020 Assessment & Plan (1) Cervicogenic headache: (2) Orthostatic dizziness: (3) Parkinsonism: Chronic cervicogenic headache and orthostatic dizziness occurring in the context of degenerative arthritis of the cervical spine and atypical parkinsonism. The cause of his parkinsonism is not completely clear. He appears to have relatively late onset psychotic symptomatology and has been evaluated by psychiatry. His psychiatric symptoms could be related to an underlying neurodegenerative process such as vascular dementia, frontotemporal dementia, or Lewy body disease. A cortical basal degeneration has also been considered. I do not think I would make any acute adjustments in his medication regimen at this point in time. He is not really complaining of a significant headache this morning. However, if his headaches remain problematic or significantly escalate, it may be reasonable to try a low-dose of gabapentin or possibly venlafaxine. Dr. Stokes had suggested potentially starting venlafaxine or a CGRP antagonist if his headaches were to recur. It may also be reasonable to refer him to the [facility] pain clinic for treatment of cervicogenic headache. Patient may follow-up with Dr. Stokes in neurology clinic. I would avoid Sinemet and dopamine agonists at this point in time as these medications may trigger psychosis. Patient should continue with Nuplazid, donepezil, and memantine. Patient should continue with Zyprexa as well, managed by Dr. Knox, psychiatry. History of Present Illness Reason for Consultation: Headaches Requesting Physician: Lillian Schuster MD Attending Physician: Suresh Kimbrough DO History of Present Illness The patient is a 75-year-old male who presented to the emergency department yesterday complaining of chest pain. He has had a negative cardiac evaluation in spite of his history of coronary artery disease, and has been evaluated by cardiology. He apparently had an episode of lightheadedness with an associated feeling of generalized weakness that occurred 1:30 in the morning, prior to his assessment in the emergency department. He felt as if he was going to pass out and fell forward, striking his forehead into the door. There was no loss of consciousness. The patient relays a history of recurrent dizziness that typically occurs upon standing. This issue has been present for nearly the past year. He has been following with Dr. Stokes, in neurology clinic for parkinsonism, memory loss, and headaches/history of migraine. The cause of his parkinsonism is a bit unclear although he may have an element of neuroleptic induced parkinsonism versus early Lewy body dementia. A cortical basal picture has also been considered given abnormal posturing of the left upper limb. I note that he had been on Topamax previously for headaches although this medication was discontinued as it may have been contributing to some of his cognitive difficulty. He is currently prescribed Nuplazid which is typically used for Parkinson's associated hallucinations. He is not prescribed Sinemet or another medication for Parkinson's disease at this point in time. He is prescribed donepezil and memantine for dementia. I see that he scored 21 out of 30 on a slums test recently. The patient does endorse a history of frequent headache, typically posterior, cervical occipital region. His headache is typically present every day, sometimes upon awakening. He finds the headache typically improves with laying down. He has a history of cervical spinal stenosis and associated arthritic changes throughout the cervical spine. He does not complain of significant nausea or light or sound sensitivity with his headaches, at least at this time. He does not appear to have an obvious resting tremor although does tend to hold the left upper limb and a somewhat flexed "basal ganglionic" posture. Allergies Allergy/AdvReac Type Severity Reaction Status Date / Time morphine AdvReac Severe "STOPS MY Verified 08/01/20 03:00 HEART" hydromorphone [From Dilaudid] AdvReac Intermediate unresponsiv Verified 08/01/20 03:00 eness trazodone AdvReac Intermediate GI UPSET Verified 08/01/20 03:00 diazepam AdvReac Mild HALLUCINATE Verified 08/01/20 03:00 S propoxyphene AdvReac Mild DRUG Verified 08/01/20 03:00 INTOLERANCE Home Medications Medication Instructions Recorded Confirmed Type acetaminophen [Tylenol Extra 1,000 mg PO Q8H PRN 06/05/19 08/01/20 History Strength] polyethylene glycol 3350 17 17 gm PO QAM 07/16/19 08/01/20 History gram/dose oral powder blood-glucose meter #1 ea 10/15/19 06/24/20 Rx lancets #204 ea 10/15/19 06/24/20 Rx potassium chloride 20 mEq 20 meq PO QAM #90 tab 10/15/19 08/01/20 Rx tablet,extended release memantine 10 mg tablet 10 mg PO QPM #90 tab 11/24/19 08/01/20 Rx memantine 5 mg tablet 5 mg PO QAM #90 tab 11/24/19 08/01/20 Rx atorvastatin 40 mg tablet 40 mg PO QAM #90 tab 12/02/19 08/01/20 Rx pen needle, diabetic 31 gauge x #30 ea 02/11/20 06/24/20 Rx 10/31" calcium carbonate-vitamin D3 1 cap PO QAM 03/14/20 08/01/20 History clopidogrel 75 mg PO QAM 05/09/20 08/01/20 History cyanocobalamin (vitamin B-12) 1,000 mcg PO QAM 05/09/20 08/01/20 History [Vitamin B-12] donepezil 10 mg PO QAM 05/09/20 08/01/20 History metoprolol succinate 25 mg PO QAM 05/09/20 08/01/20 History olanzapine 2.5 mg PO HS 05/09/20 08/01/20 History pantoprazole 40 mg PO QAM 05/09/20 08/01/20 History pentoxifylline 400 mg PO BID 05/09/20 08/01/20 History furosemide 20 mg tablet 20 mg PO QAM tab 05/31/20 08/01/20 History insulin glargine 100 unit/mL (3 45 unit SUBCUT HS #45 ml 06/30/20 08/01/20 Rx mL) subcutaneous pen insulin lispro 100 unit/mL 10 - 20 unit SQ TID ml 07/01/20 08/01/20 History subcutaneous pen blood sugar diagnostic #100 ea 07/05/20 Rx pimavanserin 34 mg capsule 34 mg PO PM 30 Days #30 cap 07/21/20 08/01/20 Rx Patient History Medical History Acute diastolic (congestive) heart failure (06/2019) Arsenic poisoning Asymptomatic cholelithiasis Atypical chest pain Benign colonic polyp CAD in [place] artery Cellulitis Cognitive disorder Controlled type 2 diabetes mellitus with neurologic complication, with long-term current use of insulin Conversion disorder Delusional disorder, somatic type Diabetes mellitus, type 2 Diabetic peripheral neuropathy Dyslipidemia Eczematous dermatitis Esophageal reflux Fracture of distal end of radius with malunion History of tobacco use Hyperlipidemia Hypertension Intermittent explosive disorder Kidney stone on right side Left wrist fracture Leg edema, right Migraines, neuralgic Myocardial Infarction 2004--follows with Dr. Mejia Nephrolithiasis Neurological deficit present Neuropathy Noninfected skin tear of left lower extremity Osteoarthritis Osteopenia determined by x-ray Raynauds phenomenon Stage III chronic kidney disease Thyroid disorder screening Tubular adenoma of colon Venous (peripheral) insufficiency Vitamin D deficiency Wound of left foot Surgical History History of ankle surgery History of arthroscopy of left knee History of cardiac cath x3-4, last 2014 History of carpal tunnel release of both wrists History of colonoscopy History of heart artery stent (1998) History of lithotripsy x2 History of lumbar discectomy x2 History of open reduction and internal fixation (ORIF) procedure left ankle--hardware in place History of right cataract extraction History of tonsillectomy and adenoidectomy S/P CABG (coronary artery bypass graft) S/P sinus surgery Status post uvulopalatopharyngoplasty Family History Father Diabetes Prostate cancer Colorectal cancer Brother Prostate cancer Uncle Colorectal cancer Father Myocardial infarction Mother Myocardial infarction Other Dementia No family history of adverse response to anesthesia Denies family history of Ovarian cancer Breast cancer Social History Smoking Status: Former smoker Tobacco Type: Cigarettes Age Quit Using Tobacco: 71; packs per day: 3; Cigarettes Per Day: Camels since 7 years old.; Second Hand Exposure: No; Hx Alcohol Use: No Hx Substance Use: No Preferred Language: Bengali Communication Ability: Effective Visual Impairment: No Limitations Emergency Response Officer Required: No Beliefs That Will Affect Care: None marital status: marital status details: 3 children Current Living Situation: Spouse current occupational status: retired How many Children do You have: 2 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: 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); chemical exposure Feels Safe at Home: Yes Seatbelt Use: always Assistive Devices: None Review of Systems Constitutional: no fever and no chills Eyes: no blind spots and no diplopia Ear, Nose, Mouth, Throat: no hearing loss Respiratory: no cough and no dyspnea Cardiovascular: + chest pain Gastrointestinal: no nausea and no vomiting Genitourinary: no urinary incontinence Musculoskeletal: + neck pain; no myalgia Integumentary: no rash and no lesions Neurologic: as per Subjective / HPI, + gait abnormality, + dizziness and + headache(s); no tremor(s) Psychiatric: no depression and no anxiety History of psychosis noted. Hematologic / Lymphatic: no easy bleeding and no easy bruising Exam (Neuro) Constitutional: well developed and well nourished; no acute distress Eyes: normal visual leo by confrontation, PERRL, normal accommodation and EOM intact bilaterally; no fundoscopic abnormality, no nystagmus and no papilledema Cardiovascular: Vessels: normal carotid upstroke; no carotid bruit Neurologic: Oriented to:: Person, Place and Time Memory: Remote Intact; negative Short Term Intact Attention: Span Intact; negative Concentration Intact Language: Naming Objects and Repeating Phrases Speech Fluency: negative Dysarthria Speech Aphasia: negative Aphasia Fund of Knowledge: Current Events, Past History and Vocabulary Cranial Nerves: Normal II (Visual leo full to confrontation, visual acuity normal), III, IV, (Pupils equal round reactive to light and accommodation, eye movements normal), V (Facial sensation intact), VII (There is no facial droop or weakness), VIII (Hearing intact), IX, X (Palate elevates to midline), XI (Shoulder shrug intact) and XII (Tongue protrudes to midline) Motor Strength: Normal Lower Extremities and Normal Upper Extremities; negative Pronator Drift Rigidity: Rigidity Muscle Bulk/Involuntary Movements: No Involuntary Movements; negative Muscle Atrophy Sensation: Light Touch Intact, Pain/Temperature Intact, Vibration Intact and Proprioception Intact Coordination: Normal, Limited Balance and Finger-Nose Abnormal Laterality: Left; negative Dysdiadochokinesia and Heel-Alfaro Abnormal Deep Tendon Reflexes: Rt Triceps: 1+, Lt Triceps: 1+, Rt Biceps: 1+, Lt Biceps: 1+, Rt Brachioradialis: 1+, Lt Brachioradialis: 1+, Rt Patellar: 1+, Lt Patellar: 1+, Rt Ankle: 1+ and Lt Ankle: 1+ Special Tests: negative Babinski Present Gait: Stooped Results & Data ([facility]) Vital Signs (Past 12 Hours) Vital Signs Temp Pulse Pulse Resp BP Pulse Ox 08/02/20 08:30 64 08/02/20 07:37 36.5 C 59 L 18 136/83 98 08/02/20 04:00 36.6 C 69 18 132/81 97 08/01/20 23:59 36.5 C 63 18 113/67 95 08/01/20 22:50 62 Laboratory Results WBC 3.59, hemoglobin 13.7, hematocrit 40.2, platelet count 201, sodium 141, potassium 4.3, BUN 16, creatinine 1.24, glucose 90, calcium 8.7, magnesium 2.2, AST 31, ALT 32, troponin less than 0.[address] of the head completed yesterday revealed patchy white matter hypodensities likely consistent with chronic small vessel disease. No pathologic ventricular dilatation. No acute findings. These findings were observed by the interpreting radiologist. I reviewed the images as well and agree. Brain MRI completed at an outside facility in September 2019 revealed minimal small vessel change as well as tiny focal areas of susceptibility artifact on SWI at the left thalamus and right occipital lobe consistent with tiny areas of old hemorrhage. A cervical spine MRI completed at an outside facility this past September revealed multilevel degenerative changes of the cervical spine with moderate to severe neural foraminal stenosis at multiple levels. An echocardiogram completed today reveals a normal ventricular size and systolic function, ejection fraction 55 to 60%, small area of akinesis involving the basal inferior and basal inferoseptal segments. Mild concentric left ventricular hypertrophy. The left atrium is moderately dilated. No atrial septal defect. Electrocardiogram reveals a normal sinus rhythm, right bundle branch block. 65 bpm. PG Care Time/CCT Total # of Minutes Spent Total Time Spent with Patient: Total time spent is greater than 50% in coordination of care (as documented) at patient's floor/unit and/or counseling patient: Coding Level of Care Code 53718 Initial Inpt Care Lvl 3 Diagnoses Cervicogenic headache R51.9 Orthostatic dizziness R42 Parkinsonism G20
--- NOTE | 2020-08-04 08:05 | Discharge Summary ---
Date of Service August 02, 2020 Admission HPI Per Admitting Provider Tian Blanchard is a 75yo C male with history of CAD s/p CABG x 3V performed in May 2019 at [facility] [place] (KAUR-LAD, SVG-OM, SVG-PDA). Patient follows routinely with Cardiology. Last seen in June. He presents with chest pain that began abruptly the evening of 07/31/20 at 22:00 while the patient was laying in bed. Pain is central in location with radiation to his neck and shoulders. Constant, 10/10 in severity. Possibly worse with deep breaths and exertion. No relieving factors. He also has been having palpitations, dizziness, near syncope and blurry vision. He got some relief with Nitro - pain decreased to 9/10. . He states that this current pain is very much like the pain he experienced when he had his IL in 2019. Denies diaphoresis, nausea, vomiting Principal Diagnosis Chest pain, chronic headaches Discharge Exam Constitutional WD/WN, vitals as above Neck trachea midline, no thyromegaly Respiratory normal respiratory effort, lungs clear to auscultation Cardiovascular RRR, no murmur, no edema Gastrointestinal (Abdomen) normal bowel sounds, soft, nontender, no hepatosplenomegaly Musculoskeletal no cyanosis or clubbing, extremities motor strength 5/5 Skin no rashes, warm and dry Neurologic patellar DTR's 2+ bilat, sensation intact and PERRL, EOMI, accommodation nl, no face palsy, no dysarthria Psychiatric A+Ox3, euthymic affect Lymphatic no cervical or axillary lymphadenopathy Discharge Data Allergies Allergy/AdvReac Type Severity Reaction Status Date / Time morphine AdvReac Severe "STOPS MY Verified 08/01/20 03:00 HEART" hydromorphone [From Dilaudid] AdvReac Intermediate unresponsiv Verified 08/01/20 03:00 eness trazodone AdvReac Intermediate GI UPSET Verified 08/01/20 03:00 diazepam AdvReac Mild HALLUCINATE Verified 08/01/20 03:00 S propoxyphene AdvReac Mild DRUG Verified 08/01/20 03:00 INTOLERANCE Consultations 08/01/20 04:05 ED Decision to Admit Stat 08/01/20 07:22 Consult Cardiology Routine 08/01/20 18:38 Consult Neurology Routine Ordered Studies 08/01/20 02:31 CT head/brain wo con Urgent 08/01/20 13:53 CT angio chest PE protocol Stat Hospital Course (1) Chest pain: h/o CABG, states pain is similar to previous cardiac pain. There is a component of reproducible pain. -Telemetry monitoring, no arrhythmias -troponin negative x 3 -Continue Home meds - Plavix, Metoprolol, Atorvastatin relief with Voltarn gel, continue PRN on discharge ACS ruled out while here (2) Diabetes mellitus, type 2: Well controlled at present -Lantus and ISS (3) Esophageal reflux: Chronic -Continue Protonix (4) History of CVA (cerebrovascular accident): Stable -Continue Plavix, Atorvastatin (5) Hyperlipidemia: Chronic -Continue Atorvastatin (6) Hypertension: Stable -Continue Metoprolol (7) Stage III chronic kidney disease: Chronic. Stable -Continue to monitor renal function (8) Cognitive disorder: ?Dementia -Continue Memantine and Aricept (9) Cervicogenic headache: long standing issue, has caused him headaches on most days can lead to migraines reviewed outpatient neurology notes, suggested trying Effexor if the headaches persisted d/w patient and his daughter, agreed to the Effexor will start Effexor 37.5mg extended release, take every morning after three days increase to 75mg and continue this dose until seen by PCP maximum dose for migraine prophylaxis is 150mg daily neurology also suggested seeing outpatient pain management as option for headache management (10) Orthostatic dizziness: suggest using compression stockings at night educated on importance of slowly changing positions, especially when standing up he is euvolemic, hold his Lasix (11) Parkinsonism: patient will have outpatient testing ordered by Dr. Stokes to determine if he has Parkinson's disease for this reason he has been off his Zyprexa until he gets the test follow up with Dr. Stokes Total Time Total Time Spent Total Time Spent (In Minutes): 25 Total Time Includes: Examination of the Patient, Discharge Planning, Medication Reconciliation and Communication With Other Providers Discharge Plan Discharge Items Patient Disposition: Home - Self-Care Reason For Visit: CHEST PAIN Discharge Diagnosis: chest pain, muscular chronic headaches fall Condition on Discharge: Good Goals: trial of venlafaxine for migraine prophylaxis follow up for testing for Parkinson's disease Activity: Resume your previous activity Weightbearing: Full weightbearing Non-emergency contact: Primary Care Provider Call non-emergency contact if: you have any medication questions and your symptoms worsen Follow-up/Referrals: Fox Moran MD [Primary Care Provider] - 08/09/20 10:15 am (The doctor would like you to have a follow up appointment in one week. Your appointment is with Dr Moran's physician prosthetics assistant, Allison Gonzalez. If you need to change this appointment, please call [phone].) Diet: Carb Consistent or DM2 and Heart Healthy Addtl Attending Provider Instructions: Medications: - EFFEXOR: start for migraine prevention, take 37.5mg in the morning, after three days you can increase to 75mg (2 tablets) in the morning and continue this until you see Dr. Moran or Dr. Stokes max dose for this is 150mg and you may require titrate up to this dose to get the full benefit of migraine prevention - VOLTAREN GEL: apply up to four times a day as needed for chest pain, suspected to be muscular - Lasix and Potassium: stop these medications for now, due to possible orthostatic changes causing you to fall follow up for testing for Parkinsonism syndrome that was ordered by Dr. Stokes chest pain: no evidence that this is related to your heart, suspected to be muscular fall at home: ambulated independently around entire nurses station today, no issues, cleared to return home possible orthostatic changes contributing, Dr. Schuster stopped Lasix to help keep volume stable recommend obtaining compression stockings, apply to lower legs up to knee in the evening do not change positions quickly, pause between laying to sitting and then from sitting to standing, make sure you are not light headed prior to walking Pending Studies at Discharge: No Stand-Alone [facility] Medications and DC Order Prescriptions: New diclofenac sodium [Voltaren] 1 % Gel 2 g EXT QID PRN (Reason: Pain) 7 Days Qty: 100 RF: 0 venlafaxine [Effexor XR] 37.5 mg capsule,extended release 24hr 37.5 mg PO DAILY 30 Days Qty: 30 RF: 3 Continued memantine 5 mg tablet 5 mg PO QAM Qty: 90 RF: 3 memantine 10 mg tablet 10 mg PO QPM Qty: 90 RF: 3 atorvastatin 40 mg tablet 40 mg PO QAM Qty: 90 RF: 3 (DME) pen needle, diabetic [BD Ultra-Fine Short Pen Needle] 31 gauge x 5/16" needle See Dose Instructions .ROUTE .MEDSUPPLY Qty: 30 RF: 5 Lantus Solostar U-100 Insulin 100 unit/mL (3 mL) insulin pen 45 unit subcut HS Qty: 45 RF: 3 (DME) OneTouch Ultra Blue Test Strip Strip See Rx Instructions .ROUTE .MEDSUPPLY Qty: 100 RF: 3 Nuplazid 34 mg capsule 34 mg PO PM 30 Days Qty: 30 RF: 2 insulin lispro [Humalog KwikPen Insulin] 100 unit/mL insulin pen 10 - 20 unit SQ TID RF: 0 (DME) lancets [OneTouch UltraSoft Lancets] Misc See Rx Instructions .ROUTE .MEDSUPPLY Qty: 204 RF: 3 (DME) blood-glucose meter [OneTouch Ultra2 Meter] Kit See Rx Instructions .ROUTE .MEDSUPPLY Qty: 1 RF: 0 acetaminophen [Tylenol Extra Strength] 500 mg tablet 1,000 mg PO Q8H PRN (Reason: Pain) RF: 0 polyethylene glycol 3350 [Miralax] 17 gram/dose powder 17 gm PO QAM RF: 0 calcium carbonate-vitamin D3 600 mg (1,500 mg)-2,500 unit capsule 1 cap PO QAM RF: 0 cyanocobalamin (vitamin B-12) [Vitamin B-12] 1,000 mcg Tablet 1,000 mcg PO QAM RF: 0 pentoxifylline 400 mg tablet extended release 400 mg PO BID RF: 0 donepezil 10 mg tablet 10 mg PO QAM RF: 0 clopidogrel 75 mg tablet 75 mg PO QAM RF: 0 pantoprazole 40 mg tablet,delayed release (DR/EC) 40 mg PO QAM RF: 0 metoprolol succinate 25 mg tablet extended release 24 hr 25 mg PO QAM RF: 0 Discontinued furosemide 20 mg tablet 20 mg PO QAM RF: 0 potassium chloride [K-Tab] 20 mEq tablet extended release 20 meq PO QAM Qty: 90 RF: 3 olanzapine 5 mg tablet 2.5 mg PO HS RF: 0 Discharge Orders: Discharge Order (Routine); Ordered 08/02/20 Ordered By: Suresh Kimbrough Admission Data Admit Date/Time: 08/01/20 06:01 Attending Provider: Suresh Kimbrough Admit Provider: Amisha Ramos Primary Care Provider: Fox Moran Other Providers: Amisha Ramos ; Kain Pop ; Yina Stokes Other Interventions: Discharge Summary Assessment (RN) Last Done: 08/02/20 15:31 Coding Level of Care Code 27307 OBS Care - Discharge Diagnoses Chest pain R07.9 Chest pain type: unspecified Diabetes mellitus, type 2 E11.42; Z79.4 Diabetes mellitus complication detail: with polyneuropathy Diabetes mellitus complication status: with neurologic complications 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
== END 2020-08-02 16:30 | disposition home or self-care (01) ==
LOC: ED 02:14 → 2W 02:14 → SUATTDRO 06:01 → 2W 06:54

== ENCOUNTER 2020-10-31 20:24 | Inpatient (IN) ==
[2020-10-31] MEDS ORDERED: SODIUM CHLORIDE 0.9% 1000ML 1,000 ML IV SCH (20:30)
[2020-10-31] MEDS ORDERED: OPTIRAY 350 500ml IV ONE (20:31)
[2020-10-31 20:49] LABS: Basophils # (auto) 0.02 K/uL (0-0.2); Basophils % (auto) 0.4 %; Eosinophils # (auto) 0.11 K/uL (0-0.5); Hematocrit (blood only) 41.4 % (42-52); Hemoglobin 13.7 g/dL (14.0-18.0); Immature Granulocytes # (auto) 0.01 K/uL (0.00-0.02); Immature Granulocytes % (auto) 0.2 %; Lymphocytes % (auto) 20.3 %; Mean Corpuscular Hgb Conc 33.1 g/dL (32-36); Mean Corpuscular Volume 90.6 fL (80-100); Mean Platelet Volume 11.1 fL (7.4-10.4); Monocytes # (auto) 0.54 K/uL (0.11-0.59); Neutrophils # (auto) 3.64 K/uL (1.4-6.5); Neutrophils % (auto) 67.1 %; Platelet Count 176 K/uL (130-400); RDW Coefficient of Variation 14.5 % (11.5-14.5); RDW Standard Deviation 48.3 fL (36.4-46.3); Red Blood Count 4.57 M/uL (4.7-6.1); White Blood Count 5.42 K/uL (4.8-10.8)
--- NOTE | 2020-10-31 20:56 | Emergency Department Note ---
History of Present Illness General Chief complaint: Stroke Alert Stated complaint: STROKE SYMPTOMS Source: patient and EMS Mode of arrival: EMS Limitations: no limitations History of Present Illness Provider complaint: Possible stroke Onset (ago): hour(s) 3 Location: upper extremity and lower extremity Associated symptoms: + denies other symptoms Treatments prior to arrival: none This is a 75-year-old male who presents via EMS due to concern for possible stroke. Patient states that around 5 PM when he was in the bathroom he suddenly felt his left arm and left leg go weak. States he had difficulty standing up, however he did not fall. Patient called for his and after some time she eventually woke up as she had been sleeping. Patient states he has a prior history of similar symptoms with a stroke. His prior deficits had completely resolved though. Patient does note that he uses Plavix, is not certain about any other anticoagulation. No family was accompanying him via EMS. A stroke alert was called prehospital and patient was taken immediately to CAT scan. Patient denied any recent fevers or illness. Denied any medication changes. Denied any recent trauma. Patient denied any history of significant bleeding including intracranial hemorrhage. It is unclear why patient waited so long to contact EMS to come in for additional evaluation. Pt seen during a time of high acuity and national emergency pandemic while wearing PPE. Home Medications Medication Instructions Recorded Confirmed Type acetaminophen [Tylenol Extra 1,000 mg PO Q8H PRN 06/05/19 10/31/20 History Strength] polyethylene glycol 3350 17 17 gm PO QAM 07/16/19 10/31/20 History gram/dose oral powder atorvastatin 40 mg tablet 40 mg PO QAM #90 tab 12/02/19 10/31/20 Rx calcium carbonate-vitamin D3 1 cap PO QAM 03/14/20 10/31/20 History clopidogrel 75 mg PO QAM 05/09/20 10/31/20 History cyanocobalamin (vitamin B-12) 1,000 mcg PO QAM 05/09/20 10/31/20 History [Vitamin B-12] donepezil 10 mg PO QAM 05/09/20 10/31/20 History metoprolol succinate 25 mg PO QAM 05/09/20 10/31/20 History pentoxifylline 400 mg PO BID 05/09/20 10/31/20 History insulin glargine 100 unit/mL (3 45 unit SUBCUT HS #45 ml 06/30/20 10/31/20 Rx mL) subcutaneous pen insulin lispro 100 unit/mL 20 - 40 unit SQ .COMPLEX #15 ml 09/15/20 10/31/20 Rx subcutaneous pen pantoprazole 40 mg tablet,delayed 40 mg PO QAM #90 tab 09/20/20 10/31/20 Rx release memantine 5 mg tablet 5 mg PO BID 60 Days #120 tab 09/22/20 10/31/20 Rx pimavanserin 34 mg capsule 34 mg PO PM 30 Days #30 cap 09/22/20 10/31/20 Rx furosemide 40 mg tablet 40 mg PO WK PRN #30 tab 10/07/20 10/31/20 Rx venlafaxine 75 mg capsule,extended 150 mg PO DAILY 90 Days #180 cap 10/28/20 10/31/20 Rx release 24 hr Allergies Allergy/AdvReac Type Severity Reaction Status Date / Time morphine AdvReac Severe "STOPS MY Verified 10/31/20 21:27 HEART" hydromorphone [From Dilaudid] AdvReac Intermediate unresponsiv Verified 10/31/20 21:27 eness trazodone AdvReac Intermediate GI UPSET Verified 10/31/20 21:27 diazepam AdvReac Mild HALLUCINATE Verified 10/31/20 21:27 S propoxyphene AdvReac Mild DRUG Verified 10/31/20 21:27 INTOLERANCE Past Med/Surg History Medical History Acute diastolic (congestive) heart failure (06/2019) Arsenic poisoning Asymptomatic cholelithiasis Atypical chest pain Benign colonic polyp CAD in [place] artery Cellulitis Cognitive disorder Controlled type 2 diabetes mellitus with neurologic complication, 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 Mejia Nephrolithiasis Neurological deficit present Neuropathy Noninfected skin tear of left lower extremity Osteoarthritis Osteopenia determined by x-ray Raynauds phenomenon Stage III chronic kidney disease Thyroid disorder screening Tubular adenoma of colon Venous (peripheral) insufficiency Vitamin D deficiency Wound of left foot Surgical History History of ankle surgery History of arthroscopy of left knee History of cardiac cath x3-4, last 2014 History of carpal tunnel release of both wrists History of colonoscopy History of heart artery stent (1998) History of lithotripsy x2 History of lumbar discectomy x2 History of open reduction and internal fixation (ORIF) procedure left ankle--hardware in place History of right cataract extraction History of tonsillectomy and adenoidectomy S/P CABG (coronary artery bypass graft) S/P sinus surgery Status post uvulopalatopharyngoplasty Family History Father Diabetes Prostate cancer Colorectal cancer Brother Prostate cancer Uncle Colorectal cancer Father Myocardial infarction Mother Myocardial infarction Other Dementia No family history of adverse response to anesthesia Denies family history of Ovarian cancer Breast cancer Social History Smoking Status: Former smoker Tobacco Type: Cigarettes Age Quit Using Tobacco: 71; packs per day: 3; Cigarettes Per Day: [place] since 7 years old.; Second Hand Exposure: No; Hx Alcohol Use: No Hx Substance Use: No Preferred Language: Mexican Communication Ability: Effective Visual Impairment: No Limitations Hearing Ability: Normal Shirt Maker Required: No Beliefs That Will Affect Care: None marital status: marital status details: 3 children Current Living Situation: Spouse current occupational status: retired How many Children do You have: 2 Other Information That Helps Us Care for You: No other: 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 Unobtainable due to cognitive status Physical Exam Vital Signs Vital Signs - 24 hr 10/31/20 20:37 10/31/20 20:40 10/31/20 20:41 Temperature 37.0 C Temperature Source Oral Pulse Rate 72 71 Pulse Rate [Right Radial] Pulse Rate from SpO2 Sensor 71 Pulse Rhythm [Right Radial] Pulse Strength [Right Radial] Respiratory Rate 18 Respiratory Effort / Characteristics Respiratory Depth Respiratory Pattern Blood Pressure 141/82 H 141/82 H Blood Pressure [Right Arm] Blood Pressure Mean 101 101 Blood Pressure Mean [Right Arm] Blood Pressure Position Lying Blood Pressure Position [Right Arm] Pulse Oximetry 96 96 97 Oxygen Delivery Method Room Air Room Air Sepsis Recent Fever Within 48 Hours No Sepsis New/Unexplained Change in Mental Status No Sepsis Action Taken by Nursing No Action Required 10/31/20 20:44 10/31/20 20:50 10/31/20 21:30 Temperature 37.0 C Temperature Source Oral Pulse Rate 69 63 Pulse Rate [Right Radial] 64 Pulse Rate from SpO2 Sensor 70 63 Pulse Rhythm [Right Radial] Pulse Strength [Right Radial] Respiratory Rate 18 Respiratory Effort / Characteristics Non-Labored Respiratory Depth Normal Respiratory Pattern Blood Pressure Blood Pressure [Right Arm] 175/95 H Blood Pressure Mean Blood Pressure Mean [Right Arm] 121 Blood Pressure Position Blood Pressure Position [Right Arm] Pulse Oximetry 97 97 96 Oxygen Delivery Method Room Air Sepsis Recent Fever Within 48 Hours Sepsis New/Unexplained Change in Mental Status Sepsis Action Taken by Nursing 10/31/20 21:45 10/31/20 22:00 Temperature Temperature Source Pulse Rate Pulse Rate [Right Radial] 61 65 Pulse Rate from SpO2 Sensor Pulse Rhythm [Right Radial] Regular Pulse Strength [Right Radial] Normal Respiratory Rate 16 18 Respiratory Effort / Characteristics Non-Labored Non-Labored Spontaneous Respiratory Depth Normal Normal Respiratory Pattern Regular Blood Pressure Blood Pressure [Right Arm] 170/95 H 175/89 H Blood Pressure Mean Blood Pressure Mean [Right Arm] 120 117 Blood Pressure Position Blood Pressure Position [Right Arm] Lying Lying Pulse Oximetry 95 95 Oxygen Delivery Method Room Air Sepsis Recent Fever Within 48 Hours Sepsis New/Unexplained Change in Mental Status Sepsis Action Taken by Nursing GENERAL: alert, well appearing, well nourished, no distress, non-toxic EYE EXAM: normal conjunctiva, PERRL and EOM's grossly intact, no nystagmus, no gaze deviation OROPHARYNX: no exudate, no erythema, lips, buccal mucosa, and tongue normal and mucous membranes are moist, tongue midline on protrusion NECK: supple, no nuchal rigidity, no adenopathy, non-tender LUNGS: Clear to auscultation. Normal chest wall mechanics, no w/r/r HEART: no murmurs, S1 normal and S2 normal ABDOMEN: abdomen soft, non-tender, normo-active bowel sounds, no masses, no rebound or guarding. BACK: Back is symmetrical on inspection and there is no deformity, no midline tenderness, no CVA tenderness. SKIN: no rashes and no bruising UPPER EXTREMITIES: upper extremities are grossly normal. FROM, nml pulses b/l. LOWER EXTREMITIES: No pitting edema. FROM, nml pulses b/l. NEURO EXAM: Normal sensorium, cranial nerves II-XII grossly intact, normal speech, no facial droop, LUE weakness - slight drift to bed and mild ataxia, LLE with drift to bed also. Gross sensation intact. NIHSS - 5 Course Course 2049: Case discussed with Mary Madrigal neurologist through telestroke services. 2054: Patient updated on plan thus far. Does give me verbal permission to contact his who is not coming in. 2057: Called pt's , Carline. She confirms pt's reported time of onset. States she woke up around 6pm, checked his blood pressure and sugar. She confirms with daughter Julienne. 2124: ASIA performed at bedside with assistance of nursing staff to check for occult blood as her she neurologist would like to give TPA. He is currently discussing with patient's family. Patient at bedside is in agreement with this plan and understands the risks. Administered Medications Potassium Chloride/Sodium Chloride (Normal Saline W/20 Meq Kcl) 20 meq in 1,000 mls @ 100 mls/hr IV .Q10H NIKOLAI Stop: 11/30/20 23:42 Last Admin: 11/01/20 01:49 Dose: 100 mls/hr Documented by: [id number] Famotidine 20 mg/ Syringe 5 mls @ 2.5 mls/min IV Q12H NIKOLAI Stop: 12/01/20 00:00 Last Admin: 11/01/20 01:48 Dose: 2.5 mls/min Documented by: [id number] Discontinued Medications Acetaminophen (Acetaminophen 325 Mg Tab) 650 mg PO NOW STA Stop: 10/31/20 22:15 Last Admin: 10/31/20 22:22 Dose: 650 mg Documented by: [id number] Alteplase, Recombinant (Tpa For Stroke) 1 ea IV NOW STA; Protocol Stop: 10/31/20 21:19 Last Admin: 10/31/20 21:37 Dose: 1 ea Documented by: [id number] Hydralazine HCl (Hydralazine Hcl 20 Mg/Ml Vial) 10 mg IV NOW STA Stop: 10/31/20 23:09 Last Admin: 10/31/20 23:12 Dose: 10 mg Documented by: [id number] Hydralazine HCl (Hydralazine Hcl 20 Mg/Ml Vial) Confirm Administered Dose 20 mg .ROUTE .STK-MED ONE Stop: 10/31/20 23:11 Last Admin: 10/31/20 23:12 Dose: Not Given Documented by: [id number] Sodium Chloride (Nss 1000ml) 1,000 mls @ 50 mls/hr IV .Q20H NIKOLAI Stop: 11/30/20 20:29 Last Infusion: 11/01/20 00:48 Dose: 0 mls/hr Documented by: [id number] Admin: 10/31/20 21:30 Dose: 50 mls/hr Documented by: [id number] Alteplase, Recombinant 9 mg/ (Syringe) 9 mls @ 9 mls/min IV ONCE ONE Stop: 10/31/20 21:30 Last Admin: 10/31/20 21:30 Dose: 9 mls/min Documented by: [id number] Cosigned by: [id number] Alteplase, Recombinant 81 mg/ (EMPTY BAG) 81 mls @ 81 mls/hr IV ONCE ONE Stop: 10/31/20 21:31 Last Infusion: 10/31/20 22:35 Dose: 0 mls/hr Documented by: [id number] Cosigned by: [id number] Admin: 10/31/20 21:31 Dose: 81 mls/hr Documented by: [id number] Cosigned by: [id number] Ioversol (Optiray 350 500ml) 120 ml IV ONCE ONE Stop: 10/31/20 20:32 Last Admin: 10/31/20 20:32 Dose: 120 ml Documented by: [id number] Critical Care Time Critical Care Time: Yes Total Critical Care Time: 46 Critical care of [time] min performed to assess and manage high likelihood of life-threatening CVA, involving labs and imaging performed with assessment to evaluate CVA diagnosis with frequent reassessment. This time includes bedside time, treatment discussions with patient/family/consultants, documentation time and excludes procedure time. Medical Decision Making Differential Diagnosis Differential Diagnosis includes but is not limited to ischemic Stroke, hemorrhagic stroke, bells palsy, mass, neoplasm, migraine headache, seizure, subarachnoid hemorrhage, TIA, and transient global amnesia. Medical Records Attestation: I reviewed the patient's medical records. Home Medications Current Medication List: was personally reviewed by me Laboratory Data Attestation: I reviewed the patient's lab results. Result diagrams: 10/31/20 20:30 10/31/20 20:30 Lab Results 10/31/20 10/31/20 10/31/20 Range/Units 20:30 20:30 20:30 WBC 5.42 (4.8-10.8) K/uL RBC 4.57 L (4.7-6.1) M/uL Hgb 13.7 L (14.0-18.0) g/dL POC Hgb (14.0-18.0) g/dl Hct 41.4 L (42-52) % POC Hct (42-52) % MCV 90.6 (80-100) fL MCH 30.0 (25-34) pg MCHC 33.1 (32-36) g/dL RDW Std Deviation 48.3 H (36.4-46.3) fL RDW Coeff of Gissel 14.5 (11.5-14.5) % Plt Count 176 (130-400) K/uL MPV 11.1 H (7.4-10.4) fL Immature Gran % (Auto) 0.2 % Neut % (Auto) 67.1 % Lymph % (Auto) 20.3 % [place] % (Auto) 10.0 % Eos % (Auto) 2.0 % Baso % (Auto) 0.4 % Neut # (Auto) 3.64 (1.4-6.5) K/uL Lymph # (Auto) 1.10 L (1.2-3.4) K/uL [place] # (Auto) 0.54 (0.11-0.59) K/uL Eos # (Auto) 0.11 (0-0.5) K/uL Baso # (Auto) 0.02 (0-0.2) K/uL Immature Gran # (Auto) 0.01 (0.00-0.02) K/uL PT 10.3 (9.0-12.0) Seconds INR 1.0 (0.9-1.1) APTT 24.9 (21.0-31.0) Seconds PTT Ratio 0.9 POC Sodium (135-144) mmol/L Sodium 139 (136-145) mmol/L POC Potassium (3.3-5.0) mmol/L Potassium 4.4 (3.5-5.1) mmol/L POC Chloride (101-112) mmol/L Chloride 105 (98-107) mmol/L Carbon Dioxide 27 (21-32) mmol/L POC Total CO2 (24-31) mmol/L Anion Gap 7.0 (3-11) POC Anion Gap (16-25) mmol/L POC BUN (7-18) mg/dl BUN 18 (7-18) mg/dl Creatinine 1.10 (0.6-1.4) mg/dl POC Creatinine (0.6-1.3) mg/dl Est Cr Clr Drug Dosing 69.2 ml/min Est GFR ( Amer) 76.2 ml/min Est GFR (Non-Af Amer) 65.8 ml/min BUN/Creatinine Ratio 16.5 (10-20) Glucose 101 H (70-99) mg/dl POC Glucose (other) (70-99) mg/dl Calcium 8.8 (8.5-10.1) mg/dl POC Ioniz Calcium Kellie (1.12-1.32) mmol/l Magnesium 2.2 (1.8-2.4) mg/dl Total Bilirubin 0.4 (0.2-1) mg/dl AST 19 (15-37) U/L ALT 25 (12-78) U/L Alkaline Phosphatase 93 (45-117) U/L Troponin I < 0.015 (0-0.045) ng/ml Total Protein 6.4 (6.4-8.2) gm/dl Albumin 3.2 L (3.4-5.0) gm/dl Globulin 3.2 (2.5-4.0) gm/dl Albumin/Globulin Ratio 1.0 (0.9-2) COVID-19 Eval Order SARS-CoV-2 (PCR) (Negative) Blood Type Antibody Screen 10/31/20 10/31/20 10/31/20 Range/Units 20:49 20:50 21:50 WBC (4.8-10.8) K/uL RBC (4.7-6.1) M/uL Hgb (14.0-18.0) g/dL POC Hgb 12.6 L (14.0-18.0) g/dl Hct (42-52) % POC Hct 37 L (42-52) % MCV (80-100) fL MCH (25-34) pg MCHC (32-36) g/dL RDW Std Deviation (36.4-46.3) fL RDW Coeff of Gissel (11.5-14.5) % Plt Count (130-400) K/uL MPV (7.4-10.4) fL Immature Gran % (Auto) % Neut % (Auto) % Lymph % (Auto) % [place] % (Auto) % Eos % (Auto) % Baso % (Auto) % Neut # (Auto) (1.4-6.5) K/uL Lymph # (Auto) (1.2-3.4) K/uL [place] # (Auto) (0.11-0.59) K/uL Eos # (Auto) (0-0.5) K/uL Baso # (Auto) (0-0.2) K/uL Immature Gran # (Auto) (0.00-0.02) K/uL PT (9.0-12.0) Seconds INR (0.9-1.1) APTT (21.0-31.0) Seconds PTT Ratio POC Sodium 138 (135-144) mmol/L Sodium (136-145) mmol/L POC Potassium 4.0 (3.3-5.0) mmol/L Potassium (3.5-5.1) mmol/L POC Chloride 102 (101-112) mmol/L Chloride (98-107) mmol/L Carbon Dioxide (21-32) mmol/L POC Total CO2 27 (24-31) mmol/L Anion Gap (3-11) POC Anion Gap 14.0 L (16-25) mmol/L POC BUN 18 (7-18) mg/dl BUN (7-18) mg/dl Creatinine (0.6-1.4) mg/dl POC Creatinine 1.1 (0.6-1.3) mg/dl Est Cr Clr Drug Dosing ml/min Est GFR ( Amer) ml/min Est GFR (Non-Af Amer) ml/min BUN/Creatinine Ratio (10-20) Glucose (70-99) mg/dl POC Glucose (other) 102 H (70-99) mg/dl Calcium (8.5-10.1) mg/dl POC Ioniz Calcium Kellie 1.16 (1.12-1.32) mmol/l Magnesium (1.8-2.4) mg/dl Total Bilirubin (0.2-1) mg/dl AST (15-37) U/L ALT (12-78) U/L Alkaline Phosphatase (45-117) U/L Troponin I (0-0.045) ng/ml Total Protein (6.4-8.2) gm/dl Albumin (3.4-5.0) gm/dl Globulin (2.5-4.0) gm/dl Albumin/Globulin Ratio (0.9-2) COVID-19 Eval Order Covid19 at [facility] SARS-CoV-2 (PCR) (Negative) Blood Type B Positive Antibody Screen NEGATIVE 10/31/20 Range/Units 21:50 WBC (4.8-10.8) K/uL RBC (4.7-6.1) M/uL Hgb (14.0-18.0) g/dL POC Hgb (14.0-18.0) g/dl Hct (42-52) % POC Hct (42-52) % MCV (80-100) fL MCH (25-34) pg MCHC (32-36) g/dL RDW Std Deviation (36.4-46.3) fL RDW Coeff of Gissel (11.5-14.5) % Plt Count (130-400) K/uL MPV (7.4-10.4) fL Immature Gran % (Auto) % Neut % (Auto) % Lymph % (Auto) % [place] % (Auto) % Eos % (Auto) % Baso % (Auto) % Neut # (Auto) (1.4-6.5) K/uL Lymph # (Auto) (1.2-3.4) K/uL [place] # (Auto) (0.11-0.59) K/uL Eos # (Auto) (0-0.5) K/uL Baso # (Auto) (0-0.2) K/uL Immature Gran # (Auto) (0.00-0.02) K/uL PT (9.0-12.0) Seconds INR (0.9-1.1) APTT (21.0-31.0) Seconds PTT Ratio POC Sodium (135-144) mmol/L Sodium (136-145) mmol/L POC Potassium (3.3-5.0) mmol/L Potassium (3.5-5.1) mmol/L POC Chloride (101-112) mmol/L Chloride (98-107) mmol/L Carbon Dioxide (21-32) mmol/L POC Total CO2 (24-31) mmol/L Anion Gap (3-11) POC Anion Gap (16-25) mmol/L POC BUN (7-18) mg/dl BUN (7-18) mg/dl Creatinine (0.6-1.4) mg/dl POC Creatinine (0.6-1.3) mg/dl Est Cr Clr Drug Dosing ml/min Est GFR ( Amer) ml/min Est GFR (Non-Af Amer) ml/min BUN/Creatinine Ratio (10-20) Glucose (70-99) mg/dl POC Glucose (other) (70-99) mg/dl Calcium (8.5-10.1) mg/dl POC Ioniz Calcium Kellie (1.12-1.32) mmol/l Magnesium (1.8-2.4) mg/dl Total Bilirubin (0.2-1) mg/dl AST (15-37) U/L ALT (12-78) U/L Alkaline Phosphatase (45-117) U/L Troponin I (0-0.045) ng/ml Total Protein (6.4-8.2) gm/dl Albumin (3.4-5.0) gm/dl Globulin (2.5-4.0) gm/dl Albumin/Globulin Ratio (0.9-2) COVID-19 Eval Order SARS-CoV-2 (PCR) NEGATIVE (Negative) Blood Type Antibody Screen Imaging Data Radiologist's Impression: CT head: No ICH, mass-effect or edema. No evidence of acute cortical stroke. Visualized sinuses and mastoid doses are clear. Radiologist: Marquis Aldana MD CTA head: No arterial occlusion, high-grade stenosis, aneurysm, or dissection. Radiologist: Marquis Aldana MD CTA neck: No arterial occlusion, high-grade stenosis, aneurysm, or dissection. Radiologist: Marquis Aldana MD ECG Data Attestation: I personally reviewed and interpreted this ECG as follows: Indication: + weakness Rate (beats per minute): 70 Rhythm: + normal sinus ECG Intervals/blocks: + Right Bundle branch block ECG [place]: + Left axis deviation ECG ST segments: + Nonspecific ST abnormalities ECG Findings: + PVCs MDM Narrative This is a 75-year-old male brought in by EMS after being made a stroke alert pr ehospital and taken immediately to CAT scan. My brief initial exam was performed while patient was being rolled to CT and then I immediately asked for the [place] teleneurologist to be contacted. Patient was already 3-1/2 hours into his symptoms at the time of arrival. Case discussed with neurology, scans reviewed, labs are drawn and sent. It was noted the patient listed medications concerning for cognitive impairment so I made attempts to try and contact the patient's and daughter. They were able to read me patient's current medication list in detail with dosages. There did not appear to be any obvious contraindication to TPA. Patient's vital signs were stable and no significant hypertension noted. Patient did mention on additional bedside discussion about prior history of GI bleeding and scheduled colonoscopy for removal of polyps. Risks of bleeding were discussed with the patient and his via the neurologist. Patient and family were in agreement with plan for TPA. Patient continued to be well-appearing down here. Dr. Andrade did continue to check in on the patient periodically. Case discussed with hospitalist for additional evaluation and management. An order was placed for continuous cardiac monitoring. The monitor shows a rate of _66_ with _normal sinus_ rhythm. Impression & Plan Cerebrovascular accident, Headache Discharge Plan Visit Data Chief Complaint: Stroke Alert Stated Complaint: STROKE SYMPTOMS ED Provider: Promise Guillory Discharge Problem: Cerebrovascular accident, Headache Patient Disposition: Admitted As Inpatient Discharge Instructions Interventions: ED Discharge Assessment Last Done: 10/31/20 23:37 Discharge Problem: Cerebrovascular accident Qualifiers: CVA mechanism: unspecified Qualified Code(s): I63.9 - Cerebral infarction, unspecified Headache Qualifiers: Headache type: unspecified Headache chronicity pattern: acute headache Intractability: not intractable Qualified Code(s): R51.9 - Headache, unspecified
[2020-10-31 20:59] LABS: Partial Thromboplastin Ratio 0.9; Partial Thromboplastin Time 24.9 Seconds (21.0-31.0); Prothrombin Time 10.3 Seconds (9.0-12.0)
[2020-10-31 21:00] LABS: Alanine Aminotransferase 25 U/L (12-78); Albumin Level 3.2 gm/dl (3.4-5.0); Aspartate Aminotransferase 19 U/L (15-37); BUN Creatinine Ratio 16.5 (10-20); Blood Urea Nitrogen 18 mg/dl (7-18); Calcium 8.8 mg/dl (8.5-10.1); Carbon Dioxide 27 mmol/L (21-32); Chloride 105 mmol/L (98-107); Creatinine Clr Calc Pharmacy 69.2 ml/min; Est GFR (African American) 76.2 ml/min; Est GFR (Non-African American) 65.8 ml/min; Glucose 101 mg/dl (70-99); Magnesium 2.2 mg/dl (1.8-2.4); Potassium 4.4 mmol/L (3.5-5.1); Sodium 139 mmol/L (136-145)
[2020-10-31 21:02] LABS: iSTAT Creatinine 1.1 mg/dl (0.6-1.3); iSTAT Hemoglobin 12.6 g/dl (14.0-18.0); iSTAT Ionized Calcium 1.16 mmol/l (1.12-1.32)
[2020-10-31 21:05] LABS: Alkaline Phosphatase 93 U/L (45-117); Bilirubin,Total 0.4 mg/dl (0.2-1); Globulin 3.2 gm/dl (2.5-4.0); Total Protein 6.4 gm/dl (6.4-8.2); Troponin I < 0.015 ng/ml (0-0.045)
[2020-10-31] MEDS ORDERED: TPA for Stroke IV STA (21:18)
[2020-10-31] MEDS ORDERED: Alteplase Bolus 9 MG in SYRINGE 0 ML IV ONE (21:29)
[2020-10-31] MEDS ORDERED: No Aspirin within 24hrs of THROMBOLYTIC-Stroke PO SCH (21:30)
[2020-10-31] MEDS ORDERED: ALTEPLASE, RECOMBINANT 81 MG in EMPTY BAG 0 ML IV ONE (21:30)
[2020-10-31] MEDS ORDERED: PRIMARY PLUMSET, PE LINED TUBING, 113 IN, NON-DEHP (2260-0500) IV ONE (21:30)
--- NOTE | 2020-10-31 22:08 | History & Physical Report ---
Date of Service October 31, 2020 Assessment & Plan (1) Received intravenous tissue plasminogen activator (tPA) in emergency depa rtment: CVA with left-sided weakness/received TPA in the emergency department- Admission to intensive care unit and consult line installer trolley Stroke with TPA order set for first 24 hours after TPA. Assessed as a stroke alert by [facility] stroke neurology while in the ED Consult PT/OT/speech/bilingual social worker/neurology Patient began to show improvement in left-sided weakness was still receiving TPA in the ED. Normal control targets hypertension Given hydralazine 10 mg IV x1 in the ED and assess need for further antihypertensives based on response Present on Admission?: Yes (2) Cerebrovascular accident: See above Present on Admission?: Yes (3) Cervicogenic headache: Given Tylenol Present on Admission?: Yes (4) CAD in nulato artery: CAD/PAD- On Plavix and pentoxifylline Present on Admission?: Yes (5) Stage III chronic kidney disease: Creatinine stable at 1.10. Follow serially Present on Admission?: Yes (6) Diabetes mellitus, type 2: Reduce insulin glargine 45 to 20 units subcu at bedtime due to borderline low blood sugar. Placed on Accu-Cheks before meals and at bedtime with NovoLog coverage per scale Check hemoglobin A1c Present on Admission?: Yes (7) Hyperlipidemia: Increasing atorvastatin from 40 to 80 mg daily Check a fasting lipid panel Present on Admission?: Yes (8) Esophageal reflux: Continue pantoprazole Present on Admission?: Yes (9) Cognitive disorder: Cognitive disorder/agitation/anxiety Continue donepezil, memantine, venlafaxine and pimavanserin Present on Admission?: Yes (10) Migraines: Tylenol as needed Present on Admission?: Yes (11) Admitted to intensive care unit: Consult line installer trolley Present on Admission?: Yes History of Present Illness Chief Complaint: The patient presents to the emergency department as a stroke alert, with complaint of sudden onset of left arm and left leg weakness around 5 PM when he was in the bathroom Primary Care Provider: Fox Moran MD The patient is a 75-year-old male with a past medical history including superficial hematoma, cervicogenic headache, status post CABG, cellulitis, bilateral lower extremity venous ulcers, recurrent falls, parkinsonism, arsenic poisoning, intermittent explosive disorder, delusional disorder somatic type, diabetes mellitus type 2, chronic HFpEF, vitamin B12 deficiency, CKD stage III, CAD, thiamine deficiency, seizure-like activity, hyperlipidemia, GERD, cognitive disorder, conversion disorder, peripheral neuropathy, migraines and hypertension. Patient presents with symptoms as noted above. CT of head was negative, CTA head and neck were both negative. Patient was assessed by [facility] stroke neurology and felt that TPA was indicated, which was begun and completed in the emergency department. Patient was noticing improvement in both left arm and leg functioning while yet in the ED and receiving TPA. Patient was admitted to the ICU. Allergies Allergy/AdvReac Type Severity Reaction Status Date / Time morphine AdvReac Severe "STOPS MY Verified 10/31/20 21:27 HEART" hydromorphone [From Dilaudid] AdvReac Intermediate unresponsiv Verified 10/31/20 21:27 eness trazodone AdvReac Intermediate GI UPSET Verified 10/31/20 21:27 diazepam AdvReac Mild HALLUCINATE Verified 10/31/20 21:27 S propoxyphene AdvReac Mild DRUG Verified 10/31/20 21:27 INTOLERANCE Home Medications Medication Instructions Recorded Confirmed Type acetaminophen [Tylenol Extra 1,000 mg PO Q8H PRN 06/05/19 10/31/20 History Strength] polyethylene glycol 3350 17 17 gm PO QAM 07/16/19 10/31/20 History gram/dose oral powder atorvastatin 40 mg tablet 40 mg PO QAM #90 tab 12/02/19 10/31/20 Rx calcium carbonate-vitamin D3 1 cap PO QAM 03/14/20 10/31/20 History clopidogrel 75 mg PO QAM 05/09/20 10/31/20 History cyanocobalamin (vitamin B-12) 1,000 mcg PO QAM 05/09/20 10/31/20 History [Vitamin B-12] donepezil 10 mg PO QAM 05/09/20 10/31/20 History metoprolol succinate 25 mg PO QAM 05/09/20 10/31/20 History pentoxifylline 400 mg PO BID 05/09/20 10/31/20 History insulin glargine 100 unit/mL (3 45 unit SUBCUT HS #45 ml 06/30/20 10/31/20 Rx mL) subcutaneous pen insulin lispro 100 unit/mL 20 - 40 unit SQ .COMPLEX #15 ml 09/15/20 10/31/20 Rx subcutaneous pen pantoprazole 40 mg tablet,delayed 40 mg PO QAM #90 tab 09/20/20 10/31/20 Rx release memantine 5 mg tablet 5 mg PO BID 60 Days #120 tab 09/22/20 10/31/20 Rx pimavanserin 34 mg capsule 34 mg PO PM 30 Days #30 cap 09/22/20 10/31/20 Rx furosemide 40 mg tablet 40 mg PO WK PRN #30 tab 10/07/20 10/31/20 Rx venlafaxine 75 mg capsule,extended 150 mg PO DAILY 90 Days #180 cap 10/28/20 10/31/20 Rx release 24 hr Past Med/Surg History Medical History Acute diastolic (congestive) heart failure (06/2019) Arsenic poisoning Asymptomatic cholelithiasis Atypical chest pain Benign colonic polyp CAD in nulato artery Cellulitis Cognitive disorder Controlled type 2 diabetes mellitus with neurologic complication, 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 Mejia Nephrolithiasis Neurological deficit present Neuropathy Noninfected skin tear of left lower extremity Osteoarthritis Osteopenia determined by x-ray Raynauds phenomenon Stage III chronic kidney disease Thyroid disorder screening Tubular adenoma of colon Venous (peripheral) insufficiency Vitamin D deficiency Wound of left foot Surgical History History of ankle surgery History of arthroscopy of left knee History of cardiac cath x3-4, last 2014 History of carpal tunnel release of both wrists History of colonoscopy History of heart artery stent (1998) History of lithotripsy x2 History of lumbar discectomy x2 History of open reduction and internal fixation (ORIF) procedure left ankle--hardware in place History of right cataract extraction History of tonsillectomy and adenoidectomy S/P CABG (coronary artery bypass graft) S/P sinus surgery Status post uvulopalatopharyngoplasty Family History Father Diabetes Prostate cancer Colorectal cancer Brother Prostate cancer Uncle Colorectal cancer Father Myocardial infarction Mother Myocardial infarction Other Dementia No family history of adverse response to anesthesia Denies family history of Ovarian cancer Breast cancer Social History Smoking Status: Former smoker Tobacco Type: Cigarettes Age Quit Using Tobacco: 71; packs per day: 3; Cigarettes Per Day: Camels since 7 years old.; Second Hand Exposure: No; Hx Alcohol Use: No Hx Substance Use: No Preferred Language: Greek Communication Ability: Effective Visual Impairment: No Limitations Hearing Ability: Normal Microbiological Laboratory Technician Required: No Beliefs That Will Affect Care: None marital status: marital status details: 3 children Current Living Situation: Spouse current occupational status: retired How many Children do You have: 2 Other Information That Helps Us Care for You: No other: 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); 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 exposure Feels Safe at Home: Yes Safety Concerns: Feels Safe At This Time Seatbelt Use: always Assistive Devices: None Review of Systems Review of Systems: The patient denies chest pain, palpitations, shortness of breath, dyspnea on exertion, cough, lower extremity swelling, sore throat, fevers, chills, sweats, nausea, vomiting, diarrhea , constipation, abdominal pain, pelvic pain, blood in urine or stool, dysuria, urinary frequency or urgency, lightheadedness, dizziness, loss of consciousness, rash, abnormal bruising or bleeding, eneralized arthralgias or myalgias, back or neck pain, or night sweats. The review of systems is otherwise negative other than for that already noted above, and at least 10 systems have been reviewed. Physical Exam Physical Exam: The patient is awake, alert and oriented 3, well developed and well nourished, normocephalic and atraumatic, lying in bed and in no acute distress. HEENT--PERRL, EOMI, mucous membranes and oropharynx dry. Neck--supple. No JVD. No bruits. Thyroid normal, trachea midline, no adenopathy. Heart--normal S1 and S2. No murmurs, rubs or gallops. Lungs--clear bilaterally, no respiratory distress, no accessory muscle use. Abdomen--normal bowel sounds and soft. Nontender. Nondistended, no hernias or masses, no organomegaly. Extremities--no cyanosis or clubbing. No edema. There are good distal pulses b/l. Dermatologic--normal skin turgor, normal color, no abnormal lymph nodes, no rash. Neurologic--cranial nerves II through XII grossly intact. Patient did reportedly show improvement and left-sided strength and cerebellar function. He continued to have normal sensory function Rheumatologic--limited on the left due to stroke Psychiatric--normal affect. Results & Data Results & Data ([facility]) Vital Signs (Past 12 Hours) Vital Signs Temp Pulse Pulse Resp BP BP Pulse Ox 10/31/20 22:00 65 18 175/89 H 95 10/31/20 21:45 61 16 170/95 H 95 10/31/20 21:30 98.6 F 64 18 175/95 H 96 10/31/20 20:50 63 97 10/31/20 20:44 69 97 10/31/20 20:41 71 141/82 H 97 10/31/20 20:40 98.6 F 72 18 141/82 H 96 10/31/20 20:37 96 Laboratory Results Laboratory Results WBC 5.42 K/uL (4.8-10.8) 10/31/20 20:30 RBC 4.57 M/uL (4.7-6.1) L 10/31/20 20:30 Hgb 13.7 g/dL (14.0-18.0) L 10/31/20 20:30 POC Hgb 12.6 g/dl (14.0-18.0) L 10/31/20 20:50 Hct 41.4 % (42-52) L 10/31/20 20:30 POC Hct 37 % (42-52) L 10/31/20 20:50 MCV 90.6 fL (80-100) 10/31/20 20:30 MCH 30.0 pg (25-34) 10/31/20 20:30 MCHC 33.1 g/dL (32-36) 10/31/20 20:30 RDW Std Deviation 48.3 fL (36.4-46.3) H 10/31/20 20:30 RDW Coeff of Gissel 14.5 % (11.5-14.5) 10/31/20 20:30 Plt Count 176 K/uL (130-400) 10/31/20 20:30 MPV 11.1 fL (7.4-10.4) H 10/31/20 20:30 Immature Gran % (Auto) 0.2 % 10/31/20 20:30 Neut % (Auto) 67.1 % 10/31/20 20:30 Lymph % (Auto) 20.3 % 10/31/20 20:30 Cabell % (Auto) 10.0 % 10/31/20 20:30 Eos % (Auto) 2.0 % 10/31/20 20:30 Baso % (Auto) 0.4 % 10/31/20:30 Neut # (Auto) 3.64 K/uL (1.4-6.5) 10/31/20 20:30 Lymph # (Auto) 1.10 K/uL (1.2-3.4) L 10/31/20 20:30 Cabell # (Auto) 0.54 K/uL (0.11-0.59) 10/31/20 20:30 Eos # (Auto) 0.11 K/uL (0-0.5) 10/31/20 20:30 Baso # (Auto) 0.02 K/uL (0-0.2) 10/31/20 20:30 Immature Gran # (Auto) 0.01 K/uL (0.00-0.02) 10/31/20 20:30 PT 10.3 Seconds (9.0-12.0) 10/31/20 20:30 INR 1.0 (0.9-1.1) 10/31/20 20:30 APTT 24.9 Seconds (21.0-31.0) 10/31/20 20:30 PTT Ratio 0.9 10/31/20 20:30 POC Sodium 138 mmol/L (135-144) 10/31/20 20:50 Sodium 139 mmol/L (136-145) 10/31/20 20:30 POC Potassium 4.0 mmol/L (3.3-5.0) 10/31/20 20:50 Potassium 4.4 mmol/L (3.5-5.1) 10/31/20 20:30 POC Chloride 102 mmol/L (101-112) 10/31/20 20:50 Chloride 105 mmol/L (98-107) 10/31/20 20:30 Carbon Dioxide 27 mmol/L (21-32) 10/31/20 20:30 POC Total CO2 27 mmol/L (24-31) 10/31/20 20:50 Anion Gap 7.0 (3-11) 10/31/20 20:30 POC Anion Gap 14.0 mmol/L (16-25) L 10/31/20 20:50 POC BUN 18 mg/dl (7-18) 10/31/20 20:50 BUN 18 mg/dl (7-18) 10/31/20 20:30 Creatinine 1.10 mg/dl (0.6-1.4) 10/31/20 20:30 POC Creatinine 1.1 mg/dl (0.6-1.3) 10/31/20 20:50 Est Cr Clr Drug Dosing 69.2 ml/min 10/31/20 20:30 Est GFR ( Amer) 76.2 ml/min 10/31/20 20:30 Est GFR (Non-Af Amer) 65.8 ml/min 10/31/20 20:30 BUN/Creatinine Ratio 16.5 (10-20) 10/31/20 20:30 Glucose 101 mg/dl (70-99) H 10/31/20 20:30 POC Glucose 98 mg/dl (70-99) 10/31/20 23:56 POC Glucose (other) 102 mg/dl (70-99) H 10/31/20 20:50 Calcium 8.8 mg/dl (8.5-10.1) 10/31/20 20:30 POC Ioniz Calcium Kellie 1.16 mmol/l (1.12-1.32) 10/31/20 20:50 Magnesium 2.2 mg/dl (1.8-2.4) 10/31/20 20:30 Total Bilirubin 0.4 mg/dl (0.2-1) 10/31/20 20:30 AST 19 U/L (15-37) 10/31/20 20:30 ALT 25 U/L (12-78) 10/31/20 20:30 Alkaline Phosphatase 93 U/L (45-117) 10/31/20 20:30 Troponin I < 0.015 ng/ml (0-0.045) 10/31/20 20:30 Total Protein 6.4 gm/dl (6.4-8.2) 10/31/20 20:30 Albumin 3.2 gm/dl (3.4-5.0) L 10/31/20 20:30 Globulin 3.2 gm/dl (2.5-4.0) 10/31/20 20:30 Albumin/Globulin Ratio 1.0 (0.9-2) 10/31/20 20:30 Nasal Screen MRSA (PCR) Negative (Negative) 10/31/20 23:45 COVID-19 Eval Order Covid19 at [facility] 10/31/20 21:50 SARS-CoV-2 (PCR) NEGATIVE (Negative) 10/31/20 21:50 Blood Type B Positive 10/31/20 20:49 Antibody Screen NEGATIVE 10/31/20 20:49 Diagnostic Findings [facility] Patient: EMANUEL GRANT (Male) : 47 Status: ER Date: 10/31/20 20:35 Room #: History: left sided weakness stroke alert Slices: [phone] Priors: Tech: AngelicaHowardt @ [phone] Exams: CT HEAD Contrast: Accession Numbers: [id number] Preliminary Findings Only See Final Report For Complete Findings CT HEAD: No ICH, mass effect or edema. No evidence of acute cortical stroke. Visualized sinuses and mastoid air cells are clear. Radiologist: Marquis Aldana MD Study ready at 20:54 and initial results transmitted at 20:59 Communications: Clear Time Type Notes 10/31/20 21:11 Call Doctor Regarding Stroke, called Dr. Guillory on 10/31 21:11 (-04:00) *This report constitutes a preliminary interpretation only. Non-acute findings felt to be unrelated to the clinical presentation may not be discussed in this report. The study will be interpreted and a final report will be generated by the local Radiologist the following shift. To reach the hospital radiology department call [phone]. If a discrepancy is found between the preliminary and final interpretations of this study, please notify us via our Client Portal at [email or web address].You can also fax this report with a description of the discrepancy, or include the final report, to our daytime fax number [phone].If faxing, please indicate the severity of discrepancy using one of the following categories: [ ] 1 - Agree/Informational [ ] 2 - Unlikely to Affect Management [ ] 3 - Possible Eventual Change of Management [ ] 4 - Probable Immediate Change of Management For all other patient related information, please fax us at [phone]. [id number] [facility] Patient: EMANUEL GRANT (Male) : 47 Status: ER Date: 10/31/20 20:38 Room #: History: LEFT SIDED WEAKNESS Slices: [phone] Priors: Tech: Gabriel Dominguez @ [phone] Exams: CTA HEAD Contrast: IV Amt: 120 Accession Numbers: [id number] Preliminary Findings Only See Final Report For Complete Findings CTA HEAD: No arterial occlusion, high-grade stenosis, aneurysm, or dissection. Radiologist: Marquis Aldana MD Study ready at 20:44 and initial results transmitted at 21:01 Communications: Clear Time Type Notes 10/31/20 21:11 Call Doctor Regarding Stroke, called Dr. Guillory on 10/31 21:11 (-04:00) *This report constitutes a preliminary interpretation only. Non-acute findings felt to be unrelated to the clinical presentation may not be discussed in this report. The study will be interpreted and a final report will be generated by the local Radiologist the following shift. To reach the hospital radiology department call [phone]. If a discrepancy is found between the preliminary and final interpretations of this study, please notify us via our Client Portal at [email or web address] [email or web address].You can also fax this report with a description of the discrepancy, or include the final report, to our daytime fax number [phone].If faxing, please indicate the severity of discrepancy using one of the following categories: [ ] 1 - Agree/Informational [ ] 2 - Unlikely to Affect Management [ ] 3 - Possible Eventual Change of Management [ ] 4 - Probable Immediate Change of Management For all other patient related information, please fax us at [phone]. [id number] [facility] Patient: EMANUEL GRANT (Male) : 47 Status: ER Date: 10/31/20 20:41 Room #: History: LEFT SIDED WEAKNESS Slices: [phone] Priors: Tech: Gabriel Dominguez @ [phone] Exams: CTA NECK Contrast: IV Amt: 120 Accession Numbers: [id number] Preliminary Findings Only See Final Report For Complete Findings CTA NECK: No arterial occlusion, high-grade stenosis, aneurysm, or dissection. Radiologist: Marquis Aldana MD Study ready at 20:47 and initial results transmitted at 21:04 Communications: Clear Time Type Notes 10/31/20 21:11 Call Doctor Regarding Stroke, called Dr. Guillory on 10/31 21:11 (-04:00) *This report constitutes a preliminary interpretation only. Non-acute findings felt to be unrelated to the clinical presentation may not be discussed in this report. The study will be interpreted and a final report will be generated by the local Radiologist the following shift. To reach the hospital radiology department call [phone]. If a discrepancy is found between the preliminary and final interpretations of this study, please notify us via our Client Portal at [email or web address].You can also fax this report with a description of the discrepancy, or include the final report, to our daytime fax number [phone].If faxing, please indicate the severity of discrepancy using one of the following categories: [ ] 1 - Agree/Informational [ ] 2 - Unlikely to Affect Management [ ] 3 - Possible Eventual Change of Management [ ] 4 - Probable Immediate Change of Management For all other patient related information, please fax us at [phone]. [id number] Code Status & VTE Plan Code Status Full code VTE Prophylaxis Plan VTE Prophylaxis will be ordered: Yes Critical Care Time Critical Care Time: Yes Total Critical Care Time: 40 PG Care Time/CCT Total # of Minutes Spent Total Time Spent with Patient: Total time spent is greater than 50% in coordination of care (as documented) at patient's floor/unit and/or counseling patient: Critical Care Time: Yes Total Critical Care Time: 40 Coding Level of Care Code 68999 Initial Inpt Care Lvl 3 Diagnoses Received intravenous tissue plasminogen activator (tPA) in emergency department Z92.82 Cerebrovascular accident I63.9 CVA mechanism: unspecified Cervicogenic headache R51.9 CAD in [place] artery I25.10 Stage III chronic kidney disease N18.3 Diabetes mellitus, type 2 E11.42; Z79.4 Diabetes mellitus usp insulin use: with terminal system operator use Diabetes mellitus complication status: with neurologic complications Diabetes mellitus complication detail: with polyneuropathy Hyperlipidemia E78.5 Hyperlipidemia type: unspecified Esophageal reflux K21.9 Esophagitis presence: esophagitis presence not specified Cognitive disorder F09 Migraines G43.909 Admitted to intensive care unit Z78.9 Additional Codes Critical Care Time - Critical Care Time: Yes ([id number]) Time Spent (min) 40 (1) Cerebrovascular accident CVA mechanism: unspecified Qualified Code(s): I63.9 - Cerebral infarction, unspecified (2) Diabetes mellitus, type 2 Diabetes mellitus usp insulin use: with usp use Diabetes mellitus complication status: with neurologic complications Diabetes mellitus complication detail: with polyneuropathy Qualified Code(s): E11.42 - Type 2 diabetes mellitus with diabetic polyneuropathy; Z79.4 - ferry terminal agent (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 (3) Hyperlipidemia Hyperlipidemia type: unspecified Qualified Code(s): E78.5 - Hyperlipidemia, unspecified (4) Esophageal reflux Esophagitis presence: esophagitis presence not specified Qualified Code(s): K21.9 - Gastro-esophageal reflux disease without esophagitis
[2020-10-31] MEDS ORDERED: ACETAMINOPHEN 325 MG TAB PO STA (22:14)
[2020-10-31] MEDS ORDERED: hydrALAZINE HCL 20 MG/ML VIAL IV STA (23:08)
[2020-10-31] MEDS ORDERED: hydrALAZINE HCL 20 MG/ML VIAL ONE (23:10)
[2020-10-31] MEDS ORDERED: ICU PROTOCOL FOR HYPERGLYCEMIA PRN (23:43)
[2020-10-31] MEDS ORDERED: PHARMACIST DISCHARGE MED REC CONSULT PRN (23:43)
[2020-10-31] MEDS ORDERED: ALBUT/IPRATROP 3MG/0.5MG NEB 3 ML VIAL INH PRN (23:43)
[2020-11-01] MEDS ORDERED: FAMOTIDINE 20 MG in SYRINGE 3 ML IV SCH
[2020-11-01] MEDS ORDERED: ACETAMINOPHEN 500 MG TAB PO PRN (00:12)
[2020-11-01] MEDS ORDERED: CARBOHYDRATES FOR HYPOGLYCEMIA PO PRN (00:15)
[2020-11-01] MEDS ORDERED: GLUCOSE 10 TABS/TUBE PO PRN (00:15)
[2020-11-01] MEDS ORDERED: GLUCAGON FOR INJ 1 MG VIAL IM PRN (00:15)
[2020-11-01] MEDS ORDERED: DEXTROSE 50% 50 ML SYRINGE IV PRN (00:15)
[2020-11-01] MEDS ORDERED: GLUCOSE 40% GEL 15 GM TUBE PO PRN (00:15)
--- NOTE | 2020-11-01 00:32 | Critical Care Consultation ---
Date of Consultation November 01, 2020 Assessment & Plan (1) Admitted to intensive care unit: Reason Critically Ill: 75-year-old male presenting with LEFT-sided weakness and headache with concerns for CVA he received TPA after evaluation from teleneurology in the emergency department. Patient requiring close hemodynamic monitoring status post TPA administration as well as frequent neuro checks. NEURO - * CAM ICU: NEGATIVE * LEFT-sided weakness/headache: * Patient presented to emergency department with abrupt onset of posterior headache with pain at the base of his neck with associated transient loss of vision and residual LEFT upper and lower extremity weakness. Patient received TPA in the emergency department after negative Noncon CT head as well as negative CTA head/neck. * Patient will require further neuroimaging including MRI. * In conversation with the patient, he has been evaluated for similar symptoms in the past. Specifically, he reports that he has been evaluated on 3 separate occasions for similar onset of abrupt onset of headache with associated LEFT upper and lower extremity weakness. His most recent evaluation was at a [facility], [place] within the past year. * We will continue with post TPA protocol per unit policy. * MRI has been ordered already. * I am suspicious of the etiology of the patient's presentation. Certainly, an MRI will help to further delineate the possibility of underlying cerebral insult. Otherwise, I will further defer to neurology for ongoing management. CARDIAC/VASCULAR - * Hypertension, hyperlipidemia, CHF: * Continue home Rx as tolerated. * EKG: SR w/ PVCs @ [address]/T-wave changes. QTc 468 ms. * Monitor on telemetry. RESPIRATORY - * No history of pulmonary disease. * Saturating well on room air. GI/NUTRITION - * Progress diet as tolerated if patient is to pass swallow study. RENAL/LYTES - * No significant electrolyte derangements. - * No concerns at this time. ENDO - * DMII * BSGs per unit protocol. ISS --> gtt per unit policy. HEME - * Stable H&H. * Monitor closely for s/s bleeding s/p TPA administration. ID - * No concerns for infection at this time. LINES/IV ACCESS - * PIVs x2 DVT PROPHYLAXIS - * Hold s/p recent TPA administration * SCDs I have personally spent 32 minutes of critical care time in the direct management of this patient. This is a life/limb threatening event. This includes time spent evaluating patient, direct bedside care, chart review, placing orders, interpretation of diagnostic studies, discussion with consultants, patient, and family members, as well as other required patient management activities. This time is exclusive of all separately billable procedures, and teaching time and separate from and in addition to any other critical care service time. Thank you for allowing us to participate in the care of this patient. Please refer to my attending physician's documentation for any further recommendations. (2) Received intravenous tissue plasminogen activator (tPA) in emergency department: (3) Left-sided weakness: (4) Headache: (5) Hypertension: (6) Migraines: (7) History of CVA (cerebrovascular accident): (8) Seizure-like activity: (9) CAD in [place] artery: (10) Stage III chronic kidney disease: (11) Chronic diastolic CHF (congestive heart failure): (12) Diabetes mellitus, type 2: (13) Alcohol abuse: History of Present Illness Attending Physician: Bryan Damian MD History of Present Illness Patient is a 75-year-old male with an extensive past medical history including hypertension, migraines, diabetes, neuropathy, hyperlipidemia, seizure disorder, CKD 3, coronary artery disease, CHF, venous insufficiency, parkinsonism, somatic disorder, alcohol abuse, and conversion disorder. Patient reports that at approximately 5 PM this evening while using the restroom, he developed an abrupt onset of pain to the posterior aspect of his neck. He had associated loss of vision. He states that afterwards, the patient noticed numbness and weakness to the LEFT upper lower extremity. His daughter contacted EMS and the patient was brought to the emergency department where he was made a STROKE ALERT. Patient underwent CT head/brain as well as CTA of head/neck without acute findings. Patient was felt to be candidate for TPA. He received TPA dosing in the emergency department. Patient had complained of ongoing headache since 5 PM last evening. Upon arrival in the ICU, the patient is awake, alert, and oriented. He reports an ongoing headache at the base of his neck. He reports improvement of numbness and weakness to the LEFT upper lower extremities. Patient reports that he suffers from a history of headaches and states that this is similar to prior headaches he is experienced in the past. Additionally, he states that he has been evaluated for similar LEFT upper and lower weakness with associated headaches in the past. He specifically states that this is happened to him at least 3 times in the past. He reports that during each episode he is experienced intense pain in his neck/head with associated LEFT-sided weakness. His most recent evaluation for similar symptoms was at a hospital in [place]. He states that his symptoms lasted for approximately 3 days and then completely resolved. Currently, the patient complains of mild headache at the base of his neck. He also complains of some associated blurry vision and ongoing LEFT upper and lower extremity numbness with mild weakness. He states that when he experiences the symptoms in the past he is utilize Tylenol with resolved symptoms. Patient currently denies any dizziness, lightheadedness, double vision, slurred speech, facial droop, chest pain, palpitations, shortness of breath, pleuritic pain, nausea, vomiting, or abdominal discomfort. Allergies Allergy/AdvReac Type Severity Reaction Status Date / Time morphine AdvReac Severe "STOPS MY Verified 10/31/20 21:27 HEART" hydromorphone [From Dilaudid] AdvReac Intermediate unresponsiv Verified 10/31/20 21:27 eness trazodone AdvReac Intermediate GI UPSET Verified 10/31/20 21:27 diazepam AdvReac Mild HALLUCINATE Verified 10/31/20 21:27 S propoxyphene AdvReac Mild DRUG Verified 10/31/20 21:27 INTOLERANCE Home Medications Medication Instructions Recorded Confirmed Type acetaminophen [Tylenol Extra 1,000 mg PO Q8H PRN 06/05/19 10/31/20 History Strength] polyethylene glycol 3350 17 17 gm PO QAM 07/16/19 10/31/20 History gram/dose oral powder atorvastatin 40 mg tablet 40 mg PO QAM #90 tab 12/02/19 10/31/20 Rx calcium carbonate-vitamin D3 1 cap PO QAM 03/14/20 10/31/20 History clopidogrel 75 mg PO QAM 05/09/20 10/31/20 History cyanocobalamin (vitamin B-12) 1,000 mcg PO QAM 05/09/20 10/31/20 History [Vitamin B-12] donepezil 10 mg PO QAM 05/09/20 10/31/20 History metoprolol succinate 25 mg PO QAM 05/09/20 10/31/20 History pentoxifylline 400 mg PO BID 05/09/20 10/31/20 History insulin glargine 100 unit/mL (3 45 unit SUBCUT HS #45 ml 06/30/20 10/31/20 Rx mL) subcutaneous pen insulin lispro 100 unit/mL 20 - 40 unit SQ .COMPLEX #15 ml 09/15/20 10/31/20 Rx subcutaneous pen pantoprazole 40 mg tablet,delayed 40 mg PO QAM #90 tab 09/20/20 10/31/20 Rx release memantine 5 mg tablet 5 mg PO BID 60 Days #120 tab 09/22/20 10/31/20 Rx pimavanserin 34 mg capsule 34 mg PO PM 30 Days #30 cap 09/22/20 10/31/20 Rx furosemide 40 mg tablet 40 mg PO WK PRN #30 tab 10/07/20 10/31/20 Rx venlafaxine 75 mg capsule,extended 150 mg PO DAILY 90 Days #180 cap 10/28/20 10/31/20 Rx release 24 hr Patient History Medical History Acute diastolic (congestive) heart failure (06/2019) Arsenic poisoning Asymptomatic cholelithiasis Atypical chest pain Benign colonic polyp CAD in [place] artery Cellulitis Cognitive disorder Controlled type 2 diabetes mellitus with neurologic complication, 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 Mejia Nephrolithiasis Neurological deficit present Neuropathy Noninfected skin tear of left lower extremity Osteoarthritis Osteopenia determined by x-ray Raynauds phenomenon Stage III chronic kidney disease Thyroid disorder screening Tubular adenoma of colon Venous (peripheral) insufficiency Vitamin D deficiency Wound of left foot Surgical History History of ankle surgery History of arthroscopy of left knee History of cardiac cath x3-4, last 2014 History of carpal tunnel release of both wrists History of colonoscopy History of heart artery stent (1998) History of lithotripsy x2 History of lumbar discectomy x2 History of open reduction and internal fixation (ORIF) procedure left ankle--hardware in place History of right cataract extraction History of tonsillectomy and adenoidectomy S/P CABG (coronary artery bypass graft) S/P sinus surgery Status post uvulopalatopharyngoplasty Family History Father Diabetes Prostate cancer Colorectal cancer Brother Prostate cancer Uncle Colorectal cancer Father Myocardial infarction Mother Myocardial infarction Other Dementia No family history of adverse response to anesthesia Denies family history of Ovarian cancer Breast cancer Social History Smoking Status: Former smoker Tobacco Type: Cigarettes Age Quit Using Tobacco: 71; packs per day: 3; Cigarettes Per Day: [place] since 7 years old.; Second Hand Exposure: No; Hx Alcohol Use: No Hx Substance Use: No Preferred Language: Georgian Communication Ability: Effective Visual Impairment: No Limitations Hearing Ability: Normal Electricians Top Helper Required: No Beliefs That Will Affect Care: None marital status: marital status details: 3 children Current Living Situation: Spouse current occupational status: retired How many Children do You have: 2 Other Information That Helps Us Care for You: No other: [facility]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 All else were negative. Physical Exam Physical Exam: VITAL SIGNS - Vital signs and nursing notes were reviewed. GENERAL - 75-year-old male appearing his stated age who is in no acute distress. Communicates well with provider and answers questions appropriately. HEAD - Normocephalic, Atraumatic. EYES - PERRL with EOMI bilaterally. Sclera anicteric. Palpebral conjunctiva pink and moist with no injection noted. EARS - No deformities of external structures noted on gross examination bilaterally. NOSE - Midline and without cyanosis. No epistaxis or purulent drainage noted. MOUTH/OROPHARYNX - Without perioral cyanosis. Buccal mucosa pink and moist and without leukoplakia. Tongue midline with equal elevation of palate bilaterally. NECK - Neck with FROM. Supple to palpation. No nuchal rigidity. LUNGS - Chest wall symmetric without accessory muscle use, intercostals retractions, or central cyanosis. Normal vesicular breath sounds CTA B/L. No wheezes, rales, or rhonchi appreciated. CARDIAC - RRR with S1/S2. No murmur, rubs, or gallops appreciated. ABDOMEN - Abdominal contour obese without pulsations or visible masses. BS normoactive all four quadrants. No tenderness, palpable masses, hepatosplenomegaly, or ascites noted. EXTREMITIES - Mild pretibial edema present. +3/5 radial and dorsalis pedis pulses palpated throughout. +3/5 strength noted in the LUE/LLE when compared to full strength on the right. NEUROLOGIC - Cranial nerves II through XII grossly intact. Sensory intact to light touch throughout. Patellar reflexes +2/4. LUE/LLE weakness as above. PSYCH - A&Ox3 and cooperates fully with examiner. Pt is very pleasant and interacts well with examiner. Results & Data Results & Data ([facility]) Vital Signs (Past 12 Hours) Vital Signs Temp Pulse Pulse Resp BP BP Pulse Ox 10/31/20 23:43 59 L 10/31/20 23:30 36.6 C 68 18 152/80 H 97 10/31/20 23:15 37 C 65 18 164/91 H 97 10/31/20 23:00 37 C 61 18 191/92 H 96 10/31/20 22:45 36.9 C 62 16 178/97 H 97 10/31/20 22:30 36.9 C 61 18 172/95 H 97 10/31/20 22:21 37.0 C 72 18 170/95 H 97 10/31/20 22:15 36.8 C 63 18 174/95 H 96 10/31/20 22:00 65 18 175/89 H 95 10/31/20 21:45 61 16 170/95 H 95 10/31/20 21:30 37.0 C 64 18 175/95 H 96 10/31/20 20:50 63 97 10/31/20 20:44 69 97 10/31/20 20:41 71 141/82 H 97 10/31/20 20:40 37.0 C 72 18 141/82 H 96 10/31/20 20:37 96 Coding Level of Care Code Critical Care 1st 30-74 mins Diagnoses Admitted to intensive care unit Z78.9 Received intravenous tissue plasminogen activator (tPA) in emergency department Z92.82 Left-sided weakness R53.1 Headache R51.9 Headache chronicity pattern: acute headache Headache type: unspecified Intractability: not intractable Hypertension I10 Hypertension type: essential hypertension Migraines G43.909 History of CVA (cerebrovascular accident) Z86.73 Seizure-like activity R56.9 CAD in [place] artery I25.10 Stage III chronic kidney disease N18.3 Chronic diastolic CHF (congestive heart failure) I50.32 Diabetes mellitus, type 2 E11.42; Z79.4 Diabetes mellitus correction insulin use: with exterminator use Diabetes mellitus complication status: with neurologic complications Diabetes mellitus complication detail: with polyneuropathy Alcohol abuse F10.10 Time Spent (min) 32 (1) Headache Headache chronicity pattern: acute headache Headache type: unspecified Intractability: not intractable Qualified Code(s): R51.9 - Headache, unspecified (2) Hypertension Hypertension type: essential hypertension Qualified Code(s): I10 - Essential (primary) hypertension (3) Diabetes mellitus, type 2 Diabetes mellitus exterminator insulin use: with correction use Diabetes mellitus complication status: with neurologic complications Diabetes mellitus complication detail: with polyneuropathy Qualified Code(s): E11.42 - Type 2 diabetes mellitus with diabetic polyneuropathy; Z79.4 - 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
[2020-11-01] MEDS: NSS + 20MEQ KCL 20 MEQ/1,000 ML BAG IV SCH ×3 (01:49→20:20)
--- NOTE | 2020-11-01 04:03 | Billing Data ---
Date of Service November 01, 2020 Coding Level of Care Code Critical Care 1st - mins
[2020-11-01 05:42] LABS: Basophils # (auto) 0.02 K/uL (0-0.2); Basophils % (auto) 0.4 %; Eosinophils # (auto) 0.11 K/uL (0-0.5); Eosinophils % (auto) 2.3 %; Hematocrit (blood only) 40.3 % (42-52); Hemoglobin 13.2 g/dL (14.0-18.0); Immature Granulocytes # (auto) 0.01 K/uL (0.00-0.02); Immature Granulocytes % (auto) 0.2 %; Lymphocytes # (auto) 1.07 K/uL (1.2-3.4); Lymphocytes % (auto) 22.1 %; Mean Corpuscular Hemoglobin 29.3 pg (25-34); Mean Corpuscular Hgb Conc 32.8 g/dL (32-36); Mean Corpuscular Volume 89.6 fL (80-100); Mean Platelet Volume 10.9 fL (7.4-10.4); Monocytes % (auto) 10.3 %; Neutrophils # (auto) 3.13 K/uL (1.4-6.5); Neutrophils % (auto) 64.7 %; Platelet Count 174 K/uL (130-400); RDW Coefficient of Variation 14.5 % (11.5-14.5); RDW Standard Deviation 47.6 fL (36.4-46.3); White Blood Count 4.84 K/uL (4.8-10.8)
[2020-11-01 05:52] LABS: Partial Thromboplastin Time 25.1 Seconds (21.0-31.0); Prothrombin Time 10.5 Seconds (9.0-12.0)
[2020-11-01 06:08] LABS: Creatinine Clr Calc Pharmacy 69.9 ml/min; Est GFR (African American) 78.8 ml/min; Magnesium 2.1 mg/dl (1.8-2.4); Potassium 3.9 mmol/L (3.5-5.1)
[2020-11-01 06:11] LABS: Bilirubin Direct 0.1 mg/dl (0-0.2); Bilirubin,Total 0.4 mg/dl (0.2-1); Troponin I 0.028 ng/ml (0-0.045)
--- NOTE | 2020-11-01 06:25 | CT Scan Report ---
CT head/brain wo con CLINICAL HISTORY: 75 years-old Male with Stroke Like Symptoms. Acute strokelike symptoms TECHNIQUE: Multiple axial CT images of the head were obtained without contrast. A dose lowering tech nique was utilized adhering to the principles of ALARA. CT DOSE: 1513.99 mGy.cm COMPARISON: MRI brain of same day, head CT 08/01/2020 FINDINGS: No acute intracranial hemorrhage, midline shift, intracranial mass, hydrocephalus, territorial ischem ia or abnormal extra-axial collection. Age-related involutional changes. Mild white matter hypodensit ies suggestive of chronic microvascular ischemic disease. The calvarium is intact. Mastoid air cells are clear. Partial ethmoidectomy changes. Prior bilateral lens repair. IMPRESSION: No acute intracranial abnormality. ACT 112: Negative or not required by law. The above report was generated using voice recognition software. It may contain grammatical, syntax o r spelling errors. Electronically signed by: Rodríguez Pan M.D. 11/01/2020 6:23 AM
--- NOTE | 2020-11-01 07:04 | Magnetic Resonance Report ---
MR brain wo con HISTORY: 75 years-old Male CVA, left side weakness acute headache with strokelike symptoms COMPARISON: Head CT 10/31/2020, brain MRI 06/14/2019 TECHNIQUE: Multiple multisequence MRI of the brain was obtained without the use of IV contrast. FINDINGS: Oncology Admin localizer images demonstrate no gross extracranial abnormality. There is no restricted diffusio n to suggest acute or subacute infarct. No pathologic blooming artifact. There is no acute intracrani al hemorrhage, midline shift, abnormal extra-axial collection, hydrocephalus or intracranial mass. Mi ld age-related involutional changes. Mild T2/FLAIR hyperintensities throughout the white matter sugge stive of chronic microvascular ischemic disease. Cerebral venous sinuses and major arterial flow void s are patent. Mastoid air cells are clear. Prior bilateral lens repair. The skull and soft tissues ar e within normal limits. IMPRESSION: No acute intracranial abnormality. No acute or subacute infarct. ACT 112: Negative or not required by law. The above report was generated using voice recognition software. It may contain grammatical, syntax o r spelling errors. Electronically signed by: Rodríguez Pan M.D. 11/01/2020 7:03 AM
[2020-11-01 07:09] LABS: Estimated Average Glucose 146 mg/dl; Hemoglobin A1C 6.7 % (4.5-5.6)
--- NOTE | 2020-11-01 07:09 | CT Scan Report ---
CT angio head w con CLINICAL HISTORY: 75 years-old Male with Stroke Like Symptoms. Acute strokelike symptoms COMPARISON STUDY: Brain MRI of same day, CTA neck of same day. TECHNIQUE: Following the IV administration of 120 cc of Optiray, CT angiogram of the brain was perfor med from the skull base to the vertex. Images are reviewed in the axial, sagittal, and coronal planes . 3-D MIPS images are created and assessed. IV contrast was administered without complication. All me asurements were obtained according to NASCET criteria. A dose lowering technique was utilized adherin g to the principles of ALARA. FINDINGS: There is mild calcified plaque of the cavernous, clinoid and supraclinoid segments. No aneurysm, diss ection, high-grade stenosis or arterial occlusion. The middle and anterior cerebral arteries are li nt. The distal vertebral arteries are patent. The basilar artery is widely patent. origin of th e right posterior cerebral artery. The bilateral posterior cerebral arteries are widely patent. Cereb ral venous sinuses are patent. No abnormal intracranial enhancement. Unremarkable soft tissues with p rior bilateral lens repair. No acute calvarial fracture. IMPRESSION: Unremarkable CTA of the head. ACT 112: Negative or not required by law. The above report was generated using voice recognition software. It may contain grammatical, syntax o r spelling errors. Electronically signed by: Rodríguez Pan M.D. 11/01/2020 7:08 AM
--- NOTE | 2020-11-01 07:34 | XRay Report ---
XR chest 1V portable HISTORY: 75 years-old Male Stroke Like Symptoms acute strokelike symptoms COMPARISON: Chest radiograph 09/28/2020 TECHNIQUE: Portable AP view of the chest FINDINGS: Cardiac silhouette is mildly enlarged. Prior median sternotomy with mediastinal clips. No pneumothora x, pleural effusion, airspace consolidation or overt pulmonary edema. Bones of the chest appear gross ly intact. IMPRESSION: No acute process. ACT 112: Negative or not required by law. The above report was generated using voice recognition software. It may contain grammatical, syntax o r spelling errors. Electronically signed by: Rodríguez Pan M.D. 11/01/2020 7:32 AM
--- NOTE | 2020-11-01 07:45 | CT Scan Report ---
CT ANGIOGRAM OF THE NECK CLINICAL HISTORY: Strokelike symptoms. COMPARISON STUDY: CT angiogram of the neck dated 06/18/2019. TECHNIQUE: Following the IV administration of 120 of Optiray 500, CT angiogram of the neck was perfor med from the aortic arch to the skull base. Images are reviewed in the axial, sagittal, and coronal p lanes. 3-D MIPS images are created and assessed. IV contrast was administered without complication. A ll measurements were calculated based on NASCET criteria. A dose lowering technique was utilized adh ering to the principles of ALARA. FINDINGS: Thoracic aorta: Visualized portions of the thoracic aorta are normal in caliber. The aortic arch demo nstrates standard 3-vessel anatomy. Right carotid arterial system: The right common carotid artery is widely patent, as are the right int ernal and external carotid arteries. Calcified plaque is noted in the carotid bulb. Left carotid arterial system: The left common carotid artery is widely patent, as are the left trestle mainternance laborer al and external carotid arteries. Mild plaque is noted in the carotid bulb. Vertebral arteries: The vertebral arteries are widely patent noting left-sided dominance. Subclavian arteries: Widely patent bilaterally. Intracranial vasculature: The visualized intracranial vessels at the skull base are patent. Jugular veins: Widely patent bilaterally. Brain parenchyma: The visualized brain parenchyma the skull base is within normal limits. Upper chest: The patient is status post midline sternotomy. Partially visualized upper lobe lung pare nchyma appears clear. Soft tissues: The visualized pharyngeal soft tissues are normal in appearance noting angiographic pha se technique. The oropharyngeal airway appears widely patent. The salivary and thyroid glands are nor mal in appearance. No cervical lymphadenopathy is seen. Skeletal structures: The skeletal structures are osteopenic. The visualized calvarium at the skull ba se appears intact. The imaged cervical spine is maintained noting mild spondylosis. No lytic or blast ic lesion is identified. Sinuses and mastoids: There is trace mucosal thickening in the left maxillary antrum. The mastoid air cells are well pneumatized. IMPRESSION: Unremarkable CT angiogram of the neck. ACT 112: Negative or not required by law. Electronically signed by: Jonny Zambrano M.D. 11/01/2020 7:43 AM
--- NOTE | 2020-11-01 08:12 | Communication Note ---
Date of Service: November 01, 2020 Patient seen and examined. Discussed with critical care ADOLPH. Chart reviewed. Discussed with bedside nursing and on multidisciplinary rounds. 75-year-old male with prior history of strokes presented with occipital headache. After telestroke consultation, patient was administered TPA and is in the ICU post TPA for monitoring. He states his headache is resolved. Not having any real neurological complaints currently and his NIH is 1. He is tolerating a diet. His blood pressure has been acceptable. We will continue to follow in the ICU post TPA administration per protocol. Follow-up imaging at 24 hours (9 PM this evening). If no evidence of hemorrhage, the patient can transfer to the floor under the care of the hospitalist. Await formal neurology consultation. Post TPA orders have been completed. Echo is pending. Will need PT OT evaluations tomorrow. Okay to continue Plavix. Additional 35 minutes critical care time evaluating managing and coordinating care for this patient. Coding Level of Care Code Critical Care rowan [email or web address]'l 30 min Time Spent (min) 35
[2020-11-01] MEDS: MEMANTINE HCL 5 MG TAB PO SCH ×2 (08:29→20:18)
[2020-11-01] MEDS: CALCIUM 600MG + VIT D 400 IU TAB PO SCH (08:29)
[2020-11-01] MEDS: VENLAFAXINE HCL XR 150 MG CAPXR PO SCH (08:29)
[2020-11-01] MEDS: DONEPEZIL HCL 10 MG TAB PO SCH (08:29)
[2020-11-01] MEDS: PENTOXIFYLLINE 400MG EXT REL TAB PO SCH ×2 (08:29→20:20)
[2020-11-01] MEDS: ATORVASTATIN 40 MG TAB PO SCH (08:29)
[2020-11-01] MEDS: METOPROLOL SUCC 25MG EXT REL TAB PO SCH (08:29)
[2020-11-01] MEDS: PANTOprazole 40 MG TAB PO SCH (08:29)
[2020-11-01] MEDS: CYANOCOBALAMIN 500 MCG TABLET (VITAMIN B-12) PO SCH (08:30)
[2020-11-01] MEDS: POLYETHYLENE (MIRALAX) 17 GM PACK PO SCH (08:30)
--- NOTE | 2020-11-01 09:44 | Neurology Consultation ---
Date of Consultation November 01, 2020 Assessment & Plan (1) Left-sided weakness: (2) Cervicogenic headache: (3) Migraines: (4) Diabetic peripheral neuropathy: (5) Cognitive disorder: (6) Delusional disorder, somatic type: (7) Conversion disorder: (8) Intermittent explosive disorder: This is a very complicated patient neurologically. He has had multiple episodes over the last 20 years,of headaches, chest pain, weakness and speech problems all resulting in no diagnosis of stroke after testing. he has an episode yesterday of headache and left-sided weakness which has resolved. He was given tPA however and I cannot prove whether the improvement in his weakness was due to the tPA or just random/time. Currently, his neurologic examination is unremarkable without focal findings, meningeal signs, or encephalopathy. CT head, CT angiography of the head and neck, and MRI of the brain were unremarkable. Given his longstanding history of suppose it cerebral vascular events his MRI does not show hardly any changes consistent with small vessel ischemic disease and no areas of encephalomalacia. Therefore I suspect conversion disorder versus "complicated migraine" to explain his event yesterday. Patient has a history of migraines which are markedly improved and he has cerv icogenic headaches as well. There is diabetic polyneuropathy involving predominantly sensory fibers of the longstanding nature as well. He has mild cognitive impairment, stable on donepezil and memantine. He has other psychiatric diagnoses but is stable currently on venlafaxine. He did have parkinsonism secondary to risk call but this has improved. I see no evidence of parkinsonism today. Otherwise, stroke risk factors include diabetes, history of cigarette smoking, dyslipidemia, and age. Recommendations: 1. Continue clopidogrel 75 mg daily. There is no indication for anticoagulati on at this time 2. Increase activity as able 3. Follow post tPA protocol and obtain CT scan of the head later today. 4. Echocardiogram is pending, however, echocardiogram from July of 2020 was largely unremarkable 5. Keep all other neurologic medications the same for now. 6. The patient currently follows with Dr. Stokes as an outpatient. I can follow him as an outpatient during her maternity leave which is going to start in a couple of weeks. Overall, I spent a total of 120 minutes with this case including review of records, review of MRI films, direct evaluation patient at bedside, and discussion of the case with the patient at bedside, RN at bedside, and Dr. No, including differential diagnosis and treatment options. History of Present Illness Reason for Consultation: patient is a 75-year-old, who I was asked to see the request of Dr. Damian, for neurologic consultation regarding stroke-like symptoms. Requesting Physician: Dr. Damian Attending Physician: Sid No History of Present Illness I 1st saw this patient in 2003 for unusual migraine headaches associated with other symptoms including weakness, vision issues, gait disturbance, dizziness, and numbness. These were considered "complicated migraines" he had multiple episodes that would result in hospitalizations ever since 1998. he had 5 admissions in 2006 all for similar symptoms. I saw him each time and MRIs and EEGs were unremarkable. MR angiography of the head neck were unremarkable as well. He was on a baby aspirin tablet and because of essential tremor 10 mg propranolol twice daily. He has a longstanding history of type 2 diabetes with nephropathy and significant polyneuropathy. Over the years topiramate resolved his headaches and he went "spell" free for about 5 years, seeing him last in clinic in 2014. 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 Then again in December of 2017, he had an episode of headache, chest pain, left- sided weakness and numbness as well as breathing difficulties. CT scan of the head was unremarkable. CT scan of the chest showed cardiomegaly but no other signs of pulmonary emboli. CT angiography of the head neck were unremarkable an MRI of the brain showed no stroke. This resolved and I lost him to follow-up. He started seeing Dr. Stokes in clinic and in the hospital. He last saw Dr. Stokes in September of 2020. In June of 2019 he spent 2 weeks in the hospital for physical and psychiatric issues. He is acquired sudden onset of quadriplegia with no new stroke or neurologic problem. He was seen by Psychiatry and final diagnoses were delusional disorder somatic type, intermittent explosive disorder, conversion disorder, and psychosis with history of bipolar disorder. He was manic and hyperverbal with delusions when he presented. The patient had parkinsonism secondary to Risperdal. Risperdal eventually was discontinued but the Nuplazid given for hallucinations was continued. He has mild cognitive impairment and is on 5 mg twice daily memantine and 10 mg done pezil. He has been on Plavix 75 mg a day and a 12 a statin 40 mg a day. Finally, he has been on venlafaxine 150 mg a day and he tells me that his mood has been doing very well. The patient was a long time cigarette smoker and heavy alcohol user in the past ( 1/5 whiskey per day most days ) but he quit both cigarettes and alcohol about 5 years ago. patient states that he had his 1st significant headache in many months in July of 2020. it was accompanied by some left-sided weakness and chest pain. A CT of the head and CT angiography of the chest were unremarkable. He saw Dr. Carranza who kept him on his current medication. Patient woke up October 31 feeling well. He took a 3 mi walk and went to baptism. He ate a full dinner and was active in the afternoon taking another 3 mi walk l ater. Around 1700 he had the onset of significant headache bi occipitally radiating to his ears and side of the head. After urinating, he stood up and noted that he had left-sided weakness at 1730. He arrived to the emergency room October 31 at 2040 with a temperature of 37.0, pulse 72, respiratory rate 18, blood pressure 141/82, and O2 saturation 96%. On exam he was noted to have left arm and leg drift with some ataxia and NIH stroke scale of 5. tele health stroke visit with at [place] resulted in tPA be given. CT scan of the head as well as CT angiography of the head and neck were all unremarkable. CBC and Chem profile were unremarkable as well. During tPA the patient felt that his left-sided weakness was getting better. MRI of the brain revealed no acute stroke. Has only mild nonspecific small vessel ischemic changes and some mild atrophy in general with no other evidence of encephalomalacia suggesting stroke in the past. This morning he feels his left arm and leg have normal strength. He only has a very slight residual occipital headache. He has no chest pain or other issues. Allergies Allergy/AdvReac Type Severity Reaction Status Date / Time morphine AdvReac Severe "STOPS MY Verified 10/31/20 21:27 HEART" hydromorphone [From Dilaudid] AdvReac Intermediate unresponsiv Verified 10/31/20 21:27 eness trazodone AdvReac Intermediate GI UPSET Verified 10/31/20 21:27 diazepam AdvReac Mild HALLUCINATE Verified 10/31/20 21:27 S propoxyphene AdvReac Mild DRUG Verified 10/31/20 21:27 INTOLERANCE Home Medications Medication Instructions Recorded Confirmed Type acetaminophen [Tylenol Extra 1,000 mg PO Q8H PRN 06/05/19 10/31/20 History Strength] polyethylene glycol 3350 17 17 gm PO QAM 07/16/19 10/31/20 History gram/dose oral powder atorvastatin 40 mg tablet 40 mg PO QAM #90 tab 12/02/19 10/31/20 Rx calcium carbonate-vitamin D3 1 cap PO QAM 03/14/20 10/31/20 History clopidogrel 75 mg PO QAM 05/09/20 10/31/20 History cyanocobalamin (vitamin B-12) 1,000 mcg PO QAM 05/09/20 10/31/20 History [Vitamin B-12] donepezil 10 mg PO QAM 05/09/20 10/31/20 History metoprolol succinate 25 mg PO QAM 05/09/20 10/31/20 History pentoxifylline 400 mg PO BID 05/09/20 10/31/20 History insulin glargine 100 unit/mL (3 45 unit SUBCUT HS #45 ml 06/30/20 10/31/20 Rx mL) subcutaneous pen insulin lispro 100 unit/mL 20 - 40 unit SQ .COMPLEX #15 ml 09/15/20 10/31/20 Rx subcutaneous pen pantoprazole 40 mg tablet,delayed 40 mg PO QAM #90 tab 09/20/20 10/31/20 Rx release memantine 5 mg tablet 5 mg PO BID 60 Days #120 tab 09/22/20 10/31/20 Rx pimavanserin 34 mg capsule 34 mg PO PM 30 Days #30 cap 09/22/20 10/31/20 Rx furosemide 40 mg tablet 40 mg PO WK PRN #30 tab 10/07/20 10/31/20 Rx venlafaxine 75 mg capsule,extended 150 mg PO DAILY 90 Days #180 cap 10/28/20 10/31/20 Rx release 24 hr Patient History Medical History Acute diastolic (congestive) heart failure (06/2019) Arsenic poisoning Asymptomatic cholelithiasis Atypical chest pain Benign colonic polyp CAD in [place] artery Cellulitis Cognitive disorder Controlled type 2 diabetes mellitus with neurologic complication, 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 Mejia Nephrolithiasis Neurological deficit present Neuropathy Noninfected skin tear of left lower extremity Osteoarthritis Osteopenia determined by x-ray Raynauds phenomenon Stage III chronic kidney disease Thyroid disorder screening Tubular adenoma of colon Venous (peripheral) insufficiency Vitamin D deficiency Wound of left foot Surgical History History of ankle surgery History of arthroscopy of left knee History of cardiac cath x3-4, last 2014 History of carpal tunnel release of both wrists History of colonoscopy History of heart artery stent (1998) History of lithotripsy x2 History of lumbar discectomy x2 History of open reduction and internal fixation (ORIF) procedure left ankle--hardware in place History of right cataract extraction History of tonsillectomy and adenoidectomy S/P CABG (coronary artery bypass graft) S/P sinus surgery Status post uvulopalatopharyngoplasty Family History Father , age 74 of an [place] Diabetes Prostate cancer Colorectal cancer Myocardial infarction Brother Prostate cancer Uncle Colorectal cancer Father Myocardial infarction Mother Myocardial infarction Stroke Other Dementia No family history of adverse response to anesthesia Denies family history of Ovarian cancer Breast cancer Social History Smoking Status: Former smoker Tobacco Type: Cigarettes Age Quit Using Tobacco: 71; packs per day: 3; Cigarettes Per Day: Camels since 7 years old.; Second Hand Exposure: No; Hx Alcohol Use: No ( history of alcohol abuse ( 1/5 whiskey per day), quitting age 71) Hx Substance Use: No Preferred Language: Belgian Communication Ability: Effective Visual Impairment: No Limitations Hearing Ability: Normal Business Proposal Rep Required: No Beliefs That Will Affect Care: None marital status: marital status details: 3 children Current Living Situation: Spouse current occupational status: retired 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); chemical exposure Feels Safe at Home: Yes Safety Concerns: Feels Safe At This Time Seatbelt Use: always Assistive Devices: None Review of Systems Constitutional: no fever, no fatigue and no weakness Eyes: no diplopia, no eye pain and no worsening vision Ear, Nose, Mouth, Throat: no ear pain, no tinnitus, no hearing loss, no dizziness, no hoarseness and no dysphagia Respiratory: no cough and no dyspnea Cardiovascular: no chest pain, no palpitations and no lightheadedness Gastrointestinal: no abdominal pain, no nausea and no vomiting Genitourinary: no dysuria and no urinary incontinence Musculoskeletal: + neck pain; no back pain, no radicular pain, no joint pain and no myalgia Integumentary: no rash and no lesions Neurologic: + headache(s) and + memory loss; no gait abnormality, no localized weakness, no generalized weakness, no tingling, no numbness, no tremor(s), no abnormal movements, no abnormal speech and no confusion Psychiatric: + anxiety; no depression, no irritability, no difficulty concentrating, no confusion and no hallucinations Endocrine: no fatigue and no flushing Hematologic / Lymphatic: no easy bleeding and no easy bruising Allergy / Immunological: no urticaria and no problem reported Exam (Neuro) Physical Exam: The patient is right-handed. The patient is awake, alert, and attentive. Speech is normal without any aphasia or dysarthria. he can name objects, repeat phrases, and has normal spontaneous speech. Mentation and thought processes are intact, with orientation to person, place and time, and normal fund of knowledge. Attention and concentration are normal. Mood and affect are normal and appropriate. General appearance and grooming are normal. Short and long-term memory are intact to conversation. The discs are sharp with positive venous pulsations bilaterally. There are no exudates, hemorrhages, or blood vessel changes seen. Pupils are 4 mm bilaterally and reactive to light. Extraocular eye muscles are intact without nystagmus. Visual acuity and visual leo seem normal grossly to confrontation. There are no deficits to sensation in the face in all 3 distributions of the fifth cranial nerve bilaterally. Corneal reflexes are positive bilaterally. Facial strength and symmetry was normal bilaterally. Hearing seems normal to whisper and finger rub bilaterally. Palate moves well without asymmetry. There is normal sternocleidomastoid and trapezius (shoulder shrug) strength bilaterally. Tongue is midline with good strength bilaterally. Neck has a full range of motion without discomfort. There are no cervical bruits bilaterally. There are no cranial or ocular bruits. Heart is without murmur. There is a regular rhythm and rate. Cervical, thoracic, and lumbar spine are mildly tender to palpation. Gait is not tested but stance sitting up in bed is reasonable. With outstretched arms there is no drift. There are no resting, postural, or action tremors. There is no ataxia with finger to nose testing. There is good facility in the hands. No other abnormal involuntary movements are noted. Motor strength is 5/5 diffusely in the arms bilaterally including deltoids, biceps, triceps, brachioradialis, wrist flexors and extensors, bit grinder, and intrinsic hand muscles. Motor strength is 5/5 diffusely in the legs bilaterally including hip flexors, quadriceps, hamstrings, gastrocnemius, tibialis anterior, tibialis posterior, and Peroneii muscles. Toe extensors are normal and there is good bulk in the extensor digitorum brevis muscles bilaterally. The limbs have good tone without rigidity or spasticity. There is no atrophy noted in the muscles. Muscle bulk is normal, there is no tenderness to palpation, no myotonia to percussion, and no fasciculations seen. Sensory examination Reveals decreased pin in the feet bilaterally Reflexes are 1/4 in the biceps, triceps, and brachioradialis tendons bilaterally. quadriceps and Achilles tendon reflexes are absent bilaterally. There is no clonus bilaterally. Toes are downgoing with plantar stimulation bilaterally. Peripheral pulses are present and of normal quality distally in all 4 limbs. There is no peripheral edema noted in the limbs. Results & Data ([facility]) Vital Signs (Past 12 Hours) Vital Signs Temp Pulse Pulse Resp BP BP Pulse Ox 11/01/20 07:20 86 13 97 11/01/20 07:10 80 14 95 11/01/20 07:00 69 18 95 11/01/20 06:50 74 14 95 11/01/20 06:40 69 19 95 11/01/20 06:30 36.9 C 83 71 18 163/90 H 163/90 H 96 11/01/20 06:20 82 19 97 11/01/20 06:10 84 16 96 11/01/20 06:00 82 17 95 11/01/20 05:50 80 17 95 11/01/20 05:40 83 16 96 11/01/20 05:30 36.9 C 81 79 17 136/88 136/88 97 11/01/20 05:26 81 13 137/81 96 11/01/20 05:20 81 17 95 11/01/20 05:11 80 19 136/80 96 11/01/20 05:10 79 16 94 11/01/20 05:00 36.7 C 81 80 16 130/80 94 11/01/20 04:56 78 15 130/69 95 11/01/20 04:50 76 15 95 11/01/20 04:41 79 16 145/74 H 93 11/01/20 04:40 79 17 94 11/01/20 04:30 36.9 C 79 79 15 125/74 94 11/01/20 04:26 78 16 128/74 92 11/01/20 04:20 81 19 94 11/01/20 04:11 85 21 142/76 H 94 11/01/20 04:10 82 26 H 95 11/01/20 04:00 36.9 C 83 88 17 123/72 94 11/01/20 03:56 85 17 123/72 93 11/01/20 03:50 75 17 95 11/01/20 03:41 90 22 125/74 93 11/01/20 03:40 83 17 95 11/01/20 03:30 36.7 C 82 81 17 129/68 95 11/01/20 03:26 81 17 129/68 92 11/01/20 03:20 83 17 93 11/01/20 03:11 78 17 120/72 93 11/01/20 03:10 83 16 94 11/01/20 03:00 36.8 C 78 79 16 145/74 H 93 11/01/20 02:56 75 18 145/74 H 92 11/01/20 02:50 83 17 98 11/01/20 02:41 76 18 130/72 94 11/01/20 02:40 81 16 93 11/01/20 02:30 36.6 C 81 85 15 148/87 H 94 11/01/20 02:26 82 19 148/87 H 96 11/01/20 02:20 83 19 96 11/01/20 02:11 84 20 134/90 97 11/01/20 02:10 84 15 96 11/01/20 02:00 36.6 C 80 85 20 151/58 H 97 11/01/20 01:56 68 15 151/85 H 97 11/01/20 01:50 71 17 96 11/01/20 01:43 71 14 97 11/01/20 00:30 36.7 C 60 16 142/65 H 96 11/01/20 00:00 36.6 C 60 18 138/99 97 10/31/20 23:43 59 L 10/31/20 23:30 36.6 C 68 18 152/80 H 97 10/31/20 23:15 37 C 65 18 164/91 H 97 10/31/20 23:00 37 C 61 18 191/92 H 96 10/31/20 22:45 36.9 C 62 16 178/97 H 97 10/31/20 22:30 36.9 C 61 18 172/95 H 97 10/31/20 22:21 37.0 C 72 18 170/95 H 97 10/31/20 22:15 36.8 C 63 18 174/95 H 96 10/31/20 22:00 65 18 175/89 H 95 10/31/20 21:45 61 16 170/95 H 95 10/31/20 21:30 37.0 C 64 18 175/95 H 96 PG Care Time/CCT Total # of Minutes Spent Total Time Spent with Patient: Total time spent is greater than 50% in coordination of care (as documented) at patient's floor/unit and/or counseling patient: Coding Level of Care Code 99475 Initial Inpt Care Lvl 3 Diagnoses Left-sided weakness R53.1 Cervicogenic headache R51.9 Migraines G43.909 Diabetic peripheral neuropathy E11.42 Cognitive disorder F09 Delusional disorder, somatic type F22 Conversion disorder F44.9 Intermittent explosive disorder F63.81 Time Spent (min) 120 Comment add [id number] to the [id number]
--- NOTE | 2020-11-01 10:09 | Hospitalist Progress Note ---
Date of Service November 01, 2020 Assessment & Plan (1) Received intravenous tissue plasminogen activator (tPA) in emergency depa rtment: CVA with left-sided weakness/received TPA in the emergency department- Admission to intensive care unit and consult telegraph and teletype operator Stroke with TPA order set for first 24 hours after TPA. Assessed as a stroke alert by [facility] stroke neurology while in the ED Consult PT/OT/speech/nephrology social worker/neurology Patient began to show improvement in left-sided weakness was still receiving TPA in the ED. Normal control targets hypertension Given hydralazine 10 mg IV x1 in the ED and assess need for further antihypertensives based on response Ok to transfer out of the unit in the evening. Plan is to monitor for 24 hours. Does not appear to be a stroke given negative MRI. Likely complex migraine vs conversion disorder. (2) Cerebrovascular accident: See above (3) Cervicogenic headache: Given Tylenol (4) CAD in [facility] artery: CAD/PAD- On Plavix and pentoxifylline (5) Stage III chronic kidney disease: Creatinine stable at 1.10. Follow serially (6) Diabetes mellitus, type 2: Reduce insulin glargine 45 to 20 units subcu at bedtime due to borderline low blood sugar. Placed on Accu-Cheks before meals and at bedtime with NovoLog coverage per scale Check hemoglobin A1c (7) Hyperlipidemia: Increasing atorvastatin from 40 to 80 mg daily Check a fasting lipid panel (8) Esophageal reflux: Continue pantoprazole (9) Cognitive disorder: Cognitive disorder/agitation/anxiety Continue donepezil, memantine, venlafaxine and pimavanserin (10) Migraines: Tylenol as needed (11) Admitted to intensive care unit: Consult telegraph and teletype operator Admission and Anticipated Discharge Date Admission Date: October 31, 2020 Subjective Patient reports no new symptoms Review of Systems Review of Systems: The patient denies chest pain, palpitations, shortness of breath, dyspnea on exertion, cough, lower extremity swelling, sore throat, fevers, chills, sweats, nausea, vomiting, diarrhea , constipation, abdominal pain, pelvic pain, blood in urine or stool, dysuria, urinary frequency or urgency, lightheadedness, dizziness, loss of consciousness, rash, abnormal bruising or bleeding, eneralized arthralgias or myalgias, back or neck pain, or night sweats. The review of systems is otherwise negative other than for that already noted above, and at least 10 systems have been reviewed. Physical Exam Physical Exam: The patient is awake, alert and oriented 3, well developed and well nourished, normocephalic and atraumatic, lying in bed and in no acute distress. HEENT--PERRL, EOMI, mucous membranes and oropharynx dry. Neck--supple. No JVD. No bruits. Thyroid normal, trachea midline, no adenopathy. Heart--normal S1 and S2. No murmurs, rubs or gallops. Lungs--clear bilaterally, no respiratory distress, no accessory muscle use. Abdomen--normal bowel sounds and soft. Nontender. Nondistended, no hernias or masses, no organomegaly. Extremities--no cyanosis or clubbing. No edema. There are good distal pulses b/l. Dermatologic--normal skin turgor, normal color, no abnormal lymph nodes, no rash. Neurologic--cranial nerves II through XII grossly intact. He continued to have normal sensory function Rheumatologic--limited on the left due to stroke Psychiatric--normal affect. Results & Data Results & Data ([facility]) Vital Signs (Past 12 Hours) Vital Signs Temp Pulse Pulse Resp BP BP Pulse Ox 11/01/20 07:20 86 13 97 11/01/20 07:10 80 14 95 11/01/20 07:00 69 18 95 11/01/20 06:50 74 14 95 11/01/20 06:40 69 19 95 11/01/20 06:30 36.9 C 83 71 18 163/90 H 163/90 H 96 11/01/20 06:20 82 19 97 11/01/20 06:10 84 16 96 11/01/20 06:00 82 17 95 11/01/20 05:50 80 17 95 11/01/20 05:40 83 16 96 11/01/20 05:30 36.9 C 81 79 17 136/88 136/88 97 11/01/20 05:26 81 13 137/81 96 11/01/20 05:20 81 17 95 11/01/20 05:11 80 19 136/80 96 11/01/20 05:10 79 16 94 11/01/20 05:00 36.7 C 81 80 16 130/80 94 11/01/20 04:56 78 15 130/69 95 11/01/20 04:50 76 15 95 11/01/20 04:41 79 16 145/74 H 93 11/01/20 04:40 79 17 94 11/01/20 04:30 36.9 C 79 79 15 125/74 94 11/01/20 04:26 78 16 128/74 92 11/01/20 04:20 81 19 94 11/01/20 04:11 85 21 142/76 H 94 11/01/20 04:10 82 26 H 95 11/01/20 04:00 36.9 C 83 88 17 123/72 94 11/01/20 03:56 85 17 123/72 93 11/01/20 03:50 75 17 95 11/01/20 03:41 90 22 125/74 93 11/01/20 03:40 83 17 95 11/01/20 03:30 36.7 C 82 81 17 129/68 95 11/01/20 03:26 81 17 129/68 92 11/01/20 03:20 83 17 93 11/01/20 03:11 78 17 120/72 93 11/01/20 03:10 83 16 94 11/01/20 03:00 36.8 C 78 79 16 145/74 H 93 11/01/20 02:56 75 18 145/74 H 92 11/01/20 02:50 83 17 98 11/01/20 02:41 76 18 130/72 94 11/01/20 02:40 81 16 93 11/01/20 02:30 36.6 C 81 85 15 148/87 H 94 11/01/20 02:26 82 19 148/87 H 96 11/01/20 02:20 83 19 96 11/01/20 02:11 84 20 134/90 97 11/01/20 02:10 84 15 96 11/01/20 02:00 36.6 C 80 85 20 151/58 H 97 11/01/20 01:56 68 15 151/85 H 97 11/01/20 01:50 71 17 96 11/01/20 01:43 71 14 97 11/01/20 00:30 36.7 C 60 16 142/65 H 96 11/01/20 00:00 36.6 C 60 18 138/99 97 10/31/20 23:43 59 L 10/31/20 23:30 36.6 C 68 18 152/80 H 97 10/31/20 23:15 37 C 65 18 164/91 H 97 10/31/20 23:00 37 C 61 18 191/92 H 96 10/31/20 22:45 36.9 C 62 16 178/97 H 97 10/31/20 22:30 36.9 C 61 18 172/95 H 97 10/31/20 22:21 37.0 C 72 18 170/95 H 97 10/31/20 22:15 36.8 C 63 18 174/95 H 96 PG Care Time/CCT Total # of Minutes Spent Total Time Spent with Patient: Total time spent is greater than 50% in coordination of care (as documented) at patient's floor/unit and/or counseling patient: Coding Level of Care Code 57224 Subseq Hosp Care Lvl 3 Diagnoses Received intravenous tissue plasminogen activator (tPA) in emergency department Z92.82 Cerebrovascular accident I63.9 CVA mechanism: unspecified Cervicogenic headache R51.[address] [place] artery I25.10 Stage III chronic kidney disease N18.3 Diabetes mellitus, type 2 E11.42; Z79.4 Diabetes mellitus complication detail: with polyneuropathy Diabetes mellitus complication status: with neurologic complications Diabetes mellitus lobsterman insulin use: with correction use Hyperlipidemia E78.5 Hyperlipidemia type: unspecified Esophageal reflux K21.9 Esophagitis presence: esophagitis presence not specified Cognitive disorder F09 Migraines G43.909 Admitted to intensive care unit Z78.9 Time Spent (min) 35 (1) Diabetes mellitus, type 2 Diabetes mellitus complication detail: with polyneuropathy Diabetes mellitus complication status: with neurologic complications Diabetes mellitus correction insulin use: with correction use Qualified Code(s): E11.42 - Type 2 diabetes mellitus with diabetic polyneuropathy; Z79.4 - detention (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 (2) Hyperlipidemia Hyperlipidemia type: unspecified Qualified Code(s): E78.5 - Hyperlipidemia, unspecified (3) Cerebrovascular accident CVA mechanism: unspecified Qualified Code(s): I63.9 - Cerebral infarction, unspecified (4) Esophageal reflux Esophagitis presence: esophagitis presence not specified Qualified Code(s): K21.9 - Gastro-esophageal reflux disease without esophagitis
--- NOTE | 2020-11-01 11:06 | XCELERA ---
[id number]
[2020-11-01] MEDS: INSULIN ASPART 100 UNITS/ML 3 ML PEN SC SCH ×3 (11:38→20:17)
--- NOTE | 2020-11-01 17:54 | Electrocardiogram Report ---
Test Reason : Blood Pressure : / mmHG Vent. Rate : 070 BPM Atrial Rate : 070 BPM P-R Int : 184 ms QRS Dur : 128 ms QT Int : 434 ms P-R-T Axes : 055 -47 005 degrees QTc Int : 468 ms Sinus rhythm with occasional , and consecutive PACs Left axis deviation Right bundle branch block Inferior infarct (cited on or before 19-JAN-2016) Abnormal ECG When compared with ECG of 28-SEP-2020 13:33, PACs are now present Confirmed by Wai Gill ([id number]) on 11/01/2020 5:54:45 PM Referred By: REFERRED SELF Confirmed By:Jaydon Gill
[2020-11-01] MEDS ORDERED: INSULIN GLARGINE SOLOSTAR 100 UNITS/ML 3 ML PEN SQ SCH ×2 (21:00)
[2020-11-01] MEDS ORDERED: PIMAVANSERIN PO SCH (21:00)
[2020-11-01] MEDS: CLOPIDOGREL BISULFATE 75 MG TAB PO SCH (23:22)
[2020-11-02 04:17] LABS: Basophils # (auto) 0.01 K/uL (0-0.2); Basophils % (auto) 0.2 %; Eosinophils # (auto) 0.12 K/uL (0-0.5); Eosinophils % (auto) 2.6 %; Hematocrit (blood only) 41.4 % (42-52); Hemoglobin 13.8 g/dL (14.0-18.0); Immature Granulocytes # (auto) 0.02 K/uL (0.00-0.02); Immature Granulocytes % (auto) 0.4 %; Lymphocytes % (auto) 21.6 %; Mean Corpuscular Hgb Conc 33.3 g/dL (32-36); Mean Platelet Volume 10.3 fL (7.4-10.4); Monocytes # (auto) 0.41 K/uL (0.11-0.59); Monocytes % (auto) 8.8 %; Neutrophils # (auto) 3.08 K/uL (1.4-6.5); Neutrophils % (auto) 66.4 %; Platelet Count 158 K/uL (130-400); RDW Coefficient of Variation 14.4 % (11.5-14.5); RDW Standard Deviation 45.5 fL (36.4-46.3); Red Blood Count 4.76 M/uL (4.7-6.1); White Blood Count 4.64 K/uL (4.8-10.8)
[2020-11-02 04:28] LABS: Partial Thromboplastin Ratio 0.9; Partial Thromboplastin Time 22.5 Seconds (21.0-31.0); Prothrombin Time 10.1 Seconds (9.0-12.0)
[2020-11-02 04:42] LABS: Albumin Level 3.2 gm/dl (3.4-5.0); BUN Creatinine Ratio 15.6 (10-20); Bilirubin Direct 0.1 mg/dl (0-0.2); Bilirubin,Total 0.5 mg/dl (0.2-1); Calcium 8.3 mg/dl (8.5-10.1); Creatinine Clr Calc Pharmacy 71.9 ml/min; Est GFR (African American) 81.6 ml/min; Est GFR (Non-African American) 70.4 ml/min; Magnesium 2.3 mg/dl (1.8-2.4); Potassium 4.5 mmol/L (3.5-5.1); Total Protein 6.3 gm/dl (6.4-8.2); Troponin I 0.017 ng/ml (0-0.045)
[2020-11-02] MEDS: NSS + 20MEQ KCL 20 MEQ/1,000 ML BAG IV SCH (06:15)
--- NOTE | 2020-11-02 06:52 | CT Scan Report ---
CT OF THE HEAD WITHOUT CONTRAST CLINICAL HISTORY: f/u s/p TPA COMPARISON STUDY: Head CT and head CTA October 31, 2020 and MRI of the brain November 01, 2020. CT DOSE: 614.27 mGy.cm TECHNIQUE: Helical axial images of the head were obtained without IV contrast. Automated exposure con trol was utilized for the study. A dose lowering technique was utilized adhering to the principles o f ALARA. FINDINGS: No acute intracranial hemorrhage, midline shift or mass effect is present. The ventricular system is unremarkable. The basal cisterns are patent. No extra-axial collections are present. There are no findings to suggest acute dural sinus thrombosis or acute territorial infarct. No significant calvarial abnormalities are present. Visualized portions of the sinuses and mastoid air cells are jean paul ar. IMPRESSION: No acute intracranial findings. ACT 112: Negative or not required by law. Electronically signed by: Barber Finnegan M.D. 11/02/2020 6:51 AM
[2020-11-02] MEDS: PENTOXIFYLLINE 400MG EXT REL TAB PO SCH (07:42)
[2020-11-02] MEDS: METOPROLOL SUCC 25MG EXT REL TAB PO SCH (07:43)
[2020-11-02] MEDS: CLOPIDOGREL BISULFATE 75 MG TAB PO SCH (07:43)
[2020-11-02] MEDS: PANTOprazole 40 MG TAB PO SCH (07:43)
[2020-11-02] MEDS: ATORVASTATIN 40 MG TAB PO SCH (07:43)
[2020-11-02] MEDS: MEMANTINE HCL 5 MG TAB PO SCH (07:43)
[2020-11-02] MEDS: VENLAFAXINE HCL XR 150 MG CAPXR PO SCH (07:43)
[2020-11-02] MEDS: POLYETHYLENE (MIRALAX) 17 GM PACK PO SCH (07:44)
[2020-11-02] MEDS: CYANOCOBALAMIN 500 MCG TABLET (VITAMIN B-12) PO SCH (07:44)
[2020-11-02] MEDS: DONEPEZIL HCL 10 MG TAB PO SCH (07:44)
[2020-11-02] MEDS: CALCIUM 600MG + VIT D 400 IU TAB PO SCH (07:44)
--- NOTE | 2020-11-02 07:46 | Critical Care Progress Note ---
Date of Service November 02, 2020 Assessment & Plan (1) Received intravenous tissue plasminogen activator (tPA) in emergency dep artment: (2) Admitted to intensive care unit: Impression: 75-year-old male typical headache in like symptoms. He received TPA in the emergency room and was admitted to the ICU for observation post TPA administration. Recommendations: 1. Post TPA administration: The patient's follow-up imaging in 24 hours has demonstrated no evidence of bleeding. In fact his MRI of the brain was normal. He can be dismissed from the ICU session per hospitalist and neurology. 2. Headache: Suspect migraine or migraine equivalent. The patient also has a history of conversion disorder. Would be very judicious in additional administration of TPA in the future. 3. Hyperlipidemia/hypertension/cardiovascular disease: Continue Plavix Lovenox and Lasix. Continue metoprolol. 4. Diabetes: Continue insulin regiment Critical care will sign off at this point time as his critical care issues are resolved. Ultimate disposition per the hospitalist. Feel free to contact us if we can be of additional assistance (3) Migraines: Admission and Anticipated Discharge Date Admission Date: October 31, 2020 Subjective No complaints this morning. The patient's NIH is reportedly 0-1. His headache is resolved. Review of Systems Review of Systems: All systems reviewed & are unremarkable except as noted in HPI & below Physical Exam Constitutional: WD/WN, vitals as above Neck: trachea midline, no thyromegaly Respiratory: normal respiratory effort, lungs clear to auscultation Cardiovascular: RRR, no murmur, no edema Gastrointestinal (Abdomen): normal bowel sounds, soft, nontender, no h epatosplenomegaly Musculoskeletal: Extremities: extremities normal to inspection Skin: no rashes, warm and dry Neurologic: Nonfocal exam Lymphatic: no cervical lymphadenopathy Results & Data Results & Data ([facility]) Vital Signs (Past 12 Hours) Vital Signs Temp Pulse Pulse Resp BP Pulse Ox 11/02/20 00:00 66 11/01/20 21:30 37.0 C 69 18 149/83 H 95 11/01/20 20:30 36.8 C 76 18 160/86 H 94 Critical Care Results & Data Vital Signs (Past 12 Hours) Vital Signs Temp Pulse Pulse Resp BP Pulse Ox 11/02/20 00:00 66 11/01/20 21:30 37.0 C 69 18 149/83 H 95 11/01/20 20:30 36.8 C 76 18 160/86 H 94 Lab & Micro Results (Past 24 Hours) RBC 4.76 M/uL (4.7-6.1) 11/02/20 WBC 4.64 K/uL (4.8-10.8) L 11/02/20 Hgb 13.8 g/dL (14.0-18.0) L 11/02/20 Hct 41.4 % (42-52) L 11/02/20 MCV 87.0 fL (80-100) 11/02/20 MCH 29.0 pg (25-34) 11/02/20 MCHC 33.3 g/dL (32-36) 11/02/20 RDW Standard Deviation 45.5 fL (36.4-46.3) 11/02/20 RDW Coefficient of Variation 14.4 % (11.5-14.5) 11/02/20 Plt Count 158 K/uL (130-400) 11/02/20 MPV 10.3 fL (7.4-10.4) 11/02/20 Neutrophils (%) (Auto) 66.4 % 11/02/20 Lymphocytes (%) (Auto) 21.6 % 11/02/20 Monocytes # (Auto) 0.41 K/uL (0.11-0.59) 11/02/20 Eosinophils # (Auto) 0.12 K/uL (0-0.5) 11/02/20 Immature Granulocyte % (Auto) 0.4 % 11/02/20 Neutrophils # (Auto) 3.08 K/uL (1.4-6.5) 11/02/20 Lymphocytes # (Auto) 1.00 K/uL (1.2-3.4) L 11/02/20 Monocytes # (Auto) 0.41 K/uL (0.11-0.59) 11/02/20 Eosinophils # (Auto) 0.12 K/uL (0-0.5) 11/02/20 Basophils # (Auto) 0.01 K/uL (0-0.2) 11/02/20 Immature Granulocyte # (Auto) 0.02 K/uL (0.00-0.02) 11/02/20 Na 141 mmol/L (136-145) 11/02/20 K 4.5 mmol/L (3.5-5.1) 11/02/20 Cl 111 mmol/L (98-107) H 11/02/20 CO2 25 mmol/L (21-32) 11/02/20 Anion Gap 5.0 (3-11) 11/02/20 BUN 16 mg/dl (7-18) 11/02/20 Creatinine 1.04 mg/dl (0.6-1.4) 11/02/20 Estimated GFR ( Amer) 81.6 ml/min 11/02/20 Estimated GFR (Non-Af Amer) 70.4 ml/min 11/02/20 BUN/Creatinine Ratio 15.6 (10-20) 11/02/20 Glu 127 mg/dl (70-99) H 11/02/20 Ca 8.3 mg/dl (8.5-10.1) L 11/02/20 Total Bilirubin 0.5 mg/dl (0.2-1) 11/02/20 Direct Bilirubin 0.1 mg/dl (0-0.2) 11/02/20 AST 13 U/L (15-37) L 11/02/20 ALT 22 U/L (12-78) 11/02/20 Alkaline Phosphatase 86 U/L (45-117) 11/02/20 TP 6.3 gm/dl (6.4-8.2) L 11/02/20 Albumin 3.2 gm/dl (3.4-5.0) L 11/02/20 Mg 2.3 mg/dl (1.8-2.4) 11/02/20 04:03 11/02/20 Calcium Level 8.3 mg/dl (8.5-10.1) L 11/02/20 04:03 11/02/20 Prothromb Time International Ratio 1.0 (0.9-1.1) 11/02/20 04:03 11/02/20 Diagnostic Findings (Past 24 Hours) Neck CTA 10/31/20 20:25 CT ANGIOGRAM OF THE NECK CLINICAL HISTORY: Strokelike symptoms. COMPARISON STUDY: CT angiogram of the neck dated 06/18/2019. TECHNIQUE: Following the IV administration of 120 of Optiray 500, CT angiogram of the neck was performed from the aortic arch to the skull base. Images are reviewed in the axial, sagittal, and coronal planes. 3-D MIPS images are created and assessed. IV contrast was administered without complication. All measurements were calculated based on NASCET criteria. A dose lowering technique was utilized adhering to the principles of ALARA. FINDINGS: Thoracic aorta: Visualized portions of the thoracic aorta are normal in caliber. The aortic arch demonstrates standard 3-vessel anatomy. Right carotid arterial system: The right common carotid artery is widely patent, as are the right internal and external carotid arteries. Calcified plaque is noted in the carotid bulb. Left carotid arterial system: The left common carotid artery is widely patent, as are the left internal and external carotid arteries. Mild plaque is noted in the carotid bulb. Vertebral arteries: The vertebral arteries are widely patent noting left-sided dominance. Subclavian arteries: Widely patent bilaterally. Intracranial vasculature: The visualized intracranial vessels at the skull base are patent. Jugular veins: Widely patent bilaterally. Brain parenchyma: The visualized brain parenchyma the skull base is within normal limits. Upper chest: The patient is status post midline sternotomy. Partially visualized upper lobe lung parenchyma appears clear. Soft tissues: The visualized pharyngeal soft tissues are normal in appearance noting angiographic phase technique. The oropharyngeal airway appears widely patent. The salivary and thyroid glands are normal in appearance. No cervical lymphadenopathy is seen. Skeletal structures: The skeletal structures are osteopenic. The visualized calvarium at the skull base appears intact. The imaged cervical spine is maintained noting mild spondylosis. No lytic or blastic lesion is identified. Sinuses and mastoids: There is trace mucosal thickening in the left maxillary antrum. The mastoid air cells are well pneumatized. IMPRESSION: Unremarkable CT angiogram of the neck. ACT 112: Negative or not required by law. Electronically signed by: Jonny Zambrano M.D. 11/01/2020 7:[address] 11/01/20 20:25 CT OF THE HEAD WITHOUT CONTRAST CLINICAL HISTORY: f/u s/p TPA COMPARISON STUDY: Head CT and head CTA October 31, 2020 and MRI of the brain November 01, 2020. CT DOSE: 614.27 mGy.cm TECHNIQUE: Helical axial images of the head were obtained without IV contrast. Automated exposure control was utilized for the study. A dose lowering technique was utilized adhering to the principles of ALARA. FINDINGS: No acute intracranial hemorrhage, midline shift or mass effect is present. The ventricular system is unremarkable. The basal cisterns are patent. No extra-axial collections are present. There are no findings to suggest acute dural sinus thrombosis or acute territorial infarct. No significant calvarial abnormalities are present. Visualized portions of the sinuses and mastoid air cells are clear. IMPRESSION: No acute intracranial findings. ACT 112: Negative or not required by law. Electronically signed by: Barber Finnegan M.D. 11/02/2020 6:51 AM I & O Totals 24 Hours 11/01/20 11/02/20 11/03/20 06:59 06:59 06:59 Intake Total 246 / 246 4483.334 / 4483.334 Output Total 950 / 950 4225 / 4225 Balance -704 / -704 258.334 / 258.334 Cumulative 10/31/20 20:16 thru 11/02/20 06:15 Intake Total 4729.334 Output Total 5175 Balance -445.666 RT Ventilator Mngmt (Last Documented) Ventilator Ordered Settings Respiratory Rate 18 11/01/20 21:30 Ventilator - PT Measurements Respiratory Rate 18 End-Tidal CO2 15 Coding Level of Care Code 68869 Subseq Hosp Care Lvl 2 Diagnoses Received intravenous tissue plasminogen activator (tPA) in emergency department Z92.82 Admitted to intensive care unit Z78.9 Migraines G43.909 Time Spent (min) 35
[2020-11-02] MEDS: INSULIN ASPART 100 UNITS/ML 3 ML PEN SC SCH ×2 (07:48→11:54)
--- NOTE | 2020-11-07 12:23 | Discharge Summary ---
Date of Service November 02, 2020 Admission HPI Per Admitting Provider The patient is a 75-year-old male with a past medical history including superficial hematoma, cervicogenic headache, status post CABG, cellulitis, bilateral lower extremity venous ulcers, recurrent falls, parkinsonism, arsenic poisoning, intermittent explosive disorder, delusional disorder somatic type, diabetes mellitus type 2, chronic HFpEF, vitamin B12 deficiency, CKD stage III, CAD, thiamine deficiency, seizure-like activity, hyperlipidemia, GERD, cognitive disorder, conversion disorder, peripheral neuropathy, migraines and hypertension. Patient presents with symptoms as noted above. CT of head was negative, CTA head and neck were both negative. Patient was assessed by [facility] stroke neurology and felt that TPA was indicated, which was begun and completed in the emergency department. Patient was noticing improvement in both left arm and leg functioning while yet in the ED and receiving TPA. Patient was admitted to the ICU. Principal Diagnosis complex migraine Discharge Exam The patient is awake, alert and oriented 3, well developed and well nourished, normocephalic and atraumatic, lying in bed and in no acute distress. HEENT--PERRL, EOMI, mucous membranes and oropharynx dry. Neck--supple. No JVD. No bruits. Thyroid normal, trachea midline, no adenopathy. Heart--normal S1 and S2. No murmurs, rubs or gallops. Lungs--clear bilaterally, no respiratory distress, no accessory muscle use. Abdomen--normal bowel sounds and soft. Nontender. Nondistended, no hernias or masses, no organomegaly. Extremities--no cyanosis or clubbing. No edema. There are good distal pulses b/l. Dermatologic--normal skin turgor, normal color, no abnormal lymph nodes, no rash. Neurologic--cranial nerves II through XII grossly intact. He continued to have normal sensory function Rheumatologic--limited on the left due to stroke Psychiatric--normal affect. Discharge Data Allergies Allergy/AdvReac Type Severity Reaction Status Date / Time morphine AdvReac Severe "STOPS MY Verified 11/04/20 09:03 HEART" hydromorphone [From Dilaudid] AdvReac Intermediate unresponsiv Verified 11/04/20 09:03 eness trazodone AdvReac Intermediate GI UPSET Verified 11/04/20 09:03 diazepam AdvReac Mild HALLUCINATE Verified 11/04/20 09:03 S propoxyphene AdvReac Mild DRUG Verified 11/04/20 09:03 INTOLERANCE Consultations 10/31/20 22:11 ED Decision to Admit Stat 10/31/20 23:43 Consult Counter Stacker Routine Consult Neurology Routine Ordered Studies 10/31/20 20:25 CT angio head w con Urgent CT angio neck with con Urgent CT head/brain wo con Urgent 11/01/20 20:25 CT head/brain wo con Urgent 11/01/20 23:43 MR brain wo con Routine Hospital Course (1) Received intravenous tissue plasminogen activator (tPA) in emergency department: CVA with left-sided weakness/received TPA in the emergency department- Admission to intensive care unit and consult public health technician Stroke with TPA order set for first 24 hours after TPA. Assessed as a stroke alert by [facility] stroke neurology while in the ED Consult PT/OT/speech/social insurance adviser/neurology Patient began to show improvement in left-sided weakness was still receiving TPA in the ED. Normal control targets hypertension Given hydralazine 10 mg IV x1 in the ED and assess need for further antihypertensives based on response On day of dischargeL Does not appear to be a stroke given negative MRI. Likely complex migraine vs conversion disorder.will continue plavix 75 mg daily will recommend f.u with Neuro in 2-4 weeks (2) Cerebrovascular accident: See above (3) Cervicogenic headache: Given Tylenol (4) CAD in [place] artery: CAD/PAD- On Plavix and pentoxifylline (5) Stage III chronic kidney disease: Creatinine stable at 1.10. Follow serially (6) Diabetes mellitus, type 2: Reduce insulin glargine 45 to 20 units subcu at bedtime due to borderline low blood sugar. Placed on Accu-Cheks before meals and at bedtime with NovoLog coverage per scale Check hemoglobin A1c: 6.7 (7) Hyperlipidemia: Increasing atorvastatin from 40 to 80 mg daily Check a fasting lipid panel (8) Esophageal reflux: Continue pantoprazole (9) Cognitive disorder: Cognitive disorder/agitation/anxiety Continue donepezil, memantine, venlafaxine and pimavanserin (10) Migraines: Tylenol as needed (11) Admitted to intensive care unit: Consult public health technician Total Time Total Time Spent Total Time Spent (In Minutes): 32 Total Time Includes: Examination of the Patient, Discharge Planning, Medication Reconciliation and Communication With Other Providers Discharge Plan Discharge Items Patient Disposition: Home - Self-Care Reason For Visit: STROKE,S/P TPA IN ED Discharge Diagnosis: COMPLEX MIGRAINE Activity: Resume your previous activity Non-emergency contact: Primary Care Provider Call non-emergency contact if: you have any medication questions Follow-up/Referrals: Fox Moran MD [Primary Care Provider] - Diet: Heart Healthy Addtl Attending Provider Instructions: Thankfully, you did not have a stroke. Continue clopidogrel 75 mg daily. There is no indication for anticoagulation at this time follows with Dr. Stokes as an outpatient or Dr. Bañuelos in 2-4 weeks. Pending Studies at Discharge: No Stand-Alone Forms: My [employer], Smoking Cessation Medications and DC Order Prescriptions: Continued atorvastatin 40 mg tablet 40 mg PO QAM Qty: 90 RF: 3 Lantus Solostar U-100 Insulin 100 unit/mL (3 mL) insulin pen 45 unit subcut HS Qty: 45 RF: 3 insulin lispro [Humalog KwikPen Insulin] 100 unit/mL insulin pen 20 - 40 unit SQ .COMPLEX Qty: 15 RF: 3 pantoprazole 40 mg tablet,delayed release (DR/EC) 40 mg PO QAM Qty: 90 RF: 3 memantine 5 mg tablet 5 mg PO BID 60 Days Qty: 120 RF: 0 Nuplazid 34 mg capsule 34 mg PO PM 30 Days Qty: 30 RF: 2 furosemide 40 mg tablet 40 mg PO WK PRN (Reason: edema) Qty: 30 RF: 3 acetaminophen [Tylenol Extra Strength] 500 mg tablet 1,000 mg PO Q8H PRN (Reason: Pain) RF: 0 polyethylene glycol 3350 [Miralax] 17 gram/dose powder 17 gm PO QAM RF: 0 calcium carbonate-vitamin D3 600 mg (1,500 mg)-2,500 unit capsule 1 cap PO QAM RF: 0 cyanocobalamin (vitamin B-12) [Vitamin B-12] 1,000 mcg Tablet 1,000 mcg PO QAM RF: 0 pentoxifylline 400 mg tablet extended release 400 mg PO BID RF: 0 donepezil 10 mg tablet 10 mg PO QAM RF: 0 clopidogrel 75 mg tablet 75 mg PO QAM RF: 0 metoprolol succinate 25 mg tablet extended release 24 hr 25 mg PO QAM RF: 0 No Action venlafaxine 75 mg capsule,extended release 24hr 150 mg PO QAM RF: 0 nitroglycerin [Nitrostat] 0.4 mg Tablet, Sublingual 0.4 mg sublingual UD PRN (Reason: Chest Pain) RF: 0 Discharge Orders: Discharge Order (Routine); Ordered 11/02/20 Ordered By: Sid Ruiz/Other Patient Handouts: Managing Type 2 Diabetes, A1C Admission Data Admit Date/Time: 10/31/20 22:07 Attending Provider: Sid No Admit Provider: Bryan Damian Primary Care Provider: Fox Moran Other Providers: Bryan Damian ; Jl Phan ; Yina Stokes Other Interventions: Discharge Summary Assessment (RN) Last Done: 11/02/20 12:00 Coding Level of Care Code D/C Day Management >30 mins Diagnoses Received intravenous tissue plasminogen activator (tPA) in emergency department Z92.82 Cerebrovascular accident I63.9 CVA mechanism: unspecified Cervicogenic headache R51.9 CAD in [place] I25.10 Stage III chronic kidney disease N18.3 Diabetes mellitus, type 2 E11.42; Z79.4 Diabetes mellitus usp insulin use: with usp use Diabetes mellitus complication status: with neurologic complications Diabetes mellitus complication detail: with polyneuropathy Hyperlipidemia E78.5 Hyperlipidemia type: unspecified Esophageal reflux K21.9 Esophagitis presence: esophagitis presence not specified Cognitive disorder F09 Migraines G43.909 Admitted to intensive care unit Z78.9
== END 2020-11-02 12:49 | disposition home or self-care (01) | DRG 880 ==
LOC: ED 20:24 → 1E 22:07 → SUATTDRO 22:07 → 1E 23:37

== ENCOUNTER 2021-07-21 13:55 | Inpatient (IN) ==
[2021-07-21] MEDS ORDERED: VANCOMYCIN CONSULT ACTIVE PRN (14:10)
[2021-07-21] MEDS ORDERED: VANCOMYCIN HCL 1,750 MG in SODIUM CHLORIDE 0.9% 500 ML IV ONE (14:10)
[2021-07-21] MEDS ORDERED: SODIUM CHLORIDE 0.9% 1000ML 1,000 ML IV SCH (14:15)
--- NOTE | 2021-07-21 14:46 | Emergency Department Note ---
History of Present Illness General Chief complaint: Swelling/Edema to Extremity Stated complaint: L LEG SWOLLEN, FEVER Time Seen by Provider: 07/21/21 14:02 History of Present Illness Provider complaint: Left second toe and foot redness fever Onset (ago): day(s) 2 Location: lower extremity and left Radiation: non-radiation Severity: severe Pain Consistency: + constant Maximum Pain Intensity: 10 Current Pain Intensity: 9 Quality: + stabbing, + aching, + sharp and + dull Relieved By: + immobilization Exacerbated By: + movement Associated symptoms: + fever/chills and + rash; no confusion, no chest pain, no cough, no diaphoresis, no headaches, no loss of appetite, no malaise, no nausea/vomiting, no seizure, no shortness of breath or no weakness 76-year-old diabetic male presents emergency department with left lower ex tremity rash and fever. Patient reports he started noticing that his left second toe was becoming red 2 days ago and has since spread up his foot. He denies any trauma. He denies anything falling on his foot. He is diabetic. He does report having diabetic neuropathy. Patient reports he had a fever today when he went to his PCPs office for the rash who told him to come to the emergency department. No drainage. Home Medications Medication Instructions Recorded Confirmed Type acetaminophen 500 mg tablet 1,000 mg PO Q8H PRN 06/05/19 07/21/21 History (Tylenol Extra Strength) cyanocobalamin (vitamin B-12) 1,000 mcg PO QAM 05/09/20 07/21/21 History 1,000 mcg tablet (Vitamin B-12) pantoprazole 40 mg tablet,delayed 40 mg PO QAM #90 tab 09/20/20 07/21/21 Rx release nitroglycerin 0.4 mg sublingual 0.4 mg SUBLINGUAL UD PRN 11/04/20 07/21/21 History tablet (Nitrostat) donepezil 10 mg tablet 10 mg PO QAM #90 tab 11/29/20 07/21/21 Rx atorvastatin 40 mg tablet 40 mg PO QAM #90 tab 12/01/20 07/21/21 Rx flash glucose sensor (FreeStyle #2 ea 04/08/21 07/21/21 Rx Kirk 14 Day Sensor) insulin glargine 100 unit/mL (3 46 unit SUBCUT QPM ml 06/16/21 07/21/21 History mL) subcutaneous pen (Lantus Solostar U-100 Insulin) metoprolol succinate 25 mg 25 mg PO DAILY 07/01/21 07/21/21 History tablet,extended release 24 hr (Toprol XL) pen needle, diabetic 31 gauge x #400 ea 07/11/21 07/21/21 Rx 3/16" (BD Ultra-Fine Mini Pen Needle) insulin lispro 100 unit/mL 10 - 20 unit SQ QID ml 07/21/21 07/21/21 History subcutaneous pen (Humalog KwikPen (U-100) Insulin) Allergies Allergy/AdvReac Type Severity Reaction Status Date / Time morphine AdvReac Severe "STOPS MY Verified 07/21/21 14:45 HEART" hydromorphone [From Dilaudid] AdvReac Intermediate unresponsiv Verified 07/21/21 14:45 eness trazodone AdvReac Intermediate GI UPSET Verified 07/21/21 14:45 diazepam AdvReac Mild HALLUCINATE Verified 07/21/21 14:45 S propoxyphene AdvReac Mild DRUG Verified 07/21/21 14:45 INTOLERANCE Past Med/Surg History Medical History Acute diastolic (congestive) heart failure (06/2019) Arsenic poisoning Asymptomatic cholelithiasis Atypical chest pain Benign colonic polyp CAD in [place] artery Cellulitis Cognitive disorder Controlled type 2 diabetes mellitus with neurologic complication, 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 Mejia Nephrolithiasis Neurological deficit present Neuropathy Noninfected skin tear of left lower extremity Osteoarthritis Osteopenia determined by x-ray Raynauds phenomenon Stage III chronic kidney disease Stroke HX X 2-11/2004 AND 09/2019-F/U DR NÚÑEZ Thyroid disorder screening Tubular adenoma of colon Venous (peripheral) insufficiency Vitamin D deficiency Wound of left foot Surgical History History of ankle surgery History of arthroscopy of left knee History of cardiac cath x4-5, last 05/19/2019 [facility] NO RECENT STENTS History of carpal tunnel release of both wrists History of colonoscopy History of heart artery stent (1998) History of lithotripsy x2 History of lumbar discectomy x2 History of open reduction and internal fixation (ORIF) procedure left ankle--hardware in place History of right cataract extraction History of tonsillectomy and adenoidectomy S/P CABG (coronary artery bypass graft) 4 [facility] 2018 S/P sinus surgery Status post uvulopalatopharyngoplasty Family History Father , age 74 of an [place] Diabetes Prostate cancer Colorectal cancer Myocardial infarction Brother Prostate cancer Uncle Colorectal cancer Father Myocardial infarction Mother Myocardial infarction Stroke Other Dementia No family history of adverse response to anesthesia Denies family history of Ovarian cancer Breast cancer Social History Smoking Status: Current every day smoker Tobacco Type: Cigarettes Age Quit Using Tobacco: 71; packs per day: 3; Cigarettes Per Day: Camels since 7 years old.; Second Hand Exposure: Yes (SPOUSE USED TO SMOKE/FATHER SMOKED); Hx Alcohol Use: No ( history of alcohol abuse ( 1/5 whiskey per day), quitting age 71) Hx Substance Use: No Preferred Language: Japanese Communication Ability: Effective Visual Impairment: No Limitations Hearing Ability: Normal Emt Required: No Beliefs That Will Affect Care: None marital status: marital status details: 3 children Current Living Situation: Spouse current occupational status: retired 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 How many Children do You have: 2 other: 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); chemical exposure Feels Safe at Home: Yes Childhood Exposure to Second-Hand Smoke: Yes Dental Care, Regularly: Yes Physical Activity Frequency: Daily Seatbelt Use: always Sunscreen Use: No Assistive Devices: None Review of Systems A total of 10 systems reviewed and were otherwise negative Physical Exam Vital Signs Vital Signs - 24 hr 07/21/21 13:57 07/21/21 14:10 07/21/21 14:57 Temperature 37.2 C Temperature Source Temporal Artery Scan Pulse Rate 101 H Pulse Rate [Apical] 97 H Pulse Rhythm Regular Pulse Strength Normal Respiratory Rate 20 14 Respiratory Effort / Characteristics Non-Labored Non-Labored Spontaneous Respiratory Depth Normal Normal Blood Pressure 153/92 H Blood Pressure [Right Arm] 128/83 Blood Pressure Mean 112 Blood Pressure Mean [Right Arm] 98 Blood Pressure Position Sitting Pulse Oximetry 98 95 Oxygen Delivery Method Room Air Room Air Sepsis Recent Fever Within 48 Hours Yes Sepsis New/Unexplained Change in Mental Status No Sepsis Action Taken by Nursing No Action Required Physical Exam GENERAL: He is oriented to person, place, and time. He appears well-developed and well-nourished. He does not appear distressed. HENT: Exam performed. - Head: Normocephalic and atraumatic. - Right Ear: External ear normal. No mastoid tenderness. - Left Ear: External ear normal. No mastoid tenderness. - Mouth/Throat: The oropharynx is clear and moist. No trismus in the jaw. No dental abscesses or uvula swelling. No oropharyngeal exudate or tonsillar abscesses. EYES: Conjunctivae and EOM are normal. Pupils are equal, round, and reactive to light. Right eye exhibits no discharge. Left eye exhibits no discharge. No scleral icterus. NECK: Normal range of motion. Neck supple. No JVD present. No spinous process tenderness present. No carotid bruit present. No rigidity. No tracheal deviation and normal range of motion present. No Brudzinski's sign and no Kernig's sign noted. CV: Normal rate, regular rhythm, normal heart sounds and intact distal pulses. There is no peripheral edema. Palpable radial pulses bue. PULM/CHEST: Effort normal and breath sounds normal. No respiratory distress. No stridor. He has no wheezes. He has no rales. - Chest Wall: He exhibits no tenderness. ABD: The abdomen is soft. Bowel sounds are normal. He has no distension. No mass is present. There is no tenderness. There is no rebound, no guarding, no Cantu's sign and no tenderness at McBurney's point. Rovsig negative. MUSC/SKEL: Normal range of motion. LYMPH: No cervical adenopathy. NEURO: He is alert and oriented to person, place, and time. He has normal strength. No cranial nerve deficit or sensory deficit. Coordination and gait normal. GCS eye subscore is 4. GCS verbal subscore is 5. GCS motor subscore is 6. Cerebellar tests wnl. SKIN: Wound over the second toe on the left foot. Swelling, erythema and warmth over the left second toe and left dorsal foot. PSYCH: He has a normal mood and affect. Behavior is normal. Judgment and thought content normal. Course Course 1402: The patient was evaluated in room C1. A complete history and physical exam was performed Cardiac monitoring: An order was placed for continuous cardiac monitoring. The monitor shows a rate of 100 with sinus rhythm 1544: Vital signs stable. Labs within normal limits with the exception of sodium 131 and glucose 193 as well as lactic acid 2.1. Imaging does show osteomyelitis. Patient treated with vancomycin. [facility] will be notified. Administered Medications Sodium Chloride (Nss 1000ml) 1,000 mls @ 125 mls/hr IV .Q8H NIKOLAI Stop: 08/20/21 14:14 Last Admin: 07/21/21 15:01 Dose: 125 mls/hr Documented by: [id number] Vancomycin HCl 1,750 mg/ (Sodium Chloride) 535 mls @ 200 mls/hr IV NOW ONE Stop: 07/21/21 16:50 Last Admin: 07/21/21 15:01 Dose: 200 mls/hr Documented by: [id number] Medical Decision Making Laboratory Data Result diagrams: 07/21/21 14:40 07/21/21 14:40 Lab Results 07/21/21 07/21/21 07/21/21 Range/Units 13:50 14:40 14:40 WBC 10.17 (4.8-10.8) K/uL RBC 4.73 (4.7-6.1) M/uL Hgb 14.2 (14.0-18.0) g/dL Hct 42.1 (42-52) % MCV 89.0 (80-100) fL MCH 30.0 (25-34) pg MCHC 33.7 (32-36) g/dL RDW Std Deviation 46.3 (36.4-46.3) fL RDW Coeff of Gissel 14.2 (11.5-14.5) % Plt Count 187 (130-400) K/uL MPV 10.9 H (7.4-10.4) fL Immature Gran % (Auto) 0.3 % Neut % (Auto) 86.2 % Lymph % (Auto) 6.8 % Lake % (Auto) 6.5 % Eos % (Auto) 0.1 % Baso % (Auto) 0.1 % Neut # (Auto) 8.77 H (1.4-6.5) K/uL Lymph # (Auto) 0.69 L (1.2-3.4) K/uL Lake # (Auto) 0.66 H (0.11-0.59) K/uL Eos # (Auto) 0.01 (0-0.5) K/uL Baso # (Auto) 0.01 (0-0.2) K/uL Immature Gran # (Auto) 0.03 H (0.00-0.02) K/uL Sodium 131 L (136-145) mmol/L Potassium 4.7 (3.5-5.1) mmol/L Chloride 97 L (98-107) mmol/L Carbon Dioxide 25 (21-32) mmol/L Anion Gap 9 (3-11) BUN 21 (6-23) mg/dl Creatinine 1.26 (0.6-1.4) mg/dl Est Cr Clr Drug Dosing 55.8 ml/min Est GFR ( Amer) 64.2 ml/min Est GFR (Non-Af Amer) 55.4 ml/min BUN/Creatinine Ratio 16.7 (10-20) Glucose 193 H (70-99(Fasting)) mg/dl Lactate 2.1 H* (0.4-2.0) mmol/L Calcium 9.0 (8.5-10.1) mg/dl SARS-CoV-2, RNA, NAAT (NEGATIVE) 07/21/21 Range/Units Unknown WBC (4.8-10.8) K/uL RBC (4.7-6.1) M/uL Hgb (14.0-18.0) g/dL Hct (42-52) % MCV (80-100) fL MCH (25-34) pg MCHC (32-36) g/dL RDW Std Deviation (36.4-46.3) fL RDW Coeff of Gissel (11.5-14.5) % Plt Count (130-400) K/uL MPV (7.4-10.4) fL Immature Gran % (Auto) % Neut % (Auto) % Lymph % (Auto) % Lake % (Auto) % Eos % (Auto) % Baso % (Auto) % Neut # (Auto) (1.4-6.5) K/uL Lymph # (Auto) (1.2-3.4) K/uL Lake # (Auto) (0.11-0.59) K/uL Eos # (Auto) (0-0.5) K/uL Baso # (Auto) (0-0.2) K/uL Immature Gran # (Auto) (0.00-0.02) K/uL Sodium (136-145) mmol/L Potassium (3.5-5.1) mmol/L Chloride (98-107) mmol/L Carbon Dioxide (21-32) mmol/L Anion Gap (3-11) BUN (6-23) mg/dl Creatinine (0.6-1.4) mg/dl Est Cr Clr Drug Dosing ml/min Est GFR ( Amer) ml/min Est GFR (Non-Af Amer) ml/min BUN/Creatinine Ratio (10-20) Glucose (70-99(Fasting)) mg/dl Lactate (0.4-2.0) mmol/L Calcium (8.5-10.1) mg/dl SARS-CoV-2, RNA, NAAT NEGATIVE (NEGATIVE) Imaging Data Radiologist's Impression: Foot X-Ray 07/21/21 14:10 XR foot LT min 3V routine CLINICAL HISTORY: L 2nd toe wound and cellulitis COMPARISON STUDY: None. FINDINGS: Soft tissue swelling within the left second toe. Destructive change noted at the tuft of the distal phalanx of the left second toe. This is consistent with an osteomyelitis. Dorsal soft tissue swelling within the left foot. No acute fracture or dislocation. Prior internal fixation of a bimalleolar left ankle fracture. IMPRESSION: Destructive change noted at the tuft of the left second toe distal phalanx consistent with an osteomyelitis. ACT 112: Negative or not required by law. Electronically signed by: Cristhian Yo M.D. 07/21/2021 3:27 PM MDM Narrative Vital signs stable. Labs within normal limits with the exception of sodium 131 and glucose 193 as well as lactic acid 2.1. Imaging does show osteomyelitis. Patient treated with vancomycin. [facility] Cunningham will be notified. Impression & Plan Osteomyelitis Discharge Plan Visit Data Chief Complaint: Swelling/Edema to Extremity Stated Complaint: L LEG SWOLLEN, FEVER ED Provider: Carlos Villeda Discharge Problem: Osteomyelitis Patient Disposition: Admitted As Inpatient Forms Stand Alone Forms: My [facility] Prescriptions Prescriptions: No Action pantoprazole 40 mg tablet,delayed release (DR/EC) 40 mg PO QAM Qty: 90 RF: 3 donepezil 10 mg tablet 10 mg PO QAM Qty: 90 RF: 3 atorvastatin 40 mg tablet 40 mg PO QAM Qty: 90 RF: 3 (DME) FreeStyle Kirk 14 Day Sensor Kit See Rx Instructions .ROUTE .MEDSUPPLY Qty: 2 RF: 5 (DME) pen needle, diabetic [BD Ultra-Fine Mini Pen Needle] 31 gauge x 3/16" needle See Rx Instructions .Route Qty: 400 RF: 3 insulin lispro [Humalog KwikPen Insulin] 100 unit/mL insulin pen 10 - 20 unit SQ QID RF: 0 Lantus Solostar U-100 Insulin 100 unit/mL (3 mL) insulin pen 46 unit subcut QPM RF: 0 metoprolol succinate [Toprol XL] 25 mg tablet extended release 24 hr 25 mg PO DAILY RF: 0 acetaminophen [Tylenol Extra Strength] 500 mg tablet 1,000 mg PO Q8H PRN (Reason: Pain) RF: 0 cyanocobalamin (vitamin B-12) [Vitamin B-12] 1,000 mcg Tablet 1,000 mcg PO QAM RF: 0 nitroglycerin [Nitrostat] 0.4 mg Tablet, Sublingual 0.4 mg sublingual UD PRN (Reason: Chest Pain) RF: 0 Referrals Referrals: Pro,Fox Frey MD [Primary Care Provider] -
[2021-07-21 15:01] LABS: Basophils # (auto) 0.01 K/uL (0-0.2); Basophils % (auto) 0.1 %; Eosinophils # (auto) 0.01 K/uL (0-0.5); Eosinophils % (auto) 0.1 %; Hematocrit (blood only) 42.1 % (42-52); Hemoglobin 14.2 g/dL (14.0-18.0); Immature Granulocytes # (auto) 0.03 K/uL (0.00-0.02); Immature Granulocytes % (auto) 0.3 %; Lymphocytes # (auto) 0.69 K/uL (1.2-3.4); Lymphocytes % (auto) 6.8 %; Mean Corpuscular Hgb Conc 33.7 g/dL (32-36); Mean Platelet Volume 10.9 fL (7.4-10.4); Monocytes # (auto) 0.66 K/uL (0.11-0.59); Monocytes % (auto) 6.5 %; Neutrophils # (auto) 8.77 K/uL (1.4-6.5); Neutrophils % (auto) 86.2 %; Platelet Count 187 K/uL (130-400); RDW Coefficient of Variation 14.2 % (11.5-14.5); RDW Standard Deviation 46.3 fL (36.4-46.3); Red Blood Count 4.73 M/uL (4.7-6.1); White Blood Count 10.17 K/uL (4.8-10.8)
[2021-07-21 15:19] LABS: BUN Creatinine Ratio 16.7 (10-20); Creatinine Clr Calc Pharmacy 55.8 ml/min; Est GFR (African American) 64.2 ml/min; Est GFR (Non-African American) 55.4 ml/min; Potassium 4.7 mmol/L (3.5-5.1)
--- NOTE | 2021-07-21 15:29 | XRay Report ---
XR foot LT min 3V routine CLINICAL HISTORY: L 2nd toe wound and cellulitis COMPARISON STUDY: None. FINDINGS: Soft tissue swelling within the left second toe. Destructive change noted at the tuft of th e distal phalanx of the left second toe. This is consistent with an osteomyelitis. Dorsal soft tissue swelling within the left foot. No acute fracture or dislocation. Prior internal fixation of a bimall eolar left ankle fracture. IMPRESSION: Destructive change noted at the tuft of the left second toe distal phalanx consistent wi th an osteomyelitis. ACT 112: Negative or not required by law. Electronically signed by: Cristhian Yo M.D. 07/21/2021 3:27 PM
--- NOTE | 2021-07-21 16:10 | History & Physical Report ---
Date of Service July 21, 2021 Assessment & Plan (1) Osteomyelitis: Plan: Continue Vancomycin and cefepime Follow up blood cultures Consult ortho - discussed with Dr Boyd (2) Cellulitis: Plan: As above (3) Diabetes mellitus, type 2: Plan: HBA1C 9.1 in March, repeat with AM labs Home does of lantus 46 units QPM, will switch to 25 units BID here and monitor BSG ACHS Novolog: Goal BSG Range: Low 110 mg/dL, High 140 mg/dL Correction Factor: 15 mg/dL/unit Carbohydrate ratio = 5 g/unit BSGs ACHS if eating, q6h if npo (4) Hyperlipidemia: Plan: Continue atorvastatin 40mg PO daily (5) Unspecified psychosis not due to a substance or known physiological condition: Plan: Hospitalized at [facility] from May 06 - Jun 03 with diagnosis of schizoaffective disorder. Does not take any of his medications per last PCP note (?started on venlafaxine/Haldol/Restoril/capsensin/Seroquel) although no med list on the discharge summary from this admission. (6) CAD in eek artery: Plan: s/p CABG x3 -KAUR-LAD, SVG-OM, SVG-PDA 2018 at [facility] Continue clopidogrel, metoprolol and atorvastatin Plan: VTE Prophylaxis - Lovenox 40mg SQ daily Diet - T2DM Disposition - admit to med/surg Admission and Anticipated Discharge Date Admission Date: July 21, 2021 History of Present Illness Chief Complaint: Left lower leg infection Primary Care Provider: Fox Moran MD Tian Blanchard is a 76 year old male who presents to the ER with left leg infection. He reports initial injury 2 days ago he was walking around a lot. He has diabetes with reduced sensation in his foot therefore only noticed an open area after he took his shoes off. He soaked it in Epsom salts and vinegar but has not taken any antibiotics for this. Today his leg became painful as erythema rapidly spread up his leg and he started having fever and chills. He saw his PCP today who advised he comes to the ER for intravenous antibiotics. He reports taking Eliquis to me although [facility] and this did not come up on the [facility], I see no medical condition he requires this for and it is not in prior cardiology notes. He denies any prior history of DVTs or PEs. In the ER; XR confirmed osteomyelitis of his 2nd left toe and he was given vancomycin 1750mg IV. He was referred to medicine for admission and ongoing management of osteomyelitis. Allergies Allergy/AdvReac Type Severity Reaction Status Date / Time morphine AdvReac Severe "STOPS MY Verified 07/21/21 14:45 HEART" hydromorphone [From Dilaudid] AdvReac Intermediate unresponsiv Verified 07/21/21 14:45 eness trazodone AdvReac Intermediate GI UPSET Verified 07/21/21 14:45 diazepam AdvReac Mild HALLUCINATE Verified 07/21/21 14:45 S propoxyphene AdvReac Mild DRUG Verified 07/21/21 14:45 INTOLERANCE Home Medications Medication Instructions Recorded Confirmed Type acetaminophen 500 mg tablet 1,000 mg PO Q8H PRN 06/05/19 07/21/21 History (Tylenol Extra Strength) cyanocobalamin (vitamin B-12) 1,000 mcg PO QAM 05/09/20 07/21/21 History 1,000 mcg tablet (Vitamin B-12) pantoprazole 40 mg tablet,delayed 40 mg PO QAM #90 tab 09/20/20 07/21/21 Rx release nitroglycerin 0.4 mg sublingual 0.4 mg SUBLINGUAL UD PRN 11/04/20 07/21/21 History tablet (Nitrostat) donepezil 10 mg tablet 10 mg PO QAM #90 tab 11/29/20 07/21/21 Rx atorvastatin 40 mg tablet 40 mg PO QAM #90 tab 12/01/20 07/21/21 Rx flash glucose sensor (FreeStyle #2 ea 04/08/21 07/21/21 Rx Kirk 14 Day Sensor) insulin glargine 100 unit/mL (3 46 unit SUBCUT QPM ml 06/16/21 07/21/21 History mL) subcutaneous pen (Lantus Solostar U-100 Insulin) metoprolol succinate 25 mg 25 mg PO DAILY 07/01/21 07/21/21 History tablet,extended release 24 hr (Toprol XL) pen needle, diabetic 31 gauge x #400 ea 07/11/21 07/21/21 Rx 3/16" (BD Ultra-Fine Mini Pen Needle) insulin lispro 100 unit/mL 10 - 20 unit SQ QID ml 07/21/21 07/21/21 History subcutaneous pen (Humalog KwikPen (U-100) Insulin) Past Med/Surg History Medical History Acute diastolic (congestive) heart failure (06/2019) Arsenic poisoning Asymptomatic cholelithiasis Atypical chest pain Benign colonic polyp CAD in eek artery Cellulitis Cognitive disorder Controlled type 2 diabetes mellitus with neurologic complication, 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 Mejia Nephrolithiasis Neurological deficit present Neuropathy Noninfected skin tear of left lower extremity Osteoarthritis Osteopenia determined by x-ray Raynauds phenomenon Stage III chronic kidney disease Stroke HX X 2-11/2004 AND 09/2019-F/U DR NÚÑEZ Thyroid disorder screening Tubular adenoma of colon Venous (peripheral) insufficiency Vitamin D deficiency Wound of left foot Surgical History History of ankle surgery History of arthroscopy of left knee History of cardiac cath x4-5, last 05/19/2019 [facility] [place] NO RECENT STENTS History of carpal tunnel release of both wrists History of colonoscopy History of heart artery stent (1998) History of lithotripsy x2 History of lumbar discectomy x2 History of open reduction and internal fixation (ORIF) procedure left ankle--hardware in place History of right cataract extraction History of tonsillectomy and adenoidectomy S/P CABG (coronary artery bypass graft) 4 [facility] 2018 S/P sinus surgery Status post uvulopalatopharyngoplasty Family History Father , age 74 of an IA Diabetes Prostate cancer Colorectal cancer Myocardial infarction Brother Prostate cancer Uncle Colorectal cancer Father Myocardial infarction Mother Myocardial infarction Stroke Other Dementia No family history of adverse response to anesthesia Denies family history of Ovarian cancer Breast cancer Social History Smoking Status: Current some day smoker Tobacco Type: Cigarettes Age Quit Using Tobacco: 71; packs per day: 3; Cigarettes Per Day: 3; Second Hand Exposure: No; Do You Dip or Chew Tobacco: Yes; Tobacco Cessation Education Requested by Patient: No Hx Alcohol Use: No Hx Substance Use: No Preferred Language: Persian Communication Ability: Effective Visual Impairment: No Limitations Hearing Ability: Normal Nurses Assistant Required: No Beliefs That Will Affect Care: None marital status: marital status details: 3 children Current Living Situation: Alone current occupational status: retired 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 Review of Systems Review of Systems: All systems reviewed & are unremarkable except as noted in HPI & below Physical Exam Constitutional: WD/WN, vitals as above Eyes: + anicteric sclerae; normal pupil size ENMT: external ear and nose normal, oropharynx normal Neck: trachea midline, no thyromegaly Respiratory: normal respiratory effort, lungs clear to auscultation Cardiovascular: Rate/Rhythm: regular rate and regular rhythm Heart Sounds: no murmur Extremities: normal capillary refill, + calf tenderness (left) and + pedal edema (right 1+, left 2+) Gastrointestinal (Abdomen): normal bowel sounds, soft, nontender, no hepatosplenomegaly Musculoskeletal: no cyanosis or clubbing, extremities motor strength 5/5 Skin: + erythema Erythema, warmth and swelling from right mid souza to 2nd toe. Eschar over distal 2nd toe. Neurologic: moves all extremities and awake; not confused Motor/Sensory: + sensory deficit (ankle distally b/l equal) Psychiatric: A+Ox3, euthymic affect Results & Data Results & Data ([facility]) Vital Signs (Past 12 Hours) Vital Signs Temp Pulse Pulse Resp BP BP Pulse Ox 07/21/21 14:57 97 H 14 128/83 95 07/21/21 13:57 37.2 C 101 H 20 153/92 H 98 Diagnostic Findings XR foot LT min 3V routine CLINICAL HISTORY: L 2nd toe wound and cellulitis COMPARISON STUDY: None. FINDINGS: Soft tissue swelling within the left second toe. Destructive change noted at the tuft of the distal phalanx of the left second toe. This is consistent with an osteomyelitis. Dorsal soft tissue swelling within the left foot. No acute fracture or dislocation. Prior internal fixation of a bimalleolar left ankle fracture. IMPRESSION: Destructive change noted at the tuft of the left second toe distal phalanx consistent with an osteomyelitis. Medications Administered ER Medications Given: NSS @ 125ml/hr Vancomycin 1750mg IV Code Status & VTE Plan Code Status DNR/DNI per patient wishes VTE Prophylaxis Plan VTE Prophylaxis will be ordered: Yes PG Care Time/CCT Total # of Minutes Spent Total Time Spent with Patient: Total time spent is greater than 50% in coordination of care (as documented) at patient's floor/unit and/or counseling patient: Coding Level of Care Code 73096 Initial Inpt Care Lvl 2 Diagnoses Osteomyelitis M86.9 Laterality: unspecified laterality Osteomyelitis location: foot Osteomyelitis type: unspecified type Cellulitis L03.90 Diabetes mellitus, type 2 E11.42; Z79.4 Diabetes mellitus complication detail: with polyneuropathy Diabetes mellitus complication status: with neurologic complications Diabetes mellitus group home insulin use: with nutritional services director use Hyperlipidemia E78.5 Hyperlipidemia type: unspecified Unspecified psychosis not due to a substance or known physiological condition F29 CAD in eek artery I25.10 (1) Diabetes mellitus, type 2 Diabetes mellitus complication detail: with polyneuropathy Diabetes mellitus complication status: with neurologic complications Diabetes mellitus group home insulin use: with group home use Qualified Code(s): E11.42 - Type 2 diabetes mellitus with diabetic polyneuropathy; Z79.4 - alf (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 (2) Hyperlipidemia Hyperlipidemia type: unspecified Qualified Code(s): E78.5 - Hyperlipidemia, unspecified (3) Osteomyelitis Laterality: unspecified laterality Osteomyelitis location: foot Osteomyelitis type: unspecified type Qualified Code(s): M86.9 - Osteomyelitis, unspecified
[2021-07-21] MEDS ORDERED: CONSULT PHARMACY STA (17:24)
[2021-07-21] MEDS ORDERED: CEFEPIME 2,000 MG/20 ML VIAL IV STA (17:26)
--- NOTE | 2021-07-21 18:34 | Consultation Report ---
DATE OF SERVICE: 07/21/2021 I was consulted to see Tian about a problem involving his left foot. On Sunday, he noticed pain an d swelling of his left foot after work. He noticed some bleeding from his second toe. He reports no injury or prior problems with the left second toe. He denies a history of prior wounds. 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 This problem developed Sunday after work. Tod naye, he notes that he has had some fever and chills. He has come to the Emergency Room. He is being evaluated and admitted by medicine. His past medical history is noted and reviewed on the chart. Importantly for this problem is, he has type 2 diabetes, on insulin. He has had some mental health issues. [facility] [place] [facility]. Kidney disease, CVA, neuropathy, coronary artery dis ease. His medications are noted and reviewed. Not listed are Plavix and Eliquis. I asked him if he was ta maria teresa blood thinners and he said that he was taking Eliquis and then I mentioned Plavix, and he said t hat he was taking that as well. He reports that Dr. Mejia had told him to stop taking that medicin e perhaps back in March, but he continued to take it because he had the medicine leftover. He stat es that he last took his Eliquis this morning. He was told to stop it because he was having stomach hemorrhaging. HE REPORTS ALLERGIES TO MORPHINE, HYDROMORPHONE, TRAZODONE, DIAZEPAM AND PROPOXYPHENE. He has had multiple surgeries on his left ankle in [place] secondary to what sounds like an open fra cture status post fall. His COVID test is negative. His PRP is noted. His white count is normal, hemoglobin 14, hematocrit 42, platelets are 187. He has had a temp of 38.2, but is now afebrile. On exam, there is cellulitis and swelling involving the left foot and leg. There is 1-2+ pretibial e rodriguez. The leg area and foot is tender to touch. The second toe is markedly swollen and there is a c allosity/eschar at the tip of the toe. He has a nonpalpable dorsalis pedis pulse, but I do palpate a 1+ posterior tibial pulse. There are no signs of ischemia in the foot. No areas of necrosis. Bianca llary refill in all of his digits is less than 2 seconds. He can wiggle his toes and flex and extend the ankle, invert and emily all with normal strength. X-rays of the foot done previously, interpretation noted. He has destructive changes of the distal p halanx of the second toe on the left foot consistent with osteomyelitis. IMPRESSION: Left foot second toe osteomyelitis secondary to diabetes. PLAN: I debrided the eschar with his permission, which revealed some underlying purulence. There is exposed necrotic bone. A dressing is applied, not adherent type. Given the findings, amputation of a portion of the second toe is recommended. Treating with wound care, antibiotics is a possibility, but unlikely to heal this problem and the infection is likely to persist or worsen. Given the surro unding cellulitis and swelling as well as his use of the blood thinner, I think waiting several days is prudent. This will allow his anticoagulation to reverse. It will also allow time for swelling an d cellulitis to resolve. We talked about risks, benefits, rehab, and recovery. An informed consent was obtained. We will plan on surgery Sunday or Sunday depending on OR availability. Elevate the foot. He will be placed on IV antibiotics per medicine. We will continue to monitor. Job ID: [id number]
[2021-07-21] MEDS ORDERED: GLUCAGON FOR INJ 1 MG VIAL SQ PRN (21:37)
[2021-07-21] MEDS ORDERED: NITROGLYCERIN SL 0.4 MG/TAB TAB SL PRN (21:37)
[2021-07-21] MEDS ORDERED: DEXTROSE 50% 50 ML SYRINGE IV PRN (21:37)
[2021-07-21] MEDS ORDERED: CARBOHYDRATES FOR HYPOGLYCEMIA PO PRN (21:37)
[2021-07-21] MEDS ORDERED: GLUCOSE 40% GEL 15 GM TUBE PO PRN (21:37)
[2021-07-21] MEDS ORDERED: GLUCOSE 10 TABS/TUBE PO PRN (21:37)
--- NOTE | 2021-07-21 22:36 | Pharmacy Report ---
Pharmacy Abx Initial Consult - Date of Service July 21, 2021 - Pharmacy Dosing Scope Date of Consult: 07/21/21 Consultation requested by: Dr. Cunningham Pharmacy is consulted to initiate Vancomycin IV dosing therapy, order appropriate labs and adjust drug dose/frequency. - Subjective The patient is a 76 year old M admitted on 07/21/21 19:13. - Objective Height: 5 ft 9 in Weight: 88.4 kg Vital Signs (Past 12hrs): Vital Signs Temp Pulse Pulse Pulse Resp BP BP 07/21/21 20:25 36.7 C 81 16 130/69 07/21/21 19:58 87 18 131/82 07/21/21 18:00 93 H 16 131/71 07/21/21 16:00 91 H 18 181/99 H 07/21/21 14:57 97 H 14 128/83 07/21/21 13:57 37.2 C 101 H 20 153/92 H Pulse Ox 07/21/21 20:25 97 07/21/21 19:58 97 07/21/21 18:00 93 07/21/21 16:00 100 07/21/21 14:57 95 07/21/21 13:57 98 Lab Results (24hrs): Laboratory Tests (24 Hours) 07/21/21 07/21/21 14:40 14:40 WBC 10.17 Neut # (Auto) 8.77 H Creatinine 1.26 Est Cr Clr Drug Dosing 55.8 Micro Results: 07/21/21 14:50 Aerobic Blood Culture - Pending Blood Anaerobic Blood Culture - Pending 07/21/21 14:40 Aerobic Blood Culture - Pending Blood Anaerobic Blood Culture - Pending - Assessment & Plan Assessment 76 year old M ordered Vancomycin + Cefepime for osteomyelitis. Plan Vancomycin IV * Loading dose: 1750mg (20 mg/kg) * Maintenance dose: 1000mg IV (11 mg/kg) every 18 hours * Goal trough level for osteo : 15 to 20 mcg/mL * Trough level ordered for 07/23/21 @ 2000. * AUC/GAUDENCIO is the preferred PK/PD target for vancomycin * AUC guided dosing is effective and associated with decreased risk of nephrotoxicity compared to traditional trough targets * The above dose is predicted to achieve target AUC/GAUDENCIO of 400-600 mg/L.hr and may be associated with a 11% risk of nephrotoxicity Pharmacy will continue to follow and will adjust dose/frequency as necessary. Thank you.
[2021-07-21] MEDS: INSULIN ASPART PER UNIT SC SCH (23:21)
[2021-07-21] MEDS: INSULIN GLARGINE SOLOSTAR 100 UNITS/ML 3 ML PEN SC SCH (23:22)
[2021-07-22 07:28] LABS: Basophils # (auto) 0.01 K/uL (0-0.2); Basophils % (auto) 0.2 %; Eosinophils # (auto) 0.09 K/uL (0-0.5); Eosinophils % (auto) 1.6 %; Hematocrit (blood only) 40.8 % (42-52); Hemoglobin 14.2 g/dL (14.0-18.0); Immature Granulocytes # (auto) 0.01 K/uL (0.00-0.02); Immature Granulocytes % (auto) 0.2 %; Lymphocytes # (auto) 0.72 K/uL (1.2-3.4); Lymphocytes % (auto) 12.6 %; Mean Corpuscular Hemoglobin 31.6 pg (25-34); Mean Corpuscular Hgb Conc 34.8 g/dL (32-36); Mean Corpuscular Volume 90.9 fL (80-100); Mean Platelet Volume 10.6 fL (7.4-10.4); Monocytes # (auto) 0.56 K/uL (0.11-0.59); Monocytes % (auto) 9.8 %; Neutrophils # (auto) 4.31 K/uL (1.4-6.5); Neutrophils % (auto) 75.6 %; Platelet Count 169 K/uL (130-400); RDW Coefficient of Variation 14.4 % (11.5-14.5); RDW Standard Deviation 48.3 fL (36.4-46.3); Red Blood Count 4.49 M/uL (4.7-6.1)
[2021-07-22] MEDS ORDERED: VANCOMYCIN HCL 1,000 MG in SODIUM CHLORIDE 0.9% 250 ML IV SCH (08:00)
[2021-07-22 08:08] LABS: BUN Creatinine Ratio 13.6 (10-20); C Reactive Protein 12.3 mg/dl (0-0.5); Calcium 8.6 mg/dl (8.5-10.1); Creatinine Clr Calc Pharmacy 59.5 ml/min; Est GFR (African American) 69.5 ml/min; Potassium 4.9 mmol/L (3.5-5.1)
[2021-07-22] MEDS ORDERED: oxyCODONE HCL IR 5 MG TAB (IMMEDIATE RELEASE) PO STA (08:34)
[2021-07-22] MEDS: ATORVASTATIN 40 MG TAB PO SCH (09:01)
[2021-07-22] MEDS: DONEPEZIL HCL 10 MG TAB PO SCH (09:01)
[2021-07-22] MEDS: PANTOprazole 40 MG TAB PO SCH (09:01)
[2021-07-22] MEDS: METOPROLOL SUCC 25MG EXT REL TAB PO SCH (09:01)
[2021-07-22] MEDS: CYANOCOBALAMIN (B-12) 500 MCG TABLET PO SCH (09:01)
[2021-07-22] MEDS: INSULIN GLARGINE SOLOSTAR 100 UNITS/ML 3 ML PEN SC SCH ×2 (09:02→20:51)
[2021-07-22] MEDS: INSULIN ASPART PER UNIT SC SCH ×4 (09:02→20:50)
[2021-07-22 09:11] LABS: Estimated Average Glucose 177 mg/dl; Hemoglobin A1C 7.8 % (4.5-5.6)
--- NOTE | 2021-07-22 10:02 | Hospitalist Progress Note ---
Date of Service July 22, 2021 Assessment & Plan Admission and Anticipated Discharge Date Admission Date: July 21, 2021 Results & Data Results & Data ([facility]) Vital Signs (Past 12 Hours) Vital Signs Temp Pulse Resp BP Pulse Ox 07/22/21 07:30 37.1 C 76 18 128/68 98
[2021-07-22] MEDS: CEFEPIME 2,000 MG in SYRINGE 0 ML IV SCH ×2 (10:43→22:42)
--- NOTE | 2021-07-22 12:47 | Medical Student Progress Note ---
Date of Service July 22, 2021 Assessment & Plan (1) Osteomyelitis: Plan: 76 year old gentleman with history of T2DM admitted for cellulitis and osteomyelitis of his left second toe. 1. Osteomyelitis and cellulitis: - VSS, patient denies infectious symptoms - WBC downtrending, 5.7 - Continue vancomycin and cefepime - Arterial duplex ordered to assess circulation prior to surgery - ortho consulted, Dr. Boyd recommends amputation if infection does not resolve - foot XR consistent with osteomyelitis - ESR 45, CRP 12.3 - Blood cultures pending 2. Type 2 Diabetes - HBA1C 7.8 - Home does of lantus 46 units QPM, will switch to 25 units BID here and monitor BSG ACHS - Novolog: Goal BSG Range: Low 110 mg/dL, High 140 mg/dL Correction Factor: 15 mg/dL/unit Carbohydrate ratio = 5 g/unit BSGs ACHS if eating, q6h if npo 3. Coronary artery disease -s/p CABG x3 -KAUR-LAD, SVG-OM, SVG-PDA 2019 at [facility] - Continue clopidogrel, metoprolol and atorvastatin 4. Hyperlipidemia: - Continue atorvastatin 40mg PO daily 5. History of cognitive impairment: - followed by neuro - continue home donepezil 6. Psychiatric history: - complicated psychiatric history with several diagnoses in chart, including schizophrenia, schizoaffective disorder, and bipolar disorder - Hospitalized at [facility] from in fall of 2020 - does not currently follow with a psychiatrist or take any psych medications FEN/GI: T2DM Code: DNR/DNI DVT Prophylaxis: Lovenox 40mg SQ daily Disposition: med/surg Laterality: unspecified laterality Osteomyelitis location: foot Osteomyelitis type: unspecified type Qualified Code(s): M86.9 - Osteomyelitis, unspecified (2) Cellulitis: (3) Hypertension: Hypertension type: essential hypertension Qualified Code(s): I10 - Essential (primary) hypertension (4) S/P CABG (coronary artery bypass graft): Admission and Anticipated Discharge Date Admission Date: July 21, 2021 Supervising Attestation I personally examined the patient and verified all schultz points of history and exam, discussed case, and agree with decision making with Roberto Sarmad MS4 Foot pain under reasonable control. Understands the plan. No complaints at this timedoes need pain meds soon, but notes it helped for almost all day with his dose this morning. Vitals noted, in general he is awake and alert pleasant no distress. HEENT normocephalic atraumatic mucous membranes moist. Breathing unlabored no accessory muscle use good effort. Skin shows no rashes no pallor or icterus. Foot is dressed. Osteomyelitisantibiotics, anticipate surgery. Otherwise as above Subjective Reviewed history with patient: confirmed that he first noticed the wound 2 days ago, soaked in Epsom salts and vinegar Results & Data ([facility]) Vital Signs (Past 12 Hours) Vital Signs Temp Pulse Resp BP Pulse Ox 07/22/21 07:30 37.1 C 76 18 128/68 98
--- NOTE | 2021-07-22 14:38 | Ultrasound Report ---
ULTRASOUND LEFT LOWER EXTREMITY ARTERIAL CLINICAL HISTORY: Osteomyelitis of the left foot. COMPARISON STUDY: Lower extremity arterial ultrasound dated 02/01/2007. TECHNIQUE: Real-time grayscale and color Doppler sonography of the arteries of the left lower extremi ty is performed from the inguinal crease to the foot. Ankle-brachial indices could not be assessed. FINDINGS: Atherosclerotic plaque is seen throughout the arteries of the left lower extremity. There a re triphasic waveforms in the left common femoral artery with velocities measuring up to 83 cm/s. The left profundus femoris artery is patent with velocities measuring up to 41 cm/s. Triphasic waveforms are seen throughout the left superficial femoral and popliteal arteries. Velocities in the superfici al femoral artery measure up to 131 cm/s, and velocities in the popliteal artery measure up to 96 cm/ s. There is three-vessel runoff to the foot. There are elevated velocities within the left anterior t ibial artery measure up to 204 cm/s. Velocities in the peroneal artery measure up to 103 cm/s, and ve locities in the posterior tibial artery measure up to 165 cm/s. The dorsalis pedis artery is patent w ith velocities measuring up to 43 cm/s. IMPRESSION: 1. No focal vessel occlusion is seen throughout the left lower extremity arteries. 2. There are mildly elevated velocities within the calf arteries as above suggesting at least mild st enosis. Dictated: 07/22/2021 2:12 PM Transcribed: 07/22/2021 2:28 PM Danay [id number] [email or web address] Electronically signed by: Jonny Zambrano M.D. 07/22/2021 2:37 PM
--- NOTE | 2021-07-22 14:53 | Orthopedic Progress Note ---
Date of Service July 22, 2021 Assessment & Plan (1) Diabetic ulcer of toe: Plan: diabetic ulcer left 2nd toe - open wound Continue dressings to toe, change as needed. Elevate left lower extremity above heart to relieve pain/swelling Continue IV antibiotics as ordered. Will plan for amputation left 2nd toe on Sunday07/26/[address] Boyd. Patient aware, understands and agrees with plan. Consent completed and on chart. Will make NPO p MN Sunday night. May be out of bed, weight bear as tolerated left foot, avoid pressure on left 2nd toe. Dr. Boyd present for today's visit today. Admission and Anticipated Discharge Date Admission Date: July 21, 2021 Subjective Patient resting in bed, no complaints of pain at rest left foot. Elevating left foot on a couple pillows, tolerating IV antibiotics. No worsening symptoms since last night. Physical Exam Musculoskeletal: Left 2nd toe exam unchanged. Improved swelling and erythema left lower extremity (ankle and foot). No palpable dorsalis pedis pulses, trace posterior tibial pulse. Able to wiggle toes, toes nontender. All over toes bening. Open would left 2nd toe, no active bleeding or drainage. New dressing applied to left 2nd toe. Results & Data ([facility]) Vital Signs (Past 12 Hours) Vital Signs Temp Pulse Resp BP Pulse Ox 07/22/21 07:30 37.1 C 76 18 128/68 98 Laboratory Results 07/22/21 07/22/21 07/22/21 Range/Units 12:07 08:01 07:04 WBC (4.8-10.8) K/uL RBC (4.7-6.1) M/uL Hgb (14.0-18.0) g/dL Hct (42-52) % MCV (80-100) fL MCH (25-34) pg MCHC (32-36) g/dL RDW Std Deviation (36.4-46.3) fL RDW Coeff of Gissel (11.5-14.5) % Plt Count (130-400) K/uL MPV (7.4-10.4) fL Immature Gran % (Auto) % Neut % (Auto) % Lymph % (Auto) % [place] % (Auto) % Eos % (Auto) % Baso % (Auto) % Neut # (Auto) (1.4-6.5) K/uL Lymph # (Auto) (1.2-3.4) K/uL [place] # (Auto) (0.11-0.59) K/uL Eos # (Auto) (0-0.5) K/uL Baso # (Auto) (0-0.2) K/uL Immature Gran # (Auto) (0.00-0.02) K/uL ESR (0-20) mm/hr Sodium (136-145) mmol/L Potassium (3.5-5.1) mmol/L Chloride (98-107) mmol/L Carbon Dioxide (21-32) mmol/L Anion Gap (3-11) BUN (6-23) mg/dl Creatinine (0.6-1.4) mg/dl Est Cr Clr Drug Dosing ml/min Est GFR ( Amer) ml/min Est GFR (Non-Af Amer) ml/min BUN/Creatinine Ratio (10-20) Glucose (70-99(Fasting)) mg/dl POC Glucose 176 H 156 H (70-99) mg/dl Estimat Average Glucose 177 mg/dl Hemoglobin A1c 7.8 H (4.5-5.6) % Lactate (0.4-2.0) mmol/L Calcium (8.5-10.1) mg/dl C-Reactive Protein (0-0.5) mg/dl SARS-CoV-2, RNA, NAAT (NEGATIVE) 07/22/21 07/22/21 07/22/21 Range/Units 07:04 07:04 07:04 WBC 5.70 (4.8-10.8) K/uL RBC 4.49 L (4.7-6.1) M/uL Hgb 14.2 (14.0-18.0) g/dL Hct 40.8 L (42-52) % MCV 90.9 (80-100) fL MCH 31.6 (25-34) pg MCHC 34.8 (32-36) g/dL RDW Std Deviation 48.3 H (36.4-46.3) fL RDW Coeff of Gissel 14.4 (11.5-14.5) % Plt Count 169 (130-400) K/uL MPV 10.6 H (7.4-10.4) fL Immature Gran % (Auto) 0.2 % Neut % (Auto) 75.6 % Lymph % (Auto) 12.6 % [place] % (Auto) 9.8 % Eos % (Auto) 1.6 % Baso % (Auto) 0.2 % Neut # (Auto) 4.31 (1.4-6.5) K/uL Lymph # (Auto) 0.72 L (1.2-3.4) K/uL [place] # (Auto) 0.56 (0.11-0.59) K/uL Eos # (Auto) 0.09 (0-0.5) K/uL Baso # (Auto) 0.01 (0-0.2) K/uL Immature Gran # (Auto) 0.01 (0.00-0.02) K/uL ESR 45 H (0-20) mm/hr Sodium 135 L (136-145) mmol/L Potassium 4.9 (3.5-5.1) mmol/L Chloride 104 (98-107) mmol/L Carbon Dioxide 26 (21-32) mmol/L Anion Gap 5 (3-11) BUN 16 (6-23) mg/dl Creatinine 1.18 (0.6-1.4) mg/dl Est Cr Clr Drug Dosing 59.5 ml/min Est GFR ( Amer) 69.5 ml/min Est GFR (Non-Af Amer) 60.0 ml/min BUN/Creatinine Ratio 13.6 (10-20) Glucose 168 H (70-99(Fasting)) mg/dl POC Glucose (70-99) mg/dl Estimat Average Glucose mg/dl Hemoglobin A1c (4.5-5.6) % Lactate (0.4-2.0) mmol/L Calcium 8.6 (8.5-10.1) mg/dl C-Reactive Protein 12.30 H (0-0.5) mg/dl SARS-CoV-2, RNA, NAAT (NEGATIVE) 07/21/21 07/21/21 07/21/21 Range/Units Unknown 22:17 17:24 WBC (4.8-10.8) K/uL RBC (4.7-6.1) M/uL Hgb (14.0-18.0) g/dL Hct (42-52) % MCV (80-100) fL MCH (25-34) pg MCHC (32-36) g/dL RDW Std Deviation (36.4-46.3) fL RDW Coeff of Gissel (11.5-14.5) % Plt Count (130-400) K/uL MPV (7.4-10.4) fL Immature Gran % (Auto) % Neut % (Auto) % Lymph % (Auto) % [place] % (Auto) % Eos % (Auto) % Baso % (Auto) % Neut # (Auto) (1.4-6.5) K/uL Lymph # (Auto) (1.2-3.4) K/uL [place] # (Auto) (0.11-0.59) K/uL Eos # (Auto) (0-0.5) K/uL Baso # (Auto) (0-0.2) K/uL Immature Gran # (Auto) (0.00-0.02) K/uL ESR (0-20) mm/hr Sodium (136-145) mmol/L Potassium (3.5-5.1) mmol/L Chloride (98-107) mmol/L Carbon Dioxide (21-32) mmol/L Anion Gap (3-11) BUN (6-23) mg/dl Creatinine (0.6-1.4) mg/dl Est Cr Clr Drug Dosing ml/min Est GFR ( Amer) ml/min Est GFR (Non-Af Amer) ml/min BUN/Creatinine Ratio (10-20) Glucose (70-99(Fasting)) mg/dl POC Glucose 137 H (70-99) mg/dl Estimat Average Glucose mg/dl Hemoglobin A1c (4.5-5.6) % Lactate 0.9 (0.4-2.0) mmol/L Calcium (8.5-10.1) mg/dl C-Reactive Protein (0-0.5) mg/dl SARS-CoV-2, RNA, NAAT NEGATIVE (NEGATIVE) 07/21/21 07/21/21 07/21/21 Range/Units 14:40 14:40 13:50 WBC 10.17 (4.8-10.8) K/uL RBC 4.73 (4.7-6.1) M/uL Hgb 14.2 (14.0-18.0) g/dL Hct 42.1 (42-52) % MCV 89.0 (80-100) fL MCH 30.0 (25-34) pg MCHC 33.7 (32-36) g/dL RDW Std Deviation 46.3 (36.4-46.3) fL RDW Coeff of Gissel 14.2 (11.5-14.5) % Plt Count 187 (130-400) K/uL MPV 10.9 H (7.4-10.4) fL Immature Gran % (Auto) 0.3 % Neut % (Auto) 86.2 % Lymph % (Auto) 6.8 % [place] % (Auto) 6.5 % Eos % (Auto) 0.1 % Baso % (Auto) 0.1 % Neut # (Auto) 8.77 H (1.4-6.5) K/uL Lymph # (Auto) 0.69 L (1.2-3.4) K/uL [place] # (Auto) 0.66 H (0.11-0.59) K/uL Eos # (Auto) 0.01 (0-0.5) K/uL Baso # (Auto) 0.01 (0-0.2) K/uL Immature Gran # (Auto) 0.03 H (0.00-0.02) K/uL ESR (0-20) mm/hr Sodium 131 L (136-145) mmol/L Potassium 4.7 (3.5-5.1) mmol/L Chloride 97 L (98-107) mmol/L Carbon Dioxide 25 (21-32) mmol/L Anion Gap 9 (3-11) BUN 21 (6-23) mg/dl Creatinine 1.26 (0.6-1.4) mg/dl Est Cr Clr Drug Dosing 55.8 ml/min Est GFR ( Amer) 64.2 ml/min Est GFR (Non-Af Amer) 55.4 ml/min BUN/Creatinine Ratio 16.7 (10-20) Glucose 193 H (70-99(Fasting)) mg/dl POC Glucose (70-99) mg/dl Estimat Average Glucose mg/dl Hemoglobin A1c (4.5-5.6) % Lactate 2.1 H* (0.4-2.0) mmol/L Calcium 9.0 (8.5-10.1) mg/dl C-Reactive Protein (0-0.5) mg/dl SARS-CoV-2, RNA, NAAT (NEGATIVE)
[2021-07-22] MEDS ORDERED: CEFEPIME 2,000 MG in SYRINGE 0 ML IV SCH (18:00)
--- NOTE | 2021-07-22 19:41 | Billing Data ---
Date of Service July 22, 2021 Coding Level of Care Code 54607 Subseq Hosp Care Lvl 3
[2021-07-22] MEDS: oxyCODONE HCL IR 5 MG TAB (IMMEDIATE RELEASE) PO PRN (19:45)
[2021-07-22] MEDS: VANCOMYCIN HCL 750 MG in SODIUM CHLORIDE 0.9% 250 ML IV SCH (20:49)
--- NOTE | 2021-07-23 07:36 | Hospitalist Progress Note ---
Date of Service July 23, 2021 Assessment & Plan (1) Cellulitis of foot associated with diabetes mellitus: (2) Diabetic ulcer of toe: (3) Osteomyelitis: (4) Hypertension: (5) Hyperlipidemia: (6) CAD in [place] artery: Plan: 76 year old gentleman with history of T2DM admitted for cellulitis and osteomyelitis of his left second toe. Left 2nd toe osteomyelitis, LLE cellulitis: Presented with worsening redness and pain to left foot, specifically to diabetic ulcer on left 2nd toe. WBC normal. XR left foot shows evidence of osteomyelitis of left 2nd toe distal phalanx. Arterial duplex without evidence of focal vessel occlusion. Blood cultures negative to date. Ortho consulted, for left 2nd toe removal on 07/26. Continue vanc/cefepime. Oxycodone 5mg PO q8h as needed for pain. DM2: Last A1c 7.8. Continue basal/bolus insulin while admitted. Will decrease to 25u AM, 20u PM with looser sliding scale given hypoglycemia yesterday evening. CAD, HLD: s/p CABG x3 in [address] [facility]. Continue clopidogrel, metoprolol, atorvastatin. Cognitive impairment, unspecified psychosis history: Has several psychiatric diagnoses in chart including schizophrenia, bipolar disorder. Was hospitalized at a psychiatric facility in [place] in fall 2020. Not currently on any psychiatric medications, and does not have an outpatient psychiatrist. Follows with Neurology for mild cognitive impairment, continue donepezil. No evidence this admission of psychosis, delirium. Alert and oriented in room, euthymic affect. Code Status: FULL CODE FEN/GI: T2DM DVT Prophylaxis: Lovenox 40mg SQ daily Disposition: Med/Surg Admission and Anticipated Discharge Date Admission Date: July 21, 2021 Supervising Physician Co-Signing Physician Notes I personally examined the patient and verified all schultz points of history and exam, discussed case, and agree with decision making with Dr Isaac Foot pain under reasonable control. for surgery - probalby 07/26. no other new complaints - just asks for a razor so he can clean up his stubble Vitals noted, in general he is awake and alert pleasant no distress. HEENT n ormocephalic atraumatic mucous membranes moist. Breathing unlabored no accessory muscle use good effort. Skin shows no rashes no pallor or icterus. Foot is dressed. Osteomyelitiscontinue antibiotics, anticipate surgery in the coming days. Otherwise as above Subjective Patient without acute events overnight. Still with pain in left foot and toes however improved from admission. Awaiting surgical removal of left 2nd toe on Sunday by Dr. Boyd. Patient denies chest pain, SOB, fevers. Review of Systems Review of Systems: All systems reviewed & are unremarkable except as noted in Subjective Physical Exam Constitutional: WD/WN, vitals as above Respiratory: normal respiratory effort, lungs clear to auscultation Cardiovascular: Rate/Rhythm: regular rate and regular rhythm Heart Sounds: no murmur Extremities: normal capillary refill Gastrointestinal (Abdomen): normal bowel sounds, soft, nontender, no hepatosplenomegaly Skin: + erythema improving erythema, warmth and swelling on left foot. Eschar over distal 2nd toe. DP and PT pulses palpable. Neurologic: moves all extremities and awake; not confused Psychiatric: A+Ox3, euthymic affect Results & Data Results & Data ([facility]) Vital Signs (Past 12 Hours) Vital Signs Temp Pulse Resp BP Pulse Ox 07/22/21 22:36 36.8 C 68 18 126/72 96 Resident Activity Tracking Resident Involvement: Resident Care Provided Care Provided: Adult Hospital Medicine (1) Hyperlipidemia Hyperlipidemia type: unspecified Qualified Code(s): E78.5 - Hyperlipidemia, unspecified (2) Hypertension Hypertension type: essential hypertension Qualified Code(s): I10 - Essential (primary) hypertension (3) Osteomyelitis Laterality: unspecified laterality Osteomyelitis location: foot Osteomyelitis type: unspecified type Qualified Code(s): M86.9 - Osteomyelitis, unspecified
[2021-07-23 07:37] LABS: Creatinine Clr Calc Pharmacy 59.5 ml/min; Est GFR (African American) 69.5 ml/min
[2021-07-23] MEDS: CEFEPIME 2,000 MG in SYRINGE 0 ML IV SCH ×2 (08:06→22:17)
[2021-07-23] MEDS: oxyCODONE HCL IR 5 MG TAB (IMMEDIATE RELEASE) PO PRN (08:07)
[2021-07-23] MEDS: ATORVASTATIN 40 MG TAB PO SCH (08:07)
[2021-07-23] MEDS: DONEPEZIL HCL 10 MG TAB PO SCH (08:07)
[2021-07-23] MEDS: VANCOMYCIN HCL 750 MG in SODIUM CHLORIDE 0.9% 250 ML IV SCH ×2 (08:07→20:41)
[2021-07-23] MEDS: PANTOprazole 40 MG TAB PO SCH (08:07)
[2021-07-23] MEDS: ENOXAPARIN INJ 40 MG/0.4 ML SYR SQ SCH (08:08)
[2021-07-23] MEDS: CYANOCOBALAMIN (B-12) 500 MCG TABLET PO SCH (08:08)
[2021-07-23] MEDS: METOPROLOL SUCC 25MG EXT REL TAB PO SCH (08:08)
[2021-07-23] MEDS: INSULIN GLARGINE SOLOSTAR 100 UNITS/ML 3 ML PEN SC SCH ×2 (08:54→20:49)
[2021-07-23] MEDS: INSULIN ASPART PER UNIT SC SCH ×4 (08:55→20:49)
--- NOTE | 2021-07-23 16:37 | Billing Data ---
Date of Service July 23, 2021 Coding Level of Care Code 83417 Subseq Hosp Care Lvl 3
[2021-07-23] MEDS ORDERED: VANCOMYCIN TROUGH ONE ×2 (19:30→20:30)
--- NOTE | 2021-07-23 21:22 | Pharmacy Report ---
Pharmacy Vanc AUC Short Note - Date of Service July 23, 2021 - Assessment & Plan Assessment 76 year old M receiving VANC-IV for treatment of osteo. Day # 3 of antimicrobial therapy. Laboratory Tests 07/23/21 20:17 Vancomycin Trough 9.5 L Plan Vancomycin * AUC/GAUDENCIO is the preferred PK/PD target for vancomycin * AUC guided dosing is effective and associated with decreased risk of nephrotoxicity compared to traditional trough targets * Trough level of 9.5 mcg/mL is predicted to achieve target AUC/GAUDENCIO of 401 mg/L.hr * Opted to increase dose to 1000mg IV q 12hours to achieve target AUC/GAUDENCIO ~500. * Trough level ordered @[facility] for: 07/25/21 1800 dose Pharmacy will continue to follow and will adjust dose/frequency as necessary. Thank you.
[2021-07-24] MEDS: oxyCODONE HCL IR 5 MG TAB (IMMEDIATE RELEASE) PO PRN (05:57)
[2021-07-24] MEDS: VANCOMYCIN HCL 1,000 MG in SODIUM CHLORIDE 0.9% 250 ML IV SCH ×3 (05:58→21:25)
[2021-07-24 06:03] LABS: Basophils # (auto) 0.01 K/uL (0-0.2); Basophils % (auto) 0.2 %; Eosinophils # (auto) 0.14 K/uL (0-0.5); Eosinophils % (auto) 3.2 %; Hematocrit (blood only) 39.9 % (42-52); Hemoglobin 13.2 g/dL (14.0-18.0); Immature Granulocytes # (auto) 0.01 K/uL (0.00-0.02); Immature Granulocytes % (auto) 0.2 %; Lymphocytes # (auto) 0.86 K/uL (1.2-3.4); Lymphocytes % (auto) 19.7 %; Mean Corpuscular Hemoglobin 29.5 pg (25-34); Mean Corpuscular Hgb Conc 33.1 g/dL (32-36); Mean Corpuscular Volume 89.3 fL (80-100); Mean Platelet Volume 10.6 fL (7.4-10.4); Monocytes % (auto) 6.9 %; Neutrophils # (auto) 3.04 K/uL (1.4-6.5); Neutrophils % (auto) 69.8 %; Platelet Count 171 K/uL (130-400); RDW Coefficient of Variation 14.1 % (11.5-14.5); RDW Standard Deviation 46.3 fL (36.4-46.3); Red Blood Count 4.47 M/uL (4.7-6.1); White Blood Count 4.36 K/uL (4.8-10.8)
[2021-07-24 06:36] LABS: Creatinine Clr Calc Pharmacy 58.5 ml/min; Est GFR (African American) 68.1 ml/min; Est GFR (Non-African American) 58.8 ml/min
--- NOTE | 2021-07-24 06:54 | Hospitalist Progress Note ---
Date of Service July 24, 2021 Assessment & Plan (1) Cellulitis of foot associated with diabetes mellitus: (2) Diabetic ulcer of toe: (3) Osteomyelitis: (4) Hypertension: (5) Hyperlipidemia: (6) CAD in [place] artery: Plan: 76 history of T2DM admitted for cellulitis and osteomyelitis of his left second toe. Left 2nd toe osteomyelitis, LLE cellulitis: -Presented with worsening redness and pain to left foot, specifically to diabetic ulcer on left 2nd toe. -WBC count continues to be normal. BCx negative. -XR left foot showed evidence of osteomyelitis of left 2nd toe distal phalanx. -Arterial duplex without evidence of focal vessel occlusion. -Ortho consulted, for left 2nd toe removal on 07/[address] Boyd. -Continue vanc/cefepime. -Oxycodone 5mg PO q8h as needed for pain. Pain better today per patient compared to yesterday. DM2: -Last A1c 7.8. -Continue basal/bolus insulin while admitted (Currently on 25u AM, 20u PM Lantus). CAD, HLD: -s/p CABG x3 in 2019 at [facility]. -Continue clopidogrel, metoprolol, atorvastatin. Cognitive impairment, unspecified psychosis history: -Has several psychiatric diagnoses in chart including schizophrenia, bipolar disorder. -Was hospitalized at a psychiatric facility in [place] in fall 2020. -Not currently on any psychiatric medications, and does not have an outpatient psychiatrist. -Follows with Neurology for mild cognitive impairment; continue donepezil. -No evidence this admission of psychosis or delirium. Alert and oriented in room, euthymic affect. Code Status: FULL CODE FEN/GI: DM2, Heart healthy diet DVT Prophylaxis: Lovenox 40mg SQ daily Disposition: Med/Surg Admission and Anticipated Discharge Date Admission Date: July 21, 2021 Supervising Physician Co-Signing Physician Notes I personally examined the patient and verified all schultz points of history and exam, discussed case, and agree with decision making with Dr Isaac sitting in chair sleeping. no distress Vitals noted, in general he is awake and alert pleasant no distress. HEENT normocephalic atraumatic mucous membranes moist. Breathing unlabored no acces parth muscle use good effort. Skin shows no rashes no pallor or icterus. Foot is with less erythema on dorsum than yesterday Osteomyelitiscontinue IV antibiotics, anticipate surgery in the coming days (07/26). Otherwise as above Subjective Patient without acute events overnight. Used one pain pill overnight, and he reports that overall his left foot pain is much improved now as compared to admission. Review of Systems Review of Systems: All systems reviewed & are unremarkable except as noted in Subjective Physical Exam Constitutional: WD/WN, vitals as above Respiratory: normal respiratory effort, lungs clear to auscultation Cardiovascular: Rate/Rhythm: regular rate and regular rhythm Heart Sounds: no murmur Extremities: normal capillary refill Gastrointestinal (Abdomen): normal bowel sounds, soft, nontender, no hepa tosplenomegaly Skin: chronic venous stasis skin changes in bilateral LE left dorsal foot and toes with erythema, tenderness to palpation dressing in place to left 2nd toe Neurologic: moves all extremities and awake; not confused Psychiatric: A+Ox3, euthymic affect Results & Data Results & Data ([facility]) Vital Signs (Past 12 Hours) Vital Signs Temp Pulse Resp BP Pulse Ox 07/23/21 22:15 36.4 C L 68 16 122/67 97 Resident Activity Tracking Resident Involvement: Resident Care Provided Care Provided: Adult Hospital Medicine (1) Hyperlipidemia Hyperlipidemia type: unspecified Qualified Code(s): E78.5 - Hyperlipidemia, unspecified (2) Hypertension Hypertension type: essential hypertension Qualified Code(s): I10 - Essential (primary) hypertension (3) Osteomyelitis Laterality: unspecified laterality Osteomyelitis location: foot Osteomyelitis type: unspecified type Qualified Code(s): M86.9 - Osteomyelitis, unspecified
[2021-07-24] MEDS: ENOXAPARIN INJ 40 MG/0.4 ML SYR SQ SCH (08:08)
[2021-07-24] MEDS: METOPROLOL SUCC 25MG EXT REL TAB PO SCH (08:10)
[2021-07-24] MEDS: CYANOCOBALAMIN (B-12) 500 MCG TABLET PO SCH (08:10)
[2021-07-24] MEDS: ATORVASTATIN 40 MG TAB PO SCH (08:10)
[2021-07-24] MEDS: PANTOprazole 40 MG TAB PO SCH (08:10)
[2021-07-24] MEDS: DONEPEZIL HCL 10 MG TAB PO SCH (08:10)
[2021-07-24] MEDS: INSULIN ASPART PER UNIT SC SCH ×4 (08:49→21:24)
[2021-07-24] MEDS: INSULIN GLARGINE SOLOSTAR 100 UNITS/ML 3 ML PEN SC SCH ×2 (08:53→21:25)
[2021-07-24] MEDS: CEFEPIME 2,000 MG in SYRINGE 0 ML IV SCH ×2 (09:00→21:26)
--- NOTE | 2021-07-24 16:10 | Billing Data ---
Date of Service July 24, 2021 Coding Level of Care Code 70463 Subseq Hosp Care Lvl 1
--- NOTE | 2021-07-25 06:37 | Hospitalist Progress Note ---
Date of Service July 25, 2021 Assessment & Plan (1) Cellulitis of foot associated with diabetes mellitus: (2) Diabetic ulcer of toe: (3) Osteomyelitis: (4) Hypertension: (5) Hyperlipidemia: (6) CAD in [place] artery: Plan: 76 history of T2DM admitted for cellulitis and osteomyelitis of his left second toe. Left 2nd toe osteomyelitis, LLE cellulitis: -Presented with worsening redness and pain to left foot, specifically to diabetic ulcer on left 2nd toe. -WBC count continues to be normal. BCx negative. -XR left foot showed evidence of osteomyelitis of left 2nd toe distal phalanx. -Arterial duplex without evidence of focal vessel occlusion. -Ortho consulted, for left 2nd toe removal on 07/[address] Boyd. -Continue vanc/cefepime. -Oxycodone 5mg PO q8h as needed for pain. Pain better today per patient compared to yesterday. DM2: -Last A1c 7.8. -Continue basal/bolus insulin while admitted (Currently on 25u AM, 20u PM Lantus). CAD, HLD: -s/p CABG x3 in 2019 at [facility]. -Continue clopidogrel, metoprolol, atorvastatin. Cognitive impairment, unspecified psychosis history: -Has several psychiatric diagnoses in chart including schizophrenia, bipolar disorder. -Was hospitalized at a psychiatric facility in [place] in fall 2020. -Not currently on any psychiatric medications, and does not have an outpatient psychiatrist. -Follows with Neurology for mild cognitive impairment; continue donepezil. -No evidence this admission of psychosis or delirium. Alert and oriented in room, euthymic affect. Code Status: FULL CODE FEN/GI: DM2, Heart healthy diet DVT Prophylaxis: Lovenox 40mg SQ daily Disposition: Med/Surg Admission and Anticipated Discharge Date Admission Date: July 21, 2021 Subjective 7/10 L foot and leg pain up to knee. Better than at admission. + tingling LLE. No f/c, cp, sob. Denies other ROS. Appetite good. Review of Systems Review of Systems: All systems reviewed & are unremarkable except as noted in HPI & below Physical Exam Physical Exam: General: Grossly A&O. NAD. Cooperative. HEENT: Atraumatic, normocephalic. Pulm: CTAB. -wheezes, -rales, -rhonchi. No respiratory distress. Lungs clear. Cardiac: RRR, -mrg. Trace LE edma on L w/ mild venous stasis changes. Has scab at bilat shins. L 2nd toe wrapped. Abdominal: Nontender, nondistended, soft. Neuro: Strengtha nd sensation of BLE intact. Results & Data Results & Data ([facility]) Vital Signs (Past 12 Hours) Vital Signs Hr 101x1 07/24/21 afternoon. Other vitals stable. Temp Pulse Resp BP Pulse Ox 07/24/21 22:14 36.5 C 61 16 124/72 94 Laboratory Results CBC stable. bmp stable. cr 1.21 stable near baseline 2/3 bc NG 48 hrs. Resident Activity Tracking Resident Involvement: Resident Care Provided Care Provided: Adult Hospital Medicine (1) Hyperlipidemia Hyperlipidemia type: unspecified Qualified Code(s): E78.5 - Hyperlipidemia, unspecified (2) Hypertension Hypertension type: essential hypertension Qualified Code(s): I10 - Essential (primary) hypertension (3) Osteomyelitis Laterality: unspecified laterality Osteomyelitis location: foot Osteomyelitis type: unspecified type Qualified Code(s): M86.9 - Osteomyelitis, unspecified
[2021-07-25 07:41] LABS: Basophils # (auto) 0.02 K/uL (0-0.2); Basophils % (auto) 0.4 %; Eosinophils # (auto) 0.12 K/uL (0-0.5); Eosinophils % (auto) 2.6 %; Hematocrit (blood only) 44.5 % (42-52); Hemoglobin 14.6 g/dL (14.0-18.0); Immature Granulocytes # (auto) 0.01 K/uL (0.00-0.02); Immature Granulocytes % (auto) 0.2 %; Lymphocytes % (auto) 19.4 %; Mean Corpuscular Hemoglobin 29.6 pg (25-34); Mean Corpuscular Hgb Conc 32.8 g/dL (32-36); Mean Corpuscular Volume 90.3 fL (80-100); Mean Platelet Volume 10.8 fL (7.4-10.4); Monocytes # (auto) 0.41 K/uL (0.11-0.59); Monocytes % (auto) 8.9 %; Neutrophils # (auto) 3.17 K/uL (1.4-6.5); Neutrophils % (auto) 68.5 %; Platelet Count 218 K/uL (130-400); RDW Coefficient of Variation 14.1 % (11.5-14.5); RDW Standard Deviation 46.5 fL (36.4-46.3); Red Blood Count 4.93 M/uL (4.7-6.1); White Blood Count 4.63 K/uL (4.8-10.8)
[2021-07-25 08:01] LABS: BUN Creatinine Ratio 14.9 (10-20); Calcium 8.7 mg/dl (8.5-10.1); Est GFR (African American) 67.5 ml/min; Est GFR (Non-African American) 58.2 ml/min
--- NOTE | 2021-07-25 08:45 | Medical Student Progress Note ---
Date of Service July 25, 2021 Assessment & Plan (1) Cellulitis of foot associated with diabetes mellitus: Plan: 76 year old gentleman with a history of T2DM admitted for LLE cellulitis and osteomyelitis of his left second toe. He is stable and waiting for toe ampu tation tomorrow. 1. Left 2nd toe osteomyelitis, LLE cellulitis: -Presented with worsening redness and pain to left foot, specifically to diabetic ulcer on left 2nd toe -no infectious symptoms but feels that swelling has worsened, potentially because he has not been elevating as much -Continue vanc/cefepime -WBC count continues to be normal. BCx negative. -XR left foot showed evidence of osteomyelitis of left 2nd toe distal phalanx -Arterial duplex without evidence of focal vessel occlusion -Ortho consulted, for left 2nd toe removal on 07/[address] Boyd -NPO after midnight and d/c lovanox in anticipation of surgery tomorrow -Oxycodone 5mg PO q8h prn 2. DM2: -Last A1c 7.8 -Continue basal/bolus insulin while admitted (Currently on 25u AM, 20u PM Lantus) -SSI with correction factor 15 and carb ratio 7 3. CAD, HLD: -s/p CABG x3 in 2019 at [facility] -Continue clopidogrel, metoprolol, atorvastatin 4. Cognitive impairment, unspecified psychosis history: -cooperative, affect appropriate, answers questions appropriately -continue home donepezil for history of mild cognitive impairment -Has several psychiatric diagnoses in chart including schizophrenia, bipolar disorder, ?schizoaffective disorder -Was hospitalized at a psychiatric facility in [place] in fall 2020 -Not currently on any psychiatric medications, and does not have an outpatient psychiatrist FEN/GI: Carb-consistent/Heart healthy diet (NPO after midnight for surgery) Code Status: full code DVT Prophylaxis: Lovenox held in anticipation of surgery Disposition: Med/Surg (2) Diabetic ulcer of toe: (3) Osteomyelitis: Laterality: unspecified laterality Osteomyelitis location: foot Osteomyelitis type: unspecified type Qualified Code(s): M86.9 - Osteomyelitis, unspecified (4) Hypertension: Hypertension type: essential hypertension Qualified Code(s): I10 - Essential (primary) hypertension (5) Hyperlipidemia: Hyperlipidemia type: unspecified Qualified Code(s): E78.5 - Hyperlipidemia, unspecified (6) CAD in [place] artery: Admission and Anticipated Discharge Date Admission Date: July 21, 2021 Supervising Attestation Medical Student Supervision Note: I was personally present during medical student patient encounter and independently interviewed and examined the patient and verified the schultz history and physical, reviewed labs and image studies, discussed the case with Hussein Bañuelos and agree with the findings and care plan. Toe OM DM h/o Thought ds Arterial Doppler normal. For toe amputation in am. Monitor for any destabilization while hospitalized since not on any antipsychotics/mood stabilizers. Subjective Continues to have LLE pain and tenderness, 12/25 but goes down with his oxycodon e. He does feels that the swelling has worsened since admission. Denies fevers, chills, sweats. He has been moving his bowels, urinating, sleeping, and eating well. His mood is good. Review of Systems Review of Systems: per HPI Physical Exam Constitutional: WD/WN, vitals as above ENMT: external ear and nose normal, oropharynx normal Neck: trachea midline, no thyromegaly Respiratory: normal respiratory effort, lungs clear to auscultation Cardiovascular: Rate/Rhythm: regular rate and regular rhythm Heart Sounds: normal S1 and normal S2; no gallop, no murmur and no cardiac rub Musculoskeletal: LLE from knee down is erythematous and warm to touch. 2+ pitting edema of LLE (from mid-calf down), no edema on RLE. Dressing on L 2nd toe clean, dry, intact. Results & Data ([facility]) Vital Signs (Past 12 Hours) Vital Signs Temp Pulse Pulse Resp BP Pulse Ox 07/25/21 07:20 36.4 C L 72 12 132/80 98 07/24/21 22:14 36.5 C 61 16 124/72 94
[2021-07-25] MEDS: METOPROLOL SUCC 25MG EXT REL TAB PO SCH (08:55)
[2021-07-25] MEDS: INSULIN GLARGINE SOLOSTAR 100 UNITS/ML 3 ML PEN SC SCH ×2 (08:55→21:58)
[2021-07-25] MEDS: INSULIN ASPART PER UNIT SC SCH ×4 (08:55→21:57)
[2021-07-25] MEDS: DONEPEZIL HCL 10 MG TAB PO SCH (08:56)
[2021-07-25] MEDS: ATORVASTATIN 40 MG TAB PO SCH (08:56)
[2021-07-25] MEDS: CYANOCOBALAMIN (B-12) 500 MCG TABLET PO SCH (08:56)
[2021-07-25] MEDS: ENOXAPARIN INJ 40 MG/0.4 ML SYR SQ SCH (08:56)
[2021-07-25] MEDS: PANTOprazole 40 MG TAB PO SCH (08:56)
--- NOTE | 2021-07-25 10:21 | Progress Notes ---
DATE OF SERVICE: 07/25/2021 Mr. Blanchard is resting comfortably in bed. He has had some pain in his toe. He is afebrile. His vi jovany signs are stable. His white count is normal and his labs are noted. The dressing is changed. T he wound is granulating. There is no palpable bone. The toe is less erythematous and less swollen. There is less petechial hemorrhage on the dorsum of the foot. There is 1+ edema of the foot, ankle, and lower leg. Posterior tibial is 1+. Ultrasound arterial noted. No stenosis. His Lovenox will be held. He will be n.p.o. after midnight. Consent has been done. The plan is for a partial left foot second toe amputation tomorrow. Continue his IV antibiotics. Job ID: [id number]
--- NOTE | 2021-07-25 11:04 | Pharmacy Report ---
Pharmacy Vanc AUC Short Note - Date of Service July 25, 2021 - Assessment & Plan Assessment 76 year old M receiving vancomycin/cefepime for osteo of toe. Per notes, planning for toe amputation tomorrow 07/26 Plan Vancomycin * AUC/GAUDENCIO is the preferred PK/PD target for vancomycin * AUC guided dosing is effective and associated with decreased risk of nephrotoxicity compared to traditional trough targets * Random vancomycin level this am came back at ~12.8 mcg/ml - this vancomycin dosing is associated with an AUC of ~460. Plan to increase dosing to vancomycin 1250 mg iv q 12 hrs to start now to target higher AUC due to severity of infection/osteomyelitis. This new vancomycin dosing predicated to achieve a trough level of ~17 mcg/ml and AUC ~580. It is associated with 13% toxicity * Will plan to obtain a level in next 2 days if continued ongoing Pharmacy will continue to follow and will adjust dose/frequency as necessary. Thank you.
[2021-07-25] MEDS: VANCOMYCIN HCL 1,250 MG in SODIUM CHLORIDE 0.9% 250 ML IV SCH ×2 (11:21→23:29)
[2021-07-25] MEDS: CEFEPIME 2,000 MG in SYRINGE 0 ML IV SCH ×2 (11:21→21:58)
--- NOTE | 2021-07-25 15:17 | Anesthesiology Consultation ---
Date of Service July 25, 2021 Assessment & Plan (1) Encounter for pre-operative examination: Chart Review Chart Review: Acceptable Risk for Surgery and Patient NOT seen in Pre Admission Testing Covid negative 07/21/21. Will order preop ECG as most recent ECG on file appeared to be in October 2020. Consults Requested none History Surgery Operation Date: 07/26/21 08:20 Proposed Procedures p Left 2nd Toe Amputation - David Boyd MD Height/Weight Height: 5 ft 9 in Weight: 88.4 kg Allergies Allergy/AdvReac Type Severity Reaction Status Date / Time morphine AdvReac Severe "STOPS MY Verified 07/21/21 14:45 HEART" hydromorphone [From Dilaudid] AdvReac Intermediate unresponsiv Verified 07/21/21 14:45 eness trazodone AdvReac Intermediate GI UPSET Verified 07/21/21 14:45 diazepam AdvReac Mild HALLUCINATE Verified 07/21/21 14:45 S propoxyphene AdvReac Mild DRUG Verified 07/21/21 14:45 INTOLERANCE Medications Home Medications Medication Instructions Recorded Confirmed Last Taken acetaminophen 500 mg tablet 1,000 mg PO Q8H PRN 06/05/19 07/21/21 11/03/20 (Tylenol Extra Strength) cyanocobalamin (vitamin B-12) 1,000 mcg PO QAM 05/09/20 07/21/21 07/21/21 1,000 mcg tablet (Vitamin B-12) pantoprazole 40 mg tablet,delayed 40 mg PO QAM #90 tab 09/20/20 07/21/21 release nitroglycerin 0.4 mg sublingual 0.4 mg SUBLINGUAL UD PRN 11/04/20 07/21/21 Unknown tablet (Nitrostat) donepezil 10 mg tablet 10 mg PO QAM #90 tab 11/29/20 07/21/21 07/21/21 atorvastatin 40 mg tablet 40 mg PO QAM #90 tab 12/01/20 07/21/21 07/21/21 flash glucose sensor (FreeStyle #2 ea 04/08/21 07/21/21 Unknown Kirk 14 Day Sensor) insulin glargine 100 unit/mL (3 46 unit SUBCUT QPM ml 06/16/21 07/21/21 07/21/21 mL) subcutaneous pen (Lantus Solostar U-100 Insulin) metoprolol succinate 25 mg 25 mg PO DAILY 07/01/21 07/21/21 07/21/21 tablet,extended release 24 hr (Toprol XL) pen needle, diabetic 31 gauge x #400 ea 07/11/21 07/21/21 Unknown 3/16" (BD Ultra-Fine Mini Pen Needle) insulin lispro 100 unit/mL 10 - 20 unit SQ QID ml 07/21/21 07/21/21 07/21/21 subcutaneous pen (Humalog KwikPen (U-100) Insulin) Active Medications Generic Name Dose Route Start Last Admin Trade Name Freq PRN Reason Stop Dose Admin Atorvastatin Calcium 40 mg 07/22/21 09:00 07/25/21 08:56 Atorvastatin 40 Mg Tab PO 08/21/21 08:59 40 mg QAM NIKOLAI Administration Cyanocobalamin 1,000 mcg 07/22/21 09:00 07/25/21 08:56 Cyanocobalamin 500 Mcg Tablet (Vitamin B-12) PO 08/21/21 08:59 1,000 mcg QAM NIKOLAI Administration Donepezil HCl 10 mg 07/22/21 09:00 07/25/21 08:56 Donepezil Hcl 10 Mg Tab PO 08/21/21 08:59 10 mg QAM NIKOLAI Administration Enoxaparin Sodium 40 mg 07/23/21 09:00 07/25/21 08:56 Enoxaparin Inj 40 Mg/0.4 Ml Syr SQ 08/22/21 08:59 40 mg QAM NIKOLAI Administration Cefepime HCl 2,000 mg/ Syringe 20 mls @ 5 mls/min 07/22/21 10:00 07/25/21 11:21 IV 09/02/21 09:59 5 mls/min Q12H NIKOLAI Administration Protocol Vancomycin HCl 1,250 mg/ 275 mls @ 200 mls/hr 07/25/21 11:00 07/25/21 13:11 Sodium Chloride IV 09/05/21 10:59 Infused Q12H NIKOLAI Infusion Insulin Aspart 0 units 07/21/21 21:37 07/25/21 12:40 Insulin Aspart Per Unit SC 08/20/21 21:36 5 units ACHS NIKOLAI Administration Insulin Glargine 25 units 07/24/21 09:00 07/25/21 08:55 Insulin Glargine Solostar 100 Units/Ml 3 Ml Pen SC 08/23/21 08:59 25 units QAM NIKOLAI Administration Insulin Glargine 20 units 07/23/21 21:00 07/24/21 21:25 Insulin Glargine Solostar 100 Units/Ml 3 Ml Pen SC 08/22/21 20:59 20 units HS NIKOLAI Administration Metoprolol Succinate 25 mg 07/22/21 09:00 07/25/21 08:55 Metoprolol Succ 25mg Ext Rel Tab PO 08/21/21 08:59 25 mg DAILY NIKOLAI Administration Miscellaneous 15 - 30 gm 07/21/21 21:37 07/22/21 17:27 Carbohydrates For Hypoglycemia PO 08/20/21 21:36 15 gm UD PRN Administration Hypoglycemia Protocol Oxycodone HCl 5 mg 07/22/21 14:29 07/24/21 05:57 Oxycodone Hcl Ir 5 Mg Tab (Immediate Release) PO 08/05/21 14:28 5 mg Q8H PRN Administration Pain Pantoprazole Sodium 40 mg 07/22/21 09:00 07/25/21 08:56 Pantoprazole 40 Mg Tab PO 08/21/21 08:59 40 mg QAM NIKOLAI Administration Past Medical History Medical History Acute diastolic (congestive) heart failure (06/2019) Arsenic poisoning Asymptomatic cholelithiasis Atypical chest pain Benign colonic polyp CAD in [place] artery Cellulitis Cognitive disorder Controlled type 2 diabetes mellitus with neurologic complication, 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 Mejia Nephrolithiasis Neurological deficit present Neuropathy Noninfected skin tear of left lower extremity Osteoarthritis Osteopenia determined by x-ray Raynauds phenomenon Stage III chronic kidney disease Stroke HX X 2-11/2004 AND 09/2019-F/U DR NÚÑEZ Thyroid disorder screening Tubular adenoma of colon Venous (peripheral) insufficiency Vitamin D deficiency Wound of left foot Left 2nd toe osteo, LLE cellulitis. Past Family History Family History Father , age 74 of an [place] Diabetes Prostate cancer Colorectal cancer Myocardial infarction Brother Prostate cancer Uncle Colorectal cancer Father Myocardial infarction Mother Myocardial infarction Stroke Other Dementia No family history of adverse response to anesthesia Denies family history of Ovarian cancer Breast cancer Past Surgical History Surgical History History of ankle surgery History of arthroscopy of left knee History of cardiac cath x4-5, last 05/19/2019 [facility] NO RECENT STENTS History of carpal tunnel release of both wrists History of colonoscopy History of heart artery stent (1998) History of lithotripsy x2 History of lumbar discectomy x2 History of open reduction and internal fixation (ORIF) procedure left ankle--hardware in place History of right cataract extraction History of tonsillectomy and adenoidectomy S/P CABG (coronary artery bypass graft) 4 [facility] [place] 2018 S/P sinus surgery Status post uvulopalatopharyngoplasty Social History Smoking Status: Current some day smoker tobacco type: cigarettes Smoking cigarettes per day: 3 Do You Dip or Chew Tobacco: Yes Hx Alcohol Use: No Alcohol type: beer alcohol intake frequency: other Hx Substance Use: No substance use type: does not use Physical Exam Vital Signs Last Vital Signs Temp 36.7 C 07/25/21 14:15 Pulse 72 07/25/21 14:15 Resp 16 07/25/21 14:15 BP 109/66 07/25/21 14:15 Pulse Ox 96 07/25/21 14:15 Testing Laboratory Results 07/25/21 07:02 07/25/21 07:02 Hemoglobin A1c 7.8 % (4.5-5.6) H 07/22/21 07:04 07/21/21 14:40 Aerobic Blood Culture - Preliminary Blood No growth in Aerobic bottle after 48 hours. Anaerobic Blood Culture - Preliminary No growth in Anaerobic bottle after 48 hours. 07/21/21 14:50 Aerobic Blood Culture - Preliminary Blood No growth in Aerobic bottle after 48 hours. Anaerobic Blood Culture - Preliminary No growth in Anaerobic bottle after 48 hours. 07/25/21 07/25/21 12:02 07:53 POC Glucose 107 H 97 Echocardiogram Date: 11/01/20 LV systolic function is normal. LA is mildly dilated. Moderate MR. RV systolic pressure is normal. Mild aortic root dilatation. Other Testing DICTATED BY:Wai Gill MD Test Reason : Blood Pressure : / mmHG Vent. Rate : 070 BPM Atrial Rate : 070 BPM P-R Int : 184 ms QRS Dur : 128 ms QT Int : 434 ms P-R-T Axes : 055 -47 005 degrees QTc Int : 468 ms Sinus rhythm with occasional , and consecutive PACs Left axis deviation Right bundle branch block Inferior infarct (cited on or before 19-JAN-2016) Abnormal ECG When compared with ECG of 28-SEP-2020 13:33, PACs are now present Confirmed by Wai Gill ([id number]) on 11/01/2020 5:54:45 PM
[2021-07-25] MEDS ORDERED: VANCOMYCIN TROUGH ONE (17:30)
[2021-07-25] MEDS ORDERED: NURSING DECISION MEDICATION ONE (23:11)
[2021-07-26] MEDS: INSULIN ASPART PER UNIT SC SCH ×4 (06:10→22:45)
--- NOTE | 2021-07-26 06:54 | Electrocardiogram Report ---
Test Reason : Blood Pressure : / mmHG Vent. Rate : 061 BPM Atrial Rate : 061 BPM P-R Int : 182 ms QRS Dur : 126 ms QT Int : 452 ms P-R-T Axes : 066 -50 -01 degrees QTc Int : 455 ms Normal sinus rhythm Left axis deviation Right bundle branch block Inferior infarct (cited on or before 19-JAN-2016) Abnormal ECG When compared with ECG of 31-OCT-2020 20:39, Premature atrial complexes are no longer Present Confirmed by Kain Pop ([id number]) on 07/26/2021 6:54:19 AM Referred By: Jez Jim Confirmed By:Kain Pop
[2021-07-26 07:28] LABS: Basophils # (auto) 0.01 K/uL (0-0.2); Basophils % (auto) 0.3 %; Eosinophils # (auto) 0.11 K/uL (0-0.5); Eosinophils % (auto) 3.1 %; Hematocrit (blood only) 39.5 % (42-52); Immature Granulocytes # (auto) 0.01 K/uL (0.00-0.02); Immature Granulocytes % (auto) 0.3 %; Lymphocytes # (auto) 0.68 K/uL (1.2-3.4); Lymphocytes % (auto) 18.9 %; Mean Corpuscular Hemoglobin 29.5 pg (25-34); Mean Corpuscular Hgb Conc 32.9 g/dL (32-36); Mean Corpuscular Volume 89.8 fL (80-100); Mean Platelet Volume 10.4 fL (7.4-10.4); Monocytes # (auto) 0.41 K/uL (0.11-0.59); Monocytes % (auto) 11.4 %; Neutrophils # (auto) 2.38 K/uL (1.4-6.5); Platelet Count 182 K/uL (130-400); RDW Coefficient of Variation 14.1 % (11.5-14.5); RDW Standard Deviation 46.6 fL (36.4-46.3)
[2021-07-26 07:54] LABS: BUN Creatinine Ratio 18.2 (10-20); Calcium 8.3 mg/dl (8.5-10.1); Creatinine Clr Calc Pharmacy 70.9 ml/min; Est GFR (Non-African American) 74.2 ml/min; Potassium 4.5 mmol/L (3.5-5.1)
[2021-07-26] MEDS ORDERED: fentaNYL citrate 100 MCG/2 ML VIAL IV PRN (08:38)
[2021-07-26] MEDS ORDERED: ATROPINE SULFATE 0.1 MG/ML 10ML SYR IV PRN (08:38)
[2021-07-26] MEDS ORDERED: ePHEDrine sulfate 50 MG/ML AMP IV PRN (08:38)
[2021-07-26] MEDS ORDERED: PROPOFOL IV EMULSION 10 MG/ML 20 ML VIAL IV ONE ×2 (08:53→10:28)
[2021-07-26] MEDS ORDERED: fentaNYL citrate 100 MCG/2 ML VIAL ONE (08:53)
[2021-07-26] MEDS ORDERED: LIDOCAINE 2% 2 ML VIAL/AMP(20MG/ML) INFIL ONE (08:53)
[2021-07-26] MEDS ORDERED: ONDANSETRON INJ 2 MG/ML 2 ML VIAL ONE (08:53)
[2021-07-26] MEDS ORDERED: MIDAZOLAM HCL 1 MG/ML 2ML VIAL ONE (08:53)
--- NOTE | 2021-07-26 09:41 | History & Physical Bridge Note ---
Date of Service July 26, 2021 History & Physical Bridge Note I have examined the patient, reviewed the History & Physical and in the interval since the performance of the History & Physical I have noted the following changes of clinical significance: no changes noted
[2021-07-26] MEDS: CEFEPIME 2,000 MG in SYRINGE 0 ML IV SCH ×2 (10:03→17:43)
[2021-07-26] MEDS ORDERED: BUPIVACAINE 0.5 % 5 MG/1 ML MPF 30ML VIAL ONE (10:12)
[2021-07-26] MEDS ORDERED: LIDOCAINE 1% LOCAL 20 ML VIAL ONE (10:13)
--- NOTE | 2021-07-26 11:09 | Operative Report ---
Post Operative Report Pre & Post Diagnosis Operation Date: 07/26/21 08:20 Pre-Op Diagnosis: OSTEOMYELITIS, Left foot second toe Post-Op Diagnosis: OSTEOMYELITIS I identified the patient and participated in the time-out.: Yes Procedure Operation Date: 07/26/21 08:20 Actual Procedures p Left 2nd Toe Amputation(Left) - David Boyd MD Surgeon David Boyd MD C[employer] Maintenance Technician Shaina Hernandez physicians ssn/ssbn assistant navigator no resident or fellow was available Estimated Blood Loss 1 Findings Consistent with Post-Op Diagnosis Specimens Culture of the bone left foot second toe and the amputated left foot second toe itself Anesthesia Type MAC Regional Complications none Disposition Accompanied Patient To Recovery: No Disposition: Recovery Room Indications Patient is 76 years old. He has diabetes. He developed a wound at the tip of the left foot second toe which has blossomed into cellulitic infection. Radiographs demonstrate bone erosion consistent with osteomyelitis. There is no open wound at the end of the second toe with palpable bone. The cellulitis has been dressed with elevation and antibiotics. He is ready for surgery. Description of Procedure Informed consent obtained. Patient identified. He identified the operative site as the left foot second toe. I marked with my initials. A preoperative surgical timeout was performed. A preop dose of IV antibiotics was given. He was taken to the operating room positioned supine on the operating room table. A bump under the left hip and a tourniquet on the left calf just below the peroneal nerve. Dried skin and eschar was removed from the tip of the toe. There was granulation tissue present but no palpable bone. Petechial hemorrhage rash on the dorsum of the foot was largely resolved. There was 1+ edema of the foot leg and ankle. Mild swelling of the toe but no erythema or drainage. The leg was prescrubbed prepped and draped in usual sterile fashion using Betadine. A local anesthetic was administered half percent Marcaine and 1% lidocaine both plain for a digital block. DVT prophylaxis is not necessary during the surgical procedure but postoperatively will receive Lovenox 40 mg subcu daily. Fluoroscopic guidance was utilized throughout the procedure. The limb was exsanguinated with the Esmarch from the foot up to the tourniquet. I did not wrap up the toe. Elevation was also performed on the use minimal pressure with the Esmarch. The tourniquet is inflated to 225 mmHg. Subsequent to that I made a localization with fluoroscopy to identify the PIP joint. I the n made a transverse incision just distal to that and created a fishmouth flap plantarly. Essentially a large Syme type amputation. I went down to the midline on the sides curving a little bit proximally. I then brought this distally along the mid lateral line right underneath the tip of the toe. This was carried out circumferentially. I then dissected proximally identified the PIP joint transected the capsule extensor tendon and ligaments. The flexor tendons were pulled into the wound and cut as far proximal as possible. I then dissected the middle and distal phalanx out of the wound bed in a supraperiosteal fashion. No bone was left behind. I removed a little bit of granulation tissue that was present. I then opened up the tip of the toe and took a swab culture of the bone. This was sent for Gram stain aerobic and anaerobic culture. I then submitted the toe for specimen. The tourniquet was let down. There was minimal bleeding. There was intact circulation to the posterior flap. This was trimmed as necessary. Copious irrigation was performed and the flap was brought up to cover over the head of the proximal phalanx. This was secured with 4-0 nylon simple interrupted horizontal mattress sutures. Fluffs were placed between the toes Xeroform 4 x 4 soft wrap and a postop shoe. Patient awakened from anesthesia without difficulty taken to recovery room in stable condition. There were no complications. Specimens were as mentioned above. Blood loss was 1 cc. At the conclusion the operation I spoke the patient's contact informed of my findings. Plan will be weightbearing as tolerated in postop shoe. Continue intravenous antibiotics. Leave sutures in 2 to 3 weeks. Lovenox for DVT prophylaxis until mobility improves. Elevate to minimize swelling. I attest to the content of the Intraoperative Record and any orders documented therein. Any exceptions are noted below.
--- NOTE | 2021-07-26 11:50 | Anesthesiology Progress Note ---
Date of Service July 26, 2021 Anesthesia Post Procedure Vital Signs Vital Signs: Temp Pulse Pulse Resp BP BP Pulse Ox 07/26/21 11:35 97.2 F L 59 L 18 118/66 99 07/26/21 11:25 97.2 F L 59 L 18 113/63 100 07/26/21 11:15 103 H 18 120/85 97 07/26/21 11:08 96.8 F L 97 H 18 118/83 97 07/26/21 07:34 61 16 129/77 99 07/25/21 23:55 97.5 F L 64 16 134/71 96 07/25/21 14:15 98.1 F 72 16 109/66 96 Pain Intensity Left Leg: Pain Intensity: 3 Left Foot: Pain Intensity: 7 Transfer of Care Handoff Completed per policy Notes Mental Status: alert / awake / arousable and participated in evaluation Patient Amnestic to Procedure: Yes Nausea / Vomiting: adequately controlled Pain: adequately controlled Airway Patency, RR, SpO2: stable & adequate BP & HR: stable & adequate Hydration State: stable & adequate Anesthetic Complications: no major complications apparent and Pt Satisfied with anesthetic care
[2021-07-26] MEDS ORDERED: NALOXONE HCL 0.4 MG/1 ML VIAL/CARP IV PRN (12:45)
[2021-07-26] MEDS ORDERED: METOCLOPRAMIDE HCL INJ 5 MG/ML 2 ML VIAL IV PRN (12:45)
[2021-07-26] MEDS ORDERED: traMADol HCL 50 MG TABLET PO PRN (12:45)
[2021-07-26] MEDS: INSULIN GLARGINE SOLOSTAR 100 UNITS/ML 3 ML PEN SC SCH ×2 (12:46→22:46)
[2021-07-26] MEDS: ATORVASTATIN 40 MG TAB PO SCH (12:47)
[2021-07-26] MEDS: PANTOprazole 40 MG TAB PO SCH (12:47)
[2021-07-26] MEDS: DONEPEZIL HCL 10 MG TAB PO SCH (12:47)
[2021-07-26] MEDS: CYANOCOBALAMIN (B-12) 500 MCG TABLET PO SCH (12:47)
[2021-07-26] MEDS: VANCOMYCIN HCL 1,250 MG in SODIUM CHLORIDE 0.9% 250 ML IV SCH ×2 (12:49→22:39)
[2021-07-26] MEDS: METOPROLOL SUCC 25MG EXT REL TAB PO SCH (12:51)
--- NOTE | 2021-07-26 13:36 | Fluoroscopy Report ---
FL toe LT 2V CLINICAL HISTORY: Left second toe amputation COMPARISON STUDY: 07/21/2021 FLUOROSCOPY TIME: 22 seconds. FLUOROSCOPIC IMAGES: 2 FINDINGS: The patient is status post amputation of the middle and distal phalanges of the second toe. Patient has history of a destructive lesion of the distal second toe. IMPRESSION: Status post amputation of the middle and distal phalanges of the second toe. ACT 112: Negative or not required by law. Electronically signed by: Stevan Modi M.D. 07/26/2021 1:34 PM
[2021-07-26] MEDS: SODIUM CHLORIDE 0.9% 1000ML 1,000 ML IV SCH ×2 (14:01→22:39)
[2021-07-26] MEDS ORDERED: Nursing to Pharmacy Communication SCH (15:00)
--- NOTE | 2021-07-26 15:54 | Medical Student Progress Note ---
Date of Service July 26, 2021 Assessment & Plan (1) Cellulitis of foot associated with diabetes mellitus: Plan: 76 year old gentleman with a history of T2DM admitted for LLE cellulitis and osteomyelitis of his left second toe. His toe amputation was completed today, and he is doing well. 1. Left 2nd toe osteomyelitis, LLE cellulitis: -s/p L 2nd toe amputation -Continue vanc/cefepime -Ortho following, PT/OT to evaluate -no infectious symptoms -WBC count continues to be normal. BCx negative. -Arterial duplex without evidence of focal vessel occlusion -Oxycodone 5mg PO q8h prn 2. DM2: -Last A1c 7.8 -Continue basal/bolus insulin while admitted (Currently on 25u AM, 20u PM Lantus) -SSI with correction factor 15 and carb ratio 7 3. CAD, HLD: -s/p CABG x3 in [facility] -Continue clopidogrel, metoprolol, atorvastatin 4. Cognitive impairment, unspecified psychosis history: -cooperative, affect appropriate, answers questions appropriately -continue home donepezil for history of mild cognitive impairment -Has several psychiatric diagnoses in chart including schizophrenia, bipolar disorder, ?schizoaffective disorder -Was hospitalized at a psychiatric facility in [place] in fall 2020 -Not currently on any psychiatric medications, does not have an outpatient psychiatrist FEN/GI: Carb-consistent/Heart healthy diet (NPO after midnight for surgery) Code Status: full code DVT Prophylaxis: Lovenox Disposition: Med/Surg (2) Diabetic ulcer of toe: (3) Osteomyelitis: Laterality: unspecified laterality Osteomyelitis location: foot Osteomyelitis type: unspecified type Qualified Code(s): M86.9 - Osteomyelitis, unspecified (4) Hypertension: Hypertension type: essential hypertension Qualified Code(s): I10 - Essential (primary) hypertension (5) Hyperlipidemia: Hyperlipidemia type: unspecified Qualified Code(s): E78.5 - Hyperlipidemia, unspecified (6) CAD in [place] artery: Admission and Anticipated Discharge Date Admission Date: July 21, 2021 Supervising Attestation Medical Student Supervision Note: I was personally present during medical student patient encounter and independently interviewed and examined the patient and verified the schultz history and physical, reviewed labs and image studies, discussed the case with Hussein Bañuelos and agree with the findings and care plan. - wean to oral abx after discussing with ortho - PT/OT eval once cleared by ortho. Subjective Tian is doing well this afternoon post-op. He says he has no complaints, urinating, moving bowels, and sleeping well. Physical Exam Constitutional: WD/WN, vitals as above ENMT: external ear and nose normal, oropharynx normal Neck: trachea midline, no thyromegaly Respiratory: normal respiratory effort, lungs clear to auscultation Cardiovascular: Rate/Rhythm: regular rate and regular rhythm Heart Sounds: normal S1 and normal S2; no gallop, no murmur and no cardiac rub Musculoskeletal: L foot in clean and intact nathalie bandage and boot up to midcalf. Between knee and bandages, leg is erythematous and warm to the touch. Results & Data ([facility]) Vital Signs (Past 12 Hours) Vital Signs Temp Pulse Pulse Resp BP BP Pulse Ox 07/26/21 15:16 36.5 C 71 18 116/72 97 07/26/21 14:13 36.5 C 64 18 109/65 97 07/26/21 13:00 58 L 16 131/72 100 07/26/21 12:35 50 L 16 126/80 100 07/26/21 11:35 36.2 C L 59 L 18 118/66 99 07/26/21 11:25 36.2 C L 59 L 18 113/63 100 07/26/21 11:15 103 H 18 120/85 97 07/26/21 11:08 36.0 C L 97 H 18 118/83 97 07/26/21 07:34 61 16 129/77 99
[2021-07-26] MEDS: oxyCODONE HCL IR 5 MG TAB (IMMEDIATE RELEASE) PO PRN (17:04)
--- NOTE | 2021-07-26 17:48 | Progress Notes ---
DATE OF SERVICE: 07/26/2021 Resting comfortably in bed. He has been up around his room. No problems are reported. The dressing is clean and dry. His vital signs are stable. I talked to him about the surgery. We will continue some IV antibiotics basically for about 24-48 hours depending on how things look. I think we can th en eventually convert him over to some oral antibiotics and anticipate discharge in a couple of days. Elevate the leg. We will do Lovenox for DVT prophylaxis starting tomorrow. Job ID: [id number]
[2021-07-27] MEDS: oxyCODONE HCL IR 5 MG TAB (IMMEDIATE RELEASE) PO PRN ×2 (00:55→22:27)
[2021-07-27] MEDS: CEFEPIME 2,000 MG in SYRINGE 0 ML IV SCH ×3 (00:55→22:18)
[2021-07-27 06:18] LABS: Basophils # (auto) 0.01 K/uL (0-0.2); Basophils % (auto) 0.2 %; Eosinophils # (auto) 0.11 K/uL (0-0.5); Eosinophils % (auto) 2.6 %; Hematocrit (blood only) 38.9 % (42-52); Hemoglobin 12.6 g/dL (14.0-18.0); Immature Granulocytes # (auto) 0.02 K/uL (0.00-0.02); Immature Granulocytes % (auto) 0.5 %; Lymphocytes # (auto) 0.81 K/uL (1.2-3.4); Mean Corpuscular Hemoglobin 29.2 pg (25-34); Mean Corpuscular Hgb Conc 32.4 g/dL (32-36); Mean Platelet Volume 10.5 fL (7.4-10.4); Monocytes # (auto) 0.43 K/uL (0.11-0.59); Monocytes % (auto) 10.1 %; Neutrophils # (auto) 2.88 K/uL (1.4-6.5); Neutrophils % (auto) 67.6 %; Platelet Count 164 K/uL (130-400); RDW Coefficient of Variation 14.1 % (11.5-14.5); RDW Standard Deviation 46.8 fL (36.4-46.3); Red Blood Count 4.32 M/uL (4.7-6.1); White Blood Count 4.26 K/uL (4.8-10.8)
[2021-07-27 06:39] LABS: BUN Creatinine Ratio 13.8 (10-20); Calcium 8.2 mg/dl (8.5-10.1); Creatinine Clr Calc Pharmacy 57.1 ml/min; Est GFR (African American) 66.1 ml/min; Est GFR (Non-African American) 57.1 ml/min; Potassium 4.7 mmol/L (3.5-5.1)
[2021-07-27] MEDS: ATORVASTATIN 40 MG TAB PO SCH (08:17)
[2021-07-27] MEDS: DONEPEZIL HCL 10 MG TAB PO SCH (08:18)
[2021-07-27] MEDS: CYANOCOBALAMIN (B-12) 500 MCG TABLET PO SCH (08:18)
[2021-07-27] MEDS: METOPROLOL SUCC 25MG EXT REL TAB PO SCH (08:20)
[2021-07-27] MEDS: PANTOprazole 40 MG TAB PO SCH (08:20)
[2021-07-27] MEDS: INSULIN GLARGINE SOLOSTAR 100 UNITS/ML 3 ML PEN SC SCH ×2 (08:22→20:54)
[2021-07-27] MEDS: INSULIN ASPART PER UNIT SC SCH ×4 (08:27→20:55)
[2021-07-27] MEDS: ENOXAPARIN INJ 40 MG/0.4 ML SYR SQ SCH (09:09)
--- NOTE | 2021-07-27 10:00 | Orthopedic Progress Note ---
Date of Service July 27, 2021 Assessment & Plan (1) Diabetic ulcer of toe: Plan: Postop day 1-status post left second toe amputation with Dr. Boyd on July 26, 2021. He may weight-bear as tolerated on left heel with postop shoe in place. May remove the postop shoe when in bed but needs to have it on when out of bed. Encouraged frequent ambulation for stamina and strength but frequent rests also with elevating the left foot. Encourage strict elevation when at rest of the left foot. We'll plan for dressing change tomorrow. Continue IV antibiotics through his inpatient stay and then plan for discharge to home on oral antibiotics. Explained to the patient that most likely will be able to be discharged tomorrow after the dressing change from an orthopedic standpoint. He will follow-up as scheduled early next week for repeat dressing change. Case management for disposition, he does live alone and would recommend home health nursing acutely upon discharge. Patient understands and agrees with the plan. We'll reevaluate tomorrow and do a dressing change. All questions were answered today. Continue Lovenox for DVT prophylaxis. Admission and Anticipated Discharge Date Admission Date: July 21, 2021 Subjective Patient resting in bed, states that he's been walking around his room to go to the bathroom. states that he had some pain thru the night last night. Physical Exam Musculoskeletal: Dr. Boyd present for todays visit. Left foot dressing clean, dry and intact. Postop shoe in place. He has his left foot elevated on a couple of pillows while in bed. Capillary refill is brisk other toes. Dressings were not removed today. He has good range of motion of his left leg decreased edema and erythema of the left lower extremity. Results & Data ([facility]) Vital Signs (Past 12 Hours) Vital Signs Temp Pulse Resp BP Pulse Ox 07/27/21 07:28 36.4 C L 47 L 16 120/67 96 07/27/21 02:11 36.5 C 63 16 119/72 96 07/26/21 23:03 36.4 C L 54 L 16 144/77 H 98 Laboratory Results 07/27/21 07/27/21 07/27/21 Range/Units 07:57 05:46 05:46 WBC 4.26 L (4.8-10.8) K/uL RBC 4.32 L (4.7-6.1) M/uL Hgb 12.6 L (14.0-18.0) g/dL Hct 38.9 L (42-52) % MCV 90.0 (80-100) fL MCH 29.2 (25-34) pg MCHC 32.4 (32-36) g/dL RDW Std Deviation 46.8 H (36.4-46.3) fL RDW Coeff of Gissel 14.1 (11.5-14.5) % Plt Count 164 (130-400) K/uL MPV 10.5 H (7.4-10.4) fL Immature Gran % (Auto) 0.5 % Neut % (Auto) 67.6 % Lymph % (Auto) 19.0 % [place] % (Auto) 10.1 % Eos % (Auto) 2.6 % Baso % (Auto) 0.2 % Neut # (Auto) 2.88 (1.4-6.5) K/uL Lymph # (Auto) 0.81 L (1.2-3.4) K/uL [place] # (Auto) 0.43 (0.11-0.59) K/uL Eos # (Auto) 0.11 (0-0.5) K/uL Baso # (Auto) 0.01 (0-0.2) K/uL Immature Gran # (Auto) 0.02 (0.00-0.02) K/uL Sodium 136 (136-145) mmol/L Potassium 4.7 (3.5-5.1) mmol/L Chloride 106 (98-107) mmol/L Carbon Dioxide 25 (21-32) mmol/L Anion Gap 5 (3-11) BUN 17 (6-23) mg/dl Creatinine 1.23 (0.6-1.4) mg/dl Est Cr Clr Drug Dosing 57.1 ml/min Est GFR ( Amer) 66.1 ml/min Est GFR (Non-Af Amer) 57.1 ml/min BUN/Creatinine Ratio 13.8 (10-20) Glucose 117 H (70-99(Fasting)) mg/dl POC Glucose 121 H (70-99) mg/dl Calcium 8.2 L (8.5-10.1) mg/dl 02/02/0607/26/21 07/26/21 Range/Units 20:44 17:13 11:56 WBC (4.8-10.8) K/uL RBC (4.7-6.1) M/uL Hgb (14.0-18.0) g/dL Hct (42-52) % MCV (80-100) fL MCH (25-34) pg MCHC (32-36) g/dL RDW Std Deviation (36.4-46.3) fL RDW Coeff of Gissel (11.5-14.5) % Plt Count (130-400) K/uL MPV (7.4-10.4) fL Immature Gran % (Auto) % Neut % (Auto) % Lymph % (Auto) % [place] % (Auto) % Eos % (Auto) % Baso % (Auto) % Neut # (Auto) (1.4-6.5) K/uL Lymph # (Auto) (1.2-3.4) K/uL [place] # (Auto) (0.11-0.59) K/uL Eos # (Auto) (0-0.5) K/uL Baso # (Auto) (0-0.2) K/uL Immature Gran # (Auto) (0.00-0.02) K/uL Sodium (136-145) mmol/L Potassium (3.5-5.1) mmol/L Chloride (98-107) mmol/L Carbon Dioxide (21-32) mmol/L Anion Gap (3-11) BUN (6-23) mg/dl Creatinine (0.6-1.4) mg/dl Est Cr Clr Drug Dosing ml/min Est GFR ( Amer) ml/min Est GFR (Non-Af Amer) ml/min BUN/Creatinine Ratio (10-20) Glucose (70-99(Fasting)) mg/dl POC Glucose 94 124 H 98 (70-99) mg/dl Calcium (8.5-10.1) mg/dl 07/26/21 Range/Units 11:15 WBC (4.8-10.8) K/uL RBC (4.7-6.1) M/uL Hgb (14.0-18.0) g/dL Hct (42-52) % MCV (80-100) fL MCH (25-34) pg MCHC (32-36) g/dL RDW Std Deviation (36.4-46.3) fL RDW Coeff of Gissel (11.5-14.5) % Plt Count (130-400) K/uL MPV (7.4-10.4) fL Immature Gran % (Auto) % Neut % (Auto) % Lymph % (Auto) % [place] % (Auto) % Eos % (Auto) % Baso % (Auto) % Neut # (Auto) (1.4-6.5) K/uL Lymph # (Auto) (1.2-3.4) K/uL Smith # (Auto) (0.11-0.59) K/uL Eos # (Auto) (0-0.5) K/uL Baso # (Auto) (0-0.2) K/uL Immature Gran # (Auto) (0.00-0.02) K/uL Sodium (136-145) mmol/L Potassium (3.5-5.1) mmol/L Chloride (98-107) mmol/L Carbon Dioxide (21-32) mmol/L Anion Gap (3-11) BUN (6-23) mg/dl Creatinine (0.6-1.4) mg/dl Est Cr Clr Drug Dosing ml/min Est GFR ( Amer) ml/min Est GFR (Non-Af Amer) ml/min BUN/Creatinine Ratio (10-20) Glucose (70-99(Fasting)) mg/dl POC Glucose 91 (70-99) mg/dl Calcium (8.5-10.1) mg/dl
[2021-07-27] MEDS ORDERED: VANCOMYCIN TROUGH ONE (10:30)
--- NOTE | 2021-07-27 12:33 | Pharmacy Report ---
Pharmacy Vanc AUC Short Note - Date of Service July 27, 2021 - Assessment & Plan Assessment * Mr Blanchard is a 76 year old M receiving Vancomycin/Cefepime for treatment of osteomyelitis. Pt is POD #1 s/p toe amputation. * Pertinent microbiologic data includes: Blood cx pending, L foot cx pending * Plan is to continue IV abx until discharge, and then transition to PO abx. * Vanc level obtained this morning, indicating that current regimen is appropriate. Plan Vancomycin * AUC/GAUDENCIO is the preferred PK/PD target for vancomycin * AUC guided dosing is effective and associated with decreased risk of nephrotoxicity compared to traditional trough targets * Trough level of 15.1 mcg/mL is predicted to achieve target AUC/GAUDENCIO of 400-600 mg/L.hr and may be associated with a 13% risk of nephrotoxicity * Continue dose of Vanc 1250 mg IV every 12 hours * No further levels have been ordered at this time. If patient remains hospitalized, will consider ordering additional levels in 1-2 days. Pharmacy will continue to follow and will adjust dose/frequency as necessary. Thank you.
[2021-07-27] MEDS: VANCOMYCIN HCL 1,250 MG in SODIUM CHLORIDE 0.9% 250 ML IV SCH ×2 (12:42→22:18)
--- NOTE | 2021-07-27 17:48 | Medical Student Progress Note ---
Date of Service July 27, 2021 Assessment & Plan (1) Cellulitis of foot associated with diabetes mellitus: Plan: 76 year old gentleman with a history of T2DM admitted for LLE cellulitis and osteomyelitis of his left second toe. His toe amputation was completed, and he is doing well. 1. Left 2nd toe osteomyelitis, LLE cellulitis: -ambulating well s/p L 2nd toe amputation -per ortho, continue IV vanc/cefepime today and start oral antibiotics tomorrow in anticipation for discharge -WBC count continues to be normal. BCx negative. -Arterial duplex without evidence of focal vessel occlusion -Oxycodone 5mg PO q8h prn 2. DM2: -Last A1c 7.8 -Continue basal/bolus insulin while admitted (Currently on 25u AM, 20u PM Lantus) -SSI with correction factor 15 and carb ratio 7 3. CAD, HLD: -s/p CABG x3 in 2019 at [facility] -Continue clopidogrel, metoprolol, atorvastatin 4. Cognitive impairment, unspecified psychosis history: -cooperative, affect appropriate, answers questions appropriately -continue home donepezil for history of mild cognitive impairment -Has several psychiatric diagnoses in chart including schizophrenia, bipolar disorder, ?schizoaffective disorder -Was hospitalized at a psychiatric facility in [place] in fall 2020 -Not currently on any psychiatric medications, does not have an outpatient psychiatrist FEN/GI: Carb-consistent/Heart healthy diet Code Status: full code DVT Prophylaxis: Lovenox Disposition: Med/Surg (2) Diabetic ulcer of toe: (3) Osteomyelitis: Laterality: unspecified laterality Osteomyelitis location: foot Osteomyelitis type: unspecified type Qualified Code(s): M86.9 - Osteomyelitis, unspecified (4) Hypertension: Hypertension type: essential hypertension Qualified Code(s): I10 - Essential (primary) hypertension (5) Hyperlipidemia: Hyperlipidemia type: unspecified Qualified Code(s): E78.5 - Hyperlipidemia, unspecified (6) CAD in [place] artery: Admission and Anticipated Discharge Date Admission Date: July 21, 2021 Supervising Attestation Medical Student Supervision Note: I was personally present during medical student patient encounter and independently interviewed and examined the patient and verified the schultz history and physical, reviewed labs and image studies, discussed the case with Hussein and agree with the findings and care plan. Doing well post op. continue IV abx Subjective Patient is doing well, no complaints. Reports he has been ambulating well. Review of Systems Review of Systems: per subjective Physical Exam Constitutional: WD/WN, vitals as above ENMT: external ear and nose normal, oropharynx normal Neck: trachea midline, no thyromegaly Respiratory: normal respiratory effort, lungs clear to auscultation Cardiovascular: Rate/Rhythm: regular rate and regular rhythm Heart Sounds: normal S1 and normal S2; no gallop, no murmur and no cardiac rub Musculoskeletal: L foot dressing clean, dry, intact Results & Data ([facility]) Vital Signs (Past 12 Hours) Vital Signs Temp Pulse Resp BP Pulse Ox 07/27/21 14:41 36.6 C 55 L 16 121/65 97 07/27/21 07:28 36.4 C L 47 L 16 120/67 96
[2021-07-28 06:23] LABS: Basophils # (auto) 0.01 K/uL (0-0.2); Basophils % (auto) 0.3 %; Eosinophils % (auto) 2.7 %; Hematocrit (blood only) 38.2 % (42-52); Hemoglobin 12.6 g/dL (14.0-18.0); Immature Granulocytes # (auto) 0.01 K/uL (0.00-0.02); Immature Granulocytes % (auto) 0.3 %; Lymphocytes # (auto) 0.82 K/uL (1.2-3.4); Lymphocytes % (auto) 21.9 %; Mean Corpuscular Hemoglobin 29.5 pg (25-34); Mean Corpuscular Volume 89.5 fL (80-100); Mean Platelet Volume 10.2 fL (7.4-10.4); Monocytes # (auto) 0.41 K/uL (0.11-0.59); Monocytes % (auto) 10.9 %; Neutrophils % (auto) 63.9 %; Platelet Count 161 K/uL (130-400); RDW Coefficient of Variation 14.1 % (11.5-14.5); RDW Standard Deviation 46.5 fL (36.4-46.3); Red Blood Count 4.27 M/uL (4.7-6.1); White Blood Count 3.75 K/uL (4.8-10.8)
[2021-07-28 06:39] LABS: Est GFR (African American) 68.8 ml/min; Est GFR (Non-African American) 59.4 ml/min
[2021-07-28] MEDS: DONEPEZIL HCL 10 MG TAB PO SCH (08:18)
[2021-07-28] MEDS: CYANOCOBALAMIN (B-12) 500 MCG TABLET PO SCH (08:18)
[2021-07-28] MEDS: ATORVASTATIN 40 MG TAB PO SCH (08:18)
[2021-07-28] MEDS: ENOXAPARIN INJ 40 MG/0.4 ML SYR SQ SCH (08:19)
[2021-07-28] MEDS: METOPROLOL SUCC 25MG EXT REL TAB PO SCH (08:19)
[2021-07-28] MEDS: PANTOprazole 40 MG TAB PO SCH (08:20)
[2021-07-28] MEDS: INSULIN ASPART PER UNIT SC SCH ×2 (08:48→13:38)
[2021-07-28] MEDS: INSULIN GLARGINE SOLOSTAR 100 UNITS/ML 3 ML PEN SC SCH (08:49)
[2021-07-28] MEDS: CEFEPIME 2,000 MG in SYRINGE 0 ML IV SCH (11:14)
[2021-07-28] MEDS: VANCOMYCIN HCL 1,250 MG in SODIUM CHLORIDE 0.9% 250 ML IV SCH (11:20)
--- NOTE | 2021-07-28 12:27 | Orthopedic Progress Note ---
Date of Service July 28, 2021 Assessment & Plan (1) Diabetic ulcer of toe: Plan: Postop day 2-status post left second toe amputation with Dr. Boyd on July 26, 2021. He may weight-bear as tolerated on left heel with postop shoe in place. May remove the postop shoe when in bed but needs to have it on when out of bed. Encouraged frequent ambulation for stamina and strength but frequent rests also with elevating the left foot. Encourage strict elevation when at rest of the left foot. Dressings changed today, advised to leave on left foot at all times. Will discontinue Lovenox, no DVT prophylaxis warranted, just mobilization. Start Cipro 500mg BID today and will discontinue IV antibiotics. He should be on the Cipro for 5 days. Okay from ortho standpoint for discharge today. He will follow-up as scheduled early next week for repeat dressing change. Case management for disposition needs. He states he has a friend to help at home and no dressing changes currently needed. Patient understands and agrees with the plan. Admission and Anticipated Discharge Date Admission Date: July 21, 2021 Subjective Patient is doing well, no complaints. Reports he has been ambulating well. Sitting in chair today. Tolerating regular diet. Physical Exam Musculoskeletal: left foot dressing removed, incision of left 2nd toe, clean, dry and intact. Sutures retained, no active drainage. Mild bloody dried drainage on dressings. Mild edema of left 2nd toe. cap refill brisk. Rest of toes and foot minimal edema, skin intact, no erythema. Results & Data ([facility]) Vital Signs (Past 12 Hours) Vital Signs Temp Pulse Resp BP Pulse Ox 07/28/21 11:40 36.8 C 65 18 115/70 99 07/28/21 07:20 36.5 C 60 16 120/70 96 Laboratory Results 07/28/21 07/28/21 07/28/21 Range/Units 12:05 08:17 06:03 WBC (4.8-10.8) K/uL RBC (4.7-6.1) M/uL Hgb (14.0-18.0) g/dL Hct (42-52) % MCV (80-100) fL MCH (25-34) pg MCHC (32-36) g/dL RDW Std Deviation (36.4-46.3) fL RDW Coeff of Gissel (11.5-14.5) % Plt Count (130-400) K/uL MPV (7.4-10.4) fL Immature Gran % (Auto) % Neut % (Auto) % Lymph % (Auto) % [place] % (Auto) % Eos % (Auto) % Baso % (Auto) % Neut # (Auto) (1.4-6.5) K/uL Lymph # (Auto) (1.2-3.4) K/uL [place] # (Auto) (0.11-0.59) K/uL Eos # (Auto) (0-0.5) K/uL Baso # (Auto) (0-0.2) K/uL Immature Gran # (Auto) (0.00-0.02) K/uL Creatinine 1.19 (0.6-1.4) mg/dl Est Cr Clr Drug Dosing 59.0 ml/min Est GFR ( Amer) 68.8 ml/min Est GFR (Non-Af Amer) 59.4 ml/min POC Glucose 132 H 102 H (70-99) mg/dl 07/28/21 07/27/21 07/27/21 Range/Units 06:03 20:39 17:03 WBC 3.75 L (4.8-10.8) K/uL RBC 4.27 L (4.7-6.1) M/uL Hgb 12.6 L (14.0-18.0) g/dL Hct 38.2 L (42-52) % MCV 89.5 (80-100) fL MCH 29.5 (25-34) pg MCHC 33.0 (32-36) g/dL RDW Std Deviation 46.5 H (36.4-46.3) fL RDW Coeff of Gissel 14.1 (11.5-14.5) % Plt Count 161 (130-400) K/uL MPV 10.2 (7.4-10.4) fL Immature Gran % (Auto) 0.3 % Neut % (Auto) 63.9 % Lymph % (Auto) 21.9 % [place] % (Auto) 10.9 % Eos % (Auto) 2.7 % Baso % (Auto) 0.3 % Neut # (Auto) 2.40 (1.4-6.5) K/uL Lymph # (Auto) 0.82 L (1.2-3.4) K/uL [place] # (Auto) 0.41 (0.11-0.59) K/uL Eos # (Auto) 0.10 (0-0.5) K/uL Baso # (Auto) 0.01 (0-0.2) K/uL Immature Gran # (Auto) 0.01 (0.00-0.02) K/uL Creatinine (0.6-1.4) mg/dl Est Cr Clr Drug Dosing ml/min Est GFR ( Amer) ml/min Est GFR (Non-Af Amer) ml/min POC Glucose 150 H 87 (70-99) mg/dl
--- NOTE | 2021-07-28 12:28 | Medical Student Progress Note ---
Date of Service July 28, 2021 Assessment & Plan (1) Cellulitis of foot associated with diabetes mellitus: Plan: 76 year old gentleman with a history of T2DM admitted for LLE cellulitis and osteomyelitis of his left second toe s/p toe amputation. He is doing well. 1. Left 2nd toe osteomyelitis, LLE cellulitis: -ambulating well s/p L 2nd toe amputation -per ortho, continue IV vanc/cefepime today and start oral antibiotics tomorrow in anticipation for discharge -WBC count continues to be normal. BCx negative. -Arterial duplex without evidence of focal vessel occlusion -Oxycodone 5mg PO q8h prn 2. DM2: -Last A1c 7.8 -Continue basal/bolus insulin while admitted (Currently on 25u AM, 20u PM Lantus) -SSI with correction factor 15 and carb ratio 7 3. CAD, HLD: -s/p CABG x3 in [address] [facility] -Continue clopidogrel, metoprolol, atorvastatin 4. Cognitive impairment, unspecified psychosis history: -cooperative, affect appropriate, answers questions appropriately -continue home donepezil for history of mild cognitive impairment -Has several psychiatric diagnoses in chart including schizophrenia, bipolar disorder, ?schizoaffective disorder -Was hospitalized at a psychiatric facility in [place] in fall 2020 -Not currently on any psychiatric medications, does not have an outpatient psychiatrist FEN/GI: Carb-consistent/Heart healthy diet Code Status: full code DVT Prophylaxis: Lovenox Disposition: Med/Surg (2) Diabetic ulcer of toe: (3) Osteomyelitis: Laterality: unspecified laterality Osteomyelitis location: foot Osteomyelitis type: unspecified type Qualified Code(s): M86.9 - Osteomyelitis, unspecified (4) Hypertension: Hypertension type: essential hypertension Qualified Code(s): I10 - Essential (primary) hypertension (5) Hyperlipidemia: Hyperlipidemia type: unspecified Qualified Code(s): E78.5 - Hyperlipidemia, unspecified (6) CAD in [place] artery: Admission and Anticipated Discharge Date Admission Date: July 21, 2021 Subjective Patient is doing well, no complaints. Reports he has been ambulating well. Would like to go home today. Confirmed with patient that he has someone to help change his dressing and drive him to appointments. He also confirmed that he is able to live all on one floor and only needs to take one step to enter his home, which he feels confident he can do with his cane. Review of Systems Review of Systems: per subjective Physical Exam Constitutional: WD/WN, vitals as above ENMT: external ear and nose normal, oropharynx normal Neck: trachea midline, no thyromegaly Respiratory: normal respiratory effort, lungs clear to auscultation Cardiovascular: Rate/Rhythm: regular rate and regular rhythm Heart Sounds: normal S1 and normal S2; no gallop, no murmur and no cardiac rub Musculoskeletal: L foot dressing clean, dry, intact. Wearing a boot. Leg erythema improved. Results & Data ([facility]) Vital Signs (Past 12 Hours) Vital Signs Temp Pulse Resp BP Pulse Ox 07/28/21 11:40 36.8 C 65 18 115/70 99 07/28/21 07:20 36.5 C 60 16 120/70 96
--- NOTE | 2021-07-28 13:59 | Med Student Discharge Summary ---
Date of Service July 28, 2021 Admission HPI Per Admitting Provider Tian Blanchard is a 76 year old male who presents to the ER with left leg infection. He reports initial injury 2 days ago he was walking around a lot. He has diabetes with reduced sensation in his foot therefore only noticed an open area after he took his shoes off. He soaked it in Epsom salts and vinegar but has not taken any antibiotics for this. Today his leg became painful as erythema rapidly spread up his leg and he started having fever and chills. He saw his PCP today who advised he comes to the ER for intravenous antibiotics. He reports taking Eliquis to me although [facility] and this did not come up on the [employer] pharmacy student, I see no medical condition he requires this for and it is not in prior cardiology notes. He denies any prior history of DVTs or PEs. In the ER; XR confirmed osteomyelitis of his 2nd left toe and he was given vancomycin 1750mg IV. He was referred to medicine for admission and ongoing management of osteomyelitis. Admission Exam (Per Admitting) Constitutional WD/WN, vitals as above Eyes PERRL, conjunctivae normal, anicteric sclerae Neck trachea midline, no thyromegaly Respiratory normal respiratory effort, lungs clear to auscultation Cardiovascular RRR, no murmur, no edema Gastrointestinal (Abdomen) normal bowel sounds, soft, nontender, no hepatosplenomegaly Psychiatric Orientation: alert and oriented x 3 Affect: euthymic affect Constitutional WD/WN, vitals as above Eyes PERRL, conjunctivae normal, anicteric sclerae Neck trachea midline, no thyromegaly Respiratory normal respiratory effort, lungs clear to auscultation Cardiovascular RRR, no murmur, no edema Gastrointestinal (Abdomen) normal bowel sounds, soft, nontender, no hepatosplenomegaly Musculoskeletal Left foot dressing clean, dry, intact. Lower leg erythema improved. Skin warm, dry, well-perfused Psychiatric Orientation: alert and oriented x 3 Affect: euthymic affect Discharge Data Consultations 07/21/21 15:43 ED Decision to Admit Stat 07/21/21 17:19 Consult Orthopedic Surgery Routine Procedures Performed Operation Date: 07/26/21 08:20 Actual Procedures p Left 2nd Toe Amputation(Left) - David Boyd MD Hospital Course (1) Cellulitis of foot associated with diabetes mellitus: Tian Blanchard is a 76 year old gentleman with a history of T2DM admitted for LLE cellulitis and osteomyelitis of his left second toe, which was amputated on 07/26/2021. Left 2nd toe osteomyelitis, LLE cellulitis - presented with chills, fever, foot pain and erythema - ambulating well s/p L 2nd toe amputation on 07/26/2021 - Arterial duplex without evidence of focal vessel occlusion - received IV vanc/cefepime - discharged on PO Ciprofloxacin BID for 5 days - ortho following, appointment next week (2) Diabetic ulcer of toe: (3) Osteomyelitis: (4) Hypertension: (5) Hyperlipidemia: (6) CAD in [place] artery: Discharge Plan Discharge Items Patient Disposition: Home - Self-Care Reason For Visit: OSTEOMYELITIS Discharge Diagnosis: left second toe osteomyelitis Activity: Per Instructions section Weightbearing: Left weightbearing Weightbearing Comment: on heel of left foot with post op shoe on at all times. Non-emergency contact: Surgeon Call non-emergency contact if: your symptoms worsen, your pain is not controlled, your pain is worsening, your temperature is above 101, your wound has increased redness and your wound has increased drainage Follow-up/Referrals: Fox Moran MD [Primary Care Provider] - 08/05/21 9:00 am (hospital discharge f/u within 1 wk) Shaina Hernandez PA-C [Physician Floor Care Technician] - 08/02/21 10:45 am Diet: Carb Consistent or DM2 Addtl Attending Provider Instructions: Hi Mr. Blanchard, You were seen at [facility] on 07/21/21 for osteomyelitis (bone infection) of your left second toe. You were treated with IV antibiotics and an amputation was performed. You will complete a 5 day course of ciprofloxacin. Please follow-up with Dr. Moran on 08/05/21. Please hold off on taking aricept (Donepezil) while you are taking ciprofloxacin due to medication interaction Addtl Vtc Technician Provider Instructions: Weight bear as tolerated left foot with weight on left heel. Wear post op shoe at all times when out of bed. Use walker as needed to assist with ambulation. Ice to left foot as needed for pain/swelling. Strict elevation of left foot when at rest to prevent swelling. Allowed for range of motion left ankle, left knee or left hip as tolerated. Follow up with Dr. Boyd's office as scheduled. cipro 500mg BID x 5 days Pain medication as prescribed or as needed. Pending Studies at Discharge: No Stand-Alone Forms: [facility] [employer], Smoking Cessation Medications and DC Order Prescriptions: New ciprofloxacin HCl 500 mg Tablet 500 mg PO BID Qty: 10 RF: 0 oxycodone 5 mg Tablet 5 mg PO Q8H PRN (Reason: pain) Qty: 12 RF: 0 Continued pantoprazole 40 mg tablet,delayed release (DR/EC) 40 mg PO QAM Qty: 90 RF: 3 donepezil 10 mg tablet 10 mg PO QAM Qty: 90 RF: 3 atorvastatin 40 mg tablet 40 mg PO QAM Qty: 90 RF: 3 (DME) FreeStyle Kirk 14 Day Sensor Kit See Rx Instructions .ROUTE .MEDSUPPLY Qty: 2 RF: 5 (DME) pen needle, diabetic [BD Ultra-Fine Mini Pen Needle] 31 gauge x 3/16" needle See Rx Instructions .Route Qty: 400 RF: 3 insulin lispro [Humalog KwikPen Insulin] 100 unit/mL insulin pen 10 - 20 unit SQ QID RF: 0 Lantus Solostar U-100 Insulin 100 unit/mL (3 mL) insulin pen 46 unit subcut QPM RF: 0 metoprolol succinate [Toprol XL] 25 mg tablet extended release 24 hr 25 mg PO DAILY RF: 0 acetaminophen [Tylenol Extra Strength] 500 mg tablet 1,000 mg PO Q8H PRN (Reason: Pain) RF: 0 cyanocobalamin (vitamin B-12) [Vitamin B-12] 1,000 mcg Tablet 1,000 mcg PO QAM RF: 0 nitroglycerin [Nitrostat] 0.4 mg Tablet, Sublingual 0.4 mg sublingual UD PRN (Reason: Chest Pain) RF: 0 Discharge Orders: Discharge Order (Routine); Ordered 07/28/21 Ordered By: Zeny Ruiz/Other Patient Handouts: Nutrition for Wound Healing, Managing Type 2 Norah betes, Osteomyelitis Dc, Blood Sugar Check Steps Admission Data Admit Date/Time: 07/21/21 19:13 Attending Provider: Zeny Frey Admit Provider: Wil Cunningham Primary Care Provider: Fox Moran Other Providers: Wil Cunningham ; David Boyd Other Interventions: Discharge Summary Assessment (RN) Last Done: 07/28/21 14:25 Supervising Attestation Medical Student Supervision Note: I was personally present during medical student patient encounter and independently interviewed and examined the patient and verified the schultz history and physical, reviewed labs and image studies, discussed the case with Hussein Bañuelos and agree with the findings and care plan. s/p toe amputation for osteomyelitis. oral abx on discharge. wound care at home. follow up with ortho
[2021-07-28] MEDS ORDERED: CIPROFLOXACIN 500 MG TAB PO SCH (21:00)
== END 2021-07-28 15:00 | disposition home or self-care (01) | DRG 617 ==
LOC: ED 13:55 → SUATTDRO 19:13 → 3W 19:13

== ENCOUNTER 2021-11-05 00:11 | Inpatient (IN) ==
[2021-11-05] MEDS ORDERED: SODIUM CHLORIDE 0.9% 500 ML IV ONE (01:11)
[2021-11-05] MEDS ORDERED: ACETAMINOPHEN 500 MG TAB PO STA (01:12)
--- NOTE | 2021-11-05 01:16 | Emergency Department Note ---
Impression & Plan Sepsis, Suicidal ideation Admit to the [facility] service ED Provider Note NAME: EMANUEL GRANT AGE: 76 SEX: M ARRIVES VIA: Walk-In INFORMANT: Patient ED PROVIDER(S): Bere Mullins DO CHIEF COMPLAINT: High fever PLAN: Disposition: Admit to the [facility] service on a one-to-one precautions Condition: Fair MEDICAL DECISION MAKING: This is a 76-year-old male patient with history of multiple health problems who presents to the emergency department with a high fever. Patient made multiple suicidal statements to nursing staff upon arrival. Patient had complete septic work-up performed. Source is unknown. The patient does have a dressing on the left foot but states that his wound there has been well-healing. The patient was bolused with 1.5 L of normal saline solution as he did have 1 episode of hypotension while here in the emergency department. I did not give him a full 30ml/kgbolus of saline as he does have some edema in his lower extremities. [facility] was treated with IV cefepime and will receive additional IV antibiotics as an inpatient. Triage Nursing notes reviewed and agree with them. Prior medical records reviewed Vital Signs: reviewed and remarkable for tachycardia and fever Differential diagnosis: UTI, sepsis, COVID, pneumonia, lower extremity infected wounds ER treatment provided: IV normal saline bolus Oral Tylenol IV cefepime Diagnostics interpreted by me: ECG: Sinus tachycardia at a rate of 106 with a right bundle branch block and significant Q waves. There is no obvious ST segment elevation or signs of ischemia Cardiac Monitoring: Sinus tachycardia at 101 Laboratory studies: See below I will have the SALES MARKETING COORDINATOR review get home Imaging studies: As per my interpretation See below HPI: 76/M arrives for evaluation of high fever. This is a 76-year-old male patient presents emergency department with a high fever since 5 PM this evening. He also noticed that his blood sugars have gone very high. The patient has a history of previous urinary tract infections because of prostate problems as well as pneumonia. ROS: See above HPI for pertinent positives & negatives. A total of 10 systems reviewed and were otherwise negative. PAST MEDICAL HISTORY:See Below PAST SURGICAL HISTORY:See Below FAMILY HISTORY:See Below SOCIAL HISTORY:See Below HOME MEDICATIONS:See list ALLERGIES:See list VITALS:See Below PHYSICAL EXAMINATION: HEENT: Head - normocephalic and atraumatic Pupils are equal, round, and r eactive to light. Extraocular eye muscles are intact, and sclera are anicteric. Nose - moist nasal mucosa without discharge. Mouth - moist buccal mucosa. Oropharynx is nonerythematous and there is no tonsillar exudate or edema noted. Neck: Supple; no JVD or cervical lymphadenopathy a septic protocol was performed Heart: Regular rate and rhythm. There is a normal S1 and S2 with no murmurs, cl icks, or gallops appreciated. Lungs: Clear to auscultation bilaterally with no wheezes, rales, or rhonchi. Abdomen: Soft, completely nontender, nondistended, with good bowel sounds. There are no palpable pulsatile masses or hepatosplenomegaly. There is no guarding, rigidity, or rebound noted. Extremities: No evidence of cyanosis, clubbing, or edema. The patient has a dressing to the left foot. There is some mild erythema to the right lower extremity with trace edema noted to both lower legs. Skin: warm and dry with good turgor and no rashes. ED COURSE: Times/Reassessments: 0055: The patient was evaluated in room A4. A complete history and physical was performed. A twelve-lead EKG was obtained. An order was placed for continuous cardiac monitoring. The patient was in a sinus tachycardia at 101 A COVID test was performed and was negative. A portable chest x-ray was performed. The patient was bolused with 500 cc of saline and then he received an additional liter of saline as he had an episode of hypotension. The patient was started on IV cefepime prophylactically. He was given oral Tylenol for his fever. I discussed the case with the [facility] Hospitalist and they will evaluate for further management. 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 Mejia Nephrolithiasis Neurological deficit present Neuropathy Osteoarthritis Raynauds phenomenon Stroke HX X 2-11/2004 AND 09/2019-F/U DR NÚÑEZ Tubular adenoma of colon Venous (peripheral) insufficiency Venous stasis ulcers of both lower extremities Vitamin D deficiency Weakness Wound of left foot Surgical History History of ankle surgery History of arthroscopy of left knee History of cardiac cath x4-5, last 05/19/2019 [facility] NO RECENT STENTS History of carpal tunnel release of both wrists History of colonoscopy History of heart artery stent (1998) History of lithotripsy x2 History of lumbar discectomy x2 History of open reduction and internal fixation (ORIF) procedure left ankle--hardware in place History of right cataract extraction History of tonsillectomy and adenoidectomy S/P sinus surgery Status post uvulopalatopharyngoplasty Family History Father , age 74 of an ND Diabetes Prostate cancer Colorectal cancer Myocardial infarction Brother Prostate cancer Uncle Colorectal cancer Father Myocardial infarction Mother Myocardial infarction Stroke Other Dementia No family history of adverse response to anesthesia Denies family history of Ovarian cancer Breast cancer Social History Smoking Status: Former smoker Tobacco Type: Cigarettes Age Quit Using Tobacco: 71; packs per day: 3; Cigarettes Per Day: 3; Second Hand Exposure: No; Do You Dip or Chew Tobacco: No; Hx Alcohol Use: No Hx Substance Use: No Preferred Language: Hungarian Communication Ability: Effective Visual Impairment: No Limitations Hearing Ability: Normal Hand Picker Required: No Beliefs That Will Affect Care: None marital status: marital status details: 3 children Current Living Situation: Alone current occupational status: retired 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 How many Children do You have: 1 Other Information That Helps Us Care for You: No other: 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); chemical exposure Feels Safe at Home: Yes Safety Concerns: Feels Safe At This Time Childhood Exposure to Second-Hand Smoke: Yes Dental Care, Regularly: Yes Physical Activity Frequency: Daily Seatbelt Use: always Sunscreen Use: No Assistive Devices: Glasses and Special Shoe Allergies Allergies Allergy/AdvReac Type Severity Reaction Status Date / Time morphine AdvReac Severe "STOPS MY Verified 11/04/21 12:09 HEART" diazepam AdvReac Intermediate HALLUCINATE Verified 11/04/21 12:09 S hydromorphone [From Dilaudid] AdvReac Intermediate unresponsiv Verified 11/04/21 12:09 eness propoxyphene AdvReac Intermediate DRUG Verified 11/04/21 12:09 INTOLERANCE trazodone AdvReac Intermediate GI UPSET Verified 11/04/21 12:09 Home Meds Home Medications Medication Instructions Recorded Confirmed acetaminophen 500 mg tablet 1,000 mg PO Q8H PRN 06/05/19 10/17/21 (Tylenol Extra Strength) nitroglycerin 0.4 mg sublingual 0.4 mg SUBLINGUAL UD PRN 11/04/20 10/17/21 tablet (Nitrostat) clopidogrel 75 mg tablet 75 mg PO DAILY 08/05/21 10/17/21 cyanocobalamin (vitamin B-12) 1,000 mcg PO QAM 08/10/21 10/17/21 1,000 mcg tablet (Vitamin B-12) ozgdcelg-pcq-qmicy acid 300 1 tab PO DAILY 09/01/21 10/17/21 mcg-lycopene 600 mcg-lutein 300 mcg tablet (Centrum Silver Men) Super Beta Prostate 1 tab PO DAILY 09/05/21 10/17/21 insulin glargine 100 unit/mL (3 15 unit SUBCUT QPM ml 10/12/21 10/17/21 mL) subcutaneous pen (Lantus Solostar U-100 Insulin) insulin lispro 100 unit/mL 5 - 7 unit SQ TID ml 10/12/21 10/17/21 subcutaneous pen (Humalog KwikPen (U-100) Insulin) Previous Rx's Medication Instructions Recorded atorvastatin 40 mg tablet 40 mg PO QAM #90 tab 12/01/20 pen needle, diabetic 31 gauge x #400 ea 07/11/2108/31" (BD Ultra-Fine Mini Pen Needle) pantoprazole 40 mg tablet,delayed 40 mg PO QAM #90 tab 08/05/21 release blood sugar diagnostic (OneTouch #100 ea 08/26/21 Ultra Test) flash glucose sensor (FreeStyle See Rx Instructions .ROUTE 11/04/21 Kirk 14 Day Sensor) .COMPLEX #2 kit Results & Data (ED) Vital Signs Vital Signs - 24 hr 11/05/21 19:33 11/05/21 22:58 11/06/21 07:28 Temperature 36.8 C 36.9 C Temperature Source Oral Oral Pulse Rate 77 Pulse Rate [Finger] 86 90 Pulse Rhythm [Finger] Regular Pulse Strength [Finger] Normal Respiratory Rate 16 20 Respiratory Effort / Characteristics Non-Labored Respiratory Depth Normal Respiratory Pattern Regular Blood Pressure [Right Arm] 101/67 116/67 Blood Pressure Mean [Right Arm] 78 83 Blood Pressure Position [Right Arm] Sitting Pulse Oximetry 96 95 Oxygen Delivery Method Room Air Room Air 11/06/21 08:00 Temperature Temperature Source Pulse Rate 87 Pulse Rate [Finger] Pulse Rhythm [Finger] Pulse Strength [Finger] Respiratory Rate Respiratory Effort / Characteristics Respiratory Depth Respiratory Pattern Blood Pressure [Right Arm] Blood Pressure Mean [Right Arm] Blood Pressure Position [Right Arm] Pulse Oximetry Oxygen Delivery Method Laboratory Data Result diagrams: 11/06/21 06:11 11/06/21 06:11 Lab Results 11/05/21 11/05/21 11/05/21 Range/Units 00:25 01:12 01:12 WBC 11.32 H (4.8-10.8) K/uL RBC 4.35 L (4.7-6.1) M/uL Hgb 13.8 L (14.0-18.0) g/dL Hct 40.0 L (42-52) % MCV 92.0 (80-100) fL MCH 31.7 (25-34) pg MCHC 34.5 (32-36) g/dL RDW Std Deviation 49.5 H (36.4-46.3) fL RDW Coeff of Gissel 14.5 (11.5-14.5) % Plt Count 175 (130-400) K/uL MPV 10.7 H (7.4-10.4) fL Immature Gran % (Auto) 0.2 % Neut % (Auto) 92.9 % Lymph % (Auto) 3.0 % [place] % (Auto) 3.1 % Eos % (Auto) 0.7 % Baso % (Auto) 0.1 % Neut # (Auto) 10.52 H (1.4-6.5) K/uL Lymph # (Auto) 0.34 L (1.2-3.4) K/uL [place] # (Auto) 0.35 (0.11-0.59) K/uL Eos # (Auto) 0.08 (0-0.5) K/uL Baso # (Auto) 0.01 (0-0.2) K/uL Immature Gran # (Auto) 0.02 (0.00-0.02) K/uL ESR (0-20) mm/hr PT 11.5 (9.0-12.0) Seconds INR 1.1 (0.9-1.1) APTT 24.5 (21.0-31.0) Seconds PTT Ratio 0.9 Sodium (136-145) mmol/L Potassium (3.5-5.1) mmol/L Chloride (98-107) mmol/L Carbon Dioxide (21-32) mmol/L Anion Gap (3-11) BUN (6-23) mg/dl Creatinine (0.6-1.4) mg/dl Est Cr Clr Drug Dosing ml/min Est GFR ( Amer) ml/min Est GFR (Non-Af Amer) ml/min BUN/Creatinine Ratio (10-20) Glucose (70-99(Fasting)) mg/dl POC Glucose 196 H (70-99) mg/dl Lactate (0.4-2.0) mmol/L Calcium (8.5-10.1) mg/dl Magnesium (1.7-2.4) mg/dl Total Bilirubin (0.2-1.0) mg/dl AST (13-39) U/L ALT (7-52) U/L Alkaline Phosphatase (34-104) U/L Troponin I High Sens (0-20) pg/ml C-Reactive Protein (0-0.5) mg/dl Total Protein (6.0-8.3) gm/dl Albumin (3.4-5.0) gm/dl Globulin (2.5-4.0) gm/dl Albumin/Globulin Ratio (0.9-2) Procalcitonin (0-0.5) ng/ml Urine Color Urine Appearance (Clear) Urine pH (4.5-7.5) Ur Specific [place] (1.000-1.030) Urine Protein (Negative) Urine Glucose (UA) (Negative) Urine Ketones (Negative) Urine Blood (Negative) Urine Nitrite (Negative) Urine Bilirubin (Negative) Urine Urobilinogen (Negative) Ur Leukocyte Esterase (Negative) Urine WBC (Auto) (0-5) /hpf Urine RBC (Auto) (0-4) /hpf U Hyaline Cast (Auto) (0-5) /lpf U Epithel Cells (Auto) (0-5) /lpf Urine Bacteria (Auto) (Negative) SARS-CoV-2 (PCR) (Negative) Influenza Type A (PCR) (Neg) Influenza Type B (PCR) (Neg) RSV (RT-PCR) (Neg) 11/05/21 11/05/21 11/05/21 Range/Units 01:12 01:12 01:12 WBC (4.8-10.8) K/uL RBC (4.7-6.1) M/uL Hgb (14.0-18.0) g/dL Hct (42-52) % MCV (80-100) fL MCH (25-34) pg MCHC (32-36) g/dL RDW Std Deviation (36.4-46.3) fL RDW Coeff of Gissel (11.5-14.5) % Plt Count (130-400) K/uL MPV (7.4-10.4) fL Immature Gran % (Auto) % Neut % (Auto) % Lymph % (Auto) % [place] % (Auto) % Eos % (Auto) % Baso % (Auto) % Neut # (Auto) (1.4-6.5) K/uL Lymph # (Auto) (1.2-3.4) K/uL [place] # (Auto) (0.11-0.59) K/uL Eos # (Auto) (0-0.5) K/uL Baso # (Auto) (0-0.2) K/uL Immature Gran # (Auto) (0.00-0.02) K/uL ESR (0-20) mm/hr PT (9.0-12.0) Seconds INR (0.9-1.1) APTT (21.0-31.0) Seconds PTT Ratio Sodium 135 L (136-145) mmol/L Potassium 4.3 (3.5-5.1) mmol/L Chloride 104 (98-107) mmol/L Carbon Dioxide 23 (21-32) mmol/L Anion Gap 8 (3-11) BUN 19 (6-23) mg/dl Creatinine 1.46 H (0.6-1.4) mg/dl Est Cr Clr Drug Dosing 43.7 ml/min Est GFR ( Amer) 53.8 ml/min Est GFR (Non-Af Amer) 46.4 ml/min BUN/Creatinine Ratio 13.0 (10-20) Glucose 192 H (70-99(Fasting)) mg/dl POC Glucose (70-99) mg/dl Lactate 1.8 (0.4-2.0) mmol/L Calcium 8.6 (8.5-10.1) mg/dl Magnesium 1.8 (1.7-2.4) mg/dl Total Bilirubin 0.9 (0.2-1.0) mg/dl AST 18 (13-39) U/L ALT 22 (7-52) U/L Alkaline Phosphatase 61 (34-104) U/L Troponin I High Sens (0-20) pg/ml C-Reactive Protein (0-0.5) mg/dl Total Protein 5.8 L (6.0-8.3) gm/dl Albumin 3.5 (3.4-5.0) gm/dl Globulin 2.3 L (2.5-4.0) gm/dl Albumin/Globulin Ratio 1.5 (0.9-2) Procalcitonin 0.25 (0-0.5) ng/ml Urine Color Urine Appearance (Clear) Urine pH (4.5-7.5) Ur Specific [place] (1.000-1.030) Urine Protein (Negative) Urine Glucose (UA) (Negative) Urine Ketones (Negative) Urine Blood (Negative) Urine Nitrite (Negative) Urine Bilirubin (Negative) Urine Urobilinogen (Negative) Ur Leukocyte Esterase (Negative) Urine WBC (Auto) (0-5) /hpf Urine RBC (Auto) (0-4) /hpf U Hyaline Cast (Auto) (0-5) /lpf U Epithel Cells (Auto) (0-5) /lpf Urine Bacteria (Auto) (Negative) SARS-CoV-2 (PCR) (Negative) Influenza Type A (PCR) (Neg) Influenza Type B (PCR) (Neg) RSV (RT-PCR) (Neg) 11/05/21 11/05/21 11/05/21 Range/Units 02:22 02:22 06:45 WBC (4.8-10.8) K/uL RBC (4.7-6.1) M/uL Hgb (14.0-18.0) g/dL Hct (42-52) % MCV (80-100) fL MCH (25-34) pg MCHC (32-36) g/dL RDW Std Deviation (36.4-46.3) fL RDW Coeff of Gissel (11.5-14.5) % Plt Count (130-400) K/uL MPV (7.4-10.4) fL Immature Gran % (Auto) % Neut % (Auto) % Lymph % (Auto) % [place] % (Auto) % Eos % (Auto) % Baso % (Auto) % Neut # (Auto) (1.4-6.5) K/uL Lymph # (Auto) (1.2-3.4) K/uL [place] # (Auto) (0.11-0.59) K/uL Eos # (Auto) (0-0.5) K/uL Baso # (Auto) (0-0.2) K/uL Immature Gran # (Auto) (0.00-0.02) K/uL ESR (0-20) mm/hr PT (9.0-12.0) Seconds INR (0.9-1.1) APTT (21.0-31.0) Seconds PTT Ratio Sodium (136-145) mmol/L Potassium (3.5-5.1) mmol/L Chloride (98-107) mmol/L Carbon Dioxide (21-32) mmol/L Anion Gap (3-11) BUN (6-23) mg/dl Creatinine (0.6-1.4) mg/dl Est Cr Clr Drug Dosing ml/min Est GFR ( Amer) ml/min Est GFR (Non-Af Amer) ml/min BUN/Creatinine Ratio (10-20) Glucose (70-99(Fasting)) mg/dl POC Glucose (70-99) mg/dl Lactate (0.4-2.0) mmol/L Calcium (8.5-10.1) mg/dl Magnesium (1.7-2.4) mg/dl Total Bilirubin (0.2-1.0) mg/dl AST (13-39) U/L ALT (7-52) U/L Alkaline Phosphatase (34-104) U/L Troponin I High Sens 26.4 H (0-20) pg/ml C-Reactive Protein (0-0.5) mg/dl Total Protein (6.0-8.3) gm/dl Albumin (3.4-5.0) gm/dl Globulin (2.5-4.0) gm/dl Albumin/Globulin Ratio (0.9-2) Procalcitonin (0-0.5) ng/ml Urine Color Yellow Urine Appearance Clear (Clear) Urine pH 6.0 (4.5-7.5) Ur Specific [place] 1.018 (1.000-1.030) Urine Protein Negative (Negative) Urine Glucose (UA) Negative (Negative) Urine Ketones Negative (Negative) Urine Blood Negative (Negative) Urine Nitrite Negative (Negative) Urine Bilirubin Negative (Negative) Urine Urobilinogen Negative (Negative) Ur Leukocyte Esterase Trace H (Negative) Urine WBC (Auto) 1-5 (0-5) /hpf Urine RBC (Auto) 0-4 (0-4) /hpf U Hyaline Cast (Auto) 1-5 (0-5) /lpf U Epithel Cells (Auto) 0-5 (0-5) /lpf Urine Bacteria (Auto) Negative (Negative) SARS-CoV-2 (PCR) NEGATIVE (Negative) Influenza Type A (PCR) Negative (Neg) Influenza Type B (PCR) Negative (Neg) RSV (RT-PCR) Negative (Neg) 11/05/21 11/05/21 11/05/21 Range/Units 06:45 07:42 11:08 WBC (4.8-10.8) K/uL RBC (4.7-6.1) M/uL Hgb (14.0-18.0) g/dL Hct (42-52) % MCV (80-100) fL MCH (25-34) pg MCHC (32-36) g/dL RDW Std Deviation (36.4-46.3) fL RDW Coeff of Gissel (11.5-14.5) % Plt Count (130-400) K/uL MPV (7.4-10.4) fL Immature Gran % (Auto) % Neut % (Auto) % Lymph % (Auto) % [place] % (Auto) % Eos % (Auto) % Baso % (Auto) % Neut # (Auto) (1.4-6.5) K/uL Lymph # (Auto) (1.2-3.4) K/uL [place] # (Auto) (0.11-0.59) K/uL Eos # (Auto) (0-0.5) K/uL Baso # (Auto) (0-0.2) K/uL Immature Gran # (Auto) (0.00-0.02) K/uL ESR (0-20) mm/hr PT (9.0-12.0) Seconds INR (0.9-1.1) APTT (21.0-31.0) Seconds PTT Ratio Sodium (136-145) mmol/L Potassium (3.5-5.1) mmol/L Chloride (98-107) mmol/L Carbon Dioxide (21-32) mmol/L Anion Gap (3-11) BUN (6-23) mg/dl Creatinine (0.6-1.4) mg/dl Est Cr Clr Drug Dosing ml/min Est GFR ( Amer) ml/min Est GFR (Non-Af Amer) ml/min BUN/Creatinine Ratio (10-20) Glucose (70-99(Fasting)) mg/dl POC Glucose 130 H 154 H (70-99) mg/dl Lactate (0.4-2.0) mmol/L Calcium (8.5-10.1) mg/dl Magnesium (1.7-2.4) mg/dl Total Bilirubin (0.2-1.0) mg/dl AST (13-39) U/L ALT (7-52) U/L Alkaline Phosphatase (34-104) U/L Troponin I High Sens (0-20) pg/ml C-Reactive Protein 2.91 H (0-0.5) mg/dl Total Protein (6.0-8.3) gm/dl Albumin (3.4-5.0) gm/dl Globulin (2.5-4.0) gm/dl Albumin/Globulin Ratio (0.9-2) Procalcitonin (0-0.5) ng/ml Urine Color Urine Appearance (Clear) Urine pH (4.5-7.5) Ur Specific [place] (1.000-1.030) Urine Protein (Negative) Urine Glucose (UA) (Negative) Urine Ketones (Negative) Urine Blood (Negative) Urine Nitrite (Negative) Urine Bilirubin (Negative) Urine Urobilinogen (Negative) Ur Leukocyte Esterase (Negative) Urine WBC (Auto) (0-5) /hpf Urine RBC (Auto) (0-4) /hpf U Hyaline Cast (Auto) (0-5) /lpf U Epithel Cells (Auto) (0-5) /lpf Urine Bacteria (Auto) (Negative) SARS-CoV-2 (PCR) (Negative) Influenza Type A (PCR) (Neg) Influenza Type B (PCR) (Neg) RSV (RT-PCR) (Neg) 11/05/21 11/05/21 11/05/21 Range/Units 12:37 16:12 17:41 WBC (4.8-10.8) K/uL RBC (4.7-6.1) M/uL Hgb (14.0-18.0) g/dL Hct (42-52) % MCV (80-100) fL MCH (25-34) pg MCHC (32-36) g/dL RDW Std Deviation (36.4-46.3) fL RDW Coeff of Gissel (11.5-14.5) % Plt Count (130-400) K/uL MPV (7.4-10.4) fL Immature Gran % (Auto) % Neut % (Auto) % Lymph % (Auto) % [place] % (Auto) % Eos % (Auto) % Baso % (Auto) % Neut # (Auto) (1.4-6.5) K/uL Lymph # (Auto) (1.2-3.4) K/uL [place] # (Auto) (0.11-0.59) K/uL Eos # (Auto) (0-0.5) K/uL Baso # (Auto) (0-0.2) K/uL Immature Gran # (Auto) (0.00-0.02) K/uL ESR (0-20) mm/hr PT (9.0-12.0) Seconds INR (0.9-1.1) APTT (21.0-31.0) Seconds PTT Ratio Sodium (136-145) mmol/L Potassium (3.5-5.1) mmol/L Chloride (98-107) mmol/L Carbon Dioxide (21-32) mmol/L Anion Gap (3-11) BUN (6-23) mg/dl Creatinine (0.6-1.4) mg/dl Est Cr Clr Drug Dosing ml/min Est GFR ( Amer) ml/min Est GFR (Non-Af Amer) ml/min BUN/Creatinine Ratio (10-20) Glucose (70-99(Fasting)) mg/dl POC Glucose 109 H (70-99) mg/dl Lactate (0.4-2.0) mmol/L Calcium (8.5-10.1) mg/dl Magnesium (1.7-2.4) mg/dl Total Bilirubin (0.2-1.0) mg/dl AST (13-39) U/L ALT (7-52) U/L Alkaline Phosphatase (34-104) U/L Troponin I High Sens 23.2 H 18.8 D (0-20) pg/ml C-Reactive Protein (0-0.5) mg/dl Total Protein (6.0-8.3) gm/dl Albumin (3.4-5.0) gm/dl Globulin (2.5-4.0) gm/dl Albumin/Globulin Ratio (0.9-2) Procalcitonin (0-0.5) ng/ml Urine Color Urine Appearance (Clear) Urine pH (4.5-7.5) Ur Specific [place] (1.000-1.030) Urine Protein (Negative) Urine Glucose (UA) (Negative) Urine Ketones (Negative) Urine Blood (Negative) Urine Nitrite (Negative) Urine Bilirubin (Negative) Urine Urobilinogen (Negative) Ur Leukocyte Esterase (Negative) Urine WBC (Auto) (0-5) /hpf Urine RBC (Auto) (0-4) /hpf U Hyaline Cast (Auto) (0-5) /lpf U Epithel Cells (Auto) (0-5) /lpf Urine Bacteria (Auto) (Negative) SARS-CoV-2 (PCR) (Negative) Influenza Type A (PCR) (Neg) Influenza Type B (PCR) (Neg) RSV (RT-PCR) (Neg) 11/05/21 11/05/21 11/06/21 Range/Units 20:18 Unknown 06:11 WBC 4.18 L (4.8-10.8) K/uL RBC 4.12 L (4.7-6.1) M/uL Hgb 13.0 L (14.0-18.0) g/dL Hct 38.0 L (42-52) % MCV 92.2 (80-100) fL MCH 31.6 (25-34) pg MCHC 34.2 (32-36) g/dL RDW Std Deviation 50.5 H (36.4-46.3) fL RDW Coeff of Gissel 14.9 H (11.5-14.5) % Plt Count 119 L (130-400) K/uL MPV 10.7 H (7.4-10.4) fL Immature Gran % (Auto) 0.2 % Neut % (Auto) 77.6 % Lymph % (Auto) 12.7 % [place] % (Auto) 5.7 % Eos % (Auto) 3.3 % Baso % (Auto) 0.5 % Neut # (Auto) 3.24 (1.4-6.5) K/uL Lymph # (Auto) 0.53 L (1.2-3.4) K/uL [place] # (Auto) 0.24 (0.11-0.59) K/uL Eos # (Auto) 0.14 (0-0.5) K/uL Baso # (Auto) 0.02 (0-0.2) K/uL Immature Gran # (Auto) 0.01 (0.00-0.02) K/uL ESR 5 (0-20) mm/hr PT (9.0-12.0) Seconds INR (0.9-1.1) APTT (21.0-31.0) Seconds PTT Ratio Sodium (136-145) mmol/L Potassium (3.5-5.1) mmol/L Chloride (98-107) mmol/L Carbon Dioxide (21-32) mmol/L Anion Gap (3-11) BUN (6-23) mg/dl Creatinine (0.6-1.4) mg/dl Est Cr Clr Drug Dosing ml/min Est GFR ( Amer) ml/min Est GFR (Non-Af Amer) ml/min BUN/Creatinine Ratio (10-20) Glucose (70-99(Fasting)) mg/dl POC Glucose 101 H (70-99) mg/dl Lactate (0.4-2.0) mmol/L Calcium (8.5-10.1) mg/dl Magnesium (1.7-2.4) mg/dl Total Bilirubin (0.2-1.0) mg/dl AST (13-39) U/L ALT (7-52) U/L Alkaline Phosphatase (34-104) U/L Troponin I High Sens (0-20) pg/ml C-Reactive Protein (0-0.5) mg/dl Total Protein (6.0-8.3) gm/dl Albumin (3.4-5.0) gm/dl Globulin (2.5-4.0) gm/dl Albumin/Globulin Ratio (0.9-2) Procalcitonin (0-0.5) ng/ml Urine Color Urine Appearance (Clear) Urine pH (4.5-7.5) Ur Specific [place] (1.000-1.030) Urine Protein (Negative) Urine Glucose (UA) (Negative) Urine Ketones (Negative) Urine Blood (Negative) Urine Nitrite (Negative) Urine Bilirubin (Negative) Urine Urobilinogen (Negative) Ur Leukocyte Esterase (Negative) Urine WBC (Auto) (0-5) /hpf Urine RBC (Auto) (0-4) /hpf U Hyaline Cast (Auto) (0-5) /lpf U Epithel Cells (Auto) (0-5) /lpf Urine Bacteria (Auto) (Negative) SARS-CoV-2 (PCR) (Negative) Influenza Type A (PCR) (Neg) Influenza Type B (PCR) (Neg) RSV (RT-PCR) (Neg) 11/06/21 11/06/21 11/06/21 Range/Units 06:11 06:11 06:11 WBC (4.8-10.8) K/uL RBC (4.7-6.1) M/uL Hgb (14.0-18.0) g/dL Hct (42-52) % MCV (80-100) fL MCH (25-34) pg MCHC (32-36) g/dL RDW Std Deviation (36.4-46.3) fL RDW Coeff of Gissel (11.5-14.5) % Plt Count (130-400) K/uL MPV (7.4-10.4) fL Immature Gran % (Auto) % Neut % (Auto) % Lymph % (Auto) % [place] % (Auto) % Eos % (Auto) % Baso % (Auto) % Neut # (Auto) (1.4-6.5) K/uL Lymph # (Auto) (1.2-3.4) K/uL [place] # (Auto) (0.11-0.59) K/uL Eos # (Auto) (0-0.5) K/uL Baso # (Auto) (0-0.2) K/uL Immature Gran # (Auto) (0.00-0.02) K/uL ESR 11 (0-20) mm/hr PT (9.0-12.0) Seconds INR (0.9-1.1) APTT (21.0-31.0) Seconds PTT Ratio Sodium 138 (136-145) mmol/L Potassium 4.2 (3.5-5.1) mmol/L Chloride 107 (98-107) mmol/L Carbon Dioxide 25 (21-32) mmol/L Anion Gap 6 (3-11) BUN 14 (6-23) mg/dl Creatinine 1.23 (0.6-1.4) mg/dl Est Cr Clr Drug Dosing 51.9 ml/min Est GFR ( Amer) 66.1 ml/min Est GFR (Non-Af Amer) 57.1 ml/min BUN/Creatinine Ratio 11.4 (10-20) Glucose 101 H (70-99(Fasting)) mg/dl POC Glucose (70-99) mg/dl Lactate (0.4-2.0) mmol/L Calcium 8.2 L (8.5-10.1) mg/dl Magnesium 2.0 (1.7-2.4) mg/dl Total Bilirubin 0.9 (0.2-1.0) mg/dl AST 10 L (13-39) U/L ALT 14 (7-52) U/L Alkaline Phosphatase 46 (34-104) U/L Troponin I High Sens (0-20) pg/ml C-Reactive Protein 5.38 H (0-0.5) mg/dl Total Protein 5.3 L (6.0-8.3) gm/dl Albumin 3.1 L (3.4-5.0) gm/dl Globulin 2.2 L (2.5-4.0) gm/dl Albumin/Globulin Ratio 1.4 (0.9-2) Procalcitonin 0.08 (0-0.5) ng/ml Urine Color Urine Appearance (Clear) Urine pH (4.5-7.5) Ur Specific [place] (1.000-1.030) Urine Protein (Negative) Urine Glucose (UA) (Negative) Urine Ketones (Negative) Urine Blood (Negative) Urine Nitrite (Negative) Urine Bilirubin (Negative) Urine Urobilinogen (Negative) Ur Leukocyte Esterase (Negative) Urine WBC (Auto) (0-5) /hpf Urine RBC (Auto) (0-4) /hpf U Hyaline Cast (Auto) (0-5) /lpf U Epithel Cells (Auto) (0-5) /lpf Urine Bacteria (Auto) (Negative) SARS-CoV-2 (PCR) (Negative) Influenza Type A (PCR) (Neg) Influenza Type B (PCR) (Neg) RSV (RT-PCR) (Neg) 11/06/21 Range/Units 07:32 WBC (4.8-10.8) K/uL RBC (4.7-6.1) M/uL Hgb (14.0-18.0) g/dL Hct (42-52) % MCV (80-100) fL MCH (25-34) pg MCHC (32-36) g/dL RDW Std Deviation (36.4-46.3) fL RDW Coeff of Gissel (11.5-14.5) % Plt Count (130-400) K/uL MPV (7.4-10.4) fL Immature Gran % (Auto) % Neut % (Auto) % Lymph % (Auto) % [place] % (Auto) % Eos % (Auto) % Baso % (Auto) % Neut # (Auto) (1.4-6.5) K/uL Lymph # (Auto) (1.2-3.4) K/uL [place] # (Auto) (0.11-0.59) K/uL Eos # (Auto) (0-0.5) K/uL Baso # (Auto) (0-0.2) K/uL Immature Gran # (Auto) (0.00-0.02) K/uL ESR (0-20) mm/hr PT (9.0-12.0) Seconds INR (0.9-1.1) APTT (21.0-31.0) Seconds PTT Ratio Sodium (136-145) mmol/L Potassium (3.5-5.1) mmol/L Chloride (98-107) mmol/L Carbon Dioxide (21-32) mmol/L Anion Gap (3-11) BUN (6-23) mg/dl Creatinine (0.6-1.4) mg/dl Est Cr Clr Drug Dosing ml/min Est GFR ( Amer) ml/min Est GFR (Non-Af Amer) ml/min BUN/Creatinine Ratio (10-20) Glucose (70-99(Fasting)) mg/dl POC Glucose 101 H (70-99) mg/dl Lactate (0.4-2.0) mmol/L Calcium (8.5-10.1) mg/dl Magnesium (1.7-2.4) mg/dl Total Bilirubin (0.2-1.0) mg/dl AST (13-39) U/L ALT (7-52) U/L Alkaline Phosphatase (34-104) U/L Troponin I High Sens (0-20) pg/ml C-Reactive Protein (0-0.5) mg/dl Total Protein (6.0-8.3) gm/dl Albumin (3.4-5.0) gm/dl Globulin (2.5-4.0) gm/dl Albumin/Globulin Ratio (0.9-2) Procalcitonin (0-0.5) ng/ml Urine Color Urine Appearance (Clear) Urine pH (4.5-7.5) Ur Specific [place] (1.000-1.030) Urine Protein (Negative) Urine Glucose (UA) (Negative) Urine Ketones (Negative) Urine Blood (Negative) Urine Nitrite (Negative) Urine Bilirubin (Negative) Urine Urobilinogen (Negative) Ur Leukocyte Esterase (Negative) Urine WBC (Auto) (0-5) /hpf Urine RBC (Auto) (0-4) /hpf U Hyaline Cast (Auto) (0-5) /lpf U Epithel Cells (Auto) (0-5) /lpf Urine Bacteria (Auto) (Negative) SARS-CoV-2 (PCR) (Negative) Influenza Type A (PCR) (Neg) Influenza Type B (PCR) (Neg) RSV (RT-PCR) (Neg) Administered Medications Acetaminophen (Acetaminophen 325 Mg Tab) 650 mg PO Q4H PRN PRN Reason: pain/fever Stop: 12/05/21 05:35 Last Admin: 11/05/21 16:08 Dose: 650 mg Documented by: [id number] Admin: 11/05/21 08:23 Dose: 650 mg Documented by: [id number] Clopidogrel Bisulfate (Clopidogrel Bisulfate 75 Mg Tab) 75 mg PO DAILY [facility] Stop: 12/05/21 08:59 Last Admin: 11/06/21 07:42 Dose: 75 mg Documented by: [id number] Admin: 11/05/21 08:17 Dose: 75 mg Documented by: [id number] Cyanocobalamin (Cyanocobalamin (B-12) 500 Mcg Tablet) 1,000 mcg PO QAM [facility] Stop: 12/06/21 09:10 Last Admin: 11/06/21 09:54 Dose: 1,000 mcg Documented by: [id number] Enoxaparin Sodium (Enoxaparin Inj 40 Mg/0.4 Ml Syr) 40 mg SQ Q24H [facility] Stop: 12/05/21 08:59 Last Admin: 11/06/21 07:42 Dose: 40 mg Documented by: [id number] Admin: 11/05/21 08:17 Dose: 40 mg Documented by: [id number] Clindamycin Phosphate 600 mg/ (Dextrose) 54 mls @ 100 mls/hr IV Q8H [facility] Stop: 11/13/21 08:59 Last Infusion: 11/06/21 09:48 Dose: 0 mls/hr Documented by: [id number] Admin: 11/06/21 09:15 Dose: 100 mls/hr Documented by: [id number] Insulin Aspart (Insulin Aspart Per Unit) 0 units SC ACHS [facility] Stop: 12/05/21 07:29 Last Admin: 11/06/21 11:41 Dose: 6 units Documented by: [id number] Cosigned by: [id number] Admin: 11/06/21 07:39 Dose: 7 units Documented by: [id number] Cosigned by: [id number] Admin: 11/05/21 20:29 Dose: Not Given Documented by: [id number] Cosigned by: [id number] Admin: 11/05/21 16:44 Dose: 3 units Documented by: [id number] Cosigned by: [id number] Admin: 11/05/21 12:39 Dose: 4 units Documented by: [id number] Cosigned by: [id number] Admin: 11/05/21 08:16 Dose: 3 units Documented by: [id number] Cosigned by: [id number] Insulin Glargine (Insulin Glargine Solostar 100 Units/Ml 3 Ml Pen) 7 units SC BID [facility] Stop: 12/05/21 08:59 Last Admin: 11/06/21 07:38 Dose: 7 units Documented by: [id number] Cosigned by: [id number] Admin: 11/05/21 20:29 Dose: 7 units Documented by: [id number] Cosigned by: [id number] Admin: 11/05/21 08:17 Dose: 7 units Documented by: [id number] Cosigned by: [id number] Paliperidone (Paliperidone 1.5 Mg Tabcr) 3 mg PO QAM [facility] Stop: 12/05/21 12:29 Last Admin: 11/06/21 07:42 Dose: 3 mg Documented by: [id number] Admin: 11/05/21 16:48 Dose: 3 mg Documented by: [id number] Pantoprazole Sodium (Pantoprazole 40 Mg Tab) 40 mg PO QAM [facility] Stop: 12/05/21 08:59 Last Admin: 11/06/21 07:42 Dose: 40 mg Documented by: [id number] Admin: 11/05/21 08:17 Dose: 40 mg Documented by: [id number] Discontinued Medications Acetaminophen (Acetaminophen 500 Mg Tab) 1,000 mg PO NOW STA Stop: 11/05/21 01:13 Last Admin: 11/05/21 01:40 Dose: 1,000 mg Documented by: [id number] Gadobutrol (Gadobutrol 65ml Vial) 8.2 ml IV ONCE ONE Stop: 11/05/21 16:06 Last Admin: 11/05/21 15:47 Dose: 8.2 ml Documented by: [id number] Sodium Chloride (Nss) 500 mls @ 999 mls/hr IV .Q31M ONE Stop: 11/05/21 01:41 Last Infusion: 11/05/21 02:12 Dose: 0 mls/hr Documented by: [id number] Admin: 11/05/21 01:40 Dose: 999 mls/hr Documented by: [id number] Sodium Chloride (Nss 1000ml) 1,000 mls @ 999 mls/hr IV .Q1H1M ONE Stop: 11/05/21 03:39 Last Infusion: 11/05/21 03:48 Dose: 0 mls/hr Documented by: [id number] Admin: 11/05/21 02:47 Dose: 999 mls/hr Documented by: [id number] Cefepime HCl (Maxipime) 2,000 mg in 20 mls @ 5 mls/min IV NOW STA; Protocol Stop: 11/05/21 02:42 Last Admin: 11/05/21 02:47 Dose: 5 mls/min Documented by: [id number] Cefepime HCl 2,000 mg/ Syringe 20 mls @ 5 mls/min IV Q12H NIKOLAI; Protocol Stop: 11/07/21 13:59 Last Admin: 11/06/21 01:57 Dose: 5 mls/min Documented by: [id number] Admin: 11/05/21 13:22 Dose: 5 mls/min Documented by: [id number] Daptomycin 425 mg/ Syringe 8.5 mls @ 4.25 mls/min IV Q24H NIKOLAI; Protocol Stop: 11/07/21 05:59 Last Admin: 11/06/21 07:35 Dose: 4.25 mls/min Documented by: [id number] Admin: 11/05/21 06:17 Dose: 4.25 mls/min Documented by: [id number] Lactated Ringer's (Lr) 1,000 mls @ 100 mls/hr IV .Q10H NIKOLAI Stop: 11/06/21 01:35 Last Infusion: 11/06/21 05:23 Dose: 0 mls/hr Documented by: [id number] Admin: 11/05/21 19:23 Dose: 100 mls/hr Documented by: [id number] Infusion: 11/05/21 16:18 Dose: 100 mls/hr Documented by: [id number] Admin: 11/05/21 06:18 Dose: 100 mls/hr Documented by: [id number] Discharge Plan Visit Data Chief Complaint: Fever Stated Complaint: FEVER,TROUBLE WALKING,CANT EAT ED Provider: Bere Mullins Discharge Problem: Sepsis, Suicidal ideation Patient Disposition: Admitted As Inpatient Discharge Instructions Interventions: ED Discharge Assessment Last Done: 11/05/21 05:11
[2021-11-05 01:24] LABS: Basophils # (auto) 0.01 K/uL (0-0.2); Basophils % (auto) 0.1 %; Eosinophils # (auto) 0.08 K/uL (0-0.5); Eosinophils % (auto) 0.7 %; Hemoglobin 13.8 g/dL (14.0-18.0); Immature Granulocytes # (auto) 0.02 K/uL (0.00-0.02); Immature Granulocytes % (auto) 0.2 %; Lymphocytes # (auto) 0.34 K/uL (1.2-3.4); Mean Corpuscular Hemoglobin 31.7 pg (25-34); Mean Corpuscular Hgb Conc 34.5 g/dL (32-36); Mean Platelet Volume 10.7 fL (7.4-10.4); Monocytes # (auto) 0.35 K/uL (0.11-0.59); Monocytes % (auto) 3.1 %; Neutrophils # (auto) 10.52 K/uL (1.4-6.5); Neutrophils % (auto) 92.9 %; Platelet Count 175 K/uL (130-400); RDW Coefficient of Variation 14.5 % (11.5-14.5); RDW Standard Deviation 49.5 fL (36.4-46.3); Red Blood Count 4.35 M/uL (4.7-6.1); White Blood Count 11.32 K/uL (4.8-10.8)
[2021-11-05 01:36] LABS: INR 1.1 (0.9-1.1); Partial Thromboplastin Ratio 0.9; Partial Thromboplastin Time 24.5 Seconds (21.0-31.0); Prothrombin Time 11.5 Seconds (9.0-12.0)
[2021-11-05 01:45] LABS: Albumin Globulin Ratio 1.5 (0.9-2); Albumin Level 3.5 gm/dl (3.4-5.0); Bilirubin,Total 0.9 mg/dl (0.2-1.0); Calcium 8.6 mg/dl (8.5-10.1); Creatinine Clr Calc Pharmacy 43.7 ml/min; Est GFR (African American) 53.8 ml/min; Est GFR (Non-African American) 46.4 ml/min; Globulin 2.3 gm/dl (2.5-4.0); Magnesium 1.8 mg/dl (1.7-2.4); Potassium 4.3 mmol/L (3.5-5.1); Total Protein 5.8 gm/dl (6.0-8.3)
[2021-11-05 02:33] LABS: Appearance Urine Clear (Clear); Bacteria Urine Automated Negative (Negative); Bilirubin Urine Negative (Negative); Blood Urine Negative (Negative); Color Urine Yellow; Epithelial Cell Urine Auto 0-5 /lpf (0-5); Glucose Urine UA Negative (Negative); Ketones Urine Negative (Negative); Leukocyte Esterase Urine Trace (Negative); Nitrite Urine Negative (Negative); Protein Urine Negative (Negative); RBC Urine Automated 0-4 /hpf (0-4); Specific Gravity Urine 1.018 (1.000-1.030); Urobilinogen Urine Negative (Negative)
[2021-11-05] MEDS ORDERED: SODIUM CHLORIDE 0.9% 1000ML 1,000 ML IV ONE (02:39)
[2021-11-05] MEDS ORDERED: CEFEPIME 2,000 MG/20 ML VIAL IV STA (02:39)
[2021-11-05 03:07] LABS: Influenza A virus by PCR Negative (Neg); Influenza B virus by PCR Negative (Neg); RSV by PCR Negative (Neg); SARS CoV2 RNA(COVID-19) InHosp NEGATIVE (Negative)
--- NOTE | 2021-11-05 03:48 | History & Physical Report ---
Date of Service November 05, 2021 Assessment & Plan (1) Sepsis: Plan: 76-year-old male with history of hypertension, hyperlipidemia, diabetes presenting with sepsis syndromefevers/chills/rigors, tachycardia and borderline blood pressure on arrival as well as elevated WBC = 11.32 with elevated neutrophils lymphocyte ratio. Possible sources include urinary as patient had recent instrumentation/cystoscopy. Admit to medical with telemetry Follow cultures sent by ER Empiric antibiotics in the form of cefepime and daptomycin. Patient with history of VRE UTI in the past sensitive to daptomycin Bladder scan as needed (2) Suicidal ideation: Plan: Patient made several comments regarding self-harm while in the ER. During my encounter he denies active suicidal or homicidal ideations. States that he does not wish to harm himself. He was verbally contracted for safety. 302 petition was initiated in the ER Maintain one-to-one sitter and suicide precautions overnight Psychiatry consultation appreciated regarding possible 302 (3) Hyperlipidemia: Plan: Chronic. Patient on atorvastatin We will hold while on daptomycin (4) Diabetes mellitus, type 2: Plan: Patient with diabetes on insulin therapy. Last hemoglobin A1c on 07/22/2021 = 7.8 Continue Lantus 7 units twice daily Insulin sliding scale Goal blood sugar 100-1 40 (5) Hypertension: Plan: Blood pressure borderline low in setting of presumed infection. Presently 98/59 after receiving 1500 mL of crystalloid infusion. Patient with reported history of hypertension however, is not presently taking any medications for this. Continue LR at 100 mL/h x 1 L Continue to monitor blood pressure (6) CAD in pauma artery: Plan: Patient reports chest pain earlier in the evening which has since resolved. Telemetry monitoring Trend troponin Continue Plavix 75 mg p.o. daily Hold statin while on daptomycin Plan: F/E/NLR 100 mL totals 1 L, electrolytes within normal limits, Consistent carb/AHA diet as tolerated ProphylaxisLovenox CodeDNR/DNI per discussion with patient Dispoobservation to medical telemetry History of Present Illness Chief Complaint: Fever, hypotension Primary Care Provider: Fox Moran MD Tian Blanchard is a 76yo male with history of HTN, HLP, GERD, DM and Schizophrenia presenting with fever, chills, rigors and hypotension. Patient has been dealing with prostatitis over the last month. He completed 7 days of Bactrim followed by 14 days of ciprofloxacin with temporary resolution of his symptoms. He was seen by urology today for work-up of hematuria as well as lower urinary tract symptoms. 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 No mass. Patient reports procedure was completed in the afternoon. He went home and around 1700 developed fever to 103 as well as shaking chills an d dizziness. He does report he had a brief "blackout" episode after getting up from his chair. He also states that his legs are weak and he had difficulty ambulating as well as some chest discomfort. In the ER patient febrile at 38, tachycardic 102 bpm, blood pressure slightly low at 94/54. Patient with adequate respirations saturating well on room air. He was administered 1500 mL of crystalloid with improvement in blood pressure.While in the ER patient made several statements of self-harm, stating that he "wanted to jump in front of a bus". He also reports hearing voices which tell him to follow them. He denies active suicidal or homicidal ideations. Verbally contracted for safety. ER course:Cefepime 2 g, normal saline x1500 mL, acetaminophen x1 g Allergies Allergy/AdvReac Type Severity Reaction Status Date / Time morphine AdvReac Severe "STOPS MY Verified 11/04/21 12:09 HEART" diazepam AdvReac Intermediate HALLUCINATE Verified 11/04/21 12:09 S hydromorphone [From Dilaudid] AdvReac Intermediate unresponsiv Verified 11/04/21 12:09 eness propoxyphene AdvReac Intermediate DRUG Verified 11/04/21 12:09 INTOLERANCE trazodone AdvReac Intermediate GI UPSET Verified 11/04/21 12:09 Home Medications Medication Instructions Recorded Confirmed Type acetaminophen 500 mg tablet 1,000 mg PO Q8H PRN 06/05/19 10/17/21 History (Tylenol Extra Strength) nitroglycerin 0.4 mg sublingual 0.4 mg SUBLINGUAL UD PRN 11/04/20 10/17/21 History tablet (Nitrostat) atorvastatin 40 mg tablet 40 mg PO QAM #90 tab 12/01/20 10/17/21 Rx pen needle, diabetic 31 gauge x #400 ea 07/11/21 10/17/21 Rx 3/16" (BD Ultra-Fine Mini Pen Needle) clopidogrel 75 mg tablet 75 mg PO DAILY 08/05/21 10/17/21 History pantoprazole 40 mg tablet,delayed 40 mg PO QAM #90 tab 08/05/21 10/17/21 Rx release cyanocobalamin (vitamin B-12) 1,000 mcg PO QAM 08/10/21 10/17/21 History 1,000 mcg tablet (Vitamin B-12) blood sugar diagnostic (OneTouch #100 ea 08/26/21 10/17/21 Rx Ultra Test) [id number] acid 300 1 tab PO DAILY 09/01/21 10/17/21 History mcg-lycopene 600 mcg-lutein 300 mcg tablet (Centrum Silver Men) Super Beta Prostate 1 tab PO DAILY 09/05/21 10/17/21 History insulin glargine 100 unit/mL (3 15 unit SUBCUT QPM ml 10/12/21 10/17/21 History mL) subcutaneous pen (Lantus Solostar U-100 Insulin) insulin lispro 100 unit/mL 5 - 7 unit SQ TID ml 10/12/21 10/17/21 History subcutaneous pen (Humalog KwikPen (U-100) Insulin) flash glucose sensor (FreeStyle See Rx Instructions .ROUTE 11/04/21 Rx Kirk 14 Day Sensor) .COMPLEX #2 kit Past Med/Surg History Medical History Acute diastolic (congestive) heart failure (06/2019) Asymptomatic cholelithiasis Atypical chest pain Benign colonic polyp CAD in pauma artery Cellulitis Cellulitis Cerebrovascular accident Cognitive disorder Controlled type 2 diabetes mellitus with neurologic complication, with long-term current use of insulin Conversion disorder Diabetes mellitus, type 2 Diabetic peripheral neuropathy Dyslipidemia Esophageal reflux Failure of outpatient treatment Headache History of tobacco use Hyperlipidemia Hypertension Kidney stone on right side Left leg pain Left wrist fracture Left-sided chest pain Migraines, neuralgic Myocardial Infarction 2004--follows with Dr. Mejia Nephrolithiasis Neurological deficit present Neuropathy Osteoarthritis Raynauds phenomenon Stroke HX X 2-11/2004 AND 09/2019-F/U DR NÚÑEZ Tubular adenoma of colon Venous (peripheral) insufficiency Venous stasis ulcers of both lower extremities Vitamin D deficiency Weakness Wound of left foot Surgical History History of ankle surgery History of arthroscopy of left knee History of cardiac cath x4-5, last 05/19/2019 [facility] NO RECENT STENTS History of carpal tunnel release of both wrists History of colonoscopy History of heart artery stent (1998) History of lithotripsy x2 History of lumbar discectomy x2 History of open reduction and internal fixation (ORIF) procedure left ankle--hardware in place History of right cataract extraction History of tonsillectomy and adenoidectomy S/P sinus surgery Status post uvulopalatopharyngoplasty Family History Father Diabetes Prostate cancer Colorectal cancer Myocardial infarction Brother Prostate cancer Uncle Colorectal cancer Father Myocardial infarction Mother Myocardial infarction Stroke Other Dementia No family history of adverse response to anesthesia Denies family history of Ovarian cancer Breast cancer Social History (Updated 09/21/21 @ 15:00 by Imani Cannon LPN) Smoking Status: Former smoker Tobacco Type: Cigarettes Age Quit Using Tobacco: 71; packs per day: 3; Cigarettes Per Day: 3; Second Hand Exposure: No; Hx Alcohol Use: No Hx Substance Use: No Preferred Language: [place] Communication Ability: Effective Visual Impairment: No Limitations Hearing Ability: Normal [employer] In[employer] Required: No Beliefs That Will Affect Care: None marital status: marital status details: 3 children Current Living Situation: Alone current occupational status: retired 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 How many Children do You have: 1 other: 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); chemical exposure Feels Safe at Home: Yes Childhood Exposure to Second-Hand Smoke: Yes Dental Care, Regularly: Yes Physical Activity Frequency: Daily Seatbelt Use: always Sunscreen Use: No Assistive Devices: Glasses and Special Shoe Review of Systems Review of Systems: All systems reviewed & are unremarkable except as noted in HPI & below Physical Exam Physical Exam: General: patient resting comfortably, NAD, non-toxic in appearance, AA&O x 4 Skin: warm, dry, intact, no rashes or lesions HEENT: NC/AT, PERRL, EOMI, anicteric sclera, conjunctiva without injection, external ear normal to inspection and nontender, nares patent, moist mucus membranes, dentition intact, no oropharyngeal lesions, neck supple, trachea midline, no LAD, no thyromegaly, no JVD Heart: +S1/S2, regular, no m/r/g Lungs: equal air entry bilaterally, no rales/rhonchi/wheezes Abd: +BS, soft, ND, Mild suprapubic tenderness without rebound/guarding, no masses/organomegaly/ascites Ext: warm, 2+ pulses in UE/LE bilaterally, 1+ pitting edema Neuro: nonfocal, patient AA&O x 4, speech intact, no facial droop, moving all extremities on command with equal strength 5/5, 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 Results & Data Results & Data ([facility]) Vital Signs (Past 12 Hours) Vital Signs Temp Pulse Pulse Resp BP BP Pulse Ox 11/05/21 03:15 89 18 97/62 L 97 11/05/21 02:45 91 H 16 94/54 L 94 11/05/21 02:30 93 H 16 99/56 L 97 11/05/21 02:15 97 H 16 109/69 98 11/05/21 02:00 89 16 102/59 L 96 11/05/21 01:45 110 H 18 118/61 99 11/05/21 01:38 18 99 11/05/21 01:08 101 H 16 104/61 97 11/05/21 00:54 18 96 11/05/21 00:20 38.0 C H 102 H 18 100/63 96 Laboratory Results Laboratory Results WBC 11.32 K/uL (4.8-10.8) H 11/05/21 01:12 RBC 4.35 M/uL (4.7-6.1) L 11/05/21 01:12 Hgb 13.8 g/dL (14.0-18.0) L 11/05/21 01:12 Hct 40.0 % (42-52) L 11/05/21 01:12 MCV 92.0 fL (80-100) 11/05/21 01:12 MCH 31.7 pg (25-34) 11/05/21 01:12 MCHC 34.5 g/dL (32-36) 11/05/21 01:12 RDW Std Deviation 49.5 fL (36.4-46.3) H 11/05/21 01:12 RDW Coeff of Gissel 14.5 % (11.5-14.5) 11/05/21 01:12 Plt Count 175 K/uL (130-400) 11/05/21 01:12 MPV 10.7 fL (7.4-10.4) H 11/05/21 01:12 Immature Gran % (Auto) 0.2 % 11/05/21 01:12 Neut % (Auto) 92.9 % 11/05/21 01:12 Lymph % (Auto) 3.0 % 11/05/21 01:12 [place] % (Auto) 3.1 % 11/05/21 01:12 Eos % (Auto) 0.7 % 11/05/21 01:12 Baso % (Auto) 0.1 % 11/05/21 01:12 Neut # (Auto) 10.52 K/uL (1.4-6.5) H 11/05/21 01:12 Lymph # (Auto) 0.34 K/uL (1.2-3.4) L 11/05/21 01:12 [place] # (Auto) 0.35 K/uL (0.11-0.59) 11/05/21 01:12 Eos # (Auto) 0.08 K/uL (0-0.5) 11/05/21 01:12 Baso # (Auto) 0.01 K/uL (0-0.2) 11/05/21 01:12 Immature Gran # (Auto) 0.02 K/uL (0.00-0.02) 11/05/21 01:12 PT 11.5 Seconds (9.0-12.0) 11/05/21 01:12 INR 1.1 (0.9-1.1) 11/05/21 01:12 APTT 24.5 Seconds (21.0-31.0) 11/05/21 01:12 PTT Ratio 0.9 11/05/21 01:12 Sodium 135 mmol/L (136-145) L 11/05/21 01:12 Potassium 4.3 mmol/L (3.5-5.1) 11/05/21 01:12 Chloride 104 mmol/L (98-107) 11/05/21 01:12 Carbon Dioxide 23 mmol/L (21-32) 11/05/21 01:12 Anion Gap 8 (3-11) 11/05/21 01:12 BUN 19 mg/dl (6-23) 11/05/21 01:12 Creatinine 1.46 mg/dl (0.6-1.4) H 11/05/21 01:12 Est Cr Clr Drug Dosing 43.7 ml/min 11/05/21 01:12 Est GFR ( Amer) 53.8 ml/min 11/05/21 01:12 Est GFR (Non-Af Amer) 46.4 ml/min 11/05/21 01:12 BUN/Creatinine Ratio 13.0 (10-20) 11/05/21 01:12 Glucose 192 mg/dl (70-99(Fasting)) H 11/05/21 01:12 POC Glucose 196 mg/dl (70-99) H 11/05/21 00:25 Lactate 1.8 mmol/L (0.4-2.0) 11/05/21 01:12 Calcium 8.6 mg/dl (8.5-10.1) 11/05/21 01:12 Magnesium 1.8 mg/dl (1.7-2.4) 11/05/21 01:12 Total Bilirubin 0.9 mg/dl (0.2-1.0) 11/05/21 01:12 AST 18 U/L (13-39) 11/05/21 01:12 ALT 22 U/L (7-52) 11/05/21 01:12 Alkaline Phosphatase 61 U/L (34-104) 11/05/21 01:12 Total Protein 5.8 gm/dl (6.0-8.3) L 11/05/21 01:12 Albumin 3.5 gm/dl (3.4-5.0) 11/05/21 01:12 Globulin 2.3 gm/dl (2.5-4.0) L 11/05/21 01:12 Albumin/Globulin Ratio 1.5 (0.9-2) 11/05/21 01:12 Procalcitonin 0.25 ng/ml (0-0.5) 11/05/21 01:12 Urine Color Yellow 11/05/21 02:22 Urine Appearance Clear (Clear) 11/05/21 02:22 Urine pH 6.0 (4.5-7.5) 11/05/21 02:22 Ur Specific [place] 1.018 (1.000-1.030) 11/05/21 02:22 Urine Protein Negative (Negative) 11/05/21 02:22 Urine Glucose (UA) Negative (Negative) 11/05/21 02:22 Urine Ketones Negative (Negative) 11/05/21 02:22 Urine Blood Negative (Negative) 11/05/21 02:22 Urine Nitrite Negative (Negative) 11/05/21 02:22 Urine Bilirubin Negative (Negative) 11/05/21 02:22 Urine Urobilinogen Negative (Negative) 11/05/21 02:22 Ur Leukocyte Esterase Trace (Negative) H 11/05/21 02:22 Urine WBC (Auto) 1-5 /hpf (0-5) 11/05/21 02:22 Urine RBC (Auto) 0-4 /hpf (0-4) 11/05/21 02:22 U Hyaline Cast (Auto) 1-5 /lpf (0-5) 11/05/21 02:22 U Epithel Cells (Auto) 0-5 /lpf (0-5) 11/05/21 02:22 Urine Bacteria (Auto) Negative (Negative) 11/05/21 02:22 SARS-CoV-2 (PCR) NEGATIVE (Negative) 11/05/21 02:22 Influenza Type A (PCR) Negative (Neg) 11/05/21 02:22 Influenza Type B (PCR) Negative (Neg) 11/05/21 02:22 RSV (RT-PCR) Negative (Neg) 11/05/21 02:22 Code Status & VTE Plan VTE Prophylaxis Plan VTE Prophylaxis will be ordered: Yes PG Care Time/CCT Total # of Minutes Spent Total Time Spent with Patient: Total time spent is greater than 50% in coordination of care (as documented) at patient's floor/unit and/or counseling patient: Coding Level of Care Code INT OBSERVATION CARE 70M LVL 3 Diagnoses Hyperlipidemia E78.5 Hyperlipidemia type: unspecified Diabetes mellitus, type 2 E11.42; Z79.4 Diabetes mellitus usp insulin use: with usp use Diabetes mellitus complication status: with neurologic complications Diabetes mellitus complication detail: with polyneuropathy Hypertension I10 Hypertension type: essential hypertension CAD in pauma artery I25.10 Sepsis A41.9 Suicidal ideation R45.851 (1) Hyperlipidemia Hyperlipidemia type: unspecified Qualified Code(s): E78.5 - Hyperlipidemia, unspecified (2) Diabetes mellitus, type 2 Diabetes mellitus superintendent [employer] insulin use: with superintendent [employer] use Diabetes mellitus complication status: with neurologic complications Diabetes mellitus complication detail: with polyneuropathy Qualified Code(s): E11.42 - Type 2 diabetes mellitus with diabetic polyneuropathy; Z79.4 - intermediate manager (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 (3) Hypertension Hypertension type: essential hypertension Qualified Code(s): I10 - Essential (primary) hypertension
[2021-11-05] MEDS ORDERED: GLUCAGON FOR INJ 1 MG VIAL SQ PRN (05:36)
[2021-11-05] MEDS ORDERED: ONDANSETRON INJ 2 MG/ML 2 ML VIAL IV PRN (05:36)
[2021-11-05] MEDS ORDERED: GLUCOSE 40% GEL 15 GM TUBE PO PRN (05:36)
[2021-11-05] MEDS ORDERED: GLUCOSE 10 TABS/TUBE PO PRN (05:36)
[2021-11-05] MEDS ORDERED: DEXTROSE 50% 50 ML SYRINGE IV PRN (05:36)
[2021-11-05] MEDS ORDERED: CARBOHYDRATES FOR HYPOGLYCEMIA PO PRN (05:36)
[2021-11-05] MEDS: DAPTOmycin 425 MG in SYRINGE 0 ML IV SCH (06:17)
[2021-11-05] MEDS: LACTATED RINGER'S 1,000 ML IV SCH ×2 (06:18→19:23)
--- NOTE | 2021-11-05 07:28 | XRay Report ---
XR chest 1V portable CLINICAL HISTORY: SEPSIS. COMPARISON STUDY: 10/31/2020 TECHNIQUE: 1 view of the chest FINDINGS: Single frontal view of the chest demonstrates the cardiomediastinal silhouette to be within normal li mits. The lungs are clear of alveolar opacities. There is no evidence for pleural effusion. There is no evidence for vascular congestion. There is no acute osseous pathology. IMPRESSION: 1. No acute cardiopulmonary disease. ACT 112: Negative or not required by law. Electronically signed by: Stevan Modi M.D. 11/05/2021 7:27 AM
[2021-11-05] MEDS: INSULIN ASPART PER UNIT SC SCH ×4 (08:16→20:29)
[2021-11-05] MEDS: PANTOprazole 40 MG TAB PO SCH (08:17)
[2021-11-05] MEDS: ENOXAPARIN INJ 40 MG/0.4 ML SYR SQ SCH (08:17)
[2021-11-05] MEDS: INSULIN GLARGINE SOLOSTAR 100 UNITS/ML 3 ML PEN SC SCH ×2 (08:17→20:29)
[2021-11-05] MEDS: CLOPIDOGREL BISULFATE 75 MG TAB PO SCH (08:17)
[2021-11-05] MEDS: ACETAMINOPHEN 325 MG TAB PO PRN ×2 (08:23→16:08)
--- NOTE | 2021-11-05 11:16 | Hospitalist Progress Note ---
Date of Service November 05, 2021 Assessment & Plan (1) Sepsis: Plan: 76-year-old white male presented to the emergency department complaining of rigors/subjective fevers and chills Found to have early sepsis syndrome -- Marginally hypotensive (90s/50s). Responded to IV hydration -- Slightly tachycardic (110). Responded to IV hydration -- Mild leukocytosis (11.32) with mild left shift -- Low-grade fever99.6 F -- Lactic acid normal at 1.8 - initially, source of sepsis syndrome thought to be urinary as he did undergo cystoscopy with prostate biopsy earlier in the day. - His urinalysis is not grossly infected (clear, nitrite negative, is trace leukocyte esterase positive). urine culture missing from ED work-up. Added on 11/05 but already on antibiotics at this point - CXR: No acute cardiopulmonary process. No respiratory symptoms - Does appear to have very mild cellulitis of the left foot. I suspect this is likely the cause. Does have history of osteomyelitis in this region s/p distal amputation of the second toe thus will MRI - Obtain ESR/CRP - Blood cultures already obtainedNGTD - Since he is complaining of abdominal pain, will obtain a CT of the abdomen/pelvis with oral contrast only (given need for IV contrast for MRI) - Empirically started on cefepime/daptomycin (given history of VRE UTI in the past). We will continue this regimen for now (2) Cellulitis: Plan: Patient with mild cellulitis of the left foot tracking proximally towards the souza Suspect etiology to #1 Continue antibiotics as outlined above (cefepime/daptomycin) Will obtain MRI with IV contrast given history of osteomyelitis s/p amputation of distal second toe Continue to follow clinically (3) JUANCARLOS (acute kidney injury): Plan: Creatinine 1.46 upon presentation (with baseline around 1.1) Likely related to mild sepsis syndrome Continue IV hydration with follow-up labs in the a.m. to trend Hold nephrotoxic agents and renally adjust medications (4) Suicidal ideation: Plan: Patient made several comments regarding self-harm while in the ER. During my encounter he denies active suicidal or homicidal ideations. States that he does not wish to harm himself. He was verbally contracted for safety. 302 petition was initiated in the ER History of bipolar/schizophrenia. 302 05/08 with conversion to 303. Discharged with antidepressive medications and mood stabilizers; however, patient self discontinued these as "not necessary" Reports a plan to harm himself which included throwing himself in front of a truck. No active attempts at self-harm Maintain one-to-one sitter and suicide precautions Psychiatry consultation appreciated regarding possible 302 (5) Hyperlipidemia: Plan: Chronic. Patient on atorvastatin will hold while on daptomycin (6) Diabetes mellitus, type 2: Plan: Patient with diabetes on insulin therapy. Last hemoglobin A1c on 07/22/2021 = 7.8 Continue Lantus 7 units twice daily Insulin sliding scale Goal blood sugar 100-140 Update A1c (7) Hypertension: Plan: Blood pressure borderline low in setting of presumed infection. Presently 98/59 after receiving 1500 mL of crystalloid infusion. Patient with reported history of hypertension however, is not presently taking any medications for this. Continue IV hydration Current BP 100/56 (MAP=71). 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 continue Telemetry monitoring Troponin remains negative Continue Plavix 75 mg p.o. daily Hold statin while on daptomycin Plan: Plan of care to be discussed with Dr. Veloz. Further orders as warranted Admission and Anticipated Discharge Date Admission Date: November 05, 2021 Subjective Patient seen on daily today. Hospitalized in the overnight hours with sepsis syndromeexact etiology unclear. Was in his usual state of health all day yesterday. Worked. Immediately at the end of his shift (around 5 PM) developed rigors, subjective fever ("was burning up"), significant myalgias, arthralgias and just did not feel well. He presented to the emergency department as he recently had a cystoscopy with prostate biopsy done earlier that day. He received 1 dose of antibiotic prophylactically but was notified to come to the emergency department if he developed any fevers or chills. He was found to have mild sepsis syndrome and that his blood pressure was marginal at 90/50. He was slightly tachycardic at 110 bpm. He had a low-grade fever of 99.6 F. He had mild leukocytosis of 11.32. Otherwise, his lactic acid level was normal. His urinalysis was not grossly infected. His procalcitonin was normal. COVID, influenza A/B and RSV were negative. His CXR showed no acute cardiopulmonary process. He was subsequently hospitalized for sepsis syndromepresumed urinary and empirically placed on cefepime/daptomycin given his history of VRE UTI. Patient does have a history of osteomyelitis of the left second. Was hospitalized July 2021. Underwent debridement along with distal amputation of the left second toe given exposed necrotic bone. Discharged with ciprofloxacin X 5 days following amputation. Upon questioning today, he denies any respiratory symptoms including nasal congestion, sore throat, cough, change in taste/smell. He has mild rhinorrhea but reports this is chronic for him. He is complaining of epigastric and left upper quadrant abdominal pain that radiates down into the left lower quadrant. Does report nausea and dry heaves without emesis. Does report mild dysuria and hematuria since cystoscopy done earlier in the day prior to presentation to the ED. Is complaining of increased pain in the left leg radiating up. No obvious drainage. Has chronic edema of this leg s/p vein harvesting but did notes his swelling has been slightly increased. In addition, he made multiple comments throughout his ED stay of wanting to harm himself. He does have a profound history of bipolar disorder and schizophrenia. He was actually admitted to the inpatient psych unit as a 302 commitment in April 2021. 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 Was discharged 06/03 on Effexor and Seroquel but patient self discontinued these medications as "he did not need it". 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 He is . He has multiple children and grandchildren but reports "they are not allowed around him". He does have frequent thoughts of wanting to harm himself. He does have a plan (he thought multiple times yesterday about throwing himself in front of a truck". He has never had any attempts to harm himself but again, does have frequent thoughts of it. Review of Systems Review of Systems: All systems reviewed and are unremarkable except as noted in HPI and below Denies headache, nasal congestion, sore throat, cough, chest pain, shortness of breath, palpitations, orthopnea, PND, vomiting, diarrhea, constipation, dysuria, hematuria, frequency, back pain, joint pain or swelling, easy bruising or bleeding, skin lesions or rashes. Physical Exam Physical Exam: General: Resting comfortably in his hospital bed. His affect is bright when talking about his infection/sepsis syndrome but when talking about his underlying psychiatric issues, he shuts down and cries. Immediately a ble to go back to talking with a bright affect. He has a very pseudobulbar affect. He does not appear ill or toxic HEENT: Head is AT/NC. Buccal mucosa is moist and pink Neck: No JVD. Negative hepatojugular reflex Cardiac: RRR without M/G/R Lungs: CTA without W/R/R Abdomen: Normoactive X4. Soft. Mild epigastric and left upper quadrant tenderness. Mild LLQ tenderness. No guarding or rigidity Extremities: Edema noted of the bilateral lower extremities (L>R). His left foot does have apparent amputation of the distal left second digit prior to the joint space. At the base of this toe, there is mild erythema. The skin is warm to touch. The erythema tracks proximally to the mid souza. He does have vascular changes of the bilateral lower extremities. Peripheral pulses are patent (dorsalis pedis and posterior tibialis) Neuro: A&O X4. Cranial nerves II through XII are grossly intact. No focal neuro deficits Skin: No obvious skin lesions or rashes Psych: Again, pseudobulbar affect noted Results & Data Results & Data ([facility]) Vital Signs (Past 12 Hours) Vital Signs Temp Pulse Pulse Resp BP BP Pulse Ox 11/05/21 07:07 37.2 C 82 20 100/56 L 98 11/05/21 05:29 36.2 C L 84 18 90/57 L 98 11/05/21 05:00 85 20 103/54 L 96 11/05/21 04:14 37.6 C H 94 H 18 98/59 L 96 11/05/21 03:15 89 18 97/62 L 97 11/05/21 02:45 91 H 16 94/54 L 94 11/05/21 02:30 93 H 16 99/56 L 97 11/05/21 02:15 97 H 16 109/69 98 11/05/21 02:00 89 16 102/59 L 96 11/05/21 01:45 110 H 18 118/61 99 11/05/21 01:38 18 99 11/05/21 01:08 101 H 16 104/61 97 11/05/21 00:54 18 96 11/05/21 00:20 38.0 C H 102 H 18 100/63 96 Laboratory Results 11/05/21 01:12 11/05/21 01:12 PG Care Time/CCT Total # of Minutes Spent Total Time Spent with Patient: Total time spent is greater than 50% in coordination of care (as documented) at patient's floor/unit and/or counseling patient: Prolonged Care Time 45 min spent with patient including obtaining detailed history, thorough exam, ordering and reviewing of diagnostic imaging. 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 insulin use: with assisted use Diabetes mellitus complication status: with neurologic complications Diabetes mellitus complication detail: with polyneuropathy Hypertension I10 Hypertension type: essential hypertension CAD in [place] artery I25.10 JUANCARLOS (acute kidney injury) N17.9 Cellulitis L03.90 (1) Hyperlipidemia Hyperlipidemia type: unspecified Qualified Code(s): E78.5 - Hyperlipidemia, unspecified (2) Diabetes mellitus, type 2 Diabetes mellitus assisted insulin use: with petroleum terminal plant operator use Diabetes mellitus complication status: with neurologic complications Diabetes mellitus complication detail: with polyneuropathy Qualified Code(s): E11.42 - Type 2 diabetes mellitus with diabetic polyneuropathy; Z79.4 - supervisor intermediates (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 (3) Hypertension Hypertension type: essential hypertension Qualified Code(s): I10 - Essential (primary) hypertension
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
[2021-11-05] MEDS ORDERED: PALIPERIDONE 3 MG TABCR PO SCH (12:30)
--- NOTE | 2021-11-05 13:17 | Electrocardiogram Report ---
Test Reason : Blood Pressure : / mmHG Vent. Rate : 106 BPM Atrial Rate : 106 BPM P-R Int : 150 ms QRS Dur : 118 ms QT Int : 352 ms P-R-T Axes : 063 -62 050 degrees QTc Int : 467 ms Poor data quality, interpretation may be adversely affected Sinus tachycardia Left axis deviation Right bundle branch block Inferior infarct (cited on or before 19-JAN-2016) Poor R wave progression, consider anterior CA vs. lead placement vs. LVH Abnormal ECG When compared with ECG of 25-JUL-2021 15:52, Vent. rate has increased BY 45 BPM Confirmed by Fox Lombardo ([id number]) on 11/05/2021 1:17:27 PM Referred By: REFERRED SELF Confirmed By:Fox Lombardo
[2021-11-05] MEDS: CEFEPIME 2,000 MG in SYRINGE 0 ML IV SCH (13:22)
--- NOTE | 2021-11-05 14:07 | CT Scan Report ---
CT OF THE ABDOMEN AND PELVIS WITH ORAL CONTRAST CLINICAL HISTORY: Abdominal pain. COMPARISON STUDY: CT of the abdomen and pelvis September 01, 2021. TECHNIQUE: Axial images of the abdomen and pelvis were obtained without IV contrast. Oral contrast wa s administered. Automated exposure control was utilized for the study. A dose lowering technique was utilized adhering to the principles of ALARA. FINDINGS: Lung bases are unremarkable. Cardiomegaly is noted. No pneumatosis, free air or portal veno us gas is present. There are calcified granulomas within liver and spleen. Evaluation of the abdomen and pelvis is suboptimal as unenhanced exam. No hepatic lesions are identified. Adrenal glands and pa ncreas are unremarkable. There is no biliary or pancreatic ductal dilatation. A few small bilateral r enal calculi are present. There are no ureteral calculi. Is no hydronephrosis. Prostate is enlarged, measuring 6 cm in transverse dimension. The appendix is normal. There is no evidence for a bowel obst ruction. There is no ascites. No fluid collection is identified. There is no acute fracture or suspic ious lesion within the visualized skeletal structures. IMPRESSION: 1. Bilateral nephrolithiasis. No ureteral calculi or hydronephrosis. 2. No acute process within the abdomen or pelvis on unenhanced exam. 3. No bowel obstruction. Normal appendix. 4. Enlarged prostate. ACT 112: Negative or not required by law. Electronically signed by: Barber Finnegan M.D. 11/05/2021 2:04 PM
[2021-11-05] MEDS ORDERED: GADOBUTROL 65ML VIAL IV ONE (16:05)
--- NOTE | 2021-11-05 16:33 | Magnetic Resonance Report ---
MR foot LT wo/w con CLINICAL HISTORY: Cellulitis. Second toe amputation in July. Second toe wound. Evaluate for osteo myelitis. COMPARISON STUDY: Left foot radiographs July 21, 2021. TECHNIQUE: Utilizing a 1.5 Katlyn magnet and dedicated coil, multiplanar, multiecho imaging of the lef t forefoot was performed pre and postcontrast administration. Intravenous injection of 8.2 cc of Gada vist was uneventful. FINDINGS: A marker was placed on the skin at site of wound of the left second toe. A few foci of susc eptibility artifact suggest gas related to the wound. There is soft tissue edema and enhancement sugg estive of cellulitis. No rim-enhancing fluid collection within the left second toe to suggest an absc ess. This exam is mildly compromised by motion artifact. There are expected postoperative findings fo llowing amputation of the second toe at the level of the proximal interphalangeal joint. There is no evidence for acute osteomyelitis within the proximal phalanx of the left second toe. There is apparen t mild marrow edema within the distal phalanx of the left first toe. There is also apparent mild romel ow edema within the distal phalanx of the left third toe. However, this could be artifactual. T1 sign al is preserved. No enhancement within these bones is identified on the postcontrast images. Therefor e, there is no MR evidence for acute osteomyelitis within the left forefoot. Tarsometatarsal joints a re intact. No fluid collection is identified. Mild dorsal subcutaneous edema of the left forefoot is present. IMPRESSION: 1. Left second toe wound. Small amount of gas within the second toe could be due to the open wound. A gas forming infectious process could appear similar. Findings suggestive of cellulitis of the second toe without abscess. No evidence for acute osteomyelitis within the left second toe following amputa tion. 2. Apparent marrow edema within several distal phalanges of the left foot which is probably artifactu al. No evidence for acute osteomyelitis. ACT 112: Negative or not required by law. Electronically signed by: Barber Finnegan M.D. 11/05/2021 4:31 PM
[2021-11-05] MEDS: PALIPERIDONE 1.5 MG TABCR PO SCH (16:48)
[2021-11-06] MEDS: CEFEPIME 2,000 MG in SYRINGE 0 ML IV SCH (01:57)
[2021-11-06 06:33] LABS: Mean Corpuscular Hemoglobin 31.6 pg (25-34); Mean Corpuscular Hgb Conc 34.2 g/dL (32-36); Mean Corpuscular Volume 92.2 fL (80-100); Mean Platelet Volume 10.7 fL (7.4-10.4); Platelet Count 119 K/uL (130-400); RDW Coefficient of Variation 14.9 % (11.5-14.5); RDW Standard Deviation 50.5 fL (36.4-46.3); Red Blood Count 4.12 M/uL (4.7-6.1); White Blood Count 4.18 K/uL (4.8-10.8)
[2021-11-06 06:55] LABS: Albumin Globulin Ratio 1.4 (0.9-2); Albumin Level 3.1 gm/dl (3.4-5.0); BUN Creatinine Ratio 11.4 (10-20); Bilirubin,Total 0.9 mg/dl (0.2-1.0); C Reactive Protein 5.38 mg/dl (0-0.5); Calcium 8.2 mg/dl (8.5-10.1); Creatinine Clr Calc Pharmacy 51.9 ml/min; Est GFR (African American) 66.1 ml/min; Est GFR (Non-African American) 57.1 ml/min; Globulin 2.2 gm/dl (2.5-4.0); Potassium 4.2 mmol/L (3.5-5.1); Total Protein 5.3 gm/dl (6.0-8.3)
[2021-11-06 07:08] LABS: Basophils # (auto) 0.02 K/uL (0-0.2); Basophils % (auto) 0.5 %; Eosinophils # (auto) 0.14 K/uL (0-0.5); Eosinophils % (auto) 3.3 %; Immature Granulocytes # (auto) 0.01 K/uL (0.00-0.02); Immature Granulocytes % (auto) 0.2 %; Lymphocytes # (auto) 0.53 K/uL (1.2-3.4); Lymphocytes % (auto) 12.7 %; Monocytes # (auto) 0.24 K/uL (0.11-0.59); Monocytes % (auto) 5.7 %; Neutrophils # (auto) 3.24 K/uL (1.4-6.5); Neutrophils % (auto) 77.6 %
[2021-11-06] MEDS: DAPTOmycin 425 MG in SYRINGE 0 ML IV SCH (07:35)
[2021-11-06] MEDS: INSULIN GLARGINE SOLOSTAR 100 UNITS/ML 3 ML PEN SC SCH ×2 (07:38→21:05)
[2021-11-06] MEDS: INSULIN ASPART PER UNIT SC SCH ×4 (07:39→21:05)
[2021-11-06] MEDS: PALIPERIDONE 1.5 MG TABCR PO SCH (07:42)
[2021-11-06] MEDS: ENOXAPARIN INJ 40 MG/0.4 ML SYR SQ SCH (07:42)
[2021-11-06] MEDS: CLOPIDOGREL BISULFATE 75 MG TAB PO SCH (07:42)
[2021-11-06] MEDS: PANTOprazole 40 MG TAB PO SCH (07:42)
[2021-11-06] MEDS ORDERED: NITROGLYCERIN SL 0.4 MG/TAB TAB SL PRN (09:11)
[2021-11-06] MEDS: CLINDAMYCIN 600 MG in DEXTROSE 5% 50 ML IV SCH ×2 (09:15→17:07)
--- NOTE | 2021-11-06 09:27 | Orthopedic Consultation ---
Date of Consultation November 06, 2021 Assessment & Plan (1) Cellulitis of foot associated with diabetes mellitus: Patient was seen by myself and Dr. Levin. Currently there is no evidence of infection of the left second toe. The postop surgical wound from July is healed nicely. There are no open wounds. At this time no need for surgical intervention from an orthopedic standpoint would. Would recommend continued treatment for the cellulitis as he does appear to have some mild josee lulitis of his left lower extremity. While evaluating the patient the physician assistant passenger locomotive engineer also entered the room and states that things have improved significantly since yesterday. Continue course of present treatment and will discuss findings with Dr. Boyd tomorrow. Patient may weight-bear as tolerated and be out of bed as tolerated. Encouraged elevation to help with the swelling of his left leg. Please notify us if anything worsens. Thank you for this consultation. Patient was seen by myself as well as Dr. Levin. I spent approximately 15 minutes with the patient reviewing his chart, evaluating his foot and discussing treatment plan and recommendations. Supervising Physician Co-Signing Physician Notes I saw and examined the patient. Agree with above note. No surgical indications at present. I spent 17 minutes total on this patient's care. History of Present Illness Reason for Consultation: Left foot cellulitis, septic syndrome, status post second left toe amputation with Dr. Boyd in July Attending Physician: Luis E Veloz MD History of Present Illness Patient is a pleasant 76-year-old male who was admitted to the hospital yesterday with septic syndrome. He had a cystoscopy done on Sunday, November 04, 2021. That evening after the procedure he developed fever of 103 and chills. He presented to the emergency room for evaluation. The assumption was that he had probable urinary tract infection but his urine was tested and no evidence of infection. He did have some erythema and warmth and discomfort with the left lower extremity to the foot. He is status post a left second toe amputation with Dr. Boyd on July 2021. He says ever since that toe has been amputated he has had some burning in the toes themselves. It has healed up. There is no issues with drainage or open wounds to the left foot. He states yesterday it was more red and swollen into the foot and lower leg. This has improved. Has been on IV antibiotics. We are asked by the hospitalist service to evaluate him after obtaining an MRI that suggested some gas in the left second toe that either could be from an open wound or bacterial infection. There is no evidence for abscess or osteomyelitis on the MRI. Allergies Allergy/AdvReac Type Severity Reaction Status Date / Time morphine AdvReac Severe "STOPS MY Verified 11/04/21 12:09 HEART" diazepam AdvReac Intermediate HALLUCINATE Verified 11/04/21 12:09 S hydromorphone [From Dilaudid] AdvReac Intermediate unresponsiv Verified 11/04/21 12:09 eness propoxyphene AdvReac Intermediate DRUG Verified 11/04/21 12:09 INTOLERANCE trazodone AdvReac Intermediate GI UPSET Verified 11/04/21 12:09 Home Medications Medication Instructions Recorded Confirmed Type acetaminophen 500 mg tablet 1,000 mg PO Q8H PRN 06/05/19 10/17/21 History (Tylenol Extra Strength) nitroglycerin 0.4 mg sublingual 0.4 mg SUBLINGUAL UD PRN 11/04/20 10/17/21 History tablet (Nitrostat) atorvastatin 40 mg tablet 40 mg PO QAM #90 tab 12/01/20 10/17/21 Rx pen needle, diabetic 31 gauge x #400 ea 07/11/21 10/17/21 Rx 3/16" (BD Ultra-Fine Mini Pen Needle) clopidogrel 75 mg tablet 75 mg PO DAILY 08/05/21 10/17/21 History pantoprazole 40 mg tablet,delayed 40 mg PO QAM #90 tab 08/05/21 10/17/21 Rx release cyanocobalamin (vitamin B-12) 1,000 mcg PO QAM 08/10/21 10/17/21 History 1,000 mcg tablet (Vitamin B-12) blood sugar diagnostic (OneTouch #100 ea 08/26/21 10/17/21 Rx Ultra Test) iaclbhbz-cru-kyxij acid 300 1 tab PO DAILY 09/01/21 10/17/21 History mcg-lycopene 600 mcg-lutein 300 mcg tablet (Centrum Silver Men) Super Beta Prostate 1 tab PO DAILY 09/05/21 10/17/21 History insulin glargine 100 unit/mL (3 15 unit SUBCUT QPM ml 10/12/21 10/17/21 History mL) subcutaneous pen (Lantus Solostar U-100 Insulin) insulin lispro 100 unit/mL 5 - 7 unit SQ TID ml 10/12/21 10/17/21 History subcutaneous pen (Humalog KwikPen (U-100) Insulin) flash glucose sensor (FreeStyle See Rx Instructions .ROUTE 11/04/21 Rx Kirk 14 Day Sensor) .COMPLEX #2 kit Patient History Medical History Acute diastolic (congestive) heart failure (06/2019) Asymptomatic cholelithiasis Atypical chest pain Benign colonic polyp CAD in [place] artery Cellulitis Cellulitis Cerebrovascular accident Cognitive disorder Controlled type 2 diabetes mellitus with neurologic complication, with long-term current use of insulin Conversion disorder Diabetes mellitus, type 2 Diabetic peripheral neuropathy Dyslipidemia Esophageal reflux Failure of outpatient treatment Headache History of tobacco use Hyperlipidemia Hypertension Kidney stone on right side Left leg pain Left wrist fracture Left-sided chest pain Migraines, neuralgic Myocardial Infarction 2004--follows with Dr. Mejia Nephrolithiasis Neurological deficit present Neuropathy Osteoarthritis Raynauds phenomenon Stroke HX X 2-11/2004 AND 09/2019-F/U DR NÚÑEZ Tubular adenoma of colon Venous (peripheral) insufficiency Venous stasis ulcers of both lower extremities Vitamin D deficiency Weakness Wound of left foot Surgical History History of ankle surgery History of arthroscopy of left knee History of cardiac cath x4-5, last 05/19/2019 [facility] NO RECENT STENTS History of carpal tunnel release of both wrists History of colonoscopy History of heart artery stent (1998) History of lithotripsy x2 History of lumbar discectomy x2 History of open reduction and internal fixation (ORIF) procedure left ankle--hardware in place History of right cataract extraction History of tonsillectomy and adenoidectomy S/P sinus surgery Status post uvulopalatopharyngoplasty Family History Father , age 74 of an MD Diabetes Prostate cancer Colorectal cancer Myocardial infarction Brother Prostate cancer Uncle Colorectal cancer Father Myocardial infarction Mother Myocardial infarction Stroke Other Dementia No family history of adverse response to anesthesia Denies family history of Ovarian cancer Breast cancer Social History Smoking Status: Former smoker Tobacco Type: Cigarettes Age Quit Using Tobacco: 71; packs per day: 3; Cigarettes Per Day: 3; Second Hand Exposure: No; Do You Dip or Chew Tobacco: No; Hx Alcohol Use: No Hx Substance Use: No Preferred Language: Estonian Communication Ability: Effective Visual Impairment: No Limitations Hearing Ability: Normal Redeye Gunner Required: No Beliefs That Will Affect Care: None marital status: marital status details: 3 children Current Living Situation: Alone current occupational status: retired 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 There is no significant erythema of the foot or the toes. He has some mild tenderness at the very tip of his left great toe. Nontender over the left second toe. The surgical incision is healed nicely. There are no open wounds. There is no edema, warmth or erythema. Dorsalis pedis pulses palpated trace, 1+ posterior tibial. He does have some edema in the lower leg but does not past his ankle today. He is full range of motion of the ankle with some mild chronic discomfort but no warmth. No effusion to the left ankle. Strength of his left ankle is 5/5. He does have some erythematous, warmth, tender to touch and shiny skin on the left anterior souza. Full knee range of motion. No knee effusion. No knee involvement. Results & Data ([facility]) Vital Signs (Past 12 Hours) Vital Signs Temp Pulse Pulse Resp BP Pulse Ox 11/06/21 07:28 36.9 C 90 20 116/67 95 11/05/21 22:58 77 Laboratory Results 11/06/21 11/06/21 11/06/21 Range/Units 07:32 06:11 06:11 WBC (4.8-10.8) K/uL RBC (4.7-6.1) M/uL Hgb (14.0-18.0) g/dL Hct (42-52) % MCV (80-100) fL MCH (25-34) pg MCHC (32-36) g/dL RDW Std Deviation (36.4-46.3) fL RDW Coeff of Gissel (11.5-14.5) % Plt Count (130-400) K/uL MPV (7.4-10.4) fL Immature Gran % (Auto) % Neut % (Auto) % Lymph % (Auto) % [place] % (Auto) % Eos % (Auto) % Baso % (Auto) % Neut # (Auto) (1.4-6.5) K/uL Lymph # (Auto) (1.2-3.4) K/uL [place] # (Auto) (0.11-0.59) K/uL Eos # (Auto) (0-0.5) K/uL Baso # (Auto) (0-0.2) K/uL Immature Gran # (Auto) (0.00-0.02) K/uL ESR 11 (0-20) mm/hr Sodium (136-145) mmol/L Potassium (3.5-5.1) mmol/L Chloride (98-107) mmol/L Carbon Dioxide (21-32) mmol/L Anion Gap (3-11) BUN (6-23) mg/dl Creatinine (0.6-1.4) mg/dl Est Cr Clr Drug Dosing ml/min Est GFR ( Amer) ml/min Est GFR (Non-Af Amer) ml/min BUN/Creatinine Ratio (10-20) Glucose (70-99(Fasting)) mg/dl POC Glucose 101 H (70-99) mg/dl Estimat Average Glucose Hemoglobin A1c Calcium (8.5-10.1) mg/dl Magnesium (1.7-2.4) mg/dl Total Bilirubin (0.2-1.0) mg/dl AST (13-39) U/L ALT (7-52) U/L Alkaline Phosphatase (34-104) U/L Troponin I High Sens (0-20) pg/ml C-Reactive Protein (0-0.5) mg/dl Total Protein (6.0-8.3) gm/dl Albumin (3.4-5.0) gm/dl Globulin (2.5-4.0) gm/dl Albumin/Globulin Ratio (0.9-2) Procalcitonin 0.08 (0-0.5) ng/ml 11/06/21 11/06/21 11/06/21 Range/Units 06:11 06:11 06:11 WBC 4.18 L (4.8-10.8) K/uL RBC 4.12 L (4.7-6.1) M/uL Hgb 13.0 L (14.0-18.0) g/dL Hct 38.0 L (42-52) % MCV 92.2 (80-100) fL MCH 31.6 (25-34) pg MCHC 34.2 (32-36) g/dL RDW Std Deviation 50.5 H (36.4-46.3) fL RDW Coeff of Gissel 14.9 H (11.5-14.5) % Plt Count 119 L (130-400) K/uL MPV 10.7 H (7.4-10.4) fL Immature Gran % (Auto) 0.2 % Neut % (Auto) 77.6 % Lymph % (Auto) 12.7 % [place] % (Auto) 5.7 % Eos % (Auto) 3.3 % Baso % (Auto) 0.5 % Neut # (Auto) 3.24 (1.4-6.5) K/uL Lymph # (Auto) 0.53 L (1.2-3.4) K/uL [place] # (Auto) 0.24 (0.11-0.59) K/uL Eos # (Auto) 0.14 (0-0.5) K/uL Baso # (Auto) 0.02 (0-0.2) K/uL Immature Gran # (Auto) 0.01 (0.00-0.02) K/uL ESR (0-20) mm/hr Sodium 138 (136-145) mmol/L Potassium 4.2 (3.5-5.1) mmol/L Chloride 107 (98-107) mmol/L Carbon Dioxide 25 (21-32) mmol/L Anion Gap 6 (3-11) BUN 14 (6-23) mg/dl Creatinine 1.23 (0.6-1.4) mg/dl Est Cr Clr Drug Dosing 51.9 ml/min Est GFR ( Amer) 66.1 ml/min Est GFR (Non-Af Amer) 57.1 ml/min BUN/Creatinine Ratio 11.4 (10-20) Glucose 101 H (70-99(Fasting)) mg/dl POC Glucose (70-99) mg/dl Estimat Average Glucose Pending Hemoglobin A1c Pending Calcium 8.2 L (8.5-10.1) mg/dl Magnesium 2.0 (1.7-2.4) mg/dl Total Bilirubin 0.9 (0.2-1.0) mg/dl AST 10 L (13-39) U/L ALT 14 (7-52) U/L Alkaline Phosphatase 46 (34-104) U/L Troponin I High Sens (0-20) pg/ml C-Reactive Protein 5.38 H (0-0.5) mg/dl Total Protein 5.3 L (6.0-8.3) gm/dl Albumin 3.1 L (3.4-5.0) gm/dl Globulin 2.2 L (2.5-4.0) gm/dl Albumin/Globulin Ratio 1.4 (0.9-2) Procalcitonin (0-0.5) ng/ml 11/05/21 11/05/21 11/05/21 Range/Units 20:18 17:41 16:12 WBC (4.8-10.8) K/uL RBC (4.7-6.1) M/uL Hgb (14.0-18.0) g/dL Hct (42-52) % MCV (80-100) fL MCH (25-34) pg MCHC (32-36) g/dL RDW Std Deviation (36.4-46.3) fL RDW Coeff of Gissel (11.5-14.5) % Plt Count (130-400) K/uL MPV (7.4-10.4) fL Immature Gran % (Auto) % Neut % (Auto) % Lymph % (Auto) % [place] % (Auto) % Eos % (Auto) % Baso % (Auto) % Neut # (Auto) (1.4-6.5) K/uL Lymph # (Auto) (1.2-3.4) K/uL [place] # (Auto) (0.11-0.59) K/uL Eos # (Auto) (0-0.5) K/uL Baso # (Auto) (0-0.2) K/uL Immature Gran # (Auto) (0.00-0.02) K/uL ESR (0-20) mm/hr Sodium (136-145) mmol/L Potassium (3.5-5.1) mmol/L Chloride (98-107) mmol/L Carbon Dioxide (21-32) mmol/L Anion Gap (3-11) BUN (6-23) mg/dl Creatinine (0.6-1.4) mg/dl Est Cr Clr Drug Dosing ml/min Est GFR ( Amer) ml/min Est GFR (Non-Af Amer) ml/min BUN/Creatinine Ratio (10-20) Glucose (70-99(Fasting)) mg/dl POC Glucose 101 H 109 H (70-99) mg/dl Estimat Average Glucose Hemoglobin A1c Calcium (8.5-10.1) mg/dl Magnesium (1.7-2.4) mg/dl Total Bilirubin (0.2-1.0) mg/dl AST (13-39) U/L ALT (7-52) U/L Alkaline Phosphatase (34-104) U/L Troponin I High Sens 18.8 D (0-20) pg/ml C-Reactive Protein (0-0.5) mg/dl Total Protein (6.0-8.3) gm/dl Albumin (3.4-5.0) gm/dl Globulin (2.5-4.0) gm/dl Albumin/Globulin Ratio (0.9-2) Procalcitonin (0-0.5) ng/ml 11/05/21 11/05/21 11/05/21 Range/Units 12:37 11:08 06:45 WBC (4.8-10.8) K/uL RBC (4.7-6.1) M/uL Hgb (14.0-18.0) g/dL Hct (42-52) % MCV (80-100) fL MCH (25-34) pg MCHC (32-36) g/dL RDW Std Deviation (36.4-46.3) fL RDW Coeff of Gissel (11.5-14.5) % Plt Count (130-400) K/uL MPV (7.4-10.4) fL Immature Gran % (Auto) % Neut % (Auto) % Lymph % (Auto) % [place] % (Auto) % Eos % (Auto) % Baso % (Auto) % Neut # (Auto) (1.4-6.5) K/uL Lymph # (Auto) (1.2-3.4) K/uL [place] # (Auto) (0.11-0.59) K/uL Eos # (Auto) (0-0.5) K/uL Baso # (Auto) (0-0.2) K/uL Immature Gran # (Auto) (0.00-0.02) K/uL ESR (0-20) mm/hr Sodium (136-145) mmol/L Potassium (3.5-5.1) mmol/L Chloride (98-107) mmol/L Carbon Dioxide (21-32) mmol/L Anion Gap (3-11) BUN (6-23) mg/dl Creatinine (0.6-1.4) mg/dl Est Cr Clr Drug Dosing ml/min Est GFR ( Amer) ml/min Est GFR (Non-Af Amer) ml/min BUN/Creatinine Ratio (10-20) Glucose (70-99(Fasting)) mg/dl POC Glucose 154 H (70-99) mg/dl Estimat Average Glucose Hemoglobin A1c Calcium (8.5-10.1) mg/dl Magnesium (1.7-2.4) mg/dl Total Bilirubin (0.2-1.0) mg/dl AST (13-39) U/L ALT (7-52) U/L Alkaline Phosphatase (34-104) U/L Troponin I High Sens 23.2 H (0-20) pg/ml C-Reactive Protein 2.91 H (0-0.5) mg/dl Total Protein (6.0-8.3) gm/dl Albumin (3.4-5.0) gm/dl Globulin (2.5-4.0) gm/dl Albumin/Globulin Ratio (0.9-2) Procalcitonin (0-0.5) ng/ml Blood cultures are pending and currently negative. Diagnostic Findings MR foot LT wo/w con CLINICAL HISTORY: Cellulitis. Second toe amputation in July. Second toe wound. Evaluate for osteomyelitis. COMPARISON STUDY: Left foot radiographs July 21, 2021. TECHNIQUE: Utilizing a 1.5 Katlyn magnet and dedicated coil, multiplanar, multiecho imaging of the left forefoot was performed pre and postcontrast administration. Intravenous injection of 8.2 cc of Gadavist was uneventful. FINDINGS: A marker was placed on the skin at site of wound of the left second toe. A few foci of susceptibility artifact suggest gas related to the wound. There is soft tissue edema and enhancement suggestive of cellulitis. No rim- enhancing fluid collection within the left second toe to suggest an abscess. This exam is mildly compromised by motion artifact. There are expected postoperative findings following amputation of the second toe at the level of the proximal interphalangeal joint. There is no evidence for acute osteomyelitis within the proximal phalanx of the left second toe. There is apparent mild marrow edema within the distal phalanx of the left first toe. There is also apparent mild marrow edema within the distal phalanx of the left third toe. However, this could be artifactual. T1 signal is preserved. No enhancement within these bones is identified on the postcontrast images. Therefore, there is no MR evidence for acute osteomyelitis within the left forefoot. Tarsometatarsal joints are intact. No fluid collection is identified. Mild dorsal subcutaneous edema of the left forefoot is present. IMPRESSION: 1. Left second toe wound. Small amount of gas within the second toe could be due to the open wound. A gas forming infectious process could appear similar. Findings suggestive of cellulitis of the second toe without abscess. No evidence for acute osteomyelitis within the left second toe following amputation. 2. Apparent marrow edema within several distal phalanges of the left foot which is probably artifactual. No evidence for acute osteomyelitis.
[2021-11-06] MEDS: CYANOCOBALAMIN (B-12) 500 MCG TABLET PO SCH (09:54)
--- NOTE | 2021-11-06 10:37 | Hospitalist Progress Note ---
Date of Service November 06, 2021 Assessment & Plan (1) Sepsis: Plan: 76-year-old white male presented to the emergency department complaining of rigors/subjective fevers and chills Found to have early sepsis syndrome -- Marginally hypotensive (90s/50s). Responded to IV hydration -- Slightly tachycardic (110). Responded to IV hydration -- Mild leukocytosis (11.32) with mild left shift -- Low-grade fever99.6 F -- Lactic acid normal at 1.8 - initially, source of sepsis syndrome thought to be urinary as he did undergo cystoscopy with prostate biopsy earlier that day. - His urinalysis is not grossly infected (clear, nitrite negative, is trace leukocyte esterase positive). UC showing NGTD - CXR: No acute cardiopulmonary process. No respiratory symptoms - CT of A/P (given vague complaints of abd pain): no acute process - Did appear to have very mild cellulitis of the left foot. I suspect this is likely the cause. --Does have history of osteomyelitis in this region s/p distal amputation of the second toe --MRI obtained showing no evidence of Osteo. Gas noted without drainage abscess - ESR normal. CRP elevated at 5.38 - Blood cultures NGTD - Since he is complaining of abdominal pain, will obtain a CT of the abdomen/pelvis with oral contrast only (given need for IV contrast for MRI) - Empirically started on cefepime/daptomycin (given history of VRE UTI in the past)--> change to Clinda (see below) (2) Cellulitis: Plan: Patient with mild cellulitis of the left foot tracking proximally towards the souza Suspect etiology to #1 MRI obtained showing no evidence of osteomyelitis or drainable abscess. There is gas seen and findings consistent with cellulitis Initially empirically started on cefepime/daptomycin. Given gas seen on imaging, transition to clindamycin which should provide adequate anaerobic coverage and also MRSA coverage Orthopedic consult placed. Plan of care discussed with Ortho--> no surgical intervention needed at this time Continue to follow clinically (3) JUANCARLOS (acute kidney injury): Plan: Creatinine 1.46 upon presentation (with baseline around 1.1) Likely related to mild sepsis syndrome Improved with IV hydration (down to 1.2) Hold nephrotoxic agents and renally adjust medications (4) Suicidal ideation: Plan: Patient made several comments regarding self-harm while in the ER. During my encounter he denies active suicidal or homicidal ideations. States that he does not wish to harm himself. He was verbally contracted for safety. 302 petition was initiated in the ER History of bipolar/schizophrenia. 302 05/08 with conversion to 303. Discharged with antidepressive medications and mood stabilizers; however, patient self discontinued these as "not necessary" Reports a plan to harm himself which included throwing himself in front of a truck. No active attempts at self-harm Maintain one-to-one sitter and suicide precautions Psychiatry consultation appreciated regarding possible 302 Has since been seen by psychiatry and placed on Invega. They will continue to follow to determine need for inpatient psychiatric stay versus follow- up/outpatient care. Appreciate assistance (5) Hyperlipidemia: Plan: Chronic. Patient on atorvastatin will hold while on daptomycin (6) Diabetes mellitus, type 2: Plan: Patient with diabetes on insulin therapy. Last hemoglobin A1c on 07/22/2021 = 7.8 Continue Lantus 7 units twice daily Insulin sliding scale Goal blood sugar 100-140 Update A1c (7) Hypertension: Plan: Blood pressure borderline low in setting of presumed infection. Presently 98/59 after receiving 1500 mL of crystalloid infusion. Patient with reported history of hypertension however, is not presently taking any medications for this. Improved with IV hydration Current BP 116/67. (8) CAD in [place] artery: Plan: Patient reports chest pain earlier in the evening ([employer] WORK[employer]) which has since resolved. continue Telemetry monitoring Troponin remains negative Continue Plavix 75 mg p.o. daily Statin therapy held while on daptomycin. Okay to resume upon discharge Plan: Plan of care to be discussed with Dr. Veloz. Further orders as warranted Admission and Anticipated Discharge Date Admission Date: November 06, 2021 Subjective Patient seen on daily rounds today. Vocalizes no complaints or concerns. Had continued rigors last evening without fever. Otherwise, denies headache, nasal congestion, sore throat, cough, chest pain, shortness of breath, abdominal pain, nausea or vomiting, GI/ symptomatology. Culture data negative thus far Review of Systems Review of Systems: All systems reviewed and are unremarkable except as noted in HPI and below Denies headache, nasal congestion, sore throat, cough, chest pain, shortness of breath, palpitations, orthopnea, PND, vomiting, diarrhea, constipation, dysuria, hematuria, frequency, back pain, joint pain or swelling, easy bruising or bleeding, skin lesions or rashes. Physical Exam Physical Exam: General: Resting comfortably in his hospital bed. His affect is bright when talking about his infection/sepsis syndrome but when talking about his underlying psychiatric issues, he shuts down and cries. Immediately able to go back to talking with a bright affect. He has a very pseudobulbar affect. He does not appear ill or toxic HEENT: Head is AT/NC. Buccal mucosa is moist and pink Neck: No JVD. Negative hepatojugular reflex Cardiac: RRR without M/G/R Lungs: CTA without W/R/R Abdomen: Normoactive X4. Soft. Mild epigastric and left upper quadrant tenderness. Mild LLQ tenderness. No guarding or rigidity Extremities: trace pitting edema of the B/L LE (but improved) and pt reports back to baseline. still with chronic vascular changes of the bilateral LE (L>R) but the superimposed erythema has nearly resolved Neuro: A&O X4. Cranial nerves II through XII are grossly intact. No focal neuro deficits Skin: No obvious skin lesions or rashes Psych: Again, pseudobulbar affect noted Results & Data Results & Data ([facility]) Vital Signs (Past 12 Hours) Vital Signs Temp Pulse Pulse Resp BP Pulse Ox 11/06/21 08:00 87 11/06/21 07:28 36.9 C 90 20 116/67 95 11/05/21 22:58 77 Laboratory Results 11/06/21 06:11 11/06/21 06:11 PG Care Time/CCT Total # of Minutes Spent Total Time Spent with Patient: Total time spent is greater than 50% in coordination of care (as documented) at patient's floor/unit and/or counseling patient: Coding Level of Care Code 24486 Subseq Hosp Care Lvl 2 Diagnoses Sepsis A41.9 Cellulitis L03.90 JUANCARLOS (acute kidney injury) N17.9 Suicidal ideation R45.851 Hyperlipidemia E78.5 Hyperlipidemia type: unspecified Diabetes mellitus, type 2 E11.42; Z79.4 Diabetes mellitus complication detail: with polyneuropathy Diabetes mellitus complication status: with neurologic complications Diabetes mellitus snf insulin use: with personalized living manager use Hypertension I10 Hypertension type: essential hypertension CAD in [place] artery I25.10 (1) Diabetes mellitus, type 2 Diabetes mellitus complication detail: with polyneuropathy Diabetes mellitus complication status: with neurologic complications Diabetes mellitus snf insulin use: with personalized living manager use Qualified Code(s): E11.42 - Type 2 diabetes mellitus with diabetic polyneuropathy; Z79.4 - rn recovery (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 (2) Hyperlipidemia Hyperlipidemia type: unspecified Qualified Code(s): E78.5 - Hyperlipidemia, unspecified (3) Hypertension Hypertension type: essential hypertension Qualified Code(s): I10 - Essential (primary) hypertension
--- NOTE | 2021-11-06 12:39 | Communication Note ---
Date of Service: November 06, 2021 Interim progress reviewed. No oseto or acute abdominal process, continues treatment for sepsis and hydration. Reported still having auditory command hallucinations intermittently (mainly at night). During med teaching yesterday patient mentioned perhaps he was tried on Invega before but may be confusing with Risperdal. Will continue Invega 3 mg until med hx can be confirmed with his previous outpatient psychiatrist at [facility]. Patient had refused to sign for the doctor yesterday but did sign today. He has continued to voice willingness for voluntary commitment so unlikely will need 302 but should remain on 1-on-1 on medical floor as not a low ligature risk/secure environment and is currently meeting inpatient criteria for mental health. Will continuously evaluate suicide risk pending medical clearance. The main stressor is that he needs a more supportive living setting so this should be explored as depending on time to clearance may or may not continue to meet inpatient criteria.
[2021-11-07] MEDS: CLINDAMYCIN 600 MG in DEXTROSE 5% 50 ML IV SCH ×2 (01:10→08:23)
[2021-11-07] MEDS: PALIPERIDONE 1.5 MG TABCR PO SCH (07:44)
[2021-11-07] MEDS: INSULIN GLARGINE SOLOSTAR 100 UNITS/ML 3 ML PEN SC SCH (07:45)
[2021-11-07 07:48] LABS: Estimated Average Glucose 163 mg/dl; Hemoglobin A1C 7.3 % (4.5-5.6)
[2021-11-07 08:37] LABS: Basophils # (auto) 0.01 K/uL (0-0.2); Basophils % (auto) 0.4 %; Eosinophils # (auto) 0.08 K/uL (0-0.5); Hematocrit (blood only) 43.9 % (42-52); Hemoglobin 14.9 g/dL (14.0-18.0); Immature Granulocytes # (auto) 0.01 K/uL (0.00-0.02); Immature Granulocytes % (auto) 0.4 %; Lymphocytes # (auto) 0.44 K/uL (1.2-3.4); Lymphocytes % (auto) 16.5 %; Mean Corpuscular Hemoglobin 30.9 pg (25-34); Mean Corpuscular Hgb Conc 33.9 g/dL (32-36); Mean Corpuscular Volume 91.1 fL (80-100); Mean Platelet Volume 10.6 fL (7.4-10.4); Monocytes # (auto) 0.24 K/uL (0.11-0.59); Neutrophils # (auto) 1.88 K/uL (1.4-6.5); Neutrophils % (auto) 70.7 %; Platelet Count 117 K/uL (130-400); RDW Coefficient of Variation 14.7 % (11.5-14.5); RDW Standard Deviation 49.1 fL (36.4-46.3); Red Blood Count 4.82 M/uL (4.7-6.1); White Blood Count 2.66 K/uL (4.8-10.8)
[2021-11-07 09:05] LABS: BUN Creatinine Ratio 15.2 (10-20); Calcium 8.7 mg/dl (8.5-10.1); Est GFR (African American) 74.1 ml/min; Est GFR (Non-African American) 63.9 ml/min; Magnesium 2.2 mg/dl (1.7-2.4); Potassium 3.9 mmol/L (3.5-5.1)
[2021-11-07] MEDS: INSULIN ASPART PER UNIT SC SCH ×2 (09:16→12:43)
[2021-11-07] MEDS: CYANOCOBALAMIN (B-12) 500 MCG TABLET PO SCH (09:33)
[2021-11-07] MEDS: PANTOprazole 40 MG TAB PO SCH (09:34)
[2021-11-07] MEDS: ENOXAPARIN INJ 40 MG/0.4 ML SYR SQ SCH (09:34)
[2021-11-07] MEDS: CLOPIDOGREL BISULFATE 75 MG TAB PO SCH (09:34)
--- NOTE | 2021-11-07 09:34 | XRay Report ---
XR ankle LT min 3V routine CLINICAL HISTORY: pain TECHNIQUE: 3 views of the left ankle were obtained. Comparison: Comparison is made to ankle radiograph 07/21/2021 FINDINGS: Plate and screw fixation hardware is seen in the bilateral malleoli. The alignment is anatomic. The a nkle mortise is intact. The talar dome is smooth. There is no ankle effusion. Vascular calcifications are seen. Mild soft tissue swelling is seen. IMPRESSION: Plate and screw fixation hardware without evidence of acute abnormality. ACT 112: Negative or not required by law. Electronically signed by: Suresh Pena M.D. 11/07/2021 9:33 AM
--- NOTE | 2021-11-07 09:48 | Progress Notes ---
DATE OF NOTE: 11/07/2021 The patient is seen and evaluated. Consultation and history and physical were reviewed. He apparent ly has developed a sepsis type illness over the past few days, causing admission to the hospital. He is status post a left second toe amputation for osteomyelitis, which has done well. He reports no r eal issues with the toes at present. He has been having some pain, redness and swelling of the ankle and lower leg area. This seems to have gotten much better recently. Foot MRI is reviewed, which demonstrates no clear cut evidence of osteomyelitis. No evidence of absc ess, but there is some early evidence of cellulitis in the foot, ankle area. There was a question of some gas in the second toe area, but there is no open wound. White count initially was 11, but is n ow 2.6. Sed rate is 11. Hemoglobin A1c 7.3. C-reactive protein 5.38. He has been afebrile. His v ital signs stable. I reviewed the MRI. On exam, the left foot is examined. The toes are completely normal. There is no swelling or erythem a. There is no open wound. He does have a 3 x 5 very superficial benign appearing excoriation over the dorsal aspect of the right 3rd toe. There is no drainage or erythema. There is no swelling. He has full movement of toes and ankles bilaterally. He reports a little bit of lateral sided ankle di scomfort with that. The posterior tibial pulse is 1+ dorsalis pedis nonpalpable. There is no crepit ation or evidence of subcutaneous emphysema. The second toe looks 100% normal. His strength is norm al. He can bend his knee. He has tenderness essentially over the lower half of the left leg fairly circumferentially. This goes down to the ankle. Tender areas are really over the anterior souza and lateral side of the ankle. There is 1+ pitting edema. There is some faint erythema present. There are several millimeters eschar over the Achilles area, which is benign in appearance. There is no pu rulent drainage. I do not feel any evidence of an abscess anywhere on the leg. The foot is not swol tonya. He relates a previous history of a left ankle fracture with a possible infection and then he had surg ruth with Dr. Ramos. I reviewed the old records and he had a fracture in [place]. He came to [facility] and Dr. Ramos removed the hardware and there was no mention in those records of any type of ankle infection. I think that he has potentially left leg cellulitis, which may have caused his situation, although ot her sources have not been completely ruled out. I do not think that he has any evidence of infection in his foot. The findings seen on the MRI are clinically not compatible with having air in the tiss ues. Maybe this is artifactual from suture material or something else, but there is nothing that sug gests any type of necrotizing fasciitis or ongoing infection in the second toe. I will order some x- rays of the foot and ankle for further evaluation, but at this time, I would continue to treat with a ppropriate IV antibiotics for cellulitis and workup for other causes of potential sepsis syndrome. Caroline levate the leg. Job ID: [id number]
--- NOTE | 2021-11-07 09:49 | XRay Report ---
XR foot LT min 3V routine CLINICAL HISTORY: Left foot pain. Previous ankle fracture.. COMPARISON STUDY: No previous studies for comparison. TECHNIQUE: 3 left foot views FINDINGS: Bones: The patient is status post dilatation of the middle and distal phalanges of the second toe. Th ere is no evidence for an acute fracture or dislocation. There is no lytic or blastic lesion. Joints: There is mild narrowing of the IP joints and first MTP joint. The remaining joint spaces are maintained. The bones are in anatomic alignment. Soft tissues: There is no focal soft tissue abnormality. There is no radiopaque foreign body. IMPRESSION: 1. No acute osseous pathology. 2. Osteoarthritis. ACT 112: Negative or not required by law. Electronically signed by: Stevan Modi M.D. 11/07/2021 9:48 AM
--- NOTE | 2021-11-07 12:46 | Communication Note ---
Date of Service: November 07, 2021 patient seen, interim progress reviewed with nursing and Shaina Del Toro PA-C. 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 Patient is easily agitated, pretended he couldn't talk at one point when emotionally charged subjects are brought up. Will be 201 to 3S, multiple risk factors for SI. Still awaiting confirmation of past med trials from [facility], last seen 03/[address] Knox.
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
--- NOTE | 2021-11-07 15:29 | Discharge Summary ---
Date of Service November 07, 2021 Admission HPI Per Admitting Provider Tian Blanchard is a 76yo male with history of HTN, HLP, GERD, DM and Schizophrenia presenting with fever, chills, rigors and hypotension. Patient has been dealing with prostatitis over the last month. He completed 7 days of Bactrim followed by 14 days of ciprofloxacin with temporary resolution of his symptoms. He was seen by urology today for work-up of hematuria as well as lower urinary tract symptoms. 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 No mass. Patient reports procedure was completed in the afternoon. He went home and around 1700 developed fever to 103 as well as shaking chills and dizziness. He does report he had a brief "blackout" episode after getting up from his chair. He also states that his legs are weak and he had difficulty ambulating as well as some chest discomfort. In the ER patient febrile at 38, tachycardic 102 bpm, blood pressure slightly low at 94/54. Patient with adequate respirations saturating well on room air. He was administered 1500 mL of crystalloid with improvement in blood pressure.While in the ER patient made several statements of self-harm, stating that he "wanted to jump in front of a bus". He also reports hearing voices which tell him to follow them. He denies active suicidal or homicidal ideations. Verbally contracted for safety. ER course:Cefepime 2 g, normal saline x1500 mL, acetaminophen x1 g Principal Diagnosis 1. Sepsis syndromeresolved 2. Cellulitis of left footimproved 3. Suicidal ideationtransfer to inpatient behavioral health 4. Uncontrolled bipolar disorder and schizophrenia Discharge Exam General: Resting comfortably in his hospital bed. His affect is bright when talking about his infection/sepsis syndrome but when talking about his underlying psychiatric issues, he shuts down and cries. Immediately able to go back to talking with a bright affect. He has a very pseudobulbar affect. He does not appear ill or toxic HEENT: Head is AT/NC. Buccal mucosa is moist and pink Neck: No JVD. Negative hepatojugular reflex Cardiac: RRR without M/G/R Lungs: CTA without W/R/R Abdomen: Normoactive X4. Soft. Mild epigastric and left upper quadrant tenderness. Mild LLQ tenderness. No guarding or rigidity Extremities: trace pitting edema of the B/L LE (but improved) and pt reports back to baseline. still with chronic vascular changes of the bilateral LE (L>R) but the superimposed erythema has nearly resolved Neuro: A&O X4. Cranial nerves II through XII are grossly intact. No focal neuro deficits Skin: No obvious skin lesions or rashes Psych: Again, pseudobulbar affect noted Discharge Data Allergies Allergy/AdvReac Type Severity Reaction Status Date / Time morphine AdvReac Severe "STOPS MY Verified 11/04/21 12:09 HEART" diazepam AdvReac Intermediate HALLUCINATE Verified 11/04/21 12:09 S hydromorphone [From Dilaudid] AdvReac Intermediate unresponsiv Verified 11/04/21 12:09 eness propoxyphene AdvReac Intermediate DRUG Verified 11/04/21 12:09 INTOLERANCE trazodone AdvReac Intermediate GI UPSET Verified 11/04/21 12:09 Consultations 11/05/21 03:20 ED Decision to Admit Stat 11/05/21 05:36 Consult Psychiatry Routine 11/05/21 05:52 Consult Behavioral Health Liaison Routine 11/06/21 08:34 Consult Orthopedic Surgery Routine Ordered Studies 11/05/21 08:49 CT abd pelvis oral con only Urgent IMPRESSION: 1. Bilateral nephrolithiasis. No ureteral calculi or hydronephrosis. 2. No acute process within the abdomen or pelvis on unenhanced exam. 3. No bowel obstruction. Normal appendix. 4. Enlarged prostate. MR foot LT wo/w con Urgent IMPRESSION: 1. Left second toe wound. Small amount of gas within the second toe could be due to the open wound. A gas forming infectious process could appear similar. Findings suggestive of cellulitis of the second toe without abscess. No evidence for acute osteomyelitis within the left second toe following amputation. 2. Apparent marrow edema within several distal phalanges of the left foot which is probably artifactual. No evidence for acute osteomyelitis. X-ray of the left ankle: IMPRESSION: Plate and screw fixation hardware without evidence of acute abnormality. X-ray of the left foot: IMPRESSION: 1. No acute osseous pathology. 2. Osteoarthritis. Hospital Course (1) Sepsis: 76-year-old white male presented to the emergency department complaining of rigors/subjective fevers and chills Found to have early sepsis syndrome -- Marginally hypotensive (90s/50s). Responded to IV hydration -- Slightly tachycardic (110). Responded to IV hydration -- Mild leukocytosis (11.32) with mild left shift -- Low-grade fever99.6 F -- Lactic acid normal at 1.8 - initially, source of sepsis syndrome thought to be urinary as he did undergo cystoscopy with prostate biopsy earlier that day. - His urinalysis is not grossly infected (clear, nitrite negative, is trace leukocyte esterase positive). UC showing NGTD - CXR: No acute cardiopulmonary process. No respiratory symptoms - CT of A/P (given vague complaints of abd pain): no acute process - Did appear to have very mild cellulitis of the left foot. I suspect this is likely the cause. --Does have history of osteomyelitis in this region s/p distal amputation of the second toe --MRI obtained showing no evidence of Osteo. Gas noted without drainage abscess - ESR normal. CRP elevated at 5.38 - Blood cultures NGTD - Since he is complaining of abdominal pain, will obtain a CT of the abdomen/pelvis with oral contrast only (given need for IV contrast for MRI) - Empirically started on cefepime/daptomycin (given history of VRE UTI in the past)--> change to Clinda (see below) (2) Cellulitis: Patient with mild cellulitis of the left foot tracking proximally towards the souza Suspect etiology to #1 MRI obtained showing no evidence of osteomyelitis or drainable abscess. There is gas seen and findings consistent with cellulitis Initially empirically started on cefepime/daptomycin. Given gas seen on imaging, transitioned to clindamycin which should provide adequate anaerobic coverage and also MRSA coverage (to conclude after last dose on 11/12) --Recommend probiotic empirically while on clindamycin for GI protection and prevention of C. difficile Orthopedic consult placed given gas seen on MRI Plan of care discussed with Ortho--> no surgical intervention needed at this time. Appreciate assistance Continue to follow clinically (3) JUANCARLOS (acute kidney injury): Creatinine 1.46 upon presentation (with baseline around 1.1) Likely related to mild sepsis syndrome Improved with IV hydration (down to 1.2) Hold nephrotoxic agents and renally adjust medications (4) Suicidal ideation: Patient made several comments regarding self-harm while in the ER. During my encounter he denies active suicidal or homicidal ideations. States that he does not wish to harm himself. He was verbally contracted for safety. 302 petition was initiated in the ER History of bipolar/schizophrenia. 302 05/08 with conversion to 303. Discharged with antidepressive medications and mood stabilizers; however, patient self discontinued these as "not necessary" Reports a plan to harm himself which included throwing himself in front of a truck. No active attempts at self-harm Maintain one-to-one sitter and suicide precautions Psychiatry consultation appreciated regarding possible 302 Has since been seen by psychiatry and placed on Invega. Psychiatry has been following along and plan is to discharge today with readmission to inpatient behavioral health for voluntary inpatient stay (5) Hyperlipidemia: Chronic. Patient on atorvastatin Atorvastatin held upfront while on daptomycin but okay to resume (6) Diabetes mellitus, type 2: Patient with diabetes on insulin therapy. Last hemoglobin A1c on 07/22/2021 = 7.8 Resume Lantus 15 units daily Utilized sliding scale while in house. No need to continue this Goal blood sugar 100-140 A1c acceptable at 7.3% (7) Hypertension: Blood pressure borderline low in setting of presumed infection. Presently 98/59 after receiving 1500 mL of crystalloid infusion. Patient with reported history of hypertension however, is not presently taking any medications for this. Improved with IV hydration Current BP 143/78 Recommend follow-up with PCP regarding blood pressure. May need antihypertensive agents added. Would consider lisinopril for nephro protection (8) CAD in [place] artery: Patient reports chest pain earlier in the evening (EKG TECH) which has since resolved. continue Telemetry monitoring Troponin remains negative Continue Plavix 75 mg p.o. daily Statin therapy held while on daptomycin. Okay to resume upon discharge Mild leukopenia noted today but differential normal. This could be antibiotic driven. This also could be due to his Invega. Would recommend follow-up CBC in 1 week to trend Patient is medically and hemodynamically stable for discharge with continued oral antibiotic therapy. Plan is to discharge from medical stay and readmit to inpatient behavioral health for continued psychiatric care Patient discussed with and seen and agreed upon by Dr. No Total Time Total Time Spent Total Time Spent (In Minutes): 45 minutes including time spent with patient, discussion with psychiatry, discussion with case management, preparation of documentation and coordination of care Discharge Plan Discharge Items Patient Disposition: Transfer Behavioral Health Fac Reason For Visit: SEPSIS Discharge Diagnosis: 1. Sepsis syndromeresolved 2. Cellulitis of left footimproved 3. Suicidal ideationtransfer to inpatient behavioral health 4. Uncontrolled bipolar disorder and schizophrenia Activity: Resume your previous activity Non-emergency contact: Primary Care Provider and Psychiatrist Call non-emergency contact if: you have any medication questions and you have a fever Follow-up/Referrals: Fox Moran MD [Primary Care Provider] - Diet: Carb Consistent or DM2 Addtl Attending Provider Instructions: You were hospitalized with sepsis syndrome (which included an elevated heart rate, a low blood pressure, a mildly elevated white blood cell count and fever) Initially, the source of your infection was unclear; however, after further review it was apparent that you had a mild infection of your left foot (known as cellulitis). The MRI of your foot showed superficial infection consistent with cellulitis. The bone was not involved. In addition, your blood cultures have remained negative (meaning that the infection did not spread to your bloodstream) You have responded favorably to antibiotics. You should complete a full course of antibiotics (which will conclude after your last dose on 11/12). This antibiotic can cause diarrhea. To help, you have been prescribed a probiotic (which helps replenish the good bacteria in your gut). If your diarrhea persists after completing antibiotics, you should notify your healthcare provider. If you like yogurt/cheese, would eat yogurt/cheese with live cultures. In addition to this infection, you also vocalized to multiple providers your wishes to harm yourself. You have been seen by psychiatry who is recommending transition to inpatient behavioral health unit to help regulate your medications. You have agreed. From a medical standpoint, you no longer need to stay in the hospital in regards to this infection but will be transitioned to behavioral health in regards to your mental health. Follow-up with your PCP upon discharge from the hospital It is imperative that you not stop the psychiatric medications started during this hospital stay without first consulting with psych Pending Studies at Discharge: No Stand-Alone Forms: [facility] Skilled Items Lines: None Medications and DC Order Prescriptions: New paliperidone 1.5 mg Tablet Extended Release 24 Hr 3 mg PO QAM Qty: 30 RF: 0 clindamycin HCl 300 mg capsule 600 mg PO Q8H 7 Days Qty: 32 RF: 0 Saccharomyces boulardii [Florastor] 250 mg capsule 250 mg PO BID Qty: 11 RF: 0 Continued atorvastatin 40 mg tablet 40 mg PO QAM Qty: 90 RF: 3 (DME) pen needle, diabetic [BD Ultra-Fine Mini Pen Needle] 31 gauge x 3/16" needle See Rx Instructions .Route Qty: 400 RF: 3 (DME) OneTouch Ultra Test Strip See Rx Instructions .Route Qty: 100 RF: 3 FreeStyle Kirk 14 Day Sensor Kit See Rx Instructions .ROUTE .COMPLEX Qty: 2 RF: 11 Super Beta Prostate 1 tab PO DAILY RF: 0 clopidogrel 75 mg tablet 75 mg PO DAILY RF: 0 pantoprazole 40 mg tablet,delayed release (DR/EC) 40 mg PO QAM Qty: 90 RF: 3 Lantus Solostar U-100 Insulin 100 unit/mL (3 mL) insulin pen 15 unit subcut QPM RF: 0 insulin lispro [Humalog KwikPen Insulin] 100 unit/mL insulin pen 5 - 7 unit SQ TID RF: 0 Hold Instructions: Hypoglycemia acetaminophen [Tylenol Extra Strength] 500 mg tablet 1,000 mg PO Q8H PRN (Reason: Pain) RF: 0 cyanocobalamin (vitamin B-12) [Vitamin B-12] 1,000 mcg tablet 1,000 mcg PO QAM RF: 0 nitroglycerin [Nitrostat] 0.4 mg Tablet, Sublingual 0.4 mg sublingual UD PRN (Reason: Chest Pain) RF: 0 Centrum Silver Men 300-600-300 mcg Tablet 1 tab PO DAILY RF: 0 Discharge Orders: Discharge Order (Routine); Ordered 11/07/21 Ordered By: Shaina Ruiz/Other Patient Handouts: Managing Type 2 Diabetes Admission Data Admit Date/Time: 11/06/21 08:59 Attending Provider: Sid No Admit Provider: Luis E Veloz Primary Care Provider: Fox Moran Other Providers: Amisha Ramos ; Lucero Van ; Leigh Vaz ; Nyasia Woodson ; David Levin Other Interventions: Discharge Summary Assessment (RN) Last Done: 11/07/21 13:30 Coding Level of Care Code D/C DAY MANAGEMENT >30 MINS Diagnoses Sepsis A41.9 Cellulitis L03.90 JUANCARLOS (acute kidney injury) N17.9 Suicidal ideation R45.851 Hyperlipidemia E78.5 Hyperlipidemia type: unspecified Diabetes mellitus, type 2 E11.42; Z79.4 Diabetes mellitus terminal manager insulin use: with mcc use Diabetes mellitus complication status: with neurologic complications Diabetes mellitus complication detail: with polyneuropathy Hypertension I10 Hypertension type: essential hypertension CAD in [place] artery I25.10
== END 2021-11-07 16:29 | DRG 872 ==
LOC: ED 00:11 → 2E 00:11 → SUATTDRO 03:48 → 2E 05:11 → SUATTDRO 11-06 08:59 → 3W 11-06 15:41
DX: Z95.5 Presence of coronary angioplasty implant and graft; Z86.73 Personal history of transient ischemic attack (TIA), and cerebral infarction without residual deficits; I25.10 Atherosclerotic heart disease of native coronary artery without angina pectoris; Z88.8 Allergy status to other drugs, medicaments and biological substances; I11.0 Hypertensive heart disease with heart failure; Z88.5 Allergy status to narcotic agent; Z90.09 Acquired absence of other part of head and neck; N17.9 Acute kidney failure, unspecified; M19.90 Unspecified osteoarthritis, unspecified site; F20.9 Schizophrenia, unspecified; F31.9 Bipolar disorder, unspecified; L03.116 Cellulitis of left lower limb; Z87.891 Personal history of nicotine dependence; Z87.442 Personal history of urinary calculi; Z79.4 Long term (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; E78.5 Hyperlipidemia, unspecified; Z88.6 Allergy status to analgesic agent; I25.2 Old myocardial infarction; E11.42 Type 2 diabetes mellitus with diabetic polyneuropathy; I50.9 Heart failure, unspecified; E11.628 Type 2 diabetes mellitus with other skin complications; Z79.02 Long term (current) use of antithrombotics/antiplatelets; Z96.662 Presence of left artificial ankle joint; A41.9 Sepsis, unspecified organism; Z86.010 Personal history of colon polyps; G43.909 Migraine, unspecified, not intractable, without status migrainosus; Z66 Do not resuscitate; K21.9 Gastro-esophageal reflux disease without esophagitis

== ENCOUNTER 2021-11-07 14:10 | Inpatient (IN) ==
[2021-11-07] MEDS ORDERED: ACETAMINOPHEN 325 MG TAB PO PRN (14:11)
[2021-11-07] MEDS ORDERED: MAGNESIUM HYDROXIDE SUSP 30 ML UDC PO PRN (14:11)
[2021-11-07] MEDS ORDERED: SODIUM CHLORIDE 0.65% NA SOLN 45 ML (OCEAN) PRN (14:11)
[2021-11-07] MEDS ORDERED: ALUMINUM/MAGNESIUM SUSP 30 ML UDC PO PRN (14:11)
[2021-11-07] MEDS ORDERED: hydrOXYzine HCl 25 MG TAB PO PRN ×2 (14:11)
[2021-11-07] MEDS ORDERED: BISMUTH SUBSALICYLATE LIQD 236 ML PO PRN (14:11)
[2021-11-07] MEDS ORDERED: ACETAMINOPHEN 500 MG TAB PO PRN (14:34)
[2021-11-07] MEDS ORDERED: NITROGLYCERIN SL 0.4 MG/TAB TAB SL PRN (14:34)
[2021-11-07] MEDS ORDERED: PHARMACY GLYCEMIC MGMT CONSULT PRN (14:58)
[2021-11-07] MEDS ORDERED: DEXTROSE 50% 50 ML SYRINGE IV PRN (16:30)
[2021-11-07] MEDS ORDERED: GLUCAGON FOR INJ 1 MG VIAL IM PRN (16:30)
[2021-11-07] MEDS ORDERED: GLUCOSE 40% GEL 15 GM TUBE PO PRN (16:30)
[2021-11-07] MEDS ORDERED: GLUCOSE 10 TABS/TUBE PO PRN (16:30)
[2021-11-07] MEDS ORDERED: CARBOHYDRATES FOR HYPOGLYCEMIA PO PRN (16:30)
[2021-11-07] MEDS ORDERED: INSULIN ASPART 100 UNITS/ML 3 ML PEN SC SCH (17:15)
[2021-11-07] MEDS: CLINDAMYCIN HCL 150 MG CAP PO SCH (17:59)
[2021-11-07] MEDS: INSULIN ASPART PER UNIT SC SCH ×2 (18:31→20:46)
[2021-11-07] MEDS: INSULIN GLARGINE SOLOSTAR 100 UNITS/ML 3 ML PEN SC SCH (20:44)
[2021-11-07] MEDS: SACCHAROMYCES BOULARDII 250 MG CAP PO SCH (20:47)
[2021-11-08] MEDS: CLINDAMYCIN HCL 150 MG CAP PO SCH ×3 (00:12→17:15)
[2021-11-08] MEDS: ATORVASTATIN 40 MG TAB PO SCH (08:56)
[2021-11-08] MEDS: CYANOCOBALAMIN (B-12) 500 MCG TABLET PO SCH (08:57)
[2021-11-08] MEDS: CLOPIDOGREL BISULFATE 75 MG TAB PO SCH (08:57)
[2021-11-08] MEDS: INSULIN GLARGINE SOLOSTAR 100 UNITS/ML 3 ML PEN SC SCH (08:58)
[2021-11-08] MEDS ORDERED: PALIPERIDONE 3 MG TABCR PO SCH (09:00)
[2021-11-08] MEDS ORDERED: PALIPERIDONE 1.5 MG TABCR PO SCH (09:00)
[2021-11-08] MEDS: PANTOprazole 40 MG TAB PO SCH (09:00)
[2021-11-08] MEDS: SACCHAROMYCES BOULARDII 250 MG CAP PO SCH ×2 (09:00→21:08)
[2021-11-08] MEDS: INSULIN ASPART PER UNIT SC SCH ×4 (09:07→20:58)
[2021-11-08] MEDS: PALIPERIDONE 1.5 MG TABCR PO SCH (09:38)
[2021-11-08] MEDS ORDERED: PALIPERIDONE PALMITATE 156 MG/ML SYR IM ONE (12:30)
--- NOTE | 2021-11-08 12:49 | Pharmacy Report ---
Pharmacy Glycemic Short Note 2 - Date of Service November 08, 2021 - Glycemic Short BSG Results (Last 24 hours): 11/07/21 11/07/21 11/08/21 17:55 20:31 08:02 POC Glucose 121 H 120 H 139 H 11/08/21 12:30 POC Glucose 126 H OUTPATIENT ANTIDIABETIC REGIMEN: * Lantus 15 units SC HS * Humalog 5-7 units SC TIDM * HbA1c: 7.3% (11/06/21) ASSESSMENT: * SAUD is a 76 year old male originally admitted to [facility] with sepsis likely secondary to cellulitis * Pharmacy consulted for glycemic management upon transfer to mental health unit * BSGs reasonably well-controlled so far this admission, BSG of 314 mg/dL at lunch yesterday, but recheck was 202 mg/dL * Otherwise, BSGs well-controlled in 100-200 mg/dL range * A1c suggests reasonably well-controlled diabetes as an outpatient PLAN FOR INPATIENT GLYCEMIC CONTROL: * Basal insulin * Lantus 15 units SC qAM * Lantus 7-10 units SC HS * Reassess in AM * Bolus insulin * NovoLog per scale ACHS or Q6hrs while NPO * Goal Range: Low 110 mg/dL - High 140 mg/dL * Correction Factor: 30 mg/dL/unit * Nutritional / Prandial insulin per carb ratio of 1 unit per 9 grams CHO consumed
--- NOTE | 2021-11-08 13:11 | Psychiatric Progress Note ---
Date of Service November 08, 2021 Impression / Recommendations Impression 76 yo male with hx of delusions and intermittent agitated behavior previously classified as delusional disorder, bipolar disorder, or schizophrenia s/p CVA transferred from medical floor where he was admitted for sepsis. He reports he is not safe to live alone (has been staying at [facility]). He is amenable to inpatient psychiatric hospitalization and tolerating start of Invega and had expressed willingness for HUTTON. MNPR due to age and hx of aggression. (1) Schizoaffective disorder: (2) Sepsis: 11/08/21: Past med trials per [facility] records include Risperdal (2018 started, max dose 6 mg which did result in drooling and EPS and dose ultimately tapered in coordination with neuro), Aricept (Spring 2019), Namenda (2019), Depakote (07/07), topamax (for migraines), Celexa (ho 2019), Zyprexa (replaced Risperdal 12/2019 but was tapered by neuro for nuplazid trial), Effexor XR (10/06 for migraines). The patient agrees he is tolerating paliperidone well so far and is willing to continue with plan for HUTTON with understanding will opt for lower loading/maintenance doses.) He is finishing a course of clindamycin and remains afebrile/without physical complaints. Will receive Invega maintenna 156 mg today and 117 mg on day 4. 11/07/21: [facility] on q15 min checks (behavioral with suicide precautions) for safety. The patient will participate in group, recreational, and milieu therapies and will be offered additional individual and family sessions as clinically appropriate. Suicide Risk Level Suicide Risk Level: Moderate (q15 min suicide checks) Suicide Risk Level Comments: although hallucinations are resolving and denies SI, he is unlikely to cope outside of the hospital at this time and has significant hx of agitation/threatening behavior and multiple risk factors for suicide. Risk Factors Assessment Male: Yes : Yes Do You Have Access To A Gun?: No Health Problems: Yes Mental Health Diagnoses: Yes Substance Use Disorders: No Previous Psychiatric Hospitalization: Yes Protective Factors Assessment : Yes (though ) Employed: Yes Good Rapport with Provider: No Interval History Identifying Information EMNAUEL GRANT is a 76-year-old M who currently lives at the [facility], has a history of delusional parasitosis, and was admitted on 11/07/21 on transfer from the medical floor on a 201 voluntary commitment for intermittent SI and auditory escalona. Chief Complaint "I'm feeling some better, I talk loud because of my hearing, I'm not manic or psychotic". Review of Systems Sleep Information Total Hours of Sleep: 3.5 Sleep Comments: pt with RAEGAN @ 0430 and thereafter. pt on q-15 minute checks Meal Information Percent Meal Consumed - Breakfast: 100 Percent Meal Consumed - Dinner: 100 Subjective Subjective Patient was seen & assessed and interval progress reviewed with nursing and social work. Per staff slept 3.5 hrs which he feels is adequate. Hyperverbal but orgaznied in conversation. Able to attend groups. Had some pacing. Additional records received from [facility] and reviewed with patient. He notes interpersonal conflicts that escalated with both [facility] and [place] providers so aftercare could prove challenging. Physical Exam Psychiatric Orientation: alert and oriented x 3 Apperance: appropriately dressed and appropriately groomed Eye Contact: good eye contact Motor Behavior: no abnormal motor movements Speech: normal rate/rhythm/volume of speech Affect: + constricted affect Mood: + anxious mood Thought Process: linear/logical thought process Thought Content: reality based without delusions Suicidal Thoughts: denies suicidal thoughts Homicidal Thoughts: denies homicidal thoughts Hallucinations: no auditory hallucinations and no visual hallucinations Cognition: attention grossly intact and language grossly intact Estimated Intelligence: consistent with education level Insight: + limited insight Judgement: + limited judgement Vital Signs (Past 24 Hours) Last Vital Signs Temp 36.4 C L 11/08/21 06:34 Pulse 82 11/08/21 06:35 Resp 18 11/08/21 06:34 BP 131/81 11/08/21 06:35 Results & Data ([facility]) Laboratory Results Laboratory Results - last 24 hr 11/07/21 11/07/21 11/08/21 17:55 20:31 08:02 POC Glucose 121 H 120 H 139 H 11/08/21 12:30 POC Glucose 126 H Current Inpatient Medications Current Inpatient Medications: Current Inpatient Medications Acetaminophen (Acetaminophen 500 Mg Tab) 1,000 mg PO Q8H PRN PRN Reason: Pain Stop: 12/07/21 14:33 Al Hydrox/Mg Hydrox/Simethicone (Aluminum/Magnesium Susp 30 Ml Udc) 30 ml PO Q4H PRN PRN Reason: GI Upset Stop: 12/07/21 14:10 Atorvastatin Calcium (Atorvastatin 40 Mg Tab) 40 mg PO QAM [facility] Stop: 12/08/21 08:59 Last Admin: 11/08/21 08:56 Dose: 40 mg Documented by: Bismuth Subsalicylate (Bismuth Subsalicylate Liqd 236 Ml) 15 ml PO PRN PRN PRN Reason: Loose Stool Stop: 12/07/21 14:10 Clindamycin HCl (Clindamycin Hcl 150 Mg Cap) 450 mg PO Q8H [facility] Stop: 11/13/21 00:30 Last Admin: 11/08/21 08:55 Dose: 450 mg Documented by: Clopidogrel Bisulfate (Clopidogrel Bisulfate 75 Mg Tab) 75 mg PO DAILY [facility] Stop: 12/08/21 08:59 Last Admin: 11/08/21 08:57 Dose: 75 mg Documented by: Cyanocobalamin (Cyanocobalamin (B-12) 500 Mcg Tablet) 1,000 mcg PO QAM [facility] Stop: 12/08/21 08:59 Last Admin: 11/08/21 08:57 Dose: 1,000 mcg Documented by: Dextrose (Dextrose 50% 50 Ml Syringe) 25 - 50 ml IV UD PRN; Protocol PRN Reason: Hypoglycemia Protocol Stop: 12/07/21 16:29 Glucagon (Glucagon For Inj 1 Mg Vial) 1 mg IM UD PRN; Protocol PRN Reason: Hypoglycemia Protocol Stop: 12/07/21 16:29 Glucose (Glucose 40% Gel 15 Gm Tube) 15 - 30 gm PO UD PRN; Protocol PRN Reason: Hypoglycemia Protocol Stop: 12/07/21 16:29 Glucose (Glucose 10 Tabs/Tube) 4 - 8 tabs PO UD PRN; Protocol PRN Reason: Hypoglycemia Protocol Stop: 12/07/21 16:29 Hydroxyzine HCl (Hydroxyzine Hcl 25 Mg Tab) 50 mg PO HSZ PRN PRN Reason: Insomnia Stop: 12/07/21 14:10 Hydroxyzine HCl (Hydroxyzine Hcl 25 Mg Tab) 25 mg PO Q4H PRN PRN Reason: Anxiety Stop: 12/07/21 14:10 Insulin Aspart (Insulin Aspart Per Unit) 0 units SC ACHS [facility] Stop: 12/07/21 18:29 Last Admin: 11/08/21 09:07 Dose: 5 units Documented by: Insulin Glargine (Insulin Glargine Solostar 100 Units/Ml 3 Ml Pen) 0 units SC HS [facility]; Protocol Stop: 12/07/21 20:59 Magnesium Hydroxide (Magnesium Hydroxide Susp 30 Ml Udc) 30 ml PO DAILY PRN PRN Reason: Constipation Stop: 12/07/21 14:10 Miscellaneous (Carbohydrates For Hypoglycemia ) 15 - 30 gm PO UD PRN PRN Reason: Hypoglycemia Treatment Stop: 12/07/21 16:29 Miscellaneous Information (Pharmacy Glycemic Mgmt Consult) 1 ea N/A UD PRN PRN Reason: Consult Stop: 12/07/21 14:57 Nitroglycerin (Nitroglycerin Sl 0.4 Mg/Tab Tab) 0.4 mg SL UD PRN PRN Reason: Chest Pain Stop: 12/07/21 14:33 Paliperidone (Paliperidone 1.5 Mg Tabcr) 3 mg PO QAM [facility] Stop: 12/08/21 08:59 Last Admin: 11/08/21 09:38 Dose: 3 mg Documented by: Pantoprazole Sodium (Pantoprazole 40 Mg Tab) 40 mg PO QAM [facility] Stop: 12/08/21 08:59 Last Admin: 11/08/21 09:00 Dose: 40 mg Documented by: Saccharomyces Boulardii (Saccharomyces Boulardii 250 Mg Cap) 250 mg PO BID [facility] Stop: 12/13/21 22:10 Last Admin: 11/08/21 09:00 Dose: 250 mg Documented by: Sodium Chloride (Sodium Chloride 0.65% Na Soln 45 Ml (Cook)) 1 - 2 sprays NA PRN PRN PRN Reason: Nasal Dryness/Congestion Stop: 12/07/21 14:10 Post Discharge Appointments Primary Care Physician Name Of Family Doctor: Dr. Pro CAMACHO (1) Sepsis Sepsis acute organ dysfunction status: without acute organ dysfunction Sepsis type: sepsis due to unspecified organism Qualified Code(s): A41.9 - Sepsis, unspecified organism
--- NOTE | 2021-11-08 16:52 | Progress Notes ---
DATE OF SERVICE: 11/08/2021 Tian has been transferred to [facility]. He reports that the leg is still sensitive. He is on oral clindamycin. He is afebrile. No new labs today. On exam, he ambulates with a limp. He has 1+ swelling of the lower leg above his sock and a little b it less below. I do not see any erythema. He reports some sensitivity over the anterior and anterom edial mid to lower third of the leg and a little bit over the lateral malleolus. Over the lateral ma lleolus, there is no significant swelling, erythema or drainage. His neurovascular and strength stat us are intact. After reviewing the notes from Dr. Ramos in the past, it is noted that he only removed the syndesmos is screws from the ankle. The remainder of the hardware was left intact. The radiographs of the foot and ankle are reviewed demonstrating intact plate and screws within the l ateral malleolus. There is no acute fracture. There is some minimal degenerative change present. N o evidence of osteomyelitis or hardware loosening or failure. Reports are noted. At this time, continue oral antibiotics for treatment of his leg cellulitis. His foot and toe are co mpletely unremarkable. I recommend that he elevate the leg to help with swelling. Finish the oral a ntibiotics and we can see him in our office in 5-7 days depending on his situation here at the [facility]. Job ID: [id number]
[2021-11-08] MEDS ORDERED: INSULIN GLARGINE SOLOSTAR 100 UNITS/ML 3 ML PEN SC SCH (22:00)
[2021-11-09] MEDS: CLINDAMYCIN HCL 150 MG CAP PO SCH ×4 (01:17→23:50)
[2021-11-09] MEDS: CLOPIDOGREL BISULFATE 75 MG TAB PO SCH (08:18)
[2021-11-09] MEDS: ATORVASTATIN 40 MG TAB PO SCH (08:18)
[2021-11-09] MEDS: PALIPERIDONE 1.5 MG TABCR PO SCH (08:19)
[2021-11-09] MEDS: CYANOCOBALAMIN (B-12) 500 MCG TABLET PO SCH (08:19)
[2021-11-09] MEDS: PANTOprazole 40 MG TAB PO SCH (08:20)
[2021-11-09] MEDS ORDERED: INSULIN GLARGINE SOLOSTAR 100 UNITS/ML 3 ML PEN SC SCH ×2 (09:00→21:00)
[2021-11-09] MEDS: INSULIN ASPART PER UNIT SC SCH ×4 (09:13→21:45)
--- NOTE | 2021-11-09 10:52 | Pharmacy Report ---
Pharmacy Glycemic Short Note 2 - Date of Service November 09, 2021 - Glycemic Short BSG Results (Last 24 hours): 11/08/21 11/08/21 11/08/21 12:30 16:58 20:52 POC Glucose 126 H 76 71 11/09/21 08:14 POC Glucose 155 H OUTPATIENT ANTIDIABETIC REGIMEN: * Lantus 15 units SC HS * Humalog 5-7 units SC TIDM * HbA1c: 7.3% (11/06/21) ASSESSMENT: 11/09/21 * BSGs yesterday of 139, 126, 76, and 71 mg/dL, fasting BSG of 155 mg/dL this morning * Received 40 units of insulin (22 units of basal and 18 units of bolus) * Given down trend throughout the day, will loosen Novolog parameters today * Slight increase in basal today in light of elevated fasting BSG this morning 11/08/21 * SAUD is a 76 year old male originally admitted to [facility] with sepsis likely secondary to cellulitis * Pharmacy consulted for glycemic management upon transfer to mental health unit * BSGs reasonably well-controlled so far this admission, BSG of 314 mg/dL at lunch yesterday, but recheck was 202 mg/dL * Otherwise, BSGs well-controlled in 100-200 mg/dL range * A1c suggests reasonably well-controlled diabetes as an outpatient PLAN FOR INPATIENT GLYCEMIC CONTROL: * Basal insulin - increase * Lantus 12 units SC BID * Bolus insulin - loosen * NovoLog per scale ACHS or Q6hrs while NPO * Goal Range: Low 120 mg/dL - High 160 mg/dL * Correction Factor: 35 mg/dL/unit * Nutritional / Prandial insulin per carb ratio of 1 unit per 12 grams CHO consumed
[2021-11-09] MEDS: SACCHAROMYCES BOULARDII 250 MG CAP PO SCH ×2 (11:52→21:34)
--- NOTE | 2021-11-09 13:59 | Psychiatric Progress Note ---
Date of Service November 09, 2021 Impression / Recommendations Impression 76 yo male with hx of delusions and intermittent agitated behavior previously classified as delusional disorder, bipolar disorder, or schizophrenia s/p CVA transferred from medical floor where he was admitted for sepsis. He reports he is not safe to live alone (has been staying at [facility]). He is amenable to inpatient psychiatric hospitalization and tolerating start of Invega and had expressed willingness for HUTTON. Received loading dose 11/08/21. MNPR due to age and hx of aggression. (1) Schizoaffective disorder: (2) Sepsis: 11/09/21: family session, aftercare planning with regards to coverage for HUTTON. Will receive 2nd dose on 11/11/21. 11/08/21: Past med trials per [facility] records include Risperdal (2018 started, max dose 6 mg which did result in drooling and EPS and dose ultimately tapered in coordination with neuro), Aricept (Spring 2019), Namenda (2019), Depakote (07/07), topamax (for migraines), Celexa (ho 2019), Zyprexa (replaced Risperdal 12/2019 but was tapered by neuro for nuplazid trial), Effexor XR (10/06 for migraines). The patient agrees he is tolerating paliperidone well so far and is willing to continue with plan for HUTTON with understanding will opt for lower loading/maintenance doses.) He is finishing a course of clindamycin and remains afebrile/without physical complaints. Will receive Invega maintenna 156 mg today and 117 mg on day 4. 11/07/21: The patient was admitted to the [facility]) on q15 min checks (behavioral with suicide precautions) for safety. The patient will participate in group, recreational, and milieu therapies and will be offered additional individual and family sessions as clinically appropriate. Suicide Risk Level Suicide Risk Level: Moderate (q15 min suicide checks) Suicide Risk Level Comments: although hallucinations are resolving and denies SI, has significant hx of agitation/threatening behavior and multiple risk factors for suicide. Risk Factors Assessment Male: Yes : Yes Do You Have Access To A Gun?: No Health Problems: Yes Mental Health Diagnoses: Yes Substance Use Disorders: No Previous Psychiatric Hospitalization: Yes Protective Factors Assessment : Yes (though ) Employed: Yes Good Rapport with Provider: No Interval History Identifying Information EMANUEL GRANT is a 76-year-old M who currently lives at the [facility], has a history of delusional parasitosis, and was admitted on 11/07/21 on transfer from the medical floor on a 201 voluntary commitment for intermittent SI and auditory escalona. Chief Complaint "I'm feeling better." Review of Systems Sleep Information Total Hours of Sleep: 6.5 Sleep Comments: pt on q-15 minute checks Meal Information Percent Meal Consumed - Breakfast: 100 Percent Meal Consumed - Dinner: 100 Subjective Subjective Patient was seen & assessed and interval progress reviewed with treatment team. Has been much more cooperative/pleasant this stay. Aftercare planning is limited by his history of poor anger control. He is agreeable to family meeting. Invega injection will be >$500/month so exploring patient care resources or options re: samples. Slept better. Physical Exam Psychiatric Orientation: alert and oriented x 3 Apperance: appropriately dressed and appropriately groomed Eye Contact: good eye contact Motor Behavior: no abnormal motor movements Speech: normal rate/rhythm/volume of speech Affect: euthymic affect Mood: no depressed mood Thought Process: goal directed thought process Thought Content: reality based without delusions Suicidal Thoughts: denies suicidal thoughts Homicidal Thoughts: denies homicidal thoughts Hallucinations: no auditory hallucinations and no visual hallucinations Cognition: attention grossly intact and language grossly intact Estimated Intelligence: consistent with education level Insight: + limited insight Judgement: + limited judgement Vital Signs (Past 24 Hours) Last Vital Signs Temp 36.4 C L 11/09/21 06:28 Pulse 88 11/09/21 06:28 Resp 16 11/09/21 06:28 BP 128/80 11/09/21 06:29 Results & Data ([facility]) Laboratory Results Laboratory Results - last 24 hr 11/08/21 11/08/21 11/09/21 16:58 20:52 08:14 POC Glucose 76 71 155 H 11/09/21 12:19 POC Glucose 103 H Current Inpatient Medications Current Inpatient Medications: Current Inpatient Medications Acetaminophen (Acetaminophen 500 Mg Tab) 1,000 mg PO Q8H PRN PRN Reason: Pain Stop: 12/07/21 14:33 Al Hydrox/Mg Hydrox/Simethicone (Aluminum/Magnesium Susp 30 Ml Udc) 30 ml PO Q4H PRN PRN Reason: GI Upset Stop: 12/07/21 14:10 Atorvastatin Calcium (Atorvastatin 40 Mg Tab) 40 mg PO QAM [facility] Stop: 12/08/21 08:59 Last Admin: 11/09/21 08:18 Dose: 40 mg Documented by: Bismuth Subsalicylate (Bismuth Subsalicylate Liqd 236 Ml) 15 ml PO PRN PRN PRN Reason: Loose Stool Stop: 12/07/21 14:10 Clindamycin HCl (Clindamycin Hcl 150 Mg Cap) 450 mg PO Q8H [facility] Stop: 11/13/21 00:30 Last Admin: 11/09/21 08:17 Dose: 450 mg Documented by: Clopidogrel Bisulfate (Clopidogrel Bisulfate 75 Mg Tab) 75 mg PO DAILY [facility] Stop: 12/08/21 08:59 Last Admin: 11/09/21 08:18 Dose: 75 mg Documented by: Cyanocobalamin (Cyanocobalamin (B-12) 500 Mcg Tablet) 1,000 mcg PO QAM [facility] Stop: 12/08/21 08:59 Last Admin: 11/09/21 08:19 Dose: 1,000 mcg Documented by: Dextrose (Dextrose 50% 50 Ml Syringe) 25 - 50 ml IV UD PRN; Protocol PRN Reason: Hypoglycemia Protocol Stop: 12/07/21 16:29 Glucagon (Glucagon For Inj 1 Mg Vial) 1 mg IM UD PRN; Protocol PRN Reason: Hypoglycemia Protocol Stop: 12/07/21 16:29 Glucose (Glucose 40% Gel 15 Gm Tube) 15 - 30 gm PO UD PRN; Protocol PRN Reason: Hypoglycemia Protocol Stop: 12/07/21 16:29 Glucose (Glucose 10 Tabs/Tube) 4 - 8 tabs PO UD PRN; Protocol PRN Reason: Hypoglycemia Protocol Stop: 12/07/21 16:29 Hydroxyzine HCl (Hydroxyzine Hcl 25 Mg Tab) 50 mg PO HSZ PRN PRN Reason: Insomnia Stop: 12/07/21 14:10 Hydroxyzine HCl (Hydroxyzine Hcl 25 Mg Tab) 25 mg PO Q4H PRN PRN Reason: Anxiety Stop: 12/07/21 14:10 Insulin Aspart (Insulin Aspart Per Unit) 0 units SC ACHS [facility] Stop: 12/07/21 18:29 Last Admin: 11/09/21 09:13 Dose: 7 units Documented by: Insulin Glargine (Insulin Glargine Solostar 100 Units/Ml 3 Ml Pen) 12 units SC BID [facility] Stop: 12/09/21 08:59 Last Admin: 11/09/21 09:12 Dose: 12 units Documented by: Magnesium Hydroxide (Magnesium Hydroxide Susp 30 Ml Udc) 30 ml PO DAILY PRN PRN Reason: Constipation Stop: 12/07/21 14:10 Miscellaneous (Carbohydrates For Hypoglycemia ) 15 - 30 gm PO UD PRN PRN Reason: Hypoglycemia Treatment Stop: 12/07/21 16:29 Miscellaneous Information (Pharmacy Glycemic Mgmt Consult) 1 ea N/A UD PRN PRN Reason: Consult Stop: 12/07/21 14:57 Nitroglycerin (Nitroglycerin Sl 0.4 Mg/Tab Tab) 0.4 mg SL UD PRN PRN Reason: Chest Pain Stop: 12/07/21 14:33 Paliperidone (Paliperidone 1.5 Mg Tabcr) 3 mg PO QAM [facility] Stop: 12/08/21 08:59 Last Admin: 11/09/21 08:19 Dose: 3 mg Documented by: Pantoprazole Sodium (Pantoprazole 40 Mg Tab) 40 mg PO QAM [facility] Stop: 12/08/21 08:59 Last Admin: 11/09/21 08:20 Dose: 40 mg Documented by: Saccharomyces Boulardii (Saccharomyces Boulardii 250 Mg Cap) 250 mg PO BID NIKOLAI Stop: 12/13/21 22:10 Last Admin: 11/09/21 11:52 Dose: 250 mg Documented by: Sodium Chloride (Sodium Chloride 0.65% Na Soln 45 Ml ([place])) 1 - 2 sprays NA PRN PRN PRN Reason: Nasal Dryness/Congestion Stop: 12/07/21 14:10 Mental Health & Subst Abuse Tx Psychiatrist Name of Psychiatrist: [facility] Psychiatrist's Date of Appointment with Psychiatrist: 11/28/21 Time of Appointment with Psychiatrist: 10:00 AM (60 minute appointment) Psychiatric Appointment Comment: [address] [id number] - bring ID and insurance card Post Discharge Appointments Primary Care Physician Name Of Family Doctor: DOUG Cardenas PA-C Primary Care Date of Appointment with PCP: 11/17/21 Time of Appointment with PCP: 10:00 AM Provider Appointment Comment: [address], [address], [place] [address] (1) Sepsis Sepsis acute organ dysfunction status: without acute organ dysfunction Sepsis type: sepsis due to unspecified organism Qualified Code(s): A41.9 - Sepsis, unspecified organism
[2021-11-09] MEDS: INSULIN GLARGINE SOLOSTAR 100 UNITS/ML 3 ML PEN SC SCH (21:51)
[2021-11-10] MEDS: CLINDAMYCIN HCL 150 MG CAP PO SCH ×3 (08:01→23:04)
[2021-11-10] MEDS: ATORVASTATIN 40 MG TAB PO SCH (08:02)
[2021-11-10] MEDS: CLOPIDOGREL BISULFATE 75 MG TAB PO SCH (08:02)
[2021-11-10] MEDS: CYANOCOBALAMIN (B-12) 500 MCG TABLET PO SCH (08:03)
[2021-11-10] MEDS: PALIPERIDONE 1.5 MG TABCR PO SCH (08:03)
[2021-11-10] MEDS: PANTOprazole 40 MG TAB PO SCH (08:04)
[2021-11-10] MEDS: SACCHAROMYCES BOULARDII 250 MG CAP PO SCH ×2 (08:04→21:18)
[2021-11-10] MEDS: INSULIN ASPART PER UNIT SC SCH ×4 (09:05→21:13)
[2021-11-10] MEDS: INSULIN GLARGINE SOLOSTAR 100 UNITS/ML 3 ML PEN SC SCH ×2 (09:08→21:19)
--- NOTE | 2021-11-10 12:42 | Psychiatric Progress Note ---
Date of Service November 10, 2021 Impression / Recommendations Impression 76 yo male with hx of delusions and intermittent agitated behavior previously classified as delusional disorder, bipolar disorder, or schizophrenia s/p CVA transferred from medical floor where he was admitted for sepsis. He reports he is not safe to live alone (has been staying at [facility]). He was amenable to inpatient psychiatric hospitalization and tolerating start of Invega and had expressed willingness for HUTTON. Received loading dose 11/08/21. MNPR due to age and COVID. (1) Schizoaffective disorder: (2) Sepsis: 11/10/21: safety planning, applied for PACE. if PACE will not cover cost of Invega, outpatient provider can consider increasing Invega to 156 mg so can use samples provided by Anne [phone]. 11/09/21: family session, aftercare planning with regards to coverage for HUTTON. Will receive 2nd dose on 11/11/21. 11/08/21: Past med trials per [facility] records include Risperdal (2018 started, max dose 6 mg which did result in drooling and EPS and dose ultimately tapered in coordination with neuro), Aricept (Spring 2019), Namenda (2019), Depakote (07/07), topamax (for migraines), Celexa (ho 2019), Zyprexa (replaced Risperdal 12/2019 but was tapered by neuro for nuplazid trial), Effexor XR (10/06 for migraines). The patient agrees he is tolerating paliperidone well so far and is willing to continue with plan for HUTTON with understanding will opt for lower loading/maintenance doses.) He is finishing a course of clindamycin and remains afebrile/without physical complaints. Will receive Invega maintenna 156 mg today and 117 mg on day 4. 11/07/21: The patient was admitted to the [facility] ([facility] inpatient mental health unit) on q15 min checks (behavioral with suicide precautions) for safety. The patient will participate in group, recreational, and milieu therapies and will be offered additional individual and family sessions as clinically appropriate. Suicide Risk Level Suicide Risk Level: Moderate (q15 min suicide checks) Suicide Risk Level Comments: although hallucinations are resolved and denies SI, has significant hx of agitation/threatening behavior and multiple risk factors for suicide. Risk Factors Assessment Male: Yes : Yes Do You Have Access To A Gun?: No Health Problems: Yes Mental Health Diagnoses: Yes Substance Use Disorders: No Previous Psychiatric Hospitalization: Yes Protective Factors Assessment : Yes (though ) Employed: Yes Good Rapport with Provider: No Interval History Identifying Information EMANUEL GRANT is a 76-year-old M who currently lives at the [facility], has a history of delusional parasitosis, and was admitted on 11/07/21 on transfer from the medical floor on a 201 voluntary commitment for intermittent SI and auditory escalona. Chief Complaint s/p family meeting Review of Systems Sleep Information Total Hours of Sleep: 5.75 Meal Information Percent Meal Consumed - Breakfast: 100 Percent Meal Consumed - Lunch: 100 Percent Meal Consumed - Dinner: 100 Subjective Subjective Patient was seen & assessed and interval progress reviewed with nursing and social work assistant. Patient exhibited some entitlement but minimal anger in family meeting when confronted by daughter re: her needs. Regardless maintaining well in the milieu. Currently doing crosswords. Denies medication related side effects. Physical Exam Psychiatric Orientation: alert and oriented x 3 Apperance: appropriately dressed and appropriately groomed Eye Contact: good eye contact Motor Behavior: no abnormal motor movements Speech: normal rate/rhythm/volume of speech Affect: euthymic affect Mood: + anxious mood; no depressed mood Thought Process: goal directed thought process Thought Content: reality based without delusions Suicidal Thoughts: denies suicidal thoughts Homicidal Thoughts: denies homicidal thoughts Hallucinations: no auditory hallucinations and no visual hallucinations Cognition: attention grossly intact and language grossly intact Estimated Intelligence: consistent with education level Insight: + fair insight Judgement: + fair judgement Vital Signs (Past 24 Hours) Last Vital Signs Temp 36.6 C 11/10/21 06:38 Pulse 62 11/10/21 06:38 Resp 18 11/10/21 06:38 BP 114/78 11/10/21 06:38 Results & Data ([facility]) Laboratory Results Laboratory Results - last 24 hr 11/09/21 11/09/21 11/10/21 17:04 21:12 08:39 POC Glucose 102 H 134 H 139 H Current Inpatient Medications Current Inpatient Medications: Current Inpatient Medications Acetaminophen (Acetaminophen 500 Mg Tab) 1,000 mg PO Q8H PRN PRN Reason: Pain Stop: 12/07/21 14:33 Al Hydrox/Mg Hydrox/Simethicone (Aluminum/Magnesium Susp 30 Ml Udc) 30 ml PO Q4H PRN PRN Reason: GI Upset Stop: 12/07/21 14:10 Atorvastatin Calcium (Atorvastatin 40 Mg Tab) 40 mg PO QAM [facility] Stop: 12/08/21 08:59 Last Admin: 11/10/21 08:02 Dose: 40 mg Documented by: Bismuth Subsalicylate (Bismuth Subsalicylate Liqd 236 Ml) 15 ml PO PRN PRN PRN Reason: Loose Stool Stop: 12/07/21 14:10 Clindamycin HCl (Clindamycin Hcl 150 Mg Cap) 450 mg PO Q8H [facility] Stop: 11/13/21 00:30 Last Admin: 11/10/21 08:01 Dose: 450 mg Documented by: Clopidogrel Bisulfate (Clopidogrel Bisulfate 75 Mg Tab) 75 mg PO DAILY [facility] Stop: 12/08/21 08:59 Last Admin: 11/10/21 08:02 Dose: 75 mg Documented by: Cyanocobalamin (Cyanocobalamin (B-12) 500 Mcg Tablet) 1,000 mcg PO QAM [facility] Stop: 12/08/21 08:59 Last Admin: 11/10/21 08:03 Dose: 1,000 mcg Documented by: Dextrose (Dextrose 50% 50 Ml Syringe) 25 - 50 ml IV UD PRN; Protocol PRN Reason: Hypoglycemia Protocol Stop: 12/07/21 16:29 Glucagon (Glucagon For Inj 1 Mg Vial) 1 mg IM UD PRN; Protocol PRN Reason: Hypoglycemia Protocol Stop: 12/07/21 16:29 Glucose (Glucose 40% Gel 15 Gm Tube) 15 - 30 gm PO UD PRN; Protocol PRN Reason: Hypoglycemia Protocol Stop: 12/07/21 16:29 Glucose (Glucose 10 Tabs/Tube) 4 - 8 tabs PO UD PRN; Protocol PRN Reason: Hypoglycemia Protocol Stop: 12/07/21 16:29 Hydroxyzine HCl (Hydroxyzine Hcl 25 Mg Tab) 50 mg PO HSZ PRN PRN Reason: Insomnia Stop: 12/07/21 14:10 Hydroxyzine HCl (Hydroxyzine Hcl 25 Mg Tab) 25 mg PO Q4H PRN PRN Reason: Anxiety Stop: 12/07/21 14:10 Insulin Aspart (Insulin Aspart Per Unit) 0 units SC ACHS [facility] Stop: 12/07/21 18:29 Last Admin: 11/10/21 09:05 Dose: 6 units Documented by: Insulin Glargine (Insulin Glargine Solostar 100 Units/Ml 3 Ml Pen) 12 units SC BID [facility] Stop: 12/09/21 08:59 Last Admin: 11/10/21 09:08 Dose: 12 units Documented by: Magnesium Hydroxide (Magnesium Hydroxide Susp 30 Ml Udc) 30 ml PO DAILY PRN PRN Reason: Constipation Stop: 12/07/21 14:10 Miscellaneous (Carbohydrates For Hypoglycemia ) 15 - 30 gm PO UD PRN PRN Reason: Hypoglycemia Treatment Stop: 12/07/21 16:29 Miscellaneous Information (Pharmacy Glycemic Mgmt Consult) 1 ea N/A UD PRN PRN Reason: Consult Stop: 12/07/21 14:57 Nitroglycerin (Nitroglycerin Sl 0.4 Mg/Tab Tab) 0.4 mg SL UD PRN PRN Reason: Chest Pain Stop: 12/07/21 14:33 Paliperidone (Paliperidone 1.5 Mg Tabcr) 3 mg PO QAM [facility] Stop: 12/08/21 08:59 Last Admin: 11/10/21 08:03 Dose: 3 mg Documented by: Pantoprazole Sodium (Pantoprazole 40 Mg Tab) 40 mg PO QAM [facility] Stop: 12/08/21 08:59 Last Admin: 11/10/21 08:04 Dose: 40 mg Documented by: Saccharomyces Boulardii (Saccharomyces Boulardii 250 Mg Cap) 250 mg PO BID [facility] Stop: 12/13/21 22:10 Last Admin: 11/10/21 08:04 Dose: 250 mg Documented by: Sodium Chloride (Sodium Chloride 0.65% Na Soln 45 Ml ([place])) 1 - 2 sprays NA PRN PRN PRN Reason: Nasal Dryness/Congestion Stop: 12/07/21 14:10 Mental Health & Subst Abuse Tx Psychiatrist Name of Psychiatrist: [facility] Psychiatrist's Date of Appointment with Psychiatrist: 11/28/21 Time of Appointment with Psychiatrist: 10:00 AM (60 minute appointment) Psychiatric Appointment Comment: [address] [id number] - bring ID and insurance card Therapist Name of Therapist: [facility] - discuss during intake appointment Resistor Winder Name of Resistor Winder: [facility] Phone Number for Resistor Winder: [phone] Case Management Appointment Comment: Will follow up with you to schedule a meeting with your CM Post Discharge Appointments Primary Care Physician Name Of Family Doctor: DOUG Cardenas PA-C Primary Care Date of Appointment with PCP: 11/17/21 Time of Appointment with PCP: 10:00 AM Provider Appointment Comment: [address], [place] [address], [facility] [address] Contact Information Discharge Discharge Address: [address] [place] [address] (1) Sepsis Sepsis acute organ dysfunction status: without acute organ dysfunction Sepsis type: sepsis due to unspecified organism Qualified Code(s): A41.9 - Sepsis, unspecified organism
[2021-11-11] MEDS ORDERED: PALIPERIDONE PALMITATE 117 MG/0.75 ML SYR IM ONE (08:00)
[2021-11-11] MEDS: CLINDAMYCIN HCL 150 MG CAP PO SCH (08:03)
[2021-11-11] MEDS: CYANOCOBALAMIN (B-12) 500 MCG TABLET PO SCH (08:03)
[2021-11-11] MEDS: CLOPIDOGREL BISULFATE 75 MG TAB PO SCH (08:03)
[2021-11-11] MEDS: ATORVASTATIN 40 MG TAB PO SCH (08:03)
[2021-11-11] MEDS: SACCHAROMYCES BOULARDII 250 MG CAP PO SCH (08:04)
[2021-11-11] MEDS: PANTOprazole 40 MG TAB PO SCH (08:04)
[2021-11-11] MEDS: INSULIN ASPART PER UNIT SC SCH (08:56)
[2021-11-11] MEDS: INSULIN GLARGINE SOLOSTAR 100 UNITS/ML 3 ML PEN SC SCH (08:57)
--- NOTE | 2021-11-11 09:14 | Pharmacy Report ---
Pharmacy Glycemic Short Note 2 - Date of Service November 11, 2021 - Glycemic Short BSG Results (Last 24 hours): 11/10/21 11/10/21 11/10/21 12:28 17:24 20:40 POC Glucose 165 H 89 133 H 11/11/21 07:59 POC Glucose 122 H OUTPATIENT ANTIDIABETIC REGIMEN: * Lantus 15 units SC HS * Humalog 5-7 units SC TIDM * HbA1c: 7.3% (11/06/21) ASSESSMENT: 11/10/21: * Tian received a total of 43 units of SQ insulin yesterday (24 units Lantus, 19 units novolog). Insulin requirements have been stable. * Fasting BSG of 122 mg/dL is near goal. Will continue current Lantus order. * Post prandial BSGs are acceptable. 11/09/21 * BSGs yesterday of 139, 126, 76, and 71 mg/dL, fasting BSG of 155 mg/dL this morning * Received 40 units of insulin (22 units of basal and 18 units of bolus) * Given down trend throughout the day, will loosen Novolog parameters today * Slight increase in basal today in light of elevated fasting BSG this morning 11/08/21 * SAUD is a 76 year old male originally admitted to [facility] with sepsis likely seco ndary to cellulitis * Pharmacy consulted for glycemic management upon transfer to mental health unit * BSGs reasonably well-controlled so far this admission, BSG of 314 mg/dL at lunch yesterday, but recheck was 202 mg/dL * Otherwise, BSGs well-controlled in 100-200 mg/dL range * A1c suggests reasonably well-controlled diabetes as an outpatient PLAN FOR INPATIENT GLYCEMIC CONTROL: * Basal insulin * Lantus 12 units SC BID * Bolus insulin - loosen * NovoLog per scale ACHS or Q6hrs while NPO * Goal Range: Low 120 mg/dL - High 160 mg/dL * Correction Factor: 40 mg/dL/unit * Nutritional / Prandial insulin per carb ratio of 1 unit per 12 grams CHO consumed
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
== END 2021-11-11 11:00 | disposition home or self-care (01) | DRG 885 ==
LOC: 3S 14:11

== ENCOUNTER 2023-06-18 10:42 | Inpatient (IN) ==
[2023-06-18] MEDS ORDERED: PIPERACILLIN/TAZOBACTAM 4.5 GM in DEXTROSE 5% MINI-B 100 ML IV ONE (11:06)
--- NOTE | 2023-06-18 11:14 | Emergency Department Note ---
Impression & Plan Sepsis, Cellulitis of left foot, Osteomyelitis, Gangrene, Elevated lactic acid level, Tachypnea ED Provider Note NAME: EMANUEL GRANT AGE: 78 SEX: M : 1945 ARRIVES VIA: Ambulance INFORMANT: [Patient][family] ED PROVIDER(S): [Jonny El MD] CHIEF COMPLAINT: Foot infection HISTORY OF PRESENT ILLNESS: The patient is a 78-year-old male who stopped seeing physicians and stopped taking all his medication. As per his family, today, he allowed them to take a look at his feet. The left foot was blackened and foul-smelling. Patient does complain of pain in the left foot. He denies fever, he states he has had some vomiting but this is typical for him because of ongoing stomach issues. The patient denies being short of breath. No cough or congestion. No abdominal pain. The patient states that he has noticed the blackness to his toes for some time, he chose not to have an evaluation. Today when his family took a look at his feet, they called the ambulance for transport. He was feeling cold today and is having some shivering. PMHx/PSHx/Social Hx: See Below PHYSICAL EXAM: GENERAL: Patient is in mild distress, increased respiratory rate noted. HEENT: No acute trauma, normocephalic atraumatic, mucous membranes moist, no nasal congestion. NECK: No stridor, no adenopathy, no meningismus, trachea is midline. LUNGS: Clear to auscultation bilaterally, no wheeze, no rhonchi, breath sounds equal. Increased respiratory rate. HEART: Without murmurs gallops or rubs, regular rate and rhythm. ABDOMEN: Soft, nontender, no peritonitis. EXTREMITIES: No cyanosis. The left foot is slightly erythematous and there is blackness to a few of his toes. The left fifth toe and the first toe appear gangrenous and necrotic. A foul odor is noted. There is some mild warmth and erythema present. The entire foot is tender with palpation. NEUROLOGIC: Oriented x 3, no acute motor or sensory deficits, no focal weakness. SKIN: No jaundice, no diaphoresis. DIFFERENTIAL DIAGNOSIS: Osteomyelitis, cellulitis, bacteremia, sepsis, dehydration, electrolyte imbalance, medication noncompliance, cellulitis, among others EMERGENCY DEPARTMENT PROCEDURES: MEDICAL DECISION MAKING: There is no leukocytosis or concerning anemia. There is a normal platelet count. No concerning coagulopathy. There was an anion gap present with a lower CO2 value. No renal failure. Lactic acid level was elevated at over 5, this is consistent with sepsis and dehydration. There were some liver enzyme elevations noted. Procalcitonin level was not elevated. ECG shows a sinus rhythm with a right bundle branch block. No obvious acute ischemia. Cardiac enzyme testing x 1 was not consistent with acute cardiac injury. COVID, influenza and RSV test were negative. Chest x-ray does not show CHF or pneumonia. Left foot CT does show osteomyelitis and soft tissue infection. Some gas was noted. On exam, a foul odor was present to the foot. Gangrene was present. His fifth and first toes appeared necrotic. The patient received IV saline, he received 30 cc/kg of fluid based on his body weight. 2250 cc was administered. He received IV Zosyn, IV clindamycin and IV daptomycin. He received IV Tylenol. Patient was initially having some rigors here, this seemed to resolve during his stay. Patient does seem more comfortable and seems less short of breath. I did speak with orthopedics, the ICU attending, the on-call hospitalist, case management as well as podiatry on-call. The patient will be hospitalized, he is going to require surgical intervention. He has a necrotic, gangrenous infected left foot and will require multispecialty care. He needs antibiotics, surgical intervention. The patient understands the seriousness of his infection and presentation. He understands that he is going to likely lose some of his left foot. Of note, the patient is a DNR, he states that he does not want aggressive cardiac measures. Prior/Outside records/notes reviewed: Today's EMS notes. ECG per my interpretation: Indication was possible sepsis. The ECG shows a sinus rhythm with PVCs. The rate is 77. A right bundle branch block pattern is noted. There is an old inferior infarct. There is no ST elevation. The QTc is 482. Compared to an ECG from 27 August 2022, I see no significant change. Continuous Cardiac Monitoring per my interpretation: An order was placed for continuous cardiac monitoring. The monitor shows a rate of 63 with sinus rhythm with PVCs. Imaging/x-ray results per my interpretation: Chest x-ray does not show mediastinal widening, pneumonia or pneumothorax. No CHF. Chronic Medical/Social conditions affecting care: Medical noncompliance, medication noncompliance. Advanced age. Care/Management discussed with: Orthopedics-Dr. Chavez. ICU attending-Dr. Gonzales. Podiatry on-call-Dr. Price. Case management and the on-call hospitalist. Level of care consideration(s): After review of the information above and other included data: --I believe the patient requires escalation of care to admission Critical Care Note: I have personally spent 59 minutes of critical care time in the direct management of this patient. This includes bedside care, interpretation of diagnostic studies, and testing, discussion with consultants, patient, and family members, and other required patient management activities. This 59 minutes is in excess of all separately billable procedures. DISPOSITION: Admission Past Med/Surg History Medical History Poor historian GERD (gastroesophageal reflux disease) On anticoagulant therapy Kidney stones hx History of COVID-06 May 2022 at a [facility] in [facility]. Peripheral neuropathy Prostate cancer pt did not acknowledge. Sepsis hx Schizoaffective disorder pt denies JUANCARLOS (acute kidney injury) BPH (benign prostatic hyperplasia) Amputated toe of left foot Cellulitis Osteomyelitis hx Diabetic ulcer of toe hx History of diverticulosis Mild cognitive impairment alert and oriented x3 -- "forgetful about his history" Stroke HX X 2-11/2004 AND 09/2019-F/U DR NÚÑEZ Orthostatic dizziness at times Failure of outpatient treatment Venous stasis ulcers of both lower extremities hx in 2019 Venous (peripheral) insufficiency Recurrent falls Parkinsonism per medical record - pt unaware Intermittent explosive disorder Delusional disorder, somatic type not currently -- pt unaware -- pt alert and oriented x3 at this time. Alcohol abuse pt states he quit "a long time ago" Chronic diastolic CHF (congestive heart failure) Benign colonic polyp Dyslipidemia History of tobacco use Nephrolithiasis Raynauds phenomenon Stage III chronic kidney disease Tubular adenoma of colon History of CVA (cerebrovascular accident) hx in 2004 and 2019 --> follows with Dr Núñez. Migraines hx Acute on chronic renal insufficiency pt unsure Osteoarthritis Diabetes mellitus, type 2 IDDM Hypertension Hyperlipidemia Myocardial Infarction 2004--follows with Dr. Mejia Surgical History H/O left cataract extraction S/P CABG (coronary artery bypass graft) [facility] [place]/P sinus surgery History of lumbar discectomy x2 History of carpal tunnel release of both wrists History of open reduction and internal fixation (ORIF) procedure left ankle--hardware in place History of arthroscopy of left knee History of lithotripsy x2 History of colonoscopy History of tonsillectomy and adenoidectomy Status post uvulopalatopharyngoplasty History of right cataract extraction History of heart artery stent (1998) x1 stent History of cardiac cath x4-5, last 05/19/2019 [facility] NO RECENT STENTS Family History Father Diabetes Prostate cancer Colorectal cancer Myocardial infarction Brother Prostate cancer Uncle Colorectal cancer Father Myocardial infarction Mother Myocardial infarction Stroke Other Dementia No family history of adverse response to anesthesia Denies family history of Ovarian cancer Breast cancer Social History Smoking Status: Former smoker Tobacco Type: Cigarettes Age Quit Using Tobacco: 71; packs per day: 3; Cigarettes Per Day: 3; Second Hand Exposure: Yes (hx); Do You Dip or Chew Tobacco: No (quit "a long time ago"); Hx Alcohol Use: No (quit "a long time ago") Hx Substance Use: No Preferred Language: Emirati Communication Ability: Effective Communication Ability Comment: Patient with confusion. 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); chemical exposure Feels Safe at Home: Yes Childhood Exposure to Second-Hand Smoke: Yes Diet: regular Dental Care, Regularly: Yes Physical Activity Frequency: Daily Seatbelt Use: always Sunscreen Use: No Assistive Devices: Denture - Upper and Glasses Allergies Allergies Allergy/AdvReac Type Severity Reaction Status Date / Time morphine AdvReac Severe "STOPS MY Verified 06/18/23 15:02 HEART" diazepam AdvReac Intermediate HALLUCINATE Verified 06/18/23 15:02 S hydromorphone [From Dilaudid] AdvReac Intermediate unresponsiv Verified 06/18/23 15:02 eness propoxyphene AdvReac Intermediate DRUG Verified 06/18/23 15:02 INTOLERANCE trazodone AdvReac Intermediate GI UPSET Verified 06/18/23 15:02 Home Meds Home Medications Medication Instructions Recorded Confirmed acetaminophen 500 mg tablet 1,000 mg PO Q8H PRN Pain 06/05/19 06/18/23 (Tylenol Extra Strength) nitroglycerin 0.4 mg sublingual 0.4 mg sublingual UD PRN Chest Pain 11/04/20 06/18/23 tablet (Nitrostat) cyanocobalamin (vitamin B-12) 1,000 mcg PO QAM 08/10/21 06/18/23 1,000 mcg tablet (Vitamin B-12) [id number] 300 mcg-K 60 1 tab PO DAILY 09/01/21 06/18/23 mcg-lycop 600 mcg-lutein 300 mcg tablet (Centrum Silver Men) Super Beta Prostate 1 tab PO QAM 09/05/21 06/18/23 insulin glargine 100 unit/mL (3 15 unit subcut QPM 10/12/21 06/18/23 mL) subcutaneous pen (Lantus Solostar U-100 Insulin) insulin lispro 100 unit/mL 5 - 7 unit subcut TID 10/12/21 06/18/23 subcutaneous pen (Humalog KwikPen (U-100) Insulin) atorvastatin 40 mg tablet (Lipitor) 40 mg PO QAM 04/12/22 06/18/23 Previous Rx's Medication Instructions Recorded pen needle, diabetic 31 gauge x #400 ea 07/11/2116" (BD Ultra-Fine Mini Pen Needle) blood sugar diagnostic (OneTouch #100 ea 08/26/21 Ultra Test strips) clopidogrel 75 mg tablet 75 mg PO DAILY #90 tabs 12/09/21 tamsulosin 0.4 mg capsule 0.4 mg PO DAILY #90 caps 12/09/21 pantoprazole 40 mg tablet,delayed 40 mg PO DAILY #30 tabs 09/26/22 release Results & Data (ED) Vital Signs Vital Signs - 24 hr 06/18/23 10:42 06/18/23 10:56 06/18/23 10:56 Temperature 36.4 C L Temperature Source Oral Pulse Rate 78 78 Pulse Rate from SpO2 Sensor Pulse Rhythm Respiratory Rate 32 H 28 H Respiratory Effort / Characteristics Non-Labored Respiratory Depth Normal Respiratory Pattern Regular Blood Pressure 125/84 125/84 125/84 Blood Pressure Mean 97 88 97 Pulse Oximetry 100 Oxygen Delivery Method Room Air Sepsis Recent Fever Within 48 Hours No Sepsis New/Unexplained Change in Mental Status N/A Sepsis Action Taken by Nursing No Action Required 06/18/23 11:00 06/18/23 11:24 06/18/23 11:30 Temperature Temperature Source Pulse Rate 75 78 78 Pulse Rate from SpO2 Sensor 46 L Pulse Rhythm Regular Respiratory Rate 26 H 32 H 22 Respiratory Effort / Characteristics Respiratory Depth Respiratory Pattern Blood Pressure Blood Pressure Mean Pulse Oximetry 100 100 Oxygen Delivery Method Room Air Sepsis Recent Fever Within 48 Hours Sepsis New/Unexplained Change in Mental Status Sepsis Action Taken by Nursing 06/18/23 12:00 06/18/23 12:29 06/18/23 12:30 Temperature Temperature Source Pulse Rate 96 H 87 82 Pulse Rate from SpO2 Sensor 48 L 79 Pulse Rhythm Respiratory Rate 35 H 46 H Respiratory Effort / Characteristics Respiratory Depth Respiratory Pattern Blood Pressure Blood Pressure Mean Pulse Oximetry 100 100 Oxygen Delivery Method Sepsis Recent Fever Within 48 Hours Sepsis New/Unexplained Change in Mental Status Sepsis Action Taken by Retirement Medications Current Medication List: was personally reviewed by me Laboratory Data Attestation: I reviewed the patient's lab results. 06/18/23 14:15 06/18/23 11:06 Lab Results 06/18/23 06/18/23 06/18/23 Range/Units 11:06 11:46 12:24 WBC Cancelled RBC Cancelled Hgb Cancelled Hct Cancelled MCV Cancelled MCH Cancelled MCHC Cancelled RDW Std Deviation Cancelled RDW Coeff of Gissel Cancelled Plt Count Cancelled MPV Cancelled Immature Gran % (Auto) Cancelled Neut % (Auto) Cancelled Lymph % (Auto) Cancelled [place] % (Auto) Cancelled Eos % (Auto) Cancelled Baso % (Auto) Cancelled Neut # (Auto) Cancelled Lymph # (Auto) Cancelled [place] # (Auto) Cancelled Eos # (Auto) Cancelled Baso # (Auto) Cancelled Immature Gran # (Auto) Cancelled Absolute Nucleated RBC Cancelled Nucleated RBC % (auto) Cancelled Neutrophils % (Manual) Cancelled Band Neutrophils % Cancelled Lymphocytes % (Manual) Cancelled Prolymphocyte % Cancelled Reactive Lymphs % (Man) Cancelled Monocytes % (Manual) Cancelled Eosinophils % (Manual) Cancelled Basophils % (Manual) Cancelled Metamyelocytes % (Man) Cancelled Myelocytes % (Man) Cancelled Promyelocytes % (Man) Cancelled Blast Cells % (Manual) Cancelled Plasma Cell % (Manual) Cancelled Other Cells % Cancelled Nucleated RBC % Cancelled Neutrophils # (Manual) Cancelled Band Neutrophils # Cancelled Total Absolute Neuts Cancelled Lymphocytes # (Manual) Cancelled Prolymphocyte # Cancelled Reactive Lymphs # Cancelled Total Abs Lymphocytes Cancelled Monocytes # (Manual) Cancelled Eosinophils # (Manual) Cancelled Basophils # (Manual) Cancelled Metamyelocytes # (Man) Cancelled Myelocytes # (Manual) Cancelled Promyelocytes # (Man) Cancelled Blast Cells # (Man) Cancelled Plasma Cell # (Manual) Cancelled Other Cells # Cancelled Nucleated RBCs # (Man) Cancelled Hypersegmented Neuts Cancelled Hyposegmented Neuts Cancelled Hypogranular Neuts Cancelled Large Granular Lymphs Cancelled # Lrg Granular Lymphs Cancelled Hairy Cells Cancelled Smudge Cells Cancelled Toxic Granulation Cancelled Toxic Vacuolation Cancelled Dohle Bodies Cancelled Gianfranco Rods Cancelled Platelet Estimate Cancelled Hypogranular Platelets Cancelled Giant Platelets Cancelled Platelet Satelliting Cancelled RBC Morphology Cancelled Polychromasia Cancelled Hypochromasia Cancelled Poikilocytosis Cancelled Basophilic Stippling Cancelled Anisocytosis Cancelled Microcytosis Cancelled Macrocytosis Cancelled Spherocytes Cancelled Pappenheimer Bodies Cancelled Sickle Cells Cancelled Target Cells Cancelled Tear Drop Cells Cancelled Ovalocytes Cancelled Stomatocytes Cancelled [place] Bodies Cancelled Echinocytes Cancelled Acanthocytes (Spur) Cancelled Rouleaux Cancelled RBC Agglutinates Cancelled Schistocytes Cancelled [place]zary Cell Cancelled PT INR APTT PTT Ratio Sodium 140 (136-145) mmol/L Potassium 4.4 (3.5-5.1) mmol/L Chloride 104 (98-107) mmol/L Carbon Dioxide 17 L (21-32) mmol/L Anion Gap 19 H (3-11) BUN 21 (6-23) mg/dl Creatinine 1.30 (0.6-1.4) mg/dl Est Cr Clr Drug Dosing 46.8 ml/min Est GFR ( Amer) 61.0 ml/min Est GFR (Non-Af Amer) 52.6 ml/min BUN/Creatinine Ratio 16.2 (10-20) Glucose 172 H (70-99(Fasting)) mg/dl Lactate 5.2 H* (0.4-2.0) mmol/L Calcium 9.8 (8.6-10.3) mg/dl Magnesium 2.2 (1.7-2.4) mg/dl Total Bilirubin 1.9 H (0.2-1.0) mg/dl Direct Bilirubin 0.3 H (0-0.2) mg/dl AST 23 (13-39) U/L ALT 35 (7-52) U/L Alkaline Phosphatase 131 H (34-104) U/L Troponin I High Sens 10.4 (0-20) pg/ml Total Protein 8.0 (6.0-8.3) gm/dl Albumin 4.4 (3.4-5.0) gm/dl Procalcitonin 0.06 (0-0.5) ng/ml SARS-CoV-2 (PCR) (Negative) Influenza Type A (PCR) (Neg) Influenza Type B (PCR) (Neg) RSV (RT-PCR) (Neg) Blood Parasites ID Cancelled 06/18/23 06/18/23 06/18/23 Range/Units 12:25 12:32 14:15 WBC 7.18 RBC 4.90 Hgb 15.4 Hct 44.4 MCV 90.6 MCH 31.4 MCHC 34.7 RDW Std Deviation 41.4 RDW Coeff of Gissel 12.6 Plt Count 211 MPV 10.6 Immature Gran % (Auto) 0.7 Neut % (Auto) 73.5 Lymph % (Auto) 17.4 [place] % (Auto) 7.4 Eos % (Auto) 0.6 Baso % (Auto) 0.4 Neut # (Auto) 5.28 Lymph # (Auto) 1.25 [place] # (Auto) 0.53 Eos # (Auto) 0.04 Baso # (Auto) 0.03 Immature Gran # (Auto) 0.05 Absolute Nucleated RBC Nucleated RBC % (auto) Neutrophils % (Manual) Band Neutrophils % Lymphocytes % (Manual) Prolymphocyte % Reactive Lymphs % (Man) Monocytes % (Manual) Eosinophils % (Manual) Basophils % (Manual) Metamyelocytes % (Man) Myelocytes % (Man) Promyelocytes % (Man) Blast Cells % (Manual) Plasma Cell % (Manual) Other Cells % Nucleated RBC % Neutrophils # (Manual) Band Neutrophils # Total Absolute Neuts Lymphocytes # (Manual) Prolymphocyte # Reactive Lymphs # Total Abs Lymphocytes Monocytes # (Manual) Eosinophils # (Manual) Basophils # (Manual) Metamyelocytes # (Man) Myelocytes # (Manual) Promyelocytes # (Man) Blast Cells # (Man) Plasma Cell # (Manual) Other Cells # Nucleated RBCs # (Man) Hypersegmented Neuts Hyposegmented Neuts Hypogranular Neuts Large Granular Lymphs # Lrg Granular Lymphs Hairy Cells Smudge Cells Toxic Granulation Toxic Vacuolation Dohle Bodies Gianfranco Rods Platelet Estimate Hypogranular Platelets Giant Platelets Platelet Satelliting RBC Morphology Polychromasia Hypochromasia Poikilocytosis Basophilic Stippling Anisocytosis Microcytosis Macrocytosis Spherocytes Pappenheimer Bodies Sickle Cells Target Cells Tear Drop Cells Ovalocytes Stomatocytes [place] Bodies Echinocytes Acanthocytes (Spur) Rouleaux RBC Agglutinates Schistocytes Sezary Cell PT Cancelled 12.4 H INR Cancelled 1.1 APTT Cancelled 32 H PTT Ratio Cancelled 1.1 Sodium (136-145) mmol/L Potassium (3.5-5.1) mmol/L Chloride (98-107) mmol/L Carbon Dioxide (21-32) mmol/L Anion Gap (3-11) BUN (6-23) mg/dl Creatinine (0.6-1.4) mg/dl Est Cr Clr Drug Dosing ml/min Est GFR ( Amer) ml/min Est GFR (Non-Af Amer) ml/min BUN/Creatinine Ratio (10-20) Glucose (70-99(Fasting)) mg/dl Lactate 4.4 H* (0.4-2.0) mmol/L Calcium (8.6-10.3) mg/dl Magnesium (1.7-2.4) mg/dl Total Bilirubin (0.2-1.0) mg/dl Direct Bilirubin (0-0.2) mg/dl AST (13-39) U/L ALT (7-52) U/L Alkaline Phosphatase (34-104) U/L Troponin I High Sens (0-20) pg/ml Total Protein (6.0-8.3) gm/dl Albumin (3.4-5.0) gm/dl Procalcitonin (0-0.5) ng/ml SARS-CoV-2 (PCR) NEGATIVE (Negative) Influenza Type A (PCR) Negative (Neg) Influenza Type B (PCR) Negative (Neg) RSV (RT-PCR) Negative (Neg) Blood Parasites ID Administered Medications Discontinued Medications Sodium Chloride (Nss) 1,000 mls @ 999 mls/hr IV .Q1H1M NIKOLAI Stop: 06/18/23 12:15 Last Infusion: 06/18/23 14:23 Dose: Infused Documented By: Admin: 06/18/23 12:36 Dose: 999 mls/hr Documented By: RICARDO Piperacillin Sod/Tazobactam (Sod 4.5 gm/ Dextrose) 100 mls @ 200 mls/hr IV NOW ONE; Protocol Stop: 06/18/23 11:35 Last Infusion: 06/18/23 13:17 Dose: Infused Documented By: Admin: 06/18/23 12:36 Dose: 200 mls/hr Documented By: RICARDO Sodium Chloride (Nss) 1,000 mls @ 999 mls/hr IV .Q1H1M ONE Stop: 06/18/23 14:22 Last Infusion: 06/18/23 14:23 Dose: Infused Documented By: Admin: 06/18/23 13:40 Dose: 999 mls/hr Documented By: DYANA Sodium Chloride (Nss) 250 mls @ 999 mls/hr IV .Q16M ONE Stop: 06/18/23 13:37 Last Infusion: 06/18/23 14:23 Dose: Infused Documented By: Admin: 06/18/23 13:52 Dose: 999 mls/hr Documented By: DYANA Daptomycin 425 mg/ Syringe 8.5 mls @ 4.25 mls/min IV NOW STA; Protocol Stop: 06/18/23 13:24 Last Admin: 06/18/23 14:03 Dose: 4.25 mls/min Documented By: DYANA Acetaminophen (Ofirmev) 1,000 mg in 100 mls @ 400 mls/hr IV NOW STA Stop: 06/18/23 13:47 Last Infusion: 06/18/23 14:23 Dose: Infused Documented By: Admin: 06/18/23 13:40 Dose: 400 mls/hr Documented By: DYANA Clindamycin Phosphate (Cleocin/D5w) 900 mg in 50 mls @ 100 mls/hr IV NOW STA Stop: 06/18/23 14:32 Last Infusion: 06/18/23 15:02 Dose: Infused Documented By: Admin: 06/18/23 14:24 Dose: 100 mls/hr Documented By: RICARDO Imaging Data Radiologist's Impression: Chest X-Ray 06/18/23 11:06 XR chest 1V portable CLINICAL HISTORY: Sepsis. COMPARISON STUDY: Chest CT July 12, 2022. Chest radiograph August 27, 2022. FINDINGS: There are median sternotomy wires. Lung volumes are normal. Lungs are clear. There is no pneumothorax or pleural effusion. Cardiac size is stable. Mediastinal contours are normal. There is no evidence for pulmonary edema. IMPRESSION: No acute cardiopulmonary findings. No change in appearance of the chest. ACT 112: Negative or not required by law. Electronically signed by: Barber Finnegan M.D. 06/18/2023 12:[address] 06/18/23 11:[address] WITHOUT CONTRAST CLINICAL HISTORY: poss osteo COMPARISON STUDY: Left foot radiographs October 18, 2021. MRI of the left foot November 05, 2021. TECHNIQUE: Axial images of the left foot were obtained without IV contrast. Sagittal and coronal reconstructions were viewed. Automated exposure control was utilized for the study. A dose lowering technique was utilized adhering to the principles of ALARA. FINDINGS: There are stable postoperative findings following distal left tibial and fibular internal fixation. The hardware is intact. There is moderate left ankle osteoarthritis. No acute fractures are present. No foci of bony destruction within the left hindfoot or midfoot are present. There is soft tissue gas within the left fifth toe. In addition, there is soft tissue gas throughout the distal phalanx of the left fifth toe. The gas does not extend more proximally. There is gas along the undersurface of the nail of the left first toe. No gas within the distal phalanx of the left first toe is present. Apparent subtle erosion of the distal tuft of the distal phalanx of the left first toe is noted. This may be chronic. There is moderate vascular calcification. The distal phalanx of the left second toe has been amputated. Expected postoperative findings are present. Tarsometatarsal joints appear intact. IMPRESSION: 1. Soft tissue gas within the left fifth toe and intraosseous gas within the distal phalanx of the left fifth toe highly suggestive of osteomyelitis. This gas could be due to a gas-forming infectious process or related to an open wound. 2. Soft tissue gas within the left first toe. This may be related to the toenail. However, an infectious process cannot be excluded. Equivocal erosion of the distal tuft of the distal phalanx of the left first toe. This is probably chronic however additional focus of acute osteomyelitis cannot be excluded. 3. Stable postoperative findings following distal left tibial and fibular internal fixation. ACT 112: Negative or not required by law. Electronically signed by: Barber Finnegan M.D. 06/18/2023 1:52 PM Discharge Plan Visit Data Chief Complaint: Infection, Wound Stated Complaint: FOOT PAIN, UNABLE TO AMBULATE, NECROCTIC TOES ED Provider: Jonny El Discharge Problem: Sepsis, Cellulitis of left foot, Osteomyelitis, Gangrene, Elevated lactic acid level, Tachypnea Patient Disposition: Admitted As Inpatient Condition: Serious Forms Stand Alone Forms: My [facility] ALICE App Prescriptions Prescriptions: No Action (DME) pen needle, diabetic [BD Ultra-Fine Mini Pen Needle] 31 gauge x 3/16" needle See Rx Instructions .Route Qty: 400 3RF Hold Instructions: Home Medication placed on hold at Doctor's office Rx Instructions: USE FOUR TIMES DAILY. DX: E11.9 (DME) OneTouch Ultra Test Strip See Rx Instructions .Route Qty: 100 3RF Rx Instructions: testing 4 times daily clopidogrel 75 mg tablet 75 mg PO DAILY Qty: 90 1RF Hold Instructions: Home Medication placed on hold at Doctor's office Rx Instructions: PER PT "HAVE NOT TAKEN ANY MEDS SINCE NOVEMBER 2022". tamsulosin 0.4 mg capsule 0.4 mg PO DAILY Qty: 90 1RF Hold Instructions: Home Medication placed on hold at Doctor's office Rx Instructions: PER PT "HAVE NOT TAKEN ANY MEDS SINCE NOVEMBER 2022". Super Beta Prostate 1 tab PO QAM Hold Instructions: Home Medication placed on hold at Doctor's office Rx Instructions: PER PT "HAVE NOT TAKEN ANY MEDS SINCE NOVEMBER 2022". pantoprazole 40 mg tablet,delayed release (DR/EC) 40 mg PO DAILY Qty: 30 5RF Hold Instructions: Home Medication placed on hold at Doctor's office Rx Instructions: PER PT "HAVE NOT TAKEN ANY MEDS SINCE NOVEMBER 2022". Lantus Solostar U-100 Insulin 100 unit/mL (3 mL) insulin pen 15 unit subcut QPM Hold Instructions: Home Medication placed on hold at Doctor's office Rx Instructions: PER PT "HAVE NOT TAKEN ANY MEDS SINCE NOVEMBER 2022".as directed insulin lispro [Humalog KwikPen Insulin] 100 unit/mL insulin pen 5 - 7 unit SQ TID Hold Instructions: Home Medication placed on hold at Doctor's office Rx Instructions: PER PT "HAVE NOT TAKEN ANY MEDS SINCE NOVEMBER 2022".or as directed before meals acetaminophen [Tylenol Extra Strength] 500 mg tablet 1,000 mg PO Q8H PRN (Reason: Pain) Rx Instructions: PER PT "HAVE NOT TAKEN ANY MEDS SINCE NOVEMBER 2022". cyanocobalamin (vitamin B-12) [Vitamin B-12] 1,000 mcg tablet 1,000 mcg PO QAM Hold Instructions: Home Medication placed on hold at Doctor's office Rx Instructions: PER PT "HAVE NOT TAKEN ANY MEDS SINCE NOVEMBER 2022". nitroglycerin [Nitrostat] 0.4 mg Tablet, Sublingual 0.4 mg sublingual UD PRN (Reason: Chest Pain) Rx Instructions: PER PT "HAVE NOT TAKEN ANY MEDS SINCE NOVEMBER 2022". Centrum Silver Men 300-600-300 mcg Tablet 1 tab PO DAILY Hold Instructions: Home Medication placed on hold at Doctor's office Rx Instructions: PER PT "HAVE NOT TAKEN ANY MEDS SINCE NOVEMBER 2022". atorvastatin [Lipitor] 40 mg tablet 40 mg PO QAM Hold Instructions: Home Medication placed on hold at Doctor's office Rx Instructions: PER PT "HAVE NOT TAKEN ANY MEDS SINCE NOVEMBER 2022". Referrals Referrals: Fox Moran MD [Primary Care Provider] - Discharge Problem: Sepsis Qualifiers: Sepsis type: sepsis due to unspecified organism Sepsis acute organ dysfunction status: without acute organ dysfunction Qualified Code(s): A41.9 - Sepsis, unspecified organism Osteomyelitis Qualifiers: Osteomyelitis type: unspecified type Osteomyelitis location: foot Laterality: l eft Qualified Code(s): M86.9 - Osteomyelitis, unspecified
[2023-06-18] MEDS ORDERED: SODIUM CHLORIDE 0.9% 1,000 ML IV SCH ×2 (11:15→17:29)
--- NOTE | 2023-06-18 12:14 | XRay Report ---
XR chest 1V portable CLINICAL HISTORY: Sepsis. COMPARISON STUDY: Chest CT July 12, 2022. Chest radiograph August 27, 2022. FINDINGS: There are median sternotomy wires. Lung volumes are normal. Lungs are clear. There is no pn eumothorax or pleural effusion. Cardiac size is stable. Mediastinal contours are normal. There is no evidence for pulmonary edema. IMPRESSION: No acute cardiopulmonary findings. No change in appearance of the chest. ACT 112: Negative or not required by law. Electronically signed by: Barber Finnegan M.D. 06/18/2023 12:13 PM
[2023-06-18 13:03] LABS: Albumin Level 4.4 gm/dl (3.4-5.0); BUN Creatinine Ratio 16.2 (10-20); Bilirubin Direct 0.3 mg/dl (0-0.2); Bilirubin,Total 1.9 mg/dl (0.2-1.0); Calcium 9.8 mg/dl (8.6-10.3); Creatinine Clr Calc Pharmacy 46.8 ml/min; Est GFR (Non-African American) 52.6 ml/min; Magnesium 2.2 mg/dl (1.7-2.4); Potassium 4.4 mmol/L (3.5-5.1)
[2023-06-18 13:08] LABS: Troponin I High Sensitivity 10.4 pg/ml (0-20)
[2023-06-18] MEDS ORDERED: SODIUM CHLORIDE 0.9% 250 ML IV ONE (13:22)
[2023-06-18] MEDS ORDERED: SODIUM CHLORIDE 0.9% 1,000 ML IV ONE (13:22)
[2023-06-18] MEDS ORDERED: DAPTOmycin 425 MG in SYRINGE 0 ML IV STA (13:23)
[2023-06-18 13:25] LABS: Influenza A virus by PCR Negative (Neg); Influenza B virus by PCR Negative (Neg); RSV by PCR Negative (Neg); SARS CoV2 RNA(COVID-19) Ceph NEGATIVE (Negative)
[2023-06-18] MEDS ORDERED: ACETAMINOPHEN 1,000 MG/100 ML VIAL IV STA (13:33)
--- NOTE | 2023-06-18 13:54 | CT Scan Report ---
LEFT FOOT CT WITHOUT CONTRAST CLINICAL HISTORY: poss osteo COMPARISON STUDY: Left foot radiographs October 18, 2021. MRI of the left foot November 05, 2021. TECHNIQUE: Axial images of the left foot were obtained without IV contrast. Sagittal and coronal savannah nstructions were viewed. Automated exposure control was utilized for the study. A dose lowering tech nique was utilized adhering to the principles of ALARA. FINDINGS: There are stable postoperative findings following distal left tibial and fibular internal f ixation. The hardware is intact. There is moderate left ankle osteoarthritis. No acute fractures are present. No foci of bony destruction within the left hindfoot or midfoot are present. There is soft t issue gas within the left fifth toe. In addition, there is soft tissue gas throughout the distal phal anx of the left fifth toe. The gas does not extend more proximally. There is gas along the undersurfa ce of the nail of the left first toe. No gas within the distal phalanx of the left first toe is prese nt. Apparent subtle erosion of the distal tuft of the distal phalanx of the left first toe is noted. This may be chronic. There is moderate vascular calcification. The distal phalanx of the left second toe has been amputated. Expected postoperative findings are present. Tarsometatarsal joints appear in tact. IMPRESSION: 1. Soft tissue gas within the left fifth toe and intraosseous gas within the distal phalanx of the le ft fifth toe highly suggestive of osteomyelitis. This gas could be due to a gas-forming infectious pr ocess or related to an open wound. 2. Soft tissue gas within the left first toe. This may be related to the toenail. However, an infecti ous process cannot be excluded. Equivocal erosion of the distal tuft of the distal phalanx of the lef t first toe. This is probably chronic however additional focus of acute osteomyelitis cannot be exclu ded. 3. Stable postoperative findings following distal left tibial and fibular internal fixation. ACT 112: Negative or not required by law. Electronically signed by: Barber Finnegan M.D. 06/18/2023 1:52 PM
[2023-06-18] MEDS ORDERED: CLINDAMYCIN/D5W 900 MG/50 ML PREMIX BAG IV STA (14:03)
[2023-06-18 14:32] LABS: Basophils # (auto) 0.03 K/uL (0.00-0.20); Basophils % (auto) 0.4 %; Eosinophils # (auto) 0.04 K/uL (0.00-0.50); Eosinophils % (auto) 0.6 %; Hematocrit (blood only) 44.4 % (42.0-52.0); Hemoglobin 15.4 g/dl (14.0-18.0); Immature Granulocytes # (auto) 0.05 K/uL (0.01-0.20); Immature Granulocytes % (auto) 0.7 %; Lymphocytes # (auto) 1.25 K/uL (1.20-3.40); Lymphocytes % (auto) 17.4 %; Mean Corpuscular Hemoglobin 31.4 pg (25.0-34.0); Mean Corpuscular Hgb Conc 34.7 g/dL (32.0-36.0); Mean Corpuscular Volume 90.6 fL (80.0-100.0); Mean Platelet Volume 10.6 fL (9.4-12.4); Monocytes # (auto) 0.53 K/uL (0.11-0.59); Monocytes % (auto) 7.4 %; Neutrophils # (auto) 5.28 K/uL (1.40-6.50); Neutrophils % (auto) 73.5 %; Platelet Count 211 K/uL (130-400); RDW Coefficient of Variation 12.6 % (11.5-14.5); RDW Standard Deviation 41.4 fL (36.4-46.3); White Blood Count 7.18 K/ul (4.8-10.8)
--- NOTE | 2023-06-18 14:53 | Electrocardiogram Report ---
Test Reason : Blood Pressure : / mmHG Vent. Rate : 077 BPM Atrial Rate : 077 BPM P-R Int : 160 ms QRS Dur : 114 ms QT Int : 426 ms P-R-T Axes : 065 -55 139 degrees QTc Int : 482 ms Sinus rhythm with Premature atrial complexes in a pattern of bigeminy Incomplete right bundle branch block Old Inferior infarct Poor R wave progression, consider anterior VT vs. lead placement vs. LVH Abnormal ECG When compared with ECG of 27-AUG-2022 18:03, Premature ventricular complexes are no longer Present Premature atrial complexes are now Present QRS duration has decreased Confirmed by Crispin Mejia ([id number]) on 06/18/2023 2:53:37 PM Referred By: REFERRED SELF Confirmed By:Crispin Mejia
[2023-06-18 14:56] LABS: INR 1.1 (0.9-1.1); Partial Thromboplastin Ratio 1.1; Partial Thromboplastin Time 32 Seconds (21-31); Prothrombin Time 12.4 Seconds (9.0-12.0)
--- NOTE | 2023-06-18 15:08 | History & Physical Report ---
Date of Service June 18, 2023 Assessment & Plan (1) Sepsis: Plan: Patient presented with tachypnea elevated lactic acid rigors Long resuscitated with crystalloid, will continue IV for another liter fluid Gangrene source of sepsis left foot exposed bone confirmed by imaging with gas seen in tissues Blood cultures obtained wound culture pending Initiated on clindamycin daptomycin and Zosyn these are continued. Previous surgery by Dr. Ranjit Lu on-call recommended consulting podiatry Dr. Price was eventually reached and will be coming in to see the patient (2) Duodenal ulcer: Plan: Diagnosed in August persistent issue with this patient with profound outpatient weight loss. Patient stopped taking all medications bothered by daily abdominal pain. This is acute on chronic will use Carafate and have Pepcid IV twice daily (3) Controlled type 2 diabetes mellitus with neurologic complication, with long- term current use of insulin: Plan: Due to duodenal ulcer and abdominal pain patient is lost a significant amount of weight over the last 1 year and has now been off all diabetic medications with last hemoglobin A1c of 5.6. Will check q. ACHS glucose checks and have loose sliding scale if needed (4) Unintentional weight loss of 10% body weight within 6 months: Plan: Due to abdominal pain from duodenal ulcers. Patient has not been taking medications at home. Plan Patient given 2 doses of heparin in preparation for possible surgical intervention History of Present Illness Primary Care Provider: Fox Moran MD 78-year-old male presents with foot pain lower leg pain black toes tachypnea and weakness Found to likely have sepsis from gangrene to his left foot with gas seen on imaging and soft tissues and osteomyelitis confirmed Patient previously a diabetic who has not been able to eat for 2 years due to stomach pain. Refractory to medical care not taking medications at home who has a declining health and now found to have the gangrene as mentioned. He is agreeable to pursue surgical correction and has previously lost the tip of his left second toe due to complications of diabetic foot infection surgeon was Dr. Boyd. Patient reportedly stopped his insulin last A1c was 5.6 this is due to not being able to eat and having tremendous weight loss as mentioned. He did have an endoscopy earlier in 2022 with confirmed esophagitis gastritis and duodenal ulcers which were nonbleeding. Despite taking Protonix it did not help his symptoms so he decided to stop all medications a few weeks/months ago Allergies Allergy/AdvReac Type Severity Reaction Status Date / Time morphine AdvReac Severe "STOPS MY Verified 06/18/23 15:02 HEART" diazepam AdvReac Intermediate HALLUCINATE Verified 06/18/23 15:02 S hydromorphone [From Dilaudid] AdvReac Intermediate unresponsiv Verified 06/18/23 15:02 eness propoxyphene AdvReac Intermediate DRUG Verified 06/18/23 15:02 INTOLERANCE trazodone AdvReac Intermediate GI UPSET Verified 06/18/23 15:02 Home Medications Medication Instructions Recorded Confirmed Type acetaminophen 500 mg tablet 1,000 mg PO Q8H PRN Pain 06/05/19 06/18/23 History (Tylenol Extra Strength) nitroglycerin 0.4 mg sublingual 0.4 mg sublingual UD PRN Chest Pain 11/04/20 06/18/23 History tablet (Nitrostat) pen needle, diabetic 31 gauge x #400 ea 07/11/21 11/28/22 Rx 3/16" (BD Ultra-Fine Mini Pen Needle) cyanocobalamin (vitamin B-12) 1,000 mcg PO QAM 08/10/21 06/18/23 History 1,000 mcg tablet (Vitamin B-12) blood sugar diagnostic (OneTouch #100 ea 08/26/21 11/28/22 Rx Ultra Test strips) agvadmdp-ig-mateu 300 mcg-K 60 1 tab PO DAILY 09/01/21 06/18/23 History mcg-lycop 600 mcg-lutein 300 mcg tablet (Centrum Silver Men) Super Beta Prostate 1 tab PO QAM 09/05/21 06/18/23 History insulin glargine 100 unit/mL (3 15 unit subcut QPM 10/12/21 06/18/23 History mL) subcutaneous pen (Lantus Solostar U-100 Insulin) insulin lispro 100 unit/mL 5 - 7 unit subcut TID 10/12/21 06/18/23 History subcutaneous pen (Humalog KwikPen (U-100) Insulin) clopidogrel 75 mg tablet 75 mg PO DAILY #90 tabs 12/09/21 06/18/23 Rx tamsulosin 0.4 mg capsule 0.4 mg PO DAILY #90 caps 12/09/21 06/18/23 Rx atorvastatin 40 mg tablet (Lipitor) 40 mg PO QAM 04/12/22 06/18/23 History pantoprazole 40 mg tablet,delayed 40 mg PO DAILY #30 tabs 09/26/22 06/18/23 Rx release Past Med/Surg History Medical History (Updated 06/18/23 @ 15:48 by Luis E Veloz MD) Poor historian GERD (gastroesophageal reflux disease) On anticoagulant therapy Kidney stones hx History of COVID-06 May 2022 at a [facility] in [place], [facility]. Peripheral neuropathy Prostate cancer pt did not acknowledge. Sepsis hx Schizoaffective disorder pt denies JUANCARLOS (acute kidney injury) BPH (benign prostatic hyperplasia) Amputated toe of left foot Cellulitis Osteomyelitis hx Diabetic ulcer of toe hx History of diverticulosis Mild cognitive impairment alert and oriented x3 -- "forgetful about his history" Stroke HX X 2-11/2004 AND 09/2019-F/U DR NÚÑEZ Orthostatic dizziness at times Failure of outpatient treatment Venous stasis ulcers of both lower extremities hx in 2019 Venous (peripheral) insufficiency Recurrent falls Parkinsonism per medical record - pt unaware Intermittent explosive disorder Delusional disorder, somatic type not currently -- pt unaware -- pt alert and oriented x3 at this time. Alcohol abuse pt states he quit "a long time ago" Chronic diastolic CHF (congestive heart failure) Benign colonic polyp Dyslipidemia History of tobacco use Nephrolithiasis Raynauds phenomenon Stage III chronic kidney disease Tubular adenoma of colon History of CVA (cerebrovascular accident) hx in 2004 and 2019 --> follows with Dr Núñez. Migraines hx Acute on chronic renal insufficiency pt unsure Osteoarthritis Diabetes mellitus, type 2 IDDM Hypertension Hyperlipidemia Myocardial Infarction 2004--follows with Dr. Mejia Surgical History H/O left cataract extraction S/P CABG (coronary artery bypass graft) 4 [facility] [place] S/P sinus surgery History of lumbar discectomy x2 History of carpal tunnel release of both wrists History of open reduction and internal fixation (ORIF) procedure left ankle--hardware in place History of arthroscopy of left knee History of lithotripsy x2 History of colonoscopy History of tonsillectomy and adenoidectomy Status post uvulopalatopharyngoplasty History of right cataract extraction History of heart artery stent (1998) x1 stent History of cardiac cath x4-5, last 05/19/2019 [facility] NO RECENT STENTS Family History Father Diabetes Prostate cancer Colorectal cancer Myocardial infarction Brother Prostate cancer Uncle Colorectal cancer Father Myocardial infarction Mother Myocardial infarction Stroke Other Dementia No family history of adverse response to anesthesia Denies family history of Ovarian cancer Breast cancer Social History Smoking Status: Former smoker Tobacco Type: Cigarettes Age Quit Using Tobacco: 71; packs per day: 3; Cigarettes Per Day: 3; Second Hand Exposure: Yes (hx); Do You Dip or Chew Tobacco: No (quit "a long time ago"); Hx Alcohol Use: No (quit "a long time ago") Hx Substance Use: No Preferred Language: Gabonese Communication Ability: Effective Communication Ability Comment: Patient with confusion. 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 How many Children do You have: 1 other: [employer] (garbage collection); chemical exposure Feels Safe at Home: Yes Childhood Exposure to Second-Hand Smoke: Yes Diet: regular Dental Care, Regularly: Yes Physical Activity Frequency: Daily Seatbelt Use: always Sunscreen Use: No Assistive Devices: Denture - Upper and Glasses Review of Systems Review of Systems: Moderate distress and fatigue uncontrollable shivering no headache, no visual changes no speech or swallowing issues no chest pain, pressure or palpitations no shortness of breath, cough or wheezes Chronic persistent abdominal pain with nausea decreased appetite, constipation no dysuria, hematuria or frequency Left lower foot pain with dry gangrene seen no back pain, CVA tenderness or radicular pain no focal signs of weakness or numbness or altered sensation no complaints of anxiety or depression.. Physical Exam Physical Exam: The patient appeared ill, shaking, not febrile Vital signs as documented. Head exam is normocephalic atraumatic Neck is without JVD, thyromegaly, or carotid bruits. Lungs are clear to auscultation, no focal loss of breath sounds Cardiac exam, Rhythm is regular.. No murmurs, rubs or gallops. Abdominal exam reveals normal bowel sounds, soft non tender, no masses Extremities are nonedematous and both pedal pulses are present Neurologic exam is alert and oriented, no focal loss of strength or sensation Skin is with gangrene to toes left 1st and 5th open area to 5th toe bone exposed Psychologically pt denies depression Results & Data Results & Data Vital Signs (Past 12 Hours) Vital Signs Temp Pulse Resp BP Pulse Ox O2 Del Method 06/18/23 12:30 82 46 H 100 06/18/23 12:29 87 06/18/23 12:00 96 H 35 H 100 06/18/23 11:30 78 22 100 06/18/23 11:24 78 32 H 100 Room Air 06/18/23 11:00 75 26 H 06/18/23 10:56 78 28 H 125/84 06/18/23 10:56 125/84 06/18/23 10:42 97.5 F L 78 32 H 125/84 100 Room Air Laboratory Results Reviewed CBC reviewed chemistry reviewed CT scan results PG Care Time/CCT Total # of Minutes Spent Total Time Spent with Patient: Total time spent is greater than 50% in coordination of care (as documented) at patient's floor/unit and/or counseling patient: Coding Level of Care Code 23433 INT INP/OBS CARE 3/75MIN Diagnoses Sepsis A41.9 Sepsis acute organ dysfunction status: without acute organ dysfunction Sepsis type: sepsis due to unspecified organism Duodenal ulcer K26.9 Controlled type 2 diabetes mellitus with neurologic complication, with long-term current use of insulin E11.49; Z79.4 Unintentional weight loss of 10% body weight within 6 months R63.4 (1) Sepsis Sepsis acute organ dysfunction status: without acute organ dysfunction Sepsis type: sepsis due to unspecified organism Qualified Code(s): A41.9 - Sepsis, unspecified organism
--- NOTE | 2023-06-18 16:53 | XRay Report ---
XR foot LT min 3V routine CLINICAL HISTORY: foot infection COMPARISON: Left foot radiographs November 07, 2021. Left foot CT performed earlier today. FINDINGS: Distal left tibial and fibular internal fixation is noted. The postoperative appearance is unchanged. Stable postoperative findings following amputation of the distal phalanx of the left se[place] toe. Gas within the distal phalanx of the left fifth toe is noted. There is soft tissue gas. The m iddle and distal phalanges of the left fifth toe are fused. No acute fractures identified. There is s ubtle erosion of the distal tuft of the distal phalanx of the left first toe. This appears new since prior radiographs. Subtle cortical irregularity of the distal tuft of the distal phalanx of the left third toe is unchanged. IMPRESSION: 1. Soft tissue gas and intraosseous gas within distal phalanx of left fifth toe suggestive of osteomy elitis. The gas could be due to a gas-forming infectious process or the open wound. 2. Interval subtle erosion of the distal tuft of the distal phalanx of the left first toe. This sugge sts osteomyelitis. 3. Stable postoperative findings following amputation of the distal phalanx of the left second toe. ACT 112: Negative or not required by law. Electronically signed by: Barber Finnegan M.D. 06/18/2023 4:50 PM
[2023-06-18] MEDS ORDERED: ONDANSETRON INJ 2 MG/ML 2 ML VIAL IV PRN (17:29)
[2023-06-18] MEDS ORDERED: DEXTROSE 50% 50 ML SYRINGE IV PRN (17:29)
[2023-06-18] MEDS ORDERED: GLUCAGON FOR INJ 1 MG VIAL SQ PRN (17:29)
[2023-06-18] MEDS ORDERED: MoRPHine SULFATE 4 MG/ML 1 ML CARP\\VIAL IV PRN (17:29)
[2023-06-18] MEDS ORDERED: MoRPHine SULFATE 2 MG/ML CARP IV PRN (17:29)
[2023-06-18] MEDS ORDERED: GLUCOSE 10 TAB/TUBE PO PRN (17:29)
[2023-06-18] MEDS ORDERED: ALUMINUM/MAGNESIUM SUSP 30 ML UDC PO PRN (17:29)
[2023-06-18] MEDS ORDERED: CARBOHYDRATES FOR HYPOGLYCEMIA PO PRN (17:29)
[2023-06-18] MEDS ORDERED: GLUCOSE 40% GEL 15 GM TUBE PO PRN (17:29)
[2023-06-18] MEDS ORDERED: FAMOTIDINE 20 MG in SYRINGE 3 ML IV ONE (18:00)
[2023-06-18] MEDS: INSULIN ASPART PER UNIT CHARGE SC SCH ×2 (18:24→21:05)
[2023-06-18] MEDS: SUCRALFATE 1 GM/10 ML UDC PO SCH ×2 (18:25→21:04)
[2023-06-18] MEDS: PIPERACILLIN/TAZOBACTAM 4.5 GM in DEXTROSE 5% MINI-B 100 ML IV SCH (18:27)
--- NOTE | 2023-06-18 20:53 | Orthopedic Consultation ---
Date of Consultation June 18, 2023 Assessment & Plan (1) Gangrene: Patient seen and evaluated at bedside in pod A9 at [facility] Emergency department. Patient will require amputation of left first and fifth digits secondary to osteomyelitis and necrotic gangrene. Patient is in agreement. There is concern over absent pedal pulses. Duplex arterial ultrasound ordered. Vascular consult placed. Surgical care scheduled for 06/19/22 amputation of first and fifth toes of left foot. (2) Osteomyelitis: (3) Cellulitis of left foot: (4) Sepsis: History of Present Illness Attending Physician: Flakito Rick MD History of Present Illness Patient is a 78-year-old male seen at [facility] Emergency Department in POD A9. History is obtained from Patient, Patient's daughter who is present and prior documentation. Patient has a past medical history significant for GERD, on anticoagulant therapy, kidney stones, history of COVID 19, peripheral neuropathy, prostate cancer, sepsis, schizoaffective disorder, acute kidney injury, benign prostatic hyperplasia, amputated toe of left foot, cellulitis, osteomyelitis, diabetic ulcer of toe, history of diverticulitis, mild cognitive impairment, stroke, orthostatic dizziness, failure of outpatient treatment, venous stasis ulcers of both lower extremities, peripheral venous insufficiency, recurrent falls, parkinsonism, intermittent explosive disorder, delusional disorder, somatic type, alcohol abuse, chronic diastolic CHF, benign colonic polyp, dyslipidemia, history of tobacco use, nephrolithiasis, Raynaud's phenomenon, stage III chronic kidney disease, tubular adenoma of colon, history of CVA, migraines, acute on chronic renal insufficiency, osteoarthritis, type 2 diabetes, hypertension, hyperlipidemia, myocardial infarction. Patient is seen for darkened left first and fifth toes. Patient has stopped seeing physicians and stopped taking all his medication. As per his family, today, he allowed them to take a look at his feet. The left foot was blackened and foul-smelling. The patient states that he has noticed the blackness to his toes for some time, he chose not to have an evaluation. Today when his family took a look at his feet, they called the ambulance for transport. Allergies Allergy/AdvReac Type Severity Reaction Status Date / Time morphine AdvReac Severe "STOPS MY Verified 06/18/23 15:02 HEART" diazepam AdvReac Intermediate HALLUCINATE Verified 06/18/23 15:02 S hydromorphone [From Dilaudid] AdvReac Intermediate unresponsiv Verified 06/18/23 15:02 eness propoxyphene AdvReac Intermediate DRUG Verified 06/18/23 15:02 INTOLERANCE trazodone AdvReac Intermediate GI UPSET Verified 06/18/23 15:02 Home Medications Medication Instructions Recorded Confirmed Type acetaminophen 500 mg tablet 1,000 mg PO Q8H PRN Pain 06/05/19 06/18/23 History (Tylenol Extra Strength) nitroglycerin 0.4 mg sublingual 0.4 mg sublingual UD PRN Chest Pain 11/04/20 06/18/23 History tablet (Nitrostat) pen needle, diabetic 31 gauge x #400 ea 07/11/21 11/28/22 Rx 3/16" (BD Ultra-Fine Mini Pen Needle) cyanocobalamin (vitamin B-12) 1,000 mcg PO QAM 08/10/21 06/18/23 History 1,000 mcg tablet (Vitamin B-12) blood sugar diagnostic (OneTouch #100 ea 08/26/21 11/28/22 Rx Ultra Test strips) [id number] 300 mcg-K 60 1 tab PO DAILY 09/01/21 06/18/23 History mcg-lycop 600 mcg-lutein 300 mcg tablet (Centrum Silver Men) Super Beta Prostate 1 tab PO QAM 09/05/21 06/18/23 History insulin glargine 100 unit/mL (3 15 unit subcut QPM 10/12/21 06/18/23 History mL) subcutaneous pen (Lantus Solostar U-100 Insulin) insulin lispro 100 unit/mL 5 - 7 unit subcut TID 10/12/21 06/18/23 History subcutaneous pen (Humalog KwikPen (U-100) Insulin) clopidogrel 75 mg tablet 75 mg PO DAILY #90 tabs 12/09/21 06/18/23 Rx tamsulosin 0.4 mg capsule 0.4 mg PO DAILY #90 caps 12/09/21 06/18/23 Rx atorvastatin 40 mg tablet (Lipitor) 40 mg PO QAM 04/12/22 06/18/23 History pantoprazole 40 mg tablet,delayed 40 mg PO DAILY #30 tabs 09/26/22 06/18/23 Rx release Patient History Medical History Poor historian GERD (gastroesophageal reflux disease) On anticoagulant therapy Kidney stones hx History of COVID-06 May 2022 at a [facility] in [place], [facility]. Peripheral neuropathy Prostate cancer pt did not acknowledge. Sepsis hx Schizoaffective disorder pt denies JUANCARLOS (acute kidney injury) BPH (benign prostatic hyperplasia) Amputated toe of left foot Cellulitis Osteomyelitis hx Diabetic ulcer of toe hx History of diverticulosis Mild cognitive impairment alert and oriented x3 -- "forgetful about his history" Stroke HX X 2-11/2004 AND 09/2019-F/U DR NÚÑEZ Orthostatic dizziness at times Failure of outpatient treatment Venous stasis ulcers of both lower extremities hx in 2019 Venous (peripheral) insufficiency Recurrent falls Parkinsonism per medical record - pt unaware Intermittent explosive disorder Delusional disorder, somatic type not currently -- pt unaware -- pt alert and oriented x3 at this time. Alcohol abuse pt states he quit "a long time ago" Chronic diastolic CHF (congestive heart failure) Benign colonic polyp Dyslipidemia History of tobacco use Nephrolithiasis Raynauds phenomenon Stage III chronic kidney disease Tubular adenoma of colon History of CVA (cerebrovascular accident) hx in 2004 and 2019 --> follows with Dr Núñez. Migraines hx Acute on chronic renal insufficiency pt unsure Osteoarthritis Diabetes mellitus, type 2 IDDM Hypertension Hyperlipidemia Myocardial Infarction 2004--follows with Dr. Mejia Surgical History H/O left cataract extraction S/P CABG (coronary artery bypass graft) 4 [facility] [place] S/P sinus surgery History of lumbar discectomy x2 History of carpal tunnel release of both wrists History of open reduction and internal fixation (ORIF) procedure left ankle--hardware in place History of arthroscopy of left knee History of lithotripsy x2 History of colonoscopy History of tonsillectomy and adenoidectomy Status post uvulopalatopharyngoplasty History of right cataract extraction History of heart artery stent (1998) x1 stent History of cardiac cath x4-5, last 05/19/2019 [facility] NO RECENT STENTS Family History Father , age 74 of an [place] Diabetes Prostate cancer Colorectal cancer Myocardial infarction Brother Prostate cancer Uncle Colorectal cancer Father Myocardial infarction Mother Myocardial infarction Stroke Other Dementia No family history of adverse response to anesthesia Denies family history of Ovarian cancer Breast cancer Social History Smoking Status: Former smoker Tobacco Type: Cigarettes Age Quit Using Tobacco: 71; packs per day: 3; Cigarettes Per Day: 3; Second Hand Exposure: Yes (hx); Do You Dip or Chew Tobacco: No (quit "a long time ago"); Hx Alcohol Use: No (quit "a long time ago") Hx Substance Use: No Preferred Language: Angolan Communication Ability: Effective Communication Ability Comment: Patient with confusion. 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); chemical exposure Feels Safe at Home: Yes Childhood Exposure to Second-Hand Smoke: Yes Diet: regular Dental Care, Regularly: Yes Physical Activity Frequency: Daily Seatbelt Use: always Sunscreen Use: No Assistive Devices: Denture - Upper and Glasses Review of Systems Review of Systems: All systems reviewed & are unremarkable except as noted in Subjective Physical Exam Constitutional: + frail appearing, cooperative and comfo rtable Eyes: normal visual leo by confrontation Neck: normal visual inspection Respiratory: normal respiratory effort Cardiovascular: Absent pedal pulses Skin: Necrotic first and second digits of left foot Neurologic: moves all extremities (Absent epicritic sensation) Psychiatric: Orientation: alert and oriented x 3 Results & Data Vital Signs (Past 12 Hours) Vital Signs Temp Pulse Pulse Resp BP BP Pulse Ox 06/18/23 18:06 37 C 72 24 131/69 100 06/18/23 17:30 100 06/18/23 17:00 36.6 C 70 18 156/72 H 100 06/18/23 12:30 82 46 H 100 06/18/23 12:29 87 06/18/23 12:00 96 H 35 H 100 06/18/23 11:30 78 22 100 06/18/23 11:24 78 32 H 100 06/18/23 11:00 75 26 H 01/01/24 10:56 78 28 H 125/84 06/18/23 10:56 125/84 06/18/23 10:42 36.4 C L 78 32 H 125/84 100 O2 Del Method 06/18/23 18:06 Room Air 06/18/23 17:30 Room Air 06/18/23 17:00 Room Air 06/18/23 12:30 06/18/23 12:29 06/18/23 12:00 06/18/23 11:30 06/18/23 11:24 Room Air 06/18/23 11:00 06/18/23 10:56 06/18/23 10:56 06/18/23 10:42 Room Air Diagnostic Findings : morphine, diazepam, hydromorphone, propoxyphene, trazodone (More) Close Duplex Scan Lower Extremity Artery 06/18/23 Foot X-Ray (Signed) Barber Finnegan - 06/18/[address] (Signed) Barber Finnegan - 06/18/23 Chest X-Ray (Signed) Barber Finnegan - 06/18/23 Chest X-Ray (Signed) Jonny Zambrano - 08/27/[address] (Signed) Rodríguez Pan - 07/12/22 Abdomen/Pelvis CT (Signed) Cristhian Yo - 07/12/22 Chest/Abdomen X-ray (Signed) Suresh Pena - 06/30/[address] (Signed) Rodríguez Pan - 04/12/22 Prostate Ultrasound Rpt Anson Hancock MD Geiger, Scott W., MD - 03/10/22 Prostate MRI (Signed) Jonny Zambrano - 12/27/21 Venous Doppler Study (Signed) Stevan Modi - 11/17/21 Foot X-Ray (Signed) Stevan Modi - 11/07/21 Ankle X-Ray (Signed) Suresh Pena - 11/07/21 Foot MRI (Signed) Barber Finneagn - 11/05/21 Abdomen/Pelvis CT (Signed) Barber Finnegan - 11/05/21 Chest X-Ray (Signed) Stevan Modi - 11/05/21 Brain MRI (Signed) Barber Finnegan - 09/14/21 Wrist X-Ray 09/09/21 X-Ray Rpt [facility] Provider - 09/09/21 Neck CTA (Signed) Jonny Zambrano - 09/05/21 Head CTA (Signed) Jonny Zambrano - 09/05/[address] (Signed) Suresh Pena - 09/01/21 Abdomen/Pelvis CT (Signed) Rodríguez Pan - 09/01/21 Toe X-Ray (Signed) Stevan Modi - 07/26/21 Duplex Scan Lower Extremity Artery (Signed) Jonny Zambrano - 07/22/21 Foot X-Ray (Signed) Cristhian Yo - 07/21/21 Chest X-Ray Rpt [facility] Provider [facility] Provider - 05/11/21 Abdomen/Pelvis CT (Signed) Barber Finnegan - 04/01/21 Venous Doppler Lower Extremity Bilat 02/28/21 [employer] [place] [place] [phone] XRay Report Patient: EMANUEL GRANT Admit Date: 06/18/23 MR#: [id number] Address1: [address] [place] [address] Acct ID:[id number] Address2: Date: 1945 [facility] Zip: [place] [address] Age: 78 Location: ED Sex: M Room/Bed: Att Phy: Diagnosis: FOOT PAIN, UNABLE TO AMBULATE, NECROCTIC TOES Bri Phy: Fox Moran MD Service Date: 06/18/23 Fam Phy: Interpreting Phy: Barber Finnegan MDAdmit Phy: Ordering Phy: Raffy Price DPM, MS cc: ~ XR foot LT min 3V routine CLINICAL HISTORY: foot infection COMPARISON: Left foot radiographs November 07, 2021. Left foot CT performed earlier today. FINDINGS: Distal left tibial and fibular internal fixation is noted. The postoperative appearance is unchanged. Stable postoperative findings following amputation of the distal phalanx of the left second toe. Gas within the distal phalanx of the left fifth toe is noted. There is soft tissue gas. The middle and distal phalanges of the left fifth toe are fused. No acute fractures identified. There is subtle erosion of the distal tuft of the distal phalanx of the left first toe. This appears new since prior radiographs. Subtle cortical irregularity of the distal tuft of the distal phalanx of the left third toe is unchanged. IMPRESSION: 1. Soft tissue gas and intraosseous gas within distal phalanx of left fifth toe suggestive of osteomyelitis. The gas could be due to a gas-forming infectious process or the open wound. 2. Interval subtle erosion of the distal tuft of the distal phalanx of the left first toe. This suggests osteomyelitis. 3. Stable postoperative findings following amputation of the distal phalanx of the left second toe. ACT 112: Negative or not required by law. (2) Osteomyelitis Laterality: left Osteomyelitis location: foot Osteomyelitis type: unspecified type Qualified Code(s): M86.9 - Osteomyelitis, unspecified (4) Sepsis Sepsis acute organ dysfunction status: without acute organ dysfunction Sepsis type: sepsis due to unspecified organism Qualified Code(s): A41.9 - Sepsis, unspecified organism
[2023-06-18] MEDS: CLINDAMYCIN/D5W 900 MG/50 ML BAG IV SCH (21:04)
[2023-06-18] MEDS ORDERED: HEPARIN SOD 5,000 UNIT/0.5 ML VIAL SQ SCH (22:00)
[2023-06-18 22:48] LABS: Appearance Urine Cloudy (Clear); Bacteria Urine Automated Negative (Negative); Bilirubin Urine Negative (Negative); Blood Urine Negative (Negative); Color Urine Yellow; Epithelial Cell Urine Auto 20-30 /lpf (0-5); Glucose Urine UA Negative (Negative); Ketones Urine 1+ (Negative); Leukocyte Esterase Urine 2+ (Negative); Nitrite Urine Negative (Negative); Protein Urine Negative (Negative); RBC Urine Automated 0-4 /hpf (0-4); Specific Gravity Urine 1.023 (1.000-1.030); Urobilinogen Urine Negative (Negative); pH Urine 5.5 (4.5-7.5)
--- NOTE | 2023-06-18 23:09 | Ultrasound Report ---
Exam(s): US ARTERIAL LEFT LOWER EXTREMITY EXAM: US Duplex Left Lower Extremity Arteries CLINICAL HISTORY: Reason for exam: foot wound. TECHNIQUE: Real-time duplex ultrasound scan of the left lower extremity arteries integrating B-mode two-dimensional vascular structure, Doppler spectral analysis and color flow Doppler imaging. COMPARISON: No relevant prior studies available. FINDINGS: Left common femoral artery: Atherosclerosis. No flow visualized. Left superficial femoral artery: Atherosclerosis. No flow visualized. Left deep femoral artery. Atherosclerosis. Patent. Monophasic waveform. Peak systolic velocity 51 cm/s. Irregular waveforms. Left popliteal artery: Atherosclerosis. Diminished monophasic flow in the proximal segment. No flow in the mid and distal segments. Left calf/foot arteries: Atherosclerosis. No flow visualized in the posterior tibial artery, peroneal artery, or anterior tibial artery. Dorsalis pedis artery obscured by patient movement. Soft tissues: Unremarkable. IMPRESSION: 1. Severe atherosclerotic vascular disease. 2. 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 3. Flow present in the deep femoral artery, monophasic. 4. Majority occlusion of the popliteal artery, with minimal monophasic flow in the proximal segment. 5. Occluded calf arteries. 6. Dorsalis pedis artery not evaluated due to patient motion. 7. Irregular waveforms suggesting underlying cardiac arrhythmia. Communications: Verify Receipt Verify Receipt with Nurse Electronically signed by: Crow Pack M.D. 06/18/23 23:08 PM
[2023-06-19] MEDS: PIPERACILLIN/TAZOBACTAM 4.5 GM in DEXTROSE 5% MINI-B 100 ML IV SCH ×3 (02:01→20:01)
[2023-06-19] MEDS: CLINDAMYCIN/D5W 900 MG/50 ML BAG IV SCH ×3 (05:45→21:57)
[2023-06-19 06:00] LABS: Hematocrit (blood only) 40.1 % (42.0-52.0); Hemoglobin 13.8 g/dl (14.0-18.0); Mean Corpuscular Hemoglobin 31.5 pg (25.0-34.0); Mean Corpuscular Hgb Conc 34.4 g/dL (32.0-36.0); Mean Corpuscular Volume 91.6 fL (80.0-100.0); Mean Platelet Volume 10.2 fL (9.4-12.4); Platelet Count 190 K/uL (130-400); RDW Coefficient of Variation 12.7 % (11.5-14.5); RDW Standard Deviation 42.8 fL (36.4-46.3); Red Blood Count 4.38 M/uL (4.70-6.10); White Blood Count 5.65 K/ul (4.8-10.8)
[2023-06-19 06:17] LABS: BUN Creatinine Ratio 14.2 (10-20); Calcium 7.6 mg/dl (8.6-10.3); Creatinine Clr Calc Pharmacy 51.6 ml/min; Est GFR (African American) 67.2 ml/min; Magnesium 1.8 mg/dl (1.7-2.4); Potassium 3.6 mmol/L (3.5-5.1)
[2023-06-19] MEDS: INSULIN ASPART PER UNIT CHARGE SC SCH ×4 (07:36→21:45)
[2023-06-19] MEDS: SUCRALFATE 1 GM/10 ML UDC PO SCH ×4 (07:36→21:45)
[2023-06-19] MEDS ORDERED: OPTIRAY 320 125ml IV ONE (10:49)
[2023-06-19] MEDS ORDERED: MoRPHine SULFATE 2 MG/ML CARP IV PRN (12:46)
--- NOTE | 2023-06-19 13:05 | Hospitalist Progress Note ---
Date of Service June 19, 2023 Assessment & Plan (1) Sepsis: Plan: Patient presented with tachypnea elevated lactic acid rigors Patient received IV fluids Blood cultures and wound cultures pending Started on IV antibiotics: Daptomycin, clindamycin, Zosyn Source seems to be the left foot gangrene/osteomyelitis Podiatry involved, planning on surgery soon Vascular surgery involved, awaiting recommendations (2) Duodenal ulcer: Plan: Diagnosed in August persistent issue with this patient with profound outpatient weight loss. Patient stopped taking all medications bothered by daily abdominal pain. Was seen by GI in August 2022 and the risks were discussed of untreated gastric ulcer and esophagitis. However he declined initiating proton pump inhibitor. This is acute on chronic will use Carafate and have Pepcid IV twice daily (3) Controlled type 2 diabetes mellitus with neurologic complication, with long- term current use of insulin: Plan: Due to duodenal ulcer and abdominal pain patient is lost a significant amount of weight over the last 1 year and has now been off all diabetic medications with last hemoglobin A1c of 5.6 in November 2022. Will check q. ACHS glucose checks and have loose sliding scale if needed A1c ordered Per nurse, patient has been declining insulin (4) Unintentional weight loss of 10% body weight within 6 months: Plan: Due to abdominal pain from duodenal ulcers. Patient has not been taking medications at home. Plan CODE STATUS: DNR/DNI DVT prophylaxis: Heparin subcu held due to anticipated surgery Admission and Anticipated Discharge Date Admission Date: June 18, 2023 Subjective Patient spoke to the surgeon yesterday. Waiting for the next step. Patient says that he stopped taking all his medications back in November 2022. He says that he is not going back to taking insulin as he is no more diabetic. He has not been eating well and has lost significant amount of weight. He says that it hurts to eat. He tells me that he was diagnosed with a stomach ulcer a long time ago. He has a PCP but has not seen his PCP for at least 6 months. When asked why he stopped seeing his PCP and stopped taking medications, he replied "too much of attention can kill". Review of Systems Review of Systems: All systems reviewed & are unremarkable except as noted in Subjective Physical Exam Physical Exam: General: Awake, conversant Heart: S1, S2/regular rate and rhythm, no murmur rubs or gallops Lungs: Clear to auscultation bilaterally. Normal effort Abdomen: Soft/nontender/nondistended. No hepatosplenomegaly Extremities: Gangrene of the left first and fifth toes. Cellulitis noted of the left foot Behavior: Appropriate, cooperative Results & Data Results & Data Vital Signs (Past 12 Hours) Vital Signs Temp Pulse Pulse Resp BP Pulse Ox O2 Del Method 06/19/23 11:10 36.4 C L 60 18 110/60 97 Room Air 06/19/23 08:40 37.0 C 60 20 106/62 97 Room Air 06/19/23 08:00 68 06/19/23 08:00 Room Air Laboratory Results Abnormal lab results 06/18/23 06/18/23 06/18/23 Range/Units 11:06 12:24 14:15 RBC (4.70-6.10) M/uL Hgb (14.0-18.0) g/dl Hct (42.0-52.0) % PT 12.4 H (9.0-12.0) Seconds APTT 32 H (21-31) Seconds Chloride (98-107) mmol/L Carbon Dioxide 17 L (21-32) mmol/L Anion Gap 19 H (3-11) Glucose 172 H (70-99(Fasting)) mg/dl POC Glucose (70-99) mg/dl Lactate 5.2 H* 4.4 H* (0.4-2.0) mmol/L Calcium (8.6-10.3) mg/dl Total Bilirubin 1.9 H (0.2-1.0) mg/dl Direct Bilirubin 0.3 H (0-0.2) mg/dl Alkaline Phosphatase 131 H (34-104) U/L Urine Appearance (Clear) Urine Ketones (Negative) Ur Leukocyte Esterase (Negative) Urine WBC (Auto) (0-5) /hpf U Epithel Cells (Auto) (0-5) /lpf 06/18/23 06/18/23 06/18/23 Range/Units 17:34 20:41 22:27 RBC (4.70-6.10) M/uL Hgb (14.0-18.0) g/dl Hct (42.0-52.0) % PT (9.0-12.0) Seconds APTT (21-31) Seconds Chloride (98-107) mmol/L Carbon Dioxide (21-32) mmol/L Anion Gap (3-11) Glucose (70-99(Fasting)) mg/dl POC Glucose 127 H 135 H (70-99) mg/dl Lactate (0.4-2.0) mmol/L Calcium (8.6-10.3) mg/dl Total Bilirubin (0.2-1.0) mg/dl Direct Bilirubin (0-0.2) mg/dl Alkaline Phosphatase (34-104) U/L Urine Appearance Cloudy A (Clear) Urine Ketones 1+ H (Negative) Ur Leukocyte Esterase 2+ H (Negative) Urine WBC (Auto) 10-30 H (0-5) /hpf U Epithel Cells (Auto) 20-30 H (0-5) /lpf 06/19/23 Range/Units 05:39 RBC 4.38 L (4.70-6.10) M/uL Hgb 13.8 L (14.0-18.0) g/dl Hct 40.1 L (42.0-52.0) % PT (9.0-12.0) Seconds APTT (21-31) Seconds Chloride 114 H (98-107) mmol/L Carbon Dioxide 18 L (21-32) mmol/L Anion Gap (3-11) Glucose 146 H (70-99(Fasting)) mg/dl POC Glucose (70-99) mg/dl Lactate (0.4-2.0) mmol/L Calcium 7.6 L D (8.6-10.3) mg/dl Total Bilirubin (0.2-1.0) mg/dl Direct Bilirubin (0-0.2) mg/dl Alkaline Phosphatase (34-104) U/L Urine Appearance (Clear) Urine Ketones (Negative) Ur Leukocyte Esterase (Negative) Urine WBC (Auto) (0-5) /hpf U Epithel Cells (Auto) (0-5) /lpf Diagnostic Findings Foot CT 06/18/23 11:[address] WITHOUT CONTRAST CLINICAL HISTORY: poss osteo COMPARISON STUDY: Left foot radiographs October 18, 2021. MRI of the left foot November 05, 2021. TECHNIQUE: Axial images of the left foot were obtained without IV contrast. Sagittal and coronal reconstructions were viewed. Automated exposure control was utilized for the study. A dose lowering technique was utilized adhering to the principles of ALARA. FINDINGS: There are stable postoperative findings following distal left tibial and fibular internal fixation. The hardware is intact. There is moderate left ankle osteoarthritis. No acute fractures are present. No foci of bony destruction within the left hindfoot or midfoot are present. There is soft tissue gas within the left fifth toe. In addition, there is soft tissue gas throughout the distal phalanx of the left fifth toe. The gas does not extend more proximally. There is gas along the undersurface of the nail of the left first toe. No gas within the distal phalanx of the left first toe is present. Apparent subtle erosion of the distal tuft of the distal phalanx of the left first toe is noted. This may be chronic. There is moderate vascular calcification. The distal phalanx of the left second toe has been amputated. Expected postoperative findings are present. Tarsometatarsal joints appear intact. IMPRESSION: 1. Soft tissue gas within the left fifth toe and intraosseous gas within the distal phalanx of the left fifth toe highly suggestive of osteomyelitis. This gas could be due to a gas-forming infectious process or related to an open wound. 2. Soft tissue gas within the left first toe. This may be related to the toenail. However, an infectious process cannot be excluded. Equivocal erosion of the distal tuft of the distal phalanx of the left first toe. This is probably chronic however additional focus of acute osteomyelitis cannot be excluded. 3. Stable postoperative findings following distal left tibial and fibular internal fixation. ACT 112: Negative or not required by law. Electronically signed by: Barber Finnegan M.D. 06/18/2023 1:52 PM Foot X-Ray 06/18/23 15:57 XR foot LT min 3V routine CLINICAL HISTORY: foot infection COMPARISON: Left foot radiographs November 07, 2021. Left foot CT performed earlier today. FINDINGS: Distal left tibial and fibular internal fixation is noted. The postoperative appearance is unchanged. Stable postoperative findings following amputation of the distal phalanx of the left se[place] toe. Gas within the distal phalanx of the left fifth toe is noted. There is soft tissue gas. The middle and distal phalanges of the left fifth toe are fused. No acute fractures identified. There is subtle erosion of the distal tuft of the distal phalanx of the left first toe. This appears new since prior radiographs. Subtle cortical irregularity of the distal tuft of the distal phalanx of the left third toe is unchanged. IMPRESSION: 1. Soft tissue gas and intraosseous gas within distal phalanx of left fifth toe suggestive of osteomyelitis. The gas could be due to a gas-forming infectious process or the open wound. 2. Interval subtle erosion of the distal tuft of the distal phalanx of the left first toe. This suggests osteomyelitis. 3. Stable postoperative findings following amputation of the distal phalanx of the left second toe. ACT 112: Negative or not required by law. Electronically signed by: Barber Finnegan M.D. 06/18/2023 4:50 PM Duplex Scan Lower Extremity Artery 06/18/23 16:36 CR Exam(s): US ARTERIAL LEFT LOWER EXTREMITY EXAM: US Duplex Left Lower Extremity Arteries CLINICAL HISTORY: Reason for exam: foot wound. TECHNIQUE: Real-time duplex ultrasound scan of the left lower extremity arteries integrating B-mode two-dimensional vascular structure, Doppler spectral analysis and color flow Doppler imaging. COMPARISON: No relevant prior studies available. FINDINGS: Left common femoral artery: Atherosclerosis. No flow visualized. Left superficial femoral artery: Atherosclerosis. No flow visualized. Left deep femoral artery. Atherosclerosis. Patent. Monophasic waveform. Peak systolic velocity 51 cm/s. Irregular waveforms. Left popliteal artery: Atherosclerosis. Diminished monophasic flow in the proximal segment. No flow in the mid and distal segments. Left calf/foot arteries: Atherosclerosis. No flow visualized in the posterior tibial artery, peroneal artery, or anterior tibial artery. Dorsalis pedis artery obscured by patient movement. Soft tissues: Unremarkable. IMPRESSION: 1. Severe atherosclerotic vascular disease. 2. 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 3. Flow present in the deep femoral artery, monophasic. 4. Majority occlusion of the popliteal artery, with minimal monophasic flow in the proximal segment. 5. Occluded calf arteries. 6. Dorsalis pedis artery not evaluated due to patient motion. 7. Irregular waveforms suggesting underlying cardiac arrhythmia. Communications: Verify Receipt Verify Receipt with Nurse Electronically signed by: Crow Pack M.D. 06/18/23 23:08 PM PG Care Time/CCT Total # of Minutes Spent Total Time Spent with Patient: Total time spent is greater than 50% in coordination of care (as documented) at patient's floor/unit and/or counseling patient: Coding Level of Care Code 49200 SUB INP/OBS CARE MIN Diagnoses Sepsis A41.9 Sepsis acute organ dysfunction status: without acute organ dysfunction Sepsis type: sepsis due to unspecified organism Duodenal ulcer K26.9 Controlled type 2 diabetes mellitus with neurologic complication, with long-term current use of insulin E11.49; Z79.4 Unintentional weight loss of 10% body weight within 6 months R63.4 (1) Sepsis Sepsis acute organ dysfunction status: without acute organ dysfunction Sepsis type: sepsis due to unspecified organism Qualified Code(s): A41.9 - Sepsis, unspecified organism
--- NOTE | 2023-06-19 13:20 | CT Scan Report ---
CT ang AA carlos w radha sally price HISTORY: 78 years-old Male gangrene toes left foot COMPARISON: Arterial Doppler 06/18/2023, CT abdomen and pelvis 07/12/2022. TECHNIQUE: CTA abdomen and pelvis with lower extremity runoff was obtained following the intravenous administration of 114 mL Optiray 320. All measurements were obtained according to NASCET criteria. 3- D coronal and sagittal MIPS were obtained. A dose lowering technique was used consistent with the chen ncipals of CLARENCE. FINDINGS: CTA: Mild cardiomegaly with extensive coronary artery calcifications. Sternotomy wires are present. Modera te atherosclerosis with patency of the celiac trunk, superior and inferior mesenteric arteries. Irreg ular atherosclerotic plaque of the left renal artery results in multifocal proximal stenosis measurin g up to 50%. The right renal artery is widely patent. RIGHT LOWER EXTREMITY: Patent common, and external iliac arteries. The common and superficial femoral arteries are patent. M ild stenosis of the distal SFA. The popliteal artery is patent. There is high-grade stenosis of the t ibioperoneal trunk with occlusion involving the majority of the anterior and posterior tibial arterie s. Multifocal high-grade stenoses of the peroneal artery. LEFT LOWER EXTREMITY: Patent common and external iliac arteries. There is complete occlusion at the origin of the superfici al femoral artery without reconstitution of flow. Additionally, there is occlusion of the popliteal a rtery, tibioperoneal trunk, anterior and posterior tibial arteries. There is reconstitution of flow w ithin the distal peroneal artery demonstrating multifocal areas of zebzoktk-yq-kdvx-grade stenoses. A dditionally, there is minimal distal reconstitution of flow within the posterior tibial artery at the level of the ankle. CT ABDOMEN/PELVIS: Clear lung bases. No free air. Calcified granulomata of the spleen, vfeq-vr-cakvskng pancreatic atrop hy. Unremarkable adrenal glands. Mildly distended gallbladder. Unremarkable liver. Cortical thinning of the kidneys. A 3 mm nonobstructing calculus of the interpolar left kidney. A 5 mm nonobstructing c alculus of the inferior pole right kidney. No enhancing renal mass lesion is identified. No ureteral calculi or hydronephrosis. Decompressed bladder with mild wall thickening. Prostatomegaly. No lymphad enopathy. Scrotal wall edema with probable hydroceles. Subcentimeter paraesophageal lymph nodes. Mild distal e sophageal wall thickening with adjacent inflammatory stranding. Moderate fecal retention with rectal wall thickening and perirectal stranding. Colonic diverticulosis. Noninflamed appendix. Unremarkable soft tissues. No acute fracture. IMPRESSION: 1. Atherosclerosis with complete occlusion of the left common femoral, superficial femoral, and popli teal arteries with additional left lower leg occlusion. There is reconstitution of flow within the le ft peroneal and distal posterior tibial arteries as above. 2. High-grade stenosis of the right tibioperoneal trunk with occlusion involving the majority of the right anterior and posterior tibial arteries. 3. Multifocal high-grade stenoses of the right peroneal artery. 4. Patent mesenteric arteries. 5. No acute intra-abdominal or intrapelvic abnormality. 6. Nonobstructing bilateral nephrolithiasis. 7. 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 8. Additional findings as above. ACT 112: Negative or not required by law. The above report was generated using voice recognition software. It may contain grammatical, syntax o r spelling errors. Dictated: 06/19/2023 12:41 PM Transcribed: 06/19/2023 12:59 PM Isak [id number] [email or web address] Electronically signed by: Rodríguez Pan M.D. 06/19/2023 1:19 PM
[2023-06-19] MEDS: DAPTOmycin 425 MG in SYRINGE 0 ML IV SCH (14:06)
[2023-06-19] MEDS ORDERED: ePHEDrine sulfate 50 MG/ML AMP IV PRN (15:33)
[2023-06-19] MEDS ORDERED: ONDANSETRON INJ 2 MG/ML 2 ML VIAL IV PRN (15:33)
[2023-06-19] MEDS ORDERED: ATROPINE SULFATE 0.1 MG/ML 10ML SYR IV PRN (15:33)
[2023-06-19] MEDS ORDERED: fentaNYL citrate PF 100 MCG/2 ML VIAL IV PRN (15:33)
--- NOTE | 2023-06-19 15:33 | Anesthesiology Consultation ---
Date of Service June 19, 2023 Assessment & Plan (1) Encounter for pre-operative examination: Chart Review Chart Review: Acceptable Risk for Surgery and Patient NOT seen in Pre Admission Testing Consults Requested none History Surgery Operation Date: 06/19/23 08:50 Proposed Procedures p Left 1st and 2nd Toe Amputation - Raffy Price, DPM, MS Height/Weight Height: 5 ft 9 in Weight: 72.5 kg Allergies Allergy/AdvReac Type Severity Reaction Status Date / Time morphine AdvReac Severe "STOPS MY Verified 06/18/23 15:02 HEART" diazepam AdvReac Intermediate HALLUCINATE Verified 06/18/23 15:02 S hydromorphone [From Dilaudid] AdvReac Intermediate unresponsiv Verified 06/18/23 15:02 eness propoxyphene AdvReac Intermediate DRUG Verified 06/18/23 15:02 INTOLERANCE trazodone AdvReac Intermediate GI UPSET Verified 06/18/23 15:02 Medications Home Medications Medication Instructions Recorded Confirmed Last Taken acetaminophen 500 mg tablet 1,000 mg PO Q8H PRN Pain 06/05/19 06/18/23 11/03/20 (Tylenol Extra Strength) nitroglycerin 0.4 mg sublingual 0.4 mg sublingual UD PRN Chest Pain 11/04/20 06/18/23 Unknown tablet (Nitrostat) pen needle, diabetic 31 gauge x #400 ea 07/11/21 11/28/22 Unknown 3/16" (BD Ultra-Fine Mini Pen Needle) cyanocobalamin (vitamin B-12) 1,000 mcg PO QAM 08/10/21 06/18/23 06/29/22 1,000 mcg tablet (Vitamin B-12) blood sugar diagnostic (OneTouch #100 ea 08/26/21 11/28/22 Unknown Ultra Test strips) tzsefcuy-vr-jsimk 300 mcg-K 60 1 tab PO DAILY 09/01/21 06/18/23 06/29/22 mcg-lycop 600 mcg-lutein 300 mcg tablet (Centrum Silver Men) Super Beta Prostate 1 tab PO QAM 09/05/21 06/18/23 06/29/22 insulin glargine 100 unit/mL (3 15 unit subcut QPM 10/12/21 06/18/23 06/29/22 mL) subcutaneous pen (Lantus Solostar U-100 Insulin) insulin lispro 100 unit/mL 5 - 7 unit subcut TID 10/12/21 06/18/23 06/29/22 subcutaneous pen (Humalog KwikPen (U-100) Insulin) clopidogrel 75 mg tablet 75 mg PO DAILY #90 tabs 12/09/21 06/18/23 06/29/22 tamsulosin 0.4 mg capsule 0.4 mg PO DAILY #90 caps 12/09/21 06/18/23 06/29/22 atorvastatin 40 mg tablet (Lipitor) 40 mg PO QAM 04/12/22 06/18/23 06/29/22 pantoprazole 40 mg tablet,delayed 40 mg PO DAILY #30 tabs 09/26/22 06/18/23 Unknown release Active Medications Generic Name Dose Route Start Last Admin Trade Name Freq PRN Reason Stop Dose Admin Clindamycin Phosphate 900 mg in 50 mls @ 100 mls/hr 06/18/23 22:00 06/19/23 15:22 Cleocin/D5w IV 06/20/23 21:59 Infused Q8H NIKOLAI Infusion Daptomycin 425 mg/ Syringe 8.5 mls @ 4.25 mls/min 06/19/23 14:00 06/19/23 14:06 IV 07/31/23 13:59 4.25 mls/min Q24H NIKOLAI Administration Protocol Piperacillin Sod/Tazobactam 100 mls @ 25 mls/hr 06/18/23 18:00 06/19/23 14:11 Sod 4.5 gm/ Dextrose IV 07/30/23 17:59 Infused Q8H NIKOLAI Infusion Protocol Insulin Aspart 0 units 06/18/23 17:29 06/19/23 12:17 Insulin Aspart Per Unit Charge SC 07/18/23 17:28 Not Given ACHS NIKOLAI Sucralfate 1 gm 06/18/23 17:29 06/19/23 12:26 Sucralfate 1 Gm/10 Ml Udc PO 07/18/23 17:28 1 gm ACHS NIKOLAI Administration Past Medical History Medical History Poor historian GERD (gastroesophageal reflux disease) On anticoagulant therapy Kidney stones hx History of COVID-06 May 2022 at a [facility] in [place], [facility]. Peripheral neuropathy Prostate cancer pt did not acknowledge. Sepsis hx Schizoaffective disorder pt denies JUANCARLOS (acute kidney injury) BPH (benign prostatic hyperplasia) Amputated toe of left foot Cellulitis Osteomyelitis hx Diabetic ulcer of toe hx History of diverticulosis Mild cognitive impairment alert and oriented x3 -- "forgetful about his history" Stroke HX X 2-11/2004 AND 09/2019-F/U DR NÚÑEZ Orthostatic dizziness at times Failure of outpatient treatment Venous stasis ulcers of both lower extremities hx in 2019 Venous (peripheral) insufficiency Recurrent falls Parkinsonism per medical record - pt unaware Intermittent explosive disorder Delusional disorder, somatic type not currently -- pt unaware -- pt alert and oriented x3 at this time. Alcohol abuse pt states he quit "a long time ago" Chronic diastolic CHF (congestive heart failure) Benign colonic polyp Dyslipidemia History of tobacco use Nephrolithiasis Raynauds phenomenon Stage III chronic kidney disease Tubular adenoma of colon History of CVA (cerebrovascular accident) hx in 2004 and 2019 --> follows with Dr Núñez. Migraines hx Acute on chronic renal insufficiency pt unsure Osteoarthritis Diabetes mellitus, type 2 IDDM Hypertension Hyperlipidemia Myocardial Infarction 2004--follows with Dr. Mejia Past Family History Family History Father , age 74 of an [place] Diabetes Prostate cancer Colorectal cancer Myocardial infarction Brother Prostate cancer Uncle Colorectal cancer Father Myocardial infarction Mother Myocardial infarction Stroke Other Dementia No family history of adverse response to anesthesia Denies family history of Ovarian cancer Breast cancer Past Surgical History Surgical History H/O left cataract extraction S/P CABG (coronary artery bypass graft) [place] [facility] [place]P sinus surgery History of lumbar discectomy x2 History of carpal tunnel release of both wrists History of open reduction and internal fixation (ORIF) procedure left ankle--hardware in place History of arthroscopy of left knee History of lithotripsy x2 History of colonoscopy History of tonsillectomy and adenoidectomy Status post uvulopalatopharyngoplasty History of right cataract extraction History of heart artery stent (1998) x1 stent History of cardiac cath x4-5, last 05/19/2019 [facility] NO RECENT STENTS Social History Smoking Status: Former smoker tobacco type: cigarettes Smoking cigarettes per day: 3 Do You Dip or Chew Tobacco: No (quit "a long time ago") Hx Alcohol Use: No Alcohol type: beer alcohol intake frequency: other Hx Substance Use: No substance use type: does not use Physical Exam Vital Signs Last Vital Signs Temp 97.5 F L 06/19/23 11:10 Pulse 60 06/19/23 11:10 Resp 18 06/19/23 11:10 BP 110/60 06/19/23 11:10 Pulse Ox 97 06/19/23 11:10 O2 Del Method Room Air 06/19/23 11:10 Testing Laboratory Results 06/19/23 05:39 06/19/23 05:39 PT 12.4 Seconds (9.0-12.0) H 06/18/23 14:15 INR 1.1 (0.9-1.1) 06/18/23 14:15 APTT 32 Seconds (21-31) H 06/18/23 14:15 Urine Color Yellow 06/18/23 22:27 Urine Appearance Cloudy (Clear) A 06/18/23 22:27 Urine pH 5.5 (4.5-7.5) 06/18/23 22:27 Ur Specific [place] 1.023 (1.000-1.030) 06/18/23 22:27 Urine Protein Negative (Negative) 06/18/23 22:27 Urine Glucose (UA) Negative (Negative) 06/18/23 22:27 Urine Ketones 1+ (Negative) H 06/18/23 22:27 Urine Nitrite Negative (Negative) 06/18/23 22:27 Ur Leukocyte Esterase 2+ (Negative) H 06/18/23 22:27 Urine WBC (Auto) 10-30 /hpf (0-5) H 06/18/23 22:27 Urine RBC (Auto) 0-4 /hpf (0-4) 06/18/23 22:27 U Hyaline Cast (Auto) 1-5 /lpf (0-5) 06/18/23 22:27 U Epithel Cells (Auto) 20-30 /lpf (0-5) H 06/18/23 22:27 Urine Bacteria (Auto) Negative (Negative) 06/18/23 22:27 06/18/23 12:24 Aerobic Blood Culture - Preliminary Blood No growth in Aerobic bottle after 24 hours. 06/18/23 11:46 Aerobic Blood Culture - Preliminary Blood No growth in Aerobic bottle after 24 hours. Anaerobic Blood Culture - Preliminary No growth in Anaerobic bottle after 24 hours. Electrocardiogram Date: 06/18/23 Findings: + NSR @ and + RBBB Sinus rhythm with Premature atrial complexes in a pattern of bigeminy Incomplete right bundle branch block Old Inferior infarct Poor R wave progression, consider anterior OK vs. lead placement vs. LVH Abnormal ECG
[2023-06-19] MEDS ORDERED: BUPIVACAINE 0.5 % 5 MG/1 ML MPF 30ML VIAL ONE (16:13)
--- NOTE | 2023-06-19 16:39 | History & Physical Bridge Note ---
Date of Service June 19, 2023 History & Physical Bridge Note I have examined the patient, reviewed the History & Physical and in the interval since the performance of the History & Physical I have noted the following changes of clinical significance: no changes noted
[2023-06-19] MEDS ORDERED: PROPOFOL IV EMULSION 10 MG/ML 20 ML VIAL IV ONE (17:32)
[2023-06-19] MEDS ORDERED: LIDOCAINE 2% 2 ML VIAL/AMP(20MG/ML) INFIL ONE (17:32)
[2023-06-19] MEDS ORDERED: MIDAZOLAM HCL 1 MG/ML 2ML VIAL ONE (17:33)
[2023-06-19] MEDS ORDERED: fentaNYL citrate PF 100 MCG/2 ML VIAL ONE ×2 (17:33→18:28)
[2023-06-19] MEDS ORDERED: ONDANSETRON INJ 2 MG/ML 2 ML VIAL ONE (18:15)
--- NOTE | 2023-06-19 19:01 | Post Operative Brief Note ---
Immediate Post Op Note v1 Date of Surgery June 19, 2023 Pre & Post Diagnosis Operation Date: 06/19/23 08:50 Pre-Op Diagnosis: Gangrene, left foot Osteomyelitis Post-Op Diagnosis: Gangrene, left foot Osteomyelitis I identified the patient and participated in the time-out.: Yes Procedure Operation Date: 06/19/23 08:50 Actual Procedures p Left 1st and 5th Toe Amputations(Left) - Raffy Price DPM, MS Surgeon Raffy Price DPM, MS Maintenance Instructor none Estimated Blood Loss 5 Findings Consistent with Post-Op Diagnosis consistent with pre operative diagnosis Specimens Great toe left foot - micro/path Fifth toe left foot - micro/path
[2023-06-19] MEDS ORDERED: ePHEDrine sulfate 50 MG/5 ML SYR ONE (19:07)
[2023-06-19] MEDS ORDERED: PHENYLEPHRINE HCL 10 MG/ML VIAL ONE (19:07)
[2023-06-19] MEDS ORDERED: PHENYLEPHRINE 100MCG/ML 10ML SYR IV ONE (19:07)
--- NOTE | 2023-06-19 19:26 | Anesthesiology Progress Note ---
Date of Service June 19, 2023 Anesthesia Post Procedure Vital Signs Vital Signs: Temp Pulse Pulse Resp BP Pulse Ox O2 Del Method 06/19/23 19:20 75 17 96/64 L 99 Oxymask 06/19/23 19:10 74 20 110/66 100 Oxymask 06/19/23 19:02 97.5 F L 72 18 102/54 L 100 Oxymask 06/19/23 16:05 98.1 F 67 19 124/68 100 Room Air 06/19/23 15:47 65 06/19/23 11:10 97.5 F L 60 18 110/60 97 Room Air 06/19/23 08:40 98.6 F 60 20 106/62 97 Room Air 06/19/23 08:00 68 06/19/23 08:00 Room Air 06/19/23 00:00 97.5 F L 88 20 127/73 98 Room Air 06/18/23 20:47 97.9 F 69 20 132/71 99 Room Air O2 Flow Rate 06/19/23 19:20 5 06/19/23 19:10 5 06/19/23 19:02 5 06/19/23 16:05 06/19/23 15:47 06/19/23 11:10 06/19/23 08:40 06/19/23 08:00 06/19/23 08:00 06/19/23 00:00 06/18/23 20:47 Pain Intensity Left Foot: Pain Intensity: 3 Transfer of Care Handoff Completed per policy Notes Mental Status: alert / awake / arousable and participated in evaluation Patient Amnestic to Procedure: Yes Nausea / Vomiting: adequately controlled Pain: adequately controlled Airway Patency, RR, SpO2: stable & adequate BP & HR: stable & adequate Hydration State: stable & adequate Anesthetic Complications: no major complications apparent and Pt Satisfied with anesthetic care
--- NOTE | 2023-06-19 21:22 | Operative Report ---
Post Operative Report Pre & Post Diagnosis Operation Date: 06/19/23 08:50 Pre-Op Diagnosis: Gangrene, left foot Osteomyelitis Post-Op Diagnosis: Gangrene, left foot Osteomyelitis I identified the patient and participated in the time-out.: Yes Procedure Operation Date: 06/19/23 08:50 Actual Procedures p Left 1st and 5th Toe Amputations(Left) - Raffy Price DPM, MS Surgeon Raffy Price DPM, MS Thread Marker none Estimated Blood Loss 5 Findings Consistent with Post-Op Diagnosis Consistent with pre operative findings Specimens 1.) Left hallux - micro / path 2.) Left fifth toe - micro / path Description of Procedure History of present illness: Patient is a 78 year old male who is seen for treatment of necrotic Left fifth and first toes. X-rays read as gas gangrene. Patient relates minimal discomfort. All questions answered. Discussed procedure in detail and postoperative recovery. All potential risks, benefits, complications, alternatives, rehab, potential for incomplete relief of symptoms, need for further surgery, DVT, PE, , persistent pain, swelling, scarring, weakness, neurovascular, wound complications, and potential for amputations were discussed with patient. Unwanted outcomes such as, but not limited to were reviewed including under correction, overcorrection, return of deformity, infection. All questions were answered. Patient has decided to proceed with procedure as indicated. Preoperative diagnosis: 1.) Gas gangrene left hallux with osteomyelitis 2.) Necrotic gas gangrene fifth toe with osteomyelitis Postoperative diagnosis: same Name of operation: 1.) Amputation Left great toe 2.) Amputation Left fifth toe Surgeon Dr. Price Thread Marker: None Anesthesia: local with monitored anesthesia care Hemostasis: None Estimated blood loss: 5 ml Procedure in detail: Under mild sedation the patient was brought in the operating room placed on the operating table in supine position. Following IV sedation the foot was then prepped scrubbed and draped in usual aseptic manner. Attention was then directed to the gangrenous great toe of the left foot.A fishmouth incision was created utilizing a sharp, sterile, #15 blade.The incision which was deepened through subcutaneous tissue using sharp blunt dissection. Care was taken to identify and retract all vital neurovascular structures. All bleeders were ligated and cauterized necessary. At this time the left hallux was removed at the metatarsal phalangeal joint. The left hallux was then sent to microbiology and pathology. Copious amounts of sterile normal saline were utilized to flush the incision site. Next attention was directed to the gangrenous fifth toe of the left foot.A fishmouth incision was created utilizing a sharp, sterile, #15 blade.The incision which was deepened through subcutaneous tissue using sharp blunt dissection. Care was taken to identify and retract all vital neurovascular structures. All bleeders were ligated and cauterized necessary. At this time the left fifth toe was removed at the metatarsal phalangeal joint.The left hallux was then sent to microbiology and pathology.Copious amounts of sterile normal saline were utilized to flush the incision site. Each skin incision was then primarily closed utilizing 3-0 nylon in horizontal suture mattress technique. Upon completion of the procedure the incisions were dressed with Betadine soaked Adaptic followed by sterile compressive dressing consisting of 4 x 4's Nancy Kerlix ABD. A post operative shoe was then applied. The Patient tolerated the procedure and anesthesia well. He was transferred to recovery room vital signs stable and vascular status intact to the left foot following.Patient re-admitted to the floor resuming all pre-operative orders. I attest to the content of the Intraoperative Record and any orders documented therein. Any exceptions are noted below.
[2023-06-20] MEDS: PIPERACILLIN/TAZOBACTAM 4.5 GM in DEXTROSE 5% MINI-B 100 ML IV SCH ×3 (01:56→17:10)
[2023-06-20] MEDS: ACETAMINOPHEN 325 MG TAB PO PRN ×2 (01:58→17:10)
[2023-06-20] MEDS: CLINDAMYCIN/D5W 900 MG/50 ML BAG IV SCH ×2 (05:44→14:35)
[2023-06-20 06:24] LABS: Hematocrit (blood only) 40.1 % (42.0-52.0); Hemoglobin 14.4 g/dl (14.0-18.0); Mean Corpuscular Hemoglobin 31.5 pg (25.0-34.0); Mean Corpuscular Hgb Conc 35.9 g/dL (32.0-36.0); Mean Corpuscular Volume 87.7 fL (80.0-100.0); Mean Platelet Volume 10.5 fL (9.4-12.4); Platelet Count 198 K/uL (130-400); RDW Coefficient of Variation 12.8 % (11.5-14.5); Red Blood Count 4.57 M/uL (4.70-6.10); White Blood Count 6.14 K/ul (4.8-10.8)
[2023-06-20 06:37] LABS: BUN Creatinine Ratio 10.6 (10-20); Calcium 8.2 mg/dl (8.6-10.3); Creatinine Clr Calc Pharmacy 54.7 ml/min; Est GFR (African American) 72.3 ml/min; Est GFR (Non-African American) 62.4 ml/min; Magnesium 1.8 mg/dl (1.7-2.4); Potassium 3.2 mmol/L (3.5-5.1)
[2023-06-20] MEDS: INSULIN ASPART PER UNIT CHARGE SC SCH ×2 (07:49→11:42)
[2023-06-20] MEDS ORDERED: predniSONE 20 MG TAB PO SCH (08:00)
[2023-06-20] MEDS ORDERED: ACETAMINOPHEN 1,000 MG/100 ML VIAL IV STA (08:02)
[2023-06-20] MEDS: SUCRALFATE 1 GM/10 ML UDC PO SCH ×4 (08:14→19:47)
[2023-06-20 09:11] LABS: Estimated Average Glucose 157 mg/dl; Hemoglobin A1C 7.1 % (4.5-5.6)
[2023-06-20] MEDS: POTASSIUM CHLORIDE / WTR 10 MEQ/100 ML PLCT IV SCH ×4 (13:24→17:10)
--- NOTE | 2023-06-20 14:24 | Consultation ---
Date of Consultation June 20, 2023 Assessment & Plan (1) Peripheral arterial occlusive disease: Pt with severe PAD by US and CTA, and gangrene of L 1st and 5th toes, now s/p amputation of toes [address] Price. Arterial US indicates severe PAD with multiple occlusions in LLE, including L SHIATSU THERAPIST. CTA also indicates L SHIATSU THERAPIST occlusion, although images may show some flow here. Due to the possibility of SHIATSU THERAPIST occlusion, Dr Sher recommends pt undergo LLE angio to better eval. Procedure discussed at length with patient, including indications, expected outcome, risks, benefits, alternatives, and risks of not undergoing the procedure. Pt initially agreed to undergo procedure, then declined, stating " You just want to do this procedure because I have good insurance." Despite attempting to reassure the pt that his insurance has no bearing on the recommendation to have the angio, pt continued to decline the procedure. Advised pt of the risks he was taking in refusing the procedure, including increasing infection, sepsis, loss of limb, . Pt expresses understanding. Advised him to have staff call us if he changed his mind. Patient was seen, examined, and chart reviewed. Agree with exam and treatment plan of the Vascular PA. History of Present Illness Reason for Consultation: gangrenous toes Attending Physician: Flakito Rick MD History of Present Illness 78 yo m with hx of duodenal ulcer, DMII, HTN, neuropathy, CAD, BPH, prostate ca, hyperlipidemia, schizoaffective disorder, psychosis, hx of ETOH use, admitted with gangrene of L toes, seen in consultation today for PAD. Pt states he struck his toes at home about 4 weeks ago, but they never really healed up. States they became progressively more black and painful. Stopped his medications on his own some time ago. States his ambulation is limited by his heart, as he becomes short of breath with exertion. Denies any calf claudication sx. Denies rest pain at night, but does state he occasionally has mild discomfort from his neuropathy. States this is inconsistent in presentation. States he had a procedure done on his legs in the past. Review of his chart reveals BL GSV ablations performed. Denies BAILEY, fever, chest pain, SOB at rest, abd pain, N/V, other complaints. 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 Allergies Allergy/AdvReac Type Severity Reaction Status Date / Time morphine AdvReac Severe "STOPS MY Verified 06/18/23 15:02 HEART" diazepam AdvReac Intermediate HALLUCINATE Verified 06/18/23 15:02 S hydromorphone [From Dilaudid] AdvReac Intermediate unresponsiv Verified 06/18/23 15:02 eness propoxyphene AdvReac Intermediate DRUG Verified 06/18/23 15:02 INTOLERANCE trazodone AdvReac Intermediate GI UPSET Verified 06/18/23 15:02 Home Medications Medication Instructions Recorded Confirmed Type acetaminophen 500 mg tablet 1,000 mg PO Q8H PRN Pain 06/05/19 06/18/23 History (Tylenol Extra Strength) nitroglycerin 0.4 mg sublingual 0.4 mg sublingual UD PRN Chest Pain 11/04/20 06/18/23 History tablet (Nitrostat) pen needle, diabetic 31 gauge x #400 ea 07/11/21 11/28/22 Rx 3/16" (BD Ultra-Fine Mini Pen Needle) cyanocobalamin (vitamin B-12) 1,000 mcg PO QAM 08/10/21 06/18/23 History 1,000 mcg tablet (Vitamin B-12) blood sugar diagnostic (OneTouch #100 ea 08/26/21 11/28/22 Rx Ultra Test strips) [id number] 300 mcg-K 60 1 tab PO DAILY 09/01/21 06/18/23 History mcg-lycop 600 mcg-lutein 300 mcg tablet (Centrum Silver Men) Super Beta Prostate 1 tab PO QAM 09/05/21 06/18/23 History insulin glargine 100 unit/mL (3 15 unit subcut QPM 10/12/21 06/18/23 History mL) subcutaneous pen (Lantus Solostar U-100 Insulin) insulin lispro 100 unit/mL 5 - 7 unit subcut TID 10/12/21 06/18/23 History subcutaneous pen (Humalog KwikPen (U-100) Insulin) clopidogrel 75 mg tablet 75 mg PO DAILY #90 tabs 12/09/21 06/18/23 Rx tamsulosin 0.4 mg capsule 0.4 mg PO DAILY #90 caps 12/09/21 06/18/23 Rx atorvastatin 40 mg tablet (Lipitor) 40 mg PO QAM 04/12/22 06/18/23 History pantoprazole 40 mg tablet,delayed 40 mg PO DAILY #30 tabs 09/26/22 06/18/23 Rx release Patient History Medical History Poor historian GERD (gastroesophageal reflux disease) On anticoagulant therapy Kidney stones hx History of COVID-06 May 2022 at a [facility] in [place], [facility]. Peripheral neuropathy Prostate cancer pt did not acknowledge. Sepsis hx Schizoaffective disorder pt denies JUANCARLOS (acute kidney injury) BPH (benign prostatic hyperplasia) Amputated toe of left foot Cellulitis Osteomyelitis hx Diabetic ulcer of toe hx History of diverticulosis Mild cognitive impairment alert and oriented x3 -- "forgetful about his history" Stroke HX X 2-11/2004 AND 09/2019-F/U DR NÚÑEZ Orthostatic dizziness at times Failure of outpatient treatment Venous stasis ulcers of both lower extremities hx in 2019 Venous (peripheral) insufficiency Recurrent falls Parkinsonism per medical record - pt unaware Intermittent explosive disorder Delusional disorder, somatic type not currently -- pt unaware -- pt alert and oriented x3 at this time. Alcohol abuse pt states he quit "a long time ago" Chronic diastolic CHF (congestive heart failure) Benign colonic polyp Dyslipidemia History of tobacco use Nephrolithiasis Raynauds phenomenon Stage III chronic kidney disease Tubular adenoma of colon History of CVA (cerebrovascular accident) hx in 2004 and 2019 --> follows with Dr Núñez. Migraines hx Acute on chronic renal insufficiency pt unsure Osteoarthritis Diabetes mellitus, type 2 IDDM Hypertension Hyperlipidemia Myocardial Infarction 2004--follows with Dr. Mejia Surgical History H/O left cataract extraction S/P CABG (coronary artery bypass graft) 4 [facility] 2019 S/P sinus surgery History of lumbar discectomy x2 History of carpal tunnel release of both wrists History of open reduction and internal fixation (ORIF) procedure left ankle--hardware in place History of arthroscopy of left knee History of lithotripsy x2 History of colonoscopy History of tonsillectomy and adenoidectomy Status post uvulopalatopharyngoplasty History of right cataract extraction History of heart artery stent (1998) x1 stent History of cardiac cath x4-5, last 05/19/2019 [facility] NO RECENT STENTS Family History Father , age 74 of an PA Diabetes Prostate cancer Colorectal cancer Myocardial infarction Brother Prostate cancer Uncle Colorectal cancer Father Myocardial infarction Mother Myocardial infarction Stroke Other Dementia No family history of adverse response to anesthesia Denies family history of Ovarian cancer Breast cancer Social History Smoking Status: Former smoker Tobacco Type: Cigarettes Age Quit Using Tobacco: 71; packs per day: 3; Cigarettes Per Day: 3; Second Hand Exposure: Yes (hx); Do You Dip or Chew Tobacco: No (quit "a long time ago"); Hx Alcohol Use: No Hx Substance Use: No Preferred Language: Cameroonian Communication Ability: Effective Communication Ability Comment: Patient with confusion. 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); chemical exposure Feels Safe at Home: Yes Childhood Exposure to Second-Hand Smoke: Yes Diet: regular Dental Care, Regularly: Yes Physical Activity Frequency: Daily Seatbelt Use: always Sunscreen Use: No Assistive Devices: None Review of Systems Review of Systems: All systems reviewed & are unremarkable except as noted in HPI & below Physical Exam Constitutional: WD/WN, vitals as above cooperative; not in distress Neck: trachea midline Respiratory: normal respiratory effort, lungs clear to auscultation Auscultation: + diminished lung sounds Cardiovascular: Rate/Rhythm: regular rate and regular rhythm (with PAC/PVC) Vessels: femoral pulses present and posterior tibial pulses present (RLE dopplerable, LLE faint monophasic doppler signal); + abnormal peripheral pulses and + dorsalis pedis pulses abnormal (RLE dopplerable to ankle, nothing on foot. LLE faint monophasic dopplerankl) Extremities: normal capillary refill (RLE 4 seconds, LLE dressing in place) Gastrointestinal (Abdomen): Inspection/Auscultation: abdomen normal to inspection and normal bowel sounds Percussion/Palpation: abdomen soft; abdomen nontender Musculoskeletal: Extremities: strength 5/5 throughout Skin: LLE toe amputation dressing in place. No visible erythema beyond Neurologic: moves all extremities and awake; no focal motor deficits and not confused Psychiatric: Orientation: alert and oriented x 3 Eye Contact: + fair eye contact Affect: + anxious affect, + labile affect and + irritable affect Thought Process: + thought process not linear or logical Thought Content: + preoccupation and + paranoid Results & Data Vital Signs (Past 12 Hours) Vital Signs Temp Pulse Pulse Resp BP Pulse Ox O2 Del Method 06/20/23 11:39 36.1 C L 78 24 117/77 96 Room Air 06/20/23 09:00 Room Air 06/20/23 08:37 152/86 H 06/20/23 08:15 150/83 H 06/20/23 08:09 37.1 C 88 33 H 124/101 H 100 Room Air 06/20/23 07:00 71 06/20/23 03:11 36.7 C 74 20 124/72 92 Room Air
--- NOTE | 2023-06-20 14:33 | Hospitalist Progress Note ---
Date of Service June 20, 2023 Assessment & Plan (1) Sepsis: Plan: Patient presented with tachypnea elevated lactic acid rigors Patient received IV fluids Blood cultures from 06/18 negative Surgical wound cultures from 06/19 pending Continue IV antibiotics: Daptomycin, clindamycin, Zosyn Source seems to be the left foot gangrene/osteomyelitis Patient had first and fifth toe amputation done on 06/[address] Price. Vascular surgery involved, awaiting recommendations (2) Duodenal ulcer: Plan: Diagnosed in August persistent issue with this patient with profound outpatient weight loss. Patient stopped taking all medications bothered by daily abdominal pain. Was seen by GI in August 2022 and the risks were discussed of untreated gastric ulcer and esophagitis. However he declined initiating proton pump inhibitor. This is acute on chronic will use Carafate and have Pepcid IV twice daily (3) Controlled type 2 diabetes mellitus with neurologic complication, with long- term current use of insulin: Plan: Due to duodenal ulcer and abdominal pain patient is lost a significant amount of weight over the last 1 year and has now been off all diabetic medications with last hemoglobin A1c of 5.6 in November 2022. Will check q. ACHS glucose checks and have loose sliding scale if needed A1c ordered Per nurse, patient has been declining insulin (4) Unintentional weight loss of 10% body weight within 6 months: Plan: Due to abdominal pain from duodenal ulcers. Patient has not been taking medications at home. (5) Osteomyelitis: Plan: Status post first and fifth toe amputation on the left foot. Ordered IV fentanyl for pain control. Noted that there is documentation from 2006 that the patient is very sensitive to morphine causing respiratory depression. Most likely patient had received high-dose morphine at that point. Patient received IV fentanyl perioperatively without any issues. Will continue IV fentanyl Patient has also received oxycodone p.o. in the past 1 to 2 years. That can be used for pain control as well. Continue IV antibiotics Source control with amputation Will tailor antibiotics per wound culture results Per podiatry, patient has been refusing vascular intervention. Awaiting vascular consultation note. PT/OT ordered Plan CODE STATUS: DNR/DNI DVT prophylaxis: Heparin subcu held until podiatry clearance Admission and Anticipated Discharge Date Admission Date: June 18, 2023 Subjective Patient has been in significant pain as he did not get anything other than Tylenol for pain. I had ordered IV Tylenol as the patient has a history of morphine allergy that causes his "heart to stop". I did a document review together with the pharmacist and found that the first time morphine was listed as an allergy was in 2006. He did undergo a stress test and a diagnostic c ardiac catheterization in September 2006. It was first mentioned then that he was "very sensitive to morphine-respiratory depression". He received fentanyl perioperatively. I thus ordered fentanyl IV. Review of Systems Review of Systems: All systems reviewed & are unremarkable except as noted in Subjective Physical Exam Physical Exam: General: Awake, conversant Heart: S1, S2/regular rate and rhythm, no murmur rubs or gallops Lungs: Clear to auscultation bilaterally. Normal effort Abdomen: Soft/nontender/nondistended. No hepatosplenomegaly Extremities: Dressing on the left foot. Behavior: Appropriate, cooperative Results & Data Results & Data Vital Signs (Past 12 Hours) Vital Signs Temp Pulse Pulse Resp BP Pulse Ox O2 Del Method 06/20/23 11:39 36.1 C L 78 24 117/77 96 Room Air 06/20/23 09:00 Room Air 06/20/23 08:37 152/86 H 06/20/23 08:15 150/83 H 06/20/23 08:09 37.1 C 88 33 H 124/101 H 100 Room Air 06/20/23 07:00 71 06/20/23 03:11 36.7 C 74 20 124/72 92 Room Air Laboratory Results Abnormal lab results 06/19/23 06/19/23 06/20/23 Range/Units 19:06 20:06 05:44 RBC 4.57 L (4.70-6.10) M/uL Hct 40.1 L (42.0-52.0) % Potassium 3.2 L (3.5-5.1) mmol/L Chloride 111 H (98-107) mmol/L Carbon Dioxide 11 L (21-32) mmol/L Anion Gap 17 H (3-11) Glucose 135 H (70-99(Fasting)) mg/dl POC Glucose 127 H 127 H (70-99) mg/dl Hemoglobin A1c 7.1 H (4.5-5.6) % Calcium 8.2 L (8.6-10.3) mg/dl PG Care Time/CCT Total # of Minutes Spent Total Time Spent with Patient: Total time spent is greater than 50% in coordination of care (as documented) at patient's floor/unit and/or counseling patient: Coding Level of Care Code 55748 SUB INP/OBS CARE 2MIN Diagnoses Sepsis A41.9 Sepsis acute organ dysfunction status: without acute organ dysfunction Sepsis type: sepsis due to unspecified organism Duodenal ulcer K26.9 Controlled type 2 diabetes mellitus with neurologic complication, with long-term current use of insulin E11.49; Z79.4 Unintentional weight loss of 10% body weight within 6 months R63.4 Osteomyelitis M86.9 Laterality: left Osteomyelitis location: foot Osteomyelitis type: unspecified type (1) Sepsis Sepsis acute organ dysfunction status: without acute organ dysfunction Sepsis type: sepsis due to unspecified organism Qualified Code(s): A41.9 - Sepsis, unspecified organism (5) Osteomyelitis Laterality: left Osteomyelitis location: foot Osteomyelitis type: unspecified type Qualified Code(s): M86.9 - Osteomyelitis, unspecified
[2023-06-20] MEDS: DAPTOmycin 425 MG in SYRINGE 0 ML IV SCH (14:35)
[2023-06-20] MEDS: fentaNYL citrate PF 100 MCG/2 ML VIAL IV PRN ×2 (14:35→20:52)
[2023-06-20] MEDS ORDERED: ACETAMINOPHEN 1,000 MG/100 ML VIAL IV SCH (16:00)
--- NOTE | 2023-06-20 21:09 | Orthopedic Progress Note ---
Date of Service June 20, 2023 Assessment & Plan (1) Osteomyelitis: Plan: Patient seen at bedside in room 204-1 resting comfortably. Patient is status post day #1 (DOS: 06/19/23) left first and fifth toe amputations. Source control obtained. Awaiting culture and sensitivities from OR specimens. Patient is weight bearing as tolerated in surgical shoe. Dressing changed completed. Adaptic, 4x4, kerlix, Zander. Will continue to follow up while in house. (2) Cellulitis of left foot: (3) Gangrene: Admission and Anticipated Discharge Date Admission Date: June 18, 2023 Subjective Patient seen at bedside in room 204-1 resting comfortably. Patient is status post day #1 (DOS: 06/19/23) left first and fifth toe amputations. Patient's d aughter is present. Patient has no complaints. Review of Systems Review of Systems: All systems reviewed & are unremarkable except as noted in Subjective Physical Exam Constitutional: cooperative and comfortable Eyes: normal visual leo by confrontation Neck: normal visual inspection Respiratory: normal respiratory effort Cardiovascular: Rate/Rhythm: regular rate and regular rhythm Musculoskeletal: Extremities: extremities normal to inspection, + amputation noted (Left first and fifth toes) and + foot abnormality Skin: + incision (Sutures intact. Skin is well coapted.) Neurologic: moves all extremities (Absent epicritic sensation) Psychiatric: Orientation: alert and oriented x 3 Results & Data Vital Signs (Past 12 Hours) Vital Signs Temp Pulse Pulse Resp BP Pulse Ox O2 Del Method 06/20/23 20:08 36.8 C 74 18 130/82 93 Room Air 06/20/23 15:52 37.1 C 84 21 140/87 93 Room Air 06/20/23 15:37 82 06/20/23 11:39 36.1 C L 78 24 117/77 96 Room Air Diagnostic Findings [place], [place] [phone] CT Scan Report Patient: EMANUEL GRANT Admit Date: 06/18/23 MR#: [id number] Address1: [address] Acct ID:[id number] Address2: Date: 1945 [facility] Zip: [place] [address] Age: 78 Location: Sex: M Room/Bed: [facility] Att Phy: Flakito Rick MD Diagnosis: GANGRENE LEFT FOOT, OSTEOMYELITIS Bri Phy: Fox Moran MD Service Date: 06/19/23 Fam Phy: Interpreting Phy: Rodríguez PanAdmit Phy: Luis E Veloz MD Ordering Phy: Duane Sher M.D. cc: ~ CT ang AA runof w inc wo ifdon HISTORY: 78 years-old Male gangrene toes left foot COMPARISON: Arterial Doppler 06/18/2023, CT abdomen and pelvis 07/12/2022. TECHNIQUE: CTA abdomen and pelvis with lower extremity runoff was obtained following the intravenous administration of 114 mL Optiray 320. All measurements were obtained according to NASCET criteria. 3-D coronal and sagittal MIPS were obtained. A dose lowering technique was used consistent with the principals of CLARENCE. FINDINGS: CTA: Mild cardiomegaly with extensive coronary artery calcifications. Sternotomy wires are present. Moderate atherosclerosis with patency of the celiac trunk, superior and inferior mesenteric arteries. Irregular atherosclerotic plaque of the left renal artery results in multifocal proximal stenosis measuring up to 50%. The right renal artery is widely patent. RIGHT LOWER EXTREMITY: Patent common, and external iliac arteries. The common and superficial femoral arteries are patent. Mild stenosis of the distal SFA. The popliteal artery is patent. There is high-grade stenosis of the tibioperoneal trunk with occlusion involving the majority of the anterior and posterior tibial arteries. Multifocal high-grade stenoses of the peroneal artery. LEFT LOWER EXTREMITY: Patent common and external iliac arteries. There is complete occlusion at the origin of the superficial femoral artery without reconstitution of flow. Additionally, there is occlusion of the popliteal artery, tibioperoneal trunk, anterior and posterior tibial arteries. There is reconstitution of flow within the distal peroneal artery demonstrating multifocal areas of shzdtvxz-gl-[id number]-grade stenoses. Additionally, there is minimal distal reconstitution of flow within the posterior tibial artery at the level of the ankle. CT ABDOMEN/PELVIS: Clear lung bases. No free air. Calcified granulomata of the spleen, [id number] pancreatic atrophy. Unremarkable adrenal glands. Mildly distended gallbladder. Unremarkable liver. Cortical thinning of the kidneys. A 3 mm nonobstructing calculus of the interpolar left kidney. A 5 mm nonobstructing calculus of the inferior pole right kidney. No enhancing renal mass lesion is identified. No ureteral calculi or hydronephrosis. Decompressed bladder with mild wall thickening. Prostatomegaly. No lymphadenopathy. Scrotal wall edema with probable hydroceles. Subcentimeter paraesophageal lymph nodes. Mild distal esophageal wall thickening with adjacent inflammatory stranding. Moderate fecal retention with rectal wall thickening and perirectal stranding. Colonic diverticulosis. Noninflamed appendix. Unremarkable soft tissues. No acute fracture. IMPRESSION: 1. Atherosclerosis with complete occlusion of the left common femoral, superficial femoral, and popliteal arteries with additional left lower leg occlusion. There is reconstitution of flow within the left peroneal and distal posterior tibial arteries as above. 2. High-grade stenosis of the right tibioperoneal trunk with occlusion involving the majority of the right anterior and posterior tibial arteries. 3. Multifocal high-grade stenoses of the right peroneal artery. 4. Patent mesenteric arteries. 5. No acute intra-abdominal or intrapelvic abnormality. 6. Nonobstructing bilateral nephrolithiasis. 7. 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 8. Additional findings as above. ACT 112: Negative or not required by law. The above report was generated using voice recognition software. It may contain grammatical, syntax or spelling errors. Dictated: 06/19/2023 12:41 PM Transcribed: 06/19/2023 12:59 PM Isak [id number] [email or web address] Electronically signed by: Rodríguez Pan M.D. 06/19/2023 1:19 PM Dictated: 06/19/23 1241 Transcribed: 06/19/23 1259 (1) Osteomyelitis Laterality: left Osteomyelitis location: foot Osteomyelitis type: unspecified type Qualified Code(s): M86.9 - Osteomyelitis, unspecified
[2023-06-21] MEDS: PIPERACILLIN/TAZOBACTAM 4.5 GM in DEXTROSE 5% MINI-B 100 ML IV SCH ×3 (01:03→17:29)
[2023-06-21] MEDS: fentaNYL citrate PF 100 MCG/2 ML VIAL IV PRN (03:52)
[2023-06-21] MEDS: SUCRALFATE 1 GM/10 ML UDC PO SCH ×4 (06:31→20:05)
[2023-06-21 06:38] LABS: Hemoglobin 14.3 g/dl (14.0-18.0); Mean Corpuscular Hemoglobin 31.7 pg (25.0-34.0); Mean Corpuscular Hgb Conc 34.9 g/dL (32.0-36.0); Mean Corpuscular Volume 90.9 fL (80.0-100.0); Mean Platelet Volume 10.4 fL (9.4-12.4); Platelet Count 201 K/uL (130-400); RDW Coefficient of Variation 13.1 % (11.5-14.5); RDW Standard Deviation 43.6 fL (36.4-46.3); Red Blood Count 4.51 M/uL (4.70-6.10); White Blood Count 6.17 K/ul (4.8-10.8)
[2023-06-21 06:56] LABS: BUN Creatinine Ratio 9.3 (10-20); Creatinine Clr Calc Pharmacy 57.3 ml/min; Est GFR (African American) 76.3 ml/min; Est GFR (Non-African American) 65.9 ml/min; Potassium 3.8 mmol/L (3.5-5.1)
[2023-06-21] MEDS: ACETAMINOPHEN 325 MG TAB PO PRN ×3 (07:51→20:05)
[2023-06-21] MEDS: oxyCODONE HCL IR 5 MG TAB (IMMEDIATE RELEASE) PO PRN ×2 (11:11→17:28)
[2023-06-21] MEDS: PANTOprazole 40 MG TAB PO SCH ×2 (12:56→20:05)
[2023-06-21] MEDS: DAPTOmycin 425 MG in SYRINGE 0 ML IV SCH (13:28)
--- NOTE | 2023-06-21 13:47 | Hospitalist Progress Note ---
Date of Service June 21, 2023 Assessment & Plan (1) Sepsis: Plan: Patient presented with tachypnea elevated lactic acid rigors Patient received IV fluids Blood cultures from 06/18 negative Surgical wound cultures growing group C beta strep Continue IV antibiotics: Daptomycin, clindamycin, Zosyn Source was the left foot gangrene/osteomyelitis Patient had first and fifth toe amputation done on 06/[address] Price. Vascular surgery involved, awaiting recommendations now that the patient has agreed to vascular procedures and interventions. (2) Duodenal ulcer: Plan: Diagnosed in August persistent issue with this patient with profound outpatient weight loss. Patient stopped taking all medications bothered by daily abdominal pain. Was seen by GI in August 2022 and the risks were discussed of untreated gastric ulcer and esophagitis. However he declined initiating proton pump inhibitor. This is acute on chronic will use Carafate. Started Protonix p.o. twice daily. Patient does not want any further workup for his stomach issues. Per nurse he has had poor oral intake because of stomach pain. The patient has been quite whimsical and caring for him has become quite challenging (3) Controlled type 2 diabetes mellitus with neurologic complication, with long- term current use of insulin: Plan: Due to duodenal ulcer and abdominal pain patient is lost a significant amount of weight over the last 1 year and has now been off all diabetic medications with last hemoglobin A1c of 5.6 in November 2022. Will check q. ACHS glucose checks and have loose sliding scale if needed A1c 7 Per nurse, patient has been declining insulin (4) Unintentional weight loss of 10% body weight within 6 months: Plan: Due to abdominal pain from duodenal ulcers. Patient has not been taking medications at home. He is declining any further workup for his stomach issues (5) Osteomyelitis: Plan: Status post first and fifth toe amputation on the left foot. Ordered IV fentanyl for pain control. Noted that there is documentation from 2006 that the patient is very sensitive to morphine causing respiratory depression. Most likely patient had received high-dose morphine at that point. Patient received IV fentanyl perioperatively without any issues. Will continue IV fentanyl Patient has also received oxycodone p.o. in the past 1 to 2 years. Added oxycodone p.o. to 6 Continue IV antibiotics Source control with amputation Will tailor antibiotics per wound culture results Patient is agreeable to vascular interventions today, per nurse. Awaiting further recommendations from vascular surgery PT/OT ordered Plan CODE STATUS: DNR/DNI DVT prophylaxis: Heparin subcu held until podiatry clearance Admission and Anticipated Discharge Date Admission Date: June 18, 2023 Subjective Patient is not complaining of pain at the surgical site today. Per nurse, he agreed to vascular procedures. Vascular surgery has been notified. Per nurse, his oral intake has been poor due to stomach pain. He does not want any further workup or intervention regarding his stomach issues. I spoke to his friend, power of criminal attorney. Per friend, the patient has always been "stubborn and head strong. He has his own way of thinking and perceiving things." Review of Systems Review of Systems: All systems reviewed & are unremarkable except as noted in Subjective Physical Exam Physical Exam: General: Awake, conversant Heart: S1, S2/regular rate and rhythm, no murmur rubs or gallops Lungs: Clear to auscultation bilaterally. Normal effort Abdomen: Soft/nontender/nondistended. No hepatosplenomegaly Extremities: Dressing on the left foot. Behavior: Appropriate, cooperative Results & Data Results & Data Vital Signs (Past 12 Hours) Vital Signs Temp Pulse Pulse Resp BP Pulse Ox O2 Del Method 06/21/23 11:52 36.8 C 84 18 124/82 96 Room Air 06/21/23 08:00 Room Air 06/21/23 07:09 36.4 C L 82 18 137/93 96 Room Air 06/21/23 07:00 87 06/21/23 03:36 36.8 C 85 18 146/76 H 92 Room Air Laboratory Results Abnormal lab results 06/20/23 06/21/23 06/21/23 Range/Units 19:57 06:10 07:11 RBC 4.51 L (4.70-6.10) M/uL Hct 41.0 L (42.0-52.0) % Chloride 110 H (98-107) mmol/L Carbon Dioxide 16 L (21-32) mmol/L Anion Gap 13 H (3-11) BUN/Creatinine Ratio 9.3 L (10-20) Glucose 129 H (70-99(Fasting)) mg/dl POC Glucose 145 H 117 H (70-99) mg/dl Calcium 8.0 L (8.6-10.3) mg/dl PG Care Time/CCT Total # of Minutes Spent Total Time Spent with Patient: Total time spent is greater than 50% in coordination of care (as documented) at patient's floor/unit and/or counseling patient: Coding Level of Care Code 36592 SUB INP/OBS CARE 235MIN Diagnoses Sepsis A41.9 Sepsis acute organ dysfunction status: without acute organ dysfunction Sepsis type: sepsis due to unspecified organism Duodenal ulcer K26.9 Controlled type 2 diabetes mellitus with neurologic complication, with long-term current use of insulin E11.49; Z79.4 Unintentional weight loss of 10% body weight within 6 months R63.4 Osteomyelitis M86.9 Laterality: left Osteomyelitis location: foot Osteomyelitis type: unspecified type (1) Sepsis Sepsis acute organ dysfunction status: without acute organ dysfunction Sepsis type: sepsis due to unspecified organism Qualified Code(s): A41.9 - Sepsis, unspecified organism (5) Osteomyelitis Laterality: left Osteomyelitis location: foot Osteomyelitis type: unspecified type Qualified Code(s): M86.9 - Osteomyelitis, unspecified
--- NOTE | 2023-06-21 14:28 | Communication Note ---
Date of Service: June 21, 2023 Patient agreeable for angio tomorrow. I have discussed the risks options and benefits of the procedure with the patient. The patient understands the risks options and benefits and agrees to the procedure.
--- NOTE | 2023-06-21 21:22 | Orthopedic Progress Note ---
Date of Service June 21, 2023 Assessment & Plan (1) Osteomyelitis: Plan: Patient seen at bedside in room 204-1 resting comfortably. Patient is status post day #2 (DOS: 06/19/23) left first and fifth toe amputations. Patient agrees to vascular procedure. Patient is weight bearing as tolerated in surgical shoe. Dressing changed completed. Adaptic, 4x4, kerlix, Zander. Will continue to follow up while in house. (2) Cellulitis of left foot: (3) Gangrene: Admission and Anticipated Discharge Date Admission Date: June 18, 2023 Subjective Patient seen at bedside in room 204-1 resting comfortably. Patient is status post day #1 (DOS: 06/19/23) left first and fifth toe amputations. He states he has no agreed to be treated by vascular. Physical Exam Constitutional: + frail appearing, cooperative and comfo rtable Eyes: normal visual leo by confrontation Neck: normal visual inspection Respiratory: normal respiratory effort Cardiovascular: Rate/Rhythm: regular rate and regular rhythm Musculoskeletal: Extremities: extremities normal to inspection, + amputation noted (Left first and fifth toes) and + foot abnormality Skin: + incision (Sutures intact. Skin is well coapted.) Neurologic: moves all extremities (Absent epicritic sensation) Psychiatric: Orientation: alert and oriented x 3 Results & Data Vital Signs (Past 12 Hours) Vital Signs Temp Pulse Pulse Resp BP Pulse Ox O2 Del Method 06/21/23 19:00 37.2 C 88 18 129/65 97 Room Air 06/21/23 15:41 36.2 C L 90 19 98/72 L 96 Room Air 06/21/23 15:00 92 H 06/21/23 11:52 36.8 C 84 18 124/82 96 Room Air (1) Osteomyelitis Laterality: left Osteomyelitis location: foot Osteomyelitis type: unspecified type Qualified Code(s): M86.9 - Osteomyelitis, unspecified
[2023-06-22] MEDS: PIPERACILLIN/TAZOBACTAM 4.5 GM in DEXTROSE 5% MINI-B 100 ML IV SCH ×3 (02:31→17:40)
[2023-06-22] MEDS: oxyCODONE HCL IR 5 MG TAB (IMMEDIATE RELEASE) PO PRN ×3 (02:37→16:18)
[2023-06-22] MEDS: ACETAMINOPHEN 325 MG TAB PO PRN ×2 (02:37→06:48)
[2023-06-22] MEDS ORDERED: SODIUM CHLORIDE 0.9% 1,000 ML IV SCH ×2 (06:00→12:39)
[2023-06-22 06:19] LABS: Hematocrit (blood only) 40.8 % (42.0-52.0); Mean Corpuscular Hemoglobin 31.4 pg (25.0-34.0); Mean Corpuscular Hgb Conc 34.3 g/dL (32.0-36.0); Mean Corpuscular Volume 91.5 fL (80.0-100.0); Mean Platelet Volume 10.4 fL (9.4-12.4); Platelet Count 182 K/uL (130-400); RDW Standard Deviation 43.5 fL (36.4-46.3); Red Blood Count 4.46 M/uL (4.70-6.10); White Blood Count 7.01 K/ul (4.8-10.8)
[2023-06-22 06:50] LABS: BUN Creatinine Ratio 17.2 (10-20); Calcium 8.2 mg/dl (8.6-10.3); Creatinine Clr Calc Pharmacy 66.5 ml/min; Est GFR (African American) 91.5 ml/min; Est GFR (Non-African American) 78.9 ml/min; Potassium 3.5 mmol/L (3.5-5.1)
--- NOTE | 2023-06-22 07:26 | History & Physical Bridge Note ---
Date of Service June 22, 2023 History & Physical Bridge Note Patient for arteriography with possible intervention today. I have discussed the risks options and benefits of the procedure with the patient. The patient understands the risks options and benefits and agrees to the procedure. I have examined the patient, reviewed the History & Physical and in the interval since the performance of the History & Physical I have noted the following changes of clinical significance: no changes noted
[2023-06-22] MEDS: SUCRALFATE 1 GM/10 ML UDC PO SCH ×4 (07:51→20:14)
[2023-06-22] MEDS: PANTOprazole 40 MG TAB PO SCH ×2 (07:51→20:13)
[2023-06-22] MEDS ORDERED: MIDAZOLAM HCL 1 MG/ML 2ML VIAL ONE (11:31)
[2023-06-22] MEDS ORDERED: fentaNYL citrate PF 100 MCG/2 ML VIAL ONE (11:32)
--- NOTE | 2023-06-22 11:47 | Infectious Disease Consult ---
Date of Consultation June 22, 2023 Assessment & Plan (1) Osteomyelitis: (2) Gangrene: (3) Cellulitis of left foot: (4) Peripheral arterial occlusive disease: Plan 78 yo M with history of T2DM, HTN, HLD, [place], CVA, CKD, CHF, L toe amputation who presented on 06/18 with L foot pain and blackened toes, found to have gangrene and osteomyelitis of first and fifth toes, s/p first and fifth toe amputations (06/19/23). On presentation, CT left foot without contrast showed soft tissue gas within the left fifth toe and intraosseous gas within the distal phalanx of the left fifth toe highly suggestive of osteomyelitis. Soft tissue gas within the left first toe, equivocal erosion of the distal tuft of the distal phalanx of the left first toe, probably chronic however additional focus of acute osteo cannot be excluded. US duplex LLE arteries showed complete occlusion of common femoral artery and superficial femoral artery, majority occlusion of popliteal artery, occluded calf arteries. Podiatry took patient to the OR on 06/19 and performed amputation of left great toe and left fifth toe. Surgical cure of osteomyelitis was reportedly obtained. Patient underwent LLE angiogram on 06/22, which showed reconstitution of the anterior tibial artery approximately 15 cm above the ankle joint and the posterior tibial artery which reconstituted at the ankle joint. He was determined not to be candidate for bypass procedures due to overall medical condition and is not having [place] conduit for bypass. Vascular surgery felt that if his foot should worsen, then he will most likely require a left lower extremity amputation. Micro: 1/2 L 5th toe cx: Group C Strep 2 L great toe cx: Group C Strep 06/18 BCx x2: NGTD Abx: Daptomycin 06/18 - present Pip-tazo 06/18 - present Clindamycin 06/18 - 06/20 Problems: #L first and fifth toe osteomyelitis and gangrene s/p first and fifth toe amputations (06/19/23) #T2DM #PAD Recommendations: -Given surgical cure of osteomyelitis, can continue antibiotics for ~5-7 days post-op to treat any residual skin/soft tissue infection. Can continue dapto/pip-tazo through ~06/25, then discontinue antibiotics Discussed with hospitalist. Will sign off. Please page [facility] with further questions. Consultation Information This patient recommendation is based on a telemedicine consult request which was completed asynchronously through chart review and information provided by the primary physician. The patient was not seen or examined today. The evaluation is consultative in nature and all patient care and treatment decisions can either be accepted or rejected by the patient's primary hospital-based treating physician using their own independent medical judgment for their patient. [employer] contact information: Please call [facility] . (Phone Number For Physician Use Only) Time Spent Reviewing Chart: 31+ minutes History of Present Illness Reason for Consultation: L foot osteomyelitis s/p amputation Attending Physician: Flakito Rick MD History of Present Illness 78 yo M with history of T2DM, HTN, HLD, [place], CVA, CKD, CHF, L toe amputation who presented on 06/18 with L foot pain and blackened toes. On presentation, pt was afebrile, RR 32. Labs showed WBC 7.18, Cr 1.3, lactate 5.2. CXR negative. CT left foot without contrast showed soft tissue gas within the left fifth toe and intraosseous gas within the distal phalanx of the left fifth toe highly suggestive of osteomyelitis. Soft tissue gas within the left first toe, this may be related to the toenail, however an infectious process cannot be excluded. Equivocal erosion of the distal tuft of the distal phalanx of the left first toe, probably chronic however additional focus of acute osteo cannot be excluded. US duplex LLE arteries showed complete occlusion of common femoral artery and superficial femoral artery, majority occlusion of popliteal artery, occluded calf arteries. Podiatry took patient to the OR on 06/19 and performed amputation of left great toe and left fifth toe. Source control was obtained. Patient underwent LLE angiogram on 06/22, which showed reconstitution of the anterior tibial artery approximately 15 cm above the ankle joint and the posterior tibial artery which reconstituted at the ankle joint. He was determined not to be candidate for bypass procedures due to overall medical condition and is not having [place] conduit for bypass. Vascular surgery felt that if his foot should worsen, then he will most likely require a left lower extremity amputation. Allergies Allergy/AdvReac Type Severity Reaction Status Date / Time morphine AdvReac Severe "STOPS MY Verified 06/18/23 15:02 HEART" diazepam AdvReac Intermediate HALLUCINATE Verified 06/18/23 15:02 S hydromorphone [From Dilaudid] AdvReac Intermediate unresponsiv Verified 06/18/23 15:02 eness propoxyphene AdvReac Intermediate DRUG Verified 06/18/23 15:02 INTOLERANCE trazodone AdvReac Intermediate GI UPSET Verified 06/18/23 15:02 Home Medications Medication Instructions Recorded Confirmed Type acetaminophen 500 mg tablet 1,000 mg PO Q8H PRN Pain 06/05/19 06/18/23 History (Tylenol Extra Strength) nitroglycerin 0.4 mg sublingual 0.4 mg sublingual UD PRN Chest Pain 11/04/20 06/18/23 History tablet (Nitrostat) pen needle, diabetic 31 gauge x #400 ea 07/11/21 11/28/22 Rx 3/16" (BD Ultra-Fine Mini Pen Needle) cyanocobalamin (vitamin B-12) 1,000 mcg PO QAM 08/10/21 06/18/23 History 1,000 mcg tablet (Vitamin B-12) blood sugar diagnostic (OneTouch #100 ea 08/26/21 11/28/22 Rx Ultra Test strips) [id number] 300 mcg-K 60 1 tab PO DAILY 09/01/21 06/18/23 History mcg-lycop 600 mcg-lutein 300 mcg tablet (Centrum Silver Men) Super Beta Prostate 1 tab PO QAM 09/05/21 06/18/23 History insulin glargine 100 unit/mL (3 15 unit subcut QPM 10/12/21 06/18/23 History mL) subcutaneous pen (Lantus Solostar U-100 Insulin) insulin lispro 100 unit/mL 5 - 7 unit subcut TID 10/12/21 06/18/23 History subcutaneous pen (Humalog KwikPen (U-100) Insulin) clopidogrel 75 mg tablet 75 mg PO DAILY #90 tabs 12/09/21 06/18/23 Rx tamsulosin 0.4 mg capsule 0.4 mg PO DAILY #90 caps 12/09/21 06/18/23 Rx atorvastatin 40 mg tablet (Lipitor) 40 mg PO QAM 04/12/22 06/18/23 History pantoprazole 40 mg tablet,delayed 40 mg PO DAILY #30 tabs 09/26/22 06/18/23 Rx release Patient History Medical History (Updated 06/22/23 @ 15:[address]) Poor historian GERD (gastroesophageal reflux disease) On anticoagulant therapy Kidney stones hx [facility] [place], asymptomatic. Peripheral neuropathy Prostate cancer pt did not acknowledge. Sepsis hx Schizoaffective disorder pt denies JUANCARLOS (acute kidney injury) BPH (benign prostatic hyperplasia) Amputated toe of left foot Cellulitis Osteomyelitis hx Diabetic ulcer of toe hx History of diverticulosis Mild cognitive impairment alert and oriented x3 -- "forgetful about his history" Stroke HX X 2-11/2004 AND 09/2019-F/U DR NÚÑEZ Orthostatic dizziness at times Failure of outpatient treatment Venous stasis ulcers of both lower extremities hx in 2019 Venous (peripheral) insufficiency Recurrent falls Parkinsonism per medical record - pt unaware Intermittent explosive disorder Delusional disorder, somatic type not currently -- pt unaware -- pt alert and oriented x3 at this time. Alcohol abuse pt states he quit "a long time ago" Chronic diastolic CHF (congestive heart failure) Benign colonic polyp Dyslipidemia History of tobacco use Nephrolithiasis Raynauds phenomenon Stage III chronic kidney disease Tubular adenoma of colon History of CVA (cerebrovascular accident) hx in 2004 and 2019 --> follows with Dr Núñez. Migraines hx Acute on chronic renal insufficiency pt unsure Osteoarthritis Diabetes mellitus, type 2 Hypertension Hyperlipidemia Myocardial Infarction 2004--follows with Dr. Mejia Surgical History H/O left cataract extraction S/P CABG (coronary artery bypass graft) 4 [facility] 2018 S/P sinus surgery History of lumbar discectomy x2 History of carpal tunnel release of both wrists History of open reduction and internal fixation (ORIF) procedure left ankle--hardware in place History of arthroscopy of left knee History of lithotripsy x2 History of colonoscopy History of tonsillectomy and adenoidectomy Status post uvulopalatopharyngoplasty History of right cataract extraction History of heart artery stent (1998) x1 stent History of cardiac cath x4-5, last 05/19/2019 [facility] NO RECENT STENTS Family History Father , age 74 of an [place] Diabetes Prostate cancer Colorectal cancer Myocardial infarction Brother Prostate cancer Uncle Colorectal cancer Father Myocardial infarction Mother Myocardial infarction Stroke Other Dementia No family history of adverse response to anesthesia Denies family history of Ovarian cancer Breast cancer Social History Smoking Status: Former smoker Tobacco Type: Cigarettes Age Quit Using Tobacco: 71; packs per day: 3; Cigarettes Per Day: 3; Second Hand Exposure: Yes (hx); Do You Dip or Chew Tobacco: No (quit "a long time ago"); Hx Alcohol Use: No Hx Substance Use: No Preferred Language: Yoruba Communication Ability: Effective Communication Ability Comment: Patient with confusion. 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); chemical exposure Feels Safe at Home: Yes Childhood Exposure to Second-Hand Smoke: Yes Diet: regular Dental Care, Regularly: Yes Physical Activity Frequency: Daily Seatbelt Use: always Sunscreen Use: No Assistive Devices: None Review of System Patient not seen Physical Exam Physical Exam: Patient not seen Results & Data Vital Signs (Past 12 Hours) Vital Signs Temp Pulse Pulse Pulse Resp BP Pulse Ox 06/22/23 11:10 36.6 C 46 L 20 120/76 99 06/22/23 08:00 102 H 06/22/23 08:00 06/22/23 07:20 36.3 C L 83 18 130/80 99 06/22/23 07:00 102 H 06/22/23 03:00 36.7 C 73 16 118/75 98 O2 Del Method 06/22/23 11:10 Room Air 06/22/23 08:00 06/22/23 08:00 Room Air 06/22/23 07:20 Room Air 06/22/23 07:00 06/22/23 03:00 Room Air Laboratory Results Short CBC 06/22/23 Range/Units 05:34 WBC 7.01 (4.8-10.8) K/ul Hgb 14.0 (14.0-18.0) g/dl Hct 40.8 L (42.0-52.0) % Plt Count 182 (130-400) K/uL BMP 06/22/23 05:34 Sodium 138 Potassium 3.5 Chloride 109 H Carbon Dioxide 19 L BUN 16 Creatinine 0.93 Glucose 144 H Calcium 8.2 L Medications Administered Current Inpatient Medications Acetaminophen (Acetaminophen 325 Mg Tab) 650 mg PO Q4H PRN PRN Reason: Pain or Fever Stop: 07/18/23 17:28 Last Admin: 06/22/23 06:48 Dose: 650 mg Al Hydrox/Mg Hydrox/Simethicone (Aluminum/Magnesium Susp 30 Ml Udc) 15 ml PO Q4H PRN PRN Reason: Dyspepsia Stop: 07/18/23 17:28 Dextrose (Dextrose 50% 50 Ml Syringe) 25 - 50 ml IV UD PRN; Protocol PRN Reason: Hypoglycemia Protocol Stop: 07/18/23 17:28 Fentanyl Citrate (Fentanyl Citrate Pf 100 Mcg/2 Ml Vial) 25 mcg IV Q6 PRN PRN Reason: SEVERE Pain Stop: 07/04/23 12:50 Last Admin: 06/22/23 13:10 Dose: 25 mcg Glucagon (Glucagon For Inj 1 Mg Vial) 1 mg SQ UD PRN; Protocol PRN Reason: Hypoglycemia Protocol Stop: 07/18/23 17:28 Glucose (Glucose 10 Tab/Tube) 4 - 8 tab PO UD PRN; Protocol PRN Reason: Hypoglycemia Treatment Stop: 07/18/23 17:28 Glucose (Glucose 40% Gel 15 Gm Tube) 15 - 30 gm PO UD PRN; Protocol PRN Reason: Hypoglycemia Protocol Stop: 07/18/23 17:28 Daptomycin 425 mg/ Syringe 8.5 mls @ 4.25 mls/min IV Q24H NIKOLAI; Protocol Stop: 07/31/23 13:59 Last Admin: 06/22/23 13:17 Dose: 4.25 mls/min Piperacillin Sod/Tazobactam (Sod 4.5 gm/ Dextrose) 100 mls @ 25 mls/hr IV Q8H NIKOLAI; Protocol Stop: 07/30/23 17:59 Last Infusion: 06/22/23 14:31 Dose: Infused Iodixanol (Visipaque) 100 ml IV UD PRN PRN Reason: Interaction Checking Stop: 06/26/23 12:13 Last Admin: 06/22/23 13:05 Dose: 35 ml Miscellaneous (Carbohydrates For Hypoglycemia ) 15 - 30 gm PO UD PRN PRN Reason: Hypoglycemia Protocol Stop: 07/18/23 17:28 Ondansetron HCl (Ondansetron Inj 2 Mg/Ml 2 Ml Vial) 4 mg IV Q6H PRN PRN Reason: Nausea Stop: 07/18/23 17:28 Oxycodone HCl (Oxycodone Hcl Ir 5 Mg Tab (Immediate Release)) 5 mg PO Q6 PRN PRN Reason: Pain Stop: 07/05/23 07:55 Last Admin: 06/22/23 16:18 Dose: 5 mg Pantoprazole Sodium (Pantoprazole 40 Mg Tab) 40 mg PO BID NIKOLAI Stop: 07/21/23 12:14 Last Admin: 06/22/23 07:51 Dose: 40 mg Sucralfate (Sucralfate 1 Gm/10 Ml Udc) 1 gm PO ACHS NIKOLAI Stop: 07/18/23 17:28 Last Admin: 06/22/23 16:18 Dose: 1 gm (1) Osteomyelitis Laterality: left Osteomyelitis location: foot Osteomyelitis type: unspecified type Qualified Code(s): M86.9 - Osteomyelitis, unspecified
--- NOTE | 2023-06-22 11:52 | Pre Anesthesia Assessment ---
Date of Service June 22, 2023 Pre Sedation Assessment Vital Signs Temp Pulse Pulse Pulse Resp BP Pulse Ox 06/22/23 11:10 36.6 C 46 L 20 120/76 99 06/22/23 08:00 102 H 06/22/23 08:00 06/22/23 07:20 36.3 C L 83 18 130/80 99 06/22/23 07:00 102 H 06/22/23 03:00 36.7 C 73 16 118/75 98 06/21/23 23:00 36.4 C L 85 18 114/75 97 06/21/23 19:00 37.2 C 88 18 129/65 97 06/21/23 15:41 36.2 C L 90 19 98/72 L 96 06/21/23 15:00 92 H O2 Del Method 06/22/23 11:10 Room Air 06/22/23 08:00 06/22/23 08:00 Room Air 06/22/23 07:20 Room Air 06/22/23 07:00 06/22/23 03:00 Room Air 06/21/23 23:00 Room Air 06/21/23 19:00 Room Air 06/21/23 15:41 Room Air 06/21/23 15:00 Cardiovascular RRR, no murmur, no edema Respiratory normal respiratory effort, lungs clear to auscultation Pre-Sedation Airway Assessment Smoking Status: Former smoker Hx Sleep Apnea: No Hx Difficult Intubation: No Short, Thick Neck: No Thyromental Distance: > or= 3.5 Finger Breadths Oral Cavity: + WNL Mallampati Class: III ASA: ASA3 NPO Status Date of Last Intake of Fluids: 06/21/23 Time of Last Intake of Fluids: 22:00 Last Oral Intake of Fluids Comment: sip with meds 0700 Date of Last Intake of Solid Food: 06/21/23 Time of Last Intake of Solid Foods: 18:00 Procedure Planning Contraindications for Sedation: none Current Medications Reviewed: Yes Notes The planned sedation has been discussed with the patient. Informed Consent was obtained. I have identified the patient, determined the appropriateness of sedation and have assessed the patient immediately prior to the procedure. All medicine(s) and interventions are by my order.
[2023-06-22] MEDS ORDERED: VISIPAQUE IV PRN (12:14)
--- NOTE | 2023-06-22 12:26 | Post Anesthesia Assessment ---
Date of Service June 22, 2023 Post Sedation Assessment Vital Signs Temp Pulse Pulse Pulse Resp BP Pulse Ox 06/22/23 12:24 75 16 136/75 98 06/22/23 12:23 78 16 140/72 98 06/22/23 12:18 75 16 138/67 100 06/22/23 12:13 78 16 141/70 H 94 06/22/23 12:08 78 16 119/78 100 06/22/23 12:05 84 16 133/78 100 06/22/23 11:10 36.6 C 46 L 20 120/76 99 06/22/23 08:00 102 H 06/22/23 08:00 06/22/23 07:20 36.3 C L 83 18 130/80 99 06/22/23 07:00 102 H 06/22/23 03:00 36.7 C 73 16 118/75 98 06/21/23 23:00 36.4 C L 85 18 114/75 97 06/21/23 19:00 37.2 C 88 18 129/65 97 06/21/23 15:41 36.2 C L 90 19 98/72 L 96 06/21/23 15:00 92 H O2 Del Method O2 Flow Rate 06/22/23 12:24 Oxymask 4 06/22/23 12:23 Oxymask 4 06/22/23 12:18 Oxymask 4 06/22/23 12:13 Oxymask 4 06/22/23 12:08 Oxymask 4 06/22/23 12:05 Oxymask 4 06/22/23 11:10 Room Air 06/22/23 08:00 06/22/23 08:00 Room Air 06/22/23 07:20 Room Air 06/22/23 07:00 06/22/23 03:00 Room Air 06/21/23 23:00 Room Air 06/21/23 19:00 Room Air 06/21/23 15:41 Room Air 06/21/23 15:00 Recovery Score Activity: Moves 4 extremities Respiration: Deep Breath/Cough Circulation: +/-20% PreAnes Value Consciousness: Fully Awake Oxygen Saturation: > 92% On Room Air Post Anesthesia Score: 10 Discharge Sedation Level of Care: Fast Track Phase II Post Sedation Plan On clinical assessment, the patient appears to have tolerated the sedation without complications. Patient is recovering as anticipated. Patient will continue to be monitored by nursing and may be discharged when sedation discharge criteria are met per below protocol. Upon Completions of procedure up to 15 minutes continue every 5 minute vital signs and the P.A.R. score; then discharge to a Phase I or Fast Track to Phase II per the following guidelines: * Discharge Patient to appropriate Phase II area if PAR is 8 or greater or return to pre- procedure baseline. The post - procedure orders will be as directed. * If PAR score is less than 8 or not return to pre-procedure baseline then patient will follow Phase I monitoring till PAR is reached for Phase II. The Phase I may be done in procedure room or may call to secure a Phase I area. * If naloxone or flumazenil are used for reversal, hold in Phase I for continued monitoring from when last reversal dose was given for a minimum of 60 minutes or longer pending the nurse and/or physician discretion of patient condition before discharge to Phase II. Please call the Sedation Physician to re-evaluate and complete post-note for discharge to Phase II area. Do NOT discharge from procedure sedation or Phase 1 until post- sedation evaluation note is complete by procedure /sedation MD Sedation Discharge Instructions to be given to the patient at discharge to home.
[2023-06-22] MEDS: LIDOCAINE 1% LOCAL 20 ML VIAL ONE ×2 (12:30→12:47)
--- NOTE | 2023-06-22 12:31 | Procedure Note ---
Angiogram Post Procedure Fluoroscopy Time (minutes): 0.4 Radiation (mGy): 16 Contrast: 35 Post Operative Report Pre & Post Diagnosis Operation Date: 06/22/23 11:40 Pre-Op Diagnosis: GANGRENE LEFT FOOT Post-Op Diagnosis: GANGRENE LEFT FOOT I identified the patient and participated in the time-out.: Yes Procedure Operation Date: 06/22/23 11:40 Actual Procedures p Left Lower Extremity Angiogram, Ultrasound Localization of the Right Femoral Artery,Mechanical closure of right common femoral artery, Moderate Sedation 12: - Duane Sher MD Surgeon Duane Sher MD Personal Injury Law Specialist none Estimated Blood Loss 5 Findings Consistent with Post-Op Diagnosis Specimens none Anesthesia Type RN Sedation Complications none Disposition Accompanied Patient To Recovery: No Disposition: Recovery Room Indications This is a 78-year-old gentleman gangrene of the toes of the left foot. He is found to have significant occlusion of the left lower extremity arterial system. Ultrasound and CAT scan revealed an occluded common femoral artery on the report. There is a question of whether it was patent or not. Arteriography was recommended to better define his anatomy. I have discussed the risks options and benefits of the procedure with the patient. The patient understands the risks options and benefits and agrees to the procedure. Description of Procedure The patient was taken the operating room placed supine position. After groins were prepped draped in a sterile manner patient was identified and timeout was performed. Local anesthetic was administered to the right groin. Ultrasound was used to locate the right common femoral artery. It was patent with mild plaque. Under ultrasound guidance the right common femoral artery was punctured and 5 Indonesian sheath inserted. An 035 wire followed by rim catheter was inserted and the left iliac was cannulated from the right side. The catheter was then advanced down to the distal external iliac artery. Arteriography was performed which showed the left common femoral artery be widely patent as well as the profundofemoral artery. The superficial femoral artery is occluded at its origin. The only reconstitution noted was the anterior tibial at approximately 15 to 20 cm above the ankle. The posterior tibial artery reconstituted at the ankle level. No intervention was recommended at this time. The catheter was then removed. A Star closure device was used to close the puncture in the right groin. Adequate hemostasis was then noted after the closure device was fired. Sterile dressings were applied to the puncture site.The patient left the operation room in satisfactory condition and tolerated the procedure well. All needle and sponge counts were correct at the end of the procedure. I attest to the content of the Intraoperative Record and any orders documented t herein. Any exceptions are noted below.
--- NOTE | 2023-06-22 12:33 | Communication Note ---
Date of Service: June 22, 2023 This gentleman had reconstitution of anterior tibial artery approximately 15 cm above the ankle joint and a posterior tibial artery which reconstituted at the ankle joint. He has not have any veins left of either lower extremity. He is therefore not a candidate for bypass procedures of the left lower extremity due to his overall medical condition as well as not having a [place] conduit for bypass extending from his groin to his ankle. If his foot should worsen then he will most likely require a left lower extremity amputation.
[2023-06-22] MEDS: fentaNYL citrate PF 100 MCG/2 ML VIAL IV PRN ×2 (13:10→20:21)
[2023-06-22] MEDS: DAPTOmycin 425 MG in SYRINGE 0 ML IV SCH (13:17)
--- NOTE | 2023-06-22 16:37 | Hospitalist Progress Note ---
Date of Service June 22, 2023 Assessment & Plan (1) Sepsis: Plan: Patient presented with tachypnea elevated lactic acid rigors Patient received IV fluids Blood cultures from 06/18 negative Surgical wound cultures growing group C beta strep. ID consulted. Awaiting recommendations Continue IV antibiotics: Daptomycin, clindamycin, Zosyn Plan to continue IV antibiotics for 2 more days now that source control has been achieved Source was the left foot gangrene/osteomyelitis Patient had first and fifth toe amputation done on 06/[address] Price. Vascular surgery did an angiography with some reconstitution. Not a candidate for bypass (2) Duodenal ulcer: Plan: Diagnosed in August persistent issue with this patient with profound outpatient weight loss. Patient stopped taking all medications bothered by daily abdominal pain. Was seen by GI in August 2022 and the risks were discussed of untreated gastric ulcer and esophagitis. However he declined initiating proton pump inhibitor. This is acute on chronic will use Carafate. Started Protonix p.o. twice daily. Patient does not want any further workup for his stomach issues. Per nurse he has had poor oral intake because of stomach pain. The patient has been quite whimsical and caring for him has become quite challenging (3) Controlled type 2 diabetes mellitus with neurologic complication, with long- term current use of insulin: Plan: Due to duodenal ulcer and abdominal pain patient is lost a significant amount of weight over the last 1 year and has now been off all diabetic medications with last hemoglobin A1c of 5.6 in November 2022. Will check q. ACHS glucose checks and have loose sliding scale if needed A1c 7 Per nurse, patient has been declining insulin (4) Unintentional weight loss of 10% body weight within 6 months: Plan: Due to abdominal pain from duodenal ulcers. Patient has not been taking medications at home. He is declining any further workup for his stomach issues (5) Osteomyelitis: Plan: Status post first and fifth toe amputation on the left foot. Ordered IV fentanyl for pain control. Noted that there is documentation from 2006 that the patient is very sensitive to morphine causing respiratory depression. Most likely patient had received high-dose morphine at that point. Patient received IV fentanyl perioperatively without any issues. Will continue IV fentanyl Patient has also received oxycodone p.o. in the past 1 to 2 years. Added oxycodone p.o. to 6 Continue IV antibiotics Source control with amputation Will tailor antibiotics per wound culture results. ID consulted, awaiting recommendations Patient had angiography done with reconstitution's. Not a candidate for bypass Plan CODE STATUS: DNR/DNI DVT prophylaxis: Heparin subcu held until podiatry clearance Admission and Anticipated Discharge Date Admission Date: June 18, 2023 Subjective Patient got back from the vascular lab. He is complaining of pain in his foot. The nurse just gave gave him pain medications. Denies chest pain or shortness of breath. Review of Systems Review of Systems: All systems reviewed & are unremarkable except as noted in Subjective Physical Exam Physical Exam: General: Awake, conversant Heart: S1, S2/regular rate and rhythm, no murmur rubs or gallops Lungs: Clear to auscultation bilaterally. Normal effort Abdomen: Soft/nontender/nondistended. No hepatosplenomegaly Extremities: Dressing on the left foot. Behavior: Appropriate, cooperative Results & Data Results & Data Vital Signs (Past 12 Hours) Vital Signs Temp Pulse Pulse Pulse Resp BP BP 06/22/23 16:03 36.9 C 88 20 120/66 06/22/23 15:00 90 06/22/23 13:50 85 20 113/71 06/22/23 13:14 36.8 C 77 17 127/77 06/22/23 13:00 82 19 153/93 H 06/22/23 12:40 36.9 C 82 18 127/94 06/22/23 12:29 71 16 142/74 H 06/22/23 12:24 75 16 136/75 06/22/23 12:23 78 16 140/72 06/22/23 12:18 75 16 138/67 06/22/23 12:13 78 16 141/70 H 06/22/23 12:08 78 16 119/78 06/22/23 12:05 84 16 133/78 06/22/23 11:10 36.6 C 46 L 20 120/76 06/22/23 08:00 102 H 06/22/23 08:00 06/22/23 07:20 36.3 C L 83 18 130/80 06/22/23 07:00 102 H Pulse Ox O2 Del Method O2 Flow Rate 06/22/23 16:03 97 Room Air 06/22/23 15:00 06/22/23 13:50 98 Room Air 06/22/23 13:14 100 Room Air 06/22/23 13:00 100 Room Air 06/22/23 12:40 99 Room Air 06/22/23 12:29 99 Oxymask 4 06/22/23 12:24 98 Oxymask 4 06/22/23 12:23 98 Oxymask 4 06/22/23 12:18 100 Oxymask 4 06/22/23 12:13 94 Oxymask 4 06/22/23 12:08 100 Oxymask 4 06/22/23 12:05 100 Oxymask 4 06/22/23 11:10 99 Room Air 06/22/23 08:00 06/22/23 08:00 Room Air 06/22/23 07:20 99 Room Air 06/22/23 07:00 Laboratory Results Abnormal lab results 06/22/23 Range/Units 05:34 RBC 4.46 L (4.70-6.10) M/uL Hct 40.8 L (42.0-52.0) % Chloride 109 H (98-107) mmol/L Carbon Dioxide 19 L (21-32) mmol/L Glucose 144 H (70-99(Fasting)) mg/dl Calcium 8.2 L (8.6-10.3) mg/dl PG Care Time/CCT Total # of Minutes Spent Total Time Spent with Patient: Total time spent is greater than 50% in coordination of care (as documented) at patient's floor/unit and/or counseling patient: Coding Level of Care Code 31423 SUB INP/OBS CARE 2MIN Diagnoses Sepsis A41.9 Sepsis acute organ dysfunction status: without acute organ dysfunction Sepsis type: sepsis due to unspecified organism Duodenal ulcer K26.9 Controlled type 2 diabetes mellitus with neurologic complication, with long-term current use of insulin E11.49; Z79.4 Unintentional weight loss of 10% body weight within 6 months R63.4 Osteomyelitis M86.9 Laterality: left Osteomyelitis location: foot Osteomyelitis type: unspecified type (1) Sepsis Sepsis acute organ dysfunction status: without acute organ dysfunction Sepsis type: sepsis due to unspecified organism Qualified Code(s): A41.9 - Sepsis, unspecified organism (5) Osteomyelitis Laterality: left Osteomyelitis location: foot Osteomyelitis type: unspecified type Qualified Code(s): M86.9 - Osteomyelitis, unspecified
[2023-06-23] MEDS: PIPERACILLIN/TAZOBACTAM 4.5 GM in DEXTROSE 5% MINI-B 100 ML IV SCH ×3 (02:42→16:59)
--- NOTE | 2023-06-23 08:34 | Orthopedic Progress Note ---
Date of Service June 23, 2023 Assessment & Plan (1) Osteomyelitis: Plan: Patient seen at bedside in room 204-1 resting comfortably. Patient is status post day #4 (DOS: 06/19/23) left first and fifth toe amputations. Patient status post vascular procedure. 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 Patient may need more proximal amputation which he still may be unable to heal from due to PAD. Dressing changed completed. Adaptic, 4x4, kerlix, Zander. Will continue to follow up while in house. (2) Gangrene: Admission and Anticipated Discharge Date Admission Date: June 18, 2023 Subjective Patient seen at bedside in room 204-1 resting comfortably. Patient is status post day #4 (DOS: 06/19/23) left first and fifth toe amputations. Necrosis is noted at toe amputation sites. Patient status post vascular procedure. Physical Exam Constitutional: + frail appearing, cooperative and comfo rtable Eyes: normal visual leo by confrontation Neck: normal visual inspection Respiratory: normal respiratory effort Cardiovascular: Rate/Rhythm: regular rate and regular rhythm Musculoskeletal: Extremities: extremities normal to inspection, + amputation noted (Left first and fifth toes) and + foot abnormality Skin: + incision (necroitic) Neurologic: moves all extremities (Absent epicritic sensation) Psychiatric: Orientation: alert and oriented x 3 Results & Data Vital Signs (Past 12 Hours) Vital Signs Temp Pulse Pulse Resp BP Pulse Ox O2 Del Method 06/23/23 07:47 36.6 C 93 H 18 127/77 97 Room Air 06/23/23 02:43 36.4 C L 94 H 21 118/94 96 Room Air 06/22/23 23:29 35.9 C L 94 H 20 125/73 96 Room Air 06/22/23 23:00 102 H (1) Osteomyelitis Laterality: left Osteomyelitis location: foot Osteomyelitis type: unspecified type Qualified Code(s): M86.9 - Osteomyelitis, unspecified
[2023-06-23] MEDS: PANTOprazole 40 MG TAB PO SCH ×2 (08:42→20:12)
[2023-06-23] MEDS: SUCRALFATE 1 GM/10 ML UDC PO SCH ×4 (08:42→20:12)
[2023-06-23] MEDS ORDERED: cefTRIAXone SODIUM 1,000 MG in DEXTROSE 5 % MINI-B 50 ML IV SCH (08:45)
[2023-06-23] MEDS: oxyCODONE HCL IR 5 MG TAB (IMMEDIATE RELEASE) PO PRN ×2 (11:38→20:20)
--- NOTE | 2023-06-23 12:49 | Hospitalist Progress Note ---
Date of Service June 23, 2023 Assessment & Plan (1) Sepsis: Plan: Patient presented with tachypnea elevated lactic acid rigors Patient received IV fluids Sepsis has resolved Blood cultures from 06/18 negative Surgical wound cultures growing group C beta strep. ID consulted. Recommended continuing IV antibiotics for 2 more days since source control has been achieved. Continue IV antibiotics: Daptomycin, Zosyn Source was the left foot gangrene/osteomyelitis Patient had first and fifth toe amputation done on 06/[address] Price. Vascular surgery did an angiography. Not a candidate for bypass. Vasculopathy remains. If no healing or if his foot were to worsen, he may require left lower extremity amputation. Podiatry watching his wounds. (2) Duodenal ulcer: Plan: Diagnosed in August persistent issue with this patient with profound outpatient weight loss. Patient stopped taking all medications bothered by daily abdominal pain. Was seen by GI in August 2022 and the risks were discussed of untreated gastric ulcer and esophagitis. However he declined initiating proton pump inhibitor. This is acute on chronic will use Carafate. Started Protonix p.o. twice daily. Patient does not want any further workup for his stomach issues. Per nurse he has had poor oral intake because of stomach pain. The patient has been quite whimsical and caring for him has become quite challenging (3) Controlled type 2 diabetes mellitus with neurologic complication, with long- term current use of insulin: Plan: Due to duodenal ulcer and abdominal pain patient is lost a significant amount of weight over the last 1 year and has now been off all diabetic medications with last hemoglobin A1c of 5.6 in November 2022. Will check q. ACHS glucose checks and have loose sliding scale if needed A1c 7 Per nurse, patient has been declining insulin (4) Unintentional weight loss of 10% body weight within 6 months: Plan: Due to abdominal pain from duodenal ulcers. Patient has not been taking medications at home. He is declining any further workup for his stomach issues (5) Osteomyelitis: Plan: Status post first and fifth toe amputation on the left foot. Noted that there is documentation from 2006 that the patient is very sensitive to morphine causing respiratory depression. Most likely patient had received high-dose morphine at that point. Patient received IV fentanyl without any complications. Will discontinue and encourage p.o. analgesics as needed Patient has also received oxycodone p.o. in the past 1 to 2 years. Added oxycodone p.o. to 6 Continue IV antibiotics Source control with amputation ID recommends continuing IV antibiotics for 2 more days. Angiography revealed vasculopathy that could not be intervened on. Podiatry is watching the wound and if no healing, will need further amputations. Plan CODE STATUS: DNR/DNI DVT prophylaxis: Heparin subcu held until podiatry clearance Admission and Anticipated Discharge Date Admission Date: June 18, 2023 Subjective Patient feels well. Denies chest pain or shortness of breath. He complains of nausea. Says that he has had issues with nausea at home but does not want any workup or intervention for it. Review of Systems Review of Systems: All systems reviewed & are unremarkable except as noted in Subjective Physical Exam Physical Exam: General: Awake, conversant Heart: S1, S2/regular rate and rhythm, no murmur rubs or gallops Lungs: Clear to auscultation bilaterally. Normal effort Abdomen: Soft/nontender/nondistended. No hepatosplenomegaly Extremities: Dressing on the left foot. Behavior: Appropriate, cooperative Results & Data Results & Data Vital Signs (Past 12 Hours) Vital Signs Temp Pulse Pulse Resp BP Pulse Ox O2 Del Method 06/23/23 11:48 37 C 96 H 18 119/75 97 Room Air 06/23/23 07:47 36.6 C 93 H 18 127/77 97 Room Air 06/23/23 07:00 Room Air 06/23/23 07:00 93 H 06/23/23 02:43 36.4 C L 94 H 21 118/94 96 Room Air PG Care Time/CCT Total # of Minutes Spent Total Time Spent with Patient: Total time spent is greater than 50% in coordination of care (as documented) at patient's floor/unit and/or counseling patient: Coding Level of Care Code 82588 SUB INP/OBS CARE 2/35MIN Diagnoses Sepsis A41.9 Sepsis acute organ dysfunction status: without acute organ dysfunction Sepsis type: sepsis due to unspecified organism Duodenal ulcer K26.9 Controlled type 2 diabetes mellitus with neurologic complication, with long-term current use of insulin E11.49; Z79.4 Unintentional weight loss of 10% body weight within 6 months R63.4 Osteomyelitis M86.9 Laterality: left Osteomyelitis location: foot Osteomyelitis type: unspecified type (1) Sepsis Sepsis acute organ dysfunction status: without acute organ dysfunction Sepsis type: sepsis due to unspecified organism Qualified Code(s): A41.9 - Sepsis, unspecified organism (5) Osteomyelitis Laterality: left Osteomyelitis location: foot Osteomyelitis type: unspecified type Qualified Code(s): M86.9 - Osteomyelitis, unspecified
[2023-06-23] MEDS: DAPTOmycin 425 MG in SYRINGE 0 ML IV SCH (13:27)
[2023-06-23] MEDS: HEPARIN SOD 5,000 UNIT/0.5 ML VIAL SQ SCH ×2 (14:30→21:04)
[2023-06-24] MEDS: PIPERACILLIN/TAZOBACTAM 4.5 GM in DEXTROSE 5% MINI-B 100 ML IV SCH ×3 (01:55→17:48)
[2023-06-24] MEDS: HEPARIN SOD 5,000 UNIT/0.5 ML VIAL SQ SCH ×3 (05:29→21:01)
[2023-06-24] MEDS: oxyCODONE HCL IR 5 MG TAB (IMMEDIATE RELEASE) PO PRN (05:37)
[2023-06-24] MEDS: SUCRALFATE 1 GM/10 ML UDC PO SCH ×4 (07:44→21:00)
[2023-06-24] MEDS: PANTOprazole 40 MG TAB PO SCH ×2 (07:44→21:00)
--- NOTE | 2023-06-24 13:26 | Hospitalist Progress Note ---
Date of Service June 24, 2023 Assessment & Plan (1) Sepsis: Plan: Patient presented with tachypnea elevated lactic acid rigors Patient received IV fluids Sepsis has resolved Blood cultures from 06/18 negative Surgical wound cultures growing group C beta strep. ID consulted. Recommended continuing IV antibiotics for 2 more days since source control has been achieved. Continue IV antibiotics: Daptomycin, Zosyn Source was the left foot gangrene/osteomyelitis Patient had first and fifth toe amputation done on 06/[address] Price. Vascular surgery did an angiography. Not a candidate for bypass. Vasculopathy remains. If no healing or if his foot were to worsen, he may require left lower extremity amputation. Podiatry watching his wounds. Has concerns for ongoing necrosis at the amputation sites. (2) Duodenal ulcer: Plan: Diagnosed in August persistent issue with this patient with profound outpatient weight loss. Patient stopped taking all medications bothered by daily abdominal pain. Was seen by GI in August 2022 and the risks were discussed of untreated gastric ulcer and esophagitis. However he declined initiating proton pump inhibitor. This is acute on chronic will use Carafate. Started Protonix p.o. twice daily. Patient does not want any further workup for his stomach issues. Per nurse he has had poor oral intake because of stomach pain. The patient has been quite whimsical and caring for him has become quite challenging (3) Controlled type 2 diabetes mellitus with neurologic complication, with long- term current use of insulin: Plan: Due to duodenal ulcer and abdominal pain patient is lost a significant amount of weight over the last 1 year and has now been off all diabetic medications with last hemoglobin A1c of 5.6 in November 2022. Will check q. ACHS glucose checks and have loose sliding scale if needed A1c 7 Per nurse, patient has been declining insulin (4) Unintentional weight loss of 10% body weight within 6 months: Plan: Due to abdominal pain from duodenal ulcers. Patient has not been taking medications at home. He is declining any further workup for his stomach issues (5) Osteomyelitis: Plan: Status post first and fifth toe amputation on the left foot. Noted that there is documentation from 2006 that the patient is very sensitive to morphine causing respiratory depression. Most likely patient had received high-dose morphine at that point. Patient received IV fentanyl without any complications. Will discontinue and encourage p.o. analgesics as needed Patient has also received oxycodone p.o. in the past 1 to 2 years. Added oxycodone p.o. to 6 Continue IV antibiotics Source control with amputation ID recommends continuing IV antibiotics for 2 more days. Angiography revealed vasculopathy that could not be intervened on. Podiatry is watching the wound and if no healing, will need further amputations. Podiatry has concerns for ongoing necrosis of the amputation sites. Plan CODE STATUS: DNR/DNI DVT prophylaxis: Heparin subcu held until podiatry clearance Admission and Anticipated Discharge Date Admission Date: June 18, 2023 Subjective Patient complains of pain at the surgical site. No other complaints Review of Systems Review of Systems: All systems reviewed & are unremarkable except as noted in Subjective Physical Exam Physical Exam: General: Awake, conversant Heart: S1, S2/regular rate and rhythm, no murmur rubs or gallops Lungs: Clear to auscultation bilaterally. Normal effort Abdomen: Soft/nontender/nondistended. No hepatosplenomegaly Extremities: Dressing on the left foot. Behavior: Appropriate, cooperative Results & Data Results & Data Vital Signs (Past 12 Hours) Vital Signs Temp Pulse Pulse Resp BP Pulse Ox O2 Del Method 06/24/23 11:14 37 C 91 H 18 116/63 97 Room Air 06/24/23 07:25 76 06/24/23 07:19 37 C 85 18 102/69 95 Room Air 06/24/23 02:00 36.4 C L 81 23 113/53 L 97 Room Air PG Care Time/CCT Total # of Minutes Spent Total Time Spent with Patient: Total time spent is greater than 50% in coordination of care (as documented) at patient's floor/unit and/or counseling patient: Coding Level of Care Code 34171 SUB INP/OBS CARE 2/35MIN Diagnoses Sepsis A41.9 Sepsis acute organ dysfunction status: without acute organ dysfunction Sepsis type: sepsis due to unspecified organism Duodenal ulcer K26.9 Controlled type 2 diabetes mellitus with neurologic complication, with long-term current use of insulin E11.49; Z79.4 Unintentional weight loss of 10% body weight within 6 months R63.4 Osteomyelitis M86.9 Laterality: left Osteomyelitis location: foot Osteomyelitis type: unspecified type (1) Sepsis Sepsis acute organ dysfunction status: without acute organ dysfunction Sepsis type: sepsis due to unspecified organism Qualified Code(s): A41.9 - Sepsis, unspecified organism (5) Osteomyelitis Laterality: left Osteomyelitis location: foot Osteomyelitis type: unspecified type Qualified Code(s): M86.9 - Osteomyelitis, unspecified
[2023-06-24] MEDS: DAPTOmycin 425 MG in SYRINGE 0 ML IV SCH (14:09)
[2023-06-25] MEDS: PIPERACILLIN/TAZOBACTAM 4.5 GM in DEXTROSE 5% MINI-B 100 ML IV SCH ×3 (01:44→17:34)
[2023-06-25] MEDS: HEPARIN SOD 5,000 UNIT/0.5 ML VIAL SQ SCH ×3 (05:40→21:05)
[2023-06-25 06:43] LABS: Basophils # (auto) 0.03 K/uL (0.00-0.20); Basophils % (auto) 0.5 %; Eosinophils % (auto) 1.7 %; Hematocrit (blood only) 38.8 % (42.0-52.0); Hemoglobin 13.6 g/dl (14.0-18.0); Immature Granulocytes # (auto) 0.05 K/uL (0.01-0.20); Immature Granulocytes % (auto) 0.8 %; Lymphocytes # (auto) 1.07 K/uL (1.20-3.40); Lymphocytes % (auto) 17.8 %; Mean Corpuscular Hemoglobin 31.3 pg (25.0-34.0); Mean Corpuscular Hgb Conc 35.1 g/dL (32.0-36.0); Mean Corpuscular Volume 89.4 fL (80.0-100.0); Mean Platelet Volume 10.8 fL (9.4-12.4); Monocytes # (auto) 0.42 K/uL (0.11-0.59); Neutrophils # (auto) 4.34 K/uL (1.40-6.50); Neutrophils % (auto) 72.2 %; Platelet Count 186 K/uL (130-400); RDW Standard Deviation 42.8 fL (36.4-46.3); Red Blood Count 4.34 M/uL (4.70-6.10); White Blood Count 6.01 K/ul (4.8-10.8)
[2023-06-25 07:14] LABS: BUN Creatinine Ratio 26.1 (10-20); Calcium 8.4 mg/dl (8.6-10.3); Creatinine Clr Calc Pharmacy 65.4 ml/min; Est GFR (African American) 92.7 ml/min; Est GFR (Non-African American) 79.9 ml/min; Potassium 3.6 mmol/L (3.5-5.1)
--- NOTE | 2023-06-25 08:53 | Orthopedic Progress Note ---
Date of Service June 25, 2023 Assessment & Plan (1) Osteomyelitis: Plan: Patient seen at bedside in room 204-1 resting comfortably. Patient is status post day #6 (DOS: 06/19/23) left first and fifth toe amputations. Patient status post vascular procedure and necrosis continues at surgical amputation site presumably due to severed PAD. We discussed more proximal amputation which he still may be unable to heal from due to PAD. Patient may fail transmetatarsal amputation but he would like to try before progressing to BKA. Will schedule for 06/26/23. Dressing changed completed. Adaptic, 4x4, kerlix, Zadner. Will continue to follow up while in house. (2) Gangrene: Admission and Anticipated Discharge Date Admission Date: June 18, 2023 Subjective Patient seen at bedside in room E204-1. Patient is status post day #6 (DOS: 06/19/23) left first and fifth toe amputations. Patient complains of pain at the surgical site. Physical Exam Constitutional: + frail appearing, cooperative and comfo rtable Eyes: normal visual leo by confrontation Neck: normal visual inspection Respiratory: normal respiratory effort Cardiovascular: Rate/Rhythm: regular rate and regular rhythm Musculoskeletal: Extremities: extremities normal to inspection, + amputation noted (Left first and fifth toes) and + foot abnormality Skin: + incision (necroitic) Neurologic: moves all extremities (Absent epicritic sensation) Psychiatric: Orientation: alert and oriented x 3 Results & Data Vital Signs (Past 12 Hours) Vital Signs Temp Pulse Pulse Pulse Resp BP BP 06/25/23 07:21 36.6 C 67 18 122/67 06/25/23 04:15 36.5 C 85 20 104/59 L 06/24/23 23:00 84 06/24/23 22:00 36.6 C 85 18 99/75 L Pulse Ox O2 Del Method 06/25/23 07:21 98 Room Air 06/25/23 04:15 95 Room Air 06/24/23 23:00 06/24/23 22:00 96 Room Air (1) Osteomyelitis Laterality: left Osteomyelitis location: foot Osteomyelitis type: unspecified type Qualified Code(s): M86.9 - Osteomyelitis, unspecified
[2023-06-25] MEDS: oxyCODONE HCL IR 5 MG TAB (IMMEDIATE RELEASE) PO PRN (09:01)
[2023-06-25] MEDS: PANTOprazole 40 MG TAB PO SCH ×2 (09:01→20:16)
[2023-06-25] MEDS: SUCRALFATE 1 GM/10 ML UDC PO SCH ×4 (09:01→20:16)
[2023-06-25] MEDS: DAPTOmycin 425 MG in SYRINGE 0 ML IV SCH (14:08)
--- NOTE | 2023-06-25 15:28 | Hospitalist Progress Note ---
Date of Service June 25, 2023 Assessment & Plan (1) Sepsis: Plan: Patient presented with tachypnea elevated lactic acid rigors Patient received IV fluids Sepsis has resolved Blood cultures from 06/18 negative Surgical wound cultures growing group C beta strep. ID consulted. Recommended continuing IV antibiotics till 06/25 since source control has been achieved. Continue IV antibiotics: Daptomycin, Zosyn. Will let it today. Source was the left foot gangrene/osteomyelitis Patient had first and fifth toe amputation done on 06/[address] Price. Vascular surgery did an angiography. Not a candidate for bypass. Vasculopathy remains. Patient still has ongoing necrosis and gangrene Decision was made by podiatry to proceed with left TMA. Scheduled for tomorrow 06/26 (2) Duodenal ulcer: Plan: Diagnosed in August persistent issue with this patient with profound outpatient weight loss. Patient stopped taking all medications bothered by daily abdominal pain. Was seen by GI in August 2022 and the risks were discussed of untreated gastric ulcer and esophagitis. However he declined initiating proton pump inhibitor. This is acute on chronic will use Carafate. Started Protonix p.o. twice daily. Patient does not want any further workup for his stomach issues. Per nurse he has had poor oral intake because of stomach pain. The patient has been quite whimsical and caring for him has become quite challenging (3) Controlled type 2 diabetes mellitus with neurologic complication, with long- term current use of insulin: Plan: Due to duodenal ulcer and abdominal pain patient is lost a significant amount of weight over the last 1 year and has now been off all diabetic medications with last hemoglobin A1c of 5.6 in November 2022. Will check q. ACHS glucose checks and have loose sliding scale if needed A1c 7 Per nurse, patient has been declining insulin (4) Unintentional weight loss of 10% body weight within 6 months: Plan: Due to abdominal pain from duodenal ulcers. Patient has not been taking medications at home. He is declining any further workup for his stomach issues (5) Osteomyelitis: Plan: Status post first and fifth toe amputation on the left foot. Noted that there is documentation from 2006 that the patient is very sensitive to morphine causing respiratory depression. Most likely patient had received high-dose morphine at that point. Patient received IV fentanyl without any complications. Will discontinue and encourage p.o. analgesics as needed Patient has also received oxycodone p.o. in the past 1 to 2 years. Added oxycodone p.o. to 6 Continue IV antibiotics Source control with amputation ID recommends continuing IV antibiotics till 06/25. Will let it today. Angiography revealed vasculopathy that could not be intervened on. Podiatry is concerned about ongoing necrosis and gangrene. Plans on left TMA 06/26 Plan CODE STATUS: DNR/DNI DVT prophylaxis: Heparin subcu held until podiatry clearance Admission and Anticipated Discharge Date Admission Date: June 18, 2023 Subjective Patient is upset about needing further amputations. Denies chest pain or shortness of breath. Review of Systems Review of Systems: All systems reviewed & are unremarkable except as noted in Subjective Physical Exam Physical Exam: General: Awake, conversant Heart: S1, S2/regular rate and rhythm, no murmur rubs or gallops Lungs: Clear to auscultation bilaterally. Normal effort Abdomen: Soft/nontender/nondistended. No hepatosplenomegaly Extremities: Dressing on the left foot. Behavior: Appropriate, cooperative Results & Data Results & Data Vital Signs (Past 12 Hours) Vital Signs Temp Pulse Pulse Pulse Resp BP BP 06/25/23 11:48 06/25/23 11:16 36.5 C 76 18 111/66 06/25/23 07:21 36.6 C 67 18 122/67 06/25/23 07:00 84 06/25/23 04:15 36.5 C 85 20 104/59 L Pulse Ox O2 Del Method 06/25/23 11:48 Room Air 06/25/23 11:16 96 Room Air 06/25/23 07:21 98 Room Air 06/25/23 07:00 06/25/23 04:15 95 Room Air Laboratory Results Abnormal lab results 06/25/23 Range/Units 05:52 RBC 4.34 L (4.70-6.10) M/uL Hgb 13.6 L (14.0-18.0) g/dl Hct 38.8 L (42.0-52.0) % Lymph # (Auto) 1.07 L (1.20-3.40) K/uL Chloride 108 H (98-107) mmol/L BUN 24 H (6-23) mg/dl BUN/Creatinine Ratio 26.1 H (10-20) Glucose 167 H (70-99(Fasting)) mg/dl Calcium 8.4 L (8.6-10.3) mg/dl PG Care Time/CCT Total # of Minutes Spent Total Time Spent with Patient: Total time spent is greater than 50% in coordination of care (as documented) at patient's floor/unit and/or counseling patient: Coding Level of Care Code 16217 SUB INP/OBS CARE 2/35MIN Diagnoses Sepsis A41.9 Sepsis acute organ dysfunction status: without acute organ dysfunction Sepsis type: sepsis due to unspecified organism Duodenal ulcer K26.9 Controlled type 2 diabetes mellitus with neurologic complication, with long-term current use of insulin E11.49; Z79.4 Unintentional weight loss of 10% body weight within 6 months R63.4 Osteomyelitis M86.9 Laterality: left Osteomyelitis location: foot Osteomyelitis type: unspecified type (1) Sepsis Sepsis acute organ dysfunction status: without acute organ dysfunction Sepsis type: sepsis due to unspecified organism Qualified Code(s): A41.9 - Sepsis, unspecified organism (5) Osteomyelitis Laterality: left Osteomyelitis location: foot Osteomyelitis type: unspecified type Qualified Code(s): M86.9 - Osteomyelitis, unspecified
[2023-06-26] MEDS: HEPARIN SOD 5,000 UNIT/0.5 ML VIAL SQ SCH ×3 (05:06→21:32)
[2023-06-26] MEDS: SUCRALFATE 1 GM/10 ML UDC PO SCH ×4 (08:28→21:33)
[2023-06-26] MEDS: oxyCODONE HCL IR 5 MG TAB (IMMEDIATE RELEASE) PO PRN ×2 (08:28→18:16)
[2023-06-26] MEDS: PANTOprazole 40 MG TAB PO SCH ×2 (08:28→21:33)
--- NOTE | 2023-06-26 09:40 | Anesthesiology Consultation ---
Date of Service June 26, 2023 Assessment & Plan Chart Review Chart Review: Acceptable Risk for Surgery and Patient NOT seen in Pre Admission Testing Consults Requested none History Surgery Operation Date: 06/19/23 08:50 Proposed Procedures p Left 1st and 2nd Toe Amputation - Raffy Price DPM, MS Operation Date: 06/22/23 11:40 Proposed Procedures p Left Leg Arteriogram - Duane Sher MD Operation Date: 06/26/23 07:00 Proposed Procedures p Left Transmetatarsal Amputation - Raffy Price DPM, MS Height/Weight Height: 5 ft 9 in Weight: 74.2 kg Allergies Allergy/AdvReac Type Severity Reaction Status Date / Time morphine AdvReac Severe "STOPS MY Verified 06/18/23 15:02 HEART" diazepam AdvReac Intermediate HALLUCINATE Verified 06/18/23 15:02 S hydromorphone [From Dilaudid] AdvReac Intermediate unresponsiv Verified 06/18/23 15:02 eness propoxyphene AdvReac Intermediate DRUG Verified 06/18/23 15:02 INTOLERANCE trazodone AdvReac Intermediate GI UPSET Verified 06/18/23 15:02 Medications Home Medications Medication Instructions Recorded Confirmed Last Taken acetaminophen 500 mg tablet 1,000 mg PO Q8H PRN Pain 06/05/19 06/18/23 11/03/20 (Tylenol Extra Strength) nitroglycerin 0.4 mg sublingual 0.4 mg sublingual UD PRN Chest Pain 11/04/20 06/18/23 Unknown tablet (Nitrostat) pen needle, diabetic 31 gauge x #400 ea 07/11/21 11/28/22 Unknown 08/31" (BD Ultra-Fine Mini Pen Needle) cyanocobalamin (vitamin B-12) 1,000 mcg PO QAM 08/10/21 06/18/23 06/29/22 1,000 mcg tablet (Vitamin B-12) blood sugar diagnostic (OneTouch #100 ea 08/26/21 11/28/22 Unknown Ultra Test strips) [id number] 300 mcg-K 60 1 tab PO DAILY 09/01/21 06/18/23 06/29/22 mcg-lycop 600 mcg-lutein 300 mcg tablet (Centrum Silver Men) Super Beta Prostate 1 tab PO QAM 09/05/21 06/18/23 06/29/22 insulin glargine 100 unit/mL (3 15 unit subcut QPM 10/12/21 06/18/23 06/29/22 mL) subcutaneous pen (Lantus Solostar U-100 Insulin) insulin lispro 100 unit/mL 5 - 7 unit subcut TID 10/12/21 06/18/23 06/29/22 subcutaneous pen (Humalog KwikPen (U-100) Insulin) clopidogrel 75 mg tablet 75 mg PO DAILY #90 tabs 12/09/21 06/18/23 06/29/22 tamsulosin 0.4 mg capsule 0.4 mg PO DAILY #90 caps 12/09/21 06/18/23 06/29/22 atorvastatin 40 mg tablet (Lipitor) 40 mg PO QAM 04/12/22 06/18/23 06/29/22 pantoprazole 40 mg tablet,delayed 40 mg PO DAILY #30 tabs 09/26/22 06/18/23 Unknown release Active Medications Generic Name Dose Route Start Last Admin Trade Name Yaronq PRN Reason Stop Dose Admin Acetaminophen 650 mg 06/18/23 17:29 06/22/23 06:48 Acetaminophen 325 Mg Tab PO 07/18/23 17:28 650 mg Q4H PRN Administration Pain or Fever Heparin Sodium (Porcine) 5,000 units 06/23/23 14:00 06/26/23 05:06 Heparin Sod 5,000 Unit/0.5 Ml Vial SQ 07/23/23 13:59 Not Given Q8 NIKOLAI Iodixanol 100 ml 06/22/23 12:14 06/22/23 13:05 Visipaque IV 06/26/23 12:13 35 ml UD PRN Administration Interaction Checking Oxycodone HCl 5 mg 06/21/23 07:56 06/26/23 08:28 Oxycodone Hcl Ir 5 Mg Tab (Immediate Release) PO 07/05/23 07:55 5 mg Q6 PRN Administration Pain Pantoprazole Sodium 40 mg 06/21/23 12:15 06/26/23 08:28 Pantoprazole 40 Mg Tab PO 07/21/23 12:14 40 mg BID NIKOLAI Administration Sucralfate 1 gm 06/18/23 17:29 06/26/23 08:28 Sucralfate 1 Gm/10 Ml Udc PO 07/18/23 17:28 1 gm ACHS NIKOLAI Administration NPO Date Last Intake of Fluids: 06/21/23 Time Last Intake of Fluids: 18:00 Date Last Intake of Solids: 06/21/23 Time Last Intake of Solids: 18:00 Past Medical History Medical History (Updated 06/22/23 @ 15:[address]) Poor historian GERD (gastroesophageal reflux disease) On anticoagulant therapy Kidney stones hx History of COVID-06 May 2022 at a [facility] in [place], [facility]. Peripheral neuropathy Prostate cancer pt did not acknowledge. Sepsis hx Schizoaffective disorder pt denies JUANCARLOS (acute kidney injury) BPH (benign prostatic hyperplasia) Amputated toe of left foot Cellulitis Osteomyelitis hx Diabetic ulcer of toe hx History of diverticulosis Mild cognitive impairment alert and oriented x3 -- "forgetful about his history" Stroke HX X 2-11/2004 AND 09/2019-F/U DR NÚÑEZ Orthostatic dizziness at times Failure of outpatient treatment Venous stasis ulcers of both lower extremities hx in 2019 Venous (peripheral) insufficiency Recurrent falls Parkinsonism per medical record - pt unaware Intermittent explosive disorder Delusional disorder, somatic type not currently -- pt unaware -- pt alert and oriented x3 at this time. Alcohol abuse pt states he quit "a long time ago" Chronic diastolic CHF (congestive heart failure) Benign colonic polyp Dyslipidemia History of tobacco use Nephrolithiasis Raynauds phenomenon Stage III chronic kidney disease Tubular adenoma of colon History of CVA (cerebrovascular accident) hx in 2004 and 2019 --> follows with Dr Núñez. Migraines hx Acute on chronic renal insufficiency pt unsure Osteoarthritis Diabetes mellitus, type 2 Hypertension Hyperlipidemia Myocardial Infarction 2004--follows with Dr. Mejia Past Family History Family History Father , age 74 of an SC Diabetes Prostate cancer Colorectal cancer Myocardial infarction Brother Prostate cancer Uncle Colorectal cancer Father Myocardial infarction Mother Myocardial infarction Stroke Other Dementia No family history of adverse response to anesthesia Denies family history of Ovarian cancer Breast cancer Past Surgical History Surgical History H/O left cataract extraction S/P CABG (coronary artery bypass graft) 4 [facility] [place] 2018 S/P sinus surgery History of lumbar discectomy x2 History of carpal tunnel release of both wrists History of open reduction and internal fixation (ORIF) procedure left ankle--hardware in place History of arthroscopy of left knee History of lithotripsy x2 History of colonoscopy History of tonsillectomy and adenoidectomy Status post uvulopalatopharyngoplasty History of right cataract extraction History of heart artery stent (1998) x1 stent History of cardiac cath x4-5, last 05/19/2019 [facility] NO RECENT STENTS Social History Smoking Status: Former smoker tobacco type: cigarettes Smoking cigarettes per day: 3 Do You Dip or Chew Tobacco: No (quit "a long time ago") Hx Alcohol Use: No Alcohol type: beer alcohol intake frequency: other Hx Substance Use: No substance use type: other Physical Exam Vital Signs Last Vital Signs Temp 36.6 C 06/26/23 07:47 Pulse 79 06/26/23 07:47 Resp 18 06/26/23 07:47 BP 112/65 06/26/23 07:47 Pulse Ox 97 06/26/23 07:47 O2 Del Method Room Air 06/26/23 07:47 O2 Flow Rate 4 06/22/23 12:29 Constitutional WD/WN, vitals as above + frail appearing, cooperative and comfortable; no acute distress and not in distress Eyes normal visual leo by confrontation ENMT Mouth: no dentition abnormality Thyromental Distance: > or= 3.5 Finger Breadths Mallampati Class: III Neck normal visual inspection and trachea midline Respiratory normal respiratory effort, lungs clear to auscultation normal respiratory effort; no respiratory distress Auscultation: lungs clear to auscultation bilaterally and + diminished lung sounds Cardiovascular RRR, no murmur, no edema Rate/Rhythm: regular rate and regular rhythm Heart Sounds: no murmur Vessels: femoral pulses present and posterior tibial pulses present (RLE dopplerable, LLE faint monophasic doppler signal); + abnormal peripheral pulses and + dorsalis pedis pulses abnormal (RLE dopplerable to ankle, nothing on foot. LLE faint monophasic dopplerankl) Extremities: normal capillary refill (RLE 4 seconds, LLE dressing in place) Gastrointestinal (Abdomen) Inspection/Auscultation: abdomen normal to inspection and normal bowel sounds Percussion/Palpation: abdomen soft; abdomen nontender Musculoskeletal Spine: normal cervical ROM Extremities: extremities normal to inspection, strength 5/5 throughout, + amputation noted (Left first and fifth toes) and + foot abnormality Skin + incision (necroitic) Neurologic moves all extremities (Absent epicritic sensation) and awake; no focal motor deficits and not confused Psychiatric Orientation: alert and oriented x 3 Eye Contact: + fair eye contact Affect: + anxious affect, + labile affect and + irritable affect Thought Process: + thought process not linear or logical Thought Content: + preoccupation and + paranoid Testing Laboratory Results 06/25/23 05:52 06/25/23 05:52 PT 12.4 Seconds (9.0-12.0) H 06/18/23 14:15 INR 1.1 (0.9-1.1) 06/18/23 14:15 APTT 32 Seconds (21-31) H 06/18/23 14:15 Hemoglobin A1c 7.1 % (4.5-5.6) H 06/20/23 05:44 Urine Color Yellow 06/18/23 22:27 Urine Appearance Cloudy (Clear) A 06/18/23 22:27 Urine pH 5.5 (4.5-7.5) 06/18/23 22:27 Ur Specific [place] 1.023 (1.000-1.030) 06/18/23 22:27 Urine Protein Negative (Negative) 06/18/23 22:27 Urine Glucose (UA) Negative (Negative) 06/18/23 22:27 Urine Ketones 1+ (Negative) H 06/18/23 22:27 Urine Nitrite Negative (Negative) 06/18/23 22:27 Ur Leukocyte Esterase 2+ (Negative) H 06/18/23 22:27 Urine WBC (Auto) 10-30 /hpf (0-5) H 06/18/23 22:27 Urine RBC (Auto) 0-4 /hpf (0-4) 06/18/23 22:27 U Hyaline Cast (Auto) 1-5 /lpf (0-5) 06/18/23 22:27 U Epithel Cells (Auto) 20-30 /lpf (0-5) H 06/18/23 22:27 Urine Bacteria (Auto) Negative (Negative) 06/18/23 22:27 06/19/23 Unknown Gram Stain - Final Toe,Left Fifth Aerobic and Anaerobic Culture - Final Group C Beta Strep 06/19/23 Unknown Gram Stain - Final Toe,Left Great Aerobic and Anaerobic Culture - Final Group C Beta Strep 06/18/23 11:46 Aerobic Blood Culture - Final Blood No growth in Aerobic bottle after 5 days. Anaerobic Blood Culture - Final No growth in Anaerobic bottle after 5 days. 06/18/23 12:24 Aerobic Blood Culture - Final Blood No growth in Aerobic bottle after 5 days. Anaerobic Blood Culture - Final 06/18/23 22:27 Urine Culture - Final Urine,Clean Catch No growth - less than 1,000 colonies/mL. Electrocardiogram Date: 06/18/23 Findings: + NSR @ and + RBBB Sinus rhythm with Premature atrial complexes in a pattern of bigeminy Incomplete right bundle branch block Old Inferior infarct Poor R wave progression, consider anterior SC vs. lead placement vs. LVH Abnormal ECG
[2023-06-26] MEDS: cefTRIAXone SODIUM 1,000 MG in DEXTROSE 5 % MINI-B 50 ML IV SCH (11:47)
[2023-06-26] MEDS ORDERED: PROPOFOL IV EMULSION 10 MG/ML 20 ML VIAL IV ONE (13:50)
[2023-06-26] MEDS ORDERED: DEXAMETHASONE SOD INJ 4 MG/ML VIAL ONE (13:51)
[2023-06-26] MEDS ORDERED: ONDANSETRON INJ 2 MG/ML 2 ML VIAL ONE (13:51)
[2023-06-26] MEDS ORDERED: LIDOCAINE 2% 2 ML VIAL/AMP(20MG/ML) INFIL ONE (13:51)
--- NOTE | 2023-06-26 15:04 | Hospitalist Progress Note ---
Date of Service June 26, 2023 Assessment & Plan (1) Sepsis: Plan: Patient presented with tachypnea elevated lactic acid rigors Patient received IV fluids Sepsis has resolved Blood cultures from 06/18 negative Surgical wound cultures growing group C beta strep. ID ID recommended continuing IV antibiotics since patient will need further amputations. Will switch from IV Dapto and Zosyn to ceftriaxone Source was the left foot gangrene/osteomyelitis Patient had first and fifth toe amputation done on 06/[address] Price. Vascular surgery did an angiography. Not a candidate for bypass. Vasculopathy remains. Patient still has ongoing necrosis and gangrene Decision was made by podiatry to proceed with left TMA 06/26 (2) Duodenal ulcer: Plan: Diagnosed in August persistent issue with this patient with profound outpatient weight loss. Patient stopped taking all medications bothered by daily abdominal pain. Was seen by GI in August 2022 and the risks were discussed of untreated gastric ulcer and esophagitis. However he declined initiating proton pump inhibitor. This is acute on chronic will use Carafate. Started Protonix p.o. twice daily. Patient does not want any further workup for his stomach issues. Per nurse he has had poor oral intake because of stomach pain. The patient has been quite whimsical and caring for him has become quite challenging (3) Controlled type 2 diabetes mellitus with neurologic complication, with long- term current use of insulin: Plan: Due to duodenal ulcer and abdominal pain patient is lost a significant amount of weight over the last 1 year and has now been off all diabetic medications with last hemoglobin A1c of 5.6 in November 2022. Will check q. ACHS glucose checks and have loose sliding scale if needed A1c 7 Per nurse, patient has been declining insulin (4) Unintentional weight loss of 10% body weight within 6 months: Plan: Due to abdominal pain from duodenal ulcers. Patient has not been taking medications at home. He is declining any further workup for his stomach issues (5) Osteomyelitis: Plan: Status post first and fifth toe amputation on the left foot. Noted that there is documentation from 2006 that the patient is very sensitive to morphine causing respiratory depression. Most likely patient had received high-dose morphine at that point. Patient received IV fentanyl without any complications. Will discontinue and encourage p.o. analgesics as needed Patient has also received oxycodone p.o. in the past 1 to 2 years. Added oxycodone p.o. to 6 Continue IV antibiotics Source control with amputation ID recommends continuing IV antibiotics since the patient is requiring further amputations. Angiography revealed vasculopathy that could not be intervened on. Podiatry plans on left TMA today 06/26 Plan CODE STATUS: DNR/DNI DVT prophylaxis: Heparin subcu held until podiatry clearance Admission and Anticipated Discharge Date Admission Date: June 18, 2023 Subjective Patient feels well. Denies chest pain or shortness of breath. Review of Systems Review of Systems: All systems reviewed & are unremarkable except as noted in HPI & below Physical Exam Physical Exam: General: Awake, conversant Heart: S1, S2/regular rate and rhythm, no murmur rubs or gallops Lungs: Clear to auscultation bilaterally. Normal effort Abdomen: Soft/nontender/nondistended. No hepatosplenomegaly Extremities: Dressing on the left foot. Behavior: Appropriate, cooperative Results & Data Results & Data Vital Signs (Past 12 Hours) Vital Signs Temp Pulse Pulse Resp BP Pulse Ox O2 Del Method 06/26/23 11:51 36.7 C 75 18 95/58 L 97 Room Air 06/26/23 08:00 79 06/26/23 08:00 Room Air 06/26/23 07:47 36.6 C 79 18 112/65 97 Room Air 06/26/23 07:00 79 PG Care Time/CCT Total # of Minutes Spent Total Time Spent with Patient: Total time spent is greater than 50% in coordination of care (as documented) at patient's floor/unit and/or counseling patient: Coding Level of Care Code 55492 SUB INP/OBS CARE 2/35MIN Diagnoses Sepsis A41.9 Sepsis acute organ dysfunction status: without acute organ dysfunction Sepsis type: sepsis due to unspecified organism Duodenal ulcer K26.9 Controlled type 2 diabetes mellitus with neurologic complication, with long-term current use of insulin E11.49; Z79.4 Unintentional weight loss of 10% body weight within 6 months R63.4 Osteomyelitis M86.9 Laterality: left Osteomyelitis location: foot Osteomyelitis type: unspecified type (1) Sepsis Sepsis acute organ dysfunction status: without acute organ dysfunction Sepsis type: sepsis due to unspecified organism Qualified Code(s): A41.9 - Sepsis, unspecified organism (5) Osteomyelitis Laterality: left Osteomyelitis location: foot Osteomyelitis type: unspecified type Qualified Code(s): M86.9 - Osteomyelitis, unspecified
--- NOTE | 2023-06-26 15:49 | History & Physical Bridge Note ---
Date of Service June 26, 2023 History & Physical Bridge Note I have examined the patient, reviewed the History & Physical and in the interval since the performance of the History & Physical I have noted the following changes of clinical significance: no changes noted
[2023-06-26] MEDS ORDERED: ePHEDrine sulfate 50 MG/ML AMP IV PRN (15:51)
[2023-06-26] MEDS ORDERED: ATROPINE SULFATE 0.1 MG/ML 10ML SYR IV PRN (15:51)
[2023-06-26] MEDS ORDERED: ONDANSETRON INJ 2 MG/ML 2 ML VIAL IV PRN (15:51)
[2023-06-26] MEDS ORDERED: BUPIVACAINE/EPINEPHRINE 0.5% MPF 1:200,000 30 ML VIAL ONE (16:00)
[2023-06-26] MEDS ORDERED: fentaNYL citrate PF 100 MCG/2 ML VIAL ONE (16:26)
--- NOTE | 2023-06-26 17:21 | Operative Report ---
Post Operative Report Pre & Post Diagnosis Operation Date: 06/26/23 07:00 Pre-Op Diagnosis: Osteomyelitis, Gangrene Post-Op Diagnosis: Osteomyelitis, Gangrene I identified the patient and participated in the time-out.: Yes Procedure Operation Date: 06/26/23 07:00 Actual Procedures p Transmetatarsal Amputation of Left Foot(Left) - Raffy Price DPM, MS Surgeon Raffy Priec DPM, MS Eggs Inspector none Estimated Blood Loss 10 Findings Consistent with Post-Op Diagnosis Consistent with pre operative findings Specimens 1.) Transmetatarsal amputation left foot - Pathology Description of Procedure History of present illness: Patient is a 78 year old male vasculopath who is seen for treatment of left foot non healing toe amputation sites secondary to peripheral vascular disease. I discussed transmetatarsal amputation and reviewed surgery. Patient has a high probability of failing this procedure and requiring either a below knee or above knee amputation due to his severe peripheral vascular disease. He is aware of this and still wishes to proceed. All questions answered. Discussed procedure in detail and postoperative recovery. All potential risks, benefits, complications, alternatives, rehab, potential for incomplete relief of symptoms, need for further surgery, DVT, PE, , persistent pain, swelling, scarring, weakness, neurovascular, wound complications and potential for amputations were discussed with patient. Unwanted outcomes such as, but not limited to were reviewed including under correction, overcorrection, return of deformity, infection. All questions were answered. Patient has decided to proceed with procedure as indicated. Preoperative diagnosis: 1.) Left foot non healing toe amputations 2.) Peripheral vascular disease 3.) Gangrene left foot Postoperative diagnosis: Same Name of operation: Left foot transmetatarsal amputation Surgeon Dr. Price Eggs Inspector: None Anesthesia: General anesthesia care Hemostasis: Anatomic dissection Estimated blood loss: 5cc Procedure in detail: Under mild sedation the patient was brought in the operating room placed on the operating table in supine position. Following IV sedation local anesthesia was obtained about the left ankle utilizing 10 cc of 0.5% Marcaine plain. The foot was then prepped scrubbed and draped in usual aseptic manner. Attention was then directed to the left non healing foot. A fishmouth incision was created utilizing a sharp, sterile, #15 blade encompassing the forefoot. The incision which was deepened through subcutaneous tissue using sharp blunt dissection. Care was taken to identify and retract all vital neurovascular structures. All bleeders were ligated and cauterized necessary. Once down to the layer of periosteum and bone, a transverse incision was made within the periosteum. A schultz elevator was then used to free the soft tissue at the site of the metatarsal neck region. Once this was then performed with the use of a sagittal saw the metatarsals were then transversely cut. Once all the metatarsals have been cut, the metatarsal heads were then disarticulated from the surrounding soft tissue with the use of a 15 blade dissecting down through the medial aspect of the first metatarsal capsule including the sesamoids the soft tissue was then reflected from the plantar aspect of the metatarsal heads plantarly. The patient at that point then had the forefoot completely disarticulated and passed off to the back table in order to be sent for pathology. The patient then underwent copious irrigation with the use of 3 L of lactate ringer. Hemostasis was acquired. The wound was closed in layers with 3-0 vicryl. The skin was then closed with 3-0 nylon. Dry sterile dressing was applied consisting of 4x4's, ABD, Kerlix and Zander. The Patient tolerated the procedure and anesthesia well. He was transferred to recovery room vital signs stable. After postoperative monitoring the patient will be re admitted to the floor resuming all pre operative orders. I attest to the content of the Intraoperative Record and any orders documented therein. Any exceptions are noted below.
--- NOTE | 2023-06-26 17:22 | Post Operative Brief Note ---
Immediate Post Op Note v1 Date of Surgery June 26, 2023 Pre & Post Diagnosis Operation Date: 06/26/23 07:00 Pre-Op Diagnosis: Osteomyelitis, Gangrene Post-Op Diagnosis: Osteomyelitis, Gangrene I identified the patient and participated in the time-out.: Yes Procedure Operation Date: 06/26/23 07:00 Actual Procedures p Transmetatarsal Amputation of Left Foot(Left) - Raffy Price DPM, MS Surgeon Raffy Price DPM, MS Hat Cleaner none Estimated Blood Loss 10 Findings Consistent with Post-Op Diagnosis Specimens Transmetatarsal amputation left foot -pathology Anesthesia Type RN Sedation
[2023-06-26] MEDS: fentaNYL citrate PF 100 MCG/2 ML VIAL IV PRN ×3 (17:25→23:29)
--- NOTE | 2023-06-26 17:46 | Anesthesiology Progress Note ---
Date of Service June 26, 2023 Anesthesia Post Procedure Vital Signs Vital Signs: Temp Pulse Pulse Pulse Resp BP BP 06/26/23 17:35 86 17 106/74 06/26/23 17:25 86 23 120/75 06/26/23 17:15 36.9 C 83 24 102/64 06/26/23 15:20 36.8 C 75 18 104/57 L 06/26/23 15:00 70 06/26/23 11:51 36.7 C 75 18 95/58 L 06/26/23 08:00 79 06/26/23 08:00 06/26/23 07:47 36.6 C 79 18 112/65 06/26/23 07:00 79 06/26/23 02:23 36.9 C 78 18 111/76 06/26/23 00:42 82 06/25/23 22:48 36.6 C 82 16 128/56 L 06/25/23 19:00 36.5 C 89 20 118/75 Pulse Ox O2 Del Method O2 Flow Rate 06/26/23 17:35 93 Room Air 06/26/23 17:25 100 Oxymask 7 06/26/23 17:15 97 Oxymask 7 06/26/23 15:20 98 Room Air 06/26/23 15:00 06/26/23 11:51 97 Room Air 06/26/23 08:00 06/26/23 08:00 Room Air 06/26/23 07:47 97 Room Air 06/26/23 07:00 06/26/23 02:23 96 Room Air 06/26/23 00:42 06/25/23 22:48 96 Room Air 06/25/23 19:00 96 Room Air Pain Intensity Left Foot: Pain Intensity: 10 Transfer of Care Handoff Completed per policy Notes Mental Status: alert / awake / arousable Patient Amnestic to Procedure: Yes Nausea / Vomiting: adequately controlled Pain: adequately controlled Airway Patency, RR, SpO2: stable & adequate BP & HR: stable & adequate Hydration State: stable & adequate Anesthetic Complications: no major complications apparent
[2023-06-26] MEDS: ACETAMINOPHEN 325 MG TAB PO PRN (21:34)
[2023-06-27] MEDS: HEPARIN SOD 5,000 UNIT/0.5 ML VIAL SQ SCH ×3 (06:16→20:46)
[2023-06-27] MEDS: oxyCODONE HCL IR 5 MG TAB (IMMEDIATE RELEASE) PO PRN ×2 (06:16→14:46)
[2023-06-27 06:24] LABS: Hematocrit (blood only) 40.2 % (42.0-52.0); Hemoglobin 13.9 g/dl (14.0-18.0); Mean Corpuscular Hemoglobin 31.5 pg (25.0-34.0); Mean Corpuscular Hgb Conc 34.6 g/dL (32.0-36.0); Mean Corpuscular Volume 91.2 fL (80.0-100.0); Platelet Count 197 K/uL (130-400); RDW Coefficient of Variation 12.8 % (11.5-14.5); RDW Standard Deviation 42.9 fL (36.4-46.3); Red Blood Count 4.41 M/uL (4.70-6.10); White Blood Count 5.21 K/ul (4.8-10.8)
[2023-06-27 06:56] LABS: BUN Creatinine Ratio 28.9 (10-20); Calcium 8.8 mg/dl (8.6-10.3); Creatinine Clr Calc Pharmacy 68.7 ml/min; Est GFR (African American) 95.1 ml/min; Est GFR (Non-African American) 82.1 ml/min; Potassium 4.7 mmol/L (3.5-5.1)
[2023-06-27] MEDS: ACETAMINOPHEN 325 MG TAB PO PRN ×2 (08:16→20:47)
[2023-06-27] MEDS: SUCRALFATE 1 GM/10 ML UDC PO SCH ×4 (08:16→20:46)
[2023-06-27] MEDS: PANTOprazole 40 MG TAB PO SCH ×2 (08:16→20:46)
[2023-06-27] MEDS: fentaNYL citrate PF 100 MCG/2 ML VIAL IV PRN (10:23)
[2023-06-27] MEDS: cefTRIAXone SODIUM 1,000 MG in DEXTROSE 5 % MINI-B 50 ML IV SCH (11:07)
--- NOTE | 2023-06-27 13:40 | Infectious Disease Progress Nt ---
Date of Service June 27, 2023 Assessment & Plan (1) Osteomyelitis: (2) Gangrene: (3) Cellulitis of left foot: (4) Peripheral arterial occlusive disease: Plan 78 yo M with history of T2DM, HTN, HLD, NV, CVA, CKD, CHF, L toe amputation who presented on 06/18 with L foot pain and blackened toes, found to have gangrene and osteomyelitis of first and fifth toes, s/p first and fifth toe amputations (06/19/23), complicated by ongoing necrosis at toe amputation sites due to PAD s/p TMA (06/26/23). On presentation, CT left foot without contrast showed soft tissue gas within the left fifth toe and intraosseous gas within the distal phalanx of the left fifth toe highly suggestive of osteomyelitis. Soft tissue gas within the left first toe, equivocal erosion of the distal tuft of the distal phalanx of the left first toe, probably chronic however additional focus of acute osteo cannot be excluded. US duplex LLE arteries showed complete occlusion of common femoral artery and superficial femoral artery, majority occlusion of popliteal artery, occluded calf arteries. Podiatry took patient to the OR on 06/19 and performed amputation of left great toe and left fifth toe. Surgical cure of osteomyelitis was reportedly obtained. Patient underwent LLE angiogram on 06/22, which showed reconstitution of the anterior tibial artery approximately 15 cm above the ankle joint and the posterior tibial artery which reconstituted at the ankle joint. He was determined not to be candidate for bypass procedures due to overall medical condition and is not having [place] conduit for bypass. Vascular surgery felt that if his foot should worsen, then he will most likely require a left lower extremity amputation. Pt was noted to have necrosis at toe amputation sites, so was taken for TMA on 06/26. He has a high probability of failing the procedure and requiring a BKA or AKA given his PAD. Micro: 1 L 5th toe cx: Group C Strep 06/19 L great toe cx: Group C Strep (S amp, ceftriaxone, penicillin, vanc) 06/18 BCx x2: NG Abx: Ceftriaxone 06/26 - present Daptomycin 06/18 - 06/25 Pip-tazo 06/18 - 06/25 Clindamycin 06/18 - 06/20 Problems: #L first and fifth toe osteomyelitis and gangrene s/p first and fifth toe amputations (06/19/23) #T2DM #PAD Recommendations: -Switched ceftriaxone to amp-sulbactam. Can continue for now while assessing whether pt will need a higher amputation Discussed with hospitalist. Please page [facility] with further questions. Admission and Anticipated Discharge Date Admission Date: June 18, 2023 Subjective This patient recommendation is based on a telemedicine consult request which was completed asynchronously through chart review and information provided by the primary physician. The patient was not seen or examined today. The evaluation is consultative in nature and all patient care and treatment decisions can either be accepted or rejected by the patient's primary hospital-based treating physician using their own independent medical judgment for their patient. Time Spent Reviewing Chart: 11 - 20 minutes There was concern for ongoing necrosis at toe amputation sites due to severe PAD, so patient was taken to the OR on 06/26 for TMA. Patient currently on ceftriaxone Afebrile without leukocytosis Review of System Patient not seen Physical Exam Physical Exam: Patient not seen Results & Data Vital Signs (Past 12 Hours) Vital Signs Temp Pulse Pulse Resp BP BP Pulse Ox 06/27/23 11:29 36.8 C 69 17 94/58 L 87/54 L 97 06/27/23 08:01 37.0 C 68 18 99/64 L 97 06/27/23 06:59 66 06/27/23 02:13 36.6 C 69 20 111/74 97 O2 Del Method 06/27/23 11:29 Room Air 06/27/23 08:01 Room Air 06/27/23 06:59 06/27/23 02:13 Room Air Laboratory Results Short CBC 06/27/23 Range/Units 05:43 WBC 5.21 (4.8-10.8) K/ul Hgb 13.9 L (14.0-18.0) g/dl Hct 40.2 L (42.0-52.0) % Plt Count 197 (130-400) K/uL BMP 06/27/23 05:43 Sodium 136 Potassium 4.7 D Chloride 104 Carbon Dioxide 25 BUN 26 H Creatinine 0.90 Glucose 243 H Calcium 8.8 Medications Administered Current Inpatient Medications Acetaminophen (Acetaminophen 325 Mg Tab) 650 mg PO Q4H PRN PRN Reason: Pain or Fever Stop: 07/18/23 17:28 Last Admin: 06/27/23 08:16 Dose: 650 mg Al Hydrox/Mg Hydrox/Simethicone (Aluminum/Magnesium Susp 30 Ml Udc) 15 ml PO Q4H PRN PRN Reason: Dyspepsia Stop: 07/18/23 17:28 Dextrose (Dextrose 50% 50 Ml Syringe) 25 - 50 ml IV UD PRN; Protocol PRN Reason: Hypoglycemia Protocol Stop: 07/18/23 17:28 Fentanyl Citrate (Fentanyl Citrate Pf 100 Mcg/2 Ml Vial) 25 mcg IV Q4 PRN PRN Reason: Severe Pain (Scale 7, 8, 9,10) Stop: 07/10/23 17:59 Last Admin: 06/27/23 10:23 Dose: 25 mcg Glucagon (Glucagon For Inj 1 Mg Vial) 1 mg SQ UD PRN; Protocol PRN Reason: Hypoglycemia Protocol Stop: 07/18/23 17:28 Glucose (Glucose 10 Tab/Tube) 4 - 8 tab PO UD PRN; Protocol PRN Reason: Hypoglycemia Treatment Stop: 07/18/23 17:28 Glucose (Glucose 40% Gel 15 Gm Tube) 15 - 30 gm PO UD PRN; Protocol PRN Reason: Hypoglycemia Protocol Stop: 07/18/23 17:28 Heparin Sodium (Porcine) (Heparin Sod 5,000 Unit/0.5 Ml Vial) 5,000 units SQ Q8 INKOLAI Stop: 07/23/23 13:59 Last Admin: 06/27/23 13:11 Dose: 5,000 units Ceftriaxone Sodium 1,000 mg/ (Dextrose) 50 mls @ 100 mls/hr IV Q24H NIKOLAI; Protocol Stop: 08/07/23 11:29 Last Infusion: 06/27/23 12:01 Dose: Infused Miscellaneous (Carbohydrates For Hypoglycemia ) 15 - 30 gm PO UD PRN PRN Reason: Hypoglycemia Protocol Stop: 07/18/23 17:28 Ondansetron HCl (Ondansetron Inj 2 Mg/Ml 2 Ml Vial) 4 mg IV Q6H PRN PRN Reason: Nausea Stop: 07/18/23 17:28 Oxycodone HCl (Oxycodone Hcl Ir 5 Mg Tab (Immediate Release)) 5 mg PO Q6 PRN PRN Reason: Pain Stop: 07/05/23 07:55 Last Admin: 06/27/23 06:16 Dose: 5 mg Pantoprazole Sodium (Pantoprazole 40 Mg Tab) 40 mg PO BID NIKOLAI Stop: 07/21/23 12:14 Last Admin: 06/27/23 08:16 Dose: 40 mg Sucralfate (Sucralfate 1 Gm/10 Ml Udc) 1 gm PO ACHS NIKOLAI Stop: 07/18/23 17:28 Last Admin: 06/27/23 11:07 Dose: 1 gm (1) Osteomyelitis Laterality: left Osteomyelitis location: foot Osteomyelitis type: unspecified type Qualified Code(s): M86.9 - Osteomyelitis, unspecified
--- NOTE | 2023-06-27 15:33 | Hospitalist Progress Note ---
Date of Service June 27, 2023 Assessment & Plan (1) Sepsis: Plan: Patient presented with tachypnea elevated lactic acid rigors Patient received IV fluids Sepsis has resolved Blood cultures from 06/18 negative Surgical wound cultures growing group C beta strep. ID recommended to switch from IV ceftriaxone to IV Unasyn for anaerobic coverage since the patient is needing more amputations. Source was the left foot gangrene/osteomyelitis Patient had first and fifth toe amputation done on 06/[address] Price. Vascular surgery did an angiography. Not a candidate for bypass. Vasculopathy remains. Patient still has ongoing necrosis and gangrene Left TMA done on 06/26 Podiatry will follow along (2) Duodenal ulcer: Plan: Diagnosed in August persistent issue with this patient with profound outpatient weight loss. Patient stopped taking all medications bothered by daily abdominal pain. Was seen by GI in August 2022 and the risks were discussed of untreated gastric ulcer and esophagitis. However he declined initiating proton pump inhibitor. This is acute on chronic will use Carafate. Started Protonix p.o. twice daily. Patient does not want any further workup for his stomach issues. Per nurse he has had poor oral intake because of stomach pain. The patient has been quite whimsical and caring for him has become quite challenging (3) Controlled type 2 diabetes mellitus with neurologic complication, with long- term current use of insulin: Plan: Due to duodenal ulcer and abdominal pain patient is lost a significant amount of weight over the last 1 year and has now been off all diabetic medications with last hemoglobin A1c of 5.6 in November 2022. Will check q. ACHS glucose checks and have loose sliding scale if needed A1c 7 Per nurse, patient has been declining insulin (4) Unintentional weight loss of 10% body weight within 6 months: Plan: Due to abdominal pain from duodenal ulcers. Patient has not been taking medications at home. He is declining any further workup for his stomach issues (5) Osteomyelitis: Plan: Status post first and fifth toe amputation on the left foot. Noted that there is documentation from 2006 that the patient is very sensitive to morphine causing respiratory depression. Most likely patient had received high-dose morphine at that point. Patient received IV fentanyl without any complications. Will discontinue and encourage p.o. analgesics as needed Patient has also received oxycodone p.o. in the past 1 to 2 years. Added oxycodone p.o. to 6 Continue IV antibiotics Source control with amputation ID recommends continuing IV antibiotics since the patient is requiring further amputations. Switched from IV Rocephin to IV Unasyn to add anaerobic coverage Angiography revealed vasculopathy that could not be intervened on. left TMA 06/26 Plan CODE STATUS: DNR/DNI DVT prophylaxis: Heparin Admission and Anticipated Discharge Date Admission Date: June 18, 2023 Subjective Patient is feeling well. During my encounter, he was eating his lunch. His pain has been fairly controlled. Review of Systems Review of Systems: All systems reviewed & are unremarkable except as noted in Subjective Physical Exam Physical Exam: General: Awake, conversant Heart: S1, S2/regular rate and rhythm, no murmur rubs or gallops Lungs: Clear to auscultation bilaterally. Normal effort Abdomen: Soft/nontender/nondistended. No hepatosplenomegaly Extremities: Dressing on the left foot. Behavior: Appropriate, cooperative Results & Data Results & Data Vital Signs (Past 12 Hours) Vital Signs Temp Pulse Pulse Resp BP BP Pulse Ox 06/27/23 15:24 36.7 C 74 18 102/67 97 06/27/23 14:53 81 06/27/23 11:29 36.8 C 69 17 94/58 L 87/54 L 97 06/27/23 08:01 37.0 C 68 18 99/64 L 97 06/27/23 06:59 66 O2 Del Method 06/27/23 15:24 Room Air 06/27/23 14:53 06/27/23 11:29 Room Air 06/27/23 08:01 Room Air 06/27/23 06:59 Laboratory Results Abnormal lab results 06/26/23 06/27/23 Range/Units 17:17 05:43 RBC 4.41 L (4.70-6.10) M/uL Hgb 13.9 L (14.0-18.0) g/dl Hct 40.2 L (42.0-52.0) % BUN 26 H (6-23) mg/dl BUN/Creatinine Ratio 28.9 H (10-20) Glucose 243 H (70-99(Fasting)) mg/dl POC Glucose 151 H (70-99) mg/dl PG Care Time/CCT Total # of Minutes Spent Total Time Spent with Patient: Total time spent is greater than 50% in coordination of care (as documented) at patient's floor/unit and/or counseling patient: Coding Level of Care Code 08839 SUB INP/OBS CARE MIN Diagnoses Sepsis A41.9 Sepsis acute organ dysfunction status: without acute organ dysfunction Sepsis type: sepsis due to unspecified organism Duodenal ulcer K26.9 Controlled type 2 diabetes mellitus with neurologic complication, with long-term current use of insulin E11.49; Z79.4 Unintentional weight loss of 10% body weight within 6 months R63.4 Osteomyelitis M86.9 Laterality: left Osteomyelitis location: foot Osteomyelitis type: unspecified type (1) Sepsis Sepsis acute organ dysfunction status: without acute organ dysfunction Sepsis type: sepsis due to unspecified organism Qualified Code(s): A41.9 - Sepsis, unspecified organism (5) Osteomyelitis Laterality: left Osteomyelitis location: foot Osteomyelitis type: unspecified type Qualified Code(s): M86.9 - Osteomyelitis, unspecified
[2023-06-27] MEDS: UNASYN 3000MG / NS q6h IV SCH (16:44)
[2023-06-27] MEDS ORDERED: AMPICILLIN SOD/SULBACTAM SOD 3 GM VIAL IV SCH (18:00)
--- NOTE | 2023-06-27 22:15 | Orthopedic Progress Note ---
Date of Service June 27, 2023 Assessment & Plan Admission and Anticipated Discharge Date Admission Date: June 18, 2023 Physical Exam Constitutional: + frail appearing, cooperative and comfo rtable Eyes: normal visual leo by confrontation Neck: normal visual inspection Respiratory: normal respiratory effort Cardiovascular: Rate/Rhythm: regular rate and regular rhythm Musculoskeletal: Extremities: extremities normal to inspection, + amputation noted (Left TMA) and + foot abnormality Skin: + incision (well coapted) Neurologic: moves all extremities (Absent epicritic sensation) Psychiatric: Orientation: alert and oriented x 3 Results & Data Vital Signs (Past 12 Hours) Vital Signs Temp Pulse Pulse Resp BP BP Pulse Ox 06/27/23 19:34 36.4 C L 69 20 103/66 95 06/27/23 15:24 36.7 C 74 18 102/67 97 06/27/23 14:53 81 06/27/23 11:29 36.8 C 69 17 94/58 L 87/54 L 97 O2 Del Method 06/27/23 19:34 Room Air 06/27/23 15:24 Room Air 06/27/23 14:53 06/27/23 11:29 Room Air
[2023-06-28] MEDS: UNASYN 3000MG / NS q6h IV SCH ×4 (00:57→17:21)
[2023-06-28] MEDS: oxyCODONE HCL IR 5 MG TAB (IMMEDIATE RELEASE) PO PRN ×3 (00:57→23:37)
[2023-06-28] MEDS: ACETAMINOPHEN 325 MG TAB PO PRN ×3 (06:04→17:23)
[2023-06-28] MEDS: HEPARIN SOD 5,000 UNIT/0.5 ML VIAL SQ SCH ×3 (06:04→19:54)
[2023-06-28 06:17] LABS: Hematocrit (blood only) 39.7 % (42.0-52.0); Hemoglobin 13.1 g/dl (14.0-18.0); Mean Corpuscular Hemoglobin 30.9 pg (25.0-34.0); Mean Corpuscular Volume 93.6 fL (80.0-100.0); Mean Platelet Volume 10.6 fL (9.4-12.4); Platelet Count 186 K/uL (130-400); RDW Coefficient of Variation 13.2 % (11.5-14.5); RDW Standard Deviation 44.7 fL (36.4-46.3); Red Blood Count 4.24 M/uL (4.70-6.10); White Blood Count 4.97 K/ul (4.8-10.8)
[2023-06-28 06:32] LABS: BUN Creatinine Ratio 33.1 (10-20); Calcium 8.5 mg/dl (8.6-10.3); Creatinine Clr Calc Pharmacy 52.4 ml/min; Est GFR (African American) 68.6 ml/min; Est GFR (Non-African American) 59.2 ml/min; Potassium 4.2 mmol/L (3.5-5.1)
--- NOTE | 2023-06-28 07:47 | Orthopedic Progress Note ---
Date of Service June 28, 2023 Assessment & Plan (1) Osteomyelitis: Plan: Patient seen at bedside in room 204-1 resting comfortably. Patient is status post day #2 (DOS: 06/26/23) left transmetatarsal amputation. There is no signs of necrosis. Skin is coapted and appears healing well. Plan to continue to follow daily, if TMA fails Patient will require BKA. Dressing changed completed. Adaptic, 4x4, kerlix, Zander. Will continue to follow up while in house. (2) Gangrene: Admission and Anticipated Discharge Date Admission Date: June 18, 2023 Subjective Patient seen at bedside resting comfortably this morning. Patient is status post day #2 Transmetatarsal amputation left foot. Patient is siiting up and feeling well. He notes pain is controlled. Physical Exam Constitutional: + frail appearing, cooperative and comfo rtable Eyes: normal visual leo by confrontation Neck: normal visual inspection Respiratory: normal respiratory effort Cardiovascular: Rate/Rhythm: regular rate and regular rhythm Musculoskeletal: Extremities: extremities normal to inspection, + amputation noted (Left TMA) and + foot abnormality Skin: + incision (well coapted) Neurologic: moves all extremities (Absent epicritic sensation) Psychiatric: Orientation: alert and oriented x 3 Results & Data Vital Signs (Past 12 Hours) Vital Signs Temp Pulse Pulse Resp BP BP Pulse Ox 06/28/23 07:42 37.0 C 74 18 110/78 98 06/28/23 03:27 36.5 C 66 23 100/73 95 06/27/23 23:35 36.7 C 65 18 99/52 L 93 06/27/23 22:05 63 06/27/23 21:00 O2 Del Method 06/28/23 07:42 Room Air 06/28/23 03:27 Room Air 06/27/23 23:35 Room Air 06/27/23 22:05 06/27/23 21:00 Room Air (1) Osteomyelitis Laterality: left Osteomyelitis location: foot Osteomyelitis type: unspecified type Qualified Code(s): M86.9 - Osteomyelitis, unspecified
[2023-06-28] MEDS: SUCRALFATE 1 GM/10 ML UDC PO SCH ×4 (08:09→19:54)
[2023-06-28] MEDS: PANTOprazole 40 MG TAB PO SCH ×2 (08:09→19:54)
--- NOTE | 2023-06-28 13:28 | Hospitalist Progress Note ---
Date of Service June 28, 2023 Assessment & Plan (1) Sepsis: Plan: Patient presented with tachypnea elevated lactic acid rigors Patient received IV fluids Sepsis has resolved Blood cultures from 06/18 negative Surgical wound cultures growing group C beta strep. ID recommended to switch from IV ceftriaxone to IV Unasyn for anaerobic coverage since the patient is needing more amputations. Source was the left foot gangrene/osteomyelitis Patient had first and fifth toe amputation done on 06/[address] Price. Vascular surgery did an angiography. Not a candidate for bypass. Vasculopathy remains. Patient still has ongoing necrosis and gangrene Left TMA done on 06/26 Podiatry will follow along as the patient may need further amputation if continues to have nonhealing wounds (2) Osteomyelitis: Plan: Status post first and fifth toe amputation on the left foot 06/19 Followed by left TMA 06/26 due to nonhealing wound due to significant vasculopathy Noted that there is documentation from 2006 that the patient is very sensitive to morphine causing respiratory depression. Most likely patient had received high-dose morphine at that point. Patient received IV fentanyl without any complications. Patient has also received oxycodone p.o. in the past 1 to 2 years. Added oxycodone p.o. to 6 Continue IV antibiotics ID recommends continuing IV antibiotics since the patient is requiring further amputations. Switched from IV Rocephin to IV Unasyn to add anaerobic coverage Angiography revealed vasculopathy that could not be intervened on. Podiatry following along as the patient may need further amputation if he continues to have nonhealing wounds. (3) Duodenal ulcer: Plan: Diagnosed in August persistent issue with this patient with profound outpatient weight loss. Patient stopped taking all medications bothered by daily abdominal pain. Was seen by GI in August 2022 and the risks were discussed of untreated gastric ulcer and esophagitis. However he declined initiating proton pump inhibitor. This is acute on chronic will use Carafate. Started Protonix p.o. twice daily. Patient does not want any further workup for his stomach issues. Per nurse he has had poor oral intake because of stomach pain. The patient has been quite whimsical and caring for him has become quite challenging (4) Controlled type 2 diabetes mellitus with neurologic complication, with long- term current use of insulin: Plan: Due to duodenal ulcer and abdominal pain patient is lost a significant amount of weight over the last 1 year and has now been off all diabetic medications. Will check q. ACHS glucose checks and have loose sliding scale if needed A1c 7 Per nurse, patient has been declining insulin (5) Unintentional weight loss of 10% body weight within 6 months: Plan: Due to abdominal pain from duodenal ulcers. Patient has not been taking medications at home. He is declining any further workup for his stomach issues Plan CODE STATUS: DNR/DNI DVT prophylaxis: Heparin Admission and Anticipated Discharge Date Admission Date: June 18, 2023 Subjective Patient feels well. Denies chest pain or shortness of breath. Complains of some pain at the surgical site. However it is tolerable at this point. Review of Systems Review of Systems: All systems reviewed & are unremarkable except as noted in Subjective Physical Exam Physical Exam: General: Awake, conversant Heart: S1, S2/regular rate and rhythm, no murmur rubs or gallops Lungs: Clear to auscultation bilaterally. Normal effort Abdomen: Soft/nontender/nondistended. No hepatosplenomegaly Extremities: Dressing on the left foot. Behavior: Appropriate, cooperative Results & Data Results & Data Vital Signs (Past 12 Hours) Vital Signs Temp Pulse Pulse Resp BP BP Pulse Ox 06/28/23 11:42 36.8 C 79 18 105/65 98 06/28/23 07:58 69 06/28/23 07:42 37.0 C 74 18 110/78 98 06/28/23 03:27 36.5 C 66 23 100/73 95 O2 Del Method 06/28/23 11:42 Room Air 06/28/23 07:58 06/28/23 07:42 Room Air 06/28/23 03:27 Room Air Laboratory Results Abnormal lab results 06/28/23 Range/Units 05:49 RBC 4.24 L (4.70-6.10) M/uL Hgb 13.1 L (14.0-18.0) g/dl Hct 39.7 L (42.0-52.0) % BUN 39 H (6-23) mg/dl BUN/Creatinine Ratio 33.1 H (10-20) Glucose 154 H (70-99(Fasting)) mg/dl Calcium 8.5 L (8.6-10.3) mg/dl PG Care Time/CCT Total # of Minutes Spent Total Time Spent with Patient: Total time spent is greater than 50% in coordination of care (as documented) at patient's floor/unit and/or counseling patient: Coding Level of Care Code 24554 SUB INP/OBS CARE MIN Diagnoses Sepsis A41.9 Sepsis acute organ dysfunction status: without acute organ dysfunction Sepsis type: sepsis due to unspecified organism Osteomyelitis M86.9 Laterality: left Osteomyelitis location: foot Osteomyelitis type: unspecified type Duodenal ulcer K26.9 Controlled type 2 diabetes mellitus with neurologic complication, with long-term current use of insulin E11.49; Z79.4 Unintentional weight loss of 10% body weight within 6 months R63.4 (1) Sepsis Sepsis acute organ dysfunction status: without acute organ dysfunction Sepsis type: sepsis due to unspecified organism Qualified Code(s): A41.9 - Sepsis, unspecified organism (2) Osteomyelitis Laterality: left Osteomyelitis location: foot Osteomyelitis type: unspecified type Qualified Code(s): M86.9 - Osteomyelitis, unspecified
[2023-06-28] MEDS: fentaNYL citrate PF 100 MCG/2 ML VIAL IV PRN (19:53)
[2023-06-29] MEDS: HEPARIN SOD 5,000 UNIT/0.5 ML VIAL SQ SCH ×3 (05:19→20:58)
[2023-06-29] MEDS: ACETAMINOPHEN 325 MG TAB PO PRN (05:20)
[2023-06-29] MEDS: UNASYN 3000MG / NS q6h IV SCH ×5 (05:20→23:28)
[2023-06-29 06:16] LABS: Hematocrit (blood only) 40.4 % (42.0-52.0); Hemoglobin 13.8 g/dl (14.0-18.0); Mean Corpuscular Hemoglobin 31.3 pg (25.0-34.0); Mean Corpuscular Hgb Conc 34.2 g/dL (32.0-36.0); Mean Corpuscular Volume 91.6 fL (80.0-100.0); Mean Platelet Volume 10.6 fL (9.4-12.4); Platelet Count 204 K/uL (130-400); RDW Coefficient of Variation 13.2 % (11.5-14.5); RDW Standard Deviation 44.4 fL (36.4-46.3); Red Blood Count 4.41 M/uL (4.70-6.10); White Blood Count 5.41 K/ul (4.8-10.8)
[2023-06-29 06:29] LABS: Calcium 8.5 mg/dl (8.6-10.3); Potassium 3.8 mmol/L (3.5-5.1)
[2023-06-29 06:35] LABS: BUN Creatinine Ratio 31.4 (10-20); Creatinine Clr Calc Pharmacy 60.6 ml/min; Est GFR (African American) 81.8 ml/min; Est GFR (Non-African American) 70.6 ml/min
[2023-06-29] MEDS: SUCRALFATE 1 GM/10 ML UDC PO SCH ×4 (08:10→20:58)
[2023-06-29] MEDS: PANTOprazole 40 MG TAB PO SCH ×2 (08:10→20:58)
--- NOTE | 2023-06-29 12:12 | Hospitalist Progress Note ---
Date of Service June 29, 2023 Assessment & Plan (1) Sepsis: Plan: Patient presented with tachypnea elevated lactic acid rigors Patient received IV fluids Sepsis has resolved Blood cultures from 06/18 negative Surgical wound cultures from 06/19 grew group C beta strep. ID recommended to switch from IV ceftriaxone to IV Unasyn for anaerobic coverage since the patient is needing more amputations. Source was the left foot gangrene/osteomyelitis Patient had first and fifth toe amputation done on 06/[address] Price. Vascular surgery did an angiography. Not a candidate for bypass. Vasculopathy remains. Patient still had ongoing necrosis and gangrene Left TMA done on 06/26 Podiatry will follow along as the patient may need further amputation if continues to have nonhealing wounds (2) Osteomyelitis: Plan: Status post first and fifth toe amputation on the left foot 06/19 Followed by left TMA 06/26 due to nonhealing wound due to significant vasculopathy Noted that there is documentation from 2006 that the patient is very sensitive to morphine causing respiratory depression. Most likely patient had received high-dose morphine at that point. Patient received IV fentanyl without any complications. Patient has also received oxycodone p.o. in the past 1 to 2 years. Added oxycodone p.o. to 6 Continue IV antibiotics ID recommends continuing IV antibiotics since the patient is requiring further amputations. Switched from IV Rocephin to IV Unasyn to add anaerobic coverage Angiography revealed vasculopathy that could not be intervened on. Podiatry following along as the patient may need further amputation if he continues to have nonhealing wounds. (3) Duodenal ulcer: Plan: Diagnosed in August persistent issue with this patient with profound outpatient weight loss. Patient stopped taking all medications bothered by daily abdominal pain. Was seen by GI in August 2022 and the risks were discussed of untreated gastric ulcer and esophagitis. However he declined initiating proton pump inhibitor. This is acute on chronic will use Carafate. Started Protonix p.o. twice daily. Patient does not want any further workup for his stomach issues. Per nurse he has had poor oral intake because of stomach pain. The patient has been quite whimsical and caring for him has become quite challenging (4) Controlled type 2 diabetes mellitus with neurologic complication, with long- term current use of insulin: Plan: Due to duodenal ulcer and abdominal pain patient is lost a significant amount of weight over the last 1 year and has now been off all diabetic medications. Will check q. ACHS glucose checks and have loose sliding scale if needed A1c 7 Per nurse, patient has been declining insulin (5) Unintentional weight loss of 10% body weight within 6 months: Plan: Due to abdominal pain from duodenal ulcers. Patient has not been taking medications at home. He is declining any further workup for his stomach issues Plan CODE STATUS: DNR/DNI DVT prophylaxis: Heparin Admission and Anticipated Discharge Date Admission Date: June 18, 2023 Subjective Patient complains of pain at the surgical site. Review of Systems Review of Systems: All systems reviewed & are unremarkable except as noted in Subjective Physical Exam Physical Exam: General: Awake, conversant Heart: S1, S2/regular rate and rhythm, no murmur rubs or gallops Lungs: Clear to auscultation bilaterally. Normal effort Abdomen: Soft/nontender/nondistended. No hepatosplenomegaly Extremities: Dressing on the left foot. Behavior: Appropriate, cooperative Results & Data Results & Data Vital Signs (Past 12 Hours) Vital Signs Temp Pulse Pulse Resp BP Pulse Ox O2 Del Method 06/29/23 12:01 36.7 C 89 20 135/74 95 Room Air 06/29/23 08:26 36.8 C 90 22 124/80 97 Room Air 06/29/23 07:10 74 06/29/23 03:21 37.0 C 85 16 118/79 95 Room Air Laboratory Results Abnormal lab results 06/29/23 Range/Units 05:31 RBC 4.41 L (4.70-6.10) M/uL Hgb 13.8 L (14.0-18.0) g/dl Hct 40.4 L (42.0-52.0) % Chloride 108 H (98-107) mmol/L BUN 32 H (6-23) mg/dl BUN/Creatinine Ratio 31.4 H (10-20) Glucose 152 H (70-99(Fasting)) mg/dl Calcium 8.5 L (8.6-10.3) mg/dl PG Care Time/CCT Total # of Minutes Spent Total Time Spent with Patient: Total time spent is greater than 50% in coordination of care (as documented) at patient's floor/unit and/or counseling patient: Coding Level of Care Code 36755 SUB INP/OBS CARE 2/35MIN Diagnoses Sepsis A41.9 Sepsis acute organ dysfunction status: without acute organ dysfunction Sepsis type: sepsis due to unspecified organism Osteomyelitis M86.9 Laterality: left Osteomyelitis location: foot Osteomyelitis type: unspecified type Duodenal ulcer K26.9 Controlled type 2 diabetes mellitus with neurologic complication, with long-term current use of insulin E11.49; Z79.4 Unintentional weight loss of 10% body weight within 6 months R63.4 (1) Sepsis Sepsis acute organ dysfunction status: without acute organ dysfunction Sepsis type: sepsis due to unspecified organism Qualified Code(s): A41.9 - Sepsis, unspecified organism (2) Osteomyelitis Laterality: left Osteomyelitis location: foot Osteomyelitis type: unspecified type Qualified Code(s): M86.9 - Osteomyelitis, unspecified
--- NOTE | 2023-06-29 17:40 | Infectious Disease Progress Nt ---
Date of Service June 29, 2023 Assessment & Plan (1) Osteomyelitis: (2) Gangrene: (3) Cellulitis of left foot: (4) Peripheral arterial occlusive disease: Plan 78 yo M with history of T2DM, HTN, HLD, [place], CVA, CKD, CHF, L toe amputation who presented on 06/18 with L foot pain and blackened toes, found to have gangrene and osteomyelitis of first and fifth toes, s/p first and fifth toe amputations (06/19/23), complicated by ongoing necrosis at toe amputation sites due to PAD s/p TMA (06/26/23). On presentation, CT left foot without contrast showed soft tissue gas within the left fifth toe and intraosseous gas within the distal phalanx of the left fifth toe highly suggestive of osteomyelitis. Soft tissue gas within the left first toe, equivocal erosion of the distal tuft of the distal phalanx of the left first toe, probably chronic however additional focus of acute osteo cannot be excluded. US duplex LLE arteries showed complete occlusion of common femoral artery and superficial femoral artery, majority occlusion of popliteal artery, occluded calf arteries. Podiatry took patient to the OR on 06/19 and performed amputation of left great toe and left fifth toe. Surgical cure of osteomyelitis was reportedly obtained. Patient underwent LLE angiogram on 06/22, which showed reconstitution of the anterior tibial artery approximately 15 cm above the ankle joint and the posterior tibial artery which reconstituted at the ankle joint. He was determined not to be candidate for bypass procedures due to overall medical condition and is not having point lay ira conduit for bypass. Vascular surgery felt that if his foot should worsen, then he will most likely require a left lower extremity amputation. Pt was noted to have necrosis at toe amputation sites, so was taken for TMA on 06/26. He has a high probability of failing the procedure and requiring a BKA or AKA given his PAD. Micro: 1/2 L 5th toe cx: Group C Strep 06/19 L great toe cx: Group C Strep (S amp, ceftriaxone, penicillin, vanc) 06/18 BCx x2: NG Abx: Amp-sulbactam 06/27 - present Ceftriaxone 06/26 - 06/27 Daptomycin 06/18 - 06/25 Pip-tazo 06/18 - 06/25 Clindamycin 06/18 - 06/20 Problems: #L first and fifth toe osteomyelitis and gangrene s/p first and fifth toe amputations (06/19/23) c/b necrosis s/p TMA (06/26/23) #T2DM #PAD Recommendations: -Can continue amp-sulbactam for now while assessing whether pt will need a higher amputation -This seems to be primary an issue with healing due to poor vasculature. If osteomyelitis has all been resected, can discharge off antibiotics. Will continue to follow. Please note that ID does not round or write notes over the weekend (including the holiday on 07/02). If questions or concerns arise, please contact the Infectious Disease Call Center and ask to speak with the covering ID physician. I will be back on service on 07/03. Admission and Anticipated Discharge Date Admission Date: June 18, 2023 Subjective This patient recommendation is based on a telemedicine consult request which was completed asynchronously through chart review and information provided by the primary physician. The patient was not seen or examined today. The evaluation is consultative in nature and all patient care and treatment decisions can either be accepted or rejected by the patient's primary hospital-based treating physician using their own independent medical judgment for their patient. Time Spent Reviewing Chart: 11 - 20 minutes No acute events Review of System pt not seen Physical Exam Physical Exam: pt not seen Results & Data Vital Signs (Past 12 Hours) Vital Signs Temp Pulse Pulse Resp BP Pulse Ox O2 Del Method 06/29/23 15:00 36.6 C 93 H 18 109/69 97 Room Air 06/29/23 12:01 36.7 C 89 20 135/74 95 Room Air 06/29/23 08:26 36.8 C 90 22 124/80 97 Room Air 06/29/23 07:10 74 Laboratory Results Short CBC 06/29/23 Range/Units 05:31 WBC 5.41 (4.8-10.8) K/ul Hgb 13.8 L (14.0-18.0) g/dl Hct 40.4 L (42.0-52.0) % Plt Count 204 (130-400) K/uL BMP 06/29/23 05:31 Sodium 140 Potassium 3.8 Chloride 108 H Carbon Dioxide 22 BUN 32 H Creatinine 1.02 Glucose 152 H Calcium 8.5 L Medications Administered Current Inpatient Medications Acetaminophen (Acetaminophen 325 Mg Tab) 650 mg PO Q4H PRN PRN Reason: Pain or Fever Stop: 07/18/23 17:28 Last Admin: 06/29/23 05:20 Dose: 650 mg Al Hydrox/Mg Hydrox/Simethicone (Aluminum/Magnesium Susp 30 Ml Udc) 15 ml PO Q4H PRN PRN Reason: Dyspepsia Stop: 07/18/23 17:28 Dextrose (Dextrose 50% 50 Ml Syringe) 25 - 50 ml IV UD PRN; Protocol PRN Reason: Hypoglycemia Protocol Stop: 07/18/23 17:28 Fentanyl Citrate (Fentanyl Citrate Pf 100 Mcg/2 Ml Vial) 25 mcg IV Q4 PRN PRN Reason: Severe Pain (Scale 7, 8, 9,10) Stop: 07/10/23 17:59 Last Admin: 06/28/23 19:53 Dose: 25 mcg Glucagon (Glucagon For Inj 1 Mg Vial) 1 mg SQ UD PRN; Protocol PRN Reason: Hypoglycemia Protocol Stop: 07/18/23 17:28 Glucose (Glucose 10 Tab/Tube) 4 - 8 tab PO UD PRN; Protocol PRN Reason: Hypoglycemia Treatment Stop: 07/18/23 17:28 Glucose (Glucose 40% Gel 15 Gm Tube) 15 - 30 gm PO UD PRN; Protocol PRN Reason: Hypoglycemia Protocol Stop: 07/18/23 17:28 Heparin Sodium (Porcine) (Heparin Sod 5,000 Unit/0.5 Ml Vial) 5,000 units SQ Q8 NIKOLAI Stop: 07/23/23 13:59 Last Admin: 06/29/23 13:54 Dose: Not Given Ampicillin Sodium/Sulbactam Sodium 3,000 mg/ Sodium Chloride 100 mls @ 200 mls/hr IV Q6H NIKOLAI Stop: 07/04/23 17:59 Last Infusion: 06/29/23 13:23 Dose: Infused Miscellaneous (Carbohydrates For Hypoglycemia ) 15 - 30 gm PO UD PRN PRN Reason: Hypoglycemia Protocol Stop: 07/18/23 17:28 Ondansetron HCl (Ondansetron Inj 2 Mg/Ml 2 Ml Vial) 4 mg IV Q6H PRN PRN Reason: Nausea Stop: 07/18/23 17:28 Oxycodone HCl (Oxycodone Hcl Ir 5 Mg Tab (Immediate Release)) 5 mg PO Q6 PRN PRN Reason: Pain Stop: 07/05/23 07:55 Last Admin: 06/28/23 23:37 Dose: 5 mg Pantoprazole Sodium (Pantoprazole 40 Mg Tab) 40 mg PO BID NIKOLAI Stop: 07/21/23 12:14 Last Admin: 06/29/23 08:10 Dose: 40 mg Sucralfate (Sucralfate 1 Gm/10 Ml Udc) 1 gm PO ACHS NIKOLAI Stop: 07/18/23 17:28 Last Admin: 06/29/23 17:13 Dose: Not Given (1) Osteomyelitis Laterality: left Osteomyelitis location: foot Osteomyelitis type: unspecified type Qualified Code(s): M86.9 - Osteomyelitis, unspecified
[2023-06-29] MEDS: fentaNYL citrate PF 100 MCG/2 ML VIAL IV PRN (21:05)
[2023-06-30] MEDS: UNASYN 3000MG / NS q6h IV SCH ×3 (05:12→18:17)
[2023-06-30] MEDS: HEPARIN SOD 5,000 UNIT/0.5 ML VIAL SQ SCH ×3 (05:13→21:17)
[2023-06-30] MEDS: fentaNYL citrate PF 100 MCG/2 ML VIAL IV PRN ×4 (05:19→21:17)
[2023-06-30 06:34] LABS: Hematocrit (blood only) 39.7 % (42.0-52.0); Hemoglobin 13.7 g/dl (14.0-18.0); Mean Corpuscular Hemoglobin 31.3 pg (25.0-34.0); Mean Corpuscular Hgb Conc 34.5 g/dL (32.0-36.0); Mean Corpuscular Volume 90.6 fL (80.0-100.0); Mean Platelet Volume 10.7 fL (9.4-12.4); Platelet Count 206 K/uL (130-400); RDW Coefficient of Variation 13.2 % (11.5-14.5); Red Blood Count 4.38 M/uL (4.70-6.10); White Blood Count 7.06 K/ul (4.8-10.8)
[2023-06-30 06:56] LABS: BUN Creatinine Ratio 27.8 (10-20); Calcium 8.5 mg/dl (8.6-10.3); Creatinine Clr Calc Pharmacy 68.7 ml/min; Est GFR (African American) 95.1 ml/min; Est GFR (Non-African American) 82.1 ml/min; Potassium 3.8 mmol/L (3.5-5.1)
[2023-06-30] MEDS: SUCRALFATE 1 GM/10 ML UDC PO SCH ×4 (09:16→21:16)
[2023-06-30] MEDS: PANTOprazole 40 MG TAB PO SCH ×2 (09:16→21:16)
--- NOTE | 2023-06-30 12:32 | Hospitalist Progress Note ---
Date of Service June 30, 2023 Assessment & Plan (1) Sepsis: Plan: Patient presented with tachypnea elevated lactic acid rigors Patient received IV fluids Sepsis has resolved Blood cultures from 06/18 negative Surgical wound cultures from 06/19 grew group C beta strep. ID recommended to switch from IV ceftriaxone to IV Unasyn for anaerobic coverage since the patient is needing more amputations. Source was the left foot gangrene/osteomyelitis Patient had first and fifth toe amputation done on 06/[address] Price. Vascular surgery did an angiography. Not a candidate for bypass. Vasculopathy remains. Patient still had ongoing necrosis and gangrene Left TMA done on 06/26 Podiatry will follow along as the patient may need further amputation if continues to have nonhealing wounds (2) Osteomyelitis: Plan: Status post first and fifth toe amputation on the left foot 06/19 Followed by left TMA 06/26 due to nonhealing wound due to significant vasculopathy Noted that there is documentation from 2006 that the patient is very sensitive to morphine causing respiratory depression. Most likely patient had received high-dose morphine at that point. Patient received IV fentanyl without any complications. Patient has also received oxycodone p.o. in the past 1 to 2 years. Added oxycodone p.o. to 6 Continue IV antibiotics ID recommends continuing IV antibiotics since the patient is requiring further amputations. Now on IV Unasyn Angiography revealed vasculopathy that could not be intervened on. Podiatry following along as the patient may need further amputation if he continues to have nonhealing wounds. (3) Duodenal ulcer: Plan: Diagnosed in August persistent issue with this patient with profound outpatient weight loss. Patient stopped taking all medications bothered by daily abdominal pain. Was seen by GI in August 2022 and the risks were discussed of untreated gastric ulcer and esophagitis. However he declined initiating proton pump inhibitor. This is acute on chronic will use Carafate. Started Protonix p.o. twice daily. Patient does not want any further workup for his stomach issues. Per nurse he has had poor oral intake because of stomach pain. The patient has been quite whimsical and caring for him has become quite challenging (4) Controlled type 2 diabetes mellitus with neurologic complication, with long- term current use of insulin: Plan: Due to duodenal ulcer and abdominal pain patient is lost a significant amount of weight over the last 1 year and has now been off all diabetic medications. Will check q. ACHS glucose checks and have loose sliding scale if needed A1c 7 Per nurse, patient has been declining insulin (5) Unintentional weight loss of 10% body weight within 6 months: Plan: Due to abdominal pain from duodenal ulcers. Patient has not been taking medications at home. He is declining any further workup for his stomach issues Plan CODE STATUS: DNR/DNI DVT prophylaxis: Heparin Admission and Anticipated Discharge Date Admission Date: June 18, 2023 Subjective Patient continues to complain of pain at the surgical site. He thinks that he may need further amputation as his pain is not getting better. Review of Systems Review of Systems: All systems reviewed & are unremarkable except as noted in Subjective Physical Exam Physical Exam: General: Awake, conversant Heart: S1, S2/regular rate and rhythm, no murmur rubs or gallops Lungs: Clear to auscultation bilaterally. Normal effort Abdomen: Soft/nontender/nondistended. No hepatosplenomegaly Extremities: Dressing on the left foot. Behavior: Appropriate, cooperative Results & Data Results & Data Vital Signs (Past 12 Hours) Vital Signs Temp Pulse Pulse Pulse Resp BP BP 06/30/23 10:43 36.8 C 89 18 121/75 06/30/23 07:54 81 06/30/23 07:23 37.1 C 85 18 131/90 06/30/23 03:00 36.8 C 85 19 142/67 H Pulse Ox O2 Del Method 06/30/23 10:43 96 Room Air 06/30/23 07:54 06/30/23 07:23 96 Room Air 06/30/23 03:00 96 Room Air PG Care Time/CCT Total # of Minutes Spent Total Time Spent with Patient: Total time spent is greater than 50% in coordination of care (as documented) at patient's floor/unit and/or counseling patient: Coding Level of Care Code 13122 SUB INP/OBS CARE 2/35MIN Diagnoses Sepsis A41.9 Sepsis acute organ dysfunction status: without acute organ dysfunction Sepsis type: sepsis due to unspecified organism Osteomyelitis M86.9 Laterality: left Osteomyelitis location: foot Osteomyelitis type: unspecified type Duodenal ulcer K26.9 Controlled type 2 diabetes mellitus with neurologic complication, with long-term current use of insulin E11.49; Z79.4 Unintentional weight loss of 10% body weight within 6 months R63.4 (1) Sepsis Sepsis acute organ dysfunction status: without acute organ dysfunction Sepsis type: sepsis due to unspecified organism Qualified Code(s): A41.9 - Sepsis, unspecified organism (2) Osteomyelitis Laterality: left Osteomyelitis location: foot Osteomyelitis type: unspecified type Qualified Code(s): M86.9 - Osteomyelitis, unspecified
[2023-07-01] MEDS: UNASYN 3000MG / NS q6h IV SCH ×5 (00:09→23:00)
[2023-07-01] MEDS: HEPARIN SOD 5,000 UNIT/0.5 ML VIAL SQ SCH ×3 (05:09→22:19)
[2023-07-01 06:10] LABS: Hematocrit (blood only) 43.4 % (42.0-52.0); Hemoglobin 14.3 g/dl (14.0-18.0); Mean Corpuscular Hemoglobin 30.6 pg (25.0-34.0); Mean Corpuscular Hgb Conc 32.9 g/dL (32.0-36.0); Mean Corpuscular Volume 92.7 fL (80.0-100.0); Mean Platelet Volume 10.7 fL (9.4-12.4); Platelet Count 227 K/uL (130-400); RDW Coefficient of Variation 13.5 % (11.5-14.5); RDW Standard Deviation 45.1 fL (36.4-46.3); Red Blood Count 4.68 M/uL (4.70-6.10); White Blood Count 8.39 K/ul (4.8-10.8)
[2023-07-01 06:36] LABS: Creatinine Clr Calc Pharmacy 54.3 ml/min; Est GFR (African American) 73.8 ml/min; Est GFR (Non-African American) 63.7 ml/min; Potassium 4.2 mmol/L (3.5-5.1)
[2023-07-01] MEDS: fentaNYL citrate PF 100 MCG/2 ML VIAL IV PRN ×4 (08:28→22:23)
[2023-07-01] MEDS: SUCRALFATE 1 GM/10 ML UDC PO SCH ×4 (08:31→20:10)
[2023-07-01] MEDS: PANTOprazole 40 MG TAB PO SCH ×2 (08:31→20:10)
--- NOTE | 2023-07-01 11:51 | Hospitalist Progress Note ---
Date of Service July 01, 2023 Assessment & Plan (1) Sepsis: Plan: Patient presented with tachypnea elevated lactic acid rigors Patient received IV fluids Sepsis has resolved Blood cultures from 06/18 negative Surgical wound cultures from 06/19 grew group C beta strep. ID recommended to switch from IV ceftriaxone to IV Unasyn for anaerobic coverage since the patient is needing more amputations. Source was the left foot gangrene/osteomyelitis Patient had first and fifth toe amputation done on 06/[address] Price. Vascular surgery did an angiography. Not a candidate for bypass. Vasculopathy remains. Patient still had ongoing necrosis and gangrene Subsequently, left TMA done on 06/26 Podiatry will follow along as the patient may need further amputation if continues to have nonhealing wounds (2) Osteomyelitis: Plan: Status post first and fifth toe amputation on the left foot 06/19 Followed by left TMA 06/26 due to nonhealing wound due to significant vasculopathy Noted that there is documentation from 2006 that the patient is very sensitive to morphine causing respiratory depression. Most likely patient had received high-dose morphine at that point. Patient received IV fentanyl without any complications. Patient has also received oxycodone p.o. in the past 1 to 2 years. Added oxycodone p.o. to 6 Continue IV antibiotics ID recommends continuing IV antibiotics since the patient is requiring further amputations. Now on IV Unasyn Angiography revealed vasculopathy that could not be intervened on. Podiatry following along as the patient may need further amputation if he continues to have nonhealing wounds. (3) Duodenal ulcer: Plan: Diagnosed in August persistent issue with this patient with profound outpatient weight loss. Patient stopped taking all medications bothered by daily abdominal pain. Was seen by GI in August 2022 and the risks were discussed of untreated gastric ulcer and esophagitis. However he declined initiating proton pump inhibitor. This is acute on chronic will use Carafate. Started Protonix p.o. twice daily. Patient does not want any further workup for his stomach issues. Per nurse he has had poor oral intake because of stomach pain. The patient has been quite whimsical and caring for him has become quite challenging (4) Controlled type 2 diabetes mellitus with neurologic complication, with long- term current use of insulin: Plan: Due to duodenal ulcer and abdominal pain patient is lost a significant amount of weight over the last 1 year and has now been off all diabetic medications. Will check q. ACHS glucose checks and have loose sliding scale if needed A1c 7 Per nurse, patient has been declining insulin (5) Unintentional weight loss of 10% body weight within 6 months: Plan: Due to abdominal pain from duodenal ulcers. Patient has not been taking medications at home. He is declining any further workup for his stomach issues Plan CODE STATUS: DNR/DNI DVT prophylaxis: Heparin Admission and Anticipated Discharge Date Admission Date: June 18, 2023 Subjective Patient continues to complain of pain. He has concerns that his wound is not healing and it is getting mentally ready for further amputations Review of Systems Review of Systems: All systems reviewed & are unremarkable except as noted in Subjective Physical Exam Physical Exam: General: Awake, conversant Heart: S1, S2/regular rate and rhythm, no murmur rubs or gallops Lungs: Clear to auscultation bilaterally. Normal effort Abdomen: Soft/nontender/nondistended. No hepatosplenomegaly Extremities: Dressing on the left foot. Behavior: Appropriate, cooperative Results & Data Results & Data Vital Signs (Past 12 Hours) Vital Signs Temp Pulse Pulse Resp BP BP Pulse Ox 07/01/23 11:04 36.3 C L 91 H 17 118/81 96 07/01/23 10:43 87 07/01/23 07:06 36.3 C L 87 18 124/81 96 07/01/23 03:00 36.7 C 90 26 H 120/75 95 O2 Del Method 07/01/23 11:04 Room Air 07/01/23 10:43 07/01/23 07:06 Room Air 07/01/23 03:00 Room Air Laboratory Results Abnormal lab results 07/01/23 Range/Units 05:43 RBC 4.68 L (4.70-6.10) M/uL Glucose 162 H (70-99(Fasting)) mg/dl PG Care Time/CCT Total # of Minutes Spent Total Time Spent with Patient: Total time spent is greater than 50% in coordination of care (as documented) at patient's floor/unit and/or counseling patient: Coding Level of Care Code 86358 SUB INP/OBS CARE 2/35MIN Diagnoses Sepsis A41.9 Sepsis acute organ dysfunction status: without acute organ dysfunction Sepsis type: sepsis due to unspecified organism Osteomyelitis M86.9 Laterality: left Osteomyelitis location: foot Osteomyelitis type: unspecified type Duodenal ulcer K26.9 Controlled type 2 diabetes mellitus with neurologic complication, with long-term current use of insulin E11.49; Z79.4 Unintentional weight loss of 10% body weight within 6 months R63.4 (1) Sepsis Sepsis acute organ dysfunction status: without acute organ dysfunction Sepsis type: sepsis due to unspecified organism Qualified Code(s): A41.9 - Sepsis, unspecified organism (2) Osteomyelitis Laterality: left Osteomyelitis location: foot Osteomyelitis type: unspecified type Qualified Code(s): M86.9 - Osteomyelitis, unspecified
--- NOTE | 2023-07-01 19:29 | Orthopedic Progress Note ---
Date of Service July 01, 2023 Assessment & Plan (1) Osteomyelitis: Plan: Patient seen at bedside in room 204-1. He notes continued rest pain. Patient is status post day #5 (DOS: 06/26/23) left transmetatarsal amputation. There are signs of necrosis at amputation. Patient will require BKA. Vascular consult placed. Dressing changed completed. Adaptic, 4x4, kerlix, Zander. Will continue to follow up while in house. (2) Gangrene: Admission and Anticipated Discharge Date Admission Date: June 18, 2023 Subjective Patient seen at bedside in room 204-1 resting comfortably. He notes continued severe rest pain to left lower extremity. Patient is status post day #5 (DOS: 06/26/23) left transmetatarsal amputation. There are continued signs of necrosis at amputation site. Patient is aware and understands need for BKA. Physical Exam Constitutional: + frail appearing, cooperative and comfo rtable Eyes: normal visual leo by confrontation Neck: normal visual inspection Respiratory: normal respiratory effort Cardiovascular: Rate/Rhythm: regular rate and regular rhythm Musculoskeletal: Extremities: extremities normal to inspection, + amputation noted (Left TMA) and + foot abnormality Skin: + incision (adjacent necrosis present) Neurologic: moves all extremities (Absent epicritic sensation) Psychiatric: Orientation: alert and oriented x 3 Results & Data Vital Signs (Past 12 Hours) Vital Signs Temp Pulse Pulse Resp BP Pulse Ox O2 Del Method 07/01/23 16:43 75 07/01/23 15:12 36.4 C L 83 21 105/70 96 Room Air 07/01/23 11:04 36.3 C L 91 H 17 118/81 96 Room Air 07/01/23 10:43 87 (1) Osteomyelitis Laterality: left Osteomyelitis location: foot Osteomyelitis type: unspecified type Qualified Code(s): M86.9 - Osteomyelitis, unspecified
[2023-07-02] MEDS: HEPARIN SOD 5,000 UNIT/0.5 ML VIAL SQ SCH ×3 (05:34→20:05)
[2023-07-02] MEDS: UNASYN 3000MG / NS q6h IV SCH ×3 (05:34→17:29)
[2023-07-02 06:09] LABS: Hematocrit (blood only) 43.3 % (42.0-52.0); Hemoglobin 14.4 g/dl (14.0-18.0); Mean Corpuscular Hemoglobin 31.1 pg (25.0-34.0); Mean Corpuscular Hgb Conc 33.3 g/dL (32.0-36.0); Mean Corpuscular Volume 93.5 fL (80.0-100.0); Mean Platelet Volume 10.6 fL (9.4-12.4); Platelet Count 217 K/uL (130-400); RDW Coefficient of Variation 13.6 % (11.5-14.5); RDW Standard Deviation 46.3 fL (36.4-46.3); Red Blood Count 4.63 M/uL (4.70-6.10); White Blood Count 7.42 K/ul (4.8-10.8)
[2023-07-02 06:18] LABS: BUN Creatinine Ratio 21.8 (10-20); Calcium 8.9 mg/dl (8.6-10.3); Creatinine Clr Calc Pharmacy 54.6 ml/min; Est GFR (African American) 74.7 ml/min; Est GFR (Non-African American) 64.4 ml/min; Potassium 4.2 mmol/L (3.5-5.1)
[2023-07-02] MEDS: PANTOprazole 40 MG TAB PO SCH ×2 (08:00→20:06)
[2023-07-02] MEDS: SUCRALFATE 1 GM/10 ML UDC PO SCH ×4 (08:00→20:07)
[2023-07-02] MEDS ORDERED: LACTATED RINGER'S 1,000 ML IV SCH (12:30)
--- NOTE | 2023-07-02 12:32 | Hospitalist Progress Note ---
Date of Service July 02, 2023 Assessment & Plan (1) Sepsis: Plan: 2nd to left foot gangrene/osteomyelitis of 1st and 5th toes, s/p amputation of both toes by Dr Price. Intra-op culture from the 1st/5th toe amputations grew group C strep. Remains on IV unasyn. Ultimately needed TMA of the left foot - 06/26/23 - also by Dr Price. Unfortunately angiography completed by Dr Sher on 06/22/23 revealed severe PAD of the left leg with no option for bypass. Dr Price re-evaluated the left foot on 07/01/23 and unfortunately the TMA is already necrosing. Dr Sher met with the patient today to discuss BKA and possibly even AKA and patient is declining additional surgery. Palliative care met with the patient this afternoon after the patient declined additional surgery. Very complex situation. (2) Osteomyelitis: Plan: Status post first and fifth toe amputations on the left foot 06/[address] Price, podiatry Ultimately needed left TMA 06/26 due to nonhealing wounds (1st/5th MTPs) due to significant vasculopathy - surgery also by Dr Price Remains on IV unasyn see #1 above (3) Duodenal ulcer: Plan: 08/2022 - EGD with esophagitis and duodenal ulcers however, following the EGD, he never took acid reduction with PPI he has had abdominal pains for months and weight loss now on PPI twice daily and carafate QID abd pain seems better but still not eating (4) Controlled type 2 diabetes mellitus with neurologic complication, with long- term current use of insulin: Plan: HbA1c 7% Per staff he had been declining insulin insulin stopped since he was declining such glucose noted to be 140s on AM labs today (5) Unintentional weight loss of 10% body weight within 6 months: Plan: patient told prior attending physician he did NOT want further work-up for his abdominal pains or weight loss (6) Severe protein-calorie malnutrition: Plan: 15kg weight loss since late 2021 see discussion above (7) Insomnia: Plan: in light of weight loss, poor appetite, insomnia, prior mental health issues (as listed in chart) will start remeron 7.5mg HS (8) CAD in [place] artery: Plan: no ischemic symptoms at this time statin, plavix, etc remain on hold (9) Peripheral arterial occlusive disease: Plan: severe as seen on arteriogram on 06/22/[address] Sher unfortunately he is not a candidate for bypass as per Dr Sher making BKA or AKA the best option for healing for his left leg patient declining further surgery on left leg see above (10) DVT prophylaxis: Plan: heparin 5000 TID (11) Candidiasis of mouth and esophagus: Plan: start nystatin solution 5ml qid swish/spit Plan CODE STATUS: DNR/DNI Appreciate palliative care consultation Complex situation as he is now declining BKA or AKA of the left leg Invariably his left foot will likely continue to worsen leading to recurrent sepsis and even He acknowledges what will happen if he doesn't allow additional intervention to the LLE He stated multiple times to me during my visit "it is what it is" Palliative care to cont to follow Appreciate Dr Sher, Dr Price, and Dr Mcdaniels's assistance updated at bedside Admission and Anticipated Discharge Date Admission Date: June 18, 2023 Subjective patient lying in bed flat during the visit at bedside he reports ongoing pain in his left foot taking the pain meds but "doesn't really help" we discussed his weight loss - states his appetite has been poor for many months during this hospitalization he has also been with poor appetite declining to eat his trays per staff some abdominal pain - present for months he denies feeling depressed but does mention very poor sleep (1-2 hours max each night) for several months or longer doesn't participate in things he used to enjoy (hunting, fishing, etc) lost his [place] driver's license 1-2 years ago "everything changed" we discussed that Dr Sher was coming to re-evaluate him about his left foot and that additional surgery might be needed he said multiple times "it is what it is" tele - NSR, PACs, PVCs Review of Systems Review of Systems: gen - no fevers or chills; fatigue, weak cv - no chest pain, no orthopnea pulm - no dyspnea at rest GI - no abd pain or N/V Physical Exam Physical Exam: gen - NAD, thin, awake/alert, flat affect mouth - MM dry, geographic tongue, ? thrush plaques on tongue neck - no JVD heart - irregular, s1 s2, no murmur lungs - CTA b/l abd - soft NT ND BS+ vascular - L popliteal pulse absent, DP and PT pulses L foot <1+ or even less; right popliteal 1+; right foot pulses 1+ musculo - left foot dressed in dressings - I did not remove them no edema of either leg Results & Data Results & Data Vital Signs (Past 12 Hours) Vital Signs Temp Pulse Pulse Resp BP BP Pulse Ox 07/02/23 10:56 36.6 C 78 24 98/48 L 96 07/02/23 07:26 36.9 C 82 21 110/64 95 07/02/23 06:20 71 07/02/23 02:56 36.6 C 81 19 113/74 97 O2 Del Method 07/02/23 10:56 Room Air 07/02/23 07:26 Room Air 07/02/23 06:20 07/02/23 02:56 Room Air Laboratory Results Laboratory Results - last 24 hr 07/02/23 05:35 WBC 7.42 RBC 4.63 L Hgb 14.4 Hct 43.3 MCV 93.5 MCH 31.1 MCHC 33.3 RDW Std Deviation 46.3 RDW Coeff of Gissel 13.6 Plt Count 217 MPV 10.6 Sodium 139 Potassium 4.2 Chloride 108 H Carbon Dioxide 22 Anion Gap 9 BUN 24 H Creatinine 1.10 Est Cr Clr Drug Dosing 54.6 Est GFR ( Amer) 74.7 Est GFR (Non-Af Amer) 64.4 BUN/Creatinine Ratio 21.8 H Glucose 147 H Calcium 8.9 PG Care Time/CCT Total # of Minutes Spent Total Time Spent with Patient: Total time spent is greater than 50% in coordination of care (as documented) at patient's floor/unit and/or counseling patient: Coding Level of Care Code 48492 SUB INP/OBS CARE 3/50MIN Diagnoses Sepsis A41.9 Sepsis acute organ dysfunction status: without acute organ dysfunction Sepsis type: sepsis due to unspecified organism Osteomyelitis M86.9 Laterality: left Osteomyelitis location: foot Osteomyelitis type: unspecified type Duodenal ulcer K26.9 Controlled type 2 diabetes mellitus with neurologic complication, with long-term current use of insulin E11.49; Z79.4 Unintentional weight loss of 10% body weight within 6 months R63.4 Severe protein-calorie malnutrition E43 Insomnia G47.00 Insomnia type: unspecified CAD in [place] artery I25.10 Peripheral arterial occlusive disease I77.9 DVT prophylaxis Z29.9 Candidiasis of mouth and esophagus B37.81; B37.0 (1) Sepsis Sepsis acute organ dysfunction status: without acute organ dysfunction Sepsis type: sepsis due to unspecified organism Qualified Code(s): A41.9 - Sepsis, unspecified organism (2) Osteomyelitis Laterality: left Osteomyelitis location: foot Osteomyelitis type: unspecified type Qualified Code(s): M86.9 - Osteomyelitis, unspecified (7) Insomnia Insomnia type: unspecified Qualified Code(s): G47.00 - Insomnia, unspecified
--- NOTE | 2023-07-02 12:34 | Communication Note ---
Date of Service: July 02, 2023 I had a talk with Mr Blanchard today about his worsening left foot amputation site. He will require a BKA possible AKA. Would plan on doing an incision for the BKA and if the bleeding is poor or muscle doesn't look good then would do an AKA. An AKA has a good chance of healing. At this point he does not want an amputation. He is aware that his foot is worsening and he could become septic from it. He is also aware that he could from his foot worsening. He claims to be fully aware of that and still does not want an amputation of the leg. If he should change his mind, please all.
[2023-07-02] MEDS: ACETAMINOPHEN 500 MG TAB PO SCH ×2 (13:30→20:03)
[2023-07-02] MEDS: NYSTATIN SUSP 500,000 U/5 ML UDC PO SCH ×3 (13:30→20:06)
[2023-07-02] MEDS: CEROVITE ADV FORMULA TAB PO SCH (13:30)
[2023-07-02] MEDS: POLYETHYLENE (MIRALAX) 17 GM PACK PO SCH (13:30)
--- NOTE | 2023-07-02 14:41 | Palliative Care Consultation ---
Date of Consultation July 02, 2023 Assessment & Plan (1) Advanced care planning/counseling discussion: Pt consented to discussion about advanced care planning. Spoke in person with patient for greater than 20 minutes. He is able to articulate that he currently has an infection in his left foot. Vascular surgery and podiatry are recommending BKA, patient does not want amputation. He knows that without surgery his infection could worsening and could ultimately lead to his . Has an understanding of his disease process and risks of not having surgery, patient does appear to have discission making capacity at this time. Offered to update and patient refuses. He would like to go home, lives with . I have concerns that as his infection worsens and he moves closer towards septic shock, that he will become delirious and will no longer have decision making capacity. Will try to see patient while is visiting tomorrow. (2) Palliative care by specialist: (3) Left leg pain: Pt notes uncontrolled pain in left leg. Plan for trial of Dilaudid 0.5 IV q2 prn. (4) Generalized weakness: Per discussion with primary team noted by prior to this admission. Secondary to multiple disease processes and worsened with acute infection. (5) Insomnia: Pt notes insomnia and previous trial of multiple medications for insomnia including Ativan. In discussion with hospitalist plan for trial of mirtazapine. Insomnia type: unspecified Qualified Code(s): G47.00 - Insomnia, unspecified (6) Gangrene: Currently in IV antibiotics, does not want amputation as vascular surgery and podiatry are recommending. Does note continued pain that is not well controlled. Pain regimen ordered. Plan Pt seen with Dr Ortiz He refused exam Discussion as noted above Low threshold for rapid decline with loss of decisional capacity though at present he is decisionally intact and understands quite clearly the implications of his choices. Emphatically refuses amputation and is very clear this does not improve his QOL. It will not bring back to him the ability to resume the things he enjoyed doing such as driving and being independent. pain is also uncontrolled and needs improvement, he feels tylenol alone is "useless." He refuses to allow any update to but nursing advised she is likely coming back tomorrow morning so we will aim to visit at that time. He is interested in returning home but only caregiver would be who we are not allowed to contact - would not plan home dc without her buy in. We discussed hospice: We discussed the goals of hospice as a patient service and the goals of care; we discussed EOL trajectories and transitions grant the emotional impact of realizing mortality as a concrete reality from prior abstract considerations. Pt was reassured that no matter where they are along this trajectory, they are not alone - their medical team will remain by their side through their journey. Discussed the pros/cons of accepting help when especially weakened and distressed by pain-which would also help provide relief/decrease caregiver burden/strain.I provided education about the hospice benefit: an interdisciplinary program offered by nurses, nurses aides, social workers, chaplains and a biomedical analytical scientist for patients with a terminal condition and a life expectancy of less than 6 months. This is covered by Medicare at 100%/no out of pocket expense to patient and all meds/supplies needed by patient for the reason they are on hospice are paid for/covered by hospice. The goal is assure quality of life of the patient in their home setting (home, prison, inpatient hospice setting) by providing symptoms management, psychosocial and spiritual support. However, they cannot offer 24 hours care and if the family is unable to provide that care, they will have to consider personal care with out of pocket cost vs. prison placement. We discussed the goals of hospice as a patient service and the goals of care; we discussed EOL trajectories and transitions grant the emotional impact of realizing mortality as a concrete reality from prior abstract considerations. Pt was reassured that no matter where they are along this trajectory, they are not alone - their medical team will remain by their side through their journey. Discussed the pros/cons of accepting help when especially weakened and distressed by pain-which would also help provide relief/decrease caregiver burden/strain. he remained very distrusting that hospice was covered by medicare and insisted he would not accept hospice bc it will cost him money. Care t can continue this discussion with pt over time. Thank you for allowing us to participate in the ongoing care of this patient. Please don't hesitate to call or page with any additional concerns. Dr. Rimma Mcdaniels DNP Director, Palliative Care Supervising Physician Co-Signing Physician Notes See above in plan Thank you for allowing us to participate in the ongoing care of this patient. Please don't hesitate to call or page with any additional concerns. Dr. Rimma Mcdaniels DNP Director, Palliative Care History of Present Illness Reason for Consultation: Goals of Care Discussion Requesting Physician: Dr. Arreola Attending Physician: Wil Arreola MD History of Present Illness 78 year old male with a past medical history of duodenal ulcer, DM2 currently admitted with osteomyelitis secondary to PAD. S/p left 1st and 5th toe amputations 06/19, transmetatarsal amputation of left foot 06/26. Pt was seen at bedside this afternoon. Complaining of left leg pain and trouble sleeping, but otherwise no complaints. He is able articulate that he currently has an infection of his left foot. He states that vascular surgery/podiatry are recommending BKA, he does not consent to this. He states that he knows not moving forward with the surgery could result in worsening of his infection which could ultimately lead to . He states that he wants to go home. Lives with his , but does not want her updated. Nursing states that he has been refusing medications and meal trays. Allergies Allergy/AdvReac Type Severity Reaction Status Date / Time morphine AdvReac Severe "STOPS MY Verified 06/18/23 15:02 HEART" diazepam AdvReac Intermediate HALLUCINATE Verified 06/18/23 15:02 S hydromorphone [From Dilaudid] AdvReac Intermediate unresponsiv Verified 06/18/23 15:02 eness propoxyphene AdvReac Intermediate DRUG Verified 06/18/23 15:02 INTOLERANCE trazodone AdvReac Intermediate GI UPSET Verified 06/18/23 15:02 Home Medications Medication Instructions Recorded Confirmed Type acetaminophen 500 mg tablet 1,000 mg PO Q8H PRN Pain 06/05/19 06/18/23 History (Tylenol Extra Strength) nitroglycerin 0.4 mg sublingual 0.4 mg sublingual UD PRN Chest Pain 11/04/20 06/18/23 History tablet (Nitrostat) pen needle, diabetic 31 gauge x #400 ea 07/11/21 11/28/22 Rx 3/16" (BD Ultra-Fine Mini Pen Needle) cyanocobalamin (vitamin B-12) 1,000 mcg PO QAM 08/10/21 06/18/23 History 1,000 mcg tablet (Vitamin B-12) blood sugar diagnostic (OneTouch #100 ea 08/26/21 11/28/22 Rx Ultra Test strips) kgppdqze-[id number] 300 mcg-K 60 1 tab PO DAILY 09/01/21 06/18/23 History mcg-lycop 600 mcg-lutein 300 mcg tablet (Centrum Silver Men) Super Beta Prostate 1 tab PO QAM 09/05/21 06/18/23 History insulin glargine 100 unit/mL (3 15 unit subcut QPM 10/12/21 06/18/23 History mL) subcutaneous pen (Lantus Solostar U-100 Insulin) insulin lispro 100 unit/mL 5 - 7 unit subcut TID 10/12/21 06/18/23 History subcutaneous pen (Humalog KwikPen (U-100) Insulin) clopidogrel 75 mg tablet 75 mg PO DAILY #90 tabs 12/09/21 06/18/23 Rx tamsulosin 0.4 mg capsule 0.4 mg PO DAILY #90 caps 12/09/21 06/18/23 Rx atorvastatin 40 mg tablet (Lipitor) 40 mg PO QAM 04/12/22 06/18/23 History pantoprazole 40 mg tablet,delayed 40 mg PO DAILY #30 tabs 09/26/22 06/18/23 Rx release Patient History Medical History (Updated 07/02/23 @ 15:16 by Becky Ortiz DO) Poor historian GERD (gastroesophageal reflux disease) On anticoagulant therapy Kidney stones hx History of COVID-06 May 2022 at a [facility] [place] Peripheral neuropathy Prostate cancer pt did not acknowledge. Sepsis hx Schizoaffective disorder pt denies JUANCARLOS (acute kidney injury) BPH (benign prostatic hyperplasia) Amputated toe of left foot Cellulitis Osteomyelitis hx Diabetic ulcer of toe hx History of diverticulosis Mild cognitive impairment alert and oriented x3 -- "forgetful about his history" Stroke HX X 2-11/2004 AND 09/2019-F/U DR NÚÑEZ Orthostatic dizziness at times Failure of outpatient treatment Venous stasis ulcers of both lower extremities hx in 2019 Venous (peripheral) insufficiency Recurrent falls Parkinsonism per medical record - pt unaware Intermittent explosive disorder Delusional disorder, somatic type not currently -- pt unaware -- pt alert and oriented x3 at this time. Alcohol abuse pt states he quit "a long time ago" Chronic diastolic CHF (congestive heart failure) Benign colonic polyp Dyslipidemia History of tobacco use Nephrolithiasis Raynauds phenomenon Stage III chronic kidney disease Tubular adenoma of colon History of CVA (cerebrovascular accident) hx in 2004 and 2019 --> follows with Dr Núñez. Migraines hx Acute on chronic renal insufficiency pt unsure Osteoarthritis Diabetes mellitus, type 2 Hypertension Hyperlipidemia Myocardial Infarction 2004--follows with Dr. Mejia Surgical History H/O left cataract extraction S/P CABG (coronary artery bypass graft) 4 [facility] [place] S/P sinus surgery History of lumbar discectomy x2 History of carpal tunnel release of both wrists History of open reduction and internal fixation (ORIF) procedure left ankle--hardware in place History of arthroscopy of left knee History of lithotripsy x2 History of colonoscopy History of tonsillectomy and adenoidectomy Status post uvulopalatopharyngoplasty History of right cataract extraction History of heart artery stent (1998) x1 stent History of cardiac cath x4-5, last 05/19/2019 [facility] NO RECENT STENTS Family History Father , age 74 of an NC Diabetes Prostate cancer Colorectal cancer Myocardial infarction Brother Prostate cancer Uncle Colorectal cancer Father Myocardial infarction Mother Myocardial infarction Stroke Other Dementia No family history of adverse response to anesthesia Denies family history of Ovarian cancer Breast cancer Social History Smoking Status: Former smoker Tobacco Type: Cigarettes Age Quit Using Tobacco: 71; packs per day: 3; Cigarettes Per Day: 3; Second Hand Exposure: Yes (hx); Do You Dip or Chew Tobacco: No (quit "a long time ago"); Hx Alcohol Use: No Hx Substance Use: No Preferred Language: [place] Communication Ability: Effective Communication Ability Comment: Patient with confusion. 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 Refuses exam. Results & Data Vital Signs (Past 12 Hours) Vital Signs Temp Pulse Pulse Resp BP BP Pulse Ox 07/02/23 10:56 36.6 C 78 24 98/48 L 96 07/02/23 07:26 36.9 C 82 21 110/64 95 07/02/23 06:20 71 07/02/23 02:56 36.6 C 81 19 113/74 97 O2 Del Method 07/02/23 10:56 Room Air 07/02/23 07:26 Room Air 07/02/23 06:20 07/02/23 02:56 Room Air
[2023-07-02] MEDS: HYDROmorphone INJ 0.5 MG/0.5 ML SYR IV PRN (14:57)
[2023-07-02] MEDS: oxyCODONE HCL IR 5 MG TAB (IMMEDIATE RELEASE) PO PRN (20:04)
[2023-07-02] MEDS: MIRTAZAPINE TAB 15 MG TAB PO SCH (20:05)
[2023-07-03] MEDS: UNASYN 3000MG / NS q6h IV SCH ×4 (01:09→17:30)
[2023-07-03] MEDS: HEPARIN SOD 5,000 UNIT/0.5 ML VIAL SQ SCH ×3 (05:04→22:25)
[2023-07-03] MEDS: HYDROmorphone INJ 0.5 MG/0.5 ML SYR IV PRN ×3 (05:07→22:21)
[2023-07-03 06:17] LABS: BUN Creatinine Ratio 29.7 (10-20); Calcium 8.6 mg/dl (8.6-10.3); Creatinine Clr Calc Pharmacy 54.2 ml/min; Est GFR (African American) 73.8 ml/min; Est GFR (Non-African American) 63.7 ml/min; Potassium 3.9 mmol/L (3.5-5.1)
[2023-07-03 06:23] LABS: Hematocrit (blood only) 39.3 % (42.0-52.0); Hemoglobin 13.6 g/dl (14.0-18.0); Mean Corpuscular Hemoglobin 31.8 pg (25.0-34.0); Mean Corpuscular Hgb Conc 34.6 g/dL (32.0-36.0); Mean Corpuscular Volume 91.8 fL (80.0-100.0); Mean Platelet Volume 10.9 fL (9.4-12.4); Platelet Count 222 K/uL (130-400); RDW Coefficient of Variation 13.5 % (11.5-14.5); RDW Standard Deviation 45.1 fL (36.4-46.3); Red Blood Count 4.28 M/uL (4.70-6.10); White Blood Count 5.16 K/ul (4.8-10.8)
[2023-07-03] MEDS: POLYETHYLENE (MIRALAX) 17 GM PACK PO SCH (08:21)
[2023-07-03] MEDS: SENNA 8.6 MG TAB PO SCH (08:21)
[2023-07-03] MEDS: PANTOprazole 40 MG TAB PO SCH ×2 (08:21→22:25)
[2023-07-03] MEDS: CEROVITE ADV FORMULA TAB PO SCH (08:22)
[2023-07-03] MEDS: NYSTATIN SUSP 500,000 U/5 ML UDC PO SCH ×4 (08:22→22:22)
[2023-07-03] MEDS: SUCRALFATE 1 GM/10 ML UDC PO SCH ×4 (08:22→22:22)
[2023-07-03] MEDS: ACETAMINOPHEN 500 MG TAB PO SCH ×3 (08:22→22:23)
--- NOTE | 2023-07-03 11:55 | Palliative Care Progress Note ---
Date of Service July 03, 2023 Assessment & Plan (1) Advanced care planning/counseling discussion: Plan: Pt is agreeable to surgery/amputation. Concern for decisional making abilities given his consistent changing in decision making and concern for delirium. R jerilyn tran consult for further elevation for capacity. (2) Palliative care by specialist: Plan: Met with pt and provided overview of Palliative Medicine, a subspecialty that provides specialized medical care for people living with a serious illness by offering a focus on quality of life. Palliative Medicine is often conflated with hospice: I advised patient/family that Palliative and hospice can be partners but we are not the same. It is important to understand the difference so that we may be informed, and not afraid. Palliative Medicine works to improve QOL through reduction of symptom burden/more control over their illness, for both the patient and family. Palliative medicine clinicians are board certified, spec ially-trained and another member of the patient's medical care team. We often provide an extra layer of support because our care is based on the needs of the patient, not the prognosis; as such, it's appropriate at any age/advancing stage of a serious illness and can be provided along with curative treatment. Palliative Medicine clinicians are also trained in advanced communication methodologies, to facilitate complex discussions about advanced illness planning, which are needed to help assure that the treatment choices match the patient's goals, aka delivering Goal Concordant care. (3) Left leg pain: Plan: Pt notes uncontrolled pain in left leg. Added IV Dilaudid, not taking consistently, could consider increasing pain regimen if pain not adequately controlled. (4) Generalized weakness: Plan: Per discussion with primary team noted by prior to this admission. Secondary to multiple disease processes and worsened with acute infection. (5) Insomnia: Plan: Pt notes insomnia and previous trial of multiple medications for insomnia including Ativan. In discussion with hospitalist plan for trial of mirtazapine. (6) Gangrene: Plan: Currently in IV antibiotics, does not want amputation as vascular surgery and podiatry are recommending. Does note continued pain that is not well controlled. Pain regimen ordered. Plan * Mr Blanchard reports pain has improved "a little" and is amenable to trying a slightly higher dose: we will change to Dilaudid 0.6mg IV q2h prn * He also adds that he is agreeable to surgery but nursing notes he has refused all meds, told her he will not be taking noon Abtx and does not want other prn meds when offered. he continued to complain of severe pain but when meds were offered he refused. * Recommend a formal psychiatry eval for competency. pt remains consistently inconsistent. I do not believe he has decisional capacity in a sustained manner and would not recc we proceed with a complex surgery if he is going to continue to refuse medications, interventions etc., post operatively and these actions may lead to more complications and ultimately mortality. * Updated primary team and nursing. * Patient was seen together with Dr Ortiz/[facility] med resident. Thank you for allowing us to participate in the ongoing care of this patient. Please don't hesitate to call or page with any additional concerns. Dr. Rimma Mcdaniels DNP Director, Palliative Care Admission and Anticipated Discharge Date Admission Date: June 18, 2023 Subjective Pt seen at bedside this morning. Continues to complain of left leg pain. Some relief with Dilaudid yesterday. Continues to have insomnia. States that he is willing to have further surgery/amputation. Per nursing he has been refusing a number of his medications. Denies nausea, constipation. Review of Systems Review of Systems: As per above Physical Exam Physical Exam: Constitutional: well-appearing, no acute distress HEENT: NCAT, no conjunctival injection CV: regular rhythm, no murmur appreciated, extremities well-perfused Resp: CTABL, no wheezes/rales/rhonchi appreciated, no increased work of breathing GI: soft, nondistended, nontender, BS normoactive MSK: no gross deformities appreciated Skin: warm, dry, no rash appreciated, left LE wrapped in bandages; dressing clean and dry Neuro: alert, oriented, no focal neurologic deficit appreciated Results & Data Vital Signs (Past 12 Hours) Vital Signs Temp Pulse Resp BP Pulse Ox O2 Del Method 07/03/23 10:42 36.4 C L 81 19 100/58 L 93 Room Air 07/03/23 08:00 Room Air 07/03/23 07:37 36.4 C L 69 20 112/68 97 Room Air 07/03/23 03:33 36.6 C 70 18 98/71 L 95 Room Air (5) Insomnia Insomnia type: unspecified Qualified Code(s): G47.00 - Insomnia, unspecified
[2023-07-03] MEDS ORDERED: bisacodyL 10 MG SUPP PR PRN (12:05)
--- NOTE | 2023-07-03 12:05 | Hospitalist Progress Note ---
Date of Service July 03, 2023 Assessment & Plan (1) Sepsis: Plan: 2nd to left foot gangrene/osteomyelitis of 1st and 5th toes, s/p amputation of both toes by Dr Price. Intra-op culture from the 1st/5th toe amputations grew group C strep. Remains on IV unasyn. Ultimately needed TMA of the left foot - 06/26/23 - also by Dr Price. Unfortunately angiography completed by Dr Sher on 06/22/23 revealed severe PAD of the left leg with no option for bypass. Dr Price re-evaluated the left foot on 07/01/23 and unfortunately the TMA is already necrosing. Dr Sher met with the patient 07/02 to discuss BKA and possibly even AKA and patient initially declined any further surgery. Mr Blanchard is now going back/forth about his wishes. At one point today he told nursing staff he wanted to have additional amputation, but at the same time today he was refusing simple medications. Palliative care met with the patient yesterday & today - care plan still uncertain. Very complex situation. I believe Mr Blanchard needs another 1-2 days to process all of the information being presented and to make a decision with his family about the left foot. In meantime - continue IV abx, IV pain meds, etc. (2) Osteomyelitis: Plan: Status post first and fifth toe amputations on the left foot 06/[address] Price, podiatry Ultimately needed left TMA 06/26 due to nonhealing wounds (1st/5th MTPs) due to significant vasculopathy - surgery also by Dr Price Remains on IV unasyn see #1 above (3) Duodenal ulcer: Plan: 08/2022 - EGD with esophagitis and duodenal ulcers however, following the EGD, he never took acid reduction with PPI he has had abdominal pains for months and weight loss now on PPI twice daily and carafate QID (4) Controlled type 2 diabetes mellitus with neurologic complication, with long- term current use of insulin: Plan: HbA1c 7% Per staff he had been declining insulin earlier in the admission insulin stopped since he was declining such (5) Unintentional weight loss of 10% body weight within 6 months: Plan: patient told prior attending physician he did NOT want further work-up for his abdominal pains or weight loss (6) Severe protein-calorie malnutrition: Plan: 15kg weight loss since late 2021 see discussion above (7) Insomnia: Plan: in light of weight loss, poor appetite, insomnia, prior mental health issues (as listed in chart) started remeron 7.5mg HS - 15 - tolerated such (8) CAD in [place] artery: Plan: no ischemic symptoms at this time statin, plavix, etc remain on hold (9) Peripheral arterial occlusive disease: Plan: severe as seen on arteriogram on 06/22/[address] Sher unfortunately he is not a candidate for bypass as per Dr Sher making BKA or AKA the best option for healing for his left leg see #1 above re: decision whether to pursue with additional Rx (10) DVT prophylaxis: Plan: heparin 5000 TID (11) Candidiasis of mouth and esophagus: Plan: nystatin solution 5ml qid swish/spit Plan CODE STATUS: DNR/DNI Appreciate Dr Sher, Dr Price, and Dr Mcdaniels's assistance Of note - patient does have a documented psychiatric history However, he understands cause & effect of his potential decisions - he voices understanding that if he does not pursue additional surgery on the L foot there is a high likelihood of ongoing infection/gangrene, sepsis, and even will cancel PT/OT evals since he is declining them will update his by phone later today Admission and Anticipated Discharge Date Admission Date: June 18, 2023 Subjective this am apparently he refused all of his PO meds he then declined his IV unasyn but finally took it later in the morning during my bedside rounds he allowed me to take his L foot dressings off he immediately said "that looks worse" (than the other day) he did sleep a little better overnight appetite remains poor does endorse mild abdominal pain - no worse than prior he is not sure if he wants additional surgery on the left foot he understands that there is a chance that the wound, if he has BKA or AKA, may not heal he is not sure he wants to take those chances he knows he will have pain even after having more surgery he does ask for his pain meds to be adjusted again we discussed that if a BKA or AKA is successful he could get a prosthetic leg tele - NSR overnight Review of Systems Review of Systems: gen - declined PT today when they came to evaluate him cv - no chest pain, no orthopnea pulm - no dyspnea GI - no vomiting but is having some ongoing low-grade abdominal pain Physical Exam Physical Exam: gen - NAD, thin, awake/alert, flat affect - no change from prior mouth - MM dry, geographic tongue, ? thrush plaques on tongue neck - no JVD heart - irregular (extra beats), s1 s2, no murmur lungs - CTA b/l abd - soft NT ND BS+ vascular - L popliteal pulse absent, DP and PT pulses L foot 1+; right popliteal 1+; right foot pulses 1+ musculo - left foot dressings - I carefully removed these; TMA incision with black eschar and sutures embedded in the eschar; there are areas of ischemic appearing skin (white patches surrounded by ecchymoses and erythema); cool to touch; poor cap refill; mild foul odor, but no drainage no edema of either leg Results & Data Results & Data Vital Signs (Past 12 Hours) Vital Signs Temp Pulse Resp BP Pulse Ox O2 Del Method 07/03/23 10:42 36.4 C L 81 19 100/58 L 93 Room Air 07/03/23 08:00 Room Air 07/03/23 07:37 36.4 C L 69 20 112/68 97 Room Air 07/03/23 03:33 36.6 C 70 18 98/71 L 95 Room Air Laboratory Results Laboratory Results - last 24 hr 07/03/23 05:22 WBC 5.16 RBC 4.28 L Hgb 13.6 L Hct 39.3 L MCV 91.8 MCH 31.8 MCHC 34.6 RDW Std Deviation 45.1 RDW Coeff of Gissel 13.5 Plt Count 222 MPV 10.9 Sodium 140 Potassium 3.9 Chloride 108 H Carbon Dioxide 23 Anion Gap 9 BUN 33 H Creatinine 1.11 Est Cr Clr Drug Dosing 54.2 Est GFR ( Amer) 73.8 Est GFR (Non-Af Amer) 63.7 BUN/Creatinine Ratio 29.7 H Glucose 126 H Calcium 8.6 PG Care Time/CCT Total # of Minutes Spent Total Time Spent with Patient: Total time spent is greater than 50% in coordination of care (as documented) at patient's floor/unit and/or counseling patient: Coding Level of Care Code 65726 SUB INP/OBS CARE 2/35MIN Diagnoses Sepsis A41.9 Sepsis acute organ dysfunction status: without acute organ dysfunction Sepsis type: sepsis due to unspecified organism Osteomyelitis M86.9 Laterality: left Osteomyelitis location: foot Osteomyelitis type: unspecified type Duodenal ulcer K26.9 Controlled type 2 diabetes mellitus with neurologic complication, with long-term current use of insulin E11.49; Z79.4 Unintentional weight loss of 10% body weight within 6 months R63.4 Severe protein-calorie malnutrition E43 Insomnia G47.00 Insomnia type: unspecified CAD in [place] artery I25.10 Peripheral arterial occlusive disease I77.9 DVT prophylaxis Z29.9 Candidiasis of mouth and esophagus B37.81; B37.0 (1) Sepsis Sepsis acute organ dysfunction status: without acute organ dysfunction Sepsis type: sepsis due to unspecified organism Qualified Code(s): A41.9 - Sepsis, unspecified organism (2) Osteomyelitis Laterality: left Osteomyelitis location: foot Osteomyelitis type: unspecified type Qualified Code(s): M86.9 - Osteomyelitis, unspecified (7) Insomnia Insomnia type: unspecified Qualified Code(s): G47.00 - Insomnia, unspecified
--- NOTE | 2023-07-03 13:09 | Palliative Care Progress Note ---
Date of Service July 03, 2023 Assessment & Plan (1) Left leg pain: Plan: Inc dilaudid to 0.6mg IV q2h prn (2) Constipation: Plan: recc changing Senna to Senna-S 2 tabs PO bid Assure proper hydration and oral intake (3) Generalized weakness: Plan: cachectic and frail (4) Palliative care by specialist: (5) Advanced care planning/counseling discussion: Plan Assessment & Plan (1) Advanced care planning/counseling discussion: Plan: Pt is agreeable to surgery/amputation. Concern for decisional making abilities given his consistent changing in decision making and concern for delirium. Recommend pycommunity health consult for further elevation for capacity. (2) Palliative care by specialist: Plan: Met with pt and provided overview of Palliative Medicine, a subspecialty that provides specialized medical care for people living with a serious illness by offering a focus on quality of life. Palliative Medicine is often conflated with hospice: I advised patient/family that Palliative and hospice can be partners but we are not the same. It is important to understand the difference so that we may be informed, and not afraid. Palliative Medicine works to improve QOL through reduction of symptom burden/more control over their illness, for both the patient and family. Palliative medicine clinicians are board certified, specially-trained and another member of the patient's medical care team. We ofte n provide an extra layer of support because our care is based on the needs of the patient, not the prognosis; as such, it's appropriate at any age/advancing stage of a serious illness and can be provided along with curative treatment. Palliative Medicine clinicians are also trained in advanced communication methodologies, to facilitate complex discussions about advanced illness planning, which are needed to help assure that the treatment choices match the patient's goals, aka delivering Goal Concordant care. (3) Left leg pain: Plan: Pt notes uncontrolled pain in left leg. Added IV Dilaudid, not taking consistently, could consider increasing pain regimen if pain not adequately controlled. (4) Generalized weakness: Plan: Per discussion with primary team noted by prior to this admission. Secondary to multiple disease processes and worsened with acute infection. (5) Insomnia: Plan: Pt notes insomnia and previous trial of multiple medications for insomnia including Ativan. In discussion with hospitalist plan for trial of mirtazapine. (6) Gangrene: Plan: Currently in IV antibiotics, does not want amputation as vascular surgery and podiatry are recommending. Does note continued pain that is not well controlled. Pain regimen ordered. Plan * Mr Blanchard reports pain has improved "a little" and is amenable to trying a slightly higher dose: we will change to Dilaudid 0.6mg IV q2h prn * He also adds that he is agreeable to surgery but nursing notes he has refused all meds, told her he will not be taking noon Abtx and does not want other prn meds when offered. he continued to complain of severe pain but when meds were offered he refused. * Recommend a formal psychiatry eval for competency. pt remains consistently inconsistent. I do not believe he has decisional capacity in a sustained manner and would not recc we proceed with a complex surgery if he is going to continue to refuse medications, interventions etc., post operatively and these actions may lead to more complications and ultimately mortality. * Updated primary team and nursing. * Patient was seen together with Dr Ortiz/[facility] med resident. Thank you for allowing us to participate in the ongoing care of this patient. Please don't hesitate to call or page with any additional concerns. Dr. Rimma Mcdaniels DNP Director, Palliative Care Admission and Anticipated Discharge Date Admission Date: June 18, 2023 Subjective Pt seen at bedside this morning. Continues to complain of left leg pain. Some relief with Dilaudid yesterday. Continues to have insomnia. States that he is willing to have further surgery/amputation. Per nursing he has been refusing a number of his medications. Denies nausea, constipation. Review of Systems Review of Systems: As per above Physical Exam Physical Exam: Constitutional: well-appearing, no acute distress HEENT: NCAT, no conjunctival injection CV: regular rhythm, no murmur appreciated, extremities well-perfused Resp: CTABL, no wheezes/rales/rhonchi appreciated, no increased work of breathing GI: soft, nondistended, nontender, BS normoactive MSK: no gross deformities appreciated Skin: warm, dry, no rash appreciated, left LE wrapped in bandages; dressing clean and dry Neuro: alert, oriented, no focal neurologic deficit appreciated Results & Data Vital Signs (Past 12 Hours) Vital Signs Temp Pulse Resp BP Pulse Ox O2 Del Method 07/03/23 10:42 36.4 C L 81 19 100/58 L 93 Room Air 07/03/23 08:00 Room Air 07/03/23 07:37 36.4 C L 69 20 112/68 97 Room Air 07/03/23 03:33 36.6 C 70 18 98/71 L 95 Room Air (5) Insomnia Insomnia type: unspecified Qualified Code(s): G47.00 - Insomnia, unspecified Admission and Anticipated Discharge Date Admission Date: June 18, 2023 Subjective pt seen in ICU he tells me pain is better somewhat he says he will be planning to proceed with amputation adding "what choice do I have?" then nursing advised he has been steadily refusing meds and interventions. he denies n/v/c/d he states insomnia is still a problem Review of Systems Review of Systems: All systems reviewed & are unremarkable except as noted in Subjective Physical Exam Physical Exam: see previous progress note Assessment & Plan (1) Advanced care planning/counseling di scussion: Plan: Pt is agreeable to surgery/amputation. Concern for decisional making abilities given his consistent changing in decision making and concern for delirium. Recommend pycommunity health consult for further elevation for capacity. (2) Palliative care by specialist: Plan: Met with pt and provided overview of Palliative Medicine, a subspecialty that provides specialized medical care for people living with a serious illness by offering a focus on quality of life. Palliative Medicine is often conflated with hospice: I advised patient/family that Palliative and hospice can be partners but we are not the same. It is important to understand the difference so that we may be informed, and not afraid. Palliative Medicine works to improve QOL through reduction of symptom burden/more control over their illness, for both the patient and family. Palliative medicine clinicians are board certified, specially-trained and another member of the patient's medical care team. We oft en provide an extra layer of support because our care is based on the needs of the patient, not the prognosis; as such, it's appropriate at any age/advancing stage of a serious illness and can be provided along with curative treatment. Palliative Medicine clinicians are also trained in advanced communication methodologies, to facilitate complex discussions about advanced illness planning, which are needed to help assure that the treatment choices match the patient's goals, aka delivering Goal Concordant care. (3) Left leg pain: Plan: Pt notes uncontrolled pain in left leg. Added IV Dilaudid, not taking consistently, could consider increasing pain regimen if pain not adequately controlled. (4) Generalized weakness: Plan: Per discussion with primary team noted by prior to this admission. Secondary to multiple disease processes and worsened with acute infection. (5) Insomnia: Plan: Pt notes insomnia and previous trial of multiple medications for insomnia including Ativan. In discussion with hospitalist plan for trial of mirtazapine. (6) Gangrene: Plan: Currently in IV antibiotics, does not want amputation as vascular surgery and podiatry are recommending. Does note continued pain that is not well controlled. Pain regimen ordered. Plan * Mr Blanchard reports pain has improved "a little" and is amenable to trying a slightly higher dose: we will change to Dilaudid 0.6mg IV q2h prn * He also adds that he is agreeable to surgery but nursing notes he has refused all meds, told her he will not be taking noon Abtx and does not want other prn meds when offered. he continued to complain of severe pain but when meds were offered he refused. * Recommend a formal psychiatry eval for competency. pt remains consistently inconsistent. I do not believe he has decisional capacity in a sustained manner and would not recc we proceed with a complex surgery if he is going to continue to refuse medications, interventions etc., post operatively and these actions may lead to more complications and ultimately mortality. * Updated primary team and nursing. * Patient was seen together with Dr Ortiz/[facility] med resident. Thank you for allowing us to participate in the ongoing care of this patient. Please don't hesitate to call or page with any additional concerns. Dr. Rimma Mcdaniels DNP Director, Palliative Care Admission and Anticipated Discharge Date Admission Date: June 18, 2023 Subjective Pt seen at bedside this morning. Continues to complain of left leg pain. Some relief with Dilaudid yesterday. Continues to have insomnia. States that he is willing to have further surgery/amputation. Per nursing he has been refusing a number of his medications. Denies nausea, constipation. Review of Systems Review of Systems: As per above Physical Exam Physical Exam: Constitutional: w ell-appearing, no acute distress MARCIAL NT: NCAT, no conju nctival injection CV: regular rhythm , no murmur apprec iated, extremities well-perfused Res p: CTABL, no wheez es/rales/rhonchi a ppreciated, no inc reased work of tiara athing GI: soft, n ondistended, nonte nder, BS normoacti ve MSK: no gross d eformities appreci ated Skin: warm, d ry, no rash apprec iated, left LE wra pped in bandages; dressing clean and dry Neuro: alert , oriented, no foc al neurologic defi cit appreciated Results & Data Vital Signs (Past 12 Hours) Vital Signs Temp Pulse Resp BP Pulse Ox O2 Del Method 07/03/23 10:42 36.4 C L 81 19 100/58 L 93 Room Air 07/03/23 08:00 Room Air 07/03/23 07:37 36.4 C L 69 20 112/68 97 Room Air 07/03/23 03:33 36.6 C 70 18 98/71 L 95 Room Air (5) Insomnia Insomnia type: unspecified Qualified Code(s): G47.00 - Insomnia, unspecified Results & Data Vital Signs (Past 12 Hours) Vital Signs Temp Pulse Resp BP Pulse Ox O2 Del Method 07/03/23 10:42 36.4 C L 81 19 100/58 L 93 Room Air 07/03/23 08:00 Room Air 07/03/23 07:37 36.4 C L 69 20 112/68 97 Room Air 07/03/23 03:33 36.6 C 70 18 98/71 L 95 Room Air PG Care Time/CCT Total # of Minutes Spent Total Time Spent: 75 Total Time Spent with Patient: Total time spent is greater than 50% in coordination of care (as documented) at patient's floor/unit and/or counseling patient: I spent 75 minutes overall addressing this case: 15 min in medical data review/discussion with referring provider(s) and/or preparation for the visit 15 min in direct interaction with the patient/exam 20 min in Advance Care Planning/Goals of Care discussions as detailed above in note (must be >16min) 10 min in subsequent review and synthesis of assessment and plan 15 min communicating with other providers regarding the patient's case: [place] [address] SUB INP/OBS CARE 3/50MIN Patient Type Established History Comprehensive Exam Comprehensive Medical Decision Making High Complexity Diagnoses Left leg pain M79.605 Slow transit constipation K59.01 Constipation type: slow transit constipation Generalized weakness R53.1 Palliative care by specialist Z51.5 Advanced care planning/counseling discussion Z71.89 (2) Constipation Constipation type: slow transit constipation Qualified Code(s): K59.01 - Slow transit constipation
[2023-07-03] MEDS: oxyCODONE HCL IR 5 MG TAB (IMMEDIATE RELEASE) PO PRN (13:45)
[2023-07-03] MEDS: MIRTAZAPINE TAB 15 MG TAB PO SCH (22:24)
[2023-07-04] MEDS: UNASYN 3000MG / NS q6h IV SCH ×3 (00:53→12:47)
[2023-07-04] MEDS: oxyCODONE HCL IR 5 MG TAB (IMMEDIATE RELEASE) PO PRN ×2 (05:51→12:45)
[2023-07-04] MEDS: HEPARIN SOD 5,000 UNIT/0.5 ML VIAL SQ SCH ×3 (05:52→21:43)
[2023-07-04] MEDS: SUCRALFATE 1 GM/10 ML UDC PO SCH ×4 (09:20→21:44)
[2023-07-04] MEDS: ACETAMINOPHEN 500 MG TAB PO SCH ×3 (09:21→21:42)
[2023-07-04] MEDS: NYSTATIN SUSP 500,000 U/5 ML UDC PO SCH ×4 (09:22→21:42)
[2023-07-04] MEDS: PANTOprazole 40 MG TAB PO SCH ×2 (09:22→21:43)
[2023-07-04] MEDS: SENNA 8.6 MG TAB PO SCH (09:24)
[2023-07-04] MEDS: CEROVITE ADV FORMULA TAB PO SCH (09:24)
[2023-07-04] MEDS: POLYETHYLENE (MIRALAX) 17 GM PACK PO SCH (09:25)
--- NOTE | 2023-07-04 12:04 | Palliative Care Progress Note ---
Date of Service July 04, 2023 Assessment & Plan (1) Advanced care planning/counseling discussion: Plan: Pt is agreeable to surgery/amputation. Some concern for delirium given changes in decision making, although he has been consistent over the past 2 days that is willing to have surgery to treat his infection. Recommended pysch consult for further elevation for capacity. (2) Palliative care by specialist: Plan: Met with pt and provided overview of Palliative Medicine, a subspecialty that provides specialized medical care for people living with a serious illness by offering a focus on quality of life. Palliative Medicine is often conflated with hospice: I advised patient/family that Palliative and hospice can be partners but we are not the same. It is important to understand the difference so that we may be informed, and not afraid. Palliative Medicine works to improve QOL through reduction of symptom burden/more control over their illness, for both the patient and family. Palliative medicine clinicians are board certified, specially-trained and another member of the patient's medical care team. We often provide an extra layer of support because our care is based on the needs of the patient, not the prognosis; as such, it's appropriate at any age/advancing stage of a serious illness and can be provided along with curative treatment. Palliative Medicine clinicians are also trained in advanced communication methodologies, to facilitate complex discussions about advanced illness planning, which are needed to help assure that the treatment choices match the patient's goals, aka delivering Goal Concordant care. (3) Left leg pain: Plan: Pt notes uncontrolled pain in left leg. Added IV Dilaudid, pain is better controlled today. (4) Generalized weakness: Plan: Per discussion with primary team noted by prior to this admission. Secondary to multiple disease processes and worsened with acute infection. (5) Gangrene: Plan: Currently in IV antibiotics, surgery per vascular surgery vs podiatry. Plan * Consistently agreeing to surgery albeit with a general sense of "I don't have a choice." * Remains inconsistently inconsistently with remainder of medical regimen and continues refusing medications at whim. I remain concerned this will not ariadne well for post operative recovery and mcc viability. He will need placement and SNF rehab though is suspec the may continue refusing therapy interventions as well. * Strongly recc psych consultation for competency evaluation and to determine if there may be medication options to treat his underlying mental health issues. * Pt was seen together with Dr Ortiz, family med resident. The above note reflects a jointly visit and my addendum/additions and my clinical recommendations. * TS 55min * MDM High complexity Thank you for allowing us to participate in the ongoing care of this patient. Please don't hesitate to call or page with any additional concerns. Dr. Rimma Mcdaniels DNP Director, Palliative Care Admission and Anticipated Discharge Date Admission Date: June 18, 2023 Subjective Pt seen at bedside this morning. States pain has been well controlled today. Still not getting great sleep. Notes that he has discussed further surgery, realizes this is what is needed to treat his infection and states he would be willing to have. Review of Systems Review of Systems: As per above Physical Exam Physical Exam: Constitutional: well-appearing, no acute distress HEENT: NCAT, no conjunctival injection CV: regular rhythm, no murmur appreciated, extremities well-perfused Resp: CTABL, no wheezes/rales/rhonchi appreciated, no increased work of breathing GI: soft, nondistended, nontender MSK: no gross deformities appreciated Skin: warm, dry, no rash appreciated, left LE wrapped in bandages; dressing clean and dry Neuro: alert, oriented, no focal neurologic deficit appreciated Results & Data Vital Signs (Past 12 Hours) Vital Signs Temp Pulse Resp BP BP Pulse Ox O2 Del Method 07/04/23 10:34 36.7 C 81 19 103/55 L 95 Room Air 07/04/23 08:34 Room Air 07/04/23 07:25 36.6 C 68 17 98/59 L 92 Room Air 07/04/23 04:02 37.0 C 76 18 113/68 93 Room Air Laboratory Results data reviewed Diagnostic Findings data reviewed
--- NOTE | 2023-07-04 18:05 | Hospitalist Progress Note ---
Date of Service July 04, 2023 Assessment & Plan (1) Sepsis: Plan: 2nd to left foot gangrene/osteomyelitis of 1st and 5th toes, s/p amputation of both toes by Dr Price. Intra-op culture from the 1st/5th toe amputations grew group C strep. Remains on IV unasyn. Ultimately needed TMA of the left foot - 06/26/23 - also by Dr Price. Unfortunately angiography completed by Dr Sher on 06/22/23 revealed severe PAD of the left leg with no option for bypass. Dr Price re-evaluated the left foot on 07/01/23 and unfortunately the TMA is already necrosing. Dr Sher met with the patient 07/02 to discuss BKA and possibly even AKA and patient initially declined any further surgery. After several days of thinking about options patient now consistently telling nursing, providers, etc he is ready & willing to undergo left foot amputation. There has been some question about his capacity for medical decision making but he appears to understand the risks of not doing surgery (recurrent sepsis/gangrene/) and understands the risks/benefits of doing amputation. [id number], given his prior psych history, will ask psychiatry to make a formal evaluation. Consult placed. I sent a [place] message to Dr Sher regarding pt's final decision re: amputation. (2) Osteomyelitis: Plan: Status post first and fifth toe amputations on the left foot 06/[address] Price, podiatry Ultimately needed left TMA 06/26 due to nonhealing wounds (1st/5th MTPs) due to significant vasculopathy - surgery also by Dr Price Remains on IV unasyn see #1 above (3) Duodenal ulcer: Plan: 08/2022 - EGD with esophagitis and duodenal ulcers however, following the EGD, he never took acid reduction with PPI he has had abdominal pains for months and weight loss now on PPI twice daily and carafate QID pain improved (4) Controlled type 2 diabetes mellitus with neurologic complication, with long- term current use of insulin: Plan: HbA1c 7% Per staff he had been declining insulin earlier in the admission insulin stopped since he was declining such (5) Unintentional weight loss of 10% body weight within 6 months: Plan: patient told prior attending physician he did NOT want further work-up for his abdominal pains or weight loss (6) Severe protein-calorie malnutrition: Plan: 15kg weight loss since late 2021 see discussion above cont remeron - consider increase to 15mg (7) Insomnia: Plan: in light of weight loss, poor appetite, insomnia, prior mental health issues (as listed in chart) started remeron 7.5mg HS - 1/15 - tolerated such (8) CAD in [place] artery: Plan: no ischemic symptoms at this time statin, plavix, etc remain on hold (9) Peripheral arterial occlusive disease: Plan: severe as seen on arteriogram on 06/22/[address] Sher unfortunately he is not a candidate for bypass as per Dr Sher making BKA or AKA the best option for healing for his left leg see #1 above re: decision whether to pursue with additional Rx (10) DVT prophylaxis: Plan: heparin 5000 TID (11) Candidiasis of mouth and esophagus: Plan: nystatin solution 5ml qid swish/spit Plan CODE STATUS: DNR/DNI Appreciate Dr Sher, Dr Price, and Dr Mcdaniels's assistance Of note - patient does have a documented psychiatric history However, he understands cause & effect of his potential decisions - he voices understanding that if he does not pursue additional surgery on the L foot there is a high likelihood of ongoing infection/gangrene, sepsis, and even psych consult requested for capacity evaluation but, again, suspect he retains m edical decision ability cont IV pain meds cont IV unasyn Admission and Anticipated Discharge Date Admission Date: June 18, 2023 Subjective patient slept a little better last night still very little appetite drinking some boost he has decided he will go along with surgery he realizes "what needs to be done" pain in L foot is much better today with use of IV pain meds denies new areas of pain tele overnight - NSR with PACs and PVCs Review of Systems Review of Systems: gen - remains tired, weak, poor appetite cv - no chest pain or orthopnea pulm - no dyspnea GI - no report of pain today or N/V Physical Exam Physical Exam: gen - NAD, thin, awake/alert mouth - MM dry, geographic tongue neck - no JVD heart - irregular (extra beats), s1 s2, no murmur lungs - CTA b/l abd - soft NT ND BS+ vascular - pulses b/l feet unchanged musculo - left foot dressings - I did not remove these today Results & Data Results & Data Vital Signs (Past 12 Hours) Vital Signs Temp Pulse Resp BP BP Pulse Ox O2 Del Method 07/04/23 15:04 36.1 C L 60 18 91/61 L 96 Room Air 07/04/23 10:34 36.7 C 81 19 103/55 L 95 Room Air 07/04/23 08:34 Room Air 07/04/23 07:25 36.6 C 68 17 98/59 L 92 Room Air PG Care Time/CCT Total # of Minutes Spent Total Time Spent with Patient: Total time spent is greater than 50% in coordination of care (as documented) at patient's floor/unit and/or counseling patient: Coding Level of Care Code 64220 SUB INP/OBS CARE 2/35MIN Diagnoses Sepsis A41.9 Sepsis acute organ dysfunction status: without acute organ dysfunction Sepsis type: sepsis due to unspecified organism Osteomyelitis M86.9 Laterality: left Osteomyelitis location: foot Osteomyelitis type: unspecified type Duodenal ulcer K26.9 Controlled type 2 diabetes mellitus with neurologic complication, with long-term current use of insulin E11.49; Z79.4 Unintentional weight loss of 10% body weight within 6 months R63.4 Severe protein-calorie malnutrition E43 Insomnia G47.00 Insomnia type: unspecified CAD in [place] artery I25.10 Peripheral arterial occlusive disease I77.9 DVT prophylaxis Z29.9 Candidiasis of mouth and esophagus B37.81; B37.0 (1) Sepsis Sepsis acute organ dysfunction status: without acute organ dysfunction Sepsis type: sepsis due to unspecified organism Qualified Code(s): A41.9 - Sepsis, unspecified organism (2) Osteomyelitis Laterality: left Osteomyelitis location: foot Osteomyelitis type: unspecified type Qualified Code(s): M86.9 - Osteomyelitis, unspecified (7) Insomnia Insomnia type: unspecified Qualified Code(s): G47.00 - Insomnia, unspecified
[2023-07-04] MEDS: HYDROmorphone INJ 0.5 MG/0.5 ML SYR IV PRN (21:40)
[2023-07-04] MEDS: MIRTAZAPINE TAB 15 MG TAB PO SCH (21:43)
[2023-07-05] MEDS: oxyCODONE HCL IR 5 MG TAB (IMMEDIATE RELEASE) PO PRN (06:01)
[2023-07-05] MEDS: HEPARIN SOD 5,000 UNIT/0.5 ML VIAL SQ SCH ×3 (06:02→21:58)
[2023-07-05 06:36] LABS: Hematocrit (blood only) 40.5 % (42.0-52.0); Hemoglobin 13.7 g/dl (14.0-18.0); Mean Corpuscular Hemoglobin 31.7 pg (25.0-34.0); Mean Corpuscular Hgb Conc 33.8 g/dL (32.0-36.0); Mean Corpuscular Volume 93.8 fL (80.0-100.0); Mean Platelet Volume 10.7 fL (9.4-12.4); Platelet Count 229 K/uL (130-400); RDW Coefficient of Variation 13.5 % (11.5-14.5); RDW Standard Deviation 46.1 fL (36.4-46.3); Red Blood Count 4.32 M/uL (4.70-6.10); White Blood Count 5.86 K/ul (4.8-10.8)
[2023-07-05 06:37] LABS: BUN Creatinine Ratio 28.3 (10-20); Calcium 8.7 mg/dl (8.6-10.3); Creatinine Clr Calc Pharmacy 53.2 ml/min; Est GFR (African American) 72.3 ml/min; Est GFR (Non-African American) 62.4 ml/min; Magnesium 2.3 mg/dl (1.7-2.4); Potassium 4.2 mmol/L (3.5-5.1)
[2023-07-05] MEDS: ACETAMINOPHEN 500 MG TAB PO SCH ×3 (10:23→21:58)
[2023-07-05] MEDS: SENNA 8.6 MG TAB PO SCH (10:24)
[2023-07-05] MEDS: CEROVITE ADV FORMULA TAB PO SCH (10:25)
[2023-07-05] MEDS: NYSTATIN SUSP 500,000 U/5 ML UDC PO SCH ×4 (10:25→21:58)
[2023-07-05] MEDS: SUCRALFATE 1 GM/10 ML UDC PO SCH ×4 (10:25→21:58)
[2023-07-05] MEDS: PANTOprazole 40 MG TAB PO SCH ×2 (10:25→21:58)
[2023-07-05] MEDS: POLYETHYLENE (MIRALAX) 17 GM PACK PO SCH (10:25)
--- NOTE | 2023-07-05 11:57 | Psychiatric Consultation ---
Date of Consultation July 05, 2023 Impression / Recommendations Impression 78 yo male with a hx of episodic irritability, delusions, and escalona consistent with bipolar/schizoaffective dx's. His cognition appears no worse than last contact and his irritability seems his baseline as otherwise no evidence of active delirium, psychotic delusions, or acute ho interfering with his medical decision making. He voiced understanding of the risks/benefits/alternatives for the amputation procedure and I agree with Dr. Arreola that he maintains capacity in that regard. I did make Dr. Arreola aware that he typically refuses to sign physical paperwork due to his suspiciousness/need for control and that may require verbal/witnesses to complete but that he is clearly voicing a preference/willingness. (1) Schizoaffective disorder: Plan Remeron was started by primary service for appetite and sleep, please monitor on lowest possible dose as not agreeing to discuss mood stabilizers and has a hx of ho on at least 1 antidepressant. He is refusing further contact with our service at this time. CPT Code Overall, I spent a total of 65 minutes with this case, including review of chart, review of records, direct evaluation of the patient, counseling the patient, coordination of care with hospitalist service, and documentation. Psych History Identifying Data 78 yo male from [place], known to me from previous interactions on consult service/inpatient care on 10/2021. Consult is by Dr. Arreola for medical de cision making re: amputation. Chief Complaint "[]". History of Present Illness Patient with a hx of bipolar/delusional disorder also classified as schizoaffective disorder. Sporadic compliance with care through various agencies. As since reconciled with in that he's living in their home rather than at the [facility]. 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 He did experience some disinhibition in the form of agitation/threatening behavior in the past with hallucinations that responded to low dose Invega. Unclear how much of this behavioral change was post stroke/progression of age related cognitive change. He was set up for injections at [facility] after he refused to return to [place] for care. He cannot tell me the last time he was seen and is clear he doesn't want a psychiatrist or to continue to meet with me as doesn't want medication. Reviewed that my role was to determine if currently having symptoms interfering with his ability to make an informed choice about amputation. Prior to ending the interview, he did voice that he wants the procedure as has to treat the infection or it "won't stop" and that there can be complications such as infection. He voiced understanding of the proposed duration of treatment and further need for rehab placement, etc. He essentially said he'd agree to "all that" but that he won't cooperate if pain is not adequately controlled. previous psych also relevant hx includes primarily outpatient care through [email or web address] 2019 forward--Risperdal, Arigcept, Namenda, Depakote, topamax (migraines), Celexa (ho 2020), Zyprexa, nuplazid, effexor xr, paliperidone Allergies Allergy/AdvReac Type Severity Reaction Status Date / Time morphine AdvReac Severe "STOPS MY Verified 06/18/23 15:02 HEART" diazepam AdvReac Intermediate HALLUCINATE Verified 06/18/23 15:02 S hydromorphone [From Dilaudid] AdvReac Intermediate unresponsiv Verified 06/18/23 15:02 eness propoxyphene AdvReac Intermediate DRUG Verified 06/18/23 15:02 INTOLERANCE trazodone AdvReac Intermediate GI UPSET Verified 06/18/23 15:02 Home Medications Medication Instructions Recorded Confirmed Type acetaminophen 500 mg tablet 1,000 mg PO Q8H PRN Pain 06/05/19 06/18/23 History (Tylenol Extra Strength) nitroglycerin 0.4 mg sublingual 0.4 mg sublingual UD PRN Chest Pain 11/04/20 06/18/23 History tablet (Nitrostat) pen needle, diabetic 31 gauge x #400 ea 07/11/21 11/28/22 Rx 3/16" (BD Ultra-Fine Mini Pen Needle) cyanocobalamin (vitamin B-12) 1,000 mcg PO QAM 08/10/21 06/18/23 History 1,000 mcg tablet (Vitamin B-12) blood sugar diagnostic (OneTouch #100 ea 08/26/21 11/28/22 Rx Ultra Test strips) ifdehklo-mm-jeqme 300 mcg-K 60 1 tab PO DAILY 09/01/21 06/18/23 History mcg-lycop 600 mcg-lutein 300 mcg tablet (Centrum Silver Men) Super Beta Prostate 1 tab PO QAM 09/05/21 06/18/23 History insulin glargine 100 unit/mL (3 15 unit subcut QPM 10/12/21 06/18/23 History mL) subcutaneous pen (Lantus Solostar U-100 Insulin) insulin lispro 100 unit/mL 5 - 7 unit subcut TID 10/12/21 06/18/23 History subcutaneous pen (Humalog KwikPen (U-100) Insulin) clopidogrel 75 mg tablet 75 mg PO DAILY #90 tabs 12/09/21 06/18/23 Rx tamsulosin 0.4 mg capsule 0.4 mg PO DAILY #90 caps 12/09/21 06/18/23 Rx atorvastatin 40 mg tablet (Lipitor) 40 mg PO QAM 04/12/22 06/18/23 History pantoprazole 40 mg tablet,delayed 40 mg PO DAILY #30 tabs 09/26/22 06/18/23 Rx release Patient History Medical History Poor historian GERD (gastroesophageal reflux disease) On anticoagulant therapy Kidney stones hx History of COVID-[address] [facility] institution in [place], [facility]. Peripheral neuropathy Prostate cancer pt did not acknowledge. Sepsis hx Schizoaffective disorder pt denies JUANCARLOS (acute kidney injury) BPH (benign prostatic hyperplasia) Amputated toe of left foot Cellulitis Osteomyelitis hx Diabetic ulcer of toe hx History of diverticulosis Mild cognitive impairment alert and oriented x3 -- "forgetful about his history" Stroke HX X 2-11/2004 AND 09/2019-F/U DR NÚÑEZ Orthostatic dizziness at times Failure of outpatient treatment Venous stasis ulcers of both lower extremities hx in 2019 Venous (peripheral) insufficiency Recurrent falls Parkinsonism per medical record - pt unaware Intermittent explosive disorder Delusional disorder, somatic type not currently -- pt unaware -- pt alert and oriented x3 at this time. Alcohol abuse pt states he quit "a long time ago" Chronic diastolic CHF (congestive heart failure) Benign colonic polyp Dyslipidemia History of tobacco use Nephrolithiasis Raynauds phenomenon Stage III chronic kidney disease Tubular adenoma of colon History of CVA (cerebrovascular accident) hx in 2004 and 2019 --> follows with Dr Núñez. Migraines hx Acute on chronic renal insufficiency pt unsure Osteoarthritis Diabetes mellitus, type 2 Hypertension Hyperlipidemia Myocardial Infarction 2005--follows with Dr. Mejia Surgical History H/O left cataract extraction S/P CABG (coronary artery bypass graft) 4 [facility] 2018 S/P sinus surgery History of lumbar discectomy x2 History of carpal tunnel release of both wrists History of open reduction and internal fixation (ORIF) procedure left ankle--hardware in place History of arthroscopy of left knee History of lithotripsy x2 History of colonoscopy History of tonsillectomy and adenoidectomy Status post uvulopalatopharyngoplasty History of right cataract extraction History of heart artery stent (1998) x1 stent History of cardiac cath x4-5, last 05/19/2019 [facility] NO RECENT STENTS Family History Father , age 74 of an [place] Diabetes Prostate cancer Colorectal cancer Myocardial infarction Brother Prostate cancer Uncle Colorectal cancer Father Myocardial infarction Mother Myocardial infarction Stroke Other Dementia No family history of adverse response to anesthesia Denies family history of Ovarian cancer Breast cancer Social History Smoking Status: Former smoker Tobacco Type: Cigarettes Age Quit Using Tobacco: 71; packs per day: 3; Cigarettes Per Day: 3; Second Hand Exposure: Yes (hx); Do You Dip or Chew Tobacco: No (quit "a long time ago"); Hx Alcohol Use: No Hx Substance Use: No Preferred Language: Swedish Communication Ability: Effective Communication Ability Comment: Patient with confusion. 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); chemical exposure Feels Safe at Home: Yes Childhood Exposure to Second-Hand Smoke: Yes Diet: regular Dental Care, Regularly: Yes Physical Activity Frequency: Daily Seatbelt Use: always Sunscreen Use: No Assistive Devices: None Physical Exam Psychiatric: Orientation: alert and oriented x 3 Apperance: appropriately dressed and appropriately groomed Eye Contact: good eye contact Motor Behavior: no abnormal motor movements Speech: normal rate/rhythm/volume of speech Affect: euthymic affect Mood: + irritable mood Thought Process: + concrete thought process Thought Content: reality based without delusions Suicidal Thoughts: denies suicidal thoughts Homicidal Thoughts: denies homicidal thoughts Hallucinations: no auditory hallucinations and no visual hallucinations Cognition: attention grossly intact and language grossly intact Estimated Intelligence: consistent with education level Insight: + limited insight Judgment: + limited judgement Vital Signs (Past 24 Hours): Last Vital Signs Temp 36.8 C 07/05/23 02:59 Pulse 70 07/05/23 02:59 Resp 21 07/05/23 02:59 BP 114/67 07/05/23 02:59 Pulse Ox 96 07/05/23 02:59 O2 Del Method Room Air 07/05/23 02:59 O2 Flow Rate 7 06/26/23 17:25 Review of Systems All systems reviewed & are unremarkable except as noted in HPI & below Results & Data (PSY) Laboratory Results 07/05/23 Range/Units 05:22 WBC 5.86 (4.8-10.8) K/ul RBC 4.32 L (4.70-6.10) M/uL Hgb 13.7 L (14.0-18.0) g/dl Hct 40.5 L (42.0-52.0) % MCV 93.8 (80.0-100.0) fL MCH 31.7 (25.0-34.0) pg MCHC 33.8 (32.0-36.0) g/dL RDW Std Deviation 46.1 (36.4-46.3) fL RDW Coeff of Gissel 13.5 (11.5-14.5) % Plt Count 229 (130-400) K/uL MPV 10.7 (9.4-12.4) fL Sodium 139 (136-145) mmol/L Potassium 4.2 (3.5-5.1) mmol/L Chloride 106 (98-107) mmol/L Carbon Dioxide 25 (21-32) mmol/L Anion Gap 8 (3-11) BUN 32 H (6-23) mg/dl Creatinine 1.13 (0.6-1.4) mg/dl Est Cr Clr Drug Dosing 53.2 ml/min Est GFR ( Amer) 72.3 ml/min Est GFR (Non-Af Amer) 62.4 ml/min BUN/Creatinine Ratio 28.3 H (10-20) Glucose 124 H (70-99(Fasting)) mg/dl Calcium 8.7 (8.6-10.3) mg/dl Magnesium 2.3 (1.7-2.4) mg/dl Medications Administered Acetaminophen (Acetaminophen 500 Mg Tab) 1,000 mg PO TID [facility] Stop: 08/01/23 13:59 Last Admin: 07/05/23 10:23 Dose: 1,000 mg Documented By: Admin: 07/04/23 21:42 Dose: 1,000 mg Documented By: Admin: 07/04/23 15:13 Dose: 1,000 mg Documented By: Admin: 07/04/23 09:21 Dose: 1,000 mg Documented By: Admin: 07/03/23 22:23 Dose: 1,000 mg Documented By: Admin: 07/03/23 13:25 Dose: Not Given Documented By: Admin: 07/03/23 08:22 Dose: Not Given Documented By: Admin: 07/02/23 20:03 Dose: 1,000 mg Documented By: Admin: 07/02/23 13:30 Dose: Not Given Documented By: GPF Fentanyl Citrate (Fentanyl Citrate Pf 100 Mcg/2 Ml Vial) 25 mcg IV Q4 PRN PRN Reason: Severe Pain (Scale 7, 8, 9,10) Stop: 07/10/23 17:59 Last Admin: 07/01/23 22:23 Dose: 25 mcg Documented By: Admin: 07/01/23 17:17 Dose: 25 mcg Documented By: Admin: 07/01/23 12:31 Dose: 25 mcg Documented By: Admin: 07/01/23 08:28 Dose: 25 mcg Documented By: Admin: 06/30/23 21:17 Dose: 25 mcg Documented By: Admin: 06/30/23 13:35 Dose: 25 mcg Documented By: Admin: 06/30/23 09:21 Dose: 25 mcg Documented By: Admin: 06/30/23 05:19 Dose: 25 mcg Documented By: Admin: 06/29/23 21:05 Dose: 25 mcg Documented By: Admin: 06/28/23 19:53 Dose: 25 mcg Documented By: Admin: 06/27/23 10:23 Dose: 25 mcg Documented By: Admin: 06/26/23 23:29 Dose: 25 mcg Documented By: VLAD Heparin Sodium (Porcine) (Heparin Sod 5,000 Unit/0.5 Ml Vial) 5,000 units SQ Q8 NIKOLAI Stop: 07/23/23 13:59 Last Admin: 07/05/23 06:02 Dose: 5,000 units Documented By: Admin: 07/04/23 21:43 Dose: 5,000 units Documented By: Admin: 07/04/23 15:13 Dose: 5,000 units Documented By: Admin: 07/04/23 05:52 Dose: 5,000 units Documented By: Admin: 07/03/23 22:25 Dose: 5,000 units Documented By: Admin: 07/03/23 13:40 Dose: 5,000 units Documented By: Admin: 07/03/23 05:04 Dose: 5,000 units Documented By: Admin: 07/02/23 20:05 Dose: 5,000 units Documented By: Admin: 07/02/23 13:29 Dose: Not Given Documented By: Admin: 07/02/23 05:34 Dose: 5,000 units Documented By: Admin: 07/01/23 22:19 Dose: 5,000 units Documented By: Admin: 07/01/23 15:41 Dose: Not Given Documented By: Admin: 07/01/23 05:09 Dose: 5,000 units Documented By: Admin: 06/30/23 21:17 Dose: 5,000 units Documented By: Admin: 06/30/23 13:35 Dose: Not Given Documented By: Admin: 06/30/23 05:13 Dose: 5,000 units Documented By: Admin: 06/29/23 20:58 Dose: 5,000 units Documented By: Admin: 06/29/23 13:54 Dose: Not Given Documented By: Admin: 06/29/23 05:19 Dose: 5,000 units Documented By: Admin: 06/28/23 19:54 Dose: 5,000 units Documented By: Admin: 06/28/23 13:27 Dose: Not Given Documented By: Admin: 06/28/23 06:04 Dose: 5,000 units Documented By: Admin: 06/27/23 20:46 Dose: 5,000 units Documented By: Admin: 06/27/23 13:11 Dose: 5,000 units Documented By: Admin: 06/27/23 06:16 Dose: 5,000 units Documented By: Admin: 06/26/23 21:32 Dose: 5,000 units Documented By: Admin: 06/26/23 13:11 Dose: Not Given Documented By: Admin: 06/26/23 05:06 Dose: Not Given Documented By: Admin: 06/25/23 21:05 Dose: 5,000 units Documented By: Admin: 06/25/23 14:09 Dose: 5,000 units Documented By: Admin: 06/25/23 05:40 Dose: 5,000 units Documented By: Admin: 06/24/23 21:01 Dose: 5,000 units Documented By: Admin: 06/24/23 14:15 Dose: 5,000 units Documented By: Admin: 06/24/23 05:29 Dose: 5,000 units Documented By: Admin: 06/23/23 21:04 Dose: 5,000 units Documented By: Admin: 06/23/23 14:30 Dose: 5,000 units Documented By: KGY Hydromorphone HCl (Hydromorphone Inj 0.5 Mg/0.5 Ml Syr) 0.5 mg IV Q2H PRN PRN Reason: Pain Stop: 07/16/23 14:32 Last Admin: 07/04/23 21:40 Dose: 0.5 mg Documented By: Admin: 07/03/23 22:21 Dose: 0.5 mg Documented By: Admin: 07/03/23 12:14 Dose: 0.5 mg Documented By: Admin: 07/03/23 05:07 Dose: 0.5 mg Documented By: Admin: 07/02/23 14:57 Dose: 0.5 mg Documented By: GPF Mirtazapine (Mirtazapine Tab 15 Mg Tab) 7.5 mg PO HS NIKOLAI Stop: 08/01/23 20:59 Last Admin: 07/04/23 21:43 Dose: 7.5 mg Documented By: Admin: 07/03/23 22:24 Dose: 7.5 mg Documented By: Admin: 07/02/23 20:05 Dose: 7.5 mg Documented By: CR Multivitamins/Minerals (Cerovite Adv Formula Tab) 1 tab PO QAM NIKOLAI Stop: 08/01/23 12:29 Last Admin: 07/05/23 10:25 Dose: 1 tab Documented By: Admin: 07/04/23 09:24 Dose: 1 tab Documented By: Admin: 07/03/23 08:22 Dose: Not Given Documented By: Admin: 07/02/23 13:30 Dose: Not Given Documented By: GPF Nystatin (Nystatin Susp 500,000 U/5 Ml Udc) 5 ml PO QID NIKOLAI Stop: 07/12/23 12:59 Last Admin: 07/05/23 10:25 Dose: Not Given Documented By: Admin: 07/04/23 21:42 Dose: 5 ml Documented By: Admin: 07/04/23 18:17 Dose: Not Given Documented By: Admin: 07/04/23 12:48 Dose: 5 ml Documented By: Admin: 07/04/23 09:22 Dose: 5 ml Documented By: Admin: 07/03/23 22:22 Dose: 5 ml Documented By: Admin: 07/03/23 17:30 Dose: Not Given Documented By: Admin: 07/03/23 12:15 Dose: Not Given Documented By: Admin: 07/03/23 08:22 Dose: Not Given Documented By: Admin: 07/02/23 20:06 Dose: 5 ml Documented By: Admin: 07/02/23 16:12 Dose: Not Given Documented By: Admin: 07/02/23 13:30 Dose: Not Given Documented By: GPF Pantoprazole Sodium (Pantoprazole 40 Mg Tab) 40 mg PO BID NIKOLAI Stop: 07/21/23 12:14 Last Admin: 07/05/23 10:25 Dose: 40 mg Documented By: Admin: 07/04/23 21:43 Dose: 40 mg Documented By: Admin: 07/04/23 09:22 Dose: 40 mg Documented By: Admin: 07/03/23 22:25 Dose: 40 mg Documented By: Admin: 07/03/23 08:21 Dose: Not Given Documented By: Admin: 07/02/23 20:06 Dose: 40 mg Documented By: Admin: 07/02/23 08:00 Dose: 40 mg Documented By: Admin: 07/01/23 20:10 Dose: 40 mg Documented By: Admin: 07/01/23 08:31 Dose: 40 mg Documented By: Admin: 06/30/23 21:16 Dose: 40 mg Documented By: Admin: 06/30/23 09:16 Dose: 40 mg Documented By: Admin: 06/29/23 20:58 Dose: 40 mg Documented By: Admin: 06/29/23 08:10 Dose: 40 mg Documented By: Admin: 06/28/23 19:54 Dose: 40 mg Documented By: Admin: 06/28/23 08:09 Dose: 40 mg Documented By: Admin: 06/27/23 20:46 Dose: 40 mg Documented By: Admin: 06/27/23 08:16 Dose: 40 mg Documented By: Admin: 06/26/23 21:33 Dose: 40 mg Documented By: Admin: 06/26/23 08:28 Dose: 40 mg Documented By: Admin: 06/25/23 20:16 Dose: 40 mg Documented By: Admin: 06/25/23 09:01 Dose: 40 mg Documented By: Admin: 06/24/23 21:00 Dose: 40 mg Documented By: Admin: 06/24/23 07:44 Dose: 40 mg Documented By: Admin: 06/23/23 20:12 Dose: 40 mg Documented By: Admin: 06/23/23 08:42 Dose: 40 mg Documented By: Admin: 06/22/23 20:13 Dose: 40 mg Documented By: Admin: 06/22/23 07:51 Dose: 40 mg Documented By: Admin: 06/21/23 20:05 Dose: 40 mg Documented By: Admin: 06/21/23 12:56 Dose: 40 mg Documented By: KEG Polyethylene Glycol (Polyethylene (Miralax) 17 Gm Pack) 17 gm PO DAILY NIKOLAI Stop: 08/01/23 12:44 Last Admin: 07/05/23 10:25 Dose: Not Given Documented By: Admin: 07/04/23 09:25 Dose: 17 gm Documented By: Admin: 07/03/23 08:21 Dose: Not Given Documented By: Admin: 07/02/23 13:30 Dose: Not Given Documented By: GPF Sennosides (Senna 8.6 Mg Tab) 17.2 mg PO QAM NIKOLAI Stop: 08/02/23 08:59 Last Admin: 07/05/23 10:24 Dose: 17.2 mg Documented By: Admin: 07/04/23 09:24 Dose: 17.2 mg Documented By: Admin: 07/03/23 08:21 Dose: Not Given Documented By: OO Sucralfate (Sucralfate 1 Gm/10 Ml Udc) 1 gm PO ACHS NIKOLAI Stop: 07/18/23 17:28 Last Admin: 07/05/23 10:25 Dose: Not Given Documented By: Admin: 07/04/23 21:44 Dose: 1 gm Documented By: Admin: 07/04/23 18:17 Dose: Not Given Documented By: Admin: 07/04/23 12:47 Dose: Not Given Documented By: Admin: 07/04/23 09:20 Dose: 1 gm Documented By: Admin: 07/03/23 22:22 Dose: 1 gm Documented By: Admin: 07/03/23 17:30 Dose: Not Given Documented By: Admin: 07/03/23 12:15 Dose: Not Given Documented By: Admin: 07/03/23 08:22 Dose: Not Given Documented By: Admin: 07/02/23 20:07 Dose: 1 gm Documented By: Admin: 07/02/23 16:12 Dose: Not Given Documented By: Admin: 07/02/23 11:58 Dose: 1 gm Documented By: Admin: 07/02/23 08:00 Dose: 1 gm Documented By: Admin: 07/01/23 20:10 Dose: 1 gm Documented By: Admin: 07/01/23 17:17 Dose: Not Given Documented By: Admin: 07/01/23 12:31 Dose: Not Given Documented By: Admin: 07/01/23 08:31 Dose: Not Given Documented By: Admin: 06/30/23 21:16 Dose: 1 gm Documented By: Admin: 06/30/23 17:43 Dose: Not Given Documented By: Admin: 06/30/23 12:43 Dose: 1 gm Documented By: Admin: 06/30/23 09:16 Dose: 1 gm Documented By: Admin: 06/29/23 20:58 Dose: 1 gm Documented By: Admin: 06/29/23 17:13 Dose: Not Given Documented By: Admin: 06/29/23 12:41 Dose: 1 gm Documented By: Admin: 06/29/23 08:10 Dose: 1 gm Documented By: Admin: 06/28/23 19:54 Dose: 1 gm Documented By: Admin: 06/28/23 17:21 Dose: 1 gm Documented By: Admin: 06/28/23 12:53 Dose: 1 gm Documented By: Admin: 06/28/23 08:09 Dose: 1 gm Documented By: Admin: 06/27/23 20:46 Dose: 1 gm Documented By: Admin: 06/27/23 16:42 Dose: 1 gm Documented By: KEGina Admin: 06/27/23 11:07 Dose: 1 gm Documented By: Admin: 06/27/23 08:16 Dose: 1 gm Documented By: Admin: 06/26/23 21:33 Dose: 1 gm Documented By: Admin: 06/26/23 15:18 Dose: Not Given Documented By: Admin: 06/26/23 12:37 Dose: Not Given Documented By: Admin: 06/26/23 08:28 Dose: 1 gm Documented By: Admin: 06/25/23 20:16 Dose: 1 gm Documented By: Admin: 06/25/23 17:34 Dose: 1 gm Documented By: Admin: 06/25/23 12:04 Dose: 1 gm Documented By: Admin: 06/25/23 09:01 Dose: 1 gm Documented By: Admin: 06/24/23 21:00 Dose: 1 gm Documented By: Admin: 06/24/23 16:11 Dose: 1 gm Documented By: Admin: 06/24/23 13:29 Dose: 1 gm Documented By: Admin: 06/24/23 07:44 Dose: 1 gm Documented By: Admin: 06/23/23 20:12 Dose: 1 gm Documented By: Admin: 06/23/23 16:26 Dose: 1 gm Documented By: Admin: 06/23/23 11:35 Dose: 1 gm Documented By: Admin: 06/23/23 08:42 Dose: 1 gm Documented By: Admin: 06/22/23 20:14 Dose: 1 gm Documented By: Admin: 06/22/23 16:18 Dose: 1 gm Documented By: Admin: 06/22/23 10:16 Dose: Not Given Documented By: Admin: 06/22/23 07:51 Dose: 1 gm Documented By: Admin: 06/21/23 20:05 Dose: 1 gm Documented By: Admin: 06/21/23 15:41 Dose: 1 gm Documented By: Admin: 06/21/23 11:08 Dose: 1 gm Documented By: Admin: 06/21/23 06:31 Dose: 1 gm Documented By: Admin: 06/20/23 19:47 Dose: 1 gm Documented By: Admin: 06/20/23 15:44 Dose: 1 gm Documented By: Admin: 06/20/23 11:42 Dose: 1 gm Documented By: Admin: 06/20/23 08:14 Dose: 1 gm Documented By: Admin: 06/19/23 21:45 Dose: Not Given Documented By: Admin: 06/19/23 15:50 Dose: Not Given Documented By: Admin: 06/19/23 12:26 Dose: 1 gm Documented By: Admin: 06/19/23 07:36 Dose: 1 gm Documented By: Admin: 06/18/23 21:04 Dose: 1 gm Documented By: Admin: 06/18/23 18:25 Dose: 1 gm Documented By: KAMAR Coding Level of Care Code 28817 U Intl Hosp Care Lvl 2 Diagnoses Schizoaffective disorder F25.9
--- NOTE | 2023-07-05 12:42 | Palliative Care Progress Note ---
Date of Service July 05, 2023 Assessment & Plan (1) Advanced care planning/counseling discussion: Plan: Pt is agreeable to surgery/amputation. Some concern for delirium given changes in decision making, although he has been consistent over the past 2 days that is willing to have surgery to treat his infection. Psychiatry saw pt today and feels that he does have capacity to make decisions at this time. (2) Palliative care by specialist: (3) Left leg pain: Plan: Pain is well controlled with minimal doses of IV Dilaudid. Plan to continue. (4) Generalized weakness: Plan: Per discussion with primary team noted by prior to this admission. Secondary to multiple disease processes and worsened with acute infection. (5) Insomnia: Plan: Pt notes insomnia and previous trial of multiple medications for insomnia including Ativan. In discussion with hospitalist plan for trial of mirtazapine. (6) Gangrene: Plan: Currently in IV antibiotics, surgery per vascular surgery vs podiatry. Plan We were asked to meet with pt to discuss goals of care in relation to his current infection. Psychiatry saw pt and feels that he has capacity to make medical decisions. Pt has agreed to undergo necessary surgery to help treat infection. We remain concerned that his pattern of being inconsistently inconsistent may lead to post op complications etc if he continues refusing meds arbitrarily. Pain is currently well controlled on minimal doses of IV Dilaudid, plan to continue current pain regimen. Palliative care with sign off at this time. Thank you for allowing us to participate in the care of this patient. Please reach out if any further questions arise. pt was seen together with Dr Ortiz, family med resident. The above note is a joint effort and all aspects of the patient's assessment and plan have been repeated and verified by me . TS 45min MDM High complexity Thank you for allowing us to participate in the ongoing care of this patient. Please don't hesitate to call or page with any additional concerns. Dr. Rimma Mcdaniels DNP Director, Palliative Care Admission and Anticipated Discharge Date Admission Date: June 18, 2023 Subjective Pt seen at bedside this morning. Doing well. Pain is well controlled. Continues to voice that he is willing to have surgery. Appitiate is ok and he states that he is supplementing with boost. Review of Systems Review of Systems: As per above Physical Exam Physical Exam: Constitutional: well-appearing, no acute distress HEENT: NCAT, no conjunctival injection CV: regular rhythm, no murmur appreciated, extremities well-perfused Resp: CTABL, no wheezes/rales/rhonchi appreciated, no increased work of breathing GI: soft, nondistended, nontender MSK: no gross deformities appreciated Skin: warm, dry, no rash appreciated, left LE wrapped in bandages; dressing clean and dry Neuro: alert, oriented, no focal neurologic deficit appreciated Results & Data Vital Signs (Past 12 Hours) Vital Signs Temp Pulse Resp BP Pulse Ox O2 Del Method 07/05/23 02:59 36.8 C 70 21 114/67 96 Room Air Laboratory Results data reviewed Diagnostic Findings data reviewed (5) Insomnia Insomnia type: unspecified Qualified Code(s): G47.00 - Insomnia, unspecified
[2023-07-05] MEDS: HYDROmorphone INJ 0.5 MG/0.5 ML SYR IV PRN (15:29)
--- NOTE | 2023-07-05 17:16 | Hospitalist Progress Note ---
Date of Service July 05, 2023 Assessment & Plan (1) Sepsis: Plan: 2nd to left foot gangrene/osteomyelitis of 1st and 5th toes, s/p amputation of both toes by Dr Price. Intra-op culture from the 1st/5th toe amputations grew group C strep. Remains on IV unasyn. Ultimately needed TMA of the left foot - 06/26/23 - also by Dr Price. Unfortunately angiography completed by Dr Sher on 06/22/23 revealed severe PAD of the left leg with no option for bypass. Dr Price re-evaluated the left foot on 07/01/23 and unfortunately the TMA is already necrosing. Dr Sher met with the patient 07/02 to discuss BKA and possibly even AKA and patient initially declined any further surgery. After several days of thinking about options patient now consistently telling nursing, providers, etc he is ready & willing to undergo left foot amputation. There has been some question about his capacity for medical decision making but he appears to understand the risks of not doing surgery (recurrent sepsis/gangrene/) and understands the risks/benefits of doing amputation. Formal psychiatry evaluation by Dr Vaz appreciated. She, too, agrees Mr Blanchard retains medical decision making capacity at this time. I sent a Otto message to Dr Sher regarding pt's final decision re: amputation. Await Dr Sher's assistance with surgery; date/timing of surgery uncertain. (2) Osteomyelitis: Plan: Status post first and fifth toe amputations on the left foot 06/[address] Price, podiatry Ultimately needed left TMA 06/26 due to nonhealing wounds (1st/5th MTPs) due to significant vasculopathy - surgery also by Dr Price Cont IV unasyn until his amputation has been completed see #1 above (3) Duodenal ulcer: Plan: 08/2022 - EGD with esophagitis and duodenal ulcers however, following the EGD, he never took acid reduction with PPI he has had abdominal pains for months and weight loss now on PPI twice daily and carafate QID pain improved (4) Controlled type 2 diabetes mellitus with neurologic complication, with long- term current use of insulin: Plan: HbA1c 7% Per staff he had been declining insulin earlier in the admission insulin stopped since he was declining such (5) Unintentional weight loss of 10% body weight within 6 months: Plan: patient told prior attending physician he did NOT want further work-up for his abdominal pains or weight loss (6) Severe protein-calorie malnutrition: Plan: 15kg weight loss since late 2021 see discussion above cont remeron - consider increase to 15mg but leave at 7.5mg as per Dr Vaz (7) Insomnia: Plan: in light of weight loss, poor appetite, insomnia, prior mental health issues (as listed in chart) started remeron 7.5mg HS - 07/02 - tolerating thus far without induction of ho, etc (8) CAD in [place] artery: Plan: no ischemic symptoms at this time statin, plavix, etc remain on hold in preparation for amputation of L foot (9) Peripheral arterial occlusive disease: Plan: severe as seen on arteriogram on 06/22/[address] Sher unfortunately he is not a candidate for bypass as per Dr Sher making BKA or AKA the best option for healing for his left leg see #1 above re: decision whether to pursue with additional Rx (10) DVT prophylaxis: Plan: heparin 5000 TID (11) Candidiasis of mouth and esophagus: Plan: cont nystatin solution 5ml qid swish/spit Plan CODE STATUS: DNR/DNI Appreciate Dr Sher, Dr Price, and Dr Mcdaniels's assistance Of note - patient does have a documented psychiatric history However, he understands cause & effect of his potential decisions - he voices understanding that if he does not pursue additional surgery on the L foot there is a high likelihood of ongoing infection/gangrene, sepsis, and even psych consult completed - Mr Blanchard retains medical decision ability cont IV pain meds cont IV unasyn d/c tele --> move to med/surg Admission and Anticipated Discharge Date Admission Date: June 18, 2023 Subjective no acute issues overnight tele stable - NSR, PACs, PVCs spending all day in bed appetite remains poor, but drinking boost about twice daily he continues to voice consistently he is ready to have the amputation of left foot denies any needs Review of Systems Review of Systems: cv - no chest pain pulm - no dyspnea or cough GI - no pain, nausea or emesis Physical Exam Physical Exam: gen - NAD, thin, awake/alert - looks same as prior visits mouth - MM dry, geographic tongue neck - no JVD heart - irregular (extra beats), s1 s2, no murmur lungs - CTA b/l abd - soft NT ND BS+ vascular - pulses b/l feet unchanged musculo - left foot dressings - I did not remove these today - they remain intact psych - insight present into current health status, awake, alert, oriented to person/place Results & Data Results & Data Vital Signs (Past 12 Hours) Vital Signs Temp Pulse Resp BP Pulse Ox O2 Del Method 07/05/23 15:13 37.0 C 64 19 101/58 L 95 Room Air Laboratory Results Laboratory Results 07/05/23 05:22 WBC 5.86 RBC 4.32 L Hgb 13.7 L Hct 40.5 L MCV 93.8 MCH 31.7 MCHC 33.8 RDW Std Deviation 46.1 RDW Coeff of Gissel 13.5 Plt Count 229 MPV 10.7 Sodium 139 Potassium 4.2 Chloride 106 Carbon Dioxide 25 Anion Gap 8 BUN 32 H Creatinine 1.13 Est Cr Clr Drug Dosing 53.2 Est GFR ( Amer) 72.3 Est GFR (Non-Af Amer) 62.4 BUN/Creatinine Ratio 28.3 H Glucose 124 H Calcium 8.7 Magnesium 2.3 PG Care Time/CCT Total # of Minutes Spent Total Time Spent with Patient: Total time spent is greater than 50% in coordination of care (as documented) at patient's floor/unit and/or counseling patient: Coding Level of Care Code 94944 SUB INP/OBS CARE 2MIN Diagnoses Sepsis A41.9 Sepsis acute organ dysfunction status: without acute organ dysfunction Sepsis type: sepsis due to unspecified organism Osteomyelitis M86.9 Laterality: left Osteomyelitis location: foot Osteomyelitis type: unspecified type Duodenal ulcer K26.9 Controlled type 2 diabetes mellitus with neurologic complication, with long-term current use of insulin E11.49; Z79.4 Unintentional weight loss of 10% body weight within 6 months R63.4 Severe protein-calorie malnutrition E43 Insomnia G47.00 Insomnia type: unspecified CAD in [place] artery I25.10 Peripheral arterial occlusive disease I77.9 DVT prophylaxis Z29.9 Candidiasis of mouth and esophagus B37.81; B37.0 (1) Sepsis Sepsis acute organ dysfunction status: without acute organ dysfunction Sepsis type: sepsis due to unspecified organism Qualified Code(s): A41.9 - Sepsis, unspecified organism (2) Osteomyelitis Laterality: left Osteomyelitis location: foot Osteomyelitis type: unspecified type Qualified Code(s): M86.9 - Osteomyelitis, unspecified (7) Insomnia Insomnia type: unspecified Qualified Code(s): G47.00 - Insomnia, unspecified
[2023-07-05] MEDS: MIRTAZAPINE TAB 15 MG TAB PO SCH (21:58)
[2023-07-06] MEDS: HYDROmorphone INJ 0.5 MG/0.5 ML SYR IV PRN (05:56)
[2023-07-06] MEDS: HEPARIN SOD 5,000 UNIT/0.5 ML VIAL SQ SCH ×3 (05:57→21:21)
[2023-07-06] MEDS: CEROVITE ADV FORMULA TAB PO SCH (07:26)
[2023-07-06] MEDS: PANTOprazole 40 MG TAB PO SCH ×2 (07:26→21:21)
[2023-07-06] MEDS: SUCRALFATE 1 GM/10 ML UDC PO SCH ×4 (07:27→21:20)
[2023-07-06] MEDS: ACETAMINOPHEN 500 MG TAB PO SCH ×3 (07:27→21:25)
[2023-07-06] MEDS: NYSTATIN SUSP 500,000 U/5 ML UDC PO SCH ×4 (07:27→21:22)
[2023-07-06] MEDS: SENNA 8.6 MG TAB PO SCH (07:28)
[2023-07-06] MEDS: POLYETHYLENE (MIRALAX) 17 GM PACK PO SCH (07:28)
--- NOTE | 2023-07-06 10:07 | Communication Note ---
Date of Service: July 06, 2023 Pt seen along with Dr Sher to discuss LLE BKA, possible AKA. Procedure discussed with pt, he is in agreement to proceed. Scheduled for SUNDAY 07/09.
[2023-07-06] MEDS ORDERED: AMPICILLIN SOD/SULBACTAM SOD 3 GM VIAL IV SCH (12:00)
--- NOTE | 2023-07-06 12:01 | Infectious Disease Progress Nt ---
Date of Service July 06, 2023 Assessment & Plan (1) Osteomyelitis: (2) Gangrene: (3) Cellulitis of left foot: (4) Peripheral arterial occlusive disease: Plan 78 yo M with history of T2DM, HTN, HLD, AL, CVA, CKD, CHF, L toe amputation who presented on 06/18 with L foot pain and blackened toes, found to have gangrene and osteomyelitis of first and fifth toes, s/p first and fifth toe amputations (06/19/23), complicated by ongoing necrosis at toe amputation sites due to PAD s/p TMA (06/26/23), again with ongoing necrosis now awaiting BKA vs AKA on 07/09/23. On presentation, CT left foot without contrast showed soft tissue gas within the left fifth toe and intraosseous gas within the distal phalanx of the left fifth toe highly suggestive of osteomyelitis. Soft tissue gas within the left first toe, equivocal erosion of the distal tuft of the distal phalanx of the left fir st toe, probably chronic however additional focus of acute osteo cannot be excluded. US duplex LLE arteries showed complete occlusion of common femoral artery and superficial femoral artery, majority occlusion of popliteal artery, occluded calf arteries. Podiatry took patient to the OR on 06/19 and performed amputation of left great toe and left fifth toe. Surgical cure of osteomyelitis was reportedly obtained. Patient underwent LLE angiogram on 06/22, which showed reconstitution of the anterior tibial artery approximately 15 cm above the ankle joint and the posterior tibial artery which reconstituted at the ankle joint. He was determined not to be candidate for bypass procedures due to overall medical condition and is not having white earth conduit for bypass. Vascular surgery felt that if his foot should worsen, then he will most likely require a left lower extremity amputation. Pt was noted to have necrosis at toe amputation sites, so was taken for TMA on 06/26. Unfortunately the TMA site has ongoing necrosis, so pt will go for BKA vs AKA on 07/09. There were some delays as pt was refusing further amputation. Micro: 1/2 L 5th toe cx: Group C Strep 06/19 L great toe cx: Group C Strep (S amp, ceftriaxone, penicillin, vanc) 06/18 BCx x2: NG Abx: Amp-sulbactam 06/27 - present Ceftriaxone 06/26 - 06/27 Daptomycin 06/18 - 06/25 Pip-tazo 06/18 - 06/25 Clindamycin 06/18 - 06/20 Problems: #L first and fifth toe osteomyelitis and gangrene s/p first and fifth toe amputations (06/19/23) c/b necrosis s/p TMA (06/26/23) #T2DM #PAD Recommendations: -Amp-sulbactam fell off his medication list. Restarted while he has necrosis at TMA site, and set end date for 07/09. Can complete antibiotics on 07/09 after his amputation Will sign off. Please page [facility] with further questions. Admission and Anticipated Discharge Date Admission Date: June 18, 2023 Subjective This patient recommendation is based on a telemedicine consult request which was completed asynchronously through chart review and information provided by the primary physician. The patient was not seen or examined today. The evaluation is consultative in nature and all patient care and treatment decisions can either be accepted or rejected by the patient's primary hospital-based treating physician using their own independent medical judgment for their patient. Time Spent Reviewing Chart: 11 - 20 minutes Necrosis at TMA site. Pt agreed to proceed with higher amputation, scheduled for 07/09 Afebrile without leukocytosis Review of System Patient not seen Physical Exam Physical Exam: Patient not seen Results & Data Vital Signs (Past 12 Hours) Vital Signs Temp Pulse Resp BP Pulse Ox O2 Del Method 07/06/23 08:00 Room Air 07/06/23 07:24 36.8 C 72 18 100/62 97 Room Air Medications Administered Current Inpatient Medications Acetaminophen (Acetaminophen 500 Mg Tab) 1,000 mg PO TID NIKOLAI Stop: 08/01/23 13:59 Last Admin: 07/06/23 07:27 Dose: 1,000 mg Al Hydrox/Mg Hydrox/Simethicone (Aluminum/Magnesium Susp 30 Ml Udc) 15 ml PO Q4H PRN PRN Reason: Dyspepsia Stop: 07/18/23 17:28 Bisacodyl (Bisacodyl 10 Mg Supp) 10 mg TN Q12H PRN PRN Reason: Constipation Stop: 08/02/23 12:04 Dextrose (Dextrose 50% 50 Ml Syringe) 25 - 50 ml IV UD PRN; Protocol PRN Reason: Hypoglycemia Protocol Stop: 07/18/23 17:28 Fentanyl Citrate (Fentanyl Citrate Pf 100 Mcg/2 Ml Vial) 25 mcg IV Q4 PRN PRN Reason: Severe Pain (Scale 7, 8, 9,10) Stop: 07/10/23 17:59 Last Admin: 07/01/23 22:23 Dose: 25 mcg Glucagon (Glucagon For Inj 1 Mg Vial) 1 mg SQ UD PRN; Protocol PRN Reason: Hypoglycemia Protocol Stop: 07/18/23 17:28 Glucose (Glucose 10 Tab/Tube) 4 - 8 tab PO UD PRN; Protocol PRN Reason: Hypoglycemia Treatment Stop: 07/18/23 17:28 Glucose (Glucose 40% Gel 15 Gm Tube) 15 - 30 gm PO UD PRN; Protocol PRN Reason: Hypoglycemia Protocol Stop: 07/18/23 17:28 Heparin Sodium (Porcine) (Heparin Sod 5,000 Unit/0.5 Ml Vial) 5,000 units SQ Q8 [facility] Stop: 07/23/23 13:59 Last Admin: 07/06/23 05:57 Dose: 5,000 units Hydromorphone HCl (Hydromorphone Inj 0.5 Mg/0.5 Ml Syr) 0.5 mg IV Q2H PRN PRN Reason: Pain Stop: 07/16/23 14:32 Last Admin: 07/06/23 05:56 Dose: 0.5 mg Mirtazapine (Mirtazapine Tab 15 Mg Tab) 7.5 mg PO HS [facility] Stop: 08/01/23 20:59 Last Admin: 07/05/23 21:58 Dose: 7.5 mg Miscellaneous (Carbohydrates For Hypoglycemia ) 15 - 30 gm PO UD PRN PRN Reason: Hypoglycemia Protocol Stop: 07/18/23 17:28 Multivitamins/Minerals (Cerovite Adv Formula Tab) 1 tab PO QAM [facility] Stop: 08/01/23 12:29 Last Admin: 07/06/23 07:26 Dose: 1 tab Nystatin (Nystatin Susp 500,000 U/5 Ml Udc) 5 ml PO QID [facility] Stop: 07/12/23 12:59 Last Admin: 07/06/23 11:55 Dose: 5 ml Ondansetron HCl (Ondansetron Inj 2 Mg/Ml 2 Ml Vial) 4 mg IV Q6H PRN PRN Reason: Nausea Stop: 07/18/23 17:28 Pantoprazole Sodium (Pantoprazole 40 Mg Tab) 40 mg PO BID NIKOLAI Stop: 07/21/23 12:14 Last Admin: 07/06/23 07:26 Dose: 40 mg Polyethylene Glycol (Polyethylene (Miralax) 17 Gm Pack) 17 gm PO DAILY NIKOLAI Stop: 08/01/23 12:44 Last Admin: 07/06/23 07:28 Dose: Not Given Sennosides (Senna 8.6 Mg Tab) 17.2 mg PO QAM NIKOLAI Stop: 08/02/23 08:59 Last Admin: 07/06/23 07:28 Dose: Not Given Sucralfate (Sucralfate 1 Gm/10 Ml Udc) 1 gm PO ACHS NIKOLAI Stop: 07/18/23 17:28 Last Admin: 07/06/23 11:54 Dose: 1 gm (1) Osteomyelitis Laterality: left Osteomyelitis location: foot Osteomyelitis type: unspecified type Qualified Code(s): M86.9 - Osteomyelitis, unspecified
[2023-07-06] MEDS: UNASYN 3000MG / NS q6h IV SCH ×2 (13:45→17:26)
--- NOTE | 2023-07-06 18:20 | Hospitalist Progress Note ---
Date of Service July 06, 2023 Assessment & Plan (1) Sepsis: Plan: 2nd to left foot gangrene/osteomyelitis of 1st and 5th toes, s/p amputation of both toes by Dr Price. Intra-op culture from the 1st/5th toe amputations grew group C strep. Remains on IV unasyn. Ultimately needed TMA of the left foot - 06/26/23 - also by Dr Price. Unfortunately angiography completed by Dr Sher on 06/22/23 revealed severe PAD of the left leg with no option for bypass. Dr Price re-evaluated the left foot on 07/01/23 and unfortunately the TMA is already necrosing. Dr Sher met with the patient 07/02 to discuss BKA and possibly even AKA and patient initially declined any further surgery. After several days of thinking about options patient now consistently telling nursing, providers, etc he is ready & willing to undergo left foot amputation. There has been some question about his capacity for medical decision making but he appears to understand the risks of not doing surgery (recurrent sepsis/gangrene/) and understands the risks/benefits of doing amputation. Formal psychiatry evaluation by Dr Vaz appreciated. She, too, agrees Mr Blanchard retains medical decision making capacity at this time. Dr Sher has scheduled left BKA - possibly AKA - for 07/09/23. (2) Osteomyelitis: Plan: Status post first and fifth toe amputations on the left foot 06/[address] Price, podiatry Ultimately needed left TMA 06/26 due to nonhealing wounds (1st/5th MTPs) due to significant vasculopathy - surgery also by Dr Price Cont IV unasyn until his amputation has been completed see #1 above (3) Duodenal ulcer: Plan: 08/2022 - EGD with esophagitis and duodenal ulcers however, following the EGD, he never took acid reduction with PPI he has had abdominal pains for months and weight loss now on PPI twice daily and carafate QID pain improved/resolved (4) Controlled type 2 diabetes mellitus with neurologic complication, with long- term current use of insulin: Plan: HbA1c 7% Per staff he had been declining insulin earlier in the admission insulin stopped since he was declining such (5) Unintentional weight loss of 10% body weight within 6 months: Plan: patient told prior attending physician he did NOT want further work-up for his abdominal pains or weight loss (6) Severe protein-calorie malnutrition: Plan: 15kg weight loss since late 2021 see discussion above cont remeron - consider increase to 15mg but leave at 7.5mg as per Dr Vaz prior h/o B1 def -- will treat empirically 200mg BID given his malnutrition (7) Insomnia: Plan: in light of weight loss, poor appetite, insomnia, prior mental health issues (as listed in chart) started remeron 7.5mg HS - 07/02 - tolerating thus far without induction of ho, etc (8) CAD in [place] artery: Plan: no ischemic symptoms at this time statin, plavix, etc remain on hold in preparation for amputation of L foot (9) Peripheral arterial occlusive disease: Plan: severe as seen on arteriogram on 06/22/[address] Sher unfortunately he is not a candidate for bypass as per Dr Sher making BKA or AKA the best option for healing for his left leg see #1 above re: decision whether to pursue with additional Rx (10) DVT prophylaxis: Plan: heparin 5000 TID (11) Candidiasis of mouth and esophagus: Plan: cont nystatin solution 5ml qid swish/spit Plan CODE STATUS: DNR/DNI Appreciate Dr Sher, Dr Price, and Dr Mcdaniels's assistance Of note - patient does have a documented psychiatric history However, he understands cause & effect of his potential decisions - he voices understanding that if he does not pursue additional surgery on the L foot there is a high likelihood of ongoing infection/gangrene, sepsis, and even psych consult completed - Mr Blanchard retains medical decision ability cont IV pain meds cont IV unasyn updated pt's friend "Jacques" at # listed in chart Admission and Anticipated Discharge Date Admission Date: June 18, [address] Sher has scheduled Mr Blanchard for BKA - possible AKA - on Sunday 07/09 no new complaints not eating well but drinking multiple Boosts each day pain in L foot unchanged Review of Systems Review of Systems: cv - no cp, no orthopnea pulm - no dyspnea GI - had BM this am Physical Exam Physical Exam: gen - NAD, thin, awake/alert, affect modestly better today mouth - MM more moist today, geographic tongue neck - no JVD heart - irregular (extra beats), s1 s2, no murmur lungs - CTA b/l abd - soft NT ND BS+ vascular - pulses b/l feet unchanged musculo - left foot dressings intact psych - oriented to person/place/time; no psychosis Results & Data Results & Data Vital Signs (Past 12 Hours) Vital Signs Temp Pulse Resp BP Pulse Ox O2 Del Method 07/06/23 15:32 36.4 C L 76 16 114/77 98 Room Air 07/06/23 08:00 Room Air 07/06/23 07:24 36.8 C 72 18 100/62 97 Room Air PG Care Time/CCT Total # of Minutes Spent Total Time Spent with Patient: Total time spent is greater than 50% in coordination of care (as documented) at patient's floor/unit and/or counseling patient: Coding Level of Care Code 58940 SUB INP/OBS CARE 07/12MIN Diagnoses Sepsis A41.9 Sepsis acute organ dysfunction status: without acute organ dysfunction Sepsis type: sepsis due to unspecified organism Osteomyelitis M86.9 Laterality: left Osteomyelitis location: foot Osteomyelitis type: unspecified type Duodenal ulcer K26.9 Controlled type 2 diabetes mellitus with neurologic complication, with long-term current use of insulin E11.49; Z79.4 Unintentional weight loss of 10% body weight within 6 months R63.4 Severe protein-calorie malnutrition E43 Insomnia G47.00 Insomnia type: unspecified CAD in [place] artery I25.10 Peripheral arterial occlusive disease I77.9 DVT prophylaxis Z29.9 Candidiasis of mouth and esophagus B37.81; B37.0 (1) Sepsis Sepsis acute organ dysfunction status: without acute organ dysfunction Sepsis type: sepsis due to unspecified organism Qualified Code(s): A41.9 - Sepsis, unspecified organism (2) Osteomyelitis Laterality: left Osteomyelitis location: foot Osteomyelitis type: unspecified type Qualified Code(s): M86.9 - Osteomyelitis, unspecified (7) Insomnia Insomnia type: unspecified Qualified Code(s): G47.00 - Insomnia, unspecified
[2023-07-06] MEDS: MIRTAZAPINE TAB 15 MG TAB PO SCH (21:21)
[2023-07-06] MEDS: THIAMINE HCL 200 MG in SODIUM CHLORIDE 0.9% 50 ML IV SCH (21:21)
[2023-07-07] MEDS: UNASYN 3000MG / NS q6h IV SCH ×4 (00:22→17:47)
[2023-07-07] MEDS: HEPARIN SOD 5,000 UNIT/0.5 ML VIAL SQ SCH ×4 (05:53→21:33)
[2023-07-07] MEDS: SUCRALFATE 1 GM/10 ML UDC PO SCH ×5 (07:29→21:33)
[2023-07-07] MEDS: PANTOprazole 40 MG TAB PO SCH ×2 (07:30→21:26)
[2023-07-07] MEDS: CEROVITE ADV FORMULA TAB PO SCH (07:30)
[2023-07-07] MEDS: THIAMINE HCL 200 MG in SODIUM CHLORIDE 0.9% 50 ML IV SCH ×2 (07:31→21:26)
[2023-07-07] MEDS: SENNA 8.6 MG TAB PO SCH (07:31)
[2023-07-07] MEDS: NYSTATIN SUSP 500,000 U/5 ML UDC PO SCH ×5 (07:31→21:33)
[2023-07-07] MEDS: ACETAMINOPHEN 500 MG TAB PO SCH ×3 (07:34→21:29)
[2023-07-07] MEDS: POLYETHYLENE (MIRALAX) 17 GM PACK PO SCH (07:36)
--- NOTE | 2023-07-07 18:24 | Hospitalist Progress Note ---
Date of Service July 07, 2023 Assessment & Plan (1) Sepsis: Plan: 2nd to left foot gangrene/osteomyelitis of 1st and 5th toes, s/p amputation of both toes by Dr Price. Intra-op culture from the 1st/5th toe amputations grew group C strep. Remains on IV unasyn. Ultimately needed TMA of the left foot - 06/26/23 - also by Dr Price. Unfortunately angiography completed by Dr Sher on 06/22/23 revealed severe PAD of the left leg with no option for bypass. Dr Price re-evaluated the left foot on 07/01/23 and unfortunately the TMA is already necrosing. Dr Sher met with the patient 07/02 to discuss BKA and possibly even AKA and patient initially declined any further surgery. After several days of thinking about options patient now consistently telling nursing, providers, etc he is ready & willing to undergo left foot amputation. There has been some question about his capacity for medical decision making but he appears to understand the risks of not doing surgery (recurrent sepsis/gangrene/) and understands the risks/benefits of doing amputation. Formal psychiatry evaluation by Dr Vaz appreciated. She, too, agrees Mr Blanchard retains medical decision making capacity at this time. Dr Sher has scheduled left BKA - possibly AKA - for 07/09/23. Plan to check labs tomorrow am in prep for his surgery - CBC, BMP, INR. (2) Osteomyelitis: Plan: Status post first and fifth toe amputations on the left foot 06/[address] Price, podiatry Ultimately needed left TMA 06/26 due to nonhealing wounds (1st/5th MTPs) due to significant vasculopathy - surgery also by Dr Price Cont IV unasyn until his amputation has been completed - scheduled for 07/09/[address] Sher see #1 above (3) Duodenal ulcer: Plan: 08/2022 - EGD with esophagitis and duodenal ulcers however, following the EGD, he never took acid reduction with PPI he has had abdominal pains for months and weight loss now on PPI twice daily and carafate QID no c/o abd pain in several days (4) Controlled type 2 diabetes mellitus with neurologic complication, with long- term current use of insulin: Plan: HbA1c 7% Per staff he had been declining insulin earlier in the admission insulin stopped since he was declining such (5) Unintentional weight loss of 10% body weight within 6 months: Plan: patient told prior attending physician he did NOT want further work-up for his abdominal pains or weight loss (6) Severe protein-calorie malnutrition: Plan: 15kg weight loss since late 2021 see discussion above cont remeron - consider increase to 15mg but leave at 7.5mg as per Dr Vaz prior h/o B1 def -- will treat empirically 200mg BID given his malnutrition weight stable over the last week at about 68 kg (7) Insomnia: Plan: in light of weight loss, poor appetite, insomnia, prior mental health issues (as listed in chart) started remeron 7.5mg HS - 07/02 - tolerating thus far without induction of ho, etc (8) CAD in [place] artery: Plan: no ischemic symptoms at this time plavix remains on hold in preparation for amputation of L foot can resume statin - no need to hold (9) Peripheral arterial occlusive disease: Plan: severe as seen on arteriogram on 06/22/[address] Sher unfortunately he is not a candidate for bypass as per Dr Sher making BKA or AKA the best option for healing for his left leg scheduled for BKA - possibly AKA - on 07/09/23 (10) DVT prophylaxis: Plan: heparin 5000 TID hold after MN on Sunday pm in prep for surgery (11) Candidiasis of mouth and esophagus: Plan: cont nystatin solution 5ml qid swish/spit Plan CODE STATUS: DNR/DNI Appreciate Dr Sher, Dr Price, and Dr Mcdaniels's assistance Of note - patient does have a documented psychiatric history However, he understands cause & effect of his potential decisions - he voices understanding that if he does not pursue additional surgery on the L foot there is a high likelihood of ongoing infection/gangrene, sepsis, and even psych consult completed - Mr Blanchard retains medical decision ability cont IV pain meds cont IV unasyn updated pt's friend "Jacques" at # listed in chart on 07/06/23 Admission and Anticipated Discharge Date Admission Date: June 18, 2023 Subjective sleeping upon arrival did wake up denied any complaints except mild L foot pain quickly went back to sleep appetite still poor; only really drinking boost +BM yesterday no other acute issues Review of Systems Review of Systems: cv - no chest pain pulm - no dyspnea Physical Exam Physical Exam: gen - NAD, thin, sleepy today neck - no JVD heart - irregular (extra beats), s1 s2, no murmur lungs - CTA b/l abd - soft NT ND BS+ vascular - pulses b/l feet unchanged - 1+ b/l musculo - left foot dressings intact; odor present from the L foot; no erythema or warmth rising above the ankle into the souza Results & Data Results & Data Vital Signs (Past 12 Hours) Vital Signs Temp Pulse Pulse Resp BP BP Pulse Ox 07/07/23 15:12 36.5 C 62 16 117/75 98 07/07/23 09:05 07/07/23 07:56 64 18 97 07/07/23 07:00 36.5 C 35 L 16 105/60 99 O2 Del Method 07/07/23 15:12 Room Air 07/07/23 09:05 Room Air 07/07/23 07:56 Room Air 07/07/23 07:00 Room Air PG Care Time/CCT Total # of Minutes Spent Total Time Spent with Patient: Total time spent is greater than 50% in coordination of care (as documented) at patient's floor/unit and/or counseling patient: Coding Level of Care Code 83918 SUB INP/OBS CARE 07/12MIN Diagnoses Sepsis A41.9 Sepsis acute organ dysfunction status: without acute organ dysfunction Sepsis type: sepsis due to unspecified organism Osteomyelitis M86.9 Laterality: left Osteomyelitis location: foot Osteomyelitis type: unspecified type Duodenal ulcer K26.9 Controlled type 2 diabetes mellitus with neurologic complication, with long-term current use of insulin E11.49; Z79.4 Unintentional weight loss of 10% body weight within 6 months R63.4 Severe protein-calorie malnutrition E43 Insomnia G47.00 Insomnia type: unspecified CAD in [place] artery I25.10 Peripheral arterial occlusive disease I77.9 DVT prophylaxis Z29.9 Candidiasis of mouth and esophagus B37.81; B37.0 (1) Sepsis Sepsis acute organ dysfunction status: without acute organ dysfunction Sepsis type: sepsis due to unspecified organism Qualified Code(s): A41.9 - Sepsis, unspecified organism (2) Osteomyelitis Laterality: left Osteomyelitis location: foot Osteomyelitis type: unspecified type Qualified Code(s): M86.9 - Osteomyelitis, unspecified (7) Insomnia Insomnia type: unspecified Qualified Code(s): G47.00 - Insomnia, unspecified
[2023-07-07] MEDS: MIRTAZAPINE TAB 15 MG TAB PO SCH (21:26)
[2023-07-08] MEDS: UNASYN 3000MG / NS q6h IV SCH ×4 (01:19→17:57)
[2023-07-08] MEDS: HYDROmorphone INJ 0.5 MG/0.5 ML SYR IV PRN ×4 (01:23→20:46)
[2023-07-08] MEDS: HEPARIN SOD 5,000 UNIT/0.5 ML VIAL SQ SCH ×3 (06:27→21:01)
[2023-07-08] MEDS: SUCRALFATE 1 GM/10 ML UDC PO SCH ×4 (07:44→20:54)
[2023-07-08] MEDS: POLYETHYLENE (MIRALAX) 17 GM PACK PO SCH (07:45)
[2023-07-08] MEDS: PANTOprazole 40 MG TAB PO SCH ×2 (07:45→20:53)
[2023-07-08] MEDS: ATORVASTATIN 40 MG TAB PO SCH (07:45)
[2023-07-08] MEDS: NYSTATIN SUSP 500,000 U/5 ML UDC PO SCH ×4 (07:45→20:53)
[2023-07-08] MEDS: THIAMINE HCL 200 MG in SODIUM CHLORIDE 0.9% 50 ML IV SCH ×2 (07:46→20:54)
[2023-07-08] MEDS: CEROVITE ADV FORMULA TAB PO SCH (07:46)
[2023-07-08] MEDS: SENNA 8.6 MG TAB PO SCH (07:46)
[2023-07-08] MEDS: ACETAMINOPHEN 500 MG TAB PO SCH ×3 (07:49→21:54)
[2023-07-08 08:48] LABS: Hematocrit (blood only) 41.3 % (42.0-52.0); Hemoglobin 14.3 g/dl (14.0-18.0); Mean Corpuscular Hemoglobin 31.5 pg (25.0-34.0); Mean Corpuscular Hgb Conc 34.6 g/dL (32.0-36.0); Mean Platelet Volume 10.7 fL (9.4-12.4); Platelet Count 206 K/uL (130-400); RDW Coefficient of Variation 13.6 % (11.5-14.5); RDW Standard Deviation 44.9 fL (36.4-46.3); Red Blood Count 4.54 M/uL (4.70-6.10); White Blood Count 4.52 K/ul (4.8-10.8)
[2023-07-08 09:05] LABS: BUN Creatinine Ratio 31.1 (10-20); Calcium 9.2 mg/dl (8.6-10.3); Creatinine Clr Calc Pharmacy 58.2 ml/min; Est GFR (African American) 80.8 ml/min; Est GFR (Non-African American) 69.7 ml/min; Potassium 3.8 mmol/L (3.5-5.1)
[2023-07-08 09:37] LABS: Prothrombin Time 11.1 Seconds (9.0-12.0)
[2023-07-08] MEDS ORDERED: bisacodyL 10 MG SUPP PR ONE (14:00)
--- NOTE | 2023-07-08 19:20 | Hospitalist Progress Note ---
Date of Service July 08, 2023 Assessment & Plan (1) Sepsis: Plan: 2nd to left foot gangrene/osteomyelitis of 1st and 5th toes, s/p amputation of both toes by Dr Price. Intra-op culture from the 1st/5th toe amputations grew group C strep. Remains on IV unasyn. Ultimately needed TMA of the left foot - 06/26/23 - also by Dr Price. Unfortunately angiography completed by Dr Sher on 06/22/23 revealed severe PAD of the left leg with no option for bypass. Dr Price re-evaluated the left foot on 07/01/23 and unfortunately the TMA is already necrosing. Dr Sher met with the patient 07/02 to discuss BKA and possibly even AKA and patient initially declined any further surgery. After several days of thinking about options patient now consistently telling nursing, providers, etc he is ready & willing to undergo left foot amputation. There has been some question about his capacity for medical decision making but he appears to understand the risks of not doing surgery (recurrent sepsis/gangrene/) and understands the risks/benefits of doing amputation. Formal psychiatry evaluation by Dr Vaz appreciated. She, too, agrees Mr Blanchard retains medical decision making capacity at this time. Dr Sher has scheduled left BKA - possibly AKA - for 07/09/23. NPO after MN tonight. pre-op labs today -- CBC, BMP, INR -- all stable/satisfactory. (2) Osteomyelitis: Plan: Status post first and fifth toe amputations on the left foot 06/[address] Price, podiatry Ultimately needed left TMA 06/26 due to nonhealing wounds (1st/5th MTPs) due to significant vasculopathy - surgery also by Dr Price Cont IV unasyn until his amputation has been completed - scheduled for 07/09/[address] Sher see #1 above (3) Duodenal ulcer: Plan: 08/2022 - EGD with esophagitis and duodenal ulcers however, following the EGD, he never took acid reduction with PPI he has had abdominal pains for months and weight loss now on PPI twice daily and carafate QID no c/o abd pain in several days (4) Controlled type 2 diabetes mellitus with neurologic complication, with long- term current use of insulin: Plan: HbA1c 7% Per staff he had been declining insulin earlier in the admission insulin stopped since he was declining such (5) Unintentional weight loss of 10% body weight within 6 months: Plan: patient told prior attending physician he did NOT want further work-up for his abdominal pains or weight loss (6) Severe protein-calorie malnutrition: Plan: 15kg weight loss since late 2021 see discussion above cont remeron - consider increase to 15mg but leave at 7.5mg as per Dr Vaz prior h/o B1 def -- will treat empirically 200mg BID given his malnutrition weight stable over the last week at about 68 kg drinking about 4 boosts each day which is his preference; does not want solid foods (7) Insomnia: Plan: in light of weight loss, poor appetite, insomnia, prior mental health issues (as listed in chart) started remeron 7.5mg HS - /15 - tolerating thus far without induction of ho, etc (8) CAD in [place] artery: Plan: no ischemic symptoms at this time plavix remains on hold in preparation for amputation of L foot cont lipitor (9) Peripheral arterial occlusive disease: Plan: severe as seen on arteriogram on 06/22/[address] Sher unfortunately he is not a candidate for bypass as per Dr Sher making BKA or AKA the best option for healing for his left leg scheduled for BKA - possibly AKA - on 07/09/23 (10) DVT prophylaxis: Plan: heparin 5000 TID hold starting tomorrow for surgery (11) Candidiasis of mouth and esophagus: Plan: cont nystatin solution 5ml qid swish/spit - appears resolved Plan CODE STATUS: DNR/DNI Appreciate Dr Sher, Dr Price, and Dr Mcdaniels's assistance Of note - patient does have a documented psychiatric history However, he understands cause & effect of his potential decisions - he voices understanding that if he does not pursue additional surgery on the L foot there is a high likelihood of ongoing infection/gangrene, sepsis, and even psych consult completed - Mr Blanchard retains medical decision ability cont IV pain meds cont IV unasyn updated pt's friend "Jacques" at # listed in chart on 07/06/23 Admission and Anticipated Discharge Date Admission Date: June 18, 2023 Subjective no changes laying in bed - uninterested in TV, activities, getting out of bed, etc he hasn't had a stool in many days states "it's not that unusual for me to go 4-5 days" ordered suppository - he refused such denies any new complaints Review of Systems Review of Systems: cv - no chest pain pulm - no dyspnea GI - no abd pain/nausea/emesis Physical Exam Physical Exam: gen - NAD, thin, looks same as previous neck - no JVD mouth - MMM, geographic tongue, thrush resolved heart - RRR, s1 s2, no murmur lungs - CTA b/l abd - soft NT ND BS+ vascular - pulses b/l feet unchanged - 1+ b/l musculo - left foot dressings removed; mild odor present from the L foot; continued ischemic appearing skin surrounding the TMA incision line; incision line with black material/eschar like material psych - flat affect Results & Data Results & Data Vital Signs (Past 12 Hours) Vital Signs Temp Pulse Resp BP Pulse Ox O2 Del Method 07/08/23 14:10 37.1 C 67 16 103/68 96 Room Air 07/08/23 09:01 Room Air Laboratory Results Laboratory Results - last 24 hr 07/08/23 08:12 WBC 4.52 L RBC 4.54 L Hgb 14.3 Hct 41.3 L MCV 91.0 MCH 31.5 MCHC 34.6 RDW Std Deviation 44.9 RDW Coeff of Gissel 13.6 Plt Count 206 MPV 10.7 PT 11.1 INR 1.0 Sodium 141 Potassium 3.8 Chloride 107 Carbon Dioxide 25 Anion Gap 9 BUN 32 H Creatinine 1.03 Est Cr Clr Drug Dosing 58.2 Est GFR ( Amer) 80.8 Est GFR (Non-Af Amer) 69.7 BUN/Creatinine Ratio 31.1 H Glucose 127 H Calcium 9.2 PG Care Time/CCT Total # of Minutes Spent Total Time Spent with Patient: Total time spent is greater than 50% in coordination of care (as documented) at patient's floor/unit and/or counseling patient: Coding Level of Care Code 55849 SUB INP/OBS CARE 07/12MIN Diagnoses Sepsis A41.9 Sepsis acute organ dysfunction status: without acute organ dysfunction Sepsis type: sepsis due to unspecified organism Osteomyelitis M86.9 Laterality: left Osteomyelitis location: foot Osteomyelitis type: unspecified type Duodenal ulcer K26.9 Controlled type 2 diabetes mellitus with neurologic complication, with long-term current use of insulin E11.49; Z79.4 Unintentional weight loss of 10% body weight within 6 months R63.4 Severe protein-calorie malnutrition E43 Insomnia G47.00 Insomnia type: unspecified CAD in [place] artery I25.10 Peripheral arterial occlusive disease I77.9 DVT prophylaxis Z29.9 Candidiasis of mouth and esophagus B37.81; B37.0 (1) Sepsis Sepsis acute organ dysfunction status: without acute organ dysfunction Sepsis type: sepsis due to unspecified organism Qualified Code(s): A41.9 - Sepsis, unspecified organism (2) Osteomyelitis Laterality: left Osteomyelitis location: foot Osteomyelitis type: unspecified type Qualified Code(s): M86.9 - Osteomyelitis, unspecified (7) Insomnia Insomnia type: unspecified Qualified Code(s): G47.00 - Insomnia, unspecified
[2023-07-08] MEDS: MIRTAZAPINE TAB 15 MG TAB PO SCH (20:52)
[2023-07-09] MEDS: UNASYN 3000MG / NS q6h IV SCH ×4 (00:34→18:28)
[2023-07-09] MEDS: HYDROmorphone INJ 0.5 MG/0.5 ML SYR IV PRN ×2 (00:34→03:37)
[2023-07-09] MEDS: HEPARIN SOD 5,000 UNIT/0.5 ML VIAL SQ SCH ×3 (05:40→21:57)
[2023-07-09] MEDS: SUCRALFATE 1 GM/10 ML UDC PO SCH ×4 (05:40→20:21)
[2023-07-09] MEDS ORDERED: CLINDAMYCIN/D5W 900 MG/50 ML BAG IV SCH (06:00)
[2023-07-09] MEDS: NYSTATIN SUSP 500,000 U/5 ML UDC PO SCH ×4 (09:02→20:21)
[2023-07-09] MEDS: ATORVASTATIN 40 MG TAB PO SCH (09:02)
[2023-07-09] MEDS: PANTOprazole 40 MG TAB PO SCH ×2 (09:02→20:22)
[2023-07-09] MEDS: SENNA 8.6 MG TAB PO SCH (09:03)
[2023-07-09] MEDS: CEROVITE ADV FORMULA TAB PO SCH (09:03)
[2023-07-09] MEDS: THIAMINE HCL 200 MG in SODIUM CHLORIDE 0.9% 50 ML IV SCH ×2 (09:06→20:22)
[2023-07-09] MEDS: ACETAMINOPHEN 500 MG TAB PO SCH ×3 (09:11→21:57)
[2023-07-09] MEDS: POLYETHYLENE (MIRALAX) 17 GM PACK PO SCH (09:11)
[2023-07-09] MEDS: HYDROmorphone HCL 2 MG TAB PO PRN ×2 (11:04→20:21)
[2023-07-09] MEDS: MIRTAZAPINE TAB 15 MG TAB PO SCH (20:21)
--- NOTE | 2023-07-09 20:28 | Hospitalist Progress Note ---
Date of Service July 09, 2023 Assessment & Plan (1) Sepsis: Plan: 2nd to left foot gangrene/osteomyelitis of 1st and 5th toes, s/p amputation of both toes by Dr Price. Intra-op culture from the 1st/5th toe amputations grew group C strep. Remains on IV unasyn. Ultimately needed TMA of the left foot - 06/26/23 - also by Dr Price. Unfortunately angiography completed by Dr Sher on 06/22/23 revealed severe PAD of the left leg with no option for bypass. Dr Price re-evaluated the left foot on 07/01/23 and unfortunately the TMA is already necrosing. Dr Sher met with the patient 07/02 to discuss BKA and possibly even AKA and patient initially declined any further surgery. After several days of thinking about options patient now consistently telling the care team he wants to undergo left foot amputation. There has been some question about his capacity for medical decision making but he appears to understand the risks of not doing surgery (recurrent sepsis/gangrene/) and understands the risks/benefits of doing amputation. Formal psychiatry evaluation by Dr Vaz appreciated. She, too, agrees Mr Blanchard retains medical decision making capacity at this time. Dr Sher had scheduled left BKA - possibly AKA - today but the case got canceled (Dr Sher not available due to illness). Diet resumed. Of note - recent pre-op labs -- CBC, BMP, INR -- all stable/satisfactory. If Dr Sher is out for a lengthy period of time will need to check with gen surg or orthopedics to see if an alternative provider can complete his surgery. (2) Osteomyelitis: Plan: Status post first and fifth toe amputations on the left foot 06/[address] Price, podiatry Ultimately needed left TMA 06/26 due to nonhealing wounds (1st/5th MTPs) due to significant vasculopathy - surgery also by Dr Price Cont IV unasyn until his amputation has been completed - scheduled for 07/09/[address] Sher see #1 above (3) Duodenal ulcer: Plan: 08/2022 - EGD with esophagitis and duodenal ulcers however, following the EGD, he never took acid reduction with PPI he has had abdominal pains for months and weight loss but has not c/o such over the last week cont PPI twice daily and carafate QID (4) Controlled type 2 diabetes mellitus with neurologic complication, with long- term current use of insulin: Plan: HbA1c 7% Per staff he had been declining insulin earlier in the admission insulin stopped since he was declining such just cont with DM diet (5) Unintentional weight loss of 10% body weight within 6 months: Plan: patient told prior attending physician he did NOT want further work-up for his abdominal pains or weight loss (6) Severe protein-calorie malnutrition: Plan: 15kg weight loss since late 2021 see discussion above cont remeron - consider increase to 15mg but leave at 7.5mg as per Dr Vaz prior h/o B1 def -- will treat empirically 200mg BID given his malnutrition weight stable over the last week at about 68 kg drinking about 4 boosts each day which is his preference; does not want solid foods (7) Insomnia: Plan: in light of weight loss, poor appetite, insomnia, prior mental health issues (as listed in chart) started remeron 7.5mg HS - / - tolerating thus far without induction of oh, etc consider increasing to 15mg HS next 1-2 days (8) CAD in [place] artery: Plan: no ischemic symptoms at this time plavix remains on hold in preparation for amputation of L foot cont lipitor (9) Peripheral arterial occlusive disease: Plan: severe as seen on arteriogram on 06/22/[address] Sher unfortunately he is not a candidate for bypass as per Dr Sher making BKA or AKA the best option for healing for his left leg scheduled for BKA - possibly AKA - on 07/09/23 --> but canceled as above (10) DVT prophylaxis: Plan: heparin 5000 TID (11) Candidiasis of mouth and esophagus: Plan: resolved can likely d/c next 48 hours Plan CODE STATUS: DNR/DNI Appreciate Dr Sher, Dr Price, and Dr Mcdaniels's assistance Of note - patient does have a documented psychiatric history However, he understands cause & effect of his potential decisions - he voices understanding that if he does not pursue additional surgery on the L foot there is a high likelihood of ongoing infection/gangrene, sepsis, and even psych consult completed - Mr Blanchard retains medical decision ability cont IV pain meds cont IV unasyn constipation - intermittently refusing miralax + senna; refused dulcolax suppos yesterday still no BM .... updated pt's friend "Jacques" at # listed in chart on 07/06/23 and again this evening, 07/09/23 Admission and Anticipated Discharge Date Admission Date: June 18, 2023 Subjective pt's BKA (possible AKA) surgery got canceled today - by report Dr Sher had to call off ill during the visit he was lying comfortably in bed he was aware of Dr Sher's absence denies any new complaints continues to lay in bed all day appetite poor; just drinking boost refused the dulcolax suppos yesterday a family member apparently expressed concern to staff that he appeared jaundice? Review of Systems Review of Systems: cv - no chest pain pulm - no dyspnea at rest GI - no abd pain Physical Exam Physical Exam: gen - NAD, thin, looks same as previous eyes - no scleral icterus skin - no jaundice neck - no JVD mouth - MMM, geographic tongue, thrush resolved heart - RRR, s1 s2, no murmur lungs - CTA b/l abd - soft NT ND BS+ vascular - pulses b/l feet unchanged - 1+ b/l musculo - left foot dressings left intact today; no bleeding; no signs of cellulitis on left distal leg/souza Results & Data Results & Data Vital Signs (Past 12 Hours) Vital Signs Temp Pulse Resp BP Pulse Ox O2 Del Method 07/09/23 14:42 37.3 C 69 18 103/65 96 Room Air 07/09/23 08:42 36.6 C 67 18 102/71 96 Room Air Laboratory Results Laboratory Results - last 24 hr 07/09/23 05:36 Blood Type B Positive Antibody Screen NEGATIVE PG Care Time/CCT Total # of Minutes Spent Total Time Spent with Patient: Total time spent is greater than 50% in coordination of care (as documented) at patient's floor/unit and/or counseling patient: Coding Level of Care Code 16577 SUB INP/OBS CARE 2/35MIN Diagnoses Sepsis A41.9 Sepsis acute organ dysfunction status: without acute organ dysfunction Sepsis type: sepsis due to unspecified organism Osteomyelitis M86.9 Laterality: left Osteomyelitis location: foot Osteomyelitis type: unspecified type Duodenal ulcer K26.9 Controlled type 2 diabetes mellitus with neurologic complication, with long-term current use of insulin E11.49; Z79.4 Unintentional weight loss of 10% body weight within 6 months R63.4 Severe protein-calorie malnutrition E43 Insomnia G47.00 Insomnia type: unspecified CAD in [place] artery I25.10 Peripheral arterial occlusive disease I77.9 DVT prophylaxis Z29.9 Candidiasis of mouth and esophagus B37.81; B37.0 (1) Sepsis Sepsis acute organ dysfunction status: without acute organ dysfunction Sepsis type: sepsis due to unspecified organism Qualified Code(s): A41.9 - Sepsis, unspecified organism (2) Osteomyelitis Laterality: left Osteomyelitis location: foot Osteomyelitis type: unspecified type Qualified Code(s): M86.9 - Osteomyelitis, unspecified (7) Insomnia Insomnia type: unspecified Qualified Code(s): G47.00 - Insomnia, unspecified
[2023-07-10] MEDS: UNASYN 3000MG / NS q6h IV SCH ×4 (00:25→17:49)
[2023-07-10] MEDS: HEPARIN SOD 5,000 UNIT/0.5 ML VIAL SQ SCH ×3 (05:40→21:29)
[2023-07-10] MEDS: SUCRALFATE 1 GM/10 ML UDC PO SCH ×4 (06:12→21:29)
[2023-07-10] MEDS: SENNA 8.6 MG TAB PO SCH (07:34)
[2023-07-10] MEDS: HYDROmorphone HCL 2 MG TAB PO PRN ×2 (07:34→16:46)
[2023-07-10] MEDS: CEROVITE ADV FORMULA TAB PO SCH (07:35)
[2023-07-10] MEDS: NYSTATIN SUSP 500,000 U/5 ML UDC PO SCH ×4 (07:35→21:29)
[2023-07-10] MEDS: PANTOprazole 40 MG TAB PO SCH ×2 (07:36→21:29)
[2023-07-10] MEDS: ATORVASTATIN 40 MG TAB PO SCH (07:36)
[2023-07-10] MEDS: THIAMINE HCL 200 MG in SODIUM CHLORIDE 0.9% 50 ML IV SCH ×2 (07:41→21:30)
[2023-07-10] MEDS: ACETAMINOPHEN 500 MG TAB PO SCH ×3 (07:44→21:33)
[2023-07-10] MEDS: POLYETHYLENE (MIRALAX) 17 GM PACK PO SCH (07:45)
[2023-07-10] MEDS: HYDROmorphone INJ 0.5 MG/0.5 ML SYR IV PRN (17:53)
--- NOTE | 2023-07-10 19:38 | Hospitalist Progress Note ---
Date of Service July 10, 2023 Assessment & Plan (1) Sepsis: Plan: 2nd to left foot gangrene/osteomyelitis of 1st and 5th toes, s/p amputation of both toes by Dr Price. Intra-op culture from the 1st/5th toe amputations grew group C strep. Remains on IV unasyn. Ultimately needed TMA of the left foot - 06/26/23 - also by Dr Price. Unfortunately angiography completed by Dr Sher on 06/22/23 revealed severe PAD of the left leg with no option for bypass. Dr Price re-evaluated the left foot on 07/01/23 and unfortunately the TMA is already necrosing. Dr Sher met with the patient 07/02 to discuss BKA and possibly even AKA and patient initially declined any further surgery. After several days of thinking about options patient now consistently telling the care team he wants to undergo left foot amputation. There has been some question about his capacity for medical decision making but he appears to understand the risks of not doing surgery (recurrent sepsis/gangrene/) and understands the risks/benefits of doing amputation. Formal psychiatry evaluation by Dr Vaz appreciated. She, too, agrees Mr Blanchard retains medical decision making capacity at this time. Dr Sher had scheduled left BKA - possibly AKA - has been rescheduled for tomorrow recent pre-op labs -- CBC, BMP, INR -- all stable/satisfactory. (2) Osteomyelitis: Plan: Status post first and fifth toe amputations on the left foot 06/[address] Price, podiatry Ultimately needed left TMA 06/26 due to nonhealing wounds (1st/5th MTPs) due to significant vasculopathy - surgery also by Dr Price Cont IV unasyn until his amputation has been completed - scheduled for 07/10/[address] Sher see #1 above (3) Duodenal ulcer: Plan: 08/2022 - EGD with esophagitis and duodenal ulcers however, following the EGD, he never took acid reduction with PPI he has had abdominal pains for months and weight loss but has not c/o such over the last week cont PPI twice daily and carafate QID (4) Controlled type 2 diabetes mellitus with neurologic complication, with long- term current use of insulin: Plan: HbA1c 7% Per staff he had been declining insulin earlier in the admission insulin stopped since he was declining such just cont with DM diet (5) Unintentional weight loss of 10% body weight within 6 months: Plan: patient told prior attending physician he did NOT want further work-up for his abdominal pains or weight loss (6) Severe protein-calorie malnutrition: Plan: 15kg weight loss since late 2021 see discussion above cont remeron - consider increase to 15mg but leave at 7.5mg as per Dr Vaz prior h/o B1 def -- will treat empirically 200mg BID given his malnutrition - change to oral dosing after several more doses weight stable over the last week at about 68 kg drinking about 4 boosts each day which is his preference; does not want solid foods (7) Insomnia: Plan: in light of weight loss, poor appetite, insomnia, prior mental health issues (as listed in chart) started remeron 7.5mg HS - 07/02 - tolerating thus far without induction of ho, etc consider increasing to 15mg HS next 1-2 days (8) CAD in [place] artery: Plan: no ischemic symptoms at this time plavix remains on hold in preparation for amputation of L foot cont lipitor (9) Peripheral arterial occlusive disease: Plan: severe as seen on arteriogram on 06/22/[address] Sher unfortunately he is not a candidate for bypass as per Dr Sher making BKA or AKA the best option for healing for his left leg (10) DVT prophylaxis: Plan: heparin 5000 TID (11) Candidiasis of mouth and esophagus: Plan: resolved can likely d/c next 48 hours Plan CODE STATUS: DNR/DNI Appreciate Dr Sher, Dr Price, and Dr Mcdaniels's assistance Of note - patient does have a documented psychiatric history However, he understands cause & effect of his potential decisions - he voices understanding that if he does not pursue additional surgery on the L foot there is a high likelihood of ongoing infection/gangrene, sepsis, and even psych consult completed - Mr Blanchard retains medical decision ability cont IV pain meds cont IV unasyn constipation - intermittently refusing miralax + senna; refused dulcolax suppos yesterday still no BM .... updated pt's friend "Jacques" at # listed in chart on 07/06/23 and again 07/09/23 Admission and Anticipated Discharge Date Admission Date: June 18, 2023 Subjective continues to have significant pain severe at times LLE. No cough SOB fever Physical Exam Physical Exam: PHYSICAL EXAMINATION Last 24h vital signs reviewed, see documentation in flowsheet General: comfortable appearing, no distress HEENT: Normocephalic, atraumatic, pupils round and equal, sclerae anicteric, no conjunctival injection, moist mucus membranes Lungs: Normal respiratory effort. Clear to auscultation bilaterally. No RRW Heart: Regular rate and rhythm, no murmurs. No JVD Abdomen: nondistended. Bowel sounds present. Extremities: left foot is status post TMA and wrapped in surgical dressing which is clean dry and intact, there is a gangrenous odor present. exposed areas of lower extremities are warm. No edema right lower extremity Neuro: Alert and oriented x 4, face symmetric, moves 4 extremities well Psych: Normal affect and behavior Results & Data Results & Data Vital Signs (Past 12 Hours) Vital Signs Temp Pulse Resp BP Pulse Ox O2 Del Method 07/10/23 15:18 36.7 C 76 16 108/70 97 Room Air PG Care Time/CCT Total # of Minutes Spent Total Time Spent with Patient: Total time spent is greater than 50% in coordination of care (as documented) at patient's floor/unit and/or counseling patient: Coding Level of Care Code 90886 SUB INP/OBS CARE 07/12MIN Diagnoses Sepsis A41.9 Sepsis acute organ dysfunction status: without acute organ dysfunction Sepsis type: sepsis due to unspecified organism Osteomyelitis M86.9 Laterality: left Osteomyelitis location: foot Osteomyelitis type: unspecified type Duodenal ulcer K26.9 Controlled type 2 diabetes mellitus with neurologic complication, with long-term current use of insulin E11.49; Z79.4 Unintentional weight loss of 10% body weight within 6 months R63.4 Severe protein-calorie malnutrition E43 Insomnia G47.00 Insomnia type: unspecified CAD in [place] artery I25.10 Peripheral arterial occlusive disease I77.9 DVT prophylaxis Z29.9 Candidiasis of mouth and esophagus B37.81; B37.0 (1) Sepsis Sepsis acute organ dysfunction status: without acute organ dysfunction Sepsis type: sepsis due to unspecified organism Qualified Code(s): A41.9 - Sepsis, uns pecified organism (2) Osteomyelitis Laterality: left Osteomyelitis location: foot Osteomyelitis type: unspecified type Qualified Code(s): M86.9 - Osteomyelitis, unspecified (7) Insomnia Insomnia type: unspecified Qualified Code(s): G47.00 - Insomnia, unspecified
[2023-07-10] MEDS: MIRTAZAPINE TAB 15 MG TAB PO SCH (21:28)
[2023-07-11] MEDS: UNASYN 3000MG / NS q6h IV SCH ×4 (00:06→17:33)
[2023-07-11] MEDS ORDERED: CLINDAMYCIN/D5W 900 MG/50 ML BAG IV SCH (06:00)
[2023-07-11] MEDS: HEPARIN SOD 5,000 UNIT/0.5 ML VIAL SQ SCH ×3 (06:06→21:17)
[2023-07-11] MEDS: THIAMINE HCL 200 MG in SODIUM CHLORIDE 0.9% 50 ML IV SCH ×2 (07:40→21:16)
[2023-07-11] MEDS: ATORVASTATIN 40 MG TAB PO SCH (07:40)
[2023-07-11] MEDS: SENNA 8.6 MG TAB PO SCH (07:41)
[2023-07-11] MEDS: POLYETHYLENE (MIRALAX) 17 GM PACK PO SCH (07:41)
[2023-07-11] MEDS: NYSTATIN SUSP 500,000 U/5 ML UDC PO SCH ×3 (07:41→16:42)
[2023-07-11] MEDS: CEROVITE ADV FORMULA TAB PO SCH (07:41)
[2023-07-11] MEDS: SUCRALFATE 1 GM/10 ML UDC PO SCH ×4 (07:41→21:16)
[2023-07-11] MEDS: ACETAMINOPHEN 500 MG TAB PO SCH ×3 (07:41→21:17)
[2023-07-11] MEDS: PANTOprazole 40 MG TAB PO SCH ×2 (07:44→21:17)
[2023-07-11] MEDS: HYDROmorphone INJ 0.5 MG/0.5 ML SYR IV PRN ×2 (07:46→17:12)
--- NOTE | 2023-07-11 09:29 | History & Physical Bridge Note ---
Date of Service July 11, 2023 History & Physical Bridge Note Patient for left below the knee amputated as possible above-knee amputation. I have discussed the risks options and benefits of the procedure with the patient. The patient understands the risks options and benefits and agrees to the procedure. I have examined the patient, reviewed the History & Physical and in the interval since the performance of the History & Physical I have noted the following changes of clinical significance: no changes noted
[2023-07-11] MEDS ORDERED: LIDOCAINE 2% 2 ML VIAL/AMP(20MG/ML) INFIL ONE (12:29)
[2023-07-11] MEDS ORDERED: DEXAMETHASONE SOD INJ 4 MG/ML VIAL ONE ×2 (12:29→12:46)
[2023-07-11] MEDS ORDERED: fentaNYL citrate PF 100 MCG/2 ML VIAL ONE ×2 (12:29→13:34)
[2023-07-11] MEDS ORDERED: ONDANSETRON INJ 2 MG/ML 2 ML VIAL ONE (12:29)
[2023-07-11] MEDS ORDERED: PROPOFOL IV EMULSION 10 MG/ML 20 ML VIAL IV ONE (12:29)
--- NOTE | 2023-07-11 12:36 | Anesthesiology Consultation ---
Date of Service July 11, 2023 Assessment & Plan Chart Review Chart Review: Acceptable Risk for Surgery and Patient NOT seen in Pre Admission Testing Consults Requested none ASA ASA4 Proposed Anesthesia Anesthesia Type: General Regional Regional Laterality: Left Site: Popliteal and Adductor Canal Risk / Benefits Reviewed With: PT / POA / Parent / Guardian, Accepts Plan and Informed Consent Obtained History Surgery Operation Date: 06/19/23 08:50 Proposed Procedures p Left 1st and 2nd Toe Amputation - Raffy Price DPM, MS Operation Date: 06/22/23 11:40 Proposed Procedures p Left Leg Arteriogram - Duane Sher MD Operation Date: 06/26/23 07:00 Proposed Procedures p Left Transmetatarsal Amputation - Raffy Price DPM, MS Operation Date: 07/11/23 12:00 Proposed Procedures p Left Leg Below Knee Amputation - Duane Sher MD Height/Weight Height: 5 ft 9 in Weight: 68.2 kg Allergies Allergy/AdvReac Type Severity Reaction Status Date / Time morphine AdvReac Severe "STOPS MY Verified 06/18/23 15:02 HEART" diazepam AdvReac Intermediate HALLUCINATE Verified 06/18/23 15:02 S hydromorphone [From Dilaudid] AdvReac Intermediate unresponsiv Verified 06/18/23 15:02 eness propoxyphene AdvReac Intermediate DRUG Verified 06/18/23 15:02 INTOLERANCE trazodone AdvReac Intermediate GI UPSET Verified 06/18/23 15:02 Medications Home Medications Medication Instructions Recorded Confirmed Last Taken acetaminophen 500 mg tablet 1,000 mg PO Q8H PRN Pain 06/05/19 06/18/23 11/03/20 (Tylenol Extra Strength) nitroglycerin 0.4 mg sublingual 0.4 mg sublingual UD PRN Chest Pain 11/04/20 06/18/23 Unknown tablet (Nitrostat) pen needle, diabetic 31 gauge x #400 ea 07/11/21 11/28/22 Unknown 3/16" (BD Ultra-Fine Mini Pen Needle) cyanocobalamin (vitamin B-12) 1,000 mcg PO QAM 08/10/21 06/18/23 06/29/22 1,000 mcg tablet (Vitamin B-12) blood sugar diagnostic (OneTouch #100 ea 08/26/21 11/28/22 Unknown Ultra Test strips) [id number]-[id number] 300 mcg-K 60 1 tab PO DAILY 09/01/21 06/18/23 06/29/22 mcg-lycop 600 mcg-lutein 300 mcg tablet (Centrum Silver Men) Super Beta Prostate 1 tab PO QAM 09/05/21 06/18/23 06/29/22 insulin glargine 100 unit/mL (3 15 unit subcut QPM 10/12/21 06/18/23 06/29/22 mL) subcutaneous pen (Lantus Solostar U-100 Insulin) insulin lispro 100 unit/mL 5 - 7 unit subcut TID 10/12/21 06/18/23 06/29/22 subcutaneous pen (Humalog KwikPen (U-100) Insulin) clopidogrel 75 mg tablet 75 mg PO DAILY #90 tabs 12/09/21 06/18/23 06/29/22 tamsulosin 0.4 mg capsule 0.4 mg PO DAILY #90 caps 12/09/21 06/18/23 06/29/22 atorvastatin 40 mg tablet (Lipitor) 40 mg PO QAM 04/12/22 06/18/23 06/29/22 pantoprazole 40 mg tablet,delayed 40 mg PO DAILY #30 tabs 09/26/22 06/18/23 Unknown release Active Medications Generic Name Dose Route Start Last Admin Trade Name Freq PRN Reason Stop Dose Admin Acetaminophen 1,000 mg 07/02/23 14:00 07/11/23 07:41 Acetaminophen 500 Mg Tab PO 08/01/23 13:59 Not Given TID [facility] Atorvastatin Calcium 40 mg 07/08/23 09:00 07/11/23 07:40 Atorvastatin 40 Mg Tab PO 08/07/23 08:59 40 mg QAM NIKOLAI Administration Heparin Sodium (Porcine) 5,000 units 06/23/23 14:00 07/11/23 06:06 Heparin Sod 5,000 Unit/0.5 Ml Vial SQ 07/23/23 13:59 5,000 units Q8 NIKOLAI Administration Hydromorphone HCl 0.5 mg 07/09/23 09:29 07/11/23 07:46 Hydromorphone Inj 0.5 Mg/0.5 Ml Syr IV 07/16/23 14:32 0.5 mg Q2H PRN Administration Pain unrelieved by PO dilaudid Hydromorphone HCl 2 mg 07/09/23 09:29 07/10/23 16:46 Hydromorphone Hcl 2 Mg Tab PO 07/23/23 09:28 2 mg Q6H PRN Administration Pain Ampicillin Sodium/Sulbactam 100 mls @ 200 mls/hr 07/06/23 12:30 07/11/23 06:37 Sodium 3,000 mg/ Sodium IV 07/13/23 12:29 Infused Chloride Q6H NIKOLAI Infusion Thiamine HCl 200 mg/ Sodium 52 mls @ 210 mls/hr 07/06/23 21:00 07/11/23 08:10 Chloride IV 08/05/23 20:59 Infused BID NIKOLAI Infusion Mirtazapine 7.5 mg 07/02/23 21:00 07/10/23 21:28 Mirtazapine Tab 15 Mg Tab PO 08/01/23 20:59 7.5 mg HS NIKOLAI Administration Multivitamins/Minerals 1 tab 07/02/23 12:30 07/11/23 07:41 Cerovite Adv Formula Tab PO 08/01/23 12:29 Not Given QAM NIKOLAI Nystatin 5 ml 07/02/23 13:00 07/11/23 07:41 Nystatin Susp 500,000 U/5 Ml Udc PO 07/12/23 12:59 Not Given QID NIKOLAI Pantoprazole Sodium 40 mg 06/21/23 12:15 07/11/23 07:44 Pantoprazole 40 Mg Tab PO 07/21/23 12:14 40 mg BID NIKOLAI Administration Polyethylene Glycol 17 gm 07/02/23 12:45 07/11/23 07:41 Polyethylene (Miralax) 17 Gm Pack PO 08/01/23 12:44 Not Given DAILY NIKOLAI Sennosides 17.2 mg 07/03/23 09:00 07/11/23 07:41 Senna 8.6 Mg Tab PO 08/02/23 08:59 Not Given QAM NIKOLAI Sucralfate 1 gm 06/18/23 17:29 07/11/23 11:56 Sucralfate 1 Gm/10 Ml Udc PO 07/18/23 17:28 Not Given ACHS NIKOLAI NPO Date Last Intake of Fluids: 07/10/23 Time Last Intake of Fluids: 17:00 Last Intake of Fluids Comment: sips w/meds 0830 Date Last Intake of Solids: 07/10/23 Time Last Intake of Solids: 17:00 Past Medical History Medical History Poor historian GERD (gastroesophageal reflux disease) On anticoagulant therapy Kidney stones hx History of COVID-06 May 2022 at a [facility] in [place], [facility]. Peripheral neuropathy Prostate cancer pt did not acknowledge. Sepsis hx Schizoaffective disorder pt denies JUANCARLOS (acute kidney injury) BPH (benign prostatic hyperplasia) Amputated toe of left foot Cellulitis Osteomyelitis hx Diabetic ulcer of toe hx History of diverticulosis Mild cognitive impairment alert and oriented x3 -- "forgetful about his history" Stroke HX X 2-11/2004 AND 09/2019-F/U DR NÚÑEZ Orthostatic dizziness at times Failure of outpatient treatment Venous stasis ulcers of both lower extremities hx in 2019 Venous (peripheral) insufficiency Recurrent falls Parkinsonism per medical record - pt unaware Intermittent explosive disorder Delusional disorder, somatic type not currently -- pt unaware -- pt alert and oriented x3 at this time. Alcohol abuse pt states he quit "a long time ago" Chronic diastolic CHF (congestive heart failure) Benign colonic polyp Dyslipidemia History of tobacco use Nephrolithiasis Raynauds phenomenon Stage III chronic kidney disease Tubular adenoma of colon History of CVA (cerebrovascular accident) hx in 2004 and 2019 --> follows with Dr Núñez. Migraines hx Acute on chronic renal insufficiency pt unsure Osteoarthritis Diabetes mellitus, type 2 Hypertension Hyperlipidemia Myocardial Infarction 2004--follows with Dr. Mejia Exercise / Class Metabolic Activity II 4-5 Yardwork/Stairs/Walk up hill Past Family History Family History Father , age 74 of an GA Diabetes Prostate cancer Colorectal cancer Myocardial infarction Brother Prostate cancer Uncle Colorectal cancer Father Myocardial infarction Mother Myocardial infarction Stroke Other Dementia No family history of adverse response to anesthesia Denies family history of Ovarian cancer Breast cancer Past Surgical History Surgical History H/O left cataract extraction S/P CABG (coronary artery bypass graft) [facility] [place]/P sinus surgery History of lumbar discectomy x2 History of carpal tunnel release of both wrists History of open reduction and internal fixation (ORIF) procedure left ankle--hardware in place History of arthroscopy of left knee History of lithotripsy x2 History of colonoscopy History of tonsillectomy and adenoidectomy Status post uvulopalatopharyngoplasty History of right cataract extraction History of heart artery stent (1998) x1 stent History of cardiac cath x4-5, last 05/19/2019 [facility] NO RECENT STENTS Past Anesthesia History No Hx of Anesthesia Complications and No Family Hx of Anesthesia Complications History of PONV No Hx of PONV and No Hx of Motion Sickness Social History Smoking Status: Former smoker tobacco type: cigarettes Smoking cigarettes per day: 3 Do You Dip or Chew Tobacco: No (quit "a long time ago") Hx Alcohol Use: No Alcohol type: beer alcohol intake frequency: other Hx Substance Use: No substance use type: other Physical Exam Vital Signs Last Vital Signs Temp 36.5 C 07/11/23 11:30 Pulse 69 07/11/23 11:30 Resp 18 07/11/23 11:30 BP 107/77 07/11/23 11:30 Pulse Ox 100 07/11/23 11:30 O2 Del Method Room Air 07/11/23 11:30 O2 Flow Rate 7 06/26/23 17:25 ENMT Mouth: no dentition abnormality Thyromental Distance: > or= 3.5 Finger Breadths Mallampati Class: II Neck normal visual inspection Respiratory normal respiratory effort Auscultation: lungs clear to auscultation bilaterally Cardiovascular Rate/Rhythm: regular rate and regular rhythm Musculoskeletal Extremities: + amputation noted (left foot) Psychiatric Orientation: alert Testing Laboratory Results 07/08/23 08:12 07/08/23 08:12 PT 11.1 Seconds (9.0-12.0) 07/08/23 08:12 INR 1.0 (0.9-1.1) 07/08/23 08:12 APTT 32 Seconds (21-31) H 06/18/23 14:15 Hemoglobin A1c 7.1 % (4.5-5.6) H 06/20/23 05:44 Urine Color Yellow 06/18/23 22:27 Urine Appearance Cloudy (Clear) A 06/18/23 22:27 Urine pH 5.5 (4.5-7.5) 06/18/23 22:27 Ur Specific [place] 1.023 (1.000-1.030) 06/18/23 22:27 Urine Protein Negative (Negative) 06/18/23 22:27 Urine Glucose (UA) Negative (Negative) 06/18/23 22:27 Urine Ketones 1+ (Negative) H 06/18/23 22:27 Urine Nitrite Negative (Negative) 06/18/23 22:27 Ur Leukocyte Esterase 2+ (Negative) H 06/18/23 22:27 Urine WBC (Auto) 10-30 /hpf (0-5) H 06/18/23 22:27 Urine RBC (Auto) 0-4 /hpf (0-4) 06/18/23 22:27 U Hyaline Cast (Auto) 1-5 /lpf (0-5) 06/18/23 22:27 U Epithel Cells (Auto) 20-30 /lpf (0-5) H 06/18/23 22:27 Urine Bacteria (Auto) Negative (Negative) 06/18/23 22:27 Blood Type B Positive 07/09/23 05:36 Antibody Screen NEGATIVE 07/09/23 05:36 06/19/23 Unknown Gram Stain - Final Toe,Left Fifth Aerobic and Anaerobic Culture - Final Group C Beta Strep 06/19/23 Unknown Gram Stain - Final Toe,Left Great Aerobic and Anaerobic Culture - Final Group C Beta Strep 06/18/23 11:46 Aerobic Blood Culture - Final Blood No growth in Aerobic bottle after 5 days. Anaerobic Blood Culture - Final No growth in Anaerobic bottle after 5 days. 06/18/23 12:24 Aerobic Blood Culture - Final Blood No growth in Aerobic bottle after 5 days. Anaerobic Blood Culture - Final 06/18/23 22:27 Urine Culture - Final Urine,Clean Catch No growth - less than 1,000 colonies/mL. 07/11/23 11:32 POC Glucose 109 H Electrocardiogram Date: 06/18/23 Findings: + NSR @ and + RBBB Sinus rhythm with Premature atrial complexes in a pattern of bigeminy Incomplete right bundle branch block Old Inferior infarct Poor R wave progression, consider anterior GA vs. lead placement vs. LVH Abnormal ECG
[2023-07-11] MEDS ORDERED: BUPIVACAINE 0.25% PF 30 ML VIAL ONE (12:46)
[2023-07-11] MEDS ORDERED: EPINEPHrine INJ 1 MG/ML AMP ONE (12:46)
[2023-07-11] MEDS ORDERED: ePHEDrine sulfate 50 MG/ML AMP IV PRN (13:20)
[2023-07-11] MEDS ORDERED: ONDANSETRON INJ 2 MG/ML 2 ML VIAL IV PRN (13:20)
[2023-07-11] MEDS ORDERED: ATROPINE SULFATE 0.1 MG/ML 10ML SYR IV PRN (13:20)
[2023-07-11] MEDS ORDERED: PROMETHAZINE HCL 6.25 MG in SODIUM CHLORIDE 0.9% 50 ML IV PRN (13:20)
[2023-07-11] MEDS ORDERED: HYDROmorphone INJ 2 MG/ML SYR/VIAL ONE (13:39)
[2023-07-11] MEDS ORDERED: PHENYLEPHRINE 100MCG/ML 10ML SYR IV ONE (13:48)
--- NOTE | 2023-07-11 14:19 | Post Operative Brief Note ---
Immediate Post Op Note v1 Date of Surgery July 11, 2023 Pre & Post Diagnosis Operation Date: 07/11/23 12:00 Pre-Op Diagnosis: Left Leg Osteomyelitis Post-Op Diagnosis: Left Leg Osteomyelitis I identified the patient and participated in the time-out.: Yes Procedure Operation Date: 07/11/23 12:00 Actual Procedures p Left Leg Below Knee Amputation(Left) - Duane Sher MD Surgeon Duane Sher MD Mobile Phlebotomist Eveline,PAC Estimated Blood Loss 200 Findings Consistent with Post-Op Diagnosis Specimens Transmetatarsal amputation left foot -pathology Fifth toe left foot - micro/path Anesthesia Type General Regional Complications none Disposition Accompanied Patient To Recovery: No Disposition: Recovery Room
[2023-07-11] MEDS: fentaNYL citrate PF 100 MCG/2 ML VIAL IV PRN ×2 (14:39→14:45)
--- NOTE | 2023-07-11 15:03 | Anesthesiology Progress Note ---
Date of Service July 11, 2023 Anesthesia Post Procedure Vital Signs Vital Signs: Temp Pulse Pulse Resp BP BP Pulse Ox 07/11/23 14:55 36.6 C 76 28 H 121/72 100 07/11/23 14:45 79 30 H 126/64 99 07/11/23 14:35 90 30 H 109/57 L 98 07/11/23 14:25 85 30 H 95/55 L 99 07/11/23 14:15 37.2 C 93 H 22 121/72 99 07/11/23 11:30 36.5 C 69 18 107/77 100 07/11/23 08:03 36.7 C 80 16 108/72 99 07/11/23 08:00 07/10/23 21:28 07/10/23 20:53 36.5 C 59 L 18 98/59 L 98 07/10/23 15:18 36.7 C 76 16 108/70 97 O2 Del Method O2 Flow Rate 07/11/23 14:55 Room Air 0 07/11/23 14:45 Room Air 0 07/11/23 14:35 Room Air 0 07/11/23 14:25 Room Air 0 07/11/23 14:15 Oxymask 8 07/11/23 11:30 Room Air 07/11/23 08:03 Room Air 07/11/23 08:00 Room Air 07/10/23 21:28 Room Air 07/10/23 20:53 Room Air 07/10/23 15:18 Room Air Pain Intensity Left Foot: Pain Intensity: 10 Transfer of Care Handoff Completed per policy Notes Mental Status: alert / awake / arousable Patient Amnestic to Procedure: Yes Nausea / Vomiting: adequately controlled Pain: adequately controlled Airway Patency, RR, SpO2: stable & adequate BP & HR: stable & adequate Hydration State: stable & adequate Anesthetic Complications: no major complications apparent
[2023-07-11] MEDS ORDERED: LORazepam 1 MG in SYRINGE 0.5 ML IV ONE (16:00)
--- NOTE | 2023-07-11 17:46 | Hospitalist Progress Note ---
Date of Service July 11, 2023 Assessment & Plan (1) Sepsis: Plan: 2nd to left foot gangrene/osteomyelitis of 1st and 5th toes, s/p amputation of both toes by Dr Price. Intra-op culture from the 1st/5th toe amputations grew group C strep. Remains on IV unasyn. Ultimately needed TMA of the left foot - 06/26/23 - also by Dr Price. Unfortunately angiography completed by Dr Sher on 06/22/23 revealed severe PAD of the left leg with no option for bypass. Dr Price re-evaluated the left foot on 07/01/23 and unfortunately the TMA is already necrosing. Dr Sher met with the patient 07/02 to discuss BKA and possibly even AKA and patient initially declined any further surgery. After several days of thinking about options patient now consistently telling the care team he wants to undergo left foot amputation. There has been some question about his capacity for medical decision making but he appears to understand the risks of not doing surgery (recurrent sepsis/gangrene/) and understands the risks/benefits of doing amputation. Formal psychiatry evaluation by Dr Vaz appreciated. She, too, agrees Mr Blanchard retains medical decision making capacity at this time. Underwent L BKA 07/11 - discussed with Dr. Sher - had good blood flow so fortunately AKA not necessary. will stop unasyn. (2) Osteomyelitis: Plan: Status post first and fifth toe amputations on the left foot 06/[address] Price, podiatry Ultimately needed left TMA 06/26 due to nonhealing wounds (1st/5th MTPs) due to significant vasculopathy - surgery also by Dr Price treated with IV unasyn until his amputation was completed - further abx not necessary (3) Duodenal ulcer: Plan: 08/2022 - EGD with esophagitis and duodenal ulcers however, following the EGD, he never took acid reduction with PPI he has had abdominal pains for months and weight loss but has not c/o such over the last week cont PPI twice daily and carafate QID (4) Controlled type 2 diabetes mellitus with neurologic complication, with long- term current use of insulin: Plan: HbA1c 7% Per staff he had been declining insulin earlier in the admission insulin stopped since he was declining such just cont with DM diet (5) Unintentional weight loss of 10% body weight within 6 months: Plan: patient told prior attending physician he did NOT want further work-up for his abdominal pains or weight loss (6) Severe protein-calorie malnutrition: Plan: 15kg weight loss since late 2021 see discussion above cont remeron - consider increase to 15mg but leave at 7.5mg as per Dr Vaz prior h/o B1 def -- will treat empirically 200mg BID given his malnutrition - change to oral dosing after several more doses weight stable over the last week at about 68 kg drinking about 4 boosts each day which is his preference; does not want solid foods (7) Insomnia: Plan: in light of weight loss, poor appetite, insomnia, prior mental health issues (as listed in chart) started remeron on 07/02 - increased to 15 mg on 07/11 tolerating thus far without induction of ho, etc (8) CAD in [place] artery: Plan: no ischemic symptoms at this time plavix remains on hold in preparation for amputation of L foot cont lipitor (9) Peripheral arterial occlusive disease: Plan: severe as seen on arteriogram on 06/22/[address] Sher unfortunately he was not a candidate for bypass making BKA the best option for healing for his left leg (10) DVT prophylaxis: Plan: heparin 5000 TID (11) Candidiasis of mouth and esophagus: Plan: resolved Plan CODE STATUS: DNR/DNI Appreciate Dr Sher, Dr Price, and Dr Mcdaniels's assistance Of note - patient does have a documented psychiatric history However, he understands cause & effect of his potential decisions - he voices understanding that if he does not pursue additional surgery on the L foot there is a high likelihood of ongoing infection/gangrene, sepsis, and even psych consult completed - Mr Blanchard retains medical decision ability updated pt's friend "Jacques" at # listed in chart on 07/06/23 and again 07/09/23 Admission and Anticipated Discharge Date Admission Date: June 18, 2023 Subjective Seen immediately preop. L foot pain unchanged. Breathing fine. No chest pain. Eager to get surgery over with. Physical Exam Physical Exam: PHYSICAL EXAMINATION Last 24h vital signs reviewed, see documentation in flowsheet General: comfortable appearing, no distress exam unchanged 07/11: HEENT: Normocephalic, atraumatic, pupils round and equal, sclerae anicteric, no conjunctival injection, moist mucus membranes Lungs: Normal respiratory effort. Clear to auscultation bilaterally. No RRW Heart: Regular rate and rhythm, no murmurs. No JVD Abdomen: nondistended. Bowel sounds present. Extremities: left foot is status post TMA and wrapped in surgical dressing which is clean dry and intact, there is a gangrenous odor present. exposed areas of lower extremities are warm. No edema right lower extremity Neuro: Alert and oriented x 4, face symmetric, moves 4 extremities well Psych: Normal affect and behavior Results & Data Results & Data Vital Signs (Past 12 Hours) Vital Signs Temp Pulse Pulse Resp BP BP Pulse Ox 07/11/23 17:14 36.9 C 68 22 128/72 97 07/11/23 15:19 37.1 C 26 H 126/74 100 07/11/23 14:55 36.6 C 76 28 H 121/72 100 07/11/23 14:45 79 30 H 126/64 99 07/11/23 14:35 90 30 H 109/57 L 98 07/11/23 14:25 85 30 H 95/55 L 99 07/11/23 14:15 37.2 C 93 H 22 121/72 99 07/11/23 11:30 36.5 C 69 18 107/77 100 07/11/23 08:03 36.7 C 80 16 108/72 99 07/11/23 08:00 O2 Del Method O2 Flow Rate 07/11/23 17:14 Room Air 07/11/23 15:19 Room Air 07/11/23 14:55 Room Air 0 07/11/23 14:45 Room Air 0 07/11/23 14:35 Room Air 0 07/11/23 14:25 Room Air 0 07/11/23 14:15 Oxymask 8 07/11/23 11:30 Room Air 07/11/23 08:03 Room Air 07/11/23 08:00 Room Air PG Care Time/CCT Total # of Minutes Spent Total Time Spent with Patient: Total time spent is greater than 50% in coordination of care (as documented) at patient's floor/unit and/or counseling patient: Coding Level of Care Code 74049 SUB INP/OBS CARE 2/35MIN Diagnoses Sepsis A41.9 Sepsis acute organ dysfunction status: without acute organ dysfunction Sepsis type: sepsis due to unspecified organism Osteomyelitis M86.9 Laterality: left Osteomyelitis location: foot Osteomyelitis type: unspecified type Duodenal ulcer K26.9 Controlled type 2 diabetes mellitus with neurologic complication, with long-term current use of insulin E11.49; Z79.4 Unintentional weight loss of 10% body weight within 6 months R63.4 Severe protein-calorie malnutrition E43 Insomnia G47.00 Insomnia type: unspecified CAD in [place] artery I25.10 Peripheral arterial occlusive disease I77.9 DVT prophylaxis Z29.9 Candidiasis of mouth and esophagus B37.81; B37.0 (1) Sepsis Sepsis acute organ dysfunction status: without acute organ dysfunction Sepsis type: sepsis due to unspecified organism Qualified Code(s): A41.9 - Sepsis, unspecified organism (2) Osteomyelitis Laterality: left Osteomyelitis location: foot Osteomyelitis type: unspecif ied type Qualified Code(s): M86.9 - Osteomyelitis, unspecified (7) Insomnia Insomnia type: unspecified Qualified Code(s): G47.00 - Insomnia, unspecified
[2023-07-11] MEDS: MIRTAZAPINE TAB 15 MG TAB PO SCH (21:17)
[2023-07-12] MEDS: HEPARIN SOD 5,000 UNIT/0.5 ML VIAL SQ SCH ×3 (06:37→21:17)
[2023-07-12] MEDS: THIAMINE HCL 200 MG in SODIUM CHLORIDE 0.9% 50 ML IV SCH (07:35)
[2023-07-12] MEDS: CEROVITE ADV FORMULA TAB PO SCH (07:36)
[2023-07-12] MEDS: PANTOprazole 40 MG TAB PO SCH ×2 (07:36→21:13)
[2023-07-12] MEDS: ATORVASTATIN 40 MG TAB PO SCH (07:36)
[2023-07-12] MEDS: SENNA 8.6 MG TAB PO SCH (07:38)
[2023-07-12] MEDS: POLYETHYLENE (MIRALAX) 17 GM PACK PO SCH (07:38)
[2023-07-12] MEDS: ACETAMINOPHEN 500 MG TAB PO SCH ×3 (07:38→21:16)
[2023-07-12] MEDS: SUCRALFATE 1 GM/10 ML UDC PO SCH ×4 (07:38→21:13)
[2023-07-12 11:06] LABS: Hematocrit (blood only) 39.4 % (42.0-52.0); Hemoglobin 13.2 g/dl (14.0-18.0); Mean Corpuscular Hemoglobin 31.1 pg (25.0-34.0); Mean Corpuscular Hgb Conc 33.5 g/dL (32.0-36.0); Mean Corpuscular Volume 92.7 fL (80.0-100.0); Mean Platelet Volume 10.9 fL (9.4-12.4); Platelet Count 215 K/uL (130-400); RDW Standard Deviation 47.2 fL (36.4-46.3); Red Blood Count 4.25 M/uL (4.70-6.10); White Blood Count 9.29 K/ul (4.8-10.8)
[2023-07-12 11:23] LABS: Calcium 9.4 mg/dl (8.6-10.3); Creatinine Clr Calc Pharmacy 61.9 ml/min; Est GFR (African American) 83.8 ml/min; Est GFR (Non-African American) 72.3 ml/min; Potassium 4.4 mmol/L (3.5-5.1)
--- NOTE | 2023-07-12 17:20 | Hospitalist Progress Note ---
Date of Service July 12, 2023 Assessment & Plan (1) Sepsis: Plan: 2nd to left foot gangrene/osteomyelitis of 1st and 5th toes, s/p amputation of both toes by Dr Price. Intra-op culture from the 1st/5th toe amputations grew group C strep. Remains on IV unasyn. Ultimately needed TMA of the left foot - 06/26/23 - also by Dr Price. Unfortunately angiography completed by Dr Sher on 06/22/23 revealed severe PAD of the left leg with no option for bypass. Dr Price re-evaluated the left foot on 07/01/23 and unfortunately the TMA is already necrosing. Dr Sher met with the patient 07/02 to discuss BKA and possibly even AKA and patient initially declined any further surgery. After several days of thinking about options patient now consistently telling the care team he wants to undergo left foot amputation. There has been some question about his capacity for medical decision making but he appears to understand the risks of not doing surgery (recurrent sepsis/gangrene/) and understands the risks/benefits of doing amputation. Formal psychiatry evaluation by Dr Vaz appreciated. She, too, agrees Mr Blanchard retains medical decision making capacity at this time. Underwent L BKA 07/11 - doing well postop Discussed with home care assistant, patient and vascular surgery 07/12 - surgery will eval wound in AM then would be able to discharge to SNF if wound looks good, follow up with Dr. Sher in office in 2-3 weeks for staple removal (2) Osteomyelitis: Plan: Status post first and fifth toe amputations on the left foot 06/[address] Price, podiatry Ultimately needed left TMA 06/26 due to nonhealing wounds (1st/5th MTPs) due to significant vasculopathy - surgery also by Dr Price treated with IV unasyn until his amputation was completed - further abx not necessary (3) Duodenal ulcer: Plan: 08/2022 - EGD with esophagitis and duodenal ulcers however, following the EGD, he never took acid reduction with PPI he has had abdominal pains for months and weight loss but has not c/o such over the last week cont PPI twice daily and carafate QID (4) Controlled type 2 diabetes mellitus with neurologic complication, with long- term current use of insulin: Plan: HbA1c 7% Per staff he had been declining insulin earlier in the admission insulin stopped since he was declining such just cont with DM diet (5) Unintentional weight loss of 10% body weight within 6 months: Plan: patient told prior attending physician he did NOT want further work-up for his abdominal pains or weight loss (6) Severe protein-calorie malnutrition: Plan: 15kg weight loss since late 2021 see discussion above cont remeron - consider increase to 15mg but leave at 7.5mg as per Dr Vaz prior h/o B1 def -- will treat empirically 200mg BID given his malnutrition - change to oral dosing after several more doses weight stable over the last week at about 68 kg drinking about 4 boosts each day which is his preference; does not want solid foods (7) Insomnia: Plan: in light of weight loss, poor appetite, insomnia, prior mental health issues (as listed in chart) started remeron on 07/02 - increased to 15 mg on 07/11 tolerating thus far without induction of ho, etc (8) CAD in [place] artery: Plan: no ischemic symptoms at this time plavix remains on hold in preparation for amputation of L foot cont lipitor (9) Peripheral arterial occlusive disease: Plan: severe as seen on arteriogram on 06/22/[address] Sher unfortunately he was not a candidate for bypass making BKA the best option for healing for his left leg (10) DVT prophylaxis: Plan: heparin 5000 TID (11) Candidiasis of mouth and esophagus: Plan: resolved Plan CODE STATUS: DNR/DNI Appreciate Dr Sher, Dr Price, and Dr Mcdaniels's assistance Of note - patient does have a documented psychiatric history However, he understands cause & effect of his potential decisions - he voices understanding that if he does not pursue additional surgery on the L foot there is a high likelihood of ongoing infection/gangrene, sepsis, and even psych consult completed - Mr Blanchard retains medical decision ability updated pt's friend "Jacques" at # listed in chart on 07/06/23 and again 07/09/23 Admission and Anticipated Discharge Date Admission Date: June 18, 2023 Subjective doing pretty well postop. L stump pain present, has been controlled on low/infrequent doses of IV and po hydromorphone. No dyspnea or chest pain. Physical Exam 2 Physical Exam: PHYSICAL EXAMINATION Last 24h vital signs reviewed, see documentation in flowsheet General: comfortable appearing, no distress HEENT: Normocephalic, atraumatic, pupils round and equal, sclerae anicteric, no conjunctival injection, moist mucus membranes Lungs: Normal respiratory effort. Clear to auscultation bilaterally. No RRW Heart: Regular rate and rhythm, no murmurs. No JVD Abdomen: nondistended. Bowel sounds present. Extremities: LLE s/p BKA with surgical dressing cdi, RLE wwp no edema or wounds Neuro: Alert and oriented x 4, face symmetric, moves 4 extremities well Psych: Normal affect and behavior Results & Data Results & Data Vital Signs (Past 12 Hours) Vital Signs Temp Pulse Resp BP Pulse Ox Pulse Ox O2 Del Method 07/12/23 15:38 64 18 96 Room Air 07/12/23 14:52 36.6 C 50 L 16 107/53 L 98 Room Air 07/12/23 11:41 95 07/12/23 08:23 Room Air 07/12/23 07:28 37.3 C 60 16 117/67 95 Room Air O2 Flow Rate 07/12/23 15:38 07/12/23 14:52 07/12/23 11:41 0 07/12/23 08:23 07/12/23 07:28 Laboratory Results 07/12/23 10:49 07/12/23 10:49 PG Care Time/CCT Total # of Minutes Spent Total Time Spent with Patient: Total time spent is greater than 50% in coordination of care (as documented) at patient's floor/unit and/or counseling patient: Coding Level of Care Code 50973 SUB INP/OBS CARE 2/35MIN Diagnoses Sepsis A41.9 Sepsis acute organ dysfunction status: without acute organ dysfunction Sepsis type: sepsis due to unspecified organism Osteomyelitis M86.9 Laterality: left Osteomyelitis location: foot Osteomyelitis type: unspecified type Duodenal ulcer K26.9 Controlled type 2 diabetes mellitus with neurologic complication, with long-term current use of insulin E11.49; Z79.4 Unintentional weight loss of 10% body weight within 6 months R63.4 Severe protein-calorie malnutrition E43 Insomnia G47.00 Insomnia type: unspecified CAD in [place] artery I25.10 Peripheral arterial occlusive disease I77.9 DVT prophylaxis Z29.9 Candidiasis of mouth and esophagus B37.81; B37.0 (1) Sepsis Sepsis acute organ dysfunction status: without acute organ dysfunction Sepsis type: sepsis due to unspecified organism Qualified Code(s): A41.9 - Sepsis, unspecified organism (2) Osteomyelitis Laterality: left Osteomyelitis location: foot Osteomyelitis type: u nspecified type Qualified Code(s): M86.9 - Osteomyelitis, unspecified (7) Insomnia Insomnia type: unspecified Qualified Code(s): G47.00 - Insomnia, unspecified
[2023-07-12] MEDS: MIRTAZAPINE TAB 15 MG TAB PO SCH (21:13)
[2023-07-12] MEDS: HYDROmorphone INJ 0.5 MG/0.5 ML SYR IV PRN (21:16)
[2023-07-13] MEDS: HYDROmorphone INJ 0.5 MG/0.5 ML SYR IV PRN ×2 (04:22→07:49)
[2023-07-13] MEDS: HEPARIN SOD 5,000 UNIT/0.5 ML VIAL SQ SCH ×3 (04:22→21:17)
[2023-07-13] MEDS: SUCRALFATE 1 GM/10 ML UDC PO SCH ×4 (07:49→21:17)
[2023-07-13] MEDS: ACETAMINOPHEN 500 MG TAB PO SCH ×3 (08:53→21:17)
[2023-07-13] MEDS: THIAMINE HCL 100 MG TAB PO SCH (08:53)
[2023-07-13] MEDS: PANTOprazole 40 MG TAB PO SCH ×2 (08:53→21:17)
[2023-07-13] MEDS: CEROVITE ADV FORMULA TAB PO SCH (08:53)
[2023-07-13] MEDS: SENNA 8.6 MG TAB PO SCH (08:53)
[2023-07-13] MEDS: ATORVASTATIN 40 MG TAB PO SCH (08:54)
[2023-07-13] MEDS: POLYETHYLENE (MIRALAX) 17 GM PACK PO SCH (09:04)
[2023-07-13] MEDS: GABAPENTIN 100 MG CAP PO SCH ×3 (10:23→21:17)
--- NOTE | 2023-07-13 11:16 | Surgery Progress Note ---
Date of Service July 13, 2023 Assessment & Plan (1) S/P BKA (below knee amputation): Plan: Pt now POD #2 after LLE BKA d/t nonhealing wounds/infection. Wound appears as expected for POD #2. Can continue with dry dressing and change daily until no further drainage occurs. Then wound should be kept dry but open to air. Pt ok for d/c from vascular standpoint. Will see in office in 2-3 weeks for staple removal. (2) Peripheral arterial occlusive disease: Plan: Pt with nonhealing wounds to LLE, severe pain LLE, has since undergone LLE BKA. See above. Admission and Anticipated Discharge Date Admission Date: June 18, 2023 Subjective 78 yo m POD #2 after LLE BKA, seen in f/u today. Pt admits significant pain in LLE BKA site, otherwise no complaints. Per staff, pt has required more medication for pain relief today compared to yesterday. Review of Systems Review of Systems: All systems reviewed & are unremarkable except as noted in HPI & below Physical Exam Constitutional: WD/WN, vitals as above cooperative (but uncomfortable d/t pain.) Musculoskeletal: Extremities: + amputation noted (LLE BKA site intact with kamron. Minimal bloody drainage. No erythema.) LLE BKA site tenderness, mild ecchymosis, mild edema. No necrosis
[2023-07-13] MEDS: HYDROmorphone HCL 2 MG TAB PO PRN (12:07)
--- NOTE | 2023-07-13 16:37 | Hospitalist Progress Note ---
Date of Service July 13, 2023 Assessment & Plan (1) Sepsis: Plan: sepsis on admission due to left foot gangrene/osteomyelitis of 1st and 5th toes resolved, s/p amputation of both toes by Dr Price. Intra-op culture from the 1st/5th toe amputations grew group C strep. was treated with ampsulbactam IV Ultimately needed TMA of the left foot - 06/26/23 - also by Dr Price. Unfortunately angiography completed by Dr Sher on 06/22/23 revealed severe PAD of the left leg with no option for bypass. Dr Price re-evaluated the left foot on 07/01/23 and unfortunately the TMA was already necrosing. Dr Sher met with the patient 07/02 to discuss BKA and possibly even AKA and patient initially declined any further surgery. After several days of thinking about options patient now consistently telling the care team he wants to undergo left foot amputation. There has been some question about his capacity for medical decision making but he appears to understand the risks of not doing surgery (recurrent sepsis/gangrene/) and understands the risks/benefits of doing amputation. Formal psychiatry evaluation by Dr Vaz appreciated. She, too, agrees Mr Blanchard retains medical decision making capacity at this time. Underwent L BKA 07/11 - doing well postop 07/12 POD #2 wound check - discussed with vascular surgery, healing as expected "Can continue with dry dressing and change daily until no further drainage occurs. Then wound should be kept dry but open to air. Pt ok for d/c from vascular standpoint. Will see in office in 2-3 weeks for staple removal" Today has increased pain, phantom-limb type requiring IV hydromorphone thus not suitable for discharge today -added gabapentin 100 mg tid -increased oral hydromorphone to 4 mg po q4h PRN -IV hydromorphone 0.5 mg for severe pain -discussed with patient, bedside RN and care coord -discharge to SNF once pain control acceptable (2) Osteomyelitis: Plan: Status post first and fifth toe amputations on the left foot 06/[address] Price, podiatry Ultimately needed left TMA 06/26 due to nonhealing wounds (1st/5th MTPs) due to significant vasculopathy - surgery also by Dr Price treated with IV unasyn until his amputation was completed - further abx not necessary (3) Duodenal ulcer: Plan: 08/2022 - EGD with esophagitis and duodenal ulcers however, following the EGD, he never took acid reduction with PPI he has had abdominal pains for months and weight loss but has not c/o such over the last week cont PPI twice daily and carafate QID (4) Controlled type 2 diabetes mellitus with neurologic complication, with long- term current use of insulin: Plan: HbA1c 7% Per staff he had been declining insulin earlier in the admission insulin stopped since he was declining such just cont with DM diet (5) Unintentional weight loss of 10% body weight within 6 months: Plan: patient told prior attending physician he did NOT want further work-up for his abdominal pains or weight loss (6) Severe protein-calorie malnutrition: Plan: 15kg weight loss since late 2021 see discussion above cont remeron - consider increase to 15mg but leave at 7.5mg as per Dr Vaz prior h/o B1 def -- will treat empirically 200mg BID given his malnutrition - change to oral dosing after several more doses weight stable over the last week at about 68 kg (prior to amputation weight) drinking about 4 boosts each day which is his preference; does not want solid foods (7) Insomnia: Plan: in light of weight loss, poor appetite, insomnia, prior mental health issues (as listed in chart) started remeron on 07/02 - increased to 15 mg on 07/11 tolerating thus far without induction of ho, etc (8) CAD in [place] artery: Plan: no ischemic symptoms at this time resume plavix once no more oozing from stump cont lipitor (9) Peripheral arterial occlusive disease: Plan: severe as seen on arteriogram on 06/22/[address] Sher unfortunately he was not a candidate for bypass making BKA the best option for healing for his left leg (10) DVT prophylaxis: Plan: heparin 5000 TID (11) Candidiasis of mouth and esophagus: Plan: resolved Plan CODE STATUS: DNR/DNI Appreciate Dr Sher, Dr Price, and Dr Mcdaniels's assistance Of note - patient does have a documented psychiatric history However, he understands cause & effect of his potential decisions - he voices understanding that if he does not pursue additional surgery on the L foot there is a high likelihood of ongoing infection/gangrene, sepsis, and even psych consult completed - Mr Blanchard retains medical decision ability updated pt's friend "Jacques" at # listed in chart on 07/06/23 and again 07/09/23 Admission and Anticipated Discharge Date Admission Date: June 18, 2023 Subjective I saw Tian this morning he is having significantly increased pain today, pain is below the site of the amputation consistent with phantom limb pain. was somewhat relieved after 0.5 mg IV hydromorphone this morning but remain painful no recent oral doses given Physical Exam Physical Exam: PHYSICAL EXAMINATION Last 24h vital signs reviewed, see documentation in flowsheet General: comfortable appearing, looks mildly uncomfortable otherwise exam unchanged 07/13 HEENT: Normocephalic, atraumatic, pupils round and equal, sclerae anicteric, no conjunctival injection, moist mucus membranes Lungs: Normal respiratory effort. Clear to auscultation bilaterally. No RRW Heart: Regular rate and rhythm, no murmurs. No JVD Abdomen: nondistended. Bowel sounds present. Extremities: LLE s/p BKA with surgical dressing cdi, RLE wwp no edema or wounds Neuro: Alert and oriented x 4, face symmetric, moves 4 extremities well Psych: Normal affect and behavior Results & Data Results & Data Vital Signs (Past 12 Hours) Vital Signs Temp Pulse Resp BP Pulse Ox O2 Del Method 07/13/23 15:15 36.4 C L 54 L 16 109/64 98 Room Air PG Care Time/CCT Total # of Minutes Spent Total Time Spent with Patient: Total time spent is greater than 50% in coordination of care (as documented) at patient's floor/unit and/or counseling patient: Coding Level of Care Code 92190 SUB INP/OBS CARE 2/35MIN Diagnoses Sepsis A41.9 Sepsis acute organ dysfunction status: without acute organ dysfunction Sepsis type: sepsis due to unspecified organism Osteomyelitis M86.9 Laterality: left Osteomyelitis location: foot Osteomyelitis type: unspecified type Duodenal ulcer K26.9 Controlled type 2 diabetes mellitus with neurologic complication, with long-term current use of insulin E11.49; Z79.4 Unintentional weight loss of 10% body weight within 6 months R63.4 Severe protein-calorie malnutrition E43 Insomnia G47.00 Insomnia type: unspecified CAD in [place] artery I25.10 Peripheral arterial occlusive disease I77.9 DVT prophylaxis Z29.9 Candidiasis of mouth and esophagus B37.81; B37.0 (1) Sepsis Sepsis acute organ dysfunction status: without acute organ dysfunction Sepsis type: sepsis due to unspecified organism Qualified Code(s): A41.9 - Sepsis, unspecified organism (2) Osteomyelitis Laterality: left Osteomyelitis location: foot Osteomyelitis type: unspecified type Qualified Code(s): M86.9 - Osteomyelitis, unspecified (7) Insomnia Insomnia type: unspecified Qualified Code(s): G47.00 - Insomnia, unspecified
[2023-07-13] MEDS: MIRTAZAPINE TAB 15 MG TAB PO SCH (21:17)
[2023-07-14] MEDS: HEPARIN SOD 5,000 UNIT/0.5 ML VIAL SQ SCH ×3 (06:25→21:32)
[2023-07-14] MEDS: SUCRALFATE 1 GM/10 ML UDC PO SCH ×4 (08:45→21:32)
[2023-07-14] MEDS: SENNA 8.6 MG TAB PO SCH (08:46)
[2023-07-14] MEDS: PANTOprazole 40 MG TAB PO SCH ×2 (08:46→21:32)
[2023-07-14] MEDS: THIAMINE HCL 100 MG TAB PO SCH (08:46)
[2023-07-14] MEDS: GABAPENTIN 100 MG CAP PO SCH ×3 (08:47→21:32)
[2023-07-14] MEDS: CEROVITE ADV FORMULA TAB PO SCH (08:47)
[2023-07-14] MEDS: ATORVASTATIN 40 MG TAB PO SCH (08:47)
[2023-07-14] MEDS: POLYETHYLENE (MIRALAX) 17 GM PACK PO SCH (08:48)
[2023-07-14] MEDS: ACETAMINOPHEN 500 MG TAB PO SCH ×3 (08:51→21:32)
[2023-07-14] MEDS: HYDROmorphone HCL 2 MG TAB PO PRN ×2 (08:57→18:43)
--- NOTE | 2023-07-14 15:35 | Hospitalist Progress Note ---
Date of Service July 14, 2023 Assessment & Plan (1) Sepsis: Plan: sepsis on admission due to left foot gangrene/osteomyelitis of 1st and 5th toes resolved, s/p amputation of both toes by Dr Price. Intra-op culture from the 1st/5th toe amputations grew group C strep. was treated with ampsulbactam IV Ultimately needed TMA of the left foot - 06/26/23 - also by Dr Price. Unfortunately angiography completed by Dr Sher on 06/22/23 revealed severe PAD of the left leg with no option for bypass. Dr Price re-evaluated the left foot on 07/01/23 and unfortunately the TMA was already necrosing. Dr Sher met with the patient 07/02 to discuss BKA and possibly even AKA and patient initially declined any further surgery. After several days of thinking about options patient now consistently telling the care team he wants to undergo left foot amputation. There has been some question about his capacity for medical decision making but he appears to understand the risks of not doing surgery (recurrent sepsis/gangrene/) and understands the risks/benefits of doing amputation. Formal psychiatry evaluation by Dr Vaz appreciated. She, too, agrees Mr Blanchard retains medical decision making capacity at this time. Underwent L BKA 07/11 - doing well postop 07/13 POD #2 wound check - discussed with vascular surgery, healing as expected "Can continue with dry dressing and change daily until no further drainage occurs. Then wound should be kept dry but open to air. Pt ok for d/c from vascular standpoint. Will see in office in 2-3 weeks for staple removal" 07/13- has increased pain, phantom-limb type and also at staple line/incision -added gabapentin 100 mg tid -increased oral hydromorphone to 4 mg po q4h PRN ready for discharge to SNF - discussed with care coord, no transport available today (2) Osteomyelitis: Plan: Status post first and fifth toe amputations on the left foot 06/[address] Price, podiatry Ultimately needed left TMA 06/26 due to nonhealing wounds (1st/5th MTPs) due to significant vasculopathy - surgery also by Dr Price treated with IV unasyn until his amputation was completed - further abx not necessary (3) Duodenal ulcer: Plan: 08/2022 - EGD with esophagitis and duodenal ulcers however, following the EGD, he never took acid reduction with PPI he has had abdominal pains for months and weight loss but has not c/o such over the last week cont PPI twice daily and carafate QID (4) Controlled type 2 diabetes mellitus with neurologic complication, with long- term current use of insulin: Plan: HbA1c 7% Per staff he had been declining insulin earlier in the admission insulin stopped since he was declining such just cont with DM diet BG remain 110-150 (5) Unintentional weight loss of 10% body weight within 6 months: Plan: patient told prior attending physician he did NOT want further work-up for his abdominal pains or weight loss (6) Severe protein-calorie malnutrition: Plan: 15kg weight loss since late 2021 see discussion above cont remeron - consider increase to 15mg but leave at 7.5mg as per Dr Vaz prior h/o B1 def -- will treat empirically 200mg BID given his malnutrition - change to oral dosing after several more doses weight stable over the last week at about 70 kg drinking about 4 boosts each day which is his preference; does not want solid foods (7) Insomnia: Plan: in light of weight loss, poor appetite, insomnia, prior mental health issues (as listed in chart) started remeron on 07/02 - increased to 15 mg on 07/11 tolerating thus far without induction of ho, etc (8) CAD in [place] artery: Plan: no ischemic symptoms at this time resume plavix in AM cont lipitor (9) Peripheral arterial occlusive disease: Plan: severe as seen on arteriogram on 06/22/[address] Sher unfortunately he was not a candidate for bypass making BKA the best option for healing for his left leg (10) DVT prophylaxis: Plan: heparin 5000 TID (11) Candidiasis of mouth and esophagus: Plan: resolved Plan CODE STATUS: DNR/DNI Appreciate Dr Sher, Dr Price, and Dr Mcdaniels's assistance Of note - patient does have a documented psychiatric history However, he understands cause & effect of his potential decisions - he voices understanding that if he does not pursue additional surgery on the L foot there is a high likelihood of ongoing infection/gangrene, sepsis, and even psych consult completed - Mr Blanchard retains medical decision ability updated pt's friend "Jacques" at # listed in chart on 07/06/23 and again 07/09/23 Admission and Anticipated Discharge Date Admission Date: June 18, 2023 Subjective still having a lot of R postop BKA pain but pain today is at the incision. just had pain med a few minutes before I came in. Physical Exam 2 Physical Exam: PHYSICAL EXAMINATION Last 24h vital signs reviewed, see documentation in flowsheet General: has eyes closed, appears a little uncomfortable HEENT: Normocephalic, atraumatic, pupils round and equal, sclerae anicteric, no conjunctival injection, moist mucus membranes Lungs: Normal respiratory effort. Clear to auscultation bilaterally. No RRW Heart: Regular rate and rhythm, no murmurs. No JVD Abdomen: nondistended. Bowel sounds present. Extremities: LLE s/p BKA staple line intact no erythema or drainage, RLE wwp no edema or wounds Neuro: Alert and oriented x 4, face symmetric, moves 4 extremities well Psych: Normal affect and behavior Results & Data Results & Data Vital Signs (Past 12 Hours) Vital Signs Temp Pulse Resp BP Pulse Ox O2 Del Method 07/14/23 14:51 37.1 C 65 16 119/65 98 Room Air 07/14/23 08:45 Room Air 07/14/23 07:32 37.1 C 86 16 106/67 96 Room Air Laboratory Results 07/12/23 10:49 07/12/23 10:49 PG Care Time/CCT Total # of Minutes Spent Total Time Spent with Patient: Total time spent is greater than 50% in coordination of care (as documented) at patient's floor/unit and/or counseling patient: Coding Level of Care Code 97049 SUB INP/OBS CARE 2/35MIN Diagnoses Sepsis A41.9 Sepsis acute organ dysfunction status: without acute organ dysfunction Sepsis type: sepsis due to unspecified organism Osteomyelitis M86.9 Laterality: left Osteomyelitis location: foot Osteomyelitis type: unspecified type Duodenal ulcer K26.9 Controlled type 2 diabetes mellitus with neurologic complication, with long-term current use of insulin E11.49; Z79.4 Unintentional weight loss of 10% body weight within 6 months R63.4 Severe protein-calorie malnutrition E43 Insomnia G47.00 Insomnia type: unspecified CAD in [place] artery I25.10 Peripheral arterial occlusive disease I77.9 DVT prophylaxis Z29.9 Candidiasis of mouth and esophagus B37.81; B37.0 (1) Sepsis Sepsis acute organ dysfunction status: without acute organ dysfunction Sepsis type: sepsis due to unspecified organism Qualified Code(s): A41.9 - Sepsis, unspecified organism (2) Osteomyelitis Laterality: left Osteomyelitis location: foot Osteomyelitis type: u nspecified type Qualified Code(s): M86.9 - Osteomyelitis, unspecified (7) Insomnia Insomnia type: unspecified Qualified Code(s): G47.00 - Insomnia, unspecified
--- NOTE | 2023-07-14 18:41 | Discharge Summary ---
Date of Service July 14, 2023 Admission HPI Per Admitting Provider 78-year-old male presents with foot pain lower leg pain black toes tachypnea and weakness Found to likely have sepsis from gangrene to his left foot with gas seen on imaging and soft tissues and osteomyelitis confirmed Patient previously a diabetic who has not been able to eat for 2 years due to stomach pain. Refractory to medical care not taking medications at home who has a declining health and now found to have the gangrene as mentioned. He is agreeable to pursue surgical correction and has previously lost the tip of his left second toe due to complications of diabetic foot infection surgeon was Dr. Boyd. Patient reportedly stopped his insulin last A1c was 5.6 this is due to not being able to eat and having tremendous weight loss as mentioned. He did have an endoscopy earlier in 2022 with confirmed esophagitis gastritis and duodenal ulcers which were nonbleeding. Despite taking Protonix it did not help his symptoms so he decided to stop all medications a few weeks/months ago Principal Diagnosis Left foot gangrene Discharge Exam PHYSICAL EXAMINATION Last 24h vital signs reviewed, see documentation in flowsheet General: has eyes closed, appears a little uncomfortable HEENT: Normocephalic, atraumatic, pupils round and equal, sclerae anicteric, no conjunctival injection, moist mucus membranes Lungs: Normal respiratory effort. Clear to auscultation bilaterally. No RRW Heart: Regular rate and rhythm, no murmurs. No JVD Abdomen: nondistended. Bowel sounds present. Extremities: LLE s/p BKA staple line intact no erythema or drainage, RLE wwp no edema or wounds Neuro: Alert and oriented x 4, face symmetric, moves 4 extremities well Psych: Normal affect and behavior Discharge Data Allergies Allergy/AdvReac Type Severity Reaction Status Date / Time morphine AdvReac Severe "STOPS MY Verified 06/18/23 15:02 HEART" diazepam AdvReac Intermediate HALLUCINATE Verified 06/18/23 15:02 S hydromorphone [From Dilaudid] AdvReac Intermediate unresponsiv Verified 06/18/23 15:02 eness propoxyphene AdvReac Intermediate DRUG Verified 06/18/23 15:02 INTOLERANCE trazodone AdvReac Intermediate GI UPSET Verified 06/18/23 15:02 Consultations 06/18/23 13:59 ED Decision to Admit Stat 06/18/23 15:40 Consult Podiatry Routine 06/18/23 17:29 Consult Orthopedic Surgery Routine 06/18/23 20:22 Consult Vascular Surgery Routine 06/22/23 10:47 Consult Infectious Diseases Routine 07/01/23 19:36 Consult Vascular Surgery Routine 07/02/23 13:18 Consult Palliative Care Routine 07/04/23 18:33 Consult Psychiatry Routine Procedures Performed Operation Date: 07/11/23 12:00 Actual Procedures p Left Leg Below Knee Amputation(Left) - Duane Sher MD Ordered Studies 06/18/23 11:06 CT foot LT wo con Stat 06/18/23 16:36 US arterial duplex LE LT Stat 06/19/23 08:44 CTA abd aorta runof w con [CT ang AA runof w inc wo ifdon] Routine 06/22/23 07:25 EV angio LE LT Routine US EV guide vascular access Routine 07/11/23 12:36 US - OR guided needle placemen Routine Chest X-Ray 06/18/23 11:06 XR chest 1V portable CLINICAL HISTORY: Sepsis. COMPARISON STUDY: Chest CT July 12, 2022. Chest radiograph August 27, 2022. FINDINGS: There are median sternotomy wires. Lung volumes are normal. Lungs are clear. There is no pneumothorax or pleural effusion. Cardiac size is stable. Mediastinal contours are normal. There is no evidence for pulmonary edema. IMPRESSION: No acute cardiopulmonary findings. No change in appearance of the chest. ACT 112: Negative or not required by law. Electronically signed by: Barber Finnegan M.D. 06/18/2023 12:[address] 06/18/23 11:[address] WITHOUT CONTRAST CLINICAL HISTORY: poss osteo COMPARISON STUDY: Left foot radiographs October 18, 2021. MRI of the left foot November 05, 2021. TECHNIQUE: Axial images of the left foot were obtained without IV contrast. Sagittal and coronal reconstructions were viewed. Automated exposure control was utilized for the study. A dose lowering technique was utilized adhering to the principles of ALARA. FINDINGS: There are stable postoperative findings following distal left tibial and fibular internal fixation. The hardware is intact. There is moderate left ankle osteoarthritis. No acute fractures are present. No foci of bony destruction within the left hindfoot or midfoot are present. There is soft tissue gas within the left fifth toe. In addition, there is soft tissue gas throughout the distal phalanx of the left fifth toe. The gas does not extend more proximally. There is gas along the undersurface of the nail of the left first toe. No gas within the distal phalanx of the left first toe is present. Apparent subtle erosion of the distal tuft of the distal phalanx of the left first toe is noted. This may be chronic. There is moderate vascular calcification. The distal phalanx of the left second toe has been amputated. Expected postoperative findings are present. Tarsometatarsal joints appear intact. IMPRESSION: 1. Soft tissue gas within the left fifth toe and intraosseous gas within the distal phalanx of the left fifth toe highly suggestive of osteomyelitis. This gas could be due to a gas-forming infectious process or related to an open wound. 2. Soft tissue gas within the left first toe. This may be related to the toenail. However, an infectious process cannot be excluded. Equivocal erosion of the distal tuft of the distal phalanx of the left first toe. This is probably chronic however additional focus of acute osteomyelitis cannot be excluded. 3. Stable postoperative findings following distal left tibial and fibular internal fixation. ACT 112: Negative or not required by law. Electronically signed by: Barber Finnegan M.D. 06/18/2023 1:52 PM Foot X-Ray 06/18/23 15:57 XR foot LT min 3V routine CLINICAL HISTORY: foot infection COMPARISON: Left foot radiographs November 07, 2021. Left foot CT performed earlier today. FINDINGS: Distal left tibial and fibular internal fixation is noted. The postoperative appearance is unchanged. Stable postoperative findings following amputation of the distal phalanx of the left se[place] toe. Gas within the distal phalanx of the left fifth toe is noted. There is soft tissue gas. The middle and distal phalanges of the left fifth toe are fused. No acute fractures identified. There is subtle erosion of the distal tuft of the distal phalanx of the left first toe. This appears new since prior radiographs. Subtle cortical irregularity of the distal tuft of the distal phalanx of the left third toe is unchanged. IMPRESSION: 1. Soft tissue gas and intraosseous gas within distal phalanx of left fifth toe suggestive of osteomyelitis. The gas could be due to a gas-forming infectious process or the open wound. 2. Interval subtle erosion of the distal tuft of the distal phalanx of the left first toe. This suggests osteomyelitis. 3. Stable postoperative findings following amputation of the distal phalanx of the left second toe. ACT 112: Negative or not required by law. Electronically signed by: Barber Finnegan M.D. 06/18/2023 4:50 PM Duplex Scan Lower Extremity Artery 06/18/23 16:36 CR Exam(s): US ARTERIAL LEFT LOWER EXTREMITY EXAM: US Duplex Left Lower Extremity Arteries CLINICAL HISTORY: Reason for exam: foot wound. TECHNIQUE: Real-time duplex ultrasound scan of the left lower extremity arteries integrating B-mode two-dimensional vascular structure, Doppler spectral analysis and color flow Doppler imaging. COMPARISON: No relevant prior studies available. FINDINGS: Left common femoral artery: Atherosclerosis. No flow visualized. Left superficial femoral artery: Atherosclerosis. No flow visualized. Left deep femoral artery. Atherosclerosis. Patent. Monophasic waveform. Peak systolic velocity 51 cm/s. Irregular waveforms. Left popliteal artery: Atherosclerosis. Diminished monophasic flow in the proximal segment. No flow in the mid and distal segments. Left calf/foot arteries: Atherosclerosis. No flow visualized in the posterior tibial artery, peroneal artery, or anterior tibial artery. Dorsalis pedis artery obscured by patient movement. Soft tissues: Unremarkable. IMPRESSION: 1. Severe atherosclerotic vascular disease. 2. 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 3. Flow present in the deep femoral artery, monophasic. 4. Majority occlusion of the popliteal artery, with minimal monophasic flow in the proximal segment. 5. Occluded calf arteries. 6. Dorsalis pedis artery not evaluated due to patient motion. 7. Irregular waveforms suggesting underlying cardiac arrhythmia. Communications: Verify Receipt Verify Receipt with Nurse Electronically signed by: Crow Pack M.D. 06/18/23 23:08 PM Aorta w/Runoff CTA 06/19/23 08:44 CT ang AA runof w inc wo ifdon HISTORY: 78 years-old Male gangrene toes left foot COMPARISON: Arterial Doppler 06/18/2023, CT abdomen and pelvis 07/12/2022. TECHNIQUE: CTA abdomen and pelvis with lower extremity runoff was obtained following the intravenous administration of 114 mL Optiray 320. All measurements were obtained according to NASCET criteria. 3-D coronal and sagittal MIPS were obtained. A dose lowering technique was used consistent with the principals of CLARENCE. FINDINGS: CTA: Mild cardiomegaly with extensive coronary artery calcifications. Sternotomy wires are present. Moderate atherosclerosis with patency of the celiac trunk, superior and inferior mesenteric arteries. Irregular atherosclerotic plaque of the left renal artery results in multifocal proximal stenosis measuring up to 50%. The right renal artery is widely patent. RIGHT LOWER EXTREMITY: Patent common, and external iliac arteries. The common and superficial femoral arteries are patent. Mild stenosis of the distal SFA. The popliteal artery is patent. There is high-grade stenosis of the tibioperoneal trunk with occlusion involving the majority of the anterior and posterior tibial arteries. Multifocal high-grade stenoses of the peroneal artery. LEFT LOWER EXTREMITY: Patent common and external iliac arteries. There is complete occlusion at the origin of the superficial femoral artery without reconstitution of flow. Additionally, there is occlusion of the popliteal artery, tibioperoneal trunk, anterior and posterior tibial arteries. There is reconstitution of flow within the distal peroneal artery demonstrating multifocal areas of aucmxnxs-os-qxtc-grade stenoses. Additionally, there is minimal distal reconstitution of flow within the posterior tibial artery at the level of the ankle. CT ABDOMEN/PELVIS: Clear lung bases. No free air. Calcified granulomata of the spleen, [id number] pancreatic atrophy. Unremarkable adrenal glands. Mildly distended gallbladder. Unremarkable liver. Cortical thinning of the kidneys. A 3 mm nonobstructing calculus of the interpolar left kidney. A 5 mm nonobstructing calculus of the inferior pole right kidney. No enhancing renal mass lesion is identified. No ureteral calculi or hydronephrosis. Decompressed bladder with mild wall thickening. Prostatomegaly. No lymphadenopathy. Scrotal wall edema with probable hydroceles. Subcentimeter paraesophageal lymph nodes. Mild distal esophageal wall thickening with adjacent inflammatory stranding. Moderate fecal retention with rectal wall thickening and perirectal stranding. Colonic diverticulosis. Noninflamed appendix. Unremarkable soft tissues. No acute fracture. IMPRESSION: 1. Atherosclerosis with complete occlusion of the left common femoral, superficial femoral, and popliteal arteries with additional left lower leg occlusion. There is reconstitution of flow within the left peroneal and distal posterior tibial arteries as above. 2. High-grade stenosis of the right tibioperoneal trunk with occlusion involving the majority of the right anterior and posterior tibial arteries. 3. Multifocal high-grade stenoses of the right peroneal artery. 4. Patent mesenteric arteries. 5. No acute intra-abdominal or intrapelvic abnormality. 6. Nonobstructing bilateral nephrolithiasis. 7. 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 8. Additional findings as above. ACT 112: Negative or not required by law. The above report was generated using voice recognition software. It may contain grammatical, syntax or spelling errors. Dictated: 06/19/2023 12:41 PM Transcribed: 06/19/2023 12:59 PM Isak [id number] [email or web address] Electronically signed by: Rodríguez Pan M.D. 06/19/2023 1:19 PM 07/12/23 10:49 07/12/23 10:49 Diabetes Follow up Diabetes Follow-up Needed for Newly Diagnosed Diabetes discharged to nursing facility Hospital Course (1) Sepsis: sepsis on admission due to left foot gangrene/osteomyelitis of 1st and 5th toes resolved, s/p amputation of both toes by Dr Price. Intra-op culture from the 1st/5th toe amputations grew group C strep. was treated with ampsulbactam IV Ultimately needed TMA of the left foot - 06/26/23 - also by Dr Price. Unfortunately angiography completed by Dr Sher on 06/22/23 revealed severe PAD of the left leg with no option for bypass. Dr Price re-evaluated the left foot on 07/01/23 and unfortunately the TMA was already necrosing. Dr Sher met with the patient 07/02 to discuss BKA and possibly even AKA and patient initially declined any further surgery. After several days of thinking about options patient now consistently telling the care team he wants to undergo left foot amputation. There has been some question about his capacity for medical decision making but he appears to understand the risks of not doing surgery (recurrent sepsis/gangrene/) and understands the risks/benefits of doing amputation. Formal psychiatry evaluation by Dr Vaz appreciated. She, too, agrees Mr Blanchard retains medical decision making capacity at this time. Underwent L BKA 07/11 - doing well postop 07/13 POD #2 wound check - discussed with vascular surgery, healing as expected "Can continue with dry dressing and change daily until no further drainage occurs. Then wound should be kept dry but open to air. Pt ok for d/c from vascular standpoint. Will see in office in 2-3 weeks for staple removal" 07/13- has increased pain, phantom-limb type and also at staple line/incision -added gabapentin 100 mg tid -increased oral hydromorphone to 4 mg po q4h PRN (2) Osteomyelitis: Status post first and fifth toe amputations on the left foot 06/[address] Price, podiatry Ultimately needed left TMA 06/26 due to nonhealing wounds (1st/5th MTPs) due to significant vasculopathy - surgery also by Dr Price treated with IV unasyn until his amputation was completed - further abx not necessary (3) Duodenal ulcer: 08/2022 - EGD with esophagitis and duodenal ulcers however, following the EGD, he never took acid reduction with PPI he has had abdominal pains for months and weight loss but has not c/o such over the last week cont PPI twice daily and carafate QID try stopping carafate soon if po intake remains good. decrease to daily PPI in 2-4 weeks (4) Controlled type 2 diabetes mellitus with neurologic complication, with long- term current use of insulin: HbA1c 7% Per staff he had been declining insulin earlier in the admission insulin stopped since he was declining such just cont with DM diet BG remain 110-150 (5) Unintentional weight loss of 10% body weight within 6 months: patient told prior attending physician he did NOT want further work-up for his abdominal pains or weight loss (6) Severe protein-calorie malnutrition: 15kg weight loss since late 2021 see discussion above cont remeron - consider increase to 15mg but leave at 7.5mg as per Dr Vaz prior h/o B1 def -- will treat empirically 200mg BID given his malnutrition - change to oral dosing after several more doses weight stable over the last week at about 70 kg drinking about 4 boosts each day which is his preference; does not want solid foods (7) Insomnia: in light of weight loss, poor appetite, insomnia, prior mental health issues (as listed in chart) started remeron on 07/02 - increased to 15 mg on 07/11 tolerating thus far without induction of ho, etc (8) CAD in [place] artery: no ischemic symptoms at this time resume plavix in AM cont lipitor (9) Peripheral arterial occlusive disease: severe as seen on arteriogram on 06/22/[address] Sher unfortunately he was not a candidate for bypass making BKA the best option for healing for his left leg (10) Candidiasis of mouth and esophagus: resolved Plan CODE STATUS: DNR/DNI Appreciate Dr Sher, Dr Price, and Dr Mcdaniels's assistance Of note - patient does have a documented psychiatric history However, he understands cause & effect of his potential decisions - he voices understanding that if he does not pursue additional surgery on the L foot there is a high likelihood of ongoing infection/gangrene, sepsis, and even psych consult completed - Mr Blanchard retains medical decision ability Total Time Total Time Spent Total Time Spent (In Minutes): I personally spent: 40 minutes today on clinical care activities for coordination of discharge including: reviewing chart notes and vital signs reviewing labs reviewing studies discussion with grounds caretaker examining and counseling the patient writing orders documentation Discharge Plan Discharge Items Patient Disposition: Transfer [facility] Reason For Visit: GANGRENE LEFT FOOT, OSTEOMYELITIS Discharge Diagnosis: left foot gangrene and osteomyelitis, peripheral arterial disease, left BKA Condition on Discharge: Fair Activity: Per Instructions section Weightbearing: Left non-weightbearing Non-emergency contact: Primary Care Provider and Surgeon Call non-emergency contact if: you have any medication questions, your symptoms worsen, your wound has increased redness and your wound has increased drainage Follow-up/Referrals: Fox Moran MD [Primary Care Provider] - Duane Sher MD [Physician] - Diet: Carb Consistent or DM2 Diet Comment: Prefers full liquid diet Addtl Attending Provider Instructions: Left BKA 07/11/23 Dr. Sher - schedule follow up with him in 2-3 weeks in office -routine wound care -PT and OT evaluate and treat -follow up with Dr. Sher in office in 2-3 weeks for wound check and staple removal Severe protein calorie malnutrition -continue mirtazapine -provide nutritional supplement (BOOST etc) bid -prefers liquid diet -history of duodenal ulcer 08/2022, abdominal pains resolved with PPI and carafate, he declined further workup Diet controlled diabetes -monitor blood glucose as needed, diabetic diet Pending Studies at Discharge: No Stand-Alone Forms: My [facility] Skilled Items Patient informed of condition?: Yes DNR: Yes Discharge Level of Care: Skilled Communicable Disease: No Discharge Prognosis: Improving Lines: None Urinary Catheter: No Medications and DC Order Prescriptions: New hydromorphone [Dilaudid] 2 mg Tablet 4 mg PO Q6H PRN (Reason: moderate to severe pain) Qty: 30 0RF hydromorphone [Dilaudid] 2 mg Tablet 4 mg PO Q6H PRN (Reason: pain) Qty: 30 0RF bisacodyl 10 mg Suppository 10 mg PA Q12H PRN (Reason: constipation) Qty: 0 0RF mirtazapine 15 mg Tablet 15 mg PO HS Qty: 0 0RF gabapentin 100 mg Capsule 100 mg PO TID Qty: 0 0RF sucralfate 100 mg/mL Suspension 1 g PO ACHS Qty: 0 0RF MAG-AL 200-200 mg/5 mL Suspension 15 ml PO Q4H PRN (Reason: dyspepsia) Qty: 0 0RF pantoprazole 40 mg Tablet,Delayed Release (Dr/Ec) 40 mg PO BID Qty: 0 0RF polyethylene glycol 3350 [Miralax] 17 gram Powder In Packet 17 g PO DAILY Qty: 0 0RF sennosides [Senokot] 8.6 mg Tablet 17.2 mg PO QAM Qty: 0 0RF acetaminophen [Tylenol Extra Strength] 500 mg Tablet 1,000 mg PO TID Qty: 0 0RF thiamine HCl (vitamin B1) 100 mg Tablet 100 mg PO QAM Qty: 0 0RF Continued clopidogrel 75 mg tablet 75 mg PO DAILY Qty: 90 1RF Hold Instructions: Home Medication placed on hold at Doctor's office Rx Instructions: PER PT "HAVE NOT TAKEN ANY MEDS SINCE NOVEMBER 2022". cyanocobalamin (vitamin B-12) [Vitamin B-12] 1,000 mcg tablet 1,000 mcg PO QAM Hold Instructions: Home Medication placed on hold at Doctor's office Rx Instructions: PER PT "HAVE NOT TAKEN ANY MEDS SINCE NOVEMBER 2022". Centrum Silver Men 300-600-300 mcg Tablet 1 tab PO DAILY Hold Instructions: Home Medication placed on hold at Doctor's office Rx Instructions: PER PT "HAVE NOT TAKEN ANY MEDS SINCE NOVEMBER 2022". atorvastatin [Lipitor] 40 mg tablet 40 mg PO QAM Hold Instructions: Home Medication placed on hold at Doctor's office Rx Instructions: PER PT "HAVE NOT TAKEN ANY MEDS SINCE NOVEMBER 2022". Discontinued (DME) pen needle, diabetic [BD Ultra-Fine Mini Pen Needle] 31 gauge x 3/16" needle See Rx Instructions .Route Qty: 400 3RF Hold Instructions: Home Medication placed on hold at Doctor's office Rx Instructions: USE FOUR TIMES DAILY. DX: E11.9 (DME) OneTouch Ultra Test Strip See Rx Instructions .Route Qty: 100 3RF Rx Instructions: testing 4 times daily tamsulosin 0.4 mg capsule 0.4 mg PO DAILY Qty: 90 1RF Hold Instructions: Home Medication placed on hold at Doctor's office Rx Instructions: PER PT "HAVE NOT TAKEN ANY MEDS SINCE NOVEMBER 2022". Super Beta Prostate 1 tab PO QAM Hold Instructions: Home Medication placed on hold at Doctor's office Rx Instructions: PER PT "HAVE NOT TAKEN ANY MEDS SINCE NOVEMBER 2022". pantoprazole 40 mg tablet,delayed release (DR/EC) 40 mg PO DAILY Qty: 30 5RF Hold Instructions: Home Medication placed on hold at Doctor's office Rx Instructions: PER PT "HAVE NOT TAKEN ANY MEDS SINCE NOVEMBER 2022". Lantus Solostar U-100 Insulin 100 unit/mL (3 mL) insulin pen 15 unit subcut QPM Hold Instructions: Home Medication placed on hold at Doctor's office Rx Instructions: PER PT "HAVE NOT TAKEN ANY MEDS SINCE NOVEMBER 2022".as directed insulin lispro [Humalog KwikPen Insulin] 100 unit/mL insulin pen 5 - 7 unit SQ TID Hold Instructions: Home Medication placed on hold at Doctor's office Rx Instructions: PER PT "HAVE NOT TAKEN ANY MEDS SINCE NOVEMBER 2022".or as directed before meals acetaminophen [Tylenol Extra Strength] 500 mg tablet 1,000 mg PO Q8H PRN (Reason: Pain) Rx Instructions: PER PT "HAVE NOT TAKEN ANY MEDS SINCE NOVEMBER 2022". nitroglycerin [Nitrostat] 0.4 mg Tablet, Sublingual 0.4 mg sublingual UD PRN (Reason: Chest Pain) Rx Instructions: PER PT "HAVE NOT TAKEN ANY MEDS SINCE NOVEMBER 2022". Discharge Orders: Discharge Order (Routine); Ordered 07/14/23 Ordered By: Jasmyne Ruiz/Other Patient Handouts: Nutrition for Wound Healing, Diabetes: Meal Planning, Type 2 Diabetes Admission Data Admit Date/Time: 06/18/23 14:58 Attending Provider: Jasmyne Reynolds Admit Provider: Luis E Veloz Primary Care Provider: Fox Moran Other Providers: Tucker,[facility]; [facility],; Duane Sher; Luis E Veloz; Raffy Price; David Boyd; Lara Chiu; Rimma Mcdaniels; Leigh Vaz Coding Level of Care Code 12828 INP/OBS DISCH >30 MIN Diagnoses Sepsis A41.9 Sepsis acute organ dysfunction status: without acute organ dysfunction Sepsis type: sepsis due to unspecified organism Osteomyelitis M86.9 Laterality: left Osteomyelitis location: foot Osteomyelitis type: unspecified type Duodenal ulcer K26.9 Controlled type 2 diabetes mellitus with neurologic complication, with long-term current use of insulin E11.49; Z79.4 Unintentional weight loss of 10% body weight within 6 months R63.4 Severe protein-calorie malnutrition E43 Insomnia G47.00 Insomnia type: unspecified CAD in [place] artery I25.10 Peripheral arterial occlusive disease I77.9 Candidiasis of mouth and esophagus B37.81; B37.0
[2023-07-14] MEDS: MIRTAZAPINE TAB 15 MG TAB PO SCH (21:32)
[2023-07-15] MEDS: HEPARIN SOD 5,000 UNIT/0.5 ML VIAL SQ SCH (06:05)
[2023-07-15] MEDS: ACETAMINOPHEN 500 MG TAB PO SCH (08:14)
[2023-07-15] MEDS: SUCRALFATE 1 GM/10 ML UDC PO SCH (08:15)
[2023-07-15] MEDS: PANTOprazole 40 MG TAB PO SCH (08:15)
[2023-07-15] MEDS: GABAPENTIN 100 MG CAP PO SCH (08:15)
[2023-07-15] MEDS: THIAMINE HCL 100 MG TAB PO SCH (08:16)
[2023-07-15] MEDS: SENNA 8.6 MG TAB PO SCH (08:16)
[2023-07-15] MEDS: ATORVASTATIN 40 MG TAB PO SCH (08:16)
[2023-07-15] MEDS: CEROVITE ADV FORMULA TAB PO SCH (08:17)
[2023-07-15] MEDS: POLYETHYLENE (MIRALAX) 17 GM PACK PO SCH (08:17)
[2023-07-15] MEDS ORDERED: CLOPIDOGREL BISULFATE 75 MG TAB PO SCH (09:00)
[2023-07-15] MEDS: HYDROmorphone HCL 2 MG TAB PO PRN (09:23)
== END 2023-07-15 10:14 | DRG 853 ==
LOC: ED 10:42 → SUATTDRO 14:58 → EDINP 14:58 → 2E 17:30 → 3E 07-05 18:43
DX: E11.52 Type 2 diabetes mellitus with diabetic peripheral angiopathy with gangrene; Z79.4 Long term (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; G47.00 Insomnia, unspecified; A41.9 Sepsis, unspecified organism; F05 Delirium due to known physiological condition; B95.1 Streptococcus, group B, as the cause of diseases classified elsewhere; Z87.891 Personal history of nicotine dependence; M86.9 Osteomyelitis, unspecified; Z66 Do not resuscitate; E43 Unspecified severe protein-calorie malnutrition; Z88.8 Allergy status to other drugs, medicaments and biological substances; Z79.899 Other long term (current) drug therapy; I96 Gangrene, not elsewhere classified; K59.00 Constipation, unspecified; Z88.5 Allergy status to narcotic agent; I25.10 Atherosclerotic heart disease of native coronary artery without angina pectoris; K26.9 Duodenal ulcer, unspecified as acute or chronic, without hemorrhage or perforation; I70.92 Chronic total occlusion of artery of the extremities; B37.0 Candidal stomatitis

== ENCOUNTER 2023-08-06 19:07 | Inpatient (IN) ==
--- NOTE | 2023-08-06 19:37 | Emergency Department Note ---
History of Present Illness General Chief complaint: Fall Stated complaint: SOFIE, BKA OPENED Time Seen by Provider: 08/06/23 19:35 History of Present Illness Maximum Pain Intensity: 10 This is a 78-year-old male that presents to the emergency department via EMS with complaints of "fall, wound dehiscence". The patient is currently residing at [facility]. 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 Patient was doing well postoperatively. He notes that today around 6:15 PM he wanted the lights turned out in his room. He asked his roommate if he would turn the lights out. He states that his roommate would not turn the lights out. Patient then tried to get out of the bed on his own to go turn the lights off. He tried to use the wheelchair to stabilize and then fell to the floor. He notes that he struck the BKA surgical site against the floor. He notes there was a covering on the leg at the time. He denies any other areas of pain. He denies striking the head or loss of consciousness. No headache or neck pain. No chest pain or abdominal pain. No back pain. Home Medications Medication Instructions Recorded Confirmed Type cyanocobalamin (vitamin B-12) 1,000 mcg PO DAILY 08/10/21 08/06/23 History 1,000 mcg tablet (Vitamin B-12) apoehiit-ja-muylr 300 mcg-K 60 1 tab PO DAILY 09/01/21 08/06/23 History mcg-lycop 600 mcg-lutein 300 mcg tablet (Centrum Silver Men) clopidogrel 75 mg tablet 75 mg PO DAILY #90 tabs 12/09/21 08/06/23 Rx atorvastatin 40 mg tablet (Lipitor) 40 mg PO DAILY 04/12/22 08/06/23 History aluminum-magnesium hydroxide 200 15 ml PO Q4H PRN dyspepsia #0 mL 07/13/23 08/06/23 Rx mg-200 mg/5 mL oral suspension (MAG-AL) mirtazapine 15 mg tablet 15 mg PO HS #0 tabs 07/13/23 08/06/23 Rx acetaminophen 325 mg tablet 650 mg PO Q6 PRN pain 1-4 / fever 08/06/23 08/06/23 History gabapentin 300 mg capsule 300 mg PO TID 08/06/23 08/06/23 History hydromorphone 2 mg tablet 4 mg PO Q4 PRN pain 5-8 08/06/23 08/06/23 History (Dilaudid) hydromorphone 2 mg tablet 6 mg PO Q4 PRN pain 9-10 08/06/23 08/06/23 History (Dilaudid) menthol 0.44 %-zinc oxide 20.6 % 1 applic topical QS 08/06/23 08/06/23 History topical ointment (Calmoseptine) pantoprazole 40 mg granules 40 mg PO BID 08/06/23 08/06/23 History delayed-release for susp in packet polyethylene glycol 3350 17 17 g PO DAILY 08/06/23 08/06/23 History gram/dose oral powder promethazine 25 mg/mL injection 25 mg IM Q6H PRN N/V 08/06/23 08/06/23 History solution sennosides 17.2 mg tablet 17.2 mg PO DAILY 08/06/23 08/06/23 History sucralfate 1 gram tablet 1 g PO ACHS 08/06/23 08/06/23 History thiamine HCl (vitamin B1) 100 mg 100 mg PO DAILY 08/06/23 08/06/23 History tablet Allergies Allergy/AdvReac Type Severity Reaction Status Date / Time morphine AdvReac Severe "STOPS MY Verified 08/06/23 21:04 HEART" diazepam AdvReac Intermediate HALLUCINATE Verified 08/06/23 21:04 S hydromorphone [From Dilaudid] AdvReac Intermediate unresponsiv Verified 08/06/23 21:04 eness propoxyphene AdvReac Intermediate DRUG Verified 08/06/23 21:04 INTOLERANCE trazodone AdvReac Intermediate GI UPSET Verified 08/06/23 21:04 Past Med/Surg History Medical History Poor historian GERD (gastroesophageal reflux disease) On anticoagulant therapy Kidney stones hx History of COVID-06 May 2022 at a [facility] institution in [place], [facility]. Peripheral neuropathy Prostate cancer pt did not acknowledge. Sepsis hx Schizoaffective disorder pt denies JUANCARLOS (acute kidney injury) BPH (benign prostatic hyperplasia) Amputated toe of left foot Cellulitis Osteomyelitis hx Diabetic ulcer of toe hx History of diverticulosis Mild cognitive impairment alert and oriented x3 -- "forgetful about his history" Stroke HX X 2-11/2004 AND 09/2019-F/U DR NÚÑEZ Orthostatic dizziness at times Failure of outpatient treatment Venous stasis ulcers of both lower extremities hx in 2019 Venous (peripheral) insufficiency Recurrent falls Parkinsonism per medical record - pt unaware Intermittent explosive disorder Delusional disorder, somatic type not currently -- pt unaware -- pt alert and oriented x3 at this time. Alcohol abuse pt states he quit "a long time ago" Chronic diastolic CHF (congestive heart failure) Benign colonic polyp Dyslipidemia History of tobacco use Nephrolithiasis Raynauds phenomenon Stage III chronic kidney disease Tubular adenoma of colon History of CVA (cerebrovascular accident) hx in 2004 and 2019 --> follows with Dr Núñez. Migraines hx Acute on chronic renal insufficiency pt unsure Osteoarthritis Diabetes mellitus, type 2 Hypertension Hyperlipidemia Myocardial Infarction 2004--follows with Dr. Mejia Surgical History H/O left cataract extraction S/P CABG (coronary artery bypass graft) 4 VESSELS [facility] [place] 2018 S/P sinus surgery History of lumbar discectomy x2 History of carpal tunnel release of both wrists History of open reduction and internal fixation (ORIF) procedure left ankle--hardware in place History of arthroscopy of left knee History of lithotripsy x2 History of colonoscopy History of tonsillectomy and adenoidectomy Status post uvulopalatopharyngoplasty History of right cataract extraction History of heart artery stent (1998) x1 stent History of cardiac cath x4-5, last 05/19/2019 [facility] NO RECENT STENTS Family History Father , age 74 of an [place] Diabetes Prostate cancer Colorectal cancer Myocardial infarction Brother Prostate cancer Uncle Colorectal cancer Father Myocardial infarction Mother Myocardial infarction Stroke Other Dementia No family history of adverse response to anesthesia Denies family history of Ovarian cancer Breast cancer Social History Smoking Status: Former smoker Tobacco Type: Cigarettes Age Quit Using Tobacco: 71; packs per day: 3; Cigarettes Per Day: 3; Second Hand Exposure: Yes (hx); Do You Dip or Chew Tobacco: No (quit "a long time ago"); Hx Alcohol Use: No Hx Substance Use: No Preferred Language: Danish Communication Ability: Effective Communication Ability Comment: Patient with confusion. 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); chemical exposure Feels Safe at Home: Yes Childhood Exposure to Second-Hand Smoke: Yes Diet: regular Dental Care, Regularly: Yes Physical Activity Frequency: Daily Seatbelt Use: always Sunscreen Use: No Assistive Devices: None Review of Systems A total of 10 systems reviewed and were otherwise negative Physical Exam Vital Signs Vital Signs - 24 hr 08/06/23 19:20 08/06/23 19:54 08/06/23 20:23 Temperature 36.7 C Temperature Source Oral Pulse Rate 99 H 98 H Pulse Rate [Apical] 102 H Respiratory Rate 20 17 Blood Pressure 163/72 H Blood Pressure [Right Arm] 125/71 Blood Pressure Mean 102 Blood Pressure Mean [Right Arm] 89 Pulse Oximetry 100 100 Oxygen Delivery Method Room Air Room Air Sepsis Recent Fever Within 48 Hours No Sepsis New/Unexplained Change in Mental Status No Sepsis Action Taken by Nursing No Action Required 08/06/23 20:41 Temperature Temperature Source Pulse Rate Pulse Rate [Apical] Respiratory Rate Blood Pressure Blood Pressure [Right Arm] Blood Pressure Mean Blood Pressure Mean [Right Arm] Pulse Oximetry 99 Oxygen Delivery Method Room Air Sepsis Recent Fever Within 48 Hours Sepsis New/Unexplained Change in Mental Status Sepsis Action Taken by Nursing VITAL SIGNS - Vital signs and nursing notes were reviewed. Stable and afebrile. GENERAL -78-year-old male appearing his stated age who appears to be in pain. Communicates well with provider and answers questions appropriately. SKIN -consent was obtained, prehospital dressing was removed sterilely and there is wound dehiscence noted involving approximate 75% of the wound with maximum separation of the wound edges about 2 cm. There is blood within the wound channel. No hemorrhage. Small ooze of blood from the wound channel noted. HEAD - NC/AT. EYES - PERRL with EOMI bilaterally. Sclera anicteric. EARS - No deformities of external structures noted on gross examination bilaterally. NOSE - Midline and without cyanosis. No epistaxis or purulent drainage noted. MOUTH/OROPHARYNX - Without perioral cyanosis. NECK - FROM. No nuchal rigidity. LUNGS - CTA CARDIAC - RRR EXTREMITIES -skin as above. Left BKA noted. Dressing in place with obvious blood on the dressing on the left. Once the dressing was removed there is evidence of wound dehiscence. There is no bony protrusion. No evidence of foreign body. NEUROLOGIC - Cranial nerves grossly intact. PSYCH -patient alert, oriented and pleasant on exam. Course Administered Medications Mirtazapine (Mirtazapine Tab 15 Mg Tab) 15 mg PO HS NIKOLAI Stop: 09/05/23 22:56 Last Admin: 08/06/23 23:54 Dose: 15 mg Documented By: KAREEM Discontinued Medications Fentanyl Citrate (Fentanyl Citrate Pf 100 Mcg/2 Ml Vial) 50 mcg IV NOW STA Stop: 08/06/23 19:50 Last Admin: 08/06/23 20:06 Dose: 50 mcg Documented By: HANNAH Hydromorphone HCl (Hydromorphone Hcl 2 Mg Tab) 2 mg PO NOW STA Stop: 08/06/23 22:02 Last Admin: 08/06/23 22:30 Dose: 2 mg Documented By: HANNAH Cefazolin Sodium (Ancef 1000mg) 1,000 mg in 7.5 mls @ 2.5 mls/min IV NOW STA Stop: 08/06/23 20:28 Last Admin: 08/06/23 20:36 Dose: 2.5 mls/min Documented By: KAREEM Vancomycin HCl 1,500 mg/ (Sodium Chloride) 530 mls @ 200 mls/hr IV NOW ONE Stop: 08/07/23 00:23 Last Admin: 08/06/23 21:47 Dose: 200 mls/hr Documented By: KAREEM Miscellaneous (Patient's Height &/Or Weight Needed) 1 each N/A Q2H NIKOLAI Stop: 09/05/23 19:19 Last Admin: 08/06/23 21:29 Dose: Not Given Documented By: Admin: 08/06/23 21:29 Dose: Not Given Documented By: KAREEM Medical Decision Making Laboratory Data 08/06/23 19:55 08/06/23 19:55 Lab Results 08/06/23 08/06/23 Range/Units 19:55 20:39 WBC 5.45 (4.8-10.8) K/ul RBC 4.90 (4.70-6.10) M/uL Hgb 15.3 (14.0-18.0) g/dl Hct 45.3 (42.0-52.0) % MCV 92.4 (80.0-100.0) fL MCH 31.2 (25.0-34.0) pg MCHC 33.8 (32.0-36.0) g/dL RDW Std Deviation 45.1 (36.4-46.3) fL RDW Coeff of Gissel 13.3 (11.5-14.5) % Plt Count 219 (130-400) K/uL MPV 10.3 (9.4-12.4) fL Immature Gran % (Auto) 1.8 % Neut % (Auto) 68.9 % Lymph % (Auto) 20.4 % Tyler % (Auto) 6.1 % Eos % (Auto) 2.2 % Baso % (Auto) 0.6 % Neut # (Auto) 3.76 (1.40-6.50) K/uL Lymph # (Auto) 1.11 L (1.20-3.40) K/uL Tyler # (Auto) 0.33 (0.11-0.59) K/uL Eos # (Auto) 0.12 (0.00-0.50) K/uL Baso # (Auto) 0.03 (0.00-0.20) K/uL Immature Gran # (Auto) 0.10 (0.01-0.20) K/uL PT 10.6 (9.0-12.0) Seconds INR 1.0 (0.9-1.1) APTT 25 (21-31) Seconds PTT Ratio 0.9 Sodium 138 (136-145) mmol/L Potassium 4.3 (3.5-5.1) mmol/L Chloride 103 (98-107) mmol/L Carbon Dioxide 20 L (21-32) mmol/L Anion Gap 15 H (3-11) BUN 27 H (6-23) mg/dl Creatinine 1.07 (0.6-1.4) mg/dl Est Cr Clr Drug Dosing Not Reportable Est GFR ( Amer) 77.2 ml/min Est GFR (Non-Af Amer) 66.6 ml/min BUN/Creatinine Ratio 25.2 H (10-20) Glucose 196 H (70-99(Fasting)) mg/dl Calcium 9.9 (8.6-10.3) mg/dl Total Bilirubin 0.4 (0.2-1.0) mg/dl AST 30 (13-39) U/L ALT 41 (7-52) U/L Alkaline Phosphatase 115 H (34-104) U/L Total Protein 7.4 (6.0-8.3) gm/dl Albumin 4.1 (3.4-5.0) gm/dl Globulin 3.3 (2.5-4.0) gm/dl Albumin/Globulin Ratio 1.2 (0.9-2) SARS-CoV-2, RNA, NAAT NEGATIVE (NEGATIVE) MDM Narrative Patient was seen and evaluated as above in room D04. Review was performed of triage nursing notes and vital signs. I did review pertinent previous visits and patient history. After obtaining a thorough history and physical examination the above work up was performed. Patient presents to us today for assessment of wound dehiscence on the left leg status post fall that occurred just prior to arrival. The patient denies any other areas of injury. He notes pain directly at the surgical site where there is dehiscence. Patient denies striking the head or loss of consciousness. No headache or neck pain. No chest pain or abdominal pain. No back pain. Options of care were discussed with the patient. IV access was established. Labs were drawn. I did review the previous analgesics patient received here noting his allergies. Fentanyl seems to be something he has had before without issue. This was ordered. This helped with his pain while I was on doing the dressing to inspect the wound. Wound dehiscence noted and I elected to discuss this with his surgeon. I spoke with Dr. Sher at 8:27 PM on 08/06/2023. After obtaining consent from the patient I did send a picture of the wound to Dr. Sher for review. Plan at this time will be IV antibiotics, admission to the medicine service and further evaluation and management in the hospital. Case discussed with the hospitalist service. IV Ancef was ordered. The left leg wound after obtaining consent from the patient was cleansed with sterile saline, and sterile dressing was applied. Labs reveal no leukocytosis or concerning anemia. Coags normal. No emergent metabolic disturbance but will note hyperglycemia 196, BUN 27, anion gap 15, carbon dioxide 20. GCS: 15 In the evaluation and treatment of this patient the following differential diagnoses were entertained: Fracture, dislocation, wound dehiscence, hemorrhage, among others. Patient's daughter did ask if the patient was able to visit his while here in the hospital. I did talk with our medical case worker to see if they were able to help make this happen as he will be admitted. Impression & Plan Surgical wound dehiscence, Below knee amputation Discharge Plan Visit Data Chief Complaint: Fall Stated Complaint: GLF, BKA OPENED ED Provider: [facility] ED Midlevel Provider: Aurelio Alonso Discharge Problem: Surgical wound dehiscence, Below knee amputation Patient Disposition: Admitted As Inpatient Condition: Good Discharge Instructions Interventions: ED Discharge Assessment Last Done: 08/07/23 00:36
--- NOTE | 2023-08-06 19:48 | Emergency Department Note ---
ED Visit Note I was consulted by the Advanced Practice Provider, Aurelio Alonso PA-C. I performed a substantive portion of the visit. This includes aspects of: History: Patient is a 78-year-old male presenting with bleeding from his recent left leg incision. Patient presents via EMS after he had a ground-level fall landing onto his left BKA. He started bleeding from his previous surgical incision. He is complaining of significant pain to the left stump. He denies striking his head or loss of consciousness. MDM: - Laboratory workup was obtained for admission. - ADOLPH called Dr. Sher with vascular, who plans to see patient in AM. Recommended admission to medicine .
[2023-08-06] MEDS: fentaNYL citrate PF 100 MCG/2 ML VIAL IV STA (20:06)
[2023-08-06 20:12] LABS: Basophils # (auto) 0.03 K/uL (0.00-0.20); Basophils % (auto) 0.6 %; Eosinophils # (auto) 0.12 K/uL (0.00-0.50); Eosinophils % (auto) 2.2 %; Hematocrit (blood only) 45.3 % (42.0-52.0); Hemoglobin 15.3 g/dl (14.0-18.0); Immature Granulocytes % (auto) 1.8 %; Lymphocytes # (auto) 1.11 K/uL (1.20-3.40); Lymphocytes % (auto) 20.4 %; Mean Corpuscular Hemoglobin 31.2 pg (25.0-34.0); Mean Corpuscular Hgb Conc 33.8 g/dL (32.0-36.0); Mean Corpuscular Volume 92.4 fL (80.0-100.0); Mean Platelet Volume 10.3 fL (9.4-12.4); Monocytes # (auto) 0.33 K/uL (0.11-0.59); Monocytes % (auto) 6.1 %; Neutrophils # (auto) 3.76 K/uL (1.40-6.50); Neutrophils % (auto) 68.9 %; Platelet Count 219 K/uL (130-400); RDW Coefficient of Variation 13.3 % (11.5-14.5); RDW Standard Deviation 45.1 fL (36.4-46.3); White Blood Count 5.45 K/ul (4.8-10.8)
[2023-08-06 20:30] LABS: Alanine Aminotransferase 41 U/L (7-52); Albumin Globulin Ratio 1.2 (0.9-2); Albumin Level 4.1 gm/dl (3.4-5.0); Alkaline Phosphatase 115 U/L (34-104); Anion Gap 15 (3-11); Aspartate Aminotransferase 30 U/L (13-39); BUN Creatinine Ratio 25.2 (10-20); Bilirubin,Total 0.4 mg/dl (0.2-1.0); Blood Urea Nitrogen 27 mg/dl (6-23); Calcium 9.9 mg/dl (8.6-10.3); Carbon Dioxide 20 mmol/L (21-32); Chloride 103 mmol/L (98-107); Est GFR (African American) 77.2 ml/min; Est GFR (Non-African American) 66.6 ml/min; Globulin 3.3 gm/dl (2.5-4.0); Glucose 196 mg/dl (70-99(Fasting)); Potassium 4.3 mmol/L (3.5-5.1); Sodium 138 mmol/L (136-145); Total Protein 7.4 gm/dl (6.0-8.3)
[2023-08-06] MEDS: ceFAZolin 1000MG 1,000 MG/7.5 ML SYR IV STA (20:36)
[2023-08-06 20:43] LABS: Partial Thromboplastin Ratio 0.9; Partial Thromboplastin Time 25 Seconds (21-31); Prothrombin Time 10.6 Seconds (9.0-12.0)
--- NOTE | 2023-08-06 20:54 | History & Physical Report ---
Date of Service August 06, 2023 Assessment & Plan (1) S/P BKA (below knee amputation): (2) Left leg pain: (3) Peripheral arterial occlusive disease: (4) Diabetic neuropathy: (5) Esophagitis: (6) Controlled type 2 diabetes mellitus with neurologic complication, with long- term current use of insulin: Plan Open wound s/p BKA Mechanical fall on prev close wound Admit to Telemetry Hgb: 15.3 Vascular surgery consulted: antibiotics and NPO tomorrow midnight for possible OR to close of wound Can have Diet now Hold Plavix Ancef once on ER Will broad antibiotic to Vancomycin and Cefepime Received Fentanyl in ER Dilaudid 2 mg PO order now and prn (Listed as an allergy but pt received it on prev admission without side effects. Discharge with Dilaudid 2 mg prn as well) Dilaudid 0.2 mg IV Q4 hr prn CBC am DM 2 with neurologic complications HbA1C: 7 Prev on Insulin but stopped about a year ago Prev admission pt has been declining Insulin Insulin sliding scale ordered CMP am PDA On plavix will hold it for now due to open wound Esophagitis 08/2022 - EGD with esophagitis and duodenal ulcers however, following the EGD, he never took acid reduction with PPI he has had abdominal pains for months and weight loss but has not follow up cont PPI twice daily and carafate Depression Continue Mirtazapine HDL Continue atorvastatin Code: DNR/DNI DVT: hold for now, SCDs Dispo: Telemetry History of Present Illness Primary Care Provider: Fox Moran MD 78 y/o male with PMH of PDA, DM2 with neuropathy, s/p BKA, GERD here after a fall. Patient had a BKA with Dr. Gómez on (07/11/23) due to osteomyelitis. Today he was trying to stand up by his own to turn off the lights when he lost balance and fall over the wound. The wound opened and he stared to bleed from it. Patient denied any dizziness, LOC, hitting his head, tunnel vision or any other symptoms. He refers profound bleeding form the open wound. At the moment of evaluation wound was pack with clean bandages, was prev clean by the ED physician. No active bleeding at the moment of evaluation. He does states some dizziness now and pain 10/10. Tachypnea was noted, he attributed to the pain. V Dr. Sher was contacted by the ER provider. Plan for admission and prob OR the day after tomorrow to close the wound. ED course: -Fentanyl 50 mcg once for pain - Ancef 1,000 mg once Allergies Allergy/AdvReac Type Severity Reaction Status Date / Time morphine AdvReac Severe "STOPS MY Verified 08/06/23 21:04 HEART" diazepam AdvReac Intermediate HALLUCINATE Verified 08/06/23 21:04 S hydromorphone [From Dilaudid] AdvReac Intermediate unresponsiv Verified 08/06/23 21:04 eness propoxyphene AdvReac Intermediate DRUG Verified 08/06/23 21:04 INTOLERANCE trazodone AdvReac Intermediate GI UPSET Verified 08/06/23 21:04 Home Medications Medication Instructions Recorded Confirmed Type cyanocobalamin (vitamin B-12) 1,000 mcg PO DAILY 08/10/21 08/06/23 History 1,000 mcg tablet (Vitamin B-12) [id number] 300 mcg-K 60 1 tab PO DAILY 09/01/21 08/06/23 History mcg-lycop 600 mcg-lutein 300 mcg tablet (Centrum Silver Men) clopidogrel 75 mg tablet 75 mg PO DAILY #90 tabs 12/09/21 08/06/23 Rx atorvastatin 40 mg tablet (Lipitor) 40 mg PO DAILY 04/12/22 08/06/23 History aluminum-magnesium hydroxide 200 15 ml PO Q4H PRN dyspepsia #0 mL 07/13/23 08/06/23 Rx mg-200 mg/5 mL oral suspension (MAG-AL) mirtazapine 15 mg tablet 15 mg PO HS #0 tabs 07/13/23 08/06/23 Rx acetaminophen 325 mg tablet 650 mg PO Q6 PRN pain 1-4 / fever 08/06/23 08/06/23 History gabapentin 300 mg capsule 300 mg PO TID 08/06/23 08/06/23 History hydromorphone 2 mg tablet 4 mg PO Q4 PRN pain 5-8 08/06/23 08/06/23 History (Dilaudid) hydromorphone 2 mg tablet 6 mg PO Q4 PRN pain 9-10 08/06/23 08/06/23 History (Dilaudid) menthol 0.44 %-zinc oxide 20.6 % 1 applic topical QS 08/06/23 08/06/23 History topical ointment (Calmoseptine) pantoprazole 40 mg granules 40 mg PO BID 08/06/23 08/06/23 History delayed-release for susp in packet polyethylene glycol 3350 17 17 g PO DAILY 08/06/23 08/06/23 History gram/dose oral powder promethazine 25 mg/mL injection 25 mg IM Q6H PRN N/V 08/06/23 08/06/23 History solution sennosides 17.2 mg tablet 17.2 mg PO DAILY 08/06/23 08/06/23 History sucralfate 1 gram tablet 1 g PO ACHS 08/06/23 08/06/23 History thiamine HCl (vitamin B1) 100 mg 100 mg PO DAILY 08/06/23 08/06/23 History tablet Past Med/Surg History Medical History Poor historian GERD (gastroesophageal reflux disease) On anticoagulant therapy Kidney stones hx History of COVID-06 May 2022 at a [facility] [place], [facility]. Peripheral neuropathy Prostate cancer pt did not acknowledge. Sepsis hx Schizoaffective disorder pt denies JUANCARLOS (acute kidney injury) BPH (benign prostatic hyperplasia) Amputated toe of left foot Cellulitis Osteomyelitis hx Diabetic ulcer of toe hx History of diverticulosis Mild cognitive impairment alert and oriented x3 -- "forgetful about his history" Stroke HX X 2-11/2004 AND 09/2019-F/U DR NÚÑEZ Orthostatic dizziness at times Failure of outpatient treatment Venous stasis ulcers of both lower extremities hx in 2019 Venous (peripheral) insufficiency Recurrent falls Parkinsonism per medical record - pt unaware Intermittent explosive disorder Delusional disorder, somatic type not currently -- pt unaware -- pt alert and oriented x3 at this time. Alcohol abuse pt states he quit "a long time ago" Chronic diastolic CHF (congestive heart failure) Benign colonic polyp Dyslipidemia History of tobacco use Nephrolithiasis Raynauds phenomenon Stage III chronic kidney disease Tubular adenoma of colon History of CVA (cerebrovascular accident) hx in 2004 and 2019 --> follows with Dr Núñez. Migraines hx Acute on chronic renal insufficiency pt unsure Osteoarthritis Diabetes mellitus, type 2 Hypertension Hyperlipidemia Myocardial Infarction 2004--follows with Dr. Mejia Surgical History H/O left cataract extraction S/P CABG (coronary artery bypass graft) 4 VESSELS [facility] 2019 S/P sinus surgery History of lumbar discectomy x2 History of carpal tunnel release of both wrists History of open reduction and internal fixation (ORIF) procedure left ankle--hardware in place History of arthroscopy of left knee History of lithotripsy x2 History of colonoscopy History of tonsillectomy and adenoidectomy Status post uvulopalatopharyngoplasty History of right cataract extraction History of heart artery stent (1998) x1 stent History of cardiac cath x4-5, last 05/19/2019 [facility] NO RECENT STENTS Family History Father , age 74 of an [place] Diabetes Prostate cancer Colorectal cancer Myocardial infarction Brother Prostate cancer Uncle Colorectal cancer Father Myocardial infarction Mother Myocardial infarction Stroke Other Dementia No family history of adverse response to anesthesia Denies family history of Ovarian cancer Breast cancer Social History Smoking Status: Former smoker Tobacco Type: Cigarettes Age Quit Using Tobacco: 71; packs per day: 3; Cigarettes Per Day: 3; Second Hand Exposure: Yes (hx); Do You Dip or Chew Tobacco: No (quit "a long time ago"); Hx Alcohol Use: No Hx Substance Use: No Preferred Language: Chilean Communication Ability: Effective Communication Ability Comment: Patient with confusion. 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); chemical exposure Feels Safe at Home: Yes Safety Concerns: Feels Safe At This Time Childhood Exposure to Second-Hand Smoke: Yes Diet: regular Dental Care, Regularly: Yes Physical Activity Frequency: Daily Seatbelt Use: always Sunscreen Use: No Assistive Devices: Wheelchair Review of Systems Review of Systems: as per HPI Physical Exam Constitutional: WD/WN, vitals as above Respiratory: normal respiratory effort, lungs clear to auscultation Cardiovascular: RRR, no murmur, no edema Gastrointestinal (Abdomen): normal bowel sounds, soft, nontender, no hepatosplenomegaly Skin: Left open wound, pack with clean bandages, no active bleeding now Results & Data Results & Data Vital Signs (Past 12 Hours) Vital Signs Temp Pulse Resp BP Pulse Ox O2 Del Method 08/06/23 20:41 99 Room Air 08/06/23 19:54 98 H 08/06/23 19:20 36.7 C 99 H 20 163/72 H 100 Room Air Supervising Physician Co-Signing Physician Notes Attending addendum: I have physically seen this patient, have supervised the medical residents activities, and agree with the H&P unless as otherwise noted. Assessment and Plan: Wound dehiscence- Status post ground-level fall onto left BKA stump Vascular surgery has been consulted, and will see patient in a.m. Hold Plavix Given Ancef in the ED Place on vancomycin IV and cefepime IV due to fpc status Pain medications as noted CBC with differential, renal function panel and magnesium level in a.m. Diabetes mellitus- Place on Accu-Cheks with NovoLog SSI Most recent hemoglobin A1c was 7 PDA- Temporarily hold Plavix in anticipation of surgery remaining orders and notations as noted Resident Activity Tracking Resident Involvement: Resident Care Provided Care Provided: Adult Hospital Medicine
[2023-08-06] MEDS ORDERED: VANCOMYCIN CONSULT ACTIVE PRN ×2 (21:22→22:57)
[2023-08-06] MEDS: Patient's HEIGHT &/or WEIGHT Needed SCH (21:29)
[2023-08-06] MEDS: VANCOMYCIN HCL 1,500 MG in SODIUM CHLORIDE 0.9% 500 ML IV ONE (21:47)
[2023-08-06] MEDS: HYDROmorphone HCL 2 MG TAB PO STA (22:30)
[2023-08-06] MEDS ORDERED: GLUCOSE 10 TAB/TUBE PO PRN (22:57)
[2023-08-06] MEDS ORDERED: ACETAMINOPHEN 325 MG TAB PO PRN (22:57)
[2023-08-06] MEDS ORDERED: DEXTROSE 50% 50 ML SYRINGE IV PRN (22:57)
[2023-08-06] MEDS ORDERED: ALUMINUM/MAGNESIUM SUSP 30 ML UDC PO PRN (22:57)
[2023-08-06] MEDS ORDERED: GLUCAGON FOR INJ 1 MG VIAL SQ PRN (22:57)
[2023-08-06] MEDS ORDERED: PROMETHAZINE HCL INJ 25 MG/ML 1 ML VIAL IM PRN (22:57)
[2023-08-06] MEDS ORDERED: CARBOHYDRATES FOR HYPOGLYCEMIA PO PRN (22:57)
[2023-08-06] MEDS ORDERED: GLUCOSE 40% GEL 15 GM TUBE PO PRN (22:57)
[2023-08-06] MEDS ORDERED: POLYETHYLENE (MIRALAX) 17 GM PACK PO PRN (22:57)
[2023-08-06] MEDS: MIRTAZAPINE TAB 15 MG TAB PO SCH (23:54)
[2023-08-07] MEDS: CEFEPIME 2,000 MG in SYRINGE 0 ML IV SCH (01:04)
[2023-08-07] MEDS: HYDROmorphone INJ 0.5 MG/0.5 ML SYR IV PRN (01:20)
[2023-08-07] MEDS: MELATONIN 3 MG TAB PO PRN (01:20)
[2023-08-07] MEDS: LACTATED RINGER'S 1,000 ML IV SCH (01:20)
[2023-08-07] MEDS: HYDROmorphone HCL 2 MG TAB PO PRN (03:53)
--- NOTE | 2023-08-07 05:29 | Billing Data ---
Date of Service August 07, 2023 Coding Level of Care Code 35453 INT INP/OBS CARE
[2023-08-07 06:44] LABS: Basophils # (auto) 0.03 K/uL (0.00-0.20); Basophils % (auto) 0.4 %; Eosinophils # (auto) 0.21 K/uL (0.00-0.50); Eosinophils % (auto) 2.7 %; Hematocrit (blood only) 34.9 % (42.0-52.0); Hemoglobin 11.6 g/dl (14.0-18.0); Immature Granulocytes # (auto) 0.11 K/uL (0.01-0.20); Immature Granulocytes % (auto) 1.4 %; Lymphocytes # (auto) 1.64 K/uL (1.20-3.40); Mean Corpuscular Hemoglobin 30.9 pg (25.0-34.0); Mean Corpuscular Hgb Conc 33.2 g/dL (32.0-36.0); Mean Corpuscular Volume 92.8 fL (80.0-100.0); Mean Platelet Volume 10.5 fL (9.4-12.4); Monocytes # (auto) 0.51 K/uL (0.11-0.59); Monocytes % (auto) 6.5 %; Neutrophils # (auto) 5.32 K/uL (1.40-6.50); Platelet Count 181 K/uL (130-400); RDW Coefficient of Variation 13.6 % (11.5-14.5); RDW Standard Deviation 45.5 fL (36.4-46.3); Red Blood Count 3.76 M/uL (4.70-6.10); White Blood Count 7.82 K/ul (4.8-10.8)
[2023-08-07 06:48] LABS: Albumin Globulin Ratio 1.5 (0.9-2); Albumin Level 3.2 gm/dl (3.4-5.0); BUN Creatinine Ratio 28.6 (10-20); Bilirubin,Total 0.3 mg/dl (0.2-1.0); Calcium 8.5 mg/dl (8.6-10.3); Est GFR (African American) 93.9 ml/min; Globulin 2.2 gm/dl (2.5-4.0); Potassium 4.1 mmol/L (3.5-5.1); Total Protein 5.4 gm/dl (6.0-8.3)
--- OUTSIDE RECORDS SUMMARY | 2023-08-07 08:07 | External Medical Summary | Continuity of Care Document ---
Author Name Unknown Organization [facility] [address] [facility] Address [address] [place], [place] [id number] Care Team Providers Care Med Aide Name Role Phone Fox Moran Primary Care Physician [phone] [id number] Date(s): 08/02/23 - 08/02/23 [facility] [address] [place] [address] [phone] Encounter Diagnosis S/P below knee amputation(Discharge Diagnosis) - 08/02/23 Discharge Disposition: Home or Self Care Attending Physician: JEFF Caldwell Lynn Referring Physician: MD Moran Jeffrey W Allergies, Adverse Reactions, Alerts Substance Reaction Severity Status morphine Cardiac arrest Severe Active Valium Delirium Moderate Active traZODone Hallucinations Moderate Active Dilantin Cardiac arrest Severe Active Darvocet A500 Hallucinations Moderate Active Assessment and Plan Extracted from: Title:Clinical Document Author:JEFF Caldwell Lynn Date:08/02/23 [facility] OUTPATIENT NOTE Name: EMANUEL BLANCHARD Patient Number: [id number] : 1945 Date of Service: 08/02/2023 Chief Complaint: _Follow-up after left BKA HPI: _Mr. Blanchard is an elderly male presents to Dr. Sher's vascular surgery clinic today for a 3-week follow-up visit after undergoing a left lower extremity below-knee amputation due to nonhealing wounds and gangrene of the left foot. Patient admits some considerable discomfort in the site, but it is not as bad as it was when in the hospital. He denies significant drainage or swelling, and denies any fevers. Current Home Meds: (Last Updated 11/15 14:07) atorvastatin (atorvastatin 80 mg oral tablet) 80 mg PO Daily atorvastatin (Lipitor 40 mg oral tablet) clopidogrel (Plavix 75 mg oral tablet) cyanocobalamin (Vitamin B12) furosemide (Lasix 20 mg oral tablet) 20 mg PO bid insulin lispro (HumaLOG) 15 unit subQ ac insulin lispro subQ ac and hs metoprolol (metoprolol tartrate 50 mg oral tablet) 75 mg PO bid multivitamin with minerals (Centrum) pantoprazole (Protonix) potassium chloride (potassium chloride 20 mEq oral tablet, extended release) 20 mEq PO Daily sulfamethoxazole-trimethoprim (sulfamethoxazole-trimethoprim 800 mg-160 mg oral tablet) traMADol (traMADol 50 mg oral tablet) 50 mg PO q6h PRN: pain - moderate Allergies and Sensitivities: Dilantin(Cardiac arrest) Darvocet A500(Hallucinations) Valium(Delirium) traZODone(Hallucinations) morphine(Cardiac arrest) Past Medical History: Problems: S/P below knee amputation Cellulitis of leg Left wrist pain S/P amputation of lesser toe Poisoning by chemical Migraine Nephrolithiasis Chronic GERD Chronic kidney disease Hyperlipidemia Hypertension Myocardial infarct Coronary artery disease Insulin dependent diabetes mellitus OBJECTIVE Vitals: Last Updated 08/02/23 13:31 Date Temp BP Location Pulse RR SpO2 Pain 08/02/23 0 08/02/23 134/52 Right Arm 43 98 11/15/21 0 Vital Signs are the last 3 documented. No Orthostatic Data Available Height and Weight: Last Updated 07/10/19 12:45 Date BMI Wt(kg) Wt(lb) Method Ht(cm) (ft-in) Method 07/10/19 32.88 96.7 213 Standing Scale 171.5 5-7 Standing 05/31/19 30.44 93.5 206 Standing Scale 175.26 5-9 Patient stated 05/29/19 91.8 202 Standing Scale Heights and Weights are the last 3 documented. Physical Exam Constitutional: In general patient is a thin healthy-appearing well-nourished well-developed elderly male in no distress. He is alert and oriented without any focal deficits. He is in a wheelchair currently. His left leg below-knee amputation site is clean dry and intact with kamron. There is no erythema ecchymosis or discharge. There is mild tenderness. These were removed today without difficulty or wound dehiscence. Steri-Strips were placed over the area. ASSESSMENT: _ PLAN: _ 1 ) _status post left leg BKA Patient is overall doing well since his recent procedure. The wound is healed well. We would have him return to the office in another 6 weeks or so for reevaluation. He is advised to call with any questions or concerns if they should occur prior to that time. He is agreeable to this plan. Thank you for letting us participate in the care of this patient. Medications Centrum Start: 08/16/21 13:52:00 EST, 1 tab, PO, Daily Start Date: 08/16/21 Status: Ordered Dilaudid 2 mg oral tablet Start: 08/02/23 14:37:00 EST, See Instructions, Refills: 0, 2 tabs po q 4 hrs as needed for pain level 5-8, 3 tabs po q4 hrs for pain level 9-10 Start Date: 08/02/23 Status: Ordered Dulcolax Laxative (vegetable base) 10 mg rectal suppository Start: 08/02/23 14:41:00 EST, 1 supp, WA, ONCE, PRN: as needed for constipation Start Date: 08/02/23 Status: Ordered gabapentin 300 mg oral capsule Start: 08/02/23 14:39:00 EST, 1 cap, PO, tid Start Date: 08/02/23 Status: Ordered Lipitor 40 mg oral tablet Start: 08/16/21 13:52:00 EST, 1 tab, PO, Daily Start Date: 08/16/21 Status: Ordered Mag-al Plus 200 mg-200 mg-20 mg/5 mL oral suspension Start: 08/02/23 14:39:00 EST Start Date: 08/02/23 Status: Ordered mirtazapine 15 mg oral tablet Start: 08/02/23 14:40:00 EST, 1 tab, PO, qhs Start Date: 08/02/23 Status: Ordered Plavix 75 mg oral tablet Start: 08/16/21 13:52:00 EST, 1 tab, PO, Daily Start Date: 08/16/21 Status: Ordered polyethylene glycol 3350 oral powder for reconstitution Start: 08/02/23 14:40:00 EST, 17 g =, PO, Daily Start Date: 08/02/23 Status: Ordered Protonix Start: 08/16/21 13:52:00 EST, 40 mg =, PO, bid Start Date: 08/16/21 Status: Ordered senna (sennosides) 8.6 mg oral tablet Start: 08/02/23 14:41:00 EST, 1 tab, PO, Daily, PRN: as needed for constipation Start Date: 08/02/23 Status: Ordered sucralfate 1 g oral tablet Start: 08/02/23 14:41:00 EST, 1 tab, PO, ac and hs Start Date: 08/02/23 Status: Ordered thiamine 100 mg oral tablet Start: 08/02/23 14:41:00 EST, 1 tab, PO, Daily Start Date: 08/02/23 Status: Ordered Vitamin B12 Start: 08/16/21 13:52:00 EST, 1,000 mcg =, PO, Daily Start Date: 08/16/21 Status: Ordered Mental Status 08/02/23 Barriers to Learning one year None evide nt Mandatory Health Literacy Documentation Yes Health Literacy Communication Barriers N ever Primary Language Irish Problem List Condition Confirmation Course Effective Dates Status H ealth Status Informant Cellulitis of leg Confirmed Active Chronic kidney disease Confirmed Active Coronary artery disease Confirmed Active Insulin dependent diabetes mellitus Confirmed Active Chronic GERD Confirmed Active S/P below knee amputation Confirmed Active S/P amputation of lesser toe Confirmed Active Hyperlipidemia Confirmed Active Hypertension Confirmed Active Nephrolithiasis Confirmed Active Migraine Confirmed Active Myocardial infarct Confirmed Active Left wrist pain Confirmed Active Poisoning by chemical Confirmed Active Diagnosis Diagnosis Type Effective Dates Health Status Clinical Service Informant S/P below knee amputation Discharge Diagnosis 08/02/23 Procedures Procedure Date Related Diagnosis Body Site Status LLE BKA - Below knee amputation 07/11/23 Completed Vital Signs Most recent to oldest [Reference Range]: 1 Heart Rate 43 bpm (08/02/23 1:24 PM) Blood Pressure 134/52mmHg (08/02/23 1:24 PM) BP Location # 1 Right Arm (08/02/23 1:24 PM) Social History Social History Type Response Smoking Status Former Smoker, quit within 31 days - 1 yr Sex Male [facility] Outpt Note * JEFF Caldwell Lynn: PERFORM Event Display: [facility] Outpt Note Authored Date: [id number] [facility] OUTPATIENT NOTE Name: EMANUEL BLANCHARD Patient Number: [id number] : 1945 Date of Service: 08/02/2023 Chief Complaint: _Follow-up after left BKA HPI: _Mr. Blanchard is an elderly male presents to Dr. Sher's vascular surgery clinic today for a 3-week follow-up visit after undergoing a left lower extremity below-knee amputation due to nonhealing wounds and gangrene of the left foot. Patient admits some considerable discomfort in the site, butit is not as bad as it was when in the hospital. He denies significant drainage or swelling, and denies any fevers. Current Home Meds: (Last Updated 11/15 14:07) atorvastatin (atorvastatin 80 mg oral tablet) 80 mg PO Daily atorvastatin (Lipitor 40 mg oral tablet) clopidogrel (Plavix 75 mg oral tablet) cyanocobalamin (Vitamin B12) furosemide (Lasix 20 mg oral tablet) 20 mg PO bid insulin lispro (HumaLOG) 15 unit subQ ac insulin lispro subQ ac and hs metoprolol (metoprolol tartrate 50 mg oral tablet) 75 mg PO bid multivitamin with minerals (Centrum) pantoprazole (Protonix) potassium chloride (potassium chloride 20 mEq oral tablet, extended release) 20 mEq PO Daily sulfamethoxazole-trimethoprim (sulfamethoxazole-trimethoprim 800 mg-160 mg oral tablet) traMADol (traMADol 50 mg oral tablet) 50 mg PO q6h PRN: pain - moderate Allergies and Sensitivities: Dilantin(Cardiac arrest) Darvocet A500(Hallucinations) Valium(Delirium) traZODone(Hallucinations) morphine(Cardiac arrest) Past Medical History: Problems: S/P below knee amputation Cellulitis of leg Left wrist pain S/P amputation of lesser toe Poisoning by chemical Migraine Nephrolithiasis Chronic GERD Chronic kidney disease Hyperlipidemia Hypertension Myocardial infarct Coronary artery disease Insulin dependent diabetes mellitus OBJECTIVE Vitals: Last Updated 08/02/23 13:31 Date Temp BP Location Pulse RR SpO2 Pain 08/02/23 0 08/02/23 134/52 Right Arm 43 98 11/15/21 0 Vital Signs are the last 3 documented. No Orthostatic Data Available Height and Weight: Last Updated 07/10/19 12:45 Date BMI Wt(kg) Wt(lb) Method Ht(cm) (ft-in) Method 07/10/19 32.88 96.7 213 Standing Scale 171.5 5-7 Standing 05/31/19 30.44 93.5 206 Standing Scale 175.26 5-9 Patient stated 05/29/19 91.8 202 Standing Scale Heights and Weights are the last 3 documented. Physical Exam Constitutional: In general patient is a thin healthy-appearing well-nourished well-developed elderly male in no distress. He is alert and oriented without any focal deficits. He is in a wheelchair currently. His left leg below-knee amputation site is clean dry and intact with kamron. There is no erythema ecchymosis or discharge. There is mild tenderness. These were removed today without difficulty or wound dehiscence. Steri-Strips were placed over the area. ASSESSMENT: _ PLAN: _ 1 ) _status post left leg BKA Patient is overall doing well since his recent procedure. The wound is healed well. We would have him return to the office in another 6 weeks or so for reevaluation. He is advised to call with any questions or concerns if they should occur prior to that time. He is agreeable to this plan. Thank you for letting us participate in the care of this patient. Electronic Signature on File CC: Fox Moran MD [facility] [address] [place] [id number] * Electronically Reviewed/Signed by: Carmen Caldwell PA-C Author Signature Dt/Tm:08/02/2023 01:57 PM [facility] [place] [place] [address] LM Patient Care team information Care Team Personnel Name: MD Moran Jeffrey W Position: Referring DIRECT Member Role: Primary Care Provider Address: Address: [facility] [address] [place] [id number] [place] Name: Harinder Leon Jason A Position: Pharmacist MA Member Role: Pharmacy - Lifetime Address: Address: [facility] [address] [place] [address] [place] Care Team Related Persons Name: CLAUDIA BLANCHARD Address: home [address] [place] [phone]
[2023-08-07] MEDS: PANTOprazole 40 MG TAB PO SCH (08:28)
[2023-08-07] MEDS: GABAPENTIN 300 MG CAP PO SCH (08:28)
[2023-08-07] MEDS: SUCRALFATE 1 GM TAB PO SCH (08:28)
[2023-08-07] MEDS: CYANOCOBALAMIN (B-12) 500 MCG TABLET PO SCH (08:28)
[2023-08-07] MEDS: ATORVASTATIN 40 MG TAB PO SCH (08:28)
[2023-08-07] MEDS: CEROVITE ADV FORMULA TAB PO SCH (08:28)
[2023-08-07] MEDS: THIAMINE HCL 100 MG TAB PO SCH (08:28)
[2023-08-07] MEDS: VANCOMYCIN HCL 750 MG in SODIUM CHLORIDE 0.9% 250 ML IV SCH (08:31)
[2023-08-07] MEDS: INSULIN ASPART PER UNIT CHARGE SC SCH (08:36)
[2023-08-07] MEDS ORDERED: VANCOMYCIN HCL 1,000 MG in SODIUM CHLORIDE 0.9% 500 ML IV SCH (09:00)
--- NOTE | 2023-08-07 11:06 | Pharmacy Report ---
Pharmacy PK ABX Note - Date of Service August 07, 2023 - Assessment and Plan Assessment 78 year old M receiving Vancomycin and Cefepime for treatment of wound dehiscence. * Day #1 of antimicrobial therapy. * PMHx significant for L BKA on 07/11/23. Cultures from that admission grew Group C Strep which was sensitive to penicillin, ampicillin, ceftriaxone and vanc. * Labs/Vitals: Afebrile. SCr 0.91 mg/dL. WBCs 7.8k. MRSA nasal swab negative * Vanc and cefepime both ordered empirically. Plan Vancomycin * Loading dose: 1500 mg IV x 1 * Maintenance dose: 750 mg IV every 12 hours * Regimen is predicted to achieve target AUC/GAUDENCIO of 400-600 mg/L.hr * Level will only be ordered should therapy extend beyond 48 hours Cefepime * 2000 mg IV every 8 hours - appropriate Pharmacy will continue to follow and will adjust dose/frequency as necessary. Thank you. Pharmacy has transitioned to AUC monitoring for vancomycin. AUC/GAUDENCIO is the preferred PK/PD target and is associated with decreased risk of nephrotoxicity compared to traditional trough targets.
[2023-08-07] MEDS: ACETAMINOPHEN 325 MG TAB PO PRN (12:02)
--- NOTE | 2023-08-07 12:45 | Consultation ---
Date of Consultation August 07, 2023 Assessment & Plan (1) Surgical wound dehiscence: Pt with open LLE BKA wound after falling at rehab. Pt discussed with Dr Sher, recommends pt undergo BKA washout, possible debridement, and wound vac placement in OR on SUNDAY. Pt agreeable. History of Present Illness Reason for Consultation: open surgical wound Attending Physician: Nehemiah Kelsey MD History of Present Illness 78 yo m with hx of DMII, CAD, BPH, HTN, neuropathy, hyperlipidemia, prostate ca, schizoaffective disorder, admitted after his LLE BKA surgical wound opened after a fall at his rehab center. Pt known to Dr Sher for LLE BKA performed on 07/11/23 d/t osteomyelitis and gangrene of LLE. Pt was seen in office last week for staple removal, wound appeared to be healing very well with no sign of infection. Pt states he forgot he no longer had his LLE and attempted to stand from his wheelchair and fell last evening. His LLE stump contused and opened up. Pt admits pain in LLE BKA site and bleeding. Denies BAILEY, fever, chest pain, SOB, abd pain, N/V, rest pain, claudication, other complaints. Allergies Allergy/AdvReac Type Severity Reaction Status Date / Time morphine AdvReac Severe "STOPS MY Verified 08/06/23 21:04 HEART" diazepam AdvReac Intermediate HALLUCINATE Verified 08/06/23 21:04 S hydromorphone [From Dilaudid] AdvReac Intermediate unresponsiv Verified 08/06/23 21:04 eness propoxyphene AdvReac Intermediate DRUG Verified 08/06/23 21:04 INTOLERANCE trazodone AdvReac Intermediate GI UPSET Verified 08/06/23 21:04 Home Medications Medication Instructions Recorded Confirmed Type cyanocobalamin (vitamin B-12) 1,000 mcg PO DAILY 08/10/21 08/06/23 History 1,000 mcg tablet (Vitamin B-12) lmnylgao-pj-iracv 300 mcg-K 60 1 tab PO DAILY 09/01/21 08/06/23 History mcg-lycop 600 mcg-lutein 300 mcg tablet (Centrum Silver Men) clopidogrel 75 mg tablet 75 mg PO DAILY #90 tabs 12/09/21 08/06/23 Rx atorvastatin 40 mg tablet (Lipitor) 40 mg PO DAILY 10/26/22 02/19/24 History aluminum-magnesium hydroxide 200 15 ml PO Q4H PRN dyspepsia #0 mL 07/13/23 08/06/23 Rx mg-200 mg/5 mL oral suspension (MAG-AL) mirtazapine 15 mg tablet 15 mg PO HS #0 tabs 07/13/23 08/06/23 Rx acetaminophen 325 mg tablet 650 mg PO Q6 PRN pain 1-4 / fever 08/06/23 08/06/23 History gabapentin 300 mg capsule 300 mg PO TID 08/06/23 08/06/23 History hydromorphone 2 mg tablet 4 mg PO Q4 PRN pain 5-8 08/06/23 08/06/23 History (Dilaudid) hydromorphone 2 mg tablet 6 mg PO Q4 PRN pain 9-10 08/06/23 08/06/23 History (Dilaudid) menthol 0.44 %-zinc oxide 20.6 % 1 applic topical QS 08/06/23 08/06/23 History topical ointment (Calmoseptine) pantoprazole 40 mg granules 40 mg PO BID 08/06/23 08/06/23 History delayed-release for susp in packet polyethylene glycol 3350 17 17 g PO DAILY 08/06/23 08/06/23 History gram/dose oral powder promethazine 25 mg/mL injection 25 mg IM Q6H PRN N/V 08/06/23 08/06/23 History solution sennosides 17.2 mg tablet 17.2 mg PO DAILY 08/06/23 08/06/23 History sucralfate 1 gram tablet 1 g PO ACHS 08/06/23 08/06/23 History thiamine HCl (vitamin B1) 100 mg 100 mg PO DAILY 08/06/23 08/06/23 History tablet Patient History Medical History Poor historian GERD (gastroesophageal reflux disease) On anticoagulant therapy Kidney stones hx History of COVID-06 May 2022 at a [facility] [place], asymptomatic. Peripheral neuropathy Prostate cancer pt did not acknowledge. Sepsis hx Schizoaffective disorder pt denies JUANCARLOS (acute kidney injury) BPH (benign prostatic hyperplasia) Amputated toe of left foot Cellulitis Osteomyelitis hx Diabetic ulcer of toe hx History of diverticulosis Mild cognitive impairment alert and oriented x3 -- "forgetful about his history" Stroke HX X 2-11/2004 AND 09/2019-F/U DR NÚÑEZ Orthostatic dizziness at times Failure of outpatient treatment Venous stasis ulcers of both lower extremities hx in 2019 Venous (peripheral) insufficiency Recurrent falls Parkinsonism per medical record - pt unaware Intermittent explosive disorder Delusional disorder, somatic type not currently -- pt unaware -- pt alert and oriented x3 at this time. Alcohol abuse pt states he quit "a long time ago" Chronic diastolic CHF (congestive heart failure) Benign colonic polyp Dyslipidemia History of tobacco use Nephrolithiasis Raynauds phenomenon Stage III chronic kidney disease Tubular adenoma of colon History of CVA (cerebrovascular accident) hx in 2004 and 2019 --> follows with Dr Núñez. Migraines hx Acute on chronic renal insufficiency pt unsure Osteoarthritis Diabetes mellitus, type 2 Hypertension Hyperlipidemia Myocardial Infarction 2004--follows with Dr. Mejia Surgical History H/O left cataract extraction S/P CABG (coronary artery bypass graft) 4 [facility] [place]/P sinus surgery History of lumbar discectomy x2 History of carpal tunnel release of both wrists History of open reduction and internal fixation (ORIF) procedure left ankle--hardware in place History of arthroscopy of left knee History of lithotripsy x2 History of colonoscopy History of tonsillectomy and adenoidectomy Status post uvulopalatopharyngoplasty History of right cataract extraction History of heart artery stent (1998) x1 stent History of cardiac cath x4-5, last 05/19/2019 [facility] NO RECENT STENTS Family History Father , age 74 of an AR Diabetes Prostate cancer Colorectal cancer Myocardial infarction Brother Prostate cancer Uncle Colorectal cancer Father Myocardial infarction Mother Myocardial infarction Stroke Other Dementia No family history of adverse response to anesthesia Denies family history of Ovarian cancer Breast cancer Social History Smoking Status: Former smoker Tobacco Type: Cigarettes Age Quit Using Tobacco: 71; packs per day: 3; Cigarettes Per Day: 3; Second Hand Exposure: Yes (hx); Do You Dip or Chew Tobacco: No (quit "a long time ago"); Hx Alcohol Use: No Hx Substance Use: No Preferred Language: Belgian Communication Ability: Effective Communication Ability Comment: Patient with confusion. 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 How many Children do You have: 1 other: [employer] (garbage collection); chemical exposure Feels Safe at Home: Yes Safety Concerns: Feels Safe At This Time Childhood Exposure to Second-Hand Smoke: Yes Diet: regular Dental Care, Regularly: Yes Physical Activity Frequency: Daily Seatbelt Use: always Sunscreen Use: No Assistive Devices: Cane and Walker Review of Systems Review of Systems: All systems reviewed & are unremarkable except as noted in HPI & below Physical Exam Constitutional: WD/WN, vitals as above cooperative and comfortable; not in distress Neck: trachea midline Respiratory: normal respiratory effort, lungs clear to auscultation Auscultation: + diminished lung sounds Cardiovascular: Rate/Rhythm: regular rate and regular rhythm Vessels: posterior tibial pulses present (dopplerable RLE, LLE BKA) and dorsalis pedis pulses present (RLE dopplerable, LLE BKA); + abnormal peripheral pulses (LLE BKA) Extremities: normal capillary refill (RLE only) Gastrointestinal (Abdomen): Inspection/Auscultation: abdomen normal to inspection and normal bowel sounds Percussion/Palpation: abdomen soft; abd omen nontender Musculoskeletal: no cyanosis or clubbing, extremities motor strength 5/5 Extremities: + amputation noted (LLE BKA) Skin: no rashes, warm and dry + incision (LLE BKE incision open to muscle midportion, mild bleeding on dressing) Neurologic: moves all extremities and awake; no focal motor deficits and not confused Psychiatric: Orientation: alert and oriented x 3 Affect: + depressed affect Results & Data Vital Signs (Past 12 Hours) Vital Signs Temp Pulse Pulse Resp BP Pulse Ox O2 Del Method 08/07/23 11:45 36.6 C 87 18 95/59 L 96 Room Air 08/07/23 07:43 36.8 C 60 18 107/74 95 Room Air 08/07/23 03:35 36.8 C 81 22 106/64 96 Room Air 08/07/23 01:00 Room Air 08/07/23 00:50 94 H 08/07/23 00:36 Room Air
--- NOTE | 2023-08-07 12:52 | Hospitalist Progress Note ---
Date of Service August 07, 2023 Assessment & Plan (1) S/P BKA (below knee amputation): (2) Left leg pain: (3) Peripheral arterial occlusive disease: (4) Diabetic neuropathy: (5) Esophagitis: (6) Controlled type 2 diabetes mellitus with neurologic complication, with long- term current use of insulin: Plan Open wound s/p BKA Mechanical fall on prev close wound Vascular surgery consulted Plan is for wound washout and debridement and possibly wound VAC placement in the OR on Can have Diet now Hold Plavix Continue vancomycin and cefepime Received Fentanyl in ER Dilaudid 2 mg PO order now and prn (Listed as an allergy but pt received it on prev admission without side effects. Discharge with Dilaudid 2 mg prn as well) Dilaudid 0.2 mg IV Q4 hr prn CBC am DM 2 with neurologic complications HbA1C: 7 Prev on Insulin but stopped about a year ago Prev admission pt has been declining Insulin Insulin sliding scale ordered CMP am PDA On plavix will hold it for now due to open wound Esophagitis 08/2022 - EGD with esophagitis and duodenal ulcers however, following the EGD, he never took acid reduction with PPI he has had abdominal pains for months and weight loss but has not follow up cont PPI twice daily and carafate Depression Continue Mirtazapine HDL Continue atorvastatin Code: DNR/DNI DVT: hold for now, SCDs Dispo: Telemetry Admission and Anticipated Discharge Date Admission Date: August 06, 2023 Subjective Patient seen and examined, lying quietly in bed, denies any new complaints. Review of Systems Review of Systems: All systems reviewed are negative, apart from the ones contained in the history. Physical Exam Physical Exam: The patient is awake, alert and oriented 3, well developed and well nourished, normocephalic and atraumatic, lying in bed and in no acute distress. HEENT--PERRL, EOMI, mucous membranes and oropharynx mildly dry Neck--supple. No JVD. No bruits. Thyroid normal, trachea midline, no adenopathy. Heart--normal S1 and S2. No murmurs, rubs or gallops. Lungs--clear bilaterally, no respiratory distress, no accessory muscle use. Abdomen--normal bowel sounds and soft. Mild epigastric and left sided abdominal pain Extremities--left BKA Dermatologic--normal skin turgor, normal color, no abnormal lymph nodes, no rash. Neurologic--cranial nerves II through XII grossly intact. Rheumatologic--normal range of motion. Psychiatric--normal affect. Results & Data Results & Data Vital Signs (Past 12 Hours) Vital Signs Temp Pulse Pulse Resp BP Pulse Ox O2 Del Method 08/07/23 11:45 97.9 F 87 18 95/59 L 96 Room Air 08/07/23 07:43 98.2 F 60 18 107/74 95 Room Air 08/07/23 03:35 98.2 F 81 22 106/64 96 Room Air 08/07/23 01:00 Room Air 08/07/23 00:50 94 H PG Care Time/CCT Total # of Minutes Spent Total Time Spent with Patient: Total time spent is greater than 50% in coordination of care (as documented) at patient's floor/unit and/or counseling patient: Coding Level of Care Code 36309 SUB INP/OBS CARE 2/35MIN Diagnoses S/P BKA (below knee amputation) Z89.519 Left leg pain M79.605 Peripheral arterial occlusive disease I77.9 Diabetic neuropathy E11.40 Esophagitis K20.90 Controlled type 2 diabetes mellitus with neurologic complication, with long-term current use of insulin E11.49; Z79.4 Time Spent (min) 35
[2023-08-08 06:39] LABS: Creatinine Clr Calc Pharmacy 74.5 ml/min; Est GFR (African American) 98.4 ml/min; Est GFR (Non-African American) 84.9 ml/min
--- NOTE | 2023-08-08 10:17 | XRay Report ---
XR chest 1V portable HISTORY: 78 years-old Male pre-op preoperative exam COMPARISON: June 18, 2023 TECHNIQUE: AP view of the chest FINDINGS: Cardiac silhouette is enlarged. The in sternotomy. Atherosclerosis of the aorta. Lungs are mildly hyp oinflated. No pneumothorax, pleural effusion, airspace consolidation or pulmonary edema. The bones of the chest appear grossly intact. IMPRESSION: No acute process. ACT 112: Negative or not required by law. The above report was generated using voice recognition software. It may contain grammatical, syntax o r spelling errors. Electronically signed by: Rodríguez Pan M.D. 08/08/2023 10:16 AM
[2023-08-08] MEDS: VANCOMYCIN HCL 1,000 MG in SODIUM CHLORIDE 0.9% 250 ML IV SCH (10:27)
[2023-08-08] MEDS: ONDANSETRON INJ 2 MG/ML 2 ML VIAL IV PRN (12:20)
--- NOTE | 2023-08-08 14:39 | Hospitalist Progress Note ---
Date of Service August 08, 2023 Assessment & Plan (1) S/P BKA (below knee amputation): Plan: Recently completed due to vascular insufficiency. He apparently fell at rehab and suffered wound dehiscence at the left BKA site. Vascular surgery has evaluated the patient and operative intervention is scheduled for tomorrow, August 09. EKG and chest x-ray are pending. (2) Peripheral arterial occlusive disease: Plan: Resulted in recent left BKA procedure (3) Esophagitis: Plan: Stable. Continue PPI therapy (4) Controlled type 2 diabetes mellitus with neurologic complication, with long- term current use of insulin: Plan: ADA diet. Continue current medical management. Sliding scale coverage as necessary Plan Probable return to rehab facility after surgical recovery Admission and Anticipated Discharge Date Admission Date: August 06, 2023 Subjective Alert and oriented. No complaints. EKG and portable chest x-ray ordered in preparation for surgical intervention on the left BKA wound dehiscence tomorrow. He remains on vancomycin and cefepime. He has requested a full liquid diet. Review of Systems 2 Review of Systems: Constitutional-no fever or chills ENT-no blurred vision, no double vision, no epistaxis, no sore throat Respiratory-no cough, no wheezing, no shortness of breath Cardiac-no palpitations, no chest pain, no syncope GI-no nausea, vomiting, diarrhea, melena, hematochezia -no urinary retention, no urinary incontinence, no dysuria, no hematuria Musculoskeletal-no joint pain, no muscle tenderness Skin-no bruising, no rashes, no pruritus Neuro-no isolated weakness, no paresthesia, no weakness Psych-no depression, no anxiety Physical Exam 2 Physical Exam: General-alert and oriented x3, no fever, no chills HEENT-head atraumatic and normocephalic, pupils equal and reactive to light, extraocular muscles intact Neck-no lymphadenopathy or thyromegaly, trachea midline Chest-clear to auscultation. No rales, wheezing or rhonchi Cardiac-regular rate and rhythm, normal S1 and S2 Abdomen-normal bowel sounds, nontender, no hepatosplenomegaly Extremities-no cyanosis, clubbing, or edema. Left BKA site is heavily bandaged Neuro-cranial nerves II through XII intact, motor and sensory function within normal limits, strength symmetrical, no focal deficits Psych-normal affect, normal mood Results & Data Results & Data Vital Signs (Past 12 Hours) Vital Signs Temp Pulse Resp BP Pulse Ox O2 Del Method 08/08/23 11:58 36.7 C 93 H 18 128/73 96 Room Air 08/08/23 11:28 36.7 C 89 18 100/53 L 98 Room Air 08/08/23 07:27 36.7 C 71 18 106/64 96 Room Air 08/08/23 05:00 35.7 C L 69 20 110/64 95 Room Air Laboratory Results 08/07/23 06:03 08/08/23 05:43 PG Care Time/CCT Total # of Minutes Spent Total Time Spent with Patient: Total time spent is greater than 50% in coordination of care (as documented) at patient's floor/unit and/or counseling patient: Coding Level of Care Code 07033 SUB INP/OBS CARE 3/50MIN Diagnoses S/P BKA (below knee amputation) Z89.519 Peripheral arterial occlusive disease I77.9 Esophagitis K20.90 Controlled type 2 diabetes mellitus with neurologic complication, with long-term current use of insulin E11.49; Z79.4
[2023-08-09 06:08] LABS: Basophils # (auto) 0.03 K/uL (0.00-0.20); Basophils % (auto) 0.5 %; Eosinophils # (auto) 0.26 K/uL (0.00-0.50); Eosinophils % (auto) 4.2 %; Hematocrit (blood only) 33.5 % (42.0-52.0); Hemoglobin 11.4 g/dl (14.0-18.0); Immature Granulocytes # (auto) 0.08 K/uL (0.01-0.20); Immature Granulocytes % (auto) 1.3 %; Lymphocytes # (auto) 1.12 K/uL (1.20-3.40); Lymphocytes % (auto) 18.2 %; Mean Corpuscular Hemoglobin 31.6 pg (25.0-34.0); Mean Corpuscular Volume 92.8 fL (80.0-100.0); Mean Platelet Volume 10.8 fL (9.4-12.4); Monocytes # (auto) 0.46 K/uL (0.11-0.59); Monocytes % (auto) 7.5 %; Neutrophils # (auto) 4.21 K/uL (1.40-6.50); Neutrophils % (auto) 68.3 %; Platelet Count 154 K/uL (130-400); RDW Coefficient of Variation 13.6 % (11.5-14.5); RDW Standard Deviation 46.2 fL (36.4-46.3); Red Blood Count 3.61 M/uL (4.70-6.10); White Blood Count 6.16 K/ul (4.8-10.8)
[2023-08-09 06:13] LABS: BUN Creatinine Ratio 36.7 (10-20); Calcium 8.4 mg/dl (8.6-10.3); Creatinine Clr Calc Pharmacy 68.7 ml/min; Est GFR (African American) 95.1 ml/min; Est GFR (Non-African American) 82.1 ml/min; Potassium 4.2 mmol/L (3.5-5.1)
--- NOTE | 2023-08-09 08:19 | Pharmacy Report ---
Pharmacy PK ABX Note - Date of Service August 09, 2023 - Assessment and Plan Assessment 08/09: Vancomycin empiric therapy extended yesterday. Day # 4 vancomycin. Renal function stable. No culture data. Plan for BKA washout, possible debridement and wound vac placement today. 08/07: 78 year old M receiving Vancomycin and Cefepime for treatment of wound dehiscence. * Day #1 of antimicrobial therapy. * PMHx significant for L BKA on 07/11/23. Cultures from that admission grew Group C Strep which was sensitive to penicillin, ampicillin, ceftriaxone and vanc. * Labs/Vitals: Afebrile. SCr 0.91 mg/dL. WBCs 7.8k. MRSA nasal swab negative * Vanc and cefepime both ordered empirically. Plan Vancomycin * Current regimen: 1gm IV q12h * Random level this AM, 17.4mcg/mL (~7.5hr level) predicted to achieve ssAUC 547mg/L.hr- therapeutic. * Continue 1gm IV [id number] level in ~ 48h if therapy continues Pharmacy will continue to follow and will adjust dose/frequency as necessary. Thank you. Pharmacy has transitioned to AUC monitoring for vancomycin. AUC/GAUDENCIO is the preferred PK/PD target and is associated with decreased risk of nephrotoxicity compared to traditional trough targets.
--- NOTE | 2023-08-09 12:44 | Hospitalist Progress Note ---
Date of Service August 09, 2023 Assessment & Plan (1) S/P BKA (below knee amputation): Plan: Recently completed due to vascular insufficiency. He apparently fell at rehab and suffered wound dehiscence at the left BKA site. Vascular surgery has evaluated the patient and operative intervention is scheduled for today, August 09. (2) Peripheral arterial occlusive disease: Plan: Resulted in recent left BKA procedure (3) Esophagitis: Plan: Stable. Continue PPI therapy (4) Controlled type 2 diabetes mellitus with neurologic complication, with long- term current use of insulin: Plan: ADA diet. Continue current medical management. Sliding scale coverage as necessary Plan Probable return to [facility] care after surgical recovery Admission and Anticipated Discharge Date Admission Date: August 06, 2023 Subjective The patient was seen preoperatively today, August 09. Alert and oriented. No distress. Vital signs are stable. Glucose 135. He remains on vancomycin and cefepime, day 4. Anticipate eventual return to Center care at the time of discharge. Review of Systems 2 Review of Systems: Constitutional-no fever or chills ENT-no blurred vision, no double vision, no epistaxis, no sore throat Respiratory-no cough, no wheezing, no shortness of breath Cardiac-no palpitations, no chest pain, no syncope GI-no nausea, vomiting, diarrhea, melena, hematochezia -no urinary retention, no urinary incontinence, no dysuria, no hematuria Musculoskeletal-no joint pain, no muscle tenderness Skin-no bruising, no rashes, no pruritus Neuro-no isolated weakness, no paresthesia, no weakness Psych-no depression, no anxiety Physical Exam 2 Physical Exam: General-alert and oriented x3, no fever, no chills HEENT-head atraumatic and normocephalic, pupils equal and reactive to light, extraocular muscles intact Neck-no lymphadenopathy or thyromegaly, trachea midline Chest-clear to auscultation. No rales, wheezing or rhonchi Cardiac-regular rate and rhythm, normal S1 and S2 Abdomen-normal bowel sounds, nontender, no hepatosplenomegaly Extremities-no cyanosis, clubbing, or edema. Left BKA site is heavily bandaged Neuro-cranial nerves II through XII intact, motor and sensory function within normal limits, strength symmetrical, no focal deficits Psych-normal affect, normal mood Results & Data Results & Data Vital Signs (Past 12 Hours) Vital Signs Temp Pulse Resp BP Pulse Ox O2 Del Method 08/09/23 11:57 36.7 C 79 14 106/65 97 Room Air 08/09/23 07:59 36.6 C 82 20 106/57 L 97 Room Air 08/09/23 03:09 36.6 C 77 18 113/75 97 Room Air Laboratory Results 08/09/23 05:29 08/09/23 05:29 PG Care Time/CCT Total # of Minutes Spent Total Time Spent with Patient: Total time spent is greater than 50% in coordination of care (as documented) at patient's floor/unit and/or counseling patient: Coding Level of Care Code 06416 SUB INP/OBS CARE 2/35MIN Diagnoses S/P BKA (below knee amputation) Z89.519 Peripheral arterial occlusive disease I77.9 Esophagitis K20.90 Controlled type 2 diabetes mellitus with neurologic complication, with long-term current use of insulin E11.49; Z79.4
--- NOTE | 2023-08-09 12:55 | Electrocardiogram Report ---
Test Reason : Blood Pressure : / mmHG Vent. Rate : 083 BPM Atrial Rate : 083 BPM P-R Int : 202 ms QRS Dur : 118 ms QT Int : 420 ms P-R-T Axes : 052 -61 012 degrees QTc Int : 493 ms Normal sinus rhythm with sinus arrhythmia 1st degree AV block Left axis deviation Low voltage QRS Right bundle branch block Inferior infarct , age undetermined Abnormal ECG When compared with ECG of 18-JUN-2023 10:55, Premature atrial complexes are no longer Present Confirmed by Wai Gill ([id number]) on 08/09/2023 12:55:18 PM Referred By: REFERRED SELF Confirmed By:Jaydon Gill
--- NOTE | 2023-08-09 13:31 | History & Physical Bridge Note ---
Date of Service August 09, 2023 History & Physical Bridge Note Patient for washout of left leg amp site. I have discussed the risks options and benefits of the procedure with the patient. The patient understands the risks options and benefits and agrees to the procedure. I have examined the patient, reviewed the History & Physical and in the interval since the performance of the History & Physical I have noted the following changes of clinical significance: no changes noted
[2023-08-09] MEDS ORDERED: ONDANSETRON INJ 2 MG/ML 2 ML VIAL ONE (13:43)
[2023-08-09] MEDS ORDERED: PROPOFOL IV EMULSION 10 MG/ML 20 ML VIAL IV ONE (13:43)
[2023-08-09] MEDS ORDERED: LIDOCAINE 2% 2 ML VIAL/AMP(20MG/ML) INFIL ONE ×3 (13:43→14:45)
[2023-08-09] MEDS ORDERED: ONDANSETRON INJ 2 MG/ML 2 ML VIAL IV PRN (13:59)
[2023-08-09] MEDS ORDERED: PROMETHAZINE HCL 6.25 MG in SODIUM CHLORIDE 0.9% 50 ML IV PRN (13:59)
[2023-08-09] MEDS ORDERED: ATROPINE SULFATE 0.1 MG/ML 10ML SYR IV PRN (13:59)
[2023-08-09] MEDS ORDERED: ePHEDrine sulfate 50 MG/ML AMP IV PRN (13:59)
[2023-08-09] MEDS: LACTATED RINGER'S 1,000 ML IV SCH (14:11)
[2023-08-09] MEDS ORDERED: ePHEDrine sulfate 50 MG/5 ML SYR ONE (14:49)
[2023-08-09] MEDS: fentaNYL citrate PF 100 MCG/2 ML VIAL IV PRN (15:20)
--- NOTE | 2023-08-09 15:26 | Operative Report ---
Post Operative Report Pre & Post Diagnosis Operation Date: 08/09/23 15:00 Pre-Op Diagnosis: dehisced stump Post-Op Diagnosis: dehisced stump I identified the patient and participated in the time-out.: Yes Procedure Operation Date: 08/09/23 15:00 Actual Procedures p Irrigation and closure left dehisced stump(Left) - Duane Sher MD Surgeon Duane Sher MD Floral Assistant none Estimated Blood Loss 5 Findings Consistent with Post-Op Diagnosis Specimens none Anesthesia Type General Complications none Disposition Accompanied Patient To Recovery: No Disposition: Recovery Room Indications This is a 78-year-old male who had a left below-knee amputation. He was in an extended care facility when he got out of bed did not realize he did not have a leg. He fell dehiscing the center portion of the wound.Irrigation debridement possible closure recommended. I have discussed the risks options and benefits of the procedure with the patient. The patient understands the risks options and benefits and agrees to the procedure. Description of Procedure The patient was taken the op room placed spine position. After general anesthesia was accomplished the left lower leg stump was prepped and draped in sterile manner. A timeout was performed and the patient was identified. Using the Pulsavac 2 and half liters of fluid were used to irrigate out the wound. T he wound itself looked good with viable tissue. There is a small area in the midportion which had dehiscence of the soft tissue.I was able to reapproximate this area closing up the little defect. Bleeding was controlled using electrocautery. Hemostasis was obtained the edges which were totally viable were reapproximate using the stapling device. Sterile dressings were applied to the wound. The patient left the operation room in satisfactory condition and tolerated the procedure well. All needle and sponge counts were correct at the end of the procedure. I attest to the content of the Intraoperative Record and any orders documented therein. Any exceptions are noted below.
--- NOTE | 2023-08-09 15:59 | Anesthesiology Progress Note ---
Date of Service August 09, 2023 Anesthesia Post Procedure Vital Signs Vital Signs: Temp Pulse Pulse Resp BP Pulse Ox O2 Del Method 08/09/23 15:57 36.8 C 83 20 107/68 94 Room Air 08/09/23 15:40 36.7 C 74 16 113/56 L 95 Room Air 08/09/23 15:30 76 15 121/60 99 Room Air 08/09/23 15:20 77 14 137/67 99 Oxymask 08/09/23 15:11 36.6 C 64 15 139/61 98 Oxymask 08/09/23 14:07 36.7 C 76 18 106/62 94 Room Air 08/09/23 11:57 36.7 C 79 14 106/65 97 Room Air 08/09/23 07:59 36.6 C 82 20 106/57 L 97 Room Air 08/09/23 03:09 36.6 C 77 18 113/75 97 Room Air 08/08/23 22:42 36.7 C 73 18 96/57 L 94 Room Air 08/08/23 22:00 76 08/08/23 19:36 36.9 C 86 18 105/57 L 94 Room Air O2 Flow Rate 08/09/23 15:57 08/09/23 15:40 08/09/23 15:30 08/09/23 15:20 4 08/09/23 15:11 6 08/09/23 14:07 08/09/23 11:57 08/09/23 07:59 08/09/23 03:09 08/08/23 22:42 08/08/23 22:00 08/08/23 19:36 Pain Intensity Left: Pain Intensity: 8 Transfer of Care Handoff Completed per policy Notes Mental Status: alert / awake / arousable Patient Amnestic to Procedure: Yes Nausea / Vomiting: adequately controlled Pain: adequately controlled Airway Patency, RR, SpO2: stable & adequate BP & HR: stable & adequate Hydration State: stable & adequate Anesthetic Complications: no major complications apparent
[2023-08-09] MEDS: BUPIVACAINE/EPINEPHRINE 0.5% MPF 1:200,000 30 ML VIAL ONE (16:04)
[2023-08-10 06:34] LABS: Basophils # (auto) 0.03 K/uL (0.00-0.20); Basophils % (auto) 0.5 %; Eosinophils # (auto) 0.21 K/uL (0.00-0.50); Eosinophils % (auto) 3.4 %; Hematocrit (blood only) 34.9 % (42.0-52.0); Hemoglobin 11.5 g/dl (14.0-18.0); Immature Granulocytes # (auto) 0.06 K/uL (0.01-0.20); Lymphocytes # (auto) 0.97 K/uL (1.20-3.40); Lymphocytes % (auto) 15.7 %; Mean Corpuscular Hemoglobin 31.3 pg (25.0-34.0); Mean Corpuscular Volume 95.1 fL (80.0-100.0); Mean Platelet Volume 10.7 fL (9.4-12.4); Monocytes # (auto) 0.47 K/uL (0.11-0.59); Monocytes % (auto) 7.6 %; Neutrophils # (auto) 4.42 K/uL (1.40-6.50); Neutrophils % (auto) 71.8 %; Platelet Count 149 K/uL (130-400); RDW Coefficient of Variation 13.7 % (11.5-14.5); RDW Standard Deviation 47.8 fL (36.4-46.3); Red Blood Count 3.67 M/uL (4.70-6.10); White Blood Count 6.16 K/ul (4.8-10.8)
[2023-08-10 06:51] LABS: BUN Creatinine Ratio 27.7 (10-20); Calcium 8.4 mg/dl (8.6-10.3); Creatinine Clr Calc Pharmacy 61.3 ml/min; Est GFR (African American) 82.8 ml/min; Est GFR (Non-African American) 71.4 ml/min; Potassium 4.3 mmol/L (3.5-5.1)
--- NOTE | 2023-08-10 10:59 | Surgery Progress Note ---
Date of Service August 10, 2023 Assessment & Plan (1) Surgical wound dehiscence: Plan: Pt now s/p LLE BKA debridement, doing well post op. OK for d/c to rehab when medically stable. Can remove dressing tomorrow, no further dressing changes required unless there is drainage, then just dry dressing. Will see in office in 2 weeks for staple removal. Admission and Anticipated Discharge Date Admission Date: August 06, 2023 Subjective 78 yom POD #1 after irrigation and debridement of LLE BKA, seen in f/u today. Pt states post op pain, but ok with medication. No other new complaints. Review of Systems Review of Systems: All systems reviewed & are unremarkable except as noted in HPI & below Physical Exam Constitutional: WD/WN, vitals as above Musculoskeletal: no cyanosis or clubbing, extremities motor strength 5/5 Extremities: + amputation noted (LLE BKA, dressing in place) Skin: no rashes, warm and dry + incision (LLE BKA dressing in place) Neurologic: moves all extremities and awake; no focal motor deficits and not confused Psychiatric: Orientation: alert and oriented x 3 Affect: + depressed affect Results & Data Vital Signs (Past 12 Hours) Vital Signs Temp Pulse Resp BP Pulse Ox O2 Del Method 08/10/23 07:53 36.6 C 89 17 127/68 97 Room Air 08/10/23 02:37 36.5 C 73 18 104/65 97 Room Air 08/09/23 23:28 36.5 C 75 18 104/60 97 Room Air
--- NOTE | 2023-08-10 14:55 | Hospitalist Progress Note ---
Date of Service August 10, 2023 Assessment & Plan (1) S/P BKA (below knee amputation): Plan: Recently completed due to vascular insufficiency. He apparently fell at rehab and suffered wound dehiscence at the left BKA site. Postoperative day #1 after repair of wound dehiscence. Vascular surgery entry noted. He can return to [facility] care tomorrow, August 11 (2) Peripheral arterial occlusive disease: Plan: Resulted in recent left BKA procedure (3) Esophagitis: Plan: Stable. Continue PPI therapy (4) Controlled type 2 diabetes mellitus with neurologic complication, with long- term current use of insulin: Plan: ADA diet. Continue current medical management. Sliding scale coverage as necessary Plan Anticipate return to Center care tomorrow, August 11 Admission and Anticipated Discharge Date Admission Date: August 06, 2023 Subjective Alert and oriented. No acute problems. He is medically stable. Postoperative day 1 after repair of left BKA wound dehiscence. Antibiotics de-escalated to intravenous Ancef. Vascular surgery entry noted. Probable discharge back to Center care tomorrowAugust 11 Review of Systems 2 Review of Systems: Constitutional-no fever or chills ENT-no blurred vision, no double vision, no epistaxis, no sore throat Respiratory-no cough, no wheezing, no shortness of breath Cardiac-no palpitations, no chest pain, no syncope GI-no nausea, vomiting, diarrhea, melena, hematochezia -no urinary retention, no urinary incontinence, no dysuria, no hematuria Musculoskeletal-no joint pain, no muscle tenderness Skin-no bruising, no rashes, no pruritus Neuro-no isolated weakness, no paresthesia, no weakness Psych-no depression, no anxiety Physical Exam 2 Physical Exam: General-alert and oriented x3, no fever, no chills HEENT-head atraumatic and normocephalic, pupils equal and reactive to light, extraocular muscles intact Neck-no lymphadenopathy or thyromegaly, trachea midline Chest-clear to auscultation. No rales, wheezing or rhonchi Cardiac-regular rate and rhythm, normal S1 and S2 Abdomen-normal bowel sounds, nontender, no hepatosplenomegaly Extremities-no cyanosis, clubbing, or edema. Left BKA site is heavily bandaged Neuro-cranial nerves II through XII intact, motor and sensory function within normal limits, strength symmetrical, no focal deficits Psych-normal affect, normal mood Results & Data Results & Data Vital Signs (Past 12 Hours) Vital Signs Temp Pulse Resp BP Pulse Ox O2 Del Method 08/10/23 11:55 37.7 C H 74 22 93/59 L 97 Room Air 08/10/23 07:53 36.6 C 89 17 127/68 97 Room Air Laboratory Results 08/10/23 06:01 08/10/23 06:01 PG Care Time/CCT Total # of Minutes Spent Total Time Spent with Patient: Total time spent is greater than 50% in coordination of care (as documented) at patient's floor/unit and/or counseling patient: Coding Level of Care Code 43111 SUB INP/OBS CARE 3/50MIN Diagnoses S/P BKA (below knee amputation) Z89.519 Peripheral arterial occlusive disease I77.9 Esophagitis K20.90 Controlled type 2 diabetes mellitus with neurologic complication, with long-term current use of insulin E11.49; Z79.4
[2023-08-10] MEDS: ceFAZolin 2000MG 2,000 MG/15 ML SYR IV SCH (15:55)
[2023-08-10] MEDS: HYDROmorphone HCL 2 MG TAB PO PRN (19:49)
[2023-08-11 06:17] LABS: Basophils # (auto) 0.02 K/uL (0.00-0.20); Basophils % (auto) 0.3 %; Eosinophils # (auto) 0.22 K/uL (0.00-0.50); Eosinophils % (auto) 3.2 %; Hematocrit (blood only) 33.3 % (42.0-52.0); Hemoglobin 11.4 g/dl (14.0-18.0); Immature Granulocytes # (auto) 0.03 K/uL (0.01-0.20); Immature Granulocytes % (auto) 0.4 %; Lymphocytes # (auto) 0.97 K/uL (1.20-3.40); Lymphocytes % (auto) 14.2 %; Mean Corpuscular Hemoglobin 31.6 pg (25.0-34.0); Mean Corpuscular Hgb Conc 34.2 g/dL (32.0-36.0); Mean Corpuscular Volume 92.2 fL (80.0-100.0); Mean Platelet Volume 10.5 fL (9.4-12.4); Monocytes # (auto) 0.45 K/uL (0.11-0.59); Monocytes % (auto) 6.6 %; Neutrophils # (auto) 5.13 K/uL (1.40-6.50); Neutrophils % (auto) 75.3 %; Platelet Count 150 K/uL (130-400); RDW Coefficient of Variation 13.6 % (11.5-14.5); RDW Standard Deviation 45.6 fL (36.4-46.3); Red Blood Count 3.61 M/uL (4.70-6.10); White Blood Count 6.82 K/ul (4.8-10.8)
[2023-08-11 06:36] LABS: BUN Creatinine Ratio 33.3 (10-20); Calcium 8.5 mg/dl (8.6-10.3); Creatinine Clr Calc Pharmacy 68.7 ml/min; Est GFR (African American) 95.1 ml/min; Est GFR (Non-African American) 82.1 ml/min; Potassium 4.2 mmol/L (3.5-5.1)
--- NOTE | 2023-08-11 12:14 | Discharge Summary ---
Date of Service August 11, 2023 Admission HPI Per Admitting Provider 78 y/o male with PMH of PDA, DM2 with neuropathy, s/p BKA, GERD here after a fall. Patient had a BKA with Dr. Gómez on (07/11/23) due to osteomyelitis. Today he was trying to stand up by his own to turn off the lights when he lost balance and fall over the wound. The wound opened and he stared to bleed from it. Patient denied any dizziness, LOC, hitting his head, tunnel vision or any other symptoms. He refers profound bleeding form the open wound. At the moment of evaluation wound was pack with clean bandages, was prev clean by the ED physician. No active bleeding at the moment of evaluation. He does states some dizziness now and pain 10/10. Tachypnea was noted, he attributed to the pain. Sunny Sher was contacted by the ER provider. Plan for admission and prob OR the day after tomorrow to close the wound. ED course: -Fentanyl 50 mcg once for pain - Ancef 1,000 mg once Principal Diagnosis Mechanical fall, wound dehiscence of recent left BKA site Discharge Exam General-alert and oriented x3, no fever, no chills HEENT-head atraumatic and normocephalic, pupils equal and reactive to light, extraocular muscles intact Neck-no lymphadenopathy or thyromegaly, trachea midline Chest-clear to auscultation. No rales, wheezing or rhonchi Cardiac-regular rate and rhythm, normal S1 and S2 Abdomen-normal bowel sounds, nontender, no hepatosplenomegaly Extremities-no cyanosis, clubbing, or edema. Left BKA site is heavily bandaged Neuro-cranial nerves II through XII intact, motor and sensory function within normal limits, strength symmetrical, no focal deficits Psych-normal affect, normal mood Discharge Data Allergies Allergy/AdvReac Type Severity Reaction Status Date / Time morphine AdvReac Severe "STOPS MY Verified 08/06/23 21:04 HEART" diazepam AdvReac Intermediate HALLUCINATE Verified 08/06/23 21:04 S hydromorphone [From Dilaudid] AdvReac Intermediate unresponsiv Verified 08/06/23 21:04 eness propoxyphene AdvReac Intermediate DRUG Verified 08/06/23 21:04 INTOLERANCE trazodone AdvReac Intermediate GI UPSET Verified 08/06/23 21:04 Consultations 08/06/23 20:31 ED Decision to Admit Stat 08/06/23 22:57 Consult Vascular Surgery Routine Procedures Performed Operation Date: 08/09/23 15:00 Actual Procedures p Irrigation and closure left dehisced stump(Left) - Duane Sher MD Hospital Course (1) S/P BKA (below knee amputation): Recently completed due to vascular insufficiency. He apparently fell at rehab and suffered wound dehiscence at the left BKA site. Postoperative day #2 after repair of wound dehiscence. Vascular surgery entry noted. He can return to Center care today, August 11 (2) Peripheral arterial occlusive disease: Resulted in recent left BKA procedure (3) Esophagitis: Stable. Continue PPI therapy (4) Controlled type 2 diabetes mellitus with neurologic complication, with long- term current use of insulin: ADA diet. Continue current medical management. Sliding scale coverage as necessary Plan Return to Center care today, August 11 Total Time Total Time Spent Total Time Spent (In Minutes): 45 minutes Discharge Plan Discharge Items Patient Disposition: Transfer Intermediate Fac Reason For Visit: OPEN WOUND Discharge Diagnosis: Mechanical fall with wound dehiscence of recent left BKA site Condition on Discharge: Good Activity: Resume your previous activity Non-emergency contact: Primary Care Provider Call non-emergency contact if: you have any medication questions and your symptoms worsen Follow-up/Referrals: Pro,Fox Frey MD [Primary Care Provider] - Diet: Carb Consistent or DM2 and Heart Healthy Addtl Attending Provider Instructions: Take Keflex oral antibiotic for 3 more days. Follow-up with surgeon, Dr. Sher, as directed Pending Studies at Discharge: No Stand-Alone Forms: My [facility] Skilled Items Patient informed of condition?: Yes DNR: No Discharge Level of Care: Skilled Communicable Disease: No Discharge Prognosis: Stable Lines: None Urinary Catheter: No Medications and DC Order Prescriptions: New cephalexin 500 mg capsule 500 mg PO TID Qty: 10 0RF Continued clopidogrel 75 mg tablet 75 mg PO DAILY Qty: 90 1RF Hold Instructions: Home Medication placed on hold at Doctor's office cyanocobalamin (vitamin B-12) [Vitamin B-12] 1,000 mcg tablet 1,000 mcg PO DAILY Hold Instructions: Home Medication placed on hold at Doctor's office Centrum Silver Men 300-600-300 mcg Tablet 1 tab PO DAILY Hold Instructions: Home Medication placed on hold at Doctor's office atorvastatin [Lipitor] 40 mg tablet 40 mg PO DAILY Hold Instructions: Home Medication placed on hold at Doctor's office mirtazapine 15 mg Tablet 15 mg PO HS Qty: 0 0RF MAG-AL 200-200 mg/5 mL Suspension 15 ml PO Q4H PRN (Reason: dyspepsia) Qty: 0 0RF acetaminophen 325 mg Tablet 650 mg PO Q6 MDD 3g PRN (Reason: pain 1-4 / fever) menthol-zinc oxide [Calmoseptine] 0.44-20.6 % Ointment 1 applic TOPICAL QS Rx Instructions: apply to buttocks & scrotum hydromorphone [Dilaudid] 2 mg tablet 4 mg PO Q4 PRN (Reason: pain 5-8) hydromorphone [Dilaudid] 2 mg tablet 6 mg PO Q4 PRN (Reason: pain 9-10) gabapentin 300 mg Capsule 300 mg PO TID pantoprazole [address] For Susp In Packet 40 mg PO BID Rx Instructions: [id number] then take daily starting08/29/23 polyethylene glycol 3350 17 gram/dose Powder 17 g PO DAILY sennosides 17.2 mg Tablet 17.2 mg PO DAILY sucralfate 1 gram Tablet 1 g PO ACHS Rx Instructions: take for 1 month starting 07/17/23 thiamine HCl (vitamin B1) 100 mg Tablet 100 mg PO DAILY promethazine 25 mg/mL Solution 25 mg IM Q6H PRN (Reason: N/V) Discharge Orders: Discharge Order (Routine); Ordered 08/11/23 Ordered By: Wyatt Quinones Admission Data Admit Date/Time: 08/06/23 21:18 Attending Provider: Wyatt Quinones Admit Provider: Latonia Mo Primary Care Provider: Fox Moran Other Providers: Julius Harrison; Bryan Damian; Duane Sher Coding Level of Care Code 08816 INP/OBS DISCH >30 MIN Diagnoses S/P BKA (below knee amputation) Z89.519 Peripheral arterial occlusive disease I77.9 Esophagitis K20.90 Controlled type 2 diabetes mellitus with neurologic complication, with long-term current use of insulin E11.49; Z79.4
[2023-08-29] MEDS ORDERED: PANTOprazole 40 MG TAB PO SCH (09:00)
== END 2023-08-11 15:12 | DRG 501 ==
LOC: ED 19:07 → EDINP 21:18 → SUATTDRO 21:18 → EDINP 08-07 00:36 → 2E 08-07 01:13